=== PATIENT | male | born 1930 | race Caucasian/White ===

== ENCOUNTER 2016-09-30 16:55 | Inpatient (IN) | payer MEDICARE ==
[~2016-09-30] VITALS: Ht 182.9 cm; Wt 122.0 kg
[~2016-09-30 16:55] MED LIST: ACET325T9 PO; ASPI81TA2 PO; BISA10SU55 RC; CARB1TAB2 PO; GABA800T2 PO; GUAI-297 PO; HYDR-2666 PO; LEVE250T4 PO; LEVE500T6 PO; LEVO100T5 PO; MAG355OR11 PO; MAGN400O4 PO; METO25TA9 PO; PRAM0.255 PO; PRAM0.5T PO; SIMV20TA3 PO; TAMS0.4C97 PO; TRAM100T PO; TRAM50TA PO; TRAZ50TA15 PO
[2016-09-30] MEDS ORDERED: IV RINGERS,LACTATED 1000ML 1,000 ML IV SCH (17:28)
[2016-09-30] MEDS ORDERED: ONDANSETRON PF 4 MG/2 ML VIAL. IV ONE (17:30)
--- NOTE | 2016-09-30 17:34 | PHYS DOC ---
Past Medical History Past Medical History: A-Fib, GERD, Other Additional Past Medical Histor: Parkinson, bowel obstruction(12/2015) Past Surgical History: Other Additional Past Surgical Histo: bowel Alcohol Use: None Drug Use: None Adult General Chief Complaint Chief Complaint: NAUSEA/VOMITING/DIARRHA HPI HPI Patient is a 86 year old male who presents by EMS from [facility] with nausea, vomiting, abdominal pain and distention, and a couple of diarrheal stools, which started fairly suddenly about noon today. He is complaining of quite a bit of abdominal pain. No one else there is sick. He has not had fever or chills. He has had a bowel obstruction in the past he states. PCP Dr. Richard Watson Review of Systems Review of Systems Constitutional: Denies fever or chills [] Eyes: Denies change in visual acuity, redness, or eye pain [] HENT: Denies nasal congestion or sore throat [] Respiratory: Denies cough or shortness of breath [] Cardiovascular: Denies chest pain GI: As in history of present illness : Denies dysuria or hematuria [] Musculoskeletal: Denies back pain or joint pain [] Integument: Denies rash or skin lesions [] Neurologic: Denies headache, focal weakness or sensory changes [] Current Medications Current Medications Current Medications Medications (Trade) Dose Ordered Sig/Liam Start Time Stop Time Status Last Admin Dose Admin Fentanyl Citrate 50 mcg 50 mcg PRN Q15MIN PRN 09/30/16 17:30 10/01/16 17:29 09/30/16 19:35 50 MCG Lactated Ringer's (Iv Lactated Ringers) 1,000 ml @ 100 mls/hr Q10H 09/30/16 17:28 10/01/16 03:27 09/30/16 19:35 100 MLS/HR Ondansetron HCl (Zofran) 4 mg 1X ONCE 09/30/16 17:30 09/30/16 17:32 DC 09/30/16 17:44 4 MG Allergies Allergies Allergies Coded Allergies Type Severity Reaction Last Updated Verified No Known Medication Allergies Allergy Unknown 01/21/16 Yes Physical Exam Physical Exam Constitutional: Alert, mentating normally, appears uncomfortable, color good HENT: Normocephalic, atraumatic, bilateral external ears normal, nose normal. [] Eyes: conjunctiva normal, no discharge. [] Neck: Normal range of motion, no tenderness, supple, no stridor. [] Cardiovascular:Heart rate regular rhythm, no murmur [] Lungs & Thorax: Bilateral breath sounds clear to auscultation [] Abdomen: Significantly distended, increased tympany throughout, hyperactive bowel sounds, obstructive-sounding, tender to palpation throughout, nonlocalized , no rebound or guarding, no peritoneal findings Skin: Warm, dry, no erythema, no rash. [] Extremities: No tenderness, no cyanosis, no clubbing, ROM intact, trace pitting edema of both ankles Neurologic: Alert and oriented X 3, normal motor function, normal sensory function, no focal deficits noted. [] Current Patient Data Vital Signs Vital Signs Date Time Temp Pulse Resp B/P Pulse Ox O2 Delivery O2 Flow Rate FiO2 09/30/16 19:00 64 22 167/82 96 Room Air 09/30/16 17:45 3.0 09/30/16 17:00 98.4 98.4 Lab Values Laboratory Tests Test 09/30/16 17:25 White Blood Count 12.1x10^3/uL (4.0-11.0) H Red Blood Count 3.64x10^6/uL (4.30-5.70) L Hemoglobin 11.7g/dL (13.0-17.5) L Hematocrit 36.3% (39.0-53.0) L Mean Corpuscular Volume 100fL (79-100) Mean Corpuscular Hemoglobin 32pg (25-35) Mean Corpuscular Hemoglobin Concent 32g/dL (31-37) Red Cell Distribution Width 15.8% (11.5-14.5) H Platelet Count 251x10^3/uL (140-400) Neutrophils (%) (Auto) 86% (31-73) H Lymphocytes (%) (Auto) 7% (24-48) L Monocytes (%) (Auto) 5% (0-9) Eosinophils (%) (Auto) 1% (0-3) Basophils (%) (Auto) 0% (0-3) Neutrophils # (Auto) 10.4x10^3uL (1.8-7.7) H Lymphocytes # (Auto) 0.9x10^3/uL (1.0-4.8) L Monocytes # (Auto) 0.6x10^3/uL (0.0-1.1) Eosinophils # (Auto) 0.1x10^3/uL (0.0-0.7) Basophils # (Auto) 0.0x10^3/uL (0.0-0.2) Segmented Neutrophils % 69% (35-66) H Band Neutrophils % 13% (0-9) H Lymphocytes % 7% (24-48) L Atypical Lymphocytes % (Manual) 4% (0-0) H Monocytes % 5% (0-10) Eosinophils % 2% (0-5) Platelet Estimate Adequate (ADEQUATE) Anisocytosis Slight Ovalocytes Few Prothrombin Time 13.2SEC (11.7-14.0) Prothrombin Time INR 1.1 (0.8-1.1) PTT 31SEC (24-38) Sodium Level 142mmol/L (136-145) Potassium Level 3.8mmol/L (3.5-5.1) Chloride Level 104mmol/L (98-107) Carbon Dioxide Level 30mmol/L (21-32) Anion Gap 8 (6-14) Blood Urea Nitrogen 21mg/dL (8-26) Creatinine 1.8mg/dL (0.7-1.3) H Estimated GFR (Cockcroft-Gault) 36.0 BUN/Creatinine Ratio 12 (6-20) Glucose Level 147mg/dL (70-99) H Calcium Level 8.6mg/dL (8.5-10.1) Total Bilirubin 0.3mg/dL (0.2-1.0) Aspartate Amino Transferase (AST) 19U/L (15-37) Alanine Aminotransferase (ALT) 15U/L (16-63) L Alkaline Phosphatase 137U/L (46-116) H Total Protein 7.7g/dL (6.4-8.2) Albumin 3.4g/dL (3.4-5.0) Albumin/Globulin Ratio 0.8 (1.0-1.7) L Lipase 117U/L (73-393) Laboratory Tests 09/30/16 17:25 Laboratory Tests 09/30/16 17:25 EKG EKG [] Radiology/Procedures Radiology/Procedures CT scan of the abdomen and pelvis interpreted by the radiologist. Consistent with partial small bowel obstruction, no perforation or abscess identified. [] Course & Med Decision Making Course & Med Decision Making Pertinent Labs and Imaging studies reviewed. (See chart for details) 86-year-old male with fairly acute onset of nausea, vomiting, significant abdominal pain, distention, a couple of small loose stools. Clinically suspect small bowel obstruction. We will start some IV pain and nausea medicines and get a CT scan of his abdomen and pelvis. He is agreeable to that plan. CT scan does show a partial small bowel obstruction. The patient continued to have some vomiting in the ED despite IV antiemetics. I feel he might do better with NG tube placement, I discussed that with the patient and he is agreeable. I discussed the case with the patient's PCP, Dr. Watson, who will admit him. I wrote bridge orders. [] Dragon Disclaimer Dragon Disclaimer This electronic medical record was generated, in whole or in part, using a voice recognition dictation system. Departure Departure Impression: Primary Impression: SBO (small bowel obstruction) Disposition: 09 ADMITTED INPATIENT Admitting Physician: Richard Watson Condition: STABLE Referrals: RICHARD WATSON MD (PCP) JOSE ROMERO MD Sep 30, 2016 17:33
[2016-09-30 17:40] LABS: BASO % 0 % (0-3); EOS % 1 % (0-3); HEMATOCRIT 36.3 % (39.0-53.0); HEMOGLOBIN 11.7 g/dL (13.0-17.5); LYMPH # 0.9 x10^3/uL (1.0-4.8); LYMPH % 7 % (24-48); MEAN CORPUSCULAR HEMOGLOBIN 32 pg (25-35); MEAN CORPUSCULAR HGB CONC 32 g/dL (31-37); MEAN CORPUSCULAR VOLUME 100 fL (79-100); MONO % 5 % (0-9); NEUT % 86 % (31-73); PLATELET COUNT 251 x10^3/uL (140-400); RED BLOOD COUNT 3.64 x10^6/uL (4.30-5.70); RED CELL DISTRIBUTION WIDTH 15.8 % (11.5-14.5); WHITE BLOOD COUNT 12.1 x10^3/uL (4.0-11.0)
[2016-09-30] MEDS: FENTANYL PF 100 MCG/2 ML VIAL. IV PRN ×3 (17:45→22:08)
[2016-09-30 17:48] LABS: CALCIUM 8.6 mg/dL (8.5-10.1); CREATININE 1.8 mg/dL (0.7-1.3); INR 1.1 (0.8-1.1); POTASSIUM 3.8 mmol/L (3.5-5.1); PROTHROMBIN TIME PATIENT 13.2 SEC (11.7-14.0)
[2016-09-30 17:55] LABS: ALBUMIN 3.4 g/dL (3.4-5.0); ALBUMIN/GLOBULIN RATIO 0.8 (1.0-1.7); TOTAL BILIRUBIN 0.3 mg/dL (0.2-1.0); TOTAL PROTEIN 7.7 g/dL (6.4-8.2)
--- NOTE | 2016-09-30 18:29 | RAD ---
PROCEDURE CT abdomen and pelvis without intravenous contrast. HISTORY Nausea, vomiting, distention, pain. Suspect bowel obstruction. TECHNIQUE Helical CT of the abdomen and pelvis was performed without intravenous or oral contrast. Exposure: One or more of the following individualized dose reduction techniques were utilized for this examination: 1. Automated exposure control. 2. Adjustment of the mA and/or kV according to patient size. 3. Use of iterative reconstruction technique. COMPARISON CT abdomen pelvis December 02, 2015. FINDINGS Evaluation of solid organs is limited by lack of intravenous contrast. Evaluation of enteric structures may be limited by lack of oral contrast. Moderate hiatal hernia is seen. Liver, spleen, pancreas, and bilateral adrenal glands are unremarkable. Gallbladder is absent. Moderate right and moderate-severe left atrophy of the kidneys is similar to previous study. No obstruction is seen. Urinary bladder is unremarkable. Prostate is surgically absent. No free air or free fluid is identified. There are dilated small bowel loops measuring up to 4 centimeters in diameter. Gas is seen within the terminal ileum which contains gas and stool. There may be a relative transition point in the right lower quadrant involving the mid to distal ileum. Degenerative changes are present in spine. Penile prosthesis is seen. IMPRESSION 1. There is evidence of partial small bowel obstruction with dilated small bowel loops seen. There may be a relative transition point involving the mid to distal ileum. No perforation or abscess is identified at this time. Electronically signed by: Eliel Gutierrez MD (Sep 30, 2016 18:28:00)
[2016-09-30] MEDS ORDERED: ONDANSETRON PF 4 MG/2 ML VIAL. IV PRN (19:15)
[2016-09-30] MEDS ORDERED: FENTANYL PF 100 MCG/2 ML VIAL. IV ONE (19:15)
[2016-09-30] MEDS ORDERED: ACETAMINOPHEN 650 MG SUPP.RECT. PR PRN (19:30)
[2016-09-30] MEDS ORDERED: IV NORMAL SALINE 1000ML BAG 1,000 ML IV SCH (19:30)
[2016-09-30] MEDS ORDERED: BENZOCAINE ONE 20% MUCOSAL SPRAY. (19:51)
[2016-09-30 19:53] LABS: % EOS 2 % (0-5)
[2016-09-30 19:55] LABS: ANISOCYTOSIS SLIGHT; OVALOCYTES FEW; PLT ESTIMATE ADEQUATE (ADEQUATE)
[2016-09-30 21:10] VITALS: BP 179/92
--- NOTE | 2016-09-30 21:37 | RAD ---
PROCEDURE Abdomen radiograph. HISTORY NG tube placement. COMPARISON December 08, 2015. FINDINGS AP portable supine abdomen radiograph. Right-side of abdomen as well the pelvis has been excluded from the examination. Esophagogastric tube is present with tip projecting at the distal esophagus. Advancement is advised. IMPRESSION Esophagogastric tube tip projects at the distal esophagus. Advancement is advised. Electronically signed by: Eliel Gutierrez MD (Sep 30, 2016 21:36:11)
--- NOTE | 2016-09-30 21:55 | ACF ---
Admission Forms Criteria INTESTINAL OBSTRUCTION Clinical Indications for Admission to Inpatient Care (Place 'X' for any and all applicable criteria): Admission is indicated for ANY ONE of the following (1)(2)(3)(4)(5): [X ]I. Partial bowel obstruction [ ]II. Complete bowel obstruction Extended stay beyond goal length of stay may be needed for(1)(4)(12(: [ ]a) Identified etiology (eg, hernia, volvulus, cancer with obstruction) requiring intervention [ ]b) Gallstone ileus [ ]c) Surgical intervention [ ]d) Acute comorbid illness (eg, electrolyte imbalance, hypovolemia, renal failure) The original [employer] content created by [employer] has been revised. The portions of the content which have been revised are identified through the use of italic text or in bold, and [facility] [employer] has neither reviewed nor approved the modified material. All other unmodified content is copyright [employer]. Please see references footnoted in the original [employer] edition 2015 [employer]ISH [employer] Sep 30, 2016 21:55
[2016-09-30] MEDS: LEVETIRACETAM 500 MG in IV NORMAL SALINE 100ML 100 ML IV SCH (22:02)
[2016-09-30] MEDS: MORPHINE SULFATE 2 MG/ML DISP.SYRIN. IV PRN (23:18)
[2016-09-30 23:47] VITALS: BP 158/93
[2016-10-01] MEDS: FENTANYL PF 100 MCG/2 ML VIAL. IV PRN ×4 (00:20→16:54)
[2016-10-01] MEDS: POTASSIUM CL 20MEQ D5-0.45NACL 1,000 ML IV SCH ×4 (00:23→18:54)
[2016-10-01 03:00] VITALS: BP 131/69
[2016-10-01 04:42] LABS: BASO % 0 % (0-3); EOS % 0 % (0-3); HEMATOCRIT 34.1 % (39.0-53.0); HEMOGLOBIN 11.2 g/dL (13.0-17.5); LYMPH # 0.9 x10^3/uL (1.0-4.8); LYMPH % 13 % (24-48); MEAN CORPUSCULAR HEMOGLOBIN 32 pg (25-35); MEAN CORPUSCULAR HGB CONC 33 g/dL (31-37); MEAN CORPUSCULAR VOLUME 99 fL (79-100); MONO % 6 % (0-9); NEUT % 81 % (31-73); PLATELET COUNT 256 x10^3/uL (140-400); RED BLOOD COUNT 3.46 x10^6/uL (4.30-5.70); WHITE BLOOD COUNT 7.5 x10^3/uL (4.0-11.0)
[2016-10-01 04:59] LABS: CALCIUM 8.2 mg/dL (8.5-10.1); CREATININE 1.7 mg/dL (0.7-1.3); GFR 38.5
[2016-10-01] MEDS: MORPHINE SULFATE 2 MG/ML DISP.SYRIN. IV PRN ×4 (05:17→20:01)
[2016-10-01 07:00] VITALS: BP 157/88
--- NOTE | 2016-10-01 08:24 | RAD ---
Portable chest, 09/30/2016: History: Bowel obstruction Comparison is made to a study from 01/18/2016. Spinal stimulator leads extend into the lower thoracic spinal canal. An NG tube has been placed extending into the distal esophagus. The heart is enlarged. A hiatal hernia is present. There is calcific plaquing of aorta. The pulmonary vascularity is within normal limits. There are prominent epicardial fat pads, contributing to the density seen laterally in the left base. There are additional mild streaky basilar opacities compatible with atelectasis. The upper lung sim are clear. IMPRESSION: 1. The tip of the NG tube lies in the distal esophagus. 2. Cardiomegaly without vascular congestion. 3. Mild streaky bibasilar atelectasis
--- NOTE | 2016-10-01 08:33 | PDOC ---
Provider Note Provider Note history and physical dictated # [id number] RICHARD NJ MD Oct 01, 2016 08:33
[2016-10-01] MEDS: LEVETIRACETAM 500 MG in IV NORMAL SALINE 100ML 100 ML IV SCH ×2 (08:47→21:14)
[2016-10-01] MEDS: ENOXAPARIN 40 MG/0.4 ML DISP.SYRIN. SQ SCH (08:47)
--- NOTE | 2016-10-01 09:47 | HP ---
ADMIT DATE: 09/30/2016 HISTORY OF PRESENT ILLNESS: The patient is an 86-year-old white male who noted a one-day history of nausea, vomiting, abdominal pain, abdominal distention and sought help at the [facility] Emergency Room. CAT scan was compatible with a partial distal small-bowel obstruction. An NG tube was placed. He was started on IV fluids and IV analgesics and is n.p.o. and subsequently admitted to the hospital for further evaluation and treatment. He does have a history of a seizure disorder treated with Keppra, Parkinson disease, hypothyroidism, hypertension, chronic kidney disease and peripheral neuropathy. He has had bowel obstructions in the past and in fact in 1995 had a release of a small-bowel obstruction secondary to adhesions and also had a ventral abdominal hernia repair and release of small-bowel obstruction in 2008. He is therefore admitted for further evaluation of his partial small-bowel obstruction. He said he had two loose stools yesterday. ALLERGIES AND INTOLERANCES: CIPRO, NITROGLYCERIN AND PAXIL. MEDICATIONS: Include aspirin 81 mg every day, furosemide 20 mg every day, gabapentin 600 mg q.i.d., Keppra 250 mg b.i.d., levothyroxine 100 mcg every day, metoprolol succinate 25 mg every day, Mirapex 0.5 mg t.i.d., simvastatin 20 mg every day, Sinemet-CR 50/200 one tablet t.i.d., tamsulosin 0.4 mg everyday, tramadol 50 mg q.i.d. PAST MEDICAL HISTORY: Significant for hypertension, hypothyroidism, peripheral neuropathy, seizure disorder, Parkinson disease, depression, chronic kidney disease stage III, deep vein thrombosis in 2008, prostate cancer and pernicious anemia. He had a radical prostatectomy in 1993. 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 He had release of small-bowel obstruction secondary to adhesions in 1995 and a ventral abdominal hernia repair and release of small-bowel obstruction in 2008 and a bilateral orchiectomy in 2006, cardiac catheterization showing normal coronary arteries in 1997, an appendectomy in 1995, lumbar laminectomy in 2006. SOCIAL HISTORY: Lives in assisted living facility, uses a walker, does not drink alcohol nor does he smoke cigarettes. FAMILY HISTORY: Noncontributory. REVIEW OF SYSTEMS: GENERAL: There has been no fever, chills or sweats in the last 3 days. CARDIOVASCULAR: No chest pain. PULMONARY: No cough or shortness of breath. GASTROINTESTINAL: Nausea, vomiting, abdominal pain and abdominal distention. SKIN: No rashes. NEUROLOGIC: No focal weakness. He has Parkinson's disease. ENDOCRINE: No diabetes mellitus. Rest of systems reviewed is negative except as stated in history of present illness. PHYSICAL EXAMINATION: VITAL SIGNS: His temperature is 99 degrees, pulse is 98, respiratory rate 20, blood pressure 131/69, oxygen saturation 94% on 2 liters per nasal cannula. HEENT: Eyes: Gaze is conjugate. Extraocular muscles are intact. Mouth: Tongue is midline. NECK: There is no cervical lymphadenopathy or thyroid enlargement. HEART: Reveals an S1, S2. There is no S3 or murmur. LUNGS: Clear anteriorly. ABDOMEN: Distended, bowel sounds are minimal. His abdomen is tympanitic. It is nontender. He has got a couple of abdominal scars in the midline. EXTREMITIES: Lower extremities with trace edema. SKIN: No rashes. NEUROLOGIC: Revealed no focal weakness of the extremities. He has got a resting tremor in the upper extremities. LABORATORY DATA: Yesterday, his white count was 12.1, hemoglobin 11.7, platelet count 251,000, 69 polys and 13 bands. Today, his white count is 7.5, hemoglobin 11.2, platelet count 256,000, 81 polys and 13 lymphocytes. His sodium is 141, potassium 4.0, chloride 102, total CO2 was 33, BUN 22, creatinine 1.7, which is at baseline, blood sugar 154. Liver function tests were normal. Lipase was normal at 117. His INR was 1.1 with a PTT of 31. He had a KUB done today, which showed his NG tube is in the tip of the distal esophagus and needs to be advanced. He had a chest x-ray ordered and results are pending. CAT scan of the abdomen and pelvis done without contrast last night showed evidence of a partial small-bowel obstruction and distal small bowel loops were noted. No perforation or abscess was seen. I do not see his electrocardiogram report. IMPRESSION: 1. Small-bowel obstruction. 2. Seizure disorder. 3. Parkinson's disease. 4. Hypothyroidism. 5. Peripheral neuropathy. 6. Hypertension. 7. Chronic kidney disease stage III. 8. Leukocytosis, which is resolved. Apparently, he received a dose of IV . I do not see urinalysis. PLAN: At this time is to consult Dr. Killian for general surgery. We will continue his n.p.o. status, IV fluids, and also advance his nasogastric tube. Order an acute abdominal series for tomorrow. We will get an acute abdominal series today after nasogastric tube is advanced. We will also obtain urinalysis, urine culture. IV Keppra that he had received. So, we will hold off on any antibiotics since his white count is now normal. Obtain a urinalysis and urine culture. He has a low-grade fever of 99 degrees. He has not had any fever spikes. As mentioned, his white count is down today, so actually did not receive any antibiotics. RICHARD NJ MD DR: ANA/lexy JOB#: [id number] / [id number]
--- NOTE | 2016-10-01 11:03 | RAD ---
Portable abdomen, 10/01/2016, 8:36 AM: History: Bowel obstruction Comparison is made to yesterday evenings study. The tip of the NG tube again lies in the distal esophagus, unchanged. Spinal stimulator leads extend into the lower thoracic spinal canal. An inferior vena cava filter is in place at the L2-3 level. A surgical clamp is noted in the lower lumbar spine. Lower pelvic surgical clips are present. There is mild gaseous distention of the stomach. There is only mild gaseous distention of a couple small bowel loops in the left lower quadrant. A small amount of colonic gas is present. Scattered vascular calcifications are evident. IMPRESSION: 1. Mild persistent gaseous distention of several small bowel loops in the left lower quadrant. 2. Gaseous distention of the stomach. 3. Continued malposition of the NG tube with its tip lying in the distal esophagus. Note: The findings were called to the patient's nurse on the floor at 11:00 AM on 10/01/2016.
--- NOTE | 2016-10-01 11:15 | PDOC2 ---
CONSULT Date of Consult Date of Consult DATE: 10/01/16 TIME: 11:07 Reason for Consult Reason for Consult: small bowel obstruction Referring Physician Referring Physician: Dr Watson Identification/Chief Complaint Chief Complaint abdominal pain,distention, nausea, vomiting Source Source: Chart review, Patient History of Present Illness Reason for Visit: Mr Hayes is an 86 yo gentleman who lives in an assisted living facility with a hx of seizures and has had previous abdominal surgery. He was brought to the [facility] ED for abdominal pain, nausea, and vomiting. Evaluation suggests a distal partial SBO and we are asked to see him for same. He has had a previous similar episode some years back requiring surgery. Past Medical History Cardiovascular: HTN, Hyperlipidemia Pulmonary: No pertinent hx, Other CENTRAL NERVOUS SYSTEM: Periperal neuropathy, Seizure GI: Other Heme/Onc: No pertinent hx Hepatobiliary: No pertinent hx Psych: No pertinent hx Musculoskeletal: low back pain, Weakness Rheumatologic: No pertinent hx Infectious disease: No pertinent hx Renal/: No pertinent hx Endocrine: Diabetes Past Surgical History Past Surgical History: Appendectomy, Other (exploration for release SBO, hernia repair) Family History Family History: No Significant Social History No ALCOHOL: none Lives: Group Home Current Problem List Problem List Problems Medical Problems: (1) SBO (small bowel obstruction) Status: Acute Current Medications Current Medications Current Medications Fentanyl Citrate 50 mcg 50 mcg PRN Q15MIN PRN IV PAIN GREATER THAN 3/10 Last administered on 09/30/16at 19:35; Start 09/30/16 at 17:30; Stop 10/01/16 at 04 :24; Status DC Lactated Ringer's (Iv Lactated Ringers) 1,000 ml @ 100 mls/hr Q10H IV Last administered on 09/30/16at 19:35; Start 09/30/16 at 17:28; Stop 10/01/16 at 03 :27; Status DC Ondansetron HCl (Zofran) 4 mg 1X ONCE IV Last administered on 09/30/16at 17:44 ; Start 09/30/16 at 17:30; Stop 09/30/16 at 17:32; Status DC Fentanyl Citrate (Fentanyl 2ml Vial) 50 mcg 1X ONCE IV ; Start 09/30/16 at 19: 15; Stop 10/01/16 at 04:24; Status DC Ondansetron HCl (Zofran) 4 mg PRN Q8HRS PRN IV NAUSEA/VOMITING Last administered on 09/30/16at 22:07; Start 09/30/16 at 19:15; Stop 10/01/16 at 19 :14 Fentanyl Citrate 50 mcg 50 mcg PRN Q2HR PRN IV PAIN Last administered on at 08:44; Start 09/30/16 at 19:15; Stop 10/01/16 at 19:14 Sodium Chloride 1,000 ml @ 100 mls/hr Q10H IV ; Start 09/30/16 at 19:30; Stop 10/01/16 at 04:24; Status DC Potassium Chloride/Dextrose/ Sod Cl (KCl 20 Meq In D5W-1/2 NS) 1,000 ml @ 125 mls/hr Q8H IV Last administered on 10/01/16at 08:57; Start 09/30/16 at 20:00 Enoxaparin Sodium 40 mg 40 mg Q24H SQ Last administered on 10/01/16at 08:47; Start 10/01/16 at 09:00 Levetiracetam/ Sodium Chloride (Keppra/Iv Sodium Chloride 0.9% 100ml) 105 ml @ 400 mls/hr Q12HR IV Last administered on 10/01/16at 08:47; Start 09/30/16 at 21:00 Morphine Sulfate 2 mg PRN Q4HRS PRN IV SEVERE PAIN Last administered on at 10:45; Start 09/30/16 at 19:30 Acetaminophen (Tylenol) 650 mg PRN Q6HRS PRN [place] MILD PAIN / TEMP; Start at 19:30 Ondansetron HCl (Zofran) 4 mg PRN Q6HRS PRN IV NAUSEA/VOMITING; Start at 19:30 Benzocaine (Hurricaine One) 1 spray STK-MED ONCE .ROUTE ; Start 09/30/16 at 19: 51; Stop 09/30/16 at 19:52; Status DC Active Scripts Active Hydrocodone-Apap 5-325 (Hydrocodone Bit/Acetaminophen) 1 Each Tablet 1 Tab PO PRN Q6HRS PRN Metoprolol Succinate ( Xl ) (Metoprolol Succinate) 25 Mg Tab.er.24h 25 Mg PO DAILY Reported Flomax (Tamsulosin Hcl) 0.4 Mg Cap.er.24h 1 Cap PO QHS Tramadol Hcl 100 Mg Tab.er.24h 100 Mg PO QID Levetiracetam 250 Mg Tablet 250 Mg PO BID Dulcolax (Bisacodyl) 10 Mg Supp.rect 10 Mg RC PRN DAILY PRN Maalox Advanced Suspension (Mag Hydrox/Al Hydrox/Simeth) 770 Ml Oral.susp 30 Ml PO Q2HR PRN Milk Of Magnesia (Magnesium Hydroxide) 400 Mg/5 Ml Oral.susp 30 Ml PO DAILY PRN Robitussin Cough-Chest Dm Liq (Guaifenesin/Dextromethorphan) 118 Ml Liquid 10 Ml PO Q4HRS PRN Trazodone Hcl 50 Mg Tablet 1 Tab PO QHS Tylenol (Acetaminophen) 325 Mg Tablet 650 Mg PO Q6HRS PRN Pramipexole Dihydrochloride (Pramipexole Di-Hcl) 0.5 Mg Tablet 0.5 Mg PO TID Simvastatin 20 Mg Tablet 1 Tab PO QHS Levothyroxine Sodium 100 Mcg Tablet 1 Tab PO DAILY Gabapentin 800 Mg Tablet 800 Mg PO QID Sinemet 25-100 Mg Tablet (Carbidopa/Levodopa) 1 Each Tablet 2 Tab PO TID Aspirin 81 Mg Tab.chew 1 Tab PO DAILY Allergies Allergies: Coded Allergies: I S O L A T I O N *CONTACT* (Verified Allergy, Unknown, 10/01/16) mrsa No Known Medication Allergies (Verified Allergy, Unknown, 01/21/16) ROS Gastrointestinal: Yes Abdominal Pain, Yes Nausea, Yes Vomiting Physical Exam General: Alert, Cooperative, No acute distress HEENT: EOMI, Other (NG in place with bilio-heme return) Lungs: Clear to auscultation Heart: Regular rate Abdomen: Soft, Other (mildly distended, tympanitic, minimally TTP, well healed old surgical scars) Extremities: No tenderness/swelling Skin: No rashes Neuro: Normal speech Psych/Mental Status: Mental status NL Vitals VITALS Vital Signs Date Time Temp Pulse Resp B/P Pulse Ox O2 Delivery O2 Flow Rate FiO2 10/01/16 10:45 18 Nasal Cannula 2.0 10/01/16 07:00 98.0 100 157/88 94 98.0 Labs Labs Laboratory Tests Test 09/30/16 17:25 10/01/16 04:07 White Blood Count 12.1x10^3/uL (4.0-11.0) 7.5x10^3/uL (4.0-11.0) Red Blood Count 3.64x10^6/uL (4.30-5.70) 3.46x10^6/uL (4.30-5.70) Hemoglobin 11.7g/dL (13.0-17.5) 11.2g/dL (13.0-17.5) Hematocrit 36.3% (39.0-53.0) 34.1% (39.0-53.0) Mean Corpuscular Volume 100fL (79-100) 99fL (79-100) Mean Corpuscular Hemoglobin 32pg (25-35) 32pg (25-35) Mean Corpuscular Hemoglobin Concent 32g/dL (31-37) 33g/dL (31-37) Red Cell Distribution Width 15.8% (11.5-14.5) 16.0% (11.5-14.5) Platelet Count 251x10^3/uL (140-400) 256x10^3/uL (140-400) Neutrophils (%) (Auto) 86% (31-73) 81% (31-73) Lymphocytes (%) (Auto) 7% (24-48) 13% (24-48) Monocytes (%) (Auto) 5% (0-9) 6% (0-9) Eosinophils (%) (Auto) 1% (0-3) 0% (0-3) Basophils (%) (Auto) 0% (0-3) 0% (0-3) Neutrophils # (Auto) 10.4x10^3uL (1.8-7.7) 6.1x10^3uL (1.8-7.7) Lymphocytes # (Auto) 0.9x10^3/uL (1.0-4.8) 0.9x10^3/uL (1.0-4.8) Monocytes # (Auto) 0.6x10^3/uL (0.0-1.1) 0.5x10^3/uL (0.0-1.1) Eosinophils # (Auto) 0.1x10^3/uL (0.0-0.7) 0.0x10^3/uL (0.0-0.7) Basophils # (Auto) 0.0x10^3/uL (0.0-0.2) 0.0x10^3/uL (0.0-0.2) Segmented Neutrophils % 69% (35-66) Band Neutrophils % 13% (0-9) Lymphocytes % 7% (24-48) Atypical Lymphocytes % (Manual) 4% (0-0) Monocytes % 5% (0-10) Eosinophils % 2% (0-5) Platelet Estimate Adequate (ADEQUATE) Anisocytosis Slight Ovalocytes Few Prothrombin Time 13.2SEC (11.7-14.0) Prothromb Time International Ratio 1.1 (0.8-1.1) Activated Partial Thromboplast Time 31SEC (24-38) Sodium Level 142mmol/L (136-145) 141mmol/L (136-145) Potassium Level 3.8mmol/L (3.5-5.1) 4.0mmol/L (3.5-5.1) Chloride Level 104mmol/L (98-107) 102mmol/L (98-107) Carbon Dioxide Level 30mmol/L (21-32) 33mmol/L (21-32) Anion Gap 8 (6-14) 6 (6-14) Blood Urea Nitrogen 21mg/dL (8-26) 22mg/dL (8-26) Creatinine 1.8mg/dL (0.7-1.3) 1.7mg/dL (0.7-1.3) Estimated GFR (Cockcroft-Gault) 36.0 38.5 BUN/Creatinine Ratio 12 (6-20) Glucose Level 147mg/dL (70-99) 154mg/dL (70-99) Calcium Level 8.6mg/dL (8.5-10.1) 8.2mg/dL (8.5-10.1) Total Bilirubin 0.3mg/dL (0.2-1.0) Aspartate Amino Transf (AST/SGOT) 19U/L (15-37) Alanine Aminotransferase (ALT/SGPT) 15U/L (16-63) Alkaline Phosphatase 137U/L (46-116) Total Protein 7.7g/dL (6.4-8.2) Albumin 3.4g/dL (3.4-5.0) Albumin/Globulin Ratio 0.8 (1.0-1.7) Lipase 117U/L (73-393) Laboratory Tests Test 09/30/16 17:25 10/01/16 04:07 White Blood Count 12.1x10^3/uL (4.0-11.0) 7.5x10^3/uL (4.0-11.0) Red Blood Count 3.64x10^6/uL (4.30-5.70) 3.46x10^6/uL (4.30-5.70) Hemoglobin 11.7g/dL (13.0-17.5) 11.2g/dL (13.0-17.5) Hematocrit 36.3% (39.0-53.0) 34.1% (39.0-53.0) Mean Corpuscular Volume 100fL (79-100) 99fL (79-100) Mean Corpuscular Hemoglobin 32pg (25-35) 32pg (25-35) Mean Corpuscular Hemoglobin Concent 32g/dL (31-37) 33g/dL (31-37) Red Cell Distribution Width 15.8% (11.5-14.5) 16.0% (11.5-14.5) Platelet Count 251x10^3/uL (140-400) 256x10^3/uL (140-400) Neutrophils (%) (Auto) 86% (31-73) 81% (31-73) Lymphocytes (%) (Auto) 7% (24-48) 13% (24-48) Monocytes (%) (Auto) 5% (0-9) 6% (0-9) Eosinophils (%) (Auto) 1% (0-3) 0% (0-3) Basophils (%) (Auto) 0% (0-3) 0% (0-3) Neutrophils # (Auto) 10.4x10^3uL (1.8-7.7) 6.1x10^3uL (1.8-7.7) Lymphocytes # (Auto) 0.9x10^3/uL (1.0-4.8) 0.9x10^3/uL (1.0-4.8) Monocytes # (Auto) 0.6x10^3/uL (0.0-1.1) 0.5x10^3/uL (0.0-1.1) Eosinophils # (Auto) 0.1x10^3/uL (0.0-0.7) 0.0x10^3/uL (0.0-0.7) Basophils # (Auto) 0.0x10^3/uL (0.0-0.2) 0.0x10^3/uL (0.0-0.2) Segmented Neutrophils % 69% (35-66) Band Neutrophils % 13% (0-9) Lymphocytes % 7% (24-48) Atypical Lymphocytes % (Manual) 4% (0-0) Monocytes % 5% (0-10) Eosinophils % 2% (0-5) Platelet Estimate Adequate (ADEQUATE) Anisocytosis Slight Ovalocytes Few Prothrombin Time 13.2SEC (11.7-14.0) Prothromb Time International Ratio 1.1 (0.8-1.1) Activated Partial Thromboplast Time 31SEC (24-38) Sodium Level 142mmol/L (136-145) 141mmol/L (136-145) Potassium Level 3.8mmol/L (3.5-5.1) 4.0mmol/L (3.5-5.1) Chloride Level 104mmol/L (98-107) 102mmol/L (98-107) Carbon Dioxide Level 30mmol/L (21-32) 33mmol/L (21-32) Anion Gap 8 (6-14) 6 (6-14) Blood Urea Nitrogen 21mg/dL (8-26) 22mg/dL (8-26) Creatinine 1.8mg/dL (0.7-1.3) 1.7mg/dL (0.7-1.3) Estimated GFR (Cockcroft-Gault) 36.0 38.5 BUN/Creatinine Ratio 12 (6-20) Glucose Level 147mg/dL (70-99) 154mg/dL (70-99) Calcium Level 8.6mg/dL (8.5-10.1) 8.2mg/dL (8.5-10.1) Total Bilirubin 0.3mg/dL (0.2-1.0) Aspartate Amino Transf (AST/SGOT) 19U/L (15-37) Alanine Aminotransferase (ALT/SGPT) 15U/L (16-63) Alkaline Phosphatase 137U/L (46-116) Total Protein 7.7g/dL (6.4-8.2) Albumin 3.4g/dL (3.4-5.0) Albumin/Globulin Ratio 0.8 (1.0-1.7) Lipase 117U/L (73-393) Images Images CT scan of the abdomen/pelvis reviewed. Assessment/Plan Assessment/Plan small bowel obstruction seizure disorder HPT Continue NG serial exams, x-rays Hopefully he can resolve the process non operatively. Thank you for asking us to see this nice gentleman. Will follow him with you during his hospitalization FRAN GARCIA MD Oct 01, 2016 11:15
[2016-10-01 11:31] VITALS: BP 143/72
--- NOTE | 2016-10-01 15:09 | RAD ---
Portable acute abdomen series, 3 views, 10/01/2016: History: Check NG tube, bowel obstruction Comparison is made to a study from earlier the same day at 8:36 AM. The NG tube has been advanced and it now extends into the antrum of the stomach. The stomach has been decompressed. There is mild residual gaseous prominence of several small bowel loops in the upper pelvis. No free air seen in the abdomen. An inferior vena cava filter is in place. Spinal stimulator leads extend into the lower thoracic spinal canal. The heart size and pulmonary vascularity are normal. There is mild ongoing linear basilar atelectasis. The upper lung sim remain clear. No significant pleural fluid is evident. IMPRESSION: 1. The NG tube is now in satisfactory position. 2. Mild unchanged gaseous distention of small bowel loops in the upper pelvis. 3. Mild bibasilar atelectasis.
[2016-10-01 15:38] VITALS: BP 159/78
[2016-10-01 19:00] VITALS: BP 172/75
[2016-10-01] MEDS: ONDANSETRON PF 4 MG/2 ML VIAL. IV PRN (20:01)
[2016-10-01 23:09] VITALS: BP 164/75
[2016-10-02] MEDS: MORPHINE SULFATE 4 MG/ML DISP.SYRIN. IV PRN ×6 (00:10→21:00)
[2016-10-02 03:12] VITALS: BP 146/74
[2016-10-02] MEDS: POTASSIUM CL 20MEQ D5-0.45NACL 1,000 ML IV SCH ×3 (03:25→20:46)
[2016-10-02 04:39] LABS: BASO % 0 % (0-3); EOS % 1 % (0-3); HEMATOCRIT 32.9 % (39.0-53.0); HEMOGLOBIN 10.7 g/dL (13.0-17.5); LYMPH # 1.5 x10^3/uL (1.0-4.8); LYMPH % 21 % (24-48); MEAN CORPUSCULAR HEMOGLOBIN 33 pg (25-35); MEAN CORPUSCULAR HGB CONC 32 g/dL (31-37); MEAN CORPUSCULAR VOLUME 101 fL (79-100); MONO % 8 % (0-9); NEUT % 70 % (31-73); PLATELET COUNT 235 x10^3/uL (140-400); RED BLOOD COUNT 3.25 x10^6/uL (4.30-5.70); RED CELL DISTRIBUTION WIDTH 15.8 % (11.5-14.5); WHITE BLOOD COUNT 7.2 x10^3/uL (4.0-11.0)
[2016-10-02 04:49] LABS: CALCIUM 8.5 mg/dL (8.5-10.1); CREATININE 1.6 mg/dL (0.7-1.3); GFR 41.3; POTASSIUM 3.9 mmol/L (3.5-5.1)
[2016-10-02 07:00] VITALS: BP 144/85
[2016-10-02] MEDS: LEVETIRACETAM 500 MG in IV NORMAL SALINE 100ML 100 ML IV SCH ×2 (08:35→21:00)
[2016-10-02] MEDS: ENOXAPARIN 40 MG/0.4 ML DISP.SYRIN. SQ SCH (08:36)
--- NOTE | 2016-10-02 08:49 | RAD ---
Acute abdomen series, 3 views, 10/02/2016: History: Small bowel obstruction Comparison is made to yesterday's study. The NG tube extends into the distal aspect of the stomach. Gas is present in large and small bowel in a nonspecific pattern. There is no current radiographic evidence of significant bowel obstruction. No free air is seen in the abdomen. A spinal stimulator and an inferior vena cava filter are again noted. Postsurgical changes are again evident in the lower lumbar spine and lower pelvis. The heart size and pulmonary vascularity are within normal limits. There is minimal basilar atelectasis and/or scarring. No pleural fluid is evident. IMPRESSION: 1. The NG tube is in satisfactory position. 2. No acute abdominal abnormality is detected.
--- NOTE | 2016-10-02 09:09 | PDOC ---
PROGRESS NOTES Subjective Subjective some leg pain. denies abdominal pain. acute abdominal series now shows resolution of bowel obstruction. he has bowel sounds. denies BM or flatus. lab reviewed. Objective Objective Vital Signs Date Time Temp Pulse Resp B/P Pulse Ox O2 Delivery O2 Flow Rate FiO2 10/02/16 08:36 94 Nasal Cannula 2.0 10/02/16 07:00 97.5 139 12 144/85 97.5 Intake and Output 10/02/16 06:59 Intake Total 0 ml Output Total 1850 ml Balance -1850 ml Intake Oral 0 ml Output Gastric Drainage Total 1850 ml # Voids 5 Physical Exam Abdomen: Normal bowel sounds, Soft, No tenderness Heart: Regular rate, Normal S1, Normal S2 Extremities: No edema, Other (trace edema legs) General: Alert HEENT: Atraumatic Lungs: Clear to auscultation Neuro: Normal speech Psych/Mental Status: Mood NL Skin: No rashes Assessment Assessment Problems Medical Problems:1. Small-bowel obstruction resolved 2. Seizure disorder. 3. Parkinson's disease. 4. Hypothyroidism. 5. Peripheral neuropathy. 6. Hypertension. 7. Chronic kidney disease stage III. (1) SBO (small bowel obstruction) Status: Acute Plan Plan of Care clamp ng tube if okay with general surgery iv fluids npo for now. will defer diet per general surgery analgesics prn Comment Review of Relevant I have reviewed the following items [place] (where applicable) has been applied. Labs Laboratory Tests Test 09/30/16 17:25 10/01/16 02:30 10/01/16 04:07 10/02/16 04:08 White Blood Count 12.1x10^3/uL (4.0-11.0) 7.5x10^3/uL (4.0-11.0) 7.2x10^3/uL (4.0-11.0) Red Blood Count 3.64x10^6/uL (4.30-5.70) 3.46x10^6/uL (4.30-5.70) 3.25x10^6/uL (4.30-5.70) Hemoglobin 11.7g/dL (13.0-17.5) 11.2g/dL (13.0-17.5) 10.7g/dL (13.0-17.5) Hematocrit 36.3% (39.0-53.0) 34.1% (39.0-53.0) 32.9% (39.0-53.0) Mean Corpuscular Volume 100fL (79-100) 99fL (79-100) 101fL (79-100) Mean Corpuscular Hemoglobin 32pg (25-35) 32pg (25-35) 33pg (25-35) Mean Corpuscular Hemoglobin Concent 32g/dL (31-37) 33g/dL (31-37) 32g/dL (31-37) Red Cell Distribution Width 15.8% (11.5-14.5) 16.0% (11.5-14.5) 15.8% (11.5-14.5) Platelet Count 251x10^3/uL (140-400) 256x10^3/uL (140-400) 235x10^3/uL (140-400) Neutrophils (%) (Auto) 86% (31-73) 81% (31-73) 70% (31-73) Lymphocytes (%) (Auto) 7% (24-48) 13% (24-48) 21% (24-48) Monocytes (%) (Auto) 5% (0-9) 6% (0-9) 8% (0-9) Eosinophils (%) (Auto) 1% (0-3) 0% (0-3) 1% (0-3) Basophils (%) (Auto) 0% (0-3) 0% (0-3) 0% (0-3) Neutrophils # (Auto) 10.4x10^3uL (1.8-7.7) 6.1x10^3uL (1.8-7.7) 5.0x10^3uL (1.8-7.7) Lymphocytes # (Auto) 0.9x10^3/uL (1.0-4.8) 0.9x10^3/uL (1.0-4.8) 1.5x10^3/uL (1.0-4.8) Monocytes # (Auto) 0.6x10^3/uL (0.0-1.1) 0.5x10^3/uL (0.0-1.1) 0.6x10^3/uL (0.0-1.1) Eosinophils # (Auto) 0.1x10^3/uL (0.0-0.7) 0.0x10^3/uL (0.0-0.7) 0.1x10^3/uL (0.0-0.7) Basophils # (Auto) 0.0x10^3/uL (0.0-0.2) 0.0x10^3/uL (0.0-0.2) 0.0x10^3/uL (0.0-0.2) Segmented Neutrophils % 69% (35-66) Band Neutrophils % 13% (0-9) Lymphocytes % 7% (24-48) Atypical Lymphocytes % (Manual) 4% (0-0) Monocytes % 5% (0-10) Eosinophils % 2% (0-5) Platelet Estimate Adequate (ADEQUATE) Anisocytosis Slight Ovalocytes Few Prothrombin Time 13.2SEC (11.7-14.0) Prothromb Time International Ratio 1.1 (0.8-1.1) Activated Partial Thromboplast Time 31SEC (24-38) Sodium Level 142mmol/L (136-145) 141mmol/L (136-145) 141mmol/L (136-145) Potassium Level 3.8mmol/L (3.5-5.1) 4.0mmol/L (3.5-5.1) 3.9mmol/L (3.5-5.1) Chloride Level 104mmol/L (98-107) 102mmol/L (98-107) 105mmol/L (98-107) Carbon Dioxide Level 30mmol/L (21-32) 33mmol/L (21-32) 36mmol/L (21-32) Anion Gap 8 (6-14) 6 (6-14) 0 (6-14) Blood Urea Nitrogen 21mg/dL (8-26) 22mg/dL (8-26) 17mg/dL (8-26) Creatinine 1.8mg/dL (0.7-1.3) 1.7mg/dL (0.7-1.3) 1.6mg/dL (0.7-1.3) Estimated GFR (Cockcroft-Gault) 36.0 38.5 41.3 BUN/Creatinine Ratio 12 (6-20) Glucose Level 147mg/dL (70-99) 154mg/dL (70-99) 127mg/dL (70-99) Calcium Level 8.6mg/dL (8.5-10.1) 8.2mg/dL (8.5-10.1) 8.5mg/dL (8.5-10.1) Total Bilirubin 0.3mg/dL (0.2-1.0) Aspartate Amino Transf (AST/SGOT) 19U/L (15-37) Alanine Aminotransferase (ALT/SGPT) 15U/L (16-63) Alkaline Phosphatase 137U/L (46-116) Total Protein 7.7g/dL (6.4-8.2) Albumin 3.4g/dL (3.4-5.0) Albumin/Globulin Ratio 0.8 (1.0-1.7) Lipase 117U/L (73-393) Nasal Screen MRSA (PCR) Positive (Negative) Laboratory Tests Test 10/02/16 04:08 White Blood Count 7.2x10^3/uL (4.0-11.0) Red Blood Count 3.25x10^6/uL (4.30-5.70) Hemoglobin 10.7g/dL (13.0-17.5) Hematocrit 32.9% (39.0-53.0) Mean Corpuscular Volume 101fL (79-100) Mean Corpuscular Hemoglobin 33pg (25-35) Mean Corpuscular Hemoglobin Concent 32g/dL (31-37) Red Cell Distribution Width 15.8% (11.5-14.5) Platelet Count 235x10^3/uL (140-400) Neutrophils (%) (Auto) 70% (31-73) Lymphocytes (%) (Auto) 21% (24-48) Monocytes (%) (Auto) 8% (0-9) Eosinophils (%) (Auto) 1% (0-3) Basophils (%) (Auto) 0% (0-3) Neutrophils # (Auto) 5.0x10^3uL (1.8-7.7) Lymphocytes # (Auto) 1.5x10^3/uL (1.0-4.8) Monocytes # (Auto) 0.6x10^3/uL (0.0-1.1) Eosinophils # (Auto) 0.1x10^3/uL (0.0-0.7) Basophils # (Auto) 0.0x10^3/uL (0.0-0.2) Sodium Level 141mmol/L (136-145) Potassium Level 3.9mmol/L (3.5-5.1) Chloride Level 105mmol/L (98-107) Carbon Dioxide Level 36mmol/L (21-32) Anion Gap 0 (6-14) Blood Urea Nitrogen 17mg/dL (8-26) Creatinine 1.6mg/dL (0.7-1.3) Estimated GFR (Cockcroft-Gault) 41.3 Glucose Level 127mg/dL (70-99) Calcium Level 8.5mg/dL (8.5-10.1) Medications Current Medications Fentanyl Citrate 50 mcg 50 mcg PRN Q15MIN PRN IV PAIN GREATER THAN 3/10 Last administered on 09/30/16at 19:35; Start 09/30/16 at 17:30; Stop 10/01/16 at 04 :24; Status DC Lactated Ringer's (Iv Lactated Ringers) 1,000 ml @ 100 mls/hr Q10H IV Last administered on 09/30/16at 19:35; Start 09/30/16 at 17:28; Stop 10/01/16 at 03 :27; Status DC Ondansetron HCl (Zofran) 4 mg 1X ONCE IV Last administered on 09/30/16at 17:44 ; Start 09/30/16 at 17:30; Stop 09/30/16 at 17:32; Status DC Fentanyl Citrate (Fentanyl 2ml Vial) 50 mcg 1X ONCE IV ; Start 09/30/16 at 19: 15; Stop 10/01/16 at 04:24; Status DC Ondansetron HCl (Zofran) 4 mg PRN Q8HRS PRN IV NAUSEA/VOMITING Last administered on 09/30/16at 22:07; Start 09/30/16 at 19:15; Stop 10/01/16 at 19 :14; Status DC Fentanyl Citrate 50 mcg 50 mcg PRN Q2HR PRN IV PAIN Last administered on at 16:54; Start 09/30/16 at 19:15; Stop 10/01/16 at 19:14; Status DC Sodium Chloride 1,000 ml @ 100 mls/hr Q10H IV ; Start 09/30/16 at 19:30; Stop 10/01/16 at 04:24; Status DC Potassium Chloride/Dextrose/ Sod Cl (KCl 20 Meq In D5W-1/2 NS) 1,000 ml @ 125 mls/hr Q8H IV Last administered on 10/02/16at 03:25; Start 09/30/16 at 20:00 Enoxaparin Sodium 40 mg 40 mg Q24H SQ Last administered on 10/02/16at 08:36; Start 10/01/16 at 09:00 Levetiracetam/ Sodium Chloride (Keppra/Iv Sodium Chloride 0.9% 100ml) 105 ml @ 400 mls/hr Q12HR IV Last administered on 10/02/16at 08:35; Start 09/30/16 at 21:00 Morphine Sulfate 2 mg PRN Q4HRS PRN IV SEVERE PAIN Last administered on at 20:01; Start 09/30/16 at 19:30 Acetaminophen (Tylenol) 650 mg PRN Q6HRS PRN [place] MILD PAIN / TEMP; Start at 19:30 Ondansetron HCl (Zofran) 4 mg PRN Q6HRS PRN IV NAUSEA/VOMITING Last administered on 10/01/16at 20:01; Start 09/30/16 at 19:30 Benzocaine (Hurricaine One) 1 spray STK-MED ONCE .ROUTE ; Start 09/30/16 at 19: 51; Stop 09/30/16 at 19:52; Status DC Morphine Sulfate 4 mg PRN Q4HRS PRN IV PAIN Last administered on 10/02/16at 08: 36; Start 10/01/16 at 20:00 Active Scripts Active Hydrocodone-Apap 5-325 (Hydrocodone Bit/Acetaminophen) 1 Each Tablet 1 Tab PO PRN Q6HRS PRN Metoprolol Succinate ( Xl ) (Metoprolol Succinate) 25 Mg Tab.er.24h 25 Mg PO DAILY Reported Flomax (Tamsulosin Hcl) 0.4 Mg Cap.er.24h 1 Cap PO QHS Tramadol Hcl 100 Mg Tab.er.24h 100 Mg PO QID Levetiracetam 250 Mg Tablet 250 Mg PO BID Dulcolax (Bisacodyl) 10 Mg Supp.rect 10 Mg RC PRN DAILY PRN Maalox Advanced Suspension (Mag Hydrox/Al Hydrox/Simeth) 770 Ml Oral.susp 30 Ml PO Q2HR PRN Milk Of Magnesia (Magnesium Hydroxide) 400 Mg/5 Ml Oral.susp 30 Ml PO DAILY PRN Robitussin Cough-Chest Dm Liq (Guaifenesin/Dextromethorphan) 118 Ml Liquid 10 Ml PO Q4HRS PRN Trazodone Hcl 50 Mg Tablet 1 Tab PO QHS Tylenol (Acetaminophen) 325 Mg Tablet 650 Mg PO Q6HRS PRN Pramipexole Dihydrochloride (Pramipexole Di-Hcl) 0.5 Mg Tablet 0.5 Mg PO TID Simvastatin 20 Mg Tablet 1 Tab PO QHS Levothyroxine Sodium 100 Mcg Tablet 1 Tab PO DAILY Gabapentin 800 Mg Tablet 800 Mg PO QID Sinemet 25-100 Mg Tablet (Carbidopa/Levodopa) 1 Each Tablet 2 Tab PO TID Aspirin 81 Mg Tab.chew 1 Tab PO DAILY Vitals/I & O Vital Sign - Last 24 Hours 10/01/16 10/01/16 10/01/16 10/01/16 10:45 11:31 15:38 16:54 Temp 97.8 97.9 97.8 97.9 Pulse 101 97 Resp 18 20 20 16 B/P 143/72 159/78 Pulse Ox 100 94 O2 Delivery Nasal Cannula Nasal Cannula Nasal Cannula Nasal Cannula O2 Flow Rate 2.0 2.0 2.0 2.0 10/01/16 10/01/16 10/01/16 10/01/16 17:24 18:48 19:00 20:00 Temp 98.2 98.2 Pulse 100 Resp 16 18 16 B/P 172/75 Pulse Ox 92 O2 Delivery Nasal Cannula Nasal Cannula Nasal Cannula Nasal Cannula O2 Flow Rate 2.0 2.0 2.0 2.0 10/01/16 10/01/16 10/01/16 10/02/16 20:01 20:31 23:09 00:10 Temp 97.9 97.9 Pulse 103 Resp 20 20 18 20 B/P 164/75 Pulse Ox 92 92 94 94 O2 Delivery Nasal Cannula Nasal Cannula Nasal Cannula Nasal Cannula O2 Flow Rate 2.0 2.0 2.0 2.0 10/02/16 10/02/16 10/02/16 10/02/16 03:12 04:35 05:05 07:00 Temp 97.9 97.5 97.9 97.5 Pulse 90 139 Resp 16 20 20 12 B/P 146/74 144/85 Pulse Ox 94 94 94 92 O2 Delivery Nasal Cannula Nasal Cannula Nasal Cannula Nasal Cannula O2 Flow Rate 2.0 2.0 2.0 2.0 10/02/16 08:36 Pulse Ox 94 O2 Delivery Nasal Cannula O2 Flow Rate 2.0 Intake and Output 10/01/16 10/01/16 10/02/16 14:59 22:59 06:59 Intake Total 0 ml Output Total 1150 ml 700 ml Balance -1150 ml -700 ml RICHARD [place] MD Oct 02, 2016 09:09
[2016-10-02 11:00] VITALS: BP 154/71
--- NOTE | 2016-10-02 12:38 | PDOC ---
SURGICAL PROGRESS NOTE Subjective back pain and feet pain no abdominal pain no flatus or stool Vital Signs Vital Signs Date Time Temp Pulse Resp B/P Pulse Ox O2 Delivery O2 Flow Rate FiO2 10/02/16 12:14 94 Nasal Cannula 2.0 10/02/16 11:00 98.6 92 16 154/71 98.6 I&O Intake and Output 10/02/16 06:59 Intake Total 0 ml Output Total 1850 ml Balance -1850 ml Intake Oral 0 ml Output Gastric Drainage Total 1850 ml # Voids 5 General: Alert, Oriented X3, Cooperative, No acute distress HEENT: Other (ng brown drainage> 50cc ) Abdomen: Soft, Other (mild distention ) Labs Laboratory Tests Test 09/30/16 17:25 10/01/16 02:30 10/01/16 04:07 10/02/16 04:08 White Blood Count 12.1x10^3/uL (4.0-11.0) 7.5x10^3/uL (4.0-11.0) 7.2x10^3/uL (4.0-11.0) Red Blood Count 3.64x10^6/uL (4.30-5.70) 3.46x10^6/uL (4.30-5.70) 3.25x10^6/uL (4.30-5.70) Hemoglobin 11.7g/dL (13.0-17.5) 11.2g/dL (13.0-17.5) 10.7g/dL (13.0-17.5) Hematocrit 36.3% (39.0-53.0) 34.1% (39.0-53.0) 32.9% (39.0-53.0) Mean Corpuscular Volume 100fL (79-100) 99fL (79-100) 101fL (79-100) Mean Corpuscular Hemoglobin 32pg (25-35) 32pg (25-35) 33pg (25-35) Mean Corpuscular Hemoglobin Concent 32g/dL (31-37) 33g/dL (31-37) 32g/dL (31-37) Red Cell Distribution Width 15.8% (11.5-14.5) 16.0% (11.5-14.5) 15.8% (11.5-14.5) Platelet Count 251x10^3/uL (140-400) 256x10^3/uL (140-400) 235x10^3/uL (140-400) Neutrophils (%) (Auto) 86% (31-73) 81% (31-73) 70% (31-73) Lymphocytes (%) (Auto) 7% (24-48) 13% (24-48) 21% (24-48) Monocytes (%) (Auto) 5% (0-9) 6% (0-9) 8% (0-9) Eosinophils (%) (Auto) 1% (0-3) 0% (0-3) 1% (0-3) Basophils (%) (Auto) 0% (0-3) 0% (0-3) 0% (0-3) Neutrophils # (Auto) 10.4x10^3uL (1.8-7.7) 6.1x10^3uL (1.8-7.7) 5.0x10^3uL (1.8-7.7) Lymphocytes # (Auto) 0.9x10^3/uL (1.0-4.8) 0.9x10^3/uL (1.0-4.8) 1.5x10^3/uL (1.0-4.8) Monocytes # (Auto) 0.6x10^3/uL (0.0-1.1) 0.5x10^3/uL (0.0-1.1) 0.6x10^3/uL (0.0-1.1) Eosinophils # (Auto) 0.1x10^3/uL (0.0-0.7) 0.0x10^3/uL (0.0-0.7) 0.1x10^3/uL (0.0-0.7) Basophils # (Auto) 0.0x10^3/uL (0.0-0.2) 0.0x10^3/uL (0.0-0.2) 0.0x10^3/uL (0.0-0.2) Segmented Neutrophils % 69% (35-66) Band Neutrophils % 13% (0-9) Lymphocytes % 7% (24-48) Atypical Lymphocytes % (Manual) 4% (0-0) Monocytes % 5% (0-10) Eosinophils % 2% (0-5) Platelet Estimate Adequate (ADEQUATE) Anisocytosis Slight Ovalocytes Few Prothrombin Time 13.2SEC (11.7-14.0) Prothromb Time International Ratio 1.1 (0.8-1.1) Activated Partial Thromboplast Time 31SEC (24-38) Sodium Level 142mmol/L (136-145) 141mmol/L (136-145) 141mmol/L (136-145) Potassium Level 3.8mmol/L (3.5-5.1) 4.0mmol/L (3.5-5.1) 3.9mmol/L (3.5-5.1) Chloride Level 104mmol/L (98-107) 102mmol/L (98-107) 105mmol/L (98-107) Carbon Dioxide Level 30mmol/L (21-32) 33mmol/L (21-32) 36mmol/L (21-32) Anion Gap 8 (6-14) 6 (6-14) 0 (6-14) Blood Urea Nitrogen 21mg/dL (8-26) 22mg/dL (8-26) 17mg/dL (8-26) Creatinine 1.8mg/dL (0.7-1.3) 1.7mg/dL (0.7-1.3) 1.6mg/dL (0.7-1.3) Estimated GFR (Cockcroft-Gault) 36.0 38.5 41.3 BUN/Creatinine Ratio 12 (6-20) Glucose Level 147mg/dL (70-99) 154mg/dL (70-99) 127mg/dL (70-99) Calcium Level 8.6mg/dL (8.5-10.1) 8.2mg/dL (8.5-10.1) 8.5mg/dL (8.5-10.1) Total Bilirubin 0.3mg/dL (0.2-1.0) Aspartate Amino Transf (AST/SGOT) 19U/L (15-37) Alanine Aminotransferase (ALT/SGPT) 15U/L (16-63) Alkaline Phosphatase 137U/L (46-116) Total Protein 7.7g/dL (6.4-8.2) Albumin 3.4g/dL (3.4-5.0) Albumin/Globulin Ratio 0.8 (1.0-1.7) Lipase 117U/L (73-393) Nasal Screen MRSA (PCR) Positive (Negative) Laboratory Tests Test 10/02/16 04:08 White Blood Count 7.2x10^3/uL (4.0-11.0) Red Blood Count 3.25x10^6/uL (4.30-5.70) Hemoglobin 10.7g/dL (13.0-17.5) Hematocrit 32.9% (39.0-53.0) Mean Corpuscular Volume 101fL (79-100) Mean Corpuscular Hemoglobin 33pg (25-35) Mean Corpuscular Hemoglobin Concent 32g/dL (31-37) Red Cell Distribution Width 15.8% (11.5-14.5) Platelet Count 235x10^3/uL (140-400) Neutrophils (%) (Auto) 70% (31-73) Lymphocytes (%) (Auto) 21% (24-48) Monocytes (%) (Auto) 8% (0-9) Eosinophils (%) (Auto) 1% (0-3) Basophils (%) (Auto) 0% (0-3) Neutrophils # (Auto) 5.0x10^3uL (1.8-7.7) Lymphocytes # (Auto) 1.5x10^3/uL (1.0-4.8) Monocytes # (Auto) 0.6x10^3/uL (0.0-1.1) Eosinophils # (Auto) 0.1x10^3/uL (0.0-0.7) Basophils # (Auto) 0.0x10^3/uL (0.0-0.2) Sodium Level 141mmol/L (136-145) Potassium Level 3.9mmol/L (3.5-5.1) Chloride Level 105mmol/L (98-107) Carbon Dioxide Level 36mmol/L (21-32) Anion Gap 0 (6-14) Blood Urea Nitrogen 17mg/dL (8-26) Creatinine 1.6mg/dL (0.7-1.3) Estimated GFR (Cockcroft-Gault) 41.3 Glucose Level 127mg/dL (70-99) Calcium Level 8.5mg/dL (8.5-10.1) Problem List Problems Medical Problems: (1) SBO (small bowel obstruction) Status: Acute Assessment/Plan SBO plain films improved no bowel fx yet, will leave NG for now to LIS Problems: PAZ MONTEJO APRN Oct 02, 2016 12:38
[2016-10-02 15:00] VITALS: BP 154/78
[2016-10-02 19:00] VITALS: BP 150/63
[2016-10-02 23:04] VITALS: BP 176/85
[2016-10-03] VITALS (7 sets, daily range): BP systolic 153–186; BP diastolic 76–96
[2016-10-03] MEDS: MORPHINE SULFATE 4 MG/ML DISP.SYRIN. IV PRN ×4 (02:59→20:49)
[2016-10-03] MEDS: POTASSIUM CL 20MEQ D5-0.45NACL 1,000 ML IV SCH ×3 (05:34→22:50)
[2016-10-03 08:10] LABS: BASO % 0 % (0-3); EOS % 1 % (0-3); HEMATOCRIT 34.8 % (39.0-53.0); HEMOGLOBIN 11.2 g/dL (13.0-17.5); LYMPH # 1.2 x10^3/uL (1.0-4.8); LYMPH % 14 % (24-48); MEAN CORPUSCULAR HEMOGLOBIN 33 pg (25-35); MEAN CORPUSCULAR HGB CONC 32 g/dL (31-37); MEAN CORPUSCULAR VOLUME 101 fL (79-100); MONO % 8 % (0-9); NEUT % 77 % (31-73); PLATELET COUNT 231 x10^3/uL (140-400); RED BLOOD COUNT 3.46 x10^6/uL (4.30-5.70); RED CELL DISTRIBUTION WIDTH 15.8 % (11.5-14.5); WHITE BLOOD COUNT 8.6 x10^3/uL (4.0-11.0)
[2016-10-03 08:16] LABS: CALCIUM 8.7 mg/dL (8.5-10.1); CREATININE 1.3 mg/dL (0.7-1.3); GFR 52.5; POTASSIUM 4.1 mmol/L (3.5-5.1)
[2016-10-03] MEDS: LEVETIRACETAM 500 MG in IV NORMAL SALINE 100ML 100 ML IV SCH ×2 (09:02→20:51)
[2016-10-03] MEDS: ENOXAPARIN 40 MG/0.4 ML DISP.SYRIN. SQ SCH (09:02)
--- NOTE | 2016-10-03 09:21 | PDOC ---
PROGRESS NOTES Subjective Subjective denies BM or passing flatus. or abdominal pain, blood pressure high and will start catapress patch. Objective Objective Vital Signs Date Time Temp Pulse Resp B/P Pulse Ox O2 Delivery O2 Flow Rate FiO2 10/03/16 09:05 20 Nasal Cannula 2.0 10/03/16 07:00 98.1 82 153/76 97 98.1 Intake and Output 10/03/16 06:59 Intake Total 1700 ml Output Total 1200 ml Balance 500 ml Intake Oral 0 ml IV Total 1700 ml Output Gastric Drainage Total 1200 ml # Voids 2 Physical Exam Abdomen: Normal bowel sounds, Soft, No tenderness, Other (obese) Heart: Regular rate Extremities: No clubbing General: Alert HEENT: Atraumatic Lungs: Clear to auscultation Neuro: Normal speech Psych/Mental Status: Mood NL Skin: No rashes Assessment Assessment Problems Medical Problems:1. Small-bowel obstruction resolving 2. Seizure disorder. 3. Parkinson's disease. 4. Hypothyroidism. 5. Peripheral neuropathy. 6. Hypertension. 7. Chronic kidney disease stage III. (1) SBO (small bowel obstruction) Status: Acute Plan Plan of Care catapress patch NG suction iv fluids iv keppra Comment Review of Relevant I have reviewed the following items [place] (where applicable) has been applied. Labs Laboratory Tests Test 10/02/16 04:08 10/03/16 07:30 White Blood Count 7.2x10^3/uL (4.0-11.0) 8.6x10^3/uL (4.0-11.0) Red Blood Count 3.25x10^6/uL (4.30-5.70) 3.46x10^6/uL (4.30-5.70) Hemoglobin 10.7g/dL (13.0-17.5) 11.2g/dL (13.0-17.5) Hematocrit 32.9% (39.0-53.0) 34.8% (39.0-53.0) Mean Corpuscular Volume 101fL (79-100) 101fL (79-100) Mean Corpuscular Hemoglobin 33pg (25-35) 33pg (25-35) Mean Corpuscular Hemoglobin Concent 32g/dL (31-37) 32g/dL (31-37) Red Cell Distribution Width 15.8% (11.5-14.5) 15.8% (11.5-14.5) Platelet Count 235x10^3/uL (140-400) 231x10^3/uL (140-400) Neutrophils (%) (Auto) 70% (31-73) 77% (31-73) Lymphocytes (%) (Auto) 21% (24-48) 14% (24-48) Monocytes (%) (Auto) 8% (0-9) 8% (0-9) Eosinophils (%) (Auto) 1% (0-3) 1% (0-3) Basophils (%) (Auto) 0% (0-3) 0% (0-3) Neutrophils # (Auto) 5.0x10^3uL (1.8-7.7) 6.6x10^3uL (1.8-7.7) Lymphocytes # (Auto) 1.5x10^3/uL (1.0-4.8) 1.2x10^3/uL (1.0-4.8) Monocytes # (Auto) 0.6x10^3/uL (0.0-1.1) 0.7x10^3/uL (0.0-1.1) Eosinophils # (Auto) 0.1x10^3/uL (0.0-0.7) 0.1x10^3/uL (0.0-0.7) Basophils # (Auto) 0.0x10^3/uL (0.0-0.2) 0.0x10^3/uL (0.0-0.2) Sodium Level 141mmol/L (136-145) 144mmol/L (136-145) Potassium Level 3.9mmol/L (3.5-5.1) 4.1mmol/L (3.5-5.1) Chloride Level 105mmol/L (98-107) 105mmol/L (98-107) Carbon Dioxide Level 36mmol/L (21-32) 33mmol/L (21-32) Anion Gap 0 (6-14) 6 (6-14) Blood Urea Nitrogen 17mg/dL (8-26) 15mg/dL (8-26) Creatinine 1.6mg/dL (0.7-1.3) 1.3mg/dL (0.7-1.3) Estimated GFR (Cockcroft-Gault) 41.3 52.5 Glucose Level 127mg/dL (70-99) 139mg/dL (70-99) Calcium Level 8.5mg/dL (8.5-10.1) 8.7mg/dL (8.5-10.1) Laboratory Tests Test 10/03/16 07:30 White Blood Count 8.6x10^3/uL (4.0-11.0) Red Blood Count 3.46x10^6/uL (4.30-5.70) Hemoglobin 11.2g/dL (13.0-17.5) Hematocrit 34.8% (39.0-53.0) Mean Corpuscular Volume 101fL (79-100) Mean Corpuscular Hemoglobin 33pg (25-35) Mean Corpuscular Hemoglobin Concent 32g/dL (31-37) Red Cell Distribution Width 15.8% (11.5-14.5) Platelet Count 231x10^3/uL (140-400) Neutrophils (%) (Auto) 77% (31-73) Lymphocytes (%) (Auto) 14% (24-48) Monocytes (%) (Auto) 8% (0-9) Eosinophils (%) (Auto) 1% (0-3) Basophils (%) (Auto) 0% (0-3) Neutrophils # (Auto) 6.6x10^3uL (1.8-7.7) Lymphocytes # (Auto) 1.2x10^3/uL (1.0-4.8) Monocytes # (Auto) 0.7x10^3/uL (0.0-1.1) Eosinophils # (Auto) 0.1x10^3/uL (0.0-0.7) Basophils # (Auto) 0.0x10^3/uL (0.0-0.2) Sodium Level 144mmol/L (136-145) Potassium Level 4.1mmol/L (3.5-5.1) Chloride Level 105mmol/L (98-107) Carbon Dioxide Level 33mmol/L (21-32) Anion Gap 6 (6-14) Blood Urea Nitrogen 15mg/dL (8-26) Creatinine 1.3mg/dL (0.7-1.3) Estimated GFR (Cockcroft-Gault) 52.5 Glucose Level 139mg/dL (70-99) Calcium Level 8.7mg/dL (8.5-10.1) Medications Current Medications Fentanyl Citrate 50 mcg 50 mcg PRN Q15MIN PRN IV PAIN GREATER THAN 3/10 Last administered on 09/30/16at 19:35; Start 09/30/16 at 17:30; Stop 10/01/16 at 04 :24; Status DC Lactated Ringer's (Iv Lactated Ringers) 1,000 ml @ 100 mls/hr Q10H IV Last administered on 09/30/16at 19:35; Start 09/30/16 at 17:28; Stop 10/01/16 at 03 :27; Status DC Ondansetron HCl (Zofran) 4 mg 1X ONCE IV Last administered on 09/30/16at 17:44 ; Start 09/30/16 at 17:30; Stop 09/30/16 at 17:32; Status DC Fentanyl Citrate (Fentanyl 2ml Vial) 50 mcg 1X ONCE IV ; Start 09/30/16 at 19: 15; Stop 10/01/16 at 04:24; Status DC Ondansetron HCl (Zofran) 4 mg PRN Q8HRS PRN IV NAUSEA/VOMITING Last administered on 09/30/16at 22:07; Start 09/30/16 at 19:15; Stop 10/01/16 at 19 :14; Status DC Fentanyl Citrate 50 mcg 50 mcg PRN Q2HR PRN IV PAIN Last administered on at 16:54; Start 09/30/16 at 19:15; Stop 10/01/16 at 19:14; Status DC Sodium Chloride 1,000 ml @ 100 mls/hr Q10H IV ; Start 09/30/16 at 19:30; Stop 10/01/16 at 04:24; Status DC Potassium Chloride/Dextrose/ Sod Cl (KCl 20 Meq In D5W-1/2 NS) 1,000 ml @ 125 mls/hr Q8H IV Last administered on 10/03/16at 05:34; Start 09/30/16 at 20:00 Enoxaparin Sodium 40 mg 40 mg Q24H SQ Last administered on 10/03/16at 09:02; Start 10/01/16 at 09:00 Levetiracetam/ Sodium Chloride (Keppra/Iv Sodium Chloride 0.9% 100ml) 105 ml @ 400 mls/hr Q12HR IV Last administered on 10/03/16at 09:02; Start 09/30/16 at 21:00 Morphine Sulfate 2 mg PRN Q4HRS PRN IV SEVERE PAIN Last administered on at 20:01; Start 09/30/16 at 19:30 Acetaminophen (Tylenol) 650 mg PRN Q6HRS PRN FL MILD PAIN / TEMP; Start at 19:30 Ondansetron HCl (Zofran) 4 mg PRN Q6HRS PRN IV NAUSEA/VOMITING Last administered on 10/01/16at 20:01; Start 09/30/16 at 19:30 Benzocaine (Hurricaine One) 1 spray STK-MED ONCE .ROUTE ; Start 09/30/16 at 19: 51; Stop 09/30/16 at 19:52; Status DC Morphine Sulfate 4 mg PRN Q4HRS PRN IV PAIN Last administered on 10/03/16at 09: 05; Start 10/01/16 at 20:00 Active Scripts Active Hydrocodone-Apap 5-325 (Hydrocodone Bit/Acetaminophen) 1 Each Tablet 1 Tab PO PRN Q6HRS PRN Metoprolol Succinate ( Xl ) (Metoprolol Succinate) 25 Mg Tab.er.24h 25 Mg PO DAILY Reported Flomax (Tamsulosin Hcl) 0.4 Mg Cap.er.24h 1 Cap PO QHS Tramadol Hcl 100 Mg Tab.er.24h 100 Mg PO QID Levetiracetam 250 Mg Tablet 250 Mg PO BID Dulcolax (Bisacodyl) 10 Mg Supp.rect 10 Mg RC PRN DAILY PRN Maalox Advanced Suspension (Mag Hydrox/Al Hydrox/Simeth) 770 Ml Oral.susp 30 Ml PO Q2HR PRN Milk Of Magnesia (Magnesium Hydroxide) 400 Mg/5 Ml Oral.susp 30 Ml PO DAILY PRN Robitussin Cough-Chest Dm Liq (Guaifenesin/Dextromethorphan) 118 Ml Liquid 10 Ml PO Q4HRS PRN Trazodone Hcl 50 Mg Tablet 1 Tab PO QHS Tylenol (Acetaminophen) 325 Mg Tablet 650 Mg PO Q6HRS PRN Pramipexole Dihydrochloride (Pramipexole Di-Hcl) 0.5 Mg Tablet 0.5 Mg PO TID Simvastatin 20 Mg Tablet 1 Tab PO QHS Levothyroxine Sodium 100 Mcg Tablet 1 Tab PO DAILY Gabapentin 800 Mg Tablet 800 Mg PO QID Sinemet 25-100 Mg Tablet (Carbidopa/Levodopa) 1 Each Tablet 2 Tab PO TID Aspirin 81 Mg Tab.chew 1 Tab PO DAILY Vitals/I & O Vital Sign - Last 24 Hours 10/02/16 10/02/16 10/02/16 10/02/16 11:00 12:14 15:00 16:50 Temp 98.6 98.2 98.6 98.2 Pulse 92 93 Resp 16 16 B/P 154/71 154/78 Pulse Ox 95 94 96 96 O2 Delivery Nasal Cannula Nasal Cannula Nasal Cannula Nasal Cannula O2 Flow Rate 2.0 2.0 2.0 2.0 10/02/16 10/02/16 10/02/16 10/02/16 19:00 20:00 21:00 21:30 Temp 97.9 97.9 Pulse 87 Resp 16 20 B/P 150/63 Pulse Ox 97 96 96 O2 Delivery Nasal Cannula Nasal Cannula Nasal Cannula O2 Flow Rate 2.0 2.0 2.0 2.0 10/02/16 10/03/16 10/03/16 10/03/16 23:04 02:59 03:10 03:29 Temp 97.9 98.4 97.9 98.4 Pulse 91 92 Resp 18 20 16 18 B/P 176/85 160/76 Pulse Ox 93 98 96 O2 Delivery Nasal Cannula Nasal Cannula Nasal Cannula Room Air O2 Flow Rate 2.0 2.0 10/03/16 10/03/16 07:00 09:05 Temp 98.1 98.1 Pulse 82 Resp 18 20 B/P 153/76 Pulse Ox 97 O2 Delivery Nasal Cannula Nasal Cannula O2 Flow Rate 2.0 2.0 Intake and Output 10/02/16 10/02/16 10/03/16 14:59 22:59 06:59 Intake Total 1700 ml 0 ml Output Total 750 ml 450 ml Balance 950 ml -450 ml RICHARD [place] MD Oct 03, 2016 09:21
[2016-10-03] MEDS ORDERED: CLONIDINE TTS-2 PATCH TD SCH (10:00)
--- NOTE | 2016-10-03 10:05 | PDOC ---
PAZ MONTEJO CHARLENE 10/03/16 10:05am: SURGICAL PROGRESS NOTE Subjective feeling better today no abdominal pain still no flatus or stool Vital Signs Vital Signs Date Time Temp Pulse Resp B/P Pulse Ox O2 Delivery O2 Flow Rate FiO2 10/03/16 09:05 20 Nasal Cannula 2.0 10/03/16 07:00 98.1 82 153/76 97 98.1 I&O Intake and Output 10/03/16 06:59 Intake Total 1700 ml Output Total 1200 ml Balance 500 ml Intake Oral 0 ml IV Total 1700 ml Output Gastric Drainage Total 1200 ml # Voids 2 General: Alert, Oriented X3, Cooperative, No acute distress HEENT: Other (NG biliuos) Labs Laboratory Tests Test 10/02/16 04:08 10/03/16 07:30 White Blood Count 7.2x10^3/uL (4.0-11.0) 8.6x10^3/uL (4.0-11.0) Red Blood Count 3.25x10^6/uL (4.30-5.70) 3.46x10^6/uL (4.30-5.70) Hemoglobin 10.7g/dL (13.0-17.5) 11.2g/dL (13.0-17.5) Hematocrit 32.9% (39.0-53.0) 34.8% (39.0-53.0) Mean Corpuscular Volume 101fL (79-100) 101fL (79-100) Mean Corpuscular Hemoglobin 33pg (25-35) 33pg (25-35) Mean Corpuscular Hemoglobin Concent 32g/dL (31-37) 32g/dL (31-37) Red Cell Distribution Width 15.8% (11.5-14.5) 15.8% (11.5-14.5) Platelet Count 235x10^3/uL (140-400) 231x10^3/uL (140-400) Neutrophils (%) (Auto) 70% (31-73) 77% (31-73) Lymphocytes (%) (Auto) 21% (24-48) 14% (24-48) Monocytes (%) (Auto) 8% (0-9) 8% (0-9) Eosinophils (%) (Auto) 1% (0-3) 1% (0-3) Basophils (%) (Auto) 0% (0-3) 0% (0-3) Neutrophils # (Auto) 5.0x10^3uL (1.8-7.7) 6.6x10^3uL (1.8-7.7) Lymphocytes # (Auto) 1.5x10^3/uL (1.0-4.8) 1.2x10^3/uL (1.0-4.8) Monocytes # (Auto) 0.6x10^3/uL (0.0-1.1) 0.7x10^3/uL (0.0-1.1) Eosinophils # (Auto) 0.1x10^3/uL (0.0-0.7) 0.1x10^3/uL (0.0-0.7) Basophils # (Auto) 0.0x10^3/uL (0.0-0.2) 0.0x10^3/uL (0.0-0.2) Sodium Level 141mmol/L (136-145) 144mmol/L (136-145) Potassium Level 3.9mmol/L (3.5-5.1) 4.1mmol/L (3.5-5.1) Chloride Level 105mmol/L (98-107) 105mmol/L (98-107) Carbon Dioxide Level 36mmol/L (21-32) 33mmol/L (21-32) Anion Gap 0 (6-14) 6 (6-14) Blood Urea Nitrogen 17mg/dL (8-26) 15mg/dL (8-26) Creatinine 1.6mg/dL (0.7-1.3) 1.3mg/dL (0.7-1.3) Estimated GFR (Cockcroft-Gault) 41.3 52.5 Glucose Level 127mg/dL (70-99) 139mg/dL (70-99) Calcium Level 8.5mg/dL (8.5-10.1) 8.7mg/dL (8.5-10.1) Laboratory Tests Test 10/03/16 07:30 White Blood Count 8.6x10^3/uL (4.0-11.0) Red Blood Count 3.46x10^6/uL (4.30-5.70) Hemoglobin 11.2g/dL (13.0-17.5) Hematocrit 34.8% (39.0-53.0) Mean Corpuscular Volume 101fL (79-100) Mean Corpuscular Hemoglobin 33pg (25-35) Mean Corpuscular Hemoglobin Concent 32g/dL (31-37) Red Cell Distribution Width 15.8% (11.5-14.5) Platelet Count 231x10^3/uL (140-400) Neutrophils (%) (Auto) 77% (31-73) Lymphocytes (%) (Auto) 14% (24-48) Monocytes (%) (Auto) 8% (0-9) Eosinophils (%) (Auto) 1% (0-3) Basophils (%) (Auto) 0% (0-3) Neutrophils # (Auto) 6.6x10^3uL (1.8-7.7) Lymphocytes # (Auto) 1.2x10^3/uL (1.0-4.8) Monocytes # (Auto) 0.7x10^3/uL (0.0-1.1) Eosinophils # (Auto) 0.1x10^3/uL (0.0-0.7) Basophils # (Auto) 0.0x10^3/uL (0.0-0.2) Sodium Level 144mmol/L (136-145) Potassium Level 4.1mmol/L (3.5-5.1) Chloride Level 105mmol/L (98-107) Carbon Dioxide Level 33mmol/L (21-32) Anion Gap 6 (6-14) Blood Urea Nitrogen 15mg/dL (8-26) Creatinine 1.3mg/dL (0.7-1.3) Estimated GFR (Cockcroft-Gault) 52.5 Glucose Level 139mg/dL (70-99) Calcium Level 8.7mg/dL (8.5-10.1) Problem List Problems Medical Problems: (1) SBO (small bowel obstruction) Status: Acute Assessment/Plan sbo no flatus yet, xrays without obstruction, NG had 1200cc for 24 hrs continue to LIS will review with Dr Garcia Problems: FRAN GARCIA MD 10/03/16 5:09pm: SURGICAL PROGRESS NOTE Assessment/Plan pt seen and examined keep NG on suction tonoc, trial in AM Problems: PAZ MONTEJO APRN Oct 03, 2016 10:05 am FRAN GARCIA MD Oct 03, 2016 5:09 pm
[2016-10-04] MEDS: MORPHINE SULFATE 4 MG/ML DISP.SYRIN. IV PRN ×5 (02:49→23:44)
[2016-10-04 03:45] VITALS: BP 191/100
[2016-10-04 04:40] VITALS: BP 161/83
[2016-10-04 05:57] LABS: BASO % 0 % (0-3); EOS % 1 % (0-3); HEMATOCRIT 36.1 % (39.0-53.0); HEMOGLOBIN 11.8 g/dL (13.0-17.5); LYMPH # 1.5 x10^3/uL (1.0-4.8); LYMPH % 14 % (24-48); MEAN CORPUSCULAR HEMOGLOBIN 32 pg (25-35); MEAN CORPUSCULAR HGB CONC 33 g/dL (31-37); MEAN CORPUSCULAR VOLUME 99 fL (79-100); MONO % 9 % (0-9); NEUT % 77 % (31-73); PLATELET COUNT 251 x10^3/uL (140-400); RED BLOOD COUNT 3.66 x10^6/uL (4.30-5.70); RED CELL DISTRIBUTION WIDTH 15.2 % (11.5-14.5)
[2016-10-04 06:02] LABS: CALCIUM 8.6 mg/dL (8.5-10.1); CREATININE 1.3 mg/dL (0.7-1.3); GFR 52.5; MAGNESIUM 1.9 mg/dL (1.8-2.4); POTASSIUM 4.4 mmol/L (3.5-5.1)
[2016-10-04] MEDS: POTASSIUM CL 20MEQ D5-0.45NACL 1,000 ML IV SCH (06:02)
[2016-10-04 07:00] VITALS: BP 187/78
[2016-10-04] MEDS: ENOXAPARIN 40 MG/0.4 ML DISP.SYRIN. SQ SCH (08:38)
[2016-10-04] MEDS: LEVETIRACETAM 500 MG in IV NORMAL SALINE 100ML 100 ML IV SCH ×2 (10:07→20:44)
[2016-10-04] MEDS ORDERED: hydrALAZINE 20 MG/ML VIAL. IVP PRN (10:15)
[2016-10-04] MEDS ORDERED: VANCOMYCIN 1 GM in IV NORMAL SALINE 250ML 250 ML IV SCH (10:15)
[2016-10-04] MEDS ORDERED: LABETALOL 20 MG/4 ML DISP.SYRIN. IVP PRN (10:15)
--- NOTE | 2016-10-04 10:28 | PDOC ---
PROGRESS NOTES Subjective Subjective has some nausea per nurse. gastric output recorded not accurate and less than recorded . febrile and blood pressure is high. lab reviewed. will start iv vancomycin and zosyn and order blood and urine cultures and cxr and acute abdominal series. will start prn iv hydralazine and prn iv labetolol and continue catapress patch as he is npo . will start PPN Objective Objective Vital Signs Date Time Temp Pulse Resp B/P Pulse Ox O2 Delivery O2 Flow Rate FiO2 10/04/16 07:00 100.4 106 18 187/78 93 Room Air 100.4 10/04/16 04:40 2.0 Intake and Output 10/04/16 07:00 Intake Total 2986 ml Output Total 2450 ml Balance 536 ml Intake Oral 0 ml IV Total 2986 ml Output Gastric Drainage Total 2450 ml # Voids 5 Physical Exam Abdomen: Normal bowel sounds, Soft, No tenderness Heart: Regular rate, Normal S1, Normal S2 Extremities: Other (2 plus edema legs) General: Alert HEENT: Atraumatic Lungs: Other Neuro: Normal speech Psych/Mental Status: Mood NL Skin: No rashes Assessment Assessment Problems Medical Problems:1. Small-bowel obstruction resolving 2. Seizure disorder. 3. Parkinson's disease. 4. Hypothyroidism. 5. Peripheral neuropathy. 6. Hypertension. BP high 7. Chronic kidney disease stage III. fever (1) SBO (small bowel obstruction) Status: Acute Plan Plan of Care blood cultures times 2 urine culture cxr acute abdominal series consult ID start iv vancomycin and zosyn iv hydralazine prn and iv labetolol prn continue catapress patch start PPN Comment Review of Relevant I have reviewed the following items [place] (where applicable) has been applied. Labs Laboratory Tests Test 10/03/16 07:30 10/04/16 05:15 White Blood Count 8.6x10^3/uL (4.0-11.0) 11.0x10^3/uL (4.0-11.0) Red Blood Count 3.46x10^6/uL (4.30-5.70) 3.66x10^6/uL (4.30-5.70) Hemoglobin 11.2g/dL (13.0-17.5) 11.8g/dL (13.0-17.5) Hematocrit 34.8% (39.0-53.0) 36.1% (39.0-53.0) Mean Corpuscular Volume 101fL (79-100) 99fL (79-100) Mean Corpuscular Hemoglobin 33pg (25-35) 32pg (25-35) Mean Corpuscular Hemoglobin Concent 32g/dL (31-37) 33g/dL (31-37) Red Cell Distribution Width 15.8% (11.5-14.5) 15.2% (11.5-14.5) Platelet Count 231x10^3/uL (140-400) 251x10^3/uL (140-400) Neutrophils (%) (Auto) 77% (31-73) 77% (31-73) Lymphocytes (%) (Auto) 14% (24-48) 14% (24-48) Monocytes (%) (Auto) 8% (0-9) 9% (0-9) Eosinophils (%) (Auto) 1% (0-3) 1% (0-3) Basophils (%) (Auto) 0% (0-3) 0% (0-3) Neutrophils # (Auto) 6.6x10^3uL (1.8-7.7) 8.4x10^3uL (1.8-7.7) Lymphocytes # (Auto) 1.2x10^3/uL (1.0-4.8) 1.5x10^3/uL (1.0-4.8) Monocytes # (Auto) 0.7x10^3/uL (0.0-1.1) 1.0x10^3/uL (0.0-1.1) Eosinophils # (Auto) 0.1x10^3/uL (0.0-0.7) 0.1x10^3/uL (0.0-0.7) Basophils # (Auto) 0.0x10^3/uL (0.0-0.2) 0.0x10^3/uL (0.0-0.2) Sodium Level 144mmol/L (136-145) 142mmol/L (136-145) Potassium Level 4.1mmol/L (3.5-5.1) 4.4mmol/L (3.5-5.1) Chloride Level 105mmol/L (98-107) 104mmol/L (98-107) Carbon Dioxide Level 33mmol/L (21-32) 31mmol/L (21-32) Anion Gap 6 (6-14) 7 (6-14) Blood Urea Nitrogen 15mg/dL (8-26) 14mg/dL (8-26) Creatinine 1.3mg/dL (0.7-1.3) 1.3mg/dL (0.7-1.3) Estimated GFR (Cockcroft-Gault) 52.5 52.5 Glucose Level 139mg/dL (70-99) 140mg/dL (70-99) Calcium Level 8.7mg/dL (8.5-10.1) 8.6mg/dL (8.5-10.1) Magnesium Level 1.9mg/dL (1.8-2.4) Laboratory Tests Test 10/04/16 05:15 White Blood Count 11.0x10^3/uL (4.0-11.0) Red Blood Count 3.66x10^6/uL (4.30-5.70) Hemoglobin 11.8g/dL (13.0-17.5) Hematocrit 36.1% (39.0-53.0) Mean Corpuscular Volume 99fL (79-100) Mean Corpuscular Hemoglobin 32pg (25-35) Mean Corpuscular Hemoglobin Concent 33g/dL (31-37) Red Cell Distribution Width 15.2% (11.5-14.5) Platelet Count 251x10^3/uL (140-400) Neutrophils (%) (Auto) 77% (31-73) Lymphocytes (%) (Auto) 14% (24-48) Monocytes (%) (Auto) 9% (0-9) Eosinophils (%) (Auto) 1% (0-3) Basophils (%) (Auto) 0% (0-3) Neutrophils # (Auto) 8.4x10^3uL (1.8-7.7) Lymphocytes # (Auto) 1.5x10^3/uL (1.0-4.8) Monocytes # (Auto) 1.0x10^3/uL (0.0-1.1) Eosinophils # (Auto) 0.1x10^3/uL (0.0-0.7) Basophils # (Auto) 0.0x10^3/uL (0.0-0.2) Sodium Level 142mmol/L (136-145) Potassium Level 4.4mmol/L (3.5-5.1) Chloride Level 104mmol/L (98-107) Carbon Dioxide Level 31mmol/L (21-32) Anion Gap 7 (6-14) Blood Urea Nitrogen 14mg/dL (8-26) Creatinine 1.3mg/dL (0.7-1.3) Estimated GFR (Cockcroft-Gault) 52.5 Glucose Level 140mg/dL (70-99) Calcium Level 8.6mg/dL (8.5-10.1) Magnesium Level 1.9mg/dL (1.8-2.4) Medications Current Medications Fentanyl Citrate 50 mcg 50 mcg PRN Q15MIN PRN IV PAIN GREATER THAN 3/10 Last administered on 09/30/16at 19:35; Start 09/30/16 at 17:30; Stop 10/01/16 at 04 :24; Status DC Lactated Ringer's (Iv Lactated Ringers) 1,000 ml @ 100 mls/hr Q10H IV Last administered on 09/30/16at 19:35; Start 09/30/16 at 17:28; Stop 10/01/16 at 03 :27; Status DC Ondansetron HCl (Zofran) 4 mg 1X ONCE IV Last administered on 09/30/16at 17:44 ; Start 09/30/16 at 17:30; Stop 09/30/16 at 17:32; Status DC Fentanyl Citrate (Fentanyl 2ml Vial) 50 mcg 1X ONCE IV ; Start 09/30/16 at 19: 15; Stop 10/01/16 at 04:24; Status DC Ondansetron HCl (Zofran) 4 mg PRN Q8HRS PRN IV NAUSEA/VOMITING Last administered on 09/30/16at 22:07; Start 09/30/16 at 19:15; Stop 10/01/16 at 19 :14; Status DC Fentanyl Citrate 50 mcg 50 mcg PRN Q2HR PRN IV PAIN Last administered on at 16:54; Start 09/30/16 at 19:15; Stop 10/01/16 at 19:14; Status DC Sodium Chloride 1,000 ml @ 100 mls/hr Q10H IV ; Start 09/30/16 at 19:30; Stop 10/01/16 at 04:24; Status DC Potassium Chloride/Dextrose/ Sod Cl (KCl 20 Meq In D5W-1/2 NS) 1,000 ml @ 125 mls/hr Q8H IV Last administered on 10/04/16at 06:02; Start 09/30/16 at 20:00; Stop 10/04/16 at 10:21; Status DC Enoxaparin Sodium 40 mg 40 mg Q24H SQ Last administered on 10/04/16at 08:38; Start 10/01/16 at 09:00 Levetiracetam/ Sodium Chloride (Keppra/Iv Sodium Chloride 0.9% 100ml) 105 ml @ 400 mls/hr Q12HR IV Last administered on 10/04/16at 10:07; Start 09/30/16 at 21:00 Morphine Sulfate 2 mg PRN Q4HRS PRN IV SEVERE PAIN Last administered on at 20:01; Start 09/30/16 at 19:30 Acetaminophen (Tylenol) 650 mg PRN Q6HRS PRN NC MILD PAIN / TEMP; Start at 19:30 Ondansetron HCl (Zofran) 4 mg PRN Q6HRS PRN IV NAUSEA/VOMITING Last administered on 10/01/16at 20:01; Start 09/30/16 at 19:30 Benzocaine (Hurricaine One) 1 spray STK-MED ONCE .ROUTE ; Start 09/30/16 at 19: 51; Stop 09/30/16 at 19:52; Status DC Morphine Sulfate 4 mg PRN Q4HRS PRN IV PAIN Last administered on 10/04/16at 08: 38; Start 10/01/16 at 20:00 Clonidine HCl 1 patch 1 patch WEEKLY TD Last administered on 10/03/16at 12:30; Start 10/03/16 at 10:00 Piperacillin Sod/ Tazobactam Sod/ Sodium Chloride (Zosyn/Iv Sodium Chloride 0.9 % 50ml) 50 ml @ 100 mls/hr Q6HRS IV ; Start 10/04/16 at 12:00; Status UNV Vancomycin HCl 1 each 1 each PRN DAILY PRN MC SEE COMMENTS; Start 10/04/16 at 10:15; Status UNV Vancomycin HCl/ Sodium Chloride (Iv Sodium Chloride 0.9% 250ml) 250 ml @ 250 mls/hr Q24H IV ; Start 10/04/16 at 10:15; Status UNV Labetalol HCl (Normodyne) 20 mg Q6HRS PRN IVP HYPERTENSION, SEE COMMENTS; Start 10/04/16 at 10:15; Status UNV Hydralazine HCl 10 mg 10 mg Q6HRS PRN IVP ELEVATED BP, SEE COMMENTS; Start at 10:15; Status UNV Amino Acids/ Glycerin/ Electrolytes (Procalamine) 1,000 ml @ 80 mls/hr [id number] IV ; Start 10/04/16 at 10:15; Status UNV Active Scripts Active Hydrocodone-Apap 5-325 (Hydrocodone Bit/Acetaminophen) 1 Each Tablet 1 Tab PO PRN Q6HRS PRN Metoprolol Succinate ( Xl ) (Metoprolol Succinate) 25 Mg Tab.er.24h 25 Mg PO DAILY Reported Flomax (Tamsulosin Hcl) 0.4 Mg Cap.er.24h 1 Cap PO QHS Tramadol Hcl 100 Mg Tab.er.24h 100 Mg PO QID Levetiracetam 250 Mg Tablet 250 Mg PO BID Dulcolax (Bisacodyl) 10 Mg Supp.rect 10 Mg RC PRN DAILY PRN Maalox Advanced Suspension (Mag Hydrox/Al Hydrox/Simeth) 770 Ml Oral.susp 30 Ml PO Q2HR PRN Milk Of Magnesia (Magnesium Hydroxide) 400 Mg/5 Ml Oral.susp 30 Ml PO DAILY PRN Robitussin Cough-Chest Dm Liq (Guaifenesin/Dextromethorphan) 118 Ml Liquid 10 Ml PO Q4HRS PRN Trazodone Hcl 50 Mg Tablet 1 Tab PO QHS Tylenol (Acetaminophen) 325 Mg Tablet 650 Mg PO Q6HRS PRN Pramipexole Dihydrochloride (Pramipexole Di-Hcl) 0.5 Mg Tablet 0.5 Mg PO TID Simvastatin 20 Mg Tablet 1 Tab PO QHS Levothyroxine Sodium 100 Mcg Tablet 1 Tab PO DAILY Gabapentin 800 Mg Tablet 800 Mg PO QID Sinemet 25-100 Mg Tablet (Carbidopa/Levodopa) 1 Each Tablet 2 Tab PO TID Aspirin 81 Mg Tab.chew 1 Tab PO DAILY Vitals/I & O Vital Sign - Last 24 Hours 10/03/16 10/03/16 10/03/16 10/03/16 11:00 11:05 13:14 15:00 Temp 99.2 98.2 99.2 98.2 Pulse 91 90 Resp 18 20 18 B/P 182/96 172/87 173/79 Pulse Ox 98 96 O2 Delivery Nasal Cannula Nasal Cannula Room Air O2 Flow Rate 2.0 2.0 10/03/16 10/03/16 10/03/16 10/03/16 19:10 20:10 20:49 23:15 Temp 98.6 98.4 98.6 98.4 Pulse 194 93 Resp 24 20 22 B/P 172/91 186/81 Pulse Ox 92 96 92 O2 Delivery Room Air Nasal Cannula Nasal Cannula Nasal Cannula O2 Flow Rate 2.0 2.0 2.0 2.0 10/04/16 10/04/16 10/04/16 10/04/16 02:49 03:20 03:45 04:40 Temp 99.5 99.5 Pulse 208 107 Resp 18 17 28 B/P 191/100 161/83 Pulse Ox 92 95 96 O2 Delivery Nasal Cannula Nasal Cannula Nasal Cannula Nasal Cannula O2 Flow Rate 2.0 2.0 2.0 2.0 10/04/16 07:00 Temp 100.4 100.4 Pulse 106 Resp 18 B/P 187/78 Pulse Ox 93 O2 Delivery Room Air Intake and Output 10/03/16 10/03/16 10/04/16 15:00 23:00 07:00 Intake Total 105 ml 2881 ml Output Total 1250 ml 450 ml 750 ml Balance -1250 ml -345 ml 2131 ml RICHARD NJ MD Oct 04, 2016 10:28
[2016-10-04 10:41] VITALS: BP 154/93
[2016-10-04] MEDS ORDERED: VANCOMYCIN 2 GM in IV NORMAL SALINE 500ML BAG 500 ML IV ONE (10:45)
--- NOTE | 2016-10-04 11:24 | RAD ---
Indication: Small bowel obstruction. Technique: Abdominal series with PA chest radiograph contains 4 images. Comparison is from 2 days ago. Findings: There is basilar atelectasis. There is borderline cardiomegaly. There is no definite heart failure. Endogastric tube has been pulled back. Both the tip and sidehole are above the diaphragm, tube can be advanced at least 5 to 10 cm. There is no free air. There is mild gaseous distention of the stomach, small bowel and colon, no dilated bowel loop. There are no air-fluid levels. There is an IVC filter. There is a spine stimulator and interspinous spacer device. There are postsurgical changes in the pelvis. Impression: 1. Nasogastric tube has been pulled back, the tip and sidehole are above the diaphragm. This line can be repositioned. 2. No dilated bowel loop or transition in caliber to suggest obstruction.
[2016-10-04] MEDS: PIPERACILLIN/TAZOBACTAM 3.375 GM in IV NORMAL SALINE 50ML 50 ML IV SCH ×3 (11:26→23:44)
[2016-10-04] MEDS: MORPHINE SULFATE 2 MG/ML DISP.SYRIN. IV PRN ×3 (11:27→20:44)
[2016-10-04] MEDS: AA 3%/ELECTROLYTE-TPN SOLN/GLY 1,000 ML IV SCH (11:28)
[2016-10-04] MEDS: VANCOMYCIN PER PHARMACY MC PRN (12:48)
--- NOTE | 2016-10-04 14:00 | PDOC ---
SURGICAL PROGRESS NOTE Subjective some abdominal pain today Vital Signs Vital Signs Date Time Temp Pulse Resp B/P Pulse Ox O2 Delivery O2 Flow Rate FiO2 10/04/16 13:25 89 Nasal Cannula 2.0 10/04/16 10:41 100.0 104 19 154/93 100.0 I&O Intake and Output 10/04/16 07:00 Intake Total 2986 ml Output Total 2450 ml Balance 536 ml Intake Oral 0 ml IV Total 2986 ml Output Gastric Drainage Total 2450 ml # Voids 5 PATIENT HAS A MELVIN: Yes General: Alert Abdomen: Soft, Other (some diffuse TTP) Neuro: Other (tremor) Labs Laboratory Tests Test 10/03/16 07:30 10/04/16 05:15 White Blood Count 8.6x10^3/uL (4.0-11.0) 11.0x10^3/uL (4.0-11.0) Red Blood Count 3.46x10^6/uL (4.30-5.70) 3.66x10^6/uL (4.30-5.70) Hemoglobin 11.2g/dL (13.0-17.5) 11.8g/dL (13.0-17.5) Hematocrit 34.8% (39.0-53.0) 36.1% (39.0-53.0) Mean Corpuscular Volume 101fL (79-100) 99fL (79-100) Mean Corpuscular Hemoglobin 33pg (25-35) 32pg (25-35) Mean Corpuscular Hemoglobin Concent 32g/dL (31-37) 33g/dL (31-37) Red Cell Distribution Width 15.8% (11.5-14.5) 15.2% (11.5-14.5) Platelet Count 231x10^3/uL (140-400) 251x10^3/uL (140-400) Neutrophils (%) (Auto) 77% (31-73) 77% (31-73) Lymphocytes (%) (Auto) 14% (24-48) 14% (24-48) Monocytes (%) (Auto) 8% (0-9) 9% (0-9) Eosinophils (%) (Auto) 1% (0-3) 1% (0-3) Basophils (%) (Auto) 0% (0-3) 0% (0-3) Neutrophils # (Auto) 6.6x10^3uL (1.8-7.7) 8.4x10^3uL (1.8-7.7) Lymphocytes # (Auto) 1.2x10^3/uL (1.0-4.8) 1.5x10^3/uL (1.0-4.8) Monocytes # (Auto) 0.7x10^3/uL (0.0-1.1) 1.0x10^3/uL (0.0-1.1) Eosinophils # (Auto) 0.1x10^3/uL (0.0-0.7) 0.1x10^3/uL (0.0-0.7) Basophils # (Auto) 0.0x10^3/uL (0.0-0.2) 0.0x10^3/uL (0.0-0.2) Sodium Level 144mmol/L (136-145) 142mmol/L (136-145) Potassium Level 4.1mmol/L (3.5-5.1) 4.4mmol/L (3.5-5.1) Chloride Level 105mmol/L (98-107) 104mmol/L (98-107) Carbon Dioxide Level 33mmol/L (21-32) 31mmol/L (21-32) Anion Gap 6 (6-14) 7 (6-14) Blood Urea Nitrogen 15mg/dL (8-26) 14mg/dL (8-26) Creatinine 1.3mg/dL (0.7-1.3) 1.3mg/dL (0.7-1.3) Estimated GFR (Cockcroft-Gault) 52.5 52.5 Glucose Level 139mg/dL (70-99) 140mg/dL (70-99) Calcium Level 8.7mg/dL (8.5-10.1) 8.6mg/dL (8.5-10.1) Magnesium Level 1.9mg/dL (1.8-2.4) Laboratory Tests Test 10/04/16 05:15 White Blood Count 11.0x10^3/uL (4.0-11.0) Red Blood Count 3.66x10^6/uL (4.30-5.70) Hemoglobin 11.8g/dL (13.0-17.5) Hematocrit 36.1% (39.0-53.0) Mean Corpuscular Volume 99fL (79-100) Mean Corpuscular Hemoglobin 32pg (25-35) Mean Corpuscular Hemoglobin Concent 33g/dL (31-37) Red Cell Distribution Width 15.2% (11.5-14.5) Platelet Count 251x10^3/uL (140-400) Neutrophils (%) (Auto) 77% (31-73) Lymphocytes (%) (Auto) 14% (24-48) Monocytes (%) (Auto) 9% (0-9) Eosinophils (%) (Auto) 1% (0-3) Basophils (%) (Auto) 0% (0-3) Neutrophils # (Auto) 8.4x10^3uL (1.8-7.7) Lymphocytes # (Auto) 1.5x10^3/uL (1.0-4.8) Monocytes # (Auto) 1.0x10^3/uL (0.0-1.1) Eosinophils # (Auto) 0.1x10^3/uL (0.0-0.7) Basophils # (Auto) 0.0x10^3/uL (0.0-0.2) Sodium Level 142mmol/L (136-145) Potassium Level 4.4mmol/L (3.5-5.1) Chloride Level 104mmol/L (98-107) Carbon Dioxide Level 31mmol/L (21-32) Anion Gap 7 (6-14) Blood Urea Nitrogen 14mg/dL (8-26) Creatinine 1.3mg/dL (0.7-1.3) Estimated GFR (Cockcroft-Gault) 52.5 Glucose Level 140mg/dL (70-99) Calcium Level 8.6mg/dL (8.5-10.1) Magnesium Level 1.9mg/dL (1.8-2.4) I have reviewed the following plain films reviewed Problem List Problems Medical Problems: (1) SBO (small bowel obstruction) Status: Acute Assessment/Plan low grade fever SBO continue NG serial exams Problems: FRAN GARCIA MD Oct 04, 2016 14:00
--- NOTE | 2016-10-04 14:21 | RAD ---
Indication: Nasogastric tube repositioning. Technique: KUB is submitted for review. Comparison is from earlier today. There is also a CT from the that was reviewed. Findings: Nasogastric tube has been advanced or replaced. It now projects at the level of the diaphragm and based on the prior CT is probably within the hiatal hernia. Prior CT demonstrates a medium-sized hiatal hernia. Impression: Nasogastric tube projects within a hiatal hernia.
--- NOTE | 2016-10-04 14:47 | PDOC ---
Infectious Disease Note Vital Sign Vital Signs Vital Signs Date Time Temp Pulse Resp B/P Pulse Ox O2 Delivery O2 Flow Rate FiO2 10/04/16 13:55 89 Nasal Cannula 2.0 10/04/16 10:41 100.0 104 19 154/93 100.0 Labs Lab Laboratory Tests Test 10/04/16 05:15 White Blood Count 11.0x10^3/uL (4.0-11.0) Red Blood Count 3.66x10^6/uL (4.30-5.70) Hemoglobin 11.8g/dL (13.0-17.5) Hematocrit 36.1% (39.0-53.0) Mean Corpuscular Volume 99fL (79-100) Mean Corpuscular Hemoglobin 32pg (25-35) Mean Corpuscular Hemoglobin Concent 33g/dL (31-37) Red Cell Distribution Width 15.2% (11.5-14.5) Platelet Count 251x10^3/uL (140-400) Neutrophils (%) (Auto) 77% (31-73) Lymphocytes (%) (Auto) 14% (24-48) Monocytes (%) (Auto) 9% (0-9) Eosinophils (%) (Auto) 1% (0-3) Basophils (%) (Auto) 0% (0-3) Neutrophils # (Auto) 8.4x10^3uL (1.8-7.7) Lymphocytes # (Auto) 1.5x10^3/uL (1.0-4.8) Monocytes # (Auto) 1.0x10^3/uL (0.0-1.1) Eosinophils # (Auto) 0.1x10^3/uL (0.0-0.7) Basophils # (Auto) 0.0x10^3/uL (0.0-0.2) Sodium Level 142mmol/L (136-145) Potassium Level 4.4mmol/L (3.5-5.1) Chloride Level 104mmol/L (98-107) Carbon Dioxide Level 31mmol/L (21-32) Anion Gap 7 (6-14) Blood Urea Nitrogen 14mg/dL (8-26) Creatinine 1.3mg/dL (0.7-1.3) Estimated GFR (Cockcroft-Gault) 52.5 Glucose Level 140mg/dL (70-99) Calcium Level 8.6mg/dL (8.5-10.1) Magnesium Level 1.9mg/dL (1.8-2.4) Indication: Nasogastric tube repositioning. Technique: KUB is submitted for review. Comparison is from earlier today. There is also a CT from the that was reviewed. Findings: Nasogastric tube has been advanced or replaced. It now projects at the level of the diaphragm and based on the prior CT is probably within the hiatal hernia. Prior CT demonstrates a medium-sized hiatal hernia. Impression: Nasogastric tube projects within a hiatal hernia. Objective Assessment Fever Small bowel obstruction N/V Dislodgement of NGT Hiatal hernia + MRSA Cipro allergy. Seizure disorder Parkinson's disease h/o UTI: Citrobacter & Klebsiella h/o E. coli bacteremia Plan Plan of Care vanc and Zosyn UA and BC pending Difficulty advancing NGT, meeting resistance per RN. Call into Dr. Marroquin f/u am labs and cultures Thank you Attending Co-Sign Attending Co-Sign The patient was seen and interviewed as well as examined at the bedside. The chart was reviewed. The case was discussed. Agree with the plan of care. LATRICE OLSON APRN Oct 04, 2016 14:47 SAMI MARTINEZ MD Oct 04, 2016 14:49
[2016-10-04 18:26] LABS: BILIRUBIN,URINE NEGATIVE (NEG); GLUCOSE,URINE NEGATIVE (NEG); NITRITE,URINE NEGATIVE (NEG); UROBILINOGEN,URINE 0.2 mg/dL (0.2 mg/dL)
[2016-10-04 18:35] LABS: BACTERIA,URINE MOD /HPF (0-FEW); PROTEIN,URINE TRACE mg/dL (NEG-TRACE); RBC,URINE OCC /HPF (0-2); SQUAMOUS EPITHELIAL CELL,UR OCC /LPF; WBC,URINE >40 /HPF (0-4)
[2016-10-04 19:00] VITALS: BP 189/75
[2016-10-04 23:00] VITALS: BP 15/73
[2016-10-05] MEDS: MORPHINE SULFATE 2 MG/ML DISP.SYRIN. IV PRN ×3 (01:39→10:13)
[2016-10-05 03:00] VITALS: BP 189/86
[2016-10-05] MEDS: AA 3%/ELECTROLYTE-TPN SOLN/GLY 1,000 ML IV SCH ×2 (04:10→21:12)
[2016-10-05] MEDS: MORPHINE SULFATE 4 MG/ML DISP.SYRIN. IV PRN ×2 (04:11→08:08)
--- NOTE | 2016-10-05 04:41 | CONS ---
DATE OF CONSULTATION: 10/03/2016 REQUESTING PHYSICIAN: Eliel Watson MD REASON FOR CONSULTATION: Fever. HISTORY OF PRESENT ILLNESS: The patient is an 86-year-old male with a history of Parkinson's, chronic kidney disease, and seizure disorder, who was admitted from assisted living facility with abdominal pain, nausea, and vomiting. Workup revealed a partial small-bowel obstruction. He was evaluated by General Surgery and is currently being treated conservatively. The patient was doing fairly well until about this morning when he spiked a fever of 100.4 with nausea and vomiting. Today's abdominal series revealed that the nasogastric tube was pulled back, the tip and sidehole above the diaphragm. No dilated bowel loops or transitioning caliber to suggest obstruction. A followup KUB revealed that the NG tube projects within a hiatal hernia. According to the nurse, when replacing the NG tube, she met resistance, thus is currently out. The patient is not feeling well. He complains of mild abdominal pain. Urine and blood cultures have been ordered. He has been started on vancomycin and Zosyn. PAST MEDICAL HISTORY: MRSA screen positive; history of urinary tract infections with Citrobacter and Klebsiella; history of Escherichia coli bacteremia, previous small-bowel obstructions, status post lysis of adhesions and hernia repair; chronic kidney disease; seizure disorder; DVT; pulmonary emboli, status post IVC filter; hypothyroidism; hyperlipidemia; pernicious anemia; chronic pain due to spondylosis; idiopathic peripheral neuropathy; and depression. PAST SURGICAL HISTORY: Dorsal column stimulator placed for chronic pain, radical prostatectomy in 1993 for prostate cancer, bowel resection with ostomy and takedown, appendectomy, bilateral orchiectomy, lumbar laminectomy, and history of cancer of the rectum, status post excision. SOCIAL HISTORY: The patient is a . He lives in an assisted living facility. He is a nonsmoker. He is ambulatory with a walker. FAMILY HISTORY: Positive for myocardial infarction and cancer of the mouth. ALLERGIES: CIPRO, NITROGLYCERIN, and PAXIL. MEDICATIONS: Vancomycin and Zosyn, which were both started earlier today, and Keppra. Other medications are available and have been reviewed on the DEC. REVIEW OF SYSTEMS: Denies dysuria or difficulty voiding. Denies constipation or diarrhea. Denies muscle aches or rash. Denies headache. The patient denies shortness of air or chest discomfort. PHYSICAL EXAMINATION: GENERAL: A male, propped up in bed, tearing. VITAL SIGNS: Temperature is 100.0, T-max 100.4; blood pressure 154/93; heart rate 104; respiratory rate 19; pulse oximetry 89% on 2 L nasal cannula; and weight is 216 pounds. HEENT: Pupils are equally round and reactive. Normal conjunctivae. Oral mucosa is pink and moist. NECK: Supple. LUNGS: Diminished aeration in the bases, nonlabored. HEART: Normal S1 and S2. ABDOMEN: Distended. Bowel sounds are present, soft, mild diffuse tenderness. EXTREMITIES: Bilateral lower extremity trace edema. He has fine tremors. NEUROLOGIC: Alert and responds appropriately. SKIN: Without rash. Warm to touch. LABORATORY DATA: WBC is 11.0, hemoglobin 11.8, platelet count 251,000. Electrolytes are unremarkable. Creatinine is 1.3 from 1.8 on admission. Glucose is 140. On admission, lipase is 117, total bilirubin 0.3, AST 19, ALT 15, and albumin 3.4. MRSA screen is positive. Urinalysis and blood cultures are pending. IMAGING: Per HPI. IMPRESSION: 1. Fever. 2. Small-bowel obstruction. 3. Nausea and vomiting. 4. Dislodgment of nasogastric tube. 5. Positive methicillin-resistant Staphylococcus aureus. 6. CIPRO allergy, reaction unknown. 7. Seizure disorder. 8. Parkinson's disease. PLAN: Continue the vancomycin and Zosyn. Await Surgery followup. We will follow up on morning laboratory values and cultures. Supportive care. Thank you, Dr. Watson, for asking us to participate in this patient's care. Should you have further questions or concerns, please call. The patient was seen and examined and plan of care implemented by Dr. Sami Martinez. SAMI MARTINEZ MD DR: HOMER/lexy JOB#: [id number] / [id number]
[2016-10-05] MEDS: PIPERACILLIN/TAZOBACTAM 3.375 GM in IV NORMAL SALINE 50ML 50 ML IV SCH ×4 (05:43→23:58)
[2016-10-05 06:47] LABS: BASO % 0 % (0-3); EOS % 2 % (0-3); HEMATOCRIT 32.3 % (39.0-53.0); HEMOGLOBIN 10.8 g/dL (13.0-17.5); LYMPH # 1.8 x10^3/uL (1.0-4.8); LYMPH % 20 % (24-48); MEAN CORPUSCULAR HEMOGLOBIN 33 pg (25-35); MEAN CORPUSCULAR HGB CONC 34 g/dL (31-37); MEAN CORPUSCULAR VOLUME 99 fL (79-100); MONO % 8 % (0-9); NEUT % 70 % (31-73); PLATELET COUNT 235 x10^3/uL (140-400); RED BLOOD COUNT 3.28 x10^6/uL (4.30-5.70); RED CELL DISTRIBUTION WIDTH 15.2 % (11.5-14.5); WHITE BLOOD COUNT 9.3 x10^3/uL (4.0-11.0)
[2016-10-05 07:00] VITALS: BP 120/60
[2016-10-05 07:04] LABS: CALCIUM 8.6 mg/dL (8.5-10.1); CREATININE 1.4 mg/dL (0.7-1.3); GFR 48.2; POTASSIUM 4.4 mmol/L (3.5-5.1)
[2016-10-05] MEDS: ENOXAPARIN 40 MG/0.4 ML DISP.SYRIN. SQ SCH (08:09)
[2016-10-05] MEDS: LEVETIRACETAM 500 MG in IV NORMAL SALINE 100ML 100 ML IV SCH (09:30)
--- NOTE | 2016-10-05 10:17 | PDOC ---
SURGICAL PROGRESS NOTE Subjective no issues overnoc without NG Vital Signs Vital Signs Date Time Temp Pulse Resp B/P Pulse Ox O2 Delivery O2 Flow Rate FiO2 10/05/16 10:13 98 Nasal Cannula 2.0 10/05/16 07:00 98.0 90 16 120/60 98.0 I&O Intake and Output 10/05/16 07:00 Intake Total 1155 ml Output Total 0 ml Balance 1155 ml IV Total 1155 ml Output Urine Total 0 ml # Voids 3 PATIENT HAS A MELVIN: No General: Alert Abdomen: Soft Labs Laboratory Tests Test 10/04/16 05:15 10/04/16 18:15 10/05/16 05:00 White Blood Count 11.0x10^3/uL (4.0-11.0) 9.3x10^3/uL (4.0-11.0) Red Blood Count 3.66x10^6/uL (4.30-5.70) 3.28x10^6/uL (4.30-5.70) Hemoglobin 11.8g/dL (13.0-17.5) 10.8g/dL (13.0-17.5) Hematocrit 36.1% (39.0-53.0) 32.3% (39.0-53.0) Mean Corpuscular Volume 99fL (79-100) 99fL (79-100) Mean Corpuscular Hemoglobin 32pg (25-35) 33pg (25-35) Mean Corpuscular Hemoglobin Concent 33g/dL (31-37) 34g/dL (31-37) Red Cell Distribution Width 15.2% (11.5-14.5) 15.2% (11.5-14.5) Platelet Count 251x10^3/uL (140-400) 235x10^3/uL (140-400) Neutrophils (%) (Auto) 77% (31-73) 70% (31-73) Lymphocytes (%) (Auto) 14% (24-48) 20% (24-48) Monocytes (%) (Auto) 9% (0-9) 8% (0-9) Eosinophils (%) (Auto) 1% (0-3) 2% (0-3) Basophils (%) (Auto) 0% (0-3) 0% (0-3) Neutrophils # (Auto) 8.4x10^3uL (1.8-7.7) 6.5x10^3uL (1.8-7.7) Lymphocytes # (Auto) 1.5x10^3/uL (1.0-4.8) 1.8x10^3/uL (1.0-4.8) Monocytes # (Auto) 1.0x10^3/uL (0.0-1.1) 0.8x10^3/uL (0.0-1.1) Eosinophils # (Auto) 0.1x10^3/uL (0.0-0.7) 0.2x10^3/uL (0.0-0.7) Basophils # (Auto) 0.0x10^3/uL (0.0-0.2) 0.0x10^3/uL (0.0-0.2) Sodium Level 142mmol/L (136-145) 141mmol/L (136-145) Potassium Level 4.4mmol/L (3.5-5.1) 4.4mmol/L (3.5-5.1) Chloride Level 104mmol/L (98-107) 106mmol/L (98-107) Carbon Dioxide Level 31mmol/L (21-32) 27mmol/L (21-32) Anion Gap 7 (6-14) 8 (6-14) Blood Urea Nitrogen 14mg/dL (8-26) 23mg/dL (8-26) Creatinine 1.3mg/dL (0.7-1.3) 1.4mg/dL (0.7-1.3) Estimated GFR (Cockcroft-Gault) 52.5 48.2 Glucose Level 140mg/dL (70-99) 114mg/dL (70-99) Calcium Level 8.6mg/dL (8.5-10.1) 8.6mg/dL (8.5-10.1) Magnesium Level 1.9mg/dL (1.8-2.4) Urine Collection Type Unknown Urine Color Yellow Urine Clarity Cloudy Urine pH 8.0 Urine Specific [place] 1.010 Urine Protein Tracemg/dL (NEG-TRACE) Urine Glucose (UA) Negativemg/dL (NEG) Urine Ketones (Stick) Negativemg/dL (NEG) Urine Blood Trace (NEG) Urine Nitrite Negative (NEG) Urine Bilirubin Negative (NEG) Urine Urobilinogen Dipstick 0.2mg/dL (0.2 mg/dL) Urine Leukocyte Esterase Large (NEG) Urine RBC Occ/HPF (0-2) Urine WBC >40/HPF (0-4) Urine Squamous Epithelial Cells Occ/LPF Urine Bacteria Mod/HPF (0-FEW) Laboratory Tests Test 10/04/16 18:15 10/05/16 05:00 Urine Collection Type Unknown Urine Color Yellow Urine Clarity Cloudy Urine pH 8.0 Urine Specific [place] 1.010 Urine Protein Tracemg/dL (NEG-TRACE) Urine Glucose (UA) Negativemg/dL (NEG) Urine Ketones (Stick) Negativemg/dL (NEG) Urine Blood Trace (NEG) Urine Nitrite Negative (NEG) Urine Bilirubin Negative (NEG) Urine Urobilinogen Dipstick 0.2mg/dL (0.2 mg/dL) Urine Leukocyte Esterase Large (NEG) Urine RBC Occ/HPF (0-2) Urine WBC >40/HPF (0-4) Urine Squamous Epithelial Cells Occ/LPF Urine Bacteria Mod/HPF (0-FEW) White Blood Count 9.3x10^3/uL (4.0-11.0) Red Blood Count 3.28x10^6/uL (4.30-5.70) Hemoglobin 10.8g/dL (13.0-17.5) Hematocrit 32.3% (39.0-53.0) Mean Corpuscular Volume 99fL (79-100) Mean Corpuscular Hemoglobin 33pg (25-35) Mean Corpuscular Hemoglobin Concent 34g/dL (31-37) Red Cell Distribution Width 15.2% (11.5-14.5) Platelet Count 235x10^3/uL (140-400) Neutrophils (%) (Auto) 70% (31-73) Lymphocytes (%) (Auto) 20% (24-48) Monocytes (%) (Auto) 8% (0-9) Eosinophils (%) (Auto) 2% (0-3) Basophils (%) (Auto) 0% (0-3) Neutrophils # (Auto) 6.5x10^3uL (1.8-7.7) Lymphocytes # (Auto) 1.8x10^3/uL (1.0-4.8) Monocytes # (Auto) 0.8x10^3/uL (0.0-1.1) Eosinophils # (Auto) 0.2x10^3/uL (0.0-0.7) Basophils # (Auto) 0.0x10^3/uL (0.0-0.2) Sodium Level 141mmol/L (136-145) Potassium Level 4.4mmol/L (3.5-5.1) Chloride Level 106mmol/L (98-107) Carbon Dioxide Level 27mmol/L (21-32) Anion Gap 8 (6-14) Blood Urea Nitrogen 23mg/dL (8-26) Creatinine 1.4mg/dL (0.7-1.3) Estimated GFR (Cockcroft-Gault) 48.2 Glucose Level 114mg/dL (70-99) Calcium Level 8.6mg/dL (8.5-10.1) Problem List Problems Medical Problems: (1) SBO (small bowel obstruction) Status: Acute Assessment/Plan SBO, improved try clears Problems: FRAN GARCIA MD Oct 05, 2016 10:17
--- NOTE | 2016-10-05 10:28 | PDOC ---
PROGRESS NOTES Subjective Subjective feels better. denies nausea and vomiting or abdominal pain. denies BM or flatus. will start clear liquids. afebrile. discussed with dr. Schumacher . lab reviewed. acute abdominal series reviewed. . ng tube dislodged. Objective Objective Vital Signs Date Time Temp Pulse Resp B/P Pulse Ox O2 Delivery O2 Flow Rate FiO2 10/05/16 10:13 98 Nasal Cannula 2.0 10/05/16 07:00 98.0 90 16 120/60 98.0 Intake and Output 10/05/16 07:00 Intake Total 1155 ml Output Total 0 ml Balance 1155 ml IV Total 1155 ml Output Urine Total 0 ml # Voids 3 Physical Exam Abdomen: Normal bowel sounds, Soft, No tenderness Heart: Regular rate, Normal S1, Normal S2 Extremities: No edema General: Alert HEENT: Atraumatic Lungs: Clear to auscultation Neuro: Normal speech, Other (resting tremor hands) Psych/Mental Status: Mood NL Skin: No rashes Assessment Assessment Problems Medical Problems:1. Small-bowel obstruction resolved 2. Seizure disorder. 3. Parkinson's disease. 4. Hypothyroidism. 5. Peripheral neuropathy. 6. Hypertension. BP high 7. Chronic kidney disease stage III. fever resolved on antibiotics. (1) SBO (small bowel obstruction) Status: Acute Plan Plan of Care start clear liquids resume home medications continue iv vancomycin and zosyn blood and urine cultures pending Comment Review of Relevant I have reviewed the following items [place] (where applicable) has been applied. Labs Laboratory Tests Test 10/04/16 05:15 10/04/16 18:15 10/05/16 05:00 White Blood Count 11.0x10^3/uL (4.0-11.0) 9.3x10^3/uL (4.0-11.0) Red Blood Count 3.66x10^6/uL (4.30-5.70) 3.28x10^6/uL (4.30-5.70) Hemoglobin 11.8g/dL (13.0-17.5) 10.8g/dL (13.0-17.5) Hematocrit 36.1% (39.0-53.0) 32.3% (39.0-53.0) Mean Corpuscular Volume 99fL (79-100) 99fL (79-100) Mean Corpuscular Hemoglobin 32pg (25-35) 33pg (25-35) Mean Corpuscular Hemoglobin Concent 33g/dL (31-37) 34g/dL (31-37) Red Cell Distribution Width 15.2% (11.5-14.5) 15.2% (11.5-14.5) Platelet Count 251x10^3/uL (140-400) 235x10^3/uL (140-400) Neutrophils (%) (Auto) 77% (31-73) 70% (31-73) Lymphocytes (%) (Auto) 14% (24-48) 20% (24-48) Monocytes (%) (Auto) 9% (0-9) 8% (0-9) Eosinophils (%) (Auto) 1% (0-3) 2% (0-3) Basophils (%) (Auto) 0% (0-3) 0% (0-3) Neutrophils # (Auto) 8.4x10^3uL (1.8-7.7) 6.5x10^3uL (1.8-7.7) Lymphocytes # (Auto) 1.5x10^3/uL (1.0-4.8) 1.8x10^3/uL (1.0-4.8) Monocytes # (Auto) 1.0x10^3/uL (0.0-1.1) 0.8x10^3/uL (0.0-1.1) Eosinophils # (Auto) 0.1x10^3/uL (0.0-0.7) 0.2x10^3/uL (0.0-0.7) Basophils # (Auto) 0.0x10^3/uL (0.0-0.2) 0.0x10^3/uL (0.0-0.2) Sodium Level 142mmol/L (136-145) 141mmol/L (136-145) Potassium Level 4.4mmol/L (3.5-5.1) 4.4mmol/L (3.5-5.1) Chloride Level 104mmol/L (98-107) 106mmol/L (98-107) Carbon Dioxide Level 31mmol/L (21-32) 27mmol/L (21-32) Anion Gap 7 (6-14) 8 (6-14) Blood Urea Nitrogen 14mg/dL (8-26) 23mg/dL (8-26) Creatinine 1.3mg/dL (0.7-1.3) 1.4mg/dL (0.7-1.3) Estimated GFR (Cockcroft-Gault) 52.5 48.2 Glucose Level 140mg/dL (70-99) 114mg/dL (70-99) Calcium Level 8.6mg/dL (8.5-10.1) 8.6mg/dL (8.5-10.1) Magnesium Level 1.9mg/dL (1.8-2.4) Urine Collection Type Unknown Urine Color Yellow Urine Clarity Cloudy Urine pH 8.0 Urine Specific [place] 1.010 Urine Protein Tracemg/dL (NEG-TRACE) Urine Glucose (UA) Negativemg/dL (NEG) Urine Ketones (Stick) Negativemg/dL (NEG) Urine Blood Trace (NEG) Urine Nitrite Negative (NEG) Urine Bilirubin Negative (NEG) Urine Urobilinogen Dipstick 0.2mg/dL (0.2 mg/dL) Urine Leukocyte Esterase Large (NEG) Urine RBC Occ/HPF (0-2) Urine WBC >40/HPF (0-4) Urine Squamous Epithelial Cells Occ/LPF Urine Bacteria Mod/HPF (0-FEW) Laboratory Tests Test 10/04/16 18:15 10/05/16 05:00 Urine Collection Type Unknown Urine Color Yellow Urine Clarity Cloudy Urine pH 8.0 Urine Specific [place] 1.010 Urine Protein Tracemg/dL (NEG-TRACE) Urine Glucose (UA) Negativemg/dL (NEG) Urine Ketones (Stick) Negativemg/dL (NEG) Urine Blood Trace (NEG) Urine Nitrite Negative (NEG) Urine Bilirubin Negative (NEG) Urine Urobilinogen Dipstick 0.2mg/dL (0.2 mg/dL) Urine Leukocyte Esterase Large (NEG) Urine RBC Occ/HPF (0-2) Urine WBC >40/HPF (0-4) Urine Squamous Epithelial Cells Occ/LPF Urine Bacteria Mod/HPF (0-FEW) White Blood Count 9.3x10^3/uL (4.0-11.0) Red Blood Count 3.28x10^6/uL (4.30-5.70) Hemoglobin 10.8g/dL (13.0-17.5) Hematocrit 32.3% (39.0-53.0) Mean Corpuscular Volume 99fL (79-100) Mean Corpuscular Hemoglobin 33pg (25-35) Mean Corpuscular Hemoglobin Concent 34g/dL (31-37) Red Cell Distribution Width 15.2% (11.5-14.5) Platelet Count 235x10^3/uL (140-400) Neutrophils (%) (Auto) 70% (31-73) Lymphocytes (%) (Auto) 20% (24-48) Monocytes (%) (Auto) 8% (0-9) Eosinophils (%) (Auto) 2% (0-3) Basophils (%) (Auto) 0% (0-3) Neutrophils # (Auto) 6.5x10^3uL (1.8-7.7) Lymphocytes # (Auto) 1.8x10^3/uL (1.0-4.8) Monocytes # (Auto) 0.8x10^3/uL (0.0-1.1) Eosinophils # (Auto) 0.2x10^3/uL (0.0-0.7) Basophils # (Auto) 0.0x10^3/uL (0.0-0.2) Sodium Level 141mmol/L (136-145) Potassium Level 4.4mmol/L (3.5-5.1) Chloride Level 106mmol/L (98-107) Carbon Dioxide Level 27mmol/L (21-32) Anion Gap 8 (6-14) Blood Urea Nitrogen 23mg/dL (8-26) Creatinine 1.4mg/dL (0.7-1.3) Estimated GFR (Cockcroft-Gault) 48.2 Glucose Level 114mg/dL (70-99) Calcium Level 8.6mg/dL (8.5-10.1) Medications Current Medications Fentanyl Citrate 50 mcg 50 mcg PRN Q15MIN PRN IV PAIN GREATER THAN 3/10 Last administered on 09/30/16at 19:35; Start 09/30/16 at 17:30; Stop 10/01/16 at 04 :24; Status DC Lactated Ringer's (Iv Lactated Ringers) 1,000 ml @ 100 mls/hr Q10H IV Last administered on 09/30/16at 19:35; Start 09/30/16 at 17:28; Stop 10/01/16 at 03 :27; Status DC Ondansetron HCl (Zofran) 4 mg 1X ONCE IV Last administered on 09/30/16at 17:44 ; Start 09/30/16 at 17:30; Stop 09/30/16 at 17:32; Status DC Fentanyl Citrate (Fentanyl 2ml Vial) 50 mcg 1X ONCE IV ; Start 09/30/16 at 19: 15; Stop 10/01/16 at 04:24; Status DC Ondansetron HCl (Zofran) 4 mg PRN Q8HRS PRN IV NAUSEA/VOMITING Last administered on 09/30/16at 22:07; Start 09/30/16 at 19:15; Stop 10/01/16 at 19 :14; Status DC Fentanyl Citrate 50 mcg 50 mcg PRN Q2HR PRN IV PAIN Last administered on at 16:54; Start 09/30/16 at 19:15; Stop 10/01/16 at 19:14; Status DC Sodium Chloride 1,000 ml @ 100 mls/hr Q10H IV ; Start 09/30/16 at 19:30; Stop 10/01/16 at 04:24; Status DC Potassium Chloride/Dextrose/ Sod Cl (KCl 20 Meq In D5W-1/2 NS) 1,000 ml @ 125 mls/hr Q8H IV Last administered on 10/04/16at 06:02; Start 09/30/16 at 20:00; Stop 10/04/16 at 10:21; Status DC Enoxaparin Sodium 40 mg 40 mg Q24H SQ Last administered on 10/05/16 08:09; Start 10/01/16 at 09:00 Levetiracetam/ Sodium Chloride (Keppra/Iv Sodium Chloride 0.9% 100ml) 105 ml @ 400 mls/hr Q12HR IV Last administered on 10/05/16 09:30; Start 09/30/16 at 21: 00 Morphine Sulfate 2 mg PRN Q4HRS PRN IV SEVERE PAIN Last administered on 10:13; Start 09/30/16 at 19:30 Acetaminophen (Tylenol) 650 mg PRN Q6HRS PRN NC MILD PAIN / TEMP; Start at 19:30 Ondansetron HCl (Zofran) 4 mg PRN Q6HRS PRN IV NAUSEA/VOMITING Last administered on 10/01/16at 20:01; Start 09/30/16 at 19:30 Benzocaine (Hurricaine One) 1 spray STK-MED ONCE .ROUTE ; Start 09/30/16 at 19: 51; Stop 09/30/16 at 19:52; Status DC Morphine Sulfate 4 mg PRN Q4HRS PRN IV PAIN Last administered on 10/05/16 08:08 ; Start 10/01/16 at 20:00 Clonidine HCl 1 patch 1 patch WEEKLY TD Last administered on 10/03/16at 12:30; Start 10/03/16 at 10:00 Piperacillin Sod/ Tazobactam Sod/ Sodium Chloride (Zosyn/Iv Sodium Chloride 0.9 % 50ml) 50 ml @ 100 mls/hr Q6HRS IV Last administered on 10/05/16 05:43; Start 10/04/16 at 11:00 Vancomycin HCl 1 each 1 each PRN DAILY PRN MC SEE COMMENTS Last administered on 10/04/16at 12:48; Start 10/04/16 at 10:15 Vancomycin HCl/ Sodium Chloride (Iv Sodium Chloride 0.9% 250ml) 250 ml @ 250 mls/hr Q24H IV ; Start 10/04/16 at 10:15; Status UNV Labetalol HCl (Normodyne) 20 mg PRN Q6HRS PRN IVP HYPERTENSION, SEE COMMENTS; Start 10/04/16 at 10:15 Hydralazine HCl 10 mg 10 mg PRN Q6HRS PRN IVP ELEVATED BP, SEE COMMENTS; Start 10/04/16 at 10:15 Amino Acids/ Glycerin/ Electrolytes 1,000 ml @ 80 mls/hr [id number] IV Last administered on 10/05/16 04:10; Start 10/04/16 at 10:15 Vancomycin HCl 2 gm/Sodium Chloride 500 ml @ 250 mls/hr 1X ONCE IV Last administered on 10/04/16at 11:26; Start 10/04/16 at 10:45; Stop 10/04/16 at 12 :44; Status DC Vancomycin HCl/ Sodium Chloride (Iv Sodium Chloride 0.9% 500ml Bag) 500 ml @ 250 mls/hr Q24H IV ; Start 10/05/16 at 12:00 Vancomycin HCl 1 each 1X ONCE MC ; Start 10/06/16 at 11:30; Stop 10/06/16 at 11: 31 Active Scripts Active Hydrocodone-Apap 5-325 (Hydrocodone Bit/Acetaminophen) 1 Each Tablet 1 Tab PO PRN Q6HRS PRN Metoprolol Succinate ( Xl ) (Metoprolol Succinate) 25 Mg Tab.er.24h 25 Mg PO DAILY Reported Flomax (Tamsulosin Hcl) 0.4 Mg Cap.er.24h 1 Cap PO QHS Tramadol Hcl 100 Mg Tab.er.24h 100 Mg PO QID Levetiracetam 250 Mg Tablet 250 Mg PO BID Dulcolax (Bisacodyl) 10 Mg Supp.rect 10 Mg RC PRN DAILY PRN Maalox Advanced Suspension (Mag Hydrox/Al Hydrox/Simeth) 770 Ml Oral.susp 30 Ml PO Q2HR PRN Milk Of Magnesia (Magnesium Hydroxide) 400 Mg/5 Ml Oral.susp 30 Ml PO DAILY PRN Robitussin Cough-Chest Dm Liq (Guaifenesin/Dextromethorphan) 118 Ml Liquid 10 Ml PO Q4HRS PRN Trazodone Hcl 50 Mg Tablet 1 Tab PO QHS Tylenol (Acetaminophen) 325 Mg Tablet 650 Mg PO Q6HRS PRN Pramipexole Dihydrochloride (Pramipexole Di-Hcl) 0.5 Mg Tablet 0.5 Mg PO TID Simvastatin 20 Mg Tablet 1 Tab PO QHS Levothyroxine Sodium 100 Mcg Tablet 1 Tab PO DAILY Gabapentin 800 Mg Tablet 800 Mg PO QID Sinemet 25-100 Mg Tablet (Carbidopa/Levodopa) 1 Each Tablet 2 Tab PO TID Aspirin 81 Mg Tab.chew 1 Tab PO DAILY Vitals/I & O Vital Sign - Last 24 Hours 10/04/16 10/04/16 10/04/16 10/04/16 10:41 11:27 13:25 15:00 Temp 100.0 97.7 100.0 97.7 Pulse 104 104 Resp 19 20 B/P 154/93 Pulse Ox 89 89 89 96 O2 Delivery Nasal Cannula Nasal Cannula Nasal Cannula Room Air O2 Flow Rate 2.0 2.0 2.0 12/31/16 12/31/16 12/31/16 12/31/16 16:14 19:00 19:23 19:57 Temp 97.5 97.5 Pulse 100 Resp 20 B/P 189/75 Pulse Ox 96 98 96 O2 Delivery Nasal Cannula Nasal Cannula Nasal Cannula Nasal Cannula O2 Flow Rate 2.0 2.0 2.0 2.0 10/04/16 10/04/16 10/04/16 10/05/16 20:44 23:00 23:44 01:39 Temp 97.1 97.1 Pulse 98 Resp 20 B/P 15/73 Pulse Ox 96 98 98 98 O2 Delivery Nasal Cannula Nasal Cannula Nasal Cannula Nasal Cannula O2 Flow Rate 2.0 2.0 2.0 2.0 10/05/16 10/05/16 10/05/16 10/05/16 03:00 04:11 04:41 05:44 Temp 98.1 98.1 Pulse 98 Resp 20 B/P 189/86 Pulse Ox 98 98 98 98 O2 Delivery Nasal Cannula Nasal Cannula Nasal Cannula Nasal Cannula O2 Flow Rate 2.0 2.0 2.0 2.0 10/05/16 10/05/16 10/05/16 10/05/16 06:14 07:00 08:08 10:13 Temp 98.0 98.0 Pulse 90 Resp 16 B/P 120/60 Pulse Ox 98 94 98 98 O2 Delivery Nasal Cannula Nasal Cannula Nasal Cannula Nasal Cannula O2 Flow Rate 2.0 2.0 2.0 2.0 Intake and Output 10/04/16 10/04/16 10/05/16 15:00 23:00 07:00 Intake Total 1155 ml Output Total 0 ml Balance 1155 ml RICHARD [place] MD Oct 05, 2016 10:28
[2016-10-05] MEDS: LEVOTHYROXINE 100 MCG TABLET PO SCH (10:30)
[2016-10-05 11:00] VITALS: BP 141/70
[2016-10-05] MEDS: LEVETIRACETAM 250 MG TABLET. PO SCH ×2 (11:00→21:12)
[2016-10-05] MEDS: PRAMIPEXOLE 0.25 MG TABLET. PO SCH ×3 (11:00→21:11)
[2016-10-05] MEDS: ASPIRIN 81 MG TAB.CHEW PO SCH (11:00)
[2016-10-05] MEDS: CARBIDOPA/LEVODOPA CR 50/200MG TABLET.SA PO SCH ×3 (11:00→21:11)
--- NOTE | 2016-10-05 13:08 | PDOC ---
Infectious Disease Note Subjective Subjective Better. No cough or vomit. + Flatus ROS ROS GEN: Denies fevers, chills, sweats HEENT: Denies blurred vision, sore throat CV: Denies chest pain RESP: Denies shortness of air, cough GI: Denies n/v/d NEURO: Denies confusion, dizziness MSK: Denies weakness, joint pain/swelling Vital Sign Vital Signs Vital Signs Date Time Temp Pulse Resp B/P Pulse Ox O2 Delivery O2 Flow Rate FiO2 10/05/16 11:00 98.0 78 16 141/70 98 Nasal Cannula 2.0 98.0 Physical Exam PHYSICAL EXAM GENERAL: NAD, Alert HEENT: PERRL, OC/OP -dry NECK: Supple, no JVD, no LN LUNGS: Clear HEART: S1S2, no gallop, no murmur ABD: Soft, NT, no organomegaly, no rebound, obese EXT: 1 to 2 edema, no cyanosis 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, 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, no focal neurologic deficit SKIN: No rash IV: ok Labs Lab Laboratory Tests Test 10/04/16 18:15 10/05/16 05:00 Urine Collection Type Unknown Urine Color Yellow Urine Clarity Cloudy Urine pH 8.0 Urine Specific [place] 1.010 Urine Protein Tracemg/dL (NEG-TRACE) Urine Glucose (UA) Negativemg/dL (NEG) Urine Ketones (Stick) Negativemg/dL (NEG) Urine Blood Trace (NEG) Urine Nitrite Negative (NEG) Urine Bilirubin Negative (NEG) Urine Urobilinogen Dipstick 0.2mg/dL (0.2 mg/dL) Urine Leukocyte Esterase Large (NEG) Urine RBC Occ/HPF (0-2) Urine WBC >40/HPF (0-4) Urine Squamous Epithelial Cells Occ/LPF Urine Bacteria Mod/HPF (0-FEW) White Blood Count 9.3x10^3/uL (4.0-11.0) Red Blood Count 3.28x10^6/uL (4.30-5.70) Hemoglobin 10.8g/dL (13.0-17.5) Hematocrit 32.3% (39.0-53.0) Mean Corpuscular Volume 99fL (79-100) Mean Corpuscular Hemoglobin 33pg (25-35) Mean Corpuscular Hemoglobin Concent 34g/dL (31-37) Red Cell Distribution Width 15.2% (11.5-14.5) Platelet Count 235x10^3/uL (140-400) Neutrophils (%) (Auto) 70% (31-73) Lymphocytes (%) (Auto) 20% (24-48) Monocytes (%) (Auto) 8% (0-9) Eosinophils (%) (Auto) 2% (0-3) Basophils (%) (Auto) 0% (0-3) Neutrophils # (Auto) 6.5x10^3uL (1.8-7.7) Lymphocytes # (Auto) 1.8x10^3/uL (1.0-4.8) Monocytes # (Auto) 0.8x10^3/uL (0.0-1.1) Eosinophils # (Auto) 0.2x10^3/uL (0.0-0.7) Basophils # (Auto) 0.0x10^3/uL (0.0-0.2) Sodium Level 141mmol/L (136-145) Potassium Level 4.4mmol/L (3.5-5.1) Chloride Level 106mmol/L (98-107) Carbon Dioxide Level 27mmol/L (21-32) Anion Gap 8 (6-14) Blood Urea Nitrogen 23mg/dL (8-26) Creatinine 1.4mg/dL (0.7-1.3) Estimated GFR (Cockcroft-Gault) 48.2 Glucose Level 114mg/dL (70-99) Calcium Level 8.6mg/dL (8.5-10.1) Objective Assessment Fever - better Small bowel obstruction - seems improved and no NGT N/V - better Dislodgement of NGT - out Hiatal hernia + MRSA Cipro allergy. Seizure disorder Parkinson's disease h/o UTI: Citrobacter & Klebsiella h/o E. coli bacteremia Plan Plan of Care vanc and Zosyn F/u UC and BC f/u am labs and cultures SAMI MARTINEZ MD Oct 05, 2016 13:08
[2016-10-05] MEDS: VANCOMYCIN 1.5 GM in IV NORMAL SALINE 500ML BAG 500 ML IV SCH (13:12)
[2016-10-05] MEDS: TRAMADOL 50 MG TABLET. PO SCH ×3 (13:12→21:12)
[2016-10-05] MEDS: METOPROLOL SUCC 24HR ER 25 MG TAB.ER.24H. PO SCH (13:13)
[2016-10-05] MEDS: GABAPENTIN 300 MG CAPSULE. PO SCH ×3 (13:14→21:11)
[2016-10-05] MEDS: VANCOMYCIN PER PHARMACY MC PRN (13:52)
[2016-10-05 15:01] VITALS: BP 132/62
[2016-10-05 19:00] VITALS: BP 153/68
[2016-10-05] MEDS: TAMSULOSIN 0.4 MG CAP.ER.24H. PO SCH (21:12)
[2016-10-05] MEDS: SIMVASTATIN 20 MG TABLET PO SCH (21:12)
[2016-10-05 23:10] VITALS: BP 156/71
[2016-10-06] MEDS: ACETAMINOPHEN 325 MG TABLET. PO PRN ×4 (00:02→19:16)
[2016-10-06 03:34] VITALS: BP 135/59
[2016-10-06] MEDS: PIPERACILLIN/TAZOBACTAM 3.375 GM in IV NORMAL SALINE 50ML 50 ML IV SCH ×4 (06:08→23:58)
[2016-10-06] MEDS: LEVOTHYROXINE 100 MCG TABLET PO SCH (06:08)
[2016-10-06 07:00] VITALS: BP 143/49
[2016-10-06 07:11] LABS: BASO % 0 % (0-3); EOS % 4 % (0-3); HEMATOCRIT 30.6 % (39.0-53.0); HEMOGLOBIN 9.7 g/dL (13.0-17.5); LYMPH # 1.4 x10^3/uL (1.0-4.8); LYMPH % 17 % (24-48); MEAN CORPUSCULAR HEMOGLOBIN 32 pg (25-35); MEAN CORPUSCULAR HGB CONC 32 g/dL (31-37); MEAN CORPUSCULAR VOLUME 102 fL (79-100); MONO % 9 % (0-9); NEUT % 70 % (31-73); PLATELET COUNT 204 x10^3/uL (140-400); RED BLOOD COUNT 3.01 x10^6/uL (4.30-5.70); RED CELL DISTRIBUTION WIDTH 15.6 % (11.5-14.5); WHITE BLOOD COUNT 7.8 x10^3/uL (4.0-11.0)
[2016-10-06 07:18] LABS: CALCIUM 8.6 mg/dL (8.5-10.1); CREATININE 1.5 mg/dL (0.7-1.3); GFR 44.5; POTASSIUM 4.3 mmol/L (3.5-5.1)
[2016-10-06] MEDS: TRAMADOL 50 MG TABLET. PO SCH ×4 (08:40→20:42)
[2016-10-06] MEDS: ASPIRIN 81 MG TAB.CHEW PO SCH (08:40)
[2016-10-06] MEDS: METOPROLOL SUCC 24HR ER 25 MG TAB.ER.24H. PO SCH (08:41)
[2016-10-06] MEDS: LEVETIRACETAM 250 MG TABLET. PO SCH ×2 (08:41→20:41)
[2016-10-06] MEDS: GABAPENTIN 300 MG CAPSULE. PO SCH ×4 (08:41→20:42)
[2016-10-06] MEDS: CARBIDOPA/LEVODOPA CR 50/200MG TABLET.SA PO SCH ×3 (08:41→20:42)
[2016-10-06] MEDS: ENOXAPARIN 40 MG/0.4 ML DISP.SYRIN. SQ SCH (08:43)
--- NOTE | 2016-10-06 09:05 | PDOC ---
Infectious Disease Note Subjective Subjective Better. No cough or vomit. + Flatus but no BM Has pain in left hand ROS ROS GEN: Denies fevers, chills, sweats HEENT: Denies blurred vision, sore throat CV: Denies chest pain RESP: Denies shortness of air, cough GI: Denies n/v/d NEURO: Denies confusion, dizziness MSK: Denies weakness Vital Sign Vital Signs Vital Signs Date Time Temp Pulse Resp B/P Pulse Ox O2 Delivery O2 Flow Rate FiO2 10/06/16 08:41 78 143/49 10/06/16 08:40 Nasal Cannula 10/06/16 07:00 97.9 20 97 2.0 97.9 Physical Exam PHYSICAL EXAM GENERAL: NAD, Alert HEENT: PERRL, OC/OP -dry NECK: Supple, no JVD, no LN LUNGS: Clear HEART: S1S2, no gallop, no murmur ABD: Soft, NT, no organomegaly, no rebound, obese. + BS EXT: 1 to 2 edema, no cyanosis. Left hand with mild erythema and tender/warm. 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, no focal neurologic deficit SKIN: No rash IV: ok Labs Lab Laboratory Tests Test 10/06/16 06:30 White Blood Count 7.8x10^3/uL (4.0-11.0) Red Blood Count 3.01x10^6/uL (4.30-5.70) Hemoglobin 9.7g/dL (13.0-17.5) Hematocrit 30.6% (39.0-53.0) Mean Corpuscular Volume 102fL (79-100) Mean Corpuscular Hemoglobin 32pg (25-35) Mean Corpuscular Hemoglobin Concent 32g/dL (31-37) Red Cell Distribution Width 15.6% (11.5-14.5) Platelet Count 204x10^3/uL (140-400) Neutrophils (%) (Auto) 70% (31-73) Lymphocytes (%) (Auto) 17% (24-48) Monocytes (%) (Auto) 9% (0-9) Eosinophils (%) (Auto) 4% (0-3) Basophils (%) (Auto) 0% (0-3) Neutrophils # (Auto) 5.5x10^3uL (1.8-7.7) Lymphocytes # (Auto) 1.4x10^3/uL (1.0-4.8) Monocytes # (Auto) 0.7x10^3/uL (0.0-1.1) Eosinophils # (Auto) 0.3x10^3/uL (0.0-0.7) Basophils # (Auto) 0.0x10^3/uL (0.0-0.2) Sodium Level 137mmol/L (136-145) Potassium Level 4.3mmol/L (3.5-5.1) Chloride Level 103mmol/L (98-107) Carbon Dioxide Level 27mmol/L (21-32) Anion Gap 7 (6-14) Blood Urea Nitrogen 31mg/dL (8-26) Creatinine 1.5mg/dL (0.7-1.3) Estimated GFR (Cockcroft-Gault) 44.5 Glucose Level 108mg/dL (70-99) Calcium Level 8.6mg/dL (8.5-10.1) Objective Assessment Fever - better Small bowel obstruction - seems improved and no NGT Left hand pain and warmth N/V - better Dislodgement of NGT - out Hiatal hernia + MRSA Cipro allergy. Seizure disorder Parkinson's disease h/o UTI: Citrobacter & Klebsiella h/o E. coli bacteremia Plan Plan of Care vanc and Zosyn Add uric acid and monitor hand. d/w nursing. Elevation F/u UC and BC f/u am labs and cultures SAMI MARTINEZ MD Oct 06, 2016 09:05
[2016-10-06] MEDS: PRAMIPEXOLE 0.25 MG TABLET. PO SCH ×3 (09:58→20:42)
[2016-10-06] MEDS: AA 3%/ELECTROLYTE-TPN SOLN/GLY 1,000 ML IV SCH ×3 (09:59→11:32)
--- NOTE | 2016-10-06 10:20 | PDOC ---
PROGRESS NOTES Subjective Subjective has left hand and wrist swelling and pain and some redness dorsum left hand and tender to tough. denies trauma. uric acid level normal. passed flatus. tolerates clear liquids. afebrile. Objective Objective Vital Signs Date Time Temp Pulse Resp B/P Pulse Ox O2 Delivery O2 Flow Rate FiO2 10/06/16 10:00 Nasal Cannula 10/06/16 08:41 78 143/49 10/06/16 07:00 97.9 20 97 2.0 97.9 Intake and Output 10/06/16 07:00 Intake Total 1600 ml Balance 1600 ml Intake Oral 240 ml IV Total 960 ml Other 400 ml Physical Exam Abdomen: Normal bowel sounds, Soft, No tenderness Heart: Regular rate, Normal S1, Normal S2 Extremities: No edema General: Alert HEENT: Atraumatic Lungs: Clear to auscultation MUSCULOSKELETAL: Other (sweling and tenderness dorsum left hand and wrist with some erythema dorsum of hand and 2nd MCP joint) Neuro: Normal speech Psych/Mental Status: Mood NL Skin: No rashes Assessment Assessment Problems Medical Problems:. Small-bowel obstruction resolved 2. Seizure disorder. 3. Parkinson's disease. 4. Hypothyroidism. 5. Peripheral neuropathy. 6. Hypertension. BP high 7. Chronic kidney disease stage III. fever resolved on antibiotics. suspect gout left hand and wrist (1) SBO (small bowel obstruction) Status: Acute Plan Plan of Care prednisone advance to full liquids decrease PPN continue iv vancomycin and zosyn cultures pending Comment Review of Relevant I have reviewed the following items [place] (where applicable) has been applied. Labs Laboratory Tests Test 10/04/16 18:15 10/05/16 05:00 10/06/16 06:30 Urine Collection Type Unknown Urine Color Yellow Urine Clarity Cloudy Urine pH 8.0 Urine Specific Prentice 1.010 Urine Protein Tracemg/dL (NEG-TRACE) Urine Glucose (UA) Negativemg/dL (NEG) Urine Ketones (Stick) Negativemg/dL (NEG) Urine Blood Trace (NEG) Urine Nitrite Negative (NEG) Urine Bilirubin Negative (NEG) Urine Urobilinogen Dipstick 0.2mg/dL (0.2 mg/dL) Urine Leukocyte Esterase Large (NEG) Urine RBC Occ/HPF (0-2) Urine WBC >40/HPF (0-4) Urine Squamous Epithelial Cells Occ/LPF Urine Bacteria Mod/HPF (0-FEW) White Blood Count 9.3x10^3/uL (4.0-11.0) 7.8x10^3/uL (4.0-11.0) Red Blood Count 3.28x10^6/uL (4.30-5.70) 3.01x10^6/uL (4.30-5.70) Hemoglobin 10.8g/dL (13.0-17.5) 9.7g/dL (13.0-17.5) Hematocrit 32.3% (39.0-53.0) 30.6% (39.0-53.0) Mean Corpuscular Volume 99fL (79-100) 102fL (79-100) Mean Corpuscular Hemoglobin 33pg (25-35) 32pg (25-35) Mean Corpuscular Hemoglobin Concent 34g/dL (31-37) 32g/dL (31-37) Red Cell Distribution Width 15.2% (11.5-14.5) 15.6% (11.5-14.5) Platelet Count 235x10^3/uL (140-400) 204x10^3/uL (140-400) Neutrophils (%) (Auto) 70% (31-73) 70% (31-73) Lymphocytes (%) (Auto) 20% (24-48) 17% (24-48) Monocytes (%) (Auto) 8% (0-9) 9% (0-9) Eosinophils (%) (Auto) 2% (0-3) 4% (0-3) Basophils (%) (Auto) 0% (0-3) 0% (0-3) Neutrophils # (Auto) 6.5x10^3uL (1.8-7.7) 5.5x10^3uL (1.8-7.7) Lymphocytes # (Auto) 1.8x10^3/uL (1.0-4.8) 1.4x10^3/uL (1.0-4.8) Monocytes # (Auto) 0.8x10^3/uL (0.0-1.1) 0.7x10^3/uL (0.0-1.1) Eosinophils # (Auto) 0.2x10^3/uL (0.0-0.7) 0.3x10^3/uL (0.0-0.7) Basophils # (Auto) 0.0x10^3/uL (0.0-0.2) 0.0x10^3/uL (0.0-0.2) Sodium Level 141mmol/L (136-145) 137mmol/L (136-145) Potassium Level 4.4mmol/L (3.5-5.1) 4.3mmol/L (3.5-5.1) Chloride Level 106mmol/L (98-107) 103mmol/L (98-107) Carbon Dioxide Level 27mmol/L (21-32) 27mmol/L (21-32) Anion Gap 8 (6-14) 7 (6-14) Blood Urea Nitrogen 23mg/dL (8-26) 31mg/dL (8-26) Creatinine 1.4mg/dL (0.7-1.3) 1.5mg/dL (0.7-1.3) Estimated GFR (Cockcroft-Gault) 48.2 44.5 Glucose Level 114mg/dL (70-99) 108mg/dL (70-99) Calcium Level 8.6mg/dL (8.5-10.1) 8.6mg/dL (8.5-10.1) Uric Acid 3.4mg/dL (3.5-7.2) Laboratory Tests Test 10/06/16 06:30 White Blood Count 7.8x10^3/uL (4.0-11.0) Red Blood Count 3.01x10^6/uL (4.30-5.70) Hemoglobin 9.7g/dL (13.0-17.5) Hematocrit 30.6% (39.0-53.0) Mean Corpuscular Volume 102fL (79-100) Mean Corpuscular Hemoglobin 32pg (25-35) Mean Corpuscular Hemoglobin Concent 32g/dL (31-37) Red Cell Distribution Width 15.6% (11.5-14.5) Platelet Count 204x10^3/uL (140-400) Neutrophils (%) (Auto) 70% (31-73) Lymphocytes (%) (Auto) 17% (24-48) Monocytes (%) (Auto) 9% (0-9) Eosinophils (%) (Auto) 4% (0-3) Basophils (%) (Auto) 0% (0-3) Neutrophils # (Auto) 5.5x10^3uL (1.8-7.7) Lymphocytes # (Auto) 1.4x10^3/uL (1.0-4.8) Monocytes # (Auto) 0.7x10^3/uL (0.0-1.1) Eosinophils # (Auto) 0.3x10^3/uL (0.0-0.7) Basophils # (Auto) 0.0x10^3/uL (0.0-0.2) Sodium Level 137mmol/L (136-145) Potassium Level 4.3mmol/L (3.5-5.1) Chloride Level 103mmol/L (98-107) Carbon Dioxide Level 27mmol/L (21-32) Anion Gap 7 (6-14) Blood Urea Nitrogen 31mg/dL (8-26) Creatinine 1.5mg/dL (0.7-1.3) Estimated GFR (Cockcroft-Gault) 44.5 Glucose Level 108mg/dL (70-99) Uric Acid 3.4mg/dL (3.5-7.2) Calcium Level 8.6mg/dL (8.5-10.1) Microbiology 10/04/16 Blood Culture - Preliminary, Resulted NO GROWTH AFTER 1 DAY Medications Current Medications Fentanyl Citrate 50 mcg 50 mcg PRN Q15MIN PRN IV PAIN GREATER THAN 3/10 Last administered on 09/30/16at 19:35; Start 09/30/16 at 17:30; Stop 10/01/16 at 04 :24; Status DC Lactated Ringer's (Iv Lactated Ringers) 1,000 ml @ 100 mls/hr Q10H IV Last administered on 09/30/16at 19:35; Start 09/30/16 at 17:28; Stop 10/01/16 at 03 :27; Status DC Ondansetron HCl (Zofran) 4 mg 1X ONCE IV Last administered on 09/30/16at 17:44 ; Start 09/30/16 at 17:30; Stop 09/30/16 at 17:32; Status DC Fentanyl Citrate (Fentanyl 2ml Vial) 50 mcg 1X ONCE IV ; Start 09/30/16 at 19: 15; Stop 10/01/16 at 04:24; Status DC Ondansetron HCl (Zofran) 4 mg PRN Q8HRS PRN IV NAUSEA/VOMITING Last administered on 09/30/16at 22:07; Start 09/30/16 at 19:15; Stop 10/01/16 at 19 :14; Status DC Fentanyl Citrate 50 mcg 50 mcg PRN Q2HR PRN IV PAIN Last administered on at 16:54; Start 09/30/16 at 19:15; Stop 10/01/16 at 19:14; Status DC Sodium Chloride 1,000 ml @ 100 mls/hr Q10H IV ; Start 09/30/16 at 19:30; Stop 10/01/16 at 04:24; Status DC Potassium Chloride/Dextrose/ Sod Cl (KCl 20 Meq In D5W-1/2 NS) 1,000 ml @ 125 mls/hr Q8H IV Last administered on 10/04/16at 06:02; Start 09/30/16 at 20:00; Stop 10/04/16 at 10:21; Status DC Enoxaparin Sodium 40 mg 40 mg Q24H SQ Last administered on 10/06/16 08:43; Start 10/01/16 at 09:00 Levetiracetam/ Sodium Chloride (Keppra/Iv Sodium Chloride 0.9% 100ml) 105 ml @ 400 mls/hr Q12HR IV Last administered on 10/05/16 09:30; Start 09/30/16 at 21: 00; Stop 10/05/16 at 10:24; Status DC Morphine Sulfate 2 mg PRN Q4HRS PRN IV SEVERE PAIN Last administered on 10:13; Start 09/30/16 at 19:30; Stop 10/05/16 at 10:24; Status DC Acetaminophen (Tylenol) 650 mg PRN Q6HRS PRN [place] MILD PAIN / TEMP; Start at 19:30; Stop 10/05/16 at 10:24; Status DC Ondansetron HCl (Zofran) 4 mg PRN Q6HRS PRN IV NAUSEA/VOMITING Last administered on 10/01/16at 20:01; Start 09/30/16 at 19:30 Benzocaine (Hurricaine One) 1 spray STK-MED ONCE .ROUTE ; Start 09/30/16 at 19: 51; Stop 09/30/16 at 19:52; Status DC Morphine Sulfate 4 mg PRN Q4HRS PRN IV PAIN Last administered on 10/05/16 08:08 ; Start 10/01/16 at 20:00; Stop 10/05/16 at 10:24; Status DC Clonidine HCl 1 patch 1 patch WEEKLY TD Last administered on 10/03/16at 12:30; Start 10/03/16 at 10:00; Stop 10/05/16 at 10:24; Status DC Piperacillin Sod/ Tazobactam Sod/ Sodium Chloride (Zosyn/Iv Sodium Chloride 0.9 % 50ml) 50 ml @ 100 mls/hr Q6HRS IV Last administered on 10/06/16 06:08; Start 10/04/16 at 11:00 Vancomycin HCl 1 each 1 each PRN DAILY PRN MC SEE COMMENTS Last administered on 10/05/16 13:52; Start 10/04/16 at 10:15 Vancomycin HCl/ Sodium Chloride (Iv Sodium Chloride 0.9% 250ml) 250 ml @ 250 mls/hr Q24H IV ; Start 10/04/16 at 10:15; Status UNV Labetalol HCl (Normodyne) 20 mg PRN Q6HRS PRN IVP HYPERTENSION, SEE COMMENTS; Start 10/04/16 at 10:15; Stop 10/05/16 at 10:24; Status DC Hydralazine HCl 10 mg 10 mg PRN Q6HRS PRN IVP ELEVATED BP, SEE COMMENTS; Start 10/04/16 at 10:15 Amino Acids/ Glycerin/ Electrolytes 1,000 ml @ 60 mls/hr [id number] IV Last administered on 10/06/16 09:59; Start 10/04/16 at 10:15 Vancomycin HCl 2 gm/Sodium Chloride 500 ml @ 250 mls/hr 1X ONCE IV Last administered on 10/04/16at 11:26; Start 10/04/16 at 10:45; Stop 10/04/16 at 12 :44; Status DC Vancomycin HCl/ Sodium Chloride (Iv Sodium Chloride 0.9% 500ml Bag) 500 ml @ 250 mls/hr Q24H IV Last administered on 10/05/16 13:12; Start 10/05/16 at 12:00 Vancomycin HCl 1 each 1X ONCE MC ; Start 10/06/16 at 11:30; Stop 10/06/16 at 11: 31 Aspirin (Children'S Aspirin) 81 mg DAILYWBKFT PO Last administered on 10/06/16 08:40; Start 10/05/16 at 11:00 Gabapentin (Neurontin) 600 mg QID PO Last administered on 10/06/16 08:41; Start 10/05/16 at 13:00 Levetiracetam (Keppra) 250 mg BID PO Last administered on 10/06/16 08:41; Start 10/05/16 at 11:00 Levothyroxine Sodium (Synthroid) 100 mcg DAILY07 PO Last administered on 06:08; Start 10/05/16 at 10:30 Metoprolol Succinate (Toprol Xl) 25 mg DAILY PO Last administered on 10/06/16 08:41; Start 10/05/16 at 11:00 Pramipexole Dihydrochloride (miraPEX) 0.5 mg [id number] PO Last administered on 10/06 09:58; Start 10/05/16 at 11:00 Simvastatin (Zocor) 20 mg HS PO Last administered on 10/05/16 21:12; Start 10/05 at 21:00 Carbidopa/Levodopa (Sinemet Cr) 1 tab.sa TID PO Last administered on 10/06/16 08:41; Start 10/05/16 at 11:00 Tamsulosin HCl (Flomax) 0.4 mg QHS PO Last administered on 10/05/16 21:12; Start 10/05/16 at 21:00 Tramadol HCl (Ultram) 50 mg QID PO Last administered on 10/06/16 08:40; Start 10/05/16 at 13:00 Acetaminophen (Tylenol) 650 mg PRN Q4HRS PRN PO MILD PAIN / TEMP Last administered on 10/06/16 06:11; Start 10/05/16 at 10:15 Active Scripts Active Hydrocodone-Apap 5-325 (Hydrocodone Bit/Acetaminophen) 1 Each Tablet 1 Tab PO PRN Q6HRS PRN Metoprolol Succinate ( Xl ) (Metoprolol Succinate) 25 Mg Tab.er.24h 25 Mg PO DAILY Reported Flomax (Tamsulosin Hcl) 0.4 Mg Cap.er.24h 1 Cap PO QHS Tramadol Hcl 100 Mg Tab.er.24h 100 Mg PO QID Levetiracetam 250 Mg Tablet 250 Mg PO BID Dulcolax (Bisacodyl) 10 Mg Supp.rect 10 Mg RC PRN DAILY PRN Maalox Advanced Suspension (Mag Hydrox/Al Hydrox/Simeth) 770 Ml Oral.susp 30 Ml PO Q2HR PRN Milk Of Magnesia (Magnesium Hydroxide) 400 Mg/5 Ml Oral.susp 30 Ml PO DAILY PRN Robitussin Cough-Chest Dm Liq (Guaifenesin/Dextromethorphan) 118 Ml Liquid 10 Ml PO Q4HRS PRN Trazodone Hcl 50 Mg Tablet 1 Tab PO QHS Tylenol (Acetaminophen) 325 Mg Tablet 650 Mg PO Q6HRS PRN Pramipexole Dihydrochloride (Pramipexole Di-Hcl) 0.5 Mg Tablet 0.5 Mg PO TID Simvastatin 20 Mg Tablet 1 Tab PO QHS Levothyroxine Sodium 100 Mcg Tablet 1 Tab PO DAILY Gabapentin 800 Mg Tablet 800 Mg PO QID Sinemet 25-100 Mg Tablet (Carbidopa/Levodopa) 1 Each Tablet 2 Tab PO TID Aspirin 81 Mg Tab.chew 1 Tab PO DAILY Vitals/I & O Vital Sign - Last 24 Hours 10/05/16 10/05/16 10/05/16 10/05/16 11:00 13:12 13:13 15:01 Temp 98.0 98.4 98.0 98.4 Pulse 78 80 85 Resp 16 16 B/P 141/70 141/70 132/62 Pulse Ox 98 98 92 O2 Delivery Nasal Cannula Nasal Cannula Nasal Cannula O2 Flow Rate 2.0 2.0 2.0 10/05/16 10/05/16 10/05/16 10/05/16 17:28 18:28 19:00 20:00 Temp 97.9 97.9 Pulse 70 Resp 18 B/P 153/68 Pulse Ox 92 92 100 O2 Delivery Nasal Cannula Nasal Cannula Nasal Cannula O2 Flow Rate 2.0 2.0 2.0 1/1/10/05/16 10/05/16 10/06/16 21:12 22:12 23:10 03:34 Temp 97.7 97.8 97.7 97.8 Pulse 71 70 Resp 18 18 18 18 B/P 156/71 135/59 Pulse Ox 94 95 O2 Delivery Nasal Cannula Nasal Cannula Nasal Cannula O2 Flow Rate 2.0 2.0 2.0 2.0 10/06/16 10/06/16 10/06/16 10/06/16 07:00 08:40 08:41 10:00 Temp 97.9 97.9 Pulse 78 78 Resp 20 B/P 143/49 143/49 Pulse Ox 97 O2 Delivery Nasal Cannula Nasal Cannula Nasal Cannula O2 Flow Rate 2.0 Intake and Output 10/05/16 10/05/16 10/06/16 15:00 23:00 07:00 Intake Total 0 ml 1600 ml Balance 0 ml 1600 ml RICHARD [place] MD Oct 06, 2016 10:20
[2016-10-06] MEDS ORDERED: PREDNISONE 20 MG TABLET PO ONE (10:30)
[2016-10-06 11:25] VITALS: BP 141/52
[2016-10-06] MEDS: VANCOMYCIN 1.5 GM in IV NORMAL SALINE 500ML BAG 500 ML IV SCH (11:47)
[2016-10-06 14:39] VITALS: BP 138/51
[2016-10-06] MEDS: VANCOMYCIN PER PHARMACY MC PRN (14:39)
--- NOTE | 2016-10-06 14:40 | RAD ---
Two-view study of the left hand and two-view study of the left wrist Indications: Pain and swelling. No known injury. Left hand: No acute fracture or dislocation or osteolytic process is seen. 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 Calcification of the triangular fibrocartilage complex is seen. This may be secondary to metabolic calcium disease such as renal insufficiency or could be secondary to see calcium pyrophosphate deposition disease. No acute fracture or dislocation or osteolytic process is evident. IMPRESSION: No acute fracture.
[2016-10-06 19:00] VITALS: BP 191/83
[2016-10-06] MEDS: SIMVASTATIN 20 MG TABLET PO SCH (20:41)
[2016-10-06] MEDS: TAMSULOSIN 0.4 MG CAP.ER.24H. PO SCH (20:42)
--- NOTE | 2016-10-06 20:56 | PDOC ---
Provider Note Provider Note SURG pt seen earlier today agree with advancing diet no new surgical recs FRAN GARCIA MD Oct 06, 2016 20:56
[2016-10-06] MEDS: ONDANSETRON PF 4 MG/2 ML VIAL. IV PRN (22:50)
[2016-10-06 23:31] VITALS: BP 158/87
[2016-10-07 03:20] VITALS: BP 153/72
[2016-10-07] MEDS: PIPERACILLIN/TAZOBACTAM 3.375 GM in IV NORMAL SALINE 50ML 50 ML IV SCH ×4 (05:59→23:40)
[2016-10-07] MEDS: LEVOTHYROXINE 100 MCG TABLET PO SCH (06:28)
[2016-10-07 07:00] VITALS: BP 153/52
[2016-10-07] MEDS: PRAMIPEXOLE 0.25 MG TABLET. PO SCH ×3 (08:22→20:26)
[2016-10-07] MEDS: GABAPENTIN 300 MG CAPSULE. PO SCH ×4 (08:22→20:27)
[2016-10-07] MEDS: PREDNISONE 10 MG TABLET PO SCH (08:22)
[2016-10-07] MEDS: CARBIDOPA/LEVODOPA CR 50/200MG TABLET.SA PO SCH ×3 (08:23→20:27)
[2016-10-07] MEDS: ASPIRIN 81 MG TAB.CHEW PO SCH (08:23)
[2016-10-07] MEDS: ENOXAPARIN 40 MG/0.4 ML DISP.SYRIN. SQ SCH (08:23)
[2016-10-07] MEDS: METOPROLOL SUCC 24HR ER 25 MG TAB.ER.24H. PO SCH (08:23)
[2016-10-07] MEDS: LEVETIRACETAM 250 MG TABLET. PO SCH ×2 (08:23→20:27)
[2016-10-07] MEDS: TRAMADOL 50 MG TABLET. PO SCH ×4 (08:24→20:28)
[2016-10-07] MEDS: ONDANSETRON PF 4 MG/2 ML VIAL. IV PRN (08:28)
[2016-10-07] MEDS: AA 3%/ELECTROLYTE-TPN SOLN/GLY 1,000 ML IV SCH (08:28)
--- NOTE | 2016-10-07 09:10 | PDOC ---
PROGRESS NOTES Subjective Subjective complains of nausea and vomiting earlier and now heartburn,. x ray of wrist and hand negative for fracture. has edema legs and LUE. lab reviewed. Objective Objective Vital Signs Date Time Temp Pulse Resp B/P Pulse Ox O2 Delivery O2 Flow Rate FiO2 10/07/16 08:24 Room Air 10/07/16 08:23 73 153/52 10/07/16 07:00 97.9 16 96 2.0 97.9 Intake and Output 10/07/16 07:00 Intake Total 1590 ml Output Total 325 ml Balance 1265 ml Intake Oral 560 ml IV Total 480 ml Other 550 ml Output Urine Total 325 ml # Voids 3 Physical Exam Abdomen: Soft Heart: Normal S2 Extremities: Other (1 plus edema feet and 2 plus edema LUE) General: Alert HEENT: Atraumatic Lungs: Clear to auscultation, Other (decreased breath sounds) Neuro: Normal speech Psych/Mental Status: Mood NL Skin: No rashes Assessment Assessment Problems Medical Problems: Small-bowel obstruction resolved 2. Seizure disorder. 3. Parkinson's disease. 4. Hypothyroidism. 5. Peripheral neuropathy. 6. Hypertension. BP high 7. Chronic kidney disease stage III. fever resolved on antibiotics. suspect gout left hand and wrist nausea and vomiting and gerd edema LUE and bilateral LE (1) SBO (small bowel obstruction) Status: Acute Plan Plan of Care continue iv vancomycin and zosyn start oral lasix place IV in RUE venous doppler LUE acute abdominal series continue prednisone iv zofran prn d/c iv fluids continue full liquids protonix and prn antacids Comment Review of Relevant I have reviewed the following items [place] (where applicable) has been applied. Labs Laboratory Tests Test 10/06/16 06:30 10/06/16 11:30 White Blood Count 7.8x10^3/uL (4.0-11.0) Red Blood Count 3.01x10^6/uL (4.30-5.70) Hemoglobin 9.7g/dL (13.0-17.5) Hematocrit 30.6% (39.0-53.0) Mean Corpuscular Volume 102fL (79-100) Mean Corpuscular Hemoglobin 32pg (25-35) Mean Corpuscular Hemoglobin Concent 32g/dL (31-37) Red Cell Distribution Width 15.6% (11.5-14.5) Platelet Count 204x10^3/uL (140-400) Neutrophils (%) (Auto) 70% (31-73) Lymphocytes (%) (Auto) 17% (24-48) Monocytes (%) (Auto) 9% (0-9) Eosinophils (%) (Auto) 4% (0-3) Basophils (%) (Auto) 0% (0-3) Neutrophils # (Auto) 5.5x10^3uL (1.8-7.7) Lymphocytes # (Auto) 1.4x10^3/uL (1.0-4.8) Monocytes # (Auto) 0.7x10^3/uL (0.0-1.1) Eosinophils # (Auto) 0.3x10^3/uL (0.0-0.7) Basophils # (Auto) 0.0x10^3/uL (0.0-0.2) Sodium Level 137mmol/L (136-145) Potassium Level 4.3mmol/L (3.5-5.1) Chloride Level 103mmol/L (98-107) Carbon Dioxide Level 27mmol/L (21-32) Anion Gap 7 (6-14) Blood Urea Nitrogen 31mg/dL (8-26) Creatinine 1.5mg/dL (0.7-1.3) Estimated GFR (Cockcroft-Gault) 44.5 Glucose Level 108mg/dL (70-99) Uric Acid 3.4mg/dL (3.5-7.2) Calcium Level 8.6mg/dL (8.5-10.1) Vancomycin Level Trough 13.9mcg/mL (10.0-20.0) Vancomycin Last Dose Date 10/05/16 Vancomycin Last Dose Time 1200 Laboratory Tests Test 10/06/16 11:30 Vancomycin Level Trough 13.9mcg/mL (10.0-20.0) Vancomycin Last Dose Date 10/05/16 Vancomycin Last Dose Time 1200 Microbiology 10/04/16 Blood Culture - Preliminary, Resulted NO GROWTH AFTER 2 DAYS 10/04/16 Urine Culture - Preliminary, Resulted 10/04/16 Urine Culture Result 1 (MANDEEP) - Preliminary, Resulted Medications Current Medications Fentanyl Citrate 50 mcg 50 mcg PRN Q15MIN PRN IV PAIN GREATER THAN 3/10 Last administered on 09/30/16at 19:35; Start 09/30/16 at 17:30; Stop 10/01/16 at 04 :24; Status DC Lactated Ringer's (Iv Lactated Ringers) 1,000 ml @ 100 mls/hr Q10H IV Last administered on 09/30/16at 19:35; Start 09/30/16 at 17:28; Stop 10/01/16 at 03 :27; Status DC Ondansetron HCl (Zofran) 4 mg 1X ONCE IV Last administered on 09/30/16at 17:44 ; Start 09/30/16 at 17:30; Stop 09/30/16 at 17:32; Status DC Fentanyl Citrate (Fentanyl 2ml Vial) 50 mcg 1X ONCE IV ; Start 09/30/16 at 19: 15; Stop 10/01/16 at 04:24; Status DC Ondansetron HCl (Zofran) 4 mg PRN Q8HRS PRN IV NAUSEA/VOMITING Last administered on 09/30/16at 22:07; Start 09/30/16 at 19:15; Stop 10/01/16 at 19 :14; Status DC Fentanyl Citrate 50 mcg 50 mcg PRN Q2HR PRN IV PAIN Last administered on at 16:54; Start 09/30/16 at 19:15; Stop 10/01/16 at 19:14; Status DC Sodium Chloride 1,000 ml @ 100 mls/hr Q10H IV ; Start 09/30/16 at 19:30; Stop 10/01/16 at 04:24; Status DC Potassium Chloride/Dextrose/ Sod Cl (KCl 20 Meq In D5W-1/2 NS) 1,000 ml @ 125 mls/hr Q8H IV Last administered on 10/04/16at 06:02; Start 09/30/16 at 20:00; Stop 10/04/16 at 10:21; Status DC Enoxaparin Sodium 40 mg 40 mg Q24H SQ Last administered on 10/07/16 08:23; Start 10/01/16 at 09:00 Levetiracetam/ Sodium Chloride (Keppra/Iv Sodium Chloride 0.9% 100ml) 105 ml @ 400 mls/hr Q12HR IV Last administered on 10/05/16 09:30; Start 09/30/16 at 21: 00; Stop 10/05/16 at 10:24; Status DC Morphine Sulfate 2 mg PRN Q4HRS PRN IV SEVERE PAIN Last administered on 10:13; Start 09/30/16 at 19:30; Stop 10/05/16 at 10:24; Status DC Acetaminophen (Tylenol) 650 mg PRN Q6HRS PRN [place] MILD PAIN / TEMP; Start at 19:30; Stop 10/05/16 at 10:24; Status DC Ondansetron HCl (Zofran) 4 mg PRN Q6HRS PRN IV NAUSEA/VOMITING Last administered on 10/07/16 08:28; Start 09/30/16 at 19:30 Benzocaine (Hurricaine One) 1 spray STK-MED ONCE .ROUTE ; Start 09/30/16 at 19: 51; Stop 09/30/16 at 19:52; Status DC Morphine Sulfate 4 mg PRN Q4HRS PRN IV PAIN Last administered on 10/05/16 08:08 ; Start 10/01/16 at 20:00; Stop 10/05/16 at 10:24; Status DC Clonidine HCl 1 patch 1 patch WEEKLY TD Last administered on 10/03/16at 12:30; Start 10/03/16 at 10:00; Stop 10/05/16 at 10:24; Status DC Piperacillin Sod/ Tazobactam Sod/ Sodium Chloride (Zosyn/Iv Sodium Chloride 0.9 % 50ml) 50 ml @ 100 mls/hr Q6HRS IV Last administered on 10/07/16 05:59; Start 10/04/16 at 11:00 Vancomycin HCl 1 each 1 each PRN DAILY PRN MC SEE COMMENTS Last administered on 10/06/16 14:39; Start 10/04/16 at 10:15 Vancomycin HCl/ Sodium Chloride (Iv Sodium Chloride 0.9% 250ml) 250 ml @ 250 mls/hr Q24H IV ; Start 10/04/16 at 10:15; Status UNV Labetalol HCl (Normodyne) 20 mg PRN Q6HRS PRN IVP HYPERTENSION, SEE COMMENTS; Start 10/04/16 at 10:15; Stop 10/05/16 at 10:24; Status DC Hydralazine HCl 10 mg 10 mg PRN Q6HRS PRN IVP ELEVATED BP, SEE COMMENTS Last administered on 10/06/16 19:17; Start 10/04/16 at 10:15 Amino Acids/ Glycerin/ Electrolytes 1,000 ml @ 40 mls/hr Q24H IV Last administered on 10/06/16 09:59; Start 10/04/16 at 10:15 Vancomycin HCl 2 gm/Sodium Chloride 500 ml @ 250 mls/hr 1X ONCE IV Last administered on 10/04/16at 11:26; Start 10/04/16 at 10:45; Stop 10/04/16 at 12 :44; Status DC Vancomycin HCl/ Sodium Chloride (Iv Sodium Chloride 0.9% 500ml Bag) 500 ml @ 250 mls/hr Q24H IV Last administered on 10/06/16 11:47; Start 10/05/16 at 12:00 Vancomycin HCl 1 each 1X ONCE MC Last administered on 10/06/16 11:30; Start at 11:30; Stop 10/06/16 at 11:31; Status DC Aspirin (Children'S Aspirin) 81 mg DAILYWBKFT PO Last administered on 10/07/16 08:23; Start 10/05/16 at 11:00 Gabapentin (Neurontin) 600 mg QID PO Last administered on 10/07/16 08:22; Start 10/05/16 at 13:00 Levetiracetam (Keppra) 250 mg BID PO Last administered on 10/07/16 08:23; Start 10/05/16 at 11:00 Levothyroxine Sodium (Synthroid) 100 mcg DAILY07 PO Last administered on 06:28; Start 10/05/16 at 10:30 Metoprolol Succinate (Toprol Xl) 25 mg DAILY PO Last administered on 10/07/16 08:23; Start 10/05/16 at 11:00 Pramipexole Dihydrochloride (miraPEX) 0.5 mg [id number] PO Last administered on 10/07 08:22; Start 10/05/16 at 11:00 Simvastatin (Zocor) 20 mg HS PO Last administered on 10/06/16 20:41; Start 10/05 at 21:00 Carbidopa/Levodopa (Sinemet Cr) 1 tab.sa TID PO Last administered on 10/07/16 08:23; Start 10/05/16 at 11:00 Tamsulosin HCl (Flomax) 0.4 mg QHS PO Last administered on 10/06/16 20:42; Start 10/05/16 at 21:00 Tramadol HCl (Ultram) 50 mg QID PO Last administered on 10/07/16 08:24; Start 10/05/16 at 13:00 Acetaminophen (Tylenol) 650 mg PRN Q4HRS PRN PO MILD PAIN / TEMP Last administered on 10/06/16 19:16; Start 10/05/16 at 10:15 Prednisone (Prednisone) 20 mg 1X ONCE PO Last administered on 10/06/16 11:01; Start 10/06/16 at 10:30; Stop 10/06/16 at 10:31; Status DC Prednisone (Prednisone) 10 mg DAILY08 PO Last administered on 10/07/16 08:22; Start 10/07/16 at 08:00 Al Hydroxide/Mg Hydroxide (Mylanta Plus Xs) 30 ml PRN Q4HRS PRN PO HEARTBURN / GAS; Start 10/07/16 at 08:45 Active Scripts Active Hydrocodone-Apap 5-325 (Hydrocodone Bit/Acetaminophen) 1 Each Tablet 1 Tab PO PRN Q6HRS PRN Metoprolol Succinate ( Xl ) (Metoprolol Succinate) 25 Mg Tab.er.24h 25 Mg PO DAILY Reported Flomax (Tamsulosin Hcl) 0.4 Mg Cap.er.24h 1 Cap PO QHS Tramadol Hcl 100 Mg Tab.er.24h 100 Mg PO QID Levetiracetam 250 Mg Tablet 250 Mg PO BID Dulcolax (Bisacodyl) 10 Mg Supp.rect 10 Mg RC PRN DAILY PRN Maalox Advanced Suspension (Mag Hydrox/Al Hydrox/Simeth) 770 Ml Oral.susp 30 Ml PO Q2HR PRN Milk Of Magnesia (Magnesium Hydroxide) 400 Mg/5 Ml Oral.susp 30 Ml PO DAILY PRN Robitussin Cough-Chest Dm Liq (Guaifenesin/Dextromethorphan) 118 Ml Liquid 10 Ml PO Q4HRS PRN Trazodone Hcl 50 Mg Tablet 1 Tab PO QHS Tylenol (Acetaminophen) 325 Mg Tablet 650 Mg PO Q6HRS PRN Pramipexole Dihydrochloride (Pramipexole Di-Hcl) 0.5 Mg Tablet 0.5 Mg PO TID Simvastatin 20 Mg Tablet 1 Tab PO QHS Levothyroxine Sodium 100 Mcg Tablet 1 Tab PO DAILY Gabapentin 800 Mg Tablet 800 Mg PO QID Sinemet 25-100 Mg Tablet (Carbidopa/Levodopa) 1 Each Tablet 2 Tab PO TID Aspirin 81 Mg Tab.chew 1 Tab PO DAILY Vitals/I & O Vital Sign - Last 24 Hours 10/06/16 10/06/16 10/06/16 10/06/16 11:25 13:15 14:39 17:11 Temp 97.9 97.9 97.9 97.9 Pulse 68 73 Resp 20 20 B/P 141/52 138/51 Pulse Ox 99 96 O2 Delivery Nasal Cannula Nasal Cannula Nasal Cannula Room Air O2 Flow Rate 2.0 2.0 10/06/16 10/06/16 10/06/16 10/06/16 19:00 19:17 19:20 20:42 Temp 97.9 97.9 Pulse 74 97 Resp 20 18 B/P 191/83 191/83 Pulse Ox 97 O2 Delivery Nasal Cannula Nasal Cannula Nasal Cannula O2 Flow Rate 2.0 2.0 2.0 10/06/16 10/06/16 10/07/16 10/07/16 21:42 23:31 03:20 07:00 Temp 98.2 98.1 97.9 98.2 98.1 97.9 Pulse 92 78 73 Resp 18 20 20 16 B/P 158/87 153/72 153/52 Pulse Ox 93 95 96 O2 Delivery Nasal Cannula Nasal Cannula Nasal Cannula Nasal Cannula O2 Flow Rate 2.0 2.0 2.0 2.0 10/07/16 10/07/16 08:23 08:24 Pulse 73 B/P 153/52 O2 Delivery Room Air Intake and Output 10/06/16 10/06/16 10/07/16 15:00 23:00 07:00 Intake Total 1590 ml Output Total 325 ml Balance -325 ml 1590 ml RICHARD [place] MD Oct 07, 2016 09:10
[2016-10-07] MEDS: MAG HYDROX/AL HYDROX/SIMETH 30 ML ORAL.SUSP PO PRN ×2 (09:20→17:42)
[2016-10-07] MEDS: FUROSEMIDE 40 MG TABLET PO SCH (09:20)
[2016-10-07] MEDS: PANTOPRAZOLE 40 MG TABLET. PO SCH (09:20)
--- NOTE | 2016-10-07 10:35 | RAD ---
Left upper extremity venous ultrasound, 10/07/2016: History: Left arm swelling Duplex evaluation of the major veins in the left upper extremity was performed including grayscale, color-flow and spectral Doppler analysis. The left internal jugular, subclavian, axillary, brachial, cephalic and basilic veins are all patent. Patent radial and ulnar veins are evident in the left forearm. IMPRESSION: No sonographic evidence of deep vein thrombosis in the left upper extremity.
[2016-10-07 11:00] VITALS: BP 156/66
[2016-10-07] MEDS: VANCOMYCIN PER PHARMACY MC PRN (11:11)
--- NOTE | 2016-10-07 11:28 | PDOC ---
Infectious Disease Note Subjective Subjective Better. Some ? vomit. + Flatus but no BM Has improved pain in left hand ROS ROS GEN: Denies fevers, chills, sweats HEENT: Denies blurred vision, sore throat CV: Denies chest pain RESP: Denies shortness of air, cough GI: Denies n/v/d NEURO: Denies confusion, dizziness MSK: Denies weakness, joint pain/swelling Vital Sign Vital Signs Vital Signs Date Time Temp Pulse Resp B/P Pulse Ox O2 Delivery O2 Flow Rate FiO2 10/07/16 09:25 Nasal Cannula 10/07/16 08:23 73 153/52 10/07/16 08:00 2.0 10/07/16 07:00 97.9 16 96 97.9 Physical Exam PHYSICAL EXAM GENERAL: NAD, Alert, in chair HEENT: PERRL, OC/OP - clear NECK: Supple, no JVD, no LN LUNGS: Clear HEART: S1S2, no gallop, no murmur ABD: Soft, NT, no organomegaly, no rebound, Distended EXT: Gen 1 plus edema except LUE 2 plus, no cyanosis 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 Seizure disorder Parkinson's disease h/o UTI: Citrobacter & Klebsiella h/o E. coli bacteremia Plan Plan of Care D/c vanc Cont Zosyn Elevation F/u UC and BC f/u am labs and cultures SAMI MARTINEZ MD Oct 07, 2016 11:28
--- NOTE | 2016-10-07 13:24 | PDOC ---
SURGICAL PROGRESS NOTE Subjective back pain + flatus tolerating full liquids for lunch, denies n/v this afternoon--pcp note relates did have episode of n/v in AM Vital Signs Vital Signs Date Time Temp Pulse Resp B/P Pulse Ox O2 Delivery O2 Flow Rate FiO2 10/07/16 13:08 Room Air 10/07/16 11:00 97.7 70 18 156/66 98 2.0 97.7 I&O Intake and Output 10/07/16 07:00 Intake Total 1590 ml Output Total 325 ml Balance 1265 ml Intake Oral 560 ml IV Total 480 ml Other 550 ml Output Urine Total 325 ml # Voids 3 General: Alert, Oriented X3, Cooperative, No acute distress Abdomen: Soft, No tenderness Labs Laboratory Tests Test 10/06/16 06:30 10/06/16 11:30 White Blood Count 7.8x10^3/uL (4.0-11.0) Red Blood Count 3.01x10^6/uL (4.30-5.70) Hemoglobin 9.7g/dL (13.0-17.5) Hematocrit 30.6% (39.0-53.0) Mean Corpuscular Volume 102fL (79-100) Mean Corpuscular Hemoglobin 32pg (25-35) Mean Corpuscular Hemoglobin Concent 32g/dL (31-37) Red Cell Distribution Width 15.6% (11.5-14.5) Platelet Count 204x10^3/uL (140-400) Neutrophils (%) (Auto) 70% (31-73) Lymphocytes (%) (Auto) 17% (24-48) Monocytes (%) (Auto) 9% (0-9) Eosinophils (%) (Auto) 4% (0-3) Basophils (%) (Auto) 0% (0-3) Neutrophils # (Auto) 5.5x10^3uL (1.8-7.7) Lymphocytes # (Auto) 1.4x10^3/uL (1.0-4.8) Monocytes # (Auto) 0.7x10^3/uL (0.0-1.1) Eosinophils # (Auto) 0.3x10^3/uL (0.0-0.7) Basophils # (Auto) 0.0x10^3/uL (0.0-0.2) Sodium Level 137mmol/L (136-145) Potassium Level 4.3mmol/L (3.5-5.1) Chloride Level 103mmol/L (98-107) Carbon Dioxide Level 27mmol/L (21-32) Anion Gap 7 (6-14) Blood Urea Nitrogen 31mg/dL (8-26) Creatinine 1.5mg/dL (0.7-1.3) Estimated GFR (Cockcroft-Gault) 44.5 Glucose Level 108mg/dL (70-99) Uric Acid 3.4mg/dL (3.5-7.2) Calcium Level 8.6mg/dL (8.5-10.1) Vancomycin Level Trough 13.9mcg/mL (10.0-20.0) Vancomycin Last Dose Date 10/05/16 Vancomycin Last Dose Time 1200 Problem List Problems Medical Problems: (1) SBO (small bowel obstruction) Status: Acute Assessment/Plan sbo vs ileus tolerating lunch, no n/v this afternoon if continues to tolerate can advance Available as needed Problems: [employer] Oct 07, 2016 13:24
--- NOTE | 2016-10-07 17:06 | RAD ---
Indication abdominal pain vomiting. A single view of the chest was obtained as well as flat and upright films of the abdomen. Comparison is made to a similar series of films 3 days earlier. The heart size is unchanged. There is no gross congestive heart failure. There is increasing volume loss in the left lower lobe relative to the previous exam compatible with pleural fluid and atelectasis. Underlying pneumonia is not excluded. Nasogastric tube is no longer seen presumably has been removed. A neuro stimulating device is noted as well as an IVC filter. Postoperative changes in the lumbar spine are noted. Postoperative changes are noted in the pelvis as well as AP implant. The abdominal gas pattern has a nonobstructive appearance. There is no free air. No organomegaly or definite abnormal calculi are seen. IMPRESSION: No acute finding seen in the abdomen on plain films. Increasing volume loss at the left lung base may represent pleural fluid and atelectasis. Underlying pneumonia is not excluded
[2016-10-07 19:00] VITALS: BP 121/55
[2016-10-07] MEDS: TAMSULOSIN 0.4 MG CAP.ER.24H. PO SCH (20:27)
[2016-10-07] MEDS: SIMVASTATIN 20 MG TABLET PO SCH (20:27)
[2016-10-07 23:00] VITALS: BP 104/40
[2016-10-08 03:00] VITALS: BP 106/37
[2016-10-08] MEDS: PANTOPRAZOLE 40 MG TABLET. PO SCH (05:36)
[2016-10-08] MEDS: LEVOTHYROXINE 100 MCG TABLET PO SCH (05:36)
[2016-10-08] MEDS: PIPERACILLIN/TAZOBACTAM 3.375 GM in IV NORMAL SALINE 50ML 50 ML IV SCH ×4 (05:36→23:53)
[2016-10-08 06:34] LABS: BASO % 1 % (0-3); EOS % 1 % (0-3); HEMATOCRIT 27.1 % (39.0-53.0); HEMOGLOBIN 8.9 g/dL (13.0-17.5); LYMPH # 1.3 x10^3/uL (1.0-4.8); LYMPH % 23 % (24-48); MEAN CORPUSCULAR HEMOGLOBIN 33 pg (25-35); MEAN CORPUSCULAR HGB CONC 33 g/dL (31-37); MEAN CORPUSCULAR VOLUME 101 fL (79-100); MONO % 9 % (0-9); NEUT % 66 % (31-73); PLATELET COUNT 231 x10^3/uL (140-400); RED BLOOD COUNT 2.69 x10^6/uL (4.30-5.70); RED CELL DISTRIBUTION WIDTH 15.4 % (11.5-14.5); WHITE BLOOD COUNT 5.6 x10^3/uL (4.0-11.0)
[2016-10-08 06:58] LABS: CALCIUM 8.6 mg/dL (8.5-10.1); CREATININE 1.6 mg/dL (0.7-1.3); GFR 41.3; POTASSIUM 4.2 mmol/L (3.5-5.1)
[2016-10-08 07:00] VITALS: BP 120/55
[2016-10-08] MEDS: TRAMADOL 50 MG TABLET. PO SCH ×4 (08:41→22:21)
[2016-10-08] MEDS: CARBIDOPA/LEVODOPA CR 50/200MG TABLET.SA PO SCH ×3 (08:41→22:20)
[2016-10-08] MEDS: ASPIRIN 81 MG TAB.CHEW PO SCH (08:42)
[2016-10-08] MEDS: METOPROLOL SUCC 24HR ER 25 MG TAB.ER.24H. PO SCH (08:42)
[2016-10-08] MEDS: PREDNISONE 10 MG TABLET PO SCH (08:42)
[2016-10-08] MEDS: FUROSEMIDE 40 MG TABLET PO SCH (08:42)
[2016-10-08] MEDS: PRAMIPEXOLE 0.25 MG TABLET. PO SCH ×3 (08:42→22:55)
[2016-10-08] MEDS: LEVETIRACETAM 250 MG TABLET. PO SCH ×2 (08:42→22:20)
[2016-10-08] MEDS: ENOXAPARIN 40 MG/0.4 ML DISP.SYRIN. SQ SCH (08:43)
[2016-10-08] MEDS ORDERED: IV 1/2 NORMAL SALINE 1,000 ML IV PRN (09:00)
[2016-10-08] MEDS: GABAPENTIN 300 MG CAPSULE. PO SCH ×4 (09:00→22:20)
--- NOTE | 2016-10-08 09:00 | PDOC ---
PROGRESS NOTES Subjective Subjective feels well. denies BM or abdominal pain or vomiting. urine culture grew klebsiella. blood cultures neg so far. venous doppler LUE neg for dvt. lab reviewed. bun 46 and creatinine 1.6. will advance diet to soft solids and d/c oral lasix and order iv fluids. will order dulcolax suppository today. acute abdominal series negative. Objective Objective Vital Signs Date Time Temp Pulse Resp B/P Pulse Ox O2 Delivery O2 Flow Rate FiO2 10/08/16 08:42 71 120/55 10/08/16 08:41 Nasal Cannula 1.0 10/08/16 07:00 96.0 16 92 96.0 Intake and Output 10/08/16 07:00 Intake Total 555 ml Output Total 150 ml Balance 405 ml Intake Oral 555 ml Output Urine Total 150 ml # Voids 2 Physical Exam Abdomen: Normal bowel sounds, Soft, No tenderness Heart: Regular rate, Normal S1, Normal S2 Extremities: No edema General: Alert HEENT: Atraumatic Lungs: Clear to auscultation Neuro: Normal speech Psych/Mental Status: Mood NL Skin: No rashes Assessment Assessment Problems Medical Problems: Small-bowel obstruction resolved 2. Seizure disorder. 3. Parkinson's disease. 4. Hypothyroidism. 5. Peripheral neuropathy. 6. Hypertension. BP high 7. Chronic kidney disease stage III. fever resolved on antibiotics. suspect gout left hand and wrist peripheral edema resolved acute kidney injury (1) SBO (small bowel obstruction) Status: Acute Plan Plan of Care d/c lasix iv fluids advance to soft solids dulculax suppository today lab tomorrow Comment Review of Relevant I have reviewed the following items [place] (where applicable) has been applied. Labs Laboratory Tests Test 10/06/16 11:30 10/08/16 06:05 Vancomycin Level Trough 13.9mcg/mL (10.0-20.0) Vancomycin Last Dose Date 10/05/16 Vancomycin Last Dose Time 1200 White Blood Count 5.6x10^3/uL (4.0-11.0) Red Blood Count 2.69x10^6/uL (4.30-5.70) Hemoglobin 8.9g/dL (13.0-17.5) Hematocrit 27.1% (39.0-53.0) Mean Corpuscular Volume 101fL (79-100) Mean Corpuscular Hemoglobin 33pg (25-35) Mean Corpuscular Hemoglobin Concent 33g/dL (31-37) Red Cell Distribution Width 15.4% (11.5-14.5) Platelet Count 231x10^3/uL (140-400) Neutrophils (%) (Auto) 66% (31-73) Lymphocytes (%) (Auto) 23% (24-48) Monocytes (%) (Auto) 9% (0-9) Eosinophils (%) (Auto) 1% (0-3) Basophils (%) (Auto) 1% (0-3) Neutrophils # (Auto) 3.7x10^3uL (1.8-7.7) Lymphocytes # (Auto) 1.3x10^3/uL (1.0-4.8) Monocytes # (Auto) 0.5x10^3/uL (0.0-1.1) Eosinophils # (Auto) 0.1x10^3/uL (0.0-0.7) Basophils # (Auto) 0.0x10^3/uL (0.0-0.2) Sodium Level 142mmol/L (136-145) Potassium Level 4.2mmol/L (3.5-5.1) Chloride Level 107mmol/L (98-107) Carbon Dioxide Level 30mmol/L (21-32) Anion Gap 5 (6-14) Blood Urea Nitrogen 41mg/dL (8-26) Creatinine 1.6mg/dL (0.7-1.3) Estimated GFR (Cockcroft-Gault) 41.3 Glucose Level 123mg/dL (70-99) Calcium Level 8.6mg/dL (8.5-10.1) Laboratory Tests Test 10/08/16 06:05 White Blood Count 5.6x10^3/uL (4.0-11.0) Red Blood Count 2.69x10^6/uL (4.30-5.70) Hemoglobin 8.9g/dL (13.0-17.5) Hematocrit 27.1% (39.0-53.0) Mean Corpuscular Volume 101fL (79-100) Mean Corpuscular Hemoglobin 33pg (25-35) Mean Corpuscular Hemoglobin Concent 33g/dL (31-37) Red Cell Distribution Width 15.4% (11.5-14.5) Platelet Count 231x10^3/uL (140-400) Neutrophils (%) (Auto) 66% (31-73) Lymphocytes (%) (Auto) 23% (24-48) Monocytes (%) (Auto) 9% (0-9) Eosinophils (%) (Auto) 1% (0-3) Basophils (%) (Auto) 1% (0-3) Neutrophils # (Auto) 3.7x10^3uL (1.8-7.7) Lymphocytes # (Auto) 1.3x10^3/uL (1.0-4.8) Monocytes # (Auto) 0.5x10^3/uL (0.0-1.1) Eosinophils # (Auto) 0.1x10^3/uL (0.0-0.7) Basophils # (Auto) 0.0x10^3/uL (0.0-0.2) Sodium Level 142mmol/L (136-145) Potassium Level 4.2mmol/L (3.5-5.1) Chloride Level 107mmol/L (98-107) Carbon Dioxide Level 30mmol/L (21-32) Anion Gap 5 (6-14) Blood Urea Nitrogen 41mg/dL (8-26) Creatinine 1.6mg/dL (0.7-1.3) Estimated GFR (Cockcroft-Gault) 41.3 Glucose Level 123mg/dL (70-99) Calcium Level 8.6mg/dL (8.5-10.1) Microbiology 10/04/16 Blood Culture - Preliminary, Resulted NO GROWTH AFTER 3 DAYS 10/04/16 Urine Culture - Final, Complete 10/04/16 Urine Culture Result 1 (MANDEEP) - Final, Complete 10/04/16 Antimicrobic Susceptibility - Final, Complete Medications Current Medications Fentanyl Citrate 50 mcg 50 mcg PRN Q15MIN PRN IV PAIN GREATER THAN 3/10 Last administered on 09/30/16at 19:35; Start 09/30/16 at 17:30; Stop 10/01/16 at 04 :24; Status DC Lactated Ringer's (Iv Lactated Ringers) 1,000 ml @ 100 mls/hr Q10H IV Last administered on 09/30/16at 19:35; Start 09/30/16 at 17:28; Stop 10/01/16 at 03 :27; Status DC Ondansetron HCl (Zofran) 4 mg 1X ONCE IV Last administered on 09/30/16at 17:44 ; Start 09/30/16 at 17:30; Stop 09/30/16 at 17:32; Status DC Fentanyl Citrate (Fentanyl 2ml Vial) 50 mcg 1X ONCE IV ; Start 09/30/16 at 19: 15; Stop 10/01/16 at 04:24; Status DC Ondansetron HCl (Zofran) 4 mg PRN Q8HRS PRN IV NAUSEA/VOMITING Last administered on 09/30/16at 22:07; Start 09/30/16 at 19:15; Stop 10/01/16 at 19 :14; Status DC Fentanyl Citrate 50 mcg 50 mcg PRN Q2HR PRN IV PAIN Last administered on at 16:54; Start 09/30/16 at 19:15; Stop 10/01/16 at 19:14; Status DC Sodium Chloride 1,000 ml @ 100 mls/hr Q10H IV ; Start 09/30/16 at 19:30; Stop 10/01/16 at 04:24; Status DC Potassium Chloride/Dextrose/ Sod Cl (KCl 20 Meq In D5W-1/2 NS) 1,000 ml @ 125 mls/hr Q8H IV Last administered on 10/04/16at 06:02; Start 09/30/16 at 20:00; Stop 10/04/16 at 10:21; Status DC Enoxaparin Sodium 40 mg 40 mg Q24H SQ Last administered on 10/08/16 08:43; Start 10/01/16 at 09:00 Levetiracetam/ Sodium Chloride (Keppra/Iv Sodium Chloride 0.9% 100ml) 105 ml @ 400 mls/hr Q12HR IV Last administered on 10/05/16 09:30; Start 09/30/16 at 21: 00; Stop 10/05/16 at 10:24; Status DC Morphine Sulfate 2 mg PRN Q4HRS PRN IV SEVERE PAIN Last administered on 10:13; Start 09/30/16 at 19:30; Stop 10/05/16 at 10:24; Status DC Acetaminophen (Tylenol) 650 mg PRN Q6HRS PRN DE MILD PAIN / TEMP; Start at 19:30; Stop 10/05/16 at 10:24; Status DC Ondansetron HCl (Zofran) 4 mg PRN Q6HRS PRN IV NAUSEA/VOMITING Last administered on 10/07/16 08:28; Start 09/30/16 at 19:30 Benzocaine (Hurricaine One) 1 spray STK-MED ONCE .ROUTE ; Start 09/30/16 at 19: 51; Stop 09/30/16 at 19:52; Status DC Morphine Sulfate 4 mg PRN Q4HRS PRN IV PAIN Last administered on 10/05/16 08:08 ; Start 10/01/16 at 20:00; Stop 10/05/16 at 10:24; Status DC Clonidine HCl 1 patch 1 patch WEEKLY TD Last administered on 10/03/16at 12:30; Start 10/03/16 at 10:00; Stop 10/05/16 at 10:24; Status DC Piperacillin Sod/ Tazobactam Sod/ Sodium Chloride (Zosyn/Iv Sodium Chloride 0.9 % 50ml) 50 ml @ 100 mls/hr Q6HRS IV Last administered on 10/08/16 05:36; Start 10/04/16 at 11:00 Vancomycin HCl 1 each 1 each PRN DAILY PRN MC SEE COMMENTS Last administered on 10/07/16 11:11; Start 10/04/16 at 10:15; Stop 10/07/16 at 11:28; Status DC Vancomycin HCl/ Sodium Chloride (Iv Sodium Chloride 0.9% 250ml) 250 ml @ 250 mls/hr Q24H IV ; Start 10/04/16 at 10:15; Status UNV Labetalol HCl (Normodyne) 20 mg PRN Q6HRS PRN IVP HYPERTENSION, SEE COMMENTS; Start 10/04/16 at 10:15; Stop 10/05/16 at 10:24; Status DC Hydralazine HCl 10 mg 10 mg PRN Q6HRS PRN IVP ELEVATED BP, SEE COMMENTS Last administered on 10/06/16 19:17; Start 10/04/16 at 10:15 Amino Acids/ Glycerin/ Electrolytes 1,000 ml @ 40 mls/hr Q24H IV Last administered on 10/06/16 09:59; Start 10/04/16 at 10:15; Stop 10/07/16 at 09:06 ; Status DC Vancomycin HCl 2 gm/Sodium Chloride 500 ml @ 250 mls/hr 1X ONCE IV Last administered on 10/04/16at 11:26; Start 10/04/16 at 10:45; Stop 10/04/16 at 12 :44; Status DC Vancomycin HCl/ Sodium Chloride (Iv Sodium Chloride 0.9% 500ml Bag) 500 ml @ 250 mls/hr Q24H IV Last administered on 10/06/16 11:47; Start 10/05/16 at 12:00 ; Stop 10/07/16 at 11:28; Status DC Vancomycin HCl 1 each 1X ONCE MC Last administered on 10/06/16 11:30; Start at 11:30; Stop 10/06/16 at 11:31; Status DC Aspirin (Children'S Aspirin) 81 mg [id number] PO Last administered on 10/08/16 08:42; Start 10/05/16 at 11:00 Gabapentin (Neurontin) 600 mg QID PO Last administered on 10/07/16 20:27; Start 10/05/16 at 13:00 Levetiracetam (Keppra) 250 mg BID PO Last administered on 10/08/16 08:42; Start 10/05/16 at 11:00 Levothyroxine Sodium (Synthroid) 100 mcg DAILY07 PO Last administered on 05:36; Start 10/05/16 at 10:30 Metoprolol Succinate (Toprol Xl) 25 mg DAILY PO Last administered on 10/08/16 08:42; Start 10/05/16 at 11:00 Pramipexole Dihydrochloride (miraPEX) 0.5 mg [id number] PO Last administered on 10/08 08:42; Start 10/05/16 at 11:00 Simvastatin (Zocor) 20 mg HS PO Last administered on 10/07/16 20:27; Start 10/05 at 21:00 Carbidopa/Levodopa (Sinemet Cr) 1 tab.sa TID PO Last administered on 10/08/16 08:41; Start 10/05/16 at 11:00 Tamsulosin HCl (Flomax) 0.4 mg QHS PO Last administered on 10/07/16 20:27; Start 10/05/16 at 21:00 Tramadol HCl (Ultram) 50 mg QID PO Last administered on 10/08/16 08:41; Start 10/05/16 at 13:00 Acetaminophen (Tylenol) 650 mg PRN Q4HRS PRN PO MILD PAIN / TEMP Last administered on 10/06/16 19:16; Start 10/05/16 at 10:15 Prednisone (Prednisone) 20 mg 1X ONCE PO Last administered on 10/06/16 11:01; Start 10/06/16 at 10:30; Stop 10/06/16 at 10:31; Status DC Prednisone (Prednisone) 10 mg DAILY08 PO Last administered on 10/08/16 08:42; Start 10/07/16 at 08:00 Al Hydroxide/Mg Hydroxide (Mylanta Plus Xs) 30 ml PRN Q4HRS PRN PO HEARTBURN / GAS Last administered on 10/07/16 17:42; Start 10/07/16 at 08:45 Pantoprazole Sodium (Protonix) 40 mg DAILYAC PO Last administered on 10/08/16 05:36; Start 10/07/16 at 10:00 Furosemide (Lasix) 40 mg DAILY PO Last administered on 10/08/16 08:42; Start at 10:00 Active Scripts Active Hydrocodone-Apap 5-325 (Hydrocodone Bit/Acetaminophen) 1 Each Tablet 1 Tab PO PRN Q6HRS PRN Metoprolol Succinate ( Xl ) (Metoprolol Succinate) 25 Mg Tab.er.24h 25 Mg PO DAILY Reported Flomax (Tamsulosin Hcl) 0.4 Mg Cap.er.24h 1 Cap PO QHS Tramadol Hcl 100 Mg Tab.er.24h 100 Mg PO QID Levetiracetam 250 Mg Tablet 250 Mg PO BID Dulcolax (Bisacodyl) 10 Mg Supp.rect 10 Mg RC PRN DAILY PRN Maalox Advanced Suspension (Mag Hydrox/Al Hydrox/Simeth) 770 Ml Oral.susp 30 Ml PO Q2HR PRN Milk Of Magnesia (Magnesium Hydroxide) 400 Mg/5 Ml Oral.susp 30 Ml PO DAILY PRN Robitussin Cough-Chest Dm Liq (Guaifenesin/Dextromethorphan) 118 Ml Liquid 10 Ml PO Q4HRS PRN Trazodone Hcl 50 Mg Tablet 1 Tab PO QHS Tylenol (Acetaminophen) 325 Mg Tablet 650 Mg PO Q6HRS PRN Pramipexole Dihydrochloride (Pramipexole Di-Hcl) 0.5 Mg Tablet 0.5 Mg PO TID Simvastatin 20 Mg Tablet 1 Tab PO QHS Levothyroxine Sodium 100 Mcg Tablet 1 Tab PO DAILY Gabapentin 800 Mg Tablet 800 Mg PO QID Sinemet 25-100 Mg Tablet (Carbidopa/Levodopa) 1 Each Tablet 2 Tab PO TID Aspirin 81 Mg Tab.chew 1 Tab PO DAILY Vitals/I & O Vital Sign - Last 24 Hours 10/07/16 10/07/16 10/07/16 10/07/16 11:00 13:08 17:13 19:00 Temp 97.7 98.1 97.7 98.1 Pulse 70 68 Resp 18 18 B/P 156/66 121/55 Pulse Ox 98 98 96 O2 Delivery Nasal Cannula Room Air Nasal Cannula Nasal Cannula O2 Flow Rate 2.0 2.0 2.0 10/07/16 10/07/16 10/07/16 10/07/16 20:00 20:28 21:28 23:00 Temp 96.6 96.6 Pulse 82 Resp 20 20 18 B/P 104/40 Pulse Ox 96 96 96 O2 Delivery Nasal Cannula Nasal Cannula Nasal Cannula Nasal Cannula O2 Flow Rate 2.0 2.0 2.0 2.0 10/08/16 10/08/16 10/08/16 10/08/16 03:00 07:00 08:41 08:42 Temp 98.1 96.0 98.1 96.0 Pulse 84 71 71 Resp 18 16 B/P 106/37 120/55 120/55 Pulse Ox 90 92 O2 Delivery Nasal Cannula Room Air Nasal Cannula O2 Flow Rate 2.0 1.0 1.0 Intake and Output 10/07/16 10/07/16 10/08/16 15:00 23:00 07:00 Intake Total 118 ml 237 ml 200 ml Output Total 150 ml Balance 118 ml 87 ml 200 ml RICHARD [place] MD Oct 08, 2016 09:00
--- NOTE | 2016-10-08 09:26 | PDOC ---
Infectious Disease Note Subjective Subjective Better. no vomiting. + Flatus but no BM Has improved pain in left hand Wants a donut to sit on ROS ROS GEN: Denies fevers, chills, sweats HEENT: Denies blurred vision, sore throat CV: Denies chest pain RESP: Denies shortness of air, cough GI: Denies n/v/d NEURO: Denies confusion, dizziness MSK: Denies weakness, joint pain/swelling Vital Sign Vital Signs Vital Signs Date Time Temp Pulse Resp B/P Pulse Ox O2 Delivery O2 Flow Rate FiO2 10/08/16 08:42 71 120/55 10/08/16 08:41 Nasal Cannula 1.0 10/08/16 07:00 96.0 16 92 96.0 Physical Exam PHYSICAL EXAM GENERAL: NAD, Alert, in bed HEENT: PERRL, OC/OP - clear NECK: Supple, no JVD, no LN LUNGS: Clear HEART: S1S2, no gallop, no murmur ABD: Soft, NT, no organomegaly, no rebound, Distended EXT: Gen 1 plus edema, no cyanosis PROP 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, 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, no focal neurologic deficit SKIN: No rash IV: ok Labs Lab Laboratory Tests Test 10/08/16 06:05 White Blood Count 5.6x10^3/uL (4.0-11.0) Red Blood Count 2.69x10^6/uL (4.30-5.70) Hemoglobin 8.9g/dL (13.0-17.5) Hematocrit 27.1% (39.0-53.0) Mean Corpuscular Volume 101fL (79-100) Mean Corpuscular Hemoglobin 33pg (25-35) Mean Corpuscular Hemoglobin Concent 33g/dL (31-37) Red Cell Distribution Width 15.4% (11.5-14.5) Platelet Count 231x10^3/uL (140-400) Neutrophils (%) (Auto) 66% (31-73) Lymphocytes (%) (Auto) 23% (24-48) Monocytes (%) (Auto) 9% (0-9) Eosinophils (%) (Auto) 1% (0-3) Basophils (%) (Auto) 1% (0-3) Neutrophils # (Auto) 3.7x10^3uL (1.8-7.7) Lymphocytes # (Auto) 1.3x10^3/uL (1.0-4.8) Monocytes # (Auto) 0.5x10^3/uL (0.0-1.1) Eosinophils # (Auto) 0.1x10^3/uL (0.0-0.7) Basophils # (Auto) 0.0x10^3/uL (0.0-0.2) Sodium Level 142mmol/L (136-145) Potassium Level 4.2mmol/L (3.5-5.1) Chloride Level 107mmol/L (98-107) Carbon Dioxide Level 30mmol/L (21-32) Anion Gap 5 (6-14) Blood Urea Nitrogen 41mg/dL (8-26) Creatinine 1.6mg/dL (0.7-1.3) Estimated GFR (Cockcroft-Gault) 41.3 Glucose Level 123mg/dL (70-99) Calcium Level 8.6mg/dL (8.5-10.1) Micro Klebsiella pneumoniae 50,000-100,000 colony forming units per mL ANTIMICROBIAL SUSCEPTIBILITY Final Comment S = Susceptible; I = Intermediate; R = Resistant P = Positive; N = Negative MICS are expressed in micrograms per mL Antibiotic RSLT#1 RSLT#2 RSLT#3 RSLT#4 Amoxicillin/Clavulanic Acid S Ampicillin R Cefepime S Ceftriaxone S Cefuroxime S Cephalothin S Ciprofloxacin S Ertapenem S Gentamicin S Imipenem S Levofloxacin S Nitrofurantoin S Piperacillin S Tetracycline S Tobramycin S Trimethoprim/Sulfa S Objective Assessment Fever - better TAYLOR Klebsiella UTI 10/04 although a lot of squamous cells present on UA Small bowel obstruction - seems improved and no NGT Left hand pain and warmth - better with less edema N/V - better Dislodgement of NGT - out Hiatal hernia + MRSA Cipro allergy. Seizure disorder Parkinson's disease h/o UTI: Citrobacter & Klebsiella h/o E. coli bacteremia Plan Plan of Care Requested marii Eli for now given recent SBO and vomiting. monitor Cr Elevation f/u am labs and cultures D/w SAMI Edwards MD Oct 08, 2016 09:26
[2016-10-08] MEDS ORDERED: BISACODYL 10 MG SUPP.RECT PR ONE (09:30)
[2016-10-08] MEDS: IV 1/2 NORMAL SALINE 1,000 ML IV SCH (10:12)
[2016-10-08 11:00] VITALS: BP 148/69
[2016-10-08 15:00] VITALS: BP 195/108
[2016-10-08 19:00] VITALS: BP 156/71
[2016-10-08] MEDS: TAMSULOSIN 0.4 MG CAP.ER.24H. PO SCH (22:20)
[2016-10-08] MEDS: SIMVASTATIN 20 MG TABLET PO SCH (22:21)
[2016-10-08 23:00] VITALS: BP 140/61
[2016-10-09] MEDS: IV 1/2 NORMAL SALINE 1,000 ML IV SCH (02:52)
[2016-10-09 03:00] VITALS: BP 113/54
[2016-10-09 05:22] LABS: BASO % 1 % (0-3); EOS % 2 % (0-3); HEMATOCRIT 26.8 % (39.0-53.0); HEMOGLOBIN 8.7 g/dL (13.0-17.5); LYMPH # 1.6 x10^3/uL (1.0-4.8); LYMPH % 27 % (24-48); MEAN CORPUSCULAR HEMOGLOBIN 33 pg (25-35); MEAN CORPUSCULAR HGB CONC 33 g/dL (31-37); MEAN CORPUSCULAR VOLUME 100 fL (79-100); MONO % 9 % (0-9); NEUT % 61 % (31-73); PLATELET COUNT 243 x10^3/uL (140-400); RED BLOOD COUNT 2.67 x10^6/uL (4.30-5.70); RED CELL DISTRIBUTION WIDTH 15.1 % (11.5-14.5); WHITE BLOOD COUNT 5.9 x10^3/uL (4.0-11.0)
[2016-10-09 05:41] LABS: CALCIUM 8.5 mg/dL (8.5-10.1); CREATININE 1.7 mg/dL (0.7-1.3); GFR 38.5; POTASSIUM 4.1 mmol/L (3.5-5.1)
[2016-10-09] MEDS: PANTOPRAZOLE 40 MG TABLET. PO SCH (06:26)
[2016-10-09] MEDS: LEVOTHYROXINE 100 MCG TABLET PO SCH (06:26)
[2016-10-09] MEDS: PIPERACILLIN/TAZOBACTAM 3.375 GM in IV NORMAL SALINE 50ML 50 ML IV SCH (06:26)
[2016-10-09 07:00] VITALS: BP 114/68
[2016-10-09] MEDS: PRAMIPEXOLE 0.25 MG TABLET. PO SCH ×2 (08:28→13:35)
[2016-10-09] MEDS: GABAPENTIN 300 MG CAPSULE. PO SCH ×3 (08:28→17:15)
[2016-10-09] MEDS: TRAMADOL 50 MG TABLET. PO SCH ×3 (08:29→17:15)
[2016-10-09] MEDS: CARBIDOPA/LEVODOPA CR 50/200MG TABLET.SA PO SCH ×2 (08:29→13:35)
[2016-10-09] MEDS: METOPROLOL SUCC 24HR ER 25 MG TAB.ER.24H. PO SCH (08:29)
[2016-10-09] MEDS: PREDNISONE 10 MG TABLET PO SCH (08:29)
[2016-10-09] MEDS: ASPIRIN 81 MG TAB.CHEW PO SCH (08:29)
[2016-10-09] MEDS: LEVETIRACETAM 250 MG TABLET. PO SCH (08:29)
[2016-10-09] MEDS: ENOXAPARIN 40 MG/0.4 ML DISP.SYRIN. SQ SCH (08:30)
[2016-10-09 10:47] VITALS: BP 116/52
--- NOTE | 2016-10-09 10:54 | PDOC ---
Infectious Disease Note Subjective Subjective Better. no vomiting. + BM Wants a donut to sit on ROS ROS GEN: Denies fevers, chills, sweats HEENT: Denies blurred vision, sore throat CV: Denies chest pain RESP: Denies shortness of air, cough GI: Denies n/v/d NEURO: Denies confusion, dizziness MSK: Denies weakness, joint pain/swelling Vital Sign Vital Signs Vital Signs Date Time Temp Pulse Resp B/P Pulse Ox O2 Delivery O2 Flow Rate FiO2 10/09/16 08:29 Nasal Cannula 2.0 10/09/16 08:29 111 114/68 10/09/16 07:00 97.5 16 89 97.5 Physical Exam PHYSICAL EXAM GENERAL: NAD, Alert, in chair HEENT: PERRL, OC/OP - clear NECK: Supple, no JVD, no LN LUNGS: Clear HEART: S1S2, no gallop, no murmur ABD: Soft, NT, no organomegaly, no rebound, Distended EXT: Gen 1 plus edema, no cyanosis 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, 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, no focal neurologic deficit SKIN: No rash IV: ok Labs Lab Laboratory Tests Test 10/09/16 04:45 White Blood Count 5.9x10^3/uL (4.0-11.0) Red Blood Count 2.67x10^6/uL (4.30-5.70) Hemoglobin 8.7g/dL (13.0-17.5) Hematocrit 26.8% (39.0-53.0) Mean Corpuscular Volume 100fL (79-100) Mean Corpuscular Hemoglobin 33pg (25-35) Mean Corpuscular Hemoglobin Concent 33g/dL (31-37) Red Cell Distribution Width 15.1% (11.5-14.5) Platelet Count 243x10^3/uL (140-400) Neutrophils (%) (Auto) 61% (31-73) Lymphocytes (%) (Auto) 27% (24-48) Monocytes (%) (Auto) 9% (0-9) Eosinophils (%) (Auto) 2% (0-3) Basophils (%) (Auto) 1% (0-3) Neutrophils # (Auto) 3.7x10^3uL (1.8-7.7) Lymphocytes # (Auto) 1.6x10^3/uL (1.0-4.8) Monocytes # (Auto) 0.5x10^3/uL (0.0-1.1) Eosinophils # (Auto) 0.1x10^3/uL (0.0-0.7) Basophils # (Auto) 0.0x10^3/uL (0.0-0.2) Sodium Level 140mmol/L (136-145) Potassium Level 4.1mmol/L (3.5-5.1) Chloride Level 105mmol/L (98-107) Carbon Dioxide Level 31mmol/L (21-32) Anion Gap 4 (6-14) Blood Urea Nitrogen 42mg/dL (8-26) Creatinine 1.7mg/dL (0.7-1.3) Estimated GFR (Cockcroft-Gault) 38.5 Glucose Level 118mg/dL (70-99) Calcium Level 8.5mg/dL (8.5-10.1) Micro Klebsiella pneumoniae 50,000-100,000 colony forming units per mL ANTIMICROBIAL SUSCEPTIBILITY Final Comment S = Susceptible; I = Intermediate; R = Resistant P = Positive; N = Negative MICS are expressed in micrograms per mL Antibiotic RSLT#1 RSLT#2 RSLT#3 RSLT#4 Amoxicillin/Clavulanic Acid S Ampicillin R Cefepime S Ceftriaxone S Cefuroxime S Cephalothin S Ciprofloxacin S Ertapenem S Gentamicin S Imipenem S Levofloxacin S Nitrofurantoin S Piperacillin S Tetracycline S Tobramycin S Trimethoprim/Sulfa S Objective Assessment Fever - better TAYLOR Klebsiella UTI 10/04 although a lot of squamous cells present on UA Small bowel obstruction - seems improved and no NGT Left hand pain and warmth - better with less edema N/V - better Dislodgement of NGT - out Hiatal hernia + MRSA Cipro allergy. Seizure disorder Parkinson's disease h/o UTI: Citrobacter & Klebsiella h/o E. coli bacteremia Plan Plan of Care Requested donut now looking for device to inflate - d/w nursing Discont Zosyn begin Cefpodoxime thru 10/14 SAMI MARTINEZ MD Oct 09, 2016 10:54
[2016-10-09] MEDS ORDERED: CEFPODOXIME PROXETIL 200 MG TABLET PO SCH (11:00)
--- NOTE | 2016-10-09 11:56 | PDOC ---
PROGRESS NOTES Subjective Subjective eating solid food and had a BM. lab reviewed. has ckd stage 3. switched to [facility]. concurs with snf Objective Objective Vital Signs Date Time Temp Pulse Resp B/P Pulse Ox O2 Delivery O2 Flow Rate FiO2 10/09/16 10:47 97.5 81 16 116/52 90 Room Air 97.5 10/09/16 09:30 2.0 Intake and Output 10/09/16 07:00 Intake Total 1727 ml Balance 1727 ml Intake Oral 570 ml IV Total 1157 ml # Voids 5 # Bowel Movements 4 Physical Exam Abdomen: Soft Heart: Regular rate, Normal S1, Normal S2 Extremities: No edema General: Alert HEENT: Atraumatic Lungs: Clear to auscultation MUSCULOSKELETAL: Other (in redness or swelling in left hand or wrist) Neuro: Normal gait Psych/Mental Status: Mood NL Skin: No rashes Assessment Assessment Problems Medical Problems:Small-bowel obstruction resolved 2. Seizure disorder. 3. Parkinson's disease. 4. Hypothyroidism. 5. Peripheral neuropathy. 6. Hypertension. BP high 7. Chronic kidney disease stage III. klebsiella uti suspect gout left hand and wrist resolved peripheral edema resolved critical illness myopathy (1) SBO (small bowel obstruction) Status: Acute Plan Plan of Care [facility] screen and transfer today Comment Review of Relevant I have reviewed the following items [place] (where applicable) has been applied. Labs Laboratory Tests Test 10/08/16 06:05 10/09/16 04:45 White Blood Count 5.6x10^3/uL (4.0-11.0) 5.9x10^3/uL (4.0-11.0) Red Blood Count 2.69x10^6/uL (4.30-5.70) 2.67x10^6/uL (4.30-5.70) Hemoglobin 8.9g/dL (13.0-17.5) 8.7g/dL (13.0-17.5) Hematocrit 27.1% (39.0-53.0) 26.8% (39.0-53.0) Mean Corpuscular Volume 101fL (79-100) 100fL (79-100) Mean Corpuscular Hemoglobin 33pg (25-35) 33pg (25-35) Mean Corpuscular Hemoglobin Concent 33g/dL (31-37) 33g/dL (31-37) Red Cell Distribution Width 15.4% (11.5-14.5) 15.1% (11.5-14.5) Platelet Count 231x10^3/uL (140-400) 243x10^3/uL (140-400) Neutrophils (%) (Auto) 66% (31-73) 61% (31-73) Lymphocytes (%) (Auto) 23% (24-48) 27% (24-48) Monocytes (%) (Auto) 9% (0-9) 9% (0-9) Eosinophils (%) (Auto) 1% (0-3) 2% (0-3) Basophils (%) (Auto) 1% (0-3) 1% (0-3) Neutrophils # (Auto) 3.7x10^3uL (1.8-7.7) 3.7x10^3uL (1.8-7.7) Lymphocytes # (Auto) 1.3x10^3/uL (1.0-4.8) 1.6x10^3/uL (1.0-4.8) Monocytes # (Auto) 0.5x10^3/uL (0.0-1.1) 0.5x10^3/uL (0.0-1.1) Eosinophils # (Auto) 0.1x10^3/uL (0.0-0.7) 0.1x10^3/uL (0.0-0.7) Basophils # (Auto) 0.0x10^3/uL (0.0-0.2) 0.0x10^3/uL (0.0-0.2) Sodium Level 142mmol/L (136-145) 140mmol/L (136-145) Potassium Level 4.2mmol/L (3.5-5.1) 4.1mmol/L (3.5-5.1) Chloride Level 107mmol/L (98-107) 105mmol/L (98-107) Carbon Dioxide Level 30mmol/L (21-32) 31mmol/L (21-32) Anion Gap 5 (6-14) 4 (6-14) Blood Urea Nitrogen 41mg/dL (8-26) 42mg/dL (8-26) Creatinine 1.6mg/dL (0.7-1.3) 1.7mg/dL (0.7-1.3) Estimated GFR (Cockcroft-Gault) 41.3 38.5 Glucose Level 123mg/dL (70-99) 118mg/dL (70-99) Calcium Level 8.6mg/dL (8.5-10.1) 8.5mg/dL (8.5-10.1) Laboratory Tests Test 10/09/16 04:45 White Blood Count 5.9x10^3/uL (4.0-11.0) Red Blood Count 2.67x10^6/uL (4.30-5.70) Hemoglobin 8.7g/dL (13.0-17.5) Hematocrit 26.8% (39.0-53.0) Mean Corpuscular Volume 100fL (79-100) Mean Corpuscular Hemoglobin 33pg (25-35) Mean Corpuscular Hemoglobin Concent 33g/dL (31-37) Red Cell Distribution Width 15.1% (11.5-14.5) Platelet Count 243x10^3/uL (140-400) Neutrophils (%) (Auto) 61% (31-73) Lymphocytes (%) (Auto) 27% (24-48) Monocytes (%) (Auto) 9% (0-9) Eosinophils (%) (Auto) 2% (0-3) Basophils (%) (Auto) 1% (0-3) Neutrophils # (Auto) 3.7x10^3uL (1.8-7.7) Lymphocytes # (Auto) 1.6x10^3/uL (1.0-4.8) Monocytes # (Auto) 0.5x10^3/uL (0.0-1.1) Eosinophils # (Auto) 0.1x10^3/uL (0.0-0.7) Basophils # (Auto) 0.0x10^3/uL (0.0-0.2) Sodium Level 140mmol/L (136-145) Potassium Level 4.1mmol/L (3.5-5.1) Chloride Level 105mmol/L (98-107) Carbon Dioxide Level 31mmol/L (21-32) Anion Gap 4 (6-14) Blood Urea Nitrogen 42mg/dL (8-26) Creatinine 1.7mg/dL (0.7-1.3) Estimated GFR (Cockcroft-Gault) 38.5 Glucose Level 118mg/dL (70-99) Calcium Level 8.5mg/dL (8.5-10.1) Microbiology 10/04/16 Blood Culture - Preliminary, Resulted NO GROWTH AFTER 4 DAYS 10/04/16 Urine Culture - Final, Complete 10/04/16 Urine Culture Result 1 (MANDEEP) - Final, Complete 10/04/16 Antimicrobic Susceptibility - Final, Complete Medications Current Medications Fentanyl Citrate 50 mcg 50 mcg PRN Q15MIN PRN IV PAIN GREATER THAN 3/10 Last administered on 09/30/16at 19:35; Start 09/30/16 at 17:30; Stop 10/01/16 at 04 :24; Status DC Lactated Ringer's (Iv Lactated Ringers) 1,000 ml @ 100 mls/hr Q10H IV Last administered on 09/30/16at 19:35; Start 09/30/16 at 17:28; Stop 10/01/16 at 03 :27; Status DC Ondansetron HCl (Zofran) 4 mg 1X ONCE IV Last administered on 09/30/16at 17:44 ; Start 09/30/16 at 17:30; Stop 09/30/16 at 17:32; Status DC Fentanyl Citrate (Fentanyl 2ml Vial) 50 mcg 1X ONCE IV ; Start 09/30/16 at 19: 15; Stop 10/01/16 at 04:24; Status DC Ondansetron HCl (Zofran) 4 mg PRN Q8HRS PRN IV NAUSEA/VOMITING Last administered on 09/30/16at 22:07; Start 09/30/16 at 19:15; Stop 10/01/16 at 19 :14; Status DC Fentanyl Citrate 50 mcg 50 mcg PRN Q2HR PRN IV PAIN Last administered on at 16:54; Start 09/30/16 at 19:15; Stop 10/01/16 at 19:14; Status DC Sodium Chloride 1,000 ml @ 100 mls/hr Q10H IV ; Start 09/30/16 at 19:30; Stop 10/01/16 at 04:24; Status DC Potassium Chloride/Dextrose/ Sod Cl (KCl 20 Meq In D5W-1/2 NS) 1,000 ml @ 125 mls/hr Q8H IV Last administered on 10/04/16at 06:02; Start 09/30/16 at 20:00; Stop 10/04/16 at 10:21; Status DC Enoxaparin Sodium 40 mg 40 mg Q24H SQ Last administered on 10/09/16 08:30; Start 10/01/16 at 09:00 Levetiracetam/ Sodium Chloride (Keppra/Iv Sodium Chloride 0.9% 100ml) 105 ml @ 400 mls/hr Q12HR IV Last administered on 10/05/16 09:30; Start 09/30/16 at 21: 00; Stop 10/05/16 at 10:24; Status DC Morphine Sulfate 2 mg PRN Q4HRS PRN IV SEVERE PAIN Last administered on 10:13; Start 09/30/16 at 19:30; Stop 10/05/16 at 10:24; Status DC Acetaminophen (Tylenol) 650 mg PRN Q6HRS PRN ND MILD PAIN / TEMP; Start at 19:30; Stop 10/05/16 at 10:24; Status DC Ondansetron HCl (Zofran) 4 mg PRN Q6HRS PRN IV NAUSEA/VOMITING Last administered on 10/07/16 08:28; Start 09/30/16 at 19:30 Benzocaine (Hurricaine One) 1 spray STK-MED ONCE .ROUTE ; Start 09/30/16 at 19: 51; Stop 09/30/16 at 19:52; Status DC Morphine Sulfate 4 mg PRN Q4HRS PRN IV PAIN Last administered on 10/05/16 08:08 ; Start 10/01/16 at 20:00; Stop 10/05/16 at 10:24; Status DC Clonidine HCl 1 patch 1 patch WEEKLY TD Last administered on 10/03/16at 12:30; Start 10/03/16 at 10:00; Stop 10/05/16 at 10:24; Status DC Piperacillin Sod/ Tazobactam Sod/ Sodium Chloride (Zosyn/Iv Sodium Chloride 0.9 % 50ml) 50 ml @ 100 mls/hr Q6HRS IV Last administered on 10/09/16 06:26; Start 10/04/16 at 11:00; Stop 10/09/16 at 10:55; Status DC Vancomycin HCl 1 each 1 each PRN DAILY PRN MC SEE COMMENTS Last administered on 10/07/16 11:11; Start 10/04/16 at 10:15; Stop 10/07/16 at 11:28; Status DC Vancomycin HCl/ Sodium Chloride (Iv Sodium Chloride 0.9% 250ml) 250 ml @ 250 mls/hr Q24H IV ; Start 10/04/16 at 10:15; Status UNV Labetalol HCl (Normodyne) 20 mg PRN Q6HRS PRN IVP HYPERTENSION, SEE COMMENTS; Start 10/04/16 at 10:15; Stop 10/05/16 at 10:24; Status DC Hydralazine HCl 10 mg 10 mg PRN Q6HRS PRN IVP ELEVATED BP, SEE COMMENTS Last administered on 10/06/16 19:17; Start 10/04/16 at 10:15 Amino Acids/ Glycerin/ Electrolytes 1,000 ml @ 40 mls/hr Q24H IV Last administered on 10/06/16 09:59; Start 10/04/16 at 10:15; Stop 10/07/16 at 09:06 ; Status DC Vancomycin HCl 2 gm/Sodium Chloride 500 ml @ 250 mls/hr 1X ONCE IV Last administered on 10/04/16at 11:26; Start 10/04/16 at 10:45; Stop 10/04/16 at 12 :44; Status DC Vancomycin HCl/ Sodium Chloride (Iv Sodium Chloride 0.9% 500ml Bag) 500 ml @ 250 mls/hr Q24H IV Last administered on 10/06/16 11:47; Start 10/05/16 at 12:00 ; Stop 10/07/16 at 11:28; Status DC Vancomycin HCl 1 each 1X ONCE MC Last administered on 10/06/16 11:30; Start at 11:30; Stop 10/06/16 at 11:31; Status DC Aspirin (Children'S Aspirin) 81 mg [id number] PO Last administered on 10/09/16 08:29; Start 10/05/16 at 11:00 Gabapentin (Neurontin) 600 mg QID PO Last administered on 10/09/16 08:28; Start 10/05/16 at 13:00 Levetiracetam (Keppra) 250 mg BID PO Last administered on 10/09/16 08:29; Start 10/05/16 at 11:00 Levothyroxine Sodium (Synthroid) 100 mcg DAILY07 PO Last administered on 06:26; Start 10/05/16 at 10:30 Metoprolol Succinate (Toprol Xl) 25 mg DAILY PO Last administered on 10/09/16 08:29; Start 10/05/16 at 11:00 Pramipexole Dihydrochloride (miraPEX) 0.5 mg [id number] PO Last administered on 10/09 08:28; Start 10/05/16 at 11:00 Simvastatin (Zocor) 20 mg HS PO Last administered on 10/08/16 22:21; Start 10/05 at 21:00 Carbidopa/Levodopa (Sinemet Cr) 1 tab.sa TID PO Last administered on 10/09/16 08:29; Start 10/05/16 at 11:00 Tamsulosin HCl (Flomax) 0.4 mg QHS PO Last administered on 10/08/16 22:20; Start 10/05/16 at 21:00 Tramadol HCl (Ultram) 50 mg QID PO Last administered on 10/09/16 08:29; Start 10/05/16 at 13:00 Acetaminophen (Tylenol) 650 mg PRN Q4HRS PRN PO MILD PAIN / TEMP Last administered on 10/06/16 19:16; Start 10/05/16 at 10:15 Prednisone (Prednisone) 20 mg 1X ONCE PO Last administered on 10/06/16 11:01; Start 10/06/16 at 10:30; Stop 10/06/16 at 10:31; Status DC Prednisone (Prednisone) 10 mg DAILY08 PO Last administered on 10/09/16 08:29; Start 10/07/16 at 08:00 Al Hydroxide/Mg Hydroxide (Mylanta Plus Xs) 30 ml PRN Q4HRS PRN PO HEARTBURN / GAS Last administered on 10/07/16 17:42; Start 10/07/16 at 08:45 Pantoprazole Sodium (Protonix) 40 mg DAILYAC PO Last administered on 10/09/16 06:26; Start 10/07/16 at 10:00 Furosemide 40 mg 40 mg DAILY PO Last administered on 10/08/16 08:42; Start 10/07 at 10:00; Stop 10/08/16 at 08:56; Status DC Sodium Chloride (Iv Sodium Chloride 0.45%) 1,000 ml @ 60 mls/hr CONT PRN IV . ; Start 10/08/16 at 09:00; Stop 10/08/16 at 16:06; Status DC Bisacodyl 10 mg 10 mg 1X ONCE ND Last administered on 10/08/16 10:11; Start at 09:30; Stop 10/08/16 at 09:31; Status DC Sodium Chloride (Iv Sodium Chloride 0.45%) 1,000 ml @ 60 mls/hr [id number] IV Last administered on 10/09/16 02:52; Start 10/08/16 at 10:15 Cefpodoxime Proxetil (Vantin) 200 mg BID PO ; Start 10/09/16 at 11:00 Active Scripts Active Hydrocodone-Apap 5-325 (Hydrocodone Bit/Acetaminophen) 1 Each Tablet 1 Tab PO PRN Q6HRS PRN Metoprolol Succinate ( Xl ) (Metoprolol Succinate) 25 Mg Tab.er.24h 25 Mg PO DAILY Reported Flomax (Tamsulosin Hcl) 0.4 Mg Cap.er.24h 1 Cap PO QHS Tramadol Hcl 100 Mg Tab.er.24h 100 Mg PO QID Levetiracetam 250 Mg Tablet 250 Mg PO BID Dulcolax (Bisacodyl) 10 Mg Supp.rect 10 Mg RC PRN DAILY PRN Maalox Advanced Suspension (Mag Hydrox/Al Hydrox/Simeth) 770 Ml Oral.susp 30 Ml PO Q2HR PRN Milk Of Magnesia (Magnesium Hydroxide) 400 Mg/5 Ml Oral.susp 30 Ml PO DAILY PRN Robitussin Cough-Chest Dm Liq (Guaifenesin/Dextromethorphan) 118 Ml Liquid 10 Ml PO Q4HRS PRN Trazodone Hcl 50 Mg Tablet 1 Tab PO QHS Tylenol (Acetaminophen) 325 Mg Tablet 650 Mg PO Q6HRS PRN Pramipexole Dihydrochloride (Pramipexole Di-Hcl) 0.5 Mg Tablet 0.5 Mg PO TID Simvastatin 20 Mg Tablet 1 Tab PO QHS Levothyroxine Sodium 100 Mcg Tablet 1 Tab PO DAILY Gabapentin 800 Mg Tablet 800 Mg PO QID Sinemet 25-100 Mg Tablet (Carbidopa/Levodopa) 1 Each Tablet 2 Tab PO TID Aspirin 81 Mg Tab.chew 1 Tab PO DAILY Vitals/I & O Vital Sign - Last 24 Hours 10/08/16 10/08/16 10/08/16 10/08/16 13:21 15:00 17:36 19:00 Temp 98.8 97.1 98.8 97.1 Pulse 67 81 Resp 16 18 B/P 195/108 156/71 Pulse Ox 94 94 O2 Delivery Nasal Cannula Room Air Nasal Cannula Room Air O2 Flow Rate 2.0 2.0 10/08/16 10/08/16 10/08/16 10/08/16 20:15 22:21 23:00 23:21 Temp 97.9 97.9 Pulse 78 Resp 20 20 20 B/P 140/61 Pulse Ox 94 96 94 O2 Delivery Room Air Room Air Room Air 10/09/16 10/09/16 10/09/16 10/09/16 03:00 07:00 08:29 08:29 Temp 97.7 97.5 97.7 97.5 Pulse 65 111 111 Resp 18 16 B/P 113/54 114/68 114/68 Pulse Ox 96 89 O2 Delivery Room Air Room Air Nasal Cannula O2 Flow Rate 2.0 10/09/16 10/09/16 09:30 10:47 Temp 97.5 97.5 Pulse 81 Resp 16 B/P 116/52 Pulse Ox 90 O2 Delivery Nasal Cannula Room Air O2 Flow Rate 2.0 Intake and Output 10/08/16 10/08/16 10/09/16 15:00 23:00 07:00 Intake Total 300 ml 540 ml 887 ml Balance 300 ml 540 ml 887 ml RICHARD NJ MD Oct 09, 2016 11:56
--- NOTE | 2016-10-09 12:06 | PDOC ---
Provider Note Provider Note discharge summary dictated # [id number] RICHARD NJ MD Oct 09, 2016 12:06
--- NOTE | 2016-10-09 12:07 | DISCH ---
DISCHARGE INSTRUCTIONS Condition on Discharge Condition on Discharge: Stable Activity After Discharge Activity Instructions for Disc: Resume previous activity Other activity instructions: work on transfers with PT Diet after Discharge Diet after Discharge: Regular Contacting the DRJuana after DC Call your doctor for: If your condition worsens Follow-Up Follow up with: dr. nj at [facility] RICHARD NJ MD Oct 09, 2016 12:07
[2016-10-09 15:00] VITALS: BP 116/52
--- NOTE | 2016-10-09 16:15 | DS ---
DATE OF DISCHARGE: 10/09/2016 DATE OF ANTICIPATED DISMISSAL: 10/09/2016 CONSULTANTS: Include Dr. Schumacher, Dr. Brian, and Dr. Barak Ann. FINAL DIAGNOSES: 1. Small bowel obstruction, which resolved. 2. Seizure disorder. 3. Parkinson disease. 4. Hypothyroidism. 5. Peripheral neuropathy. 6. Hypertension. 7. Chronic kidney disease stage III. 8. Klebsiella urinary tract infection. 9. 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 10. Peripheral edema, which resolved. 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 HOSPITAL COURSE: The patient is an 86-year-old white male who noted to have a 1-day history of nausea, vomiting, abdominal pain with abdominal distention and went to the [facility] Emergency Room where CAT scan was consistent with a partial small bowel obstruction, treated with n.p.o., IV fluids, and nasogastric tube, seen in consultation by Dr. Schumacher for General Surgery. The patient also has a history of a seizure disorder treated with Keppra, Parkinson's disease, hypothyroidism, hypertension, chronic kidney disease stage III and peripheral neuropathy. The patient's bowel eventually improved and nasogastric tube was clamped and eventually discontinued, started on clear liquids to full liquids to soft solids, which he tolerated well and had a bowel movement yesterday. He did receive physical and occupational therapy as he had critical illness myopathy. He did have a fever, treated with IV antibiotics and blood cultures were negative and a urine culture grew Klebsiella and that was treated with IV Zosyn and switched to oral Vantin. He developed gout with acute synovitis involving the left wrist and hand. He was treated with prednisone with resolution of the inflammation. The patient does have chronic kidney disease stage III. He will be dismissed to a nursing home facility, hopefully later today on Tylenol 650 mg every 4 hours p.r.n., aspirin 81 mg every day, Sinemet-CR 550/200 mg one tablet t.i.d., Vantin 100 mg b.i.d. to be stopped on 10/15/2016, he has chronic kidney disease stage III. He also be dismissed on gabapentin 600 mg q.i.d., Keppra 250 mg b.i.d., levothyroxine 100 mcg every day, metoprolol succinate 25 mg every day, Protonix 40 mg every day, Mirapex 0.5 mg t.i.d., prednisone 10 mg everyday to be discontinued on 10/13/2016, simvastatin 20 mg at bedtime, tamsulosin 0.4 mg at bedtime, tramadol 50 mg q.i.d. We will discontinue his oxygen as his oxygen saturation is greater than 90%. He will be dismissed on a regular diet and dismissed to a nursing home facility later today. Again, we will discontinue the oxygen if the saturations are greater than 90% on room air. He will receive physical and occupational therapy. RICHARD NJ MD DR: ANA/lexy JOB#: [id number] / [id number]
[2016-10-09 19:00] VITALS: BP 142/59
[2016-10-09 23:00] VITALS: BP 155/60
[2016-10-10] MEDS: PRAMIPEXOLE 0.25 MG TABLET. PO SCH ×4 (00:07→21:13)
[2016-10-10] MEDS: GABAPENTIN 300 MG CAPSULE. PO SCH ×5 (00:07→21:13)
[2016-10-10] MEDS: LEVETIRACETAM 250 MG TABLET. PO SCH ×3 (00:08→21:14)
[2016-10-10] MEDS: CARBIDOPA/LEVODOPA CR 50/200MG TABLET.SA PO SCH ×4 (00:08→21:12)
[2016-10-10] MEDS: TAMSULOSIN 0.4 MG CAP.ER.24H. PO SCH ×2 (00:08→21:12)
[2016-10-10] MEDS: SIMVASTATIN 20 MG TABLET PO SCH ×2 (00:08→21:13)
[2016-10-10] MEDS: CEFPODOXIME PROXETIL 200 MG TABLET PO SCH ×3 (00:12→21:12)
[2016-10-10] MEDS: TRAMADOL 50 MG TABLET. PO SCH ×5 (00:13→21:14)
[2016-10-10 03:00] VITALS: BP 133/59
[2016-10-10 07:00] VITALS: BP 104/45
[2016-10-10] MEDS: PREDNISONE 10 MG TABLET PO SCH (08:41)
[2016-10-10] MEDS: ASPIRIN 81 MG TAB.CHEW PO SCH (08:41)
[2016-10-10] MEDS: PANTOPRAZOLE 40 MG TABLET. PO SCH (08:42)
[2016-10-10] MEDS: METOPROLOL SUCC 24HR ER 25 MG TAB.ER.24H. PO SCH (08:42)
[2016-10-10] MEDS: LEVOTHYROXINE 100 MCG TABLET PO SCH (08:42)
[2016-10-10] MEDS: ENOXAPARIN 40 MG/0.4 ML DISP.SYRIN. SQ SCH (08:45)
--- NOTE | 2016-10-10 09:09 | PDOC ---
PROGRESS NOTES Subjective Subjective feels well. eating well and had a BM. hopefully transfer to snf today Objective Objective Vital Signs Date Time Temp Pulse Resp B/P Pulse Ox O2 Delivery O2 Flow Rate FiO2 10/10/16 08:42 81 104/45 10/10/16 08:41 Nasal Cannula 2.0 10/10/16 07:00 96.0 20 95 96.0 Intake and Output 10/10/16 07:00 # Voids 3 # Bowel Movements 2 Physical Exam Abdomen: Normal bowel sounds, Soft, No tenderness Heart: Regular rate, Normal S1, Normal S2 Extremities: No edema General: Alert HEENT: Atraumatic Lungs: Clear to auscultation Neuro: Normal speech Psych/Mental Status: Mood NL Skin: No rashes Assessment Assessment Problems Medical Problems:Small-bowel obstruction resolved 2. Seizure disorder. 3. Parkinson's disease. 4. Hypothyroidism. 5. Peripheral neuropathy. 6. Hypertension. BP high 7. Chronic kidney disease stage III. klebsiella uti suspect gout left hand and wrist resolved peripheral edema resolved critical illness myopathy (1) SBO (small bowel obstruction) Status: Acute Plan Plan of Care dismiss today to [facility] Comment Review of Relevant I have reviewed the following items [place] (where applicable) has been applied. Labs Laboratory Tests Test 10/09/16 04:45 White Blood Count 5.9x10^3/uL (4.0-11.0) Red Blood Count 2.67x10^6/uL (4.30-5.70) Hemoglobin 8.7g/dL (13.0-17.5) Hematocrit 26.8% (39.0-53.0) Mean Corpuscular Volume 100fL (79-100) Mean Corpuscular Hemoglobin 33pg (25-35) Mean Corpuscular Hemoglobin Concent 33g/dL (31-37) Red Cell Distribution Width 15.1% (11.5-14.5) Platelet Count 243x10^3/uL (140-400) Neutrophils (%) (Auto) 61% (31-73) Lymphocytes (%) (Auto) 27% (24-48) Monocytes (%) (Auto) 9% (0-9) Eosinophils (%) (Auto) 2% (0-3) Basophils (%) (Auto) 1% (0-3) Neutrophils # (Auto) 3.7x10^3uL (1.8-7.7) Lymphocytes # (Auto) 1.6x10^3/uL (1.0-4.8) Monocytes # (Auto) 0.5x10^3/uL (0.0-1.1) Eosinophils # (Auto) 0.1x10^3/uL (0.0-0.7) Basophils # (Auto) 0.0x10^3/uL (0.0-0.2) Sodium Level 140mmol/L (136-145) Potassium Level 4.1mmol/L (3.5-5.1) Chloride Level 105mmol/L (98-107) Carbon Dioxide Level 31mmol/L (21-32) Anion Gap 4 (6-14) Blood Urea Nitrogen 42mg/dL (8-26) Creatinine 1.7mg/dL (0.7-1.3) Estimated GFR (Cockcroft-Gault) 38.5 Glucose Level 118mg/dL (70-99) Calcium Level 8.5mg/dL (8.5-10.1) Microbiology 10/04/16 Blood Culture - Final, Complete NO GROWTH AFTER 5 DAYS 10/04/16 Urine Culture - Final, Complete 10/04/16 Urine Culture Result 1 (MANDEEP) - Final, Complete 10/04/16 Antimicrobic Susceptibility - Final, Complete Medications Current Medications Fentanyl Citrate 50 mcg 50 mcg PRN Q15MIN PRN IV PAIN GREATER THAN 3/10 Last administered on 09/30/16at 19:35; Start 09/30/16 at 17:30; Stop 10/01/16 at 04 :24; Status DC Lactated Ringer's (Iv Lactated Ringers) 1,000 ml @ 100 mls/hr Q10H IV Last administered on 09/30/16at 19:35; Start 09/30/16 at 17:28; Stop 10/01/16 at 03 :27; Status DC Ondansetron HCl (Zofran) 4 mg 1X ONCE IV Last administered on 09/30/16at 17:44 ; Start 09/30/16 at 17:30; Stop 09/30/16 at 17:32; Status DC Fentanyl Citrate (Fentanyl 2ml Vial) 50 mcg 1X ONCE IV ; Start 09/30/16 at 19: 15; Stop 10/01/16 at 04:24; Status DC Ondansetron HCl (Zofran) 4 mg PRN Q8HRS PRN IV NAUSEA/VOMITING Last administered on 09/30/16at 22:07; Start 09/30/16 at 19:15; Stop 10/01/16 at 19 :14; Status DC Fentanyl Citrate 50 mcg 50 mcg PRN Q2HR PRN IV PAIN Last administered on at 16:54; Start 09/30/16 at 19:15; Stop 10/01/16 at 19:14; Status DC Sodium Chloride 1,000 ml @ 100 mls/hr Q10H IV ; Start 09/30/16 at 19:30; Stop 10/01/16 at 04:24; Status DC Potassium Chloride/Dextrose/ Sod Cl (KCl 20 Meq In D5W-1/2 NS) 1,000 ml @ 125 mls/hr Q8H IV Last administered on 10/04/16at 06:02; Start 09/30/16 at 20:00; Stop 10/04/16 at 10:21; Status DC Enoxaparin Sodium 40 mg 40 mg Q24H SQ Last administered on 10/10/16 08:45; Start 10/01/16 at 09:00 Levetiracetam/ Sodium Chloride (Keppra/Iv Sodium Chloride 0.9% 100ml) 105 ml @ 400 mls/hr Q12HR IV Last administered on 10/05/16 09:30; Start 09/30/16 at 21: 00; Stop 10/05/16 at 10:24; Status DC Morphine Sulfate 2 mg PRN Q4HRS PRN IV SEVERE PAIN Last administered on 10:13; Start 09/30/16 at 19:30; Stop 10/05/16 at 10:24; Status DC Acetaminophen (Tylenol) 650 mg PRN Q6HRS PRN LA MILD PAIN / TEMP; Start at 19:30; Stop 10/05/16 at 10:24; Status DC Ondansetron HCl (Zofran) 4 mg PRN Q6HRS PRN IV NAUSEA/VOMITING Last administered on 10/07/16 08:28; Start 09/30/16 at 19:30; Stop 10/09/16 at 12:08 ; Status DC Benzocaine (Hurricaine One) 1 spray STK-MED ONCE .ROUTE ; Start 09/30/16 at 19: 51; Stop 09/30/16 at 19:52; Status DC Morphine Sulfate 4 mg PRN Q4HRS PRN IV PAIN Last administered on 10/05/16 08:08 ; Start 10/01/16 at 20:00; Stop 10/05/16 at 10:24; Status DC Clonidine HCl 1 patch 1 patch WEEKLY TD Last administered on 10/03/16at 12:30; Start 10/03/16 at 10:00; Stop 10/05/16 at 10:24; Status DC Piperacillin Sod/ Tazobactam Sod/ Sodium Chloride (Zosyn/Iv Sodium Chloride 0.9 % 50ml) 50 ml @ 100 mls/hr Q6HRS IV Last administered on 10/09/16 06:26; Start 10/04/16 at 11:00; Stop 10/09/16 at 10:55; Status DC Vancomycin HCl 1 each 1 each PRN DAILY PRN MC SEE COMMENTS Last administered on 10/07/16 11:11; Start 10/04/16 at 10:15; Stop 10/07/16 at 11:28; Status DC Vancomycin HCl/ Sodium Chloride (Iv Sodium Chloride 0.9% 250ml) 250 ml @ 250 mls/hr Q24H IV ; Start 10/04/16 at 10:15; Status UNV Labetalol HCl (Normodyne) 20 mg PRN Q6HRS PRN IVP HYPERTENSION, SEE COMMENTS; Start 10/04/16 at 10:15; Stop 10/05/16 at 10:24; Status DC Hydralazine HCl 10 mg 10 mg PRN Q6HRS PRN IVP ELEVATED BP, SEE COMMENTS Last administered on 10/06/16 19:17; Start 10/04/16 at 10:15 Amino Acids/ Glycerin/ Electrolytes 1,000 ml @ 40 mls/hr Q24H IV Last administered on 10/06/16 09:59; Start 10/04/16 at 10:15; Stop 10/07/16 at 09:06 ; Status DC Vancomycin HCl 2 gm/Sodium Chloride 500 ml @ 250 mls/hr 1X ONCE IV Last administered on 10/04/16at 11:26; Start 10/04/16 at 10:45; Stop 10/04/16 at 12 :44; Status DC Vancomycin HCl/ Sodium Chloride (Iv Sodium Chloride 0.9% 500ml Bag) 500 ml @ 250 mls/hr Q24H IV Last administered on 10/06/16 11:47; Start 10/05/16 at 12:00 ; Stop 10/07/16 at 11:28; Status DC Vancomycin HCl 1 each 1X ONCE MC Last administered on 10/06/16 11:30; Start at 11:30; Stop 10/06/16 at 11:31; Status DC Aspirin (Children'S Aspirin) 81 mg [id number] PO Last administered on 10/10/16 08:41; Start 10/05/16 at 11:00 Gabapentin (Neurontin) 600 mg QID PO Last administered on 10/10/16 08:41; Start 10/05/16 at 13:00 Levetiracetam (Keppra) 250 mg BID PO Last administered on 10/10/16 08:40; Start 10/05/16 at 11:00 Levothyroxine Sodium (Synthroid) 100 mcg DAILY07 PO Last administered on 08:42; Start 10/05/16 at 10:30 Metoprolol Succinate (Toprol Xl) 25 mg DAILY PO Last administered on 10/10/16 08:42; Start 10/05/16 at 11:00 Pramipexole Dihydrochloride (miraPEX) 0.5 mg [id number] PO Last administered on 10/10 08:40; Start 10/05/16 at 11:00 Simvastatin (Zocor) 20 mg HS PO Last administered on 10/10/16 00:08; Start 10/05 at 21:00 Carbidopa/Levodopa (Sinemet Cr) 1 tab.sa TID PO Last administered on 10/10/16 08:42; Start 10/05/16 at 11:00 Tamsulosin HCl (Flomax) 0.4 mg QHS PO Last administered on 10/10/16 00:08; Start 10/05/16 at 21:00 Tramadol HCl (Ultram) 50 mg QID PO Last administered on 10/10/16 08:41; Start 10/05/16 at 13:00 Acetaminophen (Tylenol) 650 mg PRN Q4HRS PRN PO MILD PAIN / TEMP Last administered on 10/06/16 19:16; Start 10/05/16 at 10:15 Prednisone (Prednisone) 20 mg 1X ONCE PO Last administered on 10/06/16 11:01; Start 10/06/16 at 10:30; Stop 10/06/16 at 10:31; Status DC Prednisone (Prednisone) 10 mg DAILY08 PO Last administered on 10/10/16 08:41; Start 10/07/16 at 08:00 Al Hydroxide/Mg Hydroxide (Mylanta Plus Xs) 30 ml PRN Q4HRS PRN PO HEARTBURN / GAS Last administered on 10/07/16 17:42; Start 10/07/16 at 08:45 Pantoprazole Sodium (Protonix) 40 mg DAILYAC PO Last administered on 10/10/16 08:42; Start 10/07/16 at 10:00 Furosemide 40 mg 40 mg DAILY PO Last administered on 10/08/16 08:42; Start 10/07 at 10:00; Stop 10/08/16 at 08:56; Status DC Sodium Chloride (Iv Sodium Chloride 0.45%) 1,000 ml @ 60 mls/hr CONT PRN IV . ; Start 10/08/16 at 09:00; Stop 10/08/16 at 16:06; Status DC Bisacodyl 10 mg 10 mg 1X ONCE LA Last administered on 10/08/16 10:11; Start at 09:30; Stop 10/08/16 at 09:31; Status DC Sodium Chloride (Iv Sodium Chloride 0.45%) 1,000 ml @ 60 mls/hr [id number] IV Last administered on 10/09/16 02:52; Start 10/08/16 at 10:15; Stop 10/09/16 at 12: 00; Status DC Cefpodoxime Proxetil (Vantin) 200 mg BID PO ; Start 10/09/16 at 11:00; Stop at 12:08; Status DC Cefpodoxime Proxetil (Vantin) 100 mg BID PO Last administered on 10/10/16 08:41 ; Start 10/09/16 at 21:00 Active Scripts Active Hydrocodone-Apap 5-325 (Hydrocodone Bit/Acetaminophen) 1 Each Tablet 1 Tab PO PRN Q6HRS PRN Metoprolol Succinate ( Xl ) (Metoprolol Succinate) 25 Mg Tab.er.24h 25 Mg PO DAILY Reported Flomax (Tamsulosin Hcl) 0.4 Mg Cap.er.24h 1 Cap PO QHS Tramadol Hcl 100 Mg Tab.er.24h 100 Mg PO QID Levetiracetam 250 Mg Tablet 250 Mg PO BID Dulcolax (Bisacodyl) 10 Mg Supp.rect 10 Mg RC PRN DAILY PRN Maalox Advanced Suspension (Mag Hydrox/Al Hydrox/Simeth) 770 Ml Oral.susp 30 Ml PO Q2HR PRN Milk Of Magnesia (Magnesium Hydroxide) 400 Mg/5 Ml Oral.susp 30 Ml PO DAILY PRN Robitussin Cough-Chest Dm Liq (Guaifenesin/Dextromethorphan) 118 Ml Liquid 10 Ml PO Q4HRS PRN Trazodone Hcl 50 Mg Tablet 1 Tab PO QHS Tylenol (Acetaminophen) 325 Mg Tablet 650 Mg PO Q6HRS PRN Pramipexole Dihydrochloride (Pramipexole Di-Hcl) 0.5 Mg Tablet 0.5 Mg PO TID Simvastatin 20 Mg Tablet 1 Tab PO QHS Levothyroxine Sodium 100 Mcg Tablet 1 Tab PO DAILY Gabapentin 800 Mg Tablet 800 Mg PO QID Sinemet 25-100 Mg Tablet (Carbidopa/Levodopa) 1 Each Tablet 2 Tab PO TID Aspirin 81 Mg Tab.chew 1 Tab PO DAILY Vitals/I & O Vital Sign - Last 24 Hours 10/09/16 10/09/16 10/09/16 10/09/16 10:47 13:35 15:00 17:15 Temp 97.5 97.5 97.5 97.5 Pulse 81 81 Resp 16 12 B/P 116/52 116/52 Pulse Ox 90 90 O2 Delivery Room Air Nasal Cannula Room Air Nasal Cannula O2 Flow Rate 2.0 2.0 10/09/16 10/09/16 10/09/16 10/09/16 18:31 19:00 20:00 23:00 Temp 97.5 97.5 97.5 97.5 Pulse 84 82 Resp 20 20 B/P 142/59 155/60 Pulse Ox 96 90 O2 Delivery Nasal Cannula Room Air Nasal Cannula Room Air O2 Flow Rate 2.0 2.0 10/10/16 10/10/16 10/10/16 10/10/16 03:00 07:00 08:41 08:42 Temp 97.9 96.0 97.9 96.0 Pulse 79 81 81 Resp 18 20 B/P 133/59 104/45 104/45 Pulse Ox 93 95 O2 Delivery Room Air Nasal Cannula Nasal Cannula O2 Flow Rate 1.0 2.0 RICHARD [place] MD Oct 10, 2016 09:09
[2016-10-10 10:59] VITALS: BP 130/65
[2016-10-10 15:00] VITALS: BP 146/72
[2016-10-10 19:15] VITALS: BP 152/61
[2016-10-10 23:37] VITALS: BP 142/58
[2016-10-11 03:22] VITALS: BP 173/66
[2016-10-11] MEDS: LEVOTHYROXINE 100 MCG TABLET PO SCH (06:41)
[2016-10-11 07:00] VITALS: BP 135/53
[2016-10-11] MEDS: LEVETIRACETAM 250 MG TABLET. PO SCH ×2 (09:29→21:39)
[2016-10-11] MEDS: CEFPODOXIME PROXETIL 200 MG TABLET PO SCH ×2 (09:29→21:39)
[2016-10-11] MEDS: CARBIDOPA/LEVODOPA CR 50/200MG TABLET.SA PO SCH ×3 (09:30→21:40)
[2016-10-11] MEDS: ASPIRIN 81 MG TAB.CHEW PO SCH (09:30)
[2016-10-11] MEDS: PRAMIPEXOLE 0.25 MG TABLET. PO SCH ×3 (09:30→21:39)
[2016-10-11] MEDS: METOPROLOL SUCC 24HR ER 25 MG TAB.ER.24H. PO SCH (09:30)
[2016-10-11] MEDS: TRAMADOL 50 MG TABLET. PO SCH ×4 (09:31→21:40)
[2016-10-11] MEDS: PANTOPRAZOLE 40 MG TABLET. PO SCH (09:31)
[2016-10-11] MEDS: PREDNISONE 10 MG TABLET PO SCH (09:31)
[2016-10-11] MEDS: GABAPENTIN 300 MG CAPSULE. PO SCH ×4 (09:31→21:40)
[2016-10-11] MEDS: ENOXAPARIN 40 MG/0.4 ML DISP.SYRIN. SQ SCH (09:33)
--- NOTE | 2016-10-11 10:46 | PDOC ---
PROGRESS NOTES Subjective Subjective patient accepted at [facility] and still waiting for approval from [facility] insurance company. I have ordered welfare case worker to call the medical records auditor economics analyst at [facility] to have him dismissed to snf today. feels well and eating okay. denies vomiting or abdominal pain. had 2 BM. Objective Objective Vital Signs Date Time Temp Pulse Resp B/P Pulse Ox O2 Delivery O2 Flow Rate FiO2 10/11/16 10:32 Nasal Cannula 2.0 10/11/16 09:30 69 135/53 10/11/16 07:00 97.5 16 94 97.5 Intake and Output 10/11/16 07:00 Intake Total 1700 ml Balance 1700 ml Intake Oral 1700 ml # Voids 9 # Bowel Movements 1 Physical Exam Abdomen: Soft Heart: Regular rate, Normal S2 Extremities: Other (trace bipedal edema) General: Alert HEENT: Atraumatic Lungs: Clear to auscultation Neuro: Normal speech Psych/Mental Status: Mood NL Skin: No rashes Assessment Assessment Problems Medical Problems:Small-bowel obstruction resolved 2. Seizure disorder. 3. Parkinson's disease. 4. Hypothyroidism. 5. Peripheral neuropathy. 6. Hypertension. BP high 7. Chronic kidney disease stage III. klebsiella uti suspect gout. synovitis of left hand and wrist resolved peripheral edema improved critical illness myopathy (1) SBO (small bowel obstruction) Status: Acute Plan Plan of Care PT and OT await insurance approval to transfer to [facility] Comment Review of Relevant I have reviewed the following items [place] (where applicable) has been applied. Labs Microbiology 10/04/16 Blood Culture - Final, Complete NO GROWTH AFTER 5 DAYS 10/04/16 Urine Culture - Final, Complete 10/04/16 Urine Culture Result 1 (MANDEEP) - Final, Complete 10/04/16 Antimicrobic Susceptibility - Final, Complete Medications Current Medications Fentanyl Citrate 50 mcg 50 mcg PRN Q15MIN PRN IV PAIN GREATER THAN 3/10 Last administered on 09/30/16at 19:35; Start 09/30/16 at 17:30; Stop 10/01/16 at 04 :24; Status DC Lactated Ringer's (Iv Lactated Ringers) 1,000 ml @ 100 mls/hr Q10H IV Last administered on 09/30/16at 19:35; Start 09/30/16 at 17:28; Stop 10/01/16 at 03 :27; Status DC Ondansetron HCl (Zofran) 4 mg 1X ONCE IV Last administered on 09/30/16at 17:44 ; Start 09/30/16 at 17:30; Stop 09/30/16 at 17:32; Status DC Fentanyl Citrate (Fentanyl 2ml Vial) 50 mcg 1X ONCE IV ; Start 09/30/16 at 19: 15; Stop 10/01/16 at 04:24; Status DC Ondansetron HCl (Zofran) 4 mg PRN Q8HRS PRN IV NAUSEA/VOMITING Last administered on 09/30/16at 22:07; Start 09/30/16 at 19:15; Stop 10/01/16 at 19 :14; Status DC Fentanyl Citrate 50 mcg 50 mcg PRN Q2HR PRN IV PAIN Last administered on at 16:54; Start 09/30/16 at 19:15; Stop 10/01/16 at 19:14; Status DC Sodium Chloride 1,000 ml @ 100 mls/hr Q10H IV ; Start 09/30/16 at 19:30; Stop 10/01/16 at 04:24; Status DC Potassium Chloride/Dextrose/ Sod Cl (KCl 20 Meq In D5W-1/2 NS) 1,000 ml @ 125 mls/hr Q8H IV Last administered on 10/04/16at 06:02; Start 09/30/16 at 20:00; Stop 10/04/16 at 10:21; Status DC Enoxaparin Sodium 40 mg 40 mg Q24H SQ Last administered on 10/11/16 09:33; Start 10/01/16 at 09:00 Levetiracetam/ Sodium Chloride (Keppra/Iv Sodium Chloride 0.9% 100ml) 105 ml @ 400 mls/hr Q12HR IV Last administered on 10/05/16 09:30; Start 09/30/16 at 21: 00; Stop 10/05/16 at 10:24; Status DC Morphine Sulfate 2 mg PRN Q4HRS PRN IV SEVERE PAIN Last administered on 10:13; Start 09/30/16 at 19:30; Stop 10/05/16 at 10:24; Status DC Acetaminophen (Tylenol) 650 mg PRN Q6HRS PRN AL MILD PAIN / TEMP; Start at 19:30; Stop 10/05/16 at 10:24; Status DC Ondansetron HCl (Zofran) 4 mg PRN Q6HRS PRN IV NAUSEA/VOMITING Last administered on 10/07/16 08:28; Start 09/30/16 at 19:30; Stop 10/09/16 at 12:08 ; Status DC Benzocaine (Hurricaine One) 1 spray STK-MED ONCE .ROUTE ; Start 09/30/16 at 19: 51; Stop 09/30/16 at 19:52; Status DC Morphine Sulfate 4 mg PRN Q4HRS PRN IV PAIN Last administered on 10/05/16 08:08 ; Start 10/01/16 at 20:00; Stop 10/05/16 at 10:24; Status DC Clonidine HCl 1 patch 1 patch WEEKLY TD Last administered on 10/03/16at 12:30; Start 10/03/16 at 10:00; Stop 10/05/16 at 10:24; Status DC Piperacillin Sod/ Tazobactam Sod/ Sodium Chloride (Zosyn/Iv Sodium Chloride 0.9 % 50ml) 50 ml @ 100 mls/hr Q6HRS IV Last administered on 10/09/16 06:26; Start 10/04/16 at 11:00; Stop 10/09/16 at 10:55; Status DC Vancomycin HCl 1 each 1 each PRN DAILY PRN MC SEE COMMENTS Last administered on 10/07/16 11:11; Start 10/04/16 at 10:15; Stop 10/07/16 at 11:28; Status DC Vancomycin HCl/ Sodium Chloride (Iv Sodium Chloride 0.9% 250ml) 250 ml @ 250 mls/hr Q24H IV ; Start 10/04/16 at 10:15; Status UNV Labetalol HCl (Normodyne) 20 mg PRN Q6HRS PRN IVP HYPERTENSION, SEE COMMENTS; Start 10/04/16 at 10:15; Stop 10/05/16 at 10:24; Status DC Hydralazine HCl 10 mg 10 mg PRN Q6HRS PRN IVP ELEVATED BP, SEE COMMENTS Last administered on 10/06/16 19:17; Start 10/04/16 at 10:15 Amino Acids/ Glycerin/ Electrolytes 1,000 ml @ 40 mls/hr Q24H IV Last administered on 10/06/16 09:59; Start 10/04/16 at 10:15; Stop 10/07/16 at 09:06 ; Status DC Vancomycin HCl 2 gm/Sodium Chloride 500 ml @ 250 mls/hr 1X ONCE IV Last administered on 10/04/16at 11:26; Start 10/04/16 at 10:45; Stop 10/04/16 at 12 :44; Status DC Vancomycin HCl/ Sodium Chloride (Iv Sodium Chloride 0.9% 500ml Bag) 500 ml @ 250 mls/hr Q24H IV Last administered on 10/06/16 11:47; Start 10/05/16 at 12:00 ; Stop 10/07/16 at 11:28; Status DC Vancomycin HCl 1 each 1X ONCE MC Last administered on 10/06/16 11:30; Start at 11:30; Stop 10/06/16 at 11:31; Status DC Aspirin (Children'S Aspirin) 81 mg DAILYWBKFT PO Last administered on 10/11/16 09:30; Start 10/05/16 at 11:00 Gabapentin (Neurontin) 600 mg QID PO Last administered on 10/11/16 09:31; Start 10/05/16 at 13:00 Levetiracetam (Keppra) 250 mg BID PO Last administered on 10/11/16 09:29; Start 10/05/16 at 11:00 Levothyroxine Sodium (Synthroid) 100 mcg DAILY07 PO Last administered on 06:41; Start 10/05/16 at 10:30 Metoprolol Succinate (Toprol Xl) 25 mg DAILY PO Last administered on 10/11/16 09:30; Start 10/05/16 at 11:00 Pramipexole Dihydrochloride (miraPEX) 0.5 mg [id number] PO Last administered on 10/11 09:30; Start 10/05/16 at 11:00 Simvastatin (Zocor) 20 mg HS PO Last administered on 10/10/16 21:13; Start 10/05 at 21:00 Carbidopa/Levodopa (Sinemet Cr) 1 tab.sa TID PO Last administered on 10/11/16 09:30; Start 10/05/16 at 11:00 Tamsulosin HCl (Flomax) 0.4 mg QHS PO Last administered on 10/10/16 21:12; Start 10/05/16 at 21:00 Tramadol HCl (Ultram) 50 mg QID PO Last administered on 10/11/16 09:31; Start 10/05/16 at 13:00 Acetaminophen (Tylenol) 650 mg PRN Q4HRS PRN PO MILD PAIN / TEMP Last administered on 10/06/16 19:16; Start 10/05/16 at 10:15 Prednisone (Prednisone) 20 mg 1X ONCE PO Last administered on 10/06/16 11:01; Start 10/06/16 at 10:30; Stop 10/06/16 at 10:31; Status DC Prednisone (Prednisone) 10 mg DAILY08 PO Last administered on 10/11/16 09:31; Start 10/07/16 at 08:00 Al Hydroxide/Mg Hydroxide (Mylanta Plus Xs) 30 ml PRN Q4HRS PRN PO HEARTBURN / GAS Last administered on 10/07/16 17:42; Start 10/07/16 at 08:45 Pantoprazole Sodium (Protonix) 40 mg DAILYAC PO Last administered on 10/11/16 09:31; Start 10/07/16 at 10:00 Furosemide 40 mg 40 mg DAILY PO Last administered on 10/08/16 08:42; Start 10/07 at 10:00; Stop 10/08/16 at 08:56; Status DC Sodium Chloride (Iv Sodium Chloride 0.45%) 1,000 ml @ 60 mls/hr CONT PRN IV . ; Start 10/08/16 at 09:00; Stop 10/08/16 at 16:06; Status DC Bisacodyl 10 mg 10 mg 1X ONCE AL Last administered on 10/08/16 10:11; Start at 09:30; Stop 10/08/16 at 09:31; Status DC Sodium Chloride (Iv Sodium Chloride 0.45%) 1,000 ml @ 60 mls/hr [id number] IV Last administered on 10/09/16 02:52; Start 10/08/16 at 10:15; Stop 10/09/16 at 12: 00; Status DC Cefpodoxime Proxetil (Vantin) 200 mg BID PO ; Start 10/09/16 at 11:00; Stop at 12:08; Status DC Cefpodoxime Proxetil (Vantin) 100 mg BID PO Last administered on 10/11/16t 09:29 ; Start 10/09/16 at 21:00 Active Scripts Active Hydrocodone-Apap 5-325 (Hydrocodone Bit/Acetaminophen) 1 Each Tablet 1 Tab PO PRN Q6HRS PRN Metoprolol Succinate ( Xl ) (Metoprolol Succinate) 25 Mg Tab.er.24h 25 Mg PO DAILY Reported Flomax (Tamsulosin Hcl) 0.4 Mg Cap.er.24h 1 Cap PO QHS Tramadol Hcl 100 Mg Tab.er.24h 100 Mg PO QID Levetiracetam 250 Mg Tablet 250 Mg PO BID Dulcolax (Bisacodyl) 10 Mg Supp.rect 10 Mg RC PRN DAILY PRN Maalox Advanced Suspension (Mag Hydrox/Al Hydrox/Simeth) 770 Ml Oral.susp 30 Ml PO Q2HR PRN Milk Of Magnesia (Magnesium Hydroxide) 400 Mg/5 Ml Oral.susp 30 Ml PO DAILY PRN Robitussin Cough-Chest Dm Liq (Guaifenesin/Dextromethorphan) 118 Ml Liquid 10 Ml PO Q4HRS PRN Trazodone Hcl 50 Mg Tablet 1 Tab PO QHS Tylenol (Acetaminophen) 325 Mg Tablet 650 Mg PO Q6HRS PRN Pramipexole Dihydrochloride (Pramipexole Di-Hcl) 0.5 Mg Tablet 0.5 Mg PO TID Simvastatin 20 Mg Tablet 1 Tab PO QHS Levothyroxine Sodium 100 Mcg Tablet 1 Tab PO DAILY Gabapentin 800 Mg Tablet 800 Mg PO QID Sinemet 25-100 Mg Tablet (Carbidopa/Levodopa) 1 Each Tablet 2 Tab PO TID Aspirin 81 Mg Tab.chew 1 Tab PO DAILY Vitals/I & O Vital Sign - Last 24 Hours 10/10/16 10/10/16 10/10/16 10/10/16 10:59 13:08 15:00 17:29 Temp 97.7 97.7 97.7 97.7 Pulse 74 80 Resp 16 20 B/P 130/65 146/72 Pulse Ox 97 97 O2 Delivery Nasal Cannula Nasal Cannula Room Air Nasal Cannula O2 Flow Rate 1.0 2.0 2.0 10/10/16 10/10/16 10/10/16 10/11/16 19:15 20:20 23:37 03:22 Temp 98.0 98.1 97.9 98.0 98.1 97.9 Pulse 78 81 75 Resp 18 18 18 B/P 152/61 142/58 173/66 Pulse Ox 95 93 94 O2 Delivery Nasal Cannula Nasal Cannula Nasal Cannula Room Air O2 Flow Rate 1.0 2.0 1.0 1.0 10/11/16 10/11/16 10/11/16 10/11/16 07:00 09:30 09:31 10:32 Temp 97.5 97.5 Pulse 69 69 Resp 16 B/P 135/53 135/53 Pulse Ox 94 O2 Delivery Room Air Nasal Cannula Nasal Cannula O2 Flow Rate 1.0 2.0 2.0 Intake and Output 10/10/16 10/10/16 10/11/16 15:00 23:00 07:00 Intake Total 720 ml 480 ml 500 ml Balance 720 ml 480 ml 500 ml RICHARD NJ MD Oct 11, 2016 10:46
[2016-10-11 11:00] VITALS: BP 130/54
[2016-10-11 14:37] VITALS: BP 134/56
[2016-10-11 19:48] VITALS: BP 125/56
[2016-10-11] MEDS: SIMVASTATIN 20 MG TABLET PO SCH (21:00)
[2016-10-11] MEDS: TAMSULOSIN 0.4 MG CAP.ER.24H. PO SCH (21:40)
[2016-10-11 22:30] VITALS: BP 115/58
[2016-10-12 03:08] VITALS: BP 126/58
[2016-10-12] MEDS: LEVOTHYROXINE 100 MCG TABLET PO SCH (05:59)
[2016-10-12] MEDS: PANTOPRAZOLE 40 MG TABLET. PO SCH (05:59)
[2016-10-12 06:23] LABS: BASO % 0 % (0-3); EOS % 2 % (0-3); HEMATOCRIT 28.1 % (39.0-53.0); HEMOGLOBIN 9.3 g/dL (13.0-17.5); LYMPH # 2.1 x10^3/uL (1.0-4.8); LYMPH % 29 % (24-48); MEAN CORPUSCULAR HEMOGLOBIN 33 pg (25-35); MEAN CORPUSCULAR HGB CONC 33 g/dL (31-37); MEAN CORPUSCULAR VOLUME 99 fL (79-100); MONO % 5 % (0-9); NEUT % 64 % (31-73); PLATELET COUNT 306 x10^3/uL (140-400); RED BLOOD COUNT 2.82 x10^6/uL (4.30-5.70); RED CELL DISTRIBUTION WIDTH 15.3 % (11.5-14.5); WHITE BLOOD COUNT 7.2 x10^3/uL (4.0-11.0)
[2016-10-12 06:31] LABS: CALCIUM 8.6 mg/dL (8.5-10.1); CREATININE 1.4 mg/dL (0.7-1.3); GFR 48.2; POTASSIUM 4.7 mmol/L (3.5-5.1)
[2016-10-12 07:00] VITALS: BP 128/64
[2016-10-12] MEDS: LEVETIRACETAM 250 MG TABLET. PO SCH ×2 (08:02→21:07)
[2016-10-12] MEDS: CARBIDOPA/LEVODOPA CR 50/200MG TABLET.SA PO SCH ×3 (08:02→21:07)
[2016-10-12] MEDS: PREDNISONE 10 MG TABLET PO SCH (08:03)
[2016-10-12] MEDS: TRAMADOL 50 MG TABLET. PO SCH ×4 (08:03→21:07)
[2016-10-12] MEDS: CEFPODOXIME PROXETIL 200 MG TABLET PO SCH ×2 (08:04→21:06)
[2016-10-12] MEDS: ENOXAPARIN 40 MG/0.4 ML DISP.SYRIN. SQ SCH (08:04)
[2016-10-12] MEDS: ASPIRIN 81 MG TAB.CHEW PO SCH (08:04)
[2016-10-12] MEDS: PRAMIPEXOLE 0.25 MG TABLET. PO SCH ×3 (08:04→21:07)
[2016-10-12] MEDS: GABAPENTIN 300 MG CAPSULE. PO SCH ×4 (08:06→21:06)
[2016-10-12] MEDS: METOPROLOL SUCC 24HR ER 25 MG TAB.ER.24H. PO SCH (08:06)
--- NOTE | 2016-10-12 10:40 | PDOC ---
PROGRESS NOTES Subjective Subjective eating well and denies nausea and vomiting. had a BM. [facility] would not take patient yesterday because [facility] insurance would not approve transfer to snf without reviewing medical records. [facility] says that patient could go to SNF without prior approval but SNF would not accept patient without prior approval. Objective Objective Vital Signs Date Time Temp Pulse Resp B/P Pulse Ox O2 Delivery O2 Flow Rate FiO2 10/12/16 08:06 68 128/64 10/12/16 08:00 Nasal Cannula 2.0 10/12/16 07:00 97.9 20 94 97.9 Intake and Output 10/12/16 07:00 Intake Total 1790 ml Balance 1790 ml Intake Oral 1790 ml # Voids 6 # Bowel Movements 1 Physical Exam Abdomen: Soft, No tenderness Heart: Regular rate, Normal S1, Normal S2 Extremities: Other (trace bipedal edema) General: Alert HEENT: Atraumatic Lungs: Clear to auscultation Neuro: Normal speech Psych/Mental Status: Mental status NL Skin: No rashes Assessment Assessment Problems Medical Problems:Small-bowel obstruction resolved 2. Seizure disorder. 3. Parkinson's disease. 4. Hypothyroidism. 5. Peripheral neuropathy. 6. Hypertension. BP high 7. Chronic kidney disease stage III. klebsiella uti suspect gout. synovitis of left hand and wrist resolved peripheral edema improved critical illness myopathy (1) SBO (small bowel obstruction) Status: Acute Plan Plan of Care PT and OT transfer to SNF when [facility] approves transfer to SNF Comment Review of Relevant I have reviewed the following items [place] (where applicable) has been applied. Labs Laboratory Tests Test 10/12/16 06:10 White Blood Count 7.2x10^3/uL (4.0-11.0) Red Blood Count 2.82x10^6/uL (4.30-5.70) Hemoglobin 9.3g/dL (13.0-17.5) Hematocrit 28.1% (39.0-53.0) Mean Corpuscular Volume 99fL (79-100) Mean Corpuscular Hemoglobin 33pg (25-35) Mean Corpuscular Hemoglobin Concent 33g/dL (31-37) Red Cell Distribution Width 15.3% (11.5-14.5) Platelet Count 306x10^3/uL (140-400) Neutrophils (%) (Auto) 64% (31-73) Lymphocytes (%) (Auto) 29% (24-48) Monocytes (%) (Auto) 5% (0-9) Eosinophils (%) (Auto) 2% (0-3) Basophils (%) (Auto) 0% (0-3) Neutrophils # (Auto) 4.6x10^3uL (1.8-7.7) Lymphocytes # (Auto) 2.1x10^3/uL (1.0-4.8) Monocytes # (Auto) 0.4x10^3/uL (0.0-1.1) Eosinophils # (Auto) 0.1x10^3/uL (0.0-0.7) Basophils # (Auto) 0.0x10^3/uL (0.0-0.2) Sodium Level 139mmol/L (136-145) Potassium Level 4.7mmol/L (3.5-5.1) Chloride Level 103mmol/L (98-107) Carbon Dioxide Level 33mmol/L (21-32) Anion Gap 3 (6-14) Blood Urea Nitrogen 34mg/dL (8-26) Creatinine 1.4mg/dL (0.7-1.3) Estimated GFR (Cockcroft-Gault) 48.2 Glucose Level 133mg/dL (70-99) Calcium Level 8.6mg/dL (8.5-10.1) Laboratory Tests Test 10/12/16 06:10 White Blood Count 7.2x10^3/uL (4.0-11.0) Red Blood Count 2.82x10^6/uL (4.30-5.70) Hemoglobin 9.3g/dL (13.0-17.5) Hematocrit 28.1% (39.0-53.0) Mean Corpuscular Volume 99fL (79-100) Mean Corpuscular Hemoglobin 33pg (25-35) Mean Corpuscular Hemoglobin Concent 33g/dL (31-37) Red Cell Distribution Width 15.3% (11.5-14.5) Platelet Count 306x10^3/uL (140-400) Neutrophils (%) (Auto) 64% (31-73) Lymphocytes (%) (Auto) 29% (24-48) Monocytes (%) (Auto) 5% (0-9) Eosinophils (%) (Auto) 2% (0-3) Basophils (%) (Auto) 0% (0-3) Neutrophils # (Auto) 4.6x10^3uL (1.8-7.7) Lymphocytes # (Auto) 2.1x10^3/uL (1.0-4.8) Monocytes # (Auto) 0.4x10^3/uL (0.0-1.1) Eosinophils # (Auto) 0.1x10^3/uL (0.0-0.7) Basophils # (Auto) 0.0x10^3/uL (0.0-0.2) Sodium Level 139mmol/L (136-145) Potassium Level 4.7mmol/L (3.5-5.1) Chloride Level 103mmol/L (98-107) Carbon Dioxide Level 33mmol/L (21-32) Anion Gap 3 (6-14) Blood Urea Nitrogen 34mg/dL (8-26) Creatinine 1.4mg/dL (0.7-1.3) Estimated GFR (Cockcroft-Gault) 48.2 Glucose Level 133mg/dL (70-99) Calcium Level 8.6mg/dL (8.5-10.1) Microbiology 10/04/16 Blood Culture - Final, Complete NO GROWTH AFTER 5 DAYS 10/04/16 Urine Culture - Final, Complete 10/04/16 Urine Culture Result 1 (MANDEEP) - Final, Complete 10/04/16 Antimicrobic Susceptibility - Final, Complete Medications Current Medications Fentanyl Citrate 50 mcg 50 mcg PRN Q15MIN PRN IV PAIN GREATER THAN 3/10 Last administered on 09/30/16at 19:35; Start 09/30/16 at 17:30; Stop 10/01/16 at 04 :24; Status DC Lactated Ringer's (Iv Lactated Ringers) 1,000 ml @ 100 mls/hr Q10H IV Last administered on 09/30/16at 19:35; Start 09/30/16 at 17:28; Stop 10/01/16 at 03 :27; Status DC Ondansetron HCl (Zofran) 4 mg 1X ONCE IV Last administered on 09/30/16at 17:44 ; Start 09/30/16 at 17:30; Stop 09/30/16 at 17:32; Status DC Fentanyl Citrate (Fentanyl 2ml Vial) 50 mcg 1X ONCE IV ; Start 09/30/16 at 19: 15; Stop 10/01/16 at 04:24; Status DC Ondansetron HCl (Zofran) 4 mg PRN Q8HRS PRN IV NAUSEA/VOMITING Last administered on 09/30/16at 22:07; Start 09/30/16 at 19:15; Stop 10/01/16 at 19 :14; Status DC Fentanyl Citrate 50 mcg 50 mcg PRN Q2HR PRN IV PAIN Last administered on at 16:54; Start 09/30/16 at 19:15; Stop 10/01/16 at 19:14; Status DC Sodium Chloride 1,000 ml @ 100 mls/hr Q10H IV ; Start 09/30/16 at 19:30; Stop 10/01/16 at 04:24; Status DC Potassium Chloride/Dextrose/ Sod Cl (KCl 20 Meq In D5W-1/2 NS) 1,000 ml @ 125 mls/hr Q8H IV Last administered on 10/04/16at 06:02; Start 09/30/16 at 20:00; Stop 10/04/16 at 10:21; Status DC Enoxaparin Sodium 40 mg 40 mg Q24H SQ Last administered on 10/12/16 08:04; Start 10/01/16 at 09:00 Levetiracetam/ Sodium Chloride (Keppra/Iv Sodium Chloride 0.9% 100ml) 105 ml @ 400 mls/hr Q12HR IV Last administered on 10/05/16 09:30; Start 09/30/16 at 21: 00; Stop 10/05/16 at 10:24; Status DC Morphine Sulfate 2 mg PRN Q4HRS PRN IV SEVERE PAIN Last administered on 10:13; Start 09/30/16 at 19:30; Stop 10/05/16 at 10:24; Status DC Acetaminophen (Tylenol) 650 mg PRN Q6HRS PRN ID MILD PAIN / TEMP; Start at 19:30; Stop 10/05/16 at 10:24; Status DC Ondansetron HCl (Zofran) 4 mg PRN Q6HRS PRN IV NAUSEA/VOMITING Last administered on 10/07/16 08:28; Start 09/30/16 at 19:30; Stop 10/09/16 at 12:08 ; Status DC Benzocaine (Hurricaine One) 1 spray STK-MED ONCE .ROUTE ; Start 09/30/16 at 19: 51; Stop 09/30/16 at 19:52; Status DC Morphine Sulfate 4 mg PRN Q4HRS PRN IV PAIN Last administered on 10/05/16 08:08 ; Start 10/01/16 at 20:00; Stop 10/05/16 at 10:24; Status DC Clonidine HCl 1 patch 1 patch WEEKLY TD Last administered on 10/03/16at 12:30; Start 10/03/16 at 10:00; Stop 10/05/16 at 10:24; Status DC Piperacillin Sod/ Tazobactam Sod/ Sodium Chloride (Zosyn/Iv Sodium Chloride 0.9 % 50ml) 50 ml @ 100 mls/hr Q6HRS IV Last administered on 10/09/16 06:26; Start 10/04/16 at 11:00; Stop 10/09/16 at 10:55; Status DC Vancomycin HCl 1 each 1 each PRN DAILY PRN MC SEE COMMENTS Last administered on 10/07/16 11:11; Start 10/04/16 at 10:15; Stop 10/07/16 at 11:28; Status DC Vancomycin HCl/ Sodium Chloride (Iv Sodium Chloride 0.9% 250ml) 250 ml @ 250 mls/hr Q24H IV ; Start 10/04/16 at 10:15; Status UNV Labetalol HCl (Normodyne) 20 mg PRN Q6HRS PRN IVP HYPERTENSION, SEE COMMENTS; Start 10/04/16 at 10:15; Stop 10/05/16 at 10:24; Status DC Hydralazine HCl 10 mg 10 mg PRN Q6HRS PRN IVP ELEVATED BP, SEE COMMENTS Last administered on 10/06/16 19:17; Start 10/04/16 at 10:15 Amino Acids/ Glycerin/ Electrolytes 1,000 ml @ 40 mls/hr Q24H IV Last administered on 10/06/16 09:59; Start 10/04/16 at 10:15; Stop 10/07/16 at 09:06 ; Status DC Vancomycin HCl 2 gm/Sodium Chloride 500 ml @ 250 mls/hr 1X ONCE IV Last administered on 10/04/16at 11:26; Start 10/04/16 at 10:45; Stop 10/04/16 at 12 :44; Status DC Vancomycin HCl/ Sodium Chloride (Iv Sodium Chloride 0.9% 500ml Bag) 500 ml @ 250 mls/hr Q24H IV Last administered on 10/06/16 11:47; Start 10/05/16 at 12:00 ; Stop 10/07/16 at 11:28; Status DC Vancomycin HCl 1 each 1X ONCE MC Last administered on 10/06/16 11:30; Start at 11:30; Stop 10/06/16 at 11:31; Status DC Aspirin (Children'S Aspirin) 81 mg [id number] PO Last administered on 10/12/16 08:04; Start 10/05/16 at 11:00 Gabapentin (Neurontin) 600 mg QID PO Last administered on 10/12/16 08:06; Start 10/05/16 at 13:00 Levetiracetam (Keppra) 250 mg BID PO Last administered on 10/12/16 08:02; Start 10/05/16 at 11:00 Levothyroxine Sodium (Synthroid) 100 mcg DAILY07 PO Last administered on 05:59; Start 10/05/16 at 10:30 Metoprolol Succinate (Toprol Xl) 25 mg DAILY PO Last administered on 10/12/16 08:06; Start 10/05/16 at 11:00 Pramipexole Dihydrochloride (miraPEX) 0.5 mg HHE330 PO Last administered on 10/12 08:04; Start 10/05/16 at 11:00 Simvastatin (Zocor) 20 mg HS PO Last administered on 10/11/16 21:00; Start 10/05 at 21:00 Carbidopa/Levodopa (Sinemet Cr) 1 tab.sa TID PO Last administered on 10/12/16 08:02; Start 10/05/16 at 11:00 Tamsulosin HCl (Flomax) 0.4 mg QHS PO Last administered on 10/11/16 21:40; Start 10/05/16 at 21:00 Tramadol HCl (Ultram) 50 mg QID PO Last administered on 10/12/16 08:03; Start 10/05/16 at 13:00 Acetaminophen (Tylenol) 650 mg PRN Q4HRS PRN PO MILD PAIN / TEMP Last administered on 10/06/16 19:16; Start 10/05/16 at 10:15 Prednisone (Prednisone) 20 mg 1X ONCE PO Last administered on 10/06/16 11:01; Start 10/06/16 at 10:30; Stop 10/06/16 at 10:31; Status DC Prednisone (Prednisone) 10 mg DAILY08 PO Last administered on 10/12/16 08:03; Start 10/07/16 at 08:00 Al Hydroxide/Mg Hydroxide (Mylanta Plus Xs) 30 ml PRN Q4HRS PRN PO HEARTBURN / GAS Last administered on 10/07/16 17:42; Start 10/07/16 at 08:45 Pantoprazole Sodium (Protonix) 40 mg DAILYAC PO Last administered on 10/12/16 05:59; Start 10/07/16 at 10:00 Furosemide 40 mg 40 mg DAILY PO Last administered on 10/08/16 08:42; Start 10/07 at 10:00; Stop 10/08/16 at 08:56; Status DC Sodium Chloride (Iv Sodium Chloride 0.45%) 1,000 ml @ 60 mls/hr CONT PRN IV . ; Start 10/08/16 at 09:00; Stop 10/08/16 at 16:06; Status DC Bisacodyl 10 mg 10 mg 1X ONCE ID Last administered on 10/08/16 10:11; Start at 09:30; Stop 10/08/16 at 09:31; Status DC Sodium Chloride (Iv Sodium Chloride 0.45%) 1,000 ml @ 60 mls/hr [id number] IV Last administered on 10/09/16 02:52; Start 10/08/16 at 10:15; Stop 10/09/16 at 12: 00; Status DC Cefpodoxime Proxetil (Vantin) 200 mg BID PO ; Start 10/09/16 at 11:00; Stop at 12:08; Status DC Cefpodoxime Proxetil (Vantin) 100 mg BID PO Last administered on 10/12/16t 08:04 ; Start 10/09/16 at 21:00 Active Scripts Active Hydrocodone-Apap 5-325 (Hydrocodone Bit/Acetaminophen) 1 Each Tablet 1 Tab PO PRN Q6HRS PRN Metoprolol Succinate ( Xl ) (Metoprolol Succinate) 25 Mg Tab.er.24h 25 Mg PO DAILY Reported Flomax (Tamsulosin Hcl) 0.4 Mg Cap.er.24h 1 Cap PO QHS Tramadol Hcl 100 Mg Tab.er.24h 100 Mg PO QID Levetiracetam 250 Mg Tablet 250 Mg PO BID Dulcolax (Bisacodyl) 10 Mg Supp.rect 10 Mg RC PRN DAILY PRN Maalox Advanced Suspension (Mag Hydrox/Al Hydrox/Simeth) 770 Ml Oral.susp 30 Ml PO Q2HR PRN Milk Of Magnesia (Magnesium Hydroxide) 400 Mg/5 Ml Oral.susp 30 Ml PO DAILY PRN Robitussin Cough-Chest Dm Liq (Guaifenesin/Dextromethorphan) 118 Ml Liquid 10 Ml PO Q4HRS PRN Trazodone Hcl 50 Mg Tablet 1 Tab PO QHS Tylenol (Acetaminophen) 325 Mg Tablet 650 Mg PO Q6HRS PRN Pramipexole Dihydrochloride (Pramipexole Di-Hcl) 0.5 Mg Tablet 0.5 Mg PO TID Simvastatin 20 Mg Tablet 1 Tab PO QHS Levothyroxine Sodium 100 Mcg Tablet 1 Tab PO DAILY Gabapentin 800 Mg Tablet 800 Mg PO QID Sinemet 25-100 Mg Tablet (Carbidopa/Levodopa) 1 Each Tablet 2 Tab PO TID Aspirin 81 Mg Tab.chew 1 Tab PO DAILY Vitals/I & O Vital Sign - Last 24 Hours 10/11/16 10/11/16 10/11/16 10/11/16 11:00 14:37 17:50 18:51 Temp 97.8 97.9 97.8 97.9 Pulse 71 69 Resp 18 18 B/P 130/54 134/56 Pulse Ox 94 94 O2 Delivery Room Air Room Air Nasal Cannula Nasal Cannula O2 Flow Rate 1.0 1.0 2.0 2.0 10/11/16 10/11/16 10/11/16 10/12/16 19:48 20:00 22:30 03:08 Temp 98.3 97.9 97.7 98.3 97.9 97.7 Pulse 63 62 67 Resp 18 20 18 B/P 125/56 115/58 126/58 Pulse Ox 94 93 100 O2 Delivery Nasal Cannula Nasal Cannula Nasal Cannula Nasal Cannula O2 Flow Rate 1.0 2.0 2.0 1.0 10/12/16 10/12/16 10/12/16 07:00 08:00 08:06 Temp 97.9 97.9 Pulse 68 68 Resp 20 B/P 128/64 128/64 Pulse Ox 94 O2 Delivery Nasal Cannula Nasal Cannula O2 Flow Rate 1.0 2.0 Intake and Output 10/11/16 10/11/16 10/12/16 15:00 23:00 07:00 Intake Total 650 ml 640 ml 500 ml Balance 650 ml 640 ml 500 ml RICHARD [place] MD Oct 12, 2016 10:40
[2016-10-12 11:00] VITALS: BP 125/53
[2016-10-12 15:00] VITALS: BP 132/54
[2016-10-12 19:00] VITALS: BP 136/64
[2016-10-12] MEDS: SIMVASTATIN 20 MG TABLET PO SCH (21:07)
[2016-10-12] MEDS: MAG HYDROX/AL HYDROX/SIMETH 30 ML ORAL.SUSP PO PRN (21:07)
[2016-10-12] MEDS: TAMSULOSIN 0.4 MG CAP.ER.24H. PO SCH (21:07)
[2016-10-12 23:13] VITALS: BP 144/58
[2016-10-13] VITALS (11 sets, daily range): BP systolic 107–129; BP diastolic 53–77
[2016-10-13] MEDS: ACETAMINOPHEN 325 MG TABLET. PO PRN (00:17)
[2016-10-13] MEDS ORDERED: ONDANSETRON PF 4 MG/2 ML VIAL. ONE ×2 (01:19→14:25)
--- NOTE | 2016-10-13 02:46 | RAD ---
PROCEDURE Acute abdominal series HISTORY 86-year-old male with nausea and vomiting, left upper gastric pain. TECHNIQUE Frontal view of the chest and upright and supine frontal views of the abdomen are obtained. COMPARISON October 07, 2016. FINDINGS There is re- demonstration of bibasilar opacification, left greater than right, and blunting of the left costophrenic angle. No pneumothorax is seen. Cardiomediastinal silhouette appears stable in size. Visualized osseous structures and overlying soft tissues of the thorax demonstrate no acute interval change. No intra-abdominal free air or air-fluid levels are seen on the upright view. Gaseous distended small and large bowel loops are seen, with mild increased distention when compared to the previous exam. Some of the small bowel loops are dilated, without air-fluid levels seen on the upright view. Postsurgical changes re- demonstrated over the lower lumbar spine, pelvis and IVC filter placement. Electronic device overlies the left abdomen with leads overlying the thoracolumbar spine. IMPRESSION 1. Similar-appearing bibasilar opacities may represent infiltrate, with possible small left pleural effusion. 2. Slight increased gaseous distention of small and some large bowel loops, without air-fluid levels to suggest obstruction on the upright view. Findings may represent ileus. Electronically signed by: Rachel Hidalgo (Oct 13, 2016 02:45:37)
[2016-10-13] MEDS: LEVOTHYROXINE 100 MCG TABLET PO SCH (05:08)
[2016-10-13] MEDS: PANTOPRAZOLE 40 MG TABLET. PO SCH (05:08)
[2016-10-13 07:38] LABS: BASO % 0 % (0-3); EOS % 0 % (0-3); HEMATOCRIT 34.9 % (39.0-53.0); HEMOGLOBIN 11.1 g/dL (13.0-17.5); LYMPH # 0.8 x10^3/uL (1.0-4.8); LYMPH % 5 % (24-48); MEAN CORPUSCULAR HEMOGLOBIN 32 pg (25-35); MEAN CORPUSCULAR HGB CONC 32 g/dL (31-37); MEAN CORPUSCULAR VOLUME 101 fL (79-100); MONO % 3 % (0-9); NEUT % 92 % (31-73); PLATELET COUNT 338 x10^3/uL (140-400); RED BLOOD COUNT 3.45 x10^6/uL (4.30-5.70); RED CELL DISTRIBUTION WIDTH 15.2 % (11.5-14.5); WHITE BLOOD COUNT 17.5 x10^3/uL (4.0-11.0)
[2016-10-13 07:50] LABS: CALCIUM 8.9 mg/dL (8.5-10.1); CREATININE 1.6 mg/dL (0.7-1.3); GFR 41.3
[2016-10-13 07:53] LABS: AMYLASE 134 U/L (25-115)
[2016-10-13 07:58] LABS: ALBUMIN 2.8 g/dL (3.4-5.0); ALBUMIN/GLOBULIN RATIO 0.6 (1.0-1.7); TOTAL BILIRUBIN 0.3 mg/dL (0.2-1.0); TOTAL PROTEIN 7.3 g/dL (6.4-8.2)
[2016-10-13 07:59] LABS: POTASSIUM 5.4 mmol/L (3.5-5.1)
[2016-10-13] MEDS: ENOXAPARIN 40 MG/0.4 ML DISP.SYRIN. SQ SCH (08:14)
[2016-10-13] MEDS: GABAPENTIN 300 MG CAPSULE. PO SCH ×4 (08:14→20:23)
[2016-10-13] MEDS: PANTOPRAZOLE IV PUSH 40 MG VIAL. IVP SCH (08:15)
[2016-10-13] MEDS: ASPIRIN 81 MG TAB.CHEW PO SCH (08:15)
[2016-10-13] MEDS: PREDNISONE 10 MG TABLET PO SCH (08:15)
[2016-10-13] MEDS: PRAMIPEXOLE 0.25 MG TABLET. PO SCH ×3 (08:15→20:22)
[2016-10-13] MEDS: CEFPODOXIME PROXETIL 200 MG TABLET PO SCH (08:16)
[2016-10-13] MEDS: METOPROLOL SUCC 24HR ER 25 MG TAB.ER.24H. PO SCH (08:16)
[2016-10-13] MEDS: CARBIDOPA/LEVODOPA CR 50/200MG TABLET.SA PO SCH ×3 (08:16→20:23)
[2016-10-13] MEDS: TRAMADOL 50 MG TABLET. PO SCH ×4 (08:17→20:23)
[2016-10-13] MEDS: LEVETIRACETAM 250 MG TABLET. PO SCH ×2 (08:17→20:22)
[2016-10-13] MEDS ORDERED: SODIUM POLYSTYRENE SULFONATE 15 GM/60 ML ORAL.SUSP. PO ONE (08:30)
[2016-10-13] MEDS ORDERED: IV DEXTROSE 5% - 0.9 % NACL 1,000 ML IV SCH (08:30)
--- NOTE | 2016-10-13 08:34 | PDOC ---
PROGRESS NOTES Subjective Subjective complains of epigastric pain and had rust colored hematemesis. lab reviewed. wbc high 17.5 and hgb stable. potassium high 5.4. acugte abdominal series noted some gas distention of stomach and small bowel without air fluids levels. he has bowel sounds. discussed with dr. vik lees Objective Objective Vital Signs Date Time Temp Pulse Resp B/P Pulse Ox O2 Delivery O2 Flow Rate FiO2 10/13/16 08:16 69 124/54 10/13/16 03:00 98.1 20 93 Nasal Cannula 1.0 98.1 Intake and Output 10/13/16 07:00 # Voids 7 # Bowel Movements 7 Physical Exam Abdomen: Normal bowel sounds, Soft, Other (epigastric tenderness) Heart: Regular rate, Normal S1, Normal S2 Extremities: Other (1 plus edema feet) General: Alert HEENT: Atraumatic Lungs: Clear to auscultation Neuro: Normal speech Psych/Mental Status: Mood NL Skin: No rashes Assessment Assessment Problems Medical Problems:Small-bowel obstruction resolved 2. Seizure disorder. 3. Parkinson's disease. 4. Hypothyroidism. 5. Peripheral neuropathy. 6. Hypertension. BP high 7. Chronic kidney disease stage III. klebsiella uti treated suspect gout. synovitis of left hand and wrist resolved peripheral edema improved critical illness myopathy hematemesis epigastric abdominal pain leukocytosis hyperkalemia (1) SBO (small bowel obstruction) Status: Acute Plan Plan of Care d/c aspirin and prednisone consult dr. an. evaluate for egd iv protonix ct scan abdomen and pelvis without it contrast kayexelate times 1 iv fluids d/c vantin blood and urine cultures stool for c. diff toxin clear liquids Comment Review of Relevant I have reviewed the following items [place] (where applicable) has been applied. Labs Laboratory Tests Test 10/12/16 06:10 10/13/16 07:00 White Blood Count 7.2x10^3/uL (4.0-11.0) 17.5x10^3/uL (4.0-11.0) Red Blood Count 2.82x10^6/uL (4.30-5.70) 3.45x10^6/uL (4.30-5.70) Hemoglobin 9.3g/dL (13.0-17.5) 11.1g/dL (13.0-17.5) Hematocrit 28.1% (39.0-53.0) 34.9% (39.0-53.0) Mean Corpuscular Volume 99fL (79-100) 101fL (79-100) Mean Corpuscular Hemoglobin 33pg (25-35) 32pg (25-35) Mean Corpuscular Hemoglobin Concent 33g/dL (31-37) 32g/dL (31-37) Red Cell Distribution Width 15.3% (11.5-14.5) 15.2% (11.5-14.5) Platelet Count 306x10^3/uL (140-400) 338x10^3/uL (140-400) Neutrophils (%) (Auto) 64% (31-73) 92% (31-73) Lymphocytes (%) (Auto) 29% (24-48) 5% (24-48) Monocytes (%) (Auto) 5% (0-9) 3% (0-9) Eosinophils (%) (Auto) 2% (0-3) 0% (0-3) Basophils (%) (Auto) 0% (0-3) 0% (0-3) Neutrophils # (Auto) 4.6x10^3uL (1.8-7.7) 16.1x10^3uL (1.8-7.7) Lymphocytes # (Auto) 2.1x10^3/uL (1.0-4.8) 0.8x10^3/uL (1.0-4.8) Monocytes # (Auto) 0.4x10^3/uL (0.0-1.1) 0.6x10^3/uL (0.0-1.1) Eosinophils # (Auto) 0.1x10^3/uL (0.0-0.7) 0.0x10^3/uL (0.0-0.7) Basophils # (Auto) 0.0x10^3/uL (0.0-0.2) 0.0x10^3/uL (0.0-0.2) Sodium Level 139mmol/L (136-145) 137mmol/L (136-145) Potassium Level 4.7mmol/L (3.5-5.1) 5.4mmol/L (3.5-5.1) Chloride Level 103mmol/L (98-107) 101mmol/L (98-107) Carbon Dioxide Level 33mmol/L (21-32) 32mmol/L (21-32) Anion Gap 3 (6-14) 4 (6-14) Blood Urea Nitrogen 34mg/dL (8-26) 41mg/dL (8-26) Creatinine 1.4mg/dL (0.7-1.3) 1.6mg/dL (0.7-1.3) Estimated GFR (Cockcroft-Gault) 48.2 41.3 Glucose Level 133mg/dL (70-99) 156mg/dL (70-99) Calcium Level 8.6mg/dL (8.5-10.1) 8.9mg/dL (8.5-10.1) BUN/Creatinine Ratio 26 (6-20) Total Bilirubin 0.3mg/dL (0.2-1.0) Aspartate Amino Transf (AST/SGOT) 38U/L (15-37) Alanine Aminotransferase (ALT/SGPT) 17U/L (16-63) Alkaline Phosphatase 100U/L (46-116) Total Protein 7.3g/dL (6.4-8.2) Albumin 2.8g/dL (3.4-5.0) Albumin/Globulin Ratio 0.6 (1.0-1.7) Amylase Level 134U/L (25-115) Lipase 230U/L (73-393) Laboratory Tests Test 10/13/16 07:00 White Blood Count 17.5x10^3/uL (4.0-11.0) Red Blood Count 3.45x10^6/uL (4.30-5.70) Hemoglobin 11.1g/dL (13.0-17.5) Hematocrit 34.9% (39.0-53.0) Mean Corpuscular Volume 101fL (79-100) Mean Corpuscular Hemoglobin 32pg (25-35) Mean Corpuscular Hemoglobin Concent 32g/dL (31-37) Red Cell Distribution Width 15.2% (11.5-14.5) Platelet Count 338x10^3/uL (140-400) Neutrophils (%) (Auto) 92% (31-73) Lymphocytes (%) (Auto) 5% (24-48) Monocytes (%) (Auto) 3% (0-9) Eosinophils (%) (Auto) 0% (0-3) Basophils (%) (Auto) 0% (0-3) Neutrophils # (Auto) 16.1x10^3uL (1.8-7.7) Lymphocytes # (Auto) 0.8x10^3/uL (1.0-4.8) Monocytes # (Auto) 0.6x10^3/uL (0.0-1.1) Eosinophils # (Auto) 0.0x10^3/uL (0.0-0.7) Basophils # (Auto) 0.0x10^3/uL (0.0-0.2) Sodium Level 137mmol/L (136-145) Potassium Level 5.4mmol/L (3.5-5.1) Chloride Level 101mmol/L (98-107) Carbon Dioxide Level 32mmol/L (21-32) Anion Gap 4 (6-14) Blood Urea Nitrogen 41mg/dL (8-26) Creatinine 1.6mg/dL (0.7-1.3) Estimated GFR (Cockcroft-Gault) 41.3 BUN/Creatinine Ratio 26 (6-20) Glucose Level 156mg/dL (70-99) Calcium Level 8.9mg/dL (8.5-10.1) Total Bilirubin 0.3mg/dL (0.2-1.0) Aspartate Amino Transf (AST/SGOT) 38U/L (15-37) Alanine Aminotransferase (ALT/SGPT) 17U/L (16-63) Alkaline Phosphatase 100U/L (46-116) Total Protein 7.3g/dL (6.4-8.2) Albumin 2.8g/dL (3.4-5.0) Albumin/Globulin Ratio 0.6 (1.0-1.7) Amylase Level 134U/L (25-115) Lipase 230U/L (73-393) Microbiology 10/04/16 Blood Culture - Final, Complete NO GROWTH AFTER 5 DAYS 10/04/16 Urine Culture - Final, Complete 10/04/16 Urine Culture Result 1 (MANDEEP) - Final, Complete 10/04/16 Antimicrobic Susceptibility - Final, Complete Medications Current Medications Fentanyl Citrate 50 mcg 50 mcg PRN Q15MIN PRN IV PAIN GREATER THAN 3/10 Last administered on 09/30/16at 19:35; Start 09/30/16 at 17:30; Stop 10/01/16 at 04 :24; Status DC Lactated Ringer's (Iv Lactated Ringers) 1,000 ml @ 100 mls/hr Q10H IV Last administered on 09/30/16at 19:35; Start 09/30/16 at 17:28; Stop 10/01/16 at 03 :27; Status DC Ondansetron HCl (Zofran) 4 mg 1X ONCE IV Last administered on 09/30/16at 17:44 ; Start 09/30/16 at 17:30; Stop 09/30/16 at 17:32; Status DC Fentanyl Citrate (Fentanyl 2ml Vial) 50 mcg 1X ONCE IV ; Start 09/30/16 at 19: 15; Stop 10/01/16 at 04:24; Status DC Ondansetron HCl (Zofran) 4 mg PRN Q8HRS PRN IV NAUSEA/VOMITING Last administered on 09/30/16at 22:07; Start 09/30/16 at 19:15; Stop 10/01/16 at 19 :14; Status DC Fentanyl Citrate 50 mcg 50 mcg PRN Q2HR PRN IV PAIN Last administered on at 16:54; Start 09/30/16 at 19:15; Stop 10/01/16 at 19:14; Status DC Sodium Chloride 1,000 ml @ 100 mls/hr Q10H IV ; Start 09/30/16 at 19:30; Stop 10/01/16 at 04:24; Status DC Potassium Chloride/Dextrose/ Sod Cl (KCl 20 Meq In D5W-1/2 NS) 1,000 ml @ 125 mls/hr Q8H IV Last administered on 10/04/16at 06:02; Start 09/30/16 at 20:00; Stop 10/04/16 at 10:21; Status DC Enoxaparin Sodium 40 mg 40 mg Q24H SQ Last administered on 10/13/16t 08:14; Start 10/01/16 at 09:00 Levetiracetam/ Sodium Chloride (Keppra/Iv Sodium Chloride 0.9% 100ml) 105 ml @ 400 mls/hr Q12HR IV Last administered on 10/05/16 09:30; Start 09/30/16 at 21: 00; Stop 10/05/16 at 10:24; Status DC Morphine Sulfate 2 mg PRN Q4HRS PRN IV SEVERE PAIN Last administered on 10:13; Start 09/30/16 at 19:30; Stop 10/05/16 at 10:24; Status DC Acetaminophen (Tylenol) [address] Q[address]RS [address] MILD PAIN / TEMP; Start at 19:30; Stop 10/05/16 at 10:24; Status DC Ondansetron HCl (Zofran) 4 mg PRN Q6HRS PRN IV NAUSEA/VOMITING Last administered on 10/07/16 08:28; Start 09/30/16 at 19:30; Stop 10/09/16 at 12:08 ; Status DC Benzocaine (Hurricaine One) 1 spray STK-MED ONCE .ROUTE ; Start 09/30/16 at 19: 51; Stop 09/30/16 at 19:52; Status DC Morphine Sulfate 4 mg PRN Q4HRS PRN IV PAIN Last administered on 10/05/16 08:08 ; Start 10/01/16 at 20:00; Stop 10/05/16 at 10:24; Status DC Clonidine HCl 1 patch 1 patch WEEKLY TD Last administered on 10/03/16at 12:30; Start 10/03/16 at 10:00; Stop 10/05/16 at 10:24; Status DC Piperacillin Sod/ Tazobactam Sod/ Sodium Chloride (Zosyn/Iv Sodium Chloride 0.9 % 50ml) 50 ml @ 100 mls/hr Q6HRS IV Last administered on 10/09/16 06:26; Start 10/04/16 at 11:00; Stop 10/09/16 at 10:55; Status DC Vancomycin HCl 1 each 1 each PRN DAILY PRN MC SEE COMMENTS Last administered on 10/07/16 11:11; Start 10/04/16 at 10:15; Stop 10/07/16 at 11:28; Status DC Vancomycin HCl/ Sodium Chloride (Iv Sodium Chloride 0.9% 250ml) 250 ml @ 250 mls/hr Q24H IV ; Start 10/04/16 at 10:15; Status UNV Labetalol HCl (Normodyne) 20 mg PRN Q6HRS PRN IVP HYPERTENSION, SEE COMMENTS; Start 10/04/16 at 10:15; Stop 10/05/16 at 10:24; Status DC Hydralazine HCl 10 mg 10 mg PRN Q6HRS PRN IVP ELEVATED BP, SEE COMMENTS Last administered on 10/06/16 19:17; Start 10/04/16 at 10:15; Stop 10/12/16 at 10:40 ; Status DC Amino Acids/ Glycerin/ Electrolytes 1,000 ml @ 40 mls/hr Q24H IV Last administered on 10/06/16 09:59; Start 10/04/16 at 10:15; Stop 10/07/16 at 09:06 ; Status DC Vancomycin HCl 2 gm/Sodium Chloride 500 ml @ 250 mls/hr 1X ONCE IV Last administered on 10/04/16at 11:26; Start 10/04/16 at 10:45; Stop 10/04/16 at 12 :44; Status DC Vancomycin HCl/ Sodium Chloride (Iv Sodium Chloride 0.9% 500ml Bag) 500 ml @ 250 mls/hr Q24H IV Last administered on 10/06/16 11:47; Start 10/05/16 at 12:00 ; Stop 10/07/16 at 11:28; Status DC Vancomycin HCl 1 each 1X ONCE MC Last administered on 10/06/16 11:30; Start at 11:30; Stop 10/06/16 at 11:31; Status DC Aspirin (Children'S Aspirin) 81 mg [id number] PO Last administered on 10/13/16 08:15; Start 10/05/16 at 11:00 Gabapentin (Neurontin) 600 mg QID PO Last administered on 10/13/16 08:14; Start 10/05/16 at 13:00 Levetiracetam (Keppra) 250 mg BID PO Last administered on 10/13/16 08:17; Start 10/05/16 at 11:00 Levothyroxine Sodium (Synthroid) 100 mcg DAILY07 PO Last administered on 05:08; Start 10/05/16 at 10:30 Metoprolol Succinate (Toprol Xl) 25 mg DAILY PO Last administered on 10/13/16 08:16; Start 10/05/16 at 11:00 Pramipexole Dihydrochloride (miraPEX) 0.5 mg [id number] PO Last administered on 10/13 08:15; Start 10/05/16 at 11:00 Simvastatin (Zocor) 20 mg HS PO Last administered on 10/12/16 21:07; Start 10/05 at 21:00 Carbidopa/Levodopa (Sinemet Cr) 1 tab.sa TID PO Last administered on 10/13/16 08:16; Start 10/05/16 at 11:00 Tamsulosin HCl (Flomax) 0.4 mg QHS PO Last administered on 10/12/16 21:07; Start 10/05/16 at 21:00 Tramadol HCl (Ultram) 50 mg QID PO Last administered on 10/13/16 08:17; Start 10/05/16 at 13:00 Acetaminophen (Tylenol) 650 mg PRN Q4HRS PRN PO MILD PAIN / TEMP Last administered on 10/13/16 00:17; Start 10/05/16 at 10:15 Prednisone (Prednisone) 20 mg 1X ONCE PO Last administered on 10/06/16 11:01; Start 10/06/16 at 10:30; Stop 10/06/16 at 10:31; Status DC Prednisone (Prednisone) 10 mg DAILY08 PO Last administered on 10/13/16 08:15; Start 10/07/16 at 08:00 Al Hydroxide/Mg Hydroxide (Mylanta Plus Xs) 30 ml PRN Q4HRS PRN PO HEARTBURN / GAS Last administered on 10/12/16 21:07; Start 10/07/16 at 08:45 Pantoprazole Sodium (Protonix) 40 mg DAILYAC PO Last administered on 10/13/16 05:08; Start 10/07/16 at 10:00; Stop 10/13/16 at 06:45; Status DC Furosemide 40 mg 40 mg DAILY PO Last administered on 10/08/16 08:42; Start 10/07 at 10:00; Stop 10/08/16 at 08:56; Status DC Sodium Chloride (Iv Sodium Chloride 0.45%) 1,000 ml @ 60 mls/hr CONT PRN IV . ; Start 10/08/16 at 09:00; Stop 10/08/16 at 16:06; Status DC Bisacodyl 10 mg [address] Last administered on 10/08/16 10:11; Start at 09:30; Stop 10/08/16 at 09:31; Status DC Sodium Chloride (Iv Sodium Chloride 0.45%) 1,000 ml @ 60 mls/hr [id number] IV Last administered on 10/09/16 02:52; Start 10/08/16 at 10:15; Stop 10/09/16 at 12: 00; Status DC Cefpodoxime Proxetil (Vantin) 200 mg BID PO ; Start 10/09/16 at 11:00; Stop at 12:08; Status DC Cefpodoxime Proxetil (Vantin) 100 mg BID PO Last administered on 10/13/16 08:16 ; Start 10/09/16 at 21:00 Ondansetron HCl (Zofran) 4 mg STK-MED ONCE .ROUTE Last administered on 01:24; Start 10/13/16 at 01:19; Stop 10/13/16 at 01:20; Status DC Ondansetron HCl (Zofran) 4 mg PRN Q6HRS PRN IV NAUSEA/VOMITING; Start 10/13/16 at 02:00 Pantoprazole Sodium (Protonix Vial) 40 mg DAILYAC IVP Last administered on 08:15; Start 10/13/16 at 07:30 Active Scripts Active Hydrocodone-Apap 5-325 (Hydrocodone Bit/Acetaminophen) 1 Each Tablet 1 Tab PO PRN Q6HRS PRN Metoprolol Succinate ( Xl ) (Metoprolol Succinate) 25 Mg Tab.er.24h 25 Mg PO DAILY Reported Flomax (Tamsulosin Hcl) 0.4 Mg Cap.er.24h 1 Cap PO QHS Tramadol Hcl 100 Mg Tab.er.24h 100 Mg PO QID Levetiracetam 250 Mg Tablet 250 Mg PO BID Dulcolax (Bisacodyl) 10 Mg Supp.rect 10 Mg RC PRN DAILY PRN Maalox Advanced Suspension (Mag Hydrox/Al Hydrox/Simeth) 770 Ml Oral.susp 30 Ml PO Q2HR PRN Milk Of Magnesia (Magnesium Hydroxide) 400 Mg/5 Ml Oral.susp 30 Ml PO DAILY PRN Robitussin Cough-Chest Dm Liq (Guaifenesin/Dextromethorphan) 118 Ml Liquid 10 Ml PO Q4HRS PRN Trazodone Hcl 50 Mg Tablet 1 Tab PO QHS Tylenol (Acetaminophen) 325 Mg Tablet 650 Mg PO Q6HRS PRN Pramipexole Dihydrochloride (Pramipexole Di-Hcl) 0.5 Mg Tablet 0.5 Mg PO TID Simvastatin 20 Mg Tablet 1 Tab PO QHS Levothyroxine Sodium 100 Mcg Tablet 1 Tab PO DAILY Gabapentin 800 Mg Tablet 800 Mg PO QID Sinemet 25-100 Mg Tablet (Carbidopa/Levodopa) 1 Each Tablet 2 Tab PO TID Aspirin 81 Mg Tab.chew 1 Tab PO DAILY Vitals/I & O Vital Sign - Last 24 Hours 10/12/16 10/12/16 10/12/16 10/12/16 11:00 13:26 15:00 17:02 Temp 97.5 97.9 97.5 97.9 Pulse 65 79 Resp 20 20 B/P 125/53 132/54 Pulse Ox 92 91 O2 Delivery Nasal Cannula Nasal Cannula Nasal Cannula Nasal Cannula O2 Flow Rate 1.0 2.0 1.0 2.0 10/12/16 10/12/16 10/12/16 10/12/16 18:10 19:00 20:00 23:13 Temp 97.7 98.1 97.7 98.1 Pulse 70 75 Resp 20 20 B/P 136/64 144/58 Pulse Ox 94 93 O2 Delivery Nasal Cannula Nasal Cannula Nasal Cannula Nasal Cannula O2 Flow Rate 2.0 1.0 2.0 1.0 10/13/16 10/13/16 03:00 08:16 Temp 98.1 98.1 Pulse 69 69 Resp 20 B/P 124/54 124/54 Pulse Ox 93 O2 Delivery Nasal Cannula O2 Flow Rate 1.0 RICHARD [place] MD Oct 13, 2016 08:34
--- NOTE | 2016-10-13 08:44 | PDOC ---
Infectious Disease Note Subjective Subjective called to see, had vomited this am some lose stool, says not feeling well, abd pain and now elevated wbc ROS ROS GEN: Denies fevers, chills, sweats HEENT: Denies blurred vision, sore throat CV: Denies chest pain RESP: Denies shortness of air, cough NEURO: Denies confusion, dizziness MSK: Denies weakness, joint pain/swelling Vital Sign Vital Signs Vital Signs Date Time Temp Pulse Resp B/P Pulse Ox O2 Delivery O2 Flow Rate FiO2 10/13/16 08:16 69 124/54 10/13/16 03:00 98.1 20 93 Nasal Cannula 1.0 98.1 Physical Exam PHYSICAL EXAM GENERAL: NAD, Alert HEENT: PERRL, OC/OP NECK: Supple, no JVD, no LN LUNGS: Clear HEART: S1S2, no gallop, no murmur ABD: Soft, , no organomegaly, no rebound,, mild distention EXT: No edema, no cyanosis RN ONCOLOGY RESEARCH: Alert, 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, no focal neurologic deficit SKIN: No rash IV: ok Labs Lab Laboratory Tests Test 10/13/16 07:00 White Blood Count 17.5x10^3/uL (4.0-11.0) Red Blood Count 3.45x10^6/uL (4.30-5.70) Hemoglobin 11.1g/dL (13.0-17.5) Hematocrit 34.9% (39.0-53.0) Mean Corpuscular Volume 101fL (79-100) Mean Corpuscular Hemoglobin 32pg (25-35) Mean Corpuscular Hemoglobin Concent 32g/dL (31-37) Red Cell Distribution Width 15.2% (11.5-14.5) Platelet Count 338x10^3/uL (140-400) Neutrophils (%) (Auto) 92% (31-73) Lymphocytes (%) (Auto) 5% (24-48) Monocytes (%) (Auto) 3% (0-9) Eosinophils (%) (Auto) 0% (0-3) Basophils (%) (Auto) 0% (0-3) Neutrophils # (Auto) 16.1x10^3uL (1.8-7.7) Lymphocytes # (Auto) 0.8x10^3/uL (1.0-4.8) Monocytes # (Auto) 0.6x10^3/uL (0.0-1.1) Eosinophils # (Auto) 0.0x10^3/uL (0.0-0.7) Basophils # (Auto) 0.0x10^3/uL (0.0-0.2) Sodium Level 137mmol/L (136-145) Potassium Level 5.4mmol/L (3.5-5.1) Chloride Level 101mmol/L (98-107) Carbon Dioxide Level 32mmol/L (21-32) Anion Gap 4 (6-14) Blood Urea Nitrogen 41mg/dL (8-26) Creatinine 1.6mg/dL (0.7-1.3) Estimated GFR (Cockcroft-Gault) 41.3 BUN/Creatinine Ratio 26 (6-20) Glucose Level 156mg/dL (70-99) Calcium Level 8.9mg/dL (8.5-10.1) Total Bilirubin 0.3mg/dL (0.2-1.0) Aspartate Amino Transf (AST/SGOT) 38U/L (15-37) Alanine Aminotransferase (ALT/SGPT) 17U/L (16-63) Alkaline Phosphatase 100U/L (46-116) Total Protein 7.3g/dL (6.4-8.2) Albumin 2.8g/dL (3.4-5.0) Albumin/Globulin Ratio 0.6 (1.0-1.7) Amylase Level 134U/L (25-115) Lipase 230U/L (73-393) Objective Assessment Fever - better TAYOLR Klebsiella UTI 10/04 although a lot of squamous cells present on UA Small bowel obstruction - Hiatal hernia + MRSA Cipro allergy. Seizure disorder Parkinson's disease Plan Plan of Care check stool for c diff supportive care start jonathansyn d/w OMI Islas MD Oct 13, 2016 08:44
[2016-10-13] MEDS: PIPERACILLIN/TAZOBACTAM 3.375 GM in IV NORMAL SALINE 50ML 50 ML IV SCH ×3 (09:25→14:00)
[2016-10-13] MEDS: ONDANSETRON PF 4 MG/2 ML VIAL. IV PRN (09:26)
--- NOTE | 2016-10-13 10:17 | PDOC2 ---
GI CONSULT Reason For Consult: Bloody emesis HPI: HPI: 86 y/o male admitted 10/04/16 w/ SBO which has resolved. D/w RN - he has been on a GI soft diet. Per nursing documentation, he vomited "red liquid" this morning; increased abdominal distention was noted and he had a large liquid stool. His current RN reports he has been vomiting some rust-colored material and complaining of "all over pain" and gas. Patient confirms that after feeling better yesterday, he has been vomiting reddish material this morning and his abdomen now looks more distended. He has had some heartburn and mostly has pain in his feet. Colonoscopy in 2000 showed diverticulosis. There is some question re: h/o colon cancer in the . Per Dr. 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 He doesn't believe he's had previous EGD. Labs show Hgb 11.1 (on admission was around 11 w/ gradual drifting to 8s, yesterday was 9.3). BUN 41, Cr 1.6, WBC 17.5 (from 7.2). ID is following. He is on antibiotics and PPI. Acute abd series this morning showed slight increased gaseous distention of small and some large bowel loops (?ileus). CT A /P has been ordered. 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), HTN, HLD , hypothyroidism, peripheral neuropathy, seizure disorder, Parkinson disease, depression, CKD III, DVT, prostate cancer s/p prostatectomy, SBO, ventral hernia repair, bilateral orchiectomy, appendectomy, lumbar laminectomy, right inguinal hernia repair FH: Family History: No pertinent hx Social History: Smoke: No ALCOHOL: none Drugs: None ROS: GEN: Denies fevers, chills, sweats HEENT: Denies blurred vision, sore throat CV: Denies chest pain RESP: Denies shortness of air, cough GI: Per HPI : Denies hematuria, dysuria ENDO: Denies weight changes NEURO: Denies confusion, dizziness MSK: Denies weakness, joint pain/swelling SKIN: Denies jaundice, pruritus VItals: Vitals: Vital Signs Date Time Temp Pulse Resp B/P Pulse Ox O2 Delivery O2 Flow Rate FiO2 1/9/17 08:16 69 124/54 10/13/16 07:00 97.9 18 94 Nasal Cannula 1.0 97.9 Labs: Labs: Laboratory Tests Test 10/13/16 07:00 White Blood Count 17.5x10^3/uL (4.0-11.0) Red Blood Count 3.45x10^6/uL (4.30-5.70) Hemoglobin 11.1g/dL (13.0-17.5) Hematocrit 34.9% (39.0-53.0) Mean Corpuscular Volume 101fL (79-100) Mean Corpuscular Hemoglobin 32pg (25-35) Mean Corpuscular Hemoglobin Concent 32g/dL (31-37) Red Cell Distribution Width 15.2% (11.5-14.5) Platelet Count 338x10^3/uL (140-400) Neutrophils (%) (Auto) 92% (31-73) Lymphocytes (%) (Auto) 5% (24-48) Monocytes (%) (Auto) 3% (0-9) Eosinophils (%) (Auto) 0% (0-3) Basophils (%) (Auto) 0% (0-3) Neutrophils # (Auto) 16.1x10^3uL (1.8-7.7) Lymphocytes # (Auto) 0.8x10^3/uL (1.0-4.8) Monocytes # (Auto) 0.6x10^3/uL (0.0-1.1) Eosinophils # (Auto) 0.0x10^3/uL (0.0-0.7) Basophils # (Auto) 0.0x10^3/uL (0.0-0.2) Sodium Level 137mmol/L (136-145) Potassium Level 5.4mmol/L (3.5-5.1) Chloride Level 101mmol/L (98-107) Carbon Dioxide Level 32mmol/L (21-32) Anion Gap 4 (6-14) Blood Urea Nitrogen 41mg/dL (8-26) Creatinine 1.6mg/dL (0.7-1.3) Estimated GFR (Cockcroft-Gault) 41.3 BUN/Creatinine Ratio 26 (6-20) Glucose Level 156mg/dL (70-99) Calcium Level 8.9mg/dL (8.5-10.1) Total Bilirubin 0.3mg/dL (0.2-1.0) Aspartate Amino Transf (AST/SGOT) 38U/L (15-37) Alanine Aminotransferase (ALT/SGPT) 17U/L (16-63) Alkaline Phosphatase 100U/L (46-116) Total Protein 7.3g/dL (6.4-8.2) Albumin 2.8g/dL (3.4-5.0) Albumin/Globulin Ratio 0.6 (1.0-1.7) Amylase Level 134U/L (25-115) Lipase 230U/L (73-393) Allergies: Coded Allergies: I S O L A T I O N *CONTACT* (Verified Allergy, Unknown, 10/01/16) mrsa No Known Medication Allergies (Verified Allergy, Unknown, 01/21/16) Medications: Current Medications Medications (Trade) Dose Ordered Sig/Liam Route PRN Reason Start Time Stop Time Status Last Admin Dose Admin Ondansetron HCl (Zofran) 4 mg STK-MED ONCE .ROUTE 10/13/16 01:19 10/13/16 01:20 DC 10/13/16 01:24 Ondansetron HCl (Zofran) 4 mg PRN Q6HRS PRN IV NAUSEA/VOMITING 10/13/16 02:00 10/13/16 09:26 Pantoprazole Sodium 40 mg 40 mg DAILYAC IVP 10/13/16 07:30 10/13/16 08:15 Dextrose/Sodium Chloride (Iv D5% - NS) 1,000 ml @ 60 mls/hr [id number] IV 10/13/16 08:30 10/13/16 09:25 Sodium Polystyrene Sulfonate 15 gm 15 gm 1X ONCE PO 10/13/16 08:30 10/13/16 08:31 DC 10/13/16 09:26 Piperacillin Sod/ Tazobactam Sod/ Sodium Chloride (Zosyn/Iv Sodium Chloride 0.9% 50ml) 50 ml @ 100 mls/hr Q6HRS IV 10/13/16 09:00 10/13/16 09:25 Imaging: Imaging: Acute Abd Series 10/13/15 IMPRESSION 1. Similar-appearing bibasilar opacities may represent infiltrate, with possible small left pleural effusion. 2. Slight increased gaseous distention of small and some large bowel loops, without air-fluid levels to suggest obstruction on the upright view. Findings may represent ileus. 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 D/w RN, GI lab. Pt agreeable. Await CT results. GAYLA CLEMENTE Oct 13, 2016 10:16
--- NOTE | 2016-10-13 10:23 | RAD ---
EXAM: Abdomen and pelvis CT without intravenous contrast. HISTORY: Epigastric pain. TECHNIQUE: Computed tomographic images of the abdomen and pelvis were obtained without contrast. Multiplanar reformatting was performed. COMPARISON: 09/30/2016. FINDINGS: Evaluation of the lower thorax demonstrates trace pleural effusions with lingular and bilateral lower lobe atelectasis, infiltrate or pleural-parenchymal scarring. There is cardiomegaly. There is a moderate to large hiatal hernia. There are dorsal column stimulator leads terminate at the superior margin of the [id number]. There is left-sided portal venous gas. No focal hepatic lesion is seen. The gallbladder, pancreas, spleen and adrenal glands are unremarkable. There is bilateral renal atrophy. There is no obstructive uropathy. There is a distended stomach and there are distended air and fluid-filled loops of small bowel throughout the abdomen. There is mesenteric stranding surrounding a distended loop of small bowel within the left abdomen, new compared to the prior study. There is bowel anastomosis within the ventral mid abdomen. There is colonic diverticulosis without evidence of diverticulitis. The bladder is unremarkable. 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 There is an inferior vena cava filter in expected position. No pathologically enlarged lymph node is seen. There is gas within the ventral abdominal wall likely due to medication injection sites. There is ventral abdominal wall scarring. There are degenerative changes throughout the spine and bony pelvis. There is an interspinous decompression device at L3-L4. IMPRESSION: 1. Distended loops of small bowel throughout the abdomen with superimposed stranding surrounding a segment of small bowel within the left abdomen. Given evidence of portal venous gas, this is concerning for segmental bowel ischemia/infarction from partial obstruction or recently reduced obstruction. 2. Moderate to large hiatal hernia and distended stomach. 3. Findings consistent with partial bowel resection. 4. Bilateral lower lobe and lingular atelectasis, interstitial infiltrate or pleural-parenchymal scarring. 5. Renal atrophy. Findings were discussed with Indu, the nurse caring for the patient, at 1000 hours on 10/13/2016. PQRS Compliance Statement: One or more of the following individualized dose reduction techniques were utilized for this examination: 1. Automated exposure control 2. Adjustment of the mA and/or kV according to patient size 3. Use of iterative reconstruction technique
[2016-10-13 10:53] LABS: ANISOCYTOSIS SLIGHT; PLT ESTIMATE ADEQUATE (ADEQUATE)
[2016-10-13 11:09] LABS: BILIRUBIN,URINE NEGATIVE (NEG); GLUCOSE,URINE NEGATIVE (NEG); NITRITE,URINE NEGATIVE (NEG); PROTEIN,URINE NEGATIVE (NEG-TRACE); UROBILINOGEN,URINE 0.2 mg/dL (0.2 mg/dL)
[2016-10-13 11:28] LABS: BACTERIA,URINE 0 /HPF (0-FEW); RBC,URINE OCC /HPF (0-2); SQUAMOUS EPITHELIAL CELL,UR FEW /LPF; WBC,URINE OCC /HPF (0-4)
[2016-10-13] MEDS: IV DEXTROSE 5 %-0.45 % NACL 1,000 ML IV SCH ×2 (11:53→20:17)
--- NOTE | 2016-10-13 12:11 | PDOC ---
SURGICAL PROGRESS NOTE Subjective had been doing well, eating, having stools --last night developed more pain, today had blood in stool and hematemesis. more abdominal distention Vital Signs Vital Signs Date Time Temp Pulse Resp B/P Pulse Ox O2 Delivery O2 Flow Rate FiO2 10/13/16 11:00 97.7 74 16 113/53 93 Nasal Cannula 1.0 97.7 I&O Intake and Output 10/13/16 07:00 # Voids 7 # Bowel Movements 7 General: No acute distress, Other (no acute distress, appears ill) Abdomen: Soft, Other (distented, mild diffuse tenderness, no guarding or rebound) Labs Laboratory Tests Test 10/12/16 06:10 10/13/16 07:00 10/13/16 10:00 White Blood Count 7.2x10^3/uL (4.0-11.0) 17.5x10^3/uL (4.0-11.0) Red Blood Count 2.82x10^6/uL (4.30-5.70) 3.45x10^6/uL (4.30-5.70) Hemoglobin 9.3g/dL (13.0-17.5) 11.1g/dL (13.0-17.5) Hematocrit 28.1% (39.0-53.0) 34.9% (39.0-53.0) Mean Corpuscular Volume 99fL (79-100) 101fL (79-100) Mean Corpuscular Hemoglobin 33pg (25-35) 32pg (25-35) Mean Corpuscular Hemoglobin Concent 33g/dL (31-37) 32g/dL (31-37) Red Cell Distribution Width 15.3% (11.5-14.5) 15.2% (11.5-14.5) Platelet Count 306x10^3/uL (140-400) 338x10^3/uL (140-400) Neutrophils (%) (Auto) 64% (31-73) 92% (31-73) Lymphocytes (%) (Auto) 29% (24-48) 5% (24-48) Monocytes (%) (Auto) 5% (0-9) 3% (0-9) Eosinophils (%) (Auto) 2% (0-3) 0% (0-3) Basophils (%) (Auto) 0% (0-3) 0% (0-3) Neutrophils # (Auto) 4.6x10^3uL (1.8-7.7) 16.1x10^3uL (1.8-7.7) Lymphocytes # (Auto) 2.1x10^3/uL (1.0-4.8) 0.8x10^3/uL (1.0-4.8) Monocytes # (Auto) 0.4x10^3/uL (0.0-1.1) 0.6x10^3/uL (0.0-1.1) Eosinophils # (Auto) 0.1x10^3/uL (0.0-0.7) 0.0x10^3/uL (0.0-0.7) Basophils # (Auto) 0.0x10^3/uL (0.0-0.2) 0.0x10^3/uL (0.0-0.2) Sodium Level 139mmol/L (136-145) 137mmol/L (136-145) Potassium Level 4.7mmol/L (3.5-5.1) 5.4mmol/L (3.5-5.1) Chloride Level 103mmol/L (98-107) 101mmol/L (98-107) Carbon Dioxide Level 33mmol/L (21-32) 32mmol/L (21-32) Anion Gap 3 (6-14) 4 (6-14) Blood Urea Nitrogen 34mg/dL (8-26) 41mg/dL (8-26) Creatinine 1.4mg/dL (0.7-1.3) 1.6mg/dL (0.7-1.3) Estimated GFR (Cockcroft-Gault) 48.2 41.3 Glucose Level 133mg/dL (70-99) 156mg/dL (70-99) Calcium Level 8.6mg/dL (8.5-10.1) 8.9mg/dL (8.5-10.1) Segmented Neutrophils % 82% (35-66) Band Neutrophils % 12% (0-9) Lymphocytes % 2% (24-48) Monocytes % 4% (0-10) Platelet Estimate Adequate (ADEQUATE) Anisocytosis Slight BUN/Creatinine Ratio 26 (6-20) Total Bilirubin 0.3mg/dL (0.2-1.0) Aspartate Amino Transf (AST/SGOT) 38U/L (15-37) Alanine Aminotransferase (ALT/SGPT) 17U/L (16-63) Alkaline Phosphatase 100U/L (46-116) Total Protein 7.3g/dL (6.4-8.2) Albumin 2.8g/dL (3.4-5.0) Albumin/Globulin Ratio 0.6 (1.0-1.7) Amylase Level 134U/L (25-115) Lipase 230U/L (73-393) Urine Collection Type Unknown Urine Color Yellow Urine Clarity Clear Urine pH 6.0 Urine Specific [place] 1.025 Urine Protein Negativemg/dL (NEG-TRACE) Urine Glucose (UA) Negativemg/dL (NEG) Urine Ketones (Stick) Tracemg/dL (NEG) Urine Blood Negative (NEG) Urine Nitrite Negative (NEG) Urine Bilirubin Negative (NEG) Urine Urobilinogen Dipstick 0.2mg/dL (0.2 mg/dL) Urine Leukocyte Esterase Negative (NEG) Urine RBC Occ/HPF (0-2) Urine WBC Occ/HPF (0-4) Urine Squamous Epithelial Cells Few/LPF Urine Bacteria 0/HPF (0-FEW) Urine Mucus Slight/LPF Laboratory Tests Test 10/13/16 07:00 10/13/16 10:00 White Blood Count 17.5x10^3/uL (4.0-11.0) Red Blood Count 3.45x10^6/uL (4.30-5.70) Hemoglobin 11.1g/dL (13.0-17.5) Hematocrit 34.9% (39.0-53.0) Mean Corpuscular Volume 101fL (79-100) Mean Corpuscular Hemoglobin 32pg (25-35) Mean Corpuscular Hemoglobin Concent 32g/dL (31-37) Red Cell Distribution Width 15.2% (11.5-14.5) Platelet Count 338x10^3/uL (140-400) Neutrophils (%) (Auto) 92% (31-73) Lymphocytes (%) (Auto) 5% (24-48) Monocytes (%) (Auto) 3% (0-9) Eosinophils (%) (Auto) 0% (0-3) Basophils (%) (Auto) 0% (0-3) Neutrophils # (Auto) 16.1x10^3uL (1.8-7.7) Lymphocytes # (Auto) 0.8x10^3/uL (1.0-4.8) Monocytes # (Auto) 0.6x10^3/uL (0.0-1.1) Eosinophils # (Auto) 0.0x10^3/uL (0.0-0.7) Basophils # (Auto) 0.0x10^3/uL (0.0-0.2) Segmented Neutrophils % 82% (35-66) Band Neutrophils % 12% (0-9) Lymphocytes % 2% (24-48) Monocytes % 4% (0-10) Platelet Estimate Adequate (ADEQUATE) Anisocytosis Slight Sodium Level 137mmol/L (136-145) Potassium Level 5.4mmol/L (3.5-5.1) Chloride Level 101mmol/L (98-107) Carbon Dioxide Level 32mmol/L (21-32) Anion Gap 4 (6-14) Blood Urea Nitrogen 41mg/dL (8-26) Creatinine 1.6mg/dL (0.7-1.3) Estimated GFR (Cockcroft-Gault) 41.3 BUN/Creatinine Ratio 26 (6-20) Glucose Level 156mg/dL (70-99) Calcium Level 8.9mg/dL (8.5-10.1) Total Bilirubin 0.3mg/dL (0.2-1.0) Aspartate Amino Transf (AST/SGOT) 38U/L (15-37) Alanine Aminotransferase (ALT/SGPT) 17U/L (16-63) Alkaline Phosphatase 100U/L (46-116) Total Protein 7.3g/dL (6.4-8.2) Albumin 2.8g/dL (3.4-5.0) Albumin/Globulin Ratio 0.6 (1.0-1.7) Amylase Level 134U/L (25-115) Lipase 230U/L (73-393) Urine Collection Type Unknown Urine Color Yellow Urine Clarity Clear Urine pH 6.0 Urine Specific [place] 1.025 Urine Protein Negativemg/dL (NEG-TRACE) Urine Glucose (UA) Negativemg/dL (NEG) Urine Ketones (Stick) Tracemg/dL (NEG) Urine Blood Negative (NEG) Urine Nitrite Negative (NEG) Urine Bilirubin Negative (NEG) Urine Urobilinogen Dipstick 0.2mg/dL (0.2 mg/dL) Urine Leukocyte Esterase Negative (NEG) Urine RBC Occ/HPF (0-2) Urine WBC Occ/HPF (0-4) Urine Squamous Epithelial Cells Few/LPF Urine Bacteria 0/HPF (0-FEW) Urine Mucus Slight/LPF Problem List Problems Medical Problems: (1) SBO (small bowel obstruction) Status: Acute Assessment/Plan CT with portal venous gas and stranding to area of sb, wbc 17--concerning for ischemic bowel I d/w dr solitario plans for laparotomy today, NG, abx Problems: PAZ MONTEJO APRN Oct 13, 2016 12:11
[2016-10-13] MEDS ORDERED: IV RINGERS,LACTATED 1000ML 1,000 ML IV SCH (12:17)
[2016-10-13] MEDS ORDERED: HYDROMORPHONE 2 MG/ML VIAL. IV PRN ×2 (12:30→13:00)
[2016-10-13] MEDS ORDERED: ONDANSETRON PF 4 MG/2 ML VIAL. IV PRN (12:30)
[2016-10-13] MEDS ORDERED: PROCHLORPERAZINE 10 MG/2 ML VIAL. IV PRN ×2 (12:30→13:00)
[2016-10-13] MEDS ORDERED: LIDOCAINE 1% 1 ML SYRINGE. ID PRN ×2 (12:30→13:00)
[2016-10-13] MEDS ORDERED: FENTANYL PF 100 MCG/2 ML VIAL. IV PRN ×5 (12:30→20:30)
[2016-10-13] MEDS ORDERED: MORPHINE SULFATE 2 MG/ML DISP.SYRIN. IV PRN (12:30)
[2016-10-13] MEDS ORDERED: MORPHINE SULFATE 4 MG/ML DISP.SYRIN. IV PRN (13:00)
[2016-10-13] MEDS ORDERED: DIPHENHYDRAMINE 50 MG/ML VIAL IV PRN (13:00)
[2016-10-13] MEDS ORDERED: MEPERIDINE PF 25 MG/ML VIAL. IV PRN (13:00)
[2016-10-13] MEDS ORDERED: MIDAZOLAM HCL 2 MG/2 ML VIAL. IV PRN ×2 (13:00)
--- NOTE | 2016-10-13 13:24 | RAD ---
EXAM: Abdomen, single view. HISTORY: Nasogastric tube placement. COMPARISON: 10/13/2016 FINDINGS: Frontal views of the abdomen are obtained. No nasogastric tube is seen within the [id number]. There is a generator within the left buttock with leads extending cephalad to terminate at the mid thoracic vertebral levels. There is an IVC filter. There is an intraspinous decompression device at L3-L4. There are surgical clips within the pelvis. There are prominent air-filled loops of bowel throughout the abdomen. There is gaseous distention of the stomach. There is a moderate hiatal hernia. IMPRESSION: 1. No evidence of a nasogastric tube within the [id number]. This may be within the esophagus or airway proximal to the [id number]. Repeat examination following tube repositioning is recommended. 2. Distended air-filled loops of bowel throughout the abdomen and distended stomach. This is better characterized on the CT obtained earlier on the same date. No clear transition point is seen to suggest obstruction. 3. Hiatal hernia. 4. Note is made that portal venous gas demonstrated on the recent CT is not seen radiographically.
[2016-10-13] MEDS ORDERED: ROCURONIUM 50 MG/5 ML VIAL. ONE ×2 (13:27→16:19)
[2016-10-13] MEDS ORDERED: LIDOCAINE 2% 100 MG/5 ML DISP.SYRIN. ONE (13:27)
[2016-10-13] MEDS ORDERED: PROPOFOL 20 ML IV ONE (13:27)
[2016-10-13] MEDS ORDERED: FENTANYL PF 100 MCG/2 ML VIAL. ONE ×5 (13:27→19:17)
[2016-10-13] MEDS: FENTANYL PF 100 MCG/2 ML VIAL. IV PRN ×2 (13:29→20:51)
[2016-10-13] MEDS: IV RINGERS,LACTATED 1000ML 1,000 ML IV SCH ×2 (13:30→20:48)
[2016-10-13] MEDS ORDERED: EPHEDRINE SULFATE 50 MG/ML VIAL. ONE (14:00)
[2016-10-13] MEDS ORDERED: PHENYLEPHRINE in 0.9% NACL PF 1 MG/10 ML DISP.SYRIN. IV ONE ×2 (14:25→18:14)
[2016-10-13] MEDS ORDERED: DESFLURANE 61 TO 120 MINUTES IH ONE (14:25)
[2016-10-13] MEDS ORDERED: FAMOTIDINE 20 MG/2 ML VIAL ONE (14:25)
[2016-10-13] MEDS ORDERED: DEXAMETHASONE SOD PHOS 20 MG/5 ML VIAL. ONE (14:25)
[2016-10-13] MEDS ORDERED: DESFLURANE > 120 MINUTES IH ONE (16:53)
[2016-10-13] MEDS ORDERED: NEOSTIGMINE METHYLSULFATE 5 MG/5 ML SYRINGE. ONE (17:00)
[2016-10-13] MEDS ORDERED: GLYCOPYRROLATE 1 MG/5 ML VIAL. ONE (17:00)
[2016-10-13] MEDS: TAMSULOSIN 0.4 MG CAP.ER.24H. PO SCH (20:22)
[2016-10-13] MEDS: SIMVASTATIN 20 MG TABLET PO SCH (20:23)
[2016-10-14] VITALS (17 sets, daily range): BP systolic 87–144; BP diastolic 55–78
[2016-10-14] MEDS: FENTANYL PF 100 MCG/2 ML VIAL. IV PRN ×4 (00:49→12:02)
[2016-10-14] MEDS: PIPERACILLIN/TAZOBACTAM 3.375 GM in IV NORMAL SALINE 50ML 50 ML IV SCH ×4 (00:50→17:50)
[2016-10-14] MEDS: IV DEXTROSE 5 %-0.45 % NACL 1,000 ML IV SCH (05:54)
[2016-10-14 06:20] LABS: BASO # 0.1 x10^3/uL (0.0-0.2); BASO % 1 % (0-3); EOS % 0 % (0-3); HEMATOCRIT 30.8 % (39.0-53.0); HEMOGLOBIN 9.8 g/dL (13.0-17.5); LYMPH # 1.1 x10^3/uL (1.0-4.8); LYMPH % 10 % (24-48); MEAN CORPUSCULAR HEMOGLOBIN 32 pg (25-35); MEAN CORPUSCULAR HGB CONC 32 g/dL (31-37); MEAN CORPUSCULAR VOLUME 101 fL (79-100); MONO % 6 % (0-9); NEUT % 83 % (31-73); PLATELET COUNT 371 x10^3/uL (140-400); RED BLOOD COUNT 3.05 x10^6/uL (4.30-5.70); RED CELL DISTRIBUTION WIDTH 15.6 % (11.5-14.5); WHITE BLOOD COUNT 11.4 x10^3/uL (4.0-11.0)
[2016-10-14 06:45] LABS: CALCIUM 8.1 mg/dL (8.5-10.1); CREATININE 1.8 mg/dL (0.7-1.3); POTASSIUM 5.5 mmol/L (3.5-5.1)
[2016-10-14] MEDS: LEVOTHYROXINE 100 MCG TABLET PO SCH (07:00)
--- NOTE | 2016-10-14 08:19 | PDOC ---
Infectious Disease Note Subjective Subjective pt feeling better, had exp lap ROS ROS GEN: Denies fevers, chills, sweats HEENT: Denies blurred vision, sore throat CV: Denies chest pain RESP: Denies shortness of air, cough NEURO: Denies confusion, dizziness Vital Sign Vital Signs Vital Signs Date Time Temp Pulse Resp B/P Pulse Ox O2 Delivery O2 Flow Rate FiO2 10/14/16 05:59 101 21 131/60 99 10/14/16 04:41 Nasal Cannula 3.0 10/13/16 19:43 97.4 97.4 Physical Exam PHYSICAL EXAM GENERAL: NAD, Alert NG in place HEENT: PERRL, OC/OP NECK: Supple, no JVD, no LN LUNGS: Clear HEART: S1S2, no gallop, no murmur ABD: Soft, NT, no organomegaly, no rebound EXT: No edema, no cyanosis DESIGN LEAD: Alert, 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, no focal neurologic deficit SKIN: No rash IV: ok Labs Lab Laboratory Tests Test 10/13/16 10:00 10/14/16 06:05 Urine Collection Type Unknown Urine Color Yellow Urine Clarity Clear Urine pH 6.0 Urine Specific [place] 1.025 Urine Protein Negativemg/dL (NEG-TRACE) Urine Glucose (UA) Negativemg/dL (NEG) Urine Ketones (Stick) Tracemg/dL (NEG) Urine Blood Negative (NEG) Urine Nitrite Negative (NEG) Urine Bilirubin Negative (NEG) Urine Urobilinogen Dipstick 0.2mg/dL (0.2 mg/dL) Urine Leukocyte Esterase Negative (NEG) Urine RBC Occ/HPF (0-2) Urine WBC Occ/HPF (0-4) Urine Squamous Epithelial Cells Few/LPF Urine Bacteria 0/HPF (0-FEW) Urine Mucus Slight/LPF White Blood Count 11.4x10^3/uL (4.0-11.0) Red Blood Count 3.05x10^6/uL (4.30-5.70) Hemoglobin 9.8g/dL (13.0-17.5) Hematocrit 30.8% (39.0-53.0) Mean Corpuscular Volume 101fL (79-100) Mean Corpuscular Hemoglobin 32pg (25-35) Mean Corpuscular Hemoglobin Concent 32g/dL (31-37) Red Cell Distribution Width 15.6% (11.5-14.5) Platelet Count 371x10^3/uL (140-400) Neutrophils (%) (Auto) 83% (31-73) Lymphocytes (%) (Auto) 10% (24-48) Monocytes (%) (Auto) 6% (0-9) Eosinophils (%) (Auto) 0% (0-3) Basophils (%) (Auto) 1% (0-3) Neutrophils # (Auto) 9.5x10^3uL (1.8-7.7) Lymphocytes # (Auto) 1.1x10^3/uL (1.0-4.8) Monocytes # (Auto) 0.7x10^3/uL (0.0-1.1) Eosinophils # (Auto) 0.0x10^3/uL (0.0-0.7) Basophils # (Auto) 0.1x10^3/uL (0.0-0.2) Sodium Level 138mmol/L (136-145) Potassium Level 5.5mmol/L (3.5-5.1) Chloride Level 104mmol/L (98-107) Carbon Dioxide Level 27mmol/L (21-32) Anion Gap 7 (6-14) Blood Urea Nitrogen 46mg/dL (8-26) Creatinine 1.8mg/dL (0.7-1.3) Estimated GFR (Cockcroft-Gault) 36.0 Glucose Level 175mg/dL (70-99) Calcium Level 8.1mg/dL (8.5-10.1) Objective Assessment Fever - better TAYLOR Klebsiella UTI 10/04 although a lot of squamous cells present on UA Small bowel obstruction - Hiatal hernia + MRSA Cipro allergy. Seizure disorder Parkinson's disease Abdominal pain, s/p Exp lap Plan Plan of Care supportive care mark anthony d/w OMI VELASQUEZ MD Oct 14, 2016 08:19
--- NOTE | 2016-10-14 08:43 | PDOC ---
PROGRESS NOTES Subjective Subjective feels better. alert. had exploratory laparotomy yesterday and findings discussed with dr. [email or web address] reviewed. potassium 5.5 and bun and creatinine noted. Objective Objective Vital Signs Date Time Temp Pulse Resp B/P Pulse Ox O2 Delivery O2 Flow Rate FiO2 10/14/16 05:59 101 21 131/60 99 10/14/16 04:41 Nasal Cannula 3.0 10/13/16 19:43 97.4 97.4 Intake and Output 10/14/16 07:00 Intake Total 1056 ml Output Total 1835 ml Balance -779 ml IV Total 1056 ml Output Urine Total 685 ml Gastric Drainage Total 900 ml Emesis 100 ml Estimated Blood Loss 150 ml Physical Exam Abdomen: Other (dry dressing) Heart: Regular rate, Normal S1, Normal S2 Extremities: Other (trace edema ankles) General: Alert HEENT: Atraumatic Lungs: Other (clear anteriorly) Neuro: Normal speech Psych/Mental Status: Mood NL Skin: No rashes Assessment Assessment Problems Medical Problems:Small-bowel obstruction resolved exploratory laparotomy 10/13/16 2. Seizure disorder. 3. Parkinson's disease. 4. Hypothyroidism. 5. Peripheral neuropathy. 6. Hypertension. BP high 7. Chronic kidney disease stage III. klebsiella uti treated suspect gout. synovitis of left hand and wrist resolved peripheral edema improved critical illness myopathy hematemesis-ng aspirate brown leukocytosis better hyperkalemia (1) SBO (small bowel obstruction) Status: Acute Plan Plan of Care npo ng suction iv fluids without kcl consult nephrology iv keppra iv protonix Comment Review of Relevant I have reviewed the following items [place] (where applicable) has been applied. Labs Laboratory Tests Test 10/13/16 07:00 10/13/16 10:00 10/14/16 06:05 White Blood Count 17.5x10^3/uL (4.0-11.0) 11.4x10^3/uL (4.0-11.0) Red Blood Count 3.45x10^6/uL (4.30-5.70) 3.05x10^6/uL (4.30-5.70) Hemoglobin 11.1g/dL (13.0-17.5) 9.8g/dL (13.0-17.5) Hematocrit 34.9% (39.0-53.0) 30.8% (39.0-53.0) Mean Corpuscular Volume 101fL (79-100) 101fL (79-100) Mean Corpuscular Hemoglobin 32pg (25-35) 32pg (25-35) Mean Corpuscular Hemoglobin Concent 32g/dL (31-37) 32g/dL (31-37) Red Cell Distribution Width 15.2% (11.5-14.5) 15.6% (11.5-14.5) Platelet Count 338x10^3/uL (140-400) 371x10^3/uL (140-400) Neutrophils (%) (Auto) 92% (31-73) 83% (31-73) Lymphocytes (%) (Auto) 5% (24-48) 10% (24-48) Monocytes (%) (Auto) 3% (0-9) 6% (0-9) Eosinophils (%) (Auto) 0% (0-3) 0% (0-3) Basophils (%) (Auto) 0% (0-3) 1% (0-3) Neutrophils # (Auto) 16.1x10^3uL (1.8-7.7) 9.5x10^3uL (1.8-7.7) Lymphocytes # (Auto) 0.8x10^3/uL (1.0-4.8) 1.1x10^3/uL (1.0-4.8) Monocytes # (Auto) 0.6x10^3/uL (0.0-1.1) 0.7x10^3/uL (0.0-1.1) Eosinophils # (Auto) 0.0x10^3/uL (0.0-0.7) 0.0x10^3/uL (0.0-0.7) Basophils # (Auto) 0.0x10^3/uL (0.0-0.2) 0.1x10^3/uL (0.0-0.2) Segmented Neutrophils % 82% (35-66) Band Neutrophils % 12% (0-9) Lymphocytes % 2% (24-48) Monocytes % 4% (0-10) Platelet Estimate Adequate (ADEQUATE) Anisocytosis Slight Sodium Level 137mmol/L (136-145) 138mmol/L (136-145) Potassium Level 5.4mmol/L (3.5-5.1) 5.5mmol/L (3.5-5.1) Chloride Level 101mmol/L (98-107) 104mmol/L (98-107) Carbon Dioxide Level 32mmol/L (21-32) 27mmol/L (21-32) Anion Gap 4 (6-14) 7 (6-14) Blood Urea Nitrogen 41mg/dL (8-26) 46mg/dL (8-26) Creatinine 1.6mg/dL (0.7-1.3) 1.8mg/dL (0.7-1.3) Estimated GFR (Cockcroft-Gault) 41.3 36.0 BUN/Creatinine Ratio 26 (6-20) Glucose Level 156mg/dL (70-99) 175mg/dL (70-99) Calcium Level 8.9mg/dL (8.5-10.1) 8.1mg/dL (8.5-10.1) Total Bilirubin 0.3mg/dL (0.2-1.0) Aspartate Amino Transf (AST/SGOT) 38U/L (15-37) Alanine Aminotransferase (ALT/SGPT) 17U/L (16-63) Alkaline Phosphatase 100U/L (46-116) Total Protein 7.3g/dL (6.4-8.2) Albumin 2.8g/dL (3.4-5.0) Albumin/Globulin Ratio 0.6 (1.0-1.7) Amylase Level 134U/L (25-115) Lipase 230U/L (73-393) Urine Collection Type Unknown Urine Color Yellow Urine Clarity Clear Urine pH 6.0 Urine Specific [place] 1.025 Urine Protein Negativemg/dL (NEG-TRACE) Urine Glucose (UA) Negativemg/dL (NEG) Urine Ketones (Stick) Tracemg/dL (NEG) Urine Blood Negative (NEG) Urine Nitrite Negative (NEG) Urine Bilirubin Negative (NEG) Urine Urobilinogen Dipstick 0.2mg/dL (0.2 mg/dL) Urine Leukocyte Esterase Negative (NEG) Urine RBC Occ/HPF (0-2) Urine WBC Occ/HPF (0-4) Urine Squamous Epithelial Cells Few/LPF Urine Bacteria 0/HPF (0-FEW) Urine Mucus Slight/LPF Laboratory Tests Test 10/13/16 10:00 10/14/16 06:05 Urine Collection Type Unknown Urine Color Yellow Urine Clarity Clear Urine pH 6.0 Urine Specific [place] 1.025 Urine Protein Negativemg/dL (NEG-TRACE) Urine Glucose (UA) Negativemg/dL (NEG) Urine Ketones (Stick) Tracemg/dL (NEG) Urine Blood Negative (NEG) Urine Nitrite Negative (NEG) Urine Bilirubin Negative (NEG) Urine Urobilinogen Dipstick 0.2mg/dL (0.2 mg/dL) Urine Leukocyte Esterase Negative (NEG) Urine RBC Occ/HPF (0-2) Urine WBC Occ/HPF (0-4) Urine Squamous Epithelial Cells Few/LPF Urine Bacteria 0/HPF (0-FEW) Urine Mucus Slight/LPF White Blood Count 11.4x10^3/uL (4.0-11.0) Red Blood Count 3.05x10^6/uL (4.30-5.70) Hemoglobin 9.8g/dL (13.0-17.5) Hematocrit 30.8% (39.0-53.0) Mean Corpuscular Volume 101fL (79-100) Mean Corpuscular Hemoglobin 32pg (25-35) Mean Corpuscular Hemoglobin Concent 32g/dL (31-37) Red Cell Distribution Width 15.6% (11.5-14.5) Platelet Count 371x10^3/uL (140-400) Neutrophils (%) (Auto) 83% (31-73) Lymphocytes (%) (Auto) 10% (24-48) Monocytes (%) (Auto) 6% (0-9) Eosinophils (%) (Auto) 0% (0-3) Basophils (%) (Auto) 1% (0-3) Neutrophils # (Auto) 9.5x10^3uL (1.8-7.7) Lymphocytes # (Auto) 1.1x10^3/uL (1.0-4.8) Monocytes # (Auto) 0.7x10^3/uL (0.0-1.1) Eosinophils # (Auto) 0.0x10^3/uL (0.0-0.7) Basophils # (Auto) 0.1x10^3/uL (0.0-0.2) Sodium Level 138mmol/L (136-145) Potassium Level 5.5mmol/L (3.5-5.1) Chloride Level 104mmol/L (98-107) Carbon Dioxide Level 27mmol/L (21-32) Anion Gap 7 (6-14) Blood Urea Nitrogen 46mg/dL (8-26) Creatinine 1.8mg/dL (0.7-1.3) Estimated GFR (Cockcroft-Gault) 36.0 Glucose Level 175mg/dL (70-99) Calcium Level 8.1mg/dL (8.5-10.1) Microbiology 10/04/16 Blood Culture - Final, Complete NO GROWTH AFTER 5 DAYS 10/04/16 Urine Culture - Final, Complete 10/04/16 Urine Culture Result 1 (MANDEEP) - Final, Complete 10/04/16 Antimicrobic Susceptibility - Final, Complete Medications Current Medications Fentanyl Citrate 50 mcg 50 mcg PRN Q15MIN PRN IV PAIN GREATER THAN 3/10 Last administered on 09/30/16at 19:35; Start 09/30/16 at 17:30; Stop 10/01/16 at 04 :24; Status DC Lactated Ringer's (Iv Lactated Ringers) 1,000 ml @ 100 mls/hr Q10H IV Last administered on 09/30/16at 19:35; Start 09/30/16 at 17:28; Stop 10/01/16 at 03 :27; Status DC Ondansetron HCl (Zofran) 4 mg 1X ONCE IV Last administered on 09/30/16at 17:44 ; Start 09/30/16 at 17:30; Stop 09/30/16 at 17:32; Status DC Fentanyl Citrate (Fentanyl 2ml Vial) 50 mcg 1X ONCE IV ; Start 09/30/16 at 19: 15; Stop 10/01/16 at 04:24; Status DC Ondansetron HCl (Zofran) 4 mg PRN Q8HRS PRN IV NAUSEA/VOMITING Last administered on 09/30/16at 22:07; Start 09/30/16 at 19:15; Stop 10/01/16 at 19 :14; Status DC Fentanyl Citrate 50 mcg 50 mcg PRN Q2HR PRN IV PAIN Last administered on at 16:54; Start 09/30/16 at 19:15; Stop 10/01/16 at 19:14; Status DC Sodium Chloride 1,000 ml @ 100 mls/hr Q10H IV ; Start 09/30/16 at 19:30; Stop 10/01/16 at 04:24; Status DC Potassium Chloride/Dextrose/ Sod Cl (KCl 20 Meq In D5W-1/2 NS) 1,000 ml @ 125 mls/hr Q8H IV Last administered on 10/04/16at 06:02; Start 09/30/16 at 20:00; Stop 10/04/16 at 10:21; Status DC Enoxaparin Sodium 40 mg 40 mg Q24H SQ Last administered on 10/13/16 08:14; Start 10/01/16 at 09:00; Stop 10/13/16 at 08:36; Status DC Levetiracetam/ Sodium Chloride (Keppra/Iv Sodium Chloride 0.9% 100ml) 105 ml @ 400 mls/hr Q12HR IV Last administered on 10/05/16 09:30; Start 09/30/16 at 21: 00; Stop 10/05/16 at 10:24; Status DC Morphine Sulfate 2 mg PRN Q4HRS PRN IV SEVERE PAIN Last administered on 10:13; Start 09/30/16 at 19:30; Stop 10/05/16 at 10:24; Status DC Acetaminophen (Tylenol) 650 mg PRN Q6HRS PRN RI MILD PAIN / TEMP; Start at 19:30; Stop 10/05/16 at 10:24; Status DC Ondansetron HCl (Zofran) 4 mg PRN Q6HRS PRN IV NAUSEA/VOMITING Last administered on 10/07/16 08:28; Start 09/30/16 at 19:30; Stop 10/09/16 at 12:08 ; Status DC Benzocaine (Hurricaine One) 1 spray STK-MED ONCE .ROUTE ; Start 09/30/16 at 19: 51; Stop 09/30/16 at 19:52; Status DC Morphine Sulfate 4 mg PRN Q4HRS PRN IV PAIN Last administered on 10/05/16 08:08 ; Start 10/01/16 at 20:00; Stop 10/05/16 at 10:24; Status DC Clonidine HCl 1 patch 1 patch WEEKLY TD Last administered on 10/03/16at 12:30; Start 10/03/16 at 10:00; Stop 10/05/16 at 10:24; Status DC Piperacillin Sod/ Tazobactam Sod/ Sodium Chloride (Zosyn/Iv Sodium Chloride 0.9 % 50ml) 50 ml @ 100 mls/hr Q6HRS IV Last administered on 10/09/16 06:26; Start 10/04/16 at 11:00; Stop 10/09/16 at 10:55; Status DC Vancomycin HCl 1 each 1 each PRN DAILY PRN MC SEE COMMENTS Last administered on 10/07/16 11:11; Start 10/04/16 at 10:15; Stop 10/07/16 at 11:28; Status DC Vancomycin HCl/ Sodium Chloride (Iv Sodium Chloride 0.9% 250ml) 250 ml @ 250 mls/hr Q24H IV ; Start 10/04/16 at 10:15; Status UNV Labetalol HCl (Normodyne) 20 mg PRN Q6HRS PRN IVP HYPERTENSION, SEE COMMENTS; Start 10/04/16 at 10:15; Stop 10/05/16 at 10:24; Status DC Hydralazine HCl 10 mg 10 mg PRN Q6HRS PRN IVP ELEVATED BP, SEE COMMENTS Last administered on 10/06/16 19:17; Start 10/04/16 at 10:15; Stop 10/12/16 at 10:40 ; Status DC Amino Acids/ Glycerin/ Electrolytes 1,000 ml @ 40 mls/hr Q24H IV Last administered on 10/06/16 09:59; Start 10/04/16 at 10:15; Stop 10/07/16 at 09:06 ; Status DC Vancomycin HCl 2 gm/Sodium Chloride 500 ml @ 250 mls/hr 1X ONCE IV Last administered on 10/04/16at 11:26; Start 10/04/16 at 10:45; Stop 10/04/16 at 12 :44; Status DC Vancomycin HCl/ Sodium Chloride (Iv Sodium Chloride 0.9% 500ml Bag) 500 ml @ 250 mls/hr Q24H IV Last administered on 10/06/16 11:47; Start 10/05/16 at 12:00 ; Stop 10/07/16 at 11:28; Status DC Vancomycin HCl 1 each 1X ONCE MC Last administered on 10/06/16 11:30; Start at 11:30; Stop 10/06/16 at 11:31; Status DC Aspirin (Children'S Aspirin) 81 mg [id number] PO Last administered on 10/13/16 08:15; Start 10/05/16 at 11:00; Stop 10/13/16 at 08:29; Status DC Gabapentin (Neurontin) 600 mg QID PO Last administered on 10/13/16 08:14; Start 10/05/16 at 13:00 Levetiracetam (Keppra) 250 mg BID PO Last administered on 10/13/16 08:17; Start 10/05/16 at 11:00 Levothyroxine Sodium (Synthroid) 100 mcg [id number] PO Last administered on 05:08; Start 10/05/16 at 10:30 Metoprolol Succinate (Toprol Xl) 25 mg DAILY PO Last administered on 10/13/16 08:16; Start 10/05/16 at 11:00 Pramipexole Dihydrochloride (miraPEX) 0.5 mg [id number] PO Last administered on 10/13 08:15; Start 10/05/16 at 11:00 Simvastatin (Zocor) 20 mg HS PO Last administered on 10/12/16 21:07; Start 10/05 at 21:00 Carbidopa/Levodopa (Sinemet Cr) 1 tab.sa TID PO Last administered on 10/13/16 08:16; Start 10/05/16 at 11:00 Tamsulosin HCl (Flomax) 0.4 mg QHS PO Last administered on 10/12/16 21:07; Start 10/05/16 at 21:00 Tramadol HCl (Ultram) 50 mg QID PO Last administered on 10/13/16 08:17; Start 10/05/16 at 13:00 Acetaminophen (Tylenol) 650 mg PRN Q4HRS PRN PO MILD PAIN / TEMP Last administered on 10/13/16 00:17; Start 10/05/16 at 10:15 Prednisone (Prednisone) 20 mg 1X ONCE PO Last administered on 10/06/16 11:01; Start 10/06/16 at 10:30; Stop 10/06/16 at 10:31; Status DC Prednisone (Prednisone) 10 mg DAILY08 PO Last administered on 10/13/16 08:15; Start 10/07/16 at 08:00; Stop 10/13/16 at 08:29; Status DC Al Hydroxide/Mg Hydroxide (Mylanta Plus Xs) 30 ml PRN Q4HRS PRN PO HEARTBURN / GAS Last administered on 10/12/16 21:07; Start 10/07/16 at 08:45 Pantoprazole Sodium (Protonix) 40 mg DAILYAC PO Last administered on 10/13/16 05:08; Start 10/07/16 at 10:00; Stop 10/13/16 at 06:45; Status DC Furosemide 40 mg 40 mg DAILY PO Last administered on 10/08/16 08:42; Start 10/07 at 10:00; Stop 10/08/16 at 08:56; Status DC Sodium Chloride (Iv Sodium Chloride 0.45%) 1,000 ml @ 60 mls/hr CONT PRN IV . ; Start 10/08/16 at 09:00; Stop 10/08/16 at 16:06; Status DC Bisacodyl 10 mg 10 mg 1X ONCE RI Last administered on 10/08/16 10:11; Start at 09:30; Stop 10/08/16 at 09:31; Status DC Sodium Chloride (Iv Sodium Chloride 0.45%) 1,000 ml @ 60 mls/hr [id number] IV Last administered on 10/09/16 02:52; Start 10/08/16 at 10:15; Stop 10/09/16 at 12: 00; Status DC Cefpodoxime Proxetil (Vantin) 200 mg BID PO ; Start 10/09/16 at 11:00; Stop at 12:08; Status DC Cefpodoxime Proxetil (Vantin) 100 mg BID PO Last administered on 10/13/16 08:16 ; Start 10/09/16 at 21:00; Stop 10/13/16 at 08:29; Status DC Ondansetron HCl (Zofran) 4 mg STK-MED ONCE .ROUTE Last administered on 01:24; Start 10/13/16 at 01:19; Stop 10/13/16 at 01:20; Status DC Ondansetron HCl (Zofran) 4 mg PRN Q6HRS PRN IV NAUSEA/VOMITING Last administered on 10/13/16 09:26; Start 10/13/16 at 02:00 Pantoprazole Sodium 40 mg 40 mg DAILYAC IVP Last administered on 10/13/16 08:15 ; Start 10/13/16 at 07:30 Dextrose/Sodium Chloride (Iv D5% - NS) 1,000 ml @ 60 mls/hr [id number] IV Last administered on 10/13/16 09:25; Start 10/13/16 at 08:30; Stop 10/13/16 at 11:01; Status DC Sodium Polystyrene Sulfonate 15 gm 15 gm 1X ONCE PO Last administered on 09:26; Start 10/13/16 at 08:30; Stop 10/13/16 at 08:31; Status DC Piperacillin Sod/ Tazobactam Sod 3.375 gm/Sodium Chloride 50 ml @ 100 mls/hr Q6HRS IV Last administered on 10/14/16 05:52; Start 10/13/16 at 09:00 Dextrose/Sodium Chloride (Iv D5% - 1/2 NS) 1,000 ml @ 80 mls/hr [id number] IV Last administered on 10/14/16 05:54; Start 10/13/16 at 11:00 Ondansetron HCl (Zofran) 4 mg PRN Q6HRS PRN IV Nausea 1ST CHOICE; Start at 12:30; Stop 10/14/16 at 12:29 Fentanyl Citrate (Fentanyl 2ml Vial) 25 mcg PRN Q5MIN PRN IV MILD PAIN; Start 10/13/16 at 12:30; Stop 10/14/16 at 12:29 Fentanyl Citrate (Fentanyl 2ml Vial) 50 mcg PRN Q5MIN PRN IV MODERATE PAIN; Start 10/13/16 at 12:30; Stop 10/14/16 at 12:29 Morphine Sulfate 1 mg 1 mg PRN Q10MIN PRN IV SEVERE PAIN; Start 10/13/16 at 12: 30; Stop 10/14/16 at 12:29 Lactated Ringer's (Iv Lactated Ringers) 1,000 ml @ 0 mls/hr Q0M IV ; Start 10/13 at 12:17; Stop 10/14/16 at 00:16; Status DC Lidocaine HCl 2 ml 1X PRN PRN ID IV START; Start 10/13/16 at 12:30; Stop at 16:03; Status DC Hydromorphone HCl (Dilaudid) 0.5 mg PRN Q10MIN PRN IV SEV PAIN,Second choice; Start 10/13/16 at 12:30; Stop 10/14/16 at 12:29 Prochlorperazine Edisylate (Compazine) 5 mg PACU PRN PRN IV NAUSEA; Start at 12:30; Stop 10/14/16 at 12:29 Fentanyl Citrate (Fentanyl 2ml Vial) 50 mcg PRN Q5MIN PRN IV Acute Pain Last administered on 10/13/16t 13:29; Start 10/13/16 at 13:00; Stop 10/14/16 at 12:59 Morphine Sulfate 4 mg PRN Q10MIN PRN IV Moderate Pain; Start 10/13/16 at 13:00; Stop 10/14/16 at 12:59 Hydromorphone HCl (Dilaudid) 0.4 mg PRN Q10MIN PRN IV Moderate to severe pain; Start 10/13/16 at 13:00; Stop 10/14/16 at 12:59 Meperidine HCl (Demerol) 12.5 mg PRN Q5MIN PRN IV SHIVERING; Start 10/13/16 at 13:00; Stop 10/14/16 at 12:59 Prochlorperazine Edisylate (Compazine) 5 mg PRN Q6HRS PRN IV Nausea/Vomiting, 1st Choice; Start 10/13/16 at 13:00; Stop 10/14/16 at 12:59 Diphenhydramine HCl (Benadryl) 12.5 mg PRN Q2HR PRN IV ITCHING; Start 10/13/16 at 13:00; Stop 10/14/16 at 12:59 Midazolam HCl (Versed) 2 mg PRN 1X PRN IV PRIOR TO PROCEDURE; Start 10/13/16 at 13:00; Stop 10/14/16 at 12:59 Midazolam HCl (Versed) 1 mg PRN 1X PRN IV PRIOR TO PROCEDURE; Start 10/13/16 at 13:00; Stop 10/14/16 at 12:59 Fentanyl Citrate (Fentanyl 2ml Vial) 25 mcg PRN Q5MIN PRN IV X 2 DOSES FOR PAIN ; Start 10/13/16 at 13:00; Stop 10/14/16 at 12:59 Fentanyl Citrate 50 mcg 50 mcg PRN Q5MIN PRN IV X 2 DOSES FOR PAIN; Start at 13:00; Stop 10/14/16 at 12:59 Lactated Ringer's (Iv Lactated Ringers) 1,000 ml @ 125 mls/hr Q8H IV Last administered on 10/13/16t 13:30; Start 10/13/16 at 12:48; Stop 10/14/16 at 00:47; Status DC Lidocaine HCl 2 ml 1X PRN PRN ID IV START; Start 10/13/16 at 13:00; Stop at 16:03; Status DC Fentanyl Citrate (Fentanyl 2ml Vial) 25 mcg PRN Q2HR PRN IV PAIN MOD TO SEV; Start 10/13/16 at 20:30 Fentanyl Citrate (Fentanyl 2ml Vial) 50 mcg PRN Q2HR PRN IV PAIN MOD TO SEV Last administered on 10/14/16t 04:11; Start 10/13/16 at 20:30 Enoxaparin Sodium (Lovenox 40mg Syringe) 40 mg Q24H SQ ; Start 10/14/16 at 09:00 Fentanyl Citrate 100 mcg 100 mcg STK-MED ONCE .ROUTE ; Start 10/13/16 at 13:27; Stop 10/14/16 at 07:31; Status DC Propofol (Diprivan) 20 ml @ As Directed STK-MED ONCE IV ; Start 10/13/16 at 13:27 ; Stop 10/14/16 at 07:31; Status DC Rocuronium [place] (Zemuron) 50 mg STK-MED ONCE .ROUTE ; Start 10/13/16 at 13:27 ; Stop 10/14/16 at 07:31; Status DC Lidocaine HCl 100 mg STK-MED ONCE .ROUTE ; Start 10/13/16 at 13:27; Stop at 07:31; Status DC Fentanyl Citrate (Fentanyl 2ml Vial) 100 mcg STK-MED ONCE .ROUTE ; Start at 13:27; Stop 10/14/16 at 07:31; Status DC Ephedrine Sulfate (Akovaz) 50 mg STK-MED ONCE .ROUTE ; Start 10/13/16 at 14:00; Stop 10/14/16 at 07:31; Status DC Phenylephrine HCl 1 mg STK-MED ONCE IV ; Start 10/13/16 at 14:25; Stop 10/14/16 at 07:31; Status DC Desflurane (Suprane) 60 ml STK-MED ONCE IH ; Start 10/13/16 at 14:25; Stop at 07:31; Status DC Dexamethasone Sodium Phosphate (Decadron) 20 mg STK-MED ONCE .ROUTE ; Start 10/13 at 14:25; Stop 10/14/16 at 07:31; Status DC Ondansetron HCl (Zofran) 4 mg STK-MED ONCE .ROUTE ; Start 10/13/16 at 14:25; Stop 10/14/16 at 07:31; Status DC Famotidine (Pepcid) 20 mg STK-MED ONCE .ROUTE ; Start 10/13/16 at 14:25; Stop 07/21 at 07:31; Status DC Rocuronium [place] (Zemuron) 50 mg STK-MED ONCE .ROUTE ; Start 10/13/16 at 16:19 ; Stop 10/14/16 at 07:31; Status DC Fentanyl Citrate (Fentanyl 2ml Vial) 100 mcg STK-MED ONCE .ROUTE ; Start at 16:21; Stop 10/14/16 at 07:31; Status DC Desflurane (Suprane) 90 ml STK-MED ONCE IH ; Start 10/13/16 at 16:53; Stop at 07:31; Status DC Glycopyrrolate (Robinul) 1 mg STK-MED ONCE .ROUTE ; Start 10/13/16 at 17:00; Stop 10/14/16 at 07:31; Status DC Neostigmine Methylsulfate 5 mg STK-MED ONCE .ROUTE ; Start 10/13/16 at 17:00; Stop 10/14/16 at 07:31; Status DC Phenylephrine HCl 1 mg STK-MED ONCE IV ; Start 10/13/16 at 18:14; Stop 10/14/16 at 07:31; Status DC Fentanyl Citrate (Fentanyl 2ml Vial) 100 mcg STK-MED ONCE .ROUTE ; Start at 18:20; Stop 10/14/16 at 07:31; Status DC Fentanyl Citrate (Fentanyl 2ml Vial) 100 mcg STK-MED ONCE .ROUTE ; Start at 19:17; Stop 10/14/16 at 07:31; Status DC Active Scripts Active Hydrocodone-Apap 5-325 (Hydrocodone Bit/Acetaminophen) 1 Each Tablet 1 Tab PO PRN Q6HRS PRN Metoprolol Succinate ( Xl ) (Metoprolol Succinate) 25 Mg Tab.er.24h 25 Mg PO DAILY Reported Flomax (Tamsulosin Hcl) 0.4 Mg Cap.er.24h 1 Cap PO QHS Tramadol Hcl 100 Mg Tab.er.24h 100 Mg PO QID Levetiracetam 250 Mg Tablet 250 Mg PO BID Dulcolax (Bisacodyl) 10 Mg Supp.rect 10 Mg RC PRN DAILY PRN Maalox Advanced Suspension (Mag Hydrox/Al Hydrox/Simeth) 770 Ml Oral.susp 30 Ml PO Q2HR PRN Milk Of Magnesia (Magnesium Hydroxide) 400 Mg/5 Ml Oral.susp 30 Ml PO DAILY PRN Robitussin Cough-Chest Dm Liq (Guaifenesin/Dextromethorphan) 118 Ml Liquid 10 Ml PO Q4HRS PRN Trazodone Hcl 50 Mg Tablet 1 Tab PO QHS Tylenol (Acetaminophen) 325 Mg Tablet 650 Mg PO Q6HRS PRN Pramipexole Dihydrochloride (Pramipexole Di-Hcl) 0.5 Mg Tablet 0.5 Mg PO TID Simvastatin 20 Mg Tablet 1 Tab PO QHS Levothyroxine Sodium 100 Mcg Tablet 1 Tab PO DAILY Gabapentin 800 Mg Tablet 800 Mg PO QID Sinemet 25-100 Mg Tablet (Carbidopa/Levodopa) 1 Each Tablet 2 Tab PO TID Aspirin 81 Mg Tab.chew 1 Tab PO DAILY Vitals/I & O Vital Sign - Last 24 Hours 10/13/16 10/13/16 10/13/16 10/13/16 11:00 13:29 13:38 17:58 Temp 97.7 97.7 97.7 97.7 Pulse 74 80 Resp 16 15 15 B/P 113/53 126/65 Pulse Ox 93 96 92 O2 Delivery Nasal Cannula Nasal Cannula Nasal Cannula Nasal Cannula O2 Flow Rate 1.0 3.0 3.0 3.0 10/13/16 10/13/16 10/13/16 10/13/16 17:58 18:13 18:28 18:43 Temp 97.4 97.4 97.4 97.4 97.4 97.4 97.4 97.4 Pulse 87 95 94 95 Resp 20 19 18 15 B/P 126/65 122/64 120/61 122/64 Pulse Ox 96 94 94 95 O2 Delivery Nasal Cannula Simple Mask Simple Mask Simple Mask O2 Flow Rate 10 10 10 10 10/13/16 10/13/16 10/13/16 10/13/16 18:58 19:13 19:28 19:43 Temp 97.4 97.4 97.4 97.4 97.4 97.4 97.4 97.4 Pulse 96 96 95 92 Resp 15 15 15 15 B/P 134/66 136/65 127/66 122/69 Pulse Ox 95 96 93 95 O2 Delivery Simple Mask Simple Mask Simple Mask O2 Flow Rate 6 6 6 4 10/13/16 10/13/16 10/13/16 10/13/16 20:00 20:00 20:15 20:30 Pulse 98 98 96 Resp 16 16 16 B/P 116/66 129/69 120/65 Pulse Ox 96 96 98 O2 Delivery Nasal Cannula Nasal Cannula Nasal Cannula Nasal Cannula O2 Flow Rate 3.0 3.0 3.0 3.0 10/13/16 10/13/16 10/13/16 10/13/16 20:45 20:51 21:00 21:30 Pulse 98 96 96 Resp 16 16 15 16 B/P 127/77 117/59 115/62 Pulse Ox 98 98 100 96 O2 Delivery Nasal Cannula Nasal Cannula Nasal Cannula Nasal Cannula O2 Flow Rate 3.0 3.0 3.0 3.0 10/13/16 10/13/16 10/13/16 10/14/16 22:00 23:00 23:59 00:00 Pulse 122 96 80 Resp 17 26 20 B/P 116/62 107/67 102/60 Pulse Ox 98 97 98 O2 Delivery Nasal Cannula Nasal Cannula Nasal Cannula Nasal Cannula O2 Flow Rate 3.0 3.0 3.0 3.0 10/14/16 10/14/16 10/14/16 10/14/16 00:49 00:59 01:00 01:59 Pulse 98 96 99 Resp 20 B/P 117/68 117/68 122/69 Pulse Ox 99 99 98 98 O2 Delivery Nasal Cannula Nasal Cannula O2 Flow Rate 3.0 3.0 10/14/16 10/14/16 10/14/16 10/14/16 02:59 03:59 04:11 04:41 Pulse 103 41 Resp 19 20 B/P 125/66 87/55 Pulse Ox 99 92 100 99 O2 Delivery Nasal Cannula Nasal Cannula O2 Flow Rate 3.0 3.0 10/14/16 10/14/16 04:59 05:59 Pulse 98 101 Resp 20 21 B/P 128/64 131/60 Pulse Ox 98 99 Intake and Output 10/13/16 10/13/16 10/14/16 15:00 23:00 07:00 Intake Total 1056 ml Output Total 100 ml 1500 ml 235 ml Balance -100 ml -1500 ml 821 ml RICHARD [place] MD Oct 14, 2016 08:43
--- NOTE | 2016-10-14 09:00 | PDOC ---
Subjective: Subjective: Per pt - feels better today. Objective: Objective: D/w RN - had exp lap, no recurrent hematemesis. Vital Signs: Vital Signs Date Time Temp Pulse Resp B/P Pulse Ox O2 Delivery O2 Flow Rate FiO2 10/14/16 05:59 101 21 131/60 99 10/14/16 04:41 Nasal Cannula 3.0 10/13/16 19:43 97.4 97.4 Labs: Laboratory Tests Test 10/13/16 10:00 10/14/16 06:05 Urine Collection Type Unknown Urine Color Yellow Urine Clarity Clear Urine pH 6.0 Urine Specific [place] 1.025 Urine Protein Negativemg/dL Urine Glucose (UA) Negativemg/dL Urine Ketones (Stick) Tracemg/dL Urine Blood Negative Urine Nitrite Negative Urine Bilirubin Negative Urine Urobilinogen Dipstick 0.2mg/dL Urine Leukocyte Esterase Negative Urine RBC Occ/HPF Urine WBC Occ/HPF Urine Squamous Epithelial Cells Few/LPF Urine Bacteria 0/HPF Urine Mucus Slight/LPF White Blood Count 11.4x10^3/uL Red Blood Count 3.05x10^6/uL Hemoglobin 9.8g/dL Hematocrit 30.8% Mean Corpuscular Volume 101fL Mean Corpuscular Hemoglobin 32pg Mean Corpuscular Hemoglobin Concent 32g/dL Red Cell Distribution Width 15.6% Platelet Count 371x10^3/uL Neutrophils (%) (Auto) 83% Lymphocytes (%) (Auto) 10% Monocytes (%) (Auto) 6% Eosinophils (%) (Auto) 0% Basophils (%) (Auto) 1% Neutrophils # (Auto) 9.5x10^3uL Lymphocytes # (Auto) 1.1x10^3/uL Monocytes # (Auto) 0.7x10^3/uL Eosinophils # (Auto) 0.0x10^3/uL Basophils # (Auto) 0.1x10^3/uL Sodium Level 138mmol/L Potassium Level 5.5mmol/L Chloride Level 104mmol/L Carbon Dioxide Level 27mmol/L Anion Gap 7 Blood Urea Nitrogen 46mg/dL Creatinine 1.8mg/dL Estimated GFR (Cockcroft-Gault) 36.0 Glucose Level 175mg/dL Calcium Level 8.1mg/dL Imaging: KUB 10/13/16 IMPRESSION: 1. No evidence of a nasogastric tube within the [id number]. This may be within the esophagus or airway proximal to the [id number]. Repeat examination following tube repositioning is recommended. 2. Distended air-filled loops of bowel throughout the abdomen and distended stomach. This is better characterized on the CT obtained earlier on the same date. No clear transition point is seen to suggest obstruction. 3. Hiatal hernia. 4. Note is made that portal venous gas demonstrated on the recent CT is not seen radiographically. CT A/P 10/13/16 IMPRESSION: 1. Distended loops of small bowel throughout the abdomen with superimposed stranding surrounding a segment of small bowel within the left abdomen. Given evidence of portal venous gas, this is concerning for segmental bowel ischemia/ infarction from partial obstruction or recently reduced obstruction. 2. Moderate to large hiatal hernia and distended stomach. 3. Findings consistent with partial bowel resection. 4. Bilateral lower lobe and lingular atelectasis, interstitial infiltrate or pleural-parenchymal scarring. 5. Renal atrophy. 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 Continue PPI. GAYLA CLEMENTE Oct 14, 2016 09:00
[2016-10-14] MEDS: PANTOPRAZOLE IV PUSH 40 MG VIAL. IVP SCH (09:23)
[2016-10-14] MEDS: ENOXAPARIN 40 MG/0.4 ML DISP.SYRIN. SQ SCH (09:24)
[2016-10-14] MEDS: LEVETIRACETAM 500 MG in IV NORMAL SALINE 100ML 100 ML IV SCH ×2 (10:03→22:06)
--- NOTE | 2016-10-14 11:03 | PDOC2 ---
CONSULT Date of Consult Date of Consult DATE: 10/14/16 TIME: 10:58 Reason for Consult Reason for Consult: RENAL FAILURE Referring Physician Referring Physician: CLEM Identification/Chief Complaint Chief Complaint ABD PAIN Source Source: Chart review History of Present Illness Reason for Visit: THIS IS AN 86 YR OLD WITH ABD PAIN AND PROBABLE SBO. HE UNDERWENT AN EXP LAP YESTERDAY. HIS CR IS 1.8. HE HAS CKD WITH BASELINE CR OF 1.3-1.5. HIS K IS 5.5. HE HAS MILD LEUCOCYTOSIS AND MILD HYPERKALEMIA. GI AND SURGERY EVAL ARE ONGOING AT THIS TIME. HE IS CONFUSED Past Medical History Cardiovascular: HTN, Hyperlipidemia Pulmonary: No pertinent hx, Other CENTRAL NERVOUS SYSTEM: Periperal neuropathy, Seizure GI: Other Heme/Onc: No pertinent hx Hepatobiliary: No pertinent hx Psych: No pertinent hx Musculoskeletal: low back pain, Weakness Rheumatologic: No pertinent hx Infectious disease: No pertinent hx Renal/: Chronic renal insuff Endocrine: Diabetes Past Surgical History Past Surgical History: Appendectomy, Other (exploration for release SBO, hernia repair) Family History Family History: No Significant Social History No ALCOHOL: none Drugs: None Lives: Shelter Current Problem List Problem List Problems Medical Problems: (1) SBO (small bowel obstruction) Status: Acute Current Medications Current Medications Current Medications Fentanyl Citrate 50 mcg 50 mcg PRN Q15MIN PRN IV PAIN GREATER THAN 3/10 Last administered on 09/30/16at 19:35; Start 09/30/16 at 17:30; Stop 10/01/16 at 04 :24; Status DC Lactated Ringer's (Iv Lactated Ringers) 1,000 ml @ 100 mls/hr Q10H IV Last administered on 09/30/16at 19:35; Start 09/30/16 at 17:28; Stop 10/01/16 at 03 :27; Status DC Ondansetron HCl (Zofran) 4 mg 1X ONCE IV Last administered on 09/30/16at 17:44 ; Start 09/30/16 at 17:30; Stop 09/30/16 at 17:32; Status DC Fentanyl Citrate (Fentanyl 2ml Vial) 50 mcg 1X ONCE IV ; Start 09/30/16 at 19: 15; Stop 10/01/16 at 04:24; Status DC Ondansetron HCl (Zofran) 4 mg PRN Q8HRS PRN IV NAUSEA/VOMITING Last administered on 09/30/16at 22:07; Start 09/30/16 at 19:15; Stop 10/01/16 at 19 :14; Status DC Fentanyl Citrate 50 mcg 50 mcg PRN Q2HR PRN IV PAIN Last administered on at 16:54; Start 09/30/16 at 19:15; Stop 10/01/16 at 19:14; Status DC Sodium Chloride 1,000 ml @ 100 mls/hr Q10H IV ; Start 09/30/16 at 19:30; Stop 10/01/16 at 04:24; Status DC Potassium Chloride/Dextrose/ Sod Cl (KCl 20 Meq In D5W-1/2 NS) 1,000 ml @ 125 mls/hr Q8H IV Last administered on 10/04/16at 06:02; Start 09/30/16 at 20:00; Stop 10/04/16 at 10:21; Status DC Enoxaparin Sodium 40 mg 40 mg Q24H SQ Last administered on 10/13/16 08:14; Start 10/01/16 at 09:00; Stop 10/13/16 at 08:36; Status DC Levetiracetam/ Sodium Chloride (Keppra/Iv Sodium Chloride 0.9% 100ml) 105 ml @ 400 mls/hr Q12HR IV Last administered on 10/05/16 09:30; Start 09/30/16 at 21: 00; Stop 10/05/16 at 10:24; Status DC Morphine Sulfate 2 mg PRN Q4HRS PRN IV SEVERE PAIN Last administered on 10:13; Start 09/30/16 at 19:30; Stop 10/05/16 at 10:24; Status DC Acetaminophen (Tylenol) 650 mg PRN Q6HRS PRN HI MILD PAIN / TEMP; Start at 19:30; Stop 10/05/16 at 10:24; Status DC Ondansetron HCl (Zofran) 4 mg PRN Q6HRS PRN IV NAUSEA/VOMITING Last administered on 10/07/16 08:28; Start 09/30/16 at 19:30; Stop 10/09/16 at 12:08 ; Status DC Benzocaine (Hurricaine One) 1 spray STK-MED ONCE .ROUTE ; Start 09/30/16 at 19: 51; Stop 09/30/16 at 19:52; Status DC Morphine Sulfate 4 mg PRN Q4HRS PRN IV PAIN Last administered on 10/05/16 08:08 ; Start 10/01/16 at 20:00; Stop 10/05/16 at 10:24; Status DC Clonidine HCl 1 patch 1 patch WEEKLY TD Last administered on 10/03/16at 12:30; Start 10/03/16 at 10:00; Stop 10/05/16 at 10:24; Status DC Piperacillin Sod/ Tazobactam Sod/ Sodium Chloride (Zosyn/Iv Sodium Chloride 0.9 % 50ml) 50 ml @ 100 mls/hr Q6HRS IV Last administered on 10/09/16 06:26; Start 10/04/16 at 11:00; Stop 10/09/16 at 10:55; Status DC Vancomycin HCl 1 each 1 each PRN DAILY PRN MC SEE COMMENTS Last administered on 10/07/16 11:11; Start 10/04/16 at 10:15; Stop 10/07/16 at 11:28; Status DC Vancomycin HCl/ Sodium Chloride (Iv Sodium Chloride 0.9% 250ml) 250 ml @ 250 mls/hr Q24H IV ; Start 10/04/16 at 10:15; Status UNV Labetalol HCl (Normodyne) 20 mg PRN Q6HRS PRN IVP HYPERTENSION, SEE COMMENTS; Start 10/04/16 at 10:15; Stop 10/05/16 at 10:24; Status DC Hydralazine HCl 10 mg 10 mg PRN Q6HRS PRN IVP ELEVATED BP, SEE COMMENTS Last administered on 10/06/16 19:17; Start 10/04/16 at 10:15; Stop 10/12/16 at 10:40 ; Status DC Amino Acids/ Glycerin/ Electrolytes 1,000 ml @ 40 mls/hr Q24H IV Last administered on 10/06/16 09:59; Start 10/04/16 at 10:15; Stop 10/07/16 at 09:06 ; Status DC Vancomycin HCl 2 gm/Sodium Chloride 500 ml @ 250 mls/hr 1X ONCE IV Last administered on 10/04/16at 11:26; Start 10/04/16 at 10:45; Stop 10/04/16 at 12 :44; Status DC Vancomycin HCl/ Sodium Chloride (Iv Sodium Chloride 0.9% 500ml Bag) 500 ml @ 250 mls/hr Q24H IV Last administered on 10/06/16 11:47; Start 10/05/16 at 12:00 ; Stop 10/07/16 at 11:28; Status DC Vancomycin HCl 1 each 1X ONCE MC Last administered on 10/06/16 11:30; Start at 11:30; Stop 10/06/16 at 11:31; Status DC Aspirin (Children'S Aspirin) 81 mg [id number] PO Last administered on 10/13/16 08:15; Start 10/05/16 at 11:00; Stop 10/13/16 at 08:29; Status DC Gabapentin (Neurontin) 600 mg QID PO Last administered on 10/13/16 08:14; Start 10/05/16 at 13:00; Stop 10/14/16 at 08:47; Status DC Levetiracetam (Keppra) 250 mg BID PO Last administered on 10/13/16 08:17; Start 10/05/16 at 11:00; Stop 10/14/16 at 08:47; Status DC Levothyroxine Sodium (Synthroid) 100 mcg DAILY07 PO Last administered on 05:08; Start 10/05/16 at 10:30; Stop 10/14/16 at 08:48; Status DC Metoprolol Succinate (Toprol Xl) 25 mg DAILY PO Last administered on 10/13/16 08:16; Start 10/05/16 at 11:00; Stop 10/14/16 at 08:47; Status DC Pramipexole Dihydrochloride (miraPEX) 0.5 mg [id number] PO Last administered on 10/13 08:15; Start 10/05/16 at 11:00; Stop 10/14/16 at 08:48; Status DC Simvastatin (Zocor) 20 mg HS PO Last administered on 10/12/16 21:07; Start 10/05 at 21:00; Stop 10/14/16 at 08:48; Status DC Carbidopa/Levodopa (Sinemet Cr) 1 tab.sa TID PO Last administered on 10/13/16 08:16; Start 10/05/16 at 11:00; Stop 10/14/16 at 08:48; Status DC Tamsulosin HCl (Flomax) 0.4 mg QHS PO Last administered on 10/12/16 21:07; Start 10/05/16 at 21:00; Stop 10/14/16 at 08:48; Status DC Tramadol HCl (Ultram) 50 mg QID PO Last administered on 10/13/16 08:17; Start 10/05/16 at 13:00; Stop 10/14/16 at 08:48; Status DC Acetaminophen (Tylenol) 650 mg PRN Q4HRS PRN PO MILD PAIN / TEMP Last administered on 10/13/16 00:17; Start 10/05/16 at 10:15; Stop 10/14/16 at 08:48; Status DC Prednisone (Prednisone) 20 mg 1X ONCE PO Last administered on 10/06/16 11:01; Start 10/06/16 at 10:30; Stop 10/06/16 at 10:31; Status DC Prednisone (Prednisone) 10 mg DAILY08 PO Last administered on 10/13/16 08:15; Start 10/07/16 at 08:00; Stop 10/13/16 at 08:29; Status DC Al Hydroxide/Mg Hydroxide (Mylanta Plus Xs) 30 ml PRN Q4HRS PRN PO HEARTBURN / GAS Last administered on 10/12/16 21:07; Start 10/07/16 at 08:45; Stop 10/14/16 at 08:48; Status DC Pantoprazole Sodium (Protonix) 40 mg DAILYAC PO Last administered on 10/13/16 05:08; Start 10/07/16 at 10:00; Stop 10/13/16 at 06:45; Status DC Furosemide 40 mg 40 mg DAILY PO Last administered on 10/08/16 08:42; Start 10/07 at 10:00; Stop 10/08/16 at 08:56; Status DC Sodium Chloride (Iv Sodium Chloride 0.45%) 1,000 ml @ 60 mls/hr CONT PRN IV . ; Start 10/08/16 at 09:00; Stop 10/08/16 at 16:06; Status DC Bisacodyl 10 mg 10 mg 1X ONCE HI Last administered on 10/08/16 10:11; Start at 09:30; Stop 10/08/16 at 09:31; Status DC Sodium Chloride (Iv Sodium Chloride 0.45%) 1,000 ml @ 60 mls/hr [id number] IV Last administered on 10/09/16 02:52; Start 10/08/16 at 10:15; Stop 10/09/16 at 12: 00; Status DC Cefpodoxime Proxetil (Vantin) 200 mg BID PO ; Start 10/09/16 at 11:00; Stop at 12:08; Status DC Cefpodoxime Proxetil (Vantin) 100 mg BID PO Last administered on 10/13/16 08:16 ; Start 10/09/16 at 21:00; Stop 10/13/16 at 08:29; Status DC Ondansetron HCl (Zofran) 4 mg STK-MED ONCE .ROUTE Last administered on 01:24; Start 10/13/16 at 01:19; Stop 10/13/16 at 01:20; Status DC Ondansetron HCl (Zofran) 4 mg PRN Q6HRS PRN IV NAUSEA/VOMITING Last administered on 10/13/16 09:26; Start 10/13/16 at 02:00 Pantoprazole Sodium 40 mg 40 mg DAILYAC IVP Last administered on 10/14/16 09: 23; Start 10/13/16 at 07:30 Dextrose/Sodium Chloride (Iv D5% - NS) 1,000 ml @ 60 mls/hr [id number] IV Last administered on 10/13/16 09:25; Start 10/13/16 at 08:30; Stop 10/13/16 at 11:01; Status DC Sodium Polystyrene Sulfonate 15 gm 15 gm 1X ONCE PO Last administered on 09:26; Start 10/13/16 at 08:30; Stop 10/13/16 at 08:31; Status DC Piperacillin Sod/ Tazobactam Sod 3.375 gm/Sodium Chloride 50 ml @ 100 mls/hr Q6HRS IV Last administered on 10/14/16 05:52; Start 10/13/16 at 09:00 Dextrose/Sodium Chloride (Iv D5% - 1/2 NS) 1,000 ml @ 125 mls/hr Q8H IV Last administered on 10/14/16 05:54; Start 10/13/16 at 11:00 Ondansetron HCl (Zofran) 4 mg PRN Q6HRS PRN IV Nausea 1ST CHOICE; Start at 12:30; Stop 10/14/16 at 12:29 Fentanyl Citrate (Fentanyl 2ml Vial) 25 mcg PRN Q5MIN PRN IV MILD PAIN; Start 10/13/16 at 12:30; Stop 10/14/16 at 12:29 Fentanyl Citrate (Fentanyl 2ml Vial) 50 mcg PRN Q5MIN PRN IV MODERATE PAIN; Start 10/13/16 at 12:30; Stop 10/14/16 at 12:29 Morphine Sulfate 1 mg 1 mg PRN Q10MIN PRN IV SEVERE PAIN; Start 10/13/16 at 12: 30; Stop 10/14/16 at 12:29 Lactated Ringer's (Iv Lactated Ringers) 1,000 ml @ 0 mls/hr Q0M IV ; Start 10/13 at 12:17; Stop 10/14/16 at 00:16; Status DC Lidocaine HCl 2 ml 1X PRN PRN ID IV START; Start 10/13/16 at 12:30; Stop at 16:03; Status DC Hydromorphone HCl (Dilaudid) 0.5 mg PRN Q10MIN PRN IV SEV PAIN,Second choice; Start 10/13/16 at 12:30; Stop 10/14/16 at 12:29 Prochlorperazine Edisylate (Compazine) 5 mg PACU PRN PRN IV NAUSEA; Start at 12:30; Stop 10/14/16 at 12:29 Fentanyl Citrate (Fentanyl 2ml Vial) 50 mcg PRN Q5MIN PRN IV Acute Pain Last administered on 10/14/16 10:04; Start 10/13/16 at 13:00; Stop 10/14/16 at 12:59 Morphine Sulfate 4 mg PRN Q10MIN PRN IV Moderate Pain; Start 10/13/16 at 13:00; Stop 10/14/16 at 12:59 Hydromorphone HCl (Dilaudid) 0.4 mg PRN Q10MIN PRN IV Moderate to severe pain; Start 10/13/16 at 13:00; Stop 10/14/16 at 12:59 Meperidine HCl (Demerol) 12.5 mg PRN Q5MIN PRN IV SHIVERING; Start 10/13/16 at 13:00; Stop 10/14/16 at 12:59 Prochlorperazine Edisylate (Compazine) 5 mg PRN Q6HRS PRN IV Nausea/Vomiting, 1st Choice; Start 10/13/16 at 13:00; Stop 10/14/16 at 12:59 Diphenhydramine HCl (Benadryl) 12.5 mg PRN Q2HR PRN IV ITCHING; Start 10/13/16 at 13:00; Stop 10/14/16 at 12:59 Midazolam HCl (Versed) 2 mg PRN 1X PRN IV PRIOR TO PROCEDURE; Start 10/13/16 at 13:00; Stop 10/14/16 at 12:59 Midazolam HCl (Versed) 1 mg PRN 1X PRN IV PRIOR TO PROCEDURE; Start 10/13/16 at 13:00; Stop 10/14/16 at 12:59 Fentanyl Citrate (Fentanyl 2ml Vial) 25 mcg PRN Q5MIN PRN IV X 2 DOSES FOR PAIN ; Start 10/13/16 at 13:00; Stop 10/14/16 at 12:59 Fentanyl Citrate 50 mcg 50 mcg PRN Q5MIN PRN IV X 2 DOSES FOR PAIN; Start at 13:00; Stop 10/14/16 at 12:59 Lactated Ringer's (Iv Lactated Ringers) 1,000 ml @ 125 mls/hr Q8H IV Last administered on 10/13/16t 13:30; Start 10/13/16 at 12:48; Stop 10/14/16 at 00:47; Status DC Lidocaine HCl 2 ml 1X PRN PRN ID IV START; Start 10/13/16 at 13:00; Stop at 16:03; Status DC Fentanyl Citrate (Fentanyl 2ml Vial) 25 mcg PRN Q2HR PRN IV PAIN MOD TO SEV; Start 10/13/16 at 20:30 Fentanyl Citrate (Fentanyl 2ml Vial) 50 mcg PRN Q2HR PRN IV PAIN MOD TO SEV Last administered on 10/14/16t 04:11; Start 10/13/16 at 20:30 Enoxaparin Sodium (Lovenox 40mg Syringe) 40 mg Q24H SQ Last administered on t 09:24; Start 10/14/16 at 09:00 Fentanyl Citrate 100 mcg 100 mcg STK-MED ONCE .ROUTE ; Start 10/13/16 at 13:27; Stop 10/14/16 at 07:31; Status DC Propofol (Diprivan) 20 ml @ As Directed STK-MED ONCE IV ; Start 10/13/16 at 13:27 ; Stop 10/14/16 at 07:31; Status DC Rocuronium [place] (Zemuron) 50 mg STK-MED ONCE .ROUTE ; Start 10/13/16 at 13:27 ; Stop 10/14/16 at 07:31; Status DC Lidocaine HCl 100 mg STK-MED ONCE .ROUTE ; Start 10/13/16 at 13:27; Stop at 07:31; Status DC Fentanyl Citrate (Fentanyl 2ml Vial) 100 mcg STK-MED ONCE .ROUTE ; Start at 13:27; Stop 10/14/16 at 07:31; Status DC Ephedrine Sulfate (Akovaz) 50 mg STK-MED ONCE .ROUTE ; Start 10/13/16 at 14:00; Stop 10/14/16 at 07:31; Status DC Phenylephrine HCl 1 mg STK-MED ONCE IV ; Start 10/13/16 at 14:25; Stop 10/14/16 at 07:31; Status DC Desflurane (Suprane) 60 ml STK-MED ONCE IH ; Start 10/13/16 at 14:25; Stop at 07:31; Status DC Dexamethasone Sodium Phosphate (Decadron) 20 mg STK-MED ONCE .ROUTE ; Start 10/13 at 14:25; Stop 10/14/16 at 07:31; Status DC Ondansetron HCl (Zofran) 4 mg STK-MED ONCE .ROUTE ; Start 10/13/16 at 14:25; Stop 10/14/16 at 07:31; Status DC Famotidine (Pepcid) 20 mg STK-MED ONCE .ROUTE ; Start 10/13/16 at 14:25; Stop 07/21 at 07:31; Status DC Rocuronium [place] (Zemuron) 50 mg STK-MED ONCE .ROUTE ; Start 10/13/16 at 16:19 ; Stop 10/14/16 at 07:31; Status DC Fentanyl Citrate (Fentanyl 2ml Vial) 100 mcg STK-MED ONCE .ROUTE ; Start at 16:21; Stop 10/14/16 at 07:31; Status DC Desflurane (Suprane) 90 ml STK-MED ONCE IH ; Start 10/13/16 at 16:53; Stop at 07:31; Status DC Glycopyrrolate (Robinul) 1 mg STK-MED ONCE .ROUTE ; Start 10/13/16 at 17:00; Stop 10/14/16 at 07:31; Status DC Neostigmine Methylsulfate 5 mg STK-MED ONCE .ROUTE ; Start 10/13/16 at 17:00; Stop 10/14/16 at 07:31; Status DC Phenylephrine HCl 1 mg STK-MED ONCE IV ; Start 10/13/16 at 18:14; Stop 10/14/16 at 07:31; Status DC Fentanyl Citrate (Fentanyl 2ml Vial) 100 mcg STK-MED ONCE .ROUTE ; Start at 18:20; Stop 10/14/16 at 07:31; Status DC Fentanyl Citrate 100 mcg 100 mcg STK-MED ONCE .ROUTE ; Start 10/13/16 at 19:17; Stop 10/14/16 at 07:31; Status DC Levetiracetam/ Sodium Chloride (Keppra/Iv Sodium Chloride 0.9% 100ml) 105 ml @ 400 mls/hr Q12HR IV Last administered on 10/14/16t 10:03; Start 10/14/16 at 09: 00 Active Scripts Active Hydrocodone-Apap 5-325 (Hydrocodone Bit/Acetaminophen) 1 Each Tablet 1 Tab PO PRN Q6HRS PRN Metoprolol Succinate ( Xl ) (Metoprolol Succinate) 25 Mg Tab.er.24h 25 Mg PO DAILY Reported Flomax (Tamsulosin Hcl) 0.4 Mg Cap.er.24h 1 Cap PO QHS Tramadol Hcl 100 Mg Tab.er.24h 100 Mg PO QID Levetiracetam 250 Mg Tablet 250 Mg PO BID Dulcolax (Bisacodyl) 10 Mg Supp.rect 10 Mg RC PRN DAILY PRN Maalox Advanced Suspension (Mag Hydrox/Al Hydrox/Simeth) 770 Ml Oral.susp 30 Ml PO Q2HR PRN Milk Of Magnesia (Magnesium Hydroxide) 400 Mg/5 Ml Oral.susp 30 Ml PO DAILY PRN Robitussin Cough-Chest Dm Liq (Guaifenesin/Dextromethorphan) 118 Ml Liquid 10 Ml PO Q4HRS PRN Trazodone Hcl 50 Mg Tablet 1 Tab PO QHS Tylenol (Acetaminophen) 325 Mg Tablet 650 Mg PO Q6HRS PRN Pramipexole Dihydrochloride (Pramipexole Di-Hcl) 0.5 Mg Tablet 0.5 Mg PO TID Simvastatin 20 Mg Tablet 1 Tab PO QHS Levothyroxine Sodium 100 Mcg Tablet 1 Tab PO DAILY Gabapentin 800 Mg Tablet 800 Mg PO QID Sinemet 25-100 Mg Tablet (Carbidopa/Levodopa) 1 Each Tablet 2 Tab PO TID Aspirin 81 Mg Tab.chew 1 Tab PO DAILY Allergies Allergies: Coded Allergies: ciprofloxacin (Verified Allergy, Intermediate, 10/13/16) nitroglycerin (Verified Allergy, Intermediate, 10/13/16) paroxetine (Verified Allergy, Intermediate, 10/13/16) I S O L A T I O N *CONTACT* (Verified Allergy, Unknown, 10/13/16) mrsa ROS Review of System UNABLE TO OBTAIN Physical Exam General: Cooperative, No acute distress HEENT: PERRLA, Mucous membr. moist/pink Lungs: Clear to auscultation, Normal air movement Heart: Regular rate, Normal S1, Normal S2, No murmurs Abdomen: No masses, Other (SLIGHTLY DISTENDED) Extremities: No clubbing, No cyanosis, No edema, Normal pulses, No tenderness/ swelling Skin: No rashes, No breakdown Psych/Mental Status: Other (CONFUSED) Vitals VITALS Vital Signs Date Time Temp Pulse Resp B/P Pulse Ox O2 Delivery O2 Flow Rate FiO2 10/14/16 10:52 18 99 Nasal Cannula 3.0 10/14/16 09:00 100 127/58 10/14/16 08:00 100.2 100.2 Labs Labs Laboratory Tests Test 10/13/16 07:00 10/13/16 10:00 10/14/16 06:05 White Blood Count 17.5x10^3/uL (4.0-11.0) 11.4x10^3/uL (4.0-11.0) Red Blood Count 3.45x10^6/uL (4.30-5.70) 3.05x10^6/uL (4.30-5.70) Hemoglobin 11.1g/dL (13.0-17.5) 9.8g/dL (13.0-17.5) Hematocrit 34.9% (39.0-53.0) 30.8% (39.0-53.0) Mean Corpuscular Volume 101fL (79-100) 101fL (79-100) Mean Corpuscular Hemoglobin 32pg (25-35) 32pg (25-35) Mean Corpuscular Hemoglobin Concent 32g/dL (31-37) 32g/dL (31-37) Red Cell Distribution Width 15.2% (11.5-14.5) 15.6% (11.5-14.5) Platelet Count 338x10^3/uL (140-400) 371x10^3/uL (140-400) Neutrophils (%) (Auto) 92% (31-73) 83% (31-73) Lymphocytes (%) (Auto) 5% (24-48) 10% (24-48) Monocytes (%) (Auto) 3% (0-9) 6% (0-9) Eosinophils (%) (Auto) 0% (0-3) 0% (0-3) Basophils (%) (Auto) 0% (0-3) 1% (0-3) Neutrophils # (Auto) 16.1x10^3uL (1.8-7.7) 9.5x10^3uL (1.8-7.7) Lymphocytes # (Auto) 0.8x10^3/uL (1.0-4.8) 1.1x10^3/uL (1.0-4.8) Monocytes # (Auto) 0.6x10^3/uL (0.0-1.1) 0.7x10^3/uL (0.0-1.1) Eosinophils # (Auto) 0.0x10^3/uL (0.0-0.7) 0.0x10^3/uL (0.0-0.7) Basophils # (Auto) 0.0x10^3/uL (0.0-0.2) 0.1x10^3/uL (0.0-0.2) Segmented Neutrophils % 82% (35-66) Band Neutrophils % 12% (0-9) Lymphocytes % 2% (24-48) Monocytes % 4% (0-10) Platelet Estimate Adequate (ADEQUATE) Anisocytosis Slight Sodium Level 137mmol/L (136-145) 138mmol/L (136-145) Potassium Level 5.4mmol/L (3.5-5.1) 5.5mmol/L (3.5-5.1) Chloride Level 101mmol/L (98-107) 104mmol/L (98-107) Carbon Dioxide Level 32mmol/L (21-32) 27mmol/L (21-32) Anion Gap 4 (6-14) 7 (6-14) Blood Urea Nitrogen 41mg/dL (8-26) 46mg/dL (8-26) Creatinine 1.6mg/dL (0.7-1.3) 1.8mg/dL (0.7-1.3) Estimated GFR (Cockcroft-Gault) 41.3 36.0 BUN/Creatinine Ratio 26 (6-20) Glucose Level 156mg/dL (70-99) 175mg/dL (70-99) Calcium Level 8.9mg/dL (8.5-10.1) 8.1mg/dL (8.5-10.1) Total Bilirubin 0.3mg/dL (0.2-1.0) Aspartate Amino Transf (AST/SGOT) 38U/L (15-37) Alanine Aminotransferase (ALT/SGPT) 17U/L (16-63) Alkaline Phosphatase 100U/L (46-116) Total Protein 7.3g/dL (6.4-8.2) Albumin 2.8g/dL (3.4-5.0) Albumin/Globulin Ratio 0.6 (1.0-1.7) Amylase Level 134U/L (25-115) Lipase 230U/L (73-393) Urine Collection Type Unknown Urine Color Yellow Urine Clarity Clear Urine pH 6.0 Urine Specific [place] 1.025 Urine Protein Negativemg/dL (NEG-TRACE) Urine Glucose (UA) Negativemg/dL (NEG) Urine Ketones (Stick) Tracemg/dL (NEG) Urine Blood Negative (NEG) Urine Nitrite Negative (NEG) Urine Bilirubin Negative (NEG) Urine Urobilinogen Dipstick 0.2mg/dL (0.2 mg/dL) Urine Leukocyte Esterase Negative (NEG) Urine RBC Occ/HPF (0-2) Urine WBC Occ/HPF (0-4) Urine Squamous Epithelial Cells Few/LPF Urine Bacteria 0/HPF (0-FEW) Urine Mucus Slight/LPF Laboratory Tests Test 10/14/16 06:05 White Blood Count 11.4x10^3/uL (4.0-11.0) Red Blood Count 3.05x10^6/uL (4.30-5.70) Hemoglobin 9.8g/dL (13.0-17.5) Hematocrit 30.8% (39.0-53.0) Mean Corpuscular Volume 101fL (79-100) Mean Corpuscular Hemoglobin 32pg (25-35) Mean Corpuscular Hemoglobin Concent 32g/dL (31-37) Red Cell Distribution Width 15.6% (11.5-14.5) Platelet Count 371x10^3/uL (140-400) Neutrophils (%) (Auto) 83% (31-73) Lymphocytes (%) (Auto) 10% (24-48) Monocytes (%) (Auto) 6% (0-9) Eosinophils (%) (Auto) 0% (0-3) Basophils (%) (Auto) 1% (0-3) Neutrophils # (Auto) 9.5x10^3uL (1.8-7.7) Lymphocytes # (Auto) 1.1x10^3/uL (1.0-4.8) Monocytes # (Auto) 0.7x10^3/uL (0.0-1.1) Eosinophils # (Auto) 0.0x10^3/uL (0.0-0.7) Basophils # (Auto) 0.1x10^3/uL (0.0-0.2) Sodium Level 138mmol/L (136-145) Potassium Level 5.5mmol/L (3.5-5.1) Chloride Level 104mmol/L (98-107) Carbon Dioxide Level 27mmol/L (21-32) Anion Gap 7 (6-14) Blood Urea Nitrogen 46mg/dL (8-26) Creatinine 1.8mg/dL (0.7-1.3) Estimated GFR (Cockcroft-Gault) 36.0 Glucose Level 175mg/dL (70-99) Calcium Level 8.1mg/dL (8.5-10.1) Assessment/Plan Assessment/Plan IMP SBO CKD STAGE 3 WITH CR OF 1.5-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
[2016-10-14] MEDS: AA 3%/ELECTROLYTE-TPN SOLN/GLY 1,000 ML IV SCH ×2 (12:02→22:07)
--- NOTE | 2016-10-14 13:09 | PDOC ---
PAZ MONTEJO ENVIRONMENTAL COORDINATOR 10/14/16 1309: SURGICAL PROGRESS NOTE Subjective feeling better less pain no flatus Vital Signs Vital Signs Date Time Temp Pulse Resp B/P Pulse Ox O2 Delivery O2 Flow Rate FiO2 10/14/16 12:02 20 99 Nasal Cannula 3.0 10/14/16 12:00 100.0 100 110/56 100.0 I&O Intake and Output 10/14/16 07:00 Intake Total 1056 ml Output Total 1885 ml Balance -829 ml IV Total 1056 ml Output Urine Total 735 ml Gastric Drainage Total 900 ml Emesis 100 ml Estimated Blood Loss 150 ml PATIENT HAS A MELVIN: Yes (critical monitoring ) General: Alert, No acute distress Abdomen: Soft, Other (dressing dry, incisional pain) Labs Laboratory Tests Test 10/13/16 07:00 10/13/16 10:00 10/14/16 06:05 White Blood Count 17.5x10^3/uL (4.0-11.0) 11.4x10^3/uL (4.0-11.0) Red Blood Count 3.45x10^6/uL (4.30-5.70) 3.05x10^6/uL (4.30-5.70) Hemoglobin 11.1g/dL (13.0-17.5) 9.8g/dL (13.0-17.5) Hematocrit 34.9% (39.0-53.0) 30.8% (39.0-53.0) Mean Corpuscular Volume 101fL (79-100) 101fL (79-100) Mean Corpuscular Hemoglobin 32pg (25-35) 32pg (25-35) Mean Corpuscular Hemoglobin Concent 32g/dL (31-37) 32g/dL (31-37) Red Cell Distribution Width 15.2% (11.5-14.5) 15.6% (11.5-14.5) Platelet Count 338x10^3/uL (140-400) 371x10^3/uL (140-400) Neutrophils (%) (Auto) 92% (31-73) 83% (31-73) Lymphocytes (%) (Auto) 5% (24-48) 10% (24-48) Monocytes (%) (Auto) 3% (0-9) 6% (0-9) Eosinophils (%) (Auto) 0% (0-3) 0% (0-3) Basophils (%) (Auto) 0% (0-3) 1% (0-3) Neutrophils # (Auto) 16.1x10^3uL (1.8-7.7) 9.5x10^3uL (1.8-7.7) Lymphocytes # (Auto) 0.8x10^3/uL (1.0-4.8) 1.1x10^3/uL (1.0-4.8) Monocytes # (Auto) 0.6x10^3/uL (0.0-1.1) 0.7x10^3/uL (0.0-1.1) Eosinophils # (Auto) 0.0x10^3/uL (0.0-0.7) 0.0x10^3/uL (0.0-0.7) Basophils # (Auto) 0.0x10^3/uL (0.0-0.2) 0.1x10^3/uL (0.0-0.2) Segmented Neutrophils % 82% (35-66) Band Neutrophils % 12% (0-9) Lymphocytes % 2% (24-48) Monocytes % 4% (0-10) Platelet Estimate Adequate (ADEQUATE) Anisocytosis Slight Sodium Level 137mmol/L (136-145) 138mmol/L (136-145) Potassium Level 5.4mmol/L (3.5-5.1) 5.5mmol/L (3.5-5.1) Chloride Level 101mmol/L (98-107) 104mmol/L (98-107) Carbon Dioxide Level 32mmol/L (21-32) 27mmol/L (21-32) Anion Gap 4 (6-14) 7 (6-14) Blood Urea Nitrogen 41mg/dL (8-26) 46mg/dL (8-26) Creatinine 1.6mg/dL (0.7-1.3) 1.8mg/dL (0.7-1.3) Estimated GFR (Cockcroft-Gault) 41.3 36.0 BUN/Creatinine Ratio 26 (6-20) Glucose Level 156mg/dL (70-99) 175mg/dL (70-99) Calcium Level 8.9mg/dL (8.5-10.1) 8.1mg/dL (8.5-10.1) Total Bilirubin 0.3mg/dL (0.2-1.0) Aspartate Amino Transf (AST/SGOT) 38U/L (15-37) Alanine Aminotransferase (ALT/SGPT) 17U/L (16-63) Alkaline Phosphatase 100U/L (46-116) Total Protein 7.3g/dL (6.4-8.2) Albumin 2.8g/dL (3.4-5.0) Albumin/Globulin Ratio 0.6 (1.0-1.7) Amylase Level 134U/L (25-115) Lipase 230U/L (73-393) Urine Collection Type Unknown Urine Color Yellow Urine Clarity Clear Urine pH 6.0 Urine Specific [place] 1.025 Urine Protein Negativemg/dL (NEG-TRACE) Urine Glucose (UA) Negativemg/dL (NEG) Urine Ketones (Stick) Tracemg/dL (NEG) Urine Blood Negative (NEG) Urine Nitrite Negative (NEG) Urine Bilirubin Negative (NEG) Urine Urobilinogen Dipstick 0.2mg/dL (0.2 mg/dL) Urine Leukocyte Esterase Negative (NEG) Urine RBC Occ/HPF (0-2) Urine WBC Occ/HPF (0-4) Urine Squamous Epithelial Cells Few/LPF Urine Bacteria 0/HPF (0-FEW) Urine Mucus Slight/LPF Laboratory Tests Test 10/14/16 06:05 White Blood Count 11.4x10^3/uL (4.0-11.0) Red Blood Count 3.05x10^6/uL (4.30-5.70) Hemoglobin 9.8g/dL (13.0-17.5) Hematocrit 30.8% (39.0-53.0) Mean Corpuscular Volume 101fL (79-100) Mean Corpuscular Hemoglobin 32pg (25-35) Mean Corpuscular Hemoglobin Concent 32g/dL (31-37) Red Cell Distribution Width 15.6% (11.5-14.5) Platelet Count 371x10^3/uL (140-400) Neutrophils (%) (Auto) 83% (31-73) Lymphocytes (%) (Auto) 10% (24-48) Monocytes (%) (Auto) 6% (0-9) Eosinophils (%) (Auto) 0% (0-3) Basophils (%) (Auto) 1% (0-3) Neutrophils # (Auto) 9.5x10^3uL (1.8-7.7) Lymphocytes # (Auto) 1.1x10^3/uL (1.0-4.8) Monocytes # (Auto) 0.7x10^3/uL (0.0-1.1) Eosinophils # (Auto) 0.0x10^3/uL (0.0-0.7) Basophils # (Auto) 0.1x10^3/uL (0.0-0.2) Sodium Level 138mmol/L (136-145) Potassium Level 5.5mmol/L (3.5-5.1) Chloride Level 104mmol/L (98-107) Carbon Dioxide Level 27mmol/L (21-32) Anion Gap 7 (6-14) Blood Urea Nitrogen 46mg/dL (8-26) Creatinine 1.8mg/dL (0.7-1.3) Estimated GFR (Cockcroft-Gault) 36.0 Glucose Level 175mg/dL (70-99) Calcium Level 8.1mg/dL (8.5-10.1) Problem List Problems Medical Problems: (1) SBO (small bowel obstruction) Status: Acute Assessment/Plan POD# xlap, CONG bowel was viable in OR, significant adhesions continue NG, await bowel fx Problems: KENDRICK CULVER MD 10/14/16 1632: SURGICAL PROGRESS NOTE Assessment/Plan Reviewed, agree with above; difficult surgery with extensive adhesions; may have prolonged ileus Problems: PAZ MONTEJO APRN Oct 14, 2016 13:09 KENDRICK CULVER MD Oct 14, 2016 16:32
[2016-10-14] MEDS: MORPHINE SULFATE 4 MG/ML DISP.SYRIN. IV PRN ×3 (15:50→22:06)
--- NOTE | 2016-10-14 16:48 | PDOC4 ---
Operative Note Operative Note Date of surgery: 10/13/16 Operative Note: Preoperative Diagnosis: Partial small bowel obstruction, acute abdomen Postoperative Diagnosis: Partial small bowel obstruction Procedure: Exploratory laparotomy, extensive lysis of adhesions (requiring over 2-1/2 hours) Surgeon: Constantin Tapering Machine Operator: Chela Galindo Anesthesia: Gen. Estimated blood loss: 150 mL Specimen: None Drains: None Findings: Extensive intestinal adhesions throughout all of abdomen, edema involving small bowel in the left abdomen, no evidence of bowel ischemia Complications: None Indication: The patient is an 86-year-old male who was admitted with initial findings suggesting a partial small bowel obstruction. This was managed with conservative measures and he seemed to improve well. He had been tolerating a diet and having normal bowel function. However he appeared to develop acute worsening with increased abdominal pain and vomiting. On laboratory evaluation he had a significant increase in his WBC count. A CT scan of the abdomen showed a large amount of portal venous gas with inflammatory change of some small bowel in the left abdomen raising concern for bowel viability. Given all of these findings we believe exploration is prudent to evaluate and potentially treat a possible acute abdomen. The details of surgery are discussed with the patient including the risks. The risks are very significant given his age and multiple comorbidities. The risks include bleeding, infection, anastomotic leak , anesthetic risk, myocardial infarction, deep venous thrombosis, hernia formation, wound healing problems, mortality risk, potential need for additional surgery or procedure. He understands all of this and would like to proceed. Description: The patient was taken to the operating room and placed supine on the operating table. Gen. anesthesia was performed. The abdomen was prepped with ChloraPrep and draped in a standard surgical manner. An upper vertical midline incision was made with a scalpel. Cautery dissection was carried down to the fascia. The fascia and peritoneum were then divided and the abdominal cavity was entered. We were able to enter the peritoneal cavity however we immediately encountered numerous and extensive adhesions throughout the entire abdomen. This required a very extensive lysis of adhesions performed primarily with sharp dissection. This took over 2-1/2 hours to perform. Many of the adhesions were filmy however several of them were dense and difficult. One particular area of bowel showed very dense adhesions which seemed to involve a staple line likely from a prior bowel resection. After much of the bowel had been freed up from the abdominal wall the Omni retractor was then utilized to assist with exposure. We then continued with freeing up the adhesions of the small bowel loops themselves. There appeared to be 2 separate prior small bowel anastomosis. Some of the loops of small bowel showed mild chronic dilation likely due to the extensive adhesions. Several loops of small bowel in the left abdomen showed some mild surrounding edema. However all of the bowel was viable and we saw no signs of ischemia or perforation. There also did not appear to be any high-grade areas of obstruction. The adhesions were so severe however that a more chronic low-grade partial obstructive effect seemed likely. In the course of freeing up the intestine we did repair several small serosal disruptions using 3-0 Vicryl sutures. At no point was there any full-thickness enterotomy or contamination. We were able to identify the terminal ileum which entered the cecum. The colon and stomach were well visualized and appeared normal. The gallbladder was mildly distended but showed no signs of cholecystitis. We then ran the small bowel in its entirety. Close inspection again showed good viability with no signs of ischemia. The abdomen was irrigated with sterile saline. Hemostasis appeared good. The fascia was then reapproximated with a running 1 PDS suture. Subcutaneous tissue was closed with 3-0 Vicryl. The skin was closed with a 4-0 Monocryl suture. A sterile dressing was then applied. The patient tolerated the procedure in stable condition and was sent to the recovery room. At the end of the case all counts were correct. KENDRICK CULVER MD Oct 14, 2016 16:48
[2016-10-15] MEDS: MORPHINE SULFATE 4 MG/ML DISP.SYRIN. IV PRN ×6 (00:18→22:32)
[2016-10-15 03:04] VITALS: BP 119/57
[2016-10-15] MEDS: ONDANSETRON PF 4 MG/2 ML VIAL. IV PRN (04:42)
[2016-10-15] MEDS: PIPERACILLIN/TAZOBACTAM 3.375 GM in IV NORMAL SALINE 50ML 50 ML IV SCH ×5 (06:24→18:09)
[2016-10-15 06:43] LABS: BASO # 0.1 x10^3/uL (0.0-0.2); BASO % 1 % (0-3); EOS % 2 % (0-3); HEMOGLOBIN 7.9 g/dL (13.0-17.5); LYMPH # 1.4 x10^3/uL (1.0-4.8); LYMPH % 11 % (24-48); MEAN CORPUSCULAR HEMOGLOBIN 32 pg (25-35); MEAN CORPUSCULAR HGB CONC 32 g/dL (31-37); MEAN CORPUSCULAR VOLUME 101 fL (79-100); MONO % 5 % (0-9); NEUT % 82 % (31-73); PLATELET COUNT 245 x10^3/uL (140-400); RED BLOOD COUNT 2.49 x10^6/uL (4.30-5.70); RED CELL DISTRIBUTION WIDTH 15.5 % (11.5-14.5); WHITE BLOOD COUNT 12.9 x10^3/uL (4.0-11.0)
[2016-10-15 06:58] LABS: CALCIUM 8.2 mg/dL (8.5-10.1); CREATININE 1.5 mg/dL (0.7-1.3); GFR 44.5; POTASSIUM 4.7 mmol/L (3.5-5.1)
[2016-10-15 07:00] VITALS: BP 110/52
--- NOTE | 2016-10-15 08:15 | PDOC ---
PROGRESS NOTES Subjective Subjective fever last night and afebrile this morning. does not feel well but no specific complaint. pain controlled currently. lab reviewed. blood and urine cultures negative so far. Objective Objective Vital Signs Date Time Temp Pulse Resp B/P Pulse Ox O2 Delivery O2 Flow Rate FiO2 10/15/16 04:43 Nasal Cannula 10/15/16 03:04 97.9 95 18 119/57 90 3.0 97.9 Intake and Output 10/15/16 07:00 Intake Total 1715 ml Output Total 1950 ml Balance -235 ml Intake Oral 0 ml IV Total 1715 ml Output Urine Total 1910 ml Gastric Drainage Total 20 ml Drainage Total 20 ml Physical Exam Abdomen: Soft, Other (bowel sounds heard. dry dressing) Heart: Regular rate, Normal S1, Normal S2 Extremities: No edema General: Alert HEENT: Atraumatic Lungs: Clear to auscultation Neuro: Normal speech Psych/Mental Status: Mood NL Skin: No rashes Assessment Assessment Problems Medical Problems:Small-bowel obstruction resolved exploratory laparotomy 10/13/16. lysis of adhesions. bowel viable. 2. Seizure disorder. 3. Parkinson's disease. 4. Hypothyroidism. 5. Peripheral neuropathy. 6. Hypertension. 7. Chronic kidney disease stage III. klebsiella uti treated suspected gout synovitis resolved peripheral edema improved critical illness myopathy hematemesis resolved leukocytosis better fever last night (1) SBO (small bowel obstruction) Status: Acute Plan Plan of Care PPN and iv fluids ng suction analgesics prn iv zosyn Comment Review of Relevant I have reviewed the following items [place] (where applicable) has been applied. Labs Laboratory Tests Test 10/13/16 10:00 10/14/16 06:05 10/15/16 06:20 Urine Collection Type Unknown Urine Color Yellow Urine Clarity Clear Urine pH 6.0 Urine Specific [place] 1.025 Urine Protein Negativemg/dL (NEG-TRACE) Urine Glucose (UA) Negativemg/dL (NEG) Urine Ketones (Stick) Tracemg/dL (NEG) Urine Blood Negative (NEG) Urine Nitrite Negative (NEG) Urine Bilirubin Negative (NEG) Urine Urobilinogen Dipstick 0.2mg/dL (0.2 mg/dL) Urine Leukocyte Esterase Negative (NEG) Urine RBC Occ/HPF (0-2) Urine WBC Occ/HPF (0-4) Urine Squamous Epithelial Cells Few/LPF Urine Bacteria 0/HPF (0-FEW) Urine Mucus Slight/LPF White Blood Count 11.4x10^3/uL (4.0-11.0) 12.9x10^3/uL (4.0-11.0) Red Blood Count 3.05x10^6/uL (4.30-5.70) 2.49x10^6/uL (4.30-5.70) Hemoglobin 9.8g/dL (13.0-17.5) 7.9g/dL (13.0-17.5) Hematocrit 30.8% (39.0-53.0) 25.0% (39.0-53.0) Mean Corpuscular Volume 101fL (79-100) 101fL (79-100) Mean Corpuscular Hemoglobin 32pg (25-35) 32pg (25-35) Mean Corpuscular Hemoglobin Concent 32g/dL (31-37) 32g/dL (31-37) Red Cell Distribution Width 15.6% (11.5-14.5) 15.5% (11.5-14.5) Platelet Count 371x10^3/uL (140-400) 245x10^3/uL (140-400) Neutrophils (%) (Auto) 83% (31-73) 82% (31-73) Lymphocytes (%) (Auto) 10% (24-48) 11% (24-48) Monocytes (%) (Auto) 6% (0-9) 5% (0-9) Eosinophils (%) (Auto) 0% (0-3) 2% (0-3) Basophils (%) (Auto) 1% (0-3) 1% (0-3) Neutrophils # (Auto) 9.5x10^3uL (1.8-7.7) 10.6x10^3uL (1.8-7.7) Lymphocytes # (Auto) 1.1x10^3/uL (1.0-4.8) 1.4x10^3/uL (1.0-4.8) Monocytes # (Auto) 0.7x10^3/uL (0.0-1.1) 0.6x10^3/uL (0.0-1.1) Eosinophils # (Auto) 0.0x10^3/uL (0.0-0.7) 0.2x10^3/uL (0.0-0.7) Basophils # (Auto) 0.1x10^3/uL (0.0-0.2) 0.1x10^3/uL (0.0-0.2) Sodium Level 138mmol/L (136-145) 136mmol/L (136-145) Potassium Level 5.5mmol/L (3.5-5.1) 4.7mmol/L (3.5-5.1) Chloride Level 104mmol/L (98-107) 104mmol/L (98-107) Carbon Dioxide Level 27mmol/L (21-32) 29mmol/L (21-32) Anion Gap 7 (6-14) 3 (6-14) Blood Urea Nitrogen 46mg/dL (8-26) 36mg/dL (8-26) Creatinine 1.8mg/dL (0.7-1.3) 1.5mg/dL (0.7-1.3) Estimated GFR (Cockcroft-Gault) 36.0 44.5 Glucose Level 175mg/dL (70-99) 132mg/dL (70-99) Calcium Level 8.1mg/dL (8.5-10.1) 8.2mg/dL (8.5-10.1) Laboratory Tests Test 10/15/16 06:20 White Blood Count 12.9x10^3/uL (4.0-11.0) Red Blood Count 2.49x10^6/uL (4.30-5.70) Hemoglobin 7.9g/dL (13.0-17.5) Hematocrit 25.0% (39.0-53.0) Mean Corpuscular Volume 101fL (79-100) Mean Corpuscular Hemoglobin 32pg (25-35) Mean Corpuscular Hemoglobin Concent 32g/dL (31-37) Red Cell Distribution Width 15.5% (11.5-14.5) Platelet Count 245x10^3/uL (140-400) Neutrophils (%) (Auto) 82% (31-73) Lymphocytes (%) (Auto) 11% (24-48) Monocytes (%) (Auto) 5% (0-9) Eosinophils (%) (Auto) 2% (0-3) Basophils (%) (Auto) 1% (0-3) Neutrophils # (Auto) 10.6x10^3uL (1.8-7.7) Lymphocytes # (Auto) 1.4x10^3/uL (1.0-4.8) Monocytes # (Auto) 0.6x10^3/uL (0.0-1.1) Eosinophils # (Auto) 0.2x10^3/uL (0.0-0.7) Basophils # (Auto) 0.1x10^3/uL (0.0-0.2) Sodium Level 136mmol/L (136-145) Potassium Level 4.7mmol/L (3.5-5.1) Chloride Level 104mmol/L (98-107) Carbon Dioxide Level 29mmol/L (21-32) Anion Gap 3 (6-14) Blood Urea Nitrogen 36mg/dL (8-26) Creatinine 1.5mg/dL (0.7-1.3) Estimated GFR (Cockcroft-Gault) 44.5 Glucose Level 132mg/dL (70-99) Calcium Level 8.2mg/dL (8.5-10.1) Microbiology 10/13/16 Blood Culture - Preliminary, Resulted NO GROWTH AFTER 1 DAY 10/13/16 Urine Culture - Preliminary, Resulted 10/13/16 Urine Culture Result 1 (MANDEEP) - Preliminary, Resulted Medications Current Medications Fentanyl Citrate 50 mcg 50 mcg PRN Q15MIN PRN IV PAIN GREATER THAN 3/10 Last administered on 09/30/16at 19:35; Start 09/30/16 at 17:30; Stop 10/01/16 at 04 :24; Status DC Lactated Ringer's (Iv Lactated Ringers) 1,000 ml @ 100 mls/hr Q10H IV Last administered on 09/30/16at 19:35; Start 09/30/16 at 17:28; Stop 10/01/16 at 03 :27; Status DC Ondansetron HCl (Zofran) 4 mg 1X ONCE IV Last administered on 09/30/16at 17:44 ; Start 09/30/16 at 17:30; Stop 09/30/16 at 17:32; Status DC Fentanyl Citrate (Fentanyl 2ml Vial) 50 mcg 1X ONCE IV ; Start 09/30/16 at 19: 15; Stop 10/01/16 at 04:24; Status DC Ondansetron HCl (Zofran) 4 mg PRN Q8HRS PRN IV NAUSEA/VOMITING Last administered on 09/30/16at 22:07; Start 09/30/16 at 19:15; Stop 10/01/16 at 19 :14; Status DC Fentanyl Citrate 50 mcg 50 mcg PRN Q2HR PRN IV PAIN Last administered on at 16:54; Start 09/30/16 at 19:15; Stop 10/01/16 at 19:14; Status DC Sodium Chloride 1,000 ml @ 100 mls/hr Q10H IV ; Start 09/30/16 at 19:30; Stop 10/01/16 at 04:24; Status DC Potassium Chloride/Dextrose/ Sod Cl (KCl 20 Meq In D5W-1/2 NS) 1,000 ml @ 125 mls/hr Q8H IV Last administered on 10/04/16at 06:02; Start 09/30/16 at 20:00; Stop 10/04/16 at 10:21; Status DC Enoxaparin Sodium 40 mg 40 mg Q24H SQ Last administered on 10/13/16 08:14; Start 10/01/16 at 09:00; Stop 10/13/16 at 08:36; Status DC Levetiracetam/ Sodium Chloride (Keppra/Iv Sodium Chloride 0.9% 100ml) 105 ml @ 400 mls/hr Q12HR IV Last administered on 10/05/16 09:30; Start 09/30/16 at 21: 00; Stop 10/05/16 at 10:24; Status DC Morphine Sulfate 2 mg PRN Q4HRS PRN IV SEVERE PAIN Last administered on 10:13; Start 09/30/16 at 19:30; Stop 10/05/16 at 10:24; Status DC Acetaminophen (Tylenol) 650 mg PRN Q6HRS PRN [place] MILD PAIN / TEMP; Start at 19:30; Stop 10/05/16 at 10:24; Status DC Ondansetron HCl (Zofran) 4 mg PRN Q6HRS PRN IV NAUSEA/VOMITING Last administered on 10/07/16 08:28; Start 09/30/16 at 19:30; Stop 10/09/16 at 12:08 ; Status DC Benzocaine (Hurricaine One) 1 spray STK-MED ONCE .ROUTE ; Start 09/30/16 at 19: 51; Stop 09/30/16 at 19:52; Status DC Morphine Sulfate 4 mg PRN Q4HRS PRN IV PAIN Last administered on 10/05/16 08:08 ; Start 10/01/16 at 20:00; Stop 10/05/16 at 10:24; Status DC Clonidine HCl 1 patch 1 patch WEEKLY TD Last administered on 10/03/16at 12:30; Start 10/03/16 at 10:00; Stop 10/05/16 at 10:24; Status DC Piperacillin Sod/ Tazobactam Sod/ Sodium Chloride (Zosyn/Iv Sodium Chloride 0.9 % 50ml) 50 ml @ 100 mls/hr Q6HRS IV Last administered on 10/09/16 06:26; Start 10/04/16 at 11:00; Stop 10/09/16 at 10:55; Status DC Vancomycin HCl 1 each 1 each PRN DAILY PRN MC SEE COMMENTS Last administered on 10/07/16 11:11; Start 10/04/16 at 10:15; Stop 10/07/16 at 11:28; Status DC Vancomycin HCl/ Sodium Chloride (Iv Sodium Chloride 0.9% 250ml) 250 ml @ 250 mls/hr Q24H IV ; Start 10/04/16 at 10:15; Status UNV Labetalol HCl (Normodyne) 20 mg PRN Q6HRS PRN IVP HYPERTENSION, SEE COMMENTS; Start 10/04/16 at 10:15; Stop 10/05/16 at 10:24; Status DC Hydralazine HCl 10 mg 10 mg PRN Q6HRS PRN IVP ELEVATED BP, SEE COMMENTS Last administered on 10/06/16 19:17; Start 10/04/16 at 10:15; Stop 10/12/16 at 10:40 ; Status DC Amino Acids/ Glycerin/ Electrolytes 1,000 ml @ 40 mls/hr Q24H IV Last administered on 10/06/16 09:59; Start 10/04/16 at 10:15; Stop 10/07/16 at 09:06 ; Status DC Vancomycin HCl 2 gm/Sodium Chloride 500 ml @ 250 mls/hr 1X ONCE IV Last administered on 10/04/16at 11:26; Start 10/04/16 at 10:45; Stop 10/04/16 at 12 :44; Status DC Vancomycin HCl/ Sodium Chloride (Iv Sodium Chloride 0.9% 500ml Bag) 500 ml @ 250 mls/hr Q24H IV Last administered on 10/06/16 11:47; Start 10/05/16 at 12:00 ; Stop 10/07/16 at 11:28; Status DC Vancomycin HCl 1 each 1X ONCE MC Last administered on 10/06/16 11:30; Start at 11:30; Stop 10/06/16 at 11:31; Status DC Aspirin (Children'S Aspirin) 81 mg [id number] PO Last administered on 10/13/16 08:15; Start 10/05/16 at 11:00; Stop 10/13/16 at 08:29; Status DC Gabapentin (Neurontin) 600 mg QID PO Last administered on 10/13/16 08:14; Start 10/05/16 at 13:00; Stop 10/14/16 at 08:47; Status DC Levetiracetam (Keppra) 250 mg BID PO Last administered on 10/13/16 08:17; Start 10/05/16 at 11:00; Stop 10/14/16 at 08:47; Status DC Levothyroxine Sodium (Synthroid) 100 mcg DAILY07 PO Last administered on 05:08; Start 10/05/16 at 10:30; Stop 10/14/16 at 08:48; Status DC Metoprolol Succinate (Toprol Xl) 25 mg DAILY PO Last administered on 10/13/16 08:16; Start 10/05/16 at 11:00; Stop 10/14/16 at 08:47; Status DC Pramipexole Dihydrochloride (miraPEX) 0.5 mg [id number] PO Last administered on 10/13 08:15; Start 10/05/16 at 11:00; Stop 10/14/16 at 08:48; Status DC Simvastatin (Zocor) 20 mg HS PO Last administered on 10/12/16 21:07; Start 10/05 at 21:00; Stop 10/14/16 at 08:48; Status DC Carbidopa/Levodopa (Sinemet Cr) 1 tab.sa TID PO Last administered on 10/13/16 08:16; Start 10/05/16 at 11:00; Stop 10/14/16 at 08:48; Status DC Tamsulosin HCl (Flomax) 0.4 mg QHS PO Last administered on 10/12/16 21:07; Start 10/05/16 at 21:00; Stop 10/14/16 at 08:48; Status DC Tramadol HCl (Ultram) 50 mg QID PO Last administered on 10/13/16 08:17; Start 10/05/16 at 13:00; Stop 10/14/16 at 08:48; Status DC Acetaminophen (Tylenol) 650 mg PRN Q4HRS PRN PO MILD PAIN / TEMP Last administered on 10/13/16 00:17; Start 10/05/16 at 10:15; Stop 10/14/16 at 08:48; Status DC Prednisone (Prednisone) 20 mg 1X ONCE PO Last administered on 10/06/16 11:01; Start 10/06/16 at 10:30; Stop 10/06/16 at 10:31; Status DC Prednisone (Prednisone) 10 mg DAILY08 PO Last administered on 10/13/16 08:15; Start 10/07/16 at 08:00; Stop 10/13/16 at 08:29; Status DC Al Hydroxide/Mg Hydroxide (Mylanta Plus Xs) 30 ml PRN Q4HRS PRN PO HEARTBURN / GAS Last administered on 10/12/16 21:07; Start 10/07/16 at 08:45; Stop 10/14/16 at 08:48; Status DC Pantoprazole Sodium (Protonix) 40 mg DAILYAC PO Last administered on 10/13/16 05:08; Start 10/07/16 at 10:00; Stop 10/13/16 at 06:45; Status DC Furosemide 40 mg 40 mg DAILY PO Last administered on 10/08/16 08:42; Start 10/07 at 10:00; Stop 10/08/16 at 08:56; Status DC Sodium Chloride (Iv Sodium Chloride 0.45%) 1,000 ml @ 60 mls/hr CONT PRN IV . ; Start 10/08/16 at 09:00; Stop 10/08/16 at 16:06; Status DC Bisacodyl 10 mg 10 mg 1X ONCE [place] Last administered on 10/08/16 10:11; Start at 09:30; Stop 10/08/16 at 09:31; Status DC Sodium Chloride (Iv Sodium Chloride 0.45%) 1,000 ml @ 60 mls/hr [id number] IV Last administered on 10/09/16 02:52; Start 10/08/16 at 10:15; Stop 10/09/16 at 12: 00; Status DC Cefpodoxime Proxetil (Vantin) 200 mg BID PO ; Start 10/09/16 at 11:00; Stop at 12:08; Status DC Cefpodoxime Proxetil (Vantin) 100 mg BID PO Last administered on 10/13/16 08:16 ; Start 10/09/16 at 21:00; Stop 10/13/16 at 08:29; Status DC Ondansetron HCl (Zofran) 4 mg STK-MED ONCE .ROUTE Last administered on 01:24; Start 10/13/16 at 01:19; Stop 10/13/16 at 01:20; Status DC Ondansetron HCl (Zofran) 4 mg PRN Q6HRS PRN IV NAUSEA/VOMITING Last administered on 10/15/16 04:42; Start 10/13/16 at 02:00 Pantoprazole Sodium 40 mg 40 mg DAILYAC IVP Last administered on 10/14/16 09: 23; Start 10/13/16 at 07:30 Dextrose/Sodium Chloride (Iv D5% - NS) 1,000 ml @ 60 mls/hr [id number] IV Last administered on 10/13/16 09:25; Start 10/13/16 at 08:30; Stop 10/13/16 at 11:01; Status DC Sodium Polystyrene Sulfonate 15 gm 15 gm 1X ONCE PO Last administered on 09:26; Start 10/13/16 at 08:30; Stop 10/13/16 at 08:31; Status DC Piperacillin Sod/ Tazobactam Sod 3.375 gm/Sodium Chloride 50 ml @ 100 mls/hr Q6HRS IV Last administered on 10/15/16 06:24; Start 10/13/16 at 09:00 Dextrose/Sodium Chloride (Iv D5% - 1/2 NS) 1,000 ml @ 50 mls/hr Q20H IV Last administered on 10/14/16 05:54; Start 10/13/16 at 11:00 Ondansetron HCl (Zofran) 4 mg PRN Q6HRS PRN IV Nausea 1ST CHOICE; Start at 12:30; Stop 10/14/16 at 11:07; Status DC Fentanyl Citrate (Fentanyl 2ml Vial) 25 mcg PRN Q5MIN PRN IV MILD PAIN; Start 10/13/16 at 12:30; Stop 10/14/16 at 11:04; Status DC Fentanyl Citrate (Fentanyl 2ml Vial) 50 mcg PRN Q5MIN PRN IV MODERATE PAIN; Start 10/13/16 at 12:30; Stop 10/14/16 at 11:04; Status DC Morphine Sulfate 1 mg 1 mg PRN Q10MIN PRN IV SEVERE PAIN; Start 10/13/16 at 12: 30; Stop 10/14/16 at 11:00; Status DC Lactated Ringer's (Iv Lactated Ringers) 1,000 ml @ 0 mls/hr Q0M IV ; Start 10/13 at 12:17; Stop 10/14/16 at 00:16; Status DC Lidocaine HCl 2 ml 1X PRN PRN ID IV START; Start 10/13/16 at 12:30; Stop at 16:03; Status DC Hydromorphone HCl (Dilaudid) 0.5 mg PRN Q10MIN PRN IV SEV PAIN,Second choice; Start 10/13/16 at 12:30; Stop 10/14/16 at 11:04; Status DC Prochlorperazine Edisylate (Compazine) 5 mg PACU PRN PRN IV NAUSEA; Start at 12:30; Stop 10/14/16 at 11:00; Status DC Fentanyl Citrate (Fentanyl 2ml Vial) 50 mcg PRN Q5MIN PRN IV Acute Pain Last administered on 10/14/16t 10:04; Start 10/13/16 at 13:00; Stop 10/14/16 at 11:04 ; Status DC Morphine Sulfate 4 mg PRN Q10MIN PRN IV Moderate Pain; Start 10/13/16 at 13:00; Stop 10/14/16 at 11:00; Status DC Hydromorphone HCl (Dilaudid) 0.4 mg PRN Q10MIN PRN IV Moderate to severe pain; Start 10/13/16 at 13:00; Stop 10/14/16 at 11:04; Status DC Meperidine HCl (Demerol) 12.5 mg PRN Q5MIN PRN IV SHIVERING; Start 10/13/16 at 13:00; Stop 10/14/16 at 11:00; Status DC Prochlorperazine Edisylate (Compazine) 5 mg PRN Q6HRS PRN IV Nausea/Vomiting, 1st Choice; Start 10/13/16 at 13:00; Stop 10/14/16 at 11:00; Status DC Diphenhydramine HCl (Benadryl) 12.5 mg PRN Q2HR PRN IV ITCHING; Start 10/13/16 at 13:00; Stop 10/14/16 at 11:00; Status DC Midazolam HCl (Versed) 2 mg PRN 1X PRN IV PRIOR TO PROCEDURE; Start 10/13/16 at 13:00; Stop 10/14/16 at 11:07; Status DC Midazolam HCl (Versed) 1 mg PRN 1X PRN IV PRIOR TO PROCEDURE; Start 10/13/16 at 13:00; Stop 10/14/16 at 11:07; Status DC Fentanyl Citrate (Fentanyl 2ml Vial) 25 mcg PRN Q5MIN PRN IV X 2 DOSES FOR PAIN ; Start 10/13/16 at 13:00; Stop 10/14/16 at 11:04; Status DC Fentanyl Citrate 50 mcg 50 mcg PRN Q5MIN PRN IV X 2 DOSES FOR PAIN; Start at 13:00; Stop 10/14/16 at 11:04; Status DC Lactated Ringer's (Iv Lactated Ringers) 1,000 ml @ 125 mls/hr Q8H IV Last administered on 10/13/16t 13:30; Start 10/13/16 at 12:48; Stop 10/14/16 at 00:47; Status DC Lidocaine HCl 2 ml 1X PRN PRN ID IV START; Start 10/13/16 at 13:00; Stop at 16:03; Status DC Fentanyl Citrate (Fentanyl 2ml Vial) 25 mcg PRN Q2HR PRN IV PAIN MOD TO SEV; Start 10/13/16 at 20:30; Stop 10/14/16 at 14:15; Status DC Fentanyl Citrate (Fentanyl 2ml Vial) 50 mcg PRN Q2HR PRN IV PAIN MOD TO SEV Last administered on 10/14/16t 12:02; Start 10/13/16 at 20:30; Stop 10/14/16 at 14:15; Status DC Enoxaparin Sodium (Lovenox 40mg Syringe) 40 mg Q24H SQ Last administered on t 09:24; Start 10/14/16 at 09:00 Fentanyl Citrate 100 mcg 100 mcg STK-MED ONCE .ROUTE ; Start 10/13/16 at 13:27; Stop 10/14/16 at 07:31; Status DC Propofol (Diprivan) 20 ml @ As Directed STK-MED ONCE IV ; Start 10/13/16 at 13:27 ; Stop 10/14/16 at 07:31; Status DC Rocuronium [place] (Zemuron) 50 mg STK-MED ONCE .ROUTE ; Start 10/13/16 at 13:27 ; Stop 10/14/16 at 07:31; Status DC Lidocaine HCl 100 mg STK-MED ONCE .ROUTE ; Start 10/13/16 at 13:27; Stop at 07:31; Status DC Fentanyl Citrate (Fentanyl 2ml Vial) 100 mcg STK-MED ONCE .ROUTE ; Start at 13:27; Stop 10/14/16 at 07:31; Status DC Ephedrine Sulfate (Akovaz) 50 mg STK-MED ONCE .ROUTE ; Start 10/13/16 at 14:00; Stop 10/14/16 at 07:31; Status DC Phenylephrine HCl 1 mg STK-MED ONCE IV ; Start 10/13/16 at 14:25; Stop 10/14/16 at 07:31; Status DC Desflurane (Suprane) 60 ml STK-MED ONCE IH ; Start 10/13/16 at 14:25; Stop at 07:31; Status DC Dexamethasone Sodium Phosphate (Decadron) 20 mg STK-MED ONCE .ROUTE ; Start 10/13 at 14:25; Stop 10/14/16 at 07:31; Status DC Ondansetron HCl (Zofran) 4 mg STK-MED ONCE .ROUTE ; Start 10/13/16 at 14:25; Stop 10/14/16 at 07:31; Status DC Famotidine (Pepcid) 20 mg STK-MED ONCE .ROUTE ; Start 10/13/16 at 14:25; Stop 07/21 at 07:31; Status DC Rocuronium [place] (Zemuron) 50 mg STK-MED ONCE .ROUTE ; Start 10/13/16 at 16:19 ; Stop 10/14/16 at 07:31; Status DC Fentanyl Citrate (Fentanyl 2ml Vial) 100 mcg STK-MED ONCE .ROUTE ; Start at 16:21; Stop 10/14/16 at 07:31; Status DC Desflurane (Suprane) 90 ml STK-MED ONCE IH ; Start 10/13/16 at 16:53; Stop at 07:31; Status DC Glycopyrrolate (Robinul) 1 mg STK-MED ONCE .ROUTE ; Start 10/13/16 at 17:00; Stop 10/14/16 at 07:31; Status DC Neostigmine Methylsulfate 5 mg STK-MED ONCE .ROUTE ; Start 10/13/16 at 17:00; Stop 10/14/16 at 07:31; Status DC Phenylephrine HCl 1 mg STK-MED ONCE IV ; Start 10/13/16 at 18:14; Stop 10/14/16 at 07:31; Status DC Fentanyl Citrate (Fentanyl 2ml Vial) 100 mcg STK-MED ONCE .ROUTE ; Start at 18:20; Stop 10/14/16 at 07:31; Status DC Fentanyl Citrate 100 mcg 100 mcg STK-MED ONCE .ROUTE ; Start 10/13/16 at 19:17; Stop 10/14/16 at 07:31; Status DC Levetiracetam 500 mg/Sodium Chloride 105 ml @ 400 mls/hr Q12HR IV Last administered on 10/14/16 22:06; Start 10/14/16 at 09:00 Amino Acids/ Glycerin/ Electrolytes (Procalamine) 1,000 ml @ 80 mls/hr [id number] IV Last administered on 10/14/16 22:07; Start 10/14/16 at 11:15 Morphine Sulfate 2 mg PRN Q4HRS PRN IV MODERATE PAIN Last administered on 00:18; Start 10/14/16 at 14:15 Morphine Sulfate 4 mg PRN Q4HRS PRN IV SEVERE PAIN Last administered on 04:43; Start 10/14/16 at 14:30 Active Scripts Active Hydrocodone-Apap 5-325 (Hydrocodone Bit/Acetaminophen) 1 Each Tablet 1 Tab PO PRN Q6HRS PRN Metoprolol Succinate ( Xl ) (Metoprolol Succinate) 25 Mg Tab.er.24h 25 Mg PO DAILY Reported Flomax (Tamsulosin Hcl) 0.4 Mg Cap.er.24h 1 Cap PO QHS Tramadol Hcl 100 Mg Tab.er.24h 100 Mg PO QID Levetiracetam 250 Mg Tablet 250 Mg PO BID Dulcolax (Bisacodyl) 10 Mg Supp.rect 10 Mg RC PRN DAILY PRN Maalox Advanced Suspension (Mag Hydrox/Al Hydrox/Simeth) 770 Ml Oral.susp 30 Ml PO Q2HR PRN Milk Of Magnesia (Magnesium Hydroxide) 400 Mg/5 Ml Oral.susp 30 Ml PO DAILY PRN Robitussin Cough-Chest Dm Liq (Guaifenesin/Dextromethorphan) 118 Ml Liquid 10 Ml PO Q4HRS PRN Trazodone Hcl 50 Mg Tablet 1 Tab PO QHS Tylenol (Acetaminophen) 325 Mg Tablet 650 Mg PO Q6HRS PRN Pramipexole Dihydrochloride (Pramipexole Di-Hcl) 0.5 Mg Tablet 0.5 Mg PO TID Simvastatin 20 Mg Tablet 1 Tab PO QHS Levothyroxine Sodium 100 Mcg Tablet 1 Tab PO DAILY Gabapentin 800 Mg Tablet 800 Mg PO QID Sinemet 25-100 Mg Tablet (Carbidopa/Levodopa) 1 Each Tablet 2 Tab PO TID Aspirin 81 Mg Tab.chew 1 Tab PO DAILY Vitals/I & O Vital Sign - Last 24 Hours 10/14/16 10/14/16 10/14/16 10/14/16 09:00 10:04 10:52 11:00 Pulse 100 94 Resp 21 18 18 20 B/P 127/58 113/55 Pulse Ox 99 99 99 98 O2 Delivery Nasal Cannula Nasal Cannula Nasal Cannula Nasal Cannula O2 Flow Rate 3.0 3.0 3.0 3.0 10/14/16 10/14/16 10/14/16 10/14/16 12:00 12:00 12:02 13:32 Temp 100.0 100.0 Pulse 100 Resp 22 20 20 B/P 110/56 Pulse Ox 98 99 98 O2 Delivery Nasal Cannula Nasal Cannula Nasal Cannula Nasal Cannula O2 Flow Rate 3.0 3.0 3.0 3.0 10/14/16 10/14/16 10/14/16 10/14/16 15:50 16:00 16:30 16:43 Temp 100.2 98.2 100.2 98.2 Pulse 106 103 Resp 20 24 18 B/P 121/57 144/78 Pulse Ox 98 97 99 O2 Delivery Nasal Cannula Nasal Cannula Nasal Cannula Nasal Cannula O2 Flow Rate 3.0 3.0 3.0 3.0 10/14/16 10/14/16 10/14/16 10/14/16 17:54 18:38 19:29 20:00 Temp 101.3 101.3 Pulse 92 Resp 16 B/P 134/71 Pulse Ox 95 O2 Delivery Nasal Cannula Nasal Cannula Nasal Cannula Nasal Cannula O2 Flow Rate 3.0 3.0 3.0 3.0 10/14/16 10/15/16 10/15/16 23:04 03:04 04:43 Temp 98.1 97.9 98.1 97.9 Pulse 99 95 Resp 16 18 B/P 139/66 119/57 Pulse Ox 92 90 O2 Delivery Nasal Cannula Nasal Cannula Nasal Cannula O2 Flow Rate 3.0 3.0 Intake and Output 10/14/16 10/14/16 10/15/16 15:00 23:00 07:00 Intake Total 0 ml 1715 ml Output Total 610 ml 20 ml 1320 ml Balance -610 ml -20 ml 395 ml RICHARD [place] MD Oct 15, 2016 08:15
[2016-10-15] MEDS: ENOXAPARIN 40 MG/0.4 ML DISP.SYRIN. SQ SCH (08:49)
[2016-10-15] MEDS: LEVETIRACETAM 500 MG in IV NORMAL SALINE 100ML 100 ML IV SCH ×2 (08:50→22:17)
[2016-10-15] MEDS: PANTOPRAZOLE IV PUSH 40 MG VIAL. IVP SCH (08:50)
[2016-10-15] MEDS: IV DEXTROSE 5 %-0.45 % NACL 1,000 ML IV SCH ×2 (08:50→22:19)
[2016-10-15] MEDS: AA 3%/ELECTROLYTE-TPN SOLN/GLY 1,000 ML IV SCH (09:00)
--- NOTE | 2016-10-15 09:59 | PDOC ---
Infectious Disease Note Subjective Subjective pt feeling better, ROS ROS no n/v/d/ NG still in place Vital Sign Vital Signs Vital Signs Date Time Temp Pulse Resp B/P Pulse Ox O2 Delivery O2 Flow Rate FiO2 10/15/16 08:49 20 Nasal Cannula 2.0 10/15/16 07:00 98.2 68 110/52 96 98.2 Physical Exam PHYSICAL EXAM GENERAL: NAD, Alert HEENT: PERRL, OC/OP NECK: Supple, no JVD, no LN LUNGS: Clear HEART: S1S2, no gallop, no murmur ABD: Soft, NT, no organomegaly, no rebound EXT: No edema, no cyanosis DOOR TO DOOR SELLING AGENT: Alert, 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, no focal neurologic deficit SKIN: No rash IV: ok Labs Lab Laboratory Tests Test 10/15/16 06:20 White Blood Count 12.9x10^3/uL (4.0-11.0) Red Blood Count 2.49x10^6/uL (4.30-5.70) Hemoglobin 7.9g/dL (13.0-17.5) Hematocrit 25.0% (39.0-53.0) Mean Corpuscular Volume 101fL (79-100) Mean Corpuscular Hemoglobin 32pg (25-35) Mean Corpuscular Hemoglobin Concent 32g/dL (31-37) Red Cell Distribution Width 15.5% (11.5-14.5) Platelet Count 245x10^3/uL (140-400) Neutrophils (%) (Auto) 82% (31-73) Lymphocytes (%) (Auto) 11% (24-48) Monocytes (%) (Auto) 5% (0-9) Eosinophils (%) (Auto) 2% (0-3) Basophils (%) (Auto) 1% (0-3) Neutrophils # (Auto) 10.6x10^3uL (1.8-7.7) Lymphocytes # (Auto) 1.4x10^3/uL (1.0-4.8) Monocytes # (Auto) 0.6x10^3/uL (0.0-1.1) Eosinophils # (Auto) 0.2x10^3/uL (0.0-0.7) Basophils # (Auto) 0.1x10^3/uL (0.0-0.2) Sodium Level 136mmol/L (136-145) Potassium Level 4.7mmol/L (3.5-5.1) Chloride Level 104mmol/L (98-107) Carbon Dioxide Level 29mmol/L (21-32) Anion Gap 3 (6-14) Blood Urea Nitrogen 36mg/dL (8-26) Creatinine 1.5mg/dL (0.7-1.3) Estimated GFR (Cockcroft-Gault) 44.5 Glucose Level 132mg/dL (70-99) Calcium Level 8.2mg/dL (8.5-10.1) Objective Assessment Fever - better TAYLOR Klebsiella UTI 10/04 although a lot of squamous cells present on UA Small bowel obstruction - Hiatal hernia + MRSA Cipro allergy. Seizure disorder Parkinson's disease Abdominal pain, s/p Exp lap Plan Plan of Care supportive care mrak anthony d/w OMI VELASQUEZ MD Oct 15, 2016 09:59
--- NOTE | 2016-10-15 10:13 | PDOC ---
Renal-Progress Notes Subjective Notes Notes NONE History of Present Illness Hx of present illness STABLE Vitals Vitals Vital Signs Date Time Temp Pulse Resp B/P Pulse Ox O2 Delivery O2 Flow Rate FiO2 10/15/16 08:49 20 Nasal Cannula 2.0 10/15/16 07:00 98.2 68 110/52 96 98.2 Weight Weight [ ] I.O. Intake and Output Intake and Output 10/15/16 07:00 Intake Total 1715 ml Output Total 1950 ml Balance -235 ml Intake Oral 0 ml IV Total 1715 ml Output Urine Total 1910 ml Gastric Drainage Total 20 ml Drainage Total 20 ml Labs Labs Laboratory Tests Test 10/15/16 06:20 White Blood Count 12.9x10^3/uL (4.0-11.0) Red Blood Count 2.49x10^6/uL (4.30-5.70) Hemoglobin 7.9g/dL (13.0-17.5) Hematocrit 25.0% (39.0-53.0) Mean Corpuscular Volume 101fL (79-100) Mean Corpuscular Hemoglobin 32pg (25-35) Mean Corpuscular Hemoglobin Concent 32g/dL (31-37) Red Cell Distribution Width 15.5% (11.5-14.5) Platelet Count 245x10^3/uL (140-400) Neutrophils (%) (Auto) 82% (31-73) Lymphocytes (%) (Auto) 11% (24-48) Monocytes (%) (Auto) 5% (0-9) Eosinophils (%) (Auto) 2% (0-3) Basophils (%) (Auto) 1% (0-3) Neutrophils # (Auto) 10.6x10^3uL (1.8-7.7) Lymphocytes # (Auto) 1.4x10^3/uL (1.0-4.8) Monocytes # (Auto) 0.6x10^3/uL (0.0-1.1) Eosinophils # (Auto) 0.2x10^3/uL (0.0-0.7) Basophils # (Auto) 0.1x10^3/uL (0.0-0.2) Sodium Level 136mmol/L (136-145) Potassium Level 4.7mmol/L (3.5-5.1) Chloride Level 104mmol/L (98-107) Carbon Dioxide Level 29mmol/L (21-32) Anion Gap 3 (6-14) Blood Urea Nitrogen 36mg/dL (8-26) Creatinine 1.5mg/dL (0.7-1.3) Estimated GFR (Cockcroft-Gault) 44.5 Glucose Level 132mg/dL (70-99) Calcium Level 8.2mg/dL (8.5-10.1) Micro Micro Microbiology 10/13/16 Blood Culture - Preliminary, Resulted NO GROWTH AFTER 2 DAYS 10/13/16 Urine Culture - Preliminary, Resulted 10/13/16 Urine Culture Result 1 (MANDEEP) - Preliminary, Resulted Review of Systems Constitutional: yes: no symptom reported Physical Exam General Appearance: no apparent distress Skin: warm Respiratory: bilateral CTA Heart: S1S2, RRR Abdomen: soft, bowel sounds present Extremities: pulses present Neurology: alert Assessment Assessment IMP TAYLOR-IMPROVED CKD STAGE 3 DEHYDRATION-BETTER HYPERKALEMIA - RESOLVED SBO PLAN CONT PPN TILL PO INTAKE RESUMES TPN IF PROLONGED ILEUS WILL FOLLOW CONI GLYNN MD Oct 15, 2016 10:13
--- NOTE | 2016-10-15 10:34 | PDOC ---
Subjective: Subjective: Per pt - abd pain, no n/v, no flatus. Objective: Objective: NG out. 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 GAYLA CLEMENTE Oct 15, 2016 10:34
[2016-10-15 11:00] VITALS: BP 113/50
[2016-10-15 15:00] VITALS: BP 115/64
[2016-10-15 19:00] VITALS: BP 146/66
[2016-10-15 23:00] VITALS: BP 138/65
[2016-10-16] MEDS: PIPERACILLIN/TAZOBACTAM 3.375 GM in IV NORMAL SALINE 50ML 50 ML IV SCH ×4 (00:39→19:46)
[2016-10-16] MEDS: AA 3%/ELECTROLYTE-TPN SOLN/GLY 1,000 ML IV SCH ×2 (00:40→09:16)
[2016-10-16 03:00] VITALS: BP 129/74
[2016-10-16] MEDS: MORPHINE SULFATE 4 MG/ML DISP.SYRIN. IV PRN ×5 (03:46→23:01)
[2016-10-16 07:00] VITALS: BP 157/56
[2016-10-16 07:53] LABS: BASO % 0 % (0-3); EOS % 3 % (0-3); HEMATOCRIT 25.5 % (39.0-53.0); HEMOGLOBIN 8.3 g/dL (13.0-17.5); LYMPH # 1.2 x10^3/uL (1.0-4.8); LYMPH % 12 % (24-48); MEAN CORPUSCULAR HEMOGLOBIN 32 pg (25-35); MEAN CORPUSCULAR HGB CONC 33 g/dL (31-37); MEAN CORPUSCULAR VOLUME 100 fL (79-100); MONO % 5 % (0-9); NEUT % 80 % (31-73); PLATELET COUNT 255 x10^3/uL (140-400); RED BLOOD COUNT 2.56 x10^6/uL (4.30-5.70); RED CELL DISTRIBUTION WIDTH 15.6 % (11.5-14.5)
[2016-10-16 08:04] LABS: CALCIUM 8.3 mg/dL (8.5-10.1); CREATININE 1.4 mg/dL (0.7-1.3); GFR 48.2; MAGNESIUM 2.3 mg/dL (1.8-2.4); POTASSIUM 4.4 mmol/L (3.5-5.1)
[2016-10-16] MEDS: ENOXAPARIN 40 MG/0.4 ML DISP.SYRIN. SQ SCH (09:06)
[2016-10-16] MEDS: PANTOPRAZOLE IV PUSH 40 MG VIAL. IVP SCH (09:09)
--- NOTE | 2016-10-16 09:14 | PDOC ---
PAZ MONTEJO [facility] 10/16/16 0914: SURGICAL PROGRESS NOTE Subjective up in chair no flatus abdominal pain managed NG fell out, no nausea Vital Signs Vital Signs Date Time Temp Pulse Resp B/P Pulse Ox O2 Delivery O2 Flow Rate FiO2 10/16/16 07:00 98.8 91 20 157/56 92 Nasal Cannula 3.0 98.8 I&O Intake and Output 10/16/16 07:00 Output Total 5850 ml Balance -5850 ml Output Urine Total 5850 ml PATIENT HAS A MELVIN: Yes General: Alert, Oriented X3, Cooperative, No acute distress Abdomen: Soft, Other (ND, incision c/d/i, no erythema ) Labs Laboratory Tests Test 10/15/16 06:20 10/16/16 07:35 White Blood Count 12.9x10^3/uL (4.0-11.0) 10.0x10^3/uL (4.0-11.0) Red Blood Count 2.49x10^6/uL (4.30-5.70) 2.56x10^6/uL (4.30-5.70) Hemoglobin 7.9g/dL (13.0-17.5) 8.3g/dL (13.0-17.5) Hematocrit 25.0% (39.0-53.0) 25.5% (39.0-53.0) Mean Corpuscular Volume 101fL (79-100) 100fL (79-100) Mean Corpuscular Hemoglobin 32pg (25-35) 32pg (25-35) Mean Corpuscular Hemoglobin Concent 32g/dL (31-37) 33g/dL (31-37) Red Cell Distribution Width 15.5% (11.5-14.5) 15.6% (11.5-14.5) Platelet Count 245x10^3/uL (140-400) 255x10^3/uL (140-400) Neutrophils (%) (Auto) 82% (31-73) 80% (31-73) Lymphocytes (%) (Auto) 11% (24-48) 12% (24-48) Monocytes (%) (Auto) 5% (0-9) 5% (0-9) Eosinophils (%) (Auto) 2% (0-3) 3% (0-3) Basophils (%) (Auto) 1% (0-3) 0% (0-3) Neutrophils # (Auto) 10.6x10^3uL (1.8-7.7) 8.0x10^3uL (1.8-7.7) Lymphocytes # (Auto) 1.4x10^3/uL (1.0-4.8) 1.2x10^3/uL (1.0-4.8) Monocytes # (Auto) 0.6x10^3/uL (0.0-1.1) 0.5x10^3/uL (0.0-1.1) Eosinophils # (Auto) 0.2x10^3/uL (0.0-0.7) 0.3x10^3/uL (0.0-0.7) Basophils # (Auto) 0.1x10^3/uL (0.0-0.2) 0.0x10^3/uL (0.0-0.2) Sodium Level 136mmol/L (136-145) 139mmol/L (136-145) Potassium Level 4.7mmol/L (3.5-5.1) 4.4mmol/L (3.5-5.1) Chloride Level 104mmol/L (98-107) 105mmol/L (98-107) Carbon Dioxide Level 29mmol/L (21-32) 28mmol/L (21-32) Anion Gap 3 (6-14) 6 (6-14) Blood Urea Nitrogen 36mg/dL (8-26) 28mg/dL (8-26) Creatinine 1.5mg/dL (0.7-1.3) 1.4mg/dL (0.7-1.3) Estimated GFR (Cockcroft-Gault) 44.5 48.2 Glucose Level 132mg/dL (70-99) 128mg/dL (70-99) Calcium Level 8.2mg/dL (8.5-10.1) 8.3mg/dL (8.5-10.1) Magnesium Level 2.3mg/dL (1.8-2.4) Laboratory Tests Test 10/16/16 07:35 White Blood Count 10.0x10^3/uL (4.0-11.0) Red Blood Count 2.56x10^6/uL (4.30-5.70) Hemoglobin 8.3g/dL (13.0-17.5) Hematocrit 25.5% (39.0-53.0) Mean Corpuscular Volume 100fL (79-100) Mean Corpuscular Hemoglobin 32pg (25-35) Mean Corpuscular Hemoglobin Concent 33g/dL (31-37) Red Cell Distribution Width 15.6% (11.5-14.5) Platelet Count 255x10^3/uL (140-400) Neutrophils (%) (Auto) 80% (31-73) Lymphocytes (%) (Auto) 12% (24-48) Monocytes (%) (Auto) 5% (0-9) Eosinophils (%) (Auto) 3% (0-3) Basophils (%) (Auto) 0% (0-3) Neutrophils # (Auto) 8.0x10^3uL (1.8-7.7) Lymphocytes # (Auto) 1.2x10^3/uL (1.0-4.8) Monocytes # (Auto) 0.5x10^3/uL (0.0-1.1) Eosinophils # (Auto) 0.3x10^3/uL (0.0-0.7) Basophils # (Auto) 0.0x10^3/uL (0.0-0.2) Sodium Level 139mmol/L (136-145) Potassium Level 4.4mmol/L (3.5-5.1) Chloride Level 105mmol/L (98-107) Carbon Dioxide Level 28mmol/L (21-32) Anion Gap 6 (6-14) Blood Urea Nitrogen 28mg/dL (8-26) Creatinine 1.4mg/dL (0.7-1.3) Estimated GFR (Cockcroft-Gault) 48.2 Glucose Level 128mg/dL (70-99) Calcium Level 8.3mg/dL (8.5-10.1) Magnesium Level 2.3mg/dL (1.8-2.4) Problem List Problems Medical Problems: (1) SBO (small bowel obstruction) Status: Acute Assessment/Plan s/p xlap, CONG await bowel function, keep NPO Problems: KENDRICK CULVER MD 10/16/16 0915: SURGICAL PROGRESS NOTE Assessment/Plan Reviewed, agree with above Problems: PAZ MONTEJO APRN Oct 16, 2016 09:14 KENDRICK CULVER MD Oct 16, 2016 09:15
--- NOTE | 2016-10-16 09:15 | PDOC ---
Infectious Disease Note Subjective Subjective pt feeling better, NG out ROS ROS GEN: Denies fevers, chills, sweats HEENT: Denies blurred vision, sore throat CV: Denies chest pain RESP: Denies shortness of air, cough GI: Denies n/v/d NEURO: Denies confusion, dizziness MSK: Denies weakness, joint pain/swelling Vital Sign Vital Signs Vital Signs Date Time Temp Pulse Resp B/P Pulse Ox O2 Delivery O2 Flow Rate FiO2 10/16/16 07:00 98.8 91 20 157/56 92 Nasal Cannula 3.0 98.8 Physical Exam PHYSICAL EXAM GENERAL: NAD, Alert HEENT: PERRL, OC/OP NECK: Supple, no JVD, no LN LUNGS: Clear HEART: S1S2, no gallop, no murmur ABD: Soft, NT, no organomegaly, no rebound EXT: No edema, no cyanosis LEAD APPLICATION ARCHITECT: Alert, 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, no focal neurologic deficit SKIN: No rash IV: ok Labs Lab Laboratory Tests Test 10/16/16 07:35 White Blood Count 10.0x10^3/uL (4.0-11.0) Red Blood Count 2.56x10^6/uL (4.30-5.70) Hemoglobin 8.3g/dL (13.0-17.5) Hematocrit 25.5% (39.0-53.0) Mean Corpuscular Volume 100fL (79-100) Mean Corpuscular Hemoglobin 32pg (25-35) Mean Corpuscular Hemoglobin Concent 33g/dL (31-37) Red Cell Distribution Width 15.6% (11.5-14.5) Platelet Count 255x10^3/uL (140-400) Neutrophils (%) (Auto) 80% (31-73) Lymphocytes (%) (Auto) 12% (24-48) Monocytes (%) (Auto) 5% (0-9) Eosinophils (%) (Auto) 3% (0-3) Basophils (%) (Auto) 0% (0-3) Neutrophils # (Auto) 8.0x10^3uL (1.8-7.7) Lymphocytes # (Auto) 1.2x10^3/uL (1.0-4.8) Monocytes # (Auto) 0.5x10^3/uL (0.0-1.1) Eosinophils # (Auto) 0.3x10^3/uL (0.0-0.7) Basophils # (Auto) 0.0x10^3/uL (0.0-0.2) Sodium Level 139mmol/L (136-145) Potassium Level 4.4mmol/L (3.5-5.1) Chloride Level 105mmol/L (98-107) Carbon Dioxide Level 28mmol/L (21-32) Anion Gap 6 (6-14) Blood Urea Nitrogen 28mg/dL (8-26) Creatinine 1.4mg/dL (0.7-1.3) Estimated GFR (Cockcroft-Gault) 48.2 Glucose Level 128mg/dL (70-99) Calcium Level 8.3mg/dL (8.5-10.1) Magnesium Level 2.3mg/dL (1.8-2.4) Objective Assessment Fever - better TAYLOR Klebsiella UTI 10/04 although a lot of squamous cells present on UA Small bowel obstruction - Hiatal hernia + MRSA Cipro allergy. Seizure disorder Parkinson's disease Abdominal pain, s/p Exp lap Plan Plan of Care supportive care mark anthony d/w Surgery OMI COBURN MD Oct 16, 2016 09:15
[2016-10-16] MEDS: LEVETIRACETAM 500 MG in IV NORMAL SALINE 100ML 100 ML IV SCH ×2 (09:18→21:32)
--- NOTE | 2016-10-16 10:50 | PDOC ---
PROGRESS NOTES Subjective Subjective has some low back pain. abdominal wound is clean and dry. denies BM or flatus. left arm swollen. Objective Objective Vital Signs Date Time Temp Pulse Resp B/P Pulse Ox O2 Delivery O2 Flow Rate FiO2 10/16/16 09:10 20 Nasal Cannula 2.0 10/16/16 07:00 98.8 91 157/56 92 98.8 Intake and Output 10/16/16 07:00 Output Total 5850 ml Balance -5850 ml Output Urine Total 5850 ml Physical Exam Abdomen: Soft, Other (decreased bowel wounds ) Heart: Regular rate, Normal S1, Normal S2 Extremities: Other (2 plus edema LUE) General: Alert HEENT: Atraumatic Lungs: Clear to auscultation Neuro: Normal speech Psych/Mental Status: Mood NL Skin: No rashes Assessment Assessment Problems Medical Problems::Small-bowel obstruction resolved exploratory laparotomy 10/13/16. lysis of adhesions. bowel viable. 2. Seizure disorder. 3. Parkinson's disease. 4. Hypothyroidism. 5. Peripheral neuropathy. 6. Hypertension. 7. Chronic kidney disease stage III. klebsiella uti treated suspected gout synovitis resolved peripheral edema improved critical illness myopathy hematemesis resolved LUE edematous (1) SBO (small bowel obstruction) Status: Acute Plan Plan of Care PPN and iv fluids resume PT and OT npo venous doppler LUE iv zosyn Comment Review of Relevant I have reviewed the following items [place] (where applicable) has been applied. Labs Laboratory Tests Test 10/15/16 06:20 10/16/16 07:35 White Blood Count 12.9x10^3/uL (4.0-11.0) 10.0x10^3/uL (4.0-11.0) Red Blood Count 2.49x10^6/uL (4.30-5.70) 2.56x10^6/uL (4.30-5.70) Hemoglobin 7.9g/dL (13.0-17.5) 8.3g/dL (13.0-17.5) Hematocrit 25.0% (39.0-53.0) 25.5% (39.0-53.0) Mean Corpuscular Volume 101fL (79-100) 100fL (79-100) Mean Corpuscular Hemoglobin 32pg (25-35) 32pg (25-35) Mean Corpuscular Hemoglobin Concent 32g/dL (31-37) 33g/dL (31-37) Red Cell Distribution Width 15.5% (11.5-14.5) 15.6% (11.5-14.5) Platelet Count 245x10^3/uL (140-400) 255x10^3/uL (140-400) Neutrophils (%) (Auto) 82% (31-73) 80% (31-73) Lymphocytes (%) (Auto) 11% (24-48) 12% (24-48) Monocytes (%) (Auto) 5% (0-9) 5% (0-9) Eosinophils (%) (Auto) 2% (0-3) 3% (0-3) Basophils (%) (Auto) 1% (0-3) 0% (0-3) Neutrophils # (Auto) 10.6x10^3uL (1.8-7.7) 8.0x10^3uL (1.8-7.7) Lymphocytes # (Auto) 1.4x10^3/uL (1.0-4.8) 1.2x10^3/uL (1.0-4.8) Monocytes # (Auto) 0.6x10^3/uL (0.0-1.1) 0.5x10^3/uL (0.0-1.1) Eosinophils # (Auto) 0.2x10^3/uL (0.0-0.7) 0.3x10^3/uL (0.0-0.7) Basophils # (Auto) 0.1x10^3/uL (0.0-0.2) 0.0x10^3/uL (0.0-0.2) Sodium Level 136mmol/L (136-145) 139mmol/L (136-145) Potassium Level 4.7mmol/L (3.5-5.1) 4.4mmol/L (3.5-5.1) Chloride Level 104mmol/L (98-107) 105mmol/L (98-107) Carbon Dioxide Level 29mmol/L (21-32) 28mmol/L (21-32) Anion Gap 3 (6-14) 6 (6-14) Blood Urea Nitrogen 36mg/dL (8-26) 28mg/dL (8-26) Creatinine 1.5mg/dL (0.7-1.3) 1.4mg/dL (0.7-1.3) Estimated GFR (Cockcroft-Gault) 44.5 48.2 Glucose Level 132mg/dL (70-99) 128mg/dL (70-99) Calcium Level 8.2mg/dL (8.5-10.1) 8.3mg/dL (8.5-10.1) Magnesium Level 2.3mg/dL (1.8-2.4) Laboratory Tests Test 10/16/16 07:35 White Blood Count 10.0x10^3/uL (4.0-11.0) Red Blood Count 2.56x10^6/uL (4.30-5.70) Hemoglobin 8.3g/dL (13.0-17.5) Hematocrit 25.5% (39.0-53.0) Mean Corpuscular Volume 100fL (79-100) Mean Corpuscular Hemoglobin 32pg (25-35) Mean Corpuscular Hemoglobin Concent 33g/dL (31-37) Red Cell Distribution Width 15.6% (11.5-14.5) Platelet Count 255x10^3/uL (140-400) Neutrophils (%) (Auto) 80% (31-73) Lymphocytes (%) (Auto) 12% (24-48) Monocytes (%) (Auto) 5% (0-9) Eosinophils (%) (Auto) 3% (0-3) Basophils (%) (Auto) 0% (0-3) Neutrophils # (Auto) 8.0x10^3uL (1.8-7.7) Lymphocytes # (Auto) 1.2x10^3/uL (1.0-4.8) Monocytes # (Auto) 0.5x10^3/uL (0.0-1.1) Eosinophils # (Auto) 0.3x10^3/uL (0.0-0.7) Basophils # (Auto) 0.0x10^3/uL (0.0-0.2) Sodium Level 139mmol/L (136-145) Potassium Level 4.4mmol/L (3.5-5.1) Chloride Level 105mmol/L (98-107) Carbon Dioxide Level 28mmol/L (21-32) Anion Gap 6 (6-14) Blood Urea Nitrogen 28mg/dL (8-26) Creatinine 1.4mg/dL (0.7-1.3) Estimated GFR (Cockcroft-Gault) 48.2 Glucose Level 128mg/dL (70-99) Calcium Level 8.3mg/dL (8.5-10.1) Magnesium Level 2.3mg/dL (1.8-2.4) Microbiology 10/13/16 Blood Culture - Preliminary, Resulted NO GROWTH AFTER 3 DAYS 10/13/16 Urine Culture - Final, Complete 10/13/16 Urine Culture Result 1 (MANDEEP) - Final, Complete Medications Current Medications Fentanyl Citrate 50 mcg 50 mcg PRN Q15MIN PRN IV PAIN GREATER THAN 3/10 Last administered on 09/30/16at 19:35; Start 09/30/16 at 17:30; Stop 10/01/16 at 04 :24; Status DC Lactated Ringer's (Iv Lactated Ringers) 1,000 ml @ 100 mls/hr Q10H IV Last administered on 09/30/16at 19:35; Start 09/30/16 at 17:28; Stop 10/01/16 at 03 :27; Status DC Ondansetron HCl (Zofran) 4 mg 1X ONCE IV Last administered on 09/30/16at 17:44 ; Start 09/30/16 at 17:30; Stop 09/30/16 at 17:32; Status DC Fentanyl Citrate (Fentanyl 2ml Vial) 50 mcg 1X ONCE IV ; Start 09/30/16 at 19: 15; Stop 10/01/16 at 04:24; Status DC Ondansetron HCl (Zofran) 4 mg PRN Q8HRS PRN IV NAUSEA/VOMITING Last administered on 09/30/16at 22:07; Start 09/30/16 at 19:15; Stop 10/01/16 at 19 :14; Status DC Fentanyl Citrate 50 mcg 50 mcg PRN Q2HR PRN IV PAIN Last administered on at 16:54; Start 09/30/16 at 19:15; Stop 10/01/16 at 19:14; Status DC Sodium Chloride 1,000 ml @ 100 mls/hr Q10H IV ; Start 09/30/16 at 19:30; Stop 10/01/16 at 04:24; Status DC Potassium Chloride/Dextrose/ Sod Cl (KCl 20 Meq In D5W-1/2 NS) 1,000 ml @ 125 mls/hr Q8H IV Last administered on 10/04/16at 06:02; Start 09/30/16 at 20:00; Stop 10/04/16 at 10:21; Status DC Enoxaparin Sodium 40 mg 40 mg Q24H SQ Last administered on 10/13/16 08:14; Start 10/01/16 at 09:00; Stop 10/13/16 at 08:36; Status DC Levetiracetam/ Sodium Chloride (Keppra/Iv Sodium Chloride 0.9% 100ml) 105 ml @ 400 mls/hr Q12HR IV Last administered on 10/05/16 09:30; Start 09/30/16 at 21: 00; Stop 10/05/16 at 10:24; Status DC Morphine Sulfate 2 mg PRN Q4HRS PRN IV SEVERE PAIN Last administered on 10:13; Start 09/30/16 at 19:30; Stop 10/05/16 at 10:24; Status DC Acetaminophen (Tylenol) 650 mg PRN Q6HRS PRN DC MILD PAIN / TEMP; Start at 19:30; Stop 10/05/16 at 10:24; Status DC Ondansetron HCl (Zofran) 4 mg PRN Q6HRS PRN IV NAUSEA/VOMITING Last administered on 10/07/16 08:28; Start 09/30/16 at 19:30; Stop 10/09/16 at 12:08 ; Status DC Benzocaine (Hurricaine One) 1 spray STK-MED ONCE .ROUTE ; Start 09/30/16 at 19: 51; Stop 09/30/16 at 19:52; Status DC Morphine Sulfate 4 mg PRN Q4HRS PRN IV PAIN Last administered on 10/05/16 08:08 ; Start 10/01/16 at 20:00; Stop 10/05/16 at 10:24; Status DC Clonidine HCl 1 patch 1 patch WEEKLY TD Last administered on 10/03/16at 12:30; Start 10/03/16 at 10:00; Stop 10/05/16 at 10:24; Status DC Piperacillin Sod/ Tazobactam Sod/ Sodium Chloride (Zosyn/Iv Sodium Chloride 0.9 % 50ml) 50 ml @ 100 mls/hr Q6HRS IV Last administered on 10/09/16 06:26; Start 10/04/16 at 11:00; Stop 10/09/16 at 10:55; Status DC Vancomycin HCl 1 each 1 each PRN DAILY PRN MC SEE COMMENTS Last administered on 10/07/16 11:11; Start 10/04/16 at 10:15; Stop 10/07/16 at 11:28; Status DC Vancomycin HCl/ Sodium Chloride (Iv Sodium Chloride 0.9% 250ml) 250 ml @ 250 mls/hr Q24H IV ; Start 10/04/16 at 10:15; Status UNV Labetalol HCl (Normodyne) 20 mg PRN Q6HRS PRN IVP HYPERTENSION, SEE COMMENTS; Start 10/04/16 at 10:15; Stop 10/05/16 at 10:24; Status DC Hydralazine HCl 10 mg 10 mg PRN Q6HRS PRN IVP ELEVATED BP, SEE COMMENTS Last administered on 10/06/16 19:17; Start 10/04/16 at 10:15; Stop 10/12/16 at 10:40 ; Status DC Amino Acids/ Glycerin/ Electrolytes 1,000 ml @ 40 mls/hr Q24H IV Last administered on 10/06/16 09:59; Start 10/04/16 at 10:15; Stop 10/07/16 at 09:06 ; Status DC Vancomycin HCl 2 gm/Sodium Chloride 500 ml @ 250 mls/hr 1X ONCE IV Last administered on 10/04/16at 11:26; Start 10/04/16 at 10:45; Stop 10/04/16 at 12 :44; Status DC Vancomycin HCl/ Sodium Chloride (Iv Sodium Chloride 0.9% 500ml Bag) 500 ml @ 250 mls/hr Q24H IV Last administered on 10/06/16 11:47; Start 10/05/16 at 12:00 ; Stop 10/07/16 at 11:28; Status DC Vancomycin HCl 1 each 1X ONCE MC Last administered on 10/06/16 11:30; Start at 11:30; Stop 10/06/16 at 11:31; Status DC Aspirin (Children'S Aspirin) 81 mg [id number] PO Last administered on 10/13/16 08:15; Start 10/05/16 at 11:00; Stop 10/13/16 at 08:29; Status DC Gabapentin (Neurontin) 600 mg QID PO Last administered on 10/13/16 08:14; Start 10/05/16 at 13:00; Stop 10/14/16 at 08:47; Status DC Levetiracetam (Keppra) 250 mg BID PO Last administered on 10/13/16 08:17; Start 10/05/16 at 11:00; Stop 10/14/16 at 08:47; Status DC Levothyroxine Sodium (Synthroid) 100 mcg DAILY07 PO Last administered on 05:08; Start 10/05/16 at 10:30; Stop 10/14/16 at 08:48; Status DC Metoprolol Succinate (Toprol Xl) 25 mg DAILY PO Last administered on 10/13/16 08:16; Start 10/05/16 at 11:00; Stop 10/14/16 at 08:47; Status DC Pramipexole Dihydrochloride (miraPEX) 0.5 mg [id number] PO Last administered on 10/13 08:15; Start 10/05/16 at 11:00; Stop 10/14/16 at 08:48; Status DC Simvastatin (Zocor) 20 mg HS PO Last administered on 10/12/16 21:07; Start 10/05 at 21:00; Stop 10/14/16 at 08:48; Status DC Carbidopa/Levodopa (Sinemet Cr) 1 tab.sa TID PO Last administered on 10/13/16 08:16; Start 10/05/16 at 11:00; Stop 10/14/16 at 08:48; Status DC Tamsulosin HCl (Flomax) 0.4 mg QHS PO Last administered on 10/12/16 21:07; Start 10/05/16 at 21:00; Stop 10/14/16 at 08:48; Status DC Tramadol HCl (Ultram) 50 mg QID PO Last administered on 10/13/16 08:17; Start 10/05/16 at 13:00; Stop 10/14/16 at 08:48; Status DC Acetaminophen (Tylenol) 650 mg PRN Q4HRS PRN PO MILD PAIN / TEMP Last administered on 10/13/16 00:17; Start 10/05/16 at 10:15; Stop 10/14/16 at 08:48; Status DC Prednisone (Prednisone) 20 mg 1X ONCE PO Last administered on 10/06/16 11:01; Start 10/06/16 at 10:30; Stop 10/06/16 at 10:31; Status DC Prednisone (Prednisone) 10 mg DAILY08 PO Last administered on 10/13/16 08:15; Start 10/07/16 at 08:00; Stop 10/13/16 at 08:29; Status DC Al Hydroxide/Mg Hydroxide (Mylanta Plus Xs) 30 ml PRN Q4HRS PRN PO HEARTBURN / GAS Last administered on 10/12/16 21:07; Start 10/07/16 at 08:45; Stop 10/14/16 at 08:48; Status DC Pantoprazole Sodium (Protonix) 40 mg DAILYAC PO Last administered on 10/13/16 05:08; Start 10/07/16 at 10:00; Stop 10/13/16 at 06:45; Status DC Furosemide 40 mg 40 mg DAILY PO Last administered on 10/08/16 08:42; Start 10/07 at 10:00; Stop 10/08/16 at 08:56; Status DC Sodium Chloride (Iv Sodium Chloride 0.45%) 1,000 ml @ 60 mls/hr CONT PRN IV . ; Start 10/08/16 at 09:00; Stop 10/08/16 at 16:06; Status DC Bisacodyl 10 mg 10 mg 1X ONCE DC Last administered on 10/08/16 10:11; Start at 09:30; Stop 10/08/16 at 09:31; Status DC Sodium Chloride (Iv Sodium Chloride 0.45%) 1,000 ml @ 60 mls/hr [id number] IV Last administered on 10/09/16 02:52; Start 10/08/16 at 10:15; Stop 10/09/16 at 12: 00; Status DC Cefpodoxime Proxetil (Vantin) 200 mg BID PO ; Start 10/09/16 at 11:00; Stop at 12:08; Status DC Cefpodoxime Proxetil (Vantin) 100 mg BID PO Last administered on 10/13/16 08:16 ; Start 10/09/16 at 21:00; Stop 10/13/16 at 08:29; Status DC Ondansetron HCl (Zofran) 4 mg STK-MED ONCE .ROUTE Last administered on 01:24; Start 10/13/16 at 01:19; Stop 10/13/16 at 01:20; Status DC Ondansetron HCl (Zofran) 4 mg PRN Q6HRS PRN IV NAUSEA/VOMITING Last administered on 10/15/16 04:42; Start 10/13/16 at 02:00 Pantoprazole Sodium 40 mg 40 mg DAILYAC IVP Last administered on 10/16/16 09: 09; Start 10/13/16 at 07:30 Dextrose/Sodium Chloride (Iv D5% - NS) 1,000 ml @ 60 mls/hr [id number] IV Last administered on 10/13/16 09:25; Start 10/13/16 at 08:30; Stop 10/13/16 at 11:01; Status DC Sodium Polystyrene Sulfonate 15 gm 15 gm 1X ONCE PO Last administered on 09:26; Start 10/13/16 at 08:30; Stop 10/13/16 at 08:31; Status DC Piperacillin Sod/ Tazobactam Sod 3.375 gm/Sodium Chloride 50 ml @ 100 mls/hr Q6HRS IV Last administered on 10/16/16 05:49; Start 10/13/16 at 09:00 Dextrose/Sodium Chloride (Iv D5% - 1/2 NS) 1,000 ml @ 50 mls/hr Q20H IV Last administered on 10/15/16 22:19; Start 10/13/16 at 11:00 Ondansetron HCl (Zofran) 4 mg PRN Q6HRS PRN IV Nausea 1ST CHOICE; Start at 12:30; Stop 10/14/16 at 11:07; Status DC Fentanyl Citrate (Fentanyl 2ml Vial) 25 mcg PRN Q5MIN PRN IV MILD PAIN; Start 10/13/16 at 12:30; Stop 10/14/16 at 11:04; Status DC Fentanyl Citrate (Fentanyl 2ml Vial) 50 mcg PRN Q5MIN PRN IV MODERATE PAIN; Start 10/13/16 at 12:30; Stop 10/14/16 at 11:04; Status DC Morphine Sulfate 1 mg 1 mg PRN Q10MIN PRN IV SEVERE PAIN; Start 10/13/16 at 12: 30; Stop 10/14/16 at 11:00; Status DC Lactated Ringer's (Iv Lactated Ringers) 1,000 ml @ 0 mls/hr Q0M IV ; Start 10/13 at 12:17; Stop 10/14/16 at 00:16; Status DC Lidocaine HCl 2 ml 1X PRN PRN ID IV START; Start 10/13/16 at 12:30; Stop at 16:03; Status DC Hydromorphone HCl (Dilaudid) 0.5 mg PRN Q10MIN PRN IV SEV PAIN,Second choice; Start 10/13/16 at 12:30; Stop 10/14/16 at 11:04; Status DC Prochlorperazine Edisylate (Compazine) 5 mg PACU PRN PRN IV NAUSEA; Start at 12:30; Stop 10/14/16 at 11:00; Status DC Fentanyl Citrate (Fentanyl 2ml Vial) 50 mcg PRN Q5MIN PRN IV Acute Pain Last administered on 10/14/16t 10:04; Start 10/13/16 at 13:00; Stop 10/14/16 at 11:04 ; Status DC Morphine Sulfate 4 mg PRN Q10MIN PRN IV Moderate Pain; Start 10/13/16 at 13:00; Stop 10/14/16 at 11:00; Status DC Hydromorphone HCl (Dilaudid) 0.4 mg PRN Q10MIN PRN IV Moderate to severe pain; Start 10/13/16 at 13:00; Stop 10/14/16 at 11:04; Status DC Meperidine HCl (Demerol) 12.5 mg PRN Q5MIN PRN IV SHIVERING; Start 10/13/16 at 13:00; Stop 10/14/16 at 11:00; Status DC Prochlorperazine Edisylate (Compazine) 5 mg PRN Q6HRS PRN IV Nausea/Vomiting, 1st Choice; Start 10/13/16 at 13:00; Stop 10/14/16 at 11:00; Status DC Diphenhydramine HCl (Benadryl) 12.5 mg PRN Q2HR PRN IV ITCHING; Start 10/13/16 at 13:00; Stop 10/14/16 at 11:00; Status DC Midazolam HCl (Versed) 2 mg PRN 1X PRN IV PRIOR TO PROCEDURE; Start 10/13/16 at 13:00; Stop 10/14/16 at 11:07; Status DC Midazolam HCl (Versed) 1 mg PRN 1X PRN IV PRIOR TO PROCEDURE; Start 10/13/16 at 13:00; Stop 10/14/16 at 11:07; Status DC Fentanyl Citrate (Fentanyl 2ml Vial) 25 mcg PRN Q5MIN PRN IV X 2 DOSES FOR PAIN ; Start 10/13/16 at 13:00; Stop 10/14/16 at 11:04; Status DC Fentanyl Citrate 50 mcg 50 mcg PRN Q5MIN PRN IV X 2 DOSES FOR PAIN; Start at 13:00; Stop 10/14/16 at 11:04; Status DC Lactated Ringer's (Iv Lactated Ringers) 1,000 ml @ 125 mls/hr Q8H IV Last administered on 10/13/16 13:30; Start 10/13/16 at 12:48; Stop 10/14/16 at 00:47; Status DC Lidocaine HCl 2 ml 1X PRN PRN ID IV START; Start 10/13/16 at 13:00; Stop at 16:03; Status DC Fentanyl Citrate (Fentanyl 2ml Vial) 25 mcg PRN Q2HR PRN IV PAIN MOD TO SEV; Start 10/13/16 at 20:30; Stop 10/14/16 at 14:15; Status DC Fentanyl Citrate (Fentanyl 2ml Vial) 50 mcg PRN Q2HR PRN IV PAIN MOD TO SEV Last administered on 10/14/16 12:02; Start 10/13/16 at 20:30; Stop 10/14/16 at 14:15; Status DC Enoxaparin Sodium (Lovenox 40mg Syringe) 40 mg Q24H SQ Last administered on t 09:06; Start 10/14/16 at 09:00 Fentanyl Citrate 100 mcg 100 mcg STK-MED ONCE .ROUTE ; Start 10/13/16 at 13:27; Stop 10/14/16 at 07:31; Status DC Propofol (Diprivan) 20 ml @ As Directed STK-MED ONCE IV ; Start 10/13/16 at 13:27 ; Stop 10/14/16 at 07:31; Status DC Rocuronium Rifle (Zemuron) 50 mg STK-MED ONCE .ROUTE ; Start 10/13/16 at 13:27 ; Stop 10/14/16 at 07:31; Status DC Lidocaine HCl 100 mg STK-MED ONCE .ROUTE ; Start 10/13/16 at 13:27; Stop at 07:31; Status DC Fentanyl Citrate (Fentanyl 2ml Vial) 100 mcg STK-MED ONCE .ROUTE ; Start at 13:27; Stop 10/14/16 at 07:31; Status DC Ephedrine Sulfate (Akovaz) 50 mg STK-MED ONCE .ROUTE ; Start 10/13/16 at 14:00; Stop 10/14/16 at 07:31; Status DC Phenylephrine HCl 1 mg STK-MED ONCE IV ; Start 10/13/16 at 14:25; Stop 10/14/16 at 07:31; Status DC Desflurane (Suprane) 60 ml STK-MED ONCE IH ; Start 10/13/16 at 14:25; Stop at 07:31; Status DC Dexamethasone Sodium Phosphate (Decadron) 20 mg STK-MED ONCE .ROUTE ; Start 10/13 at 14:25; Stop 10/14/16 at 07:31; Status DC Ondansetron HCl (Zofran) 4 mg STK-MED ONCE .ROUTE ; Start 10/13/16 at 14:25; Stop 10/14/16 at 07:31; Status DC Famotidine (Pepcid) 20 mg STK-MED ONCE .ROUTE ; Start 10/13/16 at 14:25; Stop 07/21 at 07:31; Status DC Rocuronium Rifle (Zemuron) 50 mg STK-MED ONCE .ROUTE ; Start 10/13/16 at 16:19 ; Stop 10/14/16 at 07:31; Status DC Fentanyl Citrate (Fentanyl 2ml Vial) 100 mcg STK-MED ONCE .ROUTE ; Start at 16:21; Stop 10/14/16 at 07:31; Status DC Desflurane (Suprane) 90 ml STK-MED ONCE IH ; Start 10/13/16 at 16:53; Stop at 07:31; Status DC Glycopyrrolate (Robinul) 1 mg STK-MED ONCE .ROUTE ; Start 10/13/16 at 17:00; Stop 10/14/16 at 07:31; Status DC Neostigmine Methylsulfate 5 mg STK-MED ONCE .ROUTE ; Start 10/13/16 at 17:00; Stop 10/14/16 at 07:31; Status DC Phenylephrine HCl 1 mg STK-MED ONCE IV ; Start 10/13/16 at 18:14; Stop 10/14/16 at 07:31; Status DC Fentanyl Citrate (Fentanyl 2ml Vial) 100 mcg STK-MED ONCE .ROUTE ; Start at 18:20; Stop 10/14/16 at 07:31; Status DC Fentanyl Citrate 100 mcg 100 mcg STK-MED ONCE .ROUTE ; Start 10/13/16 at 19:17; Stop 10/14/16 at 07:31; Status DC Levetiracetam 500 mg/Sodium Chloride 105 ml @ 400 mls/hr Q12HR IV Last administered on 10/16/16 09:18; Start 10/14/16 at 09:00 Amino Acids/ Glycerin/ Electrolytes (Procalamine) 1,000 ml @ 80 mls/hr [id number] IV Last administered on 10/16/16 09:16; Start 10/14/16 at 11:15 Morphine Sulfate 2 mg PRN Q4HRS PRN IV MODERATE PAIN Last administered on 22:32; Start 10/14/16 at 14:15 Morphine Sulfate 4 mg PRN Q4HRS PRN IV SEVERE PAIN Last administered on 09:10; Start 10/14/16 at 14:30 Active Scripts Active Hydrocodone-Apap 5-325 (Hydrocodone Bit/Acetaminophen) 1 Each Tablet 1 Tab PO PRN Q6HRS PRN Metoprolol Succinate ( Xl ) (Metoprolol Succinate) 25 Mg Tab.er.24h 25 Mg PO DAILY Reported Flomax (Tamsulosin Hcl) 0.4 Mg Cap.er.24h 1 Cap PO QHS Tramadol Hcl 100 Mg Tab.er.24h 100 Mg PO QID Levetiracetam 250 Mg Tablet 250 Mg PO BID Dulcolax (Bisacodyl) 10 Mg Supp.rect 10 Mg RC PRN DAILY PRN Maalox Advanced Suspension (Mag Hydrox/Al Hydrox/Simeth) 770 Ml Oral.susp 30 Ml PO Q2HR PRN Milk Of Magnesia (Magnesium Hydroxide) 400 Mg/5 Ml Oral.susp 30 Ml PO DAILY PRN Robitussin Cough-Chest Dm Liq (Guaifenesin/Dextromethorphan) 118 Ml Liquid 10 Ml PO Q4HRS PRN Trazodone Hcl 50 Mg Tablet 1 Tab PO QHS Tylenol (Acetaminophen) 325 Mg Tablet 650 Mg PO Q6HRS PRN Pramipexole Dihydrochloride (Pramipexole Di-Hcl) 0.5 Mg Tablet 0.5 Mg PO TID Simvastatin 20 Mg Tablet 1 Tab PO QHS Levothyroxine Sodium 100 Mcg Tablet 1 Tab PO DAILY Gabapentin 800 Mg Tablet 800 Mg PO QID Sinemet 25-100 Mg Tablet (Carbidopa/Levodopa) 1 Each Tablet 2 Tab PO TID Aspirin 81 Mg Tab.chew 1 Tab PO DAILY Vitals/I & O Vital Sign - Last 24 Hours 10/15/16 10/15/16 10/15/16 10/15/16 11:00 13:10 15:00 18:10 Temp 98.1 98.6 98.1 98.6 Pulse 97 64 Resp 20 20 20 20 B/P 113/50 115/64 Pulse Ox 91 98 O2 Delivery Nasal Cannula Nasal Cannula Nasal Cannula Nasal Cannula O2 Flow Rate 3.0 2.0 3.0 2.0 10/15/16 10/15/16 10/15/16 10/15/16 19:00 20:00 22:32 23:00 Temp 98.2 98.3 98.2 98.3 Pulse 90 95 Resp 20 20 20 B/P 146/66 138/65 Pulse Ox 93 93 97 O2 Delivery Nasal Cannula Nasal Cannula Nasal Cannula Nasal Cannula O2 Flow Rate 3.0 2.0 2.0 3.0 10/15/16 10/16/16 10/16/16 10/16/16 23:02 03:00 03:46 04:16 Temp 98.1 98.1 Pulse 107 Resp 18 20 20 18 B/P 129/74 Pulse Ox 97 97 97 97 O2 Delivery Nasal Cannula Nasal Cannula Nasal Cannula Nasal Cannula O2 Flow Rate 3.0 3.0 3.0 3.0 10/16/16 10/16/16 07:00 09:10 Temp 98.8 98.8 Pulse 91 Resp 20 20 B/P 157/56 Pulse Ox 92 O2 Delivery Nasal Cannula Nasal Cannula O2 Flow Rate 3.0 2.0 Intake and Output 10/15/16 10/15/16 10/16/16 15:00 23:00 07:00 Output Total 2200 ml 3650 ml Balance -2200 ml -3650 ml RICHARD [place] MD Oct 16, 2016 10:50
[2016-10-16 11:00] VITALS: BP 139/61
--- NOTE | 2016-10-16 11:30 | PDOC ---
Renal-Progress Notes Subjective Notes Notes NONE History of Present Illness Hx of present illness STABLE BUT STILL HAS ILEUS Vitals Vitals Vital Signs Date Time Temp Pulse Resp B/P Pulse Ox O2 Delivery O2 Flow Rate FiO2 10/16/16 11:00 97.4 94 20 139/61 94 Nasal Cannula 3.0 97.4 Weight Weight [ ] I.O. Intake and Output Intake and Output 10/16/16 07:00 Output Total 5850 ml Balance -5850 ml Output Urine Total 5850 ml Labs Labs Laboratory Tests Test 10/16/16 07:35 White Blood Count 10.0x10^3/uL (4.0-11.0) Red Blood Count 2.56x10^6/uL (4.30-5.70) Hemoglobin 8.3g/dL (13.0-17.5) Hematocrit 25.5% (39.0-53.0) Mean Corpuscular Volume 100fL (79-100) Mean Corpuscular Hemoglobin 32pg (25-35) Mean Corpuscular Hemoglobin Concent 33g/dL (31-37) Red Cell Distribution Width 15.6% (11.5-14.5) Platelet Count 255x10^3/uL (140-400) Neutrophils (%) (Auto) 80% (31-73) Lymphocytes (%) (Auto) 12% (24-48) Monocytes (%) (Auto) 5% (0-9) Eosinophils (%) (Auto) 3% (0-3) Basophils (%) (Auto) 0% (0-3) Neutrophils # (Auto) 8.0x10^3uL (1.8-7.7) Lymphocytes # (Auto) 1.2x10^3/uL (1.0-4.8) Monocytes # (Auto) 0.5x10^3/uL (0.0-1.1) Eosinophils # (Auto) 0.3x10^3/uL (0.0-0.7) Basophils # (Auto) 0.0x10^3/uL (0.0-0.2) Sodium Level 139mmol/L (136-145) Potassium Level 4.4mmol/L (3.5-5.1) Chloride Level 105mmol/L (98-107) Carbon Dioxide Level 28mmol/L (21-32) Anion Gap 6 (6-14) Blood Urea Nitrogen 28mg/dL (8-26) Creatinine 1.4mg/dL (0.7-1.3) Estimated GFR (Cockcroft-Gault) 48.2 Glucose Level 128mg/dL (70-99) Calcium Level 8.3mg/dL (8.5-10.1) Magnesium Level 2.3mg/dL (1.8-2.4) Micro Micro Microbiology 10/13/16 Blood Culture - Preliminary, Resulted NO GROWTH AFTER 3 DAYS 10/13/16 Urine Culture - Final, Complete 10/13/16 Urine Culture Result 1 (MANDEEP) - Final, Complete Review of Systems Constitutional: yes: no symptom reported Physical Exam General Appearance: no apparent distress Skin: warm Respiratory: bilateral CTA Heart: S1S2, RRR Abdomen: soft, bowel sounds present Extremities: pulses present Neurology: alert Assessment Assessment IMP TAYLOR-IMPROVED CR AT BASELINE OF 1.4 CKD STAGE 3 DEHYDRATION-BETTER HYPERKALEMIA - RESOLVED SBO PLAN CHANGE PPN TO TPN WILL FOLLOW CONI GLYNN MD Oct 16, 2016 11:30
--- NOTE | 2016-10-16 12:39 | PDOC ---
Subjective: Subjective: Abd pain (improved w/ meds), no nausea, no flatus. Objective: Vital Signs: Vital Signs Date Time Temp Pulse Resp B/P Pulse Ox O2 Delivery O2 Flow Rate FiO2 10/16/16 11:00 97.4 94 20 139/61 94 Nasal Cannula 3.0 97.4 Labs: Laboratory Tests Test 10/16/16 07:35 White Blood Count 10.0x10^3/uL Red Blood Count 2.56x10^6/uL Hemoglobin 8.3g/dL Hematocrit 25.5% Mean Corpuscular Volume 100fL Mean Corpuscular Hemoglobin 32pg Mean Corpuscular Hemoglobin Concent 33g/dL Red Cell Distribution Width 15.6% Platelet Count 255x10^3/uL Neutrophils (%) (Auto) 80% Lymphocytes (%) (Auto) 12% Monocytes (%) (Auto) 5% Eosinophils (%) (Auto) 3% Basophils (%) (Auto) 0% Neutrophils # (Auto) 8.0x10^3uL Lymphocytes # (Auto) 1.2x10^3/uL Monocytes # (Auto) 0.5x10^3/uL Eosinophils # (Auto) 0.3x10^3/uL Basophils # (Auto) 0.0x10^3/uL Sodium Level 139mmol/L Potassium Level 4.4mmol/L Chloride Level 105mmol/L Carbon Dioxide Level 28mmol/L Anion Gap 6 Blood Urea Nitrogen 28mg/dL Creatinine 1.4mg/dL Estimated GFR (Cockcroft-Gault) 48.2 Glucose Level 128mg/dL Calcium Level 8.3mg/dL Magnesium Level 2.3mg/dL PE: GEN: NAD, tremulous LUNGS: nasal cannula HEART: RRR ABD: BS+ (more active) NEURO/PSYCH: A & O 3 A/P: S/p exp lap 10/13/15 w/ CONG, h/o SBOs -NPO, on PPN -on IV PPI -- Continue same. GAYLA CLEMENTE Oct 16, 2016 12:39
[2016-10-16 15:00] VITALS: BP 170/87
[2016-10-16] MEDS: TPN PER PHARMACY MC PRN ×2 (16:07→16:09)
[2016-10-16 19:20] VITALS: BP 187/86
[2016-10-16] MEDS ORDERED: TOTAL PARENTERAL NUTRITION 1,424.9987 ML, AMINO ACIDS 10 % 60 GM, DEXTROSE 70 % IN WATE... IV SCH ×10 (22:00)
[2016-10-16 23:48] VITALS: BP 156/72
[2016-10-17] MEDS: PIPERACILLIN/TAZOBACTAM 3.375 GM in IV NORMAL SALINE 50ML 50 ML IV SCH ×5 (00:16→23:28)
[2016-10-17] MEDS: IV DEXTROSE 5 %-0.45 % NACL 1,000 ML IV SCH (00:16)
[2016-10-17] MEDS: ONDANSETRON PF 4 MG/2 ML VIAL. IV PRN (00:20)
[2016-10-17] MEDS: MORPHINE SULFATE 4 MG/ML DISP.SYRIN. IV PRN ×4 (01:45→15:57)
[2016-10-17 03:00] VITALS: BP 134/74
[2016-10-17 07:00] VITALS: BP 165/75
[2016-10-17] MEDS ORDERED: LIDOCAINE 1% / SOD BICARB 8.4% 20 ML VIAL. IJ ONE ×2 (08:20→08:30)
[2016-10-17 08:43] LABS: BASO % 0 % (0-3); EOS % 2 % (0-3); HEMATOCRIT 25.5 % (39.0-53.0); HEMOGLOBIN 8.3 g/dL (13.0-17.5); LYMPH # 1.3 x10^3/uL (1.0-4.8); LYMPH % 12 % (24-48); MEAN CORPUSCULAR HEMOGLOBIN 32 pg (25-35); MEAN CORPUSCULAR HGB CONC 32 g/dL (31-37); MEAN CORPUSCULAR VOLUME 99 fL (79-100); MONO % 8 % (0-9); NEUT % 77 % (31-73); PLATELET COUNT 269 x10^3/uL (140-400); RED BLOOD COUNT 2.57 x10^6/uL (4.30-5.70); RED CELL DISTRIBUTION WIDTH 15.7 % (11.5-14.5); WHITE BLOOD COUNT 10.4 x10^3/uL (4.0-11.0)
[2016-10-17 08:44] LABS: CALCIUM 8.2 mg/dL (8.5-10.1); CREATININE 1.4 mg/dL (0.7-1.3); GFR 48.2; MAGNESIUM 2.2 mg/dL (1.8-2.4); POTASSIUM 4.3 mmol/L (3.5-5.1)
[2016-10-17] MEDS ORDERED: IOHEXOL 300 MG/ML 50 ML VIAL. ONE (09:02)
[2016-10-17] MEDS ORDERED: IOHEXOL 300 MG/ML 50 ML VIAL. IART ONE (09:30)
--- NOTE | 2016-10-17 09:39 | PDOC ---
Exam Scrap Collector Scrap Collector Petra Lockstitch Collar Setter Lockstitch Collar Setter F Ndumbu Pre-Procedure Diagnosis Pre-Procedure Diagnosis S/P exploratory lap--awaiting return of bowel function--centrally positioned Picc needed for TPN---indwelling midline Picc not satisfactory for TPN. Post-Procedure Diagnosis Post-Procedure Diagnosis Same Procedure Performed Procedure Performed Fluoro guided Picc replacement, requiring right upper extremity venogram with MINER ASSISTANT right basilic vein Type of Anesthesia Type of Anesthesia Local Estimated Blood Loss EBL: Minimal Specimens Specimans 4F 1L 18cm right basilic vein midline Picc removed and discarded Drain/Tubes Drains/Tubes 5F 2L 43cm rt basilic vein Power Picc with tip in satisfactory central position. Condition of Patient Condition of Patient No change. No apparent complciation. Disposition Disposition From IR return to [facility]. OK to use Power Picc for blood draws and infusions, including TPN. Full report to follow. EVIE COLEMAN MD Oct 17, 2016 09:39
[2016-10-17] MEDS ORDERED: CONTRAST GIVEN MC PRN (09:45)
--- NOTE | 2016-10-17 10:21 | PDOC ---
PROGRESS NOTES Subjective Subjective vomited small amount of green bile times 1. denies flatus or BM. lab reviewed. PICC just placed. blood pressure has been high. Objective Objective Vital Signs Date Time Temp Pulse Resp B/P Pulse Ox O2 Delivery O2 Flow Rate FiO2 10/17/16 07:30 Nasal Cannula 3.0 10/17/16 07:00 110 16 165/75 95 10/17/16 03:00 98.7 98.7 Intake and Output 10/17/16 07:00 Intake Total 505 ml Output Total 1100 ml Balance -595 ml Intake Oral 0 ml IV Total 505 ml Output Urine Total 1100 ml # Voids 4 Physical Exam Abdomen: Soft, Other (wound okay. bowel sounds heard) Heart: Regular rate, Normal S1, Normal S2 Extremities: Other (edema LUE) General: Alert HEENT: Atraumatic Lungs: Clear to auscultation Neuro: Normal speech Psych/Mental Status: Mood NL Skin: No rashes Assessment Assessment Problems Medical Problems::Small-bowel obstruction resolved exploratory laparotomy 10/13/16. lysis of adhesions. bowel viable. 2. Seizure disorder. 3. Parkinson's disease. 4. Hypothyroidism. 5. Peripheral neuropathy. 6. Hypertension. bp high 7. Chronic kidney disease stage III. klebsiella uti treated suspected gout synovitis resolved peripheral edema improved critical illness myopathy hematemesis resolved LUE edematous. venous doppler LUE negative (1) SBO (small bowel obstruction) Status: Acute Plan Plan of Care start catapress patch prn iv labetolol TPN and iv fluids npo analgesics PT and OT Comment Review of Relevant I have reviewed the following items [place] (where applicable) has been applied. Labs Laboratory Tests Test 10/16/16 07:35 10/17/16 08:20 White Blood Count 10.0x10^3/uL (4.0-11.0) 10.4x10^3/uL (4.0-11.0) Red Blood Count 2.56x10^6/uL (4.30-5.70) 2.57x10^6/uL (4.30-5.70) Hemoglobin 8.3g/dL (13.0-17.5) 8.3g/dL (13.0-17.5) Hematocrit 25.5% (39.0-53.0) 25.5% (39.0-53.0) Mean Corpuscular Volume 100fL (79-100) 99fL (79-100) Mean Corpuscular Hemoglobin 32pg (25-35) 32pg (25-35) Mean Corpuscular Hemoglobin Concent 33g/dL (31-37) 32g/dL (31-37) Red Cell Distribution Width 15.6% (11.5-14.5) 15.7% (11.5-14.5) Platelet Count 255x10^3/uL (140-400) 269x10^3/uL (140-400) Neutrophils (%) (Auto) 80% (31-73) 77% (31-73) Lymphocytes (%) (Auto) 12% (24-48) 12% (24-48) Monocytes (%) (Auto) 5% (0-9) 8% (0-9) Eosinophils (%) (Auto) 3% (0-3) 2% (0-3) Basophils (%) (Auto) 0% (0-3) 0% (0-3) Neutrophils # (Auto) 8.0x10^3uL (1.8-7.7) 8.0x10^3uL (1.8-7.7) Lymphocytes # (Auto) 1.2x10^3/uL (1.0-4.8) 1.3x10^3/uL (1.0-4.8) Monocytes # (Auto) 0.5x10^3/uL (0.0-1.1) 0.9x10^3/uL (0.0-1.1) Eosinophils # (Auto) 0.3x10^3/uL (0.0-0.7) 0.2x10^3/uL (0.0-0.7) Basophils # (Auto) 0.0x10^3/uL (0.0-0.2) 0.0x10^3/uL (0.0-0.2) Sodium Level 139mmol/L (136-145) 138mmol/L (136-145) Potassium Level 4.4mmol/L (3.5-5.1) 4.3mmol/L (3.5-5.1) Chloride Level 105mmol/L (98-107) 105mmol/L (98-107) Carbon Dioxide Level 28mmol/L (21-32) 27mmol/L (21-32) Anion Gap 6 (6-14) 6 (6-14) Blood Urea Nitrogen 28mg/dL (8-26) 26mg/dL (8-26) Creatinine 1.4mg/dL (0.7-1.3) 1.4mg/dL (0.7-1.3) Estimated GFR (Cockcroft-Gault) 48.2 48.2 Glucose Level 128mg/dL (70-99) 133mg/dL (70-99) Calcium Level 8.3mg/dL (8.5-10.1) 8.2mg/dL (8.5-10.1) Magnesium Level 2.3mg/dL (1.8-2.4) 2.2mg/dL (1.8-2.4) Phosphorus Level 2.8mg/dL (2.6-4.7) Triglycerides Level 122mg/dL (0-150) Laboratory Tests Test 10/17/16 08:20 White Blood Count 10.4x10^3/uL (4.0-11.0) Red Blood Count 2.57x10^6/uL (4.30-5.70) Hemoglobin 8.3g/dL (13.0-17.5) Hematocrit 25.5% (39.0-53.0) Mean Corpuscular Volume 99fL (79-100) Mean Corpuscular Hemoglobin 32pg (25-35) Mean Corpuscular Hemoglobin Concent 32g/dL (31-37) Red Cell Distribution Width 15.7% (11.5-14.5) Platelet Count 269x10^3/uL (140-400) Neutrophils (%) (Auto) 77% (31-73) Lymphocytes (%) (Auto) 12% (24-48) Monocytes (%) (Auto) 8% (0-9) Eosinophils (%) (Auto) 2% (0-3) Basophils (%) (Auto) 0% (0-3) Neutrophils # (Auto) 8.0x10^3uL (1.8-7.7) Lymphocytes # (Auto) 1.3x10^3/uL (1.0-4.8) Monocytes # (Auto) 0.9x10^3/uL (0.0-1.1) Eosinophils # (Auto) 0.2x10^3/uL (0.0-0.7) Basophils # (Auto) 0.0x10^3/uL (0.0-0.2) Sodium Level 138mmol/L (136-145) Potassium Level 4.3mmol/L (3.5-5.1) Chloride Level 105mmol/L (98-107) Carbon Dioxide Level 27mmol/L (21-32) Anion Gap 6 (6-14) Blood Urea Nitrogen 26mg/dL (8-26) Creatinine 1.4mg/dL (0.7-1.3) Estimated GFR (Cockcroft-Gault) 48.2 Glucose Level 133mg/dL (70-99) Calcium Level 8.2mg/dL (8.5-10.1) Phosphorus Level 2.8mg/dL (2.6-4.7) Magnesium Level 2.2mg/dL (1.8-2.4) Triglycerides Level 122mg/dL (0-150) Microbiology 10/13/16 Blood Culture - Preliminary, Resulted NO GROWTH AFTER 4 DAYS 10/13/16 Urine Culture - Final, Complete 10/13/16 Urine Culture Result 1 (MANDEEP) - Final, Complete Medications Current Medications Fentanyl Citrate 50 mcg 50 mcg PRN Q15MIN PRN IV PAIN GREATER THAN 3/10 Last administered on 09/30/16at 19:35; Start 09/30/16 at 17:30; Stop 10/01/16 at 04 :24; Status DC Lactated Ringer's (Iv Lactated Ringers) 1,000 ml @ 100 mls/hr Q10H IV Last administered on 09/30/16at 19:35; Start 09/30/16 at 17:28; Stop 10/01/16 at 03 :27; Status DC Ondansetron HCl (Zofran) 4 mg 1X ONCE IV Last administered on 09/30/16at 17:44 ; Start 09/30/16 at 17:30; Stop 09/30/16 at 17:32; Status DC Fentanyl Citrate (Fentanyl 2ml Vial) 50 mcg 1X ONCE IV ; Start 09/30/16 at 19: 15; Stop 10/01/16 at 04:24; Status DC Ondansetron HCl (Zofran) 4 mg PRN Q8HRS PRN IV NAUSEA/VOMITING Last administered on 09/30/16at 22:07; Start 09/30/16 at 19:15; Stop 10/01/16 at 19 :14; Status DC Fentanyl Citrate 50 mcg 50 mcg PRN Q2HR PRN IV PAIN Last administered on at 16:54; Start 09/30/16 at 19:15; Stop 10/01/16 at 19:14; Status DC Sodium Chloride 1,000 ml @ 100 mls/hr Q10H IV ; Start 09/30/16 at 19:30; Stop 10/01/16 at 04:24; Status DC Potassium Chloride/Dextrose/ Sod Cl (KCl 20 Meq In D5W-1/2 NS) 1,000 ml @ 125 mls/hr Q8H IV Last administered on 10/04/16at 06:02; Start 09/30/16 at 20:00; Stop 10/04/16 at 10:21; Status DC Enoxaparin Sodium 40 mg 40 mg Q24H SQ Last administered on 10/13/16 08:14; Start 10/01/16 at 09:00; Stop 10/13/16 at 08:36; Status DC Levetiracetam/ Sodium Chloride (Keppra/Iv Sodium Chloride 0.9% 100ml) 105 ml @ 400 mls/hr Q12HR IV Last administered on 10/05/16 09:30; Start 09/30/16 at 21: 00; Stop 10/05/16 at 10:24; Status DC Morphine Sulfate 2 mg PRN Q4HRS PRN IV SEVERE PAIN Last administered on 10:13; Start 09/30/16 at 19:30; Stop 10/05/16 at 10:24; Status DC Acetaminophen (Tylenol) 650 mg PRN Q6HRS PRN VA MILD PAIN / TEMP; Start at 19:30; Stop 10/05/16 at 10:24; Status DC Ondansetron HCl (Zofran) 4 mg PRN Q6HRS PRN IV NAUSEA/VOMITING Last administered on 10/07/16 08:28; Start 09/30/16 at 19:30; Stop 1/5/17 at 12:08 ; Status DC Benzocaine (Hurricaine One) 1 spray STK-MED ONCE .ROUTE ; Start 09/30/16 at 19: 51; Stop 09/30/16 at 19:52; Status DC Morphine Sulfate 4 mg PRN Q4HRS PRN IV PAIN Last administered on 10/05/16 08:08 ; Start 10/01/16 at 20:00; Stop 10/05/16 at 10:24; Status DC Clonidine HCl 1 patch 1 patch WEEKLY TD Last administered on 10/03/16at 12:30; Start 10/03/16 at 10:00; Stop 10/05/16 at 10:24; Status DC Piperacillin Sod/ Tazobactam Sod/ Sodium Chloride (Zosyn/Iv Sodium Chloride 0.9 % 50ml) 50 ml @ 100 mls/hr Q6HRS IV Last administered on 10/09/16 06:26; Start 10/04/16 at 11:00; Stop 10/09/16 at 10:55; Status DC Vancomycin HCl 1 each 1 each PRN DAILY PRN MC SEE COMMENTS Last administered on 10/07/16 11:11; Start 10/04/16 at 10:15; Stop 10/07/16 at 11:28; Status DC Vancomycin HCl/ Sodium Chloride (Iv Sodium Chloride 0.9% 250ml) 250 ml @ 250 mls/hr Q24H IV ; Start 10/04/16 at 10:15; Status UNV Labetalol HCl (Normodyne) 20 mg PRN Q6HRS PRN IVP HYPERTENSION, SEE COMMENTS; Start 10/04/16 at 10:15; Stop 10/05/16 at 10:24; Status DC Hydralazine HCl 10 mg 10 mg PRN Q6HRS PRN IVP ELEVATED BP, SEE COMMENTS Last administered on 10/06/16 19:17; Start 10/04/16 at 10:15; Stop 10/12/16 at 10:40 ; Status DC Amino Acids/ Glycerin/ Electrolytes 1,000 ml @ 40 mls/hr Q24H IV Last administered on 10/06/16 09:59; Start 10/04/16 at 10:15; Stop 10/07/16 at 09:06 ; Status DC Vancomycin HCl 2 gm/Sodium Chloride 500 ml @ 250 mls/hr 1X ONCE IV Last administered on 10/04/16at 11:26; Start 10/04/16 at 10:45; Stop 10/04/16 at 12 :44; Status DC Vancomycin HCl/ Sodium Chloride (Iv Sodium Chloride 0.9% 500ml Bag) 500 ml @ 250 mls/hr Q24H IV Last administered on 10/06/16 11:47; Start 10/05/16 at 12:00 ; Stop 10/07/16 at 11:28; Status DC Vancomycin HCl 1 each 1X ONCE MC Last administered on 10/06/16 11:30; Start at 11:30; Stop 10/06/16 at 11:31; Status DC Aspirin (Children'S Aspirin) 81 mg [id number] PO Last administered on 10/13/16 08:15; Start 10/05/16 at 11:00; Stop 10/13/16 at 08:29; Status DC Gabapentin (Neurontin) 600 mg QID PO Last administered on 10/13/16 08:14; Start 10/05/16 at 13:00; Stop 10/14/16 at 08:47; Status DC Levetiracetam (Keppra) 250 mg BID PO Last administered on 10/13/16 08:17; Start 10/05/16 at 11:00; Stop 10/14/16 at 08:47; Status DC Levothyroxine Sodium (Synthroid) 100 mcg DAILY07 PO Last administered on 05:08; Start 10/05/16 at 10:30; Stop 10/14/16 at 08:48; Status DC Metoprolol Succinate (Toprol Xl) 25 mg DAILY PO Last administered on 10/13/16 08:16; Start 10/05/16 at 11:00; Stop 10/14/16 at 08:47; Status DC Pramipexole Dihydrochloride (miraPEX) 0.5 mg [id number] PO Last administered on 10/13 08:15; Start 10/05/16 at 11:00; Stop 10/14/16 at 08:48; Status DC Simvastatin (Zocor) 20 mg HS PO Last administered on 10/12/16 21:07; Start 10/05 at 21:00; Stop 10/14/16 at 08:48; Status DC Carbidopa/Levodopa (Sinemet Cr) 1 tab.sa TID PO Last administered on 10/13/16 08:16; Start 10/05/16 at 11:00; Stop 10/14/16 at 08:48; Status DC Tamsulosin HCl (Flomax) 0.4 mg QHS PO Last administered on 10/12/16 21:07; Start 10/05/16 at 21:00; Stop 10/14/16 at 08:48; Status DC Tramadol HCl (Ultram) 50 mg QID PO Last administered on 10/13/16 08:17; Start 10/05/16 at 13:00; Stop 10/14/16 at 08:48; Status DC Acetaminophen (Tylenol) 650 mg PRN Q4HRS PRN PO MILD PAIN / TEMP Last administered on 10/13/16 00:17; Start 10/05/16 at 10:15; Stop 10/14/16 at 08:48; Status DC Prednisone (Prednisone) 20 mg 1X ONCE PO Last administered on 10/06/16 11:01; Start 10/06/16 at 10:30; Stop 10/06/16 at 10:31; Status DC Prednisone (Prednisone) 10 mg DAILY08 PO Last administered on 10/13/16 08:15; Start 10/07/16 at 08:00; Stop 10/13/16 at 08:29; Status DC Al Hydroxide/Mg Hydroxide (Mylanta Plus Xs) 30 ml PRN Q4HRS PRN PO HEARTBURN / GAS Last administered on 10/12/16 21:07; Start 10/07/16 at 08:45; Stop 10/14/16 at 08:48; Status DC Pantoprazole Sodium (Protonix) 40 mg DAILYAC PO Last administered on 10/13/16 05:08; Start 10/07/16 at 10:00; Stop 10/13/16 at 06:45; Status DC Furosemide 40 mg 40 mg DAILY PO Last administered on 10/08/16 08:42; Start 10/07 at 10:00; Stop 10/08/16 at 08:56; Status DC Sodium Chloride (Iv Sodium Chloride 0.45%) 1,000 ml @ 60 mls/hr CONT PRN IV . ; Start 10/08/16 at 09:00; Stop 10/08/16 at 16:06; Status DC Bisacodyl 10 mg 10 mg 1X ONCE VA Last administered on 10/08/16 10:11; Start at 09:30; Stop 10/08/16 at 09:31; Status DC Sodium Chloride (Iv Sodium Chloride 0.45%) 1,000 ml @ 60 mls/hr [id number] IV Last administered on 10/09/16 02:52; Start 10/08/16 at 10:15; Stop 10/09/16 at 12: 00; Status DC Cefpodoxime Proxetil (Vantin) 200 mg BID PO ; Start 10/09/16 at 11:00; Stop at 12:08; Status DC Cefpodoxime Proxetil (Vantin) 100 mg BID PO Last administered on 10/13/16 08:16 ; Start 10/09/16 at 21:00; Stop 10/13/16 at 08:29; Status DC Ondansetron HCl (Zofran) 4 mg STK-MED ONCE .ROUTE Last administered on 01:24; Start 10/13/16 at 01:19; Stop 10/13/16 at 01:20; Status DC Ondansetron HCl (Zofran) 4 mg PRN Q6HRS PRN IV NAUSEA/VOMITING Last administered on 10/17/16 00:20; Start 10/13/16 at 02:00 Pantoprazole Sodium 40 mg 40 mg DAILYAC IVP Last administered on 10/16/16 09: 09; Start 10/13/16 at 07:30 Dextrose/Sodium Chloride (Iv D5% - NS) 1,000 ml @ 60 mls/hr [id number] IV Last administered on 10/13/16 09:25; Start 10/13/16 at 08:30; Stop 10/13/16 at 11:01; Status DC Sodium Polystyrene Sulfonate 15 gm 15 gm 1X ONCE PO Last administered on 09:26; Start 10/13/16 at 08:30; Stop 10/13/16 at 08:31; Status DC Piperacillin Sod/ Tazobactam Sod 3.375 gm/Sodium Chloride 50 ml @ 100 mls/hr Q6HRS IV Last administered on 10/17/16 05:08; Start 10/13/16 at 09:00 Dextrose/Sodium Chloride (Iv D5% - 1/2 NS) 1,000 ml @ 50 mls/hr Q20H IV Last administered on 10/17/16 00:16; Start 10/13/16 at 11:00 Ondansetron HCl (Zofran) 4 mg PRN Q6HRS PRN IV Nausea 1ST CHOICE; Start at 12:30; Stop 10/14/16 at 11:07; Status DC Fentanyl Citrate (Fentanyl 2ml Vial) 25 mcg PRN Q5MIN PRN IV MILD PAIN; Start 10/13/16 at 12:30; Stop 10/14/16 at 11:04; Status DC Fentanyl Citrate (Fentanyl 2ml Vial) 50 mcg PRN Q5MIN PRN IV MODERATE PAIN; Start 10/13/16 at 12:30; Stop 10/14/16 at 11:04; Status DC Morphine Sulfate 1 mg 1 mg PRN Q10MIN PRN IV SEVERE PAIN; Start 10/13/16 at 12: 30; Stop 10/14/16 at 11:00; Status DC Lactated Ringer's (Iv Lactated Ringers) 1,000 ml @ 0 mls/hr Q0M IV ; Start 10/13 at 12:17; Stop 10/14/16 at 00:16; Status DC Lidocaine HCl 2 ml 1X PRN PRN ID IV START; Start 10/13/16 at 12:30; Stop at 16:03; Status DC Hydromorphone HCl (Dilaudid) 0.5 mg PRN Q10MIN PRN IV SEV PAIN,Second choice; Start 10/13/16 at 12:30; Stop 10/14/16 at 11:04; Status DC Prochlorperazine Edisylate (Compazine) 5 mg PACU PRN PRN IV NAUSEA; Start at 12:30; Stop 10/14/16 at 11:00; Status DC Fentanyl Citrate (Fentanyl 2ml Vial) 50 mcg PRN Q5MIN PRN IV Acute Pain Last administered on 10/14/16 10:04; Start 10/13/16 at 13:00; Stop 10/14/16 at 11:04 ; Status DC Morphine Sulfate 4 mg PRN Q10MIN PRN IV Moderate Pain; Start 10/13/16 at 13:00; Stop 10/14/16 at 11:00; Status DC Hydromorphone HCl (Dilaudid) 0.4 mg PRN Q10MIN PRN IV Moderate to severe pain; Start 10/13/16 at 13:00; Stop 10/14/16 at 11:04; Status DC Meperidine HCl (Demerol) 12.5 mg PRN Q5MIN PRN IV SHIVERING; Start 10/13/16 at 13:00; Stop 10/14/16 at 11:00; Status DC Prochlorperazine Edisylate (Compazine) 5 mg PRN Q6HRS PRN IV Nausea/Vomiting, 1st Choice; Start 10/13/16 at 13:00; Stop 10/14/16 at 11:00; Status DC Diphenhydramine HCl (Benadryl) 12.5 mg PRN Q2HR PRN IV ITCHING; Start 10/13/16 at 13:00; Stop 10/14/16 at 11:00; Status DC Midazolam HCl (Versed) 2 mg PRN 1X PRN IV PRIOR TO PROCEDURE; Start 10/13/16 at 13:00; Stop 10/14/16 at 11:07; Status DC Midazolam HCl (Versed) 1 mg PRN 1X PRN IV PRIOR TO PROCEDURE; Start 10/13/16 at 13:00; Stop 10/14/16 at 11:07; Status DC Fentanyl Citrate (Fentanyl 2ml Vial) 25 mcg PRN Q5MIN PRN IV X 2 DOSES FOR PAIN ; Start 10/13/16 at 13:00; Stop 10/14/16 at 11:04; Status DC Fentanyl Citrate 50 mcg 50 mcg PRN Q5MIN PRN IV X 2 DOSES FOR PAIN; Start at 13:00; Stop 10/14/16 at 11:04; Status DC Lactated Ringer's (Iv Lactated Ringers) 1,000 ml @ 125 mls/hr Q8H IV Last administered on 10/13/16t 13:30; Start 10/13/16 at 12:48; Stop 10/14/16 at 00:47; Status DC Lidocaine HCl 2 ml 1X PRN PRN ID IV START; Start 10/13/16 at 13:00; Stop at 16:03; Status DC Fentanyl Citrate (Fentanyl 2ml Vial) 25 mcg PRN Q2HR PRN IV PAIN MOD TO SEV; Start 10/13/16 at 20:30; Stop 10/14/16 at 14:15; Status DC Fentanyl Citrate (Fentanyl 2ml Vial) 50 mcg PRN Q2HR PRN IV PAIN MOD TO SEV Last administered on 10/14/16 12:02; Start 10/13/16 at 20:30; Stop 10/14/16 at 14:15; Status DC Enoxaparin Sodium (Lovenox 40mg Syringe) 40 mg Q24H SQ Last administered on 09:06; Start 10/14/16 at 09:00 Fentanyl Citrate 100 mcg 100 mcg STK-MED ONCE .ROUTE ; Start 10/13/16 at 13:27; Stop 10/14/16 at 07:31; Status DC Propofol (Diprivan) 20 ml @ As Directed STK-MED ONCE IV ; Start 10/13/16 at 13:27 ; Stop 10/14/16 at 07:31; Status DC Rocuronium [place] (Zemuron) 50 mg STK-MED ONCE .ROUTE ; Start 10/13/16 at 13:27 ; Stop 10/14/16 at 07:31; Status DC Lidocaine HCl 100 mg STK-MED ONCE .ROUTE ; Start 10/13/16 at 13:27; Stop at 07:31; Status DC Fentanyl Citrate (Fentanyl 2ml Vial) 100 mcg STK-MED ONCE .ROUTE ; Start at 13:27; Stop 10/14/16 at 07:31; Status DC Ephedrine Sulfate (Akovaz) 50 mg STK-MED ONCE .ROUTE ; Start 10/13/16 at 14:00; Stop 10/14/16 at 07:31; Status DC Phenylephrine HCl 1 mg STK-MED ONCE IV ; Start 10/13/16 at 14:25; Stop 10/14/16 at 07:31; Status DC Desflurane (Suprane) 60 ml STK-MED ONCE IH ; Start 10/13/16 at 14:25; Stop at 07:31; Status DC Dexamethasone Sodium Phosphate (Decadron) 20 mg STK-MED ONCE .ROUTE ; Start 10/13 at 14:25; Stop 10/14/16 at 07:31; Status DC Ondansetron HCl (Zofran) 4 mg STK-MED ONCE .ROUTE ; Start 10/13/16 at 14:25; Stop 10/14/16 at 07:31; Status DC Famotidine (Pepcid) 20 mg STK-MED ONCE .ROUTE ; Start 10/13/16 at 14:25; Stop 07/21 at 07:31; Status DC Rocuronium [place] (Zemuron) 50 mg STK-MED ONCE .ROUTE ; Start 10/13/16 at 16:19 ; Stop 10/14/16 at 07:31; Status DC Fentanyl Citrate (Fentanyl 2ml Vial) 100 mcg STK-MED ONCE .ROUTE ; Start at 16:21; Stop 10/14/16 at 07:31; Status DC Desflurane (Suprane) 90 ml STK-MED ONCE IH ; Start 10/13/16 at 16:53; Stop at 07:31; Status DC Glycopyrrolate (Robinul) 1 mg STK-MED ONCE .ROUTE ; Start 10/13/16 at 17:00; Stop 10/14/16 at 07:31; Status DC Neostigmine Methylsulfate 5 mg STK-MED ONCE .ROUTE ; Start 10/13/16 at 17:00; Stop 10/14/16 at 07:31; Status DC Phenylephrine HCl 1 mg STK-MED ONCE IV ; Start 10/13/16 at 18:14; Stop 10/14/16 at 07:31; Status DC Fentanyl Citrate (Fentanyl 2ml Vial) 100 mcg STK-MED ONCE .ROUTE ; Start at 18:20; Stop 10/14/16 at 07:31; Status DC Fentanyl Citrate 100 mcg 100 mcg STK-MED ONCE .ROUTE ; Start 10/13/16 at 19:17; Stop 10/14/16 at 07:31; Status DC Levetiracetam 500 mg/Sodium Chloride 105 ml @ 400 mls/hr Q12HR IV Last administered on 10/16/16t 21:32; Start 10/14/16 at 09:00 Amino Acids/ Glycerin/ Electrolytes (Procalamine) 1,000 ml @ 80 mls/hr [id number] IV Last administered on 10/16/16 09:16; Start 10/14/16 at 11:15; Stop at 21:59; Status DC Morphine Sulfate 2 mg PRN Q4HRS PRN IV MODERATE PAIN Last administered on 22:32; Start 10/14/16 at 14:15 Morphine Sulfate 4 mg PRN Q4HRS PRN IV SEVERE PAIN Last administered on 05:17; Start 10/14/16 at 14:30 Info 1 each 1 each PRN DAILY PRN MC SEE COMMENTS Last administered on 16:09; Start 10/16/16 at 11:30 Sodium Chloride/ Potassium Chloride/ Potassium Phosphate/ Magnesium Sulfate/ Calcium Gluconate/ Multivitamins/ Minerals/Chromium/ Copper/Manganese/ Seleni/Zn /Total Parenteral Nutrition/Amino Acids/Dextrose/ Fat Emulsion Intravenous ( Sodium Chloride/ Potassium Phospha... 1,512 ml @ 63 mls/hr TPN CONT IV ; Start 10/16/16 at 22:00; Stop 10/17/16 at 21:59 Lidocaine/Sodium Bicarbonate 20 ml 20 ml STK-MED ONCE IJ ; Start 10/17/16 at 08: 20; Stop 10/17/16 at 08:21; Status DC Heparin Sodium/ Sodium Chloride 500 ml @ As Directed STK-MED ONCE .ROUTE ; Start 10/17/16 at 08:20; Stop 10/17/16 at 08:21; Status DC Lidocaine/Sodium Bicarbonate (Buffered Lidocaine 1%) 3 ml 1X ONCE IJ Last administered on 10/17/16 08:30; Start 10/17/16 at 08:30; Stop 10/17/16 at 08:31 ; Status DC Heparin Sodium/ Sodium Chloride 60 unit 1X ONCE IV Last administered on 08:30; Start 10/17/16 at 08:30; Stop 10/17/16 at 08:31; Status DC Iohexol (Omnipaque 300 Mg/ml) 50 ml STK-MED ONCE .ROUTE ; Start 10/17/16 at 09: 02; Stop 10/17/16 at 09:03; Status DC Iohexol (Omnipaque 300 Mg/ml) 43 ml 1X ONCE IART Last administered on t 08:45; Start 10/17/16 at 09:30; Stop 10/17/16 at 09:33; Status DC Info (Do NOT chart on this entry -- for MONITORING) 1 each PRN DAILY PRN MC SEE COMMENTS; Start 10/17/16 at 09:45; Stop 10/19/16 at 09:44 Active Scripts Active Hydrocodone-Apap 5-325 (Hydrocodone Bit/Acetaminophen) 1 Each Tablet 1 Tab PO PRN Q6HRS PRN Metoprolol Succinate ( Xl ) (Metoprolol Succinate) 25 Mg Tab.er.24h 25 Mg PO DAILY Reported Flomax (Tamsulosin Hcl) 0.4 Mg Cap.er.24h 1 Cap PO QHS Tramadol Hcl 100 Mg Tab.er.24h 100 Mg PO QID Levetiracetam 250 Mg Tablet 250 Mg PO BID Dulcolax (Bisacodyl) 10 Mg Supp.rect 10 Mg RC PRN DAILY PRN Maalox Advanced Suspension (Mag Hydrox/Al Hydrox/Simeth) 770 Ml Oral.susp 30 Ml PO Q2HR PRN Milk Of Magnesia (Magnesium Hydroxide) 400 Mg/5 Ml Oral.susp 30 Ml PO DAILY PRN Robitussin Cough-Chest Dm Liq (Guaifenesin/Dextromethorphan) 118 Ml Liquid 10 Ml PO Q4HRS PRN Trazodone Hcl 50 Mg Tablet 1 Tab PO QHS Tylenol (Acetaminophen) 325 Mg Tablet 650 Mg PO Q6HRS PRN Pramipexole Dihydrochloride (Pramipexole Di-Hcl) 0.5 Mg Tablet 0.5 Mg PO TID Simvastatin 20 Mg Tablet 1 Tab PO QHS Levothyroxine Sodium 100 Mcg Tablet 1 Tab PO DAILY Gabapentin 800 Mg Tablet 800 Mg PO QID Sinemet 25-100 Mg Tablet (Carbidopa/Levodopa) 1 Each Tablet 2 Tab PO TID Aspirin 81 Mg Tab.chew 1 Tab PO DAILY Vitals/I & O Vital Sign - Last 24 Hours 10/16/16 10/16/16 10/16/16 10/16/16 11:00 13:36 15:00 19:20 Temp 97.4 97.9 97.9 97.4 97.9 97.9 Pulse 94 67 108 Resp 20 20 20 22 B/P 139/61 170/87 187/86 Pulse Ox 94 97 98 O2 Delivery Nasal Cannula Nasal Cannula Nasal Cannula Nasal Cannula O2 Flow Rate 3.0 2.0 3.0 2.0 10/16/16 10/16/16 10/16/16 10/16/16 19:42 20:00 23:01 23:48 Temp 98.8 98.8 Pulse 111 Resp 22 B/P 156/72 Pulse Ox 97 97 98 O2 Delivery Nasal Cannula Nasal Cannula Nasal Cannula Nasal Cannula O2 Flow Rate 2.5 2.5 2.5 2.0 10/17/16 10/17/16 10/17/16 10/17/16 01:45 03:00 05:17 07:00 Temp 98.7 98.7 Pulse 108 110 Resp 20 16 B/P 134/74 165/75 Pulse Ox 98 98 98 95 O2 Delivery Nasal Cannula Nasal Cannula Nasal Cannula Nasal Cannula O2 Flow Rate 2.0 2.0 2.0 3.0 10/17/16 07:30 O2 Delivery Nasal Cannula O2 Flow Rate 3.0 Intake and Output 10/16/16 10/16/16 10/17/16 15:00 23:00 07:00 Intake Total 505 ml Output Total 1100 ml Balance -1100 ml 505 ml RICHARD [place] MD Oct 17, 2016 10:20
[2016-10-17] MEDS ORDERED: LABETALOL 20 MG/4 ML DISP.SYRIN. IVP PRN (10:30)
[2016-10-17] MEDS: PANTOPRAZOLE IV PUSH 40 MG VIAL. IVP SCH (10:31)
[2016-10-17] MEDS: ENOXAPARIN 40 MG/0.4 ML DISP.SYRIN. SQ SCH (10:32)
[2016-10-17] MEDS: LEVETIRACETAM 500 MG in IV NORMAL SALINE 100ML 100 ML IV SCH ×2 (10:32→21:08)
--- NOTE | 2016-10-17 10:49 | RAD ---
Abdomen radiograph History: NG tube placement. Comparison: 10/13/2016. Findings: AP view of the abdomen. Lower abdomen and pelvis has been excluded from examination. Esophagogastric tube is seen with tip projecting at the body of a gaseously distended stomach. Dilated gas-filled small bowel loops are seen. IVC filter is present. Spinal process fusion clip is seen involving the lower lumbar spine. Impression: Esophagogastric tube tip projects at the body of the stomach.
--- NOTE | 2016-10-17 10:49 | PDOC ---
PAZ MONTEJO [employer]PER[employer] 10/17/16 1049: SURGICAL PROGRESS NOTE Subjective nausea, small amount of emesis some distention no flatus Vital Signs Vital Signs Date Time Temp Pulse Resp B/P Pulse Ox O2 Delivery O2 Flow Rate FiO2 10/17/16 10:42 Nasal Cannula 2.0 10/17/16 07:00 110 16 165/75 95 10/17/16 03:00 98.7 98.7 I&O Intake and Output 10/17/16 07:00 Intake Total 505 ml Output Total 1100 ml Balance -595 ml Intake Oral 0 ml IV Total 505 ml Output Urine Total 1100 ml # Voids 4 General: Cooperative, No acute distress Abdomen: Soft, Other (moderate abdominal distention, nontender) Labs Laboratory Tests Test 10/16/16 07:35 10/17/16 08:20 White Blood Count 10.0x10^3/uL (4.0-11.0) 10.4x10^3/uL (4.0-11.0) Red Blood Count 2.56x10^6/uL (4.30-5.70) 2.57x10^6/uL (4.30-5.70) Hemoglobin 8.3g/dL (13.0-17.5) 8.3g/dL (13.0-17.5) Hematocrit 25.5% (39.0-53.0) 25.5% (39.0-53.0) Mean Corpuscular Volume 100fL (79-100) 99fL (79-100) Mean Corpuscular Hemoglobin 32pg (25-35) 32pg (25-35) Mean Corpuscular Hemoglobin Concent 33g/dL (31-37) 32g/dL (31-37) Red Cell Distribution Width 15.6% (11.5-14.5) 15.7% (11.5-14.5) Platelet Count 255x10^3/uL (140-400) 269x10^3/uL (140-400) Neutrophils (%) (Auto) 80% (31-73) 77% (31-73) Lymphocytes (%) (Auto) 12% (24-48) 12% (24-48) Monocytes (%) (Auto) 5% (0-9) 8% (0-9) Eosinophils (%) (Auto) 3% (0-3) 2% (0-3) Basophils (%) (Auto) 0% (0-3) 0% (0-3) Neutrophils # (Auto) 8.0x10^3uL (1.8-7.7) 8.0x10^3uL (1.8-7.7) Lymphocytes # (Auto) 1.2x10^3/uL (1.0-4.8) 1.3x10^3/uL (1.0-4.8) Monocytes # (Auto) 0.5x10^3/uL (0.0-1.1) 0.9x10^3/uL (0.0-1.1) Eosinophils # (Auto) 0.3x10^3/uL (0.0-0.7) 0.2x10^3/uL (0.0-0.7) Basophils # (Auto) 0.0x10^3/uL (0.0-0.2) 0.0x10^3/uL (0.0-0.2) Sodium Level 139mmol/L (136-145) 138mmol/L (136-145) Potassium Level 4.4mmol/L (3.5-5.1) 4.3mmol/L (3.5-5.1) Chloride Level 105mmol/L (98-107) 105mmol/L (98-107) Carbon Dioxide Level 28mmol/L (21-32) 27mmol/L (21-32) Anion Gap 6 (6-14) 6 (6-14) Blood Urea Nitrogen 28mg/dL (8-26) 26mg/dL (8-26) Creatinine 1.4mg/dL (0.7-1.3) 1.4mg/dL (0.7-1.3) Estimated GFR (Cockcroft-Gault) 48.2 48.2 Glucose Level 128mg/dL (70-99) 133mg/dL (70-99) Calcium Level 8.3mg/dL (8.5-10.1) 8.2mg/dL (8.5-10.1) Magnesium Level 2.3mg/dL (1.8-2.4) 2.2mg/dL (1.8-2.4) Phosphorus Level 2.8mg/dL (2.6-4.7) Triglycerides Level 122mg/dL (0-150) Laboratory Tests Test 10/17/16 08:20 White Blood Count 10.4x10^3/uL (4.0-11.0) Red Blood Count 2.57x10^6/uL (4.30-5.70) Hemoglobin 8.3g/dL (13.0-17.5) Hematocrit 25.5% (39.0-53.0) Mean Corpuscular Volume 99fL (79-100) Mean Corpuscular Hemoglobin 32pg (25-35) Mean Corpuscular Hemoglobin Concent 32g/dL (31-37) Red Cell Distribution Width 15.7% (11.5-14.5) Platelet Count 269x10^3/uL (140-400) Neutrophils (%) (Auto) 77% (31-73) Lymphocytes (%) (Auto) 12% (24-48) Monocytes (%) (Auto) 8% (0-9) Eosinophils (%) (Auto) 2% (0-3) Basophils (%) (Auto) 0% (0-3) Neutrophils # (Auto) 8.0x10^3uL (1.8-7.7) Lymphocytes # (Auto) 1.3x10^3/uL (1.0-4.8) Monocytes # (Auto) 0.9x10^3/uL (0.0-1.1) Eosinophils # (Auto) 0.2x10^3/uL (0.0-0.7) Basophils # (Auto) 0.0x10^3/uL (0.0-0.2) Sodium Level 138mmol/L (136-145) Potassium Level 4.3mmol/L (3.5-5.1) Chloride Level 105mmol/L (98-107) Carbon Dioxide Level 27mmol/L (21-32) Anion Gap 6 (6-14) Blood Urea Nitrogen 26mg/dL (8-26) Creatinine 1.4mg/dL (0.7-1.3) Estimated GFR (Cockcroft-Gault) 48.2 Glucose Level 133mg/dL (70-99) Calcium Level 8.2mg/dL (8.5-10.1) Phosphorus Level 2.8mg/dL (2.6-4.7) Magnesium Level 2.2mg/dL (1.8-2.4) Triglycerides Level 122mg/dL (0-150) Problem List Problems Medical Problems: (1) SBO (small bowel obstruction) Status: Acute Assessment/Plan s/p xlap distention, nausea, emesis--will place NG PICC/TPN Problems: KENDRICK CULVER MD 10/17/16 1446: SURGICAL PROGRESS NOTE Assessment/Plan Reviewed, agree with above; return of bowel function may be prolonged Problems: PAZ MONTEJO APRN Oct 17, 2016 10:49 KENDRICK CULVER MD Oct 17, 2016 14:46
--- NOTE | 2016-10-17 10:49 | PDOC ---
Subjective: Subjective: Per pt - abd pain, feet pain, back pain, vomiting. Objective: Objective: Per RN - to replace NG. Vital Signs: Vital Signs Date Time Temp Pulse Resp B/P Pulse Ox O2 Delivery O2 Flow Rate FiO2 10/17/16 10:42 Nasal Cannula 2.0 10/17/16 07:00 110 16 165/75 95 10/17/16 03:00 98.7 98.7 Labs: Laboratory Tests Test 10/17/16 08:20 White Blood Count 10.4x10^3/uL Red Blood Count 2.57x10^6/uL Hemoglobin 8.3g/dL Hematocrit 25.5% Mean Corpuscular Volume 99fL Mean Corpuscular Hemoglobin 32pg Mean Corpuscular Hemoglobin Concent 32g/dL Red Cell Distribution Width 15.7% Platelet Count 269x10^3/uL Neutrophils (%) (Auto) 77% Lymphocytes (%) (Auto) 12% Monocytes (%) (Auto) 8% Eosinophils (%) (Auto) 2% Basophils (%) (Auto) 0% Neutrophils # (Auto) 8.0x10^3uL Lymphocytes # (Auto) 1.3x10^3/uL Monocytes # (Auto) 0.9x10^3/uL Eosinophils # (Auto) 0.2x10^3/uL Basophils # (Auto) 0.0x10^3/uL Sodium Level 138mmol/L Potassium Level 4.3mmol/L Chloride Level 105mmol/L Carbon Dioxide Level 27mmol/L Anion Gap 6 Blood Urea Nitrogen 26mg/dL Creatinine 1.4mg/dL Estimated GFR (Cockcroft-Gault) 48.2 Glucose Level 133mg/dL Calcium Level 8.2mg/dL Phosphorus Level 2.8mg/dL Magnesium Level 2.2mg/dL Triglycerides Level 122mg/dL Imaging: [facility] 10/17/16 PENDING PE: GEN: NAD LUNGS: CTAB HEART: RRR ABD: tender NEURO/PSYCH: A & O 3 A/P: S/p exp lap 10/13/15 w/ CONG, h/o SBOs -NPO, had PICC placed for TPN, NG to be replaced -on IV PPI -- Will follow. GAYLA CLEMENTE Oct 17, 2016 10:49
[2016-10-17 11:00] VITALS: BP 141/76
--- NOTE | 2016-10-17 11:01 | PDOC ---
Renal-Progress Notes Subjective Notes Notes NOTHING NEW History of Present Illness Hx of present illness STABLE Vitals Vitals Vital Signs Date Time Temp Pulse Resp B/P Pulse Ox O2 Delivery O2 Flow Rate FiO2 10/17/16 10:42 Nasal Cannula 2.0 10/17/16 07:00 110 16 165/75 95 10/17/16 03:00 98.7 98.7 Weight Weight [ ] I.O. Intake and Output Intake and Output 10/17/16 07:00 Intake Total 505 ml Output Total 1100 ml Balance -595 ml Intake Oral 0 ml IV Total 505 ml Output Urine Total 1100 ml # Voids 4 Labs Labs Laboratory Tests Test 10/17/16 08:20 White Blood Count 10.4x10^3/uL (4.0-11.0) Red Blood Count 2.57x10^6/uL (4.30-5.70) Hemoglobin 8.3g/dL (13.0-17.5) Hematocrit 25.5% (39.0-53.0) Mean Corpuscular Volume 99fL (79-100) Mean Corpuscular Hemoglobin 32pg (25-35) Mean Corpuscular Hemoglobin Concent 32g/dL (31-37) Red Cell Distribution Width 15.7% (11.5-14.5) Platelet Count 269x10^3/uL (140-400) Neutrophils (%) (Auto) 77% (31-73) Lymphocytes (%) (Auto) 12% (24-48) Monocytes (%) (Auto) 8% (0-9) Eosinophils (%) (Auto) 2% (0-3) Basophils (%) (Auto) 0% (0-3) Neutrophils # (Auto) 8.0x10^3uL (1.8-7.7) Lymphocytes # (Auto) 1.3x10^3/uL (1.0-4.8) Monocytes # (Auto) 0.9x10^3/uL (0.0-1.1) Eosinophils # (Auto) 0.2x10^3/uL (0.0-0.7) Basophils # (Auto) 0.0x10^3/uL (0.0-0.2) Sodium Level 138mmol/L (136-145) Potassium Level 4.3mmol/L (3.5-5.1) Chloride Level 105mmol/L (98-107) Carbon Dioxide Level 27mmol/L (21-32) Anion Gap 6 (6-14) Blood Urea Nitrogen 26mg/dL (8-26) Creatinine 1.4mg/dL (0.7-1.3) Estimated GFR (Cockcroft-Gault) 48.2 Glucose Level 133mg/dL (70-99) Calcium Level 8.2mg/dL (8.5-10.1) Phosphorus Level 2.8mg/dL (2.6-4.7) Magnesium Level 2.2mg/dL (1.8-2.4) Triglycerides Level 122mg/dL (0-150) Micro Micro Microbiology 10/13/16 Blood Culture - Preliminary, Resulted NO GROWTH AFTER 4 DAYS 10/13/16 Urine Culture - Final, Complete 10/13/16 Urine Culture Result 1 (MANDEEP) - Final, Complete Review of Systems Constitutional: yes: no symptom reported Physical Exam General Appearance: no apparent distress Skin: warm Respiratory: bilateral CTA Heart: S1S2, RRR Abdomen: soft, bowel sounds present Extremities: pulses present Neurology: alert Assessment Assessment IMP TAYLOR-IMPROVED CR AT BASELINE OF 1.4 CKD STAGE 3 DEHYDRATION-BETTER HYPERKALEMIA - RESOLVED SBO PLAN CONT TPN WILL FOLLOW CONI GLYNN MD Oct 17, 2016 11:01
--- NOTE | 2016-10-17 11:05 | PDOC ---
Infectious Disease Note Subjective Subjective going backwards again, obstruction , vomiting and NG in place ROS ROS no pain, sob, diarrhea Vital Sign Vital Signs Vital Signs Date Time Temp Pulse Resp B/P Pulse Ox O2 Delivery O2 Flow Rate FiO2 10/17/16 10:42 Nasal Cannula 2.0 10/17/16 07:00 110 16 165/75 95 10/17/16 03:00 98.7 98.7 Physical Exam PHYSICAL EXAM GENERAL: NAD, Alert NG in place HEENT: PERRL, OC/OP NECK: Supple, no JVD, no LN LUNGS: Clear HEART: S1S2, no gallop, no murmur ABD: distended, no organomegaly, no rebound EXT: No edema, no cyanosis [employer]ER: Alert, 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, no focal neurologic deficit SKIN: No rash IV: ok Labs Lab Laboratory Tests Test 10/17/16 08:20 White Blood Count 10.4x10^3/uL (4.0-11.0) Red Blood Count 2.57x10^6/uL (4.30-5.70) Hemoglobin 8.3g/dL (13.0-17.5) Hematocrit 25.5% (39.0-53.0) Mean Corpuscular Volume 99fL (79-100) Mean Corpuscular Hemoglobin 32pg (25-35) Mean Corpuscular Hemoglobin Concent 32g/dL (31-37) Red Cell Distribution Width 15.7% (11.5-14.5) Platelet Count 269x10^3/uL (140-400) Neutrophils (%) (Auto) 77% (31-73) Lymphocytes (%) (Auto) 12% (24-48) Monocytes (%) (Auto) 8% (0-9) Eosinophils (%) (Auto) 2% (0-3) Basophils (%) (Auto) 0% (0-3) Neutrophils # (Auto) 8.0x10^3uL (1.8-7.7) Lymphocytes # (Auto) 1.3x10^3/uL (1.0-4.8) Monocytes # (Auto) 0.9x10^3/uL (0.0-1.1) Eosinophils # (Auto) 0.2x10^3/uL (0.0-0.7) Basophils # (Auto) 0.0x10^3/uL (0.0-0.2) Sodium Level 138mmol/L (136-145) Potassium Level 4.3mmol/L (3.5-5.1) Chloride Level 105mmol/L (98-107) Carbon Dioxide Level 27mmol/L (21-32) Anion Gap 6 (6-14) Blood Urea Nitrogen 26mg/dL (8-26) Creatinine 1.4mg/dL (0.7-1.3) Estimated GFR (Cockcroft-Gault) 48.2 Glucose Level 133mg/dL (70-99) Calcium Level 8.2mg/dL (8.5-10.1) Phosphorus Level 2.8mg/dL (2.6-4.7) Magnesium Level 2.2mg/dL (1.8-2.4) Triglycerides Level 122mg/dL (0-150) Objective Assessment Fever - better Small bowel obstruction Seizure disorder Parkinson's disease Abdominal pain, s/p Exp lap Plan Plan of Care supportive care OMI Meyer MD Oct 17, 2016 11:05
[2016-10-17] MEDS: CLONIDINE TTS-2 PATCH TD SCH (11:58)
[2016-10-17] MEDS: TPN PER PHARMACY MC PRN (12:49)
[2016-10-17] MEDS: IV 1/2 NORMAL SALINE 1,000 ML IV SCH (12:51)
--- NOTE | 2016-10-17 14:36 | RAD ---
Fluoroscopy guided PICC replacement through same venous access Right upper extremity venogram with right basilic vein TOWEL HEMMER Indication: 86-year-old male status post exploratory laparotomy. He is awaiting return of bowel function. Placement of a centrally positioned PICC has been requested for TPN. He has an indwelling right basilic vein "midline" PICC, which is and satisfactory for hypertonic solutions such as TPN. Fluoro time: 10.1 minutes Kerma-Area Product: 53 Gycm2 Anesthesia: Local only Contrast material: 17 cc Omnipaque 300 Sterility: All elements of maximal sterile barrier technique were utilized, including cap, mask, sterile gown, sterile gloves, large sterile sheet, appropriate hand hygiene, and 2% chlorhexidine for cutaneous antisepsis Procedure: Informed consent was obtained from the patient. He was placed supine on the angiography table. Right upper arm was prepped and draped in the usual sterile fashion, utilizing all elements of maximal sterile barrier technique, as described above. No moderate sedation was utilized. No prophylactic antibiotic was given. Preliminary fluoroscopic evaluation of right upper arm revealed the presence of a small caliber right basilic vein "midline" PICC, extending to the level of upper humerus. Since this PICC could not be advanced centrally, right upper extremity venography was considered indicated. Using aseptic technique, a small amount of Omnipaque 300 was injected through the indwelling "midline" PICC, and right upper extremity venogram DSA images were obtained from mid humerus through superior vena cava. Those images revealed patency of right upper extremity veins from upper basilic vein through superior vena cava, without definite, localized, obstructing stricture. Therefore, the indwelling 4 [place] single-lumen 18 cm long midline PICC was removed over 0.018 Terumo advantage microguidewire, which was advanced centrally to the level of upper right atrium under fluoroscopic guidance. A 5 [place] peel-away right basilic vein sheath was then advanced over the advantage guidewire. A 5 [place] dual-lumen power PICC was trimmed to 43 cm in length and was introduced through the peel-away sheath over the advantage wire. Unfortunately, this PICC could not be advanced centrally beyond upper right basilic vein level. Therefore, basilic vein TOWEL HEMMER was considered indicated. The power PICC and peel-away sheath were removed over the advantage microguidewire. A 4 mm x 100 mm Cordis savvy TOWEL HEMMER balloon was then advanced bareback over the microguidewire and was utilized to perform balloon dilatation of upper right basilic vein to a peak pressure of 10 rosetta. This resulted in successful dilatation of a focal, occult basilic vein stenosis not well seen on the previous venogram. The TOWEL HEMMER balloon was then deflated and was re-exchanged over the microguidewire for the 5 [place] peel-away sheath. The 5 [place] dual-lumen 43 cm long power PICC was then readvanced through the peel-away sheath over the advantage microguidewire and was easily directed centrally to the level of cavoatrial junction utilizing fluoroscopic guidance. Omnipaque 300 was injected through the PICC and central DSA images were obtained, confirming satisfactory PICC position. The power PICC was then documented to flush and aspirate normally and was secured at the skin exit site utilizing suture and sterile dressing. Patient tolerated the procedure well without apparent complication. Impression: Successful, uneventful fluoroscopy guided PICC replacement through same basilic vein access, requiring right upper extremity venogram followed by basilic vein TOWEL HEMMER, as described. The new 5 [place] dual-lumen 43 cm long power PICC extends to a level near cavoatrial junction. This centrally positioned power PICC is satisfactory for blood draws and infusions, including TPN.
[2016-10-17 15:00] VITALS: BP 152/64
[2016-10-17 19:15] VITALS: BP 101/62
[2016-10-17] MEDS ORDERED: TOTAL PARENTERAL NUTRITION 1,424.9987 ML, AMINO ACIDS 10 % 60 GM, DEXTROSE 70 % IN WATE... IV SCH ×10 (22:00)
[2016-10-17 23:15] VITALS: BP 129/56
[2016-10-18 03:16] VITALS: BP 142/53
[2016-10-18] MEDS: PIPERACILLIN/TAZOBACTAM 3.375 GM in IV NORMAL SALINE 50ML 50 ML IV SCH ×4 (05:30→23:53)
[2016-10-18 07:00] VITALS: BP 141/58
[2016-10-18] MEDS: IV 1/2 NORMAL SALINE 1,000 ML IV SCH (09:32)
[2016-10-18] MEDS: LEVETIRACETAM 500 MG in IV NORMAL SALINE 100ML 100 ML IV SCH ×2 (09:33→21:24)
[2016-10-18] MEDS: PANTOPRAZOLE IV PUSH 40 MG VIAL. IVP SCH (09:34)
[2016-10-18] MEDS: ENOXAPARIN 40 MG/0.4 ML DISP.SYRIN. SQ SCH (09:34)
[2016-10-18] MEDS: ONDANSETRON PF 4 MG/2 ML VIAL. IV PRN ×2 (09:45→20:22)
[2016-10-18] MEDS: MORPHINE SULFATE 4 MG/ML DISP.SYRIN. IV PRN ×3 (09:46→23:53)
[2016-10-18 11:00] VITALS: BP 170/84
--- NOTE | 2016-10-18 11:07 | PDOC ---
PROGRESS NOTES Subjective Subjective ng tube placed. note 700cc in drain. feels he same. says he had flatus but no BM. Objective Objective Vital Signs Date Time Temp Pulse Resp B/P Pulse Ox O2 Delivery O2 Flow Rate FiO2 10/18/16 09:46 18 Nasal Cannula 2.5 10/18/16 07:00 98.1 81 141/58 93 98.1 Intake and Output 10/18/16 07:00 Intake Total 145 ml Output Total 400 ml Balance -255 ml Intake Oral 0 ml IV Total 145 ml Drainage Total 400 ml # Voids 4 Physical Exam Abdomen: Soft, Other (few bowel sounds) Heart: Regular rate, Normal S1, Normal S2 Extremities: Other (edemal LUE and trace edema feet) General: Oriented X3 HEENT: Atraumatic Lungs: Clear to auscultation Neuro: Normal speech Psych/Mental Status: Mood NL Skin: No rashes Assessment Assessment Problems Medical Problems:Small-bowel obstruction resolved exploratory laparotomy 10/13/16. lysis of adhesions. bowel viable. post op ileus 2. Seizure disorder. 3. Parkinson's disease. 4. Hypothyroidism. 5. Peripheral neuropathy. 6. Hypertension. bp high 7. Chronic kidney disease stage III. klebsiella uti treated suspected gout synovitis resolved peripheral edema improved critical illness myopathy hematemesis resolved LUE edematous. venous doppler LUE negative (1) SBO (small bowel obstruction) Status: Acute Plan Plan of Care npo ng suctioin TPN and iv fluids analgesics prn iv keppra iv protonix iv zosyn continue lovenox PT and OT Comment Review of Relevant I have reviewed the following items [place] (where applicable) has been applied. Labs Laboratory Tests Test 10/17/16 08:20 White Blood Count 10.4x10^3/uL (4.0-11.0) Red Blood Count 2.57x10^6/uL (4.30-5.70) Hemoglobin 8.3g/dL (13.0-17.5) Hematocrit 25.5% (39.0-53.0) Mean Corpuscular Volume 99fL (79-100) Mean Corpuscular Hemoglobin 32pg (25-35) Mean Corpuscular Hemoglobin Concent 32g/dL (31-37) Red Cell Distribution Width 15.7% (11.5-14.5) Platelet Count 269x10^3/uL (140-400) Neutrophils (%) (Auto) 77% (31-73) Lymphocytes (%) (Auto) 12% (24-48) Monocytes (%) (Auto) 8% (0-9) Eosinophils (%) (Auto) 2% (0-3) Basophils (%) (Auto) 0% (0-3) Neutrophils # (Auto) 8.0x10^3uL (1.8-7.7) Lymphocytes # (Auto) 1.3x10^3/uL (1.0-4.8) Monocytes # (Auto) 0.9x10^3/uL (0.0-1.1) Eosinophils # (Auto) 0.2x10^3/uL (0.0-0.7) Basophils # (Auto) 0.0x10^3/uL (0.0-0.2) Sodium Level 138mmol/L (136-145) Potassium Level 4.3mmol/L (3.5-5.1) Chloride Level 105mmol/L (98-107) Carbon Dioxide Level 27mmol/L (21-32) Anion Gap 6 (6-14) Blood Urea Nitrogen 26mg/dL (8-26) Creatinine 1.4mg/dL (0.7-1.3) Estimated GFR (Cockcroft-Gault) 48.2 Glucose Level 133mg/dL (70-99) Calcium Level 8.2mg/dL (8.5-10.1) Phosphorus Level 2.8mg/dL (2.6-4.7) Magnesium Level 2.2mg/dL (1.8-2.4) Triglycerides Level 122mg/dL (0-150) Microbiology 10/13/16 Blood Culture - Final, Complete NO GROWTH AFTER 5 DAYS 10/13/16 Urine Culture - Final, Complete 10/13/16 Urine Culture Result 1 (MANDEEP) - Final, Complete Medications Current Medications Fentanyl Citrate 50 mcg 50 mcg PRN Q15MIN PRN IV PAIN GREATER THAN 3/10 Last administered on 09/30/16at 19:35; Start 09/30/16 at 17:30; Stop 10/01/16 at 04 :24; Status DC Lactated Ringer's (Iv Lactated Ringers) 1,000 ml @ 100 mls/hr Q10H IV Last administered on 09/30/16at 19:35; Start 09/30/16 at 17:28; Stop 10/01/16 at 03 :27; Status DC Ondansetron HCl (Zofran) 4 mg 1X ONCE IV Last administered on 09/30/16at 17:44 ; Start 09/30/16 at 17:30; Stop 09/30/16 at 17:32; Status DC Fentanyl Citrate (Fentanyl 2ml Vial) 50 mcg 1X ONCE IV ; Start 09/30/16 at 19: 15; Stop 10/01/16 at 04:24; Status DC Ondansetron HCl (Zofran) 4 mg PRN Q8HRS PRN IV NAUSEA/VOMITING Last administered on 09/30/16at 22:07; Start 09/30/16 at 19:15; Stop 10/01/16 at 19 :14; Status DC Fentanyl Citrate 50 mcg 50 mcg PRN Q2HR PRN IV PAIN Last administered on at 16:54; Start 09/30/16 at 19:15; Stop 10/01/16 at 19:14; Status DC Sodium Chloride 1,000 ml @ 100 mls/hr Q10H IV ; Start 09/30/16 at 19:30; Stop 10/01/16 at 04:24; Status DC Potassium Chloride/Dextrose/ Sod Cl (KCl 20 Meq In D5W-1/2 NS) 1,000 ml @ 125 mls/hr Q8H IV Last administered on 10/04/16at 06:02; Start 09/30/16 at 20:00; Stop 10/04/16 at 10:21; Status DC Enoxaparin Sodium 40 mg 40 mg Q24H SQ Last administered on 10/13/16 08:14; Start 10/01/16 at 09:00; Stop 10/13/16 at 08:36; Status DC Levetiracetam/ Sodium Chloride (Keppra/Iv Sodium Chloride 0.9% 100ml) 105 ml @ 400 mls/hr Q12HR IV Last administered on 10/05/16 09:30; Start 09/30/16 at 21: 00; Stop 10/05/16 at 10:24; Status DC Morphine Sulfate 2 mg PRN Q4HRS PRN IV SEVERE PAIN Last administered on 10:13; Start 09/30/16 at 19:30; Stop 10/05/16 at 10:24; Status DC Acetaminophen (Tylenol) 650 mg PRN Q6HRS PRN CO MILD PAIN / TEMP; Start at 19:30; Stop 10/05/16 at 10:24; Status DC Ondansetron HCl (Zofran) 4 mg PRN Q6HRS PRN IV NAUSEA/VOMITING Last administered on 10/07/16 08:28; Start 09/30/16 at 19:30; Stop 10/09/16 at 12:08 ; Status DC Benzocaine (Hurricaine One) 1 spray STK-MED ONCE .ROUTE ; Start 09/30/16 at 19: 51; Stop 09/30/16 at 19:52; Status DC Morphine Sulfate 4 mg PRN Q4HRS PRN IV PAIN Last administered on 10/05/16 08:08 ; Start 10/01/16 at 20:00; Stop 10/05/16 at 10:24; Status DC Clonidine HCl 1 patch 1 patch WEEKLY TD Last administered on 10/03/16at 12:30; Start 10/03/16 at 10:00; Stop 10/05/16 at 10:24; Status DC Piperacillin Sod/ Tazobactam Sod/ Sodium Chloride (Zosyn/Iv Sodium Chloride 0.9 % 50ml) 50 ml @ 100 mls/hr Q6HRS IV Last administered on 10/09/16 06:26; Start 10/04/16 at 11:00; Stop 10/09/16 at 10:55; Status DC Vancomycin HCl 1 each 1 each PRN DAILY PRN MC SEE COMMENTS Last administered on 10/07/16 11:11; Start 10/04/16 at 10:15; Stop 10/07/16 at 11:28; Status DC Vancomycin HCl/ Sodium Chloride (Iv Sodium Chloride 0.9% 250ml) 250 ml @ 250 mls/hr Q24H IV ; Start 10/04/16 at 10:15; Status UNV Labetalol HCl (Normodyne) 20 mg PRN Q6HRS PRN IVP HYPERTENSION, SEE COMMENTS; Start 10/04/16 at 10:15; Stop 10/05/16 at 10:24; Status DC Hydralazine HCl 10 mg 10 mg PRN Q6HRS PRN IVP ELEVATED BP, SEE COMMENTS Last administered on 10/06/16 19:17; Start 10/04/16 at 10:15; Stop 10/12/16 at 10:40 ; Status DC Amino Acids/ Glycerin/ Electrolytes 1,000 ml @ 40 mls/hr Q24H IV Last administered on 10/06/16 09:59; Start 10/04/16 at 10:15; Stop 10/07/16 at 09:06 ; Status DC Vancomycin HCl 2 gm/Sodium Chloride 500 ml @ 250 mls/hr 1X ONCE IV Last administered on 10/04/16at 11:26; Start 10/04/16 at 10:45; Stop 10/04/16 at 12 :44; Status DC Vancomycin HCl/ Sodium Chloride (Iv Sodium Chloride 0.9% 500ml Bag) 500 ml @ 250 mls/hr Q24H IV Last administered on 10/06/16 11:47; Start 10/05/16 at 12:00 ; Stop 10/07/16 at 11:28; Status DC Vancomycin HCl 1 each 1X ONCE MC Last administered on 10/06/16 11:30; Start at 11:30; Stop 10/06/16 at 11:31; Status DC Aspirin (Children'S Aspirin) 81 mg [id number] PO Last administered on 10/13/16 08:15; Start 10/05/16 at 11:00; Stop 10/13/16 at 08:29; Status DC Gabapentin (Neurontin) 600 mg QID PO Last administered on 10/13/16 08:14; Start 10/05/16 at 13:00; Stop 10/14/16 at 08:47; Status DC Levetiracetam (Keppra) 250 mg BID PO Last administered on 10/13/16 08:17; Start 10/05/16 at 11:00; Stop 10/14/16 at 08:47; Status DC Levothyroxine Sodium (Synthroid) 100 mcg DAILY07 PO Last administered on 05:08; Start 10/05/16 at 10:30; Stop 10/14/16 at 08:48; Status DC Metoprolol Succinate (Toprol Xl) 25 mg DAILY PO Last administered on 10/13/16 08:16; Start 10/05/16 at 11:00; Stop 10/14/16 at 08:47; Status DC Pramipexole Dihydrochloride (miraPEX) 0.5 mg [id number] PO Last administered on 10/13 08:15; Start 10/05/16 at 11:00; Stop 10/14/16 at 08:48; Status DC Simvastatin (Zocor) 20 mg HS PO Last administered on 10/12/16 21:07; Start 10/05 at 21:00; Stop 10/14/16 at 08:48; Status DC Carbidopa/Levodopa (Sinemet Cr) 1 tab.sa TID PO Last administered on 10/13/16 08:16; Start 10/05/16 at 11:00; Stop 10/14/16 at 08:48; Status DC Tamsulosin HCl (Flomax) 0.4 mg QHS PO Last administered on 10/12/16 21:07; Start 10/05/16 at 21:00; Stop 10/14/16 at 08:48; Status DC Tramadol HCl (Ultram) 50 mg QID PO Last administered on 10/13/16 08:17; Start 10/05/16 at 13:00; Stop 10/14/16 at 08:48; Status DC Acetaminophen (Tylenol) 650 mg PRN Q4HRS PRN PO MILD PAIN / TEMP Last administered on 10/13/16 00:17; Start 10/05/16 at 10:15; Stop 10/14/16 at 08:48; Status DC Prednisone (Prednisone) 20 mg 1X ONCE PO Last administered on 10/06/16 11:01; Start 10/06/16 at 10:30; Stop 10/06/16 at 10:31; Status DC Prednisone (Prednisone) 10 mg DAILY08 PO Last administered on 10/13/16 08:15; Start 10/07/16 at 08:00; Stop 10/13/16 at 08:29; Status DC Al Hydroxide/Mg Hydroxide (Mylanta Plus Xs) 30 ml PRN Q4HRS PRN PO HEARTBURN / GAS Last administered on 10/12/16 21:07; Start 10/07/16 at 08:45; Stop 10/14/16 at 08:48; Status DC Pantoprazole Sodium (Protonix) 40 mg DAILYAC PO Last administered on 10/13/16 05:08; Start 10/07/16 at 10:00; Stop 10/13/16 at 06:45; Status DC Furosemide 40 mg 40 mg DAILY PO Last administered on 10/08/16 08:42; Start 10/07 at 10:00; Stop 10/08/16 at 08:56; Status DC Sodium Chloride (Iv Sodium Chloride 0.45%) 1,000 ml @ 60 mls/hr CONT PRN IV . ; Start 10/08/16 at 09:00; Stop 10/08/16 at 16:06; Status DC Bisacodyl 10 mg 10 mg 1X ONCE CO Last administered on 10/08/16 10:11; Start at 09:30; Stop 10/08/16 at 09:31; Status DC Sodium Chloride (Iv Sodium Chloride 0.45%) 1,000 ml @ 60 mls/hr [id number] IV Last administered on 10/09/16 02:52; Start 10/08/16 at 10:15; Stop 10/09/16 at 12: 00; Status DC Cefpodoxime Proxetil (Vantin) 200 mg BID PO ; Start 10/09/16 at 11:00; Stop at 12:08; Status DC Cefpodoxime Proxetil (Vantin) 100 mg BID PO Last administered on 10/13/16 08:16 ; Start 10/09/16 at 21:00; Stop 10/13/16 at 08:29; Status DC Ondansetron HCl (Zofran) 4 mg STK-MED ONCE .ROUTE Last administered on 01:24; Start 10/13/16 at 01:19; Stop 10/13/16 at 01:20; Status DC Ondansetron HCl (Zofran) 4 mg PRN Q6HRS PRN IV NAUSEA/VOMITING Last administered on 10/18/16 09:45; Start 10/13/16 at 02:00 Pantoprazole Sodium 40 mg 40 mg DAILYAC IVP Last administered on 10/18/16 09: 34; Start 10/13/16 at 07:30 Dextrose/Sodium Chloride (Iv D5% - NS) 1,000 ml @ 60 mls/hr [id number] IV Last administered on 10/13/16 09:25; Start 10/13/16 at 08:30; Stop 10/13/16 at 11:01; Status DC Sodium Polystyrene Sulfonate 15 gm 15 gm 1X ONCE PO Last administered on 09:26; Start 10/13/16 at 08:30; Stop 10/13/16 at 08:31; Status DC Piperacillin Sod/ Tazobactam Sod 3.375 gm/Sodium Chloride 50 ml @ 100 mls/hr Q6HRS IV Last administered on 10/18/16 05:30; Start 10/13/16 at 09:00 Dextrose/Sodium Chloride (Iv D5% - 1/2 NS) 1,000 ml @ 50 mls/hr Q20H IV Last administered on 10/17/16 00:16; Start 10/13/16 at 11:00; Stop 10/17/16 at 12:23 ; Status DC Ondansetron HCl (Zofran) 4 mg PRN Q6HRS PRN IV Nausea 1ST CHOICE; Start at 12:30; Stop 10/14/16 at 11:07; Status DC Fentanyl Citrate (Fentanyl 2ml Vial) 25 mcg PRN Q5MIN PRN IV MILD PAIN; Start 10/13/16 at 12:30; Stop 10/14/16 at 11:04; Status DC Fentanyl Citrate (Fentanyl 2ml Vial) 50 mcg PRN Q5MIN PRN IV MODERATE PAIN; Start 10/13/16 at 12:30; Stop 10/14/16 at 11:04; Status DC Morphine Sulfate 1 mg 1 mg PRN Q10MIN PRN IV SEVERE PAIN; Start 10/13/16 at 12: 30; Stop 10/14/16 at 11:00; Status DC Lactated Ringer's (Iv Lactated Ringers) 1,000 ml @ 0 mls/hr Q0M IV ; Start 10/13 at 12:17; Stop 10/14/16 at 00:16; Status DC Lidocaine HCl 2 ml 1X PRN PRN ID IV START; Start 10/13/16 at 12:30; Stop at 16:03; Status DC Hydromorphone HCl (Dilaudid) 0.5 mg PRN Q10MIN PRN IV SEV PAIN,Second choice; Start 10/13/16 at 12:30; Stop 10/14/16 at 11:04; Status DC Prochlorperazine Edisylate (Compazine) 5 mg PACU PRN PRN IV NAUSEA; Start at 12:30; Stop 10/14/16 at 11:00; Status DC Fentanyl Citrate (Fentanyl 2ml Vial) 50 mcg PRN Q5MIN PRN IV Acute Pain Last administered on 10/14/16t 10:04; Start 10/13/16 at 13:00; Stop 10/14/16 at 11:04 ; Status DC Morphine Sulfate 4 mg PRN Q10MIN PRN IV Moderate Pain; Start 10/13/16 at 13:00; Stop 10/14/16 at 11:00; Status DC Hydromorphone HCl (Dilaudid) 0.4 mg PRN Q10MIN PRN IV Moderate to severe pain; Start 10/13/16 at 13:00; Stop 10/14/16 at 11:04; Status DC Meperidine HCl (Demerol) 12.5 mg PRN Q5MIN PRN IV SHIVERING; Start 10/13/16 at 13:00; Stop 10/14/16 at 11:00; Status DC Prochlorperazine Edisylate (Compazine) 5 mg PRN Q6HRS PRN IV Nausea/Vomiting, 1st Choice; Start 10/13/16 at 13:00; Stop 10/14/16 at 11:00; Status DC Diphenhydramine HCl (Benadryl) 12.5 mg PRN Q2HR PRN IV ITCHING; Start 10/13/16 at 13:00; Stop 10/14/16 at 11:00; Status DC Midazolam HCl (Versed) 2 mg PRN 1X PRN IV PRIOR TO PROCEDURE; Start 10/13/16 at 13:00; Stop 10/14/16 at 11:07; Status DC Midazolam HCl (Versed) 1 mg PRN 1X PRN IV PRIOR TO PROCEDURE; Start 10/13/16 at 13:00; Stop 10/14/16 at 11:07; Status DC Fentanyl Citrate (Fentanyl 2ml Vial) 25 mcg PRN Q5MIN PRN IV X 2 DOSES FOR PAIN ; Start 10/13/16 at 13:00; Stop 10/14/16 at 11:04; Status DC Fentanyl Citrate 50 mcg 50 mcg PRN Q5MIN PRN IV X 2 DOSES FOR PAIN; Start at 13:00; Stop 10/14/16 at 11:04; Status DC Lactated Ringer's (Iv Lactated Ringers) 1,000 ml @ 125 mls/hr Q8H IV Last administered on 10/13/16 13:30; Start 10/13/16 at 12:48; Stop 10/14/16 at 00:47; Status DC Lidocaine HCl 2 ml 1X PRN PRN ID IV START; Start 10/13/16 at 13:00; Stop at 16:03; Status DC Fentanyl Citrate (Fentanyl 2ml Vial) 25 mcg PRN Q2HR PRN IV PAIN MOD TO SEV; Start 10/13/16 at 20:30; Stop 10/14/16 at 14:15; Status DC Fentanyl Citrate (Fentanyl 2ml Vial) 50 mcg PRN Q2HR PRN IV PAIN MOD TO SEV Last administered on 10/14/16 12:02; Start 10/13/16 at 20:30; Stop 10/14/16 at 14:15; Status DC Enoxaparin Sodium (Lovenox 40mg Syringe) 40 mg Q24H SQ Last administered on 09:34; Start 10/14/16 at 09:00 Fentanyl Citrate 100 mcg 100 mcg STK-MED ONCE .ROUTE ; Start 10/13/16 at 13:27; Stop 10/14/16 at 07:31; Status DC Propofol (Diprivan) 20 ml @ As Directed STK-MED ONCE IV ; Start 10/13/16 at 13:27 ; Stop 10/14/16 at 07:31; Status DC Rocuronium [place] (Zemuron) 50 mg STK-MED ONCE .ROUTE ; Start 10/13/16 at 13:27 ; Stop 10/14/16 at 07:31; Status DC Lidocaine HCl 100 mg STK-MED ONCE .ROUTE ; Start 10/13/16 at 13:27; Stop at 07:31; Status DC Fentanyl Citrate (Fentanyl 2ml Vial) 100 mcg STK-MED ONCE .ROUTE ; Start at 13:27; Stop 10/14/16 at 07:31; Status DC Ephedrine Sulfate (Akovaz) 50 mg STK-MED ONCE .ROUTE ; Start 10/13/16 at 14:00; Stop 10/14/16 at 07:31; Status DC Phenylephrine HCl 1 mg STK-MED ONCE IV ; Start 10/13/16 at 14:25; Stop 10/14/16 at 07:31; Status DC Desflurane (Suprane) 60 ml STK-MED ONCE IH ; Start 10/13/16 at 14:25; Stop at 07:31; Status DC Dexamethasone Sodium Phosphate (Decadron) 20 mg STK-MED ONCE .ROUTE ; Start 10/13 at 14:25; Stop 10/14/16 at 07:31; Status DC Ondansetron HCl (Zofran) 4 mg STK-MED ONCE .ROUTE ; Start 10/13/16 at 14:25; Stop 10/14/16 at 07:31; Status DC Famotidine (Pepcid) 20 mg STK-MED ONCE .ROUTE ; Start 10/13/16 at 14:25; Stop 07/21 at 07:31; Status DC Rocuronium [place] (Zemuron) 50 mg STK-MED ONCE .ROUTE ; Start 10/13/16 at 16:19 ; Stop 10/14/16 at 07:31; Status DC Fentanyl Citrate (Fentanyl 2ml Vial) 100 mcg STK-MED ONCE .ROUTE ; Start at 16:21; Stop 10/14/16 at 07:31; Status DC Desflurane (Suprane) 90 ml STK-MED ONCE IH ; Start 10/13/16 at 16:53; Stop at 07:31; Status DC Glycopyrrolate (Robinul) 1 mg STK-MED ONCE .ROUTE ; Start 10/13/16 at 17:00; Stop 10/14/16 at 07:31; Status DC Neostigmine Methylsulfate 5 mg STK-MED ONCE .ROUTE ; Start 10/13/16 at 17:00; Stop 10/14/16 at 07:31; Status DC Phenylephrine HCl 1 mg STK-MED ONCE IV ; Start 10/13/16 at 18:14; Stop 10/14/16 at 07:31; Status DC Fentanyl Citrate (Fentanyl 2ml Vial) 100 mcg STK-MED ONCE .ROUTE ; Start at 18:20; Stop 10/14/16 at 07:31; Status DC Fentanyl Citrate 100 mcg 100 mcg STK-MED ONCE .ROUTE ; Start 10/13/16 at 19:17; Stop 10/14/16 at 07:31; Status DC Levetiracetam 500 mg/Sodium Chloride 105 ml @ 400 mls/hr Q12HR IV Last administered on 10/18/16 09:33; Start 10/14/16 at 09:00 Amino Acids/ Glycerin/ Electrolytes (Procalamine) 1,000 ml @ 80 mls/hr [id number] IV Last administered on 10/16/16 09:16; Start 10/14/16 at 11:15; Stop at 21:59; Status DC Morphine Sulfate 2 mg PRN Q4HRS PRN IV MODERATE PAIN Last administered on 22:32; Start 10/14/16 at 14:15 Morphine Sulfate 4 mg PRN Q4HRS PRN IV SEVERE PAIN Last administered on 09:46; Start 10/14/16 at 14:30 Info 1 each 1 each PRN DAILY PRN MC SEE COMMENTS Last administered on 12:49; Start 10/16/16 at 11:30 Sodium Chloride/ Potassium Chloride/ Potassium Phosphate/ Magnesium Sulfate/ Calcium Gluconate/ Multivitamins/ Minerals/Chromium/ Copper/Manganese/ Seleni/Zn /Total Parenteral Nutrition/Amino Acids/Dextrose/ Fat Emulsion Intravenous ( Sodium Chloride/ Potassium Phospha... 1,512 ml @ 63 mls/hr TPN CONT IV ; Start 10/16/16 at 22:00; Stop 10/17/16 at 12:50; Status DC Lidocaine/Sodium Bicarbonate 20 ml 20 ml STK-MED ONCE IJ ; Start 10/17/16 at 08: 20; Stop 10/17/16 at 08:21; Status DC Heparin Sodium/ Sodium Chloride 500 ml @ As Directed STK-MED ONCE .ROUTE ; Start 10/17/16 at 08:20; Stop 10/17/16 at 08:21; Status DC Lidocaine/Sodium Bicarbonate (Buffered Lidocaine 1%) 3 ml 1X ONCE IJ Last administered on 10/17/16 08:30; Start 10/17/16 at 08:30; Stop 10/17/16 at 08:31 ; Status DC Heparin Sodium/ Sodium Chloride 60 unit 1X ONCE IV Last administered on 08:30; Start 10/17/16 at 08:30; Stop 10/17/16 at 08:31; Status DC Iohexol (Omnipaque 300 Mg/ml) 50 ml STK-MED ONCE .ROUTE ; Start 10/17/16 at 09: 02; Stop 10/17/16 at 09:03; Status DC Iohexol (Omnipaque 300 Mg/ml) 43 ml 1X ONCE IART Last administered on 08:45; Start 10/17/16 at 09:30; Stop 10/17/16 at 09:33; Status DC Info (Do NOT chart on this entry -- for MONITORING) 1 each PRN DAILY PRN MC SEE COMMENTS; Start 10/17/16 at 09:45; Stop 10/19/16 at 09:44 Clonidine HCl (Catapres Tts-2) 1 patch WEEKLY TD Last administered on 11:58; Start 10/17/16 at 11:00 Labetalol HCl 20 mg 20 mg PRN Q6HRS PRN IVP HYPERTENSION, SEE COMMENTS; Start 10/17/16 at 10:30 Sodium Chloride 1,000 ml @ 45 mls/hr [id number] IV Last administered on 09:32; Start 10/17/16 at 12:30 Sodium Chloride/ Potassium Chloride/ Potassium Phosphate/ Magnesium Sulfate/ Calcium Gluconate/ Multivitamins/ Minerals/Chromium/ Copper/Manganese/ Seleni/Zn /Total Parenteral Nutrition/Amino Acids/Dextrose/ Fat Emulsion Intravenous ( Sodium Chloride/ Potassium Phospha... 1,512 ml @ 63 mls/hr TPN CONT IV Last administered on 10/17/16 21:09; Start 10/17/16 at 22:00; Stop 10/18/16 at 21:59 Active Scripts Active Hydrocodone-Apap 5-325 (Hydrocodone Bit/Acetaminophen) 1 Each Tablet 1 Tab PO PRN Q6HRS PRN Metoprolol Succinate ( Xl ) (Metoprolol Succinate) 25 Mg Tab.er.24h 25 Mg PO DAILY Reported Flomax (Tamsulosin Hcl) 0.4 Mg Cap.er.24h 1 Cap PO QHS Tramadol Hcl 100 Mg Tab.er.24h 100 Mg PO QID Levetiracetam 250 Mg Tablet 250 Mg PO BID Dulcolax (Bisacodyl) 10 Mg Supp.rect 10 Mg RC PRN DAILY PRN Maalox Advanced Suspension (Mag Hydrox/Al Hydrox/Simeth) 770 Ml Oral.susp 30 Ml PO Q2HR PRN Milk Of Magnesia (Magnesium Hydroxide) 400 Mg/5 Ml Oral.susp 30 Ml PO DAILY PRN Robitussin Cough-Chest Dm Liq (Guaifenesin/Dextromethorphan) 118 Ml Liquid 10 Ml PO Q4HRS PRN Trazodone Hcl 50 Mg Tablet 1 Tab PO QHS Tylenol (Acetaminophen) 325 Mg Tablet 650 Mg PO Q6HRS PRN Pramipexole Dihydrochloride (Pramipexole Di-Hcl) 0.5 Mg Tablet 0.5 Mg PO TID Simvastatin 20 Mg Tablet 1 Tab PO QHS Levothyroxine Sodium 100 Mcg Tablet 1 Tab PO DAILY Gabapentin 800 Mg Tablet 800 Mg PO QID Sinemet 25-100 Mg Tablet (Carbidopa/Levodopa) 1 Each Tablet 2 Tab PO TID Aspirin 81 Mg Tab.chew 1 Tab PO DAILY Vitals/I & O Vital Sign - Last 24 Hours 10/17/16 10/17/16 10/17/16 10/17/16 11:20 15:00 15:57 19:15 Temp 97.5 97.7 97.5 97.7 Pulse 86 43 Resp 16 18 B/P 152/64 101/62 Pulse Ox 80 95 O2 Delivery Nasal Cannula Nasal Cannula Nasal Cannula Nasal Cannula O2 Flow Rate 2.0 3.0 2.0 3.0 10/17/16 10/17/16 10/18/16 10/18/16 20:00 23:15 03:16 07:00 Temp 98.1 98.8 98.1 98.1 98.8 98.1 Pulse 97 86 81 Resp 18 18 20 B/P 129/56 142/53 141/58 Pulse Ox 92 92 93 O2 Delivery Nasal Cannula Nasal Cannula Nasal Cannula Nasal Cannula O2 Flow Rate 3.0 3.0 4.0 4.0 10/18/16 10/18/16 07:40 09:46 Resp 18 O2 Delivery Nasal Cannula Nasal Cannula O2 Flow Rate 2.5 2.5 Intake and Output 10/17/16 10/17/16 10/18/16 15:00 23:00 07:00 Intake Total 145 ml 0 ml Output Total 400 ml Balance -255 ml 0 ml RICHARD [place] MD Oct 18, 2016 11:07
--- NOTE | 2016-10-18 12:48 | PDOC ---
SURGICAL PROGRESS NOTE Subjective Pt reports doing better, passing flatus Vital Signs Vital Signs Date Time Temp Pulse Resp B/P Pulse Ox O2 Delivery O2 Flow Rate FiO2 10/18/16 11:00 98.2 92 18 170/84 95 Nasal Cannula 3.0 98.2 I&O Intake and Output 10/18/16 07:00 Intake Total 145 ml Output Total 400 ml Balance -255 ml Intake Oral 0 ml IV Total 145 ml Drainage Total 400 ml # Voids 4 General: Alert, Cooperative, No acute distress Abdomen: Soft, No tenderness Labs Laboratory Tests Test 10/17/16 08:20 White Blood Count 10.4x10^3/uL (4.0-11.0) Red Blood Count 2.57x10^6/uL (4.30-5.70) Hemoglobin 8.3g/dL (13.0-17.5) Hematocrit 25.5% (39.0-53.0) Mean Corpuscular Volume 99fL (79-100) Mean Corpuscular Hemoglobin 32pg (25-35) Mean Corpuscular Hemoglobin Concent 32g/dL (31-37) Red Cell Distribution Width 15.7% (11.5-14.5) Platelet Count 269x10^3/uL (140-400) Neutrophils (%) (Auto) 77% (31-73) Lymphocytes (%) (Auto) 12% (24-48) Monocytes (%) (Auto) 8% (0-9) Eosinophils (%) (Auto) 2% (0-3) Basophils (%) (Auto) 0% (0-3) Neutrophils # (Auto) 8.0x10^3uL (1.8-7.7) Lymphocytes # (Auto) 1.3x10^3/uL (1.0-4.8) Monocytes # (Auto) 0.9x10^3/uL (0.0-1.1) Eosinophils # (Auto) 0.2x10^3/uL (0.0-0.7) Basophils # (Auto) 0.0x10^3/uL (0.0-0.2) Sodium Level 138mmol/L (136-145) Potassium Level 4.3mmol/L (3.5-5.1) Chloride Level 105mmol/L (98-107) Carbon Dioxide Level 27mmol/L (21-32) Anion Gap 6 (6-14) Blood Urea Nitrogen 26mg/dL (8-26) Creatinine 1.4mg/dL (0.7-1.3) Estimated GFR (Cockcroft-Gault) 48.2 Glucose Level 133mg/dL (70-99) Calcium Level 8.2mg/dL (8.5-10.1) Phosphorus Level 2.8mg/dL (2.6-4.7) Magnesium Level 2.2mg/dL (1.8-2.4) Triglycerides Level 122mg/dL (0-150) Problem List Problems Medical Problems: (1) SBO (small bowel obstruction) Status: Acute Assessment/Plan s/p xlap NGT out after visit, OK to leave out and keep NPO await improved bowel fxn Problems: LINA HARP MD Oct 18, 2016 12:48
--- NOTE | 2016-10-18 13:45 | PDOC ---
Infectious Disease Note Subjective Subjective NGT came out. Denies N/V. + flatus, no BM c/o some mild pain, abdomen, back and legs Remains NPO TPN ROS ROS GEN: Denies fevers, chills, sweats CV: Denies chest pain RESP: Denies shortness of air, cough Vital Sign Vital Signs Vital Signs Date Time Temp Pulse Resp B/P Pulse Ox O2 Delivery O2 Flow Rate FiO2 10/18/16 11:00 98.2 92 18 170/84 95 Nasal Cannula 3.0 98.2 Physical Exam PHYSICAL EXAM Up in the chair, smiling, joking NAD HEENT: OC/OP edentulous. pink and dry NECK: Supple, no JVD, no LN LUNGS: Clear HEART: S1S2, no gallop, no murmur ABD: Obese, hypoactive BS, NT light palpation. Incision well-approx. No redness or drainage. EXT: BLE trace edema. No cyanosis INTAKE ASSESSOR: Alert, 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. + tremor SKIN: No rash RUE-PICC. clean Objective Assessment Fever. Resolved Leucocytosis. Resolved Partial small bowel obstruction. s/p exp lap w/ CONG 10/13 N/V. better Dislodgement of NGT Hiatal hernia + MRSA Cipro allergy. Seizure disorder Parkinson's disease h/o UTI: Citrobacter & Klebsiella h/o E. coli bacteremia Plan Plan of Care Zosyn. Wean soon f/u am labs supportive care Attending Co-Sign Attending Co-Sign The patient was seen and interviewed as well as examined at the bedside. The chart was reviewed. The case was discussed. Agree with the plan of care. LATRICE OLSON APRN Oct 18, 2016 13:45 SAMI MARTINEZ MD Oct 18, 2016 15:32
[2016-10-18 13:51] LABS: CREATININE 1.3 mg/dL (0.7-1.3); GFR 52.5; MAGNESIUM 2.2 mg/dL (1.8-2.4); PHOSPHORUS 2.8 mg/dL (2.6-4.7); POTASSIUM 4.2 mmol/L (3.5-5.1)
[2016-10-18] MEDS: TPN PER PHARMACY MC PRN (13:58)
[2016-10-18 15:00] VITALS: BP 152/65
[2016-10-18 19:00] VITALS: BP 195/82
[2016-10-18] MEDS ORDERED: TOTAL PARENTERAL NUTRITION 1,424.9987 ML, AMINO ACIDS 10 % 60 GM, DEXTROSE 70 % IN WATE... IV SCH ×10 (22:00)
[2016-10-18 23:00] VITALS: BP 135/62
[2016-10-19 03:00] VITALS: BP 150/73
[2016-10-19] MEDS: PIPERACILLIN/TAZOBACTAM 3.375 GM in IV NORMAL SALINE 50ML 50 ML IV SCH ×2 (06:18→12:42)
[2016-10-19] MEDS: PANTOPRAZOLE IV PUSH 40 MG VIAL. IVP SCH ×2 (06:18→08:30)
[2016-10-19] MEDS: MORPHINE SULFATE 4 MG/ML DISP.SYRIN. IV PRN ×4 (06:18→17:49)
[2016-10-19] MEDS: IV 1/2 NORMAL SALINE 1,000 ML IV SCH (06:32)
[2016-10-19 06:40] LABS: HEMATOCRIT 24.1 % (39.0-53.0); HEMOGLOBIN 7.8 g/dL (13.0-17.5)
[2016-10-19 06:41] LABS: BASO # 0.1 x10^3/uL (0.0-0.2); BASO % 1 % (0-3); EOS % 3 % (0-3); LYMPH # 1.7 x10^3/uL (1.0-4.8); LYMPH % 19 % (24-48); MEAN CORPUSCULAR HEMOGLOBIN 32 pg (25-35); MEAN CORPUSCULAR HGB CONC 32 g/dL (31-37); MEAN CORPUSCULAR VOLUME 101 fL (79-100); MONO % 9 % (0-9); NEUT % 68 % (31-73); PLATELET COUNT 241 x10^3/uL (140-400); RED CELL DISTRIBUTION WIDTH 15.8 % (11.5-14.5)
[2016-10-19 06:55] LABS: CALCIUM 8.3 mg/dL (8.5-10.1); CREATININE 1.5 mg/dL (0.7-1.3); GFR 44.5; MAGNESIUM 2.3 mg/dL (1.8-2.4); POTASSIUM 4.3 mmol/L (3.5-5.1)
[2016-10-19 07:00] VITALS: BP 145/62
[2016-10-19] MEDS: ENOXAPARIN 40 MG/0.4 ML DISP.SYRIN. SQ SCH (08:29)
[2016-10-19] MEDS: ONDANSETRON PF 4 MG/2 ML VIAL. IV PRN (08:29)
[2016-10-19] MEDS: LEVETIRACETAM 500 MG in IV NORMAL SALINE 100ML 100 ML IV SCH ×2 (08:30→22:29)
--- NOTE | 2016-10-19 10:09 | PDOC ---
PROGRESS NOTES Subjective Subjective ng tube dislodged yesterday and was not displaced and denies vomiting. says he passed flatus but no BM. denies abdominal pain. blood pressure is okay. lab reviewed. Objective Objective Vital Signs Date Time Temp Pulse Resp B/P Pulse Ox O2 Delivery O2 Flow Rate FiO2 10/19/16 10:00 95 Nasal Cannula 3.0 10/19/16 07:00 97.9 72 20 145/62 97.9 Intake and Output 10/19/16 07:00 Intake Total 100 ml Output Total 300 ml Balance -200 ml Intake Oral 100 ml Gastric Drainage Total 300 ml # Voids 4 Physical Exam Abdomen: Normal bowel sounds, Soft, Other (wound clean and dry) Heart: Regular rate, Normal S1, Normal S2 Extremities: Other (1 plus edema both legs and left arm) General: Alert HEENT: Atraumatic Lungs: Clear to auscultation Neuro: Normal speech Psych/Mental Status: Mood NL Skin: No rashes Assessment Assessment Problems Medical Problems:Small-bowel obstruction resolved exploratory laparotomy 10/13/16. lysis of adhesions. bowel viable. post op ileus 2. Seizure disorder. 3. Parkinson's disease. 4. Hypothyroidism. 5. Peripheral neuropathy. 6. Hypertension. bp high 7. Chronic kidney disease stage III. klebsiella uti treated suspected gout synovitis resolved peripheral edema critical illness myopathy hematemesis resolved LUE edematous. venous doppler LUE negative (1) SBO (small bowel obstruction) Status: Acute Plan Plan of Care continue TPN d/c peripheral iv fluids iv lasix times 1 continue iv zosyn PT and OT Comment Review of Relevant I have reviewed the following items [place] (where applicable) has been applied. Labs Laboratory Tests Test 10/18/16 13:15 10/19/16 06:30 10/19/16 06:45 Sodium Level 142mmol/L (136-145) 139mmol/L (136-145) Potassium Level 4.2mmol/L (3.5-5.1) 4.3mmol/L (3.5-5.1) Chloride Level 108mmol/L (98-107) 108mmol/L (98-107) Carbon Dioxide Level 26mmol/L (21-32) 24mmol/L (21-32) Anion Gap 8 (6-14) 7 (6-14) Blood Urea Nitrogen 21mg/dL (8-26) 20mg/dL (8-26) Creatinine 1.3mg/dL (0.7-1.3) 1.5mg/dL (0.7-1.3) Estimated GFR (Cockcroft-Gault) 52.5 44.5 Glucose Level 131mg/dL (70-99) 126mg/dL (70-99) Calcium Level 8.0mg/dL (8.5-10.1) 8.3mg/dL (8.5-10.1) Phosphorus Level 2.8mg/dL (2.6-4.7) Magnesium Level 2.2mg/dL (1.8-2.4) 2.3mg/dL (1.8-2.4) White Blood Count 9.0x10^3/uL (4.0-11.0) Red Blood Count 2.40x10^6/uL (4.30-5.70) Hemoglobin 7.8g/dL (13.0-17.5) Hematocrit 24.1% (39.0-53.0) Mean Corpuscular Volume 101fL (79-100) Mean Corpuscular Hemoglobin 32pg (25-35) Mean Corpuscular Hemoglobin Concent 32g/dL (31-37) Red Cell Distribution Width 15.8% (11.5-14.5) Platelet Count 241x10^3/uL (140-400) Neutrophils (%) (Auto) 68% (31-73) Lymphocytes (%) (Auto) 19% (24-48) Monocytes (%) (Auto) 9% (0-9) Eosinophils (%) (Auto) 3% (0-3) Basophils (%) (Auto) 1% (0-3) Neutrophils # (Auto) 6.2x10^3uL (1.8-7.7) Lymphocytes # (Auto) 1.7x10^3/uL (1.0-4.8) Monocytes # (Auto) 0.8x10^3/uL (0.0-1.1) Eosinophils # (Auto) 0.3x10^3/uL (0.0-0.7) Basophils # (Auto) 0.1x10^3/uL (0.0-0.2) Laboratory Tests Test 10/18/16 13:15 1/15/17 06:30 10/19/16 06:45 Sodium Level 142mmol/L (136-145) 139mmol/L (136-145) Potassium Level 4.2mmol/L (3.5-5.1) 4.3mmol/L (3.5-5.1) Chloride Level 108mmol/L (98-107) 108mmol/L (98-107) Carbon Dioxide Level 26mmol/L (21-32) 24mmol/L (21-32) Anion Gap 8 (6-14) 7 (6-14) Blood Urea Nitrogen 21mg/dL (8-26) 20mg/dL (8-26) Creatinine 1.3mg/dL (0.7-1.3) 1.5mg/dL (0.7-1.3) Estimated GFR (Cockcroft-Gault) 52.5 44.5 Glucose Level 131mg/dL (70-99) 126mg/dL (70-99) Calcium Level 8.0mg/dL (8.5-10.1) 8.3mg/dL (8.5-10.1) Phosphorus Level 2.8mg/dL (2.6-4.7) Magnesium Level 2.2mg/dL (1.8-2.4) 2.3mg/dL (1.8-2.4) White Blood Count 9.0x10^3/uL (4.0-11.0) Red Blood Count 2.40x10^6/uL (4.30-5.70) Hemoglobin 7.8g/dL (13.0-17.5) Hematocrit 24.1% (39.0-53.0) Mean Corpuscular Volume 101fL (79-100) Mean Corpuscular Hemoglobin 32pg (25-35) Mean Corpuscular Hemoglobin Concent 32g/dL (31-37) Red Cell Distribution Width 15.8% (11.5-14.5) Platelet Count 241x10^3/uL (140-400) Neutrophils (%) (Auto) 68% (31-73) Lymphocytes (%) (Auto) 19% (24-48) Monocytes (%) (Auto) 9% (0-9) Eosinophils (%) (Auto) 3% (0-3) Basophils (%) (Auto) 1% (0-3) Neutrophils # (Auto) 6.2x10^3uL (1.8-7.7) Lymphocytes # (Auto) 1.7x10^3/uL (1.0-4.8) Monocytes # (Auto) 0.8x10^3/uL (0.0-1.1) Eosinophils # (Auto) 0.3x10^3/uL (0.0-0.7) Basophils # (Auto) 0.1x10^3/uL (0.0-0.2) Microbiology 10/13/16 Blood Culture - Final, Complete NO GROWTH AFTER 5 DAYS 10/13/16 Urine Culture - Final, Complete 10/13/16 Urine Culture Result 1 (MANDEEP) - Final, Complete Medications Current Medications Fentanyl Citrate 50 mcg 50 mcg PRN Q15MIN PRN IV PAIN GREATER THAN 3/10 Last administered on 09/30/16at 19:35; Start 09/30/16 at 17:30; Stop 10/01/16 at 04 :24; Status DC Lactated Ringer's (Iv Lactated Ringers) 1,000 ml @ 100 mls/hr Q10H IV Last administered on 09/30/16at 19:35; Start 09/30/16 at 17:28; Stop 10/01/16 at 03 :27; Status DC Ondansetron HCl (Zofran) 4 mg 1X ONCE IV Last administered on 09/30/16at 17:44 ; Start 09/30/16 at 17:30; Stop 09/30/16 at 17:32; Status DC Fentanyl Citrate (Fentanyl 2ml Vial) 50 mcg 1X ONCE IV ; Start 09/30/16 at 19: 15; Stop 10/01/16 at 04:24; Status DC Ondansetron HCl (Zofran) 4 mg PRN Q8HRS PRN IV NAUSEA/VOMITING Last administered on 09/30/16at 22:07; Start 09/30/16 at 19:15; Stop 10/01/16 at 19 :14; Status DC Fentanyl Citrate 50 mcg 50 mcg PRN Q2HR PRN IV PAIN Last administered on at 16:54; Start 09/30/16 at 19:15; Stop 10/01/16 at 19:14; Status DC Sodium Chloride 1,000 ml @ 100 mls/hr Q10H IV ; Start 09/30/16 at 19:30; Stop 10/01/16 at 04:24; Status DC Potassium Chloride/Dextrose/ Sod Cl (KCl 20 Meq In D5W-1/2 NS) 1,000 ml @ 125 mls/hr Q8H IV Last administered on 10/04/16at 06:02; Start 09/30/16 at 20:00; Stop 10/04/16 at 10:21; Status DC Enoxaparin Sodium 40 mg 40 mg Q24H SQ Last administered on 10/13/16 08:14; Start 10/01/16 at 09:00; Stop 10/13/16 at 08:36; Status DC Levetiracetam/ Sodium Chloride (Keppra/Iv Sodium Chloride 0.9% 100ml) 105 ml @ 400 mls/hr Q12HR IV Last administered on 10/05/16 09:30; Start 09/30/16 at 21: 00; Stop 10/05/16 at 10:24; Status DC Morphine Sulfate 2 mg PRN Q4HRS PRN IV SEVERE PAIN Last administered on 10:13; Start 09/30/16 at 19:30; Stop 10/05/16 at 10:24; Status DC Acetaminophen (Tylenol) 650 mg PRN Q6HRS PRN NC MILD PAIN / TEMP; Start at 19:30; Stop 10/05/16 at 10:24; Status DC Ondansetron HCl (Zofran) 4 mg PRN Q6HRS PRN IV NAUSEA/VOMITING Last administered on 10/07/16 08:28; Start 09/30/16 at 19:30; Stop 10/09/16 at 12:08 ; Status DC Benzocaine (Hurricaine One) 1 spray STK-MED ONCE .ROUTE ; Start 09/30/16 at 19: 51; Stop 09/30/16 at 19:52; Status DC Morphine Sulfate 4 mg PRN Q4HRS PRN IV PAIN Last administered on 10/05/16 08:08 ; Start 10/01/16 at 20:00; Stop 10/05/16 at 10:24; Status DC Clonidine HCl 1 patch 1 patch WEEKLY TD Last administered on 10/03/16at 12:30; Start 10/03/16 at 10:00; Stop 10/05/16 at 10:24; Status DC Piperacillin Sod/ Tazobactam Sod/ Sodium Chloride (Zosyn/Iv Sodium Chloride 0.9 % 50ml) 50 ml @ 100 mls/hr Q6HRS IV Last administered on 10/09/16 06:26; Start 10/04/16 at 11:00; Stop 10/09/16 at 10:55; Status DC Vancomycin HCl 1 each 1 each PRN DAILY PRN MC SEE COMMENTS Last administered on 10/07/16 11:11; Start 10/04/16 at 10:15; Stop 10/07/16 at 11:28; Status DC Vancomycin HCl/ Sodium Chloride (Iv Sodium Chloride 0.9% 250ml) 250 ml @ 250 mls/hr Q24H IV ; Start 10/04/16 at 10:15; Status UNV Labetalol HCl (Normodyne) 20 mg PRN Q6HRS PRN IVP HYPERTENSION, SEE COMMENTS; Start 10/04/16 at 10:15; Stop 10/05/16 at 10:24; Status DC Hydralazine HCl 10 mg 10 mg PRN Q6HRS PRN IVP ELEVATED BP, SEE COMMENTS Last administered on 10/06/16 19:17; Start 10/04/16 at 10:15; Stop 10/12/16 at 10:40 ; Status DC Amino Acids/ Glycerin/ Electrolytes 1,000 ml @ 40 mls/hr Q24H IV Last administered on 10/06/16 09:59; Start 10/04/16 at 10:15; Stop 10/07/16 at 09:06 ; Status DC Vancomycin HCl 2 gm/Sodium Chloride 500 ml @ 250 mls/hr 1X ONCE IV Last administered on 10/04/16at 11:26; Start 10/04/16 at 10:45; Stop 10/04/16 at 12 :44; Status DC Vancomycin HCl/ Sodium Chloride (Iv Sodium Chloride 0.9% 500ml Bag) 500 ml @ 250 mls/hr Q24H IV Last administered on 10/06/16 11:47; Start 10/05/16 at 12:00 ; Stop 10/07/16 at 11:28; Status DC Vancomycin HCl 1 each 1X ONCE MC Last administered on 10/06/16 11:30; Start at 11:30; Stop 10/06/16 at 11:31; Status DC Aspirin (Children'S Aspirin) 81 mg [id number] PO Last administered on 10/13/16 08:15; Start 10/05/16 at 11:00; Stop 10/13/16 at 08:29; Status DC Gabapentin (Neurontin) 600 mg QID PO Last administered on 10/13/16 08:14; Start 10/05/16 at 13:00; Stop 10/14/16 at 08:47; Status DC Levetiracetam (Keppra) 250 mg BID PO Last administered on 10/13/16 08:17; Start 10/05/16 at 11:00; Stop 10/14/16 at 08:47; Status DC Levothyroxine Sodium (Synthroid) 100 mcg DAILY07 PO Last administered on 05:08; Start 10/05/16 at 10:30; Stop 10/14/16 at 08:48; Status DC Metoprolol Succinate (Toprol Xl) 25 mg DAILY PO Last administered on 10/13/16 08:16; Start 10/05/16 at 11:00; Stop 10/14/16 at 08:47; Status DC Pramipexole Dihydrochloride (miraPEX) 0.5 mg [id number] PO Last administered on 10/13 08:15; Start 10/05/16 at 11:00; Stop 10/14/16 at 08:48; Status DC Simvastatin (Zocor) 20 mg HS PO Last administered on 10/12/16 21:07; Start 10/05 at 21:00; Stop 10/14/16 at 08:48; Status DC Carbidopa/Levodopa (Sinemet Cr) 1 tab.sa TID PO Last administered on 10/13/16 08:16; Start 10/05/16 at 11:00; Stop 10/14/16 at 08:48; Status DC Tamsulosin HCl (Flomax) 0.4 mg QHS PO Last administered on 10/12/16 21:07; Start 10/05/16 at 21:00; Stop 10/14/16 at 08:48; Status DC Tramadol HCl (Ultram) 50 mg QID PO Last administered on 10/13/16 08:17; Start 10/05/16 at 13:00; Stop 10/14/16 at 08:48; Status DC Acetaminophen (Tylenol) 650 mg PRN Q4HRS PRN PO MILD PAIN / TEMP Last administered on 10/13/16 00:17; Start 10/05/16 at 10:15; Stop 10/14/16 at 08:48; Status DC Prednisone (Prednisone) 20 mg 1X ONCE PO Last administered on 10/06/16 11:01; Start 10/06/16 at 10:30; Stop 10/06/16 at 10:31; Status DC Prednisone (Prednisone) 10 mg DAILY08 PO Last administered on 10/13/16 08:15; Start 10/07/16 at 08:00; Stop 10/13/16 at 08:29; Status DC Al Hydroxide/Mg Hydroxide (Mylanta Plus Xs) 30 ml PRN Q4HRS PRN PO HEARTBURN / GAS Last administered on 10/12/16 21:07; Start 10/07/16 at 08:45; Stop 10/14/16 at 08:48; Status DC Pantoprazole Sodium (Protonix) 40 mg DAILYAC PO Last administered on 10/13/16 05:08; Start 10/07/16 at 10:00; Stop 10/13/16 at 06:45; Status DC Furosemide 40 mg 40 mg DAILY PO Last administered on 10/08/16 08:42; Start 10/07 at 10:00; Stop 10/08/16 at 08:56; Status DC Sodium Chloride (Iv Sodium Chloride 0.45%) 1,000 ml @ 60 mls/hr CONT PRN IV . ; Start 10/08/16 at 09:00; Stop 10/08/16 at 16:06; Status DC Bisacodyl 10 mg 10 mg 1X ONCE NC Last administered on 10/08/16 10:11; Start at 09:30; Stop 10/08/16 at 09:31; Status DC Sodium Chloride (Iv Sodium Chloride 0.45%) 1,000 ml @ 60 mls/hr [id number] IV Last administered on 10/09/16 02:52; Start 10/08/16 at 10:15; Stop 10/09/16 at 12: 00; Status DC Cefpodoxime Proxetil (Vantin) 200 mg BID PO ; Start 10/09/16 at 11:00; Stop at 12:08; Status DC Cefpodoxime Proxetil (Vantin) 100 mg BID PO Last administered on 10/13/16 08:16 ; Start 10/09/16 at 21:00; Stop 10/13/16 at 08:29; Status DC Ondansetron HCl (Zofran) 4 mg STK-MED ONCE .ROUTE Last administered on 01:24; Start 10/13/16 at 01:19; Stop 10/13/16 at 01:20; Status DC Ondansetron HCl (Zofran) 4 mg PRN Q6HRS PRN IV NAUSEA/VOMITING Last administered on 10/19/16 08:29; Start 10/13/16 at 02:00 Pantoprazole Sodium 40 mg 40 mg DAILYAC IVP Last administered on 10/19/16 08: 30; Start 10/13/16 at 07:30 Dextrose/Sodium Chloride (Iv D5% - NS) 1,000 ml @ 60 mls/hr [id number] IV Last administered on 10/13/16 09:25; Start 10/13/16 at 08:30; Stop 10/13/16 at 11:01; Status DC Sodium Polystyrene Sulfonate 15 gm 15 gm 1X ONCE PO Last administered on 09:26; Start 10/13/16 at 08:30; Stop 10/13/16 at 08:31; Status DC Piperacillin Sod/ Tazobactam Sod 3.375 gm/Sodium Chloride 50 ml @ 100 mls/hr Q6HRS IV Last administered on 10/19/16 06:18; Start 10/13/16 at 09:00 Dextrose/Sodium Chloride (Iv D5% - 1/2 NS) 1,000 ml @ 50 mls/hr Q20H IV Last administered on 10/17/16 00:16; Start 10/13/16 at 11:00; Stop 10/17/16 at 12:23 ; Status DC Ondansetron HCl (Zofran) 4 mg PRN Q6HRS PRN IV Nausea 1ST CHOICE; Start at 12:30; Stop 10/14/16 at 11:07; Status DC Fentanyl Citrate (Fentanyl 2ml Vial) 25 mcg PRN Q5MIN PRN IV MILD PAIN; Start 10/13/16 at 12:30; Stop 10/14/16 at 11:04; Status DC Fentanyl Citrate (Fentanyl 2ml Vial) 50 mcg PRN Q5MIN PRN IV MODERATE PAIN; Start 10/13/16 at 12:30; Stop 10/14/16 at 11:04; Status DC Morphine Sulfate 1 mg 1 mg PRN Q10MIN PRN IV SEVERE PAIN; Start 10/13/16 at 12: 30; Stop 10/14/16 at 11:00; Status DC Lactated Ringer's (Iv Lactated Ringers) 1,000 ml @ 0 mls/hr Q0M IV ; Start 10/13 at 12:17; Stop 10/14/16 at 00:16; Status DC Lidocaine HCl 2 ml 1X PRN PRN ID IV START; Start 10/13/16 at 12:30; Stop at 16:03; Status DC Hydromorphone HCl (Dilaudid) 0.5 mg PRN Q10MIN PRN IV SEV PAIN,Second choice; Start 10/13/16 at 12:30; Stop 10/14/16 at 11:04; Status DC Prochlorperazine Edisylate (Compazine) 5 mg PACU PRN PRN IV NAUSEA; Start at 12:30; Stop 10/14/16 at 11:00; Status DC Fentanyl Citrate (Fentanyl 2ml Vial) 50 mcg PRN Q5MIN PRN IV Acute Pain Last administered on 10/14/16t 10:04; Start 10/13/16 at 13:00; Stop 10/14/16 at 11:04 ; Status DC Morphine Sulfate 4 mg PRN Q10MIN PRN IV Moderate Pain; Start 10/13/16 at 13:00; Stop 10/14/16 at 11:00; Status DC Hydromorphone HCl (Dilaudid) 0.4 mg PRN Q10MIN PRN IV Moderate to severe pain; Start 10/13/16 at 13:00; Stop 10/14/16 at 11:04; Status DC Meperidine HCl (Demerol) 12.5 mg PRN Q5MIN PRN IV SHIVERING; Start 10/13/16 at 13:00; Stop 10/14/16 at 11:00; Status DC Prochlorperazine Edisylate (Compazine) 5 mg PRN Q6HRS PRN IV Nausea/Vomiting, 1st Choice; Start 10/13/16 at 13:00; Stop 10/14/16 at 11:00; Status DC Diphenhydramine HCl (Benadryl) 12.5 mg PRN Q2HR PRN IV ITCHING; Start 10/13/16 at 13:00; Stop 10/14/16 at 11:00; Status DC Midazolam HCl (Versed) 2 mg PRN 1X PRN IV PRIOR TO PROCEDURE; Start 10/13/16 at 13:00; Stop 10/14/16 at 11:07; Status DC Midazolam HCl (Versed) 1 mg PRN 1X PRN IV PRIOR TO PROCEDURE; Start 10/13/16 at 13:00; Stop 10/14/16 at 11:07; Status DC Fentanyl Citrate (Fentanyl 2ml Vial) 25 mcg PRN Q5MIN PRN IV X 2 DOSES FOR PAIN ; Start 10/13/16 at 13:00; Stop 10/14/16 at 11:04; Status DC Fentanyl Citrate 50 mcg 50 mcg PRN Q5MIN PRN IV X 2 DOSES FOR PAIN; Start at 13:00; Stop 10/14/16 at 11:04; Status DC Lactated Ringer's (Iv Lactated Ringers) 1,000 ml @ 125 mls/hr Q8H IV Last administered on 10/13/16t 13:30; Start 10/13/16 at 12:48; Stop 10/14/16 at 00:47; Status DC Lidocaine HCl 2 ml 1X PRN PRN ID IV START; Start 10/13/16 at 13:00; Stop at 16:03; Status DC Fentanyl Citrate (Fentanyl 2ml Vial) 25 mcg PRN Q2HR PRN IV PAIN MOD TO SEV; Start 10/13/16 at 20:30; Stop 10/14/16 at 14:15; Status DC Fentanyl Citrate (Fentanyl 2ml Vial) 50 mcg PRN Q2HR PRN IV PAIN MOD TO SEV Last administered on 10/14/16t 12:02; Start 10/13/16 at 20:30; Stop 10/14/16 at 14:15; Status DC Enoxaparin Sodium (Lovenox 40mg Syringe) 40 mg Q24H SQ Last administered on t 08:29; Start 10/14/16 at 09:00 Fentanyl Citrate 100 mcg 100 mcg STK-MED ONCE .ROUTE ; Start 10/13/16 at 13:27; Stop 10/14/16 at 07:31; Status DC Propofol (Diprivan) 20 ml @ As Directed STK-MED ONCE IV ; Start 10/13/16 at 13:27 ; Stop 10/14/16 at 07:31; Status DC Rocuronium Ravenel (Zemuron) 50 mg STK-MED ONCE .ROUTE ; Start 10/13/16 at 13:27 ; Stop 10/14/16 at 07:31; Status DC Lidocaine HCl 100 mg STK-MED ONCE .ROUTE ; Start 10/13/16 at 13:27; Stop at 07:31; Status DC Fentanyl Citrate (Fentanyl 2ml Vial) 100 mcg STK-MED ONCE .ROUTE ; Start at 13:27; Stop 10/14/16 at 07:31; Status DC Ephedrine Sulfate (Akovaz) 50 mg STK-MED ONCE .ROUTE ; Start 10/13/16 at 14:00; Stop 10/14/16 at 07:31; Status DC Phenylephrine HCl 1 mg STK-MED ONCE IV ; Start 10/13/16 at 14:25; Stop 10/14/16 at 07:31; Status DC Desflurane (Suprane) 60 ml STK-MED ONCE IH ; Start 10/13/16 at 14:25; Stop at 07:31; Status DC Dexamethasone Sodium Phosphate (Decadron) 20 mg STK-MED ONCE .ROUTE ; Start 10/13 at 14:25; Stop 10/14/16 at 07:31; Status DC Ondansetron HCl (Zofran) 4 mg STK-MED ONCE .ROUTE ; Start 10/13/16 at 14:25; Stop 10/14/16 at 07:31; Status DC Famotidine (Pepcid) 20 mg STK-MED ONCE .ROUTE ; Start 10/13/16 at 14:25; Stop 07/21 at 07:31; Status DC Rocuronium Ravenel (Zemuron) 50 mg STK-MED ONCE .ROUTE ; Start 10/13/16 at 16:19 ; Stop 10/14/16 at 07:31; Status DC Fentanyl Citrate (Fentanyl 2ml Vial) 100 mcg STK-MED ONCE .ROUTE ; Start at 16:21; Stop 10/14/16 at 07:31; Status DC Desflurane (Suprane) 90 ml STK-MED ONCE IH ; Start 10/13/16 at 16:53; Stop at 07:31; Status DC Glycopyrrolate (Robinul) 1 mg STK-MED ONCE .ROUTE ; Start 10/13/16 at 17:00; Stop 10/14/16 at 07:31; Status DC Neostigmine Methylsulfate 5 mg STK-MED ONCE .ROUTE ; Start 10/13/16 at 17:00; Stop 10/14/16 at 07:31; Status DC Phenylephrine HCl 1 mg STK-MED ONCE IV ; Start 10/13/16 at 18:14; Stop 10/14/16 at 07:31; Status DC Fentanyl Citrate (Fentanyl 2ml Vial) 100 mcg STK-MED ONCE .ROUTE ; Start at 18:20; Stop 10/14/16 at 07:31; Status DC Fentanyl Citrate 100 mcg 100 mcg STK-MED ONCE .ROUTE ; Start 10/13/16 at 19:17; Stop 10/14/16 at 07:31; Status DC Levetiracetam 500 mg/Sodium Chloride 105 ml @ 400 mls/hr Q12HR IV Last administered on 10/19/16 08:30; Start 10/14/16 at 09:00 Amino Acids/ Glycerin/ Electrolytes (Procalamine) 1,000 ml @ 80 mls/hr [id number] IV Last administered on 10/16/16 09:16; Start 10/14/16 at 11:15; Stop at 21:59; Status DC Morphine Sulfate 2 mg PRN Q4HRS PRN IV MODERATE PAIN Last administered on 20:22; Start 10/14/16 at 14:15 Morphine Sulfate 4 mg PRN Q4HRS PRN IV SEVERE PAIN Last administered on 10:00; Start 10/14/16 at 14:30 Info 1 each 1 each PRN DAILY PRN MC SEE COMMENTS Last administered on 13:58; Start 10/16/16 at 11:30 Sodium Chloride/ Potassium Chloride/ Potassium Phosphate/ Magnesium Sulfate/ Calcium Gluconate/ Multivitamins/ Minerals/Chromium/ Copper/Manganese/ Seleni/Zn /Total Parenteral Nutrition/Amino Acids/Dextrose/ Fat Emulsion Intravenous ( Sodium Chloride/ Potassium Phospha... 1,512 ml @ 63 mls/hr TPN CONT IV ; Start 10/16/16 at 22:00; Stop 10/17/16 at 12:50; Status DC Lidocaine/Sodium Bicarbonate 20 ml 20 ml STK-MED ONCE IJ ; Start 10/17/16 at 08: 20; Stop 10/17/16 at 08:21; Status DC Heparin Sodium/ Sodium Chloride 500 ml @ As Directed STK-MED ONCE .ROUTE ; Start 10/17/16 at 08:20; Stop 10/17/16 at 08:21; Status DC Lidocaine/Sodium Bicarbonate (Buffered Lidocaine 1%) 3 ml 1X ONCE IJ Last administered on 10/17/16 08:30; Start 10/17/16 at 08:30; Stop 10/17/16 at 08:31 ; Status DC Heparin Sodium/ Sodium Chloride 60 unit 1X ONCE IV Last administered on 08:30; Start 10/17/16 at 08:30; Stop 10/17/16 at 08:31; Status DC Iohexol (Omnipaque 300 Mg/ml) 50 ml STK-MED ONCE .ROUTE ; Start 10/17/16 at 09: 02; Stop 10/17/16 at 09:03; Status DC Iohexol (Omnipaque 300 Mg/ml) 43 ml 1X ONCE IART Last administered on 08:45; Start 10/17/16 at 09:30; Stop 10/17/16 at 09:33; Status DC Info (Do NOT chart on this entry -- for MONITORING) 1 each PRN DAILY PRN MC SEE COMMENTS; Start 10/17/16 at 09:45; Stop 10/19/16 at 09:44; Status DC Clonidine HCl (Catapres Tts-2) 1 patch WEEKLY TD Last administered on 11:58; Start 10/17/16 at 11:00 Labetalol HCl 20 mg 20 mg PRN Q6HRS PRN IVP HYPERTENSION, SEE COMMENTS; Start 10/17/16 at 10:30 Sodium Chloride 1,000 ml @ 60 mls/hr [id number] IV Last administered on 06:32; Start 10/17/16 at 12:30 Sodium Chloride 90 meq/Potassium Chloride 50 meq/ Potassium Phosphate 13.6 mmol/ Magnesium Sulfate 10 meq/ Calcium Gluconate 10 meq/ Multivitamins/ Minerals 10 ml/ Chromium/Copper/ Manganese/Seleni/ Zn 1 ml/Total Parenteral Nutrition/Amino Acids/Dextrose/ Fat Emulsion Intravenous 1,512 ml @ 63 mls/hr TPN CONT IV Last administered on 10/17/16 21:09; Start 10/17/16 at 22:00; Stop 10/18/16 at 21:59; Status DC Sodium Chloride/ Potassium Chloride/ Potassium Phosphate/ Magnesium Sulfate/ Calcium Gluconate/ Multivitamins/ Minerals/Chromium/ Copper/Manganese/ Seleni/Zn /Total Parenteral Nutrition/Amino Acids/Dextrose/ Fat Emulsion Intravenous ( Sodium Chloride/ Potassium Phospha... 1,512 ml @ 63 mls/hr TPN CONT IV Last administered on 10/18/16 21:24; Start 10/18/16 at 22:00; Stop 10/19/16 at 21:59 Active Scripts Active Hydrocodone-Apap 5-325 (Hydrocodone Bit/Acetaminophen) 1 Each Tablet 1 Tab PO PRN Q6HRS PRN Metoprolol Succinate ( Xl ) (Metoprolol Succinate) 25 Mg Tab.er.24h 25 Mg PO DAILY Reported Flomax (Tamsulosin Hcl) 0.4 Mg Cap.er.24h 1 Cap PO QHS Tramadol Hcl 100 Mg Tab.er.24h 100 Mg PO QID Levetiracetam 250 Mg Tablet 250 Mg PO BID Dulcolax (Bisacodyl) 10 Mg Supp.rect 10 Mg RC PRN DAILY PRN Maalox Advanced Suspension (Mag Hydrox/Al Hydrox/Simeth) 770 Ml Oral.susp 30 Ml PO Q2HR PRN Milk Of Magnesia (Magnesium Hydroxide) 400 Mg/5 Ml Oral.susp 30 Ml PO DAILY PRN Robitussin Cough-Chest Dm Liq (Guaifenesin/Dextromethorphan) 118 Ml Liquid 10 Ml PO Q4HRS PRN Trazodone Hcl 50 Mg Tablet 1 Tab PO QHS Tylenol (Acetaminophen) 325 Mg Tablet 650 Mg PO Q6HRS PRN Pramipexole Dihydrochloride (Pramipexole Di-Hcl) 0.5 Mg Tablet 0.5 Mg PO TID Simvastatin 20 Mg Tablet 1 Tab PO QHS Levothyroxine Sodium 100 Mcg Tablet 1 Tab PO DAILY Gabapentin 800 Mg Tablet 800 Mg PO QID Sinemet 25-100 Mg Tablet (Carbidopa/Levodopa) 1 Each Tablet 2 Tab PO TID Aspirin 81 Mg Tab.chew 1 Tab PO DAILY Vitals/I & O Vital Sign - Last 24 Hours 10/18/16 10/18/16 10/18/16 10/18/16 10:15 11:00 15:00 19:00 Temp 98.2 97.9 98.1 98.2 97.9 98.1 Pulse 92 87 97 Resp 20 18 18 24 B/P 170/84 152/65 195/82 Pulse Ox 95 94 97 O2 Delivery Nasal Cannula Nasal Cannula Nasal Cannula Nasal Cannula O2 Flow Rate 2.5 3.0 3.0 3.0 10/18/16 10/18/16 10/18/16 10/19/16 20:00 20:22 23:00 03:00 Temp 99.1 98.6 99.1 98.6 Pulse 74 98 Resp 20 16 B/P 135/62 150/73 Pulse Ox 94 97 98 O2 Delivery Nasal Cannula Nasal Cannula Nasal Cannula Nasal Cannula O2 Flow Rate 2.5 2.0 3.0 3.0 10/19/16 10/19/16 07:00 10:00 Temp 97.9 97.9 Pulse 72 Resp 20 B/P 145/62 Pulse Ox 95 95 O2 Delivery Nasal Cannula Nasal Cannula O2 Flow Rate 3.0 3.0 Intake and Output 10/18/16 10/18/16 10/19/16 15:00 23:00 07:00 Intake Total 0 ml 100 ml Output Total 300 ml Balance -300 ml 0 ml 100 ml RICHARD [place] MD Oct 19, 2016 10:09
[2016-10-19] MEDS ORDERED: FUROSEMIDE 20 MG/2 ML VIAL IVP ONE (10:30)
[2016-10-19 11:00] VITALS: BP 162/67
--- NOTE | 2016-10-19 11:38 | PDOC ---
Infectious Disease Note Subjective Subjective NGT remains came out. He is holding a basin just in case he vomits, though not feeling nauseous at the moment. + flatus, no BM. Mild cramps Remains NPO. TPN ROS ROS GEN: Denies fevers, chills, sweats CV: Denies chest pain RESP: Denies shortness of air, cough GI: Denies n/v/d Vital Sign Vital Signs Vital Signs Date Time Temp Pulse Resp B/P Pulse Ox O2 Delivery O2 Flow Rate FiO2 10/19/16 11:00 97.6 86 18 162/67 94 Nasal Cannula 3.0 97.6 Physical Exam PHYSICAL EXAM GENERAL: Up in the chair, smiling, NAD HEENT: OC/OP edentulous. pink and dry NECK: Supple, no JVD, no LN LUNGS: Clear HEART: S1S2, no gallop, no murmur ABD: Obese, hypoactive BS, NT light palpation. Incision well-approx. No redness or drainage. EXT: BLE trace edema. No cyanosis KILN BURNER: Alert, 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. + tremor SKIN: No rash LUE-PICC. clean Labs Lab Laboratory Tests Test 10/18/16 13:15 10/19/16 06:30 10/19/16 06:45 Sodium Level 142mmol/L (136-145) 139mmol/L (136-145) Potassium Level 4.2mmol/L (3.5-5.1) 4.3mmol/L (3.5-5.1) Chloride Level 108mmol/L (98-107) 108mmol/L (98-107) Carbon Dioxide Level 26mmol/L (21-32) 24mmol/L (21-32) Anion Gap 8 (6-14) 7 (6-14) Blood Urea Nitrogen 21mg/dL (8-26) 20mg/dL (8-26) Creatinine 1.3mg/dL (0.7-1.3) 1.5mg/dL (0.7-1.3) Estimated GFR (Cockcroft-Gault) 52.5 44.5 Glucose Level 131mg/dL (70-99) 126mg/dL (70-99) Calcium Level 8.0mg/dL (8.5-10.1) 8.3mg/dL (8.5-10.1) Phosphorus Level 2.8mg/dL (2.6-4.7) Magnesium Level 2.2mg/dL (1.8-2.4) 2.3mg/dL (1.8-2.4) White Blood Count 9.0x10^3/uL (4.0-11.0) Red Blood Count 2.40x10^6/uL (4.30-5.70) Hemoglobin 7.8g/dL (13.0-17.5) Hematocrit 24.1% (39.0-53.0) Mean Corpuscular Volume 101fL (79-100) Mean Corpuscular Hemoglobin 32pg (25-35) Mean Corpuscular Hemoglobin Concent 32g/dL (31-37) Red Cell Distribution Width 15.8% (11.5-14.5) Platelet Count 241x10^3/uL (140-400) Neutrophils (%) (Auto) 68% (31-73) Lymphocytes (%) (Auto) 19% (24-48) Monocytes (%) (Auto) 9% (0-9) Eosinophils (%) (Auto) 3% (0-3) Basophils (%) (Auto) 1% (0-3) Neutrophils # (Auto) 6.2x10^3uL (1.8-7.7) Lymphocytes # (Auto) 1.7x10^3/uL (1.0-4.8) Monocytes # (Auto) 0.8x10^3/uL (0.0-1.1) Eosinophils # (Auto) 0.3x10^3/uL (0.0-0.7) Basophils # (Auto) 0.1x10^3/uL (0.0-0.2) Objective Assessment Fever. Resolved Leucocytosis. Resolved Partial small bowel obstruction. s/p exp lap w/ CONG 10/13 N/V. better Dislodgement of NGT Hiatal hernia + MRSA Cipro allergy. Seizure disorder Parkinson's disease h/o UTI: Citrobacter & Klebsiella h/o E. coli bacteremia Plan Plan of Care D/c Zosyn. F/u response supportive care Attending Co-Sign Attending Co-Sign The patient was seen and interviewed as well as examined at the bedside. The chart was reviewed. The case was discussed. Agree with the plan of care. SUBLETTE,LATRICE C SHANK SKINNER Oct 19, 2016 11:38 SAMI MARTINEZ MD Oct 19, 2016 15:05
[2016-10-19] MEDS: TPN PER PHARMACY MC PRN (11:43)
--- NOTE | 2016-10-19 13:08 | PDOC ---
SURGICAL PROGRESS NOTE Subjective Pt reports flatus and denies N/V, but holding emesis basin with small amount of bilious fluid Vital Signs Vital Signs Date Time Temp Pulse Resp B/P Pulse Ox O2 Delivery O2 Flow Rate FiO2 10/19/16 11:00 97.6 86 18 162/67 94 Nasal Cannula 3.0 97.6 I&O Intake and Output 10/19/16 07:00 Intake Total 100 ml Output Total 300 ml Balance -200 ml Intake Oral 100 ml Gastric Drainage Total 300 ml # Voids 4 General: Cooperative, No acute distress Abdomen: Soft, No tenderness Labs Laboratory Tests Test 10/18/16 13:15 10/19/16 06:30 10/19/16 06:45 Sodium Level 142mmol/L (136-145) 139mmol/L (136-145) Potassium Level 4.2mmol/L (3.5-5.1) 4.3mmol/L (3.5-5.1) Chloride Level 108mmol/L (98-107) 108mmol/L (98-107) Carbon Dioxide Level 26mmol/L (21-32) 24mmol/L (21-32) Anion Gap 8 (6-14) 7 (6-14) Blood Urea Nitrogen 21mg/dL (8-26) 20mg/dL (8-26) Creatinine 1.3mg/dL (0.7-1.3) 1.5mg/dL (0.7-1.3) Estimated GFR (Cockcroft-Gault) 52.5 44.5 Glucose Level 131mg/dL (70-99) 126mg/dL (70-99) Calcium Level 8.0mg/dL (8.5-10.1) 8.3mg/dL (8.5-10.1) Phosphorus Level 2.8mg/dL (2.6-4.7) Magnesium Level 2.2mg/dL (1.8-2.4) 2.3mg/dL (1.8-2.4) White Blood Count 9.0x10^3/uL (4.0-11.0) Red Blood Count 2.40x10^6/uL (4.30-5.70) Hemoglobin 7.8g/dL (13.0-17.5) Hematocrit 24.1% (39.0-53.0) Mean Corpuscular Volume 101fL (79-100) Mean Corpuscular Hemoglobin 32pg (25-35) Mean Corpuscular Hemoglobin Concent 32g/dL (31-37) Red Cell Distribution Width 15.8% (11.5-14.5) Platelet Count 241x10^3/uL (140-400) Neutrophils (%) (Auto) 68% (31-73) Lymphocytes (%) (Auto) 19% (24-48) Monocytes (%) (Auto) 9% (0-9) Eosinophils (%) (Auto) 3% (0-3) Basophils (%) (Auto) 1% (0-3) Neutrophils # (Auto) 6.2x10^3uL (1.8-7.7) Lymphocytes # (Auto) 1.7x10^3/uL (1.0-4.8) Monocytes # (Auto) 0.8x10^3/uL (0.0-1.1) Eosinophils # (Auto) 0.3x10^3/uL (0.0-0.7) Basophils # (Auto) 0.1x10^3/uL (0.0-0.2) Laboratory Tests Test 10/18/16 13:15 10/19/16 06:30 10/19/16 06:45 Sodium Level 142mmol/L (136-145) 139mmol/L (136-145) Potassium Level 4.2mmol/L (3.5-5.1) 4.3mmol/L (3.5-5.1) Chloride Level 108mmol/L (98-107) 108mmol/L (98-107) Carbon Dioxide Level 26mmol/L (21-32) 24mmol/L (21-32) Anion Gap 8 (6-14) 7 (6-14) Blood Urea Nitrogen 21mg/dL (8-26) 20mg/dL (8-26) Creatinine 1.3mg/dL (0.7-1.3) 1.5mg/dL (0.7-1.3) Estimated GFR (Cockcroft-Gault) 52.5 44.5 Glucose Level 131mg/dL (70-99) 126mg/dL (70-99) Calcium Level 8.0mg/dL (8.5-10.1) 8.3mg/dL (8.5-10.1) Phosphorus Level 2.8mg/dL (2.6-4.7) Magnesium Level 2.2mg/dL (1.8-2.4) 2.3mg/dL (1.8-2.4) White Blood Count 9.0x10^3/uL (4.0-11.0) Red Blood Count 2.40x10^6/uL (4.30-5.70) Hemoglobin 7.8g/dL (13.0-17.5) Hematocrit 24.1% (39.0-53.0) Mean Corpuscular Volume 101fL (79-100) Mean Corpuscular Hemoglobin 32pg (25-35) Mean Corpuscular Hemoglobin Concent 32g/dL (31-37) Red Cell Distribution Width 15.8% (11.5-14.5) Platelet Count 241x10^3/uL (140-400) Neutrophils (%) (Auto) 68% (31-73) Lymphocytes (%) (Auto) 19% (24-48) Monocytes (%) (Auto) 9% (0-9) Eosinophils (%) (Auto) 3% (0-3) Basophils (%) (Auto) 1% (0-3) Neutrophils # (Auto) 6.2x10^3uL (1.8-7.7) Lymphocytes # (Auto) 1.7x10^3/uL (1.0-4.8) Monocytes # (Auto) 0.8x10^3/uL (0.0-1.1) Eosinophils # (Auto) 0.3x10^3/uL (0.0-0.7) Basophils # (Auto) 0.1x10^3/uL (0.0-0.2) Problem List Problems Medical Problems: (1) SBO (small bowel obstruction) Status: Acute Assessment/Plan s/p xlap slow progress await bowel improvement Problems: LINA HARP MD Oct 19, 2016 13:07
[2016-10-19 15:00] VITALS: BP 149/72
[2016-10-19 19:00] VITALS: BP 153/88
[2016-10-19] MEDS ORDERED: DEXTROSE 70% IV SCH ×11 (22:00)
[2016-10-19] MEDS ORDERED: AMINO ACIDS IV SCH ×11 (22:00)
[2016-10-19] MEDS ORDERED: [UNRECOGNIZED DRUG - OTHER] IV SCH ×11 (22:00)
[2016-10-19] MEDS ORDERED: TOTAL PARENTERAL NUTRITION IV SCH ×11 (22:00)
[2016-10-19 23:17] VITALS: BP 141/66
[2016-10-20 03:37] VITALS: BP 152/64
[2016-10-20] MEDS: MORPHINE SULFATE 4 MG/ML DISP.SYRIN. IV PRN ×5 (03:51→22:05)
[2016-10-20 06:47] LABS: BASO # 0.1 x10^3/uL (0.0-0.2); BASO % 1 % (0-3); EOS % 3 % (0-3); HEMATOCRIT 24.8 % (39.0-53.0); HEMOGLOBIN 7.9 g/dL (13.0-17.5); LYMPH # 1.6 x10^3/uL (1.0-4.8); LYMPH % 20 % (24-48); MEAN CORPUSCULAR HEMOGLOBIN 32 pg (25-35); MEAN CORPUSCULAR HGB CONC 32 g/dL (31-37); MEAN CORPUSCULAR VOLUME 100 fL (79-100); MONO % 9 % (0-9); NEUT % 68 % (31-73); PLATELET COUNT 250 x10^3/uL (140-400); RED BLOOD COUNT 2.47 x10^6/uL (4.30-5.70); RED CELL DISTRIBUTION WIDTH 15.5 % (11.5-14.5); WHITE BLOOD COUNT 8.1 x10^3/uL (4.0-11.0)
[2016-10-20 07:00] VITALS: BP 157/67
[2016-10-20 07:07] LABS: ALBUMIN 1.9 g/dL (3.4-5.0); ALBUMIN/GLOBULIN RATIO 0.4 (1.0-1.7); CALCIUM 8.6 mg/dL (8.5-10.1); CREATININE 1.7 mg/dL (0.7-1.3); GFR 38.5; MAGNESIUM 2.2 mg/dL (1.8-2.4); PHOSPHORUS 3.2 mg/dL (2.6-4.7); POTASSIUM 4.3 mmol/L (3.5-5.1); TOTAL BILIRUBIN 0.5 mg/dL (0.2-1.0); TOTAL PROTEIN 6.4 g/dL (6.4-8.2)
[2016-10-20] MEDS: LEVETIRACETAM 500 MG in IV NORMAL SALINE 100ML 100 ML IV SCH ×2 (08:46→22:24)
[2016-10-20] MEDS: ENOXAPARIN 40 MG/0.4 ML DISP.SYRIN. SQ SCH (08:46)
--- NOTE | 2016-10-20 08:59 | PDOC ---
PROGRESS NOTES Subjective Subjective says he vomited earlier. denies BM but admits to flatus. lab reviewed. Objective Objective Vital Signs Date Time Temp Pulse Resp B/P Pulse Ox O2 Delivery O2 Flow Rate FiO2 10/20/16 08:47 93 Nasal Cannula 2.0 10/20/16 03:37 97.5 91 16 152/64 97.5 Intake and Output 10/20/16 07:00 Intake Total 481 ml Balance 481 ml Intake Oral 0 ml IV Total 481 ml # Voids 3 Physical Exam Abdomen: Soft, Other (distended and obese. decreased bowel sounds) Heart: Regular rate, Normal S1, Normal S2 Extremities: Other (1 plus edema in legs) General: Alert Lungs: Clear to auscultation Neuro: Normal speech Psych/Mental Status: Mood NL Skin: No rashes Assessment Assessment Problems Medical Problems:Small-bowel obstruction resolved exploratory laparotomy 10/13/16. lysis of adhesions. bowel viable. post op ileus 2. Seizure disorder. 3. Parkinson's disease. 4. Hypothyroidism. 5. Peripheral neuropathy. 6. Hypertension. bp high 7. Chronic kidney disease stage III. klebsiella uti treated suspected gout synovitis resolved peripheral edema critical illness myopathy hematemesis resolved LUE edematous. venous doppler LUE negative (1) SBO (small bowel obstruction) Status: Acute Plan Plan of Care acute abdominal series TPN start iv fluids iv zofran prn iv protonix iv zosyn iv keppra PT and OT Comment Review of Relevant I have reviewed the following items [place] (where applicable) has been applied. Labs Laboratory Tests Test 10/18/16 13:15 10/19/16 06:30 10/19/16 06:45 10/20/16 06:35 Sodium Level 142mmol/L (136-145) 139mmol/L (136-145) 141mmol/L (136-145) Potassium Level 4.2mmol/L (3.5-5.1) 4.3mmol/L (3.5-5.1) 4.3mmol/L (3.5-5.1) Chloride Level 108mmol/L (98-107) 108mmol/L (98-107) 109mmol/L (98-107) Carbon Dioxide Level 26mmol/L (21-32) 24mmol/L (21-32) 25mmol/L (21-32) Anion Gap 8 (6-14) 7 (6-14) 7 (6-14) Blood Urea Nitrogen 21mg/dL (8-26) 20mg/dL (8-26) 21mg/dL (8-26) Creatinine 1.3mg/dL (0.7-1.3) 1.5mg/dL (0.7-1.3) 1.7mg/dL (0.7-1.3) Estimated GFR (Cockcroft-Gault) 52.5 44.5 38.5 Glucose Level 131mg/dL (70-99) 126mg/dL (70-99) 128mg/dL (70-99) Calcium Level 8.0mg/dL (8.5-10.1) 8.3mg/dL (8.5-10.1) 8.6mg/dL (8.5-10.1) Phosphorus Level 2.8mg/dL (2.6-4.7) 3.2mg/dL (2.6-4.7) Magnesium Level 2.2mg/dL (1.8-2.4) 2.3mg/dL (1.8-2.4) 2.2mg/dL (1.8-2.4) White Blood Count 9.0x10^3/uL (4.0-11.0) 8.1x10^3/uL (4.0-11.0) Red Blood Count 2.40x10^6/uL (4.30-5.70) 2.47x10^6/uL (4.30-5.70) Hemoglobin 7.8g/dL (13.0-17.5) 7.9g/dL (13.0-17.5) Hematocrit 24.1% (39.0-53.0) 24.8% (39.0-53.0) Mean Corpuscular Volume 101fL (79-100) 100fL (79-100) Mean Corpuscular Hemoglobin 32pg (25-35) 32pg (25-35) Mean Corpuscular Hemoglobin Concent 32g/dL (31-37) 32g/dL (31-37) Red Cell Distribution Width 15.8% (11.5-14.5) 15.5% (11.5-14.5) Platelet Count 241x10^3/uL (140-400) 250x10^3/uL (140-400) Neutrophils (%) (Auto) 68% (31-73) 68% (31-73) Lymphocytes (%) (Auto) 19% (24-48) 20% (24-48) Monocytes (%) (Auto) 9% (0-9) 9% (0-9) Eosinophils (%) (Auto) 3% (0-3) 3% (0-3) Basophils (%) (Auto) 1% (0-3) 1% (0-3) Neutrophils # (Auto) 6.2x10^3uL (1.8-7.7) 5.4x10^3uL (1.8-7.7) Lymphocytes # (Auto) 1.7x10^3/uL (1.0-4.8) 1.6x10^3/uL (1.0-4.8) Monocytes # (Auto) 0.8x10^3/uL (0.0-1.1) 0.7x10^3/uL (0.0-1.1) Eosinophils # (Auto) 0.3x10^3/uL (0.0-0.7) 0.2x10^3/uL (0.0-0.7) Basophils # (Auto) 0.1x10^3/uL (0.0-0.2) 0.1x10^3/uL (0.0-0.2) BUN/Creatinine Ratio 12 (6-20) Total Bilirubin 0.5mg/dL (0.2-1.0) Aspartate Amino Transf (AST/SGOT) 59U/L (15-37) Alanine Aminotransferase (ALT/SGPT) 53U/L (16-63) Alkaline Phosphatase 88U/L (46-116) Total Protein 6.4g/dL (6.4-8.2) Albumin 1.9g/dL (3.4-5.0) Albumin/Globulin Ratio 0.4 (1.0-1.7) Laboratory Tests Test 10/20/16 06:35 White Blood Count 8.1x10^3/uL (4.0-11.0) Red Blood Count 2.47x10^6/uL (4.30-5.70) Hemoglobin 7.9g/dL (13.0-17.5) Hematocrit 24.8% (39.0-53.0) Mean Corpuscular Volume 100fL (79-100) Mean Corpuscular Hemoglobin 32pg (25-35) Mean Corpuscular Hemoglobin Concent 32g/dL (31-37) Red Cell Distribution Width 15.5% (11.5-14.5) Platelet Count 250x10^3/uL (140-400) Neutrophils (%) (Auto) 68% (31-73) Lymphocytes (%) (Auto) 20% (24-48) Monocytes (%) (Auto) 9% (0-9) Eosinophils (%) (Auto) 3% (0-3) Basophils (%) (Auto) 1% (0-3) Neutrophils # (Auto) 5.4x10^3uL (1.8-7.7) Lymphocytes # (Auto) 1.6x10^3/uL (1.0-4.8) Monocytes # (Auto) 0.7x10^3/uL (0.0-1.1) Eosinophils # (Auto) 0.2x10^3/uL (0.0-0.7) Basophils # (Auto) 0.1x10^3/uL (0.0-0.2) Sodium Level 141mmol/L (136-145) Potassium Level 4.3mmol/L (3.5-5.1) Chloride Level 109mmol/L (98-107) Carbon Dioxide Level 25mmol/L (21-32) Anion Gap 7 (6-14) Blood Urea Nitrogen 21mg/dL (8-26) Creatinine 1.7mg/dL (0.7-1.3) Estimated GFR (Cockcroft-Gault) 38.5 BUN/Creatinine Ratio 12 (6-20) Glucose Level 128mg/dL (70-99) Calcium Level 8.6mg/dL (8.5-10.1) Phosphorus Level 3.2mg/dL (2.6-4.7) Magnesium Level 2.2mg/dL (1.8-2.4) Total Bilirubin 0.5mg/dL (0.2-1.0) Aspartate Amino Transf (AST/SGOT) 59U/L (15-37) Alanine Aminotransferase (ALT/SGPT) 53U/L (16-63) Alkaline Phosphatase 88U/L (46-116) Total Protein 6.4g/dL (6.4-8.2) Albumin 1.9g/dL (3.4-5.0) Albumin/Globulin Ratio 0.4 (1.0-1.7) Microbiology 10/13/16 Blood Culture - Final, Complete NO GROWTH AFTER 5 DAYS 10/13/16 Urine Culture - Final, Complete 10/13/16 Urine Culture Result 1 (MANDEEP) - Final, Complete Medications Current Medications Fentanyl Citrate 50 mcg 50 mcg PRN Q15MIN PRN IV PAIN GREATER THAN 3/10 Last administered on 09/30/16at 19:35; Start 09/30/16 at 17:30; Stop 10/01/16 at 04 :24; Status DC Lactated Ringer's (Iv Lactated Ringers) 1,000 ml @ 100 mls/hr Q10H IV Last administered on 09/30/16at 19:35; Start 09/30/16 at 17:28; Stop 10/01/16 at 03 :27; Status DC Ondansetron HCl (Zofran) 4 mg 1X ONCE IV Last administered on 09/30/16at 17:44 ; Start 09/30/16 at 17:30; Stop 09/30/16 at 17:32; Status DC Fentanyl Citrate (Fentanyl 2ml Vial) 50 mcg 1X ONCE IV ; Start 09/30/16 at 19: 15; Stop 10/01/16 at 04:24; Status DC Ondansetron HCl (Zofran) 4 mg PRN Q8HRS PRN IV NAUSEA/VOMITING Last administered on 09/30/16at 22:07; Start 09/30/16 at 19:15; Stop 10/01/16 at 19 :14; Status DC Fentanyl Citrate 50 mcg 50 mcg PRN Q2HR PRN IV PAIN Last administered on at 16:54; Start 09/30/16 at 19:15; Stop 10/01/16 at 19:14; Status DC Sodium Chloride 1,000 ml @ 100 mls/hr Q10H IV ; Start 09/30/16 at 19:30; Stop 10/01/16 at 04:24; Status DC Potassium Chloride/Dextrose/ Sod Cl (KCl 20 Meq In D5W-1/2 NS) 1,000 ml @ 125 mls/hr Q8H IV Last administered on 10/04/16at 06:02; Start 09/30/16 at 20:00; Stop 10/04/16 at 10:21; Status DC Enoxaparin Sodium 40 mg 40 mg Q24H SQ Last administered on 10/13/16 08:14; Start 10/01/16 at 09:00; Stop 10/13/16 at 08:36; Status DC Levetiracetam/ Sodium Chloride (Keppra/Iv Sodium Chloride 0.9% 100ml) 105 ml @ 400 mls/hr Q12HR IV Last administered on 10/05/16 09:30; Start 09/30/16 at 21: 00; Stop 10/05/16 at 10:24; Status DC Morphine Sulfate 2 mg PRN Q4HRS PRN IV SEVERE PAIN Last administered on 10:13; Start 09/30/16 at 19:30; Stop 10/05/16 at 10:24; Status DC Acetaminophen (Tylenol) 650 mg PRN Q6HRS PRN NM MILD PAIN / TEMP; Start at 19:30; Stop 10/05/16 at 10:24; Status DC Ondansetron HCl (Zofran) 4 mg PRN Q6HRS PRN IV NAUSEA/VOMITING Last administered on 10/07/16 08:28; Start 09/30/16 at 19:30; Stop 10/09/16 at 12:08 ; Status DC Benzocaine (Hurricaine One) 1 spray STK-MED ONCE .ROUTE ; Start 09/30/16 at 19: 51; Stop 09/30/16 at 19:52; Status DC Morphine Sulfate 4 mg PRN Q4HRS PRN IV PAIN Last administered on 10/05/16 08:08 ; Start 10/01/16 at 20:00; Stop 10/05/16 at 10:24; Status DC Clonidine HCl 1 patch 1 patch WEEKLY TD Last administered on 10/03/16at 12:30; Start 10/03/16 at 10:00; Stop 10/05/16 at 10:24; Status DC Piperacillin Sod/ Tazobactam Sod/ Sodium Chloride (Zosyn/Iv Sodium Chloride 0.9 % 50ml) 50 ml @ 100 mls/hr Q6HRS IV Last administered on 10/09/16 06:26; Start 10/04/16 at 11:00; Stop 10/09/16 at 10:55; Status DC Vancomycin HCl 1 each 1 each PRN DAILY PRN MC SEE COMMENTS Last administered on 10/07/16 11:11; Start 10/04/16 at 10:15; Stop 10/07/16 at 11:28; Status DC Vancomycin HCl/ Sodium Chloride (Iv Sodium Chloride 0.9% 250ml) 250 ml @ 250 mls/hr Q24H IV ; Start 10/04/16 at 10:15; Status UNV Labetalol HCl (Normodyne) 20 mg PRN Q6HRS PRN IVP HYPERTENSION, SEE COMMENTS; Start 10/04/16 at 10:15; Stop 10/05/16 at 10:24; Status DC Hydralazine HCl 10 mg 10 mg PRN Q6HRS PRN IVP ELEVATED BP, SEE COMMENTS Last administered on 10/06/16 19:17; Start 10/04/16 at 10:15; Stop 10/12/16 at 10:40 ; Status DC Amino Acids/ Glycerin/ Electrolytes 1,000 ml @ 40 mls/hr Q24H IV Last administered on 10/06/16 09:59; Start 10/04/16 at 10:15; Stop 10/07/16 at 09:06 ; Status DC Vancomycin HCl 2 gm/Sodium Chloride 500 ml @ 250 mls/hr 1X ONCE IV Last administered on 10/04/16at 11:26; Start 10/04/16 at 10:45; Stop 10/04/16 at 12 :44; Status DC Vancomycin HCl/ Sodium Chloride (Iv Sodium Chloride 0.9% 500ml Bag) 500 ml @ 250 mls/hr Q24H IV Last administered on 10/06/16 11:47; Start 10/05/16 at 12:00 ; Stop 10/07/16 at 11:28; Status DC Vancomycin HCl 1 each 1X ONCE MC Last administered on 10/06/16 11:30; Start at 11:30; Stop 10/06/16 at 11:31; Status DC Aspirin (Children'S Aspirin) 81 mg [id number] PO Last administered on 10/13/16 08:15; Start 10/05/16 at 11:00; Stop 10/13/16 at 08:29; Status DC Gabapentin (Neurontin) 600 mg QID PO Last administered on 10/13/16 08:14; Start 10/05/16 at 13:00; Stop 10/14/16 at 08:47; Status DC Levetiracetam (Keppra) 250 mg BID PO Last administered on 10/13/16 08:17; Start 10/05/16 at 11:00; Stop 10/14/16 at 08:47; Status DC Levothyroxine Sodium (Synthroid) 100 mcg [id number] PO Last administered on 05:08; Start 10/05/16 at 10:30; Stop 10/14/16 at 08:48; Status DC Metoprolol Succinate (Toprol Xl) 25 mg DAILY PO Last administered on 10/13/16 08:16; Start 10/05/16 at 11:00; Stop 10/14/16 at 08:47; Status DC Pramipexole Dihydrochloride (miraPEX) 0.5 mg [id number] PO Last administered on 10/13 08:15; Start 10/05/16 at 11:00; Stop 10/14/16 at 08:48; Status DC Simvastatin (Zocor) 20 mg HS PO Last administered on 10/12/16 21:07; Start 10/05 at 21:00; Stop 10/14/16 at 08:48; Status DC Carbidopa/Levodopa (Sinemet Cr) 1 tab.sa TID PO Last administered on 10/13/16 08:16; Start 10/05/16 at 11:00; Stop 10/14/16 at 08:48; Status DC Tamsulosin HCl (Flomax) 0.4 mg QHS PO Last administered on 10/12/16 21:07; Start 10/05/16 at 21:00; Stop 10/14/16 at 08:48; Status DC Tramadol HCl (Ultram) 50 mg QID PO Last administered on 10/13/16 08:17; Start 10/05/16 at 13:00; Stop 10/14/16 at 08:48; Status DC Acetaminophen (Tylenol) 650 mg PRN Q4HRS PRN PO MILD PAIN / TEMP Last administered on 10/13/16 00:17; Start 10/05/16 at 10:15; Stop 10/14/16 at 08:48; Status DC Prednisone (Prednisone) 20 mg 1X ONCE PO Last administered on 10/06/16 11:01; Start 10/06/16 at 10:30; Stop 10/06/16 at 10:31; Status DC Prednisone (Prednisone) 10 mg [id number] PO Last administered on 10/13/16 08:15; Start 10/07/16 at 08:00; Stop 10/13/16 at 08:29; Status DC Al Hydroxide/Mg Hydroxide (Mylanta Plus Xs) 30 ml PRN Q4HRS PRN PO HEARTBURN / GAS Last administered on 10/12/16 21:07; Start 10/07/16 at 08:45; Stop 10/14/16 at 08:48; Status DC Pantoprazole Sodium (Protonix) 40 mg DAILYAC PO Last administered on 10/13/16 05:08; Start 10/07/16 at 10:00; Stop 10/13/16 at 06:45; Status DC Furosemide 40 mg 40 mg DAILY PO Last administered on 10/08/16 08:42; Start 10/07 at 10:00; Stop 10/08/16 at 08:56; Status DC Sodium Chloride (Iv Sodium Chloride 0.45%) 1,000 ml @ 60 mls/hr CONT PRN IV . ; Start 10/08/16 at 09:00; Stop 10/08/16 at 16:06; Status DC Bisacodyl 10 mg 10 mg 1X ONCE NM Last administered on 10/08/16 10:11; Start at 09:30; Stop 10/08/16 at 09:31; Status DC Sodium Chloride (Iv Sodium Chloride 0.45%) 1,000 ml @ 60 mls/hr [id number] IV Last administered on 10/09/16 02:52; Start 10/08/16 at 10:15; Stop 10/09/16 at 12: 00; Status DC Cefpodoxime Proxetil (Vantin) 200 mg BID PO ; Start 10/09/16 at 11:00; Stop at 12:08; Status DC Cefpodoxime Proxetil (Vantin) 100 mg BID PO Last administered on 10/13/16 08:16 ; Start 10/09/16 at 21:00; Stop 10/13/16 at 08:29; Status DC Ondansetron HCl (Zofran) 4 mg STK-MED ONCE .ROUTE Last administered on 01:24; Start 10/13/16 at 01:19; Stop 10/13/16 at 01:20; Status DC Ondansetron HCl (Zofran) 4 mg PRN Q6HRS PRN IV NAUSEA/VOMITING Last administered on 10/19/16 08:29; Start 10/13/16 at 02:00 Pantoprazole Sodium 40 mg 40 mg DAILYAC IVP Last administered on 10/19/16 08: 30; Start 10/13/16 at 07:30 Dextrose/Sodium Chloride (Iv D5% - NS) 1,000 ml @ 60 mls/hr [id number] IV Last administered on 10/13/16 09:25; Start 10/13/16 at 08:30; Stop 10/13/16 at 11:01; Status DC Sodium Polystyrene Sulfonate 15 gm 15 gm 1X ONCE PO Last administered on 09:26; Start 10/13/16 at 08:30; Stop 10/13/16 at 08:31; Status DC Piperacillin Sod/ Tazobactam Sod 3.375 gm/Sodium Chloride 50 ml @ 100 mls/hr Q6HRS IV Last administered on 10/19/16 12:42; Start 10/13/16 at 09:00; Stop at 15:06; Status DC Dextrose/Sodium Chloride (Iv D5% - 1/2 NS) 1,000 ml @ 50 mls/hr Q20H IV Last administered on 10/17/16 00:16; Start 10/13/16 at 11:00; Stop 10/17/16 at 12:23 ; Status DC Ondansetron HCl (Zofran) 4 mg PRN Q6HRS PRN IV Nausea 1ST CHOICE; Start at 12:30; Stop 10/14/16 at 11:07; Status DC Fentanyl Citrate (Fentanyl 2ml Vial) 25 mcg PRN Q5MIN PRN IV MILD PAIN; Start 10/13/16 at 12:30; Stop 10/14/16 at 11:04; Status DC Fentanyl Citrate (Fentanyl 2ml Vial) 50 mcg PRN Q5MIN PRN IV MODERATE PAIN; Start 10/13/16 at 12:30; Stop 10/14/16 at 11:04; Status DC Morphine Sulfate 1 mg 1 mg PRN Q10MIN PRN IV SEVERE PAIN; Start 10/13/16 at 12: 30; Stop 10/14/16 at 11:00; Status DC Lactated Ringer's (Iv Lactated Ringers) 1,000 ml @ 0 mls/hr Q0M IV ; Start 10/13 at 12:17; Stop 10/14/16 at 00:16; Status DC Lidocaine HCl 2 ml 1X PRN PRN ID IV START; Start 10/13/16 at 12:30; Stop at 16:03; Status DC Hydromorphone HCl (Dilaudid) 0.5 mg PRN Q10MIN PRN IV SEV PAIN,Second choice; Start 10/13/16 at 12:30; Stop 10/14/16 at 11:04; Status DC Prochlorperazine Edisylate (Compazine) 5 mg PACU PRN PRN IV NAUSEA; Start at 12:30; Stop 10/14/16 at 11:00; Status DC Fentanyl Citrate (Fentanyl 2ml Vial) 50 mcg PRN Q5MIN PRN IV Acute Pain Last administered on 10/14/16t 10:04; Start 10/13/16 at 13:00; Stop 10/14/16 at 11:04 ; Status DC Morphine Sulfate 4 mg PRN Q10MIN PRN IV Moderate Pain; Start 10/13/16 at 13:00; Stop 10/14/16 at 11:00; Status DC Hydromorphone HCl (Dilaudid) 0.4 mg PRN Q10MIN PRN IV Moderate to severe pain; Start 10/13/16 at 13:00; Stop 10/14/16 at 11:04; Status DC Meperidine HCl (Demerol) 12.5 mg PRN Q5MIN PRN IV SHIVERING; Start 10/13/16 at 13:00; Stop 10/14/16 at 11:00; Status DC Prochlorperazine Edisylate (Compazine) 5 mg PRN Q6HRS PRN IV Nausea/Vomiting, 1st Choice; Start 10/13/16 at 13:00; Stop 10/14/16 at 11:00; Status DC Diphenhydramine HCl (Benadryl) 12.5 mg PRN Q2HR PRN IV ITCHING; Start 10/13/16 at 13:00; Stop 10/14/16 at 11:00; Status DC Midazolam HCl (Versed) 2 mg PRN 1X PRN IV PRIOR TO PROCEDURE; Start 10/13/16 at 13:00; Stop 10/14/16 at 11:07; Status DC Midazolam HCl (Versed) 1 mg PRN 1X PRN IV PRIOR TO PROCEDURE; Start 10/13/16 at 13:00; Stop 10/14/16 at 11:07; Status DC Fentanyl Citrate (Fentanyl 2ml Vial) 25 mcg PRN Q5MIN PRN IV X 2 DOSES FOR PAIN ; Start 10/13/16 at 13:00; Stop 10/14/16 at 11:04; Status DC Fentanyl Citrate 50 mcg 50 mcg PRN Q5MIN PRN IV X 2 DOSES FOR PAIN; Start at 13:00; Stop 10/14/16 at 11:04; Status DC Lactated Ringer's (Iv Lactated Ringers) 1,000 ml @ 125 mls/hr Q8H IV Last administered on 10/13/16t 13:30; Start 10/13/16 at 12:48; Stop 10/14/16 at 00:47; Status DC Lidocaine HCl 2 ml 1X PRN PRN ID IV START; Start 10/13/16 at 13:00; Stop at 16:03; Status DC Fentanyl Citrate (Fentanyl 2ml Vial) 25 mcg PRN Q2HR PRN IV PAIN MOD TO SEV; Start 10/13/16 at 20:30; Stop 10/14/16 at 14:15; Status DC Fentanyl Citrate (Fentanyl 2ml Vial) 50 mcg PRN Q2HR PRN IV PAIN MOD TO SEV Last administered on 10/14/16t 12:02; Start 10/13/16 at 20:30; Stop 10/14/16 at 14:15; Status DC Enoxaparin Sodium (Lovenox 40mg Syringe) 40 mg Q24H SQ Last administered on t 08:46; Start 10/14/16 at 09:00 Fentanyl Citrate 100 mcg 100 mcg STK-MED ONCE .ROUTE ; Start 10/13/16 at 13:27; Stop 10/14/16 at 07:31; Status DC Propofol (Diprivan) 20 ml @ As Directed STK-MED ONCE IV ; Start 10/13/16 at 13:27 ; Stop 10/14/16 at 07:31; Status DC Rocuronium [place] (Zemuron) 50 mg STK-MED ONCE .ROUTE ; Start 10/13/16 at 13:27 ; Stop 10/14/16 at 07:31; Status DC Lidocaine HCl 100 mg STK-MED ONCE .ROUTE ; Start 10/13/16 at 13:27; Stop at 07:31; Status DC Fentanyl Citrate (Fentanyl 2ml Vial) 100 mcg STK-MED ONCE .ROUTE ; Start at 13:27; Stop 10/14/16 at 07:31; Status DC Ephedrine Sulfate (Akovaz) 50 mg STK-MED ONCE .ROUTE ; Start 10/13/16 at 14:00; Stop 10/14/16 at 07:31; Status DC Phenylephrine HCl 1 mg STK-MED ONCE IV ; Start 10/13/16 at 14:25; Stop 10/14/16 at 07:31; Status DC Desflurane (Suprane) 60 ml STK-MED ONCE IH ; Start 10/13/16 at 14:25; Stop at 07:31; Status DC Dexamethasone Sodium Phosphate (Decadron) 20 mg STK-MED ONCE .ROUTE ; Start 10/13 at 14:25; Stop 10/14/16 at 07:31; Status DC Ondansetron HCl (Zofran) 4 mg STK-MED ONCE .ROUTE ; Start 10/13/16 at 14:25; Stop 10/14/16 at 07:31; Status DC Famotidine (Pepcid) 20 mg STK-MED ONCE .ROUTE ; Start 10/13/16 at 14:25; Stop 07/21 at 07:31; Status DC Rocuronium [place] (Zemuron) 50 mg STK-MED ONCE .ROUTE ; Start 10/13/16 at 16:19 ; Stop 10/14/16 at 07:31; Status DC Fentanyl Citrate (Fentanyl 2ml Vial) 100 mcg STK-MED ONCE .ROUTE ; Start at 16:21; Stop 10/14/16 at 07:31; Status DC Desflurane (Suprane) 90 ml STK-MED ONCE IH ; Start 10/13/16 at 16:53; Stop at 07:31; Status DC Glycopyrrolate (Robinul) 1 mg STK-MED ONCE .ROUTE ; Start 10/13/16 at 17:00; Stop 10/14/16 at 07:31; Status DC Neostigmine Methylsulfate 5 mg STK-MED ONCE .ROUTE ; Start 10/13/16 at 17:00; Stop 10/14/16 at 07:31; Status DC Phenylephrine HCl 1 mg STK-MED ONCE IV ; Start 10/13/16 at 18:14; Stop 10/14/16 at 07:31; Status DC Fentanyl Citrate (Fentanyl 2ml Vial) 100 mcg STK-MED ONCE .ROUTE ; Start at 18:20; Stop 10/14/16 at 07:31; Status DC Fentanyl Citrate 100 mcg 100 mcg STK-MED ONCE .ROUTE ; Start 10/13/16 at 19:17; Stop 10/14/16 at 07:31; Status DC Levetiracetam 500 mg/Sodium Chloride 105 ml @ 400 mls/hr Q12HR IV Last administered on 10/20/16 08:46; Start 10/14/16 at 09:00 Amino Acids/ Glycerin/ Electrolytes (Procalamine) 1,000 ml @ 80 mls/hr [id number] IV Last administered on 10/16/16 09:16; Start 10/14/16 at 11:15; Stop at 21:59; Status DC Morphine Sulfate 2 mg PRN Q4HRS PRN IV MODERATE PAIN Last administered on 20:22; Start 10/14/16 at 14:15 Morphine Sulfate 4 mg PRN Q4HRS PRN IV SEVERE PAIN Last administered on 08:47; Start 10/14/16 at 14:30 Info 1 each 1 each PRN DAILY PRN MC SEE COMMENTS Last administered on 11:43; Start 10/16/16 at 11:30 Sodium Chloride/ Potassium Chloride/ Potassium Phosphate/ Magnesium Sulfate/ Calcium Gluconate/ Multivitamins/ Minerals/Chromium/ Copper/Manganese/ Seleni/Zn /Total Parenteral Nutrition/Amino Acids/Dextrose/ Fat Emulsion Intravenous ( Sodium Chloride/ Potassium Phospha... 1,512 ml @ 63 mls/hr TPN CONT IV ; Start 10/16/16 at 22:00; Stop 10/17/16 at 12:50; Status DC Lidocaine/Sodium Bicarbonate 20 ml 20 ml STK-MED ONCE IJ ; Start 10/17/16 at 08: 20; Stop 10/17/16 at 08:21; Status DC Heparin Sodium/ Sodium Chloride 500 ml @ As Directed STK-MED ONCE .ROUTE ; Start 10/17/16 at 08:20; Stop 10/17/16 at 08:21; Status DC Lidocaine/Sodium Bicarbonate (Buffered Lidocaine 1%) 3 ml 1X ONCE IJ Last administered on 10/17/16 08:30; Start 10/17/16 at 08:30; Stop 10/17/16 at 08:31 ; Status DC Heparin Sodium/ Sodium Chloride 60 unit 1X ONCE IV Last administered on 08:30; Start 10/17/16 at 08:30; Stop 10/17/16 at 08:31; Status DC Iohexol (Omnipaque 300 Mg/ml) 50 ml STK-MED ONCE .ROUTE ; Start 10/17/16 at 09: 02; Stop 10/17/16 at 09:03; Status DC Iohexol (Omnipaque 300 Mg/ml) 43 ml 1X ONCE IART Last administered on 08:45; Start 10/17/16 at 09:30; Stop 10/17/16 at 09:33; Status DC Info (Do NOT chart on this entry -- for MONITORING) 1 each PRN DAILY PRN MC SEE COMMENTS; Start 10/17/16 at 09:45; Stop 10/19/16 at 09:44; Status DC Clonidine HCl (Catapres Tts-2) 1 patch WEEKLY TD Last administered on 11:58; Start 10/17/16 at 11:00 Labetalol HCl 20 mg 20 mg PRN Q6HRS PRN IVP HYPERTENSION, SEE COMMENTS; Start 10/17/16 at 10:30 Sodium Chloride 1,000 ml @ 60 mls/hr [id number] IV Last administered on 06:32; Start 10/17/16 at 12:30; Stop 10/19/16 at 10:06; Status DC Sodium Chloride 90 meq/Potassium Chloride 50 meq/ Potassium Phosphate 13.6 mmol/ Magnesium Sulfate 10 meq/ Calcium Gluconate 10 meq/ Multivitamins/ Minerals 10 ml/ Chromium/Copper/ Manganese/Seleni/ Zn 1 ml/Total Parenteral Nutrition/Amino Acids/Dextrose/ Fat Emulsion Intravenous 1,512 ml @ 63 mls/hr TPN CONT IV Last administered on 10/17/16 21:09; Start 10/17/16 at 22:00; Stop 10/18/16 at 21:59; Status DC Sodium Chloride/ Potassium Chloride/ Potassium Phosphate/ Magnesium Sulfate/ Calcium Gluconate/ Multivitamins/ Minerals/Chromium/ Copper/Manganese/ Seleni/Zn /Total Parenteral Nutrition/Amino Acids/Dextrose/ Fat Emulsion Intravenous ( Sodium Chloride/ Potassium Phospha... 1,512 ml @ 63 mls/hr TPN CONT IV Last administered on 10/18/16 21:24; Start 10/18/16 at 22:00; Stop 10/19/16 at 21:59 ; Status DC Furosemide 20 mg 20 mg 1X ONCE IVP Last administered on 10/19/16 11:01; Start 10/19/16 at 10:30; Stop 10/19/16 at 10:31; Status DC Sodium Chloride/ Sodium Acetate/ Potassium Chloride/ Potassium Phosphate/ Magnesium Sulfate/ Calcium Gluconate/ Multivitamins/ Minerals/Chromium/ Copper/ Manganese/ Seleni/Zn/Total Parenteral Nutrition/Amino Acids/Dextrose/ Fat Emulsion Intravenous (Sodium Chloride/ Potass... 1,920 ml @ 80 mls/hr TPN CONT IV Last administered on 10/19/16 22:29; Start 10/19/16 at 22:00; Stop at 21:59 Active Scripts Active Hydrocodone-Apap 5-325 (Hydrocodone Bit/Acetaminophen) 1 Each Tablet 1 Tab PO PRN Q6HRS PRN Metoprolol Succinate ( Xl ) (Metoprolol Succinate) 25 Mg Tab.er.24h 25 Mg PO DAILY Reported Flomax (Tamsulosin Hcl) 0.4 Mg Cap.er.24h 1 Cap PO QHS Tramadol Hcl 100 Mg Tab.er.24h 100 Mg PO QID Levetiracetam 250 Mg Tablet 250 Mg PO BID Dulcolax (Bisacodyl) 10 Mg Supp.rect 10 Mg RC PRN DAILY PRN Maalox Advanced Suspension (Mag Hydrox/Al Hydrox/Simeth) 770 Ml Oral.susp 30 Ml PO Q2HR PRN Milk Of Magnesia (Magnesium Hydroxide) 400 Mg/5 Ml Oral.susp 30 Ml PO DAILY PRN Robitussin Cough-Chest Dm Liq (Guaifenesin/Dextromethorphan) 118 Ml Liquid 10 Ml PO Q4HRS PRN Trazodone Hcl 50 Mg Tablet 1 Tab PO QHS Tylenol (Acetaminophen) 325 Mg Tablet 650 Mg PO Q6HRS PRN Pramipexole Dihydrochloride (Pramipexole Di-Hcl) 0.5 Mg Tablet 0.5 Mg PO TID Simvastatin 20 Mg Tablet 1 Tab PO QHS Levothyroxine Sodium 100 Mcg Tablet 1 Tab PO DAILY Gabapentin 800 Mg Tablet 800 Mg PO QID Sinemet 25-100 Mg Tablet (Carbidopa/Levodopa) 1 Each Tablet 2 Tab PO TID Aspirin 81 Mg Tab.chew 1 Tab PO DAILY Vitals/I & O Vital Sign - Last 24 Hours 10/19/16 10/19/16 10/19/16 10/19/16 10:00 11:00 13:52 15:00 Temp 97.6 98.4 97.6 98.4 Pulse 86 77 Resp 18 20 B/P 162/67 149/72 Pulse Ox 95 94 94 96 O2 Delivery Nasal Cannula Nasal Cannula Nasal Cannula Nasal Cannula O2 Flow Rate 3.0 3.0 2.0 3.0 10/19/16 10/19/16 10/19/16 10/19/16 17:49 18:15 19:00 20:00 Temp 97.9 97.9 Pulse 87 Resp 16 B/P 153/88 Pulse Ox 96 96 98 O2 Delivery Nasal Cannula Nasal Cannula Nasal Cannula Nasal Cannula O2 Flow Rate 2.0 2.0 3.0 3.0 10/19/16 10/20/16 10/20/16 23:17 03:37 08:47 Temp 98.8 97.5 98.8 97.5 Pulse 86 91 Resp 16 16 B/P 141/66 152/64 Pulse Ox 95 93 93 O2 Delivery Nasal Cannula Nasal Cannula Nasal Cannula O2 Flow Rate 3.0 3.0 2.0 Intake and Output 10/19/16 10/19/16 10/20/16 15:00 23:00 07:00 Intake Total 481 ml 0 ml 0 ml Balance 481 ml 0 ml 0 ml RICHARD [place] MD Oct 20, 2016 08:59
--- NOTE | 2016-10-20 09:02 | PDOC ---
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 10/20/16 0901: SURGICAL PROGRESS NOTE Subjective some flatus, denies nausea no stool yet still bloated Vital Signs Vital Signs Date Time Temp Pulse Resp B/P Pulse Ox O2 Delivery O2 Flow Rate FiO2 10/20/16 08:47 93 Nasal Cannula 2.0 10/20/16 03:37 97.5 91 16 152/64 97.5 I&O Intake and Output 10/20/16 07:00 Intake Total 481 ml Balance 481 ml Intake Oral 0 ml IV Total 481 ml # Voids 3 General: Alert, Oriented X3, Cooperative, No acute distress Abdomen: Soft, Other (distended, incision c/d/i, no erythema) Labs Laboratory Tests Test 10/18/16 13:15 10/19/16 06:30 10/19/16 06:45 10/20/16 06:35 Sodium Level 142mmol/L (136-145) 139mmol/L (136-145) 141mmol/L (136-145) Potassium Level 4.2mmol/L (3.5-5.1) 4.3mmol/L (3.5-5.1) 4.3mmol/L (3.5-5.1) Chloride Level 108mmol/L (98-107) 108mmol/L (98-107) 109mmol/L (98-107) Carbon Dioxide Level 26mmol/L (21-32) 24mmol/L (21-32) 25mmol/L (21-32) Anion Gap 8 (6-14) 7 (6-14) 7 (6-14) Blood Urea Nitrogen 21mg/dL (8-26) 20mg/dL (8-26) 21mg/dL (8-26) Creatinine 1.3mg/dL (0.7-1.3) 1.5mg/dL (0.7-1.3) 1.7mg/dL (0.7-1.3) Estimated GFR (Cockcroft-Gault) 52.5 44.5 38.5 Glucose Level 131mg/dL (70-99) 126mg/dL (70-99) 128mg/dL (70-99) Calcium Level 8.0mg/dL (8.5-10.1) 8.3mg/dL (8.5-10.1) 8.6mg/dL (8.5-10.1) Phosphorus Level 2.8mg/dL (2.6-4.7) 3.2mg/dL (2.6-4.7) Magnesium Level 2.2mg/dL (1.8-2.4) 2.3mg/dL (1.8-2.4) 2.2mg/dL (1.8-2.4) White Blood Count 9.0x10^3/uL (4.0-11.0) 8.1x10^3/uL (4.0-11.0) Red Blood Count 2.40x10^6/uL (4.30-5.70) 2.47x10^6/uL (4.30-5.70) Hemoglobin 7.8g/dL (13.0-17.5) 7.9g/dL (13.0-17.5) Hematocrit 24.1% (39.0-53.0) 24.8% (39.0-53.0) Mean Corpuscular Volume 101fL (79-100) 100fL (79-100) Mean Corpuscular Hemoglobin 32pg (25-35) 32pg (25-35) Mean Corpuscular Hemoglobin Concent 32g/dL (31-37) 32g/dL (31-37) Red Cell Distribution Width 15.8% (11.5-14.5) 15.5% (11.5-14.5) Platelet Count 241x10^3/uL (140-400) 250x10^3/uL (140-400) Neutrophils (%) (Auto) 68% (31-73) 68% (31-73) Lymphocytes (%) (Auto) 19% (24-48) 20% (24-48) Monocytes (%) (Auto) 9% (0-9) 9% (0-9) Eosinophils (%) (Auto) 3% (0-3) 3% (0-3) Basophils (%) (Auto) 1% (0-3) 1% (0-3) Neutrophils # (Auto) 6.2x10^3uL (1.8-7.7) 5.4x10^3uL (1.8-7.7) Lymphocytes # (Auto) 1.7x10^3/uL (1.0-4.8) 1.6x10^3/uL (1.0-4.8) Monocytes # (Auto) 0.8x10^3/uL (0.0-1.1) 0.7x10^3/uL (0.0-1.1) Eosinophils # (Auto) 0.3x10^3/uL (0.0-0.7) 0.2x10^3/uL (0.0-0.7) Basophils # (Auto) 0.1x10^3/uL (0.0-0.2) 0.1x10^3/uL (0.0-0.2) BUN/Creatinine Ratio 12 (6-20) Total Bilirubin 0.5mg/dL (0.2-1.0) Aspartate Amino Transf (AST/SGOT) 59U/L (15-37) Alanine Aminotransferase (ALT/SGPT) 53U/L (16-63) Alkaline Phosphatase 88U/L (46-116) Total Protein 6.4g/dL (6.4-8.2) Albumin 1.9g/dL (3.4-5.0) Albumin/Globulin Ratio 0.4 (1.0-1.7) Laboratory Tests Test 10/20/16 06:35 White Blood Count 8.1x10^3/uL (4.0-11.0) Red Blood Count 2.47x10^6/uL (4.30-5.70) Hemoglobin 7.9g/dL (13.0-17.5) Hematocrit 24.8% (39.0-53.0) Mean Corpuscular Volume 100fL (79-100) Mean Corpuscular Hemoglobin 32pg (25-35) Mean Corpuscular Hemoglobin Concent 32g/dL (31-37) Red Cell Distribution Width 15.5% (11.5-14.5) Platelet Count 250x10^3/uL (140-400) Neutrophils (%) (Auto) 68% (31-73) Lymphocytes (%) (Auto) 20% (24-48) Monocytes (%) (Auto) 9% (0-9) Eosinophils (%) (Auto) 3% (0-3) Basophils (%) (Auto) 1% (0-3) Neutrophils # (Auto) 5.4x10^3uL (1.8-7.7) Lymphocytes # (Auto) 1.6x10^3/uL (1.0-4.8) Monocytes # (Auto) 0.7x10^3/uL (0.0-1.1) Eosinophils # (Auto) 0.2x10^3/uL (0.0-0.7) Basophils # (Auto) 0.1x10^3/uL (0.0-0.2) Sodium Level 141mmol/L (136-145) Potassium Level 4.3mmol/L (3.5-5.1) Chloride Level 109mmol/L (98-107) Carbon Dioxide Level 25mmol/L (21-32) Anion Gap 7 (6-14) Blood Urea Nitrogen 21mg/dL (8-26) Creatinine 1.7mg/dL (0.7-1.3) Estimated GFR (Cockcroft-Gault) 38.5 BUN/Creatinine Ratio 12 (6-20) Glucose Level 128mg/dL (70-99) Calcium Level 8.6mg/dL (8.5-10.1) Phosphorus Level 3.2mg/dL (2.6-4.7) Magnesium Level 2.2mg/dL (1.8-2.4) Total Bilirubin 0.5mg/dL (0.2-1.0) Aspartate Amino Transf (AST/SGOT) 59U/L (15-37) Alanine Aminotransferase (ALT/SGPT) 53U/L (16-63) Alkaline Phosphatase 88U/L (46-116) Total Protein 6.4g/dL (6.4-8.2) Albumin 1.9g/dL (3.4-5.0) Albumin/Globulin Ratio 0.4 (1.0-1.7) Problem List Problems Medical Problems: (1) SBO (small bowel obstruction) Status: Acute Assessment/Plan s/p xlap some slow return of bowel fx, still distended, few ice chips and sips, however wait for better bowel function Problems: KENDRICK CULVER MD 10/20/16 1310: SURGICAL PROGRESS NOTE Assessment/Plan Reviewed, agree with above Problems: 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 Oct 20, 2016 09:01 KENDRICK CULVER MD Oct 20, 2016 13:10
--- NOTE | 2016-10-20 09:26 | PDOC ---
Subjective: Subjective: Feeling better. Passing gas, no stool. Bloated but less abd pain. Objective: Objective: Reviewed notes. Vital Signs: Vital Signs Date Time Temp Pulse Resp B/P Pulse Ox O2 Delivery O2 Flow Rate FiO2 10/20/16 08:47 93 Nasal Cannula 2.0 10/20/16 07:00 97.9 82 18 157/67 97.9 Labs: Laboratory Tests Test 10/20/16 06:35 White Blood Count 8.1x10^3/uL Red Blood Count 2.47x10^6/uL Hemoglobin 7.9g/dL Hematocrit 24.8% Mean Corpuscular Volume 100fL Mean Corpuscular Hemoglobin 32pg Mean Corpuscular Hemoglobin Concent 32g/dL Red Cell Distribution Width 15.5% Platelet Count 250x10^3/uL Neutrophils (%) (Auto) 68% Lymphocytes (%) (Auto) 20% Monocytes (%) (Auto) 9% Eosinophils (%) (Auto) 3% Basophils (%) (Auto) 1% Neutrophils # (Auto) 5.4x10^3uL Lymphocytes # (Auto) 1.6x10^3/uL Monocytes # (Auto) 0.7x10^3/uL Eosinophils # (Auto) 0.2x10^3/uL Basophils # (Auto) 0.1x10^3/uL Sodium Level 141mmol/L Potassium Level 4.3mmol/L Chloride Level 109mmol/L Carbon Dioxide Level 25mmol/L Anion Gap 7 Blood Urea Nitrogen 21mg/dL Creatinine 1.7mg/dL Estimated GFR (Cockcroft-Gault) 38.5 BUN/Creatinine Ratio 12 Glucose Level 128mg/dL Calcium Level 8.6mg/dL Phosphorus Level 3.2mg/dL Magnesium Level 2.2mg/dL Total Bilirubin 0.5mg/dL Aspartate Amino Transf (AST/SGOT) 59U/L Alanine Aminotransferase (ALT/SGPT) 53U/L Alkaline Phosphatase 88U/L Total Protein 6.4g/dL Albumin 1.9g/dL Albumin/Globulin Ratio 0.4 PE: GEN: NAD, up to chair, cooperative LUNGS: CTAB anteriorly, nasal cannula HEART: RRR ABD: BS+, some distension EXTREMITY: BLE trace edema NEURO/PSYCH: A & O 3 A/P: S/p exp lap 1/9/16 w/ CONG, h/o SBOs -on TPN, now passing gas -- Note plans to try sips & chips and for acute abd series. GAYLA CLEMENTE Oct 20, 2016 09:26
--- NOTE | 2016-10-20 09:57 | PDOC ---
Infectious Disease Note Subjective Subjective No nausea. Better. Still not eating ROS ROS GEN: Denies fevers, chills, sweats HEENT: Denies blurred vision, sore throat CV: Denies chest pain RESP: Denies shortness of air, cough GI: Denies n/v/d NEURO: Denies confusion, dizziness MSK: Denies weakness, joint pain/swelling Vital Sign Vital Signs Vital Signs Date Time Temp Pulse Resp B/P Pulse Ox O2 Delivery O2 Flow Rate FiO2 10/20/16 08:47 93 Nasal Cannula 2.0 10/20/16 07:00 97.9 82 18 157/67 97.9 Physical Exam PHYSICAL EXAM GENERAL: Up in the chair, smiling, NAD HEENT: OC/OP edentulous. pink and dry NECK: Supple, no JVD, no LN LUNGS: Clear HEART: S1S2, no gallop, no murmur ABD: Obese, hypoactive BS, NT light palpation. Incision well-approx. No redness or drainage. EXT: BLE trace edema. No cyanosis METAL AND PLASTIC HEATER: Alert, 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. + tremor SKIN: No rash LUE-PICC. clean Labs Lab Laboratory Tests Test 10/20/16 06:35 White Blood Count 8.1x10^3/uL (4.0-11.0) Red Blood Count 2.47x10^6/uL (4.30-5.70) Hemoglobin 7.9g/dL (13.0-17.5) Hematocrit 24.8% (39.0-53.0) Mean Corpuscular Volume 100fL (79-100) Mean Corpuscular Hemoglobin 32pg (25-35) Mean Corpuscular Hemoglobin Concent 32g/dL (31-37) Red Cell Distribution Width 15.5% (11.5-14.5) Platelet Count 250x10^3/uL (140-400) Neutrophils (%) (Auto) 68% (31-73) Lymphocytes (%) (Auto) 20% (24-48) Monocytes (%) (Auto) 9% (0-9) Eosinophils (%) (Auto) 3% (0-3) Basophils (%) (Auto) 1% (0-3) Neutrophils # (Auto) 5.4x10^3uL (1.8-7.7) Lymphocytes # (Auto) 1.6x10^3/uL (1.0-4.8) Monocytes # (Auto) 0.7x10^3/uL (0.0-1.1) Eosinophils # (Auto) 0.2x10^3/uL (0.0-0.7) Basophils # (Auto) 0.1x10^3/uL (0.0-0.2) Sodium Level 141mmol/L (136-145) Potassium Level 4.3mmol/L (3.5-5.1) Chloride Level 109mmol/L (98-107) Carbon Dioxide Level 25mmol/L (21-32) Anion Gap 7 (6-14) Blood Urea Nitrogen 21mg/dL (8-26) Creatinine 1.7mg/dL (0.7-1.3) Estimated GFR (Cockcroft-Gault) 38.5 BUN/Creatinine Ratio 12 (6-20) Glucose Level 128mg/dL (70-99) Calcium Level 8.6mg/dL (8.5-10.1) Phosphorus Level 3.2mg/dL (2.6-4.7) Magnesium Level 2.2mg/dL (1.8-2.4) Total Bilirubin 0.5mg/dL (0.2-1.0) Aspartate Amino Transf (AST/SGOT) 59U/L (15-37) Alanine Aminotransferase (ALT/SGPT) 53U/L (16-63) Alkaline Phosphatase 88U/L (46-116) Total Protein 6.4g/dL (6.4-8.2) Albumin 1.9g/dL (3.4-5.0) Albumin/Globulin Ratio 0.4 (1.0-1.7) Micro Klebsiella pneumoniae 50,000-100,000 colony forming units per mL ANTIMICROBIAL SUSCEPTIBILITY Final Comment S = Susceptible; I = Intermediate; R = Resistant P = Positive; N = Negative MICS are expressed in micrograms per mL Antibiotic RSLT#1 RSLT#2 RSLT#3 RSLT#4 Amoxicillin/Clavulanic Acid S Ampicillin R Cefepime S Ceftriaxone S Cefuroxime S Cephalothin S Ciprofloxacin S Ertapenem S Gentamicin S Imipenem S Levofloxacin S Nitrofurantoin S Piperacillin S Tetracycline S Tobramycin S Trimethoprim/Sulfa S Objective Assessment Fever - better TAYLOR Klebsiella UTI 10/04 although a lot of squamous cells present on UA Small bowel obstruction - seems improved and no NGT Left hand pain and warmth - better with less edema N/V - better Dislodgement of NGT - out Hiatal hernia + MRSA Cipro allergy. Seizure disorder Parkinson's disease h/o UTI: Citrobacter & Klebsiella h/o E. coli bacteremia Plan Plan of Care ID to sign off SAMI MARTINEZ MD Oct 20, 2016 09:57
[2016-10-20] MEDS: IV 1/2 NORMAL SALINE 1,000 ML IV SCH ×2 (10:05→22:24)
[2016-10-20 11:00] VITALS: BP 164/68
--- NOTE | 2016-10-20 13:11 | PDOC ---
SUBJECTIVE ROS TAYLOR/ CKD III/ TPN Doign same overall, talking on the phone CVS: no Orthopnea, no CP RESP: no SOB, no LOVELACE GI: no Nausea, no Vomiting : no Dysuria, no Urgency OBJECTIVE Vital Signs Vital Signs Date Time Temp Pulse Resp B/P Pulse Ox O2 Delivery O2 Flow Rate FiO2 10/20/16 11:00 98.1 70 16 164/68 93 Nasal Cannula 3.0 98.1 I & 0 Intake and Output 10/20/16 07:00 Intake Total 481 ml Balance 481 ml Intake Oral 0 ml IV Total 481 ml # Voids 3 Holbrook was removed few days ago so I/Os are not accurate PHYSICAL EXAM Physical Exam GEN: Awake, Oriented x 1, In no distress EYES: Vision Unchanged, Conjunctiva Normal EN: No EN Drainage, Mucous Membranes moist NECK: no JVD, no JVP, Supple, no Thyromegaly CVS: S1S2, no Murmur, No Gallop, No Rub,tr ankle Edema RESP: no Rales, no Rhonchi,no Acc. Muscle Use GI: BS + ve, NO Bruit, Min Tender, Non Distended : no CVA tenderness, no Suprapubic Tenderness Tremors + DIAGNOSIS/ASSESSMENT Assessment & Plan TAYLOR - ? Due to lasix - now back on IVF: Current fluid and E-lyte status does not necessitate emergent need for dialysis. CKD III baseline Creat is about 1.4 Sev HypoAlbuminemeia - TPN for now - pending GS Clearance for PO intake Oliguria - replace holbrook for accurate I/os Problems: COMMENT/RELEVANT DATA Meds Current Medications Medications (Trade) Dose Ordered Sig/Liam Start Time Stop Time Status Last Admin Dose Admin Acetaminophen (Tylenol) 650 mg PRN Q4HRS PRN 10/05/16 10:15 10/14/16 08:48 DC 10/13/16 00:17 650 MG Al Hydroxide/Mg Hydroxide (Mylanta Plus Xs) 30 ml PRN Q4HRS PRN 10/07/16 08:45 10/14/16 08:48 DC 10/12/16 21:07 30 ML Amino Acids/ Glycerin/ Electrolytes (Procalamine) 1,000 ml @ 80 mls/hr [id number] 10/14/16 11:15 10/16/16 21:59 DC 10/16/16 09:16 80 MLS/HR Aspirin (Children'S Aspirin) 81 mg [id number] 10/05/16 11:00 10/13/16 08:29 DC 10/13/16 08:15 81 MG Benzocaine (Hurricaine One) 1 spray STK-MED ONCE 09/30/16 19:51 09/30/16 19:52 DC Bisacodyl (Dulcolax Supp) 10 mg 1X ONCE 10/08/16 09:30 10/08/16 09:31 DC 10/08/16 10:11 10 MG Carbidopa/Levodopa (Sinemet Cr) 1 tab.sa TID 10/05/16 11:00 10/14/16 08:48 DC 10/13/16 08:16 1 TAB.SA Cefpodoxime Proxetil (Vantin) 100 mg BID 10/09/16 21:00 10/13/16 08:29 DC 10/13/16 08:16 100 MG Clonidine HCl (Catapres Tts-2) 1 patch WEEKLY 10/17/16 11:00 10/17/16 11:58 1 PATCH Clonidine HCl 1 patch 1 patch WEEKLY 10/03/16 10:00 10/05/16 10:24 DC 10/03/16 12:30 1 PATCH Desflurane (Suprane) 90 ml STK-MED ONCE 10/13/16 16:53 10/14/16 07:31 DC Dexamethasone Sodium Phosphate (Decadron) 20 mg STK-MED ONCE 10/13/16 14:25 10/14/16 07:31 DC Dextrose/Sodium Chloride (Iv D5% - 1/2 NS) 1,000 ml @ 50 mls/hr Q20H 10/13/16 11:00 10/17/16 12:23 DC 10/17/16 00:16 50 MLS/HR Dextrose/Sodium Chloride (Iv D5% - NS) 1,000 ml @ 60 mls/hr [id number] 10/13/16 08:30 10/13/16 11:01 DC 10/13/16 09:25 60 MLS/HR Diphenhydramine HCl (Benadryl) 12.5 mg PRN Q2HR PRN 10/13/16 13:00 10/14/16 11:00 DC Enoxaparin Sodium 40 mg 40 mg Q24H 10/14/16 09:00 10/20/16 08:46 40 MG Ephedrine Sulfate (Akovaz) 50 mg STK-MED ONCE 10/13/16 14:00 10/14/16 07:31 DC Famotidine (Pepcid) 20 mg STK-MED ONCE 10/13/16 14:25 10/14/16 07:31 DC Fentanyl Citrate (Fentanyl 2ml Vial) 100 mcg STK-MED ONCE 10/13/16 18:20 10/14/16 07:31 DC Fentanyl Citrate 50 mcg 50 mcg PRN Q5MIN PRN 10/13/16 13:00 10/14/16 11:04 DC Fentanyl Citrate 100 mcg 100 mcg STK-MED ONCE 10/13/16 19:17 10/14/16 07:31 DC Furosemide (Lasix) 40 mg DAILY 10/07/16 10:00 10/08/16 08:56 DC 10/08/16 08:42 40 MG Furosemide 20 mg 20 mg 1X ONCE 10/19/16 10:30 10/19/16 10:31 DC 10/19/16 11:01 20 MG Gabapentin (Neurontin) 600 mg QID 10/05/16 13:00 10/14/16 08:47 DC 10/13/16 08:14 600 MG Glycopyrrolate (Robinul) 1 mg STK-MED ONCE 10/13/16 17:00 10/14/16 07:31 DC Heparin Sodium/ Sodium Chloride 60 unit 1X ONCE 10/17/16 08:30 10/17/16 08:31 DC 10/17/16 08:30 60 UNIT Hydralazine HCl 10 mg 10 mg PRN Q6HRS PRN 10/04/16 10:15 10/12/16 10:40 DC 10/06/16 19:17 10 MG Hydromorphone HCl (Dilaudid) 0.4 mg PRN Q10MIN PRN 10/13/16 13:00 10/14/16 11:04 DC Info (Do NOT chart on this entry -- for MONITORING) 1 each PRN DAILY PRN 10/17/16 09:45 10/19/16 09:44 DC Iohexol (Omnipaque 300 Mg/ml) 43 ml 1X ONCE 10/17/16 09:30 10/17/16 09:33 DC 10/17/16 08:45 17 ML Labetalol HCl (Normodyne) 20 mg PRN Q6HRS PRN 10/04/16 10:15 10/05/16 10:24 DC Labetalol HCl 20 mg 20 mg PRN Q6HRS PRN 10/17/16 10:30 Lactated Ringer's (Iv Lactated Ringers) 1,000 ml @ 125 mls/hr Q8H 10/13/16 12:48 10/14/16 00:47 DC 10/13/16 13:30 125 MLS/HR Levetiracetam (Keppra) 250 mg BID 10/05/16 11:00 10/14/16 08:47 DC 10/13/16 08:17 250 MG Levetiracetam 500 mg/Sodium Chloride 105 ml @ 400 mls/hr Q12HR 10/14/16 09:00 10/20/16 08:46 400 MLS/HR Levetiracetam/ Sodium Chloride (Keppra/Iv Sodium Chloride 0.9% 100ml) 105 ml @ 400 mls/hr Q12HR 09/30/16 21:00 10/05/16 10:24 DC 10/05/16 09:30 400 MLS/HR Levothyroxine Sodium (Synthroid) 100 mcg DAILY07 10/05/16 10:30 10/14/16 08:48 DC 10/13/16 05:08 100 MCG Lidocaine HCl 100 mg STK-MED ONCE 10/13/16 13:27 10/14/16 07:31 DC Lidocaine/Sodium Bicarbonate (Buffered Lidocaine 1%) 3 ml 1X ONCE 10/17/16 08:30 10/17/16 08:31 DC 10/17/16 08:30 3 ML Meperidine HCl (Demerol) 12.5 mg PRN Q5MIN PRN 10/13/16 13:00 10/14/16 11:00 DC Metoprolol Succinate (Toprol Xl) 25 mg DAILY 10/05/16 11:00 10/14/16 08:47 DC 10/13/16 08:16 25 MG Midazolam HCl (Versed) 1 mg PRN 1X PRN 10/13/16 13:00 10/14/16 11:07 DC Morphine Sulfate 4 mg PRN Q4HRS PRN 10/14/16 14:30 10/20/16 08:47 4 MG Neostigmine Methylsulfate 5 mg STK-MED ONCE 10/13/16 17:00 10/14/16 07:31 DC Ondansetron HCl (Zofran) 4 mg STK-MED ONCE 10/13/16 14:25 10/14/16 07:31 DC Ondansetron HCl 4 mg 4 mg PRN Q8HRS PRN 09/30/16 19:15 10/01/16 19:14 DC 09/30/16 22:07 4 MG Pantoprazole Sodium (Protonix) 40 mg DAILYAC 10/07/16 10:00 10/13/16 06:45 DC 10/13/16 05:08 40 MG Pantoprazole Sodium 40 mg 40 mg DAILYAC 10/13/16 07:30 10/19/16 08:30 40 MG Phenylephrine HCl 1 mg STK-MED ONCE 10/13/16 18:14 10/14/16 07:31 DC Piperacillin Sod/ Tazobactam Sod 3.375 gm/Sodium Chloride 50 ml @ 100 mls/hr Q6HRS 10/13/16 09:00 10/19/16 15:06 DC 10/19/16 12:42 100 MLS/HR Piperacillin Sod/ Tazobactam Sod/ Sodium Chloride (Zosyn/Iv Sodium Chloride 0.9% 50ml) 50 ml @ 100 mls/hr Q6HRS 10/04/16 11:00 10/09/16 10:55 DC 10/09/16 06:26 100 MLS/HR Potassium Chloride/Dextrose/ Sod Cl 1,000 ml @ 125 mls/hr Q8H 09/30/16 20:00 10/04/16 10:21 DC 10/04/16 06:02 125 MLS/HR Pramipexole Dihydrochloride (miraPEX) 0.5 mg [id number] 10/05/16 11:00 10/14/16 08:48 DC 10/13/16 08:15 0.5 MG Prednisone (Prednisone) 10 mg DAILY08 10/07/16 08:00 10/13/16 08:29 DC 10/13/16 08:15 10 MG Prochlorperazine Edisylate (Compazine) 5 mg PRN Q6HRS PRN 10/13/16 13:00 10/14/16 11:00 DC Propofol (Diprivan) 20 ml @ As Directed STK-MED ONCE 10/13/16 13:27 10/14/16 07:31 DC Rocuronium Metter (Zemuron) 50 mg STK-MED ONCE 10/13/16 16:19 10/14/16 07:31 DC Simvastatin (Zocor) 20 mg HS 10/05/16 21:00 10/14/16 08:48 DC 10/12/16 21:07 20 MG Sodium Polystyrene Sulfonate 15 gm 15 gm 1X ONCE 10/13/16 08:30 10/13/16 08:31 DC 10/13/16 09:26 15 GM Sodium Chloride (Iv Sodium Chloride 0.45%) 1,000 ml @ 45 mls/hr [id number] 10/20/16 09:00 10/20/16 10:05 45 MLS/HR Sodium Chloride 90 meq/Potassium Chloride 50 meq/ Potassium Phosphate 13.6 mmol/Magnesium Sulfate 10 meq/ Calcium Gluconate 10 meq/ Multivitamins/ Minerals 10 ml/ Chromium/Copper/ Manganese/Seleni/ Zn 1 ml/Total Parenteral Nutrition/Amino Acids/Dextrose/ Fat Emulsion Intravenous 1,512 ml @ 63 mls/hr TPN CONT 10/17/16 22:00 10/18/16 21:59 DC 10/17/16 21:09 63 MLS/HR Sodium Chloride 90 meq/Sodium Acetate 40 meq/ Potassium Chloride 50 meq/ Potassium Phosphate 13.6 mmol/Magnesium Sulfate 10 meq/ Calcium Gluconate 10 meq/ Multivitamins/ Minerals 10 ml/ Chromium/Copper/ Manganese/Seleni/ Zn 1 ml/Total Parenteral Nutrition/Amino Acids/Dextro... 1,920 ml @ 80 mls/hr TPN CONT 10/19/16 22:00 10/20/16 21:59 10/19/16 22:29 80 MLS/HR Sodium Chloride/ Potassium Chloride/ Potassium Phosphate/ Magnesium Sulfate/ Calcium Gluconate/ Multivitamins/ Minerals/Chromium/ Copper/Manganese/ Seleni/Zn/Total Parenteral Nutrition/Amino Acids/Dextrose/ Fat Emulsion Intravenous (Sodium Chloride/ Potassium Phospha... 1,512 ml @ 63 mls/hr TPN CONT 10/18/16 22:00 10/19/16 21:59 DC 10/18/16 21:24 63 MLS/HR Tamsulosin HCl (Flomax) 0.4 mg QHS 10/05/16 21:00 10/14/16 08:48 DC 10/12/16 21:07 0.4 MG Tramadol HCl (Ultram) 50 mg QID 10/05/16 13:00 10/14/16 08:48 DC 10/13/16 08:17 50 MG Vancomycin HCl 1 each 1X ONCE 10/06/16 11:30 10/06/16 11:31 DC 10/06/16 11:30 1 EACH Vancomycin HCl 1 each 1 each PRN DAILY PRN 10/04/16 10:15 10/07/16 11:28 DC 10/07/16 11:11 1 EACH Vancomycin HCl 2 gm/Sodium Chloride 500 ml @ 250 mls/hr 1X ONCE 10/04/16 10:45 10/04/16 12:44 DC 10/04/16 11:26 250 MLS/HR Vancomycin HCl/ Sodium Chloride (Iv Sodium Chloride 0.9% 250ml) 250 ml @ 250 mls/hr Q24H 10/04/16 10:15 UNV Vancomycin HCl/ Sodium Chloride (Iv Sodium Chloride 0.9% 500ml Bag) 500 ml @ 250 mls/hr Q24H 10/05/16 12:00 10/07/16 11:28 DC 10/06/16 11:47 250 MLS/HR Lab Laboratory Tests Test 10/20/16 06:35 White Blood Count 8.1x10^3/uL (4.0-11.0) Red Blood Count 2.47x10^6/uL (4.30-5.70) Hemoglobin 7.9g/dL (13.0-17.5) Hematocrit 24.8% (39.0-53.0) Mean Corpuscular Volume 100fL (79-100) Mean Corpuscular Hemoglobin 32pg (25-35) Mean Corpuscular Hemoglobin Concent 32g/dL (31-37) Red Cell Distribution Width 15.5% (11.5-14.5) Platelet Count 250x10^3/uL (140-400) Neutrophils (%) (Auto) 68% (31-73) Lymphocytes (%) (Auto) 20% (24-48) Monocytes (%) (Auto) 9% (0-9) Eosinophils (%) (Auto) 3% (0-3) Basophils (%) (Auto) 1% (0-3) Neutrophils # (Auto) 5.4x10^3uL (1.8-7.7) Lymphocytes # (Auto) 1.6x10^3/uL (1.0-4.8) Monocytes # (Auto) 0.7x10^3/uL (0.0-1.1) Eosinophils # (Auto) 0.2x10^3/uL (0.0-0.7) Basophils # (Auto) 0.1x10^3/uL (0.0-0.2) Sodium Level 141mmol/L (136-145) Potassium Level 4.3mmol/L (3.5-5.1) Chloride Level 109mmol/L (98-107) Carbon Dioxide Level 25mmol/L (21-32) Anion Gap 7 (6-14) Blood Urea Nitrogen 21mg/dL (8-26) Creatinine 1.7mg/dL (0.7-1.3) Estimated GFR (Cockcroft-Gault) 38.5 BUN/Creatinine Ratio 12 (6-20) Glucose Level 128mg/dL (70-99) Calcium Level 8.6mg/dL (8.5-10.1) Phosphorus Level 3.2mg/dL (2.6-4.7) Magnesium Level 2.2mg/dL (1.8-2.4) Total Bilirubin 0.5mg/dL (0.2-1.0) Aspartate Amino Transf (AST/SGOT) 59U/L (15-37) Alanine Aminotransferase (ALT/SGPT) 53U/L (16-63) Alkaline Phosphatase 88U/L (46-116) Total Protein 6.4g/dL (6.4-8.2) Albumin 1.9g/dL (3.4-5.0) Albumin/Globulin Ratio 0.4 (1.0-1.7) JAYA COBURN MD Oct 20, 2016 13:11
[2016-10-20] MEDS ORDERED: MAGNESIUM SULFATE 2GM 50 ML IV PRN (13:15)
[2016-10-20] MEDS: TPN PER PHARMACY MC PRN (13:27)
[2016-10-20 15:00] VITALS: BP 151/70
--- NOTE | 2016-10-20 15:18 | RAD ---
Indication vomiting. Postop ileus. Abdominal discomfort. A single view of the chest was obtained. Flat and upright films of the abdomen were also obtained. The examination is compared to a similar series of films one week earlier. Heart size is unchanged. There is volume loss at the left lung base likely reflecting pleural fluid and atelectasis similar to slightly worse than on the previous exam. There is no gross congestive heart failure. Neuro stimulating device and right PICC line are noted. There is no free air. There is mild distention of the large bowel and small bowel loops in the left abdomen similar to slightly improved. These findings would be compatible with mild ileus. Postoperative changes are noted in the lumbar spine. A definite new finding is not seen in the abdomen on plain films. Postoperative changes in the pelvis are noted. IMPRESSION: Volume loss at the left lung base compatible with pleural fluid and atelectasis similar to slightly worse than on the study one week earlier. Mild dilatation of large and small bowel loops, slightly improved relative to the previous exam, suggesting mild ileus
[2016-10-20 19:55] VITALS: BP 149/66
[2016-10-20] MEDS ORDERED: AMINO ACIDS IV SCH ×11 (22:00)
[2016-10-20] MEDS ORDERED: DEXTROSE 70% IV SCH ×11 (22:00)
[2016-10-20] MEDS ORDERED: [UNRECOGNIZED DRUG - OTHER] IV SCH ×11 (22:00)
[2016-10-20] MEDS ORDERED: TOTAL PARENTERAL NUTRITION IV SCH ×11 (22:00)
[2016-10-20] MEDS: ONDANSETRON PF 4 MG/2 ML VIAL. IV PRN (22:05)
[2016-10-20 23:47] VITALS: BP 156/75
[2016-10-21] MEDS: MORPHINE SULFATE 4 MG/ML DISP.SYRIN. IV PRN ×4 (02:48→22:26)
[2016-10-21 03:53] VITALS: BP 145/66
[2016-10-21 07:00] VITALS: BP 150/62
[2016-10-21 07:02] LABS: ALBUMIN 1.8 g/dL (3.4-5.0); CALCIUM 8.2 mg/dL (8.5-10.1); CREATININE 1.3 mg/dL (0.7-1.3); GFR 52.5; POTASSIUM 4.3 mmol/L (3.5-5.1)
[2016-10-21 07:05] LABS: BASO % 0 % (0-3); EOS % 4 % (0-3); HEMATOCRIT 22.5 % (39.0-53.0); HEMOGLOBIN 7.3 g/dL (13.0-17.5); LYMPH # 1.3 x10^3/uL (1.0-4.8); LYMPH % 21 % (24-48); MEAN CORPUSCULAR HEMOGLOBIN 32 pg (25-35); MEAN CORPUSCULAR HGB CONC 32 g/dL (31-37); MEAN CORPUSCULAR VOLUME 99 fL (79-100); MONO % 10 % (0-9); NEUT % 65 % (31-73); PLATELET COUNT 226 x10^3/uL (140-400); RED BLOOD COUNT 2.27 x10^6/uL (4.30-5.70); RED CELL DISTRIBUTION WIDTH 15.2 % (11.5-14.5); WHITE BLOOD COUNT 6.3 x10^3/uL (4.0-11.0)
--- NOTE | 2016-10-21 09:24 | PDOC ---
PROGRESS NOTES Subjective Subjective says he had a BM yesterday . denies nausea or vomiting of abdominal pain. lab reviewed. acute abdominal series shows mild ileus. will start clear liquids Objective Objective Vital Signs Date Time Temp Pulse Resp B/P Pulse Ox O2 Delivery O2 Flow Rate FiO2 10/21/16 07:20 Nasal Cannula 3.0 10/21/16 07:00 97.7 80 18 150/62 95 97.7 Intake and Output 10/21/16 07:00 Intake Total 1630 ml Output Total 2203 ml Balance -573 ml Intake Oral 0 ml IV Total 1630 ml Output Urine Total 2203 ml Physical Exam Abdomen: Soft, No tenderness, Other (has bowel sounds) Heart: Regular rate, Normal S1, Normal S2 Extremities: No edema General: Alert HEENT: Atraumatic Lungs: Clear to auscultation Neuro: Normal speech Psych/Mental Status: Mood NL Skin: No rashes Assessment Assessment Problems Medical Problems::Small-bowel obstruction resolved exploratory laparotomy 10/13/16. lysis of adhesions. bowel viable. post op ileus better 2. Seizure disorder. 3. Parkinson's disease. 4. Hypothyroidism. 5. Peripheral neuropathy. 6. Hypertension. bp high 7. Chronic kidney disease stage III. klebsiella uti treated suspected gout synovitis resolved peripheral edema critical illness myopathy hematemesis resolved (1) SBO (small bowel obstruction) Status: Acute Plan Plan of Care start clear liquds continue TPN decrease iv fluids PT and OT Comment Review of Relevant I have reviewed the following items [place] (where applicable) has been applied. Labs Laboratory Tests Test 10/20/16 06:35 10/21/16 05:00 White Blood Count 8.1x10^3/uL (4.0-11.0) 6.3x10^3/uL (4.0-11.0) Red Blood Count 2.47x10^6/uL (4.30-5.70) 2.27x10^6/uL (4.30-5.70) Hemoglobin 7.9g/dL (13.0-17.5) 7.3g/dL (13.0-17.5) Hematocrit 24.8% (39.0-53.0) 22.5% (39.0-53.0) Mean Corpuscular Volume 100fL (79-100) 99fL (79-100) Mean Corpuscular Hemoglobin 32pg (25-35) 32pg (25-35) Mean Corpuscular Hemoglobin Concent 32g/dL (31-37) 32g/dL (31-37) Red Cell Distribution Width 15.5% (11.5-14.5) 15.2% (11.5-14.5) Platelet Count 250x10^3/uL (140-400) 226x10^3/uL (140-400) Neutrophils (%) (Auto) 68% (31-73) 65% (31-73) Lymphocytes (%) (Auto) 20% (24-48) 21% (24-48) Monocytes (%) (Auto) 9% (0-9) 10% (0-9) Eosinophils (%) (Auto) 3% (0-3) 4% (0-3) Basophils (%) (Auto) 1% (0-3) 0% (0-3) Neutrophils # (Auto) 5.4x10^3uL (1.8-7.7) 4.1x10^3uL (1.8-7.7) Lymphocytes # (Auto) 1.6x10^3/uL (1.0-4.8) 1.3x10^3/uL (1.0-4.8) Monocytes # (Auto) 0.7x10^3/uL (0.0-1.1) 0.6x10^3/uL (0.0-1.1) Eosinophils # (Auto) 0.2x10^3/uL (0.0-0.7) 0.2x10^3/uL (0.0-0.7) Basophils # (Auto) 0.1x10^3/uL (0.0-0.2) 0.0x10^3/uL (0.0-0.2) Sodium Level 141mmol/L (136-145) 138mmol/L (136-145) Potassium Level 4.3mmol/L (3.5-5.1) 4.3mmol/L (3.5-5.1) Chloride Level 109mmol/L (98-107) 106mmol/L (98-107) Carbon Dioxide Level 25mmol/L (21-32) 24mmol/L (21-32) Anion Gap 7 (6-14) 8 (6-14) Blood Urea Nitrogen 21mg/dL (8-26) 17mg/dL (8-26) Creatinine 1.7mg/dL (0.7-1.3) 1.3mg/dL (0.7-1.3) Estimated GFR (Cockcroft-Gault) 38.5 52.5 BUN/Creatinine Ratio 12 (6-20) Glucose Level 128mg/dL (70-99) 119mg/dL (70-99) Calcium Level 8.6mg/dL (8.5-10.1) 8.2mg/dL (8.5-10.1) Phosphorus Level 3.2mg/dL (2.6-4.7) 3.0mg/dL (2.6-4.7) Magnesium Level 2.2mg/dL (1.8-2.4) Total Bilirubin 0.5mg/dL (0.2-1.0) Aspartate Amino Transf (AST/SGOT) 59U/L (15-37) Alanine Aminotransferase (ALT/SGPT) 53U/L (16-63) Alkaline Phosphatase 88U/L (46-116) Total Protein 6.4g/dL (6.4-8.2) Albumin 1.9g/dL (3.4-5.0) 1.8g/dL (3.4-5.0) Albumin/Globulin Ratio 0.4 (1.0-1.7) Laboratory Tests Test 10/21/16 05:00 White Blood Count 6.3x10^3/uL (4.0-11.0) Red Blood Count 2.27x10^6/uL (4.30-5.70) Hemoglobin 7.3g/dL (13.0-17.5) Hematocrit 22.5% (39.0-53.0) Mean Corpuscular Volume 99fL (79-100) Mean Corpuscular Hemoglobin 32pg (25-35) Mean Corpuscular Hemoglobin Concent 32g/dL (31-37) Red Cell Distribution Width 15.2% (11.5-14.5) Platelet Count 226x10^3/uL (140-400) Neutrophils (%) (Auto) 65% (31-73) Lymphocytes (%) (Auto) 21% (24-48) Monocytes (%) (Auto) 10% (0-9) Eosinophils (%) (Auto) 4% (0-3) Basophils (%) (Auto) 0% (0-3) Neutrophils # (Auto) 4.1x10^3uL (1.8-7.7) Lymphocytes # (Auto) 1.3x10^3/uL (1.0-4.8) Monocytes # (Auto) 0.6x10^3/uL (0.0-1.1) Eosinophils # (Auto) 0.2x10^3/uL (0.0-0.7) Basophils # (Auto) 0.0x10^3/uL (0.0-0.2) Sodium Level 138mmol/L (136-145) Potassium Level 4.3mmol/L (3.5-5.1) Chloride Level 106mmol/L (98-107) Carbon Dioxide Level 24mmol/L (21-32) Anion Gap 8 (6-14) Blood Urea Nitrogen 17mg/dL (8-26) Creatinine 1.3mg/dL (0.7-1.3) Estimated GFR (Cockcroft-Gault) 52.5 Glucose Level 119mg/dL (70-99) Calcium Level 8.2mg/dL (8.5-10.1) Phosphorus Level 3.0mg/dL (2.6-4.7) Albumin 1.8g/dL (3.4-5.0) Microbiology 10/13/16 Blood Culture - Final, Complete NO GROWTH AFTER 5 DAYS 10/13/16 Urine Culture - Final, Complete 10/13/16 Urine Culture Result 1 (MANDEEP) - Final, Complete Medications Current Medications Fentanyl Citrate 50 mcg 50 mcg PRN Q15MIN PRN IV PAIN GREATER THAN 3/10 Last administered on 09/30/16at 19:35; Start 09/30/16 at 17:30; Stop 10/01/16 at 04 :24; Status DC Lactated Ringer's (Iv Lactated Ringers) 1,000 ml @ 100 mls/hr Q10H IV Last administered on 09/30/16at 19:35; Start 09/30/16 at 17:28; Stop 10/01/16 at 03 :27; Status DC Ondansetron HCl (Zofran) 4 mg 1X ONCE IV Last administered on 09/30/16at 17:44 ; Start 09/30/16 at 17:30; Stop 09/30/16 at 17:32; Status DC Fentanyl Citrate (Fentanyl 2ml Vial) 50 mcg 1X ONCE IV ; Start 09/30/16 at 19: 15; Stop 10/01/16 at 04:24; Status DC Ondansetron HCl (Zofran) 4 mg PRN Q8HRS PRN IV NAUSEA/VOMITING Last administered on 09/30/16at 22:07; Start 09/30/16 at 19:15; Stop 10/01/16 at 19 :14; Status DC Fentanyl Citrate 50 mcg 50 mcg PRN Q2HR PRN IV PAIN Last administered on at 16:54; Start 09/30/16 at 19:15; Stop 10/01/16 at 19:14; Status DC Sodium Chloride 1,000 ml @ 100 mls/hr Q10H IV ; Start 09/30/16 at 19:30; Stop 10/01/16 at 04:24; Status DC Potassium Chloride/Dextrose/ Sod Cl (KCl 20 Meq In D5W-1/2 NS) 1,000 ml @ 125 mls/hr Q8H IV Last administered on 10/04/16at 06:02; Start 09/30/16 at 20:00; Stop 10/04/16 at 10:21; Status DC Enoxaparin Sodium 40 mg 40 mg Q24H SQ Last administered on 10/13/16 08:14; Start 10/01/16 at 09:00; Stop 10/13/16 at 08:36; Status DC Levetiracetam/ Sodium Chloride (Keppra/Iv Sodium Chloride 0.9% 100ml) 105 ml @ 400 mls/hr Q12HR IV Last administered on 10/05/16 09:30; Start 09/30/16 at 21: 00; Stop 10/05/16 at 10:24; Status DC Morphine Sulfate 2 mg PRN Q4HRS PRN IV SEVERE PAIN Last administered on 10:13; Start 09/30/16 at 19:30; Stop 10/05/16 at 10:24; Status DC Acetaminophen (Tylenol) 650 mg PRN Q6HRS PRN [place] MILD PAIN / TEMP; Start at 19:30; Stop 10/05/16 at 10:24; Status DC Ondansetron HCl (Zofran) 4 mg PRN Q6HRS PRN IV NAUSEA/VOMITING Last administered on 10/07/16 08:28; Start 09/30/16 at 19:30; Stop 10/09/16 at 12:08 ; Status DC Benzocaine (Hurricaine One) 1 spray STK-MED ONCE .ROUTE ; Start 09/30/16 at 19: 51; Stop 09/30/16 at 19:52; Status DC Morphine Sulfate 4 mg PRN Q4HRS PRN IV PAIN Last administered on 10/05/16 08:08 ; Start 10/01/16 at 20:00; Stop 10/05/16 at 10:24; Status DC Clonidine HCl 1 patch 1 patch WEEKLY TD Last administered on 10/03/16at 12:30; Start 10/03/16 at 10:00; Stop 10/05/16 at 10:24; Status DC Piperacillin Sod/ Tazobactam Sod/ Sodium Chloride (Zosyn/Iv Sodium Chloride 0.9 % 50ml) 50 ml @ 100 mls/hr Q6HRS IV Last administered on 10/09/16 06:26; Start 10/04/16 at 11:00; Stop 10/09/16 at 10:55; Status DC Vancomycin HCl 1 each 1 each PRN DAILY PRN MC SEE COMMENTS Last administered on 10/07/16 11:11; Start 10/04/16 at 10:15; Stop 10/07/16 at 11:28; Status DC Vancomycin HCl/ Sodium Chloride (Iv Sodium Chloride 0.9% 250ml) 250 ml @ 250 mls/hr Q24H IV ; Start 10/04/16 at 10:15; Status UNV Labetalol HCl (Normodyne) 20 mg PRN Q6HRS PRN IVP HYPERTENSION, SEE COMMENTS; Start 10/04/16 at 10:15; Stop 10/05/16 at 10:24; Status DC Hydralazine HCl 10 mg 10 mg PRN Q6HRS PRN IVP ELEVATED BP, SEE COMMENTS Last administered on 10/06/16 19:17; Start 10/04/16 at 10:15; Stop 10/12/16 at 10:40 ; Status DC Amino Acids/ Glycerin/ Electrolytes 1,000 ml @ 40 mls/hr Q24H IV Last administered on 10/06/16 09:59; Start 10/04/16 at 10:15; Stop 10/07/16 at 09:06 ; Status DC Vancomycin HCl 2 gm/Sodium Chloride 500 ml @ 250 mls/hr 1X ONCE IV Last administered on 10/04/16at 11:26; Start 10/04/16 at 10:45; Stop 10/04/16 at 12 :44; Status DC Vancomycin HCl/ Sodium Chloride (Iv Sodium Chloride 0.9% 500ml Bag) 500 ml @ 250 mls/hr Q24H IV Last administered on 10/06/16 11:47; Start 10/05/16 at 12:00 ; Stop 10/07/16 at 11:28; Status DC Vancomycin HCl 1 each 1X ONCE MC Last administered on 10/06/16 11:30; Start at 11:30; Stop 10/06/16 at 11:31; Status DC Aspirin (Children'S Aspirin) 81 mg [id number] PO Last administered on 10/13/16 08:15; Start 10/05/16 at 11:00; Stop 10/13/16 at 08:29; Status DC Gabapentin (Neurontin) 600 mg QID PO Last administered on 10/13/16 08:14; Start 10/05/16 at 13:00; Stop 10/14/16 at 08:47; Status DC Levetiracetam (Keppra) 250 mg BID PO Last administered on 10/13/16 08:17; Start 10/05/16 at 11:00; Stop 10/14/16 at 08:47; Status DC Levothyroxine Sodium (Synthroid) 100 mcg DAILY07 PO Last administered on 05:08; Start 10/05/16 at 10:30; Stop 10/14/16 at 08:48; Status DC Metoprolol Succinate (Toprol Xl) 25 mg DAILY PO Last administered on 10/13/16 08:16; Start 10/05/16 at 11:00; Stop 10/14/16 at 08:47; Status DC Pramipexole Dihydrochloride (miraPEX) 0.5 mg [id number] PO Last administered on 10/13 08:15; Start 10/05/16 at 11:00; Stop 10/14/16 at 08:48; Status DC Simvastatin (Zocor) 20 mg HS PO Last administered on 10/12/16 21:07; Start 10/05 at 21:00; Stop 10/14/16 at 08:48; Status DC Carbidopa/Levodopa (Sinemet Cr) 1 tab.sa TID PO Last administered on 10/13/16 08:16; Start 10/05/16 at 11:00; Stop 10/14/16 at 08:48; Status DC Tamsulosin HCl (Flomax) 0.4 mg QHS PO Last administered on 10/12/16 21:07; Start 10/05/16 at 21:00; Stop 10/14/16 at 08:48; Status DC Tramadol HCl (Ultram) 50 mg QID PO Last administered on 10/13/16 08:17; Start 10/05/16 at 13:00; Stop 10/14/16 at 08:48; Status DC Acetaminophen (Tylenol) 650 mg PRN Q4HRS PRN PO MILD PAIN / TEMP Last administered on 10/13/16 00:17; Start 10/05/16 at 10:15; Stop 10/14/16 at 08:48; Status DC Prednisone (Prednisone) 20 mg 1X ONCE PO Last administered on 10/06/16 11:01; Start 10/06/16 at 10:30; Stop 10/06/16 at 10:31; Status DC Prednisone (Prednisone) 10 mg DAILY08 PO Last administered on 10/13/16 08:15; Start 10/07/16 at 08:00; Stop 10/13/16 at 08:29; Status DC Al Hydroxide/Mg Hydroxide (Mylanta Plus Xs) 30 ml PRN Q4HRS PRN PO HEARTBURN / GAS Last administered on 10/12/16 21:07; Start 10/07/16 at 08:45; Stop 10/14/16 at 08:48; Status DC Pantoprazole Sodium (Protonix) 40 mg DAILYAC PO Last administered on 10/13/16 05:08; Start 10/07/16 at 10:00; Stop 10/13/16 at 06:45; Status DC Furosemide 40 mg 40 mg DAILY PO Last administered on 10/08/16 08:42; Start 10/07 at 10:00; Stop 10/08/16 at 08:56; Status DC Sodium Chloride (Iv Sodium Chloride 0.45%) 1,000 ml @ 60 mls/hr CONT PRN IV . ; Start 10/08/16 at 09:00; Stop 10/08/16 at 16:06; Status DC Bisacodyl 10 mg 10 mg 1X ONCE [place] Last administered on 10/08/16 10:11; Start at 09:30; Stop 10/08/16 at 09:31; Status DC Sodium Chloride (Iv Sodium Chloride 0.45%) 1,000 ml @ 60 mls/hr [id number] IV Last administered on 10/09/16 02:52; Start 10/08/16 at 10:15; Stop 10/09/16 at 12: 00; Status DC Cefpodoxime Proxetil (Vantin) 200 mg BID PO ; Start 10/09/16 at 11:00; Stop at 12:08; Status DC Cefpodoxime Proxetil (Vantin) 100 mg BID PO Last administered on 10/13/16 08:16 ; Start 10/09/16 at 21:00; Stop 10/13/16 at 08:29; Status DC Ondansetron HCl (Zofran) 4 mg STK-MED ONCE .ROUTE Last administered on 01:24; Start 10/13/16 at 01:19; Stop 10/13/16 at 01:20; Status DC Ondansetron HCl (Zofran) 4 mg PRN Q6HRS PRN IV NAUSEA/VOMITING Last administered on 10/20/16 22:05; Start 10/13/16 at 02:00 Pantoprazole Sodium 40 mg 40 mg DAILYAC IVP Last administered on 10/19/16 08: 30; Start 10/13/16 at 07:30 Dextrose/Sodium Chloride (Iv D5% - NS) 1,000 ml @ 60 mls/hr [id number] IV Last administered on 10/13/16 09:25; Start 10/13/16 at 08:30; Stop 10/13/16 at 11:01; Status DC Sodium Polystyrene Sulfonate 15 gm 15 gm 1X ONCE PO Last administered on 09:26; Start 10/13/16 at 08:30; Stop 10/13/16 at 08:31; Status DC Piperacillin Sod/ Tazobactam Sod 3.375 gm/Sodium Chloride 50 ml @ 100 mls/hr Q6HRS IV Last administered on 10/19/16 12:42; Start 10/13/16 at 09:00; Stop at 15:06; Status DC Dextrose/Sodium Chloride (Iv D5% - 1/2 NS) 1,000 ml @ 50 mls/hr Q20H IV Last administered on 10/17/16 00:16; Start 10/13/16 at 11:00; Stop 10/17/16 at 12:23 ; Status DC Ondansetron HCl (Zofran) 4 mg PRN Q6HRS PRN IV Nausea 1ST CHOICE; Start at 12:30; Stop 10/14/16 at 11:07; Status DC Fentanyl Citrate (Fentanyl 2ml Vial) 25 mcg PRN Q5MIN PRN IV MILD PAIN; Start 10/13/16 at 12:30; Stop 10/14/16 at 11:04; Status DC Fentanyl Citrate (Fentanyl 2ml Vial) 50 mcg PRN Q5MIN PRN IV MODERATE PAIN; Start 10/13/16 at 12:30; Stop 10/14/16 at 11:04; Status DC Morphine Sulfate 1 mg 1 mg PRN Q10MIN PRN IV SEVERE PAIN; Start 10/13/16 at 12: 30; Stop 10/14/16 at 11:00; Status DC Lactated Ringer's (Iv Lactated Ringers) 1,000 ml @ 0 mls/hr Q0M IV ; Start 10/13 at 12:17; Stop 10/14/16 at 00:16; Status DC Lidocaine HCl 2 ml 1X PRN PRN ID IV START; Start 10/13/16 at 12:30; Stop at 16:03; Status DC Hydromorphone HCl (Dilaudid) 0.5 mg PRN Q10MIN PRN IV SEV PAIN,Second choice; Start 10/13/16 at 12:30; Stop 10/14/16 at 11:04; Status DC Prochlorperazine Edisylate (Compazine) 5 mg PACU PRN PRN IV NAUSEA; Start at 12:30; Stop 10/14/16 at 11:00; Status DC Fentanyl Citrate (Fentanyl 2ml Vial) 50 mcg PRN Q5MIN PRN IV Acute Pain Last administered on 10/14/16t 10:04; Start 10/13/16 at 13:00; Stop 10/14/16 at 11:04 ; Status DC Morphine Sulfate 4 mg PRN Q10MIN PRN IV Moderate Pain; Start 10/13/16 at 13:00; Stop 10/14/16 at 11:00; Status DC Hydromorphone HCl (Dilaudid) 0.4 mg PRN Q10MIN PRN IV Moderate to severe pain; Start 10/13/16 at 13:00; Stop 10/14/16 at 11:04; Status DC Meperidine HCl (Demerol) 12.5 mg PRN Q5MIN PRN IV SHIVERING; Start 10/13/16 at 13:00; Stop 10/14/16 at 11:00; Status DC Prochlorperazine Edisylate (Compazine) 5 mg PRN Q6HRS PRN IV Nausea/Vomiting, 1st Choice; Start 10/13/16 at 13:00; Stop 10/14/16 at 11:00; Status DC Diphenhydramine HCl (Benadryl) 12.5 mg PRN Q2HR PRN IV ITCHING; Start 10/13/16 at 13:00; Stop 10/14/16 at 11:00; Status DC Midazolam HCl (Versed) 2 mg PRN 1X PRN IV PRIOR TO PROCEDURE; Start 10/13/16 at 13:00; Stop 10/14/16 at 11:07; Status DC Midazolam HCl (Versed) 1 mg PRN 1X PRN IV PRIOR TO PROCEDURE; Start 10/13/16 at 13:00; Stop 10/14/16 at 11:07; Status DC Fentanyl Citrate (Fentanyl 2ml Vial) 25 mcg PRN Q5MIN PRN IV X 2 DOSES FOR PAIN ; Start 10/13/16 at 13:00; Stop 10/14/16 at 11:04; Status DC Fentanyl Citrate 50 mcg 50 mcg PRN Q5MIN PRN IV X 2 DOSES FOR PAIN; Start at 13:00; Stop 10/14/16 at 11:04; Status DC Lactated Ringer's (Iv Lactated Ringers) 1,000 ml @ 125 mls/hr Q8H IV Last administered on 10/13/16 13:30; Start 10/13/16 at 12:48; Stop 10/14/16 at 00:47; Status DC Lidocaine HCl 2 ml 1X PRN PRN ID IV START; Start 10/13/16 at 13:00; Stop at 16:03; Status DC Fentanyl Citrate (Fentanyl 2ml Vial) 25 mcg PRN Q2HR PRN IV PAIN MOD TO SEV; Start 10/13/16 at 20:30; Stop 10/14/16 at 14:15; Status DC Fentanyl Citrate (Fentanyl 2ml Vial) 50 mcg PRN Q2HR PRN IV PAIN MOD TO SEV Last administered on 10/14/16 12:02; Start 10/13/16 at 20:30; Stop 10/14/16 at 14:15; Status DC Enoxaparin Sodium (Lovenox 40mg Syringe) 40 mg Q24H SQ Last administered on 08:46; Start 10/14/16 at 09:00 Fentanyl Citrate 100 mcg 100 mcg STK-MED ONCE .ROUTE ; Start 10/13/16 at 13:27; Stop 10/14/16 at 07:31; Status DC Propofol (Diprivan) 20 ml @ As Directed STK-MED ONCE IV ; Start 10/13/16 at 13:27 ; Stop 10/14/16 at 07:31; Status DC Rocuronium Quentin (Zemuron) 50 mg STK-MED ONCE .ROUTE ; Start 10/13/16 at 13:27 ; Stop 10/14/16 at 07:31; Status DC Lidocaine HCl 100 mg STK-MED ONCE .ROUTE ; Start 10/13/16 at 13:27; Stop at 07:31; Status DC Fentanyl Citrate (Fentanyl 2ml Vial) 100 mcg STK-MED ONCE .ROUTE ; Start at 13:27; Stop 10/14/16 at 07:31; Status DC Ephedrine Sulfate (Akovaz) 50 mg STK-MED ONCE .ROUTE ; Start 10/13/16 at 14:00; Stop 10/14/16 at 07:31; Status DC Phenylephrine HCl 1 mg STK-MED ONCE IV ; Start 10/13/16 at 14:25; Stop 10/14/16 at 07:31; Status DC Desflurane (Suprane) 60 ml STK-MED ONCE IH ; Start 10/13/16 at 14:25; Stop at 07:31; Status DC Dexamethasone Sodium Phosphate (Decadron) 20 mg STK-MED ONCE .ROUTE ; Start 10/13 at 14:25; Stop 10/14/16 at 07:31; Status DC Ondansetron HCl (Zofran) 4 mg STK-MED ONCE .ROUTE ; Start 10/13/16 at 14:25; Stop 10/14/16 at 07:31; Status DC Famotidine (Pepcid) 20 mg STK-MED ONCE .ROUTE ; Start 10/13/16 at 14:25; Stop 07/21 at 07:31; Status DC Rocuronium Quentin (Zemuron) 50 mg STK-MED ONCE .ROUTE ; Start 10/13/16 at 16:19 ; Stop 10/14/16 at 07:31; Status DC Fentanyl Citrate (Fentanyl 2ml Vial) 100 mcg STK-MED ONCE .ROUTE ; Start at 16:21; Stop 10/14/16 at 07:31; Status DC Desflurane (Suprane) 90 ml STK-MED ONCE IH ; Start 10/13/16 at 16:53; Stop at 07:31; Status DC Glycopyrrolate (Robinul) 1 mg STK-MED ONCE .ROUTE ; Start 10/13/16 at 17:00; Stop 10/14/16 at 07:31; Status DC Neostigmine Methylsulfate 5 mg STK-MED ONCE .ROUTE ; Start 10/13/16 at 17:00; Stop 10/14/16 at 07:31; Status DC Phenylephrine HCl 1 mg STK-MED ONCE IV ; Start 10/13/16 at 18:14; Stop 10/14/16 at 07:31; Status DC Fentanyl Citrate (Fentanyl 2ml Vial) 100 mcg STK-MED ONCE .ROUTE ; Start at 18:20; Stop 10/14/16 at 07:31; Status DC Fentanyl Citrate 100 mcg 100 mcg STK-MED ONCE .ROUTE ; Start 10/13/16 at 19:17; Stop 10/14/16 at 07:31; Status DC Levetiracetam 500 mg/Sodium Chloride 105 ml @ 400 mls/hr Q12HR IV Last administered on 10/20/16 22:24; Start 10/14/16 at 09:00 Amino Acids/ Glycerin/ Electrolytes (Procalamine) 1,000 ml @ 80 mls/hr [id number] IV Last administered on 10/16/16 09:16; Start 10/14/16 at 11:15; Stop at 21:59; Status DC Morphine Sulfate 2 mg PRN Q4HRS PRN IV MODERATE PAIN Last administered on 06:05; Start 10/14/16 at 14:15 Morphine Sulfate 4 mg PRN Q4HRS PRN IV SEVERE PAIN Last administered on 02:48; Start 10/14/16 at 14:30 Info 1 each 1 each PRN DAILY PRN MC SEE COMMENTS Last administered on 13:27; Start 10/16/16 at 11:30 Sodium Chloride/ Potassium Chloride/ Potassium Phosphate/ Magnesium Sulfate/ Calcium Gluconate/ Multivitamins/ Minerals/Chromium/ Copper/Manganese/ Seleni/Zn /Total Parenteral Nutrition/Amino Acids/Dextrose/ Fat Emulsion Intravenous ( Sodium Chloride/ Potassium Phospha... 1,512 ml @ 63 mls/hr TPN CONT IV ; Start 10/16/16 at 22:00; Stop 10/17/16 at 12:50; Status DC Lidocaine/Sodium Bicarbonate 20 ml 20 ml STK-MED ONCE IJ ; Start 10/17/16 at 08: 20; Stop 10/17/16 at 08:21; Status DC Heparin Sodium/ Sodium Chloride 500 ml @ As Directed STK-MED ONCE .ROUTE ; Start 10/17/16 at 08:20; Stop 10/17/16 at 08:21; Status DC Lidocaine/Sodium Bicarbonate (Buffered Lidocaine 1%) 3 ml 1X ONCE IJ Last administered on 10/17/16 08:30; Start 10/17/16 at 08:30; Stop 10/17/16 at 08:31 ; Status DC Heparin Sodium/ Sodium Chloride 60 unit 1X ONCE IV Last administered on 08:30; Start 10/17/16 at 08:30; Stop 10/17/16 at 08:31; Status DC Iohexol (Omnipaque 300 Mg/ml) 50 ml STK-MED ONCE .ROUTE ; Start 10/17/16 at 09: 02; Stop 10/17/16 at 09:03; Status DC Iohexol (Omnipaque 300 Mg/ml) 43 ml 1X ONCE IART Last administered on 08:45; Start 10/17/16 at 09:30; Stop 10/17/16 at 09:33; Status DC Info (Do NOT chart on this entry -- for MONITORING) 1 each PRN DAILY PRN MC SEE COMMENTS; Start 10/17/16 at 09:45; Stop 10/19/16 at 09:44; Status DC Clonidine HCl (Catapres Tts-2) 1 patch WEEKLY TD Last administered on 11:58; Start 10/17/16 at 11:00 Labetalol HCl 20 mg 20 mg PRN Q6HRS PRN IVP HYPERTENSION, SEE COMMENTS; Start 10/17/16 at 10:30 Sodium Chloride 1,000 ml @ 60 mls/hr [id number] IV Last administered on 06:32; Start 10/17/16 at 12:30; Stop 10/19/16 at 10:06; Status DC Sodium Chloride 90 meq/Potassium Chloride 50 meq/ Potassium Phosphate 13.6 mmol/ Magnesium Sulfate 10 meq/ Calcium Gluconate 10 meq/ Multivitamins/ Minerals 10 ml/ Chromium/Copper/ Manganese/Seleni/ Zn 1 ml/Total Parenteral Nutrition/Amino Acids/Dextrose/ Fat Emulsion Intravenous 1,512 ml @ 63 mls/hr TPN CONT IV Last administered on 10/17/16 21:09; Start 10/17/16 at 22:00; Stop 10/18/16 at 21:59; Status DC Sodium Chloride/ Potassium Chloride/ Potassium Phosphate/ Magnesium Sulfate/ Calcium Gluconate/ Multivitamins/ Minerals/Chromium/ Copper/Manganese/ Seleni/Zn /Total Parenteral Nutrition/Amino Acids/Dextrose/ Fat Emulsion Intravenous ( Sodium Chloride/ Potassium Phospha... 1,512 ml @ 63 mls/hr TPN CONT IV Last administered on 10/18/16 21:24; Start 10/18/16 at 22:00; Stop 10/19/16 at 21:59 ; Status DC Furosemide 20 mg 20 mg 1X ONCE IVP Last administered on 10/19/16 11:01; Start 10/19/16 at 10:30; Stop 10/19/16 at 10:31; Status DC Sodium Chloride 90 meq/Sodium Acetate 40 meq/ Potassium Chloride 50 meq/ Potassium Phosphate 13.6 mmol/Magnesium Sulfate 10 meq/ Calcium Gluconate 10 meq / Multivitamins/ Minerals 10 ml/ Chromium/Copper/ Manganese/Seleni/ Zn 1 ml/ Total Parenteral Nutrition/Amino Acids/Dextro... 1,920 ml @ 80 mls/hr TPN CONT IV Last administered on 10/19/16 22:29; Start 10/19/16 at 22:00; Stop at 21:59; Status DC Sodium Chloride 1,000 ml @ 45 mls/hr [id number] IV Last administered on 22:24; Start 10/20/16 at 09:00 Magnesium Sulfate/ Dextrose 50 ml @ 25 mls/hr PRN DAILY PRN IV for Mag < 1.7 on am labs; Start 10/20/16 at 13:15 Sodium Chloride/ Sodium Acetate/ Potassium Chloride/ Potassium Phosphate/ Magnesium Sulfate/ Calcium Gluconate/ Multivitamins/ Minerals/Chromium/ Copper/ Manganese/ Seleni/Zn/Total Parenteral Nutrition/Amino Acids/Dextrose/ Fat Emulsion Intravenous (Sodium Chloride/ Potass... 1,920 ml @ 80 mls/hr TPN CONT IV Last administered on 10/20/16 22:23; Start 10/20/16 at 22:00; Stop at 21:59 Active Scripts Active Hydrocodone-Apap 5-325 (Hydrocodone Bit/Acetaminophen) 1 Each Tablet 1 Tab PO PRN Q6HRS PRN Metoprolol Succinate ( Xl ) (Metoprolol Succinate) 25 Mg Tab.er.24h 25 Mg PO DAILY Reported Flomax (Tamsulosin Hcl) 0.4 Mg Cap.er.24h 1 Cap PO QHS Tramadol Hcl 100 Mg Tab.er.24h 100 Mg PO QID Levetiracetam 250 Mg Tablet 250 Mg PO BID Dulcolax (Bisacodyl) 10 Mg Supp.rect 10 Mg RC PRN DAILY PRN Maalox Advanced Suspension (Mag Hydrox/Al Hydrox/Simeth) 770 Ml Oral.susp 30 Ml PO Q2HR PRN Milk Of Magnesia (Magnesium Hydroxide) 400 Mg/5 Ml Oral.susp 30 Ml PO DAILY PRN Robitussin Cough-Chest Dm Liq (Guaifenesin/Dextromethorphan) 118 Ml Liquid 10 Ml PO Q4HRS PRN Trazodone Hcl 50 Mg Tablet 1 Tab PO QHS Tylenol (Acetaminophen) 325 Mg Tablet 650 Mg PO Q6HRS PRN Pramipexole Dihydrochloride (Pramipexole Di-Hcl) 0.5 Mg Tablet 0.5 Mg PO TID Simvastatin 20 Mg Tablet 1 Tab PO QHS Levothyroxine Sodium 100 Mcg Tablet 1 Tab PO DAILY Gabapentin 800 Mg Tablet 800 Mg PO QID Sinemet 25-100 Mg Tablet (Carbidopa/Levodopa) 1 Each Tablet 2 Tab PO TID Aspirin 81 Mg Tab.chew 1 Tab PO DAILY Vitals/I & O Vital Sign - Last 24 Hours 10/20/16 10/20/16 10/20/16 10/20/16 11:00 14:03 14:40 15:00 Temp 98.1 98.4 98.1 98.4 Pulse 70 76 Resp 16 18 B/P 164/68 151/70 Pulse Ox 93 93 94 94 O2 Delivery Nasal Cannula Nasal Cannula Nasal Cannula Nasal Cannula O2 Flow Rate 3.0 3.0 3.0 3.0 10/20/16 10/20/16 10/20/16 10/20/16 17:37 19:50 19:55 23:47 Temp 97.9 100.0 97.9 100.0 Pulse 82 94 Resp 16 16 B/P 149/66 156/75 Pulse Ox 94 92 93 O2 Delivery Nasal Cannula Nasal Cannula Nasal Cannula Nasal Cannula O2 Flow Rate 3.0 3.0 3.0 3.0 10/21/16 10/21/16 10/21/16 03:53 07:00 07:20 Temp 97.7 97.7 97.7 97.7 Pulse 83 80 Resp 16 18 B/P 145/66 150/62 Pulse Ox 95 95 O2 Delivery Nasal Cannula Nasal Cannula Nasal Cannula O2 Flow Rate 3.0 3.0 3.0 Intake and Output 10/20/16 10/20/16 10/21/16 15:00 23:00 07:00 Intake Total 1630 ml 0 ml Output Total 400 ml 3 ml 1800 ml Balance -400 ml 1627 ml -1800 ml RICHARD [place] MD Oct 21, 2016 09:24
[2016-10-21] MEDS: LEVETIRACETAM 500 MG in IV NORMAL SALINE 100ML 100 ML IV SCH ×2 (10:25→22:27)
[2016-10-21] MEDS: PANTOPRAZOLE IV PUSH 40 MG VIAL. IVP SCH (10:25)
[2016-10-21] MEDS: ENOXAPARIN 40 MG/0.4 ML DISP.SYRIN. SQ SCH (10:26)
--- NOTE | 2016-10-21 10:35 | PDOC ---
PAZ MONTEJO CNA 10/21/16 1035: SURGICAL PROGRESS NOTE Subjective + bm yesterday no nausea or emesis Vital Signs Vital Signs Date Time Temp Pulse Resp B/P Pulse Ox O2 Delivery O2 Flow Rate FiO2 10/21/16 10:27 95 Nasal Cannula 3.0 10/21/16 07:00 97.7 80 18 150/62 97.7 I&O Intake and Output 10/21/16 07:00 Intake Total 1630 ml Output Total 2203 ml Balance -573 ml Intake Oral 0 ml IV Total 1630 ml Output Urine Total 2203 ml General: Alert, Oriented X3, Cooperative, No acute distress Abdomen: Soft, Other (ND, NTTP) Labs Laboratory Tests Test 10/20/16 06:35 10/21/16 05:00 White Blood Count 8.1x10^3/uL (4.0-11.0) 6.3x10^3/uL (4.0-11.0) Red Blood Count 2.47x10^6/uL (4.30-5.70) 2.27x10^6/uL (4.30-5.70) Hemoglobin 7.9g/dL (13.0-17.5) 7.3g/dL (13.0-17.5) Hematocrit 24.8% (39.0-53.0) 22.5% (39.0-53.0) Mean Corpuscular Volume 100fL (79-100) 99fL (79-100) Mean Corpuscular Hemoglobin 32pg (25-35) 32pg (25-35) Mean Corpuscular Hemoglobin Concent 32g/dL (31-37) 32g/dL (31-37) Red Cell Distribution Width 15.5% (11.5-14.5) 15.2% (11.5-14.5) Platelet Count 250x10^3/uL (140-400) 226x10^3/uL (140-400) Neutrophils (%) (Auto) 68% (31-73) 65% (31-73) Lymphocytes (%) (Auto) 20% (24-48) 21% (24-48) Monocytes (%) (Auto) 9% (0-9) 10% (0-9) Eosinophils (%) (Auto) 3% (0-3) 4% (0-3) Basophils (%) (Auto) 1% (0-3) 0% (0-3) Neutrophils # (Auto) 5.4x10^3uL (1.8-7.7) 4.1x10^3uL (1.8-7.7) Lymphocytes # (Auto) 1.6x10^3/uL (1.0-4.8) 1.3x10^3/uL (1.0-4.8) Monocytes # (Auto) 0.7x10^3/uL (0.0-1.1) 0.6x10^3/uL (0.0-1.1) Eosinophils # (Auto) 0.2x10^3/uL (0.0-0.7) 0.2x10^3/uL (0.0-0.7) Basophils # (Auto) 0.1x10^3/uL (0.0-0.2) 0.0x10^3/uL (0.0-0.2) Sodium Level 141mmol/L (136-145) 138mmol/L (136-145) Potassium Level 4.3mmol/L (3.5-5.1) 4.3mmol/L (3.5-5.1) Chloride Level 109mmol/L (98-107) 106mmol/L (98-107) Carbon Dioxide Level 25mmol/L (21-32) 24mmol/L (21-32) Anion Gap 7 (6-14) 8 (6-14) Blood Urea Nitrogen 21mg/dL (8-26) 17mg/dL (8-26) Creatinine 1.7mg/dL (0.7-1.3) 1.3mg/dL (0.7-1.3) Estimated GFR (Cockcroft-Gault) 38.5 52.5 BUN/Creatinine Ratio 12 (6-20) Glucose Level 128mg/dL (70-99) 119mg/dL (70-99) Calcium Level 8.6mg/dL (8.5-10.1) 8.2mg/dL (8.5-10.1) Phosphorus Level 3.2mg/dL (2.6-4.7) 3.0mg/dL (2.6-4.7) Magnesium Level 2.2mg/dL (1.8-2.4) Total Bilirubin 0.5mg/dL (0.2-1.0) Aspartate Amino Transf (AST/SGOT) 59U/L (15-37) Alanine Aminotransferase (ALT/SGPT) 53U/L (16-63) Alkaline Phosphatase 88U/L (46-116) Total Protein 6.4g/dL (6.4-8.2) Albumin 1.9g/dL (3.4-5.0) 1.8g/dL (3.4-5.0) Albumin/Globulin Ratio 0.4 (1.0-1.7) Laboratory Tests Test 10/21/16 05:00 White Blood Count 6.3x10^3/uL (4.0-11.0) Red Blood Count 2.27x10^6/uL (4.30-5.70) Hemoglobin 7.3g/dL (13.0-17.5) Hematocrit 22.5% (39.0-53.0) Mean Corpuscular Volume 99fL (79-100) Mean Corpuscular Hemoglobin 32pg (25-35) Mean Corpuscular Hemoglobin Concent 32g/dL (31-37) Red Cell Distribution Width 15.2% (11.5-14.5) Platelet Count 226x10^3/uL (140-400) Neutrophils (%) (Auto) 65% (31-73) Lymphocytes (%) (Auto) 21% (24-48) Monocytes (%) (Auto) 10% (0-9) Eosinophils (%) (Auto) 4% (0-3) Basophils (%) (Auto) 0% (0-3) Neutrophils # (Auto) 4.1x10^3uL (1.8-7.7) Lymphocytes # (Auto) 1.3x10^3/uL (1.0-4.8) Monocytes # (Auto) 0.6x10^3/uL (0.0-1.1) Eosinophils # (Auto) 0.2x10^3/uL (0.0-0.7) Basophils # (Auto) 0.0x10^3/uL (0.0-0.2) Sodium Level 138mmol/L (136-145) Potassium Level 4.3mmol/L (3.5-5.1) Chloride Level 106mmol/L (98-107) Carbon Dioxide Level 24mmol/L (21-32) Anion Gap 8 (6-14) Blood Urea Nitrogen 17mg/dL (8-26) Creatinine 1.3mg/dL (0.7-1.3) Estimated GFR (Cockcroft-Gault) 52.5 Glucose Level 119mg/dL (70-99) Calcium Level 8.2mg/dL (8.5-10.1) Phosphorus Level 3.0mg/dL (2.6-4.7) Albumin 1.8g/dL (3.4-5.0) Problem List Problems Medical Problems: (1) SBO (small bowel obstruction) Status: Acute Assessment/Plan s/p xlap advance diet as tolerated Problems: KENDRICK CULVER MD 10/21/16 1406: SURGICAL PROGRESS NOTE Assessment/Plan Reviewed, agree with above Problems: PAZ MONTEJO APRN Oct 21, 2016 10:35 KENDRICK CULVER MD Oct 21, 2016 14:06
[2016-10-21 11:00] VITALS: BP 177/83
[2016-10-21] MEDS: TPN PER PHARMACY MC PRN (11:09)
--- NOTE | 2016-10-21 11:53 | PDOC ---
Subjective: Subjective: BM yesterday, no n/v, abd feels better. Objective: Vital Signs: Vital Signs Date Time Temp Pulse Resp B/P Pulse Ox O2 Delivery O2 Flow Rate FiO2 10/21/16 10:27 95 Nasal Cannula 3.0 10/21/16 07:00 97.7 80 18 150/62 97.7 Labs: Laboratory Tests Test 10/21/16 05:00 White Blood Count 6.3x10^3/uL Red Blood Count 2.27x10^6/uL Hemoglobin 7.3g/dL Hematocrit 22.5% Mean Corpuscular Volume 99fL Mean Corpuscular Hemoglobin 32pg Mean Corpuscular Hemoglobin Concent 32g/dL Red Cell Distribution Width 15.2% Platelet Count 226x10^3/uL Neutrophils (%) (Auto) 65% Lymphocytes (%) (Auto) 21% Monocytes (%) (Auto) 10% Eosinophils (%) (Auto) 4% Basophils (%) (Auto) 0% Neutrophils # (Auto) 4.1x10^3uL Lymphocytes # (Auto) 1.3x10^3/uL Monocytes # (Auto) 0.6x10^3/uL Eosinophils # (Auto) 0.2x10^3/uL Basophils # (Auto) 0.0x10^3/uL Sodium Level 138mmol/L Potassium Level 4.3mmol/L Chloride Level 106mmol/L Carbon Dioxide Level 24mmol/L Anion Gap 8 Blood Urea Nitrogen 17mg/dL Creatinine 1.3mg/dL Estimated GFR (Cockcroft-Gault) 52.5 Glucose Level 119mg/dL Calcium Level 8.2mg/dL Phosphorus Level 3.0mg/dL Albumin 1.8g/dL Imaging: Acute Abd Series 10/20/16 IMPRESSION: Volume loss at the left lung base compatible with pleural fluid and atelectasis similar to slightly worse than on the study one week earlier. Mild dilatation of large and small bowel loops, slightly improved relative to the previous exam, suggesting mild ileus. PE: GEN: NAD, up to chair LUNGS: CTAB anteriorly, nasal cannula HEART: RRR ABD: BS+, NT NEURO/PSYCH: A & O 3 A/P: S/p exp lap 10/13/15 w/ CONG, post-op ileus and recent SBO -on TPN, had BM yesterday, to try clears Anemia -drifting Hgb, on IV PPI -- Note plans to try clears. Continue PPI. GAYLA CLEMENTE Oct 21, 2016 11:53
[2016-10-21] MEDS: HYDROCODONE/APAP 5/325MG TABLET. PO PRN ×3 (14:34→23:51)
[2016-10-21 15:00] VITALS: BP 155/77
[2016-10-21 19:00] VITALS: BP 156/69
[2016-10-21] MEDS ORDERED: TOTAL PARENTERAL NUTRITION IV SCH ×11 (22:00)
[2016-10-21] MEDS ORDERED: DEXTROSE 70% IV SCH ×11 (22:00)
[2016-10-21] MEDS ORDERED: AMINO ACIDS IV SCH ×11 (22:00)
[2016-10-21] MEDS ORDERED: [UNRECOGNIZED DRUG - OTHER] IV SCH ×11 (22:00)
[2016-10-21 23:41] VITALS: BP 154/59
[2016-10-21] MEDS: ONDANSETRON PF 4 MG/2 ML VIAL. IV PRN (23:50)
[2016-10-22] VITALS (15 sets, daily range): BP systolic 133–200; BP diastolic 44–87
--- NOTE | 2016-10-22 00:54 | EKG ---
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
[2016-10-22] MEDS: MORPHINE SULFATE 4 MG/ML DISP.SYRIN. IV PRN ×4 (00:57→21:56)
[2016-10-22 01:20] LABS: BASO # 0.1 x10^3/uL (0.0-0.2); BASO % 1 % (0-3); EOS % 3 % (0-3); HEMATOCRIT 25.5 % (39.0-53.0); HEMOGLOBIN 8.2 g/dL (13.0-17.5); LYMPH # 1.4 x10^3/uL (1.0-4.8); LYMPH % 20 % (24-48); MEAN CORPUSCULAR HEMOGLOBIN 32 pg (25-35); MEAN CORPUSCULAR HGB CONC 32 g/dL (31-37); MEAN CORPUSCULAR VOLUME 98 fL (79-100); MONO % 6 % (0-9); NEUT % 70 % (31-73); PLATELET COUNT 259 x10^3/uL (140-400); RED CELL DISTRIBUTION WIDTH 15.2 % (11.5-14.5); WHITE BLOOD COUNT 6.9 x10^3/uL (4.0-11.0)
[2016-10-22 01:44] LABS: CALCIUM 8.5 mg/dL (8.5-10.1); CREATININE 1.3 mg/dL (0.7-1.3); GFR 52.5; PHOSPHORUS 2.9 mg/dL (2.6-4.7); POTASSIUM 4.6 mmol/L (3.5-5.1)
[2016-10-22] MEDS ORDERED: METOCLOPRAMIDE HCL 10 MG/2 ML VIAL. IV ONE (02:00)
[2016-10-22] MEDS ORDERED: FAMOTIDINE 20 MG/2 ML VIAL IVP ONE (02:30)
[2016-10-22] MEDS ORDERED: LORAZEPAM 2 MG/ML VIAL IV ONE (02:30)
[2016-10-22] MEDS: MORPHINE SULFATE 2 MG/ML DISP.SYRIN. IV PRN ×2 (02:35→05:33)
[2016-10-22] MEDS: ONDANSETRON PF 4 MG/2 ML VIAL. IV PRN ×2 (05:32→22:01)
[2016-10-22] MEDS: PANTOPRAZOLE IV PUSH 40 MG VIAL. IVP SCH (08:16)
[2016-10-22] MEDS: ENOXAPARIN 40 MG/0.4 ML DISP.SYRIN. SQ SCH (08:18)
[2016-10-22] MEDS: LEVETIRACETAM 500 MG in IV NORMAL SALINE 100ML 100 ML IV SCH ×2 (08:18→21:03)
--- NOTE | 2016-10-22 10:44 | PDOC ---
PROGRESS NOTES Subjective Subjective he had a rapid response with chest pain last night. nurse notes ekg showed no acute change but I cant download it now. troponin neg times 1 pain free now,. will order troponin now and consult dr. mercer. will order CT chest angiogram to rule out PE and aortic dissection if okay with fabrication inspector. blood pressure is high and will continue catapress patch and order prn iv hydralazine and has prn iv labetolol ordered already. he is npo. nurse notes no BM but he tells me he had one. he is passing flatus. he is npo. Objective Objective Vital Signs Date Time Temp Pulse Resp B/P Pulse Ox O2 Delivery O2 Flow Rate FiO2 10/22/16 09:00 20 Nasal Cannula 4.0 10/22/16 07:00 98.1 100 195/76 96 98.1 Intake and Output 10/22/16 07:00 Intake Total 3831 ml Output Total 900 ml Balance 2931 ml Intake Oral 300 ml IV Total 3531 ml Output Urine Total 900 ml Physical Exam Abdomen: Soft, Other (bowel sounds heard . obese) Heart: Regular rate, Normal S1, Normal S2 Extremities: No edema General: Alert HEENT: Atraumatic Lungs: Other (clear anteriorly) Neuro: Normal speech Psych/Mental Status: Mood NL Skin: No rashes Assessment Assessment Problems Medical Problems:Small-bowel obstruction resolved exploratory laparotomy 10/13/16. lysis of adhesions. bowel viable. post op ileus 2. Seizure disorder. 3. Parkinson's disease. 4. Hypothyroidism. 5. Peripheral neuropathy. 6. Hypertension. bp high 7. Chronic kidney disease stage III. klebsiella uti treated suspected gout synovitis resolved peripheral edema critical illness myopathy hematemesis once resolved chest pain (1) SBO (small bowel obstruction) Status: Acute Plan Plan of Care consult dr. mercer echocardiogram prn iv labetolol and start prn iv hydralazine continue catapress patch TPN troponin level npo ct chest angiogram if okay with fabrication inspector Comment Review of Relevant I have reviewed the following items [place] (where applicable) has been applied. Labs Laboratory Tests Test 10/21/16 05:00 10/22/16 01:12 White Blood Count 6.3x10^3/uL (4.0-11.0) 6.9x10^3/uL (4.0-11.0) Red Blood Count 2.27x10^6/uL (4.30-5.70) 2.60x10^6/uL (4.30-5.70) Hemoglobin 7.3g/dL (13.0-17.5) 8.2g/dL (13.0-17.5) Hematocrit 22.5% (39.0-53.0) 25.5% (39.0-53.0) Mean Corpuscular Volume 99fL (79-100) 98fL (79-100) Mean Corpuscular Hemoglobin 32pg (25-35) 32pg (25-35) Mean Corpuscular Hemoglobin Concent 32g/dL (31-37) 32g/dL (31-37) Red Cell Distribution Width 15.2% (11.5-14.5) 15.2% (11.5-14.5) Platelet Count 226x10^3/uL (140-400) 259x10^3/uL (140-400) Neutrophils (%) (Auto) 65% (31-73) 70% (31-73) Lymphocytes (%) (Auto) 21% (24-48) 20% (24-48) Monocytes (%) (Auto) 10% (0-9) 6% (0-9) Eosinophils (%) (Auto) 4% (0-3) 3% (0-3) Basophils (%) (Auto) 0% (0-3) 1% (0-3) Neutrophils # (Auto) 4.1x10^3uL (1.8-7.7) 4.9x10^3uL (1.8-7.7) Lymphocytes # (Auto) 1.3x10^3/uL (1.0-4.8) 1.4x10^3/uL (1.0-4.8) Monocytes # (Auto) 0.6x10^3/uL (0.0-1.1) 0.4x10^3/uL (0.0-1.1) Eosinophils # (Auto) 0.2x10^3/uL (0.0-0.7) 0.2x10^3/uL (0.0-0.7) Basophils # (Auto) 0.0x10^3/uL (0.0-0.2) 0.1x10^3/uL (0.0-0.2) Sodium Level 138mmol/L (136-145) 141mmol/L (136-145) Potassium Level 4.3mmol/L (3.5-5.1) 4.6mmol/L (3.5-5.1) Chloride Level 106mmol/L (98-107) 107mmol/L (98-107) Carbon Dioxide Level 24mmol/L (21-32) 26mmol/L (21-32) Anion Gap 8 (6-14) 8 (6-14) Blood Urea Nitrogen 17mg/dL (8-26) 15mg/dL (8-26) Creatinine 1.3mg/dL (0.7-1.3) 1.3mg/dL (0.7-1.3) Estimated GFR (Cockcroft-Gault) 52.5 52.5 Glucose Level 119mg/dL (70-99) 125mg/dL (70-99) Calcium Level 8.2mg/dL (8.5-10.1) 8.5mg/dL (8.5-10.1) Phosphorus Level 3.0mg/dL (2.6-4.7) 2.9mg/dL (2.6-4.7) Albumin 1.8g/dL (3.4-5.0) 2.0g/dL (3.4-5.0) Troponin I Quantitative 0.023ng/mL (0.000-0.055) Laboratory Tests Test 10/22/16 01:12 White Blood Count 6.9x10^3/uL (4.0-11.0) Red Blood Count 2.60x10^6/uL (4.30-5.70) Hemoglobin 8.2g/dL (13.0-17.5) Hematocrit 25.5% (39.0-53.0) Mean Corpuscular Volume 98fL (79-100) Mean Corpuscular Hemoglobin 32pg (25-35) Mean Corpuscular Hemoglobin Concent 32g/dL (31-37) Red Cell Distribution Width 15.2% (11.5-14.5) Platelet Count 259x10^3/uL (140-400) Neutrophils (%) (Auto) 70% (31-73) Lymphocytes (%) (Auto) 20% (24-48) Monocytes (%) (Auto) 6% (0-9) Eosinophils (%) (Auto) 3% (0-3) Basophils (%) (Auto) 1% (0-3) Neutrophils # (Auto) 4.9x10^3uL (1.8-7.7) Lymphocytes # (Auto) 1.4x10^3/uL (1.0-4.8) Monocytes # (Auto) 0.4x10^3/uL (0.0-1.1) Eosinophils # (Auto) 0.2x10^3/uL (0.0-0.7) Basophils # (Auto) 0.1x10^3/uL (0.0-0.2) Sodium Level 141mmol/L (136-145) Potassium Level 4.6mmol/L (3.5-5.1) Chloride Level 107mmol/L (98-107) Carbon Dioxide Level 26mmol/L (21-32) Anion Gap 8 (6-14) Blood Urea Nitrogen 15mg/dL (8-26) Creatinine 1.3mg/dL (0.7-1.3) Estimated GFR (Cockcroft-Gault) 52.5 Glucose Level 125mg/dL (70-99) Calcium Level 8.5mg/dL (8.5-10.1) Phosphorus Level 2.9mg/dL (2.6-4.7) Troponin I Quantitative 0.023ng/mL (0.000-0.055) Albumin 2.0g/dL (3.4-5.0) Microbiology 10/13/16 Blood Culture - Final, Complete NO GROWTH AFTER 5 DAYS 10/13/16 Urine Culture - Final, Complete 10/13/16 Urine Culture Result 1 (MANDEEP) - Final, Complete Medications Current Medications Fentanyl Citrate 50 mcg 50 mcg PRN Q15MIN PRN IV PAIN GREATER THAN 3/10 Last administered on 09/30/16at 19:35; Start 09/30/16 at 17:30; Stop 10/01/16 at 04 :24; Status DC Lactated Ringer's (Iv Lactated Ringers) 1,000 ml @ 100 mls/hr Q10H IV Last administered on 09/30/16at 19:35; Start 09/30/16 at 17:28; Stop 10/01/16 at 03 :27; Status DC Ondansetron HCl (Zofran) 4 mg 1X ONCE IV Last administered on 09/30/16at 17:44 ; Start 09/30/16 at 17:30; Stop 09/30/16 at 17:32; Status DC Fentanyl Citrate (Fentanyl 2ml Vial) 50 mcg 1X ONCE IV ; Start 09/30/16 at 19: 15; Stop 10/01/16 at 04:24; Status DC Ondansetron HCl (Zofran) 4 mg PRN Q8HRS PRN IV NAUSEA/VOMITING Last administered on 09/30/16at 22:07; Start 09/30/16 at 19:15; Stop 10/01/16 at 19 :14; Status DC Fentanyl Citrate 50 mcg 50 mcg PRN Q2HR PRN IV PAIN Last administered on at 16:54; Start 09/30/16 at 19:15; Stop 10/01/16 at 19:14; Status DC Sodium Chloride 1,000 ml @ 100 mls/hr Q10H IV ; Start 09/30/16 at 19:30; Stop 10/01/16 at 04:24; Status DC Potassium Chloride/Dextrose/ Sod Cl (KCl 20 Meq In D5W-1/2 NS) 1,000 ml @ 125 mls/hr Q8H IV Last administered on 10/04/16at 06:02; Start 09/30/16 at 20:00; Stop 10/04/16 at 10:21; Status DC Enoxaparin Sodium 40 mg 40 mg Q24H SQ Last administered on 10/13/16 08:14; Start 10/01/16 at 09:00; Stop 10/13/16 at 08:36; Status DC Levetiracetam/ Sodium Chloride (Keppra/Iv Sodium Chloride 0.9% 100ml) 105 ml @ 400 mls/hr Q12HR IV Last administered on 10/05/16 09:30; Start 09/30/16 at 21: 00; Stop 10/05/16 at 10:24; Status DC Morphine Sulfate 2 mg PRN Q4HRS PRN IV SEVERE PAIN Last administered on 10:13; Start 09/30/16 at 19:30; Stop 10/05/16 at 10:24; Status DC Acetaminophen (Tylenol) 650 mg PRN Q6HRS PRN CA MILD PAIN / TEMP; Start at 19:30; Stop 10/05/16 at 10:24; Status DC Ondansetron HCl (Zofran) 4 mg PRN Q6HRS PRN IV NAUSEA/VOMITING Last administered on 10/07/16 08:28; Start 09/30/16 at 19:30; Stop 10/09/16 at 12:08 ; Status DC Benzocaine (Hurricaine One) 1 spray STK-MED ONCE .ROUTE ; Start 09/30/16 at 19: 51; Stop 09/30/16 at 19:52; Status DC Morphine Sulfate 4 mg PRN Q4HRS PRN IV PAIN Last administered on 10/05/16 08:08 ; Start 10/01/16 at 20:00; Stop 10/05/16 at 10:24; Status DC Clonidine HCl 1 patch 1 patch WEEKLY TD Last administered on 10/03/16at 12:30; Start 10/03/16 at 10:00; Stop 10/05/16 at 10:24; Status DC Piperacillin Sod/ Tazobactam Sod/ Sodium Chloride (Zosyn/Iv Sodium Chloride 0.9 % 50ml) 50 ml @ 100 mls/hr Q6HRS IV Last administered on 10/09/16 06:26; Start 10/04/16 at 11:00; Stop 10/09/16 at 10:55; Status DC Vancomycin HCl 1 each 1 each PRN DAILY PRN MC SEE COMMENTS Last administered on 10/07/16 11:11; Start 10/04/16 at 10:15; Stop 10/07/16 at 11:28; Status DC Vancomycin HCl/ Sodium Chloride (Iv Sodium Chloride 0.9% 250ml) 250 ml @ 250 mls/hr Q24H IV ; Start 10/04/16 at 10:15; Status UNV Labetalol HCl (Normodyne) 20 mg PRN Q6HRS PRN IVP HYPERTENSION, SEE COMMENTS; Start 10/04/16 at 10:15; Stop 10/05/16 at 10:24; Status DC Hydralazine HCl 10 mg 10 mg PRN Q6HRS PRN IVP ELEVATED BP, SEE COMMENTS Last administered on 10/06/16 19:17; Start 10/04/16 at 10:15; Stop 10/12/16 at 10:40 ; Status DC Amino Acids/ Glycerin/ Electrolytes 1,000 ml @ 40 mls/hr Q24H IV Last administered on 10/06/16 09:59; Start 10/04/16 at 10:15; Stop 10/07/16 at 09:06 ; Status DC Vancomycin HCl 2 gm/Sodium Chloride 500 ml @ 250 mls/hr 1X ONCE IV Last administered on 10/04/16at 11:26; Start 10/04/16 at 10:45; Stop 10/04/16 at 12 :44; Status DC Vancomycin HCl/ Sodium Chloride (Iv Sodium Chloride 0.9% 500ml Bag) 500 ml @ 250 mls/hr Q24H IV Last administered on 10/06/16 11:47; Start 10/05/16 at 12:00 ; Stop 10/07/16 at 11:28; Status DC Vancomycin HCl 1 each 1X ONCE MC Last administered on 10/06/16 11:30; Start at 11:30; Stop 10/06/16 at 11:31; Status DC Aspirin (Children'S Aspirin) 81 mg [id number] PO Last administered on 10/13/16 08:15; Start 10/05/16 at 11:00; Stop 10/13/16 at 08:29; Status DC Gabapentin (Neurontin) 600 mg QID PO Last administered on 10/13/16 08:14; Start 10/05/16 at 13:00; Stop 10/14/16 at 08:47; Status DC Levetiracetam (Keppra) 250 mg BID PO Last administered on 10/13/16 08:17; Start 10/05/16 at 11:00; Stop 10/14/16 at 08:47; Status DC Levothyroxine Sodium (Synthroid) 100 mcg [id number] PO Last administered on 05:08; Start 10/05/16 at 10:30; Stop 10/14/16 at 08:48; Status DC Metoprolol Succinate (Toprol Xl) 25 mg DAILY PO Last administered on 10/13/16 08:16; Start 10/05/16 at 11:00; Stop 10/14/16 at 08:47; Status DC Pramipexole Dihydrochloride (miraPEX) 0.5 mg [id number] PO Last administered on 10/13 08:15; Start 10/05/16 at 11:00; Stop 10/14/16 at 08:48; Status DC Simvastatin (Zocor) 20 mg HS PO Last administered on 10/12/16 21:07; Start 10/05 at 21:00; Stop 10/14/16 at 08:48; Status DC Carbidopa/Levodopa (Sinemet Cr) 1 tab.sa TID PO Last administered on 10/13/16 08:16; Start 10/05/16 at 11:00; Stop 10/14/16 at 08:48; Status DC Tamsulosin HCl (Flomax) 0.4 mg QHS PO Last administered on 10/12/16 21:07; Start 10/05/16 at 21:00; Stop 10/14/16 at 08:48; Status DC Tramadol HCl (Ultram) 50 mg QID PO Last administered on 10/13/16 08:17; Start 10/05/16 at 13:00; Stop 10/14/16 at 08:48; Status DC Acetaminophen (Tylenol) 650 mg PRN Q4HRS PRN PO MILD PAIN / TEMP Last administered on 10/13/16 00:17; Start 10/05/16 at 10:15; Stop 10/14/16 at 08:48; Status DC Prednisone (Prednisone) 20 mg 1X ONCE PO Last administered on 10/06/16 11:01; Start 10/06/16 at 10:30; Stop 10/06/16 at 10:31; Status DC Prednisone (Prednisone) 10 mg [id number] PO Last administered on 10/13/16 08:15; Start 10/07/16 at 08:00; Stop 10/13/16 at 08:29; Status DC Al Hydroxide/Mg Hydroxide (Mylanta Plus Xs) 30 ml PRN Q4HRS PRN PO HEARTBURN / GAS Last administered on 10/12/16 21:07; Start 10/07/16 at 08:45; Stop 10/14/16 at 08:48; Status DC Pantoprazole Sodium (Protonix) 40 mg DAILYAC PO Last administered on 10/13/16 05:08; Start 10/07/16 at 10:00; Stop 10/13/16 at 06:45; Status DC Furosemide 40 mg 40 mg DAILY PO Last administered on 10/08/16 08:42; Start 10/07 at 10:00; Stop 10/08/16 at 08:56; Status DC Sodium Chloride (Iv Sodium Chloride 0.45%) 1,000 ml @ 60 mls/hr CONT PRN IV . ; Start 10/08/16 at 09:00; Stop 10/08/16 at 16:06; Status DC Bisacodyl 10 mg 10 mg 1X ONCE CA Last administered on 10/08/16 10:11; Start at 09:30; Stop 10/08/16 at 09:31; Status DC Sodium Chloride (Iv Sodium Chloride 0.45%) 1,000 ml @ 60 mls/hr [id number] IV Last administered on 10/09/16 02:52; Start 10/08/16 at 10:15; Stop 10/09/16 at 12: 00; Status DC Cefpodoxime Proxetil (Vantin) 200 mg BID PO ; Start 10/09/16 at 11:00; Stop at 12:08; Status DC Cefpodoxime Proxetil (Vantin) 100 mg BID PO Last administered on 10/13/16 08:16 ; Start 10/09/16 at 21:00; Stop 10/13/16 at 08:29; Status DC Ondansetron HCl (Zofran) 4 mg STK-MED ONCE .ROUTE Last administered on 01:24; Start 10/13/16 at 01:19; Stop 10/13/16 at 01:20; Status DC Ondansetron HCl (Zofran) 4 mg PRN Q6HRS PRN IV NAUSEA/VOMITING Last administered on 10/22/16 05:32; Start 10/13/16 at 02:00 Pantoprazole Sodium 40 mg 40 mg DAILYAC IVP Last administered on 10/22/16 08: 16; Start 10/13/16 at 07:30 Dextrose/Sodium Chloride (Iv D5% - NS) 1,000 ml @ 60 mls/hr [id number] IV Last administered on 10/13/16 09:25; Start 10/13/16 at 08:30; Stop 10/13/16 at 11:01; Status DC Sodium Polystyrene Sulfonate 15 gm 15 gm 1X ONCE PO Last administered on 09:26; Start 10/13/16 at 08:30; Stop 10/13/16 at 08:31; Status DC Piperacillin Sod/ Tazobactam Sod 3.375 gm/Sodium Chloride 50 ml @ 100 mls/hr Q6HRS IV Last administered on 10/19/16 12:42; Start 10/13/16 at 09:00; Stop at 15:06; Status DC Dextrose/Sodium Chloride (Iv D5% - 1/2 NS) 1,000 ml @ 50 mls/hr Q20H IV Last administered on 10/17/16 00:16; Start 10/13/16 at 11:00; Stop 10/17/16 at 12:23 ; Status DC Ondansetron HCl (Zofran) 4 mg PRN Q6HRS PRN IV Nausea 1ST CHOICE; Start at 12:30; Stop 10/14/16 at 11:07; Status DC Fentanyl Citrate (Fentanyl 2ml Vial) 25 mcg PRN Q5MIN PRN IV MILD PAIN; Start 10/13/16 at 12:30; Stop 10/14/16 at 11:04; Status DC Fentanyl Citrate (Fentanyl 2ml Vial) 50 mcg PRN Q5MIN PRN IV MODERATE PAIN; Start 10/13/16 at 12:30; Stop 10/14/16 at 11:04; Status DC Morphine Sulfate 1 mg 1 mg PRN Q10MIN PRN IV SEVERE PAIN; Start 10/13/16 at 12: 30; Stop 10/14/16 at 11:00; Status DC Lactated Ringer's (Iv Lactated Ringers) 1,000 ml @ 0 mls/hr Q0M IV ; Start 10/13 at 12:17; Stop 10/14/16 at 00:16; Status DC Lidocaine HCl 2 ml 1X PRN PRN ID IV START; Start 10/13/16 at 12:30; Stop at 16:03; Status DC Hydromorphone HCl (Dilaudid) 0.5 mg PRN Q10MIN PRN IV SEV PAIN,Second choice; Start 10/13/16 at 12:30; Stop 10/14/16 at 11:04; Status DC Prochlorperazine Edisylate (Compazine) 5 mg PACU PRN PRN IV NAUSEA; Start at 12:30; Stop 10/14/16 at 11:00; Status DC Fentanyl Citrate (Fentanyl 2ml Vial) 50 mcg PRN Q5MIN PRN IV Acute Pain Last administered on 10/14/16t 10:04; Start 10/13/16 at 13:00; Stop 10/14/16 at 11:04 ; Status DC Morphine Sulfate 4 mg PRN Q10MIN PRN IV Moderate Pain; Start 10/13/16 at 13:00; Stop 10/14/16 at 11:00; Status DC Hydromorphone HCl (Dilaudid) 0.4 mg PRN Q10MIN PRN IV Moderate to severe pain; Start 10/13/16 at 13:00; Stop 10/14/16 at 11:04; Status DC Meperidine HCl (Demerol) 12.5 mg PRN Q5MIN PRN IV SHIVERING; Start 10/13/16 at 13:00; Stop 10/14/16 at 11:00; Status DC Prochlorperazine Edisylate (Compazine) 5 mg PRN Q6HRS PRN IV Nausea/Vomiting, 1st Choice; Start 10/13/16 at 13:00; Stop 10/14/16 at 11:00; Status DC Diphenhydramine HCl (Benadryl) 12.5 mg PRN Q2HR PRN IV ITCHING; Start 10/13/16 at 13:00; Stop 10/14/16 at 11:00; Status DC Midazolam HCl (Versed) 2 mg PRN 1X PRN IV PRIOR TO PROCEDURE; Start 10/13/16 at 13:00; Stop 10/14/16 at 11:07; Status DC Midazolam HCl (Versed) 1 mg PRN 1X PRN IV PRIOR TO PROCEDURE; Start 10/13/16 at 13:00; Stop 10/14/16 at 11:07; Status DC Fentanyl Citrate (Fentanyl 2ml Vial) 25 mcg PRN Q5MIN PRN IV X 2 DOSES FOR PAIN ; Start 10/13/16 at 13:00; Stop 10/14/16 at 11:04; Status DC Fentanyl Citrate 50 mcg 50 mcg PRN Q5MIN PRN IV X 2 DOSES FOR PAIN; Start at 13:00; Stop 10/14/16 at 11:04; Status DC Lactated Ringer's (Iv Lactated Ringers) 1,000 ml @ 125 mls/hr Q8H IV Last administered on 10/13/16 13:30; Start 10/13/16 at 12:48; Stop 10/14/16 at 00:47; Status DC Lidocaine HCl 2 ml 1X PRN PRN ID IV START; Start 10/13/16 at 13:00; Stop at 16:03; Status DC Fentanyl Citrate (Fentanyl 2ml Vial) 25 mcg PRN Q2HR PRN IV PAIN MOD TO SEV; Start 10/13/16 at 20:30; Stop 10/14/16 at 14:15; Status DC Fentanyl Citrate (Fentanyl 2ml Vial) 50 mcg PRN Q2HR PRN IV PAIN MOD TO SEV Last administered on 10/14/16 12:02; Start 10/13/16 at 20:30; Stop 10/14/16 at 14:15; Status DC Enoxaparin Sodium (Lovenox 40mg Syringe) 40 mg Q24H SQ Last administered on 08:18; Start 10/14/16 at 09:00 Fentanyl Citrate 100 mcg 100 mcg STK-MED ONCE .ROUTE ; Start 10/13/16 at 13:27; Stop 10/14/16 at 07:31; Status DC Propofol (Diprivan) 20 ml @ As Directed STK-MED ONCE IV ; Start 10/13/16 at 13:27 ; Stop 10/14/16 at 07:31; Status DC Rocuronium [place] (Zemuron) 50 mg STK-MED ONCE .ROUTE ; Start 10/13/16 at 13:27 ; Stop 10/14/16 at 07:31; Status DC Lidocaine HCl 100 mg STK-MED ONCE .ROUTE ; Start 10/13/16 at 13:27; Stop at 07:31; Status DC Fentanyl Citrate (Fentanyl 2ml Vial) 100 mcg STK-MED ONCE .ROUTE ; Start at 13:27; Stop 10/14/16 at 07:31; Status DC Ephedrine Sulfate (Akovaz) 50 mg STK-MED ONCE .ROUTE ; Start 10/13/16 at 14:00; Stop 10/14/16 at 07:31; Status DC Phenylephrine HCl 1 mg STK-MED ONCE IV ; Start 10/13/16 at 14:25; Stop 10/14/16 at 07:31; Status DC Desflurane (Suprane) 60 ml STK-MED ONCE IH ; Start 10/13/16 at 14:25; Stop at 07:31; Status DC Dexamethasone Sodium Phosphate (Decadron) 20 mg STK-MED ONCE .ROUTE ; Start 10/13 at 14:25; Stop 10/14/16 at 07:31; Status DC Ondansetron HCl (Zofran) 4 mg STK-MED ONCE .ROUTE ; Start 10/13/16 at 14:25; Stop 10/14/16 at 07:31; Status DC Famotidine (Pepcid) 20 mg STK-MED ONCE .ROUTE ; Start 10/13/16 at 14:25; Stop 07/21 at 07:31; Status DC Rocuronium [place] (Zemuron) 50 mg STK-MED ONCE .ROUTE ; Start 10/13/16 at 16:19 ; Stop 10/14/16 at 07:31; Status DC Fentanyl Citrate (Fentanyl 2ml Vial) 100 mcg STK-MED ONCE .ROUTE ; Start at 16:21; Stop 10/14/16 at 07:31; Status DC Desflurane (Suprane) 90 ml STK-MED ONCE IH ; Start 10/13/16 at 16:53; Stop at 07:31; Status DC Glycopyrrolate (Robinul) 1 mg STK-MED ONCE .ROUTE ; Start 10/13/16 at 17:00; Stop 10/14/16 at 07:31; Status DC Neostigmine Methylsulfate 5 mg STK-MED ONCE .ROUTE ; Start 10/13/16 at 17:00; Stop 10/14/16 at 07:31; Status DC Phenylephrine HCl 1 mg STK-MED ONCE IV ; Start 10/13/16 at 18:14; Stop 10/14/16 at 07:31; Status DC Fentanyl Citrate (Fentanyl 2ml Vial) 100 mcg STK-MED ONCE .ROUTE ; Start at 18:20; Stop 10/14/16 at 07:31; Status DC Fentanyl Citrate 100 mcg 100 mcg STK-MED ONCE .ROUTE ; Start 10/13/16 at 19:17; Stop 10/14/16 at 07:31; Status DC Levetiracetam 500 mg/Sodium Chloride 105 ml @ 400 mls/hr Q12HR IV Last administered on 10/22/16 08:18; Start 10/14/16 at 09:00 Amino Acids/ Glycerin/ Electrolytes (Procalamine) 1,000 ml @ 80 mls/hr [id number] IV Last administered on 10/16/16 09:16; Start 10/14/16 at 11:15; Stop at 21:59; Status DC Morphine Sulfate 2 mg PRN Q4HRS PRN IV MODERATE PAIN Last administered on 00:57; Start 10/14/16 at 14:15 Morphine Sulfate 4 mg PRN Q4HRS PRN IV SEVERE PAIN Last administered on 08:17; Start 10/14/16 at 14:30 Info 1 each 1 each PRN DAILY PRN MC SEE COMMENTS Last administered on 11:09; Start 10/16/16 at 11:30 Sodium Chloride/ Potassium Chloride/ Potassium Phosphate/ Magnesium Sulfate/ Calcium Gluconate/ Multivitamins/ Minerals/Chromium/ Copper/Manganese/ Seleni/Zn /Total Parenteral Nutrition/Amino Acids/Dextrose/ Fat Emulsion Intravenous ( Sodium Chloride/ Potassium Phospha... 1,512 ml @ 63 mls/hr TPN CONT IV ; Start 10/16/16 at 22:00; Stop 10/17/16 at 12:50; Status DC Lidocaine/Sodium Bicarbonate 20 ml 20 ml STK-MED ONCE IJ ; Start 10/17/16 at 08: 20; Stop 10/17/16 at 08:21; Status DC Heparin Sodium/ Sodium Chloride 500 ml @ As Directed STK-MED ONCE .ROUTE ; Start 10/17/16 at 08:20; Stop 10/17/16 at 08:21; Status DC Lidocaine/Sodium Bicarbonate (Buffered Lidocaine 1%) 3 ml 1X ONCE IJ Last administered on 10/17/16 08:30; Start 10/17/16 at 08:30; Stop 10/17/16 at 08:31 ; Status DC Heparin Sodium/ Sodium Chloride 60 unit 1X ONCE IV Last administered on 08:30; Start 10/17/16 at 08:30; Stop 10/17/16 at 08:31; Status DC Iohexol (Omnipaque 300 Mg/ml) 50 ml STK-MED ONCE .ROUTE ; Start 10/17/16 at 09: 02; Stop 10/17/16 at 09:03; Status DC Iohexol (Omnipaque 300 Mg/ml) 43 ml 1X ONCE IART Last administered on 08:45; Start 10/17/16 at 09:30; Stop 10/17/16 at 09:33; Status DC Info (Do NOT chart on this entry -- for MONITORING) 1 each PRN DAILY PRN MC SEE COMMENTS; Start 10/17/16 at 09:45; Stop 10/19/16 at 09:44; Status DC Clonidine HCl (Catapres Tts-2) 1 patch WEEKLY TD Last administered on 11:58; Start 10/17/16 at 11:00 Labetalol HCl 20 mg 20 mg PRN Q6HRS PRN IVP HYPERTENSION, SEE COMMENTS; Start 10/17/16 at 10:30 Sodium Chloride 1,000 ml @ 60 mls/hr [id number] IV Last administered on 06:32; Start 10/17/16 at 12:30; Stop 10/19/16 at 10:06; Status DC Sodium Chloride 90 meq/Potassium Chloride 50 meq/ Potassium Phosphate 13.6 mmol/ Magnesium Sulfate 10 meq/ Calcium Gluconate 10 meq/ Multivitamins/ Minerals 10 ml/ Chromium/Copper/ Manganese/Seleni/ Zn 1 ml/Total Parenteral Nutrition/Amino Acids/Dextrose/ Fat Emulsion Intravenous 1,512 ml @ 63 mls/hr TPN CONT IV Last administered on 10/17/16 21:09; Start 10/17/16 at 22:00; Stop 10/18/16 at 21:59; Status DC Sodium Chloride/ Potassium Chloride/ Potassium Phosphate/ Magnesium Sulfate/ Calcium Gluconate/ Multivitamins/ Minerals/Chromium/ Copper/Manganese/ Seleni/Zn /Total Parenteral Nutrition/Amino Acids/Dextrose/ Fat Emulsion Intravenous ( Sodium Chloride/ Potassium Phospha... 1,512 ml @ 63 mls/hr TPN CONT IV Last administered on 10/18/16 21:24; Start 10/18/16 at 22:00; Stop 10/19/16 at 21:59 ; Status DC Furosemide 20 mg 20 mg 1X ONCE IVP Last administered on 10/19/16 11:01; Start 10/19/16 at 10:30; Stop 10/19/16 at 10:31; Status DC Sodium Chloride 90 meq/Sodium Acetate 40 meq/ Potassium Chloride 50 meq/ Potassium Phosphate 13.6 mmol/Magnesium Sulfate 10 meq/ Calcium Gluconate 10 meq / Multivitamins/ Minerals 10 ml/ Chromium/Copper/ Manganese/Seleni/ Zn 1 ml/ Total Parenteral Nutrition/Amino Acids/Dextro... 1,920 ml @ 80 mls/hr TPN CONT IV Last administered on 10/19/16 22:29; Start 10/19/16 at 22:00; Stop at 21:59; Status DC Sodium Chloride 1,000 ml @ 45 mls/hr [id number] IV Last administered on 22:24; Start 10/20/16 at 09:00; Stop 10/21/16 at 09:26; Status DC Magnesium Sulfate/ Dextrose 50 ml @ 25 mls/hr PRN DAILY PRN IV for Mag < 1.7 on am labs; Start 10/20/16 at 13:15 Sodium Chloride/ Sodium Acetate/ Potassium Chloride/ Potassium Phosphate/ Magnesium Sulfate/ Calcium Gluconate/ Multivitamins/ Minerals/Chromium/ Copper/ Manganese/ Seleni/Zn/Total Parenteral Nutrition/Amino Acids/Dextrose/ Fat Emulsion Intravenous (Sodium Chloride/ Potass... 1,920 ml @ 80 mls/hr TPN CONT IV Last administered on 10/20/16 22:23; Start 10/20/16 at 22:00; Stop at 21:59; Status DC Acetaminophen/ Hydrocodone Bitart 1 tab 1 tab PRN Q4HRS PRN PO PAIN Last administered on 10/21/16 23:51; Start 10/21/16 at 09:30 Sodium Chloride/ Sodium Acetate/ Potassium Chloride/ Potassium Phosphate/ Magnesium Sulfate/ Calcium Gluconate/ Multivitamins/ Minerals/Chromium/ Copper/ Manganese/ Seleni/Zn/Total Parenteral Nutrition/Amino Acids/Dextrose/ Fat Emulsion Intravenous (Sodium Chloride/ Potass... 1,920 ml @ 80 mls/hr TPN CONT IV Last administered on 10/21/16 22:22; Start 10/21/16 at 22:00; Stop at 21:59 Metoclopramide HCl (Reglan) 10 mg 1X ONCE IV Last administered on 10/22/16 01 :56; Start 10/22/16 at 02:00; Stop 10/22/16 at 02:01; Status DC Lorazepam (Ativan) 1 mg 1X ONCE IV Last administered on 10/22/16 02:35; Start 10/22/16 at 02:30; Stop 10/22/16 at 02:31; Status DC Morphine Sulfate 2 mg PRN Q1HR PRN IV PAIN Last administered on 10/22/16 05:33 ; Start 10/22/16 at 02:30 Famotidine (Pepcid) 20 mg 1X ONCE IVP Last administered on 10/22/16 02:35; Start 10/22/16 at 02:30; Stop 10/22/16 at 02:31; Status DC Active Scripts Active Hydrocodone-Apap 5-325 (Hydrocodone Bit/Acetaminophen) 1 Each Tablet 1 Tab PO PRN Q6HRS PRN Metoprolol Succinate ( Xl ) (Metoprolol Succinate) 25 Mg Tab.er.24h 25 Mg PO DAILY Reported Flomax (Tamsulosin Hcl) 0.4 Mg Cap.er.24h 1 Cap PO QHS Tramadol Hcl 100 Mg Tab.er.24h 100 Mg PO QID Levetiracetam 250 Mg Tablet 250 Mg PO BID Dulcolax (Bisacodyl) 10 Mg Supp.rect 10 Mg RC PRN DAILY PRN Maalox Advanced Suspension (Mag Hydrox/Al Hydrox/Simeth) 770 Ml Oral.susp 30 Ml PO Q2HR PRN Milk Of Magnesia (Magnesium Hydroxide) 400 Mg/5 Ml Oral.susp 30 Ml PO DAILY PRN Robitussin Cough-Chest Dm Liq (Guaifenesin/Dextromethorphan) 118 Ml Liquid 10 Ml PO Q4HRS PRN Trazodone Hcl 50 Mg Tablet 1 Tab PO QHS Tylenol (Acetaminophen) 325 Mg Tablet 650 Mg PO Q6HRS PRN Pramipexole Dihydrochloride (Pramipexole Di-Hcl) 0.5 Mg Tablet 0.5 Mg PO TID Simvastatin 20 Mg Tablet 1 Tab PO QHS Levothyroxine Sodium 100 Mcg Tablet 1 Tab PO DAILY Gabapentin 800 Mg Tablet 800 Mg PO QID Sinemet 25-100 Mg Tablet (Carbidopa/Levodopa) 1 Each Tablet 2 Tab PO TID Aspirin 81 Mg Tab.chew 1 Tab PO DAILY Vitals/I & O Vital Sign - Last 24 Hours 10/21/16 10/21/16 10/21/16 10/21/16 11:00 14:34 15:00 19:00 Temp 98.1 98.1 97.7 98.1 98.1 97.7 Pulse 83 78 81 Resp 18 18 B/P 177/83 155/77 156/69 Pulse Ox 94 94 96 97 O2 Delivery Nasal Cannula Nasal Cannula Nasal Cannula Nasal Cannula O2 Flow Rate 3.0 3.0 3.0 3.0 10/21/16 10/21/16 10/21/16 10/21/16 19:27 20:55 22:26 23:41 Temp 98.1 98.1 Pulse 83 Resp 18 B/P 154/59 Pulse Ox 96 96 94 O2 Delivery Nasal Cannula Nasal Cannula Nasal Cannula Nasal Cannula O2 Flow Rate 3.0 4.0 3.0 3.0 10/21/16 10/22/16 10/22/16 10/22/16 23:51 00:51 00:57 01:00 Pulse 96 Resp 20 24 B/P 200/83 Pulse Ox 94 93 94 O2 Delivery Nasal Cannula Nasal Cannula Nasal Cannula Nasal Cannula O2 Flow Rate 3.0 4.0 4.0 4.0 10/22/16 10/22/16 10/22/16 10/22/16 01:08 01:10 01:18 01:25 Pulse 94 87 85 Resp 24 24 24 24 B/P 180/76 177/80 169/80 Pulse Ox 98 O2 Delivery Nasal Cannula Nasal Cannula Nasal Cannula Nasal Cannula O2 Flow Rate 4.0 4.0 4.0 4.0 10/22/16 10/22/16 10/22/16 10/22/16 01:30 01:35 01:35 01:38 Pulse 95 92 Resp 24 B/P 173/69 168/75 Pulse Ox 93 93 O2 Delivery Nasal Cannula Nasal Cannula Nasal Cannula O2 Flow Rate 4.0 4.0 4.0 10/22/16 10/22/16 10/22/16 10/22/16 01:45 02:00 02:30 02:35 Temp 98.4 98.4 Pulse 92 96 97 Resp 22 B/P 169/80 177/87 183/73 Pulse Ox 94 93 O2 Delivery Nasal Cannula Nasal Cannula Nasal Cannula Nasal Cannula O2 Flow Rate 4.0 4.0 4.0 4.0 10/22/16 10/22/16 10/22/16 10/22/16 03:19 05:33 06:28 07:00 Temp 98.4 98.1 98.4 98.1 Pulse 91 100 Resp 22 20 20 20 B/P 180/57 195/76 Pulse Ox 93 93 96 O2 Delivery Nasal Cannula Nasal Cannula Nasal Cannula Nasal Cannula O2 Flow Rate 4.0 4.0 4.0 4.0 10/22/16 10/22/16 10/22/16 07:30 08:17 09:00 Resp 20 20 O2 Delivery Nasal Cannula Nasal Cannula Nasal Cannula O2 Flow Rate 4.0 4.0 4.0 Intake and Output 10/21/16 10/21/16 10/22/16 15:00 23:00 07:00 Intake Total 1360 ml 2471 ml Output Total 900 ml Balance 1360 ml 1571 ml RICHARD [place] MD Oct 22, 2016 10:44
--- NOTE | 2016-10-22 10:58 | PDOC ---
Subjective: Subjective: No epigastric pain now, just back from x-ray w/ a little bilious emesis in basin. Objective: Objective: Events overnight reviewed - Dr. Amin was called. Service Spr[employer] consult pending. Vital Signs: Vital Signs Date Time Temp Pulse Resp B/P Pulse Ox O2 Delivery O2 Flow Rate FiO2 10/22/16 09:00 20 Nasal Cannula 4.0 10/22/16 07:00 98.1 100 195/76 96 98.1 Labs: Laboratory Tests Test 10/22/16 01:12 White Blood Count 6.9x10^3/uL Red Blood Count 2.60x10^6/uL Hemoglobin 8.2g/dL Hematocrit 25.5% Mean Corpuscular Volume 98fL Mean Corpuscular Hemoglobin 32pg Mean Corpuscular Hemoglobin Concent 32g/dL Red Cell Distribution Width 15.2% Platelet Count 259x10^3/uL Neutrophils (%) (Auto) 70% Lymphocytes (%) (Auto) 20% Monocytes (%) (Auto) 6% Eosinophils (%) (Auto) 3% Basophils (%) (Auto) 1% Neutrophils # (Auto) 4.9x10^3uL Lymphocytes # (Auto) 1.4x10^3/uL Monocytes # (Auto) 0.4x10^3/uL Eosinophils # (Auto) 0.2x10^3/uL Basophils # (Auto) 0.1x10^3/uL Sodium Level 141mmol/L Potassium Level 4.6mmol/L Chloride Level 107mmol/L Carbon Dioxide Level 26mmol/L Anion Gap 8 Blood Urea Nitrogen 15mg/dL Creatinine 1.3mg/dL Estimated GFR (Cockcroft-Gault) 52.5 Glucose Level 125mg/dL Calcium Level 8.5mg/dL Phosphorus Level 2.9mg/dL Troponin I Quantitative 0.023ng/mL Albumin 2.0g/dL Imaging: Acute Abd Series 10/22/16 PENDING PE: GEN: NAD LUNGS: CTAB HEART: RRR ABD: increased distention, BS? NEURO/PSYCH: A & O 3 A/P: S/p exp lap 10/13/15 w/ CONG, post-op ileus and recent SBO -on TPN, was advanced to clears yesterday - now NPO w/ more abd distention, pain overnight, n/v -- Clinically worse today. Await x-rays. ?needs NG again GAYLA CLEMENTE Oct 22, 2016 10:58
[2016-10-22] MEDS ORDERED: IOHEXOL 300 MG/ML 75 ML VIAL IV ONE (11:00)
[2016-10-22] MEDS ORDERED: CONTRAST GIVEN MC PRN (11:00)
[2016-10-22] MEDS ORDERED: IOHEXOL 300 MG/ML 75 ML VIAL PO ONE (11:00)
--- NOTE | 2016-10-22 11:05 | RAD ---
Indication nausea abdominal pain. A single view of the chest was obtained as well as flat and upright films of the abdomen. Comparison is made to a similar series of films 2 days previously. Heart size is unchanged. Aeration of the lungs has improved slightly. Some volume loss, likely reflecting pleural fluid and atelectasis at the left lung base persists. A new finding in the chest is not seen. Right PICC line and neuro stimulating device are noted. There is no free air. The degree of dilatation of bowel loops has improved somewhat relative to the previous exam. Mild distention of the stomach is noted. A high-grade mechanical obstruction is not seen. Postoperative changes in the lumbar spine pelvis and IVC filter noted. IMPRESSION: Slightly improved aeration of the lungs. Mildly improved abdominal gas pattern relative to the previous study
--- NOTE | 2016-10-22 12:10 | PDOC ---
SUBJECTIVE ROS CKD III doing same OBJECTIVE Vital Signs Vital Signs Date Time Temp Pulse Resp B/P Pulse Ox O2 Delivery O2 Flow Rate FiO2 10/22/16 11:00 98.6 95 20 145/72 95 Nasal Cannula 4.0 98.6 I & 0 Intake and Output 10/22/16 07:00 Intake Total 3831 ml Output Total 900 ml Balance 2931 ml Intake Oral 300 ml IV Total 3531 ml Output Urine Total 900 ml PHYSICAL EXAM Physical Exam General Appearance: Awake: Alert Oriented x 1-2 Neck: No JVD or JVP Chest: CTA [place] Heart: S1 S2 Abdomen - Soft NTND Extremities - No Edema DIAGNOSIS/ASSESSMENT Assessment & Plan CKD III - Creat is back to baseline Pl call with Qs Problems: COMMENT/RELEVANT DATA Meds Current Medications Medications (Trade) Dose Ordered Sig/Liam Start Time Stop Time Status Last Admin Dose Admin Acetaminophen (Tylenol) 650 mg PRN Q4HRS PRN 10/05/16 10:15 10/14/16 08:48 DC 10/13/16 00:17 650 MG Acetaminophen/ Hydrocodone Bitart 1 tab 1 tab PRN Q4HRS PRN 10/21/16 09:30 10/22/16 10:39 DC 10/21/16 23:51 1 TAB Al Hydroxide/Mg Hydroxide (Mylanta Plus Xs) 30 ml PRN Q4HRS PRN 10/07/16 08:45 10/14/16 08:48 DC 10/12/16 21:07 30 ML Amino Acids/ Glycerin/ Electrolytes (Procalamine) 1,000 ml @ 80 mls/hr [id number] 10/14/16 11:15 10/16/16 21:59 DC 10/16/16 09:16 80 MLS/HR Aspirin (Children'S Aspirin) 81 mg [id number] 10/05/16 11:00 10/13/16 08:29 DC 10/13/16 08:15 81 MG Benzocaine (Hurricaine One) 1 spray STK-MED ONCE 09/30/16 19:51 09/30/16 19:52 DC Bisacodyl 10 mg 10 mg 1X ONCE 10/08/16 09:30 10/08/16 09:31 DC 10/08/16 10:11 10 MG Carbidopa/Levodopa (Sinemet Cr) 1 tab.sa TID 10/05/16 11:00 1/10/17 08:48 DC 10/13/16 08:16 1 TAB.SA Cefpodoxime Proxetil (Vantin) 100 mg BID 10/09/16 21:00 10/13/16 08:29 DC 10/13/16 08:16 100 MG Clonidine HCl (Catapres Tts-2) 1 patch WEEKLY 10/17/16 11:00 10/17/16 11:58 1 PATCH Clonidine HCl 1 patch 1 patch WEEKLY 10/03/16 10:00 10/05/16 10:24 DC 10/03/16 12:30 1 PATCH Desflurane (Suprane) 90 ml STK-MED ONCE 10/13/16 16:53 10/14/16 07:31 DC Dexamethasone Sodium Phosphate (Decadron) 20 mg STK-MED ONCE 10/13/16 14:25 10/14/16 07:31 DC Dextrose/Sodium Chloride (Iv D5% - 1/2 NS) 1,000 ml @ 50 mls/hr Q20H 10/13/16 11:00 10/17/16 12:23 DC 10/17/16 00:16 50 MLS/HR Dextrose/Sodium Chloride (Iv D5% - NS) 1,000 ml @ 60 mls/hr [id number] 10/13/16 08:30 10/13/16 11:01 DC 10/13/16 09:25 60 MLS/HR Diphenhydramine HCl (Benadryl) 12.5 mg PRN Q2HR PRN 10/13/16 13:00 10/14/16 11:00 DC Enoxaparin Sodium 40 mg 40 mg Q24H 10/14/16 09:00 10/22/16 08:18 40 MG Ephedrine Sulfate (Akovaz) 50 mg STK-MED ONCE 10/13/16 14:00 10/14/16 07:31 DC Famotidine (Pepcid) 20 mg 1X ONCE 10/22/16 02:30 10/22/16 02:31 DC 10/22/16 02:35 20 MG Fentanyl Citrate (Fentanyl 2ml Vial) 100 mcg STK-MED ONCE 10/13/16 18:20 10/14/16 07:31 DC Fentanyl Citrate 50 mcg 50 mcg PRN Q5MIN PRN 10/13/16 13:00 10/14/16 11:04 DC Fentanyl Citrate 100 mcg 100 mcg STK-MED ONCE 10/13/16 19:17 10/14/16 07:31 DC Furosemide (Lasix) 40 mg DAILY 10/07/16 10:00 10/08/16 08:56 DC 10/08/16 08:42 40 MG Furosemide 20 mg 20 mg 1X ONCE 10/19/16 10:30 10/19/16 10:31 DC 10/19/16 11:01 20 MG Gabapentin (Neurontin) 600 mg QID 10/05/16 13:00 10/14/16 08:47 DC 10/13/16 08:14 600 MG Glycopyrrolate (Robinul) 1 mg STK-MED ONCE 10/13/16 17:00 10/14/16 07:31 DC Heparin Sodium/ Sodium Chloride 60 unit 1X ONCE 10/17/16 08:30 10/17/16 08:31 DC 10/17/16 08:30 60 UNIT Hydralazine HCl (Apresoline) 10 mg PRN Q6HRS PRN 10/22/16 10:45 Hydralazine HCl 10 mg 10 mg PRN Q6HRS PRN 10/04/16 10:15 10/12/16 10:40 DC 10/06/16 19:17 10 MG Hydromorphone HCl (Dilaudid) 0.4 mg PRN Q10MIN PRN 10/13/16 13:00 10/14/16 11:04 DC Info (Do NOT chart on this entry -- for MONITORING) 1 each PRN DAILY PRN 10/22/16 11:00 10/24/16 10:59 Iohexol (Omnipaque 300 Mg/ml) 60 ml 1X ONCE 10/22/16 11:00 10/22/16 11:01 DC 10/22/16 11:19 60 ML Labetalol HCl (Normodyne) 20 mg PRN Q6HRS PRN 10/04/16 10:15 10/05/16 10:24 DC Labetalol HCl 20 mg 20 mg PRN Q6HRS PRN 10/17/16 10:30 Lactated Ringer's (Iv Lactated Ringers) 1,000 ml @ 125 mls/hr Q8H 10/13/16 12:48 10/14/16 00:47 DC 10/13/16 13:30 125 MLS/HR Levetiracetam (Keppra) 250 mg BID 10/05/16 11:00 10/14/16 08:47 DC 10/13/16 08:17 250 MG Levetiracetam 500 mg/Sodium Chloride 105 ml @ 400 mls/hr Q12HR 10/14/16 09:00 10/22/16 08:18 400 MLS/HR Levetiracetam/ Sodium Chloride (Keppra/Iv Sodium Chloride 0.9% 100ml) 105 ml @ 400 mls/hr Q12HR 09/30/16 21:00 10/05/16 10:24 DC 10/05/16 09:30 400 MLS/HR Levothyroxine Sodium (Synthroid) 100 mcg DAILY07 10/05/16 10:30 10/14/16 08:48 DC 10/13/16 05:08 100 MCG Lidocaine HCl 100 mg STK-MED ONCE 10/13/16 13:27 10/14/16 07:31 DC Lidocaine/Sodium Bicarbonate (Buffered Lidocaine 1%) 3 ml 1X ONCE 10/17/16 08:30 10/17/16 08:31 DC 10/17/16 08:30 3 ML Lorazepam (Ativan) 1 mg 1X ONCE 10/22/16 02:30 10/22/16 02:31 DC 10/22/16 02:35 1 MG Magnesium Sulfate/ Dextrose (Magnesium Sulfate PREMIX 2GM) 50 ml @ 25 mls/hr PRN DAILY PRN 10/20/16 13:15 Meperidine HCl (Demerol) 12.5 mg PRN Q5MIN PRN 10/13/16 13:00 10/14/16 11:00 DC Metoclopramide HCl (Reglan) 10 mg 1X ONCE 10/22/16 02:00 10/22/16 02:01 DC 10/22/16 01:56 10 MG Metoprolol Succinate (Toprol Xl) 25 mg DAILY 10/05/16 11:00 10/14/16 08:47 DC 10/13/16 08:16 25 MG Midazolam HCl (Versed) 1 mg PRN 1X PRN 10/13/16 13:00 10/14/16 11:07 DC Morphine Sulfate 2 mg PRN Q1HR PRN 10/22/16 02:30 10/22/16 05:33 2 MG Neostigmine Methylsulfate 5 mg STK-MED ONCE 10/13/16 17:00 10/14/16 07:31 DC Ondansetron HCl (Zofran) 4 mg STK-MED ONCE 10/13/16 14:25 10/14/16 07:31 DC Ondansetron HCl 4 mg 4 mg PRN Q8HRS PRN 09/30/16 19:15 10/01/16 19:14 DC 09/30/16 22:07 4 MG Pantoprazole Sodium (Protonix) 40 mg DAILYAC 10/07/16 10:00 10/13/16 06:45 DC 10/13/16 05:08 40 MG Pantoprazole Sodium 40 mg 40 mg DAILYAC 10/13/16 07:30 10/22/16 08:16 40 MG Phenylephrine HCl 1 mg STK-MED ONCE 10/13/16 18:14 10/14/16 07:31 DC Piperacillin Sod/ Tazobactam Sod 3.375 gm/Sodium Chloride 50 ml @ 100 mls/hr Q6HRS 10/13/16 09:00 10/19/16 15:06 DC 10/19/16 12:42 100 MLS/HR Piperacillin Sod/ Tazobactam Sod/ Sodium Chloride (Zosyn/Iv Sodium Chloride 0.9% 50ml) 50 ml @ 100 mls/hr Q6HRS 10/04/16 11:00 10/09/16 10:55 DC 10/09/16 06:26 100 MLS/HR Potassium Chloride/Dextrose/ Sod Cl 1,000 ml @ 125 mls/hr Q8H 09/30/16 20:00 10/04/16 10:21 DC 10/04/16 06:02 125 MLS/HR Pramipexole Dihydrochloride (miraPEX) 0.5 mg [id number] 10/05/16 11:00 10/14/16 08:48 DC 10/13/16 08:15 0.5 MG Prednisone (Prednisone) 10 mg DAILY08 10/07/16 08:00 10/13/16 08:29 DC 10/13/16 08:15 10 MG Prochlorperazine Edisylate (Compazine) 5 mg PRN Q6HRS PRN 10/13/16 13:00 10/14/16 11:00 DC Propofol (Diprivan) 20 ml @ As Directed STK-MED ONCE 10/13/16 13:27 10/14/16 07:31 DC Rocuronium [place] (Zemuron) 50 mg STK-MED ONCE 10/13/16 16:19 10/14/16 07:31 DC Simvastatin (Zocor) 20 mg HS 10/05/16 21:00 10/14/16 08:48 DC 10/12/16 21:07 20 MG Sodium Polystyrene Sulfonate 15 gm 15 gm 1X ONCE 10/13/16 08:30 10/13/16 08:31 DC 10/13/16 09:26 15 GM Sodium Chloride 1,000 ml @ 45 mls/hr [id number] 10/20/16 09:00 10/21/16 09:26 DC 10/20/16 22:24 45 MLS/HR Sodium Chloride (Iv Sodium Chloride 0.45%) 1,000 ml @ 60 mls/hr [id number] 10/08/16 10:15 10/09/16 12:00 DC 10/09/16 02:52 60 MLS/HR Sodium Chloride 90 meq/Potassium Chloride 50 meq/ Potassium Phosphate 13.6 mmol/Magnesium Sulfate 10 meq/ Calcium Gluconate 10 meq/ Multivitamins/ Minerals 10 ml/ Chromium/Copper/ Manganese/Seleni/ Zn 1 ml/Total Parenteral Nutrition/Amino Acids/Dextrose/ Fat Emulsion Intravenous 1,512 ml @ 63 mls/hr TPN CONT 10/17/16 22:00 10/18/16 21:59 DC 10/17/16 21:09 63 MLS/HR Sodium Chloride 90 meq/Sodium Acetate 40 meq/ Potassium Chloride 50 meq/ Potassium Phosphate 13.6 mmol/Magnesium Sulfate 10 meq/ Calcium Gluconate 10 meq/ Multivitamins/ Minerals 10 ml/ Chromium/Copper/ Manganese/Seleni/ Zn 1 ml/Total Parenteral Nutrition/Amino Acids/Dextro... 1,920 ml @ 80 mls/hr TPN CONT 10/19/16 22:00 10/20/16 21:59 DC 10/19/16 22:29 80 MLS/HR Sodium Chloride/ Potassium Chloride/ Potassium Phosphate/ Magnesium Sulfate/ Calcium Gluconate/ Multivitamins/ Minerals/Chromium/ Copper/Manganese/ Seleni/Zn/Total Parenteral Nutrition/Amino Acids/Dextrose/ Fat Emulsion Intravenous (Sodium Chloride/ Potassium Phospha... 1,512 ml @ 63 mls/hr TPN CONT 10/18/16 22:00 10/19/16 21:59 DC 10/18/16 21:24 63 MLS/HR Sodium Chloride/ Sodium Acetate/ Potassium Chloride/ Potassium Phosphate/ Magnesium Sulfate/ Calcium Gluconate/ Multivitamins/ Minerals/Chromium/ Copper/Manganese/ Seleni/Zn/Total Parenteral Nutrition/Amino Acids/Dextrose/ Fat Emulsion Intravenous (Sodium Chloride/ Potass... 1,920 ml @ 80 mls/hr TPN CONT 10/21/16 22:00 10/22/16 21:59 10/21/16 22:22 80 MLS/HR Tamsulosin HCl (Flomax) 0.4 mg QHS 10/05/16 21:00 10/14/16 08:48 DC 10/12/16 21:07 0.4 MG Tramadol HCl (Ultram) 50 mg QID 10/05/16 13:00 10/14/16 08:48 DC 10/13/16 08:17 50 MG Vancomycin HCl 1 each 1X ONCE 10/06/16 11:30 10/06/16 11:31 DC 10/06/16 11:30 1 EACH Vancomycin HCl 1 each 1 each PRN DAILY PRN 10/04/16 10:15 10/07/16 11:28 DC 10/07/16 11:11 1 EACH Vancomycin HCl 2 gm/Sodium Chloride 500 ml @ 250 mls/hr 1X ONCE 10/04/16 10:45 10/04/16 12:44 DC 10/04/16 11:26 250 MLS/HR Vancomycin HCl/ Sodium Chloride (Iv Sodium Chloride 0.9% 250ml) 250 ml @ 250 mls/hr Q24H 10/04/16 10:15 UNV Vancomycin HCl/ Sodium Chloride (Iv Sodium Chloride 0.9% 500ml Bag) 500 ml @ 250 mls/hr Q24H 10/05/16 12:00 10/07/16 11:28 DC 10/06/16 11:47 250 MLS/HR Lab Laboratory Tests Test 10/22/16 01:12 White Blood Count 6.9x10^3/uL (4.0-11.0) Red Blood Count 2.60x10^6/uL (4.30-5.70) Hemoglobin 8.2g/dL (13.0-17.5) Hematocrit 25.5% (39.0-53.0) Mean Corpuscular Volume 98fL (79-100) Mean Corpuscular Hemoglobin 32pg (25-35) Mean Corpuscular Hemoglobin Concent 32g/dL (31-37) Red Cell Distribution Width 15.2% (11.5-14.5) Platelet Count 259x10^3/uL (140-400) Neutrophils (%) (Auto) 70% (31-73) Lymphocytes (%) (Auto) 20% (24-48) Monocytes (%) (Auto) 6% (0-9) Eosinophils (%) (Auto) 3% (0-3) Basophils (%) (Auto) 1% (0-3) Neutrophils # (Auto) 4.9x10^3uL (1.8-7.7) Lymphocytes # (Auto) 1.4x10^3/uL (1.0-4.8) Monocytes # (Auto) 0.4x10^3/uL (0.0-1.1) Eosinophils # (Auto) 0.2x10^3/uL (0.0-0.7) Basophils # (Auto) 0.1x10^3/uL (0.0-0.2) Sodium Level 141mmol/L (136-145) Potassium Level 4.6mmol/L (3.5-5.1) Chloride Level 107mmol/L (98-107) Carbon Dioxide Level 26mmol/L (21-32) Anion Gap 8 (6-14) Blood Urea Nitrogen 15mg/dL (8-26) Creatinine 1.3mg/dL (0.7-1.3) Estimated GFR (Cockcroft-Gault) 52.5 Glucose Level 125mg/dL (70-99) Calcium Level 8.5mg/dL (8.5-10.1) Phosphorus Level 2.9mg/dL (2.6-4.7) Troponin I Quantitative 0.023ng/mL (0.000-0.055) Albumin 2.0g/dL (3.4-5.0) JAYA COBURN MD Oct 22, 2016 12:10
--- NOTE | 2016-10-22 12:23 | PDOC ---
PROGRESS NOTES Subjective Subjective Pt not in room, getting CT, Dr Soares note seen Objective Objective Vital Signs Date Time Temp Pulse Resp B/P Pulse Ox O2 Delivery O2 Flow Rate FiO2 10/22/16 11:00 98.6 95 20 145/72 95 Nasal Cannula 4.0 98.6 Intake and Output 10/22/16 07:00 Intake Total 3831 ml Output Total 900 ml Balance 2931 ml Intake Oral 300 ml IV Total 3531 ml Output Urine Total 900 ml Assessment Assessment Problems Medical Problems: (1) SBO (small bowel obstruction) Status: Acute Plan Plan of Care No new surgical recs, KUB today not suggestive of mechanical obstruction Comment Review of Relevant I have reviewed the following items [place] (where applicable) has been applied. Labs Laboratory Tests Test 10/21/16 05:00 10/22/16 01:12 White Blood Count 6.3x10^3/uL (4.0-11.0) 6.9x10^3/uL (4.0-11.0) Red Blood Count 2.27x10^6/uL (4.30-5.70) 2.60x10^6/uL (4.30-5.70) Hemoglobin 7.3g/dL (13.0-17.5) 8.2g/dL (13.0-17.5) Hematocrit 22.5% (39.0-53.0) 25.5% (39.0-53.0) Mean Corpuscular Volume 99fL (79-100) 98fL (79-100) Mean Corpuscular Hemoglobin 32pg (25-35) 32pg (25-35) Mean Corpuscular Hemoglobin Concent 32g/dL (31-37) 32g/dL (31-37) Red Cell Distribution Width 15.2% (11.5-14.5) 15.2% (11.5-14.5) Platelet Count 226x10^3/uL (140-400) 259x10^3/uL (140-400) Neutrophils (%) (Auto) 65% (31-73) 70% (31-73) Lymphocytes (%) (Auto) 21% (24-48) 20% (24-48) Monocytes (%) (Auto) 10% (0-9) 6% (0-9) Eosinophils (%) (Auto) 4% (0-3) 3% (0-3) Basophils (%) (Auto) 0% (0-3) 1% (0-3) Neutrophils # (Auto) 4.1x10^3uL (1.8-7.7) 4.9x10^3uL (1.8-7.7) Lymphocytes # (Auto) 1.3x10^3/uL (1.0-4.8) 1.4x10^3/uL (1.0-4.8) Monocytes # (Auto) 0.6x10^3/uL (0.0-1.1) 0.4x10^3/uL (0.0-1.1) Eosinophils # (Auto) 0.2x10^3/uL (0.0-0.7) 0.2x10^3/uL (0.0-0.7) Basophils # (Auto) 0.0x10^3/uL (0.0-0.2) 0.1x10^3/uL (0.0-0.2) Sodium Level 138mmol/L (136-145) 141mmol/L (136-145) Potassium Level 4.3mmol/L (3.5-5.1) 4.6mmol/L (3.5-5.1) Chloride Level 106mmol/L (98-107) 107mmol/L (98-107) Carbon Dioxide Level 24mmol/L (21-32) 26mmol/L (21-32) Anion Gap 8 (6-14) 8 (6-14) Blood Urea Nitrogen 17mg/dL (8-26) 15mg/dL (8-26) Creatinine 1.3mg/dL (0.7-1.3) 1.3mg/dL (0.7-1.3) Estimated GFR (Cockcroft-Gault) 52.5 52.5 Glucose Level 119mg/dL (70-99) 125mg/dL (70-99) Calcium Level 8.2mg/dL (8.5-10.1) 8.5mg/dL (8.5-10.1) Phosphorus Level 3.0mg/dL (2.6-4.7) 2.9mg/dL (2.6-4.7) Albumin 1.8g/dL (3.4-5.0) 2.0g/dL (3.4-5.0) Troponin I Quantitative 0.023ng/mL (0.000-0.055) Laboratory Tests Test 10/22/16 01:12 White Blood Count 6.9x10^3/uL (4.0-11.0) Red Blood Count 2.60x10^6/uL (4.30-5.70) Hemoglobin 8.2g/dL (13.0-17.5) Hematocrit 25.5% (39.0-53.0) Mean Corpuscular Volume 98fL (79-100) Mean Corpuscular Hemoglobin 32pg (25-35) Mean Corpuscular Hemoglobin Concent 32g/dL (31-37) Red Cell Distribution Width 15.2% (11.5-14.5) Platelet Count 259x10^3/uL (140-400) Neutrophils (%) (Auto) 70% (31-73) Lymphocytes (%) (Auto) 20% (24-48) Monocytes (%) (Auto) 6% (0-9) Eosinophils (%) (Auto) 3% (0-3) Basophils (%) (Auto) 1% (0-3) Neutrophils # (Auto) 4.9x10^3uL (1.8-7.7) Lymphocytes # (Auto) 1.4x10^3/uL (1.0-4.8) Monocytes # (Auto) 0.4x10^3/uL (0.0-1.1) Eosinophils # (Auto) 0.2x10^3/uL (0.0-0.7) Basophils # (Auto) 0.1x10^3/uL (0.0-0.2) Sodium Level 141mmol/L (136-145) Potassium Level 4.6mmol/L (3.5-5.1) Chloride Level 107mmol/L (98-107) Carbon Dioxide Level 26mmol/L (21-32) Anion Gap 8 (6-14) Blood Urea Nitrogen 15mg/dL (8-26) Creatinine 1.3mg/dL (0.7-1.3) Estimated GFR (Cockcroft-Gault) 52.5 Glucose Level 125mg/dL (70-99) Calcium Level 8.5mg/dL (8.5-10.1) Phosphorus Level 2.9mg/dL (2.6-4.7) Troponin I Quantitative 0.023ng/mL (0.000-0.055) Albumin 2.0g/dL (3.4-5.0) Microbiology 10/13/16 Blood Culture - Final, Complete NO GROWTH AFTER 5 DAYS 10/13/16 Urine Culture - Final, Complete 10/13/16 Urine Culture Result 1 (MANDEEP) - Final, Complete Medications Current Medications Fentanyl Citrate 50 mcg 50 mcg PRN Q15MIN PRN IV PAIN GREATER THAN 3/10 Last administered on 09/30/16at 19:35; Start 09/30/16 at 17:30; Stop 10/01/16 at 04 :24; Status DC Lactated Ringer's (Iv Lactated Ringers) 1,000 ml @ 100 mls/hr Q10H IV Last administered on 09/30/16at 19:35; Start 09/30/16 at 17:28; Stop 10/01/16 at 03 :27; Status DC Ondansetron HCl (Zofran) 4 mg 1X ONCE IV Last administered on 09/30/16at 17:44 ; Start 09/30/16 at 17:30; Stop 09/30/16 at 17:32; Status DC Fentanyl Citrate (Fentanyl 2ml Vial) 50 mcg 1X ONCE IV ; Start 09/30/16 at 19: 15; Stop 10/01/16 at 04:24; Status DC Ondansetron HCl (Zofran) 4 mg PRN Q8HRS PRN IV NAUSEA/VOMITING Last administered on 09/30/16at 22:07; Start 09/30/16 at 19:15; Stop 10/01/16 at 19 :14; Status DC Fentanyl Citrate 50 mcg 50 mcg PRN Q2HR PRN IV PAIN Last administered on at 16:54; Start 09/30/16 at 19:15; Stop 10/01/16 at 19:14; Status DC Sodium Chloride 1,000 ml @ 100 mls/hr Q10H IV ; Start 09/30/16 at 19:30; Stop 10/01/16 at 04:24; Status DC Potassium Chloride/Dextrose/ Sod Cl (KCl 20 Meq In D5W-1/2 NS) 1,000 ml @ 125 mls/hr Q8H IV Last administered on 10/04/16at 06:02; Start 09/30/16 at 20:00; Stop 10/04/16 at 10:21; Status DC Enoxaparin Sodium 40 mg 40 mg Q24H SQ Last administered on 10/13/16 08:14; Start 10/01/16 at 09:00; Stop 10/13/16 at 08:36; Status DC Levetiracetam/ Sodium Chloride (Keppra/Iv Sodium Chloride 0.9% 100ml) 105 ml @ 400 mls/hr Q12HR IV Last administered on 10/05/16 09:30; Start 09/30/16 at 21: 00; Stop 10/05/16 at 10:24; Status DC Morphine Sulfate 2 mg PRN Q4HRS PRN IV SEVERE PAIN Last administered on 10:13; Start 09/30/16 at 19:30; Stop 10/05/16 at 10:24; Status DC Acetaminophen (Tylenol) 650 mg PRN Q6HRS PRN [place] MILD PAIN / TEMP; Start at 19:30; Stop 10/05/16 at 10:24; Status DC Ondansetron HCl (Zofran) 4 mg PRN Q6HRS PRN IV NAUSEA/VOMITING Last administered on 10/07/16 08:28; Start 09/30/16 at 19:30; Stop 10/09/16 at 12:08 ; Status DC Benzocaine (Hurricaine One) 1 spray STK-MED ONCE .ROUTE ; Start 09/30/16 at 19: 51; Stop 09/30/16 at 19:52; Status DC Morphine Sulfate 4 mg PRN Q4HRS PRN IV PAIN Last administered on 10/05/16 08:08 ; Start 10/01/16 at 20:00; Stop 10/05/16 at 10:24; Status DC Clonidine HCl 1 patch 1 patch WEEKLY TD Last administered on 10/03/16at 12:30; Start 10/03/16 at 10:00; Stop 10/05/16 at 10:24; Status DC Piperacillin Sod/ Tazobactam Sod/ Sodium Chloride (Zosyn/Iv Sodium Chloride 0.9 % 50ml) 50 ml @ 100 mls/hr Q6HRS IV Last administered on 10/09/16 06:26; Start 10/04/16 at 11:00; Stop 10/09/16 at 10:55; Status DC Vancomycin HCl 1 each 1 each PRN DAILY PRN MC SEE COMMENTS Last administered on 10/07/16 11:11; Start 10/04/16 at 10:15; Stop 10/07/16 at 11:28; Status DC Vancomycin HCl/ Sodium Chloride (Iv Sodium Chloride 0.9% 250ml) 250 ml @ 250 mls/hr Q24H IV ; Start 10/04/16 at 10:15; Status UNV Labetalol HCl (Normodyne) 20 mg PRN Q6HRS PRN IVP HYPERTENSION, SEE COMMENTS; Start 10/04/16 at 10:15; Stop 10/05/16 at 10:24; Status DC Hydralazine HCl 10 mg 10 mg PRN Q6HRS PRN IVP ELEVATED BP, SEE COMMENTS Last administered on 10/06/16 19:17; Start 10/04/16 at 10:15; Stop 10/12/16 at 10:40 ; Status DC Amino Acids/ Glycerin/ Electrolytes 1,000 ml @ 40 mls/hr Q24H IV Last administered on 10/06/16 09:59; Start 10/04/16 at 10:15; Stop 10/07/16 at 09:06 ; Status DC Vancomycin HCl 2 gm/Sodium Chloride 500 ml @ 250 mls/hr 1X ONCE IV Last administered on 10/04/16at 11:26; Start 10/04/16 at 10:45; Stop 10/04/16 at 12 :44; Status DC Vancomycin HCl/ Sodium Chloride (Iv Sodium Chloride 0.9% 500ml Bag) 500 ml @ 250 mls/hr Q24H IV Last administered on 10/06/16 11:47; Start 10/05/16 at 12:00 ; Stop 10/07/16 at 11:28; Status DC Vancomycin HCl 1 each 1X ONCE MC Last administered on 10/06/16 11:30; Start at 11:30; Stop 10/06/16 at 11:31; Status DC Aspirin (Children'S Aspirin) 81 mg [id number] PO Last administered on 10/13/16 08:15; Start 10/05/16 at 11:00; Stop 10/13/16 at 08:29; Status DC Gabapentin (Neurontin) 600 mg QID PO Last administered on 10/13/16 08:14; Start 10/05/16 at 13:00; Stop 10/14/16 at 08:47; Status DC Levetiracetam (Keppra) 250 mg BID PO Last administered on 10/13/16 08:17; Start 10/05/16 at 11:00; Stop 10/14/16 at 08:47; Status DC Levothyroxine Sodium (Synthroid) 100 mcg DAILY07 PO Last administered on 05:08; Start 10/05/16 at 10:30; Stop 10/14/16 at 08:48; Status DC Metoprolol Succinate (Toprol Xl) 25 mg DAILY PO Last administered on 10/13/16 08:16; Start 10/05/16 at 11:00; Stop 10/14/16 at 08:47; Status DC Pramipexole Dihydrochloride (miraPEX) 0.5 mg [id number] PO Last administered on 10/13 08:15; Start 10/05/16 at 11:00; Stop 10/14/16 at 08:48; Status DC Simvastatin (Zocor) 20 mg HS PO Last administered on 10/12/16 21:07; Start 10/05 at 21:00; Stop 10/14/16 at 08:48; Status DC Carbidopa/Levodopa (Sinemet Cr) 1 tab.sa TID PO Last administered on 10/13/16 08:16; Start 10/05/16 at 11:00; Stop 10/14/16 at 08:48; Status DC Tamsulosin HCl (Flomax) 0.4 mg QHS PO Last administered on 10/12/16 21:07; Start 10/05/16 at 21:00; Stop 10/14/16 at 08:48; Status DC Tramadol HCl (Ultram) 50 mg QID PO Last administered on 10/13/16 08:17; Start 10/05/16 at 13:00; Stop 10/14/16 at 08:48; Status DC Acetaminophen (Tylenol) 650 mg PRN Q4HRS PRN PO MILD PAIN / TEMP Last administered on 10/13/16 00:17; Start 10/05/16 at 10:15; Stop 10/14/16 at 08:48; Status DC Prednisone (Prednisone) 20 mg 1X ONCE PO Last administered on 10/06/16 11:01; Start 10/06/16 at 10:30; Stop 10/06/16 at 10:31; Status DC Prednisone (Prednisone) 10 mg DAILY08 PO Last administered on 10/13/16 08:15; Start 10/07/16 at 08:00; Stop 10/13/16 at 08:29; Status DC Al Hydroxide/Mg Hydroxide (Mylanta Plus Xs) 30 ml PRN Q4HRS PRN PO HEARTBURN / GAS Last administered on 10/12/16 21:07; Start 10/07/16 at 08:45; Stop 10/14/16 at 08:48; Status DC Pantoprazole Sodium (Protonix) 40 mg DAILYAC PO Last administered on 10/13/16 05:08; Start 10/07/16 at 10:00; Stop 10/13/16 at 06:45; Status DC Furosemide 40 mg 40 mg DAILY PO Last administered on 10/08/16 08:42; Start 10/07 at 10:00; Stop 10/08/16 at 08:56; Status DC Sodium Chloride (Iv Sodium Chloride 0.45%) 1,000 ml @ 60 mls/hr CONT PRN IV . ; Start 10/08/16 at 09:00; Stop 10/08/16 at 16:06; Status DC Bisacodyl 10 mg 10 mg 1X ONCE MN Last administered on 10/08/16 10:11; Start at 09:30; Stop 10/08/16 at 09:31; Status DC Sodium Chloride (Iv Sodium Chloride 0.45%) 1,000 ml @ 60 mls/hr [id number] IV Last administered on 10/09/16 02:52; Start 10/08/16 at 10:15; Stop 10/09/16 at 12: 00; Status DC Cefpodoxime Proxetil (Vantin) 200 mg BID PO ; Start 10/09/16 at 11:00; Stop at 12:08; Status DC Cefpodoxime Proxetil (Vantin) 100 mg BID PO Last administered on 10/13/16 08:16 ; Start 10/09/16 at 21:00; Stop 10/13/16 at 08:29; Status DC Ondansetron HCl (Zofran) 4 mg STK-MED ONCE .ROUTE Last administered on 01:24; Start 10/13/16 at 01:19; Stop 10/13/16 at 01:20; Status DC Ondansetron HCl (Zofran) 4 mg PRN Q6HRS PRN IV NAUSEA/VOMITING Last administered on 10/22/16 05:32; Start 10/13/16 at 02:00 Pantoprazole Sodium 40 mg 40 mg DAILYAC IVP Last administered on 10/22/16 08: 16; Start 10/13/16 at 07:30 Dextrose/Sodium Chloride (Iv D5% - NS) 1,000 ml @ 60 mls/hr [id number] IV Last administered on 10/13/16 09:25; Start 10/13/16 at 08:30; Stop 10/13/16 at 11:01; Status DC Sodium Polystyrene Sulfonate 15 gm 15 gm 1X ONCE PO Last administered on 09:26; Start 10/13/16 at 08:30; Stop 10/13/16 at 08:31; Status DC Piperacillin Sod/ Tazobactam Sod 3.375 gm/Sodium Chloride 50 ml @ 100 mls/hr Q6HRS IV Last administered on 10/19/16 12:42; Start 10/13/16 at 09:00; Stop at 15:06; Status DC Dextrose/Sodium Chloride (Iv D5% - 1/2 NS) 1,000 ml @ 50 mls/hr Q20H IV Last administered on 10/17/16 00:16; Start 10/13/16 at 11:00; Stop 10/17/16 at 12:23 ; Status DC Ondansetron HCl (Zofran) 4 mg PRN Q6HRS PRN IV Nausea 1ST CHOICE; Start at 12:30; Stop 10/14/16 at 11:07; Status DC Fentanyl Citrate (Fentanyl 2ml Vial) 25 mcg PRN Q5MIN PRN IV MILD PAIN; Start 10/13/16 at 12:30; Stop 10/14/16 at 11:04; Status DC Fentanyl Citrate (Fentanyl 2ml Vial) 50 mcg PRN Q5MIN PRN IV MODERATE PAIN; Start 10/13/16 at 12:30; Stop 10/14/16 at 11:04; Status DC Morphine Sulfate 1 mg 1 mg PRN Q10MIN PRN IV SEVERE PAIN; Start 10/13/16 at 12: 30; Stop 10/14/16 at 11:00; Status DC Lactated Ringer's (Iv Lactated Ringers) 1,000 ml @ 0 mls/hr Q0M IV ; Start 10/13 at 12:17; Stop 10/14/16 at 00:16; Status DC Lidocaine HCl 2 ml 1X PRN PRN ID IV START; Start 10/13/16 at 12:30; Stop at 16:03; Status DC Hydromorphone HCl (Dilaudid) 0.5 mg PRN Q10MIN PRN IV SEV PAIN,Second choice; Start 10/13/16 at 12:30; Stop 10/14/16 at 11:04; Status DC Prochlorperazine Edisylate (Compazine) 5 mg PACU PRN PRN IV NAUSEA; Start at 12:30; Stop 10/14/16 at 11:00; Status DC Fentanyl Citrate (Fentanyl 2ml Vial) 50 mcg PRN Q5MIN PRN IV Acute Pain Last administered on 10/14/16t 10:04; Start 10/13/16 at 13:00; Stop 10/14/16 at 11:04 ; Status DC Morphine Sulfate 4 mg PRN Q10MIN PRN IV Moderate Pain; Start 10/13/16 at 13:00; Stop 10/14/16 at 11:00; Status DC Hydromorphone HCl (Dilaudid) 0.4 mg PRN Q10MIN PRN IV Moderate to severe pain; Start 10/13/16 at 13:00; Stop 10/14/16 at 11:04; Status DC Meperidine HCl (Demerol) 12.5 mg PRN Q5MIN PRN IV SHIVERING; Start 10/13/16 at 13:00; Stop 10/14/16 at 11:00; Status DC Prochlorperazine Edisylate (Compazine) 5 mg PRN Q6HRS PRN IV Nausea/Vomiting, 1st Choice; Start 10/13/16 at 13:00; Stop 10/14/16 at 11:00; Status DC Diphenhydramine HCl (Benadryl) 12.5 mg PRN Q2HR PRN IV ITCHING; Start 10/13/16 at 13:00; Stop 10/14/16 at 11:00; Status DC Midazolam HCl (Versed) 2 mg PRN 1X PRN IV PRIOR TO PROCEDURE; Start 10/13/16 at 13:00; Stop 10/14/16 at 11:07; Status DC Midazolam HCl (Versed) 1 mg PRN 1X PRN IV PRIOR TO PROCEDURE; Start 10/13/16 at 13:00; Stop 10/14/16 at 11:07; Status DC Fentanyl Citrate (Fentanyl 2ml Vial) 25 mcg PRN Q5MIN PRN IV X 2 DOSES FOR PAIN ; Start 10/13/16 at 13:00; Stop 10/14/16 at 11:04; Status DC Fentanyl Citrate 50 mcg 50 mcg PRN Q5MIN PRN IV X 2 DOSES FOR PAIN; Start at 13:00; Stop 10/14/16 at 11:04; Status DC Lactated Ringer's (Iv Lactated Ringers) 1,000 ml @ 125 mls/hr Q8H IV Last administered on 10/13/16t 13:30; Start 10/13/16 at 12:48; Stop 10/14/16 at 00:47; Status DC Lidocaine HCl 2 ml 1X PRN PRN ID IV START; Start 10/13/16 at 13:00; Stop at 16:03; Status DC Fentanyl Citrate (Fentanyl 2ml Vial) 25 mcg PRN Q2HR PRN IV PAIN MOD TO SEV; Start 10/13/16 at 20:30; Stop 10/14/16 at 14:15; Status DC Fentanyl Citrate (Fentanyl 2ml Vial) 50 mcg PRN Q2HR PRN IV PAIN MOD TO SEV Last administered on 10/14/16t 12:02; Start 10/13/16 at 20:30; Stop 10/14/16 at 14:15; Status DC Enoxaparin Sodium (Lovenox 40mg Syringe) 40 mg Q24H SQ Last administered on t 08:18; Start 10/14/16 at 09:00 Fentanyl Citrate 100 mcg 100 mcg STK-MED ONCE .ROUTE ; Start 10/13/16 at 13:27; Stop 10/14/16 at 07:31; Status DC Propofol (Diprivan) 20 ml @ As Directed STK-MED ONCE IV ; Start 10/13/16 at 13:27 ; Stop 10/14/16 at 07:31; Status DC Rocuronium [place] (Zemuron) 50 mg STK-MED ONCE .ROUTE ; Start 10/13/16 at 13:27 ; Stop 10/14/16 at 07:31; Status DC Lidocaine HCl 100 mg STK-MED ONCE .ROUTE ; Start 10/13/16 at 13:27; Stop at 07:31; Status DC Fentanyl Citrate (Fentanyl 2ml Vial) 100 mcg STK-MED ONCE .ROUTE ; Start at 13:27; Stop 10/14/16 at 07:31; Status DC Ephedrine Sulfate (Akovaz) 50 mg STK-MED ONCE .ROUTE ; Start 10/13/16 at 14:00; Stop 10/14/16 at 07:31; Status DC Phenylephrine HCl 1 mg STK-MED ONCE IV ; Start 10/13/16 at 14:25; Stop 10/14/16 at 07:31; Status DC Desflurane (Suprane) 60 ml STK-MED ONCE IH ; Start 10/13/16 at 14:25; Stop at 07:31; Status DC Dexamethasone Sodium Phosphate (Decadron) 20 mg STK-MED ONCE .ROUTE ; Start 10/13 at 14:25; Stop 10/14/16 at 07:31; Status DC Ondansetron HCl (Zofran) 4 mg STK-MED ONCE .ROUTE ; Start 10/13/16 at 14:25; Stop 10/14/16 at 07:31; Status DC Famotidine (Pepcid) 20 mg STK-MED ONCE .ROUTE ; Start 10/13/16 at 14:25; Stop 07/21 at 07:31; Status DC Rocuronium [place] (Zemuron) 50 mg STK-MED ONCE .ROUTE ; Start 10/13/16 at 16:19 ; Stop 10/14/16 at 07:31; Status DC Fentanyl Citrate (Fentanyl 2ml Vial) 100 mcg STK-MED ONCE .ROUTE ; Start at 16:21; Stop 10/14/16 at 07:31; Status DC Desflurane (Suprane) 90 ml STK-MED ONCE IH ; Start 10/13/16 at 16:53; Stop at 07:31; Status DC Glycopyrrolate (Robinul) 1 mg STK-MED ONCE .ROUTE ; Start 10/13/16 at 17:00; Stop 10/14/16 at 07:31; Status DC Neostigmine Methylsulfate 5 mg STK-MED ONCE .ROUTE ; Start 10/13/16 at 17:00; Stop 10/14/16 at 07:31; Status DC Phenylephrine HCl 1 mg STK-MED ONCE IV ; Start 10/13/16 at 18:14; Stop 10/14/16 at 07:31; Status DC Fentanyl Citrate (Fentanyl 2ml Vial) 100 mcg STK-MED ONCE .ROUTE ; Start at 18:20; Stop 10/14/16 at 07:31; Status DC Fentanyl Citrate 100 mcg 100 mcg STK-MED ONCE .ROUTE ; Start 10/13/16 at 19:17; Stop 10/14/16 at 07:31; Status DC Levetiracetam 500 mg/Sodium Chloride 105 ml @ 400 mls/hr Q12HR IV Last administered on 10/22/16 08:18; Start 10/14/16 at 09:00 Amino Acids/ Glycerin/ Electrolytes (Procalamine) 1,000 ml @ 80 mls/hr [id number] IV Last administered on 10/16/16 09:16; Start 10/14/16 at 11:15; Stop at 21:59; Status DC Morphine Sulfate 2 mg PRN Q4HRS PRN IV MODERATE PAIN Last administered on 00:57; Start 10/14/16 at 14:15 Morphine Sulfate 4 mg PRN Q4HRS PRN IV SEVERE PAIN Last administered on 08:17; Start 10/14/16 at 14:30 Info 1 each 1 each PRN DAILY PRN MC SEE COMMENTS Last administered on 11:09; Start 10/16/16 at 11:30 Sodium Chloride/ Potassium Chloride/ Potassium Phosphate/ Magnesium Sulfate/ Calcium Gluconate/ Multivitamins/ Minerals/Chromium/ Copper/Manganese/ Seleni/Zn /Total Parenteral Nutrition/Amino Acids/Dextrose/ Fat Emulsion Intravenous ( Sodium Chloride/ Potassium Phospha... 1,512 ml @ 63 mls/hr TPN CONT IV ; Start 10/16/16 at 22:00; Stop 10/17/16 at 12:50; Status DC Lidocaine/Sodium Bicarbonate 20 ml 20 ml STK-MED ONCE IJ ; Start 10/17/16 at 08: 20; Stop 10/17/16 at 08:21; Status DC Heparin Sodium/ Sodium Chloride 500 ml @ As Directed STK-MED ONCE .ROUTE ; Start 10/17/16 at 08:20; Stop 10/17/16 at 08:21; Status DC Lidocaine/Sodium Bicarbonate (Buffered Lidocaine 1%) 3 ml 1X ONCE IJ Last administered on 10/17/16 08:30; Start 10/17/16 at 08:30; Stop 10/17/16 at 08:31 ; Status DC Heparin Sodium/ Sodium Chloride 60 unit 1X ONCE IV Last administered on 08:30; Start 10/17/16 at 08:30; Stop 10/17/16 at 08:31; Status DC Iohexol (Omnipaque 300 Mg/ml) 50 ml STK-MED ONCE .ROUTE ; Start 10/17/16 at 09: 02; Stop 10/17/16 at 09:03; Status DC Iohexol (Omnipaque 300 Mg/ml) 43 ml 1X ONCE IART Last administered on 08:45; Start 10/17/16 at 09:30; Stop 10/17/16 at 09:33; Status DC Info (Do NOT chart on this entry -- for MONITORING) 1 each PRN DAILY PRN MC SEE COMMENTS; Start 10/17/16 at 09:45; Stop 10/19/16 at 09:44; Status DC Clonidine HCl (Catapres Tts-2) 1 patch WEEKLY TD Last administered on 11:58; Start 10/17/16 at 11:00 Labetalol HCl 20 mg 20 mg PRN Q6HRS PRN IVP HYPERTENSION, SEE COMMENTS; Start 10/17/16 at 10:30 Sodium Chloride 1,000 ml @ 60 mls/hr [id number] IV Last administered on 06:32; Start 10/17/16 at 12:30; Stop 10/19/16 at 10:06; Status DC Sodium Chloride 90 meq/Potassium Chloride 50 meq/ Potassium Phosphate 13.6 mmol/ Magnesium Sulfate 10 meq/ Calcium Gluconate 10 meq/ Multivitamins/ Minerals 10 ml/ Chromium/Copper/ Manganese/Seleni/ Zn 1 ml/Total Parenteral Nutrition/Amino Acids/Dextrose/ Fat Emulsion Intravenous 1,512 ml @ 63 mls/hr TPN CONT IV Last administered on 10/17/16 21:09; Start 10/17/16 at 22:00; Stop 10/18/16 at 21:59; Status DC Sodium Chloride/ Potassium Chloride/ Potassium Phosphate/ Magnesium Sulfate/ Calcium Gluconate/ Multivitamins/ Minerals/Chromium/ Copper/Manganese/ Seleni/Zn /Total Parenteral Nutrition/Amino Acids/Dextrose/ Fat Emulsion Intravenous ( Sodium Chloride/ Potassium Phospha... 1,512 ml @ 63 mls/hr TPN CONT IV Last administered on 10/18/16 21:24; Start 10/18/16 at 22:00; Stop 10/19/16 at 21:59 ; Status DC Furosemide 20 mg 20 mg 1X ONCE IVP Last administered on 10/19/16 11:01; Start 10/19/16 at 10:30; Stop 10/19/16 at 10:31; Status DC Sodium Chloride 90 meq/Sodium Acetate 40 meq/ Potassium Chloride 50 meq/ Potassium Phosphate 13.6 mmol/Magnesium Sulfate 10 meq/ Calcium Gluconate 10 meq / Multivitamins/ Minerals 10 ml/ Chromium/Copper/ Manganese/Seleni/ Zn 1 ml/ Total Parenteral Nutrition/Amino Acids/Dextro... 1,920 ml @ 80 mls/hr TPN CONT IV Last administered on 10/19/16 22:29; Start 10/19/16 at 22:00; Stop at 21:59; Status DC Sodium Chloride 1,000 ml @ 45 mls/hr [id number] IV Last administered on 22:24; Start 10/20/16 at 09:00; Stop 10/21/16 at 09:26; Status DC Magnesium Sulfate/ Dextrose 50 ml @ 25 mls/hr PRN DAILY PRN IV for Mag < 1.7 on am labs; Start 10/20/16 at 13:15 Sodium Chloride/ Sodium Acetate/ Potassium Chloride/ Potassium Phosphate/ Magnesium Sulfate/ Calcium Gluconate/ Multivitamins/ Minerals/Chromium/ Copper/ Manganese/ Seleni/Zn/Total Parenteral Nutrition/Amino Acids/Dextrose/ Fat Emulsion Intravenous (Sodium Chloride/ Potass... 1,920 ml @ 80 mls/hr TPN CONT IV Last administered on 10/20/16 22:23; Start 10/20/16 at 22:00; Stop at 21:59; Status DC Acetaminophen/ Hydrocodone Bitart 1 tab 1 tab PRN Q4HRS PRN PO PAIN Last administered on 10/21/16 23:51; Start 10/21/16 at 09:30; Stop 10/22/16 at 10:39 ; Status DC Sodium Chloride/ Sodium Acetate/ Potassium Chloride/ Potassium Phosphate/ Magnesium Sulfate/ Calcium Gluconate/ Multivitamins/ Minerals/Chromium/ Copper/ Manganese/ Seleni/Zn/Total Parenteral Nutrition/Amino Acids/Dextrose/ Fat Emulsion Intravenous (Sodium Chloride/ Potass... 1,920 ml @ 80 mls/hr TPN CONT IV Last administered on 10/21/16 22:22; Start 10/21/16 at 22:00; Stop at 21:59 Metoclopramide HCl (Reglan) 10 mg 1X ONCE IV Last administered on 10/22/16 01 :56; Start 10/22/16 at 02:00; Stop 10/22/16 at 02:01; Status DC Lorazepam (Ativan) 1 mg 1X ONCE IV Last administered on 10/22/16 02:35; Start 10/22/16 at 02:30; Stop 10/22/16 at 02:31; Status DC Morphine Sulfate 2 mg PRN Q1HR PRN IV PAIN Last administered on 10/22/16 05:33 ; Start 10/22/16 at 02:30 Famotidine (Pepcid) 20 mg 1X ONCE IVP Last administered on 10/22/16 02:35; Start 10/22/16 at 02:30; Stop 10/22/16 at 02:31; Status DC Hydralazine HCl (Apresoline) 10 mg PRN Q6HRS PRN IVP ELEVATED BP, SEE COMMENTS ; Start 10/22/16 at 10:45 Iohexol (Omnipaque 300 Mg/ml) 60 ml 1X ONCE PO Last administered on 10/22/16t 11:43; Start 10/22/16 at 11:00; Stop 10/22/16 at 11:01; Status DC Iohexol (Omnipaque 300 Mg/ml) 60 ml 1X ONCE IV Last administered on 10/22/16t 11:19; Start 10/22/16 at 11:00; Stop 10/22/16 at 11:01; Status DC Info (Do NOT chart on this entry -- for MONITORING) 1 each PRN DAILY PRN MC SEE COMMENTS; Start 10/22/16 at 11:00; Stop 10/24/16 at 10:59 Active Scripts Active Hydrocodone-Apap 5-325 (Hydrocodone Bit/Acetaminophen) 1 Each Tablet 1 Tab PO PRN Q6HRS PRN Metoprolol Succinate ( Xl ) (Metoprolol Succinate) 25 Mg Tab.er.24h 25 Mg PO DAILY Reported Flomax (Tamsulosin Hcl) 0.4 Mg Cap.er.24h 1 Cap PO QHS Tramadol Hcl 100 Mg Tab.er.24h 100 Mg PO QID Levetiracetam 250 Mg Tablet 250 Mg PO BID Dulcolax (Bisacodyl) 10 Mg Supp.rect 10 Mg RC PRN DAILY PRN Maalox Advanced Suspension (Mag Hydrox/Al Hydrox/Simeth) 770 Ml Oral.susp 30 Ml PO Q2HR PRN Milk Of Magnesia (Magnesium Hydroxide) 400 Mg/5 Ml Oral.susp 30 Ml PO DAILY PRN Robitussin Cough-Chest Dm Liq (Guaifenesin/Dextromethorphan) 118 Ml Liquid 10 Ml PO Q4HRS PRN Trazodone Hcl 50 Mg Tablet 1 Tab PO QHS Tylenol (Acetaminophen) 325 Mg Tablet 650 Mg PO Q6HRS PRN Pramipexole Dihydrochloride (Pramipexole Di-Hcl) 0.5 Mg Tablet 0.5 Mg PO TID Simvastatin 20 Mg Tablet 1 Tab PO QHS Levothyroxine Sodium 100 Mcg Tablet 1 Tab PO DAILY Gabapentin 800 Mg Tablet 800 Mg PO QID Sinemet 25-100 Mg Tablet (Carbidopa/Levodopa) 1 Each Tablet 2 Tab PO TID Aspirin 81 Mg Tab.chew 1 Tab PO DAILY Vitals/I & O Vital Sign - Last 24 Hours 10/21/16 10/21/16 10/21/16 10/21/16 14:34 15:00 19:00 19:27 Temp 98.1 97.7 98.1 97.7 Pulse 78 81 Resp 18 18 B/P 155/77 156/69 Pulse Ox 94 96 97 96 O2 Delivery Nasal Cannula Nasal Cannula Nasal Cannula Nasal Cannula O2 Flow Rate 3.0 3.0 3.0 3.0 10/21/16 10/21/16 10/21/16 10/21/16 20:55 22:26 23:41 23:51 Temp 98.1 98.1 Pulse 83 Resp 20 18 20 B/P 154/59 Pulse Ox 96 94 94 O2 Delivery Nasal Cannula Nasal Cannula Nasal Cannula Nasal Cannula O2 Flow Rate 4.0 3.0 3.0 3.0 10/22/16 10/22/16 10/22/16 10/22/16 00:51 00:57 01:00 01:08 Pulse 96 Resp 24 B/P 200/83 Pulse Ox 93 94 98 O2 Delivery Nasal Cannula Nasal Cannula Nasal Cannula Nasal Cannula O2 Flow Rate 4.0 4.0 4.0 4.0 10/22/16 10/22/16 10/22/16 10/22/16 01:10 01:18 01:25 01:30 Pulse 94 87 85 95 Resp 24 B/P 180/76 177/80 169/80 173/69 O2 Delivery Nasal Cannula Nasal Cannula Nasal Cannula Nasal Cannula O2 Flow Rate 4.0 4.0 4.0 4.0 10/22/16 10/22/16 10/22/16 10/22/16 01:35 01:35 01:38 01:45 Pulse 92 92 Resp 24 B/P 168/75 169/80 Pulse Ox 93 93 O2 Delivery Nasal Cannula Nasal Cannula Nasal Cannula O2 Flow Rate 4.0 4.0 4.0 10/22/16 10/22/16 10/22/16 10/22/16 02:00 02:30 02:35 03:19 Temp 98.4 98.4 98.4 98.4 Pulse 96 97 91 Resp 24 24 22 22 B/P 177/87 183/73 180/57 Pulse Ox 94 93 O2 Delivery Nasal Cannula Nasal Cannula Nasal Cannula Nasal Cannula O2 Flow Rate 4.0 4.0 4.0 4.0 10/22/16 10/22/16 10/22/16 10/22/16 05:33 06:28 07:00 07:30 Temp 98.1 98.1 Pulse 100 Resp 20 20 20 B/P 195/76 Pulse Ox 93 93 96 O2 Delivery Nasal Cannula Nasal Cannula Nasal Cannula Nasal Cannula O2 Flow Rate 4.0 4.0 4.0 4.0 10/22/16 10/22/16 10/22/16 08:17 09:00 11:00 Temp 98.6 98.6 Pulse 95 Resp 20 20 20 B/P 145/72 Pulse Ox 95 O2 Delivery Nasal Cannula Nasal Cannula Nasal Cannula O2 Flow Rate 4.0 4.0 4.0 Intake and Output 10/21/16 10/21/16 10/22/16 15:00 23:00 07:00 Intake Total 1360 ml 2471 ml Output Total 900 ml Balance 1360 ml 1571 ml KENDRICK CULVER MD Oct 22, 2016 12:23
--- NOTE | 2016-10-22 12:49 | RAD ---
Indication chest pain. Contrast imaging through the chest was performed. 60 cc of Omnipaque 300 was administered. MIP images were generated and reviewed. Note is made of a previous examination 01/19/2016. The pulmonary arteries are not optimally opacified to assess for pulmonary emboli. No large central pulmonary emboli are seen but no determination can be made with regards to lobar, segmental or subsegmental branches. The aorta is adequately opacified and appears unremarkable. No aneurysm or dissection is seen. There is a trace amount of pleural fluid bilaterally. There is some volume loss at the lung bases left greater than right likely reflecting atelectasis or scar. A dominant soft tissue mass in either lung is not seen. Significant hilar or mediastinal adenopathy is not seen. There is a moderate-sized hiatus hernia. The esophagus is dilated and partially fluid-filled throughout its course (particularly at below the level of the [place]) the stomach is distended with fluid and gas. An acute finding in the upper abdomen is not seen. Neuro stimulating device is noted. IMPRESSION: Significantly compromised study evaluating for potential pulmonary emboli. No definite large central pulmonary emboli are seen. Normal thoracic aorta. Dilated and fluid-filled esophagus. Moderate hiatus hernia. Distended stomach with fluid and gas. An acute finding in the chest is not seen PQRS Compliance Statement: One or more of the following individualized dose reduction techniques were utilized for this examination: 1. Automated exposure control 2. Adjustment of the mA and/or kV according to patient size 3. Use of iterative reconstruction technique
[2016-10-22] MEDS: TPN PER PHARMACY MC PRN (13:03)
--- NOTE | 2016-10-22 14:26 | PDOC ---
Provider Note Provider Note Patient seen ans consult dictated TANISHA BERNSTEIN MD Oct 22, 2016 14:26
[2016-10-22] MEDS ORDERED: AMINO ACIDS IV SCH ×11 (22:00)
[2016-10-22] MEDS ORDERED: TOTAL PARENTERAL NUTRITION IV SCH ×11 (22:00)
[2016-10-22] MEDS ORDERED: DEXTROSE 70% IV SCH ×11 (22:00)
[2016-10-22] MEDS ORDERED: [UNRECOGNIZED DRUG - OTHER] IV SCH ×11 (22:00)
[2016-10-23] MEDS: MORPHINE SULFATE 4 MG/ML DISP.SYRIN. IV PRN ×2 (02:26→09:20)
[2016-10-23 03:37] VITALS: BP 146/65
[2016-10-23 07:00] VITALS: BP 152/69
[2016-10-23 07:05] LABS: ALBUMIN 1.7 g/dL (3.4-5.0); CALCIUM 8.3 mg/dL (8.5-10.1); CREATININE 1.2 mg/dL (0.7-1.3); GFR 57.5; MAGNESIUM 1.8 mg/dL (1.8-2.4); PHOSPHORUS 2.8 mg/dL (2.6-4.7); POTASSIUM 4.6 mmol/L (3.5-5.1)
--- NOTE | 2016-10-23 08:24 | EKG ---
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
[2016-10-23] MEDS: LEVETIRACETAM 500 MG in IV NORMAL SALINE 100ML 100 ML IV SCH ×2 (09:18→21:36)
[2016-10-23] MEDS: PANTOPRAZOLE IV PUSH 40 MG VIAL. IVP SCH (09:29)
[2016-10-23] MEDS: ENOXAPARIN 40 MG/0.4 ML DISP.SYRIN. SQ SCH (09:30)
--- NOTE | 2016-10-23 10:13 | PDOC ---
Subjective: Subjective: Small amounts of vomiting, "spitting up." Didn't have NG replaced. No abd pain. Passing gas. Objective: Vital Signs: Vital Signs Date Time Temp Pulse Resp B/P Pulse Ox O2 Delivery O2 Flow Rate FiO2 10/23/16 09:20 Nasal Cannula 4.0 10/23/16 07:00 98.8 86 18 152/69 93 98.8 Labs: Laboratory Tests Test 10/22/16 12:25 10/23/16 05:50 Troponin I Quantitative < 0.017ng/mL Sodium Level 136mmol/L Potassium Level 4.6mmol/L Chloride Level 103mmol/L Carbon Dioxide Level 26mmol/L Anion Gap 7 Blood Urea Nitrogen 16mg/dL Creatinine 1.2mg/dL Estimated GFR (Cockcroft-Gault) 57.5 Glucose Level 125mg/dL Calcium Level 8.3mg/dL Phosphorus Level 2.8mg/dL Magnesium Level 1.8mg/dL Albumin 1.7g/dL Thyroid Stimulating Hormone (TSH) 12.563uIU/mL Imaging: Acute Abd Series 10/22/16 IMPRESSION: Slightly improved aeration of the lungs. Mildly improved abdominal gas pattern relative to the previous study. Chest CTA 10/22/16 IMPRESSION: Significantly compromised study evaluating for potential pulmonary emboli. No definite large central pulmonary emboli are seen. Normal thoracic aorta. Dilated and fluid-filled esophagus. Moderate hiatus hernia. Distended stomach with fluid and gas. An acute finding in the chest is not seen. PE: GEN: NAD, in chair LUNGS: nasal cannula HEART: RRR ABD: BS+, distended NEURO/PSYCH: A & O 3 OTHER: small amounts of green liquid (mostly dried) in emesis basin A/P: SBO s/p exp lap 10/13/15 w/ CONG, post-op ileus -on TPN, NPO -imaging from yesterday as above; dilated/fluid-filled esophagus and hiatal hernia on CT -- Will review w/ Dr. Amin. GAYLA CLEMENTE Oct 23, 2016 10:13
--- NOTE | 2016-10-23 10:57 | CONS ---
DATE OF CONSULTATION: HISTORY OF PRESENT ILLNESS: This is an 86-year-old white male who has been hospitalized since 09/30/2016 for small-bowel obstruction that subsequently needed surgery. He now has gastroparesis. Last night, he complained of severe pain in the left lower chest and left upper part of the abdomen. He said it was very severe. It was associated with nausea and vomiting. An EKG was done, which was not very helpful because he has parkinsonism and there was lot of artifact. He, I believe, was in atrial fibrillation at the time. The rhythm is definitely irregular. The rate is about 100 per minute. There were no ST or T-wave changes of significance. He says he had the pain for about 2 hours. The cardiac enzymes this morning despite the prolonged pain was 0.023 and this afternoon was 0.017. This patient also has other medical problems of: 1. Seizure disorder. 2. History of DVT with inferior vena cava filter. 3. Chronic kidney disease. 4. Lumbosacral stenosis with stimulator. 5. Peripheral neuropathy. 6. Hypothyroidism with the previous TSH being mildly elevated to 5. He is on thyroid supplements at a dosage of 100 mcg a day. He has not been receiving the Synthroid since his hospitalization. It is thus very unlikely that he has hyperthyroidism secondary to the thyroid supplements. 7. Dyslipidemia. 8. 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 He had had coronary arteriograms in 1997, which showed normal coronaries. He, however, believes he has had an episode of myocardial infarction in the past. MEDICATIONS: In the hospital were reviewed. At home, he was taking aspirin, carbidopa/levodopa, gabapentin, Keppra, Synthroid, magnesium, Toprol-XL, Mirapex, simvastatin, tamsulosin and tramadol. PHYSICAL EXAMINATION: GENERAL: He was alert. He remembered having the pain last night. He pointed to where he had the pain. He has no pain at the present time. He has also said that he was nauseated and had vomited once last night at around the time of the pain. VITAL SIGNS: The heart rate was 100 per minute and regular. The blood pressure was 156/90. He is now in sinus rhythm. LUNGS: Clear. HEART: The heart sounds are normal with no murmur or gallop. ABDOMEN: Soft. An EKG as stated before shows irregular rhythm with no P waves, probably in atrial fibrillation. The rate is about 100 beats per minute. There was significant artifact because of his parkinsonism. The cardiac enzymes are not significantly elevated. IMPRESSION AND PLAN: 1. Chest pain, probably not cardiac in etiology. 2. Paroxysmal atrial fibrillation, probably asymptomatic and has been recurrent. We will obtain an echocardiogram to re-evaluate his left ventricular systolic and diastolic function. We will continue to observe him for the atrial fibrillation. He is not a candidate for chronic anticoagulation. I do not think that further evaluation for the chest pain is necessary at this time. Thank you for asking me to see him. TANISHA BERNSTEIN MD DR: JIMBO/lexy JOB#: [id number] / [id number]
[2016-10-23 11:00] VITALS: BP 165/80
[2016-10-23] MEDS: MORPHINE SULFATE 2 MG/ML DISP.SYRIN. IV PRN ×6 (11:28→21:38)
--- NOTE | 2016-10-23 11:50 | PDOC ---
PROGRESS NOTES Subjective Subjective feels better. has not had a BM. CTA chest neg for PE or aortic dissection. has dilated esophagus and stomach. acute abdominal series showed less bowel dilatation and no evidence of obstruction. has mildly dilated stomach. discussed with dr. mercer. has paroxysmal a fib but no t a good candidate for anticoagulation. lab reviewed/ Objective Objective Vital Signs Date Time Temp Pulse Resp B/P Pulse Ox O2 Delivery O2 Flow Rate FiO2 10/23/16 11:28 Nasal Cannula 4.0 10/23/16 11:00 98.1 82 18 165/80 97 98.1 Intake and Output 10/23/16 07:00 Intake Total 105 ml Output Total 1625 ml Balance -1520 ml Intake Oral 0 ml IV Total 105 ml Output Urine Total 1625 ml Physical Exam Abdomen: Soft, Other (bowel sounds heard. wound okay. not tender. obese) Heart: Regular rate, Normal S1, Normal S2 Extremities: Other (1 plus edema of upper and lower extremities) General: Alert HEENT: Atraumatic Lungs: Clear to auscultation Neuro: Normal speech Psych/Mental Status: Mood NL Skin: No rashes Assessment Assessment Problems Medical Problems:Small-bowel obstruction resolved exploratory laparotomy 10/13/16. lysis of adhesions. bowel viable. post op ileus 2. Seizure disorder. 3. Parkinson's disease. 4. Hypothyroidism. 5. Peripheral neuropathy. 6. Hypertension. 7. Chronic kidney disease stage III. klebsiella uti treated suspected gout synovitis resolved peripheral edema critical illness myopathy hematemesis once resolved paroxysmal atrial fibrillation. not a good candidate for anticoagulants (1) SBO (small bowel obstruction) Status: Acute Plan Plan of Care iv lasix times 1 npo TPN PT and OT iv synthroid and keppra and protonix labetolol and hyralazine iv prn and catapress patch Comment Review of Relevant I have reviewed the following items [place] (where applicable) has been applied. Labs Laboratory Tests Test 10/22/16 01:12 10/22/16 12:25 10/23/16 05:50 White Blood Count 6.9x10^3/uL (4.0-11.0) Red Blood Count 2.60x10^6/uL (4.30-5.70) Hemoglobin 8.2g/dL (13.0-17.5) Hematocrit 25.5% (39.0-53.0) Mean Corpuscular Volume 98fL (79-100) Mean Corpuscular Hemoglobin 32pg (25-35) Mean Corpuscular Hemoglobin Concent 32g/dL (31-37) Red Cell Distribution Width 15.2% (11.5-14.5) Platelet Count 259x10^3/uL (140-400) Neutrophils (%) (Auto) 70% (31-73) Lymphocytes (%) (Auto) 20% (24-48) Monocytes (%) (Auto) 6% (0-9) Eosinophils (%) (Auto) 3% (0-3) Basophils (%) (Auto) 1% (0-3) Neutrophils # (Auto) 4.9x10^3uL (1.8-7.7) Lymphocytes # (Auto) 1.4x10^3/uL (1.0-4.8) Monocytes # (Auto) 0.4x10^3/uL (0.0-1.1) Eosinophils # (Auto) 0.2x10^3/uL (0.0-0.7) Basophils # (Auto) 0.1x10^3/uL (0.0-0.2) Sodium Level 141mmol/L (136-145) 136mmol/L (136-145) Potassium Level 4.6mmol/L (3.5-5.1) 4.6mmol/L (3.5-5.1) Chloride Level 107mmol/L (98-107) 103mmol/L (98-107) Carbon Dioxide Level 26mmol/L (21-32) 26mmol/L (21-32) Anion Gap 8 (6-14) 7 (6-14) Blood Urea Nitrogen 15mg/dL (8-26) 16mg/dL (8-26) Creatinine 1.3mg/dL (0.7-1.3) 1.2mg/dL (0.7-1.3) Estimated GFR (Cockcroft-Gault) 52.5 57.5 Glucose Level 125mg/dL (70-99) 125mg/dL (70-99) Calcium Level 8.5mg/dL (8.5-10.1) 8.3mg/dL (8.5-10.1) Phosphorus Level 2.9mg/dL (2.6-4.7) 2.8mg/dL (2.6-4.7) Troponin I Quantitative 0.023ng/mL (0.000-0.055) < 0.017ng/mL (0.000-0.055) Albumin 2.0g/dL (3.4-5.0) 1.7g/dL (3.4-5.0) Magnesium Level 1.8mg/dL (1.8-2.4) Thyroid Stimulating Hormone (TSH) 12.563uIU/mL (0.358-3.74) Laboratory Tests Test 10/22/16 12:25 10/23/16 05:50 Troponin I Quantitative < 0.017ng/mL (0.000-0.055) Sodium Level 136mmol/L (136-145) Potassium Level 4.6mmol/L (3.5-5.1) Chloride Level 103mmol/L (98-107) Carbon Dioxide Level 26mmol/L (21-32) Anion Gap 7 (6-14) Blood Urea Nitrogen 16mg/dL (8-26) Creatinine 1.2mg/dL (0.7-1.3) Estimated GFR (Cockcroft-Gault) 57.5 Glucose Level 125mg/dL (70-99) Calcium Level 8.3mg/dL (8.5-10.1) Phosphorus Level 2.8mg/dL (2.6-4.7) Magnesium Level 1.8mg/dL (1.8-2.4) Albumin 1.7g/dL (3.4-5.0) Thyroid Stimulating Hormone (TSH) 12.563uIU/mL (0.358-3.74) Microbiology 10/13/16 Blood Culture - Final, Complete NO GROWTH AFTER 5 DAYS 10/13/16 Urine Culture - Final, Complete 10/13/16 Urine Culture Result 1 (MANDEEP) - Final, Complete Medications Current Medications Fentanyl Citrate 50 mcg 50 mcg PRN Q15MIN PRN IV PAIN GREATER THAN 3/10 Last administered on 09/30/16at 19:35; Start 09/30/16 at 17:30; Stop 10/01/16 at 04 :24; Status DC Lactated Ringer's (Iv Lactated Ringers) 1,000 ml @ 100 mls/hr Q10H IV Last administered on 09/30/16at 19:35; Start 09/30/16 at 17:28; Stop 10/01/16 at 03 :27; Status DC Ondansetron HCl (Zofran) 4 mg 1X ONCE IV Last administered on 09/30/16at 17:44 ; Start 09/30/16 at 17:30; Stop 09/30/16 at 17:32; Status DC Fentanyl Citrate (Fentanyl 2ml Vial) 50 mcg 1X ONCE IV ; Start 09/30/16 at 19: 15; Stop 10/01/16 at 04:24; Status DC Ondansetron HCl (Zofran) 4 mg PRN Q8HRS PRN IV NAUSEA/VOMITING Last administered on 09/30/16at 22:07; Start 09/30/16 at 19:15; Stop 10/01/16 at 19 :14; Status DC Fentanyl Citrate 50 mcg 50 mcg PRN Q2HR PRN IV PAIN Last administered on at 16:54; Start 09/30/16 at 19:15; Stop 10/01/16 at 19:14; Status DC Sodium Chloride 1,000 ml @ 100 mls/hr Q10H IV ; Start 09/30/16 at 19:30; Stop 10/01/16 at 04:24; Status DC Potassium Chloride/Dextrose/ Sod Cl (KCl 20 Meq In D5W-1/2 NS) 1,000 ml @ 125 mls/hr Q8H IV Last administered on 10/04/16at 06:02; Start 09/30/16 at 20:00; Stop 10/04/16 at 10:21; Status DC Enoxaparin Sodium 40 mg 40 mg Q24H SQ Last administered on 10/13/16 08:14; Start 10/01/16 at 09:00; Stop 10/13/16 at 08:36; Status DC Levetiracetam/ Sodium Chloride (Keppra/Iv Sodium Chloride 0.9% 100ml) 105 ml @ 400 mls/hr Q12HR IV Last administered on 10/05/16 09:30; Start 09/30/16 at 21: 00; Stop 10/05/16 at 10:24; Status DC Morphine Sulfate 2 mg PRN Q4HRS PRN IV SEVERE PAIN Last administered on 10:13; Start 09/30/16 at 19:30; Stop 10/05/16 at 10:24; Status DC Acetaminophen (Tylenol) 650 mg PRN Q6HRS PRN NM MILD PAIN / TEMP; Start at 19:30; Stop 10/05/16 at 10:24; Status DC Ondansetron HCl (Zofran) 4 mg PRN Q6HRS PRN IV NAUSEA/VOMITING Last administered on 10/07/16 08:28; Start 09/30/16 at 19:30; Stop 10/09/16 at 12:08 ; Status DC Benzocaine (Hurricaine One) 1 spray STK-MED ONCE .ROUTE ; Start 09/30/16 at 19: 51; Stop 09/30/16 at 19:52; Status DC Morphine Sulfate 4 mg PRN Q4HRS PRN IV PAIN Last administered on 10/05/16 08:08 ; Start 10/01/16 at 20:00; Stop 10/05/16 at 10:24; Status DC Clonidine HCl 1 patch 1 patch WEEKLY TD Last administered on 10/03/16at 12:30; Start 10/03/16 at 10:00; Stop 10/05/16 at 10:24; Status DC Piperacillin Sod/ Tazobactam Sod/ Sodium Chloride (Zosyn/Iv Sodium Chloride 0.9 % 50ml) 50 ml @ 100 mls/hr Q6HRS IV Last administered on 10/09/16 06:26; Start 10/04/16 at 11:00; Stop 10/09/16 at 10:55; Status DC Vancomycin HCl 1 each 1 each PRN DAILY PRN MC SEE COMMENTS Last administered on 10/07/16 11:11; Start 10/04/16 at 10:15; Stop 10/07/16 at 11:28; Status DC Vancomycin HCl/ Sodium Chloride (Iv Sodium Chloride 0.9% 250ml) 250 ml @ 250 mls/hr Q24H IV ; Start 10/04/16 at 10:15; Status UNV Labetalol HCl (Normodyne) 20 mg PRN Q6HRS PRN IVP HYPERTENSION, SEE COMMENTS; Start 10/04/16 at 10:15; Stop 10/05/16 at 10:24; Status DC Hydralazine HCl 10 mg 10 mg PRN Q6HRS PRN IVP ELEVATED BP, SEE COMMENTS Last administered on 10/06/16 19:17; Start 10/04/16 at 10:15; Stop 10/12/16 at 10:40 ; Status DC Amino Acids/ Glycerin/ Electrolytes 1,000 ml @ 40 mls/hr Q24H IV Last administered on 10/06/16 09:59; Start 10/04/16 at 10:15; Stop 10/07/16 at 09:06 ; Status DC Vancomycin HCl 2 gm/Sodium Chloride 500 ml @ 250 mls/hr 1X ONCE IV Last administered on 10/04/16at 11:26; Start 10/04/16 at 10:45; Stop 10/04/16 at 12 :44; Status DC Vancomycin HCl/ Sodium Chloride (Iv Sodium Chloride 0.9% 500ml Bag) 500 ml @ 250 mls/hr Q24H IV Last administered on 10/06/16 11:47; Start 10/05/16 at 12:00 ; Stop 10/07/16 at 11:28; Status DC Vancomycin HCl 1 each 1X ONCE MC Last administered on 10/06/16 11:30; Start at 11:30; Stop 10/06/16 at 11:31; Status DC Aspirin (Children'S Aspirin) 81 mg [id number] PO Last administered on 10/13/16 08:15; Start 10/05/16 at 11:00; Stop 10/13/16 at 08:29; Status DC Gabapentin (Neurontin) 600 mg QID PO Last administered on 10/13/16 08:14; Start 10/05/16 at 13:00; Stop 10/14/16 at 08:47; Status DC Levetiracetam (Keppra) 250 mg BID PO Last administered on 10/13/16 08:17; Start 10/05/16 at 11:00; Stop 10/14/16 at 08:47; Status DC Levothyroxine Sodium (Synthroid) 100 mcg DAILY07 PO Last administered on 05:08; Start 10/05/16 at 10:30; Stop 10/14/16 at 08:48; Status DC Metoprolol Succinate (Toprol Xl) 25 mg DAILY PO Last administered on 10/13/16 08:16; Start 10/05/16 at 11:00; Stop 10/14/16 at 08:47; Status DC Pramipexole Dihydrochloride (miraPEX) 0.5 mg [id number] PO Last administered on 10/13 08:15; Start 10/05/16 at 11:00; Stop 10/14/16 at 08:48; Status DC Simvastatin (Zocor) 20 mg HS PO Last administered on 10/12/16 21:07; Start 10/05 at 21:00; Stop 10/14/16 at 08:48; Status DC Carbidopa/Levodopa (Sinemet Cr) 1 tab.sa TID PO Last administered on 10/13/16 08:16; Start 10/05/16 at 11:00; Stop 10/14/16 at 08:48; Status DC Tamsulosin HCl (Flomax) 0.4 mg QHS PO Last administered on 10/12/16 21:07; Start 10/05/16 at 21:00; Stop 10/14/16 at 08:48; Status DC Tramadol HCl (Ultram) 50 mg QID PO Last administered on 10/13/16 08:17; Start 10/05/16 at 13:00; Stop 10/14/16 at 08:48; Status DC Acetaminophen (Tylenol) 650 mg PRN Q4HRS PRN PO MILD PAIN / TEMP Last administered on 10/13/16 00:17; Start 10/05/16 at 10:15; Stop 10/14/16 at 08:48; Status DC Prednisone (Prednisone) 20 mg 1X ONCE PO Last administered on 10/06/16 11:01; Start 10/06/16 at 10:30; Stop 10/06/16 at 10:31; Status DC Prednisone (Prednisone) 10 mg DAILY08 PO Last administered on 10/13/16 08:15; Start 10/07/16 at 08:00; Stop 10/13/16 at 08:29; Status DC Al Hydroxide/Mg Hydroxide (Mylanta Plus Xs) 30 ml PRN Q4HRS PRN PO HEARTBURN / GAS Last administered on 10/12/16 21:07; Start 10/07/16 at 08:45; Stop 10/14/16 at 08:48; Status DC Pantoprazole Sodium (Protonix) 40 mg DAILYAC PO Last administered on 10/13/16 05:08; Start 10/07/16 at 10:00; Stop 10/13/16 at 06:45; Status DC Furosemide 40 mg 40 mg DAILY PO Last administered on 10/08/16 08:42; Start 10/07 at 10:00; Stop 10/08/16 at 08:56; Status DC Sodium Chloride (Iv Sodium Chloride 0.45%) 1,000 ml @ 60 mls/hr CONT PRN IV . ; Start 10/08/16 at 09:00; Stop 10/08/16 at 16:06; Status DC Bisacodyl 10 mg 10 mg 1X ONCE NM Last administered on 10/08/16 10:11; Start at 09:30; Stop 10/08/16 at 09:31; Status DC Sodium Chloride (Iv Sodium Chloride 0.45%) 1,000 ml @ 60 mls/hr [id number] IV Last administered on 10/09/16 02:52; Start 10/08/16 at 10:15; Stop 10/09/16 at 12: 00; Status DC Cefpodoxime Proxetil (Vantin) 200 mg BID PO ; Start 10/09/16 at 11:00; Stop at 12:08; Status DC Cefpodoxime Proxetil (Vantin) 100 mg BID PO Last administered on 10/13/16 08:16 ; Start 10/09/16 at 21:00; Stop 10/13/16 at 08:29; Status DC Ondansetron HCl (Zofran) 4 mg STK-MED ONCE .ROUTE Last administered on 01:24; Start 10/13/16 at 01:19; Stop 10/13/16 at 01:20; Status DC Ondansetron HCl (Zofran) 4 mg PRN Q6HRS PRN IV NAUSEA/VOMITING Last administered on 10/22/16 22:01; Start 10/13/16 at 02:00 Pantoprazole Sodium 40 mg 40 mg DAILYAC IVP Last administered on 10/23/16 09: 29; Start 10/13/16 at 07:30 Dextrose/Sodium Chloride (Iv D5% - NS) 1,000 ml @ 60 mls/hr [id number] IV Last administered on 10/13/16 09:25; Start 10/13/16 at 08:30; Stop 10/13/16 at 11:01; Status DC Sodium Polystyrene Sulfonate 15 gm 15 gm 1X ONCE PO Last administered on 09:26; Start 10/13/16 at 08:30; Stop 10/13/16 at 08:31; Status DC Piperacillin Sod/ Tazobactam Sod 3.375 gm/Sodium Chloride 50 ml @ 100 mls/hr Q6HRS IV Last administered on 10/19/16 12:42; Start 10/13/16 at 09:00; Stop at 15:06; Status DC Dextrose/Sodium Chloride (Iv D5% - 1/2 NS) 1,000 ml @ 50 mls/hr Q20H IV Last administered on 10/17/16 00:16; Start 10/13/16 at 11:00; Stop 10/17/16 at 12:23 ; Status DC Ondansetron HCl (Zofran) 4 mg PRN Q6HRS PRN IV Nausea 1ST CHOICE; Start at 12:30; Stop 10/14/16 at 11:07; Status DC Fentanyl Citrate (Fentanyl 2ml Vial) 25 mcg PRN Q5MIN PRN IV MILD PAIN; Start 10/13/16 at 12:30; Stop 10/14/16 at 11:04; Status DC Fentanyl Citrate (Fentanyl 2ml Vial) 50 mcg PRN Q5MIN PRN IV MODERATE PAIN; Start 10/13/16 at 12:30; Stop 10/14/16 at 11:04; Status DC Morphine Sulfate 1 mg 1 mg PRN Q10MIN PRN IV SEVERE PAIN; Start 10/13/16 at 12: 30; Stop 10/14/16 at 11:00; Status DC Lactated Ringer's (Iv Lactated Ringers) 1,000 ml @ 0 mls/hr Q0M IV ; Start 10/13 at 12:17; Stop 10/14/16 at 00:16; Status DC Lidocaine HCl 2 ml 1X PRN PRN ID IV START; Start 10/13/16 at 12:30; Stop at 16:03; Status DC Hydromorphone HCl (Dilaudid) 0.5 mg PRN Q10MIN PRN IV SEV PAIN,Second choice; Start 10/13/16 at 12:30; Stop 10/14/16 at 11:04; Status DC Prochlorperazine Edisylate (Compazine) 5 mg PACU PRN PRN IV NAUSEA; Start at 12:30; Stop 10/14/16 at 11:00; Status DC Fentanyl Citrate (Fentanyl 2ml Vial) 50 mcg PRN Q5MIN PRN IV Acute Pain Last administered on 10/14/16t 10:04; Start 10/13/16 at 13:00; Stop 10/14/16 at 11:04 ; Status DC Morphine Sulfate 4 mg PRN Q10MIN PRN IV Moderate Pain; Start 10/13/16 at 13:00; Stop 10/14/16 at 11:00; Status DC Hydromorphone HCl (Dilaudid) 0.4 mg PRN Q10MIN PRN IV Moderate to severe pain; Start 10/13/16 at 13:00; Stop 10/14/16 at 11:04; Status DC Meperidine HCl (Demerol) 12.5 mg PRN Q5MIN PRN IV SHIVERING; Start 10/13/16 at 13:00; Stop 10/14/16 at 11:00; Status DC Prochlorperazine Edisylate (Compazine) 5 mg PRN Q6HRS PRN IV Nausea/Vomiting, 1st Choice; Start 10/13/16 at 13:00; Stop 10/14/16 at 11:00; Status DC Diphenhydramine HCl (Benadryl) 12.5 mg PRN Q2HR PRN IV ITCHING; Start 10/13/16 at 13:00; Stop 10/14/16 at 11:00; Status DC Midazolam HCl (Versed) 2 mg PRN 1X PRN IV PRIOR TO PROCEDURE; Start 10/13/16 at 13:00; Stop 10/14/16 at 11:07; Status DC Midazolam HCl (Versed) 1 mg PRN 1X PRN IV PRIOR TO PROCEDURE; Start 10/13/16 at 13:00; Stop 10/14/16 at 11:07; Status DC Fentanyl Citrate (Fentanyl 2ml Vial) 25 mcg PRN Q5MIN PRN IV X 2 DOSES FOR PAIN ; Start 10/13/16 at 13:00; Stop 10/14/16 at 11:04; Status DC Fentanyl Citrate 50 mcg 50 mcg PRN Q5MIN PRN IV X 2 DOSES FOR PAIN; Start at 13:00; Stop 10/14/16 at 11:04; Status DC Lactated Ringer's (Iv Lactated Ringers) 1,000 ml @ 125 mls/hr Q8H IV Last administered on 10/13/16 13:30; Start 10/13/16 at 12:48; Stop 10/14/16 at 00:47; Status DC Lidocaine HCl 2 ml 1X PRN PRN ID IV START; Start 10/13/16 at 13:00; Stop at 16:03; Status DC Fentanyl Citrate (Fentanyl 2ml Vial) 25 mcg PRN Q2HR PRN IV PAIN MOD TO SEV; Start 10/13/16 at 20:30; Stop 10/14/16 at 14:15; Status DC Fentanyl Citrate (Fentanyl 2ml Vial) 50 mcg PRN Q2HR PRN IV PAIN MOD TO SEV Last administered on 10/14/16 12:02; Start 10/13/16 at 20:30; Stop 10/14/16 at 14:15; Status DC Enoxaparin Sodium (Lovenox 40mg Syringe) 40 mg Q24H SQ Last administered on 09:30; Start 10/14/16 at 09:00 Fentanyl Citrate 100 mcg 100 mcg STK-MED ONCE .ROUTE ; Start 10/13/16 at 13:27; Stop 10/14/16 at 07:31; Status DC Propofol (Diprivan) 20 ml @ As Directed STK-MED ONCE IV ; Start 10/13/16 at 13:27 ; Stop 10/14/16 at 07:31; Status DC Rocuronium [place] (Zemuron) 50 mg STK-MED ONCE .ROUTE ; Start 10/13/16 at 13:27 ; Stop 10/14/16 at 07:31; Status DC Lidocaine HCl 100 mg STK-MED ONCE .ROUTE ; Start 10/13/16 at 13:27; Stop at 07:31; Status DC Fentanyl Citrate (Fentanyl 2ml Vial) 100 mcg STK-MED ONCE .ROUTE ; Start at 13:27; Stop 10/14/16 at 07:31; Status DC Ephedrine Sulfate (Akovaz) 50 mg STK-MED ONCE .ROUTE ; Start 10/13/16 at 14:00; Stop 10/14/16 at 07:31; Status DC Phenylephrine HCl 1 mg STK-MED ONCE IV ; Start 10/13/16 at 14:25; Stop 10/14/16 at 07:31; Status DC Desflurane (Suprane) 60 ml STK-MED ONCE IH ; Start 10/13/16 at 14:25; Stop at 07:31; Status DC Dexamethasone Sodium Phosphate (Decadron) 20 mg STK-MED ONCE .ROUTE ; Start 10/13 at 14:25; Stop 10/14/16 at 07:31; Status DC Ondansetron HCl (Zofran) 4 mg STK-MED ONCE .ROUTE ; Start 10/13/16 at 14:25; Stop 10/14/16 at 07:31; Status DC Famotidine (Pepcid) 20 mg STK-MED ONCE .ROUTE ; Start 10/13/16 at 14:25; Stop 07/21 at 07:31; Status DC Rocuronium [place] (Zemuron) 50 mg STK-MED ONCE .ROUTE ; Start 10/13/16 at 16:19 ; Stop 10/14/16 at 07:31; Status DC Fentanyl Citrate (Fentanyl 2ml Vial) 100 mcg STK-MED ONCE .ROUTE ; Start at 16:21; Stop 10/14/16 at 07:31; Status DC Desflurane (Suprane) 90 ml STK-MED ONCE IH ; Start 10/13/16 at 16:53; Stop at 07:31; Status DC Glycopyrrolate (Robinul) 1 mg STK-MED ONCE .ROUTE ; Start 10/13/16 at 17:00; Stop 10/14/16 at 07:31; Status DC Neostigmine Methylsulfate 5 mg STK-MED ONCE .ROUTE ; Start 10/13/16 at 17:00; Stop 10/14/16 at 07:31; Status DC Phenylephrine HCl 1 mg STK-MED ONCE IV ; Start 10/13/16 at 18:14; Stop 10/14/16 at 07:31; Status DC Fentanyl Citrate (Fentanyl 2ml Vial) 100 mcg STK-MED ONCE .ROUTE ; Start at 18:20; Stop 10/14/16 at 07:31; Status DC Fentanyl Citrate 100 mcg 100 mcg STK-MED ONCE .ROUTE ; Start 10/13/16 at 19:17; Stop 10/14/16 at 07:31; Status DC Levetiracetam 500 mg/Sodium Chloride 105 ml @ 400 mls/hr Q12HR IV Last administered on 10/23/16 09:18; Start 10/14/16 at 09:00 Amino Acids/ Glycerin/ Electrolytes (Procalamine) 1,000 ml @ 80 mls/hr [id number] IV Last administered on 10/16/16 09:16; Start 10/14/16 at 11:15; Stop at 21:59; Status DC Morphine Sulfate 2 mg PRN Q4HRS PRN IV MODERATE PAIN Last administered on 00:57; Start 10/14/16 at 14:15 Morphine Sulfate 4 mg PRN Q4HRS PRN IV SEVERE PAIN Last administered on 09:20; Start 10/14/16 at 14:30 Info 1 each 1 each PRN DAILY PRN MC SEE COMMENTS Last administered on 13:03; Start 10/16/16 at 11:30 Sodium Chloride/ Potassium Chloride/ Potassium Phosphate/ Magnesium Sulfate/ Calcium Gluconate/ Multivitamins/ Minerals/Chromium/ Copper/Manganese/ Seleni/Zn /Total Parenteral Nutrition/Amino Acids/Dextrose/ Fat Emulsion Intravenous ( Sodium Chloride/ Potassium Phospha... 1,512 ml @ 63 mls/hr TPN CONT IV ; Start 10/16/16 at 22:00; Stop 10/17/16 at 12:50; Status DC Lidocaine/Sodium Bicarbonate 20 ml 20 ml STK-MED ONCE IJ ; Start 10/17/16 at 08: 20; Stop 10/17/16 at 08:21; Status DC Heparin Sodium/ Sodium Chloride 500 ml @ As Directed STK-MED ONCE .ROUTE ; Start 10/17/16 at 08:20; Stop 10/17/16 at 08:21; Status DC Lidocaine/Sodium Bicarbonate (Buffered Lidocaine 1%) 3 ml 1X ONCE IJ Last administered on 10/17/16 08:30; Start 10/17/16 at 08:30; Stop 10/17/16 at 08:31 ; Status DC Heparin Sodium/ Sodium Chloride 60 unit 1X ONCE IV Last administered on 08:30; Start 10/17/16 at 08:30; Stop 10/17/16 at 08:31; Status DC Iohexol (Omnipaque 300 Mg/ml) 50 ml STK-MED ONCE .ROUTE ; Start 10/17/16 at 09: 02; Stop 10/17/16 at 09:03; Status DC Iohexol (Omnipaque 300 Mg/ml) 43 ml 1X ONCE IART Last administered on 08:45; Start 10/17/16 at 09:30; Stop 10/17/16 at 09:33; Status DC Info (Do NOT chart on this entry -- for MONITORING) 1 each PRN DAILY PRN MC SEE COMMENTS; Start 10/17/16 at 09:45; Stop 10/19/16 at 09:44; Status DC Clonidine HCl (Catapres Tts-2) 1 patch WEEKLY TD Last administered on 11:58; Start 10/17/16 at 11:00 Labetalol HCl 20 mg 20 mg PRN Q6HRS PRN IVP HYPERTENSION, SEE COMMENTS; Start 10/17/16 at 10:30 Sodium Chloride 1,000 ml @ 60 mls/hr [id number] IV Last administered on 06:32; Start 10/17/16 at 12:30; Stop 10/19/16 at 10:06; Status DC Sodium Chloride 90 meq/Potassium Chloride 50 meq/ Potassium Phosphate 13.6 mmol/ Magnesium Sulfate 10 meq/ Calcium Gluconate 10 meq/ Multivitamins/ Minerals 10 ml/ Chromium/Copper/ Manganese/Seleni/ Zn 1 ml/Total Parenteral Nutrition/Amino Acids/Dextrose/ Fat Emulsion Intravenous 1,512 ml @ 63 mls/hr TPN CONT IV Last administered on 10/17/16 21:09; Start 10/17/16 at 22:00; Stop 10/18/16 at 21:59; Status DC Sodium Chloride/ Potassium Chloride/ Potassium Phosphate/ Magnesium Sulfate/ Calcium Gluconate/ Multivitamins/ Minerals/Chromium/ Copper/Manganese/ Seleni/Zn /Total Parenteral Nutrition/Amino Acids/Dextrose/ Fat Emulsion Intravenous ( Sodium Chloride/ Potassium Phospha... 1,512 ml @ 63 mls/hr TPN CONT IV Last administered on 10/18/16 21:24; Start 10/18/16 at 22:00; Stop 10/19/16 at 21:59 ; Status DC Furosemide 20 mg 20 mg 1X ONCE IVP Last administered on 10/19/16 11:01; Start 10/19/16 at 10:30; Stop 10/19/16 at 10:31; Status DC Sodium Chloride 90 meq/Sodium Acetate 40 meq/ Potassium Chloride 50 meq/ Potassium Phosphate 13.6 mmol/Magnesium Sulfate 10 meq/ Calcium Gluconate 10 meq / Multivitamins/ Minerals 10 ml/ Chromium/Copper/ Manganese/Seleni/ Zn 1 ml/ Total Parenteral Nutrition/Amino Acids/Dextro... 1,920 ml @ 80 mls/hr TPN CONT IV Last administered on 10/19/16 22:29; Start 10/19/16 at 22:00; Stop at 21:59; Status DC Sodium Chloride 1,000 ml @ 45 mls/hr [id number] IV Last administered on 22:24; Start 10/20/16 at 09:00; Stop 10/21/16 at 09:26; Status DC Magnesium Sulfate/ Dextrose 50 ml @ 25 mls/hr PRN DAILY PRN IV for Mag < 1.7 on am labs; Start 10/20/16 at 13:15 Sodium Chloride/ Sodium Acetate/ Potassium Chloride/ Potassium Phosphate/ Magnesium Sulfate/ Calcium Gluconate/ Multivitamins/ Minerals/Chromium/ Copper/ Manganese/ Seleni/Zn/Total Parenteral Nutrition/Amino Acids/Dextrose/ Fat Emulsion Intravenous (Sodium Chloride/ Potass... 1,920 ml @ 80 mls/hr TPN CONT IV Last administered on 10/20/16 22:23; Start 10/20/16 at 22:00; Stop at 21:59; Status DC Acetaminophen/ Hydrocodone Bitart 1 tab 1 tab PRN Q4HRS PRN PO PAIN Last administered on 10/21/16 23:51; Start 10/21/16 at 09:30; Stop 10/22/16 at 10:39 ; Status DC Sodium Chloride/ Sodium Acetate/ Potassium Chloride/ Potassium Phosphate/ Magnesium Sulfate/ Calcium Gluconate/ Multivitamins/ Minerals/Chromium/ Copper/ Manganese/ Seleni/Zn/Total Parenteral Nutrition/Amino Acids/Dextrose/ Fat Emulsion Intravenous (Sodium Chloride/ Potass... 1,920 ml @ 80 mls/hr TPN CONT IV Last administered on 10/21/16 22:22; Start 10/21/16 at 22:00; Stop at 21:59; Status DC Metoclopramide HCl (Reglan) 10 mg 1X ONCE IV Last administered on 10/22/16 01 :56; Start 10/22/16 at 02:00; Stop 10/22/16 at 02:01; Status DC Lorazepam (Ativan) 1 mg 1X ONCE IV Last administered on 10/22/16 02:35; Start 10/22/16 at 02:30; Stop 10/22/16 at 02:31; Status DC Morphine Sulfate 2 mg PRN Q1HR PRN IV PAIN Last administered on 10/23/16 11:28 ; Start 10/22/16 at 02:30 Famotidine (Pepcid) 20 mg 1X ONCE IVP Last administered on 10/22/16 02:35; Start 10/22/16 at 02:30; Stop 10/22/16 at 02:31; Status DC Hydralazine HCl (Apresoline) 10 mg PRN Q6HRS PRN IVP ELEVATED BP, SEE COMMENTS ; Start 10/22/16 at 10:45 Iohexol (Omnipaque 300 Mg/ml) 60 ml 1X ONCE PO Last administered on 10/22/16 11:43; Start 10/22/16 at 11:00; Stop 10/22/16 at 11:01; Status DC Iohexol (Omnipaque 300 Mg/ml) 60 ml 1X ONCE IV Last administered on 10/22/16 11:19; Start 10/22/16 at 11:00; Stop 10/22/16 at 11:01; Status DC Info 1 each 1 each PRN DAILY PRN MC SEE COMMENTS; Start 10/22/16 at 11:00; Stop 10/24/16 at 10:59 Sodium Chloride/ Sodium Acetate/ Potassium Chloride/ Potassium Phosphate/ Magnesium Sulfate/ Calcium Gluconate/ Multivitamins/ Minerals/Chromium/ Copper/ Manganese/ Seleni/Zn/Total Parenteral Nutrition/Amino Acids/Dextrose/ Fat Emulsion Intravenous (Sodium Chloride/ Potass... 1,920 ml @ 80 mls/hr TPN CONT IV Last administered on 10/22/16t 21:46; Start 10/22/16 at 22:00; Stop at 21:59 Active Scripts Active Hydrocodone-Apap 5-325 (Hydrocodone Bit/Acetaminophen) 1 Each Tablet 1 Tab PO PRN Q6HRS PRN Metoprolol Succinate ( Xl ) (Metoprolol Succinate) 25 Mg Tab.er.24h 25 Mg PO DAILY Reported Flomax (Tamsulosin Hcl) 0.4 Mg Cap.er.24h 1 Cap PO QHS Tramadol Hcl 100 Mg Tab.er.24h 100 Mg PO QID Levetiracetam 250 Mg Tablet 250 Mg PO BID Dulcolax (Bisacodyl) 10 Mg Supp.rect 10 Mg RC PRN DAILY PRN Maalox Advanced Suspension (Mag Hydrox/Al Hydrox/Simeth) 770 Ml Oral.susp 30 Ml PO Q2HR PRN Milk Of Magnesia (Magnesium Hydroxide) 400 Mg/5 Ml Oral.susp 30 Ml PO DAILY PRN Robitussin Cough-Chest Dm Liq (Guaifenesin/Dextromethorphan) 118 Ml Liquid 10 Ml PO Q4HRS PRN Trazodone Hcl 50 Mg Tablet 1 Tab PO QHS Tylenol (Acetaminophen) 325 Mg Tablet 650 Mg PO Q6HRS PRN Pramipexole Dihydrochloride (Pramipexole Di-Hcl) 0.5 Mg Tablet 0.5 Mg PO TID Simvastatin 20 Mg Tablet 1 Tab PO QHS Levothyroxine Sodium 100 Mcg Tablet 1 Tab PO DAILY Gabapentin 800 Mg Tablet 800 Mg PO QID Sinemet 25-100 Mg Tablet (Carbidopa/Levodopa) 1 Each Tablet 2 Tab PO TID Aspirin 81 Mg Tab.chew 1 Tab PO DAILY Vitals/I & O Vital Sign - Last 24 Hours 10/22/16 10/22/16 10/22/16 10/22/16 15:00 19:10 19:30 21:56 Temp 98.2 99.5 98.2 99.5 Pulse 78 92 Resp 18 20 20 B/P 156/74 156/69 Pulse Ox 96 93 93 O2 Delivery Nasal Cannula Nasal Cannula Nasal Cannula Nasal Cannula O2 Flow Rate 4.0 4.0 4.0 4.0 10/22/16 10/23/16 10/23/16 10/23/16 23:38 02:26 02:55 03:37 Temp 99.8 98.8 99.8 98.8 Pulse 105 101 Resp 22 20 18 24 B/P 133/44 146/65 Pulse Ox 94 94 94 91 O2 Delivery Nasal Cannula Nasal Cannula Nasal Cannula O2 Flow Rate 4.0 4.0 4.0 10/23/16 10/23/16 10/23/16 10/23/16 07:00 07:35 09:20 09:55 Temp 98.8 98.8 Pulse 86 Resp 18 B/P 152/69 Pulse Ox 93 O2 Delivery Nasal Cannula Nasal Cannula Nasal Cannula Nasal Cannula O2 Flow Rate 4.0 4.0 4.0 4.0 10/23/16 10/23/16 11:00 11:28 Temp 98.1 98.1 Pulse 82 Resp 18 B/P 165/80 Pulse Ox 97 O2 Delivery Nasal Cannula Nasal Cannula O2 Flow Rate 4.0 4.0 Intake and Output 10/22/16 10/22/16 10/23/16 15:00 23:00 07:00 Intake Total 105 ml 0 ml Output Total 1125 ml 500 ml Balance -1020 ml -500 ml RICHARD [place] MD Oct 23, 2016 11:50
[2016-10-23] MEDS ORDERED: FUROSEMIDE 20 MG/2 ML VIAL IVP ONE (12:30)
[2016-10-23] MEDS ORDERED: ALTEPLASE 2 MG VIAL INT CAT ONE (12:30)
[2016-10-23] MEDS: TPN PER PHARMACY MC PRN (13:47)
--- NOTE | 2016-10-23 13:54 | PDOC ---
PAZ MONTEJO TELEPATHIST 10/23/16 1354: SURGICAL PROGRESS NOTE Subjective spitting up some bilious material reports flatus does have some abdominal pain Vital Signs Vital Signs Date Time Temp Pulse Resp B/P Pulse Ox O2 Delivery O2 Flow Rate FiO2 10/23/16 12:00 Nasal Cannula 4.0 10/23/16 11:00 98.1 82 18 165/80 97 98.1 I&O Intake and Output 10/23/16 07:00 Intake Total 105 ml Output Total 1625 ml Balance -1520 ml Intake Oral 0 ml IV Total 105 ml Output Urine Total 1625 ml General: Alert, Cooperative, No acute distress Abdomen: Soft, Other (mildly distented, NTTP on exam) Labs Laboratory Tests Test 10/22/16 01:12 10/22/16 12:25 10/23/16 05:50 White Blood Count 6.9x10^3/uL (4.0-11.0) Red Blood Count 2.60x10^6/uL (4.30-5.70) Hemoglobin 8.2g/dL (13.0-17.5) Hematocrit 25.5% (39.0-53.0) Mean Corpuscular Volume 98fL (79-100) Mean Corpuscular Hemoglobin 32pg (25-35) Mean Corpuscular Hemoglobin Concent 32g/dL (31-37) Red Cell Distribution Width 15.2% (11.5-14.5) Platelet Count 259x10^3/uL (140-400) Neutrophils (%) (Auto) 70% (31-73) Lymphocytes (%) (Auto) 20% (24-48) Monocytes (%) (Auto) 6% (0-9) Eosinophils (%) (Auto) 3% (0-3) Basophils (%) (Auto) 1% (0-3) Neutrophils # (Auto) 4.9x10^3uL (1.8-7.7) Lymphocytes # (Auto) 1.4x10^3/uL (1.0-4.8) Monocytes # (Auto) 0.4x10^3/uL (0.0-1.1) Eosinophils # (Auto) 0.2x10^3/uL (0.0-0.7) Basophils # (Auto) 0.1x10^3/uL (0.0-0.2) Sodium Level 141mmol/L (136-145) 136mmol/L (136-145) Potassium Level 4.6mmol/L (3.5-5.1) 4.6mmol/L (3.5-5.1) Chloride Level 107mmol/L (98-107) 103mmol/L (98-107) Carbon Dioxide Level 26mmol/L (21-32) 26mmol/L (21-32) Anion Gap 8 (6-14) 7 (6-14) Blood Urea Nitrogen 15mg/dL (8-26) 16mg/dL (8-26) Creatinine 1.3mg/dL (0.7-1.3) 1.2mg/dL (0.7-1.3) Estimated GFR (Cockcroft-Gault) 52.5 57.5 Glucose Level 125mg/dL (70-99) 125mg/dL (70-99) Calcium Level 8.5mg/dL (8.5-10.1) 8.3mg/dL (8.5-10.1) Phosphorus Level 2.9mg/dL (2.6-4.7) 2.8mg/dL (2.6-4.7) Troponin I Quantitative 0.023ng/mL (0.000-0.055) < 0.017ng/mL (0.000-0.055) Albumin 2.0g/dL (3.4-5.0) 1.7g/dL (3.4-5.0) Magnesium Level 1.8mg/dL (1.8-2.4) Thyroid Stimulating Hormone (TSH) 12.563uIU/mL (0.358-3.74) Laboratory Tests Test 10/23/16 05:50 Sodium Level 136mmol/L (136-145) Potassium Level 4.6mmol/L (3.5-5.1) Chloride Level 103mmol/L (98-107) Carbon Dioxide Level 26mmol/L (21-32) Anion Gap 7 (6-14) Blood Urea Nitrogen 16mg/dL (8-26) Creatinine 1.2mg/dL (0.7-1.3) Estimated GFR (Cockcroft-Gault) 57.5 Glucose Level 125mg/dL (70-99) Calcium Level 8.3mg/dL (8.5-10.1) Phosphorus Level 2.8mg/dL (2.6-4.7) Magnesium Level 1.8mg/dL (1.8-2.4) Albumin 1.7g/dL (3.4-5.0) Thyroid Stimulating Hormone (TSH) 12.563uIU/mL (0.358-3.74) Problem List Problems Medical Problems: (1) SBO (small bowel obstruction) Status: Acute Assessment/Plan s/p xlap xrays showed distended stomach consider NG replacement Problems: KENDRICK CULVER MD 10/23/16 1402: SURGICAL PROGRESS NOTE Assessment/Plan Reviewed, agree with above, xrays seem to show some improvement, but prolonged ileus would not be unexpected Problems: PAZ MONTEJO APRN Oct 23, 2016 13:54 KENDRICK CULVER MD Oct 23, 2016 14:02
[2016-10-23] MEDS: LEVOTHYROXINE SODIUM 50 MCG in IV NORMAL SALINE 50ML 5 ML IVP SCH (14:04)
[2016-10-23 15:00] VITALS: BP 149/61
[2016-10-23 19:00] VITALS: BP 141/54
--- NOTE | 2016-10-23 20:29 | CARD ---
APPROVED REPORT EXAM: Two-dimensional and M-mode echocardiogram with Doppler and color Doppler. Other Information Quality : Technically Limited Technically limited study due to body habitus. poor parasternal images INDICATION Chest Pain 2D DIMENSIONS RVDd4.1 (2.9-3.5cm)Left Atrium(2D)3.6 (1.6-4.0cm) IVSd1.1 (0.7-1.1cm)Aortic Root(2D)3.7 (2.0-3.7cm) LVDd4.9 (3.9-5.9cm)LVOT Diameter2.1 (1.8-2.4cm) PWd1.0 (0.7-1.1cm)LVDs3.4 (2.5-4.0cm) FS (%) 30.9 %SV64.8 ml LVEF(%)58.4 (>50%) Aortic Valve AoV Peak Deon.164.8cm/sAoV VTI26.6cm AO Peak GR.10.9mmHgLVOT VTI 19.92cm AO Mean GR.6mmHgAVA (VTI)2.53cm2 Mitral Valve MV E Vfxcljlo44.0cm/sMV E Peak Gr.2mmHg MV DECEL [id number] A Bxhxjbra93.2cm/s MV E Mean Gr.1mmHgMV [id number] E/A Ratio0.9MV A [id number] MVA (PHT)5.00cm2 TDI Lateral E' P. V8.88cm/sMedial E' P. V6.51cm/s E/Lateral E'6.8E/Medial E'9.2 Tricuspid Valve TR P. [id number]/sRAP [id number] TR Peak Gr.[id number] LEFT VENTRICLE The left ventricle is normal size. There is borderline concentric left ventricular hypertrophy. The l eft ventricular systolic function is normal and the ejection fraction is within normal range. The Eje ction Fraction is 55-60%. Transmitral Doppler flow pattern is Grade I-abnormal relaxation pattern. RIGHT VENTRICLE The right ventricle is normal size. The right ventricular systolic function is normal. ATRIA The left atrium size is normal. The right atrium size is normal. The interatrial septum is intact wit h no evidence for an atrial septal defect or patent foramen ovale as noted on 2-D or Doppler imaging. AORTIC VALVE The aortic valve is mildly sclerotic. The aortic valve is tri-cuspid. Doppler and Color Flow revealed no significant aortic regurgitation. There is no significant aortic valvular stenosis. MITRAL VALVE The mitral valve is mildly thickened but opens well. There is no evidence of mitral valve prolapse. T here is no mitral valve stenosis. Doppler and Color Flow revealed trace mitral regurgitation. TRICUSPID VALVE The tricuspid valve is normal in structure and function. Doppler and Color Flow revealed moderate tri cuspid regurgitation. There is moderate pulmonary hypertension. The PA pressure was estimated at 45 m mHg. There is no tricuspid valve stenosis. PULMONIC VALVE The pulmonic valve is not well visualized. GREAT VESSELS The aortic root is normal in size. Due to poor image quality, the IVC could not be assessed. PERICARDIAL EFFUSION There is no evidence of significant pericardial effusion. Critical Notification Critical Value: No <Conclusion> Thiswas a technically very difficult echocardiogram to recordbut the following comments can be made The left ventricle is normal size. The ejection fraction is 55-69% There is a Grade I distolic dysfunction There is no pericardial effusion There is no mitral stenosis or regurgitation The left atrium is of a normal size There is no aortic stenosis or regurgitation The right ventricle is of a normal siZe. Doppler and Color Flow revealed moderate tricuspid regurgitation. There is moderate pulmonary hypertension. The PA pressure was estimated at 45 mmHg. There is thus moderate pulmonary hypertension The pulmonic valve is normal
--- NOTE | 2016-10-23 21:34 | PDOC ---
Provider Note Provider Note No further episodes of chest pain Chest pain probably due toa GI etiology ECHO; Normal systolic function Grade I distolic dysfuntion Pulmonary hypertension. Please see Consult dictated TANISHA BERNSTEIN MD Oct 23, 2016 21:34
[2016-10-23] MEDS ORDERED: AMINO ACIDS IV SCH ×11 (22:00)
[2016-10-23] MEDS ORDERED: [UNRECOGNIZED DRUG - OTHER] IV SCH ×11 (22:00)
[2016-10-23] MEDS ORDERED: TOTAL PARENTERAL NUTRITION IV SCH ×11 (22:00)
[2016-10-23] MEDS ORDERED: DEXTROSE 70% IV SCH ×11 (22:00)
[2016-10-23 23:00] VITALS: BP 112/52
[2016-10-23] MEDS ORDERED: ACETAMINOPHEN 650 MG SUPP.RECT. PR PRN (23:00)
[2016-10-24] MEDS: MORPHINE SULFATE 2 MG/ML DISP.SYRIN. IV PRN ×7 (01:30→22:09)
[2016-10-24 03:00] VITALS: BP 130/62
[2016-10-24] MEDS: MORPHINE SULFATE 4 MG/ML DISP.SYRIN. IV PRN (04:58)
[2016-10-24] MEDS: PANTOPRAZOLE IV PUSH 40 MG VIAL. IVP SCH (06:33)
[2016-10-24 07:00] VITALS: BP 109/64
[2016-10-24] MEDS: ONDANSETRON PF 4 MG/2 ML VIAL. IV PRN (07:48)
[2016-10-24 08:47] LABS: ALBUMIN 1.8 g/dL (3.4-5.0); CALCIUM 8.2 mg/dL (8.5-10.1); CREATININE 1.3 mg/dL (0.7-1.3); GFR 52.5; PHOSPHORUS 3.2 mg/dL (2.6-4.7); POTASSIUM 4.7 mmol/L (3.5-5.1)
[2016-10-24] MEDS: LEVOTHYROXINE SODIUM 50 MCG in IV NORMAL SALINE 50ML 5 ML IVP SCH (09:00)
[2016-10-24] MEDS: LEVETIRACETAM 500 MG in IV NORMAL SALINE 100ML 100 ML IV SCH ×2 (09:04→22:09)
[2016-10-24] MEDS: ENOXAPARIN 40 MG/0.4 ML DISP.SYRIN. SQ SCH (09:04)
[2016-10-24] MEDS: CLONIDINE TTS-2 PATCH TD SCH (09:12)
--- NOTE | 2016-10-24 09:26 | PDOC ---
PROGRESS NOTES Subjective Subjective recurrent vomiting of small amount of bile and he concurs with NG tube. picc line inadvertantly removed and will need to be replaced for TPN. lab reviewed. Objective Objective Vital Signs Date Time Temp Pulse Resp B/P Pulse Ox O2 Delivery O2 Flow Rate FiO2 10/24/16 09:15 Nasal Cannula 10/24/16 08:57 3.5 10/24/16 07:04 20 94 10/24/16 07:00 98.6 103 109/64 98.6 Intake and Output 10/24/16 07:00 Intake Total 1160 ml Output Total 1200 ml Balance -40 ml Intake Oral 0 ml IV Total 1160 ml Output Urine Total 1200 ml Physical Exam Abdomen: Soft, Other (bowel sounds. wound care. [place]) Heart: Regular rate, Normal S1, Normal S2 Extremities: Other (1 plus edema) General: Alert HEENT: Atraumatic Lungs: Clear to auscultation Neuro: Normal speech Psych/Mental Status: Mood NL Skin: No rashes Assessment Assessment Problems Medical Problems::Small-bowel obstruction resolved exploratory laparotomy 10/13/16. lysis of adhesions. bowel viable. post op ileus. prolonged 2. Seizure disorder. 3. Parkinson's disease. 4. Hypothyroidism. 5. Peripheral neuropathy. 6. Hypertension. 7. Chronic kidney disease stage III. klebsiella uti treated suspected gout synovitis resolved peripheral edema critical illness myopathy hematemesis once resolved paroxysmal atrial fibrillation. not a good candidate for anticoagulants (1) SBO (small bowel obstruction) Status: Acute Plan Plan of Care place NG tube picc today resume TPN iv fluids Comment Review of Relevant I have reviewed the following items [place] (where applicable) has been applied. Labs Laboratory Tests Test 10/22/16 12:25 10/23/16 05:50 10/24/16 07:35 Troponin I Quantitative < 0.017ng/mL (0.000-0.055) Sodium Level 136mmol/L (136-145) 140mmol/L (136-145) Potassium Level 4.6mmol/L (3.5-5.1) 4.7mmol/L (3.5-5.1) Chloride Level 103mmol/L (98-107) 105mmol/L (98-107) Carbon Dioxide Level 26mmol/L (21-32) 27mmol/L (21-32) Anion Gap 7 (6-14) 8 (6-14) Blood Urea Nitrogen 16mg/dL (8-26) 22mg/dL (8-26) Creatinine 1.2mg/dL (0.7-1.3) 1.3mg/dL (0.7-1.3) Estimated GFR (Cockcroft-Gault) 57.5 52.5 Glucose Level 125mg/dL (70-99) 114mg/dL (70-99) Calcium Level 8.3mg/dL (8.5-10.1) 8.2mg/dL (8.5-10.1) Phosphorus Level 2.8mg/dL (2.6-4.7) 3.2mg/dL (2.6-4.7) Magnesium Level 1.8mg/dL (1.8-2.4) Albumin 1.7g/dL (3.4-5.0) 1.8g/dL (3.4-5.0) Thyroid Stimulating Hormone (TSH) 12.563uIU/mL (0.358-3.74) Laboratory Tests Test 10/24/16 07:35 Sodium Level 140mmol/L (136-145) Potassium Level 4.7mmol/L (3.5-5.1) Chloride Level 105mmol/L (98-107) Carbon Dioxide Level 27mmol/L (21-32) Anion Gap 8 (6-14) Blood Urea Nitrogen 22mg/dL (8-26) Creatinine 1.3mg/dL (0.7-1.3) Estimated GFR (Cockcroft-Gault) 52.5 Glucose Level 114mg/dL (70-99) Calcium Level 8.2mg/dL (8.5-10.1) Phosphorus Level 3.2mg/dL (2.6-4.7) Albumin 1.8g/dL (3.4-5.0) Microbiology 10/13/16 Blood Culture - Final, Complete NO GROWTH AFTER 5 DAYS 10/13/16 Urine Culture - Final, Complete 10/13/16 Urine Culture Result 1 (MANDEEP) - Final, Complete Medications Current Medications Fentanyl Citrate 50 mcg 50 mcg PRN Q15MIN PRN IV PAIN GREATER THAN 3/10 Last administered on 09/30/16at 19:35; Start 09/30/16 at 17:30; Stop 10/01/16 at 04 :24; Status DC Lactated Ringer's (Iv Lactated Ringers) 1,000 ml @ 100 mls/hr Q10H IV Last administered on 09/30/16at 19:35; Start 09/30/16 at 17:28; Stop 10/01/16 at 03 :27; Status DC Ondansetron HCl (Zofran) 4 mg 1X ONCE IV Last administered on 09/30/16at 17:44 ; Start 09/30/16 at 17:30; Stop 09/30/16 at 17:32; Status DC Fentanyl Citrate (Fentanyl 2ml Vial) 50 mcg 1X ONCE IV ; Start 09/30/16 at 19: 15; Stop 10/01/16 at 04:24; Status DC Ondansetron HCl (Zofran) 4 mg PRN Q8HRS PRN IV NAUSEA/VOMITING Last administered on 09/30/16at 22:07; Start 09/30/16 at 19:15; Stop 10/01/16 at 19 :14; Status DC Fentanyl Citrate 50 mcg 50 mcg PRN Q2HR PRN IV PAIN Last administered on at 16:54; Start 09/30/16 at 19:15; Stop 10/01/16 at 19:14; Status DC Sodium Chloride 1,000 ml @ 100 mls/hr Q10H IV ; Start 09/30/16 at 19:30; Stop 10/01/16 at 04:24; Status DC Potassium Chloride/Dextrose/ Sod Cl (KCl 20 Meq In D5W-1/2 NS) 1,000 ml @ 125 mls/hr Q8H IV Last administered on 10/04/16at 06:02; Start 09/30/16 at 20:00; Stop 10/04/16 at 10:21; Status DC Enoxaparin Sodium 40 mg 40 mg Q24H SQ Last administered on 10/13/16 08:14; Start 10/01/16 at 09:00; Stop 10/13/16 at 08:36; Status DC Levetiracetam/ Sodium Chloride (Keppra/Iv Sodium Chloride 0.9% 100ml) 105 ml @ 400 mls/hr Q12HR IV Last administered on 10/05/16 09:30; Start 09/30/16 at 21: 00; Stop 10/05/16 at 10:24; Status DC Morphine Sulfate 2 mg PRN Q4HRS PRN IV SEVERE PAIN Last administered on 10:13; Start 09/30/16 at 19:30; Stop 10/05/16 at 10:24; Status DC Acetaminophen (Tylenol) 650 mg PRN Q6HRS PRN [place] MILD PAIN / TEMP; Start at 19:30; Stop 10/05/16 at 10:24; Status DC Ondansetron HCl (Zofran) 4 mg PRN Q6HRS PRN IV NAUSEA/VOMITING Last administered on 10/07/16 08:28; Start 09/30/16 at 19:30; Stop 10/09/16 at 12:08 ; Status DC Benzocaine (Hurricaine One) 1 spray STK-MED ONCE .ROUTE ; Start 09/30/16 at 19: 51; Stop 09/30/16 at 19:52; Status DC Morphine Sulfate 4 mg PRN Q4HRS PRN IV PAIN Last administered on 10/05/16 08:08 ; Start 10/01/16 at 20:00; Stop 10/05/16 at 10:24; Status DC Clonidine HCl 1 patch 1 patch WEEKLY TD Last administered on 10/03/16at 12:30; Start 10/03/16 at 10:00; Stop 10/05/16 at 10:24; Status DC Piperacillin Sod/ Tazobactam Sod/ Sodium Chloride (Zosyn/Iv Sodium Chloride 0.9 % 50ml) 50 ml @ 100 mls/hr Q6HRS IV Last administered on 10/09/16 06:26; Start 10/04/16 at 11:00; Stop 10/09/16 at 10:55; Status DC Vancomycin HCl 1 each 1 each PRN DAILY PRN MC SEE COMMENTS Last administered on 10/07/16 11:11; Start 10/04/16 at 10:15; Stop 10/07/16 at 11:28; Status DC Vancomycin HCl/ Sodium Chloride (Iv Sodium Chloride 0.9% 250ml) 250 ml @ 250 mls/hr Q24H IV ; Start 10/04/16 at 10:15; Status UNV Labetalol HCl (Normodyne) 20 mg PRN Q6HRS PRN IVP HYPERTENSION, SEE COMMENTS; Start 10/04/16 at 10:15; Stop 10/05/16 at 10:24; Status DC Hydralazine HCl 10 mg 10 mg PRN Q6HRS PRN IVP ELEVATED BP, SEE COMMENTS Last administered on 10/06/16 19:17; Start 10/04/16 at 10:15; Stop 10/12/16 at 10:40 ; Status DC Amino Acids/ Glycerin/ Electrolytes 1,000 ml @ 40 mls/hr Q24H IV Last administered on 10/06/16 09:59; Start 10/04/16 at 10:15; Stop 10/07/16 at 09:06 ; Status DC Vancomycin HCl 2 gm/Sodium Chloride 500 ml @ 250 mls/hr 1X ONCE IV Last administered on 10/04/16at 11:26; Start 10/04/16 at 10:45; Stop 10/04/16 at 12 :44; Status DC Vancomycin HCl/ Sodium Chloride (Iv Sodium Chloride 0.9% 500ml Bag) 500 ml @ 250 mls/hr Q24H IV Last administered on 10/06/16 11:47; Start 10/05/16 at 12:00 ; Stop 10/07/16 at 11:28; Status DC Vancomycin HCl 1 each 1X ONCE MC Last administered on 10/06/16 11:30; Start at 11:30; Stop 10/06/16 at 11:31; Status DC Aspirin (Children'S Aspirin) 81 mg [id number] PO Last administered on 10/13/16 08:15; Start 10/05/16 at 11:00; Stop 10/13/16 at 08:29; Status DC Gabapentin (Neurontin) 600 mg QID PO Last administered on 10/13/16 08:14; Start 10/05/16 at 13:00; Stop 10/14/16 at 08:47; Status DC Levetiracetam (Keppra) 250 mg BID PO Last administered on 10/13/16 08:17; Start 10/05/16 at 11:00; Stop 10/14/16 at 08:47; Status DC Levothyroxine Sodium (Synthroid) 100 mcg [id number] PO Last administered on 05:08; Start 10/05/16 at 10:30; Stop 10/14/16 at 08:48; Status DC Metoprolol Succinate (Toprol Xl) 25 mg DAILY PO Last administered on 10/13/16 08:16; Start 10/05/16 at 11:00; Stop 10/14/16 at 08:47; Status DC Pramipexole Dihydrochloride (miraPEX) 0.5 mg [id number] PO Last administered on 10/13 08:15; Start 10/05/16 at 11:00; Stop 10/14/16 at 08:48; Status DC Simvastatin (Zocor) 20 mg HS PO Last administered on 10/12/16 21:07; Start 10/05 at 21:00; Stop 10/14/16 at 08:48; Status DC Carbidopa/Levodopa (Sinemet Cr) 1 tab.sa TID PO Last administered on 10/13/16 08:16; Start 10/05/16 at 11:00; Stop 10/14/16 at 08:48; Status DC Tamsulosin HCl (Flomax) 0.4 mg QHS PO Last administered on 10/12/16 21:07; Start 10/05/16 at 21:00; Stop 10/14/16 at 08:48; Status DC Tramadol HCl (Ultram) 50 mg QID PO Last administered on 10/13/16 08:17; Start 10/05/16 at 13:00; Stop 10/14/16 at 08:48; Status DC Acetaminophen (Tylenol) 650 mg PRN Q4HRS PRN PO MILD PAIN / TEMP Last administered on 10/13/16 00:17; Start 10/05/16 at 10:15; Stop 10/14/16 at 08:48; Status DC Prednisone (Prednisone) 20 mg 1X ONCE PO Last administered on 10/06/16 11:01; Start 10/06/16 at 10:30; Stop 10/06/16 at 10:31; Status DC Prednisone (Prednisone) 10 mg DAILY08 PO Last administered on 10/13/16 08:15; Start 10/07/16 at 08:00; Stop 10/13/16 at 08:29; Status DC Al Hydroxide/Mg Hydroxide (Mylanta Plus Xs) 30 ml PRN Q4HRS PRN PO HEARTBURN / GAS Last administered on 10/12/16 21:07; Start 10/07/16 at 08:45; Stop 10/14/16 at 08:48; Status DC Pantoprazole Sodium (Protonix) 40 mg DAILYAC PO Last administered on 10/13/16 05:08; Start 10/07/16 at 10:00; Stop 10/13/16 at 06:45; Status DC Furosemide 40 mg 40 mg DAILY PO Last administered on 10/08/16 08:42; Start 10/07 at 10:00; Stop 10/08/16 at 08:56; Status DC Sodium Chloride (Iv Sodium Chloride 0.45%) 1,000 ml @ 60 mls/hr CONT PRN IV . ; Start 10/08/16 at 09:00; Stop 10/08/16 at 16:06; Status DC Bisacodyl 10 mg 10 mg 1X ONCE [place] Last administered on 10/08/16 10:11; Start at 09:30; Stop 10/08/16 at 09:31; Status DC Sodium Chloride (Iv Sodium Chloride 0.45%) 1,000 ml @ 60 mls/hr [id number] IV Last administered on 10/09/16 02:52; Start 10/08/16 at 10:15; Stop 10/09/16 at 12: 00; Status DC Cefpodoxime Proxetil (Vantin) 200 mg BID PO ; Start 10/09/16 at 11:00; Stop at 12:08; Status DC Cefpodoxime Proxetil (Vantin) 100 mg BID PO Last administered on 10/13/16 08:16 ; Start 10/09/16 at 21:00; Stop 10/13/16 at 08:29; Status DC Ondansetron HCl (Zofran) 4 mg STK-MED ONCE .ROUTE Last administered on 01:24; Start 10/13/16 at 01:19; Stop 10/13/16 at 01:20; Status DC Ondansetron HCl (Zofran) 4 mg PRN Q6HRS PRN IV NAUSEA/VOMITING Last administered on 10/24/16 07:48; Start 10/13/16 at 02:00 Pantoprazole Sodium 40 mg 40 mg DAILYAC IVP Last administered on 10/24/16 06: 33; Start 10/13/16 at 07:30 Dextrose/Sodium Chloride (Iv D5% - NS) 1,000 ml @ 60 mls/hr [id number] IV Last administered on 10/13/16 09:25; Start 10/13/16 at 08:30; Stop 10/13/16 at 11:01; Status DC Sodium Polystyrene Sulfonate 15 gm 15 gm 1X ONCE PO Last administered on 09:26; Start 10/13/16 at 08:30; Stop 10/13/16 at 08:31; Status DC Piperacillin Sod/ Tazobactam Sod 3.375 gm/Sodium Chloride 50 ml @ 100 mls/hr Q6HRS IV Last administered on 10/19/16 12:42; Start 10/13/16 at 09:00; Stop at 15:06; Status DC Dextrose/Sodium Chloride (Iv D5% - 1/2 NS) 1,000 ml @ 50 mls/hr Q20H IV Last administered on 10/17/16 00:16; Start 10/13/16 at 11:00; Stop 10/17/16 at 12:23 ; Status DC Ondansetron HCl (Zofran) 4 mg PRN Q6HRS PRN IV Nausea 1ST CHOICE; Start at 12:30; Stop 10/14/16 at 11:07; Status DC Fentanyl Citrate (Fentanyl 2ml Vial) 25 mcg PRN Q5MIN PRN IV MILD PAIN; Start 10/13/16 at 12:30; Stop 10/14/16 at 11:04; Status DC Fentanyl Citrate (Fentanyl 2ml Vial) 50 mcg PRN Q5MIN PRN IV MODERATE PAIN; Start 10/13/16 at 12:30; Stop 10/14/16 at 11:04; Status DC Morphine Sulfate 1 mg 1 mg PRN Q10MIN PRN IV SEVERE PAIN; Start 10/13/16 at 12: 30; Stop 10/14/16 at 11:00; Status DC Lactated Ringer's (Iv Lactated Ringers) 1,000 ml @ 0 mls/hr Q0M IV ; Start 10/13 at 12:17; Stop 10/14/16 at 00:16; Status DC Lidocaine HCl 2 ml 1X PRN PRN ID IV START; Start 10/13/16 at 12:30; Stop at 16:03; Status DC Hydromorphone HCl (Dilaudid) 0.5 mg PRN Q10MIN PRN IV SEV PAIN,Second choice; Start 10/13/16 at 12:30; Stop 10/14/16 at 11:04; Status DC Prochlorperazine Edisylate (Compazine) 5 mg PACU PRN PRN IV NAUSEA; Start at 12:30; Stop 10/14/16 at 11:00; Status DC Fentanyl Citrate (Fentanyl 2ml Vial) 50 mcg PRN Q5MIN PRN IV Acute Pain Last administered on 10/14/16t 10:04; Start 10/13/16 at 13:00; Stop 10/14/16 at 11:04 ; Status DC Morphine Sulfate 4 mg PRN Q10MIN PRN IV Moderate Pain; Start 10/13/16 at 13:00; Stop 10/14/16 at 11:00; Status DC Hydromorphone HCl (Dilaudid) 0.4 mg PRN Q10MIN PRN IV Moderate to severe pain; Start 10/13/16 at 13:00; Stop 10/14/16 at 11:04; Status DC Meperidine HCl (Demerol) 12.5 mg PRN Q5MIN PRN IV SHIVERING; Start 10/13/16 at 13:00; Stop 10/14/16 at 11:00; Status DC Prochlorperazine Edisylate (Compazine) 5 mg PRN Q6HRS PRN IV Nausea/Vomiting, 1st Choice; Start 10/13/16 at 13:00; Stop 10/14/16 at 11:00; Status DC Diphenhydramine HCl (Benadryl) 12.5 mg PRN Q2HR PRN IV ITCHING; Start 10/13/16 at 13:00; Stop 10/14/16 at 11:00; Status DC Midazolam HCl (Versed) 2 mg PRN 1X PRN IV PRIOR TO PROCEDURE; Start 10/13/16 at 13:00; Stop 10/14/16 at 11:07; Status DC Midazolam HCl (Versed) 1 mg PRN 1X PRN IV PRIOR TO PROCEDURE; Start 10/13/16 at 13:00; Stop 10/14/16 at 11:07; Status DC Fentanyl Citrate (Fentanyl 2ml Vial) 25 mcg PRN Q5MIN PRN IV X 2 DOSES FOR PAIN ; Start 10/13/16 at 13:00; Stop 10/14/16 at 11:04; Status DC Fentanyl Citrate 50 mcg 50 mcg PRN Q5MIN PRN IV X 2 DOSES FOR PAIN; Start at 13:00; Stop 10/14/16 at 11:04; Status DC Lactated Ringer's (Iv Lactated Ringers) 1,000 ml @ 125 mls/hr Q8H IV Last administered on 10/13/16 13:30; Start 10/13/16 at 12:48; Stop 10/14/16 at 00:47; Status DC Lidocaine HCl 2 ml 1X PRN PRN ID IV START; Start 10/13/16 at 13:00; Stop at 16:03; Status DC Fentanyl Citrate (Fentanyl 2ml Vial) 25 mcg PRN Q2HR PRN IV PAIN MOD TO SEV; Start 10/13/16 at 20:30; Stop 10/14/16 at 14:15; Status DC Fentanyl Citrate (Fentanyl 2ml Vial) 50 mcg PRN Q2HR PRN IV PAIN MOD TO SEV Last administered on 10/14/16 12:02; Start 10/13/16 at 20:30; Stop 10/14/16 at 14:15; Status DC Enoxaparin Sodium (Lovenox 40mg Syringe) 40 mg Q24H SQ Last administered on 09:04; Start 10/14/16 at 09:00 Fentanyl Citrate 100 mcg 100 mcg STK-MED ONCE .ROUTE ; Start 10/13/16 at 13:27; Stop 10/14/16 at 07:31; Status DC Propofol (Diprivan) 20 ml @ As Directed STK-MED ONCE IV ; Start 10/13/16 at 13:27 ; Stop 10/14/16 at 07:31; Status DC Rocuronium [place] (Zemuron) 50 mg STK-MED ONCE .ROUTE ; Start 10/13/16 at 13:27 ; Stop 10/14/16 at 07:31; Status DC Lidocaine HCl 100 mg STK-MED ONCE .ROUTE ; Start 10/13/16 at 13:27; Stop at 07:31; Status DC Fentanyl Citrate (Fentanyl 2ml Vial) 100 mcg STK-MED ONCE .ROUTE ; Start at 13:27; Stop 10/14/16 at 07:31; Status DC Ephedrine Sulfate (Akovaz) 50 mg STK-MED ONCE .ROUTE ; Start 10/13/16 at 14:00; Stop 10/14/16 at 07:31; Status DC Phenylephrine HCl 1 mg STK-MED ONCE IV ; Start 10/13/16 at 14:25; Stop 10/14/16 at 07:31; Status DC Desflurane (Suprane) 60 ml STK-MED ONCE IH ; Start 10/13/16 at 14:25; Stop at 07:31; Status DC Dexamethasone Sodium Phosphate (Decadron) 20 mg STK-MED ONCE .ROUTE ; Start 10/13 at 14:25; Stop 10/14/16 at 07:31; Status DC Ondansetron HCl (Zofran) 4 mg STK-MED ONCE .ROUTE ; Start 10/13/16 at 14:25; Stop 10/14/16 at 07:31; Status DC Famotidine (Pepcid) 20 mg STK-MED ONCE .ROUTE ; Start 10/13/16 at 14:25; Stop 07/21 at 07:31; Status DC Rocuronium [place] (Zemuron) 50 mg STK-MED ONCE .ROUTE ; Start 10/13/16 at 16:19 ; Stop 10/14/16 at 07:31; Status DC Fentanyl Citrate (Fentanyl 2ml Vial) 100 mcg STK-MED ONCE .ROUTE ; Start at 16:21; Stop 10/14/16 at 07:31; Status DC Desflurane (Suprane) 90 ml STK-MED ONCE IH ; Start 10/13/16 at 16:53; Stop at 07:31; Status DC Glycopyrrolate (Robinul) 1 mg STK-MED ONCE .ROUTE ; Start 10/13/16 at 17:00; Stop 10/14/16 at 07:31; Status DC Neostigmine Methylsulfate 5 mg STK-MED ONCE .ROUTE ; Start 10/13/16 at 17:00; Stop 10/14/16 at 07:31; Status DC Phenylephrine HCl 1 mg STK-MED ONCE IV ; Start 10/13/16 at 18:14; Stop 10/14/16 at 07:31; Status DC Fentanyl Citrate (Fentanyl 2ml Vial) 100 mcg STK-MED ONCE .ROUTE ; Start at 18:20; Stop 10/14/16 at 07:31; Status DC Fentanyl Citrate 100 mcg 100 mcg STK-MED ONCE .ROUTE ; Start 10/13/16 at 19:17; Stop 10/14/16 at 07:31; Status DC Levetiracetam 500 mg/Sodium Chloride 105 ml @ 400 mls/hr Q12HR IV Last administered on 10/24/16 09:04; Start 10/14/16 at 09:00 Amino Acids/ Glycerin/ Electrolytes (Procalamine) 1,000 ml @ 80 mls/hr [id number] IV Last administered on 10/16/16 09:16; Start 10/14/16 at 11:15; Stop at 21:59; Status DC Morphine Sulfate 2 mg PRN Q4HRS PRN IV MODERATE PAIN Last administered on 00:57; Start 10/14/16 at 14:15 Morphine Sulfate 4 mg PRN Q4HRS PRN IV SEVERE PAIN Last administered on 04:58; Start 10/14/16 at 14:30 Info 1 each 1 each PRN DAILY PRN MC SEE COMMENTS Last administered on 13:47; Start 10/16/16 at 11:30 Sodium Chloride/ Potassium Chloride/ Potassium Phosphate/ Magnesium Sulfate/ Calcium Gluconate/ Multivitamins/ Minerals/Chromium/ Copper/Manganese/ Seleni/Zn /Total Parenteral Nutrition/Amino Acids/Dextrose/ Fat Emulsion Intravenous ( Sodium Chloride/ Potassium Phospha... 1,512 ml @ 63 mls/hr TPN CONT IV ; Start 10/16/16 at 22:00; Stop 10/17/16 at 12:50; Status DC Lidocaine/Sodium Bicarbonate 20 ml 20 ml STK-MED ONCE IJ ; Start 10/17/16 at 08: 20; Stop 10/17/16 at 08:21; Status DC Heparin Sodium/ Sodium Chloride 500 ml @ As Directed STK-MED ONCE .ROUTE ; Start 10/17/16 at 08:20; Stop 10/17/16 at 08:21; Status DC Lidocaine/Sodium Bicarbonate (Buffered Lidocaine 1%) 3 ml 1X ONCE IJ Last administered on 10/17/16 08:30; Start 10/17/16 at 08:30; Stop 10/17/16 at 08:31 ; Status DC Heparin Sodium/ Sodium Chloride 60 unit 1X ONCE IV Last administered on 08:30; Start 10/17/16 at 08:30; Stop 10/17/16 at 08:31; Status DC Iohexol (Omnipaque 300 Mg/ml) 50 ml STK-MED ONCE .ROUTE ; Start 10/17/16 at 09: 02; Stop 10/17/16 at 09:03; Status DC Iohexol (Omnipaque 300 Mg/ml) 43 ml 1X ONCE IART Last administered on 08:45; Start 10/17/16 at 09:30; Stop 10/17/16 at 09:33; Status DC Info (Do NOT chart on this entry -- for MONITORING) 1 each PRN DAILY PRN MC SEE COMMENTS; Start 10/17/16 at 09:45; Stop 10/19/16 at 09:44; Status DC Clonidine HCl (Catapres Tts-2) 1 patch WEEKLY TD Last administered on 09:12; Start 10/17/16 at 11:00 Labetalol HCl 20 mg 20 mg PRN Q6HRS PRN IVP HYPERTENSION, SEE COMMENTS; Start 10/17/16 at 10:30 Sodium Chloride 1,000 ml @ 60 mls/hr [id number] IV Last administered on 06:32; Start 10/17/16 at 12:30; Stop 10/19/16 at 10:06; Status DC Sodium Chloride 90 meq/Potassium Chloride 50 meq/ Potassium Phosphate 13.6 mmol/ Magnesium Sulfate 10 meq/ Calcium Gluconate 10 meq/ Multivitamins/ Minerals 10 ml/ Chromium/Copper/ Manganese/Seleni/ Zn 1 ml/Total Parenteral Nutrition/Amino Acids/Dextrose/ Fat Emulsion Intravenous 1,512 ml @ 63 mls/hr TPN CONT IV Last administered on 10/17/16 21:09; Start 10/17/16 at 22:00; Stop 10/18/16 at 21:59; Status DC Sodium Chloride/ Potassium Chloride/ Potassium Phosphate/ Magnesium Sulfate/ Calcium Gluconate/ Multivitamins/ Minerals/Chromium/ Copper/Manganese/ Seleni/Zn /Total Parenteral Nutrition/Amino Acids/Dextrose/ Fat Emulsion Intravenous ( Sodium Chloride/ Potassium Phospha... 1,512 ml @ 63 mls/hr TPN CONT IV Last administered on 10/18/16 21:24; Start 10/18/16 at 22:00; Stop 10/19/16 at 21:59 ; Status DC Furosemide 20 mg 20 mg 1X ONCE IVP Last administered on 10/19/16 11:01; Start 10/19/16 at 10:30; Stop 10/19/16 at 10:31; Status DC Sodium Chloride 90 meq/Sodium Acetate 40 meq/ Potassium Chloride 50 meq/ Potassium Phosphate 13.6 mmol/Magnesium Sulfate 10 meq/ Calcium Gluconate 10 meq / Multivitamins/ Minerals 10 ml/ Chromium/Copper/ Manganese/Seleni/ Zn 1 ml/ Total Parenteral Nutrition/Amino Acids/Dextro... 1,920 ml @ 80 mls/hr TPN CONT IV Last administered on 10/19/16 22:29; Start 10/19/16 at 22:00; Stop at 21:59; Status DC Sodium Chloride 1,000 ml @ 45 mls/hr [id number] IV Last administered on 22:24; Start 10/20/16 at 09:00; Stop 10/21/16 at 09:26; Status DC Magnesium Sulfate/ Dextrose 50 ml @ 25 mls/hr PRN DAILY PRN IV for Mag < 1.7 on am labs; Start 10/20/16 at 13:15 Sodium Chloride/ Sodium Acetate/ Potassium Chloride/ Potassium Phosphate/ Magnesium Sulfate/ Calcium Gluconate/ Multivitamins/ Minerals/Chromium/ Copper/ Manganese/ Seleni/Zn/Total Parenteral Nutrition/Amino Acids/Dextrose/ Fat Emulsion Intravenous (Sodium Chloride/ Potass... 1,920 ml @ 80 mls/hr TPN CONT IV Last administered on 10/20/16 22:23; Start 10/20/16 at 22:00; Stop at 21:59; Status DC Acetaminophen/ Hydrocodone Bitart 1 tab 1 tab PRN Q4HRS PRN PO PAIN Last administered on 10/21/16 23:51; Start 10/21/16 at 09:30; Stop 10/22/16 at 10:39 ; Status DC Sodium Chloride/ Sodium Acetate/ Potassium Chloride/ Potassium Phosphate/ Magnesium Sulfate/ Calcium Gluconate/ Multivitamins/ Minerals/Chromium/ Copper/ Manganese/ Seleni/Zn/Total Parenteral Nutrition/Amino Acids/Dextrose/ Fat Emulsion Intravenous (Sodium Chloride/ Potass... 1,920 ml @ 80 mls/hr TPN CONT IV Last administered on 10/21/16 22:22; Start 10/21/16 at 22:00; Stop at 21:59; Status DC Metoclopramide HCl (Reglan) 10 mg 1X ONCE IV Last administered on 10/22/16 01 :56; Start 10/22/16 at 02:00; Stop 10/22/16 at 02:01; Status DC Lorazepam (Ativan) 1 mg 1X ONCE IV Last administered on 10/22/16 02:35; Start 10/22/16 at 02:30; Stop 10/22/16 at 02:31; Status DC Morphine Sulfate 2 mg PRN Q1HR PRN IV PAIN Last administered on 10/24/16 08:57 ; Start 10/22/16 at 02:30 Famotidine (Pepcid) 20 mg 1X ONCE IVP Last administered on 10/22/16 02:35; Start 10/22/16 at 02:30; Stop 10/22/16 at 02:31; Status DC Hydralazine HCl (Apresoline) 10 mg PRN Q6HRS PRN IVP ELEVATED BP, SEE COMMENTS ; Start 10/22/16 at 10:45 Iohexol (Omnipaque 300 Mg/ml) 60 ml 1X ONCE PO Last administered on 10/22/16 11:43; Start 10/22/16 at 11:00; Stop 10/22/16 at 11:01; Status DC Iohexol (Omnipaque 300 Mg/ml) 60 ml 1X ONCE IV Last administered on 10/22/16 11:19; Start 10/22/16 at 11:00; Stop 10/22/16 at 11:01; Status DC Info 1 each 1 each PRN DAILY PRN MC SEE COMMENTS; Start 10/22/16 at 11:00; Stop 10/24/16 at 10:59 Sodium Chloride 50 meq/Sodium Acetate 80 meq/ Potassium Chloride 50 meq/ Potassium Phosphate 18 mmol/ Magnesium Sulfate 10 meq/Calcium Gluconate 10 meq/ Multivitamins/ Minerals 10 ml/ Chromium/Copper/ Manganese/Seleni/ Zn 1 ml/Total Parenteral Nutrition/Amino Acids/Dextrose/ Fat Emuls... 1,920 ml @ 80 mls/hr TPN CONT IV Last administered on 10/22/16 21:46; Start 10/22/16 at 22:00; Stop 10/23/16 at 21:59; Status DC Levothyroxine Sodium/Sodium Chloride (Synthroid/Iv Sodium Chloride 0.9% 50ml) 5 ml @ 100 mls/hr DAILY IVP Last administered on 10/24/16 09:00; Start 10/23/16 at 14:00 Furosemide (Lasix) 20 mg 1X ONCE IVP Last administered on 10/23/16 12:45; Start 10/23/16 at 12:30; Stop 10/23/16 at 12:31; Status DC Alteplase, Recombinant 2 mg 2 mg 1X ONCE INT CAT Last administered on 12:45; Start 10/23/16 at 12:30; Stop 10/23/16 at 12:31; Status DC Sodium Chloride/ Sodium Acetate/ Potassium Chloride/ Potassium Phosphate/ Magnesium Sulfate/ Calcium Gluconate/ Multivitamins/ Minerals/Chromium/ Copper/ Manganese/ Seleni/Zn/Total Parenteral Nutrition/Amino Acids/Dextrose/ Fat Emulsion Intravenous (Sodium Chloride/ Potass... 1,920 ml @ 80 mls/hr TPN CONT IV Last administered on 10/23/16 21:37; Start 10/23/16 at 22:00; Stop at 21:59 Acetaminophen (Tylenol) 650 mg PRN Q6HRS PRN [place] MILD PAIN / TEMP Last administered on 10/23/16 23:09; Start 10/23/16 at 23:00 Active Scripts Active Hydrocodone-Apap 5-325 (Hydrocodone Bit/Acetaminophen) 1 Each Tablet 1 Tab PO PRN Q6HRS PRN Metoprolol Succinate ( Xl ) (Metoprolol Succinate) 25 Mg Tab.er.24h 25 Mg PO DAILY Reported Flomax (Tamsulosin Hcl) 0.4 Mg Cap.er.24h 1 Cap PO QHS Tramadol Hcl 100 Mg Tab.er.24h 100 Mg PO QID Levetiracetam 250 Mg Tablet 250 Mg PO BID Dulcolax (Bisacodyl) 10 Mg Supp.rect 10 Mg RC PRN DAILY PRN Maalox Advanced Suspension (Mag Hydrox/Al Hydrox/Simeth) 770 Ml Oral.susp 30 Ml PO Q2HR PRN Milk Of Magnesia (Magnesium Hydroxide) 400 Mg/5 Ml Oral.susp 30 Ml PO DAILY PRN Robitussin Cough-Chest Dm Liq (Guaifenesin/Dextromethorphan) 118 Ml Liquid 10 Ml PO Q4HRS PRN Trazodone Hcl 50 Mg Tablet 1 Tab PO QHS Tylenol (Acetaminophen) 325 Mg Tablet 650 Mg PO Q6HRS PRN Pramipexole Dihydrochloride (Pramipexole Di-Hcl) 0.5 Mg Tablet 0.5 Mg PO TID Simvastatin 20 Mg Tablet 1 Tab PO QHS Levothyroxine Sodium 100 Mcg Tablet 1 Tab PO DAILY Gabapentin 800 Mg Tablet 800 Mg PO QID Sinemet 25-100 Mg Tablet (Carbidopa/Levodopa) 1 Each Tablet 2 Tab PO TID Aspirin 81 Mg Tab.chew 1 Tab PO DAILY Vitals/I & O Vital Sign - Last 24 Hours 10/23/16 10/23/16 10/23/16 10/23/16 11:00 11:28 14:04 15:00 Temp 98.1 98.2 98.1 98.2 Pulse 82 95 Resp 18 18 B/P 165/80 149/61 Pulse Ox 97 96 O2 Delivery Nasal Cannula Nasal Cannula Nasal Cannula Nasal Cannula O2 Flow Rate 4.0 4.0 4.0 4.0 10/23/16 10/23/16 10/23/16 10/23/16 16:23 18:17 19:00 20:13 Temp 100.9 100.9 Pulse 86 Resp 18 20 B/P 141/54 Pulse Ox 96 96 O2 Delivery Nasal Cannula Nasal Cannula Nasal Cannula Nasal Cannula O2 Flow Rate 4.0 4.0 3.5 4.0 10/23/16 10/23/16 10/23/16 10/24/16 20:15 21:38 23:00 00:12 Temp 101.1 99.9 101.1 99.9 Pulse 105 Resp 20 B/P 112/52 Pulse Ox 96 90 O2 Delivery Nasal Cannula Nasal Cannula Nasal Cannula O2 Flow Rate 4.0 4.0 3.5 10/24/16 10/24/16 10/24/16 10/24/16 01:30 03:00 03:01 04:58 Temp 101.1 101.1 Pulse 101 Resp 20 B/P 130/62 Pulse Ox 90 96 90 94 O2 Delivery Nasal Cannula Nasal Cannula Nasal Cannula Nasal Cannula O2 Flow Rate 3.5 3.5 3.5 3.5 10/24/16 10/24/16 10/24/16 10/24/16 05:30 06:34 07:00 07:04 Temp 98.6 98.6 Pulse 103 Resp B/P 109/64 Pulse Ox 94 94 91 94 O2 Delivery Nasal Cannula Nasal Cannula Nasal Cannula O2 Flow Rate 3.5 3.5 3.5 3.5 10/24/16 10/24/16 10/24/16 07:48 08:57 09:15 O2 Delivery Nasal Cannula Nasal Cannula Nasal Cannula O2 Flow Rate 3.5 3.5 Intake and Output 10/23/16 10/23/16 10/24/16 15:00 23:00 07:00 Intake Total 1160 ml Output Total 1000 ml 200 ml Balance -1000 ml 960 ml RICHARD [place] MD Oct 24, 2016 09:26
[2016-10-24] MEDS ORDERED: POTASSIUM CL 20MEQ D5-0.45NACL 1,000 ML IV SCH (09:30)
--- NOTE | 2016-10-24 09:59 | RAD ---
Indication assess nasogastric tube placement. A single view targeted to the lower chest and upper abdomen was obtained. There is a coiled nasogastric tube. Coiling in the esophagus, as opposed to the trachea, is felt more likely although the sachin is not well identified on the single film. Volume loss in the left lower lobe is noted similar to the examination 2 days previously. Neuro stimulating device is noted. IMPRESSION: Coiled NG tube. See above discussion
[2016-10-24 10:48] VITALS: BP 156/68
--- NOTE | 2016-10-24 11:05 | RAD ---
Indication assess nasogastric tube placement. A single view targeted to the chest and upper abdomen was obtained at 10:15. A nasogastric tube is coiled in the esophagus. IMPRESSION: Coiled nasogastric tube in the esophagus
[2016-10-24] MEDS: TPN PER PHARMACY MC PRN (12:31)
--- NOTE | 2016-10-24 12:53 | PDOC ---
PAZ MONTEJO [employer] 10/24/16 1253: SURGICAL PROGRESS NOTE Subjective denies abdominal pain d/w nursing still spitting up bilious material no stool since 10/19 Vital Signs Vital Signs Date Time Temp Pulse Resp B/P Pulse Ox O2 Delivery O2 Flow Rate FiO2 10/24/16 10:48 98.1 109 20 156/68 93 Nasal Cannula 3.5 98.1 I&O Intake and Output 10/24/16 07:00 Intake Total 1160 ml Output Total 1200 ml Balance -40 ml Intake Oral 0 ml IV Total 1160 ml Output Urine Total 1200 ml General: Cooperative, Other (chronic ill appearing ) Abdomen: Soft, Other (distended) Labs Laboratory Tests Test 10/23/16 05:50 10/24/16 07:35 Sodium Level 136mmol/L (136-145) 140mmol/L (136-145) Potassium Level 4.6mmol/L (3.5-5.1) 4.7mmol/L (3.5-5.1) Chloride Level 103mmol/L (98-107) 105mmol/L (98-107) Carbon Dioxide Level 26mmol/L (21-32) 27mmol/L (21-32) Anion Gap 7 (6-14) 8 (6-14) Blood Urea Nitrogen 16mg/dL (8-26) 22mg/dL (8-26) Creatinine 1.2mg/dL (0.7-1.3) 1.3mg/dL (0.7-1.3) Estimated GFR (Cockcroft-Gault) 57.5 52.5 Glucose Level 125mg/dL (70-99) 114mg/dL (70-99) Calcium Level 8.3mg/dL (8.5-10.1) 8.2mg/dL (8.5-10.1) Phosphorus Level 2.8mg/dL (2.6-4.7) 3.2mg/dL (2.6-4.7) Magnesium Level 1.8mg/dL (1.8-2.4) Albumin 1.7g/dL (3.4-5.0) 1.8g/dL (3.4-5.0) Thyroid Stimulating Hormone (TSH) 12.563uIU/mL (0.358-3.74) Laboratory Tests Test 10/24/16 07:35 Sodium Level 140mmol/L (136-145) Potassium Level 4.7mmol/L (3.5-5.1) Chloride Level 105mmol/L (98-107) Carbon Dioxide Level 27mmol/L (21-32) Anion Gap 8 (6-14) Blood Urea Nitrogen 22mg/dL (8-26) Creatinine 1.3mg/dL (0.7-1.3) Estimated GFR (Cockcroft-Gault) 52.5 Glucose Level 114mg/dL (70-99) Calcium Level 8.2mg/dL (8.5-10.1) Phosphorus Level 3.2mg/dL (2.6-4.7) Albumin 1.8g/dL (3.4-5.0) Problem List Problems Medical Problems: (1) SBO (small bowel obstruction) Status: Acute Assessment/Plan trouble with NG placement, will ask radiology to place prolonged ileus fevers, WBC normal supportive care Problems: KENDRICK CULVER MD 10/28/16 1222: SURGICAL PROGRESS NOTE Assessment/Plan Agree with above Problems: PAZ MONTEJO APRN Oct 24, 2016 12:53 KENDRICK CULVER MD Oct 28, 2016 12:22
--- NOTE | 2016-10-24 13:29 | PDOC ---
Objective: Objective: D/w RN - PICC placement in process. Bilious emesis. Difficulty w/ NG placement. Reviewed other notes - radiology to place NG. Vital Signs: Vital Signs Date Time Temp Pulse Resp B/P Pulse Ox O2 Delivery O2 Flow Rate FiO2 10/24/16 10:48 98.1 109 20 156/68 93 Nasal Cannula 3.5 98.1 Labs: Laboratory Tests Test 10/24/16 07:35 Sodium Level 140mmol/L Potassium Level 4.7mmol/L Chloride Level 105mmol/L Carbon Dioxide Level 27mmol/L Anion Gap 8 Blood Urea Nitrogen 22mg/dL Creatinine 1.3mg/dL Estimated GFR (Cockcroft-Gault) 52.5 Glucose Level 114mg/dL Calcium Level 8.2mg/dL Phosphorus Level 3.2mg/dL Albumin 1.8g/dL Imaging: KUB 10/24/16 IMPRESSION: Coiled nasogastric tube in the esophagus. PE: no exam A/P: SBO s/p exp lap 10/13/15 w/ CONG, post-op ileus -on TPN, NPO N/v Fever -- Having PICC placed when I stopped by. Will follow. GAYLA CLEMENTE Oct 24, 2016 13:29
--- NOTE | 2016-10-24 13:53 | RAD ---
Indication assess PICC line placement. A single view of the chest was obtained and is compared to an examination 2 days earlier. Heart and pulmonary vessels are similar. Some volume loss at the left lung base is seen and appears similar. A right PICC line is noted. Positioning of the tip is not certain the PICC line appears to extend at least to the area of the SVC right atrial junction. Neuro stimulating device is additionally noted. IMPRESSION: No significant change in the appearance of the chest. Some volume loss at the left lung base persists. Right PICC line. Positioning of the tip is not certain but the line appears to extend at least to the SVC right atrial junction
[2016-10-24] MEDS ORDERED: IV 1/2 NORMAL SALINE 1,000 ML IV SCH (14:00)
[2016-10-24 15:00] VITALS: BP 139/74
[2016-10-24 19:15] VITALS: BP 106/44
[2016-10-24] MEDS ORDERED: DEXTROSE 70% IV SCH ×11 (22:00)
[2016-10-24] MEDS ORDERED: AMINO ACIDS IV SCH ×11 (22:00)
[2016-10-24] MEDS ORDERED: [UNRECOGNIZED DRUG - OTHER] IV SCH ×11 (22:00)
[2016-10-24] MEDS ORDERED: TOTAL PARENTERAL NUTRITION IV SCH ×11 (22:00)
[2016-10-24 23:35] VITALS: BP 126/54
[2016-10-25] MEDS: ONDANSETRON PF 4 MG/2 ML VIAL. IV PRN (00:38)
[2016-10-25] MEDS: MORPHINE SULFATE 2 MG/ML DISP.SYRIN. IV PRN ×5 (01:20→15:58)
[2016-10-25 03:05] VITALS: BP 104/49
[2016-10-25 06:16] LABS: ALBUMIN 1.6 g/dL (3.4-5.0); CALCIUM 7.9 mg/dL (8.5-10.1); CREATININE 1.5 mg/dL (0.7-1.3); GFR 44.5; PHOSPHORUS 3.2 mg/dL (2.6-4.7); POTASSIUM 4.6 mmol/L (3.5-5.1)
[2016-10-25 07:00] VITALS: BP 151/67
--- NOTE | 2016-10-25 07:40 | RAD ---
Portable chest, 10/25/2016: History: Check PICC placement Comparison is made yesterday study. The patient is rotated to the left. The right PICC extends into the inferior aspect of the superior vena cava. There is a tube overlying the medial aspect of left upper arm which may represent an additional venous catheter. Clinical correlation is suggested. Spinal stimulator leads are projected over the lower thoracic spinal canal. The heart is at the upper limits of normal in size. The pulmonary vascularity is normal. There is a moderate-sized hiatal hernia. There is mild linear atelectasis in the right base. There is moderate atelectasis/infiltrate in the left base. IMPRESSION: 1. The right PICC is in satisfactory position. 2. Moderate left basilar atelectasis/infiltrate.
[2016-10-25] MEDS: PANTOPRAZOLE IV PUSH 40 MG VIAL. IVP SCH (09:21)
[2016-10-25] MEDS: ENOXAPARIN 40 MG/0.4 ML DISP.SYRIN. SQ SCH (09:21)
[2016-10-25] MEDS: LEVOTHYROXINE SODIUM 50 MCG in IV NORMAL SALINE 50ML 5 ML IVP SCH (09:22)
[2016-10-25] MEDS: LEVETIRACETAM 500 MG in IV NORMAL SALINE 100ML 100 ML IV SCH ×2 (09:23→21:00)
[2016-10-25] MEDS: MORPHINE SULFATE 4 MG/ML DISP.SYRIN. IV PRN ×2 (09:43→13:49)
--- NOTE | 2016-10-25 10:50 | PDOC ---
PAZ MONTEJO [employer] 10/25/16 1050: SURGICAL PROGRESS NOTE Subjective unable to have NG placed last documented stool 10/19 coughing up phlegm back and leg pain denies abdominal pain Vital Signs Vital Signs Date Time Temp Pulse Resp B/P Pulse Ox O2 Delivery O2 Flow Rate FiO2 10/25/16 09:43 22 Nasal Cannula 2.0 10/25/16 07:00 98.6 90 151/67 89 98.6 I&O Intake and Output 10/25/16 07:00 Intake Total 1669 ml Output Total 925 ml Balance 744 ml Intake Oral 0 ml IV Total 1669 ml Output Urine Total 925 ml General: Cooperative, No acute distress Abdomen: Soft, Other (NTTP) Labs Laboratory Tests Test 10/24/16 07:35 10/25/16 05:50 Sodium Level 140mmol/L (136-145) 135mmol/L (136-145) Potassium Level 4.7mmol/L (3.5-5.1) 4.6mmol/L (3.5-5.1) Chloride Level 105mmol/L (98-107) 103mmol/L (98-107) Carbon Dioxide Level 27mmol/L (21-32) 26mmol/L (21-32) Anion Gap 8 (6-14) 6 (6-14) Blood Urea Nitrogen 22mg/dL (8-26) 30mg/dL (8-26) Creatinine 1.3mg/dL (0.7-1.3) 1.5mg/dL (0.7-1.3) Estimated GFR (Cockcroft-Gault) 52.5 44.5 Glucose Level 114mg/dL (70-99) 152mg/dL (70-99) Calcium Level 8.2mg/dL (8.5-10.1) 7.9mg/dL (8.5-10.1) Phosphorus Level 3.2mg/dL (2.6-4.7) 3.2mg/dL (2.6-4.7) Albumin 1.8g/dL (3.4-5.0) 1.6g/dL (3.4-5.0) Magnesium Level 2.1mg/dL (1.8-2.4) Laboratory Tests Test 10/25/16 05:50 Sodium Level 135mmol/L (136-145) Potassium Level 4.6mmol/L (3.5-5.1) Chloride Level 103mmol/L (98-107) Carbon Dioxide Level 26mmol/L (21-32) Anion Gap 6 (6-14) Blood Urea Nitrogen 30mg/dL (8-26) Creatinine 1.5mg/dL (0.7-1.3) Estimated GFR (Cockcroft-Gault) 44.5 Glucose Level 152mg/dL (70-99) Calcium Level 7.9mg/dL (8.5-10.1) Phosphorus Level 3.2mg/dL (2.6-4.7) Magnesium Level 2.1mg/dL (1.8-2.4) Albumin 1.6g/dL (3.4-5.0) Problem List Problems Medical Problems: (1) SBO (small bowel obstruction) Status: Acute Assessment/Plan ileus, will check abdominal films Problems: KENDRICK CULVER MD 10/26/16 1046: SURGICAL PROGRESS NOTE Assessment/Plan Agree with above Problems: PAZ MONTEJO APRN Oct 25, 2016 10:50 KENDRICK CULVER MD Oct 26, 2016 10:46
[2016-10-25 11:00] VITALS: BP 128/65
[2016-10-25] MEDS ORDERED: FUROSEMIDE 40 MG/4 ML VIAL IVP ONE (11:45)
--- NOTE | 2016-10-25 11:53 | PDOC ---
PROGRESS NOTES Subjective Subjective does not feel better. no BM since 10/19. denies vomiting. expectorating villegas colored sputum. afebrile. no leukocytosis. cxr shows LLL atelactasis vs infiltrate. will order nebulizer rx and consult dr. villalobos. has peripheral edema in LUE and legs Objective Objective Vital Signs Date Time Temp Pulse Resp B/P Pulse Ox O2 Delivery O2 Flow Rate FiO2 10/25/16 11:32 22 2.0 10/25/16 09:43 Nasal Cannula 10/25/16 07:00 98.6 90 151/67 89 98.6 Intake and Output 10/25/16 07:00 Intake Total 1669 ml Output Total 925 ml Balance 744 ml Intake Oral 0 ml IV Total 1669 ml Output Urine Total 925 ml Physical Exam Abdomen: Soft, Other (decreased bowel sounds) Heart: Regular rate, Normal S1, Normal S2 Extremities: Other (1 to 2 plus edema legs and LUE) General: Alert HEENT: Atraumatic Lungs: Other (upper airway rhonchi in throat . lungs clear posteriorly) Neuro: Normal speech Psych/Mental Status: Mood NL Skin: No rashes Assessment Assessment Problems Medical Problems::Small-bowel obstruction resolved exploratory laparotomy 10/13/16. lysis of adhesions. bowel viable. post op ileus. prolonged 2. Seizure disorder. 3. Parkinson's disease. 4. Hypothyroidism. 5. Peripheral neuropathy. 6. Hypertension. 7. Chronic kidney disease stage III. klebsiella uti treated suspected gout synovitis resolved peripheral edema critical illness myopathy hematemesis once resolved paroxysmal atrial fibrillation. not a good candidate for anticoagulants (1) SBO (small bowel obstruction) Status: Acute Plan Plan of Care continue TPN d/c peripheral iv fluids iv lasix times 1 dose duoneb nebulizer rx consult dr. Villalobos sputum culture KUB hold off on antibiotics for now as he is afebrile and WBC normal and not toxic Comment Review of Relevant I have reviewed the following items [place] (where applicable) has been applied. Labs Laboratory Tests Test 10/24/16 07:35 10/25/16 05:50 Sodium Level 140mmol/L (136-145) 135mmol/L (136-145) Potassium Level 4.7mmol/L (3.5-5.1) 4.6mmol/L (3.5-5.1) Chloride Level 105mmol/L (98-107) 103mmol/L (98-107) Carbon Dioxide Level 27mmol/L (21-32) 26mmol/L (21-32) Anion Gap 8 (6-14) 6 (6-14) Blood Urea Nitrogen 22mg/dL (8-26) 30mg/dL (8-26) Creatinine 1.3mg/dL (0.7-1.3) 1.5mg/dL (0.7-1.3) Estimated GFR (Cockcroft-Gault) 52.5 44.5 Glucose Level 114mg/dL (70-99) 152mg/dL (70-99) Calcium Level 8.2mg/dL (8.5-10.1) 7.9mg/dL (8.5-10.1) Phosphorus Level 3.2mg/dL (2.6-4.7) 3.2mg/dL (2.6-4.7) Albumin 1.8g/dL (3.4-5.0) 1.6g/dL (3.4-5.0) Magnesium Level 2.1mg/dL (1.8-2.4) Laboratory Tests Test 10/25/16 05:50 Sodium Level 135mmol/L (136-145) Potassium Level 4.6mmol/L (3.5-5.1) Chloride Level 103mmol/L (98-107) Carbon Dioxide Level 26mmol/L (21-32) Anion Gap 6 (6-14) Blood Urea Nitrogen 30mg/dL (8-26) Creatinine 1.5mg/dL (0.7-1.3) Estimated GFR (Cockcroft-Gault) 44.5 Glucose Level 152mg/dL (70-99) Calcium Level 7.9mg/dL (8.5-10.1) Phosphorus Level 3.2mg/dL (2.6-4.7) Magnesium Level 2.1mg/dL (1.8-2.4) Albumin 1.6g/dL (3.4-5.0) Microbiology 10/13/16 Blood Culture - Final, Complete NO GROWTH AFTER 5 DAYS 10/13/16 Urine Culture - Final, Complete 10/13/16 Urine Culture Result 1 (MANDEEP) - Final, Complete Medications Current Medications Fentanyl Citrate 50 mcg 50 mcg PRN Q15MIN PRN IV PAIN GREATER THAN 3/10 Last administered on 09/30/16at 19:35; Start 09/30/16 at 17:30; Stop 10/01/16 at 04 :24; Status DC Lactated Ringer's (Iv Lactated Ringers) 1,000 ml @ 100 mls/hr Q10H IV Last administered on 09/30/16at 19:35; Start 09/30/16 at 17:28; Stop 10/01/16 at 03 :27; Status DC Ondansetron HCl (Zofran) 4 mg 1X ONCE IV Last administered on 09/30/16at 17:44 ; Start 09/30/16 at 17:30; Stop 09/30/16 at 17:32; Status DC Fentanyl Citrate (Fentanyl 2ml Vial) 50 mcg 1X ONCE IV ; Start 09/30/16 at 19: 15; Stop 10/01/16 at 04:24; Status DC Ondansetron HCl (Zofran) 4 mg PRN Q8HRS PRN IV NAUSEA/VOMITING Last administered on 09/30/16at 22:07; Start 09/30/16 at 19:15; Stop 10/01/16 at 19 :14; Status DC Fentanyl Citrate 50 mcg 50 mcg PRN Q2HR PRN IV PAIN Last administered on at 16:54; Start 09/30/16 at 19:15; Stop 10/01/16 at 19:14; Status DC Sodium Chloride 1,000 ml @ 100 mls/hr Q10H IV ; Start 09/30/16 at 19:30; Stop 10/01/16 at 04:24; Status DC Potassium Chloride/Dextrose/ Sod Cl (KCl 20 Meq In D5W-1/2 NS) 1,000 ml @ 125 mls/hr Q8H IV Last administered on 10/04/16at 06:02; Start 09/30/16 at 20:00; Stop 10/04/16 at 10:21; Status DC Enoxaparin Sodium 40 mg 40 mg Q24H SQ Last administered on 10/13/16t 08:14; Start 10/01/16 at 09:00; Stop 10/13/16 at 08:36; Status DC Levetiracetam/ Sodium Chloride (Keppra/Iv Sodium Chloride 0.9% 100ml) 105 ml @ 400 mls/hr Q12HR IV Last administered on 10/05/16 09:30; Start 09/30/16 at 21: 00; Stop 10/05/16 at 10:24; Status DC Morphine Sulfate 2 mg PRN Q4HRS PRN IV SEVERE PAIN Last administered on 10:13; Start 09/30/16 at 19:30; Stop 10/05/16 at 10:24; Status DC Acetaminophen (Tylenol) 650 mg PRN Q6HRS PRN [place] MILD PAIN / TEMP; Start at 19:30; Stop 10/05/16 at 10:24; Status DC Ondansetron HCl (Zofran) 4 mg PRN Q6HRS PRN IV NAUSEA/VOMITING Last administered on 10/07/16 08:28; Start 09/30/16 at 19:30; Stop 10/09/16 at 12:08 ; Status DC Benzocaine (Hurricaine One) 1 spray STK-MED ONCE .ROUTE ; Start 09/30/16 at 19: 51; Stop 09/30/16 at 19:52; Status DC Morphine Sulfate 4 mg PRN Q4HRS PRN IV PAIN Last administered on 10/05/16 08:08 ; Start 10/01/16 at 20:00; Stop 10/05/16 at 10:24; Status DC Clonidine HCl 1 patch 1 patch WEEKLY TD Last administered on 10/03/16at 12:30; Start 10/03/16 at 10:00; Stop 10/05/16 at 10:24; Status DC Piperacillin Sod/ Tazobactam Sod/ Sodium Chloride (Zosyn/Iv Sodium Chloride 0.9 % 50ml) 50 ml @ 100 mls/hr Q6HRS IV Last administered on 10/09/16 06:26; Start 10/04/16 at 11:00; Stop 10/09/16 at 10:55; Status DC Vancomycin HCl 1 each 1 each PRN DAILY PRN MC SEE COMMENTS Last administered on 10/07/16 11:11; Start 10/04/16 at 10:15; Stop 10/07/16 at 11:28; Status DC Vancomycin HCl/ Sodium Chloride (Iv Sodium Chloride 0.9% 250ml) 250 ml @ 250 mls/hr Q24H IV ; Start 10/04/16 at 10:15; Status UNV Labetalol HCl (Normodyne) 20 mg PRN Q6HRS PRN IVP HYPERTENSION, SEE COMMENTS; Start 10/04/16 at 10:15; Stop 10/05/16 at 10:24; Status DC Hydralazine HCl 10 mg 10 mg PRN Q6HRS PRN IVP ELEVATED BP, SEE COMMENTS Last administered on 10/06/16 19:17; Start 10/04/16 at 10:15; Stop 10/12/16 at 10:40 ; Status DC Amino Acids/ Glycerin/ Electrolytes 1,000 ml @ 40 mls/hr Q24H IV Last administered on 10/06/16 09:59; Start 10/04/16 at 10:15; Stop 10/07/16 at 09:06 ; Status DC Vancomycin HCl 2 gm/Sodium Chloride 500 ml @ 250 mls/hr 1X ONCE IV Last administered on 10/04/16at 11:26; Start 10/04/16 at 10:45; Stop 10/04/16 at 12 :44; Status DC Vancomycin HCl/ Sodium Chloride (Iv Sodium Chloride 0.9% 500ml Bag) 500 ml @ 250 mls/hr Q24H IV Last administered on 10/06/16 11:47; Start 10/05/16 at 12:00 ; Stop 10/07/16 at 11:28; Status DC Vancomycin HCl 1 each 1X ONCE MC Last administered on 10/06/16 11:30; Start at 11:30; Stop 10/06/16 at 11:31; Status DC Aspirin (Children'S Aspirin) 81 mg [id number] PO Last administered on 10/13/16 08:15; Start 10/05/16 at 11:00; Stop 10/13/16 at 08:29; Status DC Gabapentin (Neurontin) 600 mg QID PO Last administered on 10/13/16 08:14; Start 10/05/16 at 13:00; Stop 10/14/16 at 08:47; Status DC Levetiracetam (Keppra) 250 mg BID PO Last administered on 10/13/16 08:17; Start 10/05/16 at 11:00; Stop 10/14/16 at 08:47; Status DC Levothyroxine Sodium (Synthroid) 100 mcg [id number] PO Last administered on 05:08; Start 10/05/16 at 10:30; Stop 10/14/16 at 08:48; Status DC Metoprolol Succinate (Toprol Xl) 25 mg DAILY PO Last administered on 10/13/16 08:16; Start 10/05/16 at 11:00; Stop 10/14/16 at 08:47; Status DC Pramipexole Dihydrochloride (miraPEX) 0.5 mg [id number] PO Last administered on 10/13 08:15; Start 10/05/16 at 11:00; Stop 10/14/16 at 08:48; Status DC Simvastatin (Zocor) 20 mg HS PO Last administered on 10/12/16 21:07; Start 10/05 at 21:00; Stop 10/14/16 at 08:48; Status DC Carbidopa/Levodopa (Sinemet Cr) 1 tab.sa TID PO Last administered on 10/13/16 08:16; Start 10/05/16 at 11:00; Stop 10/14/16 at 08:48; Status DC Tamsulosin HCl (Flomax) 0.4 mg QHS PO Last administered on 10/12/16 21:07; Start 10/05/16 at 21:00; Stop 10/14/16 at 08:48; Status DC Tramadol HCl (Ultram) 50 mg QID PO Last administered on 10/13/16 08:17; Start 10/05/16 at 13:00; Stop 10/14/16 at 08:48; Status DC Acetaminophen (Tylenol) 650 mg PRN Q4HRS PRN PO MILD PAIN / TEMP Last administered on 10/13/16 00:17; Start 10/05/16 at 10:15; Stop 10/14/16 at 08:48; Status DC Prednisone (Prednisone) 20 mg 1X ONCE PO Last administered on 10/06/16 11:01; Start 10/06/16 at 10:30; Stop 10/06/16 at 10:31; Status DC Prednisone (Prednisone) 10 mg DAILY08 PO Last administered on 10/13/16 08:15; Start 10/07/16 at 08:00; Stop 10/13/16 at 08:29; Status DC Al Hydroxide/Mg Hydroxide (Mylanta Plus Xs) 30 ml PRN Q4HRS PRN PO HEARTBURN / GAS Last administered on 10/12/16 21:07; Start 10/07/16 at 08:45; Stop 10/14/16 at 08:48; Status DC Pantoprazole Sodium (Protonix) 40 mg DAILYAC PO Last administered on 10/13/16 05:08; Start 10/07/16 at 10:00; Stop 10/13/16 at 06:45; Status DC Furosemide 40 mg 40 mg DAILY PO Last administered on 10/08/16 08:42; Start 10/07 at 10:00; Stop 10/08/16 at 08:56; Status DC Sodium Chloride (Iv Sodium Chloride 0.45%) 1,000 ml @ 60 mls/hr CONT PRN IV . ; Start 10/08/16 at 09:00; Stop 10/08/16 at 16:06; Status DC Bisacodyl 10 mg 10 mg 1X ONCE [place] Last administered on 10/08/16 10:11; Start at 09:30; Stop 10/08/16 at 09:31; Status DC Sodium Chloride (Iv Sodium Chloride 0.45%) 1,000 ml @ 60 mls/hr [id number] IV Last administered on 10/09/16 02:52; Start 10/08/16 at 10:15; Stop 10/09/16 at 12: 00; Status DC Cefpodoxime Proxetil (Vantin) 200 mg BID PO ; Start 10/09/16 at 11:00; Stop at 12:08; Status DC Cefpodoxime Proxetil (Vantin) 100 mg BID PO Last administered on 10/13/16 08:16 ; Start 10/09/16 at 21:00; Stop 10/13/16 at 08:29; Status DC Ondansetron HCl (Zofran) 4 mg STK-MED ONCE .ROUTE Last administered on 01:24; Start 10/13/16 at 01:19; Stop 10/13/16 at 01:20; Status DC Ondansetron HCl (Zofran) 4 mg PRN Q6HRS PRN IV NAUSEA/VOMITING Last administered on 10/25/16 00:38; Start 10/13/16 at 02:00 Pantoprazole Sodium 40 mg 40 mg DAILYAC IVP Last administered on 10/25/16 09: 21; Start 10/13/16 at 07:30 Dextrose/Sodium Chloride (Iv D5% - NS) 1,000 ml @ 60 mls/hr [id number] IV Last administered on 10/13/16 09:25; Start 10/13/16 at 08:30; Stop 10/13/16 at 11:01; Status DC Sodium Polystyrene Sulfonate 15 gm 15 gm 1X ONCE PO Last administered on 09:26; Start 10/13/16 at 08:30; Stop 10/13/16 at 08:31; Status DC Piperacillin Sod/ Tazobactam Sod 3.375 gm/Sodium Chloride 50 ml @ 100 mls/hr Q6HRS IV Last administered on 10/19/16 12:42; Start 10/13/16 at 09:00; Stop at 15:06; Status DC Dextrose/Sodium Chloride (Iv D5% - 1/2 NS) 1,000 ml @ 50 mls/hr Q20H IV Last administered on 10/17/16 00:16; Start 10/13/16 at 11:00; Stop 10/17/16 at 12:23 ; Status DC Ondansetron HCl (Zofran) 4 mg PRN Q6HRS PRN IV Nausea 1ST CHOICE; Start at 12:30; Stop 10/14/16 at 11:07; Status DC Fentanyl Citrate (Fentanyl 2ml Vial) 25 mcg PRN Q5MIN PRN IV MILD PAIN; Start 10/13/16 at 12:30; Stop 10/14/16 at 11:04; Status DC Fentanyl Citrate (Fentanyl 2ml Vial) 50 mcg PRN Q5MIN PRN IV MODERATE PAIN; Start 10/13/16 at 12:30; Stop 10/14/16 at 11:04; Status DC Morphine Sulfate 1 mg 1 mg PRN Q10MIN PRN IV SEVERE PAIN; Start 10/13/16 at 12: 30; Stop 10/14/16 at 11:00; Status DC Lactated Ringer's (Iv Lactated Ringers) 1,000 ml @ 0 mls/hr Q0M IV ; Start 10/13 at 12:17; Stop 10/14/16 at 00:16; Status DC Lidocaine HCl 2 ml 1X PRN PRN ID IV START; Start 10/13/16 at 12:30; Stop at 16:03; Status DC Hydromorphone HCl (Dilaudid) 0.5 mg PRN Q10MIN PRN IV SEV PAIN,Second choice; Start 10/13/16 at 12:30; Stop 10/14/16 at 11:04; Status DC Prochlorperazine Edisylate (Compazine) 5 mg PACU PRN PRN IV NAUSEA; Start at 12:30; Stop 10/14/16 at 11:00; Status DC Fentanyl Citrate (Fentanyl 2ml Vial) 50 mcg PRN Q5MIN PRN IV Acute Pain Last administered on 10/14/16t 10:04; Start 10/13/16 at 13:00; Stop 10/14/16 at 11:04 ; Status DC Morphine Sulfate 4 mg PRN Q10MIN PRN IV Moderate Pain; Start 10/13/16 at 13:00; Stop 10/14/16 at 11:00; Status DC Hydromorphone HCl (Dilaudid) 0.4 mg PRN Q10MIN PRN IV Moderate to severe pain; Start 10/13/16 at 13:00; Stop 10/14/16 at 11:04; Status DC Meperidine HCl (Demerol) 12.5 mg PRN Q5MIN PRN IV SHIVERING; Start 10/13/16 at 13:00; Stop 10/14/16 at 11:00; Status DC Prochlorperazine Edisylate (Compazine) 5 mg PRN Q6HRS PRN IV Nausea/Vomiting, 1st Choice; Start 10/13/16 at 13:00; Stop 10/14/16 at 11:00; Status DC Diphenhydramine HCl (Benadryl) 12.5 mg PRN Q2HR PRN IV ITCHING; Start 10/13/16 at 13:00; Stop 10/14/16 at 11:00; Status DC Midazolam HCl (Versed) 2 mg PRN 1X PRN IV PRIOR TO PROCEDURE; Start 10/13/16 at 13:00; Stop 10/14/16 at 11:07; Status DC Midazolam HCl (Versed) 1 mg PRN 1X PRN IV PRIOR TO PROCEDURE; Start 10/13/16 at 13:00; Stop 10/14/16 at 11:07; Status DC Fentanyl Citrate (Fentanyl 2ml Vial) 25 mcg PRN Q5MIN PRN IV X 2 DOSES FOR PAIN ; Start 10/13/16 at 13:00; Stop 10/14/16 at 11:04; Status DC Fentanyl Citrate 50 mcg 50 mcg PRN Q5MIN PRN IV X 2 DOSES FOR PAIN; Start at 13:00; Stop 10/14/16 at 11:04; Status DC Lactated Ringer's (Iv Lactated Ringers) 1,000 ml @ 125 mls/hr Q8H IV Last administered on 10/13/16 13:30; Start 10/13/16 at 12:48; Stop 10/14/16 at 00:47; Status DC Lidocaine HCl 2 ml 1X PRN PRN ID IV START; Start 10/13/16 at 13:00; Stop at 16:03; Status DC Fentanyl Citrate (Fentanyl 2ml Vial) 25 mcg PRN Q2HR PRN IV PAIN MOD TO SEV; Start 10/13/16 at 20:30; Stop 10/14/16 at 14:15; Status DC Fentanyl Citrate (Fentanyl 2ml Vial) 50 mcg PRN Q2HR PRN IV PAIN MOD TO SEV Last administered on 10/14/16 12:02; Start 10/13/16 at 20:30; Stop 10/14/16 at 14:15; Status DC Enoxaparin Sodium (Lovenox 40mg Syringe) 40 mg Q24H SQ Last administered on 09:21; Start 10/14/16 at 09:00 Fentanyl Citrate 100 mcg 100 mcg STK-MED ONCE .ROUTE ; Start 10/13/16 at 13:27; Stop 10/14/16 at 07:31; Status DC Propofol (Diprivan) 20 ml @ As Directed STK-MED ONCE IV ; Start 10/13/16 at 13:27 ; Stop 10/14/16 at 07:31; Status DC Rocuronium Gold Bar (Zemuron) 50 mg STK-MED ONCE .ROUTE ; Start 10/13/16 at 13:27 ; Stop 10/14/16 at 07:31; Status DC Lidocaine HCl 100 mg STK-MED ONCE .ROUTE ; Start 10/13/16 at 13:27; Stop at 07:31; Status DC Fentanyl Citrate (Fentanyl 2ml Vial) 100 mcg STK-MED ONCE .ROUTE ; Start at 13:27; Stop 10/14/16 at 07:31; Status DC Ephedrine Sulfate (Akovaz) 50 mg STK-MED ONCE .ROUTE ; Start 10/13/16 at 14:00; Stop 10/14/16 at 07:31; Status DC Phenylephrine HCl 1 mg STK-MED ONCE IV ; Start 10/13/16 at 14:25; Stop 10/14/16 at 07:31; Status DC Desflurane (Suprane) 60 ml STK-MED ONCE IH ; Start 10/13/16 at 14:25; Stop at 07:31; Status DC Dexamethasone Sodium Phosphate (Decadron) 20 mg STK-MED ONCE .ROUTE ; Start 10/13 at 14:25; Stop 10/14/16 at 07:31; Status DC Ondansetron HCl (Zofran) 4 mg STK-MED ONCE .ROUTE ; Start 10/13/16 at 14:25; Stop 10/14/16 at 07:31; Status DC Famotidine (Pepcid) 20 mg STK-MED ONCE .ROUTE ; Start 10/13/16 at 14:25; Stop 07/21 at 07:31; Status DC Rocuronium Gold Bar (Zemuron) 50 mg STK-MED ONCE .ROUTE ; Start 10/13/16 at 16:19 ; Stop 10/14/16 at 07:31; Status DC Fentanyl Citrate (Fentanyl 2ml Vial) 100 mcg STK-MED ONCE .ROUTE ; Start at 16:21; Stop 10/14/16 at 07:31; Status DC Desflurane (Suprane) 90 ml STK-MED ONCE IH ; Start 10/13/16 at 16:53; Stop at 07:31; Status DC Glycopyrrolate (Robinul) 1 mg STK-MED ONCE .ROUTE ; Start 10/13/16 at 17:00; Stop 10/14/16 at 07:31; Status DC Neostigmine Methylsulfate 5 mg STK-MED ONCE .ROUTE ; Start 10/13/16 at 17:00; Stop 10/14/16 at 07:31; Status DC Phenylephrine HCl 1 mg STK-MED ONCE IV ; Start 10/13/16 at 18:14; Stop 10/14/16 at 07:31; Status DC Fentanyl Citrate (Fentanyl 2ml Vial) 100 mcg STK-MED ONCE .ROUTE ; Start at 18:20; Stop 10/14/16 at 07:31; Status DC Fentanyl Citrate 100 mcg 100 mcg STK-MED ONCE .ROUTE ; Start 10/13/16 at 19:17; Stop 10/14/16 at 07:31; Status DC Levetiracetam 500 mg/Sodium Chloride 105 ml @ 400 mls/hr Q12HR IV Last administered on 10/25/16 09:23; Start 10/14/16 at 09:00 Amino Acids/ Glycerin/ Electrolytes (Procalamine) 1,000 ml @ 80 mls/hr [id number] IV Last administered on 10/16/16 09:16; Start 10/14/16 at 11:15; Stop at 21:59; Status DC Morphine Sulfate 2 mg PRN Q4HRS PRN IV MODERATE PAIN Last administered on 00:57; Start 10/14/16 at 14:15 Morphine Sulfate 4 mg PRN Q4HRS PRN IV SEVERE PAIN Last administered on 09:43; Start 10/14/16 at 14:30 Info 1 each 1 each PRN DAILY PRN MC SEE COMMENTS Last administered on 12:31; Start 10/16/16 at 11:30 Sodium Chloride/ Potassium Chloride/ Potassium Phosphate/ Magnesium Sulfate/ Calcium Gluconate/ Multivitamins/ Minerals/Chromium/ Copper/Manganese/ Seleni/Zn /Total Parenteral Nutrition/Amino Acids/Dextrose/ Fat Emulsion Intravenous ( Sodium Chloride/ Potassium Phospha... 1,512 ml @ 63 mls/hr TPN CONT IV ; Start 10/16/16 at 22:00; Stop 10/17/16 at 12:50; Status DC Lidocaine/Sodium Bicarbonate 20 ml 20 ml STK-MED ONCE IJ ; Start 10/17/16 at 08: 20; Stop 10/17/16 at 08:21; Status DC Heparin Sodium/ Sodium Chloride 500 ml @ As Directed STK-MED ONCE .ROUTE ; Start 10/17/16 at 08:20; Stop 10/17/16 at 08:21; Status DC Lidocaine/Sodium Bicarbonate (Buffered Lidocaine 1%) 3 ml 1X ONCE IJ Last administered on 10/17/16 08:30; Start 10/17/16 at 08:30; Stop 10/17/16 at 08:31 ; Status DC Heparin Sodium/ Sodium Chloride 60 unit 1X ONCE IV Last administered on 08:30; Start 10/17/16 at 08:30; Stop 10/17/16 at 08:31; Status DC Iohexol (Omnipaque 300 Mg/ml) 50 ml STK-MED ONCE .ROUTE ; Start 10/17/16 at 09: 02; Stop 10/17/16 at 09:03; Status DC Iohexol (Omnipaque 300 Mg/ml) 43 ml 1X ONCE IART Last administered on 08:45; Start 10/17/16 at 09:30; Stop 10/17/16 at 09:33; Status DC Info (Do NOT chart on this entry -- for MONITORING) 1 each PRN DAILY PRN MC SEE COMMENTS; Start 10/17/16 at 09:45; Stop 10/19/16 at 09:44; Status DC Clonidine HCl (Catapres Tts-2) 1 patch WEEKLY TD Last administered on 09:12; Start 10/17/16 at 11:00 Labetalol HCl 20 mg 20 mg PRN Q6HRS PRN IVP HYPERTENSION, SEE COMMENTS; Start 10/17/16 at 10:30 Sodium Chloride 1,000 ml @ 60 mls/hr [id number] IV Last administered on 06:32; Start 10/17/16 at 12:30; Stop 10/19/16 at 10:06; Status DC Sodium Chloride 90 meq/Potassium Chloride 50 meq/ Potassium Phosphate 13.6 mmol/ Magnesium Sulfate 10 meq/ Calcium Gluconate 10 meq/ Multivitamins/ Minerals 10 ml/ Chromium/Copper/ Manganese/Seleni/ Zn 1 ml/Total Parenteral Nutrition/Amino Acids/Dextrose/ Fat Emulsion Intravenous 1,512 ml @ 63 mls/hr TPN CONT IV Last administered on 10/17/16 21:09; Start 10/17/16 at 22:00; Stop 10/18/16 at 21:59; Status DC Sodium Chloride/ Potassium Chloride/ Potassium Phosphate/ Magnesium Sulfate/ Calcium Gluconate/ Multivitamins/ Minerals/Chromium/ Copper/Manganese/ Seleni/Zn /Total Parenteral Nutrition/Amino Acids/Dextrose/ Fat Emulsion Intravenous ( Sodium Chloride/ Potassium Phospha... 1,512 ml @ 63 mls/hr TPN CONT IV Last administered on 10/18/16 21:24; Start 10/18/16 at 22:00; Stop 10/19/16 at 21:59 ; Status DC Furosemide 20 mg 20 mg 1X ONCE IVP Last administered on 10/19/16 11:01; Start 10/19/16 at 10:30; Stop 10/19/16 at 10:31; Status DC Sodium Chloride 90 meq/Sodium Acetate 40 meq/ Potassium Chloride 50 meq/ Potassium Phosphate 13.6 mmol/Magnesium Sulfate 10 meq/ Calcium Gluconate 10 meq / Multivitamins/ Minerals 10 ml/ Chromium/Copper/ Manganese/Seleni/ Zn 1 ml/ Total Parenteral Nutrition/Amino Acids/Dextro... 1,920 ml @ 80 mls/hr TPN CONT IV Last administered on 10/19/16 22:29; Start 10/19/16 at 22:00; Stop at 21:59; Status DC Sodium Chloride 1,000 ml @ 45 mls/hr [id number] IV Last administered on 22:24; Start 10/20/16 at 09:00; Stop 10/21/16 at 09:26; Status DC Magnesium Sulfate/ Dextrose 50 ml @ 25 mls/hr PRN DAILY PRN IV for Mag < 1.7 on am labs; Start 10/20/16 at 13:15 Sodium Chloride/ Sodium Acetate/ Potassium Chloride/ Potassium Phosphate/ Magnesium Sulfate/ Calcium Gluconate/ Multivitamins/ Minerals/Chromium/ Copper/ Manganese/ Seleni/Zn/Total Parenteral Nutrition/Amino Acids/Dextrose/ Fat Emulsion Intravenous (Sodium Chloride/ Potass... 1,920 ml @ 80 mls/hr TPN CONT IV Last administered on 10/20/16 22:23; Start 10/20/16 at 22:00; Stop at 21:59; Status DC Acetaminophen/ Hydrocodone Bitart 1 tab 1 tab PRN Q4HRS PRN PO PAIN Last administered on 10/21/16 23:51; Start 10/21/16 at 09:30; Stop 10/22/16 at 10:39 ; Status DC Sodium Chloride/ Sodium Acetate/ Potassium Chloride/ Potassium Phosphate/ Magnesium Sulfate/ Calcium Gluconate/ Multivitamins/ Minerals/Chromium/ Copper/ Manganese/ Seleni/Zn/Total Parenteral Nutrition/Amino Acids/Dextrose/ Fat Emulsion Intravenous (Sodium Chloride/ Potass... 1,920 ml @ 80 mls/hr TPN CONT IV Last administered on 10/21/16 22:22; Start 10/21/16 at 22:00; Stop at 21:59; Status DC Metoclopramide HCl (Reglan) 10 mg 1X ONCE IV Last administered on 10/22/16 01 :56; Start 10/22/16 at 02:00; Stop 10/22/16 at 02:01; Status DC Lorazepam (Ativan) 1 mg 1X ONCE IV Last administered on 10/22/16 02:35; Start 10/22/16 at 02:30; Stop 10/22/16 at 02:31; Status DC Morphine Sulfate 2 mg PRN Q1HR PRN IV PAIN Last administered on 10/25/16 11:32 ; Start 10/22/16 at 02:30 Famotidine (Pepcid) 20 mg 1X ONCE IVP Last administered on 10/22/16 02:35; Start 10/22/16 at 02:30; Stop 10/22/16 at 02:31; Status DC Hydralazine HCl (Apresoline) 10 mg PRN Q6HRS PRN IVP ELEVATED BP, SEE COMMENTS ; Start 10/22/16 at 10:45 Iohexol (Omnipaque 300 Mg/ml) 60 ml 1X ONCE PO Last administered on 10/22/16 11:43; Start 10/22/16 at 11:00; Stop 10/22/16 at 11:01; Status DC Iohexol (Omnipaque 300 Mg/ml) 60 ml 1X ONCE IV Last administered on 10/22/16 11:19; Start 10/22/16 at 11:00; Stop 10/22/16 at 11:01; Status DC Info 1 each 1 each PRN DAILY PRN MC SEE COMMENTS; Start 10/22/16 at 11:00; Stop 10/24/16 at 10:59; Status DC Sodium Chloride 50 meq/Sodium Acetate 80 meq/ Potassium Chloride 50 meq/ Potassium Phosphate 18 mmol/ Magnesium Sulfate 10 meq/Calcium Gluconate 10 meq/ Multivitamins/ Minerals 10 ml/ Chromium/Copper/ Manganese/Seleni/ Zn 1 ml/Total Parenteral Nutrition/Amino Acids/Dextrose/ Fat Emuls... 1,920 ml @ 80 mls/hr TPN CONT IV Last administered on 10/22/16 21:46; Start 10/22/16 at 22:00; Stop 10/23/16 at 21:59; Status DC Levothyroxine Sodium/Sodium Chloride (Synthroid/Iv Sodium Chloride 0.9% 50ml) 5 ml @ 100 mls/hr DAILY IVP Last administered on 10/25/16 09:22; Start 10/23/16 at 14:00 Furosemide (Lasix) 20 mg 1X ONCE IVP Last administered on 10/23/16 12:45; Start 10/23/16 at 12:30; Stop 10/23/16 at 12:31; Status DC Alteplase, Recombinant 2 mg 2 mg 1X ONCE INT CAT Last administered on 12:45; Start 10/23/16 at 12:30; Stop 10/23/16 at 12:31; Status DC Sodium Chloride/ Sodium Acetate/ Potassium Chloride/ Potassium Phosphate/ Magnesium Sulfate/ Calcium Gluconate/ Multivitamins/ Minerals/Chromium/ Copper/ Manganese/ Seleni/Zn/Total Parenteral Nutrition/Amino Acids/Dextrose/ Fat Emulsion Intravenous (Sodium Chloride/ Potass... 1,920 ml @ 80 mls/hr TPN CONT IV Last administered on 10/23/16 21:37; Start 10/23/16 at 22:00; Stop at 21:59; Status DC Acetaminophen 650 mg 650 mg PRN Q6HRS PRN [place] MILD PAIN / TEMP Last administered on 10/23/16 23:09; Start 10/23/16 at 23:00 Potassium Chloride/Dextrose/ Sod Cl 1,000 ml @ 80 mls/hr [id number] IV Last administered on 10/24/16 10:08; Start 10/24/16 at 09:30; Stop 10/24/16 at 13:58 ; Status DC Sodium Chloride 50 meq/Sodium Acetate 80 meq/ Potassium Chloride 50 meq/ Potassium Phosphate 18 mmol/ Magnesium Sulfate 10 meq/Calcium Gluconate 10 meq/ Multivitamins/ Minerals 10 ml/ Chromium/Copper/ Manganese/Seleni/ Zn 1 ml/Total Parenteral Nutrition/Amino Acids/Dextrose/ Fat Emuls... 1,920 ml @ 80 mls/hr TPN CONT IV Last administered on 10/24/16 22:10; Start 10/24/16 at 22:00; Stop 10/25/16 at 21:59 Sodium Chloride (Iv Sodium Chloride 0.45%) 1,000 ml @ 45 mls/hr [id number] IV Last administered on 10/24/16 14:00; Start 10/24/16 at 14:00 Active Scripts Active Hydrocodone-Apap 5-325 (Hydrocodone Bit/Acetaminophen) 1 Each Tablet 1 Tab PO PRN Q6HRS PRN Metoprolol Succinate ( Xl ) (Metoprolol Succinate) 25 Mg Tab.er.24h 25 Mg PO DAILY Reported Flomax (Tamsulosin Hcl) 0.4 Mg Cap.er.24h 1 Cap PO QHS Tramadol Hcl 100 Mg Tab.er.24h 100 Mg PO QID Levetiracetam 250 Mg Tablet 250 Mg PO BID Dulcolax (Bisacodyl) 10 Mg Supp.rect 10 Mg RC PRN DAILY PRN Maalox Advanced Suspension (Mag Hydrox/Al Hydrox/Simeth) 770 Ml Oral.susp 30 Ml PO Q2HR PRN Milk Of Magnesia (Magnesium Hydroxide) 400 Mg/5 Ml Oral.susp 30 Ml PO DAILY PRN Robitussin Cough-Chest Dm Liq (Guaifenesin/Dextromethorphan) 118 Ml Liquid 10 Ml PO Q4HRS PRN Trazodone Hcl 50 Mg Tablet 1 Tab PO QHS Tylenol (Acetaminophen) 325 Mg Tablet 650 Mg PO Q6HRS PRN Pramipexole Dihydrochloride (Pramipexole Di-Hcl) 0.5 Mg Tablet 0.5 Mg PO TID Simvastatin 20 Mg Tablet 1 Tab PO QHS Levothyroxine Sodium 100 Mcg Tablet 1 Tab PO DAILY Gabapentin 800 Mg Tablet 800 Mg PO QID Sinemet 25-100 Mg Tablet (Carbidopa/Levodopa) 1 Each Tablet 2 Tab PO TID Aspirin 81 Mg Tab.chew 1 Tab PO DAILY Vitals/I & O Vital Sign - Last 24 Hours 10/24/16 10/24/16 10/24/16 10/24/16 13:50 15:00 19:15 21:45 Temp 98.0 97.9 98.0 97.9 Pulse 121 110 Resp B/P 139/74 106/44 Pulse Ox 92 88 O2 Delivery Nasal Cannula Nasal Cannula Nasal Cannula Nasal Cannula O2 Flow Rate 3.5 3.5 3.5 3.5 10/24/16 10/24/16 10/24/16 10/25/16 22:09 22:40 23:35 01:20 Temp 98.2 98.2 Pulse 105 Resp B/P 126/54 Pulse Ox 90 90 90 90 O2 Delivery Nasal Cannula Nasal Cannula Nasal Cannula O2 Flow Rate 3.5 3.5 3.5 10/25/16 10/25/16 10/25/16 10/25/16 02:42 03:05 04:58 05:27 Temp 98.0 98.0 Pulse 89 Resp B/P 104/49 Pulse Ox 90 90 O2 Delivery Nasal Cannula Nasal Cannula Nasal Cannula Nasal Cannula O2 Flow Rate 3.5 3.5 3.5 3.5 10/25/16 10/25/16 10/25/16 10/25/16 07:00 08:00 09:43 11:32 Temp 98.6 98.6 Pulse 90 Resp B/P 151/67 Pulse Ox 89 O2 Delivery Nasal Cannula Nasal Cannula Nasal Cannula O2 Flow Rate 3.5 2.0 2.0 2.0 Intake and Output 10/24/16 10/24/16 10/25/16 15:00 23:00 07:00 Intake Total 200 ml 1469 ml Output Total 300 ml 625 ml Balance -300 ml 200 ml 844 ml RICHARD [place] MD Oct 25, 2016 11:53
[2016-10-25] MEDS ORDERED: ALBUTEROL SULFATE 2.5 MG/3 ML NEBU. NEB PRN (12:00)
[2016-10-25] MEDS: TPN PER PHARMACY MC PRN (13:03)
[2016-10-25 15:00] VITALS: BP 133/57
--- NOTE | 2016-10-25 16:02 | PDOC2 ---
Pulmonary Consultation RE: hypoxemia HPI: Mr Hayes is an 86 yo male who was admitted to [facility] with abd pain secondary to SBO, and underwent exp lap 10/13, with adhesiolysis. His post operative course has been complicated by a prolonged ileus. He has had a slow increase in his O2 requirement, and noted to have course BS. Imaging studies revealed an increase infiltrate in the LL, and pulm was consulted to assist with his Dyspnea. he is seen this evening tachypneic, with noted coarse BS. He is afebrile, and has a normal wbc. he notes + dysphagia and choking on fluids. + persistent tremors secondary to his parkinsons. 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 Ventral abdominal hernia repair and release of small-bowel obstruction in 2008 appendectomy in 1995, lumbar laminectomy in 2006. orchiectomy in 2006 Medications Current Medications Fentanyl Citrate 50 mcg 50 mcg PRN Q15MIN PRN IV PAIN GREATER THAN 3/10 Last administered on 09/30/16at 19:35; Start 09/30/16 at 17:30; Stop 10/01/16 at 04 :24; Status DC Lactated Ringer's (Iv Lactated Ringers) 1,000 ml @ 100 mls/hr Q10H IV Last administered on 09/30/16at 19:35; Start 09/30/16 at 17:28; Stop 10/01/16 at 03 :27; Status DC Ondansetron HCl (Zofran) 4 mg 1X ONCE IV Last administered on 09/30/16at 17:44 ; Start 09/30/16 at 17:30; Stop 09/30/16 at 17:32; Status DC Fentanyl Citrate (Fentanyl 2ml Vial) 50 mcg 1X ONCE IV ; Start 09/30/16 at 19: 15; Stop 10/01/16 at 04:24; Status DC Ondansetron HCl (Zofran) 4 mg PRN Q8HRS PRN IV NAUSEA/VOMITING Last administered on 09/30/16at 22:07; Start 09/30/16 at 19:15; Stop 10/01/16 at 19 :14; Status DC Fentanyl Citrate 50 mcg 50 mcg PRN Q2HR PRN IV PAIN Last administered on at 16:54; Start 09/30/16 at 19:15; Stop 10/01/16 at 19:14; Status DC Sodium Chloride 1,000 ml @ 100 mls/hr Q10H IV ; Start 09/30/16 at 19:30; Stop 10/01/16 at 04:24; Status DC Potassium Chloride/Dextrose/ Sod Cl (KCl 20 Meq In D5W-1/2 NS) 1,000 ml @ 125 mls/hr Q8H IV Last administered on 10/04/16at 06:02; Start 09/30/16 at 20:00; Stop 10/04/16 at 10:21; Status DC Enoxaparin Sodium 40 mg 40 mg Q24H SQ Last administered on 10/13/16 08:14; Start 10/01/16 at 09:00; Stop 10/13/16 at 08:36; Status DC Levetiracetam/ Sodium Chloride (Keppra/Iv Sodium Chloride 0.9% 100ml) 105 ml @ 400 mls/hr Q12HR IV Last administered on 10/05/16 09:30; Start 09/30/16 at 21: 00; Stop 10/05/16 at 10:24; Status DC Morphine Sulfate 2 mg PRN Q4HRS PRN IV SEVERE PAIN Last administered on 10:13; Start 09/30/16 at 19:30; Stop 10/05/16 at 10:24; Status DC Acetaminophen (Tylenol) 650 mg PRN Q6HRS PRN CO MILD PAIN / TEMP; Start at 19:30; Stop 10/05/16 at 10:24; Status DC Ondansetron HCl (Zofran) 4 mg PRN Q6HRS PRN IV NAUSEA/VOMITING Last administered on 10/07/16 08:28; Start 09/30/16 at 19:30; Stop 10/09/16 at 12:08 ; Status DC Benzocaine (Hurricaine One) 1 spray STK-MED ONCE .ROUTE ; Start 09/30/16 at 19: 51; Stop 09/30/16 at 19:52; Status DC Morphine Sulfate 4 mg PRN Q4HRS PRN IV PAIN Last administered on 10/05/16 08:08 ; Start 10/01/16 at 20:00; Stop 10/05/16 at 10:24; Status DC Clonidine HCl 1 patch 1 patch WEEKLY TD Last administered on 10/03/16at 12:30; Start 10/03/16 at 10:00; Stop 10/05/16 at 10:24; Status DC Piperacillin Sod/ Tazobactam Sod/ Sodium Chloride (Zosyn/Iv Sodium Chloride 0.9 % 50ml) 50 ml @ 100 mls/hr Q6HRS IV Last administered on 10/09/16 06:26; Start 10/04/16 at 11:00; Stop 10/09/16 at 10:55; Status DC Vancomycin HCl 1 each 1 each PRN DAILY PRN MC SEE COMMENTS Last administered on 10/07/16 11:11; Start 10/04/16 at 10:15; Stop 10/07/16 at 11:28; Status DC Vancomycin HCl/ Sodium Chloride (Iv Sodium Chloride 0.9% 250ml) 250 ml @ 250 mls/hr Q24H IV ; Start 10/04/16 at 10:15; Status UNV Labetalol HCl (Normodyne) 20 mg PRN Q6HRS PRN IVP HYPERTENSION, SEE COMMENTS; Start 10/04/16 at 10:15; Stop 10/05/16 at 10:24; Status DC Hydralazine HCl 10 mg 10 mg PRN Q6HRS PRN IVP ELEVATED BP, SEE COMMENTS Last administered on 10/06/16 19:17; Start 10/04/16 at 10:15; Stop 10/12/16 at 10:40 ; Status DC Amino Acids/ Glycerin/ Electrolytes 1,000 ml @ 40 mls/hr Q24H IV Last administered on 10/06/16 09:59; Start 10/04/16 at 10:15; Stop 10/07/16 at 09:06 ; Status DC Vancomycin HCl 2 gm/Sodium Chloride 500 ml @ 250 mls/hr 1X ONCE IV Last administered on 10/04/16at 11:26; Start 10/04/16 at 10:45; Stop 10/04/16 at 12 :44; Status DC Vancomycin HCl/ Sodium Chloride (Iv Sodium Chloride 0.9% 500ml Bag) 500 ml @ 250 mls/hr Q24H IV Last administered on 10/06/16 11:47; Start 10/05/16 at 12:00 ; Stop 10/07/16 at 11:28; Status DC Vancomycin HCl 1 each 1X ONCE MC Last administered on 10/06/16 11:30; Start at 11:30; Stop 10/06/16 at 11:31; Status DC Aspirin (Children'S Aspirin) 81 mg [id number] PO Last administered on 10/13/16 08:15; Start 10/05/16 at 11:00; Stop 10/13/16 at 08:29; Status DC Gabapentin (Neurontin) 600 mg QID PO Last administered on 10/13/16 08:14; Start 10/05/16 at 13:00; Stop 10/14/16 at 08:47; Status DC Levetiracetam (Keppra) 250 mg BID PO Last administered on 10/13/16 08:17; Start 10/05/16 at 11:00; Stop 10/14/16 at 08:47; Status DC Levothyroxine Sodium (Synthroid) 100 mcg [id number] PO Last administered on 05:08; Start 10/05/16 at 10:30; Stop 10/14/16 at 08:48; Status DC Metoprolol Succinate (Toprol Xl) 25 mg DAILY PO Last administered on 10/13/16 08:16; Start 10/05/16 at 11:00; Stop 10/14/16 at 08:47; Status DC Pramipexole Dihydrochloride (miraPEX) 0.5 mg [id number] PO Last administered on 10/13 08:15; Start 10/05/16 at 11:00; Stop 10/14/16 at 08:48; Status DC Simvastatin (Zocor) 20 mg HS PO Last administered on 10/12/16 21:07; Start 10/05 at 21:00; Stop 10/14/16 at 08:48; Status DC Carbidopa/Levodopa (Sinemet Cr) 1 tab.sa TID PO Last administered on 10/13/16 08:16; Start 10/05/16 at 11:00; Stop 10/14/16 at 08:48; Status DC Tamsulosin HCl (Flomax) 0.4 mg QHS PO Last administered on 10/12/16 21:07; Start 10/05/16 at 21:00; Stop 10/14/16 at 08:48; Status DC Tramadol HCl (Ultram) 50 mg QID PO Last administered on 10/13/16 08:17; Start 10/05/16 at 13:00; Stop 10/14/16 at 08:48; Status DC Acetaminophen (Tylenol) 650 mg PRN Q4HRS PRN PO MILD PAIN / TEMP Last administered on 10/13/16 00:17; Start 10/05/16 at 10:15; Stop 10/14/16 at 08:48; Status DC Prednisone (Prednisone) 20 mg 1X ONCE PO Last administered on 10/06/16 11:01; Start 10/06/16 at 10:30; Stop 10/06/16 at 10:31; Status DC Prednisone (Prednisone) 10 mg DAILY08 PO Last administered on 10/13/16 08:15; Start 10/07/16 at 08:00; Stop 10/13/16 at 08:29; Status DC Al Hydroxide/Mg Hydroxide (Mylanta Plus Xs) 30 ml PRN Q4HRS PRN PO HEARTBURN / GAS Last administered on 10/12/16 21:07; Start 10/07/16 at 08:45; Stop 10/14/16 at 08:48; Status DC Pantoprazole Sodium (Protonix) 40 mg DAILYAC PO Last administered on 10/13/16 05:08; Start 10/07/16 at 10:00; Stop 10/13/16 at 06:45; Status DC Furosemide 40 mg 40 mg DAILY PO Last administered on 10/08/16 08:42; Start 10/07 at 10:00; Stop 10/08/16 at 08:56; Status DC Sodium Chloride (Iv Sodium Chloride 0.45%) 1,000 ml @ 60 mls/hr CONT PRN IV . ; Start 10/08/16 at 09:00; Stop 10/08/16 at 16:06; Status DC Bisacodyl 10 mg 10 mg 1X ONCE CO Last administered on 10/08/16 10:11; Start at 09:30; Stop 10/08/16 at 09:31; Status DC Sodium Chloride (Iv Sodium Chloride 0.45%) 1,000 ml @ 60 mls/hr [id number] IV Last administered on 10/09/16 02:52; Start 10/08/16 at 10:15; Stop 10/09/16 at 12: 00; Status DC Cefpodoxime Proxetil (Vantin) 200 mg BID PO ; Start 10/09/16 at 11:00; Stop at 12:08; Status DC Cefpodoxime Proxetil (Vantin) 100 mg BID PO Last administered on 10/13/16 08:16 ; Start 10/09/16 at 21:00; Stop 10/13/16 at 08:29; Status DC Ondansetron HCl (Zofran) 4 mg STK-MED ONCE .ROUTE Last administered on 01:24; Start 10/13/16 at 01:19; Stop 10/13/16 at 01:20; Status DC Ondansetron HCl (Zofran) 4 mg PRN Q6HRS PRN IV NAUSEA/VOMITING Last administered on 10/25/16 00:38; Start 10/13/16 at 02:00 Pantoprazole Sodium 40 mg 40 mg DAILYAC IVP Last administered on 10/25/16 09: 21; Start 10/13/16 at 07:30 Dextrose/Sodium Chloride (Iv D5% - NS) 1,000 ml @ 60 mls/hr [id number] IV Last administered on 10/13/16 09:25; Start 10/13/16 at 08:30; Stop 10/13/16 at 11:01; Status DC Sodium Polystyrene Sulfonate 15 gm 15 gm 1X ONCE PO Last administered on 09:26; Start 10/13/16 at 08:30; Stop 10/13/16 at 08:31; Status DC Piperacillin Sod/ Tazobactam Sod 3.375 gm/Sodium Chloride 50 ml @ 100 mls/hr Q6HRS IV Last administered on 10/19/16 12:42; Start 10/13/16 at 09:00; Stop at 15:06; Status DC Dextrose/Sodium Chloride (Iv D5% - 1/2 NS) 1,000 ml @ 50 mls/hr Q20H IV Last administered on 10/17/16 00:16; Start 10/13/16 at 11:00; Stop 10/17/16 at 12:23 ; Status DC Ondansetron HCl (Zofran) 4 mg PRN Q6HRS PRN IV Nausea 1ST CHOICE; Start at 12:30; Stop 10/14/16 at 11:07; Status DC Fentanyl Citrate (Fentanyl 2ml Vial) 25 mcg PRN Q5MIN PRN IV MILD PAIN; Start 10/13/16 at 12:30; Stop 10/14/16 at 11:04; Status DC Fentanyl Citrate (Fentanyl 2ml Vial) 50 mcg PRN Q5MIN PRN IV MODERATE PAIN; Start 10/13/16 at 12:30; Stop 10/14/16 at 11:04; Status DC Morphine Sulfate 1 mg 1 mg PRN Q10MIN PRN IV SEVERE PAIN; Start 10/13/16 at 12: 30; Stop 10/14/16 at 11:00; Status DC Lactated Ringer's (Iv Lactated Ringers) 1,000 ml @ 0 mls/hr Q0M IV ; Start 10/13 at 12:17; Stop 10/14/16 at 00:16; Status DC Lidocaine HCl 2 ml 1X PRN PRN ID IV START; Start 10/13/16 at 12:30; Stop at 16:03; Status DC Hydromorphone HCl (Dilaudid) 0.5 mg PRN Q10MIN PRN IV SEV PAIN,Second choice; Start 10/13/16 at 12:30; Stop 10/14/16 at 11:04; Status DC Prochlorperazine Edisylate (Compazine) 5 mg PACU PRN PRN IV NAUSEA; Start at 12:30; Stop 10/14/16 at 11:00; Status DC Fentanyl Citrate (Fentanyl 2ml Vial) 50 mcg PRN Q5MIN PRN IV Acute Pain Last administered on 10/14/16t 10:04; Start 10/13/16 at 13:00; Stop 10/14/16 at 11:04 ; Status DC Morphine Sulfate 4 mg PRN Q10MIN PRN IV Moderate Pain; Start 10/13/16 at 13:00; Stop 10/14/16 at 11:00; Status DC Hydromorphone HCl (Dilaudid) 0.4 mg PRN Q10MIN PRN IV Moderate to severe pain; Start 10/13/16 at 13:00; Stop 10/14/16 at 11:04; Status DC Meperidine HCl (Demerol) 12.5 mg PRN Q5MIN PRN IV SHIVERING; Start 10/13/16 at 13:00; Stop 10/14/16 at 11:00; Status DC Prochlorperazine Edisylate (Compazine) 5 mg PRN Q6HRS PRN IV Nausea/Vomiting, 1st Choice; Start 10/13/16 at 13:00; Stop 10/14/16 at 11:00; Status DC Diphenhydramine HCl (Benadryl) 12.5 mg PRN Q2HR PRN IV ITCHING; Start 10/13/16 at 13:00; Stop 10/14/16 at 11:00; Status DC Midazolam HCl (Versed) 2 mg PRN 1X PRN IV PRIOR TO PROCEDURE; Start 10/13/16 at 13:00; Stop 10/14/16 at 11:07; Status DC Midazolam HCl (Versed) 1 mg PRN 1X PRN IV PRIOR TO PROCEDURE; Start 10/13/16 at 13:00; Stop 10/14/16 at 11:07; Status DC Fentanyl Citrate (Fentanyl 2ml Vial) 25 mcg PRN Q5MIN PRN IV X 2 DOSES FOR PAIN ; Start 10/13/16 at 13:00; Stop 10/14/16 at 11:04; Status DC Fentanyl Citrate 50 mcg 50 mcg PRN Q5MIN PRN IV X 2 DOSES FOR PAIN; Start at 13:00; Stop 10/14/16 at 11:04; Status DC Lactated Ringer's (Iv Lactated Ringers) 1,000 ml @ 125 mls/hr Q8H IV Last administered on 10/13/16t 13:30; Start 10/13/16 at 12:48; Stop 10/14/16 at 00:47; Status DC Lidocaine HCl 2 ml 1X PRN PRN ID IV START; Start 10/13/16 at 13:00; Stop at 16:03; Status DC Fentanyl Citrate (Fentanyl 2ml Vial) 25 mcg PRN Q2HR PRN IV PAIN MOD TO SEV; Start 10/13/16 at 20:30; Stop 10/14/16 at 14:15; Status DC Fentanyl Citrate (Fentanyl 2ml Vial) 50 mcg PRN Q2HR PRN IV PAIN MOD TO SEV Last administered on 10/14/16t 12:02; Start 10/13/16 at 20:30; Stop 10/14/16 at 14:15; Status DC Enoxaparin Sodium (Lovenox 40mg Syringe) 40 mg Q24H SQ Last administered on 09:21; Start 10/14/16 at 09:00 Fentanyl Citrate 100 mcg 100 mcg STK-MED ONCE .ROUTE ; Start 10/13/16 at 13:27; Stop 10/14/16 at 07:31; Status DC Propofol (Diprivan) 20 ml @ As Directed STK-MED ONCE IV ; Start 10/13/16 at 13:27 ; Stop 10/14/16 at 07:31; Status DC Rocuronium Hamilton (Zemuron) 50 mg STK-MED ONCE .ROUTE ; Start 10/13/16 at 13:27 ; Stop 10/14/16 at 07:31; Status DC Lidocaine HCl 100 mg STK-MED ONCE .ROUTE ; Start 10/13/16 at 13:27; Stop at 07:31; Status DC Fentanyl Citrate (Fentanyl 2ml Vial) 100 mcg STK-MED ONCE .ROUTE ; Start at 13:27; Stop 10/14/16 at 07:31; Status DC Ephedrine Sulfate (Akovaz) 50 mg STK-MED ONCE .ROUTE ; Start 10/13/16 at 14:00; Stop 10/14/16 at 07:31; Status DC Phenylephrine HCl 1 mg STK-MED ONCE IV ; Start 10/13/16 at 14:25; Stop 10/14/16 at 07:31; Status DC Desflurane (Suprane) 60 ml STK-MED ONCE IH ; Start 10/13/16 at 14:25; Stop at 07:31; Status DC Dexamethasone Sodium Phosphate (Decadron) 20 mg STK-MED ONCE .ROUTE ; Start 10/13 at 14:25; Stop 10/14/16 at 07:31; Status DC Ondansetron HCl (Zofran) 4 mg STK-MED ONCE .ROUTE ; Start 10/13/16 at 14:25; Stop 10/14/16 at 07:31; Status DC Famotidine (Pepcid) 20 mg STK-MED ONCE .ROUTE ; Start 10/13/16 at 14:25; Stop 07/21 at 07:31; Status DC Rocuronium Hamilton (Zemuron) 50 mg STK-MED ONCE .ROUTE ; Start 10/13/16 at 16:19 ; Stop 10/14/16 at 07:31; Status DC Fentanyl Citrate (Fentanyl 2ml Vial) 100 mcg STK-MED ONCE .ROUTE ; Start at 16:21; Stop 10/14/16 at 07:31; Status DC Desflurane (Suprane) 90 ml STK-MED ONCE IH ; Start 10/13/16 at 16:53; Stop at 07:31; Status DC Glycopyrrolate (Robinul) 1 mg STK-MED ONCE .ROUTE ; Start 10/13/16 at 17:00; Stop 10/14/16 at 07:31; Status DC Neostigmine Methylsulfate 5 mg STK-MED ONCE .ROUTE ; Start 10/13/16 at 17:00; Stop 10/14/16 at 07:31; Status DC Phenylephrine HCl 1 mg STK-MED ONCE IV ; Start 10/13/16 at 18:14; Stop 10/14/16 at 07:31; Status DC Fentanyl Citrate (Fentanyl 2ml Vial) 100 mcg STK-MED ONCE .ROUTE ; Start at 18:20; Stop 10/14/16 at 07:31; Status DC Fentanyl Citrate 100 mcg 100 mcg STK-MED ONCE .ROUTE ; Start 10/13/16 at 19:17; Stop 10/14/16 at 07:31; Status DC Levetiracetam 500 mg/Sodium Chloride 105 ml @ 400 mls/hr Q12HR IV Last administered on 10/25/16t 09:23; Start 10/14/16 at 09:00 Amino Acids/ Glycerin/ Electrolytes (Procalamine) 1,000 ml @ 80 mls/hr [id number] IV Last administered on 10/16/16 09:16; Start 10/14/16 at 11:15; Stop at 21:59; Status DC Morphine Sulfate 2 mg PRN Q4HRS PRN IV MODERATE PAIN Last administered on 00:57; Start 10/14/16 at 14:15 Morphine Sulfate 4 mg PRN Q4HRS PRN IV SEVERE PAIN Last administered on 13:49; Start 10/14/16 at 14:30 Info 1 each 1 each PRN DAILY PRN MC SEE COMMENTS Last administered on 13:03; Start 10/16/16 at 11:30 Sodium Chloride/ Potassium Chloride/ Potassium Phosphate/ Magnesium Sulfate/ Calcium Gluconate/ Multivitamins/ Minerals/Chromium/ Copper/Manganese/ Seleni/Zn /Total Parenteral Nutrition/Amino Acids/Dextrose/ Fat Emulsion Intravenous ( Sodium Chloride/ Potassium Phospha... 1,512 ml @ 63 mls/hr TPN CONT IV ; Start 10/16/16 at 22:00; Stop 10/17/16 at 12:50; Status DC Lidocaine/Sodium Bicarbonate 20 ml 20 ml STK-MED ONCE IJ ; Start 10/17/16 at 08: 20; Stop 10/17/16 at 08:21; Status DC Heparin Sodium/ Sodium Chloride 500 ml @ As Directed STK-MED ONCE .ROUTE ; Start 10/17/16 at 08:20; Stop 10/17/16 at 08:21; Status DC Lidocaine/Sodium Bicarbonate (Buffered Lidocaine 1%) 3 ml 1X ONCE IJ Last administered on 10/17/16 08:30; Start 10/17/16 at 08:30; Stop 10/17/16 at 08:31 ; Status DC Heparin Sodium/ Sodium Chloride 60 unit 1X ONCE IV Last administered on 08:30; Start 10/17/16 at 08:30; Stop 10/17/16 at 08:31; Status DC Iohexol (Omnipaque 300 Mg/ml) 50 ml STK-MED ONCE .ROUTE ; Start 10/17/16 at 09: 02; Stop 10/17/16 at 09:03; Status DC Iohexol (Omnipaque 300 Mg/ml) 43 ml 1X ONCE IART Last administered on 08:45; Start 10/17/16 at 09:30; Stop 10/17/16 at 09:33; Status DC Info (Do NOT chart on this entry -- for MONITORING) 1 each PRN DAILY PRN MC SEE COMMENTS; Start 10/17/16 at 09:45; Stop 10/19/16 at 09:44; Status DC Clonidine HCl (Catapres Tts-2) 1 patch WEEKLY TD Last administered on 09:12; Start 10/17/16 at 11:00 Labetalol HCl 20 mg 20 mg PRN Q6HRS PRN IVP HYPERTENSION, SEE COMMENTS; Start 10/17/16 at 10:30 Sodium Chloride 1,000 ml @ 60 mls/hr [id number] IV Last administered on 06:32; Start 10/17/16 at 12:30; Stop 10/19/16 at 10:06; Status DC Sodium Chloride 90 meq/Potassium Chloride 50 meq/ Potassium Phosphate 13.6 mmol/ Magnesium Sulfate 10 meq/ Calcium Gluconate 10 meq/ Multivitamins/ Minerals 10 ml/ Chromium/Copper/ Manganese/Seleni/ Zn 1 ml/Total Parenteral Nutrition/Amino Acids/Dextrose/ Fat Emulsion Intravenous 1,512 ml @ 63 mls/hr TPN CONT IV Last administered on 10/17/16 21:09; Start 10/17/16 at 22:00; Stop 10/18/16 at 21:59; Status DC Sodium Chloride/ Potassium Chloride/ Potassium Phosphate/ Magnesium Sulfate/ Calcium Gluconate/ Multivitamins/ Minerals/Chromium/ Copper/Manganese/ Seleni/Zn /Total Parenteral Nutrition/Amino Acids/Dextrose/ Fat Emulsion Intravenous ( Sodium Chloride/ Potassium Phospha... 1,512 ml @ 63 mls/hr TPN CONT IV Last administered on 10/18/16 21:24; Start 10/18/16 at 22:00; Stop 10/19/16 at 21:59 ; Status DC Furosemide 20 mg 20 mg 1X ONCE IVP Last administered on 10/19/16 11:01; Start 10/19/16 at 10:30; Stop 10/19/16 at 10:31; Status DC Sodium Chloride 90 meq/Sodium Acetate 40 meq/ Potassium Chloride 50 meq/ Potassium Phosphate 13.6 mmol/Magnesium Sulfate 10 meq/ Calcium Gluconate 10 meq / Multivitamins/ Minerals 10 ml/ Chromium/Copper/ Manganese/Seleni/ Zn 1 ml/ Total Parenteral Nutrition/Amino Acids/Dextro... 1,920 ml @ 80 mls/hr TPN CONT IV Last administered on 10/19/16 22:29; Start 10/19/16 at 22:00; Stop at 21:59; Status DC Sodium Chloride 1,000 ml @ 45 mls/hr [id number] IV Last administered on 22:24; Start 10/20/16 at 09:00; Stop 10/21/16 at 09:26; Status DC Magnesium Sulfate/ Dextrose 50 ml @ 25 mls/hr PRN DAILY PRN IV for Mag < 1.7 on am labs; Start 10/20/16 at 13:15 Sodium Chloride/ Sodium Acetate/ Potassium Chloride/ Potassium Phosphate/ Magnesium Sulfate/ Calcium Gluconate/ Multivitamins/ Minerals/Chromium/ Copper/ Manganese/ Seleni/Zn/Total Parenteral Nutrition/Amino Acids/Dextrose/ Fat Emulsion Intravenous (Sodium Chloride/ Potass... 1,920 ml @ 80 mls/hr TPN CONT IV Last administered on 10/20/16 22:23; Start 10/20/16 at 22:00; Stop at 21:59; Status DC Acetaminophen/ Hydrocodone Bitart 1 tab 1 tab PRN Q4HRS PRN PO PAIN Last administered on 10/21/16 23:51; Start 10/21/16 at 09:30; Stop 10/22/16 at 10:39 ; Status DC Sodium Chloride/ Sodium Acetate/ Potassium Chloride/ Potassium Phosphate/ Magnesium Sulfate/ Calcium Gluconate/ Multivitamins/ Minerals/Chromium/ Copper/ Manganese/ Seleni/Zn/Total Parenteral Nutrition/Amino Acids/Dextrose/ Fat Emulsion Intravenous (Sodium Chloride/ Potass... 1,920 ml @ 80 mls/hr TPN CONT IV Last administered on 10/21/16 22:22; Start 10/21/16 at 22:00; Stop at 21:59; Status DC Metoclopramide HCl (Reglan) 10 mg 1X ONCE IV Last administered on 10/22/16 01 :56; Start 10/22/16 at 02:00; Stop 10/22/16 at 02:01; Status DC Lorazepam (Ativan) 1 mg 1X ONCE IV Last administered on 10/22/16 02:35; Start 10/22/16 at 02:30; Stop 10/22/16 at 02:31; Status DC Morphine Sulfate 2 mg PRN Q1HR PRN IV PAIN Last administered on 10/25/16 15:58 ; Start 10/22/16 at 02:30 Famotidine (Pepcid) 20 mg 1X ONCE IVP Last administered on 10/22/16 02:35; Start 10/22/16 at 02:30; Stop 10/22/16 at 02:31; Status DC Hydralazine HCl (Apresoline) 10 mg PRN Q6HRS PRN IVP ELEVATED BP, SEE COMMENTS ; Start 10/22/16 at 10:45 Iohexol (Omnipaque 300 Mg/ml) 60 ml 1X ONCE PO Last administered on 10/22/16 11:43; Start 10/22/16 at 11:00; Stop 10/22/16 at 11:01; Status DC Iohexol (Omnipaque 300 Mg/ml) 60 ml 1X ONCE IV Last administered on 10/22/16 11:19; Start 10/22/16 at 11:00; Stop 10/22/16 at 11:01; Status DC Info 1 each 1 each PRN DAILY PRN MC SEE COMMENTS; Start 10/22/16 at 11:00; Stop 10/24/16 at 10:59; Status DC Sodium Chloride 50 meq/Sodium Acetate 80 meq/ Potassium Chloride 50 meq/ Potassium Phosphate 18 mmol/ Magnesium Sulfate 10 meq/Calcium Gluconate 10 meq/ Multivitamins/ Minerals 10 ml/ Chromium/Copper/ Manganese/Seleni/ Zn 1 ml/Total Parenteral Nutrition/Amino Acids/Dextrose/ Fat Emuls... 1,920 ml @ 80 mls/hr TPN CONT IV Last administered on 10/22/16 21:46; Start 10/22/16 at 22:00; Stop 10/23/16 at 21:59; Status DC Levothyroxine Sodium/Sodium Chloride (Synthroid/Iv Sodium Chloride 0.9% 50ml) 5 ml @ 100 mls/hr DAILY IVP Last administered on 10/25/16 09:22; Start 10/23/16 at 14:00 Furosemide (Lasix) 20 mg 1X ONCE IVP Last administered on 10/23/16 12:45; Start 10/23/16 at 12:30; Stop 10/23/16 at 12:31; Status DC Alteplase, Recombinant 2 mg 2 mg 1X ONCE INT CAT Last administered on 12:45; Start 10/23/16 at 12:30; Stop 10/23/16 at 12:31; Status DC Sodium Chloride/ Sodium Acetate/ Potassium Chloride/ Potassium Phosphate/ Magnesium Sulfate/ Calcium Gluconate/ Multivitamins/ Minerals/Chromium/ Copper/ Manganese/ Seleni/Zn/Total Parenteral Nutrition/Amino Acids/Dextrose/ Fat Emulsion Intravenous (Sodium Chloride/ Potass... 1,920 ml @ 80 mls/hr TPN CONT IV Last administered on 10/23/16 21:37; Start 10/23/16 at 22:00; Stop at 21:59; Status DC Acetaminophen 650 mg 650 mg PRN Q6HRS PRN CO MILD PAIN / TEMP Last administered on 10/23/16 23:09; Start 10/23/16 at 23:00 Potassium Chloride/Dextrose/ Sod Cl 1,000 ml @ 80 mls/hr [id number] IV Last administered on 10/24/16 10:08; Start 10/24/16 at 09:30; Stop 10/24/16 at 13:58 ; Status DC Sodium Chloride 50 meq/Sodium Acetate 80 meq/ Potassium Chloride 50 meq/ Potassium Phosphate 18 mmol/ Magnesium Sulfate 10 meq/Calcium Gluconate 10 meq/ Multivitamins/ Minerals 10 ml/ Chromium/Copper/ Manganese/Seleni/ Zn 1 ml/Total Parenteral Nutrition/Amino Acids/Dextrose/ Fat Emuls... 1,920 ml @ 80 mls/hr TPN CONT IV Last administered on 10/24/16 22:10; Start 10/24/16 at 22:00; Stop 10/25/16 at 21:59 Sodium Chloride (Iv Sodium Chloride 0.45%) 1,000 ml @ 45 mls/hr [id number] IV Last administered on 10/24/16 14:00; Start 10/24/16 at 14:00; Stop 10/25/16 at 11:47; Status DC Albuterol/ Ipratropium (Duoneb) 3 ml RTQID NEB ; Start 10/25/16 at 12:00 Albuterol Sulfate (Ventolin Neb Soln) 2.5 mg PRN Q4HRS PRN NEB SOA; Start 10/25 at 12:00 Furosemide 40 mg 40 mg 1X ONCE IVP Last administered on 10/25/16t 13:49; Start 10/25/16 at 11:45; Stop 10/25/16 at 11:53; Status DC Sodium Chloride/ Sodium Acetate/ Potassium Chloride/ Potassium Phosphate/ Magnesium Sulfate/ Calcium Gluconate/ Multivitamins/ Minerals/Chromium/ Copper/ Manganese/ Seleni/Zn/Total Parenteral Nutrition/Amino Acids/Dextrose/ Fat Emulsion Intravenous (Sodium Chloride/ Potass... 1,920 ml @ 80 mls/hr TPN CONT IV ; Start 10/25/16 at 22:00; Stop 10/26/16 at 21:59 Active Scripts Active Hydrocodone-Apap 5-325 (Hydrocodone Bit/Acetaminophen) 1 Each Tablet 1 Tab PO PRN Q6HRS PRN Metoprolol Succinate ( Xl ) (Metoprolol Succinate) 25 Mg Tab.er.24h 25 Mg PO DAILY Reported Flomax (Tamsulosin Hcl) 0.4 Mg Cap.er.24h 1 Cap PO QHS Tramadol Hcl 100 Mg Tab.er.24h 100 Mg PO QID Levetiracetam 250 Mg Tablet 250 Mg PO BID Dulcolax (Bisacodyl) 10 Mg Supp.rect 10 Mg RC PRN DAILY PRN Maalox Advanced Suspension (Mag Hydrox/Al Hydrox/Simeth) 770 Ml Oral.susp 30 Ml PO Q2HR PRN Milk Of Magnesia (Magnesium Hydroxide) 400 Mg/5 Ml Oral.susp 30 Ml PO DAILY PRN Robitussin Cough-Chest Dm Liq (Guaifenesin/Dextromethorphan) 118 Ml Liquid 10 Ml PO Q4HRS PRN Trazodone Hcl 50 Mg Tablet 1 Tab PO QHS Tylenol (Acetaminophen) 325 Mg Tablet 650 Mg PO Q6HRS PRN Pramipexole Dihydrochloride (Pramipexole Di-Hcl) 0.5 Mg Tablet 0.5 Mg PO TID Simvastatin 20 Mg Tablet 1 Tab PO QHS Levothyroxine Sodium 100 Mcg Tablet 1 Tab PO DAILY Gabapentin 800 Mg Tablet 800 Mg PO QID Sinemet 25-100 Mg Tablet (Carbidopa/Levodopa) 1 Each Tablet 2 Tab PO TID Aspirin 81 Mg Tab.chew 1 Tab PO DAILY Allergies Allergies Coded Allergies Type Severity Reaction Last Updated Verified ciprofloxacin Allergy Intermediate 10/13/16 Yes nitroglycerin Allergy Intermediate 10/13/16 Yes paroxetine Allergy Intermediate 10/13/16 Yes I S O L A T I O N *CONTACT* Allergy Unknown 10/13/16 Yes Social History SOCIAL HISTORY: Lives in assisted living facility, uses a walker, does not drink alcohol nor does he smoke cigarettes. Family History FAMILY HISTORY: Noncontributory. System Review Constitutional: Denies fever or chills. Eyes: Denies redness, irritation, erythema, drainage, or eye pain. HEENT: Denies nasal congestion or sore throat. Respiratory: + cough, shortness of breath, + difficulty breathing. Cardiovascular: Denies edema, or color change with feeding. GI: + abdominal pain, + flatulence, No vomiting, bloody stools, diarrhea Musculoskeletal: Denies back pain or joint pain. Integument: Denies rash or skin lesions. Neurologic: Denies neurologic changes. Vital Signs Vital Signs Date Time Temp Pulse Resp B/P Pulse Ox O2 Delivery O2 Flow Rate FiO2 10/25/16 15:58 22 Nasal Cannula 2.0 10/25/16 13:49 89 10/25/16 07:00 98.6 90 151/67 98.6 Last Labs Laboratory Tests Test 10/25/16 05:50 Sodium Level 135mmol/L (136-145) Potassium Level 4.6mmol/L (3.5-5.1) Chloride Level 103mmol/L (98-107) Carbon Dioxide Level 26mmol/L (21-32) Anion Gap 6 (6-14) Blood Urea Nitrogen 30mg/dL (8-26) Creatinine 1.5mg/dL (0.7-1.3) Estimated GFR (Cockcroft-Gault) 44.5 Glucose Level 152mg/dL (70-99) Calcium Level 7.9mg/dL (8.5-10.1) Phosphorus Level 3.2mg/dL (2.6-4.7) Magnesium Level 2.1mg/dL (1.8-2.4) Albumin 1.6g/dL (3.4-5.0) Exam Comments Constitutional: Well developed, well nourished, mild distress HENT: Normocephalic, atraumatic, bilateral external ears normal Eyes: PERRLA, EOMI, conjunctiva normal, no discharge. Neck: Normal range of motion, no tenderness, supple, no stridor. Cardiovascular:Heart rate regular rhythm, no murmur Lungs & Thorax: + coarse BS BL, + accessory muscle use Abdomen: Bowel sounds normal, soft, no tenderness, no masses, no pulsatile masses. Skin: Warm, dry, no erythema, no rash. Extremities: No tenderness, no cyanosis, no clubbing, ROM intact, + edema. Neurologic: Alert and oriented X 3, normal motor function, normal sensory function, no focal deficits noted. Psychologic: Affect normal, judgement normal, mood normal. Other Imaging 10/25/16 CXR: Comparison is made yesterday study. The patient is rotated to the left. The right PICC extends into the inferior aspect of the superior vena cava. There is a tube overlying the medial aspect of left upper arm which may represent an additional venous catheter. Clinical correlation is suggested. Spinal stimulator leads are projected over the lower thoracic spinal canal. The heart is at the upper limits of normal in size. The pulmonary vascularity is normal. There is a moderate-sized hiatal hernia. There is mild linear atelectasis in the right base. There is moderate atelectasis/infiltrate in the left base. IMPRESSION: 1. The right PICC is in satisfactory position. 2. Moderate left basilar atelectasis/infiltrate. Assessment - Acute Hypoxemic Respiratory Failure - LLL lung infiltrate - Small-bowel obstruction s/p exploratory laparotomy 10/13/16. - post op ileus - critical illness myopathy - Chronic kidney disease stage III - Seizure disorder. - Parkinson's disease. - Hypothyroidism. - Peripheral neuropathy. - Hypertension. - paroxysmal atrial fibrillation Plan Plan of Care - Afebrile, with no WBC - Encourage IS; Pulmonary clearance; may need EzPAP - suspect CXR is atelectatic changes. - NTS prn if needed - May need BIPAP, and monitor closely - Lasix tonight - Monitor I/Os: and would continue gentle diuresis - If Febrile, or WBC increases would start Abx therapy; Check Procalcitonin - continue TPN - Passing flatulence and continue to facilitate BM's - GI ppx - dvt ppx ROSEANN PETERSON MD Oct 25, 2016 16:02
[2016-10-25] MEDS: IPRATRPIUM/ALBUTEROL 0.5/2.5MG 3 ML NEBU. NEB SCH ×2 (16:30→19:49)
[2016-10-25] MEDS ORDERED: FUROSEMIDE 20 MG/2 ML VIAL IVP ONE (16:45)
[2016-10-25] MEDS ORDERED: ALBUMIN HUMAN 25% 100 ML IV ONE (16:45)
[2016-10-25 19:05] VITALS: BP 108/52
[2016-10-25] MEDS ORDERED: AMINO ACIDS IV SCH ×11 (22:00)
[2016-10-25] MEDS ORDERED: DEXTROSE 70% IV SCH ×11 (22:00)
[2016-10-25] MEDS ORDERED: [UNRECOGNIZED DRUG - OTHER] IV SCH ×11 (22:00)
[2016-10-25] MEDS ORDERED: TOTAL PARENTERAL NUTRITION IV SCH ×11 (22:00)
[2016-10-25 23:14] VITALS: BP 91/44
[2016-10-26] MEDS: MORPHINE SULFATE 2 MG/ML DISP.SYRIN. IV PRN (02:09)
[2016-10-26 03:05] VITALS: BP 99/47
[2016-10-26 06:37] LABS: ALBUMIN 1.8 g/dL (3.4-5.0); CALCIUM 7.6 mg/dL (8.5-10.1); CREATININE 1.6 mg/dL (0.7-1.3); GFR 41.3; PHOSPHORUS 3.7 mg/dL (2.6-4.7); POTASSIUM 4.5 mmol/L (3.5-5.1)
[2016-10-26 07:00] VITALS: BP 105/46
[2016-10-26] MEDS: IPRATRPIUM/ALBUTEROL 0.5/2.5MG 3 ML NEBU. NEB SCH ×4 (07:04→20:03)
--- NOTE | 2016-10-26 07:40 | RAD ---
Abdomen, 2 views, 10/25/2016: History: Follow-up bowel distention Comparison is made to a study from 10/24/2016. An NG tube is not visible. A stimulator device remains in place with leads extending in the lower thoracic spinal canal. An inferior vena cava filter is in place. The lower pelvis was not completely included on the current exam. Gas is present in large and small bowel in a nonspecific pattern. No free air seen in the abdomen. There is ongoing atelectasis/infiltrate in the left base as noted on the current chest radiograph. IMPRESSION: No acute abdominal abnormality is detected.
[2016-10-26] MEDS: PANTOPRAZOLE IV PUSH 40 MG VIAL. IVP SCH (09:16)
[2016-10-26] MEDS: MORPHINE SULFATE 4 MG/ML DISP.SYRIN. IV PRN ×3 (09:18→17:54)
[2016-10-26] MEDS: ENOXAPARIN 40 MG/0.4 ML DISP.SYRIN. SQ SCH (09:18)
[2016-10-26] MEDS: LEVOTHYROXINE SODIUM 50 MCG in IV NORMAL SALINE 50ML 5 ML IVP SCH (09:19)
[2016-10-26] MEDS: LEVETIRACETAM 500 MG in IV NORMAL SALINE 100ML 100 ML IV SCH ×2 (09:19→22:02)
[2016-10-26] MEDS: BISACODYL 10 MG SUPP.RECT PR ONE (10:00)
--- NOTE | 2016-10-26 10:00 | PDOC ---
PROGRESS NOTES Subjective Subjective cough with yellow sputum and now has a fever. has gurgling in throat due to difficulty clearing secretions in throat. will obtain blood and urine culture and sputum cultures and chest x ray and consult dr. vik lees and start iv zyvox and zosyn. has not hada BM and KUB negative will order a dulcolax suppository. blood pressure is low and will start iv fluids and d/c and remove catapress patch. Objective Objective Vital Signs Date Time Temp Pulse Resp B/P Pulse Ox O2 Delivery O2 Flow Rate FiO2 10/26/16 09:18 Nasal Cannula 5.0 10/26/16 07:05 91 10/26/16 07:00 100.4 109 20 105/46 100.4 Intake and Output 10/26/16 07:00 Intake Total 1070 ml Output Total 1300 ml Balance -230 ml IV Total 1070 ml Output Urine Total 1300 ml Assessment Assessment Problems Medical Problems:Small-bowel obstruction resolved exploratory laparotomy 10/13/16. lysis of adhesions. bowel viable. post op ileus. prolonged 2. Seizure disorder. 3. Parkinson's disease. 4. Hypothyroidism. 5. Peripheral neuropathy. 6. Hypertension. bp low 7. Chronic kidney disease stage III. klebsiella uti treated suspected gout synovitis resolved peripheral edema critical illness myopathy hematemesis once resolved paroxysmal atrial fibrillation. not a good candidate for anticoagulants fever LLL lung infiltrate hypotensioni (1) SBO (small bowel obstruction) Status: Acute Plan Plan of Care blood and urine and sputum cultures cxr start iv zyvox and zosyn consult dr. vik lees iv fluids continue TPN d/c catapress patch dulcolax suppository today continue iv protonix and iv keprra and iv levothyroxine lovenox for dvt prophlaxis Comment Review of Relevant I have reviewed the following items [place] (where applicable) has been applied. Labs Laboratory Tests Test 10/25/16 05:50 10/26/16 06:00 Sodium Level 135mmol/L (136-145) 141mmol/L (136-145) Potassium Level 4.6mmol/L (3.5-5.1) 4.5mmol/L (3.5-5.1) Chloride Level 103mmol/L (98-107) 105mmol/L (98-107) Carbon Dioxide Level 26mmol/L (21-32) 28mmol/L (21-32) Anion Gap 6 (6-14) 8 (6-14) Blood Urea Nitrogen 30mg/dL (8-26) 37mg/dL (8-26) Creatinine 1.5mg/dL (0.7-1.3) 1.6mg/dL (0.7-1.3) Estimated GFR (Cockcroft-Gault) 44.5 41.3 Glucose Level 152mg/dL (70-99) 123mg/dL (70-99) Calcium Level 7.9mg/dL (8.5-10.1) 7.6mg/dL (8.5-10.1) Phosphorus Level 3.2mg/dL (2.6-4.7) 3.7mg/dL (2.6-4.7) Magnesium Level 2.1mg/dL (1.8-2.4) Albumin 1.6g/dL (3.4-5.0) 1.8g/dL (3.4-5.0) Laboratory Tests Test 10/26/16 06:00 Sodium Level 141mmol/L (136-145) Potassium Level 4.5mmol/L (3.5-5.1) Chloride Level 105mmol/L (98-107) Carbon Dioxide Level 28mmol/L (21-32) Anion Gap 8 (6-14) Blood Urea Nitrogen 37mg/dL (8-26) Creatinine 1.6mg/dL (0.7-1.3) Estimated GFR (Cockcroft-Gault) 41.3 Glucose Level 123mg/dL (70-99) Calcium Level 7.6mg/dL (8.5-10.1) Phosphorus Level 3.7mg/dL (2.6-4.7) Albumin 1.8g/dL (3.4-5.0) Microbiology 10/13/16 Blood Culture - Final, Complete NO GROWTH AFTER 5 DAYS 10/13/16 Urine Culture - Final, Complete 10/13/16 Urine Culture Result 1 (MANDEEP) - Final, Complete Medications Current Medications Fentanyl Citrate 50 mcg 50 mcg PRN Q15MIN PRN IV PAIN GREATER THAN 3/10 Last administered on 09/30/16at 19:35; Start 09/30/16 at 17:30; Stop 10/01/16 at 04 :24; Status DC Lactated Ringer's (Iv Lactated Ringers) 1,000 ml @ 100 mls/hr Q10H IV Last administered on 09/30/16at 19:35; Start 09/30/16 at 17:28; Stop 10/01/16 at 03 :27; Status DC Ondansetron HCl (Zofran) 4 mg 1X ONCE IV Last administered on 09/30/16at 17:44 ; Start 09/30/16 at 17:30; Stop 09/30/16 at 17:32; Status DC Fentanyl Citrate (Fentanyl 2ml Vial) 50 mcg 1X ONCE IV ; Start 09/30/16 at 19: 15; Stop 10/01/16 at 04:24; Status DC Ondansetron HCl (Zofran) 4 mg PRN Q8HRS PRN IV NAUSEA/VOMITING Last administered on 09/30/16at 22:07; Start 09/30/16 at 19:15; Stop 10/01/16 at 19 :14; Status DC Fentanyl Citrate 50 mcg 50 mcg PRN Q2HR PRN IV PAIN Last administered on at 16:54; Start 09/30/16 at 19:15; Stop 10/01/16 at 19:14; Status DC Sodium Chloride 1,000 ml @ 100 mls/hr Q10H IV ; Start 09/30/16 at 19:30; Stop 10/01/16 at 04:24; Status DC Potassium Chloride/Dextrose/ Sod Cl (KCl 20 Meq In D5W-1/2 NS) 1,000 ml @ 125 mls/hr Q8H IV Last administered on 10/04/16at 06:02; Start 09/30/16 at 20:00; Stop 10/04/16 at 10:21; Status DC Enoxaparin Sodium 40 mg 40 mg Q24H SQ Last administered on 10/13/16 08:14; Start 10/01/16 at 09:00; Stop 10/13/16 at 08:36; Status DC Levetiracetam/ Sodium Chloride (Keppra/Iv Sodium Chloride 0.9% 100ml) 105 ml @ 400 mls/hr Q12HR IV Last administered on 10/05/16 09:30; Start 09/30/16 at 21: 00; Stop 10/05/16 at 10:24; Status DC Morphine Sulfate 2 mg PRN Q4HRS PRN IV SEVERE PAIN Last administered on 10:13; Start 09/30/16 at 19:30; Stop 10/05/16 at 10:24; Status DC Acetaminophen (Tylenol) 650 mg PRN Q6HRS PRN [place] MILD PAIN / TEMP; Start at 19:30; Stop 10/05/16 at 10:24; Status DC Ondansetron HCl (Zofran) 4 mg PRN Q6HRS PRN IV NAUSEA/VOMITING Last administered on 10/07/16 08:28; Start 09/30/16 at 19:30; Stop 10/09/16 at 12:08 ; Status DC Benzocaine (Hurricaine One) 1 spray STK-MED ONCE .ROUTE ; Start 09/30/16 at 19: 51; Stop 09/30/16 at 19:52; Status DC Morphine Sulfate 4 mg PRN Q4HRS PRN IV PAIN Last administered on 10/05/16 08:08 ; Start 10/01/16 at 20:00; Stop 10/05/16 at 10:24; Status DC Clonidine HCl 1 patch 1 patch WEEKLY TD Last administered on 10/03/16at 12:30; Start 10/03/16 at 10:00; Stop 10/05/16 at 10:24; Status DC Piperacillin Sod/ Tazobactam Sod/ Sodium Chloride (Zosyn/Iv Sodium Chloride 0.9 % 50ml) 50 ml @ 100 mls/hr Q6HRS IV Last administered on 10/09/16 06:26; Start 10/04/16 at 11:00; Stop 10/09/16 at 10:55; Status DC Vancomycin HCl 1 each 1 each PRN DAILY PRN MC SEE COMMENTS Last administered on 10/07/16 11:11; Start 10/04/16 at 10:15; Stop 10/07/16 at 11:28; Status DC Vancomycin HCl/ Sodium Chloride (Iv Sodium Chloride 0.9% 250ml) 250 ml @ 250 mls/hr Q24H IV ; Start 10/04/16 at 10:15; Status UNV Labetalol HCl (Normodyne) 20 mg PRN Q6HRS PRN IVP HYPERTENSION, SEE COMMENTS; Start 10/04/16 at 10:15; Stop 10/05/16 at 10:24; Status DC Hydralazine HCl 10 mg 10 mg PRN Q6HRS PRN IVP ELEVATED BP, SEE COMMENTS Last administered on 10/06/16 19:17; Start 10/04/16 at 10:15; Stop 10/12/16 at 10:40 ; Status DC Amino Acids/ Glycerin/ Electrolytes 1,000 ml @ 40 mls/hr Q24H IV Last administered on 10/06/16 09:59; Start 10/04/16 at 10:15; Stop 10/07/16 at 09:06 ; Status DC Vancomycin HCl 2 gm/Sodium Chloride 500 ml @ 250 mls/hr 1X ONCE IV Last administered on 10/04/16at 11:26; Start 10/04/16 at 10:45; Stop 10/04/16 at 12 :44; Status DC Vancomycin HCl/ Sodium Chloride (Iv Sodium Chloride 0.9% 500ml Bag) 500 ml @ 250 mls/hr Q24H IV Last administered on 10/06/16 11:47; Start 10/05/16 at 12:00 ; Stop 10/07/16 at 11:28; Status DC Vancomycin HCl 1 each 1X ONCE MC Last administered on 10/06/16 11:30; Start at 11:30; Stop 10/06/16 at 11:31; Status DC Aspirin (Children'S Aspirin) 81 mg [id number] PO Last administered on 10/13/16 08:15; Start 10/05/16 at 11:00; Stop 10/13/16 at 08:29; Status DC Gabapentin (Neurontin) 600 mg QID PO Last administered on 10/13/16 08:14; Start 10/05/16 at 13:00; Stop 10/14/16 at 08:47; Status DC Levetiracetam (Keppra) 250 mg BID PO Last administered on 10/13/16 08:17; Start 10/05/16 at 11:00; Stop 10/14/16 at 08:47; Status DC Levothyroxine Sodium (Synthroid) 100 mcg DAILY07 PO Last administered on 05:08; Start 10/05/16 at 10:30; Stop 10/14/16 at 08:48; Status DC Metoprolol Succinate (Toprol Xl) 25 mg DAILY PO Last administered on 10/13/16 08:16; Start 10/05/16 at 11:00; Stop 10/14/16 at 08:47; Status DC Pramipexole Dihydrochloride (miraPEX) 0.5 mg [id number] PO Last administered on 10/13 08:15; Start 10/05/16 at 11:00; Stop 10/14/16 at 08:48; Status DC Simvastatin (Zocor) 20 mg HS PO Last administered on 10/12/16 21:07; Start 10/05 at 21:00; Stop 10/14/16 at 08:48; Status DC Carbidopa/Levodopa (Sinemet Cr) 1 tab.sa TID PO Last administered on 10/13/16 08:16; Start 10/05/16 at 11:00; Stop 10/14/16 at 08:48; Status DC Tamsulosin HCl (Flomax) 0.4 mg QHS PO Last administered on 10/12/16 21:07; Start 10/05/16 at 21:00; Stop 10/14/16 at 08:48; Status DC Tramadol HCl (Ultram) 50 mg QID PO Last administered on 10/13/16 08:17; Start 10/05/16 at 13:00; Stop 10/14/16 at 08:48; Status DC Acetaminophen (Tylenol) 650 mg PRN Q4HRS PRN PO MILD PAIN / TEMP Last administered on 10/13/16 00:17; Start 10/05/16 at 10:15; Stop 10/14/16 at 08:48; Status DC Prednisone (Prednisone) 20 mg 1X ONCE PO Last administered on 10/06/16 11:01; Start 10/06/16 at 10:30; Stop 10/06/16 at 10:31; Status DC Prednisone (Prednisone) 10 mg DAILY08 PO Last administered on 10/13/16 08:15; Start 10/07/16 at 08:00; Stop 10/13/16 at 08:29; Status DC Al Hydroxide/Mg Hydroxide (Mylanta Plus Xs) 30 ml PRN Q4HRS PRN PO HEARTBURN / GAS Last administered on 10/12/16 21:07; Start 10/07/16 at 08:45; Stop 10/14/16 at 08:48; Status DC Pantoprazole Sodium (Protonix) 40 mg DAILYAC PO Last administered on 10/13/16 05:08; Start 10/07/16 at 10:00; Stop 10/13/16 at 06:45; Status DC Furosemide 40 mg 40 mg DAILY PO Last administered on 10/08/16 08:42; Start 10/07 at 10:00; Stop 10/08/16 at 08:56; Status DC Sodium Chloride (Iv Sodium Chloride 0.45%) 1,000 ml @ 60 mls/hr CONT PRN IV . ; Start 10/08/16 at 09:00; Stop 10/08/16 at 16:06; Status DC Bisacodyl 10 mg 10 mg 1X ONCE [place] Last administered on 10/08/16 10:11; Start at 09:30; Stop 10/08/16 at 09:31; Status DC Sodium Chloride (Iv Sodium Chloride 0.45%) 1,000 ml @ 60 mls/hr [id number] IV Last administered on 10/09/16 02:52; Start 10/08/16 at 10:15; Stop 10/09/16 at 12: 00; Status DC Cefpodoxime Proxetil (Vantin) 200 mg BID PO ; Start 10/09/16 at 11:00; Stop at 12:08; Status DC Cefpodoxime Proxetil (Vantin) 100 mg BID PO Last administered on 10/13/16 08:16 ; Start 10/09/16 at 21:00; Stop 10/13/16 at 08:29; Status DC Ondansetron HCl (Zofran) 4 mg STK-MED ONCE .ROUTE Last administered on 01:24; Start 10/13/16 at 01:19; Stop 10/13/16 at 01:20; Status DC Ondansetron HCl (Zofran) 4 mg PRN Q6HRS PRN IV NAUSEA/VOMITING Last administered on 10/25/16 00:38; Start 10/13/16 at 02:00 Pantoprazole Sodium 40 mg 40 mg DAILYAC IVP Last administered on 10/26/16 09: 16; Start 10/13/16 at 07:30 Dextrose/Sodium Chloride (Iv D5% - NS) 1,000 ml @ 60 mls/hr [id number] IV Last administered on 10/13/16 09:25; Start 10/13/16 at 08:30; Stop 10/13/16 at 11:01; Status DC Sodium Polystyrene Sulfonate 15 gm 15 gm 1X ONCE PO Last administered on 09:26; Start 10/13/16 at 08:30; Stop 10/13/16 at 08:31; Status DC Piperacillin Sod/ Tazobactam Sod 3.375 gm/Sodium Chloride 50 ml @ 100 mls/hr Q6HRS IV Last administered on 10/19/16 12:42; Start 10/13/16 at 09:00; Stop at 15:06; Status DC Dextrose/Sodium Chloride (Iv D5% - 1/2 NS) 1,000 ml @ 50 mls/hr Q20H IV Last administered on 10/17/16 00:16; Start 10/13/16 at 11:00; Stop 10/17/16 at 12:23 ; Status DC Ondansetron HCl (Zofran) 4 mg PRN Q6HRS PRN IV Nausea 1ST CHOICE; Start at 12:30; Stop 10/14/16 at 11:07; Status DC Fentanyl Citrate (Fentanyl 2ml Vial) 25 mcg PRN Q5MIN PRN IV MILD PAIN; Start 10/13/16 at 12:30; Stop 10/14/16 at 11:04; Status DC Fentanyl Citrate (Fentanyl 2ml Vial) 50 mcg PRN Q5MIN PRN IV MODERATE PAIN; Start 10/13/16 at 12:30; Stop 10/14/16 at 11:04; Status DC Morphine Sulfate 1 mg 1 mg PRN Q10MIN PRN IV SEVERE PAIN; Start 10/13/16 at 12: 30; Stop 10/14/16 at 11:00; Status DC Lactated Ringer's (Iv Lactated Ringers) 1,000 ml @ 0 mls/hr Q0M IV ; Start 10/13 at 12:17; Stop 10/14/16 at 00:16; Status DC Lidocaine HCl 2 ml 1X PRN PRN ID IV START; Start 10/13/16 at 12:30; Stop at 16:03; Status DC Hydromorphone HCl (Dilaudid) 0.5 mg PRN Q10MIN PRN IV SEV PAIN,Second choice; Start 10/13/16 at 12:30; Stop 10/14/16 at 11:04; Status DC Prochlorperazine Edisylate (Compazine) 5 mg PACU PRN PRN IV NAUSEA; Start at 12:30; Stop 10/14/16 at 11:00; Status DC Fentanyl Citrate (Fentanyl 2ml Vial) 50 mcg PRN Q5MIN PRN IV Acute Pain Last administered on 10/14/16t 10:04; Start 10/13/16 at 13:00; Stop 10/14/16 at 11:04 ; Status DC Morphine Sulfate 4 mg PRN Q10MIN PRN IV Moderate Pain; Start 10/13/16 at 13:00; Stop 10/14/16 at 11:00; Status DC Hydromorphone HCl (Dilaudid) 0.4 mg PRN Q10MIN PRN IV Moderate to severe pain; Start 10/13/16 at 13:00; Stop 10/14/16 at 11:04; Status DC Meperidine HCl (Demerol) 12.5 mg PRN Q5MIN PRN IV SHIVERING; Start 10/13/16 at 13:00; Stop 10/14/16 at 11:00; Status DC Prochlorperazine Edisylate (Compazine) 5 mg PRN Q6HRS PRN IV Nausea/Vomiting, 1st Choice; Start 10/13/16 at 13:00; Stop 10/14/16 at 11:00; Status DC Diphenhydramine HCl (Benadryl) 12.5 mg PRN Q2HR PRN IV ITCHING; Start 10/13/16 at 13:00; Stop 10/14/16 at 11:00; Status DC Midazolam HCl (Versed) 2 mg PRN 1X PRN IV PRIOR TO PROCEDURE; Start 10/13/16 at 13:00; Stop 10/14/16 at 11:07; Status DC Midazolam HCl (Versed) 1 mg PRN 1X PRN IV PRIOR TO PROCEDURE; Start 10/13/16 at 13:00; Stop 10/14/16 at 11:07; Status DC Fentanyl Citrate (Fentanyl 2ml Vial) 25 mcg PRN Q5MIN PRN IV X 2 DOSES FOR PAIN ; Start 10/13/16 at 13:00; Stop 10/14/16 at 11:04; Status DC Fentanyl Citrate 50 mcg 50 mcg PRN Q5MIN PRN IV X 2 DOSES FOR PAIN; Start at 13:00; Stop 10/14/16 at 11:04; Status DC Lactated Ringer's (Iv Lactated Ringers) 1,000 ml @ 125 mls/hr Q8H IV Last administered on 10/13/16 13:30; Start 10/13/16 at 12:48; Stop 10/14/16 at 00:47; Status DC Lidocaine HCl 2 ml 1X PRN PRN ID IV START; Start 10/13/16 at 13:00; Stop at 16:03; Status DC Fentanyl Citrate (Fentanyl 2ml Vial) 25 mcg PRN Q2HR PRN IV PAIN MOD TO SEV; Start 10/13/16 at 20:30; Stop 10/14/16 at 14:15; Status DC Fentanyl Citrate (Fentanyl 2ml Vial) 50 mcg PRN Q2HR PRN IV PAIN MOD TO SEV Last administered on 10/14/16 12:02; Start 10/13/16 at 20:30; Stop 10/14/16 at 14:15; Status DC Enoxaparin Sodium (Lovenox 40mg Syringe) 40 mg Q24H SQ Last administered on 09:18; Start 10/14/16 at 09:00 Fentanyl Citrate 100 mcg 100 mcg STK-MED ONCE .ROUTE ; Start 10/13/16 at 13:27; Stop 10/14/16 at 07:31; Status DC Propofol (Diprivan) 20 ml @ As Directed STK-MED ONCE IV ; Start 10/13/16 at 13:27 ; Stop 10/14/16 at 07:31; Status DC Rocuronium [place] (Zemuron) 50 mg STK-MED ONCE .ROUTE ; Start 10/13/16 at 13:27 ; Stop 10/14/16 at 07:31; Status DC Lidocaine HCl 100 mg STK-MED ONCE .ROUTE ; Start 10/13/16 at 13:27; Stop at 07:31; Status DC Fentanyl Citrate (Fentanyl 2ml Vial) 100 mcg STK-MED ONCE .ROUTE ; Start at 13:27; Stop 10/14/16 at 07:31; Status DC Ephedrine Sulfate (Akovaz) 50 mg STK-MED ONCE .ROUTE ; Start 10/13/16 at 14:00; Stop 10/14/16 at 07:31; Status DC Phenylephrine HCl 1 mg STK-MED ONCE IV ; Start 10/13/16 at 14:25; Stop 10/14/16 at 07:31; Status DC Desflurane (Suprane) 60 ml STK-MED ONCE IH ; Start 10/13/16 at 14:25; Stop at 07:31; Status DC Dexamethasone Sodium Phosphate (Decadron) 20 mg STK-MED ONCE .ROUTE ; Start 10/13 at 14:25; Stop 10/14/16 at 07:31; Status DC Ondansetron HCl (Zofran) 4 mg STK-MED ONCE .ROUTE ; Start 10/13/16 at 14:25; Stop 10/14/16 at 07:31; Status DC Famotidine (Pepcid) 20 mg STK-MED ONCE .ROUTE ; Start 10/13/16 at 14:25; Stop 07/21 at 07:31; Status DC Rocuronium [place] (Zemuron) 50 mg STK-MED ONCE .ROUTE ; Start 10/13/16 at 16:19 ; Stop 10/14/16 at 07:31; Status DC Fentanyl Citrate (Fentanyl 2ml Vial) 100 mcg STK-MED ONCE .ROUTE ; Start at 16:21; Stop 10/14/16 at 07:31; Status DC Desflurane (Suprane) 90 ml STK-MED ONCE IH ; Start 10/13/16 at 16:53; Stop at 07:31; Status DC Glycopyrrolate (Robinul) 1 mg STK-MED ONCE .ROUTE ; Start 10/13/16 at 17:00; Stop 10/14/16 at 07:31; Status DC Neostigmine Methylsulfate 5 mg STK-MED ONCE .ROUTE ; Start 10/13/16 at 17:00; Stop 10/14/16 at 07:31; Status DC Phenylephrine HCl 1 mg STK-MED ONCE IV ; Start 10/13/16 at 18:14; Stop 10/14/16 at 07:31; Status DC Fentanyl Citrate (Fentanyl 2ml Vial) 100 mcg STK-MED ONCE .ROUTE ; Start at 18:20; Stop 10/14/16 at 07:31; Status DC Fentanyl Citrate 100 mcg 100 mcg STK-MED ONCE .ROUTE ; Start 10/13/16 at 19:17; Stop 10/14/16 at 07:31; Status DC Levetiracetam 500 mg/Sodium Chloride 105 ml @ 400 mls/hr Q12HR IV Last administered on 10/26/16 09:19; Start 10/14/16 at 09:00 Amino Acids/ Glycerin/ Electrolytes (Procalamine) 1,000 ml @ 80 mls/hr [id number] IV Last administered on 10/16/16 09:16; Start 10/14/16 at 11:15; Stop at 21:59; Status DC Morphine Sulfate 2 mg PRN Q4HRS PRN IV MODERATE PAIN Last administered on 00:57; Start 10/14/16 at 14:15 Morphine Sulfate 4 mg PRN Q4HRS PRN IV SEVERE PAIN Last administered on 09:18; Start 10/14/16 at 14:30 Info 1 each 1 each PRN DAILY PRN MC SEE COMMENTS Last administered on 13:03; Start 10/16/16 at 11:30 Sodium Chloride/ Potassium Chloride/ Potassium Phosphate/ Magnesium Sulfate/ Calcium Gluconate/ Multivitamins/ Minerals/Chromium/ Copper/Manganese/ Seleni/Zn /Total Parenteral Nutrition/Amino Acids/Dextrose/ Fat Emulsion Intravenous ( Sodium Chloride/ Potassium Phospha... 1,512 ml @ 63 mls/hr TPN CONT IV ; Start 10/16/16 at 22:00; Stop 10/17/16 at 12:50; Status DC Lidocaine/Sodium Bicarbonate 20 ml 20 ml STK-MED ONCE IJ ; Start 10/17/16 at 08: 20; Stop 10/17/16 at 08:21; Status DC Heparin Sodium/ Sodium Chloride 500 ml @ As Directed STK-MED ONCE .ROUTE ; Start 10/17/16 at 08:20; Stop 10/17/16 at 08:21; Status DC Lidocaine/Sodium Bicarbonate (Buffered Lidocaine 1%) 3 ml 1X ONCE IJ Last administered on 10/17/16 08:30; Start 10/17/16 at 08:30; Stop 10/17/16 at 08:31 ; Status DC Heparin Sodium/ Sodium Chloride 60 unit 1X ONCE IV Last administered on 08:30; Start 10/17/16 at 08:30; Stop 10/17/16 at 08:31; Status DC Iohexol (Omnipaque 300 Mg/ml) 50 ml STK-MED ONCE .ROUTE ; Start 10/17/16 at 09: 02; Stop 10/17/16 at 09:03; Status DC Iohexol (Omnipaque 300 Mg/ml) 43 ml 1X ONCE IART Last administered on 08:45; Start 10/17/16 at 09:30; Stop 10/17/16 at 09:33; Status DC Info (Do NOT chart on this entry -- for MONITORING) 1 each PRN DAILY PRN MC SEE COMMENTS; Start 10/17/16 at 09:45; Stop 10/19/16 at 09:44; Status DC Clonidine HCl (Catapres Tts-2) 1 patch WEEKLY TD Last administered on 09:12; Start 10/17/16 at 11:00 Labetalol HCl 20 mg 20 mg PRN Q6HRS PRN IVP HYPERTENSION, SEE COMMENTS; Start 10/17/16 at 10:30 Sodium Chloride 1,000 ml @ 60 mls/hr [id number] IV Last administered on 06:32; Start 10/17/16 at 12:30; Stop 10/19/16 at 10:06; Status DC Sodium Chloride 90 meq/Potassium Chloride 50 meq/ Potassium Phosphate 13.6 mmol/ Magnesium Sulfate 10 meq/ Calcium Gluconate 10 meq/ Multivitamins/ Minerals 10 ml/ Chromium/Copper/ Manganese/Seleni/ Zn 1 ml/Total Parenteral Nutrition/Amino Acids/Dextrose/ Fat Emulsion Intravenous 1,512 ml @ 63 mls/hr TPN CONT IV Last administered on 10/17/16 21:09; Start 10/17/16 at 22:00; Stop 10/18/16 at 21:59; Status DC Sodium Chloride/ Potassium Chloride/ Potassium Phosphate/ Magnesium Sulfate/ Calcium Gluconate/ Multivitamins/ Minerals/Chromium/ Copper/Manganese/ Seleni/Zn /Total Parenteral Nutrition/Amino Acids/Dextrose/ Fat Emulsion Intravenous ( Sodium Chloride/ Potassium Phospha... 1,512 ml @ 63 mls/hr TPN CONT IV Last administered on 10/18/16 21:24; Start 10/18/16 at 22:00; Stop 10/19/16 at 21:59 ; Status DC Furosemide 20 mg 20 mg 1X ONCE IVP Last administered on 10/19/16 11:01; Start 10/19/16 at 10:30; Stop 10/19/16 at 10:31; Status DC Sodium Chloride 90 meq/Sodium Acetate 40 meq/ Potassium Chloride 50 meq/ Potassium Phosphate 13.6 mmol/Magnesium Sulfate 10 meq/ Calcium Gluconate 10 meq / Multivitamins/ Minerals 10 ml/ Chromium/Copper/ Manganese/Seleni/ Zn 1 ml/ Total Parenteral Nutrition/Amino Acids/Dextro... 1,920 ml @ 80 mls/hr TPN CONT IV Last administered on 10/19/16 22:29; Start 10/19/16 at 22:00; Stop at 21:59; Status DC Sodium Chloride 1,000 ml @ 45 mls/hr [id number] IV Last administered on 22:24; Start 10/20/16 at 09:00; Stop 10/21/16 at 09:26; Status DC Magnesium Sulfate/ Dextrose 50 ml @ 25 mls/hr PRN DAILY PRN IV for Mag < 1.7 on am labs; Start 10/20/16 at 13:15 Sodium Chloride/ Sodium Acetate/ Potassium Chloride/ Potassium Phosphate/ Magnesium Sulfate/ Calcium Gluconate/ Multivitamins/ Minerals/Chromium/ Copper/ Manganese/ Seleni/Zn/Total Parenteral Nutrition/Amino Acids/Dextrose/ Fat Emulsion Intravenous (Sodium Chloride/ Potass... 1,920 ml @ 80 mls/hr TPN CONT IV Last administered on 10/20/16 22:23; Start 10/20/16 at 22:00; Stop at 21:59; Status DC Acetaminophen/ Hydrocodone Bitart 1 tab 1 tab PRN Q4HRS PRN PO PAIN Last administered on 10/21/16 23:51; Start 10/21/16 at 09:30; Stop 10/22/16 at 10:39 ; Status DC Sodium Chloride/ Sodium Acetate/ Potassium Chloride/ Potassium Phosphate/ Magnesium Sulfate/ Calcium Gluconate/ Multivitamins/ Minerals/Chromium/ Copper/ Manganese/ Seleni/Zn/Total Parenteral Nutrition/Amino Acids/Dextrose/ Fat Emulsion Intravenous (Sodium Chloride/ Potass... 1,920 ml @ 80 mls/hr TPN CONT IV Last administered on 10/21/16 22:22; Start 10/21/16 at 22:00; Stop at 21:59; Status DC Metoclopramide HCl (Reglan) 10 mg 1X ONCE IV Last administered on 10/22/16 01 :56; Start 10/22/16 at 02:00; Stop 10/22/16 at 02:01; Status DC Lorazepam (Ativan) 1 mg 1X ONCE IV Last administered on 10/22/16 02:35; Start 10/22/16 at 02:30; Stop 10/22/16 at 02:31; Status DC Morphine Sulfate 2 mg PRN Q1HR PRN IV PAIN Last administered on 10/26/16 02:09 ; Start 10/22/16 at 02:30 Famotidine (Pepcid) 20 mg 1X ONCE IVP Last administered on 10/22/16 02:35; Start 10/22/16 at 02:30; Stop 10/22/16 at 02:31; Status DC Hydralazine HCl (Apresoline) 10 mg PRN Q6HRS PRN IVP ELEVATED BP, SEE COMMENTS ; Start 10/22/16 at 10:45 Iohexol (Omnipaque 300 Mg/ml) 60 ml 1X ONCE PO Last administered on 10/22/16 11:43; Start 10/22/16 at 11:00; Stop 10/22/16 at 11:01; Status DC Iohexol (Omnipaque 300 Mg/ml) 60 ml 1X ONCE IV Last administered on 10/22/16 11:19; Start 10/22/16 at 11:00; Stop 10/22/16 at 11:01; Status DC Info 1 each 1 each PRN DAILY PRN MC SEE COMMENTS; Start 10/22/16 at 11:00; Stop 10/24/16 at 10:59; Status DC Sodium Chloride 50 meq/Sodium Acetate 80 meq/ Potassium Chloride 50 meq/ Potassium Phosphate 18 mmol/ Magnesium Sulfate 10 meq/Calcium Gluconate 10 meq/ Multivitamins/ Minerals 10 ml/ Chromium/Copper/ Manganese/Seleni/ Zn 1 ml/Total Parenteral Nutrition/Amino Acids/Dextrose/ Fat Emuls... 1,920 ml @ 80 mls/hr TPN CONT IV Last administered on 10/22/16 21:46; Start 10/22/16 at 22:00; Stop 10/23/16 at 21:59; Status DC Levothyroxine Sodium/Sodium Chloride (Synthroid/Iv Sodium Chloride 0.9% 50ml) 5 ml @ 100 mls/hr DAILY IVP Last administered on 10/26/16 09:19; Start 10/23/16 at 14:00 Furosemide (Lasix) 20 mg 1X ONCE IVP Last administered on 10/23/16 12:45; Start 10/23/16 at 12:30; Stop 10/23/16 at 12:31; Status DC Alteplase, Recombinant 2 mg 2 mg 1X ONCE INT CAT Last administered on 12:45; Start 10/23/16 at 12:30; Stop 10/23/16 at 12:31; Status DC Sodium Chloride/ Sodium Acetate/ Potassium Chloride/ Potassium Phosphate/ Magnesium Sulfate/ Calcium Gluconate/ Multivitamins/ Minerals/Chromium/ Copper/ Manganese/ Seleni/Zn/Total Parenteral Nutrition/Amino Acids/Dextrose/ Fat Emulsion Intravenous (Sodium Chloride/ Potass... 1,920 ml @ 80 mls/hr TPN CONT IV Last administered on 10/23/16 21:37; Start 10/23/16 at 22:00; Stop at 21:59; Status DC Acetaminophen 650 mg 650 mg PRN Q6HRS PRN [place] MILD PAIN / TEMP Last administered on 10/23/16 23:09; Start 10/23/16 at 23:00 Potassium Chloride/Dextrose/ Sod Cl 1,000 ml @ 80 mls/hr [id number] IV Last administered on 10/24/16 10:08; Start 10/24/16 at 09:30; Stop 10/24/16 at 13:58 ; Status DC Sodium Chloride 50 meq/Sodium Acetate 80 meq/ Potassium Chloride 50 meq/ Potassium Phosphate 18 mmol/ Magnesium Sulfate 10 meq/Calcium Gluconate 10 meq/ Multivitamins/ Minerals 10 ml/ Chromium/Copper/ Manganese/Seleni/ Zn 1 ml/Total Parenteral Nutrition/Amino Acids/Dextrose/ Fat Emuls... 1,920 ml @ 80 mls/hr TPN CONT IV Last administered on 10/24/16 22:10; Start 10/24/16 at 22:00; Stop 10/25/16 at 21:59; Status DC Sodium Chloride (Iv Sodium Chloride 0.45%) 1,000 ml @ 45 mls/hr [id number] IV Last administered on 10/24/16 14:00; Start 10/24/16 at 14:00; Stop 10/25/16 at 11:47; Status DC Albuterol/ Ipratropium (Duoneb) 3 ml RTQID NEB Last administered on 10/26/16 07:04; Start 10/25/16 at 12:00 Albuterol Sulfate (Ventolin Neb Soln) 2.5 mg PRN Q4HRS PRN NEB SOA; Start 10/25 at 12:00 Furosemide 40 mg 40 mg 1X ONCE IVP Last administered on 10/25/16 13:49; Start 10/25/16 at 11:45; Stop 10/25/16 at 11:53; Status DC Sodium Chloride 50 meq/Sodium Acetate 80 meq/ Potassium Chloride 50 meq/ Potassium Phosphate 18 mmol/ Magnesium Sulfate 10 meq/Calcium Gluconate 10 meq/ Multivitamins/ Minerals 10 ml/ Chromium/Copper/ Manganese/Seleni/ Zn 1 ml/Total Parenteral Nutrition/Amino Acids/Dextrose/ Fat Emuls... 1,920 ml @ 80 mls/hr TPN CONT IV Last administered on 10/25/16 21:06; Start 10/25/16 at 22:00; Stop 10/26/16 at 21:59 Albumin Human (Albuminar) 100 ml @ 100 mls/hr 1X ONCE IV Last administered on 10/25/16 18:19; Start 10/25/16 at 16:45; Stop 10/25/16 at 17:44; Status DC Furosemide (Lasix) 40 mg 1X ONCE IVP Last administered on 10/25/16t 18:24; Start 10/25/16 at 16:45; Stop 10/25/16 at 16:46; Status DC Active Scripts Active Hydrocodone-Apap 5-325 (Hydrocodone Bit/Acetaminophen) 1 Each Tablet 1 Tab PO PRN Q6HRS PRN Metoprolol Succinate ( Xl ) (Metoprolol Succinate) 25 Mg Tab.er.24h 25 Mg PO DAILY Reported Flomax (Tamsulosin Hcl) 0.4 Mg Cap.er.24h 1 Cap PO QHS Tramadol Hcl 100 Mg Tab.er.24h 100 Mg PO QID Levetiracetam 250 Mg Tablet 250 Mg PO BID Dulcolax (Bisacodyl) 10 Mg Supp.rect 10 Mg RC PRN DAILY PRN Maalox Advanced Suspension (Mag Hydrox/Al Hydrox/Simeth) 770 Ml Oral.susp 30 Ml PO Q2HR PRN Milk Of Magnesia (Magnesium Hydroxide) 400 Mg/5 Ml Oral.susp 30 Ml PO DAILY PRN Robitussin Cough-Chest Dm Liq (Guaifenesin/Dextromethorphan) 118 Ml Liquid 10 Ml PO Q4HRS PRN Trazodone Hcl 50 Mg Tablet 1 Tab PO QHS Tylenol (Acetaminophen) 325 Mg Tablet 650 Mg PO Q6HRS PRN Pramipexole Dihydrochloride (Pramipexole Di-Hcl) 0.5 Mg Tablet 0.5 Mg PO TID Simvastatin 20 Mg Tablet 1 Tab PO QHS Levothyroxine Sodium 100 Mcg Tablet 1 Tab PO DAILY Gabapentin 800 Mg Tablet 800 Mg PO QID Sinemet 25-100 Mg Tablet (Carbidopa/Levodopa) 1 Each Tablet 2 Tab PO TID Aspirin 81 Mg Tab.chew 1 Tab PO DAILY Vitals/I & O Vital Sign - Last 24 Hours 10/25/16 10/25/16 10/25/16 10/25/16 10:13 11:00 11:32 13:49 Temp 97.9 97.9 Pulse 88 Resp 22 18 22 22 B/P 128/65 Pulse Ox 89 88 89 O2 Delivery Nasal Cannula Nasal Cannula Nasal Cannula O2 Flow Rate 2.0 3.5 2.0 2.0 10/25/16 10/25/16 10/25/16 10/25/16 15:00 15:58 16:28 16:35 Temp 98.1 98.1 Pulse 91 Resp B/P 133/57 Pulse Ox 93 94 94 O2 Delivery Nasal Cannula Nasal Cannula Nasal Cannula Nasal Cannula O2 Flow Rate 3.5 2.0 3.0 3.0 10/25/16 10/25/16 10/25/16 10/25/16 19:05 19:53 20:30 23:14 Temp 98.8 98.4 98.8 98.4 Pulse 107 102 Resp B/P 108/52 91/44 Pulse Ox 94 95 92 O2 Delivery Nasal Cannula Nasal Cannula Nasal Cannula Nasal Cannula O2 Flow Rate 3.5 5.0 2.0 3.5 10/26/16 10/26/16 10/26/16 10/26/16 03:05 07:00 07:05 09:18 Temp 98.6 100.4 98.6 100.4 Pulse 103 109 Resp B/P 99/47 105/46 Pulse Ox 92 93 91 O2 Delivery Nasal Cannula Nasal Cannula Nasal Cannula Nasal Cannula O2 Flow Rate 3.5 5.0 5.0 5.0 Intake and Output 10/25/16 10/25/16 10/26/16 15:00 23:00 07:00 Intake Total 110 ml 960 ml Output Total 900 ml 400 ml Balance -790 ml 560 ml RICHARD [place] MD Oct 26, 2016 10:00
[2016-10-26] MEDS: TPN PER PHARMACY MC PRN (10:52)
[2016-10-26 11:00] VITALS: BP 112/45
--- NOTE | 2016-10-26 11:16 | RAD ---
Portable chest, 10/26/2016: History: Cough, fever, shortness of breath Comparison is made yesterday study. The right PICC now extends deep into the right atrium. The heart is enlarged. The pulmonary vascularity is within normal limits. The left base has partially cleared with better definition of the hemidiaphragm. There is mild discoid atelectasis in the right base. The upper lung sim are clear. IMPRESSION: 1. The right PICC now extends into the right atrium. 2. Cardiomegaly without vascular congestion. 3. Improving mild left basilar atelectasis/infiltrate. 4. Mild right basilar atelectasis.
[2016-10-26] MEDS: PIPERACILLIN/TAZOBACTAM 3.375 GM in IV NORMAL SALINE 50ML 50 ML IV SCH ×3 (12:25→22:03)
--- NOTE | 2016-10-26 13:19 | PDOC ---
PROGRESS NOTES Subjective Subjective pt denies abdominal pain, thinks he is passing gas Objective Objective Vital Signs Date Time Temp Pulse Resp B/P Pulse Ox O2 Delivery O2 Flow Rate FiO2 10/26/16 11:00 98.6 101 20 112/45 Nasal Cannula 5.0 98.6 10/26/16 09:48 91 Intake and Output 10/26/16 07:00 Intake Total 1070 ml Output Total 1300 ml Balance -230 ml IV Total 1070 ml Output Urine Total 1300 ml Physical Exam Physical Exam abdomen soft, nontender, incision ok Assessment Assessment Problems Medical Problems: (1) SBO (small bowel obstruction) Status: Acute KUB yesterday Abdomen, 2 views, 10/25/2016: History: Follow-up bowel distention Comparison is made to a study from 10/24/2016. An NG tube is not visible. A stimulator device remains in place with leads extending in the lower thoracic spinal canal. An inferior vena cava filter is in place. The lower pelvis was not completely included on the current exam. Gas is present in large and small bowel in a nonspecific pattern. No free air seen in the abdomen. There is ongoing atelectasis/infiltrate in the left base as noted on the current chest radiograph. IMPRESSION: No acute abdominal abnormality is detected. Plan Plan of Care S/P X lap, lysis of adhesions, postop emesis, ?etiology, recent KUB unremarkable; no new surgical recs Comment Review of Relevant I have reviewed the following items [place] (where applicable) has been applied. Labs Laboratory Tests Test 10/25/16 05:50 10/26/16 06:00 Sodium Level 135mmol/L (136-145) 141mmol/L (136-145) Potassium Level 4.6mmol/L (3.5-5.1) 4.5mmol/L (3.5-5.1) Chloride Level 103mmol/L (98-107) 105mmol/L (98-107) Carbon Dioxide Level 26mmol/L (21-32) 28mmol/L (21-32) Anion Gap 6 (6-14) 8 (6-14) Blood Urea Nitrogen 30mg/dL (8-26) 37mg/dL (8-26) Creatinine 1.5mg/dL (0.7-1.3) 1.6mg/dL (0.7-1.3) Estimated GFR (Cockcroft-Gault) 44.5 41.3 Glucose Level 152mg/dL (70-99) 123mg/dL (70-99) Calcium Level 7.9mg/dL (8.5-10.1) 7.6mg/dL (8.5-10.1) Phosphorus Level 3.2mg/dL (2.6-4.7) 3.7mg/dL (2.6-4.7) Magnesium Level 2.1mg/dL (1.8-2.4) Albumin 1.6g/dL (3.4-5.0) 1.8g/dL (3.4-5.0) Laboratory Tests Test 10/26/16 06:00 Sodium Level 141mmol/L (136-145) Potassium Level 4.5mmol/L (3.5-5.1) Chloride Level 105mmol/L (98-107) Carbon Dioxide Level 28mmol/L (21-32) Anion Gap 8 (6-14) Blood Urea Nitrogen 37mg/dL (8-26) Creatinine 1.6mg/dL (0.7-1.3) Estimated GFR (Cockcroft-Gault) 41.3 Glucose Level 123mg/dL (70-99) Calcium Level 7.6mg/dL (8.5-10.1) Phosphorus Level 3.7mg/dL (2.6-4.7) Albumin 1.8g/dL (3.4-5.0) Microbiology 10/13/16 Blood Culture - Final, Complete NO GROWTH AFTER 5 DAYS 10/25/16 Gram Stain - Final, Complete 10/13/16 Urine Culture - Final, Complete 10/13/16 Urine Culture Result 1 (MANDEEP) - Final, Complete Medications Current Medications Fentanyl Citrate 50 mcg 50 mcg PRN Q15MIN PRN IV PAIN GREATER THAN 3/10 Last administered on 09/30/16at 19:35; Start 09/30/16 at 17:30; Stop 10/01/16 at 04 :24; Status DC Lactated Ringer's (Iv Lactated Ringers) 1,000 ml @ 100 mls/hr Q10H IV Last administered on 09/30/16at 19:35; Start 09/30/16 at 17:28; Stop 10/01/16 at 03 :27; Status DC Ondansetron HCl (Zofran) 4 mg 1X ONCE IV Last administered on 09/30/16at 17:44 ; Start 09/30/16 at 17:30; Stop 09/30/16 at 17:32; Status DC Fentanyl Citrate (Fentanyl 2ml Vial) 50 mcg 1X ONCE IV ; Start 09/30/16 at 19: 15; Stop 10/01/16 at 04:24; Status DC Ondansetron HCl (Zofran) 4 mg PRN Q8HRS PRN IV NAUSEA/VOMITING Last administered on 09/30/16at 22:07; Start 09/30/16 at 19:15; Stop 10/01/16 at 19 :14; Status DC Fentanyl Citrate 50 mcg 50 mcg PRN Q2HR PRN IV PAIN Last administered on at 16:54; Start 09/30/16 at 19:15; Stop 10/01/16 at 19:14; Status DC Sodium Chloride 1,000 ml @ 100 mls/hr Q10H IV ; Start 09/30/16 at 19:30; Stop 10/01/16 at 04:24; Status DC Potassium Chloride/Dextrose/ Sod Cl (KCl 20 Meq In D5W-1/2 NS) 1,000 ml @ 125 mls/hr Q8H IV Last administered on 10/04/16at 06:02; Start 09/30/16 at 20:00; Stop 10/04/16 at 10:21; Status DC Enoxaparin Sodium 40 mg 40 mg Q24H SQ Last administered on 10/13/16 08:14; Start 10/01/16 at 09:00; Stop 10/13/16 at 08:36; Status DC Levetiracetam/ Sodium Chloride (Keppra/Iv Sodium Chloride 0.9% 100ml) 105 ml @ 400 mls/hr Q12HR IV Last administered on 10/05/16 09:30; Start 09/30/16 at 21: 00; Stop 10/05/16 at 10:24; Status DC Morphine Sulfate 2 mg PRN Q4HRS PRN IV SEVERE PAIN Last administered on 10:13; Start 09/30/16 at 19:30; Stop 10/05/16 at 10:24; Status DC Acetaminophen (Tylenol) 650 mg PRN Q6HRS PRN DC MILD PAIN / TEMP; Start at 19:30; Stop 10/05/16 at 10:24; Status DC Ondansetron HCl (Zofran) 4 mg PRN Q6HRS PRN IV NAUSEA/VOMITING Last administered on 10/07/16 08:28; Start 09/30/16 at 19:30; Stop 10/09/16 at 12:08 ; Status DC Benzocaine (Hurricaine One) 1 spray STK-MED ONCE .ROUTE ; Start 09/30/16 at 19: 51; Stop 09/30/16 at 19:52; Status DC Morphine Sulfate 4 mg PRN Q4HRS PRN IV PAIN Last administered on 10/05/16 08:08 ; Start 10/01/16 at 20:00; Stop 10/05/16 at 10:24; Status DC Clonidine HCl 1 patch 1 patch WEEKLY TD Last administered on 10/03/16at 12:30; Start 10/03/16 at 10:00; Stop 10/05/16 at 10:24; Status DC Piperacillin Sod/ Tazobactam Sod/ Sodium Chloride (Zosyn/Iv Sodium Chloride 0.9 % 50ml) 50 ml @ 100 mls/hr Q6HRS IV Last administered on 10/09/16 06:26; Start 10/04/16 at 11:00; Stop 10/09/16 at 10:55; Status DC Vancomycin HCl 1 each 1 each PRN DAILY PRN MC SEE COMMENTS Last administered on 10/07/16 11:11; Start 10/04/16 at 10:15; Stop 10/07/16 at 11:28; Status DC Vancomycin HCl/ Sodium Chloride (Iv Sodium Chloride 0.9% 250ml) 250 ml @ 250 mls/hr Q24H IV ; Start 10/04/16 at 10:15; Status UNV Labetalol HCl (Normodyne) 20 mg PRN Q6HRS PRN IVP HYPERTENSION, SEE COMMENTS; Start 10/04/16 at 10:15; Stop 10/05/16 at 10:24; Status DC Hydralazine HCl 10 mg 10 mg PRN Q6HRS PRN IVP ELEVATED BP, SEE COMMENTS Last administered on 10/06/16 19:17; Start 10/04/16 at 10:15; Stop 10/12/16 at 10:40 ; Status DC Amino Acids/ Glycerin/ Electrolytes 1,000 ml @ 40 mls/hr Q24H IV Last administered on 10/06/16 09:59; Start 10/04/16 at 10:15; Stop 10/07/16 at 09:06 ; Status DC Vancomycin HCl 2 gm/Sodium Chloride 500 ml @ 250 mls/hr 1X ONCE IV Last administered on 10/04/16at 11:26; Start 10/04/16 at 10:45; Stop 10/04/16 at 12 :44; Status DC Vancomycin HCl/ Sodium Chloride (Iv Sodium Chloride 0.9% 500ml Bag) 500 ml @ 250 mls/hr Q24H IV Last administered on 10/06/16 11:47; Start 10/05/16 at 12:00 ; Stop 10/07/16 at 11:28; Status DC Vancomycin HCl 1 each 1X ONCE MC Last administered on 10/06/16 11:30; Start at 11:30; Stop 10/06/16 at 11:31; Status DC Aspirin (Children'S Aspirin) 81 mg [id number] PO Last administered on 10/13/16 08:15; Start 10/05/16 at 11:00; Stop 10/13/16 at 08:29; Status DC Gabapentin (Neurontin) 600 mg QID PO Last administered on 10/13/16 08:14; Start 10/05/16 at 13:00; Stop 10/14/16 at 08:47; Status DC Levetiracetam (Keppra) 250 mg BID PO Last administered on 10/13/16 08:17; Start 10/05/16 at 11:00; Stop 10/14/16 at 08:47; Status DC Levothyroxine Sodium (Synthroid) 100 mcg DAILY07 PO Last administered on 05:08; Start 10/05/16 at 10:30; Stop 10/14/16 at 08:48; Status DC Metoprolol Succinate (Toprol Xl) 25 mg DAILY PO Last administered on 10/13/16 08:16; Start 10/05/16 at 11:00; Stop 10/14/16 at 08:47; Status DC Pramipexole Dihydrochloride (miraPEX) 0.5 mg [id number] PO Last administered on 10/13 08:15; Start 10/05/16 at 11:00; Stop 10/14/16 at 08:48; Status DC Simvastatin (Zocor) 20 mg HS PO Last administered on 10/12/16 21:07; Start 10/05 at 21:00; Stop 10/14/16 at 08:48; Status DC Carbidopa/Levodopa (Sinemet Cr) 1 tab.sa TID PO Last administered on 10/13/16 08:16; Start 10/05/16 at 11:00; Stop 10/14/16 at 08:48; Status DC Tamsulosin HCl (Flomax) 0.4 mg QHS PO Last administered on 10/12/16 21:07; Start 10/05/16 at 21:00; Stop 10/14/16 at 08:48; Status DC Tramadol HCl (Ultram) 50 mg QID PO Last administered on 10/13/16 08:17; Start 10/05/16 at 13:00; Stop 10/14/16 at 08:48; Status DC Acetaminophen (Tylenol) 650 mg PRN Q4HRS PRN PO MILD PAIN / TEMP Last administered on 10/13/16 00:17; Start 10/05/16 at 10:15; Stop 10/14/16 at 08:48; Status DC Prednisone (Prednisone) 20 mg 1X ONCE PO Last administered on 10/06/16 11:01; Start 10/06/16 at 10:30; Stop 10/06/16 at 10:31; Status DC Prednisone (Prednisone) 10 mg DAILY08 PO Last administered on 10/13/16 08:15; Start 10/07/16 at 08:00; Stop 10/13/16 at 08:29; Status DC Al Hydroxide/Mg Hydroxide (Mylanta Plus Xs) 30 ml PRN Q4HRS PRN PO HEARTBURN / GAS Last administered on 10/12/16 21:07; Start 10/07/16 at 08:45; Stop 10/14/16 at 08:48; Status DC Pantoprazole Sodium (Protonix) 40 mg DAILYAC PO Last administered on 10/13/16 05:08; Start 10/07/16 at 10:00; Stop 10/13/16 at 06:45; Status DC Furosemide 40 mg 40 mg DAILY PO Last administered on 10/08/16 08:42; Start 10/07 at 10:00; Stop 10/08/16 at 08:56; Status DC Sodium Chloride (Iv Sodium Chloride 0.45%) 1,000 ml @ 60 mls/hr CONT PRN IV . ; Start 10/08/16 at 09:00; Stop 10/08/16 at 16:06; Status DC Bisacodyl 10 mg 10 mg 1X ONCE DC Last administered on 10/08/16 10:11; Start at 09:30; Stop 10/08/16 at 09:31; Status DC Sodium Chloride (Iv Sodium Chloride 0.45%) 1,000 ml @ 60 mls/hr [id number] IV Last administered on 10/09/16 02:52; Start 10/08/16 at 10:15; Stop 10/09/16 at 12: 00; Status DC Cefpodoxime Proxetil (Vantin) 200 mg BID PO ; Start 10/09/16 at 11:00; Stop at 12:08; Status DC Cefpodoxime Proxetil (Vantin) 100 mg BID PO Last administered on 10/13/16 08:16 ; Start 10/09/16 at 21:00; Stop 10/13/16 at 08:29; Status DC Ondansetron HCl (Zofran) 4 mg STK-MED ONCE .ROUTE Last administered on 01:24; Start 10/13/16 at 01:19; Stop 10/13/16 at 01:20; Status DC Ondansetron HCl (Zofran) 4 mg PRN Q6HRS PRN IV NAUSEA/VOMITING Last administered on 10/25/16 00:38; Start 10/13/16 at 02:00 Pantoprazole Sodium 40 mg 40 mg DAILYAC IVP Last administered on 10/26/16 09: 16; Start 10/13/16 at 07:30 Dextrose/Sodium Chloride (Iv D5% - NS) 1,000 ml @ 60 mls/hr [id number] IV Last administered on 10/13/16 09:25; Start 10/13/16 at 08:30; Stop 10/13/16 at 11:01; Status DC Sodium Polystyrene Sulfonate 15 gm 15 gm 1X ONCE PO Last administered on 09:26; Start 10/13/16 at 08:30; Stop 10/13/16 at 08:31; Status DC Piperacillin Sod/ Tazobactam Sod 3.375 gm/Sodium Chloride 50 ml @ 100 mls/hr Q6HRS IV Last administered on 10/19/16 12:42; Start 10/13/16 at 09:00; Stop at 15:06; Status DC Dextrose/Sodium Chloride (Iv D5% - 1/2 NS) 1,000 ml @ 50 mls/hr Q20H IV Last administered on 10/17/16 00:16; Start 10/13/16 at 11:00; Stop 10/17/16 at 12:23 ; Status DC Ondansetron HCl (Zofran) 4 mg PRN Q6HRS PRN IV Nausea 1ST CHOICE; Start at 12:30; Stop 10/14/16 at 11:07; Status DC Fentanyl Citrate (Fentanyl 2ml Vial) 25 mcg PRN Q5MIN PRN IV MILD PAIN; Start 10/13/16 at 12:30; Stop 10/14/16 at 11:04; Status DC Fentanyl Citrate (Fentanyl 2ml Vial) 50 mcg PRN Q5MIN PRN IV MODERATE PAIN; Start 10/13/16 at 12:30; Stop 10/14/16 at 11:04; Status DC Morphine Sulfate 1 mg 1 mg PRN Q10MIN PRN IV SEVERE PAIN; Start 10/13/16 at 12: 30; Stop 10/14/16 at 11:00; Status DC Lactated Ringer's (Iv Lactated Ringers) 1,000 ml @ 0 mls/hr Q0M IV ; Start 10/13 at 12:17; Stop 10/14/16 at 00:16; Status DC Lidocaine HCl 2 ml 1X PRN PRN ID IV START; Start 10/13/16 at 12:30; Stop at 16:03; Status DC Hydromorphone HCl (Dilaudid) 0.5 mg PRN Q10MIN PRN IV SEV PAIN,Second choice; Start 10/13/16 at 12:30; Stop 10/14/16 at 11:04; Status DC Prochlorperazine Edisylate (Compazine) 5 mg PACU PRN PRN IV NAUSEA; Start at 12:30; Stop 10/14/16 at 11:00; Status DC Fentanyl Citrate (Fentanyl 2ml Vial) 50 mcg PRN Q5MIN PRN IV Acute Pain Last administered on 10/14/16t 10:04; Start 10/13/16 at 13:00; Stop 10/14/16 at 11:04 ; Status DC Morphine Sulfate 4 mg PRN Q10MIN PRN IV Moderate Pain; Start 10/13/16 at 13:00; Stop 10/14/16 at 11:00; Status DC Hydromorphone HCl (Dilaudid) 0.4 mg PRN Q10MIN PRN IV Moderate to severe pain; Start 10/13/16 at 13:00; Stop 10/14/16 at 11:04; Status DC Meperidine HCl (Demerol) 12.5 mg PRN Q5MIN PRN IV SHIVERING; Start 10/13/16 at 13:00; Stop 10/14/16 at 11:00; Status DC Prochlorperazine Edisylate (Compazine) 5 mg PRN Q6HRS PRN IV Nausea/Vomiting, 1st Choice; Start 10/13/16 at 13:00; Stop 10/14/16 at 11:00; Status DC Diphenhydramine HCl (Benadryl) 12.5 mg PRN Q2HR PRN IV ITCHING; Start 10/13/16 at 13:00; Stop 10/14/16 at 11:00; Status DC Midazolam HCl (Versed) 2 mg PRN 1X PRN IV PRIOR TO PROCEDURE; Start 10/13/16 at 13:00; Stop 10/14/16 at 11:07; Status DC Midazolam HCl (Versed) 1 mg PRN 1X PRN IV PRIOR TO PROCEDURE; Start 10/13/16 at 13:00; Stop 10/14/16 at 11:07; Status DC Fentanyl Citrate (Fentanyl 2ml Vial) 25 mcg PRN Q5MIN PRN IV X 2 DOSES FOR PAIN ; Start 10/13/16 at 13:00; Stop 10/14/16 at 11:04; Status DC Fentanyl Citrate 50 mcg 50 mcg PRN Q5MIN PRN IV X 2 DOSES FOR PAIN; Start at 13:00; Stop 10/14/16 at 11:04; Status DC Lactated Ringer's (Iv Lactated Ringers) 1,000 ml @ 125 mls/hr Q8H IV Last administered on 10/13/16 13:30; Start 10/13/16 at 12:48; Stop 10/14/16 at 00:47; Status DC Lidocaine HCl 2 ml 1X PRN PRN ID IV START; Start 10/13/16 at 13:00; Stop at 16:03; Status DC Fentanyl Citrate (Fentanyl 2ml Vial) 25 mcg PRN Q2HR PRN IV PAIN MOD TO SEV; Start 10/13/16 at 20:30; Stop 10/14/16 at 14:15; Status DC Fentanyl Citrate (Fentanyl 2ml Vial) 50 mcg PRN Q2HR PRN IV PAIN MOD TO SEV Last administered on 10/14/16 12:02; Start 10/13/16 at 20:30; Stop 10/14/16 at 14:15; Status DC Enoxaparin Sodium (Lovenox 40mg Syringe) 40 mg Q24H SQ Last administered on 09:18; Start 10/14/16 at 09:00 Fentanyl Citrate 100 mcg 100 mcg STK-MED ONCE .ROUTE ; Start 10/13/16 at 13:27; Stop 10/14/16 at 07:31; Status DC Propofol (Diprivan) 20 ml @ As Directed STK-MED ONCE IV ; Start 10/13/16 at 13:27 ; Stop 10/14/16 at 07:31; Status DC Rocuronium [place]born (Zemuron) 50 mg STK-MED ONCE .ROUTE ; Start 10/13/16 at 13:27 ; Stop 10/14/16 at 07:31; Status DC Lidocaine HCl 100 mg STK-MED ONCE .ROUTE ; Start 10/13/16 at 13:27; Stop at 07:31; Status DC Fentanyl Citrate (Fentanyl 2ml Vial) 100 mcg STK-MED ONCE .ROUTE ; Start at 13:27; Stop 10/14/16 at 07:31; Status DC Ephedrine Sulfate (Akovaz) 50 mg STK-MED ONCE .ROUTE ; Start 10/13/16 at 14:00; Stop 10/14/16 at 07:31; Status DC Phenylephrine HCl 1 mg STK-MED ONCE IV ; Start 10/13/16 at 14:25; Stop 10/14/16 at 07:31; Status DC Desflurane (Suprane) 60 ml STK-MED ONCE IH ; Start 10/13/16 at 14:25; Stop at 07:31; Status DC Dexamethasone Sodium Phosphate (Decadron) 20 mg STK-MED ONCE .ROUTE ; Start 10/13 at 14:25; Stop 10/14/16 at 07:31; Status DC Ondansetron HCl (Zofran) 4 mg STK-MED ONCE .ROUTE ; Start 10/13/16 at 14:25; Stop 10/14/16 at 07:31; Status DC Famotidine (Pepcid) 20 mg STK-MED ONCE .ROUTE ; Start 10/13/16 at 14:25; Stop 07/21 at 07:31; Status DC Rocuronium [place]born (Zemuron) 50 mg STK-MED ONCE .ROUTE ; Start 10/13/16 at 16:19 ; Stop 10/14/16 at 07:31; Status DC Fentanyl Citrate (Fentanyl 2ml Vial) 100 mcg STK-MED ONCE .ROUTE ; Start at 16:21; Stop 10/14/16 at 07:31; Status DC Desflurane (Suprane) 90 ml STK-MED ONCE IH ; Start 10/13/16 at 16:53; Stop at 07:31; Status DC Glycopyrrolate (Robinul) 1 mg STK-MED ONCE .ROUTE ; Start 10/13/16 at 17:00; Stop 10/14/16 at 07:31; Status DC Neostigmine Methylsulfate 5 mg STK-MED ONCE .ROUTE ; Start 10/13/16 at 17:00; Stop 10/14/16 at 07:31; Status DC Phenylephrine HCl 1 mg STK-MED ONCE IV ; Start 10/13/16 at 18:14; Stop 10/14/16 at 07:31; Status DC Fentanyl Citrate (Fentanyl 2ml Vial) 100 mcg STK-MED ONCE .ROUTE ; Start at 18:20; Stop 10/14/16 at 07:31; Status DC Fentanyl Citrate 100 mcg 100 mcg STK-MED ONCE .ROUTE ; Start 10/13/16 at 19:17; Stop 10/14/16 at 07:31; Status DC Levetiracetam 500 mg/Sodium Chloride 105 ml @ 400 mls/hr Q12HR IV Last administered on 10/26/16 09:19; Start 10/14/16 at 09:00 Amino Acids/ Glycerin/ Electrolytes (Procalamine) 1,000 ml @ 80 mls/hr [id number] IV Last administered on 10/16/16 09:16; Start 10/14/16 at 11:15; Stop at 21:59; Status DC Morphine Sulfate 2 mg PRN Q4HRS PRN IV MODERATE PAIN Last administered on 00:57; Start 10/14/16 at 14:15 Morphine Sulfate 4 mg PRN Q4HRS PRN IV SEVERE PAIN Last administered on 09:18; Start 10/14/16 at 14:30 Info 1 each 1 each PRN DAILY PRN MC SEE COMMENTS Last administered on 10:52; Start 10/16/16 at 11:30 Sodium Chloride/ Potassium Chloride/ Potassium Phosphate/ Magnesium Sulfate/ Calcium Gluconate/ Multivitamins/ Minerals/Chromium/ Copper/Manganese/ Seleni/Zn /Total Parenteral Nutrition/Amino Acids/Dextrose/ Fat Emulsion Intravenous ( Sodium Chloride/ Potassium Phospha... 1,512 ml @ 63 mls/hr TPN CONT IV ; Start 10/16/16 at 22:00; Stop 10/17/16 at 12:50; Status DC Lidocaine/Sodium Bicarbonate 20 ml 20 ml STK-MED ONCE IJ ; Start 10/17/16 at 08: 20; Stop 10/17/16 at 08:21; Status DC Heparin Sodium/ Sodium Chloride 500 ml @ As Directed STK-MED ONCE .ROUTE ; Start 10/17/16 at 08:20; Stop 10/17/16 at 08:21; Status DC Lidocaine/Sodium Bicarbonate (Buffered Lidocaine 1%) 3 ml 1X ONCE IJ Last administered on 10/17/16 08:30; Start 10/17/16 at 08:30; Stop 10/17/16 at 08:31 ; Status DC Heparin Sodium/ Sodium Chloride 60 unit 1X ONCE IV Last administered on 08:30; Start 10/17/16 at 08:30; Stop 10/17/16 at 08:31; Status DC Iohexol (Omnipaque 300 Mg/ml) 50 ml STK-MED ONCE .ROUTE ; Start 10/17/16 at 09: 02; Stop 10/17/16 at 09:03; Status DC Iohexol (Omnipaque 300 Mg/ml) 43 ml 1X ONCE IART Last administered on 08:45; Start 10/17/16 at 09:30; Stop 10/17/16 at 09:33; Status DC Info (Do NOT chart on this entry -- for MONITORING) 1 each PRN DAILY PRN MC SEE COMMENTS; Start 10/17/16 at 09:45; Stop 10/19/16 at 09:44; Status DC Clonidine HCl (Catapres Tts-2) 1 patch WEEKLY TD Last administered on 09:12; Start 10/17/16 at 11:00; Stop 10/26/16 at 09:54; Status DC Labetalol HCl 20 mg 20 mg PRN Q6HRS PRN IVP HYPERTENSION, SEE COMMENTS; Start 10/17/16 at 10:30 Sodium Chloride 1,000 ml @ 60 mls/hr [id number] IV Last administered on 06:32; Start 10/17/16 at 12:30; Stop 10/19/16 at 10:06; Status DC Sodium Chloride 90 meq/Potassium Chloride 50 meq/ Potassium Phosphate 13.6 mmol/ Magnesium Sulfate 10 meq/ Calcium Gluconate 10 meq/ Multivitamins/ Minerals 10 ml/ Chromium/Copper/ Manganese/Seleni/ Zn 1 ml/Total Parenteral Nutrition/Amino Acids/Dextrose/ Fat Emulsion Intravenous 1,512 ml @ 63 mls/hr TPN CONT IV Last administered on 10/17/16 21:09; Start 10/17/16 at 22:00; Stop 10/18/16 at 21:59; Status DC Sodium Chloride/ Potassium Chloride/ Potassium Phosphate/ Magnesium Sulfate/ Calcium Gluconate/ Multivitamins/ Minerals/Chromium/ Copper/Manganese/ Seleni/Zn /Total Parenteral Nutrition/Amino Acids/Dextrose/ Fat Emulsion Intravenous ( Sodium Chloride/ Potassium Phospha... 1,512 ml @ 63 mls/hr TPN CONT IV Last administered on 10/18/16 21:24; Start 10/18/16 at 22:00; Stop 10/19/16 at 21:59 ; Status DC Furosemide 20 mg 20 mg 1X ONCE IVP Last administered on 10/19/16 11:01; Start 10/19/16 at 10:30; Stop 10/19/16 at 10:31; Status DC Sodium Chloride 90 meq/Sodium Acetate 40 meq/ Potassium Chloride 50 meq/ Potassium Phosphate 13.6 mmol/Magnesium Sulfate 10 meq/ Calcium Gluconate 10 meq / Multivitamins/ Minerals 10 ml/ Chromium/Copper/ Manganese/Seleni/ Zn 1 ml/ Total Parenteral Nutrition/Amino Acids/Dextro... 1,920 ml @ 80 mls/hr TPN CONT IV Last administered on 10/19/16 22:29; Start 10/19/16 at 22:00; Stop at 21:59; Status DC Sodium Chloride 1,000 ml @ 45 mls/hr [id number] IV Last administered on 22:24; Start 10/20/16 at 09:00; Stop 10/21/16 at 09:26; Status DC Magnesium Sulfate/ Dextrose 50 ml @ 25 mls/hr PRN DAILY PRN IV for Mag < 1.7 on am labs; Start 10/20/16 at 13:15 Sodium Chloride/ Sodium Acetate/ Potassium Chloride/ Potassium Phosphate/ Magnesium Sulfate/ Calcium Gluconate/ Multivitamins/ Minerals/Chromium/ Copper/ Manganese/ Seleni/Zn/Total Parenteral Nutrition/Amino Acids/Dextrose/ Fat Emulsion Intravenous (Sodium Chloride/ Potass... 1,920 ml @ 80 mls/hr TPN CONT IV Last administered on 10/20/16 22:23; Start 10/20/16 at 22:00; Stop at 21:59; Status DC Acetaminophen/ Hydrocodone Bitart 1 tab 1 tab PRN Q4HRS PRN PO PAIN Last administered on 10/21/16 23:51; Start 10/21/16 at 09:30; Stop 10/22/16 at 10:39 ; Status DC Sodium Chloride/ Sodium Acetate/ Potassium Chloride/ Potassium Phosphate/ Magnesium Sulfate/ Calcium Gluconate/ Multivitamins/ Minerals/Chromium/ Copper/ Manganese/ Seleni/Zn/Total Parenteral Nutrition/Amino Acids/Dextrose/ Fat Emulsion Intravenous (Sodium Chloride/ Potass... 1,920 ml @ 80 mls/hr TPN CONT IV Last administered on 10/21/16 22:22; Start 10/21/16 at 22:00; Stop at 21:59; Status DC Metoclopramide HCl (Reglan) 10 mg 1X ONCE IV Last administered on 10/22/16 01 :56; Start 10/22/16 at 02:00; Stop 10/22/16 at 02:01; Status DC Lorazepam (Ativan) 1 mg 1X ONCE IV Last administered on 10/22/16 02:35; Start 10/22/16 at 02:30; Stop 10/22/16 at 02:31; Status DC Morphine Sulfate 2 mg PRN Q1HR PRN IV PAIN Last administered on 10/26/16 02:09 ; Start 10/22/16 at 02:30 Famotidine (Pepcid) 20 mg 1X ONCE IVP Last administered on 10/22/16 02:35; Start 10/22/16 at 02:30; Stop 10/22/16 at 02:31; Status DC Hydralazine HCl (Apresoline) 10 mg PRN Q6HRS PRN IVP ELEVATED BP, SEE COMMENTS ; Start 10/22/16 at 10:45 Iohexol (Omnipaque 300 Mg/ml) 60 ml 1X ONCE PO Last administered on 10/22/16 11:43; Start 10/22/16 at 11:00; Stop 10/22/16 at 11:01; Status DC Iohexol (Omnipaque 300 Mg/ml) 60 ml 1X ONCE IV Last administered on 10/22/16 11:19; Start 10/22/16 at 11:00; Stop 10/22/16 at 11:01; Status DC Info 1 each 1 each PRN DAILY PRN MC SEE COMMENTS; Start 10/22/16 at 11:00; Stop 10/24/16 at 10:59; Status DC Sodium Chloride 50 meq/Sodium Acetate 80 meq/ Potassium Chloride 50 meq/ Potassium Phosphate 18 mmol/ Magnesium Sulfate 10 meq/Calcium Gluconate 10 meq/ Multivitamins/ Minerals 10 ml/ Chromium/Copper/ Manganese/Seleni/ Zn 1 ml/Total Parenteral Nutrition/Amino Acids/Dextrose/ Fat Emuls... 1,920 ml @ 80 mls/hr TPN CONT IV Last administered on 10/22/16 21:46; Start 10/22/16 at 22:00; Stop 10/23/16 at 21:59; Status DC Levothyroxine Sodium/Sodium Chloride (Synthroid/Iv Sodium Chloride 0.9% 50ml) 5 ml @ 100 mls/hr DAILY IVP Last administered on 10/26/16 09:19; Start 10/23/16 at 14:00 Furosemide (Lasix) 20 mg 1X ONCE IVP Last administered on 10/23/16 12:45; Start 10/23/16 at 12:30; Stop 10/23/16 at 12:31; Status DC Alteplase, Recombinant 2 mg 2 mg 1X ONCE INT CAT Last administered on 12:45; Start 10/23/16 at 12:30; Stop 10/23/16 at 12:31; Status DC Sodium Chloride/ Sodium Acetate/ Potassium Chloride/ Potassium Phosphate/ Magnesium Sulfate/ Calcium Gluconate/ Multivitamins/ Minerals/Chromium/ Copper/ Manganese/ Seleni/Zn/Total Parenteral Nutrition/Amino Acids/Dextrose/ Fat Emulsion Intravenous (Sodium Chloride/ Potass... 1,920 ml @ 80 mls/hr TPN CONT IV Last administered on 10/23/16 21:37; Start 10/23/16 at 22:00; Stop at 21:59; Status DC Acetaminophen 650 mg 650 mg PRN Q6HRS PRN DC MILD PAIN / TEMP Last administered on 10/23/16 23:09; Start 10/23/16 at 23:00; Stop 10/26/16 at 10:04 ; Status DC Potassium Chloride/Dextrose/ Sod Cl 1,000 ml @ 80 mls/hr [id number] IV Last administered on 10/24/16 10:08; Start 10/24/16 at 09:30; Stop 10/24/16 at 13:58 ; Status DC Sodium Chloride 50 meq/Sodium Acetate 80 meq/ Potassium Chloride 50 meq/ Potassium Phosphate 18 mmol/ Magnesium Sulfate 10 meq/Calcium Gluconate 10 meq/ Multivitamins/ Minerals 10 ml/ Chromium/Copper/ Manganese/Seleni/ Zn 1 ml/Total Parenteral Nutrition/Amino Acids/Dextrose/ Fat Emuls... 1,920 ml @ 80 mls/hr TPN CONT IV Last administered on 10/24/16 22:10; Start 10/24/16 at 22:00; Stop 10/25/16 at 21:59; Status DC Sodium Chloride (Iv Sodium Chloride 0.45%) 1,000 ml @ 45 mls/hr [id number] IV Last administered on 10/24/16 14:00; Start 10/24/16 at 14:00; Stop 10/25/16 at 11:47; Status DC Albuterol/ Ipratropium (Duoneb) 3 ml RTQID NEB Last administered on 10/26/16 10:52; Start 10/25/16 at 12:00 Albuterol Sulfate (Ventolin Neb Soln) 2.5 mg PRN Q4HRS PRN NEB SOA; Start 10/25 at 12:00 Furosemide 40 mg 40 mg 1X ONCE IVP Last administered on 10/25/16 13:49; Start 10/25/16 at 11:45; Stop 10/25/16 at 11:53; Status DC Sodium Chloride 50 meq/Sodium Acetate 80 meq/ Potassium Chloride 50 meq/ Potassium Phosphate 18 mmol/ Magnesium Sulfate 10 meq/Calcium Gluconate 10 meq/ Multivitamins/ Minerals 10 ml/ Chromium/Copper/ Manganese/Seleni/ Zn 1 ml/Total Parenteral Nutrition/Amino Acids/Dextrose/ Fat Emuls... 1,920 ml @ 80 mls/hr TPN CONT IV Last administered on 10/25/16 21:06; Start 10/25/16 at 22:00; Stop 10/26/16 at 21:59 Albumin Human (Albuminar) 100 ml @ 100 mls/hr 1X ONCE IV Last administered on 10/25/16 18:19; Start 10/25/16 at 16:45; Stop 10/25/16 at 17:44; Status DC Furosemide 40 mg 40 mg 1X ONCE IVP Last administered on 10/25/16 18:24; Start 10/25/16 at 16:45; Stop 10/25/16 at 16:46; Status DC Piperacillin Sod/ Tazobactam Sod 3.375 gm/Sodium Chloride 50 ml @ 100 mls/hr Q8HRS IV Last administered on 10/26/16t 12:25; Start 10/26/16 at 10:00 Linezolid (Zyvox Premix) 300 ml @ 300 mls/hr Q12HR IV Last administered on t 12:23; Start 10/26/16 at 10:00 Bisacodyl 10 mg 10 mg 1X ONCE DC ; Start 10/26/16 at 10:00; Stop 10/26/16 at 10 :02; Status DC Sodium Chloride (Iv Sodium Chloride 0.45%) 1,000 ml @ 45 mls/hr [id number] IV ; Start 10/26/16 at 10:00 Acetaminophen 650 mg 650 mg PRN Q6HRS PRN DC MILD PAIN / TEMP; Start 10/26/16 at 10:00 Sodium Chloride/ Sodium Acetate/ Potassium Chloride/ Potassium Phosphate/ Magnesium Sulfate/ Calcium Gluconate/ Multivitamins/ Minerals/Chromium/ Copper/ Manganese/ Seleni/Zn/Total Parenteral Nutrition/Amino Acids/Dextrose/ Fat Emulsion Intravenous (Sodium Chloride/ Potass... 1,920 ml @ 80 mls/hr TPN CONT IV ; Start 10/26/16 at 22:00; Stop 10/27/16 at 21:59 Active Scripts Active Hydrocodone-Apap 5-325 (Hydrocodone Bit/Acetaminophen) 1 Each Tablet 1 Tab PO PRN Q6HRS PRN Metoprolol Succinate ( Xl ) (Metoprolol Succinate) 25 Mg Tab.er.24h 25 Mg PO DAILY Reported Flomax (Tamsulosin Hcl) 0.4 Mg Cap.er.24h 1 Cap PO QHS Tramadol Hcl 100 Mg Tab.er.24h 100 Mg PO QID Levetiracetam 250 Mg Tablet 250 Mg PO BID Dulcolax (Bisacodyl) 10 Mg Supp.rect 10 Mg RC PRN DAILY PRN Maalox Advanced Suspension (Mag Hydrox/Al Hydrox/Simeth) 770 Ml Oral.susp 30 Ml PO Q2HR PRN Milk Of Magnesia (Magnesium Hydroxide) 400 Mg/5 Ml Oral.susp 30 Ml PO DAILY PRN Robitussin Cough-Chest Dm Liq (Guaifenesin/Dextromethorphan) 118 Ml Liquid 10 Ml PO Q4HRS PRN Trazodone Hcl 50 Mg Tablet 1 Tab PO QHS Tylenol (Acetaminophen) 325 Mg Tablet 650 Mg PO Q6HRS PRN Pramipexole Dihydrochloride (Pramipexole Di-Hcl) 0.5 Mg Tablet 0.5 Mg PO TID Simvastatin 20 Mg Tablet 1 Tab PO QHS Levothyroxine Sodium 100 Mcg Tablet 1 Tab PO DAILY Gabapentin 800 Mg Tablet 800 Mg PO QID Sinemet 25-100 Mg Tablet (Carbidopa/Levodopa) 1 Each Tablet 2 Tab PO TID Aspirin 81 Mg Tab.chew 1 Tab PO DAILY Vitals/I & O Vital Sign - Last 24 Hours 10/25/16 10/25/16 10/25/16 10/25/16 13:49 15:00 15:58 16:28 Temp 98.1 98.1 Pulse 91 Resp B/P 133/57 Pulse Ox 89 93 94 O2 Delivery Nasal Cannula Nasal Cannula Nasal Cannula Nasal Cannula O2 Flow Rate 2.0 3.5 2.0 3.0 10/25/16 10/25/16 10/25/16 10/25/16 16:35 19:05 19:53 20:30 Temp 98.8 98.8 Pulse 107 Resp 20 B/P 108/52 Pulse Ox 94 94 95 O2 Delivery Nasal Cannula Nasal Cannula Nasal Cannula Nasal Cannula O2 Flow Rate 3.0 3.5 5.0 2.0 10/25/16 10/26/16 10/26/16 10/26/16 23:14 03:05 07:00 07:05 Temp 98.4 98.6 100.4 98.4 98.6 100.4 Pulse 102 103 109 Resp B/P 91/44 99/47 105/46 Pulse Ox 92 92 93 91 O2 Delivery Nasal Cannula Nasal Cannula Nasal Cannula Nasal Cannula O2 Flow Rate 3.5 3.5 5.0 5.0 10/26/16 10/26/16 10/26/16 10/26/16 09:18 09:48 10:53 11:00 Temp 98.6 98.6 Pulse 101 Resp 20 B/P 112/45 Pulse Ox 91 O2 Delivery Nasal Cannula Nasal Cannula Nasal Cannula Nasal Cannula O2 Flow Rate 5.0 5.0 5.0 5.0 Intake and Output 10/25/16 10/25/16 10/26/16 15:00 23:00 07:00 Intake Total 110 ml 960 ml Output Total 900 ml 400 ml Balance -790 ml 560 ml KENDRICK CULVER MD Oct 26, 2016 13:19
[2016-10-26] MEDS: IV 1/2 NORMAL SALINE 1,000 ML IV SCH (13:26)
--- NOTE | 2016-10-26 14:17 | PDOC ---
PULMONARY PROGRESS NOTES Subjective Feeling better today. Febrile overnight. Continues to ahve difficulty breathing. + cough, difficulty with expectoration. Vitals Vital Signs Date Time Temp Pulse Resp B/P Pulse Ox O2 Delivery O2 Flow Rate FiO2 10/26/16 13:27 Nasal Cannula 5.0 10/26/16 11:00 98.6 101 20 112/45 98.6 10/26/16 09:48 91 ROS: No Chest Pain General: Alert, Oriented X4, Mild Distress Lungs: Crackles, Other (rhonchi BL) Cardiovascular: S1, S2 Abdomen: Soft Neuro Exam: Alert, Oriented Extremities: Other (2+ edema BL ) Skin: Warm, Dry Labs Laboratory Tests Test 10/25/16 05:50 10/26/16 06:00 Sodium Level 135mmol/L (136-145) 141mmol/L (136-145) Potassium Level 4.6mmol/L (3.5-5.1) 4.5mmol/L (3.5-5.1) Chloride Level 103mmol/L (98-107) 105mmol/L (98-107) Carbon Dioxide Level 26mmol/L (21-32) 28mmol/L (21-32) Anion Gap 6 (6-14) 8 (6-14) Blood Urea Nitrogen 30mg/dL (8-26) 37mg/dL (8-26) Creatinine 1.5mg/dL (0.7-1.3) 1.6mg/dL (0.7-1.3) Estimated GFR (Cockcroft-Gault) 44.5 41.3 Glucose Level 152mg/dL (70-99) 123mg/dL (70-99) Calcium Level 7.9mg/dL (8.5-10.1) 7.6mg/dL (8.5-10.1) Phosphorus Level 3.2mg/dL (2.6-4.7) 3.7mg/dL (2.6-4.7) Magnesium Level 2.1mg/dL (1.8-2.4) Albumin 1.6g/dL (3.4-5.0) 1.8g/dL (3.4-5.0) Laboratory Tests Test 10/26/16 06:00 Sodium Level 141mmol/L (136-145) Potassium Level 4.5mmol/L (3.5-5.1) Chloride Level 105mmol/L (98-107) Carbon Dioxide Level 28mmol/L (21-32) Anion Gap 8 (6-14) Blood Urea Nitrogen 37mg/dL (8-26) Creatinine 1.6mg/dL (0.7-1.3) Estimated GFR (Cockcroft-Gault) 41.3 Glucose Level 123mg/dL (70-99) Calcium Level 7.6mg/dL (8.5-10.1) Phosphorus Level 3.7mg/dL (2.6-4.7) Albumin 1.8g/dL (3.4-5.0) Medications Active Scripts Medications Dose Route/Sig Days Date Category Hydrocodone-Apap 5-325 (Hydrocodone Bit/Acetaminophen) 1 Each Tablet 1 Tab PO PRN Q6HRS PRN 08/28/16 Rx Flomax (Tamsulosin Hcl) 0.4 Mg Cap.er.24h 1 Cap PO QHS 01/01/16 Reported Tramadol Hcl 100 Mg Tab.er.24h 100 Mg PO QID 01/01/16 Reported Levetiracetam 250 Mg Tablet 250 Mg PO BID 01/01/16 Reported Dulcolax (Bisacodyl) 10 Mg Supp.rect 10 Mg RC PRN DAILY PRN 12/21/15 Reported Maalox Advanced Suspension (Mag Hydrox/Al Hydrox/Simeth) 770 Ml Oral.susp 30 Ml PO Q2HR PRN 12/21/15 Reported Milk Of Magnesia (Magnesium Hydroxide) 400 Mg/5 Ml Oral.susp 30 Ml PO DAILY PRN 12/21/15 Reported Robitussin Cough-Chest Dm Liq (Guaifenesin/Dextromethorphan) 118 Ml Liquid 10 Ml PO Q4HRS PRN 12/21/15 Reported Trazodone Hcl 50 Mg Tablet 1 Tab PO QHS 12/21/15 Reported Tylenol (Acetaminophen) 325 Mg Tablet 650 Mg PO Q6HRS PRN 12/21/15 Reported Pramipexole Dihydrochloride (Pramipexole Di-Hcl) 0.5 Mg Tablet 0.5 Mg PO TID 12/08/15 Reported Metoprolol Succinate ( Xl ) (Metoprolol Succinate) 25 Mg Tab.er.24h 25 Mg PO DAILY 12/06/15 Rx Simvastatin 20 Mg Tablet 1 Tab PO QHS 12/02/15 Reported Levothyroxine Sodium 100 Mcg Tablet 1 Tab PO DAILY 12/02/15 Reported Gabapentin 800 Mg Tablet 800 Mg PO QID 12/02/15 Reported Sinemet 25-100 Mg Tablet (Carbidopa/Levodopa) 1 Each Tablet 2 Tab PO TID 12/02/15 Reported Aspirin 81 Mg Tab.chew 1 Tab PO DAILY 12/02/15 Reported Comments 10/26/16 - CXR History: Cough, fever, shortness of breath Comparison is made yesterday study. The right PICC now extends deep into the right atrium. The heart is enlarged. The pulmonary vascularity is within normal limits. The left base has partially cleared with better definition of the hemidiaphragm. There is mild discoid atelectasis in the right base. The upper lung sim are clear. IMPRESSION: 1. The right PICC now extends into the right atrium. 2. Cardiomegaly without vascular congestion. 3. Improving mild left basilar atelectasis/infiltrate. 4. Mild right basilar atelectasis. Impression . - Acute Hypoxemic Respiratory Failure - LLL lung infiltrate - Small-bowel obstruction s/p exploratory laparotomy 10/13/16. - post op ileus - critical illness myopathy - Chronic kidney disease stage III - Seizure disorder. - Parkinson's disease. - Hypothyroidism. - Peripheral neuropathy. - Hypertension. - paroxysmal atrial fibrillation Plan . Plan of Care - Follow cultures - Encourage IS; Pulmonary clearance; may need EzPAP - suspect CXR is atelectatic changes. - NTS prn if needed - May need BIPAP, and monitor closely - Monitor I/Os: and would continue gentle diuresis - Abx started this AM. Currently on zyvox and zosyn - Abx per iD - continue TPN - Passing flatulence and continue to facilitate BM's - GI ppx - dvt ppx ROSEANN PETERSON MD Oct 26, 2016 14:17
[2016-10-26 15:00] VITALS: BP 174/73
[2016-10-26 19:00] VITALS: BP 106/40
[2016-10-26] MEDS: MICAFUNGIN 100 MG in IV DEXTROSE 5% 100 ML IV SCH (21:55)
[2016-10-26] MEDS ORDERED: [UNRECOGNIZED DRUG - OTHER] IV SCH ×11 (22:00)
[2016-10-26] MEDS ORDERED: TOTAL PARENTERAL NUTRITION IV SCH ×11 (22:00)
[2016-10-26] MEDS ORDERED: DEXTROSE 70% IV SCH ×11 (22:00)
[2016-10-26] MEDS ORDERED: AMINO ACIDS IV SCH ×11 (22:00)
[2016-10-26] MEDS: ACETAMINOPHEN 650 MG SUPP.RECT. PR PRN (23:04)
[2016-10-26 23:43] VITALS: BP 103/40
[2016-10-27] VITALS (15 sets, daily range): BP systolic 98–130; BP diastolic 37–59
[2016-10-27] MEDS: MORPHINE SULFATE 2 MG/ML DISP.SYRIN. IV PRN ×4 (00:34→20:32)
[2016-10-27] MEDS: ONDANSETRON PF 4 MG/2 ML VIAL. IV PRN (00:39)
[2016-10-27 04:32] LABS: BASO % 1 % (0-3); EOS % 1 % (0-3); LYMPH # 0.6 x10^3/uL (1.0-4.8); LYMPH % 14 % (24-48); MEAN CORPUSCULAR HEMOGLOBIN 32 pg (25-35); MEAN CORPUSCULAR HGB CONC 33 g/dL (31-37); MEAN CORPUSCULAR VOLUME 97 fL (79-100); MONO % 10 % (0-9); NEUT % 75 % (31-73); PLATELET COUNT 241 x10^3/uL (140-400); RED BLOOD COUNT 1.93 x10^6/uL (4.30-5.70); RED CELL DISTRIBUTION WIDTH 15.7 % (11.5-14.5); WHITE BLOOD COUNT 4.5 x10^3/uL (4.0-11.0)
[2016-10-27 04:40] LABS: ALBUMIN 1.5 g/dL (3.4-5.0); ALBUMIN/GLOBULIN RATIO 0.4 (1.0-1.7); CALCIUM 7.4 mg/dL (8.5-10.1); CREATININE 1.8 mg/dL (0.7-1.3); POTASSIUM 4.6 mmol/L (3.5-5.1); TOTAL BILIRUBIN 0.3 mg/dL (0.2-1.0); TOTAL PROTEIN 5.4 g/dL (6.4-8.2)
[2016-10-27 05:11] LABS: HEMOGLOBIN 6.1 g/dL (13.0-17.5)
[2016-10-27 05:12] LABS: HEMATOCRIT 18.7 % (39.0-53.0)
[2016-10-27] MEDS: PIPERACILLIN/TAZOBACTAM 3.375 GM in IV NORMAL SALINE 50ML 50 ML IV SCH ×3 (05:29→22:51)
[2016-10-27] MEDS: IPRATRPIUM/ALBUTEROL 0.5/2.5MG 3 ML NEBU. NEB SCH ×4 (07:32→20:07)
[2016-10-27] MEDS: PANTOPRAZOLE IV PUSH 40 MG VIAL. IVP SCH (09:08)
[2016-10-27] MEDS: LEVOTHYROXINE SODIUM 50 MCG in IV NORMAL SALINE 50ML 5 ML IVP SCH (09:09)
[2016-10-27] MEDS: LEVETIRACETAM 500 MG in IV NORMAL SALINE 100ML 100 ML IV SCH ×2 (09:10→20:25)
[2016-10-27] MEDS: IV 1/2 NORMAL SALINE 1,000 ML IV SCH (09:11)
[2016-10-27] MEDS: BISACODYL 10 MG SUPP.RECT PR ONE (09:11)
[2016-10-27] MEDS: MORPHINE SULFATE 4 MG/ML DISP.SYRIN. IV PRN ×4 (09:12→22:59)
--- NOTE | 2016-10-27 09:29 | PDOC ---
Infectious Disease Note Subjective Subjective Vomited over the weekend. Has a cough. Currently feeling some better ROS ROS GEN: Denies fevers, chills, sweats HEENT: Denies blurred vision, sore throat CV: Denies chest pain RESP: Denies shortness of air. + sputum production GI: Denies n/v/d NEURO: Denies confusion, dizziness MSK: Denies weakness, joint pain/swelling Vital Sign Vital Signs Vital Signs Date Time Temp Pulse Resp B/P Pulse Ox O2 Delivery O2 Flow Rate FiO2 10/27/16 09:12 96 Nasal Cannula 3.0 10/27/16 07:00 98.2 89 16 98/40 98.2 Physical Exam PHYSICAL EXAM GENERAL: In bed, NAD, coop HEENT: OC/OP edentulous. pink and dry NECK: Supple, no JVD, no LN LUNGS: Coarse on right HEART: S1S2, no gallop, no murmur ABD: Obese, hypoactive BS, NT light palpation. Incision well-approx. No redness or drainage. EXT: BLE trace edema. 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 SKIN: No rash Labs Lab Laboratory Tests Test 10/27/16 04:00 White Blood Count 4.5x10^3/uL (4.0-11.0) Red Blood Count 1.93x10^6/uL (4.30-5.70) Hemoglobin 6.1g/dL (13.0-17.5) Hematocrit 18.7% (39.0-53.0) Mean Corpuscular Volume 97fL (79-100) Mean Corpuscular Hemoglobin 32pg (25-35) Mean Corpuscular Hemoglobin Concent 33g/dL (31-37) Red Cell Distribution Width 15.7% (11.5-14.5) Platelet Count 241x10^3/uL (140-400) Neutrophils (%) (Auto) 75% (31-73) Lymphocytes (%) (Auto) 14% (24-48) Monocytes (%) (Auto) 10% (0-9) Eosinophils (%) (Auto) 1% (0-3) Basophils (%) (Auto) 1% (0-3) Neutrophils # (Auto) 3.3x10^3uL (1.8-7.7) Lymphocytes # (Auto) 0.6x10^3/uL (1.0-4.8) Monocytes # (Auto) 0.4x10^3/uL (0.0-1.1) Eosinophils # (Auto) 0.0x10^3/uL (0.0-0.7) Basophils # (Auto) 0.0x10^3/uL (0.0-0.2) Sodium Level 139mmol/L (136-145) Potassium Level 4.6mmol/L (3.5-5.1) Chloride Level 103mmol/L (98-107) Carbon Dioxide Level 29mmol/L (21-32) Anion Gap 7 (6-14) Blood Urea Nitrogen 38mg/dL (8-26) Creatinine 1.8mg/dL (0.7-1.3) Estimated GFR (Cockcroft-Gault) 36.0 BUN/Creatinine Ratio 21 (6-20) Glucose Level 129mg/dL (70-99) Calcium Level 7.4mg/dL (8.5-10.1) Phosphorus Level 3.5mg/dL (2.6-4.7) Total Bilirubin 0.3mg/dL (0.2-1.0) Aspartate Amino Transf (AST/SGOT) 60U/L (15-37) Alanine Aminotransferase (ALT/SGPT) 63U/L (16-63) Alkaline Phosphatase 91U/L (46-116) Total Protein 5.4g/dL (6.4-8.2) Albumin 1.5g/dL (3.4-5.0) Albumin/Globulin Ratio 0.4 (1.0-1.7) Micro Klebsiella pneumoniae 50,000-100,000 colony forming units per mL ANTIMICROBIAL SUSCEPTIBILITY Final Comment S = Susceptible; I = Intermediate; R = Resistant P = Positive; N = Negative MICS are expressed in micrograms per mL Antibiotic RSLT#1 RSLT#2 RSLT#3 RSLT#4 Amoxicillin/Clavulanic Acid S Ampicillin R Cefepime S Ceftriaxone S Cefuroxime S Cephalothin S Ciprofloxacin S Ertapenem S Gentamicin S Imipenem S Levofloxacin S Nitrofurantoin S Piperacillin S Tetracycline S Tobramycin S Trimethoprim/Sulfa S Objective Assessment Fever Acute anemia Coarse right breath sounds ? aspiration. ? LLL infiltrate TAYLOR Klebsiella UTI 10/04 although a lot of squamous cells present on UA Small bowel obstruction - seems improved and no NGT Left hand pain and warmth - better with less edema N/V - better Dislodgement of NGT - out Hiatal hernia + MRSA Cipro allergy. Seizure disorder Parkinson's disease h/o UTI: Citrobacter & Klebsiella h/o E. coli bacteremia Plan Plan of Care Cont Zyvox/Zosyn/Micafungin F/u labs and cults PRBCs today SAMI MARTINEZ MD Oct 27, 2016 09:29
--- NOTE | 2016-10-27 10:30 | PDOC ---
PROGRESS NOTES Subjective Subjective feels better. spiked a fever 102 .2 last night and pancultured and iv micafungin added to zyvox adn xoysn. hgb 6.1. joni give 2 units prbc now. no active bleeding seen. stopped lovenox and switched to scd . just received dulcolax suppository. afebrile now Objective Objective Vital Signs Date Time Temp Pulse Resp B/P Pulse Ox O2 Delivery O2 Flow Rate FiO2 10/27/16 09:12 96 Nasal Cannula 3.0 10/27/16 07:00 98.2 89 16 98/40 98.2 Intake and Output 10/27/16 07:00 Intake Total 2215 ml Output Total 1725 ml Balance 490 ml Intake Oral 0 ml IV Total 2215 ml Output Urine Total 1725 ml Physical Exam Abdomen: Soft Heart: Regular rate, Normal S1, Normal S2 Extremities: No edema General: Alert HEENT: Atraumatic Lungs: Other (decreased breath sounds) Neuro: Normal speech Psych/Mental Status: Mood NL Skin: No rashes Assessment Assessment Problems Medical Problems:Small-bowel obstruction resolved exploratory laparotomy 10/13/16. lysis of adhesions. bowel viable. post op ileus. prolonged 2. Seizure disorder. 3. Parkinson's disease. 4. Hypothyroidism. 5. Peripheral neuropathy. 6. Hypertension. bp low 7. Chronic kidney disease stage III. klebsiella uti treated suspected gout synovitis resolved peripheral edema critical illness myopathy hematemesis once resolved paroxysmal atrial fibrillation. not a good candidate for anticoagulants fever LLL lung infiltrate anemia (1) SBO (small bowel obstruction) Status: Acute Plan Plan of Care continue iv zyvox and zosyn and micafungin await blood and urine cultures transfuse prbc today Comment Review of Relevant I have reviewed the following items [place] (where applicable) has been applied. Labs Laboratory Tests Test 10/26/16 06:00 10/27/16 04:00 Sodium Level 141mmol/L (136-145) 139mmol/L (136-145) Potassium Level 4.5mmol/L (3.5-5.1) 4.6mmol/L (3.5-5.1) Chloride Level 105mmol/L (98-107) 103mmol/L (98-107) Carbon Dioxide Level 28mmol/L (21-32) 29mmol/L (21-32) Anion Gap 8 (6-14) 7 (6-14) Blood Urea Nitrogen 37mg/dL (8-26) 38mg/dL (8-26) Creatinine 1.6mg/dL (0.7-1.3) 1.8mg/dL (0.7-1.3) Estimated GFR (Cockcroft-Gault) 41.3 36.0 Glucose Level 123mg/dL (70-99) 129mg/dL (70-99) Calcium Level 7.6mg/dL (8.5-10.1) 7.4mg/dL (8.5-10.1) Phosphorus Level 3.7mg/dL (2.6-4.7) 3.5mg/dL (2.6-4.7) Albumin 1.8g/dL (3.4-5.0) 1.5g/dL (3.4-5.0) White Blood Count 4.5x10^3/uL (4.0-11.0) Red Blood Count 1.93x10^6/uL (4.30-5.70) Hemoglobin 6.1g/dL (13.0-17.5) Hematocrit 18.7% (39.0-53.0) Mean Corpuscular Volume 97fL (79-100) Mean Corpuscular Hemoglobin 32pg (25-35) Mean Corpuscular Hemoglobin Concent 33g/dL (31-37) Red Cell Distribution Width 15.7% (11.5-14.5) Platelet Count 241x10^3/uL (140-400) Neutrophils (%) (Auto) 75% (31-73) Lymphocytes (%) (Auto) 14% (24-48) Monocytes (%) (Auto) 10% (0-9) Eosinophils (%) (Auto) 1% (0-3) Basophils (%) (Auto) 1% (0-3) Neutrophils # (Auto) 3.3x10^3uL (1.8-7.7) Lymphocytes # (Auto) 0.6x10^3/uL (1.0-4.8) Monocytes # (Auto) 0.4x10^3/uL (0.0-1.1) Eosinophils # (Auto) 0.0x10^3/uL (0.0-0.7) Basophils # (Auto) 0.0x10^3/uL (0.0-0.2) BUN/Creatinine Ratio 21 (6-20) Total Bilirubin 0.3mg/dL (0.2-1.0) Aspartate Amino Transf (AST/SGOT) 60U/L (15-37) Alanine Aminotransferase (ALT/SGPT) 63U/L (16-63) Alkaline Phosphatase 91U/L (46-116) Total Protein 5.4g/dL (6.4-8.2) Albumin/Globulin Ratio 0.4 (1.0-1.7) Laboratory Tests Test 10/27/16 04:00 White Blood Count 4.5x10^3/uL (4.0-11.0) Red Blood Count 1.93x10^6/uL (4.30-5.70) Hemoglobin 6.1g/dL (13.0-17.5) Hematocrit 18.7% (39.0-53.0) Mean Corpuscular Volume 97fL (79-100) Mean Corpuscular Hemoglobin 32pg (25-35) Mean Corpuscular Hemoglobin Concent 33g/dL (31-37) Red Cell Distribution Width 15.7% (11.5-14.5) Platelet Count 241x10^3/uL (140-400) Neutrophils (%) (Auto) 75% (31-73) Lymphocytes (%) (Auto) 14% (24-48) Monocytes (%) (Auto) 10% (0-9) Eosinophils (%) (Auto) 1% (0-3) Basophils (%) (Auto) 1% (0-3) Neutrophils # (Auto) 3.3x10^3uL (1.8-7.7) Lymphocytes # (Auto) 0.6x10^3/uL (1.0-4.8) Monocytes # (Auto) 0.4x10^3/uL (0.0-1.1) Eosinophils # (Auto) 0.0x10^3/uL (0.0-0.7) Basophils # (Auto) 0.0x10^3/uL (0.0-0.2) Sodium Level 139mmol/L (136-145) Potassium Level 4.6mmol/L (3.5-5.1) Chloride Level 103mmol/L (98-107) Carbon Dioxide Level 29mmol/L (21-32) Anion Gap 7 (6-14) Blood Urea Nitrogen 38mg/dL (8-26) Creatinine 1.8mg/dL (0.7-1.3) Estimated GFR (Cockcroft-Gault) 36.0 BUN/Creatinine Ratio 21 (6-20) Glucose Level 129mg/dL (70-99) Calcium Level 7.4mg/dL (8.5-10.1) Phosphorus Level 3.5mg/dL (2.6-4.7) Total Bilirubin 0.3mg/dL (0.2-1.0) Aspartate Amino Transf (AST/SGOT) 60U/L (15-37) Alanine Aminotransferase (ALT/SGPT) 63U/L (16-63) Alkaline Phosphatase 91U/L (46-116) Total Protein 5.4g/dL (6.4-8.2) Albumin 1.5g/dL (3.4-5.0) Albumin/Globulin Ratio 0.4 (1.0-1.7) Microbiology 10/13/16 Blood Culture - Final, Complete NO GROWTH AFTER 5 DAYS 10/26/16 Gram Stain - Final, Complete 10/13/16 Urine Culture - Final, Complete 10/13/16 Urine Culture Result 1 (MANDEEP) - Final, Complete Medications Current Medications Fentanyl Citrate 50 mcg 50 mcg PRN Q15MIN PRN IV PAIN GREATER THAN 3/10 Last administered on 09/30/16at 19:35; Start 09/30/16 at 17:30; Stop 10/01/16 at 04 :24; Status DC Lactated Ringer's (Iv Lactated Ringers) 1,000 ml @ 100 mls/hr Q10H IV Last administered on 09/30/16at 19:35; Start 09/30/16 at 17:28; Stop 10/01/16 at 03 :27; Status DC Ondansetron HCl (Zofran) 4 mg 1X ONCE IV Last administered on 09/30/16at 17:44 ; Start 09/30/16 at 17:30; Stop 09/30/16 at 17:32; Status DC Fentanyl Citrate (Fentanyl 2ml Vial) 50 mcg 1X ONCE IV ; Start 09/30/16 at 19: 15; Stop 10/01/16 at 04:24; Status DC Ondansetron HCl (Zofran) 4 mg PRN Q8HRS PRN IV NAUSEA/VOMITING Last administered on 09/30/16at 22:07; Start 09/30/16 at 19:15; Stop 10/01/16 at 19 :14; Status DC Fentanyl Citrate 50 mcg 50 mcg PRN Q2HR PRN IV PAIN Last administered on at 16:54; Start 09/30/16 at 19:15; Stop 10/01/16 at 19:14; Status DC Sodium Chloride 1,000 ml @ 100 mls/hr Q10H IV ; Start 09/30/16 at 19:30; Stop 10/01/16 at 04:24; Status DC Potassium Chloride/Dextrose/ Sod Cl (KCl 20 Meq In D5W-1/2 NS) 1,000 ml @ 125 mls/hr Q8H IV Last administered on 10/04/16at 06:02; Start 09/30/16 at 20:00; Stop 10/04/16 at 10:21; Status DC Enoxaparin Sodium 40 mg 40 mg Q24H SQ Last administered on 10/13/16 08:14; Start 10/01/16 at 09:00; Stop 10/13/16 at 08:36; Status DC Levetiracetam/ Sodium Chloride (Keppra/Iv Sodium Chloride 0.9% 100ml) 105 ml @ 400 mls/hr Q12HR IV Last administered on 10/05/16 09:30; Start 09/30/16 at 21: 00; Stop 10/05/16 at 10:24; Status DC Morphine Sulfate 2 mg PRN Q4HRS PRN IV SEVERE PAIN Last administered on 10:13; Start 09/30/16 at 19:30; Stop 10/05/16 at 10:24; Status DC Acetaminophen (Tylenol) 650 mg PRN Q6HRS PRN ME MILD PAIN / TEMP; Start at 19:30; Stop 10/05/16 at 10:24; Status DC Ondansetron HCl (Zofran) 4 mg PRN Q6HRS PRN IV NAUSEA/VOMITING Last administered on 10/07/16 08:28; Start 09/30/16 at 19:30; Stop 10/09/16 at 12:08 ; Status DC Benzocaine (Hurricaine One) 1 spray STK-MED ONCE .ROUTE ; Start 09/30/16 at 19: 51; Stop 09/30/16 at 19:52; Status DC Morphine Sulfate 4 mg PRN Q4HRS PRN IV PAIN Last administered on 10/05/16 08:08 ; Start 10/01/16 at 20:00; Stop 10/05/16 at 10:24; Status DC Clonidine HCl 1 patch 1 patch WEEKLY TD Last administered on 10/03/16at 12:30; Start 10/03/16 at 10:00; Stop 10/05/16 at 10:24; Status DC Piperacillin Sod/ Tazobactam Sod/ Sodium Chloride (Zosyn/Iv Sodium Chloride 0.9 % 50ml) 50 ml @ 100 mls/hr Q6HRS IV Last administered on 10/09/16 06:26; Start 10/04/16 at 11:00; Stop 10/09/16 at 10:55; Status DC Vancomycin HCl 1 each 1 each PRN DAILY PRN MC SEE COMMENTS Last administered on 10/07/16 11:11; Start 10/04/16 at 10:15; Stop 10/07/16 at 11:28; Status DC Vancomycin HCl/ Sodium Chloride (Iv Sodium Chloride 0.9% 250ml) 250 ml @ 250 mls/hr Q24H IV ; Start 10/04/16 at 10:15; Status UNV Labetalol HCl (Normodyne) 20 mg PRN Q6HRS PRN IVP HYPERTENSION, SEE COMMENTS; Start 10/04/16 at 10:15; Stop 10/05/16 at 10:24; Status DC Hydralazine HCl 10 mg 10 mg PRN Q6HRS PRN IVP ELEVATED BP, SEE COMMENTS Last administered on 10/06/16 19:17; Start 10/04/16 at 10:15; Stop 10/12/16 at 10:40 ; Status DC Amino Acids/ Glycerin/ Electrolytes 1,000 ml @ 40 mls/hr Q24H IV Last administered on 10/06/16 09:59; Start 10/04/16 at 10:15; Stop 10/07/16 at 09:06 ; Status DC Vancomycin HCl 2 gm/Sodium Chloride 500 ml @ 250 mls/hr 1X ONCE IV Last administered on 10/04/16at 11:26; Start 10/04/16 at 10:45; Stop 10/04/16 at 12 :44; Status DC Vancomycin HCl/ Sodium Chloride (Iv Sodium Chloride 0.9% 500ml Bag) 500 ml @ 250 mls/hr Q24H IV Last administered on 10/06/16 11:47; Start 10/05/16 at 12:00 ; Stop 10/07/16 at 11:28; Status DC Vancomycin HCl 1 each 1X ONCE MC Last administered on 10/06/16 11:30; Start at 11:30; Stop 10/06/16 at 11:31; Status DC Aspirin (Children'S Aspirin) 81 mg [id number] PO Last administered on 10/13/16 08:15; Start 10/05/16 at 11:00; Stop 10/13/16 at 08:29; Status DC Gabapentin (Neurontin) 600 mg QID PO Last administered on 10/13/16 08:14; Start 10/05/16 at 13:00; Stop 10/14/16 at 08:47; Status DC Levetiracetam (Keppra) 250 mg BID PO Last administered on 10/13/16 08:17; Start 10/05/16 at 11:00; Stop 10/14/16 at 08:47; Status DC Levothyroxine Sodium (Synthroid) 100 mcg [id number] PO Last administered on 05:08; Start 10/05/16 at 10:30; Stop 10/14/16 at 08:48; Status DC Metoprolol Succinate (Toprol Xl) 25 mg DAILY PO Last administered on 10/13/16 08:16; Start 10/05/16 at 11:00; Stop 10/14/16 at 08:47; Status DC Pramipexole Dihydrochloride (miraPEX) 0.5 mg [id number] PO Last administered on 10/13 08:15; Start 10/05/16 at 11:00; Stop 10/14/16 at 08:48; Status DC Simvastatin (Zocor) 20 mg HS PO Last administered on 10/12/16 21:07; Start 10/05 at 21:00; Stop 10/14/16 at 08:48; Status DC Carbidopa/Levodopa (Sinemet Cr) 1 tab.sa TID PO Last administered on 10/13/16 08:16; Start 10/05/16 at 11:00; Stop 10/14/16 at 08:48; Status DC Tamsulosin HCl (Flomax) 0.4 mg QHS PO Last administered on 10/12/16 21:07; Start 10/05/16 at 21:00; Stop 10/14/16 at 08:48; Status DC Tramadol HCl (Ultram) 50 mg QID PO Last administered on 10/13/16 08:17; Start 10/05/16 at 13:00; Stop 10/14/16 at 08:48; Status DC Acetaminophen (Tylenol) 650 mg PRN Q4HRS PRN PO MILD PAIN / TEMP Last administered on 10/13/16 00:17; Start 10/05/16 at 10:15; Stop 10/14/16 at 08:48; Status DC Prednisone (Prednisone) 20 mg 1X ONCE PO Last administered on 10/06/16 11:01; Start 10/06/16 at 10:30; Stop 10/06/16 at 10:31; Status DC Prednisone (Prednisone) 10 mg DAILY08 PO Last administered on 10/13/16 08:15; Start 10/07/16 at 08:00; Stop 10/13/16 at 08:29; Status DC Al Hydroxide/Mg Hydroxide (Mylanta Plus Xs) 30 ml PRN Q4HRS PRN PO HEARTBURN / GAS Last administered on 10/12/16 21:07; Start 10/07/16 at 08:45; Stop 10/14/16 at 08:48; Status DC Pantoprazole Sodium (Protonix) 40 mg DAILYAC PO Last administered on 10/13/16 05:08; Start 10/07/16 at 10:00; Stop 10/13/16 at 06:45; Status DC Furosemide 40 mg 40 mg DAILY PO Last administered on 10/08/16 08:42; Start 10/07 at 10:00; Stop 10/08/16 at 08:56; Status DC Sodium Chloride (Iv Sodium Chloride 0.45%) 1,000 ml @ 60 mls/hr CONT PRN IV . ; Start 10/08/16 at 09:00; Stop 10/08/16 at 16:06; Status DC Bisacodyl 10 mg 10 mg 1X ONCE ME Last administered on 10/08/16 10:11; Start at 09:30; Stop 10/08/16 at 09:31; Status DC Sodium Chloride (Iv Sodium Chloride 0.45%) 1,000 ml @ 60 mls/hr [id number] IV Last administered on 10/09/16 02:52; Start 10/08/16 at 10:15; Stop 10/09/16 at 12: 00; Status DC Cefpodoxime Proxetil (Vantin) 200 mg BID PO ; Start 10/09/16 at 11:00; Stop at 12:08; Status DC Cefpodoxime Proxetil (Vantin) 100 mg BID PO Last administered on 10/13/16 08:16 ; Start 10/09/16 at 21:00; Stop 10/13/16 at 08:29; Status DC Ondansetron HCl (Zofran) 4 mg STK-MED ONCE .ROUTE Last administered on 01:24; Start 10/13/16 at 01:19; Stop 10/13/16 at 01:20; Status DC Ondansetron HCl (Zofran) 4 mg PRN Q6HRS PRN IV NAUSEA/VOMITING Last administered on 10/27/16 00:39; Start 10/13/16 at 02:00 Pantoprazole Sodium 40 mg 40 mg DAILYAC IVP Last administered on 10/27/16 09: 08; Start 10/13/16 at 07:30 Dextrose/Sodium Chloride (Iv D5% - NS) 1,000 ml @ 60 mls/hr [id number] IV Last administered on 10/13/16 09:25; Start 10/13/16 at 08:30; Stop 10/13/16 at 11:01; Status DC Sodium Polystyrene Sulfonate 15 gm 15 gm 1X ONCE PO Last administered on 09:26; Start 10/13/16 at 08:30; Stop 10/13/16 at 08:31; Status DC Piperacillin Sod/ Tazobactam Sod 3.375 gm/Sodium Chloride 50 ml @ 100 mls/hr Q6HRS IV Last administered on 10/19/16t 12:42; Start 10/13/16 at 09:00; Stop at 15:06; Status DC Dextrose/Sodium Chloride (Iv D5% - 1/2 NS) 1,000 ml @ 50 mls/hr Q20H IV Last administered on 10/17/16t 00:16; Start 10/13/16 at 11:00; Stop 10/17/16 at 12:23 ; Status DC Ondansetron HCl (Zofran) 4 mg PRN Q6HRS PRN IV Nausea 1ST CHOICE; Start at 12:30; Stop 10/14/16 at 11:07; Status DC Fentanyl Citrate (Fentanyl 2ml Vial) 25 mcg PRN Q5MIN PRN IV MILD PAIN; Start 10/13/16 at 12:30; Stop 10/14/16 at 11:04; Status DC Fentanyl Citrate (Fentanyl 2ml Vial) 50 mcg PRN Q5MIN PRN IV MODERATE PAIN; Start 10/13/16 at 12:30; Stop 10/14/16 at 11:04; Status DC Morphine Sulfate 1 mg 1 mg PRN Q10MIN PRN IV SEVERE PAIN; Start 10/13/16 at 12: 30; Stop 10/14/16 at 11:00; Status DC Lactated Ringer's (Iv Lactated Ringers) 1,000 ml @ 0 mls/hr Q0M IV ; Start 10/13 at 12:17; Stop 10/14/16 at 00:16; Status DC Lidocaine HCl 2 ml 1X PRN PRN ID IV START; Start 10/13/16 at 12:30; Stop at 16:03; Status DC Hydromorphone HCl (Dilaudid) 0.5 mg PRN Q10MIN PRN IV SEV PAIN,Second choice; Start 10/13/16 at 12:30; Stop 10/14/16 at 11:04; Status DC Prochlorperazine Edisylate (Compazine) 5 mg PACU PRN PRN IV NAUSEA; Start at 12:30; Stop 10/14/16 at 11:00; Status DC Fentanyl Citrate (Fentanyl 2ml Vial) 50 mcg PRN Q5MIN PRN IV Acute Pain Last administered on 10/14/16t 10:04; Start 10/13/16 at 13:00; Stop 10/14/16 at 11:04 ; Status DC Morphine Sulfate 4 mg PRN Q10MIN PRN IV Moderate Pain; Start 10/13/16 at 13:00; Stop 10/14/16 at 11:00; Status DC Hydromorphone HCl (Dilaudid) 0.4 mg PRN Q10MIN PRN IV Moderate to severe pain; Start 10/13/16 at 13:00; Stop 10/14/16 at 11:04; Status DC Meperidine HCl (Demerol) 12.5 mg PRN Q5MIN PRN IV SHIVERING; Start 10/13/16 at 13:00; Stop 10/14/16 at 11:00; Status DC Prochlorperazine Edisylate (Compazine) 5 mg PRN Q6HRS PRN IV Nausea/Vomiting, 1st Choice; Start 10/13/16 at 13:00; Stop 10/14/16 at 11:00; Status DC Diphenhydramine HCl (Benadryl) 12.5 mg PRN Q2HR PRN IV ITCHING; Start 10/13/16 at 13:00; Stop 10/14/16 at 11:00; Status DC Midazolam HCl (Versed) 2 mg PRN 1X PRN IV PRIOR TO PROCEDURE; Start 10/13/16 at 13:00; Stop 10/14/16 at 11:07; Status DC Midazolam HCl (Versed) 1 mg PRN 1X PRN IV PRIOR TO PROCEDURE; Start 10/13/16 at 13:00; Stop 10/14/16 at 11:07; Status DC Fentanyl Citrate (Fentanyl 2ml Vial) 25 mcg PRN Q5MIN PRN IV X 2 DOSES FOR PAIN ; Start 10/13/16 at 13:00; Stop 10/14/16 at 11:04; Status DC Fentanyl Citrate 50 mcg 50 mcg PRN Q5MIN PRN IV X 2 DOSES FOR PAIN; Start at 13:00; Stop 10/14/16 at 11:04; Status DC Lactated Ringer's (Iv Lactated Ringers) 1,000 ml @ 125 mls/hr Q8H IV Last administered on 10/13/16t 13:30; Start 10/13/16 at 12:48; Stop 10/14/16 at 00:47; Status DC Lidocaine HCl 2 ml 1X PRN PRN ID IV START; Start 10/13/16 at 13:00; Stop at 16:03; Status DC Fentanyl Citrate (Fentanyl 2ml Vial) 25 mcg PRN Q2HR PRN IV PAIN MOD TO SEV; Start 10/13/16 at 20:30; Stop 10/14/16 at 14:15; Status DC Fentanyl Citrate (Fentanyl 2ml Vial) 50 mcg PRN Q2HR PRN IV PAIN MOD TO SEV Last administered on 10/14/16 12:02; Start 10/13/16 at 20:30; Stop 10/14/16 at 14:15; Status DC Enoxaparin Sodium (Lovenox 40mg Syringe) 40 mg Q24H SQ Last administered on 09:18; Start 10/14/16 at 09:00; Stop 10/27/16 at 06:34; Status DC Fentanyl Citrate 100 mcg 100 mcg STK-MED ONCE .ROUTE ; Start 10/13/16 at 13:27; Stop 10/14/16 at 07:31; Status DC Propofol (Diprivan) 20 ml @ As Directed STK-MED ONCE IV ; Start 10/13/16 at 13:27 ; Stop 10/14/16 at 07:31; Status DC Rocuronium [place] (Zemuron) 50 mg STK-MED ONCE .ROUTE ; Start 10/13/16 at 13:27 ; Stop 10/14/16 at 07:31; Status DC Lidocaine HCl 100 mg STK-MED ONCE .ROUTE ; Start 10/13/16 at 13:27; Stop at 07:31; Status DC Fentanyl Citrate (Fentanyl 2ml Vial) 100 mcg STK-MED ONCE .ROUTE ; Start at 13:27; Stop 10/14/16 at 07:31; Status DC Ephedrine Sulfate (Akovaz) 50 mg STK-MED ONCE .ROUTE ; Start 10/13/16 at 14:00; Stop 10/14/16 at 07:31; Status DC Phenylephrine HCl 1 mg STK-MED ONCE IV ; Start 10/13/16 at 14:25; Stop 10/14/16 at 07:31; Status DC Desflurane (Suprane) 60 ml STK-MED ONCE IH ; Start 10/13/16 at 14:25; Stop at 07:31; Status DC Dexamethasone Sodium Phosphate (Decadron) 20 mg STK-MED ONCE .ROUTE ; Start 10/13 at 14:25; Stop 10/14/16 at 07:31; Status DC Ondansetron HCl (Zofran) 4 mg STK-MED ONCE .ROUTE ; Start 10/13/16 at 14:25; Stop 10/14/16 at 07:31; Status DC Famotidine (Pepcid) 20 mg STK-MED ONCE .ROUTE ; Start 10/13/16 at 14:25; Stop 07/21 at 07:31; Status DC Rocuronium [place] (Zemuron) 50 mg STK-MED ONCE .ROUTE ; Start 10/13/16 at 16:19 ; Stop 10/14/16 at 07:31; Status DC Fentanyl Citrate (Fentanyl 2ml Vial) 100 mcg STK-MED ONCE .ROUTE ; Start at 16:21; Stop 10/14/16 at 07:31; Status DC Desflurane (Suprane) 90 ml STK-MED ONCE IH ; Start 10/13/16 at 16:53; Stop at 07:31; Status DC Glycopyrrolate (Robinul) 1 mg STK-MED ONCE .ROUTE ; Start 10/13/16 at 17:00; Stop 10/14/16 at 07:31; Status DC Neostigmine Methylsulfate 5 mg STK-MED ONCE .ROUTE ; Start 10/13/16 at 17:00; Stop 10/14/16 at 07:31; Status DC Phenylephrine HCl 1 mg STK-MED ONCE IV ; Start 10/13/16 at 18:14; Stop 10/14/16 at 07:31; Status DC Fentanyl Citrate (Fentanyl 2ml Vial) 100 mcg STK-MED ONCE .ROUTE ; Start at 18:20; Stop 10/14/16 at 07:31; Status DC Fentanyl Citrate 100 mcg 100 mcg STK-MED ONCE .ROUTE ; Start 10/13/16 at 19:17; Stop 10/14/16 at 07:31; Status DC Levetiracetam 500 mg/Sodium Chloride 105 ml @ 400 mls/hr Q12HR IV Last administered on 10/27/16 09:10; Start 10/14/16 at 09:00 Amino Acids/ Glycerin/ Electrolytes (Procalamine) 1,000 ml @ 80 mls/hr [id number] IV Last administered on 10/16/16 09:16; Start 10/14/16 at 11:15; Stop at 21:59; Status DC Morphine Sulfate 2 mg PRN Q4HRS PRN IV MODERATE PAIN Last administered on 00:57; Start 10/14/16 at 14:15 Morphine Sulfate 4 mg PRN Q4HRS PRN IV SEVERE PAIN Last administered on 09:12; Start 10/14/16 at 14:30 Info 1 each 1 each PRN DAILY PRN MC SEE COMMENTS Last administered on 10:52; Start 10/16/16 at 11:30 Sodium Chloride/ Potassium Chloride/ Potassium Phosphate/ Magnesium Sulfate/ Calcium Gluconate/ Multivitamins/ Minerals/Chromium/ Copper/Manganese/ Seleni/Zn /Total Parenteral Nutrition/Amino Acids/Dextrose/ Fat Emulsion Intravenous ( Sodium Chloride/ Potassium Phospha... 1,512 ml @ 63 mls/hr TPN CONT IV ; Start 10/16/16 at 22:00; Stop 10/17/16 at 12:50; Status DC Lidocaine/Sodium Bicarbonate 20 ml 20 ml STK-MED ONCE IJ ; Start 10/17/16 at 08: 20; Stop 10/17/16 at 08:21; Status DC Heparin Sodium/ Sodium Chloride 500 ml @ As Directed STK-MED ONCE .ROUTE ; Start 10/17/16 at 08:20; Stop 10/17/16 at 08:21; Status DC Lidocaine/Sodium Bicarbonate (Buffered Lidocaine 1%) 3 ml 1X ONCE IJ Last administered on 10/17/16 08:30; Start 10/17/16 at 08:30; Stop 10/17/16 at 08:31 ; Status DC Heparin Sodium/ Sodium Chloride 60 unit 1X ONCE IV Last administered on 08:30; Start 10/17/16 at 08:30; Stop 10/17/16 at 08:31; Status DC Iohexol (Omnipaque 300 Mg/ml) 50 ml STK-MED ONCE .ROUTE ; Start 10/17/16 at 09: 02; Stop 10/17/16 at 09:03; Status DC Iohexol (Omnipaque 300 Mg/ml) 43 ml 1X ONCE IART Last administered on 08:45; Start 10/17/16 at 09:30; Stop 10/17/16 at 09:33; Status DC Info (Do NOT chart on this entry -- for MONITORING) 1 each PRN DAILY PRN MC SEE COMMENTS; Start 10/17/16 at 09:45; Stop 10/19/16 at 09:44; Status DC Clonidine HCl (Catapres Tts-2) 1 patch WEEKLY TD Last administered on 09:12; Start 10/17/16 at 11:00; Stop 10/26/16 at 09:54; Status DC Labetalol HCl 20 mg 20 mg PRN Q6HRS PRN IVP HYPERTENSION, SEE COMMENTS Last administered on 10/26/16 17:55; Start 10/17/16 at 10:30 Sodium Chloride 1,000 ml @ 60 mls/hr [id number] IV Last administered on 06:32; Start 10/17/16 at 12:30; Stop 10/19/16 at 10:06; Status DC Sodium Chloride 90 meq/Potassium Chloride 50 meq/ Potassium Phosphate 13.6 mmol/ Magnesium Sulfate 10 meq/ Calcium Gluconate 10 meq/ Multivitamins/ Minerals 10 ml/ Chromium/Copper/ Manganese/Seleni/ Zn 1 ml/Total Parenteral Nutrition/Amino Acids/Dextrose/ Fat Emulsion Intravenous 1,512 ml @ 63 mls/hr TPN CONT IV Last administered on 10/17/16 21:09; Start 10/17/16 at 22:00; Stop 10/18/16 at 21:59; Status DC Sodium Chloride/ Potassium Chloride/ Potassium Phosphate/ Magnesium Sulfate/ Calcium Gluconate/ Multivitamins/ Minerals/Chromium/ Copper/Manganese/ Seleni/Zn /Total Parenteral Nutrition/Amino Acids/Dextrose/ Fat Emulsion Intravenous ( Sodium Chloride/ Potassium Phospha... 1,512 ml @ 63 mls/hr TPN CONT IV Last administered on 10/18/16 21:24; Start 10/18/16 at 22:00; Stop 10/19/16 at 21:59 ; Status DC Furosemide 20 mg 20 mg 1X ONCE IVP Last administered on 10/19/16 11:01; Start 10/19/16 at 10:30; Stop 10/19/16 at 10:31; Status DC Sodium Chloride 90 meq/Sodium Acetate 40 meq/ Potassium Chloride 50 meq/ Potassium Phosphate 13.6 mmol/Magnesium Sulfate 10 meq/ Calcium Gluconate 10 meq / Multivitamins/ Minerals 10 ml/ Chromium/Copper/ Manganese/Seleni/ Zn 1 ml/ Total Parenteral Nutrition/Amino Acids/Dextro... 1,920 ml @ 80 mls/hr TPN CONT IV Last administered on 10/19/16 22:29; Start 10/19/16 at 22:00; Stop at 21:59; Status DC Sodium Chloride 1,000 ml @ 45 mls/hr [id number] IV Last administered on 22:24; Start 10/20/16 at 09:00; Stop 10/21/16 at 09:26; Status DC Magnesium Sulfate/ Dextrose 50 ml @ 25 mls/hr PRN DAILY PRN IV for Mag < 1.7 on am labs; Start 10/20/16 at 13:15 Sodium Chloride/ Sodium Acetate/ Potassium Chloride/ Potassium Phosphate/ Magnesium Sulfate/ Calcium Gluconate/ Multivitamins/ Minerals/Chromium/ Copper/ Manganese/ Seleni/Zn/Total Parenteral Nutrition/Amino Acids/Dextrose/ Fat Emulsion Intravenous (Sodium Chloride/ Potass... 1,920 ml @ 80 mls/hr TPN CONT IV Last administered on 10/20/16 22:23; Start 10/20/16 at 22:00; Stop at 21:59; Status DC Acetaminophen/ Hydrocodone Bitart 1 tab 1 tab PRN Q4HRS PRN PO PAIN Last administered on 10/21/16 23:51; Start 10/21/16 at 09:30; Stop 10/22/16 at 10:39 ; Status DC Sodium Chloride/ Sodium Acetate/ Potassium Chloride/ Potassium Phosphate/ Magnesium Sulfate/ Calcium Gluconate/ Multivitamins/ Minerals/Chromium/ Copper/ Manganese/ Seleni/Zn/Total Parenteral Nutrition/Amino Acids/Dextrose/ Fat Emulsion Intravenous (Sodium Chloride/ Potass... 1,920 ml @ 80 mls/hr TPN CONT IV Last administered on 10/21/16 22:22; Start 10/21/16 at 22:00; Stop at 21:59; Status DC Metoclopramide HCl (Reglan) 10 mg 1X ONCE IV Last administered on 10/22/16 01 :56; Start 10/22/16 at 02:00; Stop 10/22/16 at 02:01; Status DC Lorazepam (Ativan) 1 mg 1X ONCE IV Last administered on 10/22/16 02:35; Start 10/22/16 at 02:30; Stop 10/22/16 at 02:31; Status DC Morphine Sulfate 2 mg PRN Q1HR PRN IV PAIN Last administered on 10/27/16 05:25 ; Start 10/22/16 at 02:30 Famotidine (Pepcid) 20 mg 1X ONCE IVP Last administered on 10/22/16 02:35; Start 10/22/16 at 02:30; Stop 10/22/16 at 02:31; Status DC Hydralazine HCl (Apresoline) 10 mg PRN Q6HRS PRN IVP ELEVATED BP, SEE COMMENTS ; Start 10/22/16 at 10:45 Iohexol (Omnipaque 300 Mg/ml) 60 ml 1X ONCE PO Last administered on 10/22/16 11:43; Start 10/22/16 at 11:00; Stop 10/22/16 at 11:01; Status DC Iohexol (Omnipaque 300 Mg/ml) 60 ml 1X ONCE IV Last administered on 10/22/16 11:19; Start 10/22/16 at 11:00; Stop 10/22/16 at 11:01; Status DC Info 1 each 1 each PRN DAILY PRN MC SEE COMMENTS; Start 10/22/16 at 11:00; Stop 10/24/16 at 10:59; Status DC Sodium Chloride 50 meq/Sodium Acetate 80 meq/ Potassium Chloride 50 meq/ Potassium Phosphate 18 mmol/ Magnesium Sulfate 10 meq/Calcium Gluconate 10 meq/ Multivitamins/ Minerals 10 ml/ Chromium/Copper/ Manganese/Seleni/ Zn 1 ml/Total Parenteral Nutrition/Amino Acids/Dextrose/ Fat Emuls... 1,920 ml @ 80 mls/hr TPN CONT IV Last administered on 10/22/16 21:46; Start 10/22/16 at 22:00; Stop 10/23/16 at 21:59; Status DC Levothyroxine Sodium/Sodium Chloride (Synthroid/Iv Sodium Chloride 0.9% 50ml) 5 ml @ 100 mls/hr DAILY IVP Last administered on 10/27/16 09:09; Start 10/23/16 at 14:00 Furosemide (Lasix) 20 mg 1X ONCE IVP Last administered on 10/23/16 12:45; Start 10/23/16 at 12:30; Stop 10/23/16 at 12:31; Status DC Alteplase, Recombinant 2 mg 2 mg 1X ONCE INT CAT Last administered on 12:45; Start 10/23/16 at 12:30; Stop 10/23/16 at 12:31; Status DC Sodium Chloride/ Sodium Acetate/ Potassium Chloride/ Potassium Phosphate/ Magnesium Sulfate/ Calcium Gluconate/ Multivitamins/ Minerals/Chromium/ Copper/ Manganese/ Seleni/Zn/Total Parenteral Nutrition/Amino Acids/Dextrose/ Fat Emulsion Intravenous (Sodium Chloride/ Potass... 1,920 ml @ 80 mls/hr TPN CONT IV Last administered on 10/23/16 21:37; Start 10/23/16 at 22:00; Stop at 21:59; Status DC Acetaminophen 650 mg 650 mg PRN Q6HRS PRN ME MILD PAIN / TEMP Last administered on 10/23/16 23:09; Start 10/23/16 at 23:00; Stop 10/26/16 at 10:04 ; Status DC Potassium Chloride/Dextrose/ Sod Cl 1,000 ml @ 80 mls/hr [id number] IV Last administered on 10/24/16 10:08; Start 10/24/16 at 09:30; Stop 10/24/16 at 13:58 ; Status DC Sodium Chloride 50 meq/Sodium Acetate 80 meq/ Potassium Chloride 50 meq/ Potassium Phosphate 18 mmol/ Magnesium Sulfate 10 meq/Calcium Gluconate 10 meq/ Multivitamins/ Minerals 10 ml/ Chromium/Copper/ Manganese/Seleni/ Zn 1 ml/Total Parenteral Nutrition/Amino Acids/Dextrose/ Fat Emuls... 1,920 ml @ 80 mls/hr TPN CONT IV Last administered on 10/24/16 22:10; Start 10/24/16 at 22:00; Stop 10/25/16 at 21:59; Status DC Sodium Chloride (Iv Sodium Chloride 0.45%) 1,000 ml @ 45 mls/hr [id number] IV Last administered on 10/24/16 14:00; Start 10/24/16 at 14:00; Stop 10/25/16 at 11:47; Status DC Albuterol/ Ipratropium (Duoneb) 3 ml RTQID NEB Last administered on 10/27/16 07:32; Start 10/25/16 at 12:00 Albuterol Sulfate (Ventolin Neb Soln) 2.5 mg PRN Q4HRS PRN NEB SOA; Start 10/25 at 12:00 Furosemide 40 mg 40 mg 1X ONCE IVP Last administered on 10/25/16 13:49; Start 10/25/16 at 11:45; Stop 10/25/16 at 11:53; Status DC Sodium Chloride 50 meq/Sodium Acetate 80 meq/ Potassium Chloride 50 meq/ Potassium Phosphate 18 mmol/ Magnesium Sulfate 10 meq/Calcium Gluconate 10 meq/ Multivitamins/ Minerals 10 ml/ Chromium/Copper/ Manganese/Seleni/ Zn 1 ml/Total Parenteral Nutrition/Amino Acids/Dextrose/ Fat Emuls... 1,920 ml @ 80 mls/hr TPN CONT IV Last administered on 10/25/16 21:06; Start 10/25/16 at 22:00; Stop 10/26/16 at 21:59; Status DC Albumin Human (Albuminar) 100 ml @ 100 mls/hr 1X ONCE IV Last administered on 10/25/16 18:19; Start 10/25/16 at 16:45; Stop 10/25/16 at 17:44; Status DC Furosemide 40 mg 40 mg 1X ONCE IVP Last administered on 10/25/16 18:24; Start 10/25/16 at 16:45; Stop 10/25/16 at 16:46; Status DC Piperacillin Sod/ Tazobactam Sod 3.375 gm/Sodium Chloride 50 ml @ 100 mls/hr Q8HRS IV Last administered on 10/27/16 05:29; Start 10/26/16 at 10:00 Linezolid (Zyvox Premix) 300 ml @ 300 mls/hr Q12HR IV Last administered on 09:12; Start 10/26/16 at 10:00 Bisacodyl 10 mg 10 mg 1X ONCE ME Last administered on 10/27/16 09:11; Start 10/26/16 at 10:00; Stop 10/26/16 at 10:02; Status DC Sodium Chloride (Iv Sodium Chloride 0.45%) 1,000 ml @ 45 mls/hr [id number] IV Last administered on 10/27/16 09:11; Start 10/26/16 at 10:00 Acetaminophen 650 mg 650 mg PRN Q6HRS PRN ME MILD PAIN / TEMP Last administered on 10/26/16 23:04; Start 10/26/16 at 10:00 Sodium Chloride 50 meq/Sodium Acetate 80 meq/ Potassium Chloride 50 meq/ Potassium Phosphate 18 mmol/ Magnesium Sulfate 10 meq/Calcium Gluconate 10 meq/ Multivitamins/ Minerals 10 ml/ Chromium/Copper/ Manganese/Seleni/ Zn 1 ml/Total Parenteral Nutrition/Amino Acids/Dextrose/ Fat Emuls... 1,920 ml @ 80 mls/hr TPN CONT IV Last administered on 10/26/16 22:02; Start 10/26/16 at 22:00; Stop 10/27/16 at 21:59 Micafungin Sodium/ Dextrose (Mycamine) 100 ml @ 100 mls/hr Q24H IV Last administered on 10/26/16 21:55; Start 10/26/16 at 21:00 Active Scripts Active Hydrocodone-Apap 5-325 (Hydrocodone Bit/Acetaminophen) 1 Each Tablet 1 Tab PO PRN Q6HRS PRN Metoprolol Succinate ( Xl ) (Metoprolol Succinate) 25 Mg Tab.er.24h 25 Mg PO DAILY Reported Flomax (Tamsulosin Hcl) 0.4 Mg Cap.er.24h 1 Cap PO QHS Tramadol Hcl 100 Mg Tab.er.24h 100 Mg PO QID Levetiracetam 250 Mg Tablet 250 Mg PO BID Dulcolax (Bisacodyl) 10 Mg Supp.rect 10 Mg RC PRN DAILY PRN Maalox Advanced Suspension (Mag Hydrox/Al Hydrox/Simeth) 770 Ml Oral.susp 30 Ml PO Q2HR PRN Milk Of Magnesia (Magnesium Hydroxide) 400 Mg/5 Ml Oral.susp 30 Ml PO DAILY PRN Robitussin Cough-Chest Dm Liq (Guaifenesin/Dextromethorphan) 118 Ml Liquid 10 Ml PO Q4HRS PRN Trazodone Hcl 50 Mg Tablet 1 Tab PO QHS Tylenol (Acetaminophen) 325 Mg Tablet 650 Mg PO Q6HRS PRN Pramipexole Dihydrochloride (Pramipexole Di-Hcl) 0.5 Mg Tablet 0.5 Mg PO TID Simvastatin 20 Mg Tablet 1 Tab PO QHS Levothyroxine Sodium 100 Mcg Tablet 1 Tab PO DAILY Gabapentin 800 Mg Tablet 800 Mg PO QID Sinemet 25-100 Mg Tablet (Carbidopa/Levodopa) 1 Each Tablet 2 Tab PO TID Aspirin 81 Mg Tab.chew 1 Tab PO DAILY Vitals/I & O Vital Sign - Last 24 Hours 10/26/16 10/26/16 10/26/16 10/26/16 10:53 11:00 13:27 14:57 Temp 98.6 98.6 Pulse 101 Resp 20 B/P 112/45 O2 Delivery Nasal Cannula Nasal Cannula Nasal Cannula Nasal Cannula O2 Flow Rate 5.0 5.0 5.0 5.0 10/26/16 10/26/16 10/26/16 10/26/16 15:00 17:54 17:55 18:25 Temp 99.8 99.8 Pulse 116 116 Resp 24 B/P 174/73 174/73 Pulse Ox 94 94 94 O2 Delivery Nasal Cannula Nasal Cannula Nasal Cannula O2 Flow Rate 5.0 5.0 5.0 10/26/16 10/26/16 10/26/16 10/26/16 19:00 20:08 20:20 23:43 Temp 102.4 102.2 102.4 102.2 Pulse 68 103 Resp 16 16 B/P 106/40 103/40 Pulse Ox 91 91 93 O2 Delivery Nasal Cannula Nasal Cannula Nasal Cannula Nasal Cannula O2 Flow Rate 5.0 5.0 3.0 5.0 10/27/16 10/27/16 10/27/16 10/27/16 02:57 07:00 07:34 09:12 Temp 100.8 98.2 100.8 98.2 Pulse 90 89 Resp 18 16 B/P 98/39 98/40 Pulse Ox 97 94 96 96 O2 Delivery Nasal Cannula Nasal Cannula Nasal Cannula Nasal Cannula O2 Flow Rate 5.0 5.0 3.0 3.0 Intake and Output 10/26/16 10/26/16 10/27/16 15:00 23:00 07:00 Intake Total 255 ml 1960 ml Output Total 1250 ml 475 ml Balance -995 ml 1485 ml RICHARD [place] MD Oct 27, 2016 10:30
--- NOTE | 2016-10-27 11:16 | PDOC ---
Renal-Progress Notes Subjective Notes Notes NONE History of Present Illness Hx of present illness STABLE Vitals Vitals Vital Signs Date Time Temp Pulse Resp B/P Pulse Ox O2 Delivery O2 Flow Rate FiO2 10/27/16 09:45 96 Nasal Cannula 3.0 10/27/16 07:00 98.2 89 16 98/40 98.2 Weight Weight [ ] I.O. Intake and Output Intake and Output 10/27/16 07:00 Intake Total 2215 ml Output Total 1725 ml Balance 490 ml Intake Oral 0 ml IV Total 2215 ml Output Urine Total 1725 ml Labs Labs Laboratory Tests Test 10/27/16 04:00 White Blood Count 4.5x10^3/uL (4.0-11.0) Red Blood Count 1.93x10^6/uL (4.30-5.70) Hemoglobin 6.1g/dL (13.0-17.5) Hematocrit 18.7% (39.0-53.0) Mean Corpuscular Volume 97fL (79-100) Mean Corpuscular Hemoglobin 32pg (25-35) Mean Corpuscular Hemoglobin Concent 33g/dL (31-37) Red Cell Distribution Width 15.7% (11.5-14.5) Platelet Count 241x10^3/uL (140-400) Neutrophils (%) (Auto) 75% (31-73) Lymphocytes (%) (Auto) 14% (24-48) Monocytes (%) (Auto) 10% (0-9) Eosinophils (%) (Auto) 1% (0-3) Basophils (%) (Auto) 1% (0-3) Neutrophils # (Auto) 3.3x10^3uL (1.8-7.7) Lymphocytes # (Auto) 0.6x10^3/uL (1.0-4.8) Monocytes # (Auto) 0.4x10^3/uL (0.0-1.1) Eosinophils # (Auto) 0.0x10^3/uL (0.0-0.7) Basophils # (Auto) 0.0x10^3/uL (0.0-0.2) Sodium Level 139mmol/L (136-145) Potassium Level 4.6mmol/L (3.5-5.1) Chloride Level 103mmol/L (98-107) Carbon Dioxide Level 29mmol/L (21-32) Anion Gap 7 (6-14) Blood Urea Nitrogen 38mg/dL (8-26) Creatinine 1.8mg/dL (0.7-1.3) Estimated GFR (Cockcroft-Gault) 36.0 BUN/Creatinine Ratio 21 (6-20) Glucose Level 129mg/dL (70-99) Calcium Level 7.4mg/dL (8.5-10.1) Phosphorus Level 3.5mg/dL (2.6-4.7) Total Bilirubin 0.3mg/dL (0.2-1.0) Aspartate Amino Transf (AST/SGOT) 60U/L (15-37) Alanine Aminotransferase (ALT/SGPT) 63U/L (16-63) Alkaline Phosphatase 91U/L (46-116) Total Protein 5.4g/dL (6.4-8.2) Albumin 1.5g/dL (3.4-5.0) Albumin/Globulin Ratio 0.4 (1.0-1.7) Micro Micro Microbiology 10/26/16 Blood Culture - Preliminary, Resulted NO GROWTH AFTER 1 DAY 10/26/16 Gram Stain - Final, Complete 10/13/16 Urine Culture - Final, Complete 10/13/16 Urine Culture Result 1 (MANDEEP) - Final, Complete Review of Systems Constitutional: yes: no symptom reported Physical Exam General Appearance: no apparent distress Skin: warm Respiratory: bilateral CTA Heart: S1S2, RRR Abdomen: soft, bowel sounds present Extremities: pulses present Neurology: alert Assessment Assessment IMP TAYLOR-IMPROVED WITH CR OF 1.8 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
--- NOTE | 2016-10-27 11:51 | PDOC ---
PAZ MONTEJO FRONT OFFICE DIRECTOR 10/27/16 1151: SURGICAL PROGRESS NOTE Subjective fevers 102 hgb drop, to receive blood denies pain, + flatus per his report, forgetful however Vital Signs Vital Signs Date Time Temp Pulse Resp B/P Pulse Ox O2 Delivery O2 Flow Rate FiO2 10/27/16 11:28 Nasal Cannula 3.0 10/27/16 11:00 97.9 89 16 100/37 90 97.9 I&O Intake and Output 10/27/16 07:00 Intake Total 2215 ml Output Total 1725 ml Balance 490 ml Intake Oral 0 ml IV Total 2215 ml Output Urine Total 1725 ml General: Cooperative, No acute distress Abdomen: Soft, No tenderness Labs Laboratory Tests Test 10/26/16 06:00 10/27/16 04:00 Sodium Level 141mmol/L (136-145) 139mmol/L (136-145) Potassium Level 4.5mmol/L (3.5-5.1) 4.6mmol/L (3.5-5.1) Chloride Level 105mmol/L (98-107) 103mmol/L (98-107) Carbon Dioxide Level 28mmol/L (21-32) 29mmol/L (21-32) Anion Gap 8 (6-14) 7 (6-14) Blood Urea Nitrogen 37mg/dL (8-26) 38mg/dL (8-26) Creatinine 1.6mg/dL (0.7-1.3) 1.8mg/dL (0.7-1.3) Estimated GFR (Cockcroft-Gault) 41.3 36.0 Glucose Level 123mg/dL (70-99) 129mg/dL (70-99) Calcium Level 7.6mg/dL (8.5-10.1) 7.4mg/dL (8.5-10.1) Phosphorus Level 3.7mg/dL (2.6-4.7) 3.5mg/dL (2.6-4.7) Albumin 1.8g/dL (3.4-5.0) 1.5g/dL (3.4-5.0) White Blood Count 4.5x10^3/uL (4.0-11.0) Red Blood Count 1.93x10^6/uL (4.30-5.70) Hemoglobin 6.1g/dL (13.0-17.5) Hematocrit 18.7% (39.0-53.0) Mean Corpuscular Volume 97fL (79-100) Mean Corpuscular Hemoglobin 32pg (25-35) Mean Corpuscular Hemoglobin Concent 33g/dL (31-37) Red Cell Distribution Width 15.7% (11.5-14.5) Platelet Count 241x10^3/uL (140-400) Neutrophils (%) (Auto) 75% (31-73) Lymphocytes (%) (Auto) 14% (24-48) Monocytes (%) (Auto) 10% (0-9) Eosinophils (%) (Auto) 1% (0-3) Basophils (%) (Auto) 1% (0-3) Neutrophils # (Auto) 3.3x10^3uL (1.8-7.7) Lymphocytes # (Auto) 0.6x10^3/uL (1.0-4.8) Monocytes # (Auto) 0.4x10^3/uL (0.0-1.1) Eosinophils # (Auto) 0.0x10^3/uL (0.0-0.7) Basophils # (Auto) 0.0x10^3/uL (0.0-0.2) BUN/Creatinine Ratio 21 (6-20) Total Bilirubin 0.3mg/dL (0.2-1.0) Aspartate Amino Transf (AST/SGOT) 60U/L (15-37) Alanine Aminotransferase (ALT/SGPT) 63U/L (16-63) Alkaline Phosphatase 91U/L (46-116) Total Protein 5.4g/dL (6.4-8.2) Albumin/Globulin Ratio 0.4 (1.0-1.7) Laboratory Tests Test 10/27/16 04:00 White Blood Count 4.5x10^3/uL (4.0-11.0) Red Blood Count 1.93x10^6/uL (4.30-5.70) Hemoglobin 6.1g/dL (13.0-17.5) Hematocrit 18.7% (39.0-53.0) Mean Corpuscular Volume 97fL (79-100) Mean Corpuscular Hemoglobin 32pg (25-35) Mean Corpuscular Hemoglobin Concent 33g/dL (31-37) Red Cell Distribution Width 15.7% (11.5-14.5) Platelet Count 241x10^3/uL (140-400) Neutrophils (%) (Auto) 75% (31-73) Lymphocytes (%) (Auto) 14% (24-48) Monocytes (%) (Auto) 10% (0-9) Eosinophils (%) (Auto) 1% (0-3) Basophils (%) (Auto) 1% (0-3) Neutrophils # (Auto) 3.3x10^3uL (1.8-7.7) Lymphocytes # (Auto) 0.6x10^3/uL (1.0-4.8) Monocytes # (Auto) 0.4x10^3/uL (0.0-1.1) Eosinophils # (Auto) 0.0x10^3/uL (0.0-0.7) Basophils # (Auto) 0.0x10^3/uL (0.0-0.2) Sodium Level 139mmol/L (136-145) Potassium Level 4.6mmol/L (3.5-5.1) Chloride Level 103mmol/L (98-107) Carbon Dioxide Level 29mmol/L (21-32) Anion Gap 7 (6-14) Blood Urea Nitrogen 38mg/dL (8-26) Creatinine 1.8mg/dL (0.7-1.3) Estimated GFR (Cockcroft-Gault) 36.0 BUN/Creatinine Ratio 21 (6-20) Glucose Level 129mg/dL (70-99) Calcium Level 7.4mg/dL (8.5-10.1) Phosphorus Level 3.5mg/dL (2.6-4.7) Total Bilirubin 0.3mg/dL (0.2-1.0) Aspartate Amino Transf (AST/SGOT) 60U/L (15-37) Alanine Aminotransferase (ALT/SGPT) 63U/L (16-63) Alkaline Phosphatase 91U/L (46-116) Total Protein 5.4g/dL (6.4-8.2) Albumin 1.5g/dL (3.4-5.0) Albumin/Globulin Ratio 0.4 (1.0-1.7) Problem List Problems Medical Problems: (1) SBO (small bowel obstruction) Status: Acute Assessment/Plan supportive care Problems: KENDRICK CULVER MD 10/28/16 1220: SURGICAL PROGRESS NOTE Assessment/Plan Agree with above Problems: PAZ MONTEJO APRN Oct 27, 2016 11:51 KENDRICK CULVER MD Oct 28, 2016 12:20
[2016-10-27] MEDS: TPN PER PHARMACY MC PRN (12:56)
--- NOTE | 2016-10-27 14:15 | PDOC ---
G I PROGRESS NOTE Subjective "Maybe a little better". Objective No reports of major vomiting, though basin nearby. Physical Exam Lungs clear. RRR Abdomen soft, not particularly tender. Occasional bowel sound heard. Review of Relevant I have reviewed the following items [place] (where applicable) has been applied. Labs Laboratory Tests Test 10/26/16 06:00 10/27/16 04:00 Sodium Level 141mmol/L (136-145) 139mmol/L (136-145) Potassium Level 4.5mmol/L (3.5-5.1) 4.6mmol/L (3.5-5.1) Chloride Level 105mmol/L (98-107) 103mmol/L (98-107) Carbon Dioxide Level 28mmol/L (21-32) 29mmol/L (21-32) Anion Gap 8 (6-14) 7 (6-14) Blood Urea Nitrogen 37mg/dL (8-26) 38mg/dL (8-26) Creatinine 1.6mg/dL (0.7-1.3) 1.8mg/dL (0.7-1.3) Estimated GFR (Cockcroft-Gault) 41.3 36.0 Glucose Level 123mg/dL (70-99) 129mg/dL (70-99) Calcium Level 7.6mg/dL (8.5-10.1) 7.4mg/dL (8.5-10.1) Phosphorus Level 3.7mg/dL (2.6-4.7) 3.5mg/dL (2.6-4.7) Albumin 1.8g/dL (3.4-5.0) 1.5g/dL (3.4-5.0) White Blood Count 4.5x10^3/uL (4.0-11.0) Red Blood Count 1.93x10^6/uL (4.30-5.70) Hemoglobin 6.1g/dL (13.0-17.5) Hematocrit 18.7% (39.0-53.0) Mean Corpuscular Volume 97fL (79-100) Mean Corpuscular Hemoglobin 32pg (25-35) Mean Corpuscular Hemoglobin Concent 33g/dL (31-37) Red Cell Distribution Width 15.7% (11.5-14.5) Platelet Count 241x10^3/uL (140-400) Neutrophils (%) (Auto) 75% (31-73) Lymphocytes (%) (Auto) 14% (24-48) Monocytes (%) (Auto) 10% (0-9) Eosinophils (%) (Auto) 1% (0-3) Basophils (%) (Auto) 1% (0-3) Neutrophils # (Auto) 3.3x10^3uL (1.8-7.7) Lymphocytes # (Auto) 0.6x10^3/uL (1.0-4.8) Monocytes # (Auto) 0.4x10^3/uL (0.0-1.1) Eosinophils # (Auto) 0.0x10^3/uL (0.0-0.7) Basophils # (Auto) 0.0x10^3/uL (0.0-0.2) BUN/Creatinine Ratio 21 (6-20) Total Bilirubin 0.3mg/dL (0.2-1.0) Aspartate Amino Transf (AST/SGOT) 60U/L (15-37) Alanine Aminotransferase (ALT/SGPT) 63U/L (16-63) Alkaline Phosphatase 91U/L (46-116) Total Protein 5.4g/dL (6.4-8.2) Albumin/Globulin Ratio 0.4 (1.0-1.7) Laboratory Tests Test 10/27/16 04:00 White Blood Count 4.5x10^3/uL (4.0-11.0) Red Blood Count 1.93x10^6/uL (4.30-5.70) Hemoglobin 6.1g/dL (13.0-17.5) Hematocrit 18.7% (39.0-53.0) Mean Corpuscular Volume 97fL (79-100) Mean Corpuscular Hemoglobin 32pg (25-35) Mean Corpuscular Hemoglobin Concent 33g/dL (31-37) Red Cell Distribution Width 15.7% (11.5-14.5) Platelet Count 241x10^3/uL (140-400) Neutrophils (%) (Auto) 75% (31-73) Lymphocytes (%) (Auto) 14% (24-48) Monocytes (%) (Auto) 10% (0-9) Eosinophils (%) (Auto) 1% (0-3) Basophils (%) (Auto) 1% (0-3) Neutrophils # (Auto) 3.3x10^3uL (1.8-7.7) Lymphocytes # (Auto) 0.6x10^3/uL (1.0-4.8) Monocytes # (Auto) 0.4x10^3/uL (0.0-1.1) Eosinophils # (Auto) 0.0x10^3/uL (0.0-0.7) Basophils # (Auto) 0.0x10^3/uL (0.0-0.2) Sodium Level 139mmol/L (136-145) Potassium Level 4.6mmol/L (3.5-5.1) Chloride Level 103mmol/L (98-107) Carbon Dioxide Level 29mmol/L (21-32) Anion Gap 7 (6-14) Blood Urea Nitrogen 38mg/dL (8-26) Creatinine 1.8mg/dL (0.7-1.3) Estimated GFR (Cockcroft-Gault) 36.0 BUN/Creatinine Ratio 21 (6-20) Glucose Level 129mg/dL (70-99) Calcium Level 7.4mg/dL (8.5-10.1) Phosphorus Level 3.5mg/dL (2.6-4.7) Total Bilirubin 0.3mg/dL (0.2-1.0) Aspartate Amino Transf (AST/SGOT) 60U/L (15-37) Alanine Aminotransferase (ALT/SGPT) 63U/L (16-63) Alkaline Phosphatase 91U/L (46-116) Total Protein 5.4g/dL (6.4-8.2) Albumin 1.5g/dL (3.4-5.0) Albumin/Globulin Ratio 0.4 (1.0-1.7) Microbiology 10/26/16 Blood Culture - Preliminary, Resulted NO GROWTH AFTER 1 DAY 10/26/16 Gram Stain - Final, Complete 10/13/16 Urine Culture - Final, Complete 10/13/16 Urine Culture Result 1 (MANDEEP) - Final, Complete Medications Current Medications Fentanyl Citrate 50 mcg 50 mcg PRN Q15MIN PRN IV PAIN GREATER THAN 3/10 Last administered on 09/30/16at 19:35; Start 12/27/16 at 17:30; Stop 10/01/16 at 04 :24; Status DC Lactated Ringer's (Iv Lactated Ringers) 1,000 ml @ 100 mls/hr Q10H IV Last administered on 09/30/16at 19:35; Start 09/30/16 at 17:28; Stop 10/01/16 at 03 :27; Status DC Ondansetron HCl (Zofran) 4 mg 1X ONCE IV Last administered on 09/30/16at 17:44 ; Start 09/30/16 at 17:30; Stop 09/30/16 at 17:32; Status DC Fentanyl Citrate (Fentanyl 2ml Vial) 50 mcg 1X ONCE IV ; Start 09/30/16 at 19: 15; Stop 10/01/16 at 04:24; Status DC Ondansetron HCl (Zofran) 4 mg PRN Q8HRS PRN IV NAUSEA/VOMITING Last administered on 09/30/16at 22:07; Start 09/30/16 at 19:15; Stop 10/01/16 at 19 :14; Status DC Fentanyl Citrate 50 mcg 50 mcg PRN Q2HR PRN IV PAIN Last administered on at 16:54; Start 09/30/16 at 19:15; Stop 10/01/16 at 19:14; Status DC Sodium Chloride 1,000 ml @ 100 mls/hr Q10H IV ; Start 09/30/16 at 19:30; Stop 10/01/16 at 04:24; Status DC Potassium Chloride/Dextrose/ Sod Cl (KCl 20 Meq In D5W-1/2 NS) 1,000 ml @ 125 mls/hr Q8H IV Last administered on 10/04/16at 06:02; Start 09/30/16 at 20:00; Stop 10/04/16 at 10:21; Status DC Enoxaparin Sodium 40 mg 40 mg Q24H SQ Last administered on 10/13/16 08:14; Start 10/01/16 at 09:00; Stop 10/13/16 at 08:36; Status DC Levetiracetam/ Sodium Chloride (Keppra/Iv Sodium Chloride 0.9% 100ml) 105 ml @ 400 mls/hr Q12HR IV Last administered on 10/05/16 09:30; Start 09/30/16 at 21: 00; Stop 10/05/16 at 10:24; Status DC Morphine Sulfate 2 mg PRN Q4HRS PRN IV SEVERE PAIN Last administered on 10:13; Start 09/30/16 at 19:30; Stop 10/05/16 at 10:24; Status DC Acetaminophen (Tylenol) 650 mg PRN Q6HRS PRN OK MILD PAIN / TEMP; Start at 19:30; Stop 10/05/16 at 10:24; Status DC Ondansetron HCl (Zofran) 4 mg PRN Q6HRS PRN IV NAUSEA/VOMITING Last administered on 10/07/16 08:28; Start 09/30/16 at 19:30; Stop 10/09/16 at 12:08 ; Status DC Benzocaine (Hurricaine One) 1 spray STK-MED ONCE .ROUTE ; Start 09/30/16 at 19: 51; Stop 09/30/16 at 19:52; Status DC Morphine Sulfate 4 mg PRN Q4HRS PRN IV PAIN Last administered on 10/05/16 08:08 ; Start 10/01/16 at 20:00; Stop 10/05/16 at 10:24; Status DC Clonidine HCl 1 patch 1 patch WEEKLY TD Last administered on 10/03/16at 12:30; Start 10/03/16 at 10:00; Stop 10/05/16 at 10:24; Status DC Piperacillin Sod/ Tazobactam Sod/ Sodium Chloride (Zosyn/Iv Sodium Chloride 0.9 % 50ml) 50 ml @ 100 mls/hr Q6HRS IV Last administered on 10/09/16 06:26; Start 10/04/16 at 11:00; Stop 10/09/16 at 10:55; Status DC Vancomycin HCl 1 each 1 each PRN DAILY PRN MC SEE COMMENTS Last administered on 10/07/16 11:11; Start 10/04/16 at 10:15; Stop 10/07/16 at 11:28; Status DC Vancomycin HCl/ Sodium Chloride (Iv Sodium Chloride 0.9% 250ml) 250 ml @ 250 mls/hr Q24H IV ; Start 10/04/16 at 10:15; Status UNV Labetalol HCl (Normodyne) 20 mg PRN Q6HRS PRN IVP HYPERTENSION, SEE COMMENTS; Start 10/04/16 at 10:15; Stop 10/05/16 at 10:24; Status DC Hydralazine HCl 10 mg 10 mg PRN Q6HRS PRN IVP ELEVATED BP, SEE COMMENTS Last administered on 10/06/16 19:17; Start 10/04/16 at 10:15; Stop 10/12/16 at 10:40 ; Status DC Amino Acids/ Glycerin/ Electrolytes 1,000 ml @ 40 mls/hr Q24H IV Last administered on 10/06/16 09:59; Start 10/04/16 at 10:15; Stop 10/07/16 at 09:06 ; Status DC Vancomycin HCl 2 gm/Sodium Chloride 500 ml @ 250 mls/hr 1X ONCE IV Last administered on 10/04/16at 11:26; Start 10/04/16 at 10:45; Stop 10/04/16 at 12 :44; Status DC Vancomycin HCl/ Sodium Chloride (Iv Sodium Chloride 0.9% 500ml Bag) 500 ml @ 250 mls/hr Q24H IV Last administered on 10/06/16 11:47; Start 10/05/16 at 12:00 ; Stop 10/07/16 at 11:28; Status DC Vancomycin HCl 1 each 1X ONCE MC Last administered on 10/06/16 11:30; Start at 11:30; Stop 10/06/16 at 11:31; Status DC Aspirin (Children'S Aspirin) 81 mg [id number] PO Last administered on 10/13/16 08:15; Start 10/05/16 at 11:00; Stop 10/13/16 at 08:29; Status DC Gabapentin (Neurontin) 600 mg QID PO Last administered on 10/13/16 08:14; Start 10/05/16 at 13:00; Stop 10/14/16 at 08:47; Status DC Levetiracetam (Keppra) 250 mg BID PO Last administered on 10/13/16 08:17; Start 10/05/16 at 11:00; Stop 10/14/16 at 08:47; Status DC Levothyroxine Sodium (Synthroid) 100 mcg DAILY07 PO Last administered on 05:08; Start 10/05/16 at 10:30; Stop 10/14/16 at 08:48; Status DC Metoprolol Succinate (Toprol Xl) 25 mg DAILY PO Last administered on 10/13/16 08:16; Start 10/05/16 at 11:00; Stop 10/14/16 at 08:47; Status DC Pramipexole Dihydrochloride (miraPEX) 0.5 mg [id number] PO Last administered on 10/13 08:15; Start 10/05/16 at 11:00; Stop 10/14/16 at 08:48; Status DC Simvastatin (Zocor) 20 mg HS PO Last administered on 10/12/16 21:07; Start 10/05 at 21:00; Stop 10/14/16 at 08:48; Status DC Carbidopa/Levodopa (Sinemet Cr) 1 tab.sa TID PO Last administered on 10/13/16 08:16; Start 10/05/16 at 11:00; Stop 10/14/16 at 08:48; Status DC Tamsulosin HCl (Flomax) 0.4 mg QHS PO Last administered on 10/12/16 21:07; Start 10/05/16 at 21:00; Stop 10/14/16 at 08:48; Status DC Tramadol HCl (Ultram) 50 mg QID PO Last administered on 10/13/16 08:17; Start 10/05/16 at 13:00; Stop 10/14/16 at 08:48; Status DC Acetaminophen (Tylenol) 650 mg PRN Q4HRS PRN PO MILD PAIN / TEMP Last administered on 10/13/16 00:17; Start 10/05/16 at 10:15; Stop 10/14/16 at 08:48; Status DC Prednisone (Prednisone) 20 mg 1X ONCE PO Last administered on 10/06/16 11:01; Start 10/06/16 at 10:30; Stop 10/06/16 at 10:31; Status DC Prednisone (Prednisone) 10 mg DAILY08 PO Last administered on 10/13/16 08:15; Start 10/07/16 at 08:00; Stop 10/13/16 at 08:29; Status DC Al Hydroxide/Mg Hydroxide (Mylanta Plus Xs) 30 ml PRN Q4HRS PRN PO HEARTBURN / GAS Last administered on 10/12/16 21:07; Start 10/07/16 at 08:45; Stop 10/14/16 at 08:48; Status DC Pantoprazole Sodium (Protonix) 40 mg DAILYAC PO Last administered on 10/13/16 05:08; Start 10/07/16 at 10:00; Stop 10/13/16 at 06:45; Status DC Furosemide 40 mg 40 mg DAILY PO Last administered on 10/08/16 08:42; Start 10/07 at 10:00; Stop 10/08/16 at 08:56; Status DC Sodium Chloride (Iv Sodium Chloride 0.45%) 1,000 ml @ 60 mls/hr CONT PRN IV . ; Start 10/08/16 at 09:00; Stop 10/08/16 at 16:06; Status DC Bisacodyl 10 mg 10 mg 1X ONCE OK Last administered on 10/08/16 10:11; Start at 09:30; Stop 10/08/16 at 09:31; Status DC Sodium Chloride (Iv Sodium Chloride 0.45%) 1,000 ml @ 60 mls/hr [id number] IV Last administered on 10/09/16 02:52; Start 10/08/16 at 10:15; Stop 10/09/16 at 12: 00; Status DC Cefpodoxime Proxetil (Vantin) 200 mg BID PO ; Start 10/09/16 at 11:00; Stop at 12:08; Status DC Cefpodoxime Proxetil (Vantin) 100 mg BID PO Last administered on 10/13/16 08:16 ; Start 10/09/16 at 21:00; Stop 10/13/16 at 08:29; Status DC Ondansetron HCl (Zofran) 4 mg STK-MED ONCE .ROUTE Last administered on 01:24; Start 10/13/16 at 01:19; Stop 10/13/16 at 01:20; Status DC Ondansetron HCl (Zofran) 4 mg PRN Q6HRS PRN IV NAUSEA/VOMITING Last administered on 10/27/16 00:39; Start 10/13/16 at 02:00 Pantoprazole Sodium 40 mg 40 mg DAILYAC IVP Last administered on 10/27/16 09: 08; Start 10/13/16 at 07:30 Dextrose/Sodium Chloride (Iv D5% - NS) 1,000 ml @ 60 mls/hr [id number] IV Last administered on 10/13/16 09:25; Start 10/13/16 at 08:30; Stop 10/13/16 at 11:01; Status DC Sodium Polystyrene Sulfonate 15 gm 15 gm 1X ONCE PO Last administered on 09:26; Start 10/13/16 at 08:30; Stop 10/13/16 at 08:31; Status DC Piperacillin Sod/ Tazobactam Sod 3.375 gm/Sodium Chloride 50 ml @ 100 mls/hr Q6HRS IV Last administered on 10/19/16 12:42; Start 10/13/16 at 09:00; Stop at 15:06; Status DC Dextrose/Sodium Chloride (Iv D5% - 1/2 NS) 1,000 ml @ 50 mls/hr Q20H IV Last administered on 10/17/16 00:16; Start 10/13/16 at 11:00; Stop 10/17/16 at 12:23 ; Status DC Ondansetron HCl (Zofran) 4 mg PRN Q6HRS PRN IV Nausea 1ST CHOICE; Start at 12:30; Stop 10/14/16 at 11:07; Status DC Fentanyl Citrate (Fentanyl 2ml Vial) 25 mcg PRN Q5MIN PRN IV MILD PAIN; Start 10/13/16 at 12:30; Stop 10/14/16 at 11:04; Status DC Fentanyl Citrate (Fentanyl 2ml Vial) 50 mcg PRN Q5MIN PRN IV MODERATE PAIN; Start 10/13/16 at 12:30; Stop 10/14/16 at 11:04; Status DC Morphine Sulfate 1 mg 1 mg PRN Q10MIN PRN IV SEVERE PAIN; Start 10/13/16 at 12: 30; Stop 10/14/16 at 11:00; Status DC Lactated Ringer's (Iv Lactated Ringers) 1,000 ml @ 0 mls/hr Q0M IV ; Start 10/13 at 12:17; Stop 10/14/16 at 00:16; Status DC Lidocaine HCl 2 ml 1X PRN PRN ID IV START; Start 10/13/16 at 12:30; Stop at 16:03; Status DC Hydromorphone HCl (Dilaudid) 0.5 mg PRN Q10MIN PRN IV SEV PAIN,Second choice; Start 10/13/16 at 12:30; Stop 10/14/16 at 11:04; Status DC Prochlorperazine Edisylate (Compazine) 5 mg PACU PRN PRN IV NAUSEA; Start at 12:30; Stop 10/14/16 at 11:00; Status DC Fentanyl Citrate (Fentanyl 2ml Vial) 50 mcg PRN Q5MIN PRN IV Acute Pain Last administered on 10/14/16t 10:04; Start 10/13/16 at 13:00; Stop 10/14/16 at 11:04 ; Status DC Morphine Sulfate 4 mg PRN Q10MIN PRN IV Moderate Pain; Start 10/13/16 at 13:00; Stop 10/14/16 at 11:00; Status DC Hydromorphone HCl (Dilaudid) 0.4 mg PRN Q10MIN PRN IV Moderate to severe pain; Start 10/13/16 at 13:00; Stop 10/14/16 at 11:04; Status DC Meperidine HCl (Demerol) 12.5 mg PRN Q5MIN PRN IV SHIVERING; Start 10/13/16 at 13:00; Stop 10/14/16 at 11:00; Status DC Prochlorperazine Edisylate (Compazine) 5 mg PRN Q6HRS PRN IV Nausea/Vomiting, 1st Choice; Start 10/13/16 at 13:00; Stop 10/14/16 at 11:00; Status DC Diphenhydramine HCl (Benadryl) 12.5 mg PRN Q2HR PRN IV ITCHING; Start 10/13/16 at 13:00; Stop 10/14/16 at 11:00; Status DC Midazolam HCl (Versed) 2 mg PRN 1X PRN IV PRIOR TO PROCEDURE; Start 10/13/16 at 13:00; Stop 10/14/16 at 11:07; Status DC Midazolam HCl (Versed) 1 mg PRN 1X PRN IV PRIOR TO PROCEDURE; Start 10/13/16 at 13:00; Stop 10/14/16 at 11:07; Status DC Fentanyl Citrate (Fentanyl 2ml Vial) 25 mcg PRN Q5MIN PRN IV X 2 DOSES FOR PAIN ; Start 10/13/16 at 13:00; Stop 10/14/16 at 11:04; Status DC Fentanyl Citrate 50 mcg 50 mcg PRN Q5MIN PRN IV X 2 DOSES FOR PAIN; Start at 13:00; Stop 10/14/16 at 11:04; Status DC Lactated Ringer's (Iv Lactated Ringers) 1,000 ml @ 125 mls/hr Q8H IV Last administered on 10/13/16 13:30; Start 10/13/16 at 12:48; Stop 10/14/16 at 00:47; Status DC Lidocaine HCl 2 ml 1X PRN PRN ID IV START; Start 10/13/16 at 13:00; Stop at 16:03; Status DC Fentanyl Citrate (Fentanyl 2ml Vial) 25 mcg PRN Q2HR PRN IV PAIN MOD TO SEV; Start 10/13/16 at 20:30; Stop 10/14/16 at 14:15; Status DC Fentanyl Citrate (Fentanyl 2ml Vial) 50 mcg PRN Q2HR PRN IV PAIN MOD TO SEV Last administered on 10/14/16 12:02; Start 10/13/16 at 20:30; Stop 10/14/16 at 14:15; Status DC Enoxaparin Sodium (Lovenox 40mg Syringe) 40 mg Q24H SQ Last administered on 09:18; Start 10/14/16 at 09:00; Stop 10/27/16 at 06:34; Status DC Fentanyl Citrate 100 mcg 100 mcg STK-MED ONCE .ROUTE ; Start 10/13/16 at 13:27; Stop 10/14/16 at 07:31; Status DC Propofol (Diprivan) 20 ml @ As Directed STK-MED ONCE IV ; Start 10/13/16 at 13:27 ; Stop 10/14/16 at 07:31; Status DC Rocuronium [place] (Zemuron) 50 mg STK-MED ONCE .ROUTE ; Start 10/13/16 at 13:27 ; Stop 10/14/16 at 07:31; Status DC Lidocaine HCl 100 mg STK-MED ONCE .ROUTE ; Start 10/13/16 at 13:27; Stop at 07:31; Status DC Fentanyl Citrate (Fentanyl 2ml Vial) 100 mcg STK-MED ONCE .ROUTE ; Start at 13:27; Stop 10/14/16 at 07:31; Status DC Ephedrine Sulfate (Akovaz) 50 mg STK-MED ONCE .ROUTE ; Start 10/13/16 at 14:00; Stop 10/14/16 at 07:31; Status DC Phenylephrine HCl 1 mg STK-MED ONCE IV ; Start 10/13/16 at 14:25; Stop 10/14/16 at 07:31; Status DC Desflurane (Suprane) 60 ml STK-MED ONCE IH ; Start 10/13/16 at 14:25; Stop at 07:31; Status DC Dexamethasone Sodium Phosphate (Decadron) 20 mg STK-MED ONCE .ROUTE ; Start 10/13 at 14:25; Stop 10/14/16 at 07:31; Status DC Ondansetron HCl (Zofran) 4 mg STK-MED ONCE .ROUTE ; Start 10/13/16 at 14:25; Stop 10/14/16 at 07:31; Status DC Famotidine (Pepcid) 20 mg STK-MED ONCE .ROUTE ; Start 10/13/16 at 14:25; Stop 07/21 at 07:31; Status DC Rocuronium [place] (Zemuron) 50 mg STK-MED ONCE .ROUTE ; Start 10/13/16 at 16:19 ; Stop 10/14/16 at 07:31; Status DC Fentanyl Citrate (Fentanyl 2ml Vial) 100 mcg STK-MED ONCE .ROUTE ; Start at 16:21; Stop 10/14/16 at 07:31; Status DC Desflurane (Suprane) 90 ml STK-MED ONCE IH ; Start 10/13/16 at 16:53; Stop at 07:31; Status DC Glycopyrrolate (Robinul) 1 mg STK-MED ONCE .ROUTE ; Start 10/13/16 at 17:00; Stop 10/14/16 at 07:31; Status DC Neostigmine Methylsulfate 5 mg STK-MED ONCE .ROUTE ; Start 10/13/16 at 17:00; Stop 10/14/16 at 07:31; Status DC Phenylephrine HCl 1 mg STK-MED ONCE IV ; Start 10/13/16 at 18:14; Stop 10/14/16 at 07:31; Status DC Fentanyl Citrate (Fentanyl 2ml Vial) 100 mcg STK-MED ONCE .ROUTE ; Start at 18:20; Stop 10/14/16 at 07:31; Status DC Fentanyl Citrate 100 mcg 100 mcg STK-MED ONCE .ROUTE ; Start 10/13/16 at 19:17; Stop 10/14/16 at 07:31; Status DC Levetiracetam 500 mg/Sodium Chloride 105 ml @ 400 mls/hr Q12HR IV Last administered on 10/27/16 09:10; Start 10/14/16 at 09:00 Amino Acids/ Glycerin/ Electrolytes (Procalamine) 1,000 ml @ 80 mls/hr [id number] IV Last administered on 10/16/16 09:16; Start 10/14/16 at 11:15; Stop at 21:59; Status DC Morphine Sulfate 2 mg PRN Q4HRS PRN IV MODERATE PAIN Last administered on 00:57; Start 10/14/16 at 14:15; Stop 10/27/16 at 12:52; Status DC Morphine Sulfate 4 mg PRN Q4HRS PRN IV SEVERE PAIN Last administered on 13:34; Start 10/14/16 at 14:30 Info 1 each 1 each PRN DAILY PRN MC SEE COMMENTS Last administered on 12:56; Start 10/16/16 at 11:30 Sodium Chloride/ Potassium Chloride/ Potassium Phosphate/ Magnesium Sulfate/ Calcium Gluconate/ Multivitamins/ Minerals/Chromium/ Copper/Manganese/ Seleni/Zn /Total Parenteral Nutrition/Amino Acids/Dextrose/ Fat Emulsion Intravenous ( Sodium Chloride/ Potassium Phospha... 1,512 ml @ 63 mls/hr TPN CONT IV ; Start 10/16/16 at 22:00; Stop 10/17/16 at 12:50; Status DC Lidocaine/Sodium Bicarbonate 20 ml 20 ml STK-MED ONCE IJ ; Start 10/17/16 at 08: 20; Stop 10/17/16 at 08:21; Status DC Heparin Sodium/ Sodium Chloride 500 ml @ As Directed STK-MED ONCE .ROUTE ; Start 10/17/16 at 08:20; Stop 10/17/16 at 08:21; Status DC Lidocaine/Sodium Bicarbonate (Buffered Lidocaine 1%) 3 ml 1X ONCE IJ Last administered on 10/17/16 08:30; Start 10/17/16 at 08:30; Stop 10/17/16 at 08:31 ; Status DC Heparin Sodium/ Sodium Chloride 60 unit 1X ONCE IV Last administered on 08:30; Start 10/17/16 at 08:30; Stop 10/17/16 at 08:31; Status DC Iohexol (Omnipaque 300 Mg/ml) 50 ml STK-MED ONCE .ROUTE ; Start 10/17/16 at 09: 02; Stop 10/17/16 at 09:03; Status DC Iohexol (Omnipaque 300 Mg/ml) 43 ml 1X ONCE IART Last administered on 08:45; Start 10/17/16 at 09:30; Stop 10/17/16 at 09:33; Status DC Info (Do NOT chart on this entry -- for MONITORING) 1 each PRN DAILY PRN MC SEE COMMENTS; Start 10/17/16 at 09:45; Stop 10/19/16 at 09:44; Status DC Clonidine HCl (Catapres Tts-2) 1 patch WEEKLY TD Last administered on 09:12; Start 10/17/16 at 11:00; Stop 10/26/16 at 09:54; Status DC Labetalol HCl 20 mg 20 mg PRN Q6HRS PRN IVP HYPERTENSION, SEE COMMENTS Last administered on 10/26/16 17:55; Start 10/17/16 at 10:30 Sodium Chloride 1,000 ml @ 60 mls/hr [id number] IV Last administered on 06:32; Start 10/17/16 at 12:30; Stop 10/19/16 at 10:06; Status DC Sodium Chloride 90 meq/Potassium Chloride 50 meq/ Potassium Phosphate 13.6 mmol/ Magnesium Sulfate 10 meq/ Calcium Gluconate 10 meq/ Multivitamins/ Minerals 10 ml/ Chromium/Copper/ Manganese/Seleni/ Zn 1 ml/Total Parenteral Nutrition/Amino Acids/Dextrose/ Fat Emulsion Intravenous 1,512 ml @ 63 mls/hr TPN CONT IV Last administered on 10/17/16 21:09; Start 10/17/16 at 22:00; Stop 10/18/16 at 21:59; Status DC Sodium Chloride/ Potassium Chloride/ Potassium Phosphate/ Magnesium Sulfate/ Calcium Gluconate/ Multivitamins/ Minerals/Chromium/ Copper/Manganese/ Seleni/Zn /Total Parenteral Nutrition/Amino Acids/Dextrose/ Fat Emulsion Intravenous ( Sodium Chloride/ Potassium Phospha... 1,512 ml @ 63 mls/hr TPN CONT IV Last administered on 10/18/16 21:24; Start 10/18/16 at 22:00; Stop 10/19/16 at 21:59 ; Status DC Furosemide 20 mg 20 mg 1X ONCE IVP Last administered on 10/19/16 11:01; Start 10/19/16 at 10:30; Stop 10/19/16 at 10:31; Status DC Sodium Chloride 90 meq/Sodium Acetate 40 meq/ Potassium Chloride 50 meq/ Potassium Phosphate 13.6 mmol/Magnesium Sulfate 10 meq/ Calcium Gluconate 10 meq / Multivitamins/ Minerals 10 ml/ Chromium/Copper/ Manganese/Seleni/ Zn 1 ml/ Total Parenteral Nutrition/Amino Acids/Dextro... 1,920 ml @ 80 mls/hr TPN CONT IV Last administered on 10/19/16 22:29; Start 10/19/16 at 22:00; Stop at 21:59; Status DC Sodium Chloride 1,000 ml @ 45 mls/hr [id number] IV Last administered on 22:24; Start 10/20/16 at 09:00; Stop 10/21/16 at 09:26; Status DC Magnesium Sulfate/ Dextrose 50 ml @ 25 mls/hr PRN DAILY PRN IV for Mag < 1.7 on am labs; Start 10/20/16 at 13:15 Sodium Chloride/ Sodium Acetate/ Potassium Chloride/ Potassium Phosphate/ Magnesium Sulfate/ Calcium Gluconate/ Multivitamins/ Minerals/Chromium/ Copper/ Manganese/ Seleni/Zn/Total Parenteral Nutrition/Amino Acids/Dextrose/ Fat Emulsion Intravenous (Sodium Chloride/ Potass... 1,920 ml @ 80 mls/hr TPN CONT IV Last administered on 10/20/16 22:23; Start 10/20/16 at 22:00; Stop at 21:59; Status DC Acetaminophen/ Hydrocodone Bitart 1 tab 1 tab PRN Q4HRS PRN PO PAIN Last administered on 10/21/16 23:51; Start 10/21/16 at 09:30; Stop 10/22/16 at 10:39 ; Status DC Sodium Chloride/ Sodium Acetate/ Potassium Chloride/ Potassium Phosphate/ Magnesium Sulfate/ Calcium Gluconate/ Multivitamins/ Minerals/Chromium/ Copper/ Manganese/ Seleni/Zn/Total Parenteral Nutrition/Amino Acids/Dextrose/ Fat Emulsion Intravenous (Sodium Chloride/ Potass... 1,920 ml @ 80 mls/hr TPN CONT IV Last administered on 10/21/16 22:22; Start 10/21/16 at 22:00; Stop at 21:59; Status DC Metoclopramide HCl (Reglan) 10 mg 1X ONCE IV Last administered on 10/22/16 01 :56; Start 10/22/16 at 02:00; Stop 10/22/16 at 02:01; Status DC Lorazepam (Ativan) 1 mg 1X ONCE IV Last administered on 10/22/16 02:35; Start 10/22/16 at 02:30; Stop 10/22/16 at 02:31; Status DC Morphine Sulfate 2 mg PRN Q1HR PRN IV CHEST PAIN Last administered on 05:25; Start 10/22/16 at 02:30 Famotidine (Pepcid) 20 mg 1X ONCE IVP Last administered on 10/22/16 02:35; Start 10/22/16 at 02:30; Stop 10/22/16 at 02:31; Status DC Hydralazine HCl (Apresoline) 10 mg PRN Q6HRS PRN IVP ELEVATED BP, SEE COMMENTS ; Start 10/22/16 at 10:45 Iohexol (Omnipaque 300 Mg/ml) 60 ml 1X ONCE PO Last administered on 10/22/16 11:43; Start 10/22/16 at 11:00; Stop 10/22/16 at 11:01; Status DC Iohexol (Omnipaque 300 Mg/ml) 60 ml 1X ONCE IV Last administered on 10/22/16 11:19; Start 10/22/16 at 11:00; Stop 10/22/16 at 11:01; Status DC Info 1 each 1 each PRN DAILY PRN MC SEE COMMENTS; Start 10/22/16 at 11:00; Stop 10/24/16 at 10:59; Status DC Sodium Chloride 50 meq/Sodium Acetate 80 meq/ Potassium Chloride 50 meq/ Potassium Phosphate 18 mmol/ Magnesium Sulfate 10 meq/Calcium Gluconate 10 meq/ Multivitamins/ Minerals 10 ml/ Chromium/Copper/ Manganese/Seleni/ Zn 1 ml/Total Parenteral Nutrition/Amino Acids/Dextrose/ Fat Emuls... 1,920 ml @ 80 mls/hr TPN CONT IV Last administered on 10/22/16 21:46; Start 10/22/16 at 22:00; Stop 10/23/16 at 21:59; Status DC Levothyroxine Sodium/Sodium Chloride (Synthroid/Iv Sodium Chloride 0.9% 50ml) 5 ml @ 100 mls/hr DAILY IVP Last administered on 10/27/16 09:09; Start 10/23/16 at 14:00 Furosemide (Lasix) 20 mg 1X ONCE IVP Last administered on 10/23/16 12:45; Start 10/23/16 at 12:30; Stop 10/23/16 at 12:31; Status DC Alteplase, Recombinant 2 mg 2 mg 1X ONCE INT CAT Last administered on 12:45; Start 10/23/16 at 12:30; Stop 10/23/16 at 12:31; Status DC Sodium Chloride/ Sodium Acetate/ Potassium Chloride/ Potassium Phosphate/ Magnesium Sulfate/ Calcium Gluconate/ Multivitamins/ Minerals/Chromium/ Copper/ Manganese/ Seleni/Zn/Total Parenteral Nutrition/Amino Acids/Dextrose/ Fat Emulsion Intravenous (Sodium Chloride/ Potass... 1,920 ml @ 80 mls/hr TPN CONT IV Last administered on 10/23/16 21:37; Start 10/23/16 at 22:00; Stop at 21:59; Status DC Acetaminophen 650 mg 650 mg PRN Q6HRS PRN OK MILD PAIN / TEMP Last administered on 10/23/16 23:09; Start 10/23/16 at 23:00; Stop 10/26/16 at 10:04 ; Status DC Potassium Chloride/Dextrose/ Sod Cl 1,000 ml @ 80 mls/hr [id number] IV Last administered on 10/24/16 10:08; Start 10/24/16 at 09:30; Stop 10/24/16 at 13:58 ; Status DC Sodium Chloride 50 meq/Sodium Acetate 80 meq/ Potassium Chloride 50 meq/ Potassium Phosphate 18 mmol/ Magnesium Sulfate 10 meq/Calcium Gluconate 10 meq/ Multivitamins/ Minerals 10 ml/ Chromium/Copper/ Manganese/Seleni/ Zn 1 ml/Total Parenteral Nutrition/Amino Acids/Dextrose/ Fat Emuls... 1,920 ml @ 80 mls/hr TPN CONT IV Last administered on 10/24/16 22:10; Start 10/24/16 at 22:00; Stop 10/25/16 at 21:59; Status DC Sodium Chloride (Iv Sodium Chloride 0.45%) 1,000 ml @ 45 mls/hr [id number] IV Last administered on 10/24/16 14:00; Start 10/24/16 at 14:00; Stop 10/25/16 at 11:47; Status DC Albuterol/ Ipratropium (Duoneb) 3 ml RTQID NEB Last administered on 10/27/16 11:27; Start 10/25/16 at 12:00 Albuterol Sulfate (Ventolin Neb Soln) 2.5 mg PRN Q4HRS PRN NEB SOA; Start 10/25 at 12:00 Furosemide 40 mg 40 mg 1X ONCE IVP Last administered on 10/25/16 13:49; Start 10/25/16 at 11:45; Stop 10/25/16 at 11:53; Status DC Sodium Chloride 50 meq/Sodium Acetate 80 meq/ Potassium Chloride 50 meq/ Potassium Phosphate 18 mmol/ Magnesium Sulfate 10 meq/Calcium Gluconate 10 meq/ Multivitamins/ Minerals 10 ml/ Chromium/Copper/ Manganese/Seleni/ Zn 1 ml/Total Parenteral Nutrition/Amino Acids/Dextrose/ Fat Emuls... 1,920 ml @ 80 mls/hr TPN CONT IV Last administered on 10/25/16 21:06; Start 10/25/16 at 22:00; Stop 10/26/16 at 21:59; Status DC Albumin Human (Albuminar) 100 ml @ 100 mls/hr 1X ONCE IV Last administered on 10/25/16 18:19; Start 10/25/16 at 16:45; Stop 10/25/16 at 17:44; Status DC Furosemide 40 mg 40 mg 1X ONCE IVP Last administered on 10/25/16 18:24; Start 10/25/16 at 16:45; Stop 10/25/16 at 16:46; Status DC Piperacillin Sod/ Tazobactam Sod 3.375 gm/Sodium Chloride 50 ml @ 100 mls/hr Q8HRS IV Last administered on 10/27/16 05:29; Start 10/26/16 at 10:00 Linezolid (Zyvox Premix) 300 ml @ 300 mls/hr Q12HR IV Last administered on 09:12; Start 10/26/16 at 10:00 Bisacodyl 10 mg 10 mg 1X ONCE OK Last administered on 10/27/16 09:11; Start 10/26/16 at 10:00; Stop 10/26/16 at 10:02; Status DC Sodium Chloride (Iv Sodium Chloride 0.45%) 1,000 ml @ 45 mls/hr [id number] IV Last administered on 10/27/16 09:11; Start 10/26/16 at 10:00 Acetaminophen 650 mg 650 mg PRN Q6HRS PRN OK MILD PAIN / TEMP Last administered on 10/26/16 23:04; Start 10/26/16 at 10:00 Sodium Chloride 50 meq/Sodium Acetate 80 meq/ Potassium Chloride 50 meq/ Potassium Phosphate 18 mmol/ Magnesium Sulfate 10 meq/Calcium Gluconate 10 meq/ Multivitamins/ Minerals 10 ml/ Chromium/Copper/ Manganese/Seleni/ Zn 1 ml/Total Parenteral Nutrition/Amino Acids/Dextrose/ Fat Emuls... 1,920 ml @ 80 mls/hr TPN CONT IV Last administered on 10/26/16 22:02; Start 10/26/16 at 22:00; Stop 10/27/16 at 21:59 Micafungin Sodium/ Dextrose (Mycamine) 100 ml @ 100 mls/hr Q24H IV Last administered on 10/26/16 21:55; Start 10/26/16 at 21:00 Morphine Sulfate 2 mg 2 mg PRN Q4HRS PRN IV MODERATE PAIN; Start 10/27/16 at 13 :00 Sodium Chloride/ Sodium Acetate/ Potassium Chloride/ Potassium Phosphate/ Magnesium Sulfate/ Calcium Gluconate/ Multivitamins/ Minerals/Chromium/ Copper/ Manganese/ Seleni/Zn/Total Parenteral Nutrition/Amino Acids/Dextrose/ Fat Emulsion Intravenous (Sodium Chloride/ Potass... 1,920 ml @ 80 mls/hr TPN CONT IV ; Start 10/27/16 at 22:00; Stop 10/28/16 at 21:59 Diphenhydramine HCl (Benadryl) 25 mg 1X ONCE IM Last administered on 14:08; Start 10/27/16 at 14:30; Stop 10/27/16 at 14:31 Active Scripts Active Hydrocodone-Apap 5-325 (Hydrocodone Bit/Acetaminophen) 1 Each Tablet 1 Tab PO PRN Q6HRS PRN Metoprolol Succinate ( Xl ) (Metoprolol Succinate) 25 Mg Tab.er.24h 25 Mg PO DAILY Reported Flomax (Tamsulosin Hcl) 0.4 Mg Cap.er.24h 1 Cap PO QHS Tramadol Hcl 100 Mg Tab.er.24h 100 Mg PO QID Levetiracetam 250 Mg Tablet 250 Mg PO BID Dulcolax (Bisacodyl) 10 Mg Supp.rect 10 Mg RC PRN DAILY PRN Maalox Advanced Suspension (Mag Hydrox/Al Hydrox/Simeth) 770 Ml Oral.susp 30 Ml PO Q2HR PRN Milk Of Magnesia (Magnesium Hydroxide) 400 Mg/5 Ml Oral.susp 30 Ml PO DAILY PRN Robitussin Cough-Chest Dm Liq (Guaifenesin/Dextromethorphan) 118 Ml Liquid 10 Ml PO Q4HRS PRN Trazodone Hcl 50 Mg Tablet 1 Tab PO QHS Tylenol (Acetaminophen) 325 Mg Tablet 650 Mg PO Q6HRS PRN Pramipexole Dihydrochloride (Pramipexole Di-Hcl) 0.5 Mg Tablet 0.5 Mg PO TID Simvastatin 20 Mg Tablet 1 Tab PO QHS Levothyroxine Sodium 100 Mcg Tablet 1 Tab PO DAILY Gabapentin 800 Mg Tablet 800 Mg PO QID Sinemet 25-100 Mg Tablet (Carbidopa/Levodopa) 1 Each Tablet 2 Tab PO TID Aspirin 81 Mg Tab.chew 1 Tab PO DAILY Vitals/I & O Vital Sign - Last 24 Hours 10/26/16 10/26/16 10/26/16 10/26/16 14:57 15:00 17:54 17:55 Temp 99.8 99.8 Pulse 116 116 Resp 24 B/P 174/73 174/73 Pulse Ox 94 94 O2 Delivery Nasal Cannula Nasal Cannula Nasal Cannula O2 Flow Rate 5.0 5.0 5.0 10/26/16 10/26/16 10/26/16 10/26/16 19:00 20:08 20:20 23:43 Temp 102.4 102.2 102.4 102.2 Pulse 68 103 Resp 16 16 B/P 106/40 103/40 Pulse Ox 91 91 93 O2 Delivery Nasal Cannula Nasal Cannula Nasal Cannula Nasal Cannula O2 Flow Rate 5.0 5.0 3.0 5.0 10/27/16 10/27/16 10/27/16 10/27/16 02:57 07:00 07:34 09:12 Temp 100.8 98.2 100.8 98.2 Pulse 90 89 Resp 18 16 B/P 98/39 98/40 Pulse Ox 97 94 96 96 O2 Delivery Nasal Cannula Nasal Cannula Nasal Cannula Nasal Cannula O2 Flow Rate 5.0 5.0 3.0 3.0 10/27/16 10/27/16 10/27/16 10/27/16 09:45 11:00 11:28 12:25 Temp 97.9 99.2 97.9 99.2 Pulse 89 86 Resp 16 20 B/P 100/37 121/45 Pulse Ox 96 90 O2 Delivery Nasal Cannula Nasal Cannula Nasal Cannula O2 Flow Rate 3.0 5.0 3.0 10/27/16 10/27/16 10/27/16 12:41 13:32 13:34 Temp 99.5 98.9 99.5 98.9 Pulse 86 98 Resp 20 20 B/P 114/52 116/44 Pulse Ox 90 O2 Delivery Nasal Cannula O2 Flow Rate 3.0 Intake and Output 10/26/16 10/26/16 10/27/16 15:00 23:00 07:00 Intake Total 255 ml 1960 ml Output Total 1250 ml 475 ml Balance -995 ml 1485 ml Problem List Problems Medical Problems: (1) SBO (small bowel obstruction) Status: Acute Assessment Ileus persists, though some bowel sounds. Better? Anemia, getting transfused. Multifactorial. Plan of Care: Continue current Tx, Mgmt RICHARD GUILLORY MD Oct 27, 2016 14:15
--- NOTE | 2016-10-27 14:23 | PDOC ---
PULMONARY PROGRESS NOTES Subjective Feeling better today. Febrile overnight. + cough, difficulty with expectoration. Vitals Vital Signs Date Time Temp Pulse Resp B/P Pulse Ox O2 Delivery O2 Flow Rate FiO2 10/27/16 13:34 90 Nasal Cannula 3.0 10/27/16 13:32 98.9 98 20 116/44 98.9 ROS: No Chest Pain General: Alert, Oriented X4, Mild Distress Lungs: Other (rhonchi BL) Cardiovascular: S1, S2 Abdomen: Soft Neuro Exam: Alert, Oriented Extremities: Other (2+ edema BL ) Skin: Warm, Dry Labs Laboratory Tests Test 10/26/16 06:00 10/27/16 04:00 Sodium Level 141mmol/L (136-145) 139mmol/L (136-145) Potassium Level 4.5mmol/L (3.5-5.1) 4.6mmol/L (3.5-5.1) Chloride Level 105mmol/L (98-107) 103mmol/L (98-107) Carbon Dioxide Level 28mmol/L (21-32) 29mmol/L (21-32) Anion Gap 8 (6-14) 7 (6-14) Blood Urea Nitrogen 37mg/dL (8-26) 38mg/dL (8-26) Creatinine 1.6mg/dL (0.7-1.3) 1.8mg/dL (0.7-1.3) Estimated GFR (Cockcroft-Gault) 41.3 36.0 Glucose Level 123mg/dL (70-99) 129mg/dL (70-99) Calcium Level 7.6mg/dL (8.5-10.1) 7.4mg/dL (8.5-10.1) Phosphorus Level 3.7mg/dL (2.6-4.7) 3.5mg/dL (2.6-4.7) Albumin 1.8g/dL (3.4-5.0) 1.5g/dL (3.4-5.0) White Blood Count 4.5x10^3/uL (4.0-11.0) Red Blood Count 1.93x10^6/uL (4.30-5.70) Hemoglobin 6.1g/dL (13.0-17.5) Hematocrit 18.7% (39.0-53.0) Mean Corpuscular Volume 97fL (79-100) Mean Corpuscular Hemoglobin 32pg (25-35) Mean Corpuscular Hemoglobin Concent 33g/dL (31-37) Red Cell Distribution Width 15.7% (11.5-14.5) Platelet Count 241x10^3/uL (140-400) Neutrophils (%) (Auto) 75% (31-73) Lymphocytes (%) (Auto) 14% (24-48) Monocytes (%) (Auto) 10% (0-9) Eosinophils (%) (Auto) 1% (0-3) Basophils (%) (Auto) 1% (0-3) Neutrophils # (Auto) 3.3x10^3uL (1.8-7.7) Lymphocytes # (Auto) 0.6x10^3/uL (1.0-4.8) Monocytes # (Auto) 0.4x10^3/uL (0.0-1.1) Eosinophils # (Auto) 0.0x10^3/uL (0.0-0.7) Basophils # (Auto) 0.0x10^3/uL (0.0-0.2) BUN/Creatinine Ratio 21 (6-20) Total Bilirubin 0.3mg/dL (0.2-1.0) Aspartate Amino Transf (AST/SGOT) 60U/L (15-37) Alanine Aminotransferase (ALT/SGPT) 63U/L (16-63) Alkaline Phosphatase 91U/L (46-116) Total Protein 5.4g/dL (6.4-8.2) Albumin/Globulin Ratio 0.4 (1.0-1.7) Laboratory Tests Test 10/27/16 04:00 White Blood Count 4.5x10^3/uL (4.0-11.0) Red Blood Count 1.93x10^6/uL (4.30-5.70) Hemoglobin 6.1g/dL (13.0-17.5) Hematocrit 18.7% (39.0-53.0) Mean Corpuscular Volume 97fL (79-100) Mean Corpuscular Hemoglobin 32pg (25-35) Mean Corpuscular Hemoglobin Concent 33g/dL (31-37) Red Cell Distribution Width 15.7% (11.5-14.5) Platelet Count 241x10^3/uL (140-400) Neutrophils (%) (Auto) 75% (31-73) Lymphocytes (%) (Auto) 14% (24-48) Monocytes (%) (Auto) 10% (0-9) Eosinophils (%) (Auto) 1% (0-3) Basophils (%) (Auto) 1% (0-3) Neutrophils # (Auto) 3.3x10^3uL (1.8-7.7) Lymphocytes # (Auto) 0.6x10^3/uL (1.0-4.8) Monocytes # (Auto) 0.4x10^3/uL (0.0-1.1) Eosinophils # (Auto) 0.0x10^3/uL (0.0-0.7) Basophils # (Auto) 0.0x10^3/uL (0.0-0.2) Sodium Level 139mmol/L (136-145) Potassium Level 4.6mmol/L (3.5-5.1) Chloride Level 103mmol/L (98-107) Carbon Dioxide Level 29mmol/L (21-32) Anion Gap 7 (6-14) Blood Urea Nitrogen 38mg/dL (8-26) Creatinine 1.8mg/dL (0.7-1.3) Estimated GFR (Cockcroft-Gault) 36.0 BUN/Creatinine Ratio 21 (6-20) Glucose Level 129mg/dL (70-99) Calcium Level 7.4mg/dL (8.5-10.1) Phosphorus Level 3.5mg/dL (2.6-4.7) Total Bilirubin 0.3mg/dL (0.2-1.0) Aspartate Amino Transf (AST/SGOT) 60U/L (15-37) Alanine Aminotransferase (ALT/SGPT) 63U/L (16-63) Alkaline Phosphatase 91U/L (46-116) Total Protein 5.4g/dL (6.4-8.2) Albumin 1.5g/dL (3.4-5.0) Albumin/Globulin Ratio 0.4 (1.0-1.7) Medications Active Scripts Medications Dose Route/Sig Days Date Category Hydrocodone-Apap 5-325 (Hydrocodone Bit/Acetaminophen) 1 Each Tablet 1 Tab PO PRN Q6HRS PRN 08/28/16 Rx Flomax (Tamsulosin Hcl) 0.4 Mg Cap.er.24h 1 Cap PO QHS 01/01/16 Reported Tramadol Hcl 100 Mg Tab.er.24h 100 Mg PO QID 01/01/16 Reported Levetiracetam 250 Mg Tablet 250 Mg PO BID 01/01/16 Reported Dulcolax (Bisacodyl) 10 Mg Supp.rect 10 Mg RC PRN DAILY PRN 12/21/15 Reported Maalox Advanced Suspension (Mag Hydrox/Al Hydrox/Simeth) 770 Ml Oral.susp 30 Ml PO Q2HR PRN 12/21/15 Reported Milk Of Magnesia (Magnesium Hydroxide) 400 Mg/5 Ml Oral.susp 30 Ml PO DAILY PRN 12/21/15 Reported Robitussin Cough-Chest Dm Liq (Guaifenesin/Dextromethorphan) 118 Ml Liquid 10 Ml PO Q4HRS PRN 12/21/15 Reported Trazodone Hcl 50 Mg Tablet 1 Tab PO QHS 12/21/15 Reported Tylenol (Acetaminophen) 325 Mg Tablet 650 Mg PO Q6HRS PRN 12/21/15 Reported Pramipexole Dihydrochloride (Pramipexole Di-Hcl) 0.5 Mg Tablet 0.5 Mg PO TID 12/08/15 Reported Metoprolol Succinate ( Xl ) (Metoprolol Succinate) 25 Mg Tab.er.24h 25 Mg PO DAILY 12/06/15 Rx Simvastatin 20 Mg Tablet 1 Tab PO QHS 12/02/15 Reported Levothyroxine Sodium 100 Mcg Tablet 1 Tab PO DAILY 12/02/15 Reported Gabapentin 800 Mg Tablet 800 Mg PO QID 12/02/15 Reported Sinemet 25-100 Mg Tablet (Carbidopa/Levodopa) 1 Each Tablet 2 Tab PO TID 12/02/15 Reported Aspirin 81 Mg Tab.chew 1 Tab PO DAILY 12/02/15 Reported Comments 10/26/16 - CXR History: Cough, fever, shortness of breath Comparison is made yesterday study. The right PICC now extends deep into the right atrium. The heart is enlarged. The pulmonary vascularity is within normal limits. The left base has partially cleared with better definition of the hemidiaphragm. There is mild discoid atelectasis in the right base. The upper lung sim are clear. IMPRESSION: 1. The right PICC now extends into the right atrium. 2. Cardiomegaly without vascular congestion. 3. Improving mild left basilar atelectasis/infiltrate. 4. Mild right basilar atelectasis. Impression . - Acute Hypoxemic Respiratory Failure - LLL lung infiltrate - Small-bowel obstruction s/p exploratory laparotomy 10/13/16. - post op ileus - critical illness myopathy - Chronic kidney disease stage III - Seizure disorder. - Parkinson's disease. - Hypothyroidism. - Peripheral neuropathy. - Hypertension. - paroxysmal atrial fibrillation Plan . - Follow cultures, CXR improving - Encourage IS; Pulmonary clearance; may need EzPAP - suspect CXR is atelectatic changes. - NTS prn if needed - May need BIPAP, and monitor closely - Monitor I/Os: and would continue gentle diuresis - Abx started this AM. Currently on zyvox and zosyn - Abx per iD - continue TPN - Passing flatulence and continue to facilitate BM's - GI ppx - dvt ppx ROXIE RINALDI MD Oct 27, 2016 14:23
[2016-10-27] MEDS ORDERED: DIPHENHYDRAMINE 50 MG/ML VIAL IM ONE (14:30)
[2016-10-27] MEDS: MICAFUNGIN 100 MG in IV DEXTROSE 5% 100 ML IV SCH (20:25)
[2016-10-27] MEDS ORDERED: AMINO ACIDS IV SCH ×11 (22:00)
[2016-10-27] MEDS ORDERED: TOTAL PARENTERAL NUTRITION IV SCH ×11 (22:00)
[2016-10-27] MEDS ORDERED: DEXTROSE 70% IV SCH ×11 (22:00)
[2016-10-27] MEDS ORDERED: [UNRECOGNIZED DRUG - OTHER] IV SCH ×11 (22:00)
[2016-10-28] VITALS (16 sets, daily range): BP systolic 109–155; BP diastolic 57–77
[2016-10-28] MEDS: MORPHINE SULFATE 2 MG/ML DISP.SYRIN. IV PRN ×3 (01:36→20:01)
[2016-10-28] MEDS: PIPERACILLIN/TAZOBACTAM 3.375 GM in IV NORMAL SALINE 50ML 50 ML IV SCH ×3 (05:46→22:54)
[2016-10-28] MEDS: MORPHINE SULFATE 4 MG/ML DISP.SYRIN. IV PRN ×4 (05:52→16:54)
[2016-10-28] MEDS: IV 1/2 NORMAL SALINE 1,000 ML IV SCH (05:53)
[2016-10-28] MEDS: PANTOPRAZOLE IV PUSH 40 MG VIAL. IVP SCH (05:56)
[2016-10-28] MEDS: IPRATRPIUM/ALBUTEROL 0.5/2.5MG 3 ML NEBU. NEB SCH ×4 (07:03→19:35)
[2016-10-28 07:30] LABS: HCO3 ABG 27 mmol/L (21-28); PCO2 ABG 49 mmHg (35-46); PH ABG 7.36 (7.35-7.45); SAT O2 ABG 82 % (92-99)
[2016-10-28 07:45] LABS: FIO2 ABG 50%; PO2 ABG 50 mmHg (65-108)
--- NOTE | 2016-10-28 07:57 | PDOC ---
Infectious Disease Note Subjective Subjective SOA and has some back and abd pain No N/V ROS ROS GEN: Denies fevers, chills, sweats HEENT: Denies blurred vision, sore throat CV: Denies chest pain GI: Denies n/v/d NEURO: Denies confusion, dizziness MSK: Denies weakness, joint pain/swelling Vital Sign Vital Signs Vital Signs Date Time Temp Pulse Resp B/P Pulse Ox O2 Delivery O2 Flow Rate FiO2 10/28/16 07:03 83 Nasal Cannula 6.0 10/28/16 06:22 16 10/28/16 03:00 98.3 98 126/62 98.3 Physical Exam PHYSICAL EXAM GENERAL: In bed, NAD, coop on facemask HEENT: OC/OP edentulous. pink and dry NECK: Supple, no JVD, no LN LUNGS: Still coarse on right HEART: S1S2, no gallop, no murmur ABD: Obese, hypoactive BS, NT light palpation. No guard/No rebound. Incision well-approx. No redness or drainage. EXT: BLE trace edema. No cyanosis MOBILE THERAPIST: Alert, 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. + tremor SKIN: No rash Labs Lab Laboratory Tests Test 10/28/16 07:26 O2 Saturation 82% (92-99) Arterial Blood pH 7.36 (7.35-7.45) Arterial Blood pCO2 at Patient Temp 49mmHg (35-46) Arterial Blood pO2 at Patient Temp 50mmHg (65-108) Arterial Blood HCO3 27mmol/L (21-28) Arterial Blood Base Excess 1mmol/L (-3-3) FiO2 50% Micro Klebsiella pneumoniae 50,000-100,000 colony forming units per mL ANTIMICROBIAL SUSCEPTIBILITY Final Comment S = Susceptible; I = Intermediate; R = Resistant P = Positive; N = Negative MICS are expressed in micrograms per mL Antibiotic RSLT#1 RSLT#2 RSLT#3 RSLT#4 Amoxicillin/Clavulanic Acid S Ampicillin R Cefepime S Ceftriaxone S Cefuroxime S Cephalothin S Ciprofloxacin S Ertapenem S Gentamicin S Imipenem S Levofloxacin S Nitrofurantoin S Piperacillin S Tetracycline S Tobramycin S Trimethoprim/Sulfa S Objective Assessment Acute resp failure now on facemask. May need lasix having received PRBCs, ? aspiration. ? LLL infiltrate Fever - ? Infection vs. PRBCs Acute anemia s/p PRBCs Staph aureus sputum 10/26 Coarse right breath sounds TAYLOR Klebsiella UTI 10/04 although a lot of squamous cells present on UA Small bowel obstruction - seems improved and no NGT Left hand pain and warmth - better with less edema N/V - better Dislodgement of NGT - out Hiatal hernia + MRSA Cipro allergy. Seizure disorder Parkinson's disease h/o UTI: Citrobacter & Klebsiella h/o E. coli bacteremia Plan Plan of Care To be moved to ICU Cont Zyvox/Zosyn/Micafungin CXR ordered F/u labs ordered for this am and are pending. Added Lactic F/u cults May need CT abd/pel if hgb remains low Critically ill SAMI MARTINEZ MD Oct 28, 2016 07:57
[2016-10-28] MEDS ORDERED: FUROSEMIDE 20 MG/2 ML VIAL IVP ONE (08:00)
[2016-10-28 08:18] LABS: BASO # 0.1 x10^3/uL (0.0-0.2); BASO % 1 % (0-3); EOS % 4 % (0-3); HEMATOCRIT 28.2 % (39.0-53.0); HEMOGLOBIN 9.3 g/dL (13.0-17.5); LYMPH # 1.4 x10^3/uL (1.0-4.8); LYMPH % 18 % (24-48); MEAN CORPUSCULAR HEMOGLOBIN 31 pg (25-35); MEAN CORPUSCULAR HGB CONC 33 g/dL (31-37); MEAN CORPUSCULAR VOLUME 94 fL (79-100); MONO % 10 % (0-9); NEUT % 67 % (31-73); PLATELET COUNT 254 x10^3/uL (140-400); RED BLOOD COUNT 3.01 x10^6/uL (4.30-5.70); RED CELL DISTRIBUTION WIDTH 17.5 % (11.5-14.5); WHITE BLOOD COUNT 7.6 x10^3/uL (4.0-11.0)
[2016-10-28 08:31] LABS: CREATININE 1.5 mg/dL (0.7-1.3); GFR 44.5; POTASSIUM 5.9 mmol/L (3.5-5.1)
--- NOTE | 2016-10-28 08:43 | RAD ---
Indication: Hypoxia. Time of exam 0823 hours. Comparison is made with prior chest from 10/26/2016. Right upper extremity PICC line is in similar position with tip overlying the right atrium. Worsening atelectasis the left lung is noted. There appears to be left upper lobe collapse. There is also significant atelectasis and consolidation in the left base. Minimal discoid atelectasis in the right lung base is noted. There is no pneumothorax. Impression: Worsening atelectasis involving the left lung, as described when compared with exam 2 days earlier.
[2016-10-28] MEDS: LEVETIRACETAM 500 MG in IV NORMAL SALINE 100ML 100 ML IV SCH ×2 (09:42→20:01)
[2016-10-28] MEDS: LEVOTHYROXINE SODIUM 50 MCG in IV NORMAL SALINE 50ML 5 ML IVP SCH (09:42)
[2016-10-28] MEDS ORDERED: FUROSEMIDE 40 MG/4 ML VIAL IVP ONE ×2 (10:00→11:00)
--- NOTE | 2016-10-28 10:08 | PDOC ---
Renal-Progress Notes Subjective Notes Notes SOME SOB History of Present Illness Hx of present illness STABLE Vitals Vitals Vital Signs Date Time Temp Pulse Resp B/P Pulse Ox O2 Delivery O2 Flow Rate FiO2 10/28/16 09:42 23 96 BiPAP/CPAP 10/28/16 07:03 6.0 10/28/16 07:00 100.6 102 129/57 100.6 Weight Weight [ ] I.O. Intake and Output Intake and Output 10/28/16 07:00 Intake Total 3562 ml Balance 3562 ml Blood Product 780 ml Blood Product IV Normal Saline Flush 770 ml Other 2012 ml Labs Labs Laboratory Tests Test 10/28/16 07:26 10/28/16 08:00 O2 Saturation 82% (92-99) Arterial Blood pH 7.36 (7.35-7.45) Arterial Blood pCO2 at Patient Temp 49mmHg (35-46) Arterial Blood pO2 at Patient Temp 50mmHg (65-108) Arterial Blood HCO3 27mmol/L (21-28) Arterial Blood Base Excess 1mmol/L (-3-3) FiO2 50% White Blood Count 7.6x10^3/uL (4.0-11.0) Red Blood Count 3.01x10^6/uL (4.30-5.70) Hemoglobin 9.3g/dL (13.0-17.5) Hematocrit 28.2% (39.0-53.0) Mean Corpuscular Volume 94fL (79-100) Mean Corpuscular Hemoglobin 31pg (25-35) Mean Corpuscular Hemoglobin Concent 33g/dL (31-37) Red Cell Distribution Width 17.5% (11.5-14.5) Platelet Count 254x10^3/uL (140-400) Neutrophils (%) (Auto) 67% (31-73) Lymphocytes (%) (Auto) 18% (24-48) Monocytes (%) (Auto) 10% (0-9) Eosinophils (%) (Auto) 4% (0-3) Basophils (%) (Auto) 1% (0-3) Neutrophils # (Auto) 5.1x10^3uL (1.8-7.7) Lymphocytes # (Auto) 1.4x10^3/uL (1.0-4.8) Monocytes # (Auto) 0.8x10^3/uL (0.0-1.1) Eosinophils # (Auto) 0.3x10^3/uL (0.0-0.7) Basophils # (Auto) 0.1x10^3/uL (0.0-0.2) Sodium Level 139mmol/L (136-145) Potassium Level 5.9mmol/L (3.5-5.1) Chloride Level 104mmol/L (98-107) Carbon Dioxide Level 27mmol/L (21-32) Anion Gap 8 (6-14) Blood Urea Nitrogen 28mg/dL (8-26) Creatinine 1.5mg/dL (0.7-1.3) Estimated GFR (Cockcroft-Gault) 44.5 Glucose Level 128mg/dL (70-99) Lactic Acid Level 1.0mmol/L (0.4-2.0) Calcium Level 8.0mg/dL (8.5-10.1) Troponin I Quantitative 0.047ng/mL (0.000-0.055) Micro Micro Microbiology 10/26/16 Blood Culture - Preliminary, Resulted NO GROWTH AFTER 1 DAY 10/26/16 Gram Stain - Final, Complete 10/13/16 Urine Culture - Final, Complete 10/13/16 Urine Culture Result 1 (MANDEEP) - Final, Complete Review of Systems Constitutional: yes: no symptom reported Physical Exam General Appearance: no apparent distress Skin: warm Respiratory: bilateral CTA Heart: S1S2, RRR Abdomen: soft, bowel sounds present Extremities: pulses present Neurology: alert Assessment Assessment IMP RESP FAILURE-HYPERVOLEMIA TAYLOR-IMPROVED WITH CR OF 1.5 CKD STAGE 3 WITH CR OF 1.4-1.6 DEHYDRATION-BETTER HYPERKALEMIA SBO PLAN HOLD TPN DUE TO HIGH K AND RESUME ONCE TPN CHANGES MADE STOP IVF'S IV LASIX WILL FOLLOW CONI GLYNN MD Oct 28, 2016 10:08
--- NOTE | 2016-10-28 10:24 | EKG ---
[facility] [address] [place] [address] Test Date: 2016-10-28 Test Time: 07:45:23 Pat Name: AIDEN TEJEDA Department: Room: 107 1 Gender: M Missionary Coordinator: YESSICA : [id number] Requested By: RICHARD [place] Order Number: [id number] Reading MD: Griffin Knox Measurements Intervals [place] Rate: 111 P: HI: QRS: -42 QRSD: 128 T: 31 QT: 338 QTc: 463 Interpretive Statements SUSPECT SINUS RHYTHM, BASELINE ARTIFACT CANNOT RULE OUT UNDERLYING AFIB. Electronically Signed On 10-28-2016 14:07:20 JOURNEYMAN GLAZIER by Griffin Knox
[2016-10-28] MEDS: TPN PER PHARMACY MC PRN (10:32)
--- NOTE | 2016-10-28 10:33 | PDOC ---
PULMONARY PROGRESS NOTES Subjective rapid response called due to severe hypoxia transfer to ICU ,on 100%FIO2/BIPAP Large left mucous plug Vitals Vital Signs Date Time Temp Pulse Resp B/P Pulse Ox O2 Delivery O2 Flow Rate FiO2 10/28/16 09:42 23 96 BiPAP/CPAP 10/28/16 07:03 6.0 10/28/16 07:00 100.6 102 129/57 100.6 General: Mild Distress Lungs: Other (decrease bs L) Cardiovascular: S1, S2 Abdomen: Soft Neuro Exam: Alert, Oriented Extremities: Other (2+ edema BL ) Skin: Warm, Dry Labs Laboratory Tests Test 10/27/16 04:00 10/28/16 07:26 10/28/16 08:00 White Blood Count 4.5x10^3/uL (4.0-11.0) 7.6x10^3/uL (4.0-11.0) Red Blood Count 1.93x10^6/uL (4.30-5.70) 3.01x10^6/uL (4.30-5.70) Hemoglobin 6.1g/dL (13.0-17.5) 9.3g/dL (13.0-17.5) Hematocrit 18.7% (39.0-53.0) 28.2% (39.0-53.0) Mean Corpuscular Volume 97fL (79-100) 94fL (79-100) Mean Corpuscular Hemoglobin 32pg (25-35) 31pg (25-35) Mean Corpuscular Hemoglobin Concent 33g/dL (31-37) 33g/dL (31-37) Red Cell Distribution Width 15.7% (11.5-14.5) 17.5% (11.5-14.5) Platelet Count 241x10^3/uL (140-400) 254x10^3/uL (140-400) Neutrophils (%) (Auto) 75% (31-73) 67% (31-73) Lymphocytes (%) (Auto) 14% (24-48) 18% (24-48) Monocytes (%) (Auto) 10% (0-9) 10% (0-9) Eosinophils (%) (Auto) 1% (0-3) 4% (0-3) Basophils (%) (Auto) 1% (0-3) 1% (0-3) Neutrophils # (Auto) 3.3x10^3uL (1.8-7.7) 5.1x10^3uL (1.8-7.7) Lymphocytes # (Auto) 0.6x10^3/uL (1.0-4.8) 1.4x10^3/uL (1.0-4.8) Monocytes # (Auto) 0.4x10^3/uL (0.0-1.1) 0.8x10^3/uL (0.0-1.1) Eosinophils # (Auto) 0.0x10^3/uL (0.0-0.7) 0.3x10^3/uL (0.0-0.7) Basophils # (Auto) 0.0x10^3/uL (0.0-0.2) 0.1x10^3/uL (0.0-0.2) Sodium Level 139mmol/L (136-145) 139mmol/L (136-145) Potassium Level 4.6mmol/L (3.5-5.1) 5.9mmol/L (3.5-5.1) Chloride Level 103mmol/L (98-107) 104mmol/L (98-107) Carbon Dioxide Level 29mmol/L (21-32) 27mmol/L (21-32) Anion Gap 7 (6-14) 8 (6-14) Blood Urea Nitrogen 38mg/dL (8-26) 28mg/dL (8-26) Creatinine 1.8mg/dL (0.7-1.3) 1.5mg/dL (0.7-1.3) Estimated GFR (Cockcroft-Gault) 36.0 44.5 BUN/Creatinine Ratio 21 (6-20) Glucose Level 129mg/dL (70-99) 128mg/dL (70-99) Calcium Level 7.4mg/dL (8.5-10.1) 8.0mg/dL (8.5-10.1) Phosphorus Level 3.5mg/dL (2.6-4.7) Total Bilirubin 0.3mg/dL (0.2-1.0) Aspartate Amino Transf (AST/SGOT) 60U/L (15-37) Alanine Aminotransferase (ALT/SGPT) 63U/L (16-63) Alkaline Phosphatase 91U/L (46-116) Total Protein 5.4g/dL (6.4-8.2) Albumin 1.5g/dL (3.4-5.0) Albumin/Globulin Ratio 0.4 (1.0-1.7) O2 Saturation 82% (92-99) Arterial Blood pH 7.36 (7.35-7.45) Arterial Blood pCO2 at Patient Temp 49mmHg (35-46) Arterial Blood pO2 at Patient Temp 50mmHg (65-108) Arterial Blood HCO3 27mmol/L (21-28) Arterial Blood Base Excess 1mmol/L (-3-3) FiO2 50% Lactic Acid Level 1.0mmol/L (0.4-2.0) Troponin I Quantitative 0.047ng/mL (0.000-0.055) Laboratory Tests Test 10/28/16 07:26 10/28/16 08:00 O2 Saturation 82% (92-99) Arterial Blood pH 7.36 (7.35-7.45) Arterial Blood pCO2 at Patient Temp 49mmHg (35-46) Arterial Blood pO2 at Patient Temp 50mmHg (65-108) Arterial Blood HCO3 27mmol/L (21-28) Arterial Blood Base Excess 1mmol/L (-3-3) FiO2 50% White Blood Count 7.6x10^3/uL (4.0-11.0) Red Blood Count 3.01x10^6/uL (4.30-5.70) Hemoglobin 9.3g/dL (13.0-17.5) Hematocrit 28.2% (39.0-53.0) Mean Corpuscular Volume 94fL (79-100) Mean Corpuscular Hemoglobin 31pg (25-35) Mean Corpuscular Hemoglobin Concent 33g/dL (31-37) Red Cell Distribution Width 17.5% (11.5-14.5) Platelet Count 254x10^3/uL (140-400) Neutrophils (%) (Auto) 67% (31-73) Lymphocytes (%) (Auto) 18% (24-48) Monocytes (%) (Auto) 10% (0-9) Eosinophils (%) (Auto) 4% (0-3) Basophils (%) (Auto) 1% (0-3) Neutrophils # (Auto) 5.1x10^3uL (1.8-7.7) Lymphocytes # (Auto) 1.4x10^3/uL (1.0-4.8) Monocytes # (Auto) 0.8x10^3/uL (0.0-1.1) Eosinophils # (Auto) 0.3x10^3/uL (0.0-0.7) Basophils # (Auto) 0.1x10^3/uL (0.0-0.2) Sodium Level 139mmol/L (136-145) Potassium Level 5.9mmol/L (3.5-5.1) Chloride Level 104mmol/L (98-107) Carbon Dioxide Level 27mmol/L (21-32) Anion Gap 8 (6-14) Blood Urea Nitrogen 28mg/dL (8-26) Creatinine 1.5mg/dL (0.7-1.3) Estimated GFR (Cockcroft-Gault) 44.5 Glucose Level 128mg/dL (70-99) Lactic Acid Level 1.0mmol/L (0.4-2.0) Calcium Level 8.0mg/dL (8.5-10.1) Troponin I Quantitative 0.047ng/mL (0.000-0.055) Medications Active Scripts Medications Dose Route/Sig Days Date Category Hydrocodone-Apap 5-325 (Hydrocodone Bit/Acetaminophen) 1 Each Tablet 1 Tab PO PRN Q6HRS PRN 08/28/16 Rx Flomax (Tamsulosin Hcl) 0.4 Mg Cap.er.24h 1 Cap PO QHS 01/01/16 Reported Tramadol Hcl 100 Mg Tab.er.24h 100 Mg PO QID 01/01/16 Reported Levetiracetam 250 Mg Tablet 250 Mg PO BID 01/01/16 Reported Dulcolax (Bisacodyl) 10 Mg Supp.rect 10 Mg RC PRN DAILY PRN 12/21/15 Reported Maalox Advanced Suspension (Mag Hydrox/Al Hydrox/Simeth) 770 Ml Oral.susp 30 Ml PO Q2HR PRN 12/21/15 Reported Milk Of Magnesia (Magnesium Hydroxide) 400 Mg/5 Ml Oral.susp 30 Ml PO DAILY PRN 12/21/15 Reported Robitussin Cough-Chest Dm Liq (Guaifenesin/Dextromethorphan) 118 Ml Liquid 10 Ml PO Q4HRS PRN 12/21/15 Reported Trazodone Hcl 50 Mg Tablet 1 Tab PO QHS 12/21/15 Reported Tylenol (Acetaminophen) 325 Mg Tablet 650 Mg PO Q6HRS PRN 12/21/15 Reported Pramipexole Dihydrochloride (Pramipexole Di-Hcl) 0.5 Mg Tablet 0.5 Mg PO TID 12/08/15 Reported Metoprolol Succinate ( Xl ) (Metoprolol Succinate) 25 Mg Tab.er.24h 25 Mg PO DAILY 12/06/15 Rx Simvastatin 20 Mg Tablet 1 Tab PO QHS 12/02/15 Reported Levothyroxine Sodium 100 Mcg Tablet 1 Tab PO DAILY 12/02/15 Reported Gabapentin 800 Mg Tablet 800 Mg PO QID 12/02/15 Reported Sinemet 25-100 Mg Tablet (Carbidopa/Levodopa) 1 Each Tablet 2 Tab PO TID 12/02/15 Reported Aspirin 81 Mg Tab.chew 1 Tab PO DAILY 12/02/15 Reported Comments CXR 10/28 LARGE LEFT MUCOUS PLUG Impression . - Acute Hypoxemic Respiratory Failure ,worse this am due to large mucous plug left lung - Small-bowel obstruction s/p exploratory laparotomy 10/13/16. - post op ileus - critical illness myopathy - Chronic kidney disease stage III - Seizure disorder. - Parkinson's disease. - Hypothyroidism. - Peripheral neuropathy. - Hypertension. - paroxysmal atrial fibrillation Plan . - d/w patient the option of therapeutic Bronch.He will need intubation for this. He absolutely refuses it even intubation could be short term. He wants to . RN/Dr Watson witnessed his wish. wants DNR/DNI. d/w daughter.she will talk to him and let me know if he changes his mind. - NTS prn if needed - May need BIPAP, and monitor closely - Monitor I/Os: and would continue gentle diuresis - Abx started this AM. Currently on zyvox and zosyn - Abx per iD cct 40 min ROXIE RINALDI MD Oct 28, 2016 10:33
--- NOTE | 2016-10-28 10:57 | PDOC ---
PROGRESS NOTES Subjective Subjective transferred to icu via rapid response for hypoxia and placed on bipap. cxr shows collapse of left upper lung and worsening atelactasis LLL. seen with dr. Arnett and patients nurse. patient declined bronchoscopy to suction out mucus plug via intubation and told that he would without this procedure and he still declined and voiced his wish to . told him that the intubation was expected to be temporary and would expect to be extubated soon . he was made a DNR per his wishes. will consult palliative care and nurse to notify his daughter. Ananya.jalyn high 5.9 and will order iv lasix and d/c TPN and order iv fluids without kcl. Objective Objective Vital Signs Date Time Temp Pulse Resp B/P Pulse Ox O2 Delivery O2 Flow Rate FiO2 10/28/16 10:00 101 24 141/66 83 BiPAP/CPAP 10/28/16 07:03 6.0 10/28/16 07:00 100.6 100.6 Intake and Output 10/28/16 07:00 Intake Total 3562 ml Balance 3562 ml Blood Product 780 ml Blood Product IV Normal Saline Flush 770 ml Other 2012 ml Physical Exam Abdomen: Soft Heart: Regular rate, Normal S1, Normal S2 Extremities: Other (1 plus edema feetg) General: Alert HEENT: Atraumatic Lungs: Other (decreased breath sounds) Neuro: Normal speech Psych/Mental Status: Mood NL Skin: No rashes Assessment Assessment Problems Medical Problems:Small-bowel obstruction resolved exploratory laparotomy 10/13/16. lysis of adhesions. bowel viable. post op ileus. prolonged 2. Seizure disorder. 3. Parkinson's disease. 4. Hypothyroidism. 5. Peripheral neuropathy. 6. Hypertension. 7. Chronic kidney disease stage III. klebsiella uti treated suspected gout synovitis resolved peripheral edema critical illness myopathy hematemesis once resolved paroxysmal atrial fibrillation. not a good candidate for anticoagulants LLL lung infiltrate anemia suspected mucus plug with JENNY lung collapse and LLL atelactasis with resulting hypoxia hyperkalemia (1) SBO (small bowel obstruction) Status: Acute Plan Plan of Care continue bipap DNR consult palliative care d/c TPN iv fluids iv lasix times patient declined bronchoscopy via intubation prognosis poor without bronchoscopy to clear mucus plug Comment Review of Relevant I have reviewed the following items [place] (where applicable) has been applied. Labs Laboratory Tests Test 10/27/16 04:00 10/28/16 07:26 10/28/16 08:00 White Blood Count 4.5x10^3/uL (4.0-11.0) 7.6x10^3/uL (4.0-11.0) Red Blood Count 1.93x10^6/uL (4.30-5.70) 3.01x10^6/uL (4.30-5.70) Hemoglobin 6.1g/dL (13.0-17.5) 9.3g/dL (13.0-17.5) Hematocrit 18.7% (39.0-53.0) 28.2% (39.0-53.0) Mean Corpuscular Volume 97fL (79-100) 94fL (79-100) Mean Corpuscular Hemoglobin 32pg (25-35) 31pg (25-35) Mean Corpuscular Hemoglobin Concent 33g/dL (31-37) 33g/dL (31-37) Red Cell Distribution Width 15.7% (11.5-14.5) 17.5% (11.5-14.5) Platelet Count 241x10^3/uL (140-400) 254x10^3/uL (140-400) Neutrophils (%) (Auto) 75% (31-73) 67% (31-73) Lymphocytes (%) (Auto) 14% (24-48) 18% (24-48) Monocytes (%) (Auto) 10% (0-9) 10% (0-9) Eosinophils (%) (Auto) 1% (0-3) 4% (0-3) Basophils (%) (Auto) 1% (0-3) 1% (0-3) Neutrophils # (Auto) 3.3x10^3uL (1.8-7.7) 5.1x10^3uL (1.8-7.7) Lymphocytes # (Auto) 0.6x10^3/uL (1.0-4.8) 1.4x10^3/uL (1.0-4.8) Monocytes # (Auto) 0.4x10^3/uL (0.0-1.1) 0.8x10^3/uL (0.0-1.1) Eosinophils # (Auto) 0.0x10^3/uL (0.0-0.7) 0.3x10^3/uL (0.0-0.7) Basophils # (Auto) 0.0x10^3/uL (0.0-0.2) 0.1x10^3/uL (0.0-0.2) Sodium Level 139mmol/L (136-145) 139mmol/L (136-145) Potassium Level 4.6mmol/L (3.5-5.1) 5.9mmol/L (3.5-5.1) Chloride Level 103mmol/L (98-107) 104mmol/L (98-107) Carbon Dioxide Level 29mmol/L (21-32) 27mmol/L (21-32) Anion Gap 7 (6-14) 8 (6-14) Blood Urea Nitrogen 38mg/dL (8-26) 28mg/dL (8-26) Creatinine 1.8mg/dL (0.7-1.3) 1.5mg/dL (0.7-1.3) Estimated GFR (Cockcroft-Gault) 36.0 44.5 BUN/Creatinine Ratio 21 (6-20) Glucose Level 129mg/dL (70-99) 128mg/dL (70-99) Calcium Level 7.4mg/dL (8.5-10.1) 8.0mg/dL (8.5-10.1) Phosphorus Level 3.5mg/dL (2.6-4.7) Total Bilirubin 0.3mg/dL (0.2-1.0) Aspartate Amino Transf (AST/SGOT) 60U/L (15-37) Alanine Aminotransferase (ALT/SGPT) 63U/L (16-63) Alkaline Phosphatase 91U/L (46-116) Total Protein 5.4g/dL (6.4-8.2) Albumin 1.5g/dL (3.4-5.0) Albumin/Globulin Ratio 0.4 (1.0-1.7) O2 Saturation 82% (92-99) Arterial Blood pH 7.36 (7.35-7.45) Arterial Blood pCO2 at Patient Temp 49mmHg (35-46) Arterial Blood pO2 at Patient Temp 50mmHg (65-108) Arterial Blood HCO3 27mmol/L (21-28) Arterial Blood Base Excess 1mmol/L (-3-3) FiO2 50% Lactic Acid Level 1.0mmol/L (0.4-2.0) Troponin I Quantitative 0.047ng/mL (0.000-0.055) Laboratory Tests Test 10/28/16 07:26 10/28/16 08:00 O2 Saturation 82% (92-99) Arterial Blood pH 7.36 (7.35-7.45) Arterial Blood pCO2 at Patient Temp 49mmHg (35-46) Arterial Blood pO2 at Patient Temp 50mmHg (65-108) Arterial Blood HCO3 27mmol/L (21-28) Arterial Blood Base Excess 1mmol/L (-3-3) FiO2 50% White Blood Count 7.6x10^3/uL (4.0-11.0) Red Blood Count 3.01x10^6/uL (4.30-5.70) Hemoglobin 9.3g/dL (13.0-17.5) Hematocrit 28.2% (39.0-53.0) Mean Corpuscular Volume 94fL (79-100) Mean Corpuscular Hemoglobin 31pg (25-35) Mean Corpuscular Hemoglobin Concent 33g/dL (31-37) Red Cell Distribution Width 17.5% (11.5-14.5) Platelet Count 254x10^3/uL (140-400) Neutrophils (%) (Auto) 67% (31-73) Lymphocytes (%) (Auto) 18% (24-48) Monocytes (%) (Auto) 10% (0-9) Eosinophils (%) (Auto) 4% (0-3) Basophils (%) (Auto) 1% (0-3) Neutrophils # (Auto) 5.1x10^3uL (1.8-7.7) Lymphocytes # (Auto) 1.4x10^3/uL (1.0-4.8) Monocytes # (Auto) 0.8x10^3/uL (0.0-1.1) Eosinophils # (Auto) 0.3x10^3/uL (0.0-0.7) Basophils # (Auto) 0.1x10^3/uL (0.0-0.2) Sodium Level 139mmol/L (136-145) Potassium Level 5.9mmol/L (3.5-5.1) Chloride Level 104mmol/L (98-107) Carbon Dioxide Level 27mmol/L (21-32) Anion Gap 8 (6-14) Blood Urea Nitrogen 28mg/dL (8-26) Creatinine 1.5mg/dL (0.7-1.3) Estimated GFR (Cockcroft-Gault) 44.5 Glucose Level 128mg/dL (70-99) Lactic Acid Level 1.0mmol/L (0.4-2.0) Calcium Level 8.0mg/dL (8.5-10.1) Troponin I Quantitative 0.047ng/mL (0.000-0.055) Microbiology 10/26/16 Blood Culture - Preliminary, Resulted NO GROWTH AFTER 1 DAY 10/26/16 Gram Stain - Final, Complete 10/13/16 Urine Culture - Final, Complete 10/13/16 Urine Culture Result 1 (MANDEEP) - Final, Complete Medications Current Medications Fentanyl Citrate 50 mcg 50 mcg PRN Q15MIN PRN IV PAIN GREATER THAN 3/10 Last administered on 09/30/16at 19:35; Start 09/30/16 at 17:30; Stop 10/01/16 at 04 :24; Status DC Lactated Ringer's (Iv Lactated Ringers) 1,000 ml @ 100 mls/hr Q10H IV Last administered on 09/30/16at 19:35; Start 09/30/16 at 17:28; Stop 10/01/16 at 03 :27; Status DC Ondansetron HCl (Zofran) 4 mg 1X ONCE IV Last administered on 09/30/16at 17:44 ; Start 09/30/16 at 17:30; Stop 09/30/16 at 17:32; Status DC Fentanyl Citrate (Fentanyl 2ml Vial) 50 mcg 1X ONCE IV ; Start 09/30/16 at 19: 15; Stop 10/01/16 at 04:24; Status DC Ondansetron HCl (Zofran) 4 mg PRN Q8HRS PRN IV NAUSEA/VOMITING Last administered on 09/30/16at 22:07; Start 09/30/16 at 19:15; Stop 10/01/16 at 19 :14; Status DC Fentanyl Citrate 50 mcg 50 mcg PRN Q2HR PRN IV PAIN Last administered on at 16:54; Start 09/30/16 at 19:15; Stop 10/01/16 at 19:14; Status DC Sodium Chloride 1,000 ml @ 100 mls/hr Q10H IV ; Start 09/30/16 at 19:30; Stop 10/01/16 at 04:24; Status DC Potassium Chloride/Dextrose/ Sod Cl (KCl 20 Meq In D5W-1/2 NS) 1,000 ml @ 125 mls/hr Q8H IV Last administered on 10/04/16at 06:02; Start 09/30/16 at 20:00; Stop 10/04/16 at 10:21; Status DC Enoxaparin Sodium 40 mg 40 mg Q24H SQ Last administered on 10/13/16 08:14; Start 10/01/16 at 09:00; Stop 10/13/16 at 08:36; Status DC Levetiracetam/ Sodium Chloride (Keppra/Iv Sodium Chloride 0.9% 100ml) 105 ml @ 400 mls/hr Q12HR IV Last administered on 10/05/16 09:30; Start 09/30/16 at 21: 00; Stop 10/05/16 at 10:24; Status DC Morphine Sulfate 2 mg PRN Q4HRS PRN IV SEVERE PAIN Last administered on 10:13; Start 09/30/16 at 19:30; Stop 10/05/16 at 10:24; Status DC Acetaminophen (Tylenol) 650 mg PRN Q6HRS PRN CA MILD PAIN / TEMP; Start at 19:30; Stop 10/05/16 at 10:24; Status DC Ondansetron HCl (Zofran) 4 mg PRN Q6HRS PRN IV NAUSEA/VOMITING Last administered on 10/07/16 08:28; Start 09/30/16 at 19:30; Stop 10/09/16 at 12:08 ; Status DC Benzocaine (Hurricaine One) 1 spray STK-MED ONCE .ROUTE ; Start 09/30/16 at 19: 51; Stop 09/30/16 at 19:52; Status DC Morphine Sulfate 4 mg PRN Q4HRS PRN IV PAIN Last administered on 10/05/16 08:08 ; Start 10/01/16 at 20:00; Stop 10/05/16 at 10:24; Status DC Clonidine HCl 1 patch 1 patch WEEKLY TD Last administered on 10/03/16at 12:30; Start 10/03/16 at 10:00; Stop 10/05/16 at 10:24; Status DC Piperacillin Sod/ Tazobactam Sod/ Sodium Chloride (Zosyn/Iv Sodium Chloride 0.9 % 50ml) 50 ml @ 100 mls/hr Q6HRS IV Last administered on 10/09/16 06:26; Start 10/04/16 at 11:00; Stop 10/09/16 at 10:55; Status DC Vancomycin HCl 1 each 1 each PRN DAILY PRN MC SEE COMMENTS Last administered on 10/07/16 11:11; Start 10/04/16 at 10:15; Stop 10/07/16 at 11:28; Status DC Vancomycin HCl/ Sodium Chloride (Iv Sodium Chloride 0.9% 250ml) 250 ml @ 250 mls/hr Q24H IV ; Start 10/04/16 at 10:15; Status UNV Labetalol HCl (Normodyne) 20 mg PRN Q6HRS PRN IVP HYPERTENSION, SEE COMMENTS; Start 10/04/16 at 10:15; Stop 10/05/16 at 10:24; Status DC Hydralazine HCl 10 mg 10 mg PRN Q6HRS PRN IVP ELEVATED BP, SEE COMMENTS Last administered on 10/06/16 19:17; Start 10/04/16 at 10:15; Stop 10/12/16 at 10:40 ; Status DC Amino Acids/ Glycerin/ Electrolytes 1,000 ml @ 40 mls/hr Q24H IV Last administered on 10/06/16 09:59; Start 10/04/16 at 10:15; Stop 10/07/16 at 09:06 ; Status DC Vancomycin HCl 2 gm/Sodium Chloride 500 ml @ 250 mls/hr 1X ONCE IV Last administered on 10/04/16at 11:26; Start 10/04/16 at 10:45; Stop 10/04/16 at 12 :44; Status DC Vancomycin HCl/ Sodium Chloride (Iv Sodium Chloride 0.9% 500ml Bag) 500 ml @ 250 mls/hr Q24H IV Last administered on 10/06/16 11:47; Start 10/05/16 at 12:00 ; Stop 10/07/16 at 11:28; Status DC Vancomycin HCl 1 each 1X ONCE MC Last administered on 10/06/16 11:30; Start at 11:30; Stop 10/06/16 at 11:31; Status DC Aspirin (Children'S Aspirin) 81 mg [id number] PO Last administered on 10/13/16 08:15; Start 10/05/16 at 11:00; Stop 10/13/16 at 08:29; Status DC Gabapentin (Neurontin) 600 mg QID PO Last administered on 10/13/16 08:14; Start 10/05/16 at 13:00; Stop 10/14/16 at 08:47; Status DC Levetiracetam (Keppra) 250 mg BID PO Last administered on 10/13/16 08:17; Start 10/05/16 at 11:00; Stop 10/14/16 at 08:47; Status DC Levothyroxine Sodium (Synthroid) 100 mcg [id number] PO Last administered on 05:08; Start 10/05/16 at 10:30; Stop 10/14/16 at 08:48; Status DC Metoprolol Succinate (Toprol Xl) 25 mg DAILY PO Last administered on 10/13/16 08:16; Start 10/05/16 at 11:00; Stop 10/14/16 at 08:47; Status DC Pramipexole Dihydrochloride (miraPEX) 0.5 mg [id number] PO Last administered on 10/13 08:15; Start 10/05/16 at 11:00; Stop 10/14/16 at 08:48; Status DC Simvastatin (Zocor) 20 mg HS PO Last administered on 10/12/16 21:07; Start 10/05 at 21:00; Stop 10/14/16 at 08:48; Status DC Carbidopa/Levodopa (Sinemet Cr) 1 tab.sa TID PO Last administered on 10/13/16 08:16; Start 10/05/16 at 11:00; Stop 10/14/16 at 08:48; Status DC Tamsulosin HCl (Flomax) 0.4 mg QHS PO Last administered on 10/12/16 21:07; Start 10/05/16 at 21:00; Stop 10/14/16 at 08:48; Status DC Tramadol HCl (Ultram) 50 mg QID PO Last administered on 10/13/16 08:17; Start 10/05/16 at 13:00; Stop 10/14/16 at 08:48; Status DC Acetaminophen (Tylenol) 650 mg PRN Q4HRS PRN PO MILD PAIN / TEMP Last administered on 10/13/16 00:17; Start 10/05/16 at 10:15; Stop 10/14/16 at 08:48; Status DC Prednisone (Prednisone) 20 mg 1X ONCE PO Last administered on 10/06/16 11:01; Start 10/06/16 at 10:30; Stop 10/06/16 at 10:31; Status DC Prednisone (Prednisone) 10 mg [id number] PO Last administered on 10/13/16 08:15; Start 10/07/16 at 08:00; Stop 10/13/16 at 08:29; Status DC Al Hydroxide/Mg Hydroxide (Mylanta Plus Xs) 30 ml PRN Q4HRS PRN PO HEARTBURN / GAS Last administered on 10/12/16 21:07; Start 10/07/16 at 08:45; Stop 10/14/16 at 08:48; Status DC Pantoprazole Sodium (Protonix) 40 mg DAILYAC PO Last administered on 10/13/16 05:08; Start 10/07/16 at 10:00; Stop 10/13/16 at 06:45; Status DC Furosemide 40 mg 40 mg DAILY PO Last administered on 10/08/16 08:42; Start 10/07 at 10:00; Stop 10/08/16 at 08:56; Status DC Sodium Chloride (Iv Sodium Chloride 0.45%) 1,000 ml @ 60 mls/hr CONT PRN IV . ; Start 10/08/16 at 09:00; Stop 10/08/16 at 16:06; Status DC Bisacodyl 10 mg 10 mg 1X ONCE CA Last administered on 10/08/16 10:11; Start at 09:30; Stop 10/08/16 at 09:31; Status DC Sodium Chloride (Iv Sodium Chloride 0.45%) 1,000 ml @ 60 mls/hr [id number] IV Last administered on 10/09/16 02:52; Start 10/08/16 at 10:15; Stop 10/09/16 at 12: 00; Status DC Cefpodoxime Proxetil (Vantin) 200 mg BID PO ; Start 10/09/16 at 11:00; Stop at 12:08; Status DC Cefpodoxime Proxetil (Vantin) 100 mg BID PO Last administered on 10/13/16 08:16 ; Start 10/09/16 at 21:00; Stop 10/13/16 at 08:29; Status DC Ondansetron HCl (Zofran) 4 mg STK-MED ONCE .ROUTE Last administered on 01:24; Start 10/13/16 at 01:19; Stop 10/13/16 at 01:20; Status DC Ondansetron HCl (Zofran) 4 mg PRN Q6HRS PRN IV NAUSEA/VOMITING Last administered on 10/27/16 00:39; Start 10/13/16 at 02:00 Pantoprazole Sodium 40 mg 40 mg DAILYAC IVP Last administered on 10/28/16 05: 56; Start 10/13/16 at 07:30 Dextrose/Sodium Chloride (Iv D5% - NS) 1,000 ml @ 60 mls/hr [id number] IV Last administered on 10/13/16 09:25; Start 10/13/16 at 08:30; Stop 10/13/16 at 11:01; Status DC Sodium Polystyrene Sulfonate 15 gm 15 gm 1X ONCE PO Last administered on 09:26; Start 10/13/16 at 08:30; Stop 10/13/16 at 08:31; Status DC Piperacillin Sod/ Tazobactam Sod 3.375 gm/Sodium Chloride 50 ml @ 100 mls/hr Q6HRS IV Last administered on 10/19/16 12:42; Start 10/13/16 at 09:00; Stop at 15:06; Status DC Dextrose/Sodium Chloride (Iv D5% - 1/2 NS) 1,000 ml @ 50 mls/hr Q20H IV Last administered on 10/17/16t 00:16; Start 10/13/16 at 11:00; Stop 10/17/16 at 12:23 ; Status DC Ondansetron HCl (Zofran) 4 mg PRN Q6HRS PRN IV Nausea 1ST CHOICE; Start at 12:30; Stop 10/14/16 at 11:07; Status DC Fentanyl Citrate (Fentanyl 2ml Vial) 25 mcg PRN Q5MIN PRN IV MILD PAIN; Start 10/13/16 at 12:30; Stop 10/14/16 at 11:04; Status DC Fentanyl Citrate (Fentanyl 2ml Vial) 50 mcg PRN Q5MIN PRN IV MODERATE PAIN; Start 10/13/16 at 12:30; Stop 10/14/16 at 11:04; Status DC Morphine Sulfate 1 mg 1 mg PRN Q10MIN PRN IV SEVERE PAIN; Start 10/13/16 at 12: 30; Stop 10/14/16 at 11:00; Status DC Lactated Ringer's (Iv Lactated Ringers) 1,000 ml @ 0 mls/hr Q0M IV ; Start 10/13 at 12:17; Stop 10/14/16 at 00:16; Status DC Lidocaine HCl 2 ml 1X PRN PRN ID IV START; Start 10/13/16 at 12:30; Stop at 16:03; Status DC Hydromorphone HCl (Dilaudid) 0.5 mg PRN Q10MIN PRN IV SEV PAIN,Second choice; Start 10/13/16 at 12:30; Stop 10/14/16 at 11:04; Status DC Prochlorperazine Edisylate (Compazine) 5 mg PACU PRN PRN IV NAUSEA; Start at 12:30; Stop 10/14/16 at 11:00; Status DC Fentanyl Citrate (Fentanyl 2ml Vial) 50 mcg PRN Q5MIN PRN IV Acute Pain Last administered on 10/14/16t 10:04; Start 10/13/16 at 13:00; Stop 10/14/16 at 11:04 ; Status DC Morphine Sulfate 4 mg PRN Q10MIN PRN IV Moderate Pain; Start 10/13/16 at 13:00; Stop 10/14/16 at 11:00; Status DC Hydromorphone HCl (Dilaudid) 0.4 mg PRN Q10MIN PRN IV Moderate to severe pain; Start 10/13/16 at 13:00; Stop 10/14/16 at 11:04; Status DC Meperidine HCl (Demerol) 12.5 mg PRN Q5MIN PRN IV SHIVERING; Start 10/13/16 at 13:00; Stop 10/14/16 at 11:00; Status DC Prochlorperazine Edisylate (Compazine) 5 mg PRN Q6HRS PRN IV Nausea/Vomiting, 1st Choice; Start 10/13/16 at 13:00; Stop 10/14/16 at 11:00; Status DC Diphenhydramine HCl (Benadryl) 12.5 mg PRN Q2HR PRN IV ITCHING; Start 10/13/16 at 13:00; Stop 10/14/16 at 11:00; Status DC Midazolam HCl (Versed) 2 mg PRN 1X PRN IV PRIOR TO PROCEDURE; Start 10/13/16 at 13:00; Stop 10/14/16 at 11:07; Status DC Midazolam HCl (Versed) 1 mg PRN 1X PRN IV PRIOR TO PROCEDURE; Start 10/13/16 at 13:00; Stop 10/14/16 at 11:07; Status DC Fentanyl Citrate (Fentanyl 2ml Vial) 25 mcg PRN Q5MIN PRN IV X 2 DOSES FOR PAIN ; Start 10/13/16 at 13:00; Stop 10/14/16 at 11:04; Status DC Fentanyl Citrate 50 mcg 50 mcg PRN Q5MIN PRN IV X 2 DOSES FOR PAIN; Start at 13:00; Stop 10/14/16 at 11:04; Status DC Lactated Ringer's (Iv Lactated Ringers) 1,000 ml @ 125 mls/hr Q8H IV Last administered on 10/13/16t 13:30; Start 10/13/16 at 12:48; Stop 10/14/16 at 00:47; Status DC Lidocaine HCl 2 ml 1X PRN PRN ID IV START; Start 10/13/16 at 13:00; Stop at 16:03; Status DC Fentanyl Citrate (Fentanyl 2ml Vial) 25 mcg PRN Q2HR PRN IV PAIN MOD TO SEV; Start 10/13/16 at 20:30; Stop 10/14/16 at 14:15; Status DC Fentanyl Citrate (Fentanyl 2ml Vial) 50 mcg PRN Q2HR PRN IV PAIN MOD TO SEV Last administered on 10/14/16t 12:02; Start 10/13/16 at 20:30; Stop 10/14/16 at 14:15; Status DC Enoxaparin Sodium (Lovenox 40mg Syringe) 40 mg Q24H SQ Last administered on 09:18; Start 10/14/16 at 09:00; Stop 10/27/16 at 06:34; Status DC Fentanyl Citrate 100 mcg 100 mcg STK-MED ONCE .ROUTE ; Start 10/13/16 at 13:27; Stop 10/14/16 at 07:31; Status DC Propofol (Diprivan) 20 ml @ As Directed STK-MED ONCE IV ; Start 10/13/16 at 13:27 ; Stop 10/14/16 at 07:31; Status DC Rocuronium [place] (Zemuron) 50 mg STK-MED ONCE .ROUTE ; Start 10/13/16 at 13:27 ; Stop 10/14/16 at 07:31; Status DC Lidocaine HCl 100 mg STK-MED ONCE .ROUTE ; Start 10/13/16 at 13:27; Stop at 07:31; Status DC Fentanyl Citrate (Fentanyl 2ml Vial) 100 mcg STK-MED ONCE .ROUTE ; Start at 13:27; Stop 10/14/16 at 07:31; Status DC Ephedrine Sulfate (Akovaz) 50 mg STK-MED ONCE .ROUTE ; Start 10/13/16 at 14:00; Stop 10/14/16 at 07:31; Status DC Phenylephrine HCl 1 mg STK-MED ONCE IV ; Start 10/13/16 at 14:25; Stop 10/14/16 at 07:31; Status DC Desflurane (Suprane) 60 ml STK-MED ONCE IH ; Start 10/13/16 at 14:25; Stop at 07:31; Status DC Dexamethasone Sodium Phosphate (Decadron) 20 mg STK-MED ONCE .ROUTE ; Start 10/13 at 14:25; Stop 10/14/16 at 07:31; Status DC Ondansetron HCl (Zofran) 4 mg STK-MED ONCE .ROUTE ; Start 10/13/16 at 14:25; Stop 10/14/16 at 07:31; Status DC Famotidine (Pepcid) 20 mg STK-MED ONCE .ROUTE ; Start 10/13/16 at 14:25; Stop 07/21 at 07:31; Status DC Rocuronium [place] (Zemuron) 50 mg STK-MED ONCE .ROUTE ; Start 10/13/16 at 16:19 ; Stop 10/14/16 at 07:31; Status DC Fentanyl Citrate (Fentanyl 2ml Vial) 100 mcg STK-MED ONCE .ROUTE ; Start at 16:21; Stop 10/14/16 at 07:31; Status DC Desflurane (Suprane) 90 ml STK-MED ONCE IH ; Start 10/13/16 at 16:53; Stop at 07:31; Status DC Glycopyrrolate (Robinul) 1 mg STK-MED ONCE .ROUTE ; Start 10/13/16 at 17:00; Stop 10/14/16 at 07:31; Status DC Neostigmine Methylsulfate 5 mg STK-MED ONCE .ROUTE ; Start 10/13/16 at 17:00; Stop 10/14/16 at 07:31; Status DC Phenylephrine HCl 1 mg STK-MED ONCE IV ; Start 10/13/16 at 18:14; Stop 10/14/16 at 07:31; Status DC Fentanyl Citrate (Fentanyl 2ml Vial) 100 mcg STK-MED ONCE .ROUTE ; Start at 18:20; Stop 10/14/16 at 07:31; Status DC Fentanyl Citrate 100 mcg 100 mcg STK-MED ONCE .ROUTE ; Start 10/13/16 at 19:17; Stop 10/14/16 at 07:31; Status DC Levetiracetam 500 mg/Sodium Chloride 105 ml @ 400 mls/hr Q12HR IV Last administered on 10/28/16t 09:42; Start 10/14/16 at 09:00 Amino Acids/ Glycerin/ Electrolytes (Procalamine) 1,000 ml @ 80 mls/hr [id number] IV Last administered on 10/16/16 09:16; Start 10/14/16 at 11:15; Stop at 21:59; Status DC Morphine Sulfate 2 mg PRN Q4HRS PRN IV MODERATE PAIN Last administered on 00:57; Start 10/14/16 at 14:15; Stop 10/27/16 at 12:52; Status DC Morphine Sulfate 4 mg PRN Q4HRS PRN IV SEVERE PAIN Last administered on 08:57; Start 10/14/16 at 14:30 Info 1 each 1 each PRN DAILY PRN MC SEE COMMENTS Last administered on 10:32; Start 10/16/16 at 11:30 Sodium Chloride/ Potassium Chloride/ Potassium Phosphate/ Magnesium Sulfate/ Calcium Gluconate/ Multivitamins/ Minerals/Chromium/ Copper/Manganese/ Seleni/Zn /Total Parenteral Nutrition/Amino Acids/Dextrose/ Fat Emulsion Intravenous ( Sodium Chloride/ Potassium Phospha... 1,512 ml @ 63 mls/hr TPN CONT IV ; Start 10/16/16 at 22:00; Stop 10/17/16 at 12:50; Status DC Lidocaine/Sodium Bicarbonate 20 ml 20 ml STK-MED ONCE IJ ; Start 10/17/16 at 08: 20; Stop 10/17/16 at 08:21; Status DC Heparin Sodium/ Sodium Chloride 500 ml @ As Directed STK-MED ONCE .ROUTE ; Start 10/17/16 at 08:20; Stop 10/17/16 at 08:21; Status DC Lidocaine/Sodium Bicarbonate (Buffered Lidocaine 1%) 3 ml 1X ONCE IJ Last administered on 10/17/16 08:30; Start 10/17/16 at 08:30; Stop 10/17/16 at 08:31 ; Status DC Heparin Sodium/ Sodium Chloride 60 unit 1X ONCE IV Last administered on 08:30; Start 10/17/16 at 08:30; Stop 10/17/16 at 08:31; Status DC Iohexol (Omnipaque 300 Mg/ml) 50 ml STK-MED ONCE .ROUTE ; Start 10/17/16 at 09: 02; Stop 10/17/16 at 09:03; Status DC Iohexol (Omnipaque 300 Mg/ml) 43 ml 1X ONCE IART Last administered on 08:45; Start 10/17/16 at 09:30; Stop 10/17/16 at 09:33; Status DC Info (Do NOT chart on this entry -- for MONITORING) 1 each PRN DAILY PRN MC SEE COMMENTS; Start 10/17/16 at 09:45; Stop 10/19/16 at 09:44; Status DC Clonidine HCl (Catapres Tts-2) 1 patch WEEKLY TD Last administered on 09:12; Start 10/17/16 at 11:00; Stop 10/26/16 at 09:54; Status DC Labetalol HCl 20 mg 20 mg PRN Q6HRS PRN IVP HYPERTENSION, SEE COMMENTS Last administered on 10/26/16 17:55; Start 10/17/16 at 10:30 Sodium Chloride 1,000 ml @ 60 mls/hr [id number] IV Last administered on 06:32; Start 10/17/16 at 12:30; Stop 10/19/16 at 10:06; Status DC Sodium Chloride 90 meq/Potassium Chloride 50 meq/ Potassium Phosphate 13.6 mmol/ Magnesium Sulfate 10 meq/ Calcium Gluconate 10 meq/ Multivitamins/ Minerals 10 ml/ Chromium/Copper/ Manganese/Seleni/ Zn 1 ml/Total Parenteral Nutrition/Amino Acids/Dextrose/ Fat Emulsion Intravenous 1,512 ml @ 63 mls/hr TPN CONT IV Last administered on 10/17/16 21:09; Start 10/17/16 at 22:00; Stop 10/18/16 at 21:59; Status DC Sodium Chloride/ Potassium Chloride/ Potassium Phosphate/ Magnesium Sulfate/ Calcium Gluconate/ Multivitamins/ Minerals/Chromium/ Copper/Manganese/ Seleni/Zn /Total Parenteral Nutrition/Amino Acids/Dextrose/ Fat Emulsion Intravenous ( Sodium Chloride/ Potassium Phospha... 1,512 ml @ 63 mls/hr TPN CONT IV Last administered on 10/18/16 21:24; Start 10/18/16 at 22:00; Stop 10/19/16 at 21:59 ; Status DC Furosemide 20 mg 20 mg 1X ONCE IVP Last administered on 10/19/16 11:01; Start 10/19/16 at 10:30; Stop 10/19/16 at 10:31; Status DC Sodium Chloride 90 meq/Sodium Acetate 40 meq/ Potassium Chloride 50 meq/ Potassium Phosphate 13.6 mmol/Magnesium Sulfate 10 meq/ Calcium Gluconate 10 meq / Multivitamins/ Minerals 10 ml/ Chromium/Copper/ Manganese/Seleni/ Zn 1 ml/ Total Parenteral Nutrition/Amino Acids/Dextro... 1,920 ml @ 80 mls/hr TPN CONT IV Last administered on 10/19/16 22:29; Start 10/19/16 at 22:00; Stop at 21:59; Status DC Sodium Chloride 1,000 ml @ 45 mls/hr [id number] IV Last administered on 22:24; Start 10/20/16 at 09:00; Stop 10/21/16 at 09:26; Status DC Magnesium Sulfate/ Dextrose 50 ml @ 25 mls/hr PRN DAILY PRN IV for Mag < 1.7 on am labs; Start 10/20/16 at 13:15 Sodium Chloride/ Sodium Acetate/ Potassium Chloride/ Potassium Phosphate/ Magnesium Sulfate/ Calcium Gluconate/ Multivitamins/ Minerals/Chromium/ Copper/ Manganese/ Seleni/Zn/Total Parenteral Nutrition/Amino Acids/Dextrose/ Fat Emulsion Intravenous (Sodium Chloride/ Potass... 1,920 ml @ 80 mls/hr TPN CONT IV Last administered on 10/20/16 22:23; Start 10/20/16 at 22:00; Stop at 21:59; Status DC Acetaminophen/ Hydrocodone Bitart 1 tab 1 tab PRN Q4HRS PRN PO PAIN Last administered on 10/21/16 23:51; Start 10/21/16 at 09:30; Stop 10/22/16 at 10:39 ; Status DC Sodium Chloride/ Sodium Acetate/ Potassium Chloride/ Potassium Phosphate/ Magnesium Sulfate/ Calcium Gluconate/ Multivitamins/ Minerals/Chromium/ Copper/ Manganese/ Seleni/Zn/Total Parenteral Nutrition/Amino Acids/Dextrose/ Fat Emulsion Intravenous (Sodium Chloride/ Potass... 1,920 ml @ 80 mls/hr TPN CONT IV Last administered on 10/21/16 22:22; Start 10/21/16 at 22:00; Stop at 21:59; Status DC Metoclopramide HCl (Reglan) 10 mg 1X ONCE IV Last administered on 10/22/16 01 :56; Start 10/22/16 at 02:00; Stop 10/22/16 at 02:01; Status DC Lorazepam (Ativan) 1 mg 1X ONCE IV Last administered on 10/22/16 02:35; Start 10/22/16 at 02:30; Stop 10/22/16 at 02:31; Status DC Morphine Sulfate 2 mg PRN Q1HR PRN IV CHEST PAIN Last administered on 05:25; Start 10/22/16 at 02:30 Famotidine (Pepcid) 20 mg 1X ONCE IVP Last administered on 10/22/16 02:35; Start 10/22/16 at 02:30; Stop 10/22/16 at 02:31; Status DC Hydralazine HCl (Apresoline) 10 mg PRN Q6HRS PRN IVP ELEVATED BP, SEE COMMENTS ; Start 10/22/16 at 10:45 Iohexol (Omnipaque 300 Mg/ml) 60 ml 1X ONCE PO Last administered on 10/22/16 11:43; Start 10/22/16 at 11:00; Stop 10/22/16 at 11:01; Status DC Iohexol (Omnipaque 300 Mg/ml) 60 ml 1X ONCE IV Last administered on 10/22/16 11:19; Start 10/22/16 at 11:00; Stop 10/22/16 at 11:01; Status DC Info 1 each 1 each PRN DAILY PRN MC SEE COMMENTS; Start 10/22/16 at 11:00; Stop 10/24/16 at 10:59; Status DC Sodium Chloride 50 meq/Sodium Acetate 80 meq/ Potassium Chloride 50 meq/ Potassium Phosphate 18 mmol/ Magnesium Sulfate 10 meq/Calcium Gluconate 10 meq/ Multivitamins/ Minerals 10 ml/ Chromium/Copper/ Manganese/Seleni/ Zn 1 ml/Total Parenteral Nutrition/Amino Acids/Dextrose/ Fat Emuls... 1,920 ml @ 80 mls/hr TPN CONT IV Last administered on 10/22/16 21:46; Start 10/22/16 at 22:00; Stop 10/23/16 at 21:59; Status DC Levothyroxine Sodium/Sodium Chloride (Synthroid/Iv Sodium Chloride 0.9% 50ml) 5 ml @ 100 mls/hr DAILY IVP Last administered on 10/28/16 09:42; Start 10/23/16 at 14:00 Furosemide (Lasix) 20 mg 1X ONCE IVP Last administered on 10/23/16 12:45; Start 10/23/16 at 12:30; Stop 10/23/16 at 12:31; Status DC Alteplase, Recombinant 2 mg 2 mg 1X ONCE INT CAT Last administered on 12:45; Start 10/23/16 at 12:30; Stop 10/23/16 at 12:31; Status DC Sodium Chloride/ Sodium Acetate/ Potassium Chloride/ Potassium Phosphate/ Magnesium Sulfate/ Calcium Gluconate/ Multivitamins/ Minerals/Chromium/ Copper/ Manganese/ Seleni/Zn/Total Parenteral Nutrition/Amino Acids/Dextrose/ Fat Emulsion Intravenous (Sodium Chloride/ Potass... 1,920 ml @ 80 mls/hr TPN CONT IV Last administered on 10/23/16 21:37; Start 10/23/16 at 22:00; Stop at 21:59; Status DC Acetaminophen 650 mg 650 mg PRN Q6HRS PRN CA MILD PAIN / TEMP Last administered on 10/23/16 23:09; Start 10/23/16 at 23:00; Stop 10/26/16 at 10:04 ; Status DC Potassium Chloride/Dextrose/ Sod Cl 1,000 ml @ 80 mls/hr [id number] IV Last administered on 10/24/16 10:08; Start 10/24/16 at 09:30; Stop 10/24/16 at 13:58 ; Status DC Sodium Chloride 50 meq/Sodium Acetate 80 meq/ Potassium Chloride 50 meq/ Potassium Phosphate 18 mmol/ Magnesium Sulfate 10 meq/Calcium Gluconate 10 meq/ Multivitamins/ Minerals 10 ml/ Chromium/Copper/ Manganese/Seleni/ Zn 1 ml/Total Parenteral Nutrition/Amino Acids/Dextrose/ Fat Emuls... 1,920 ml @ 80 mls/hr TPN CONT IV Last administered on 10/24/16 22:10; Start 10/24/16 at 22:00; Stop 10/25/16 at 21:59; Status DC Sodium Chloride (Iv Sodium Chloride 0.45%) 1,000 ml @ 45 mls/hr [id number] IV Last administered on 10/24/16 14:00; Start 10/24/16 at 14:00; Stop 10/25/16 at 11:47; Status DC Albuterol/ Ipratropium (Duoneb) 3 ml RTQID NEB Last administered on 10/28/16 07:03; Start 10/25/16 at 12:00 Albuterol Sulfate (Ventolin Neb Soln) 2.5 mg PRN Q4HRS PRN NEB SOA; Start 10/25 at 12:00 Furosemide 40 mg 40 mg 1X ONCE IVP Last administered on 10/25/16 13:49; Start 10/25/16 at 11:45; Stop 10/25/16 at 11:53; Status DC Sodium Chloride 50 meq/Sodium Acetate 80 meq/ Potassium Chloride 50 meq/ Potassium Phosphate 18 mmol/ Magnesium Sulfate 10 meq/Calcium Gluconate 10 meq/ Multivitamins/ Minerals 10 ml/ Chromium/Copper/ Manganese/Seleni/ Zn 1 ml/Total Parenteral Nutrition/Amino Acids/Dextrose/ Fat Emuls... 1,920 ml @ 80 mls/hr TPN CONT IV Last administered on 10/25/16 21:06; Start 10/25/16 at 22:00; Stop 10/26/16 at 21:59; Status DC Albumin Human (Albuminar) 100 ml @ 100 mls/hr 1X ONCE IV Last administered on 10/25/16 18:19; Start 10/25/16 at 16:45; Stop 10/25/16 at 17:44; Status DC Furosemide 40 mg 40 mg 1X ONCE IVP Last administered on 10/25/16 18:24; Start 10/25/16 at 16:45; Stop 10/25/16 at 16:46; Status DC Piperacillin Sod/ Tazobactam Sod 3.375 gm/Sodium Chloride 50 ml @ 100 mls/hr Q8HRS IV Last administered on 10/28/16 05:46; Start 10/26/16 at 10:00 Linezolid (Zyvox Premix) 300 ml @ 300 mls/hr Q12HR IV Last administered on 09:42; Start 10/26/16 at 10:00 Bisacodyl 10 mg 10 mg 1X ONCE CA Last administered on 10/27/16 09:11; Start 10/26/16 at 10:00; Stop 10/26/16 at 10:02; Status DC Sodium Chloride (Iv Sodium Chloride 0.45%) 1,000 ml @ 45 mls/hr [id number] IV Last administered on 10/27/16 09:11; Start 10/26/16 at 10:00; Stop 10/28/16 at 10:07; Status DC Acetaminophen 650 mg 650 mg PRN Q6HRS PRN CA MILD PAIN / TEMP Last administered on 10/26/16 23:04; Start 10/26/16 at 10:00 Sodium Chloride 50 meq/Sodium Acetate 80 meq/ Potassium Chloride 50 meq/ Potassium Phosphate 18 mmol/ Magnesium Sulfate 10 meq/Calcium Gluconate 10 meq/ Multivitamins/ Minerals 10 ml/ Chromium/Copper/ Manganese/Seleni/ Zn 1 ml/Total Parenteral Nutrition/Amino Acids/Dextrose/ Fat Emuls... 1,920 ml @ 80 mls/hr TPN CONT IV Last administered on 10/26/16 22:02; Start 10/26/16 at 22:00; Stop 10/27/16 at 21:59; Status DC Micafungin Sodium/ Dextrose (Mycamine) 100 ml @ 100 mls/hr Q24H IV Last administered on 10/27/16 20:25; Start 10/26/16 at 21:00 Morphine Sulfate 2 mg 2 mg PRN Q4HRS PRN IV MODERATE PAIN Last administered on 10/28/16 01:36; Start 10/27/16 at 13:00 Sodium Chloride/ Sodium Acetate/ Potassium Chloride/ Potassium Phosphate/ Magnesium Sulfate/ Calcium Gluconate/ Multivitamins/ Minerals/Chromium/ Copper/ Manganese/ Seleni/Zn/Total Parenteral Nutrition/Amino Acids/Dextrose/ Fat Emulsion Intravenous (Sodium Chloride/ Potass... 1,920 ml @ 80 mls/hr TPN CONT IV Last administered on 10/27/16 22:51; Start 10/27/16 at 22:00; Stop at 21:59 Diphenhydramine HCl (Benadryl) 25 mg 1X ONCE IM Last administered on 14:08; Start 10/27/16 at 14:30; Stop 10/27/16 at 14:31; Status DC Furosemide (Lasix) 20 mg 1X ONCE IVP Last administered on 10/28/16t 08:15; Start 10/28/16 at 08:00; Stop 10/28/16 at 08:01; Status DC Furosemide 40 mg 40 mg 1X ONCE IVP ; Start 10/28/16 at 10:00; Stop 10/28/16 at 10:01; Status DC Sodium Chloride/ Sodium Acetate/ Sodium Phosphate/ Magnesium Sulfate/ Calcium Gluconate/ Multivitamins/ Minerals/Chromium/ Copper/Manganese/ Seleni/Zn/Total Parenteral Nutrition/Amino Acids/Dextrose/ Fat Emulsion Intravenous (Sodium Chloride/ Infuvite Adult/ Multitrace-5 Conc/ Tpn - Tpn Fluid/ Dextr... 1,080 ml @ 45 mls/hr TPN CONT IV ; Start 10/28/16 at 22:00; Stop 10/29/16 at 21:59 Active Scripts Active Hydrocodone-Apap 5-325 (Hydrocodone Bit/Acetaminophen) 1 Each Tablet 1 Tab PO PRN Q6HRS PRN Metoprolol Succinate ( Xl ) (Metoprolol Succinate) 25 Mg Tab.er.24h 25 Mg PO DAILY Reported Flomax (Tamsulosin Hcl) 0.4 Mg Cap.er.24h 1 Cap PO QHS Tramadol Hcl 100 Mg Tab.er.24h 100 Mg PO QID Levetiracetam 250 Mg Tablet 250 Mg PO BID Dulcolax (Bisacodyl) 10 Mg Supp.rect 10 Mg RC PRN DAILY PRN Maalox Advanced Suspension (Mag Hydrox/Al Hydrox/Simeth) 770 Ml Oral.susp 30 Ml PO Q2HR PRN Milk Of Magnesia (Magnesium Hydroxide) 400 Mg/5 Ml Oral.susp 30 Ml PO DAILY PRN Robitussin Cough-Chest Dm Liq (Guaifenesin/Dextromethorphan) 118 Ml Liquid 10 Ml PO Q4HRS PRN Trazodone Hcl 50 Mg Tablet 1 Tab PO QHS Tylenol (Acetaminophen) 325 Mg Tablet 650 Mg PO Q6HRS PRN Pramipexole Dihydrochloride (Pramipexole Di-Hcl) 0.5 Mg Tablet 0.5 Mg PO TID Simvastatin 20 Mg Tablet 1 Tab PO QHS Levothyroxine Sodium 100 Mcg Tablet 1 Tab PO DAILY Gabapentin 800 Mg Tablet 800 Mg PO QID Sinemet 25-100 Mg Tablet (Carbidopa/Levodopa) 1 Each Tablet 2 Tab PO TID Aspirin 81 Mg Tab.chew 1 Tab PO DAILY Vitals/I & O Vital Sign - Last 24 Hours 10/27/16 10/27/16 10/27/16 10/27/16 11:00 11:28 12:25 12:41 Temp 97.9 99.2 99.5 97.9 99.2 99.5 Pulse 89 86 86 Resp 16 20 20 B/P 100/37 121/45 114/52 Pulse Ox 90 O2 Delivery Nasal Cannula Nasal Cannula O2 Flow Rate 5.0 3.0 10/27/16 10/27/16 10/27/16 10/27/16 13:32 13:34 15:00 15:14 Temp 98.9 98.9 98.8 98.9 98.9 98.8 Pulse 98 98 80 Resp 20 18 B/P 116/44 116/44 109/40 Pulse Ox 90 90 O2 Delivery Nasal Cannula Nasal Cannula O2 Flow Rate 3.0 3.0 10/27/16 10/27/16 10/27/16 10/27/16 16:13 16:49 17:02 17:06 Temp 99.6 99.6 99.2 99.6 99.6 99.2 Pulse 91 91 91 Resp 18 16 B/P 119/52 119/52 120/45 Pulse Ox 90 O2 Delivery Nasal Cannula Nasal Cannula O2 Flow Rate 3.0 3.0 10/27/16 10/27/16 10/27/16 10/27/16 17:45 17:45 19:00 19:25 Temp 99.2 99.3 98.8 99.2 99.3 98.8 Pulse 96 88 96 Resp 16 16 B/P 117/55 122/48 130/59 Pulse Ox 90 99 O2 Delivery Nasal Cannula Nasal Cannula O2 Flow Rate 3.0 3.0 10/27/16 10/27/16 10/27/16 10/27/16 20:00 20:08 20:32 22:59 Resp 16 16 O2 Delivery Nasal Cannula Nasal Cannula Nasal Cannula Nasal Cannula O2 Flow Rate 4.0 3.0 4.0 4.0 10/27/16 10/28/16 10/28/16 10/28/16 23:00 01:36 02:06 03:00 Temp 97.6 98.3 97.6 98.3 Pulse 96 98 Resp 16 18 B/P 102/47 126/62 Pulse Ox 98 98 O2 Delivery Nasal Cannula Nasal Cannula Nasal Cannula Nasal Cannula O2 Flow Rate 3.0 4.0 4.0 3.0 10/28/16 10/28/16 10/28/16 10/28/16 03:05 05:52 06:22 07:00 Temp 100.6 100.6 Pulse 102 Resp 18 12 B/P 129/57 Pulse Ox 93 76 O2 Delivery Nasal Cannula Nasal Cannula Nasal Cannula O2 Flow Rate 5.0 4.0 4.0 5.0 10/28/16 10/28/16 10/28/16 10/28/16 07:03 08:30 08:57 09:42 Resp 20 23 Pulse Ox 83 95 96 O2 Delivery Nasal Cannula Bi-pap BiPAP/CPAP BiPAP/CPAP O2 Flow Rate 6.0 10/28/16 10:00 Pulse 101 Resp 24 B/P 141/66 Pulse Ox 83 O2 Delivery BiPAP/CPAP Intake and Output 10/27/16 10/27/16 10/28/16 15:00 23:00 07:00 Intake Total 330 ml 2092 ml 1140 ml Balance 330 ml 2092 ml 1140 ml RICHARD [place] MD Oct 28, 2016 10:57
[2016-10-28] MEDS ORDERED: IV DEXTROSE 5 %-0.45 % NACL 1,000 ML IV SCH (11:00)
--- NOTE | 2016-10-28 11:00 | PDOC ---
G I PROGRESS NOTE Subjective Says he's passing flatus. Denies much abdominal pain, nausea or vomiting. Objective Events of last evening noted. Physical Exam Lungs: coarse expiratory noises. RRR Abdomen soft, not tender. Rare if any bowel sounds. Review of Relevant I have reviewed the following items [place] (where applicable) has been applied. Labs Laboratory Tests Test 10/27/16 04:00 10/28/16 07:26 10/28/16 08:00 White Blood Count 4.5x10^3/uL (4.0-11.0) 7.6x10^3/uL (4.0-11.0) Red Blood Count 1.93x10^6/uL (4.30-5.70) 3.01x10^6/uL (4.30-5.70) Hemoglobin 6.1g/dL (13.0-17.5) 9.3g/dL (13.0-17.5) Hematocrit 18.7% (39.0-53.0) 28.2% (39.0-53.0) Mean Corpuscular Volume 97fL (79-100) 94fL (79-100) Mean Corpuscular Hemoglobin 32pg (25-35) 31pg (25-35) Mean Corpuscular Hemoglobin Concent 33g/dL (31-37) 33g/dL (31-37) Red Cell Distribution Width 15.7% (11.5-14.5) 17.5% (11.5-14.5) Platelet Count 241x10^3/uL (140-400) 254x10^3/uL (140-400) Neutrophils (%) (Auto) 75% (31-73) 67% (31-73) Lymphocytes (%) (Auto) 14% (24-48) 18% (24-48) Monocytes (%) (Auto) 10% (0-9) 10% (0-9) Eosinophils (%) (Auto) 1% (0-3) 4% (0-3) Basophils (%) (Auto) 1% (0-3) 1% (0-3) Neutrophils # (Auto) 3.3x10^3uL (1.8-7.7) 5.1x10^3uL (1.8-7.7) Lymphocytes # (Auto) 0.6x10^3/uL (1.0-4.8) 1.4x10^3/uL (1.0-4.8) Monocytes # (Auto) 0.4x10^3/uL (0.0-1.1) 0.8x10^3/uL (0.0-1.1) Eosinophils # (Auto) 0.0x10^3/uL (0.0-0.7) 0.3x10^3/uL (0.0-0.7) Basophils # (Auto) 0.0x10^3/uL (0.0-0.2) 0.1x10^3/uL (0.0-0.2) Sodium Level 139mmol/L (136-145) 139mmol/L (136-145) Potassium Level 4.6mmol/L (3.5-5.1) 5.9mmol/L (3.5-5.1) Chloride Level 103mmol/L (98-107) 104mmol/L (98-107) Carbon Dioxide Level 29mmol/L (21-32) 27mmol/L (21-32) Anion Gap 7 (6-14) 8 (6-14) Blood Urea Nitrogen 38mg/dL (8-26) 28mg/dL (8-26) Creatinine 1.8mg/dL (0.7-1.3) 1.5mg/dL (0.7-1.3) Estimated GFR (Cockcroft-Gault) 36.0 44.5 BUN/Creatinine Ratio 21 (6-20) Glucose Level 129mg/dL (70-99) 128mg/dL (70-99) Calcium Level 7.4mg/dL (8.5-10.1) 8.0mg/dL (8.5-10.1) Phosphorus Level 3.5mg/dL (2.6-4.7) Total Bilirubin 0.3mg/dL (0.2-1.0) Aspartate Amino Transf (AST/SGOT) 60U/L (15-37) Alanine Aminotransferase (ALT/SGPT) 63U/L (16-63) Alkaline Phosphatase 91U/L (46-116) Total Protein 5.4g/dL (6.4-8.2) Albumin 1.5g/dL (3.4-5.0) Albumin/Globulin Ratio 0.4 (1.0-1.7) O2 Saturation 82% (92-99) Arterial Blood pH 7.36 (7.35-7.45) Arterial Blood pCO2 at Patient Temp 49mmHg (35-46) Arterial Blood pO2 at Patient Temp 50mmHg (65-108) Arterial Blood HCO3 27mmol/L (21-28) Arterial Blood Base Excess 1mmol/L (-3-3) FiO2 50% Lactic Acid Level 1.0mmol/L (0.4-2.0) Troponin I Quantitative 0.047ng/mL (0.000-0.055) Laboratory Tests Test 10/28/16 07:26 10/28/16 08:00 O2 Saturation 82% (92-99) Arterial Blood pH 7.36 (7.35-7.45) Arterial Blood pCO2 at Patient Temp 49mmHg (35-46) Arterial Blood pO2 at Patient Temp 50mmHg (65-108) Arterial Blood HCO3 27mmol/L (21-28) Arterial Blood Base Excess 1mmol/L (-3-3) FiO2 50% White Blood Count 7.6x10^3/uL (4.0-11.0) Red Blood Count 3.01x10^6/uL (4.30-5.70) Hemoglobin 9.3g/dL (13.0-17.5) Hematocrit 28.2% (39.0-53.0) Mean Corpuscular Volume 94fL (79-100) Mean Corpuscular Hemoglobin 31pg (25-35) Mean Corpuscular Hemoglobin Concent 33g/dL (31-37) Red Cell Distribution Width 17.5% (11.5-14.5) Platelet Count 254x10^3/uL (140-400) Neutrophils (%) (Auto) 67% (31-73) Lymphocytes (%) (Auto) 18% (24-48) Monocytes (%) (Auto) 10% (0-9) Eosinophils (%) (Auto) 4% (0-3) Basophils (%) (Auto) 1% (0-3) Neutrophils # (Auto) 5.1x10^3uL (1.8-7.7) Lymphocytes # (Auto) 1.4x10^3/uL (1.0-4.8) Monocytes # (Auto) 0.8x10^3/uL (0.0-1.1) Eosinophils # (Auto) 0.3x10^3/uL (0.0-0.7) Basophils # (Auto) 0.1x10^3/uL (0.0-0.2) Sodium Level 139mmol/L (136-145) Potassium Level 5.9mmol/L (3.5-5.1) Chloride Level 104mmol/L (98-107) Carbon Dioxide Level 27mmol/L (21-32) Anion Gap 8 (6-14) Blood Urea Nitrogen 28mg/dL (8-26) Creatinine 1.5mg/dL (0.7-1.3) Estimated GFR (Cockcroft-Gault) 44.5 Glucose Level 128mg/dL (70-99) Lactic Acid Level 1.0mmol/L (0.4-2.0) Calcium Level 8.0mg/dL (8.5-10.1) Troponin I Quantitative 0.047ng/mL (0.000-0.055) Microbiology 10/26/16 Blood Culture - Preliminary, Resulted NO GROWTH AFTER 1 DAY 10/26/16 Gram Stain - Final, Complete 10/13/16 Urine Culture - Final, Complete 10/13/16 Urine Culture Result 1 (MANDEEP) - Final, Complete Medications Current Medications Fentanyl Citrate 50 mcg 50 mcg PRN Q15MIN PRN IV PAIN GREATER THAN 3/10 Last administered on 09/30/16at 19:35; Start 09/30/16 at 17:30; Stop 10/01/16 at 04 :24; Status DC Lactated Ringer's (Iv Lactated Ringers) 1,000 ml @ 100 mls/hr Q10H IV Last administered on 09/30/16at 19:35; Start 09/30/16 at 17:28; Stop 10/01/16 at 03 :27; Status DC Ondansetron HCl (Zofran) 4 mg 1X ONCE IV Last administered on 09/30/16at 17:44 ; Start 09/30/16 at 17:30; Stop 09/30/16 at 17:32; Status DC Fentanyl Citrate (Fentanyl 2ml Vial) 50 mcg 1X ONCE IV ; Start 09/30/16 at 19: 15; Stop 10/01/16 at 04:24; Status DC Ondansetron HCl (Zofran) 4 mg PRN Q8HRS PRN IV NAUSEA/VOMITING Last administered on 09/30/16at 22:07; Start 09/30/16 at 19:15; Stop 10/01/16 at 19 :14; Status DC Fentanyl Citrate 50 mcg 50 mcg PRN Q2HR PRN IV PAIN Last administered on at 16:54; Start 09/30/16 at 19:15; Stop 10/01/16 at 19:14; Status DC Sodium Chloride 1,000 ml @ 100 mls/hr Q10H IV ; Start 09/30/16 at 19:30; Stop 10/01/16 at 04:24; Status DC Potassium Chloride/Dextrose/ Sod Cl (KCl 20 Meq In D5W-1/2 NS) 1,000 ml @ 125 mls/hr Q8H IV Last administered on 10/04/16at 06:02; Start 09/30/16 at 20:00; Stop 10/04/16 at 10:21; Status DC Enoxaparin Sodium 40 mg 40 mg Q24H SQ Last administered on 10/13/16 08:14; Start 10/01/16 at 09:00; Stop 10/13/16 at 08:36; Status DC Levetiracetam/ Sodium Chloride (Keppra/Iv Sodium Chloride 0.9% 100ml) 105 ml @ 400 mls/hr Q12HR IV Last administered on 10/05/16 09:30; Start 09/30/16 at 21: 00; Stop 10/05/16 at 10:24; Status DC Morphine Sulfate 2 mg PRN Q4HRS PRN IV SEVERE PAIN Last administered on 10:13; Start 09/30/16 at 19:30; Stop 10/05/16 at 10:24; Status DC Acetaminophen (Tylenol) 650 mg PRN Q6HRS PRN [place] MILD PAIN / TEMP; Start at 19:30; Stop 10/05/16 at 10:24; Status DC Ondansetron HCl (Zofran) 4 mg PRN Q6HRS PRN IV NAUSEA/VOMITING Last administered on 10/07/16 08:28; Start 09/30/16 at 19:30; Stop 10/09/16 at 12:08 ; Status DC Benzocaine (Hurricaine One) 1 spray STK-MED ONCE .ROUTE ; Start 09/30/16 at 19: 51; Stop 09/30/16 at 19:52; Status DC Morphine Sulfate 4 mg PRN Q4HRS PRN IV PAIN Last administered on 10/05/16 08:08 ; Start 10/01/16 at 20:00; Stop 10/05/16 at 10:24; Status DC Clonidine HCl 1 patch 1 patch WEEKLY TD Last administered on 10/03/16at 12:30; Start 10/03/16 at 10:00; Stop 10/05/16 at 10:24; Status DC Piperacillin Sod/ Tazobactam Sod/ Sodium Chloride (Zosyn/Iv Sodium Chloride 0.9 % 50ml) 50 ml @ 100 mls/hr Q6HRS IV Last administered on 10/09/16 06:26; Start 10/04/16 at 11:00; Stop 10/09/16 at 10:55; Status DC Vancomycin HCl 1 each 1 each PRN DAILY PRN MC SEE COMMENTS Last administered on 10/07/16 11:11; Start 10/04/16 at 10:15; Stop 10/07/16 at 11:28; Status DC Vancomycin HCl/ Sodium Chloride (Iv Sodium Chloride 0.9% 250ml) 250 ml @ 250 mls/hr Q24H IV ; Start 10/04/16 at 10:15; Status UNV Labetalol HCl (Normodyne) 20 mg PRN Q6HRS PRN IVP HYPERTENSION, SEE COMMENTS; Start 10/04/16 at 10:15; Stop 10/05/16 at 10:24; Status DC Hydralazine HCl 10 mg 10 mg PRN Q6HRS PRN IVP ELEVATED BP, SEE COMMENTS Last administered on 10/06/16 19:17; Start 10/04/16 at 10:15; Stop 10/12/16 at 10:40 ; Status DC Amino Acids/ Glycerin/ Electrolytes 1,000 ml @ 40 mls/hr Q24H IV Last administered on 10/06/16 09:59; Start 10/04/16 at 10:15; Stop 10/07/16 at 09:06 ; Status DC Vancomycin HCl 2 gm/Sodium Chloride 500 ml @ 250 mls/hr 1X ONCE IV Last administered on 10/04/16at 11:26; Start 10/04/16 at 10:45; Stop 10/04/16 at 12 :44; Status DC Vancomycin HCl/ Sodium Chloride (Iv Sodium Chloride 0.9% 500ml Bag) 500 ml @ 250 mls/hr Q24H IV Last administered on 10/06/16 11:47; Start 10/05/16 at 12:00 ; Stop 10/07/16 at 11:28; Status DC Vancomycin HCl 1 each 1X ONCE MC Last administered on 10/06/16 11:30; Start at 11:30; Stop 10/06/16 at 11:31; Status DC Aspirin (Children'S Aspirin) 81 mg [id number] PO Last administered on 10/13/16 08:15; Start 10/05/16 at 11:00; Stop 10/13/16 at 08:29; Status DC Gabapentin (Neurontin) 600 mg QID PO Last administered on 10/13/16 08:14; Start 10/05/16 at 13:00; Stop 10/14/16 at 08:47; Status DC Levetiracetam (Keppra) 250 mg BID PO Last administered on 10/13/16 08:17; Start 10/05/16 at 11:00; Stop 10/14/16 at 08:47; Status DC Levothyroxine Sodium (Synthroid) 100 mcg DAILY07 PO Last administered on 05:08; Start 10/05/16 at 10:30; Stop 10/14/16 at 08:48; Status DC Metoprolol Succinate (Toprol Xl) 25 mg DAILY PO Last administered on 10/13/16 08:16; Start 10/05/16 at 11:00; Stop 10/14/16 at 08:47; Status DC Pramipexole Dihydrochloride (miraPEX) 0.5 mg [id number] PO Last administered on 10/13 08:15; Start 10/05/16 at 11:00; Stop 10/14/16 at 08:48; Status DC Simvastatin (Zocor) 20 mg HS PO Last administered on 10/12/16 21:07; Start 10/05 at 21:00; Stop 10/14/16 at 08:48; Status DC Carbidopa/Levodopa (Sinemet Cr) 1 tab.sa TID PO Last administered on 10/13/16 08:16; Start 10/05/16 at 11:00; Stop 10/14/16 at 08:48; Status DC Tamsulosin HCl (Flomax) 0.4 mg QHS PO Last administered on 10/12/16 21:07; Start 10/05/16 at 21:00; Stop 10/14/16 at 08:48; Status DC Tramadol HCl (Ultram) 50 mg QID PO Last administered on 10/13/16 08:17; Start 10/05/16 at 13:00; Stop 10/14/16 at 08:48; Status DC Acetaminophen (Tylenol) 650 mg PRN Q4HRS PRN PO MILD PAIN / TEMP Last administered on 10/13/16 00:17; Start 10/05/16 at 10:15; Stop 10/14/16 at 08:48; Status DC Prednisone (Prednisone) 20 mg 1X ONCE PO Last administered on 10/06/16 11:01; Start 10/06/16 at 10:30; Stop 10/06/16 at 10:31; Status DC Prednisone (Prednisone) 10 mg DAILY08 PO Last administered on 10/13/16 08:15; Start 10/07/16 at 08:00; Stop 10/13/16 at 08:29; Status DC Al Hydroxide/Mg Hydroxide (Mylanta Plus Xs) 30 ml PRN Q4HRS PRN PO HEARTBURN / GAS Last administered on 10/12/16 21:07; Start 10/07/16 at 08:45; Stop 10/14/16 at 08:48; Status DC Pantoprazole Sodium (Protonix) 40 mg DAILYAC PO Last administered on 10/13/16 05:08; Start 10/07/16 at 10:00; Stop 10/13/16 at 06:45; Status DC Furosemide 40 mg 40 mg DAILY PO Last administered on 10/08/16 08:42; Start 10/07 at 10:00; Stop 10/08/16 at 08:56; Status DC Sodium Chloride (Iv Sodium Chloride 0.45%) 1,000 ml @ 60 mls/hr CONT PRN IV . ; Start 10/08/16 at 09:00; Stop 10/08/16 at 16:06; Status DC Bisacodyl 10 mg 10 mg 1X ONCE [place] Last administered on 10/08/16 10:11; Start at 09:30; Stop 10/08/16 at 09:31; Status DC Sodium Chloride (Iv Sodium Chloride 0.45%) 1,000 ml @ 60 mls/hr [id number] IV Last administered on 10/09/16 02:52; Start 10/08/16 at 10:15; Stop 10/09/16 at 12: 00; Status DC Cefpodoxime Proxetil (Vantin) 200 mg BID PO ; Start 10/09/16 at 11:00; Stop at 12:08; Status DC Cefpodoxime Proxetil (Vantin) 100 mg BID PO Last administered on 10/13/16 08:16 ; Start 10/09/16 at 21:00; Stop 10/13/16 at 08:29; Status DC Ondansetron HCl (Zofran) 4 mg STK-MED ONCE .ROUTE Last administered on 01:24; Start 10/13/16 at 01:19; Stop 10/13/16 at 01:20; Status DC Ondansetron HCl (Zofran) 4 mg PRN Q6HRS PRN IV NAUSEA/VOMITING Last administered on 10/27/16 00:39; Start 10/13/16 at 02:00 Pantoprazole Sodium 40 mg 40 mg DAILYAC IVP Last administered on 10/28/16 05: 56; Start 10/13/16 at 07:30 Dextrose/Sodium Chloride (Iv D5% - NS) 1,000 ml @ 60 mls/hr [id number] IV Last administered on 10/13/16 09:25; Start 10/13/16 at 08:30; Stop 10/13/16 at 11:01; Status DC Sodium Polystyrene Sulfonate 15 gm 15 gm 1X ONCE PO Last administered on 09:26; Start 10/13/16 at 08:30; Stop 10/13/16 at 08:31; Status DC Piperacillin Sod/ Tazobactam Sod 3.375 gm/Sodium Chloride 50 ml @ 100 mls/hr Q6HRS IV Last administered on 10/19/16t 12:42; Start 10/13/16 at 09:00; Stop at 15:06; Status DC Dextrose/Sodium Chloride (Iv D5% - 1/2 NS) 1,000 ml @ 50 mls/hr Q20H IV Last administered on 10/17/16t 00:16; Start 10/13/16 at 11:00; Stop 10/17/16 at 12:23 ; Status DC Ondansetron HCl (Zofran) 4 mg PRN Q6HRS PRN IV Nausea 1ST CHOICE; Start at 12:30; Stop 10/14/16 at 11:07; Status DC Fentanyl Citrate (Fentanyl 2ml Vial) 25 mcg PRN Q5MIN PRN IV MILD PAIN; Start 10/13/16 at 12:30; Stop 10/14/16 at 11:04; Status DC Fentanyl Citrate (Fentanyl 2ml Vial) 50 mcg PRN Q5MIN PRN IV MODERATE PAIN; Start 10/13/16 at 12:30; Stop 10/14/16 at 11:04; Status DC Morphine Sulfate 1 mg 1 mg PRN Q10MIN PRN IV SEVERE PAIN; Start 10/13/16 at 12: 30; Stop 10/14/16 at 11:00; Status DC Lactated Ringer's (Iv Lactated Ringers) 1,000 ml @ 0 mls/hr Q0M IV ; Start 10/13 at 12:17; Stop 10/14/16 at 00:16; Status DC Lidocaine HCl 2 ml 1X PRN PRN ID IV START; Start 10/13/16 at 12:30; Stop at 16:03; Status DC Hydromorphone HCl (Dilaudid) 0.5 mg PRN Q10MIN PRN IV SEV PAIN,Second choice; Start 10/13/16 at 12:30; Stop 10/14/16 at 11:04; Status DC Prochlorperazine Edisylate (Compazine) 5 mg PACU PRN PRN IV NAUSEA; Start at 12:30; Stop 10/14/16 at 11:00; Status DC Fentanyl Citrate (Fentanyl 2ml Vial) 50 mcg PRN Q5MIN PRN IV Acute Pain Last administered on 10/14/16t 10:04; Start 10/13/16 at 13:00; Stop 10/14/16 at 11:04 ; Status DC Morphine Sulfate 4 mg PRN Q10MIN PRN IV Moderate Pain; Start 10/13/16 at 13:00; Stop 10/14/16 at 11:00; Status DC Hydromorphone HCl (Dilaudid) 0.4 mg PRN Q10MIN PRN IV Moderate to severe pain; Start 10/13/16 at 13:00; Stop 10/14/16 at 11:04; Status DC Meperidine HCl (Demerol) 12.5 mg PRN Q5MIN PRN IV SHIVERING; Start 10/13/16 at 13:00; Stop 10/14/16 at 11:00; Status DC Prochlorperazine Edisylate (Compazine) 5 mg PRN Q6HRS PRN IV Nausea/Vomiting, 1st Choice; Start 10/13/16 at 13:00; Stop 10/14/16 at 11:00; Status DC Diphenhydramine HCl (Benadryl) 12.5 mg PRN Q2HR PRN IV ITCHING; Start 10/13/16 at 13:00; Stop 10/14/16 at 11:00; Status DC Midazolam HCl (Versed) 2 mg PRN 1X PRN IV PRIOR TO PROCEDURE; Start 10/13/16 at 13:00; Stop 10/14/16 at 11:07; Status DC Midazolam HCl (Versed) 1 mg PRN 1X PRN IV PRIOR TO PROCEDURE; Start 10/13/16 at 13:00; Stop 10/14/16 at 11:07; Status DC Fentanyl Citrate (Fentanyl 2ml Vial) 25 mcg PRN Q5MIN PRN IV X 2 DOSES FOR PAIN ; Start 10/13/16 at 13:00; Stop 10/14/16 at 11:04; Status DC Fentanyl Citrate 50 mcg 50 mcg PRN Q5MIN PRN IV X 2 DOSES FOR PAIN; Start at 13:00; Stop 10/14/16 at 11:04; Status DC Lactated Ringer's (Iv Lactated Ringers) 1,000 ml @ 125 mls/hr Q8H IV Last administered on 10/13/16 13:30; Start 10/13/16 at 12:48; Stop 10/14/16 at 00:47; Status DC Lidocaine HCl 2 ml 1X PRN PRN ID IV START; Start 10/13/16 at 13:00; Stop at 16:03; Status DC Fentanyl Citrate (Fentanyl 2ml Vial) 25 mcg PRN Q2HR PRN IV PAIN MOD TO SEV; Start 10/13/16 at 20:30; Stop 10/14/16 at 14:15; Status DC Fentanyl Citrate (Fentanyl 2ml Vial) 50 mcg PRN Q2HR PRN IV PAIN MOD TO SEV Last administered on 10/14/16 12:02; Start 10/13/16 at 20:30; Stop 10/14/16 at 14:15; Status DC Enoxaparin Sodium (Lovenox 40mg Syringe) 40 mg Q24H SQ Last administered on 09:18; Start 10/14/16 at 09:00; Stop 10/27/16 at 06:34; Status DC Fentanyl Citrate 100 mcg 100 mcg STK-MED ONCE .ROUTE ; Start 10/13/16 at 13:27; Stop 10/14/16 at 07:31; Status DC Propofol (Diprivan) 20 ml @ As Directed STK-MED ONCE IV ; Start 10/13/16 at 13:27 ; Stop 10/14/16 at 07:31; Status DC Rocuronium Hitterdal (Zemuron) 50 mg STK-MED ONCE .ROUTE ; Start 10/13/16 at 13:27 ; Stop 10/14/16 at 07:31; Status DC Lidocaine HCl 100 mg STK-MED ONCE .ROUTE ; Start 10/13/16 at 13:27; Stop at 07:31; Status DC Fentanyl Citrate (Fentanyl 2ml Vial) 100 mcg STK-MED ONCE .ROUTE ; Start at 13:27; Stop 10/14/16 at 07:31; Status DC Ephedrine Sulfate (Akovaz) 50 mg STK-MED ONCE .ROUTE ; Start 10/13/16 at 14:00; Stop 10/14/16 at 07:31; Status DC Phenylephrine HCl 1 mg STK-MED ONCE IV ; Start 10/13/16 at 14:25; Stop 10/14/16 at 07:31; Status DC Desflurane (Suprane) 60 ml STK-MED ONCE IH ; Start 10/13/16 at 14:25; Stop at 07:31; Status DC Dexamethasone Sodium Phosphate (Decadron) 20 mg STK-MED ONCE .ROUTE ; Start 10/13 at 14:25; Stop 10/14/16 at 07:31; Status DC Ondansetron HCl (Zofran) 4 mg STK-MED ONCE .ROUTE ; Start 10/13/16 at 14:25; Stop 10/14/16 at 07:31; Status DC Famotidine (Pepcid) 20 mg STK-MED ONCE .ROUTE ; Start 10/13/16 at 14:25; Stop 07/21 at 07:31; Status DC Rocuronium Hitterdal (Zemuron) 50 mg STK-MED ONCE .ROUTE ; Start 10/13/16 at 16:19 ; Stop 10/14/16 at 07:31; Status DC Fentanyl Citrate (Fentanyl 2ml Vial) 100 mcg STK-MED ONCE .ROUTE ; Start at 16:21; Stop 10/14/16 at 07:31; Status DC Desflurane (Suprane) 90 ml STK-MED ONCE IH ; Start 10/13/16 at 16:53; Stop at 07:31; Status DC Glycopyrrolate (Robinul) 1 mg STK-MED ONCE .ROUTE ; Start 10/13/16 at 17:00; Stop 10/14/16 at 07:31; Status DC Neostigmine Methylsulfate 5 mg STK-MED ONCE .ROUTE ; Start 10/13/16 at 17:00; Stop 10/14/16 at 07:31; Status DC Phenylephrine HCl 1 mg STK-MED ONCE IV ; Start 10/13/16 at 18:14; Stop 10/14/16 at 07:31; Status DC Fentanyl Citrate (Fentanyl 2ml Vial) 100 mcg STK-MED ONCE .ROUTE ; Start at 18:20; Stop 10/14/16 at 07:31; Status DC Fentanyl Citrate 100 mcg 100 mcg STK-MED ONCE .ROUTE ; Start 10/13/16 at 19:17; Stop 10/14/16 at 07:31; Status DC Levetiracetam 500 mg/Sodium Chloride 105 ml @ 400 mls/hr Q12HR IV Last administered on 10/28/16 09:42; Start 10/14/16 at 09:00 Amino Acids/ Glycerin/ Electrolytes (Procalamine) 1,000 ml @ 80 mls/hr [id number] IV Last administered on 10/16/16 09:16; Start 10/14/16 at 11:15; Stop at 21:59; Status DC Morphine Sulfate 2 mg PRN Q4HRS PRN IV MODERATE PAIN Last administered on 00:57; Start 10/14/16 at 14:15; Stop 10/27/16 at 12:52; Status DC Morphine Sulfate 4 mg PRN Q4HRS PRN IV SEVERE PAIN Last administered on 08:57; Start 10/14/16 at 14:30 Info 1 each 1 each PRN DAILY PRN MC SEE COMMENTS Last administered on 10:32; Start 10/16/16 at 11:30; Stop 10/28/16 at 10:48; Status DC Sodium Chloride/ Potassium Chloride/ Potassium Phosphate/ Magnesium Sulfate/ Calcium Gluconate/ Multivitamins/ Minerals/Chromium/ Copper/Manganese/ Seleni/Zn /Total Parenteral Nutrition/Amino Acids/Dextrose/ Fat Emulsion Intravenous ( Sodium Chloride/ Potassium Phospha... 1,512 ml @ 63 mls/hr TPN CONT IV ; Start 10/16/16 at 22:00; Stop 10/17/16 at 12:50; Status DC Lidocaine/Sodium Bicarbonate 20 ml 20 ml STK-MED ONCE IJ ; Start 10/17/16 at 08: 20; Stop 10/17/16 at 08:21; Status DC Heparin Sodium/ Sodium Chloride 500 ml @ As Directed STK-MED ONCE .ROUTE ; Start 10/17/16 at 08:20; Stop 10/17/16 at 08:21; Status DC Lidocaine/Sodium Bicarbonate (Buffered Lidocaine 1%) 3 ml 1X ONCE IJ Last administered on 10/17/16 08:30; Start 10/17/16 at 08:30; Stop 10/17/16 at 08:31 ; Status DC Heparin Sodium/ Sodium Chloride 60 unit 1X ONCE IV Last administered on 08:30; Start 10/17/16 at 08:30; Stop 10/17/16 at 08:31; Status DC Iohexol (Omnipaque 300 Mg/ml) 50 ml STK-MED ONCE .ROUTE ; Start 10/17/16 at 09: 02; Stop 10/17/16 at 09:03; Status DC Iohexol (Omnipaque 300 Mg/ml) 43 ml 1X ONCE IART Last administered on 08:45; Start 10/17/16 at 09:30; Stop 10/17/16 at 09:33; Status DC Info (Do NOT chart on this entry -- for MONITORING) 1 each PRN DAILY PRN MC SEE COMMENTS; Start 10/17/16 at 09:45; Stop 10/19/16 at 09:44; Status DC Clonidine HCl (Catapres Tts-2) 1 patch WEEKLY TD Last administered on 09:12; Start 10/17/16 at 11:00; Stop 10/26/16 at 09:54; Status DC Labetalol HCl 20 mg 20 mg PRN Q6HRS PRN IVP HYPERTENSION, SEE COMMENTS Last administered on 10/26/16 17:55; Start 10/17/16 at 10:30 Sodium Chloride 1,000 ml @ 60 mls/hr [id number] IV Last administered on 06:32; Start 10/17/16 at 12:30; Stop 10/19/16 at 10:06; Status DC Sodium Chloride 90 meq/Potassium Chloride 50 meq/ Potassium Phosphate 13.6 mmol/ Magnesium Sulfate 10 meq/ Calcium Gluconate 10 meq/ Multivitamins/ Minerals 10 ml/ Chromium/Copper/ Manganese/Seleni/ Zn 1 ml/Total Parenteral Nutrition/Amino Acids/Dextrose/ Fat Emulsion Intravenous 1,512 ml @ 63 mls/hr TPN CONT IV Last administered on 10/17/16 21:09; Start 10/17/16 at 22:00; Stop 10/18/16 at 21:59; Status DC Sodium Chloride/ Potassium Chloride/ Potassium Phosphate/ Magnesium Sulfate/ Calcium Gluconate/ Multivitamins/ Minerals/Chromium/ Copper/Manganese/ Seleni/Zn /Total Parenteral Nutrition/Amino Acids/Dextrose/ Fat Emulsion Intravenous ( Sodium Chloride/ Potassium Phospha... 1,512 ml @ 63 mls/hr TPN CONT IV Last administered on 10/18/16 21:24; Start 10/18/16 at 22:00; Stop 10/19/16 at 21:59 ; Status DC Furosemide 20 mg 20 mg 1X ONCE IVP Last administered on 10/19/16 11:01; Start 10/19/16 at 10:30; Stop 10/19/16 at 10:31; Status DC Sodium Chloride 90 meq/Sodium Acetate 40 meq/ Potassium Chloride 50 meq/ Potassium Phosphate 13.6 mmol/Magnesium Sulfate 10 meq/ Calcium Gluconate 10 meq / Multivitamins/ Minerals 10 ml/ Chromium/Copper/ Manganese/Seleni/ Zn 1 ml/ Total Parenteral Nutrition/Amino Acids/Dextro... 1,920 ml @ 80 mls/hr TPN CONT IV Last administered on 10/19/16 22:29; Start 10/19/16 at 22:00; Stop at 21:59; Status DC Sodium Chloride 1,000 ml @ 45 mls/hr [id number] IV Last administered on 22:24; Start 10/20/16 at 09:00; Stop 10/21/16 at 09:26; Status DC Magnesium Sulfate/ Dextrose 50 ml @ 25 mls/hr PRN DAILY PRN IV for Mag < 1.7 on am labs; Start 10/20/16 at 13:15 Sodium Chloride/ Sodium Acetate/ Potassium Chloride/ Potassium Phosphate/ Magnesium Sulfate/ Calcium Gluconate/ Multivitamins/ Minerals/Chromium/ Copper/ Manganese/ Seleni/Zn/Total Parenteral Nutrition/Amino Acids/Dextrose/ Fat Emulsion Intravenous (Sodium Chloride/ Potass... 1,920 ml @ 80 mls/hr TPN CONT IV Last administered on 10/20/16 22:23; Start 10/20/16 at 22:00; Stop at 21:59; Status DC Acetaminophen/ Hydrocodone Bitart 1 tab 1 tab PRN Q4HRS PRN PO PAIN Last administered on 10/21/16 23:51; Start 10/21/16 at 09:30; Stop 10/22/16 at 10:39 ; Status DC Sodium Chloride/ Sodium Acetate/ Potassium Chloride/ Potassium Phosphate/ Magnesium Sulfate/ Calcium Gluconate/ Multivitamins/ Minerals/Chromium/ Copper/ Manganese/ Seleni/Zn/Total Parenteral Nutrition/Amino Acids/Dextrose/ Fat Emulsion Intravenous (Sodium Chloride/ Potass... 1,920 ml @ 80 mls/hr TPN CONT IV Last administered on 10/21/16 22:22; Start 10/21/16 at 22:00; Stop at 21:59; Status DC Metoclopramide HCl (Reglan) 10 mg 1X ONCE IV Last administered on 10/22/16 01 :56; Start 10/22/16 at 02:00; Stop 10/22/16 at 02:01; Status DC Lorazepam (Ativan) 1 mg 1X ONCE IV Last administered on 10/22/16 02:35; Start 10/22/16 at 02:30; Stop 10/22/16 at 02:31; Status DC Morphine Sulfate 2 mg PRN Q1HR PRN IV CHEST PAIN Last administered on 05:25; Start 10/22/16 at 02:30 Famotidine (Pepcid) 20 mg 1X ONCE IVP Last administered on 10/22/16 02:35; Start 10/22/16 at 02:30; Stop 10/22/16 at 02:31; Status DC Hydralazine HCl (Apresoline) 10 mg PRN Q6HRS PRN IVP ELEVATED BP, SEE COMMENTS ; Start 10/22/16 at 10:45 Iohexol (Omnipaque 300 Mg/ml) 60 ml 1X ONCE PO Last administered on 10/22/16 11:43; Start 10/22/16 at 11:00; Stop 10/22/16 at 11:01; Status DC Iohexol (Omnipaque 300 Mg/ml) 60 ml 1X ONCE IV Last administered on 10/22/16 11:19; Start 10/22/16 at 11:00; Stop 10/22/16 at 11:01; Status DC Info 1 each 1 each PRN DAILY PRN MC SEE COMMENTS; Start 10/22/16 at 11:00; Stop 10/24/16 at 10:59; Status DC Sodium Chloride 50 meq/Sodium Acetate 80 meq/ Potassium Chloride 50 meq/ Potassium Phosphate 18 mmol/ Magnesium Sulfate 10 meq/Calcium Gluconate 10 meq/ Multivitamins/ Minerals 10 ml/ Chromium/Copper/ Manganese/Seleni/ Zn 1 ml/Total Parenteral Nutrition/Amino Acids/Dextrose/ Fat Emuls... 1,920 ml @ 80 mls/hr TPN CONT IV Last administered on 10/22/16 21:46; Start 10/22/16 at 22:00; Stop 10/23/16 at 21:59; Status DC Levothyroxine Sodium/Sodium Chloride (Synthroid/Iv Sodium Chloride 0.9% 50ml) 5 ml @ 100 mls/hr DAILY IVP Last administered on 10/28/16 09:42; Start 10/23/16 at 14:00 Furosemide (Lasix) 20 mg 1X ONCE IVP Last administered on 10/23/16 12:45; Start 10/23/16 at 12:30; Stop 10/23/16 at 12:31; Status DC Alteplase, Recombinant 2 mg 2 mg 1X ONCE INT CAT Last administered on 12:45; Start 10/23/16 at 12:30; Stop 10/23/16 at 12:31; Status DC Sodium Chloride/ Sodium Acetate/ Potassium Chloride/ Potassium Phosphate/ Magnesium Sulfate/ Calcium Gluconate/ Multivitamins/ Minerals/Chromium/ Copper/ Manganese/ Seleni/Zn/Total Parenteral Nutrition/Amino Acids/Dextrose/ Fat Emulsion Intravenous (Sodium Chloride/ Potass... 1,920 ml @ 80 mls/hr TPN CONT IV Last administered on 10/23/16 21:37; Start 10/23/16 at 22:00; Stop at 21:59; Status DC Acetaminophen 650 mg 650 mg PRN Q6HRS PRN [place] MILD PAIN / TEMP Last administered on 10/23/16 23:09; Start 10/23/16 at 23:00; Stop 10/26/16 at 10:04 ; Status DC Potassium Chloride/Dextrose/ Sod Cl 1,000 ml @ 80 mls/hr [id number] IV Last administered on 10/24/16 10:08; Start 10/24/16 at 09:30; Stop 10/24/16 at 13:58 ; Status DC Sodium Chloride 50 meq/Sodium Acetate 80 meq/ Potassium Chloride 50 meq/ Potassium Phosphate 18 mmol/ Magnesium Sulfate 10 meq/Calcium Gluconate 10 meq/ Multivitamins/ Minerals 10 ml/ Chromium/Copper/ Manganese/Seleni/ Zn 1 ml/Total Parenteral Nutrition/Amino Acids/Dextrose/ Fat Emuls... 1,920 ml @ 80 mls/hr TPN CONT IV Last administered on 10/24/16 22:10; Start 10/24/16 at 22:00; Stop 10/25/16 at 21:59; Status DC Sodium Chloride (Iv Sodium Chloride 0.45%) 1,000 ml @ 45 mls/hr [id number] IV Last administered on 10/24/16 14:00; Start 10/24/16 at 14:00; Stop 10/25/16 at 11:47; Status DC Albuterol/ Ipratropium (Duoneb) 3 ml RTQID NEB Last administered on 10/28/16 07:03; Start 10/25/16 at 12:00 Albuterol Sulfate (Ventolin Neb Soln) 2.5 mg PRN Q4HRS PRN NEB SOA; Start 10/25 at 12:00 Furosemide 40 mg 40 mg 1X ONCE IVP Last administered on 10/25/16 13:49; Start 10/25/16 at 11:45; Stop 10/25/16 at 11:53; Status DC Sodium Chloride 50 meq/Sodium Acetate 80 meq/ Potassium Chloride 50 meq/ Potassium Phosphate 18 mmol/ Magnesium Sulfate 10 meq/Calcium Gluconate 10 meq/ Multivitamins/ Minerals 10 ml/ Chromium/Copper/ Manganese/Seleni/ Zn 1 ml/Total Parenteral Nutrition/Amino Acids/Dextrose/ Fat Emuls... 1,920 ml @ 80 mls/hr TPN CONT IV Last administered on 10/25/16 21:06; Start 10/25/16 at 22:00; Stop 10/26/16 at 21:59; Status DC Albumin Human (Albuminar) 100 ml @ 100 mls/hr 1X ONCE IV Last administered on 10/25/16 18:19; Start 10/25/16 at 16:45; Stop 10/25/16 at 17:44; Status DC Furosemide 40 mg 40 mg 1X ONCE IVP Last administered on 10/25/16 18:24; Start 10/25/16 at 16:45; Stop 10/25/16 at 16:46; Status DC Piperacillin Sod/ Tazobactam Sod 3.375 gm/Sodium Chloride 50 ml @ 100 mls/hr Q8HRS IV Last administered on 10/28/16 05:46; Start 10/26/16 at 10:00 Linezolid (Zyvox Premix) 300 ml @ 300 mls/hr Q12HR IV Last administered on 09:42; Start 10/26/16 at 10:00 Bisacodyl 10 mg 10 mg 1X ONCE [place] Last administered on 10/27/16 09:11; Start 10/26/16 at 10:00; Stop 10/26/16 at 10:02; Status DC Sodium Chloride (Iv Sodium Chloride 0.45%) 1,000 ml @ 45 mls/hr [id number] IV Last administered on 10/27/16 09:11; Start 10/26/16 at 10:00; Stop 10/28/16 at 10:07; Status DC Acetaminophen 650 mg 650 mg PRN Q6HRS PRN [place] MILD PAIN / TEMP Last administered on 10/26/16 23:04; Start 10/26/16 at 10:00 Sodium Chloride 50 meq/Sodium Acetate 80 meq/ Potassium Chloride 50 meq/ Potassium Phosphate 18 mmol/ Magnesium Sulfate 10 meq/Calcium Gluconate 10 meq/ Multivitamins/ Minerals 10 ml/ Chromium/Copper/ Manganese/Seleni/ Zn 1 ml/Total Parenteral Nutrition/Amino Acids/Dextrose/ Fat Emuls... 1,920 ml @ 80 mls/hr TPN CONT IV Last administered on 10/26/16 22:02; Start 10/26/16 at 22:00; Stop 10/27/16 at 21:59; Status DC Micafungin Sodium/ Dextrose (Mycamine) 100 ml @ 100 mls/hr Q24H IV Last administered on 10/27/16 20:25; Start 10/26/16 at 21:00 Morphine Sulfate 2 mg 2 mg PRN Q4HRS PRN IV MODERATE PAIN Last administered on 10/28/16 01:36; Start 10/27/16 at 13:00 Sodium Chloride/ Sodium Acetate/ Potassium Chloride/ Potassium Phosphate/ Magnesium Sulfate/ Calcium Gluconate/ Multivitamins/ Minerals/Chromium/ Copper/ Manganese/ Seleni/Zn/Total Parenteral Nutrition/Amino Acids/Dextrose/ Fat Emulsion Intravenous (Sodium Chloride/ Potass... 1,920 ml @ 80 mls/hr TPN CONT IV Last administered on 10/27/16 22:51; Start 10/27/16 at 22:00; Stop at 21:59 Diphenhydramine HCl (Benadryl) 25 mg 1X ONCE IM Last administered on 14:08; Start 10/27/16 at 14:30; Stop 10/27/16 at 14:31; Status DC Furosemide (Lasix) 20 mg 1X ONCE IVP Last administered on 10/28/16 08:15; Start 10/28/16 at 08:00; Stop 10/28/16 at 08:01; Status DC Furosemide 40 mg 40 mg 1X ONCE IVP ; Start 10/28/16 at 10:00; Stop 10/28/16 at 10:01; Status DC Sodium Chloride 50 meq/Sodium Acetate 60 meq/ Sodium Phosphate 18 mmol/ Magnesium Sulfate 10 meq/ Calcium Gluconate 6 meq/ Multivitamins/ Minerals 10 ml / Chromium/Copper/ Manganese/Seleni/ Zn 1 ml/Total Parenteral Nutrition/Amino Acids/Dextrose/ Fat Emulsion Intravenous 1,080 ml @ 45 mls/hr TPN CONT IV ; Start 10/28/16 at 22:00; Stop 10/29/16 at 21:59 Dextrose/Sodium Chloride (Iv D5% - 1/2 NS) 1,000 ml @ 75 mls/hr [id number] IV ; Start 10/28/16 at 11:00 Furosemide (Lasix) 40 mg 1X ONCE IVP ; Start 10/28/16 at 11:00; Stop 10/28/16 at 11:01 Active Scripts Active Hydrocodone-Apap 5-325 (Hydrocodone Bit/Acetaminophen) 1 Each Tablet 1 Tab PO PRN Q6HRS PRN Metoprolol Succinate ( Xl ) (Metoprolol Succinate) 25 Mg Tab.er.24h 25 Mg PO DAILY Reported Flomax (Tamsulosin Hcl) 0.4 Mg Cap.er.24h 1 Cap PO QHS Tramadol Hcl 100 Mg Tab.er.24h 100 Mg PO QID Levetiracetam 250 Mg Tablet 250 Mg PO BID Dulcolax (Bisacodyl) 10 Mg Supp.rect 10 Mg RC PRN DAILY PRN Maalox Advanced Suspension (Mag Hydrox/Al Hydrox/Simeth) 770 Ml Oral.susp 30 Ml PO Q2HR PRN Milk Of Magnesia (Magnesium Hydroxide) 400 Mg/5 Ml Oral.susp 30 Ml PO DAILY PRN Robitussin Cough-Chest Dm Liq (Guaifenesin/Dextromethorphan) 118 Ml Liquid 10 Ml PO Q4HRS PRN Trazodone Hcl 50 Mg Tablet 1 Tab PO QHS Tylenol (Acetaminophen) 325 Mg Tablet 650 Mg PO Q6HRS PRN Pramipexole Dihydrochloride (Pramipexole Di-Hcl) 0.5 Mg Tablet 0.5 Mg PO TID Simvastatin 20 Mg Tablet 1 Tab PO QHS Levothyroxine Sodium 100 Mcg Tablet 1 Tab PO DAILY Gabapentin 800 Mg Tablet 800 Mg PO QID Sinemet 25-100 Mg Tablet (Carbidopa/Levodopa) 1 Each Tablet 2 Tab PO TID Aspirin 81 Mg Tab.chew 1 Tab PO DAILY Vitals/I & O Vital Sign - Last 24 Hours 10/27/16 10/27/16 10/27/16 10/27/16 11:00 11:28 12:25 12:41 Temp 97.9 99.2 99.5 97.9 99.2 99.5 Pulse 89 86 86 Resp 16 20 20 B/P 100/37 121/45 114/52 Pulse Ox 90 O2 Delivery Nasal Cannula Nasal Cannula O2 Flow Rate 5.0 3.0 10/27/16 10/27/16 10/27/16 10/27/16 13:32 13:34 15:00 15:14 Temp 98.9 98.9 98.8 98.9 98.9 98.8 Pulse 98 98 80 Resp 18 B/P 116/44 116/44 109/40 Pulse Ox 90 90 O2 Delivery Nasal Cannula Nasal Cannula O2 Flow Rate 3.0 3.0 10/27/16 10/27/16 10/27/16 10/27/16 16:13 16:49 17:02 17:06 Temp 99.6 99.6 99.2 99.6 99.6 99.2 Pulse 91 91 91 Resp 18 16 B/P 119/52 119/52 120/45 Pulse Ox 90 O2 Delivery Nasal Cannula Nasal Cannula O2 Flow Rate 3.0 3.0 10/27/16 10/27/16 10/27/16 10/27/16 17:45 17:45 19:00 19:25 Temp 99.2 99.3 98.8 99.2 99.3 98.8 Pulse 96 88 96 Resp 16 16 B/P 117/55 122/48 130/59 Pulse Ox 90 99 O2 Delivery Nasal Cannula Nasal Cannula O2 Flow Rate 3.0 3.0 10/27/16 10/27/16 10/27/16 10/27/16 20:00 20:08 20:32 22:59 Resp 16 16 O2 Delivery Nasal Cannula Nasal Cannula Nasal Cannula Nasal Cannula O2 Flow Rate 4.0 3.0 4.0 4.0 10/27/16 10/28/16 10/28/16 10/28/16 23:00 01:36 02:06 03:00 Temp 97.6 98.3 97.6 98.3 Pulse 96 98 Resp 16 18 B/P 102/47 126/62 Pulse Ox 98 98 O2 Delivery Nasal Cannula Nasal Cannula Nasal Cannula Nasal Cannula O2 Flow Rate 3.0 4.0 4.0 3.0 10/28/16 10/28/16 10/28/16 10/28/16 03:05 05:52 06:22 07:00 Temp 100.6 100.6 Pulse 102 Resp 18 12 B/P 129/57 Pulse Ox 93 76 O2 Delivery Nasal Cannula Nasal Cannula Nasal Cannula O2 Flow Rate 5.0 4.0 4.0 5.0 10/28/16 10/28/16 10/28/16 10/28/16 07:03 08:30 08:57 09:42 Resp 20 23 Pulse Ox 83 95 96 O2 Delivery Nasal Cannula Bi-pap BiPAP/CPAP BiPAP/CPAP O2 Flow Rate 6.0 10/28/16 10:00 Pulse 101 Resp 24 B/P 141/66 Pulse Ox 83 O2 Delivery BiPAP/CPAP Intake and Output 10/27/16 10/27/16 10/28/16 15:00 23:00 07:00 Intake Total 330 ml 2092 ml 1140 ml Balance 330 ml 2092 ml 1140 ml Problem List Problems Medical Problems: (1) SBO (small bowel obstruction) Status: Acute Assessment Ileus likely persists to some degree. Now with respiratory failure. Plan of Care: Continue current Tx, Mgmt Plan of Care Note Will stand by. RICHARD GUILLORY MD Oct 28, 2016 11:00
[2016-10-28 11:21] LABS: HCO3 ABG 27 mmol/L (21-28); PCO2 ABG 51 mmHg (35-46); PH ABG 7.35 (7.35-7.45); PO2 ABG 135 mmHg (65-108); SAT O2 ABG 98 % (92-99)
[2016-10-28 11:23] LABS: FIO2 ABG 100
--- NOTE | 2016-10-28 11:30 | RAD ---
Indication: Reposition PICC line. Time of exam 11:17 AM Correlation is made with prior study earlier the same day. The PICC line has been pulled back. The tip is now located at the SVC right atrial junction. Bibasilar infiltrates or atelectasis are noted. This shows significant improvement in aeration to the left lung since earlier today with only mild atelectasis seen in the base currently. There is no pneumothorax. Impression: 1. Satisfactory repositioning of right upper extremity PICC line. 2. Significant improved aeration to the left lung since prior exam earlier today. PQRS Compliance Statement: One or more of the following individualized dose reduction techniques were utilized for this examination: 1. Automated exposure control 2. Adjustment of the mA and/or kV according to patient size 3. Use of iterative reconstruction technique
--- NOTE | 2016-10-28 12:00 | PDOC2 ---
PALLIATIVE CARE Palliative Care Note Palliative Care Consult requested by Dr Watson to address goals of care---bronchoscopy to remove mucous plug with short term intubation for procedure. Patient is alert and oriented. Understands his medical condition and choices for care. He is consistent in that he does not want to be intubated. Does not want resuscitation. Daughter Gricel at bedside. States her Dad has wanted DNR/DNI back in January and "I talked him into full code." Patient is able to clearly tell his daughter he does not want to be intubated for bronchoscopy and wants to be DNR. Daughter requested to speak to Cleaner Assistant. Message for associate drafter to visit patient. After review of CXR Dr. Arnett spoke with patient and daughter. Improvement on CXR. Does not need bronchoscopy at this time. Patient remain on BiPap. ROXIE SANTIAGO Oct 28, 2016 12:00
--- NOTE | 2016-10-28 12:22 | PDOC ---
PROGRESS NOTES Subjective Subjective pt developed mucus plugging, hypoxia Objective Objective Vital Signs Date Time Temp Pulse Resp B/P Pulse Ox O2 Delivery O2 Flow Rate FiO2 10/28/16 12:00 6.0 10/28/16 11:56 25 100 BiPAP/CPAP 10/28/16 11:00 95 155/75 10/28/16 07:00 100.6 100.6 Intake and Output 10/28/16 07:00 Intake Total 3562 ml Balance 3562 ml Blood Product 780 ml Blood Product IV Normal Saline Flush 770 ml Other 2012 ml Physical Exam Abdomen: Soft (mod distended) Assessment Assessment Problems Medical Problems: (1) SBO (small bowel obstruction) Status: Acute Plan Plan of Care S/P X lap, no further surgical recs, supportive measures Comment Review of Relevant I have reviewed the following items [place] (where applicable) has been applied. Labs Laboratory Tests Test 10/27/16 04:00 10/28/16 07:26 10/28/16 08:00 10/28/16 11:00 White Blood Count 4.5x10^3/uL (4.0-11.0) 7.6x10^3/uL (4.0-11.0) Red Blood Count 1.93x10^6/uL (4.30-5.70) 3.01x10^6/uL (4.30-5.70) Hemoglobin 6.1g/dL (13.0-17.5) 9.3g/dL (13.0-17.5) Hematocrit 18.7% (39.0-53.0) 28.2% (39.0-53.0) Mean Corpuscular Volume 97fL (79-100) 94fL (79-100) Mean Corpuscular Hemoglobin 32pg (25-35) 31pg (25-35) Mean Corpuscular Hemoglobin Concent 33g/dL (31-37) 33g/dL (31-37) Red Cell Distribution Width 15.7% (11.5-14.5) 17.5% (11.5-14.5) Platelet Count 241x10^3/uL (140-400) 254x10^3/uL (140-400) Neutrophils (%) (Auto) 75% (31-73) 67% (31-73) Lymphocytes (%) (Auto) 14% (24-48) 18% (24-48) Monocytes (%) (Auto) 10% (0-9) 10% (0-9) Eosinophils (%) (Auto) 1% (0-3) 4% (0-3) Basophils (%) (Auto) 1% (0-3) 1% (0-3) Neutrophils # (Auto) 3.3x10^3uL (1.8-7.7) 5.1x10^3uL (1.8-7.7) Lymphocytes # (Auto) 0.6x10^3/uL (1.0-4.8) 1.4x10^3/uL (1.0-4.8) Monocytes # (Auto) 0.4x10^3/uL (0.0-1.1) 0.8x10^3/uL (0.0-1.1) Eosinophils # (Auto) 0.0x10^3/uL (0.0-0.7) 0.3x10^3/uL (0.0-0.7) Basophils # (Auto) 0.0x10^3/uL (0.0-0.2) 0.1x10^3/uL (0.0-0.2) Sodium Level 139mmol/L (136-145) 139mmol/L (136-145) Potassium Level 4.6mmol/L (3.5-5.1) 5.9mmol/L (3.5-5.1) Chloride Level 103mmol/L (98-107) 104mmol/L (98-107) Carbon Dioxide Level 29mmol/L (21-32) 27mmol/L (21-32) Anion Gap 7 (6-14) 8 (6-14) Blood Urea Nitrogen 38mg/dL (8-26) 28mg/dL (8-26) Creatinine 1.8mg/dL (0.7-1.3) 1.5mg/dL (0.7-1.3) Estimated GFR (Cockcroft-Gault) 36.0 44.5 BUN/Creatinine Ratio 21 (6-20) Glucose Level 129mg/dL (70-99) 128mg/dL (70-99) Calcium Level 7.4mg/dL (8.5-10.1) 8.0mg/dL (8.5-10.1) Phosphorus Level 3.5mg/dL (2.6-4.7) 3.8mg/dL (2.6-4.7) Total Bilirubin 0.3mg/dL (0.2-1.0) Aspartate Amino Transf (AST/SGOT) 60U/L (15-37) Alanine Aminotransferase (ALT/SGPT) 63U/L (16-63) Alkaline Phosphatase 91U/L (46-116) Total Protein 5.4g/dL (6.4-8.2) Albumin 1.5g/dL (3.4-5.0) Albumin/Globulin Ratio 0.4 (1.0-1.7) O2 Saturation 82% (92-99) 98% (92-99) Arterial Blood pH 7.36 (7.35-7.45) 7.35 (7.35-7.45) Arterial Blood pCO2 at Patient Temp 49mmHg (35-46) 51mmHg (35-46) Arterial Blood pO2 at Patient Temp 50mmHg (65-108) 135mmHg (65-108) Arterial Blood HCO3 27mmol/L (21-28) 27mmol/L (21-28) Arterial Blood Base Excess 1mmol/L (-3-3) 1mmol/L (-3-3) FiO2 50% 100 Lactic Acid Level 1.0mmol/L (0.4-2.0) Troponin I Quantitative 0.047ng/mL (0.000-0.055) Laboratory Tests Test 10/28/16 07:26 10/28/16 08:00 10/28/16 11:00 O2 Saturation 82% (92-99) 98% (92-99) Arterial Blood pH 7.36 (7.35-7.45) 7.35 (7.35-7.45) Arterial Blood pCO2 at Patient Temp 49mmHg (35-46) 51mmHg (35-46) Arterial Blood pO2 at Patient Temp 50mmHg (65-108) 135mmHg (65-108) Arterial Blood HCO3 27mmol/L (21-28) 27mmol/L (21-28) Arterial Blood Base Excess 1mmol/L (-3-3) 1mmol/L (-3-3) FiO2 50% 100 White Blood Count 7.6x10^3/uL (4.0-11.0) Red Blood Count 3.01x10^6/uL (4.30-5.70) Hemoglobin 9.3g/dL (13.0-17.5) Hematocrit 28.2% (39.0-53.0) Mean Corpuscular Volume 94fL (79-100) Mean Corpuscular Hemoglobin 31pg (25-35) Mean Corpuscular Hemoglobin Concent 33g/dL (31-37) Red Cell Distribution Width 17.5% (11.5-14.5) Platelet Count 254x10^3/uL (140-400) Neutrophils (%) (Auto) 67% (31-73) Lymphocytes (%) (Auto) 18% (24-48) Monocytes (%) (Auto) 10% (0-9) Eosinophils (%) (Auto) 4% (0-3) Basophils (%) (Auto) 1% (0-3) Neutrophils # (Auto) 5.1x10^3uL (1.8-7.7) Lymphocytes # (Auto) 1.4x10^3/uL (1.0-4.8) Monocytes # (Auto) 0.8x10^3/uL (0.0-1.1) Eosinophils # (Auto) 0.3x10^3/uL (0.0-0.7) Basophils # (Auto) 0.1x10^3/uL (0.0-0.2) Sodium Level 139mmol/L (136-145) Potassium Level 5.9mmol/L (3.5-5.1) Chloride Level 104mmol/L (98-107) Carbon Dioxide Level 27mmol/L (21-32) Anion Gap 8 (6-14) Blood Urea Nitrogen 28mg/dL (8-26) Creatinine 1.5mg/dL (0.7-1.3) Estimated GFR (Cockcroft-Gault) 44.5 Glucose Level 128mg/dL (70-99) Lactic Acid Level 1.0mmol/L (0.4-2.0) Calcium Level 8.0mg/dL (8.5-10.1) Phosphorus Level 3.8mg/dL (2.6-4.7) Troponin I Quantitative 0.047ng/mL (0.000-0.055) Microbiology 10/26/16 Blood Culture - Preliminary, Resulted NO GROWTH AFTER 2 DAYS 10/26/16 Gram Stain - Final, Complete 10/13/16 Urine Culture - Final, Complete 10/13/16 Urine Culture Result 1 (MANDEEP) - Final, Complete Medications Current Medications Fentanyl Citrate 50 mcg 50 mcg PRN Q15MIN PRN IV PAIN GREATER THAN 3/10 Last administered on 09/30/16at 19:35; Start 09/30/16 at 17:30; Stop 10/01/16 at 04 :24; Status DC Lactated Ringer's (Iv Lactated Ringers) 1,000 ml @ 100 mls/hr Q10H IV Last administered on 09/30/16at 19:35; Start 09/30/16 at 17:28; Stop 10/01/16 at 03 :27; Status DC Ondansetron HCl (Zofran) 4 mg 1X ONCE IV Last administered on 09/30/16at 17:44 ; Start 09/30/16 at 17:30; Stop 09/30/16 at 17:32; Status DC Fentanyl Citrate (Fentanyl 2ml Vial) 50 mcg 1X ONCE IV ; Start 09/30/16 at 19: 15; Stop 10/01/16 at 04:24; Status DC Ondansetron HCl (Zofran) 4 mg PRN Q8HRS PRN IV NAUSEA/VOMITING Last administered on 09/30/16at 22:07; Start 09/30/16 at 19:15; Stop 10/01/16 at 19 :14; Status DC Fentanyl Citrate 50 mcg 50 mcg PRN Q2HR PRN IV PAIN Last administered on at 16:54; Start 09/30/16 at 19:15; Stop 10/01/16 at 19:14; Status DC Sodium Chloride 1,000 ml @ 100 mls/hr Q10H IV ; Start 09/30/16 at 19:30; Stop 10/01/16 at 04:24; Status DC Potassium Chloride/Dextrose/ Sod Cl (KCl 20 Meq In D5W-1/2 NS) 1,000 ml @ 125 mls/hr Q8H IV Last administered on 10/04/16at 06:02; Start 12/27/16 at 20:00; Stop 10/04/16 at 10:21; Status DC Enoxaparin Sodium 40 mg 40 mg Q24H SQ Last administered on 10/13/16 08:14; Start 10/01/16 at 09:00; Stop 10/13/16 at 08:36; Status DC Levetiracetam/ Sodium Chloride (Keppra/Iv Sodium Chloride 0.9% 100ml) 105 ml @ 400 mls/hr Q12HR IV Last administered on 10/05/16 09:30; Start 09/30/16 at 21: 00; Stop 10/05/16 at 10:24; Status DC Morphine Sulfate 2 mg PRN Q4HRS PRN IV SEVERE PAIN Last administered on 10:13; Start 09/30/16 at 19:30; Stop 10/05/16 at 10:24; Status DC Acetaminophen (Tylenol) 650 mg PRN Q6HRS PRN VT MILD PAIN / TEMP; Start at 19:30; Stop 10/05/16 at 10:24; Status DC Ondansetron HCl (Zofran) 4 mg PRN Q6HRS PRN IV NAUSEA/VOMITING Last administered on 10/07/16 08:28; Start 09/30/16 at 19:30; Stop 10/09/16 at 12:08 ; Status DC Benzocaine (Hurricaine One) 1 spray STK-MED ONCE .ROUTE ; Start 09/30/16 at 19: 51; Stop 09/30/16 at 19:52; Status DC Morphine Sulfate 4 mg PRN Q4HRS PRN IV PAIN Last administered on 10/05/16 08:08 ; Start 10/01/16 at 20:00; Stop 10/05/16 at 10:24; Status DC Clonidine HCl 1 patch 1 patch WEEKLY TD Last administered on 10/03/16at 12:30; Start 10/03/16 at 10:00; Stop 10/05/16 at 10:24; Status DC Piperacillin Sod/ Tazobactam Sod/ Sodium Chloride (Zosyn/Iv Sodium Chloride 0.9 % 50ml) 50 ml @ 100 mls/hr Q6HRS IV Last administered on 10/09/16 06:26; Start 10/04/16 at 11:00; Stop 10/09/16 at 10:55; Status DC Vancomycin HCl 1 each 1 each PRN DAILY PRN MC SEE COMMENTS Last administered on 10/07/16 11:11; Start 10/04/16 at 10:15; Stop 10/07/16 at 11:28; Status DC Vancomycin HCl/ Sodium Chloride (Iv Sodium Chloride 0.9% 250ml) 250 ml @ 250 mls/hr Q24H IV ; Start 10/04/16 at 10:15; Status UNV Labetalol HCl (Normodyne) 20 mg PRN Q6HRS PRN IVP HYPERTENSION, SEE COMMENTS; Start 10/04/16 at 10:15; Stop 10/05/16 at 10:24; Status DC Hydralazine HCl 10 mg 10 mg PRN Q6HRS PRN IVP ELEVATED BP, SEE COMMENTS Last administered on 10/06/16 19:17; Start 10/04/16 at 10:15; Stop 10/12/16 at 10:40 ; Status DC Amino Acids/ Glycerin/ Electrolytes 1,000 ml @ 40 mls/hr Q24H IV Last administered on 10/06/16 09:59; Start 10/04/16 at 10:15; Stop 10/07/16 at 09:06 ; Status DC Vancomycin HCl 2 gm/Sodium Chloride 500 ml @ 250 mls/hr 1X ONCE IV Last administered on 10/04/16at 11:26; Start 10/04/16 at 10:45; Stop 10/04/16 at 12 :44; Status DC Vancomycin HCl/ Sodium Chloride (Iv Sodium Chloride 0.9% 500ml Bag) 500 ml @ 250 mls/hr Q24H IV Last administered on 10/06/16 11:47; Start 10/05/16 at 12:00 ; Stop 10/07/16 at 11:28; Status DC Vancomycin HCl 1 each 1X ONCE MC Last administered on 10/06/16 11:30; Start at 11:30; Stop 10/06/16 at 11:31; Status DC Aspirin (Children'S Aspirin) 81 mg [id number] PO Last administered on 10/13/16 08:15; Start 10/05/16 at 11:00; Stop 10/13/16 at 08:29; Status DC Gabapentin (Neurontin) 600 mg QID PO Last administered on 10/13/16 08:14; Start 10/05/16 at 13:00; Stop 10/14/16 at 08:47; Status DC Levetiracetam (Keppra) 250 mg BID PO Last administered on 10/13/16 08:17; Start 10/05/16 at 11:00; Stop 10/14/16 at 08:47; Status DC Levothyroxine Sodium (Synthroid) 100 mcg [id number] PO Last administered on 05:08; Start 10/05/16 at 10:30; Stop 10/14/16 at 08:48; Status DC Metoprolol Succinate (Toprol Xl) 25 mg DAILY PO Last administered on 10/13/16 08:16; Start 10/05/16 at 11:00; Stop 10/14/16 at 08:47; Status DC Pramipexole Dihydrochloride (miraPEX) 0.5 mg [id number] PO Last administered on 10/13 08:15; Start 10/05/16 at 11:00; Stop 10/14/16 at 08:48; Status DC Simvastatin (Zocor) 20 mg HS PO Last administered on 10/12/16 21:07; Start 10/05 at 21:00; Stop 10/14/16 at 08:48; Status DC Carbidopa/Levodopa (Sinemet Cr) 1 tab.sa TID PO Last administered on 10/13/16 08:16; Start 10/05/16 at 11:00; Stop 10/14/16 at 08:48; Status DC Tamsulosin HCl (Flomax) 0.4 mg QHS PO Last administered on 10/12/16 21:07; Start 10/05/16 at 21:00; Stop 10/14/16 at 08:48; Status DC Tramadol HCl (Ultram) 50 mg QID PO Last administered on 10/13/16 08:17; Start 10/05/16 at 13:00; Stop 10/14/16 at 08:48; Status DC Acetaminophen (Tylenol) 650 mg PRN Q4HRS PRN PO MILD PAIN / TEMP Last administered on 10/13/16 00:17; Start 10/05/16 at 10:15; Stop 10/14/16 at 08:48; Status DC Prednisone (Prednisone) 20 mg 1X ONCE PO Last administered on 10/06/16 11:01; Start 10/06/16 at 10:30; Stop 10/06/16 at 10:31; Status DC Prednisone (Prednisone) 10 mg [id number] PO Last administered on 10/13/16 08:15; Start 10/07/16 at 08:00; Stop 10/13/16 at 08:29; Status DC Al Hydroxide/Mg Hydroxide (Mylanta Plus Xs) 30 ml PRN Q4HRS PRN PO HEARTBURN / GAS Last administered on 10/12/16 21:07; Start 10/07/16 at 08:45; Stop 10/14/16 at 08:48; Status DC Pantoprazole Sodium (Protonix) 40 mg DAILYAC PO Last administered on 10/13/16 05:08; Start 10/07/16 at 10:00; Stop 10/13/16 at 06:45; Status DC Furosemide 40 mg 40 mg DAILY PO Last administered on 10/08/16 08:42; Start 10/07 at 10:00; Stop 10/08/16 at 08:56; Status DC Sodium Chloride (Iv Sodium Chloride 0.45%) 1,000 ml @ 60 mls/hr CONT PRN IV . ; Start 10/08/16 at 09:00; Stop 10/08/16 at 16:06; Status DC Bisacodyl 10 mg 10 mg 1X ONCE VT Last administered on 10/08/16 10:11; Start at 09:30; Stop 10/08/16 at 09:31; Status DC Sodium Chloride (Iv Sodium Chloride 0.45%) 1,000 ml @ 60 mls/hr [id number] IV Last administered on 10/09/16 02:52; Start 10/08/16 at 10:15; Stop 10/09/16 at 12: 00; Status DC Cefpodoxime Proxetil (Vantin) 200 mg BID PO ; Start 10/09/16 at 11:00; Stop at 12:08; Status DC Cefpodoxime Proxetil (Vantin) 100 mg BID PO Last administered on 10/13/16 08:16 ; Start 10/09/16 at 21:00; Stop 10/13/16 at 08:29; Status DC Ondansetron HCl (Zofran) 4 mg STK-MED ONCE .ROUTE Last administered on 01:24; Start 10/13/16 at 01:19; Stop 10/13/16 at 01:20; Status DC Ondansetron HCl (Zofran) 4 mg PRN Q6HRS PRN IV NAUSEA/VOMITING Last administered on 10/27/16 00:39; Start 10/13/16 at 02:00 Pantoprazole Sodium 40 mg 40 mg DAILYAC IVP Last administered on 10/28/16 05: 56; Start 10/13/16 at 07:30 Dextrose/Sodium Chloride (Iv D5% - NS) 1,000 ml @ 60 mls/hr [id number] IV Last administered on 10/13/16 09:25; Start 10/13/16 at 08:30; Stop 10/13/16 at 11:01; Status DC Sodium Polystyrene Sulfonate 15 gm 15 gm 1X ONCE PO Last administered on 09:26; Start 10/13/16 at 08:30; Stop 10/13/16 at 08:31; Status DC Piperacillin Sod/ Tazobactam Sod 3.375 gm/Sodium Chloride 50 ml @ 100 mls/hr Q6HRS IV Last administered on 10/19/16 12:42; Start 10/13/16 at 09:00; Stop at 15:06; Status DC Dextrose/Sodium Chloride (Iv D5% - 1/2 NS) 1,000 ml @ 50 mls/hr Q20H IV Last administered on 10/17/16 00:16; Start 10/13/16 at 11:00; Stop 10/17/16 at 12:23 ; Status DC Ondansetron HCl (Zofran) 4 mg PRN Q6HRS PRN IV Nausea 1ST CHOICE; Start at 12:30; Stop 10/14/16 at 11:07; Status DC Fentanyl Citrate (Fentanyl 2ml Vial) 25 mcg PRN Q5MIN PRN IV MILD PAIN; Start 10/13/16 at 12:30; Stop 10/14/16 at 11:04; Status DC Fentanyl Citrate (Fentanyl 2ml Vial) 50 mcg PRN Q5MIN PRN IV MODERATE PAIN; Start 10/13/16 at 12:30; Stop 10/14/16 at 11:04; Status DC Morphine Sulfate 1 mg 1 mg PRN Q10MIN PRN IV SEVERE PAIN; Start 10/13/16 at 12: 30; Stop 10/14/16 at 11:00; Status DC Lactated Ringer's (Iv Lactated Ringers) 1,000 ml @ 0 mls/hr Q0M IV ; Start 10/13 at 12:17; Stop 10/14/16 at 00:16; Status DC Lidocaine HCl 2 ml 1X PRN PRN ID IV START; Start 10/13/16 at 12:30; Stop at 16:03; Status DC Hydromorphone HCl (Dilaudid) 0.5 mg PRN Q10MIN PRN IV SEV PAIN,Second choice; Start 10/13/16 at 12:30; Stop 10/14/16 at 11:04; Status DC Prochlorperazine Edisylate (Compazine) 5 mg PACU PRN PRN IV NAUSEA; Start at 12:30; Stop 10/14/16 at 11:00; Status DC Fentanyl Citrate (Fentanyl 2ml Vial) 50 mcg PRN Q5MIN PRN IV Acute Pain Last administered on 10/14/16t 10:04; Start 10/13/16 at 13:00; Stop 10/14/16 at 11:04 ; Status DC Morphine Sulfate 4 mg PRN Q10MIN PRN IV Moderate Pain; Start 10/13/16 at 13:00; Stop 10/14/16 at 11:00; Status DC Hydromorphone HCl (Dilaudid) 0.4 mg PRN Q10MIN PRN IV Moderate to severe pain; Start 10/13/16 at 13:00; Stop 10/14/16 at 11:04; Status DC Meperidine HCl (Demerol) 12.5 mg PRN Q5MIN PRN IV SHIVERING; Start 10/13/16 at 13:00; Stop 10/14/16 at 11:00; Status DC Prochlorperazine Edisylate (Compazine) 5 mg PRN Q6HRS PRN IV Nausea/Vomiting, 1st Choice; Start 10/13/16 at 13:00; Stop 10/14/16 at 11:00; Status DC Diphenhydramine HCl (Benadryl) 12.5 mg PRN Q2HR PRN IV ITCHING; Start 10/13/16 at 13:00; Stop 10/14/16 at 11:00; Status DC Midazolam HCl (Versed) 2 mg PRN 1X PRN IV PRIOR TO PROCEDURE; Start 10/13/16 at 13:00; Stop 10/14/16 at 11:07; Status DC Midazolam HCl (Versed) 1 mg PRN 1X PRN IV PRIOR TO PROCEDURE; Start 10/13/16 at 13:00; Stop 10/14/16 at 11:07; Status DC Fentanyl Citrate (Fentanyl 2ml Vial) 25 mcg PRN Q5MIN PRN IV X 2 DOSES FOR PAIN ; Start 10/13/16 at 13:00; Stop 10/14/16 at 11:04; Status DC Fentanyl Citrate 50 mcg 50 mcg PRN Q5MIN PRN IV X 2 DOSES FOR PAIN; Start at 13:00; Stop 10/14/16 at 11:04; Status DC Lactated Ringer's (Iv Lactated Ringers) 1,000 ml @ 125 mls/hr Q8H IV Last administered on 10/13/16 13:30; Start 10/13/16 at 12:48; Stop 10/14/16 at 00:47; Status DC Lidocaine HCl 2 ml 1X PRN PRN ID IV START; Start 10/13/16 at 13:00; Stop at 16:03; Status DC Fentanyl Citrate (Fentanyl 2ml Vial) 25 mcg PRN Q2HR PRN IV PAIN MOD TO SEV; Start 10/13/16 at 20:30; Stop 10/14/16 at 14:15; Status DC Fentanyl Citrate (Fentanyl 2ml Vial) 50 mcg PRN Q2HR PRN IV PAIN MOD TO SEV Last administered on 10/14/16 12:02; Start 10/13/16 at 20:30; Stop 10/14/16 at 14:15; Status DC Enoxaparin Sodium (Lovenox 40mg Syringe) 40 mg Q24H SQ Last administered on 09:18; Start 10/14/16 at 09:00; Stop 10/27/16 at 06:34; Status DC Fentanyl Citrate 100 mcg 100 mcg STK-MED ONCE .ROUTE ; Start 10/13/16 at 13:27; Stop 10/14/16 at 07:31; Status DC Propofol (Diprivan) 20 ml @ As Directed STK-MED ONCE IV ; Start 10/13/16 at 13:27 ; Stop 10/14/16 at 07:31; Status DC Rocuronium Toney (Zemuron) 50 mg STK-MED ONCE .ROUTE ; Start 10/13/16 at 13:27 ; Stop 10/14/16 at 07:31; Status DC Lidocaine HCl 100 mg STK-MED ONCE .ROUTE ; Start 10/13/16 at 13:27; Stop at 07:31; Status DC Fentanyl Citrate (Fentanyl 2ml Vial) 100 mcg STK-MED ONCE .ROUTE ; Start at 13:27; Stop 10/14/16 at 07:31; Status DC Ephedrine Sulfate (Akovaz) 50 mg STK-MED ONCE .ROUTE ; Start 10/13/16 at 14:00; Stop 10/14/16 at 07:31; Status DC Phenylephrine HCl 1 mg STK-MED ONCE IV ; Start 10/13/16 at 14:25; Stop 10/14/16 at 07:31; Status DC Desflurane (Suprane) 60 ml STK-MED ONCE IH ; Start 10/13/16 at 14:25; Stop at 07:31; Status DC Dexamethasone Sodium Phosphate (Decadron) 20 mg STK-MED ONCE .ROUTE ; Start 10/13 at 14:25; Stop 10/14/16 at 07:31; Status DC Ondansetron HCl (Zofran) 4 mg STK-MED ONCE .ROUTE ; Start 10/13/16 at 14:25; Stop 10/14/16 at 07:31; Status DC Famotidine (Pepcid) 20 mg STK-MED ONCE .ROUTE ; Start 10/13/16 at 14:25; Stop 07/21 at 07:31; Status DC Rocuronium Toney (Zemuron) 50 mg STK-MED ONCE .ROUTE ; Start 10/13/16 at 16:19 ; Stop 10/14/16 at 07:31; Status DC Fentanyl Citrate (Fentanyl 2ml Vial) 100 mcg STK-MED ONCE .ROUTE ; Start at 16:21; Stop 10/14/16 at 07:31; Status DC Desflurane (Suprane) 90 ml STK-MED ONCE IH ; Start 10/13/16 at 16:53; Stop at 07:31; Status DC Glycopyrrolate (Robinul) 1 mg STK-MED ONCE .ROUTE ; Start 10/13/16 at 17:00; Stop 10/14/16 at 07:31; Status DC Neostigmine Methylsulfate 5 mg STK-MED ONCE .ROUTE ; Start 10/13/16 at 17:00; Stop 10/14/16 at 07:31; Status DC Phenylephrine HCl 1 mg STK-MED ONCE IV ; Start 10/13/16 at 18:14; Stop 10/14/16 at 07:31; Status DC Fentanyl Citrate (Fentanyl 2ml Vial) 100 mcg STK-MED ONCE .ROUTE ; Start at 18:20; Stop 10/14/16 at 07:31; Status DC Fentanyl Citrate 100 mcg 100 mcg STK-MED ONCE .ROUTE ; Start 10/13/16 at 19:17; Stop 10/14/16 at 07:31; Status DC Levetiracetam 500 mg/Sodium Chloride 105 ml @ 400 mls/hr Q12HR IV Last administered on 10/28/16 09:42; Start 10/14/16 at 09:00 Amino Acids/ Glycerin/ Electrolytes (Procalamine) 1,000 ml @ 80 mls/hr [id number] IV Last administered on 10/16/16 09:16; Start 10/14/16 at 11:15; Stop at 21:59; Status DC Morphine Sulfate 2 mg PRN Q4HRS PRN IV MODERATE PAIN Last administered on 00:57; Start 10/14/16 at 14:15; Stop 10/27/16 at 12:52; Status DC Morphine Sulfate 4 mg PRN Q4HRS PRN IV SEVERE PAIN Last administered on 11:21; Start 10/14/16 at 14:30 Info 1 each 1 each PRN DAILY PRN MC SEE COMMENTS Last administered on 10:32; Start 10/16/16 at 11:30; Stop 10/28/16 at 10:48; Status DC Sodium Chloride/ Potassium Chloride/ Potassium Phosphate/ Magnesium Sulfate/ Calcium Gluconate/ Multivitamins/ Minerals/Chromium/ Copper/Manganese/ Seleni/Zn /Total Parenteral Nutrition/Amino Acids/Dextrose/ Fat Emulsion Intravenous ( Sodium Chloride/ Potassium Phospha... 1,512 ml @ 63 mls/hr TPN CONT IV ; Start 10/16/16 at 22:00; Stop 10/17/16 at 12:50; Status DC Lidocaine/Sodium Bicarbonate 20 ml 20 ml STK-MED ONCE IJ ; Start 10/17/16 at 08: 20; Stop 10/17/16 at 08:21; Status DC Heparin Sodium/ Sodium Chloride 500 ml @ As Directed STK-MED ONCE .ROUTE ; Start 10/17/16 at 08:20; Stop 10/17/16 at 08:21; Status DC Lidocaine/Sodium Bicarbonate (Buffered Lidocaine 1%) 3 ml 1X ONCE IJ Last administered on 10/17/16 08:30; Start 10/17/16 at 08:30; Stop 10/17/16 at 08:31 ; Status DC Heparin Sodium/ Sodium Chloride 60 unit 1X ONCE IV Last administered on 08:30; Start 10/17/16 at 08:30; Stop 10/17/16 at 08:31; Status DC Iohexol (Omnipaque 300 Mg/ml) 50 ml STK-MED ONCE .ROUTE ; Start 10/17/16 at 09: 02; Stop 10/17/16 at 09:03; Status DC Iohexol (Omnipaque 300 Mg/ml) 43 ml 1X ONCE IART Last administered on 08:45; Start 10/17/16 at 09:30; Stop 10/17/16 at 09:33; Status DC Info (Do NOT chart on this entry -- for MONITORING) 1 each PRN DAILY PRN MC SEE COMMENTS; Start 10/17/16 at 09:45; Stop 10/19/16 at 09:44; Status DC Clonidine HCl (Catapres Tts-2) 1 patch WEEKLY TD Last administered on 09:12; Start 10/17/16 at 11:00; Stop 10/26/16 at 09:54; Status DC Labetalol HCl 20 mg 20 mg PRN Q6HRS PRN IVP HYPERTENSION, SEE COMMENTS Last administered on 10/26/16 17:55; Start 10/17/16 at 10:30 Sodium Chloride 1,000 ml @ 60 mls/hr [id number] IV Last administered on 06:32; Start 10/17/16 at 12:30; Stop 10/19/16 at 10:06; Status DC Sodium Chloride 90 meq/Potassium Chloride 50 meq/ Potassium Phosphate 13.6 mmol/ Magnesium Sulfate 10 meq/ Calcium Gluconate 10 meq/ Multivitamins/ Minerals 10 ml/ Chromium/Copper/ Manganese/Seleni/ Zn 1 ml/Total Parenteral Nutrition/Amino Acids/Dextrose/ Fat Emulsion Intravenous 1,512 ml @ 63 mls/hr TPN CONT IV Last administered on 10/17/16 21:09; Start 10/17/16 at 22:00; Stop 10/18/16 at 21:59; Status DC Sodium Chloride/ Potassium Chloride/ Potassium Phosphate/ Magnesium Sulfate/ Calcium Gluconate/ Multivitamins/ Minerals/Chromium/ Copper/Manganese/ Seleni/Zn /Total Parenteral Nutrition/Amino Acids/Dextrose/ Fat Emulsion Intravenous ( Sodium Chloride/ Potassium Phospha... 1,512 ml @ 63 mls/hr TPN CONT IV Last administered on 10/18/16 21:24; Start 10/18/16 at 22:00; Stop 10/19/16 at 21:59 ; Status DC Furosemide 20 mg 20 mg 1X ONCE IVP Last administered on 10/19/16 11:01; Start 10/19/16 at 10:30; Stop 10/19/16 at 10:31; Status DC Sodium Chloride 90 meq/Sodium Acetate 40 meq/ Potassium Chloride 50 meq/ Potassium Phosphate 13.6 mmol/Magnesium Sulfate 10 meq/ Calcium Gluconate 10 meq / Multivitamins/ Minerals 10 ml/ Chromium/Copper/ Manganese/Seleni/ Zn 1 ml/ Total Parenteral Nutrition/Amino Acids/Dextro... 1,920 ml @ 80 mls/hr TPN CONT IV Last administered on 10/19/16 22:29; Start 10/19/16 at 22:00; Stop at 21:59; Status DC Sodium Chloride 1,000 ml @ 45 mls/hr [id number] IV Last administered on 22:24; Start 10/20/16 at 09:00; Stop 10/21/16 at 09:26; Status DC Magnesium Sulfate/ Dextrose 50 ml @ 25 mls/hr PRN DAILY PRN IV for Mag < 1.7 on am labs; Start 10/20/16 at 13:15 Sodium Chloride/ Sodium Acetate/ Potassium Chloride/ Potassium Phosphate/ Magnesium Sulfate/ Calcium Gluconate/ Multivitamins/ Minerals/Chromium/ Copper/ Manganese/ Seleni/Zn/Total Parenteral Nutrition/Amino Acids/Dextrose/ Fat Emulsion Intravenous (Sodium Chloride/ Potass... 1,920 ml @ 80 mls/hr TPN CONT IV Last administered on 10/20/16 22:23; Start 10/20/16 at 22:00; Stop at 21:59; Status DC Acetaminophen/ Hydrocodone Bitart 1 tab 1 tab PRN Q4HRS PRN PO PAIN Last administered on 10/21/16 23:51; Start 10/21/16 at 09:30; Stop 10/22/16 at 10:39 ; Status DC Sodium Chloride/ Sodium Acetate/ Potassium Chloride/ Potassium Phosphate/ Magnesium Sulfate/ Calcium Gluconate/ Multivitamins/ Minerals/Chromium/ Copper/ Manganese/ Seleni/Zn/Total Parenteral Nutrition/Amino Acids/Dextrose/ Fat Emulsion Intravenous (Sodium Chloride/ Potass... 1,920 ml @ 80 mls/hr TPN CONT IV Last administered on 10/21/16 22:22; Start 10/21/16 at 22:00; Stop at 21:59; Status DC Metoclopramide HCl (Reglan) 10 mg 1X ONCE IV Last administered on 10/22/16 01 :56; Start 10/22/16 at 02:00; Stop 10/22/16 at 02:01; Status DC Lorazepam (Ativan) 1 mg 1X ONCE IV Last administered on 10/22/16 02:35; Start 10/22/16 at 02:30; Stop 10/22/16 at 02:31; Status DC Morphine Sulfate 2 mg PRN Q1HR PRN IV CHEST PAIN Last administered on 05:25; Start 10/22/16 at 02:30 Famotidine (Pepcid) 20 mg 1X ONCE IVP Last administered on 10/22/16 02:35; Start 10/22/16 at 02:30; Stop 10/22/16 at 02:31; Status DC Hydralazine HCl (Apresoline) 10 mg PRN Q6HRS PRN IVP ELEVATED BP, SEE COMMENTS ; Start 10/22/16 at 10:45 Iohexol (Omnipaque 300 Mg/ml) 60 ml 1X ONCE PO Last administered on 10/22/16 11:43; Start 10/22/16 at 11:00; Stop 10/22/16 at 11:01; Status DC Iohexol (Omnipaque 300 Mg/ml) 60 ml 1X ONCE IV Last administered on 10/22/16 11:19; Start 10/22/16 at 11:00; Stop 10/22/16 at 11:01; Status DC Info 1 each 1 each PRN DAILY PRN MC SEE COMMENTS; Start 10/22/16 at 11:00; Stop 10/24/16 at 10:59; Status DC Sodium Chloride 50 meq/Sodium Acetate 80 meq/ Potassium Chloride 50 meq/ Potassium Phosphate 18 mmol/ Magnesium Sulfate 10 meq/Calcium Gluconate 10 meq/ Multivitamins/ Minerals 10 ml/ Chromium/Copper/ Manganese/Seleni/ Zn 1 ml/Total Parenteral Nutrition/Amino Acids/Dextrose/ Fat Emuls... 1,920 ml @ 80 mls/hr TPN CONT IV Last administered on 10/22/16 21:46; Start 10/22/16 at 22:00; Stop 10/23/16 at 21:59; Status DC Levothyroxine Sodium/Sodium Chloride (Synthroid/Iv Sodium Chloride 0.9% 50ml) 5 ml @ 100 mls/hr DAILY IVP Last administered on 10/28/16 09:42; Start 10/23/16 at 14:00 Furosemide (Lasix) 20 mg 1X ONCE IVP Last administered on 10/23/16 12:45; Start 10/23/16 at 12:30; Stop 10/23/16 at 12:31; Status DC Alteplase, Recombinant 2 mg 2 mg 1X ONCE INT CAT Last administered on 12:45; Start 10/23/16 at 12:30; Stop 10/23/16 at 12:31; Status DC Sodium Chloride/ Sodium Acetate/ Potassium Chloride/ Potassium Phosphate/ Magnesium Sulfate/ Calcium Gluconate/ Multivitamins/ Minerals/Chromium/ Copper/ Manganese/ Seleni/Zn/Total Parenteral Nutrition/Amino Acids/Dextrose/ Fat Emulsion Intravenous (Sodium Chloride/ Potass... 1,920 ml @ 80 mls/hr TPN CONT IV Last administered on 10/23/16 21:37; Start 10/23/16 at 22:00; Stop at 21:59; Status DC Acetaminophen 650 mg 650 mg PRN Q6HRS PRN VT MILD PAIN / TEMP Last administered on 10/23/16 23:09; Start 10/23/16 at 23:00; Stop 10/26/16 at 10:04 ; Status DC Potassium Chloride/Dextrose/ Sod Cl 1,000 ml @ 80 mls/hr [id number] IV Last administered on 10/24/16 10:08; Start 10/24/16 at 09:30; Stop 10/24/16 at 13:58 ; Status DC Sodium Chloride 50 meq/Sodium Acetate 80 meq/ Potassium Chloride 50 meq/ Potassium Phosphate 18 mmol/ Magnesium Sulfate 10 meq/Calcium Gluconate 10 meq/ Multivitamins/ Minerals 10 ml/ Chromium/Copper/ Manganese/Seleni/ Zn 1 ml/Total Parenteral Nutrition/Amino Acids/Dextrose/ Fat Emuls... 1,920 ml @ 80 mls/hr TPN CONT IV Last administered on 10/24/16 22:10; Start 10/24/16 at 22:00; Stop 10/25/16 at 21:59; Status DC Sodium Chloride (Iv Sodium Chloride 0.45%) 1,000 ml @ 45 mls/hr [id number] IV Last administered on 10/24/16 14:00; Start 10/24/16 at 14:00; Stop 10/25/16 at 11:47; Status DC Albuterol/ Ipratropium (Duoneb) 3 ml RTQID NEB Last administered on 10/28/16 10:58; Start 10/25/16 at 12:00 Albuterol Sulfate (Ventolin Neb Soln) 2.5 mg PRN Q4HRS PRN NEB SOA; Start 10/25 at 12:00 Furosemide 40 mg 40 mg 1X ONCE IVP Last administered on 10/25/16 13:49; Start 10/25/16 at 11:45; Stop 10/25/16 at 11:53; Status DC Sodium Chloride 50 meq/Sodium Acetate 80 meq/ Potassium Chloride 50 meq/ Potassium Phosphate 18 mmol/ Magnesium Sulfate 10 meq/Calcium Gluconate 10 meq/ Multivitamins/ Minerals 10 ml/ Chromium/Copper/ Manganese/Seleni/ Zn 1 ml/Total Parenteral Nutrition/Amino Acids/Dextrose/ Fat Emuls... 1,920 ml @ 80 mls/hr TPN CONT IV Last administered on 10/25/16 21:06; Start 10/25/16 at 22:00; Stop 10/26/16 at 21:59; Status DC Albumin Human (Albuminar) 100 ml @ 100 mls/hr 1X ONCE IV Last administered on 10/25/16 18:19; Start 10/25/16 at 16:45; Stop 10/25/16 at 17:44; Status DC Furosemide 40 mg 40 mg 1X ONCE IVP Last administered on 10/25/16 18:24; Start 10/25/16 at 16:45; Stop 10/25/16 at 16:46; Status DC Piperacillin Sod/ Tazobactam Sod 3.375 gm/Sodium Chloride 50 ml @ 100 mls/hr Q8HRS IV Last administered on 10/28/16 05:46; Start 10/26/16 at 10:00 Linezolid (Zyvox Premix) 300 ml @ 300 mls/hr Q12HR IV Last administered on 09:42; Start 10/26/16 at 10:00 Bisacodyl 10 mg 10 mg 1X ONCE VT Last administered on 10/27/16 09:11; Start 10/26/16 at 10:00; Stop 10/26/16 at 10:02; Status DC Sodium Chloride (Iv Sodium Chloride 0.45%) 1,000 ml @ 45 mls/hr [id number] IV Last administered on 10/27/16 09:11; Start 10/26/16 at 10:00; Stop 10/28/16 at 10:07; Status DC Acetaminophen 650 mg 650 mg PRN Q6HRS PRN VT MILD PAIN / TEMP Last administered on 10/26/16 23:04; Start 10/26/16 at 10:00 Sodium Chloride 50 meq/Sodium Acetate 80 meq/ Potassium Chloride 50 meq/ Potassium Phosphate 18 mmol/ Magnesium Sulfate 10 meq/Calcium Gluconate 10 meq/ Multivitamins/ Minerals 10 ml/ Chromium/Copper/ Manganese/Seleni/ Zn 1 ml/Total Parenteral Nutrition/Amino Acids/Dextrose/ Fat Emuls... 1,920 ml @ 80 mls/hr TPN CONT IV Last administered on 10/26/16 22:02; Start 10/26/16 at 22:00; Stop 10/27/16 at 21:59; Status DC Micafungin Sodium/ Dextrose (Mycamine) 100 ml @ 100 mls/hr Q24H IV Last administered on 10/27/16 20:25; Start 10/26/16 at 21:00 Morphine Sulfate 2 mg 2 mg PRN Q4HRS PRN IV MODERATE PAIN Last administered on 10/28/16 01:36; Start 10/27/16 at 13:00 Sodium Chloride/ Sodium Acetate/ Potassium Chloride/ Potassium Phosphate/ Magnesium Sulfate/ Calcium Gluconate/ Multivitamins/ Minerals/Chromium/ Copper/ Manganese/ Seleni/Zn/Total Parenteral Nutrition/Amino Acids/Dextrose/ Fat Emulsion Intravenous (Sodium Chloride/ Potass... 1,920 ml @ 80 mls/hr TPN CONT IV Last administered on 10/27/16 22:51; Start 10/27/16 at 22:00; Stop at 21:59 Diphenhydramine HCl (Benadryl) 25 mg 1X ONCE IM Last administered on 14:08; Start 10/27/16 at 14:30; Stop 10/27/16 at 14:31; Status DC Furosemide (Lasix) 20 mg 1X ONCE IVP Last administered on 10/28/16 08:15; Start 10/28/16 at 08:00; Stop 10/28/16 at 08:01; Status DC Furosemide 40 mg 40 mg 1X ONCE IVP ; Start 10/28/16 at 10:00; Stop 10/28/16 at 10:01; Status DC Sodium Chloride 50 meq/Sodium Acetate 60 meq/ Sodium Phosphate 18 mmol/ Magnesium Sulfate 10 meq/ Calcium Gluconate 6 meq/ Multivitamins/ Minerals 10 ml / Chromium/Copper/ Manganese/Seleni/ Zn 1 ml/Total Parenteral Nutrition/Amino Acids/Dextrose/ Fat Emulsion Intravenous 1,080 ml @ 45 mls/hr TPN CONT IV ; Start 10/28/16 at 22:00; Stop 10/29/16 at 21:59 Dextrose/Sodium Chloride (Iv D5% - 1/2 NS) 1,000 ml @ 75 mls/hr [id number] IV ; Start 10/28/16 at 11:00; Stop 10/28/16 at 11:12; Status DC Furosemide (Lasix) 40 mg 1X ONCE IVP ; Start 10/28/16 at 11:00; Stop 10/28/16 at 11:01; Status DC Info 1 each PRN DAILY PRN MC SEE COMMENTS; Start 10/28/16 at 11:15 Active Scripts Active Hydrocodone-Apap 5-325 (Hydrocodone Bit/Acetaminophen) 1 Each Tablet 1 Tab PO PRN Q6HRS PRN Metoprolol Succinate ( Xl ) (Metoprolol Succinate) 25 Mg Tab.er.24h 25 Mg PO DAILY Reported Flomax (Tamsulosin Hcl) 0.4 Mg Cap.er.24h 1 Cap PO QHS Tramadol Hcl 100 Mg Tab.er.24h 100 Mg PO QID Levetiracetam 250 Mg Tablet 250 Mg PO BID Dulcolax (Bisacodyl) 10 Mg Supp.rect 10 Mg RC PRN DAILY PRN Maalox Advanced Suspension (Mag Hydrox/Al Hydrox/Simeth) 770 Ml Oral.susp 30 Ml PO Q2HR PRN Milk Of Magnesia (Magnesium Hydroxide) 400 Mg/5 Ml Oral.susp 30 Ml PO DAILY PRN Robitussin Cough-Chest Dm Liq (Guaifenesin/Dextromethorphan) 118 Ml Liquid 10 Ml PO Q4HRS PRN Trazodone Hcl 50 Mg Tablet 1 Tab PO QHS Tylenol (Acetaminophen) 325 Mg Tablet 650 Mg PO Q6HRS PRN Pramipexole Dihydrochloride (Pramipexole Di-Hcl) 0.5 Mg Tablet 0.5 Mg PO TID Simvastatin 20 Mg Tablet 1 Tab PO QHS Levothyroxine Sodium 100 Mcg Tablet 1 Tab PO DAILY Gabapentin 800 Mg Tablet 800 Mg PO QID Sinemet 25-100 Mg Tablet (Carbidopa/Levodopa) 1 Each Tablet 2 Tab PO TID Aspirin 81 Mg Tab.chew 1 Tab PO DAILY Vitals/I & O Vital Sign - Last 24 Hours 10/27/16 10/27/16 10/27/16 10/27/16 12:25 12:41 13:32 13:34 Temp 99.2 99.5 98.9 99.2 99.5 98.9 Pulse 86 86 98 Resp 20 20 20 B/P 121/45 114/52 116/44 Pulse Ox 90 O2 Delivery Nasal Cannula O2 Flow Rate 3.0 10/27/16 10/27/16 10/27/16 10/27/16 15:00 15:14 16:13 16:49 Temp 98.9 98.8 99.6 98.9 98.8 99.6 Pulse 98 80 91 Resp 18 18 B/P 116/44 109/40 119/52 Pulse Ox 90 O2 Delivery Nasal Cannula Nasal Cannula O2 Flow Rate 3.0 3.0 10/27/16 10/27/16 10/27/16 10/27/16 17:02 17:06 17:45 17:45 Temp 99.6 99.2 99.2 99.6 99.2 99.2 Pulse 91 91 96 Resp 16 16 B/P 119/52 120/45 117/55 Pulse Ox 90 90 O2 Delivery Nasal Cannula Nasal Cannula O2 Flow Rate 3.0 3.0 10/27/16 10/27/16 10/27/16 10/27/16 19:00 19:25 20:00 20:08 Temp 99.3 98.8 99.3 98.8 Pulse 88 96 Resp 16 B/P 122/48 130/59 Pulse Ox 99 O2 Delivery Nasal Cannula Nasal Cannula Nasal Cannula O2 Flow Rate 3.0 4.0 3.0 10/27/16 10/27/16 10/27/16 10/28/16 20:32 22:59 23:00 01:36 Temp 97.6 97.6 Pulse 96 Resp 16 16 16 B/P 102/47 Pulse Ox 98 O2 Delivery Nasal Cannula Nasal Cannula Nasal Cannula Nasal Cannula O2 Flow Rate 4.0 4.0 3.0 4.0 10/28/16 10/28/16 10/28/16 10/28/16 02:06 03:00 03:05 05:52 Temp 98.3 98.3 Pulse 98 Resp 18 18 B/P 126/62 Pulse Ox 98 93 O2 Delivery Nasal Cannula Nasal Cannula Nasal Cannula Nasal Cannula O2 Flow Rate 4.0 3.0 5.0 4.0 1/24/17 1/24/17 1/24/17 1/24/17 06:22 07:00 07:03 08:30 Temp 100.6 100.6 Pulse 102 Resp 12 B/P 129/57 Pulse Ox 76 83 92 O2 Delivery Nasal Cannula Nasal Cannula BiPAP/CPAP O2 Flow Rate 4.0 5.0 6.0 10/28/16 10/28/16 10/28/16 10/28/16 08:30 08:57 10:00 10:59 Pulse 101 Resp 20 24 B/P 141/66 Pulse Ox 95 83 100 O2 Delivery Bi-pap BiPAP/CPAP BiPAP/CPAP BiPAP/CPAP 10/28/16 10/28/16 10/28/16 10/28/16 11:00 11:21 11:56 12:00 Pulse 95 Resp 21 23 25 B/P 155/75 Pulse Ox 100 100 100 O2 Delivery BiPAP/CPAP BiPAP/CPAP BiPAP/CPAP O2 Flow Rate 6.0 Intake and Output 10/27/16 10/27/16 10/28/16 15:00 23:00 07:00 Intake Total 330 ml 2092 ml 1140 ml Balance 330 ml 2092 ml 1140 ml KENDRICK CULVER MD Oct 28, 2016 12:21
[2016-10-28] MEDS: ACETAMINOPHEN 650 MG SUPP.RECT. PR PRN (20:02)
[2016-10-28] MEDS: MICAFUNGIN 100 MG in IV DEXTROSE 5% 100 ML IV SCH (20:38)
[2016-10-28] MEDS ORDERED: AMINO ACID IV SCH ×10 (22:00)
[2016-10-28] MEDS ORDERED: [UNRECOGNIZED DRUG - OTHER] IV SCH ×10 (22:00)
[2016-10-28] MEDS ORDERED: TOTAL PARENTERAL NUTRITION IV SCH ×10 (22:00)
[2016-10-28] MEDS ORDERED: DEXTROSE 70% IV SCH ×10 (22:00)
[2016-10-29] VITALS (24 sets, daily range): BP systolic 108–186; BP diastolic 57–80
[2016-10-29] MEDS: MORPHINE SULFATE 2 MG/ML DISP.SYRIN. IV PRN ×6 (04:02→22:47)
[2016-10-29 05:38] LABS: BASO % 0 % (0-3); EOS % 3 % (0-3); HEMOGLOBIN 8.1 g/dL (13.0-17.5); LYMPH % 15 % (24-48); MEAN CORPUSCULAR HEMOGLOBIN 31 pg (25-35); MEAN CORPUSCULAR HGB CONC 33 g/dL (31-37); MEAN CORPUSCULAR VOLUME 95 fL (79-100); MONO % 11 % (0-9); NEUT % 71 % (31-73); PLATELET COUNT 230 x10^3/uL (140-400); RED BLOOD COUNT 2.65 x10^6/uL (4.30-5.70); RED CELL DISTRIBUTION WIDTH 17.1 % (11.5-14.5); WHITE BLOOD COUNT 6.7 x10^3/uL (4.0-11.0)
[2016-10-29] MEDS: PIPERACILLIN/TAZOBACTAM 3.375 GM in IV NORMAL SALINE 50ML 50 ML IV SCH ×3 (05:38→22:13)
[2016-10-29 05:58] LABS: ALBUMIN 1.4 g/dL (3.4-5.0); ALBUMIN/GLOBULIN RATIO 0.3 (1.0-1.7); CREATININE 1.5 mg/dL (0.7-1.3); GFR 44.5; TOTAL BILIRUBIN 0.3 mg/dL (0.2-1.0); TOTAL PROTEIN 5.9 g/dL (6.4-8.2)
[2016-10-29 05:59] LABS: MAGNESIUM 2.1 mg/dL (1.8-2.4); PHOSPHORUS 3.3 mg/dL (2.6-4.7)
[2016-10-29] MEDS: MORPHINE SULFATE 4 MG/ML DISP.SYRIN. IV PRN ×2 (08:01→17:33)
[2016-10-29] MEDS: PANTOPRAZOLE IV PUSH 40 MG VIAL. IVP SCH (08:01)
--- NOTE | 2016-10-29 08:01 | RAD ---
Portable chest, 10/29/2016: History: Mucous plug Comparison is made to yesterday's study at 11:17 AM. A right PICC extends into the inferior aspect of the superior vena cava. The heart is enlarged. The pulmonary vascularity is within normal limits. There are bibasilar opacities compatible with infiltrate and atelectasis, with slight interval worsening on the right. There may be pleural fluid contributing to these opacities. IMPRESSION: Moderate bibasilar atelectasis/infiltrate with slight interval worsening on the right.
[2016-10-29] MEDS: LEVETIRACETAM 500 MG in IV NORMAL SALINE 100ML 100 ML IV SCH ×2 (08:09→20:28)
--- NOTE | 2016-10-29 08:10 | PDOC ---
Infectious Disease Note Subjective Subjective On Bipap - ok ROS ROS Difficult to obtain Vital Sign Vital Signs Vital Signs Date Time Temp Pulse Resp B/P Pulse Ox O2 Delivery O2 Flow Rate FiO2 10/29/16 06:00 78 22 110/64 99 BiPAP/CPAP 10/29/16 04:02 6.0 10/29/16 04:00 99.7 99.7 Physical Exam PHYSICAL EXAM GENERAL: In bed, NAD, coop on Bipap HEENT: nonicteric NECK: Supple, no JVD, no LN LUNGS: CTA HEART: S1S2, no gallop, no murmur ABD: Obese, hypoactive BS, NT light palpation. No guard/No rebound. Incision well-approx. No redness or drainage. EXT: BLE trace edema. No cyanosis SPECIAL EDUCATION ASSISTANT: Alert, 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. + tremor SKIN: No rash PICC RUE - clean Labs Lab Laboratory Tests Test 10/28/16 11:00 10/29/16 05:15 O2 Saturation 98% (92-99) Arterial Blood pH 7.35 (7.35-7.45) Arterial Blood pCO2 at Patient Temp 51mmHg (35-46) Arterial Blood pO2 at Patient Temp 135mmHg (65-108) Arterial Blood HCO3 27mmol/L (21-28) Arterial Blood Base Excess 1mmol/L (-3-3) FiO2 100 White Blood Count 6.7x10^3/uL (4.0-11.0) Red Blood Count 2.65x10^6/uL (4.30-5.70) Hemoglobin 8.1g/dL (13.0-17.5) Hematocrit 25.0% (39.0-53.0) Mean Corpuscular Volume 95fL (79-100) Mean Corpuscular Hemoglobin 31pg (25-35) Mean Corpuscular Hemoglobin Concent 33g/dL (31-37) Red Cell Distribution Width 17.1% (11.5-14.5) Platelet Count 230x10^3/uL (140-400) Neutrophils (%) (Auto) 71% (31-73) Lymphocytes (%) (Auto) 15% (24-48) Monocytes (%) (Auto) 11% (0-9) Eosinophils (%) (Auto) 3% (0-3) Basophils (%) (Auto) 0% (0-3) Neutrophils # (Auto) 4.8x10^3uL (1.8-7.7) Lymphocytes # (Auto) 1.0x10^3/uL (1.0-4.8) Monocytes # (Auto) 0.8x10^3/uL (0.0-1.1) Eosinophils # (Auto) 0.2x10^3/uL (0.0-0.7) Basophils # (Auto) 0.0x10^3/uL (0.0-0.2) Sodium Level 138mmol/L (136-145) Potassium Level 4.0mmol/L (3.5-5.1) Chloride Level 104mmol/L (98-107) Carbon Dioxide Level 28mmol/L (21-32) Anion Gap 6 (6-14) Blood Urea Nitrogen 25mg/dL (8-26) Creatinine 1.5mg/dL (0.7-1.3) Estimated GFR (Cockcroft-Gault) 44.5 BUN/Creatinine Ratio 17 (6-20) Glucose Level 157mg/dL (70-99) Calcium Level 8.0mg/dL (8.5-10.1) Phosphorus Level 3.3mg/dL (2.6-4.7) Magnesium Level 2.1mg/dL (1.8-2.4) Total Bilirubin 0.3mg/dL (0.2-1.0) Aspartate Amino Transf (AST/SGOT) 32U/L (15-37) Alanine Aminotransferase (ALT/SGPT) 37U/L (16-63) Alkaline Phosphatase 80U/L (46-116) Total Protein 5.9g/dL (6.4-8.2) Albumin 1.4g/dL (3.4-5.0) Albumin/Globulin Ratio 0.3 (1.0-1.7) Micro Klebsiella pneumoniae 50,000-100,000 colony forming units per mL ANTIMICROBIAL SUSCEPTIBILITY Final Comment S = Susceptible; I = Intermediate; R = Resistant P = Positive; N = Negative MICS are expressed in micrograms per mL Antibiotic RSLT#1 RSLT#2 RSLT#3 RSLT#4 Amoxicillin/Clavulanic Acid S Ampicillin R Cefepime S Ceftriaxone S Cefuroxime S Cephalothin S Ciprofloxacin S Ertapenem S Gentamicin S Imipenem S Levofloxacin S Nitrofurantoin S Piperacillin S Tetracycline S Tobramycin S Trimethoprim/Sulfa S Objective Assessment Acute resp failure now on Bipap. Mucus plugg Fever - ? Infection vs. PRBCs Acute anemia s/p PRBCs MRSA sputum 10/26. GNR 10/25 Coarse right breath sounds - better TAYLOR Klebsiella UTI 10/04 although a lot of squamous cells present on UA Small bowel obstruction - seems improved and no NGT Left hand pain and warmth - better with less edema N/V - better Dislodgement of NGT - out Hiatal hernia + MRSA Cipro allergy. Seizure disorder Parkinson's disease h/o UTI: Citrobacter & Klebsiella h/o E. coli bacteremia Plan Plan of Care Cont Zyvox/Zosyn/Micafungin F/u cults/labs DNR Critically ill SAMI MARTINEZ MD Oct 29, 2016 08:10
[2016-10-29] MEDS: LEVOTHYROXINE SODIUM 50 MCG in IV NORMAL SALINE 50ML 5 ML IVP SCH (09:04)
[2016-10-29] MEDS: IPRATRPIUM/ALBUTEROL 0.5/2.5MG 3 ML NEBU. NEB SCH ×4 (09:10→19:26)
--- NOTE | 2016-10-29 09:27 | PDOC ---
G I PROGRESS NOTE Subjective Sleeping. Did not awaken. On BIPAP. Objective Others' notes reviewed. Physical Exam No PE. Review of Relevant I have reviewed the following items [place] (where applicable) has been applied. Labs Laboratory Tests Test 10/28/16 07:26 10/28/16 08:00 10/28/16 11:00 10/29/16 05:15 O2 Saturation 82% (92-99) 98% (92-99) Arterial Blood pH 7.36 (7.35-7.45) 7.35 (7.35-7.45) Arterial Blood pCO2 at Patient Temp 49mmHg (35-46) 51mmHg (35-46) Arterial Blood pO2 at Patient Temp 50mmHg (65-108) 135mmHg (65-108) Arterial Blood HCO3 27mmol/L (21-28) 27mmol/L (21-28) Arterial Blood Base Excess 1mmol/L (-3-3) 1mmol/L (-3-3) FiO2 50% 100 White Blood Count 7.6x10^3/uL (4.0-11.0) 6.7x10^3/uL (4.0-11.0) Red Blood Count 3.01x10^6/uL (4.30-5.70) 2.65x10^6/uL (4.30-5.70) Hemoglobin 9.3g/dL (13.0-17.5) 8.1g/dL (13.0-17.5) Hematocrit 28.2% (39.0-53.0) 25.0% (39.0-53.0) Mean Corpuscular Volume 94fL (79-100) 95fL (79-100) Mean Corpuscular Hemoglobin 31pg (25-35) 31pg (25-35) Mean Corpuscular Hemoglobin Concent 33g/dL (31-37) 33g/dL (31-37) Red Cell Distribution Width 17.5% (11.5-14.5) 17.1% (11.5-14.5) Platelet Count 254x10^3/uL (140-400) 230x10^3/uL (140-400) Neutrophils (%) (Auto) 67% (31-73) 71% (31-73) Lymphocytes (%) (Auto) 18% (24-48) 15% (24-48) Monocytes (%) (Auto) 10% (0-9) 11% (0-9) Eosinophils (%) (Auto) 4% (0-3) 3% (0-3) Basophils (%) (Auto) 1% (0-3) 0% (0-3) Neutrophils # (Auto) 5.1x10^3uL (1.8-7.7) 4.8x10^3uL (1.8-7.7) Lymphocytes # (Auto) 1.4x10^3/uL (1.0-4.8) 1.0x10^3/uL (1.0-4.8) Monocytes # (Auto) 0.8x10^3/uL (0.0-1.1) 0.8x10^3/uL (0.0-1.1) Eosinophils # (Auto) 0.3x10^3/uL (0.0-0.7) 0.2x10^3/uL (0.0-0.7) Basophils # (Auto) 0.1x10^3/uL (0.0-0.2) 0.0x10^3/uL (0.0-0.2) Sodium Level 139mmol/L (136-145) 138mmol/L (136-145) Potassium Level 5.9mmol/L (3.5-5.1) 4.0mmol/L (3.5-5.1) Chloride Level 104mmol/L (98-107) 104mmol/L (98-107) Carbon Dioxide Level 27mmol/L (21-32) 28mmol/L (21-32) Anion Gap 8 (6-14) 6 (6-14) Blood Urea Nitrogen 28mg/dL (8-26) 25mg/dL (8-26) Creatinine 1.5mg/dL (0.7-1.3) 1.5mg/dL (0.7-1.3) Estimated GFR (Cockcroft-Gault) 44.5 44.5 Glucose Level 128mg/dL (70-99) 157mg/dL (70-99) Lactic Acid Level 1.0mmol/L (0.4-2.0) Calcium Level 8.0mg/dL (8.5-10.1) 8.0mg/dL (8.5-10.1) Phosphorus Level 3.8mg/dL (2.6-4.7) 3.3mg/dL (2.6-4.7) Troponin I Quantitative 0.047ng/mL (0.000-0.055) BUN/Creatinine Ratio 17 (6-20) Magnesium Level 2.1mg/dL (1.8-2.4) Total Bilirubin 0.3mg/dL (0.2-1.0) Aspartate Amino Transf (AST/SGOT) 32U/L (15-37) Alanine Aminotransferase (ALT/SGPT) 37U/L (16-63) Alkaline Phosphatase 80U/L (46-116) Total Protein 5.9g/dL (6.4-8.2) Albumin 1.4g/dL (3.4-5.0) Albumin/Globulin Ratio 0.3 (1.0-1.7) Laboratory Tests Test 10/28/16 11:00 10/29/16 05:15 O2 Saturation 98% (92-99) Arterial Blood pH 7.35 (7.35-7.45) Arterial Blood pCO2 at Patient Temp 51mmHg (35-46) Arterial Blood pO2 at Patient Temp 135mmHg (65-108) Arterial Blood HCO3 27mmol/L (21-28) Arterial Blood Base Excess 1mmol/L (-3-3) FiO2 100 White Blood Count 6.7x10^3/uL (4.0-11.0) Red Blood Count 2.65x10^6/uL (4.30-5.70) Hemoglobin 8.1g/dL (13.0-17.5) Hematocrit 25.0% (39.0-53.0) Mean Corpuscular Volume 95fL (79-100) Mean Corpuscular Hemoglobin 31pg (25-35) Mean Corpuscular Hemoglobin Concent 33g/dL (31-37) Red Cell Distribution Width 17.1% (11.5-14.5) Platelet Count 230x10^3/uL (140-400) Neutrophils (%) (Auto) 71% (31-73) Lymphocytes (%) (Auto) 15% (24-48) Monocytes (%) (Auto) 11% (0-9) Eosinophils (%) (Auto) 3% (0-3) Basophils (%) (Auto) 0% (0-3) Neutrophils # (Auto) 4.8x10^3uL (1.8-7.7) Lymphocytes # (Auto) 1.0x10^3/uL (1.0-4.8) Monocytes # (Auto) 0.8x10^3/uL (0.0-1.1) Eosinophils # (Auto) 0.2x10^3/uL (0.0-0.7) Basophils # (Auto) 0.0x10^3/uL (0.0-0.2) Sodium Level 138mmol/L (136-145) Potassium Level 4.0mmol/L (3.5-5.1) Chloride Level 104mmol/L (98-107) Carbon Dioxide Level 28mmol/L (21-32) Anion Gap 6 (6-14) Blood Urea Nitrogen 25mg/dL (8-26) Creatinine 1.5mg/dL (0.7-1.3) Estimated GFR (Cockcroft-Gault) 44.5 BUN/Creatinine Ratio 17 (6-20) Glucose Level 157mg/dL (70-99) Calcium Level 8.0mg/dL (8.5-10.1) Phosphorus Level 3.3mg/dL (2.6-4.7) Magnesium Level 2.1mg/dL (1.8-2.4) Total Bilirubin 0.3mg/dL (0.2-1.0) Aspartate Amino Transf (AST/SGOT) 32U/L (15-37) Alanine Aminotransferase (ALT/SGPT) 37U/L (16-63) Alkaline Phosphatase 80U/L (46-116) Total Protein 5.9g/dL (6.4-8.2) Albumin 1.4g/dL (3.4-5.0) Albumin/Globulin Ratio 0.3 (1.0-1.7) Microbiology 10/26/16 Blood Culture - Preliminary, Resulted NO GROWTH AFTER 2 DAYS 10/26/16 Gram Stain - Final, Complete 10/13/16 Urine Culture - Final, Complete 10/13/16 Urine Culture Result 1 (MANDEEP) - Final, Complete Medications Current Medications Fentanyl Citrate 50 mcg 50 mcg PRN Q15MIN PRN IV PAIN GREATER THAN 3/10 Last administered on 09/30/16at 19:35; Start 09/30/16 at 17:30; Stop 10/01/16 at 04 :24; Status DC Lactated Ringer's (Iv Lactated Ringers) 1,000 ml @ 100 mls/hr Q10H IV Last administered on 09/30/16at 19:35; Start 09/30/16 at 17:28; Stop 10/01/16 at 03 :27; Status DC Ondansetron HCl (Zofran) 4 mg 1X ONCE IV Last administered on 09/30/16at 17:44 ; Start 09/30/16 at 17:30; Stop 09/30/16 at 17:32; Status DC Fentanyl Citrate (Fentanyl 2ml Vial) 50 mcg 1X ONCE IV ; Start 09/30/16 at 19: 15; Stop 10/01/16 at 04:24; Status DC Ondansetron HCl (Zofran) 4 mg PRN Q8HRS PRN IV NAUSEA/VOMITING Last administered on 09/30/16at 22:07; Start 09/30/16 at 19:15; Stop 10/01/16 at 19 :14; Status DC Fentanyl Citrate 50 mcg 50 mcg PRN Q2HR PRN IV PAIN Last administered on at 16:54; Start 09/30/16 at 19:15; Stop 10/01/16 at 19:14; Status DC Sodium Chloride 1,000 ml @ 100 mls/hr Q10H IV ; Start 09/30/16 at 19:30; Stop 10/01/16 at 04:24; Status DC Potassium Chloride/Dextrose/ Sod Cl (KCl 20 Meq In D5W-1/2 NS) 1,000 ml @ 125 mls/hr Q8H IV Last administered on 10/04/16at 06:02; Start 09/30/16 at 20:00; Stop 10/04/16 at 10:21; Status DC Enoxaparin Sodium 40 mg 40 mg Q24H SQ Last administered on 10/13/16t 08:14; Start 10/01/16 at 09:00; Stop 10/13/16 at 08:36; Status DC Levetiracetam/ Sodium Chloride (Keppra/Iv Sodium Chloride 0.9% 100ml) 105 ml @ 400 mls/hr Q12HR IV Last administered on 10/05/16 09:30; Start 09/30/16 at 21: 00; Stop 10/05/16 at 10:24; Status DC Morphine Sulfate 2 mg PRN Q4HRS PRN IV SEVERE PAIN Last administered on 10:13; Start 09/30/16 at 19:30; Stop 10/05/16 at 10:24; Status DC Acetaminophen (Tylenol) 650 mg PRN Q6HRS PRN GA MILD PAIN / TEMP; Start at 19:30; Stop 10/05/16 at 10:24; Status DC Ondansetron HCl (Zofran) 4 mg PRN Q6HRS PRN IV NAUSEA/VOMITING Last administered on 10/07/16 08:28; Start 09/30/16 at 19:30; Stop 10/09/16 at 12:08 ; Status DC Benzocaine (Hurricaine One) 1 spray STK-MED ONCE .ROUTE ; Start 09/30/16 at 19: 51; Stop 09/30/16 at 19:52; Status DC Morphine Sulfate 4 mg PRN Q4HRS PRN IV PAIN Last administered on 10/05/16 08:08 ; Start 10/01/16 at 20:00; Stop 10/05/16 at 10:24; Status DC Clonidine HCl 1 patch 1 patch WEEKLY TD Last administered on 10/03/16at 12:30; Start 10/03/16 at 10:00; Stop 10/05/16 at 10:24; Status DC Piperacillin Sod/ Tazobactam Sod/ Sodium Chloride (Zosyn/Iv Sodium Chloride 0.9 % 50ml) 50 ml @ 100 mls/hr Q6HRS IV Last administered on 10/09/16 06:26; Start 10/04/16 at 11:00; Stop 10/09/16 at 10:55; Status DC Vancomycin HCl 1 each 1 each PRN DAILY PRN MC SEE COMMENTS Last administered on 10/07/16 11:11; Start 10/04/16 at 10:15; Stop 10/07/16 at 11:28; Status DC Vancomycin HCl/ Sodium Chloride (Iv Sodium Chloride 0.9% 250ml) 250 ml @ 250 mls/hr Q24H IV ; Start 10/04/16 at 10:15; Status UNV Labetalol HCl (Normodyne) 20 mg PRN Q6HRS PRN IVP HYPERTENSION, SEE COMMENTS; Start 10/04/16 at 10:15; Stop 10/05/16 at 10:24; Status DC Hydralazine HCl 10 mg 10 mg PRN Q6HRS PRN IVP ELEVATED BP, SEE COMMENTS Last administered on 10/06/16 19:17; Start 10/04/16 at 10:15; Stop 10/12/16 at 10:40 ; Status DC Amino Acids/ Glycerin/ Electrolytes 1,000 ml @ 40 mls/hr Q24H IV Last administered on 10/06/16 09:59; Start 10/04/16 at 10:15; Stop 10/07/16 at 09:06 ; Status DC Vancomycin HCl 2 gm/Sodium Chloride 500 ml @ 250 mls/hr 1X ONCE IV Last administered on 10/04/16at 11:26; Start 10/04/16 at 10:45; Stop 10/04/16 at 12 :44; Status DC Vancomycin HCl/ Sodium Chloride (Iv Sodium Chloride 0.9% 500ml Bag) 500 ml @ 250 mls/hr Q24H IV Last administered on 10/06/16 11:47; Start 10/05/16 at 12:00 ; Stop 10/07/16 at 11:28; Status DC Vancomycin HCl 1 each 1X ONCE MC Last administered on 10/06/16 11:30; Start at 11:30; Stop 10/06/16 at 11:31; Status DC Aspirin (Children'S Aspirin) 81 mg [id number] PO Last administered on 10/13/16 08:15; Start 10/05/16 at 11:00; Stop 10/13/16 at 08:29; Status DC Gabapentin (Neurontin) 600 mg QID PO Last administered on 10/13/16 08:14; Start 10/05/16 at 13:00; Stop 10/14/16 at 08:47; Status DC Levetiracetam (Keppra) 250 mg BID PO Last administered on 10/13/16 08:17; Start 10/05/16 at 11:00; Stop 10/14/16 at 08:47; Status DC Levothyroxine Sodium (Synthroid) 100 mcg [id number] PO Last administered on 05:08; Start 10/05/16 at 10:30; Stop 10/14/16 at 08:48; Status DC Metoprolol Succinate (Toprol Xl) 25 mg DAILY PO Last administered on 10/13/16 08:16; Start 10/05/16 at 11:00; Stop 10/14/16 at 08:47; Status DC Pramipexole Dihydrochloride (miraPEX) 0.5 mg [id number] PO Last administered on 10/13 08:15; Start 10/05/16 at 11:00; Stop 10/14/16 at 08:48; Status DC Simvastatin (Zocor) 20 mg HS PO Last administered on 10/12/16 21:07; Start 10/05 at 21:00; Stop 10/14/16 at 08:48; Status DC Carbidopa/Levodopa (Sinemet Cr) 1 tab.sa TID PO Last administered on 10/13/16 08:16; Start 10/05/16 at 11:00; Stop 10/14/16 at 08:48; Status DC Tamsulosin HCl (Flomax) 0.4 mg QHS PO Last administered on 10/12/16 21:07; Start 10/05/16 at 21:00; Stop 10/14/16 at 08:48; Status DC Tramadol HCl (Ultram) 50 mg QID PO Last administered on 10/13/16 08:17; Start 10/05/16 at 13:00; Stop 10/14/16 at 08:48; Status DC Acetaminophen (Tylenol) 650 mg PRN Q4HRS PRN PO MILD PAIN / TEMP Last administered on 10/13/16 00:17; Start 10/05/16 at 10:15; Stop 10/14/16 at 08:48; Status DC Prednisone (Prednisone) 20 mg 1X ONCE PO Last administered on 10/06/16 11:01; Start 10/06/16 at 10:30; Stop 10/06/16 at 10:31; Status DC Prednisone (Prednisone) 10 mg DAILY08 PO Last administered on 10/13/16 08:15; Start 10/07/16 at 08:00; Stop 10/13/16 at 08:29; Status DC Al Hydroxide/Mg Hydroxide (Mylanta Plus Xs) 30 ml PRN Q4HRS PRN PO HEARTBURN / GAS Last administered on 10/12/16 21:07; Start 10/07/16 at 08:45; Stop 10/14/16 at 08:48; Status DC Pantoprazole Sodium (Protonix) 40 mg DAILYAC PO Last administered on 10/13/16 05:08; Start 10/07/16 at 10:00; Stop 10/13/16 at 06:45; Status DC Furosemide 40 mg 40 mg DAILY PO Last administered on 10/08/16 08:42; Start 10/07 at 10:00; Stop 10/08/16 at 08:56; Status DC Sodium Chloride (Iv Sodium Chloride 0.45%) 1,000 ml @ 60 mls/hr CONT PRN IV . ; Start 10/08/16 at 09:00; Stop 10/08/16 at 16:06; Status DC Bisacodyl 10 mg 10 mg 1X ONCE GA Last administered on 10/08/16 10:11; Start at 09:30; Stop 10/08/16 at 09:31; Status DC Sodium Chloride (Iv Sodium Chloride 0.45%) 1,000 ml @ 60 mls/hr [id number] IV Last administered on 10/09/16 02:52; Start 10/08/16 at 10:15; Stop 10/09/16 at 12: 00; Status DC Cefpodoxime Proxetil (Vantin) 200 mg BID PO ; Start 10/09/16 at 11:00; Stop at 12:08; Status DC Cefpodoxime Proxetil (Vantin) 100 mg BID PO Last administered on 10/13/16 08:16 ; Start 10/09/16 at 21:00; Stop 10/13/16 at 08:29; Status DC Ondansetron HCl (Zofran) 4 mg STK-MED ONCE .ROUTE Last administered on 01:24; Start 10/13/16 at 01:19; Stop 10/13/16 at 01:20; Status DC Ondansetron HCl (Zofran) 4 mg PRN Q6HRS PRN IV NAUSEA/VOMITING Last administered on 10/27/16 00:39; Start 10/13/16 at 02:00 Pantoprazole Sodium 40 mg 40 mg DAILYAC IVP Last administered on 10/29/16 08: 01; Start 10/13/16 at 07:30 Dextrose/Sodium Chloride (Iv D5% - NS) 1,000 ml @ 60 mls/hr [id number] IV Last administered on 10/13/16 09:25; Start 10/13/16 at 08:30; Stop 10/13/16 at 11:01; Status DC Sodium Polystyrene Sulfonate 15 gm 15 gm 1X ONCE PO Last administered on 09:26; Start 10/13/16 at 08:30; Stop 10/13/16 at 08:31; Status DC Piperacillin Sod/ Tazobactam Sod 3.375 gm/Sodium Chloride 50 ml @ 100 mls/hr Q6HRS IV Last administered on 10/19/16 12:42; Start 10/13/16 at 09:00; Stop at 15:06; Status DC Dextrose/Sodium Chloride (Iv D5% - 1/2 NS) 1,000 ml @ 50 mls/hr Q20H IV Last administered on 10/17/16 00:16; Start 10/13/16 at 11:00; Stop 10/17/16 at 12:23 ; Status DC Ondansetron HCl (Zofran) 4 mg PRN Q6HRS PRN IV Nausea 1ST CHOICE; Start at 12:30; Stop 10/14/16 at 11:07; Status DC Fentanyl Citrate (Fentanyl 2ml Vial) 25 mcg PRN Q5MIN PRN IV MILD PAIN; Start 10/13/16 at 12:30; Stop 10/14/16 at 11:04; Status DC Fentanyl Citrate (Fentanyl 2ml Vial) 50 mcg PRN Q5MIN PRN IV MODERATE PAIN; Start 10/13/16 at 12:30; Stop 10/14/16 at 11:04; Status DC Morphine Sulfate 1 mg 1 mg PRN Q10MIN PRN IV SEVERE PAIN; Start 10/13/16 at 12: 30; Stop 10/14/16 at 11:00; Status DC Lactated Ringer's (Iv Lactated Ringers) 1,000 ml @ 0 mls/hr Q0M IV ; Start 10/13 at 12:17; Stop 10/14/16 at 00:16; Status DC Lidocaine HCl 2 ml 1X PRN PRN ID IV START; Start 10/13/16 at 12:30; Stop at 16:03; Status DC Hydromorphone HCl (Dilaudid) 0.5 mg PRN Q10MIN PRN IV SEV PAIN,Second choice; Start 10/13/16 at 12:30; Stop 10/14/16 at 11:04; Status DC Prochlorperazine Edisylate (Compazine) 5 mg PACU PRN PRN IV NAUSEA; Start at 12:30; Stop 10/14/16 at 11:00; Status DC Fentanyl Citrate (Fentanyl 2ml Vial) 50 mcg PRN Q5MIN PRN IV Acute Pain Last administered on 10/14/16t 10:04; Start 10/13/16 at 13:00; Stop 10/14/16 at 11:04 ; Status DC Morphine Sulfate 4 mg PRN Q10MIN PRN IV Moderate Pain; Start 10/13/16 at 13:00; Stop 10/14/16 at 11:00; Status DC Hydromorphone HCl (Dilaudid) 0.4 mg PRN Q10MIN PRN IV Moderate to severe pain; Start 10/13/16 at 13:00; Stop 10/14/16 at 11:04; Status DC Meperidine HCl (Demerol) 12.5 mg PRN Q5MIN PRN IV SHIVERING; Start 10/13/16 at 13:00; Stop 10/14/16 at 11:00; Status DC Prochlorperazine Edisylate (Compazine) 5 mg PRN Q6HRS PRN IV Nausea/Vomiting, 1st Choice; Start 10/13/16 at 13:00; Stop 10/14/16 at 11:00; Status DC Diphenhydramine HCl (Benadryl) 12.5 mg PRN Q2HR PRN IV ITCHING; Start 10/13/16 at 13:00; Stop 10/14/16 at 11:00; Status DC Midazolam HCl (Versed) 2 mg PRN 1X PRN IV PRIOR TO PROCEDURE; Start 10/13/16 at 13:00; Stop 10/14/16 at 11:07; Status DC Midazolam HCl (Versed) 1 mg PRN 1X PRN IV PRIOR TO PROCEDURE; Start 10/13/16 at 13:00; Stop 10/14/16 at 11:07; Status DC Fentanyl Citrate (Fentanyl 2ml Vial) 25 mcg PRN Q5MIN PRN IV X 2 DOSES FOR PAIN ; Start 10/13/16 at 13:00; Stop 10/14/16 at 11:04; Status DC Fentanyl Citrate 50 mcg 50 mcg PRN Q5MIN PRN IV X 2 DOSES FOR PAIN; Start at 13:00; Stop 10/14/16 at 11:04; Status DC Lactated Ringer's (Iv Lactated Ringers) 1,000 ml @ 125 mls/hr Q8H IV Last administered on 10/13/16 13:30; Start 10/13/16 at 12:48; Stop 10/14/16 at 00:47; Status DC Lidocaine HCl 2 ml 1X PRN PRN ID IV START; Start 10/13/16 at 13:00; Stop at 16:03; Status DC Fentanyl Citrate (Fentanyl 2ml Vial) 25 mcg PRN Q2HR PRN IV PAIN MOD TO SEV; Start 10/13/16 at 20:30; Stop 10/14/16 at 14:15; Status DC Fentanyl Citrate (Fentanyl 2ml Vial) 50 mcg PRN Q2HR PRN IV PAIN MOD TO SEV Last administered on 10/14/16 12:02; Start 10/13/16 at 20:30; Stop 10/14/16 at 14:15; Status DC Enoxaparin Sodium (Lovenox 40mg Syringe) 40 mg Q24H SQ Last administered on 09:18; Start 10/14/16 at 09:00; Stop 10/27/16 at 06:34; Status DC Fentanyl Citrate 100 mcg 100 mcg STK-MED ONCE .ROUTE ; Start 10/13/16 at 13:27; Stop 10/14/16 at 07:31; Status DC Propofol (Diprivan) 20 ml @ As Directed STK-MED ONCE IV ; Start 10/13/16 at 13:27 ; Stop 10/14/16 at 07:31; Status DC Rocuronium Prospect (Zemuron) 50 mg STK-MED ONCE .ROUTE ; Start 10/13/16 at 13:27 ; Stop 10/14/16 at 07:31; Status DC Lidocaine HCl 100 mg STK-MED ONCE .ROUTE ; Start 10/13/16 at 13:27; Stop at 07:31; Status DC Fentanyl Citrate (Fentanyl 2ml Vial) 100 mcg STK-MED ONCE .ROUTE ; Start at 13:27; Stop 10/14/16 at 07:31; Status DC Ephedrine Sulfate (Akovaz) 50 mg STK-MED ONCE .ROUTE ; Start 10/13/16 at 14:00; Stop 10/14/16 at 07:31; Status DC Phenylephrine HCl 1 mg STK-MED ONCE IV ; Start 10/13/16 at 14:25; Stop 10/14/16 at 07:31; Status DC Desflurane (Suprane) 60 ml STK-MED ONCE IH ; Start 10/13/16 at 14:25; Stop at 07:31; Status DC Dexamethasone Sodium Phosphate (Decadron) 20 mg STK-MED ONCE .ROUTE ; Start 10/13 at 14:25; Stop 10/14/16 at 07:31; Status DC Ondansetron HCl (Zofran) 4 mg STK-MED ONCE .ROUTE ; Start 10/13/16 at 14:25; Stop 10/14/16 at 07:31; Status DC Famotidine (Pepcid) 20 mg STK-MED ONCE .ROUTE ; Start 10/13/16 at 14:25; Stop 07/21 at 07:31; Status DC Rocuronium Prospect (Zemuron) 50 mg STK-MED ONCE .ROUTE ; Start 10/13/16 at 16:19 ; Stop 10/14/16 at 07:31; Status DC Fentanyl Citrate (Fentanyl 2ml Vial) 100 mcg STK-MED ONCE .ROUTE ; Start at 16:21; Stop 10/14/16 at 07:31; Status DC Desflurane (Suprane) 90 ml STK-MED ONCE IH ; Start 10/13/16 at 16:53; Stop at 07:31; Status DC Glycopyrrolate (Robinul) 1 mg STK-MED ONCE .ROUTE ; Start 10/13/16 at 17:00; Stop 10/14/16 at 07:31; Status DC Neostigmine Methylsulfate 5 mg STK-MED ONCE .ROUTE ; Start 10/13/16 at 17:00; Stop 10/14/16 at 07:31; Status DC Phenylephrine HCl 1 mg STK-MED ONCE IV ; Start 10/13/16 at 18:14; Stop 10/14/16 at 07:31; Status DC Fentanyl Citrate (Fentanyl 2ml Vial) 100 mcg STK-MED ONCE .ROUTE ; Start at 18:20; Stop 10/14/16 at 07:31; Status DC Fentanyl Citrate 100 mcg 100 mcg STK-MED ONCE .ROUTE ; Start 10/13/16 at 19:17; Stop 10/14/16 at 07:31; Status DC Levetiracetam 500 mg/Sodium Chloride 105 ml @ 400 mls/hr Q12HR IV Last administered on 10/29/16 08:09; Start 10/14/16 at 09:00 Amino Acids/ Glycerin/ Electrolytes (Procalamine) 1,000 ml @ 80 mls/hr [id number] IV Last administered on 10/16/16 09:16; Start 10/14/16 at 11:15; Stop at 21:59; Status DC Morphine Sulfate 2 mg PRN Q4HRS PRN IV MODERATE PAIN Last administered on 00:57; Start 10/14/16 at 14:15; Stop 10/27/16 at 12:52; Status DC Morphine Sulfate 4 mg PRN Q4HRS PRN IV SEVERE PAIN Last administered on 08:01; Start 10/14/16 at 14:30 Info 1 each 1 each PRN DAILY PRN MC SEE COMMENTS Last administered on 10:32; Start 10/16/16 at 11:30; Stop 10/28/16 at 10:48; Status DC Sodium Chloride/ Potassium Chloride/ Potassium Phosphate/ Magnesium Sulfate/ Calcium Gluconate/ Multivitamins/ Minerals/Chromium/ Copper/Manganese/ Seleni/Zn /Total Parenteral Nutrition/Amino Acids/Dextrose/ Fat Emulsion Intravenous ( Sodium Chloride/ Potassium Phospha... 1,512 ml @ 63 mls/hr TPN CONT IV ; Start 10/16/16 at 22:00; Stop 10/17/16 at 12:50; Status DC Lidocaine/Sodium Bicarbonate 20 ml 20 ml STK-MED ONCE IJ ; Start 10/17/16 at 08: 20; Stop 10/17/16 at 08:21; Status DC Heparin Sodium/ Sodium Chloride 500 ml @ As Directed STK-MED ONCE .ROUTE ; Start 10/17/16 at 08:20; Stop 10/17/16 at 08:21; Status DC Lidocaine/Sodium Bicarbonate (Buffered Lidocaine 1%) 3 ml 1X ONCE IJ Last administered on 10/17/16 08:30; Start 10/17/16 at 08:30; Stop 10/17/16 at 08:31 ; Status DC Heparin Sodium/ Sodium Chloride 60 unit 1X ONCE IV Last administered on 08:30; Start 10/17/16 at 08:30; Stop 10/17/16 at 08:31; Status DC Iohexol (Omnipaque 300 Mg/ml) 50 ml STK-MED ONCE .ROUTE ; Start 10/17/16 at 09: 02; Stop 10/17/16 at 09:03; Status DC Iohexol (Omnipaque 300 Mg/ml) 43 ml 1X ONCE IART Last administered on 08:45; Start 10/17/16 at 09:30; Stop 10/17/16 at 09:33; Status DC Info (Do NOT chart on this entry -- for MONITORING) 1 each PRN DAILY PRN MC SEE COMMENTS; Start 10/17/16 at 09:45; Stop 10/19/16 at 09:44; Status DC Clonidine HCl (Catapres Tts-2) 1 patch WEEKLY TD Last administered on 09:12; Start 10/17/16 at 11:00; Stop 10/26/16 at 09:54; Status DC Labetalol HCl 20 mg 20 mg PRN Q6HRS PRN IVP HYPERTENSION, SEE COMMENTS Last administered on 10/26/16 17:55; Start 10/17/16 at 10:30 Sodium Chloride 1,000 ml @ 60 mls/hr [id number] IV Last administered on 06:32; Start 10/17/16 at 12:30; Stop 10/19/16 at 10:06; Status DC Sodium Chloride 90 meq/Potassium Chloride 50 meq/ Potassium Phosphate 13.6 mmol/ Magnesium Sulfate 10 meq/ Calcium Gluconate 10 meq/ Multivitamins/ Minerals 10 ml/ Chromium/Copper/ Manganese/Seleni/ Zn 1 ml/Total Parenteral Nutrition/Amino Acids/Dextrose/ Fat Emulsion Intravenous 1,512 ml @ 63 mls/hr TPN CONT IV Last administered on 10/17/16 21:09; Start 10/17/16 at 22:00; Stop 10/18/16 at 21:59; Status DC Sodium Chloride/ Potassium Chloride/ Potassium Phosphate/ Magnesium Sulfate/ Calcium Gluconate/ Multivitamins/ Minerals/Chromium/ Copper/Manganese/ Seleni/Zn /Total Parenteral Nutrition/Amino Acids/Dextrose/ Fat Emulsion Intravenous ( Sodium Chloride/ Potassium Phospha... 1,512 ml @ 63 mls/hr TPN CONT IV Last administered on 10/18/16 21:24; Start 10/18/16 at 22:00; Stop 10/19/16 at 21:59 ; Status DC Furosemide 20 mg 20 mg 1X ONCE IVP Last administered on 10/19/16 11:01; Start 10/19/16 at 10:30; Stop 10/19/16 at 10:31; Status DC Sodium Chloride 90 meq/Sodium Acetate 40 meq/ Potassium Chloride 50 meq/ Potassium Phosphate 13.6 mmol/Magnesium Sulfate 10 meq/ Calcium Gluconate 10 meq / Multivitamins/ Minerals 10 ml/ Chromium/Copper/ Manganese/Seleni/ Zn 1 ml/ Total Parenteral Nutrition/Amino Acids/Dextro... 1,920 ml @ 80 mls/hr TPN CONT IV Last administered on 10/19/16 22:29; Start 10/19/16 at 22:00; Stop at 21:59; Status DC Sodium Chloride 1,000 ml @ 45 mls/hr [id number] IV Last administered on 22:24; Start 10/20/16 at 09:00; Stop 10/21/16 at 09:26; Status DC Magnesium Sulfate/ Dextrose 50 ml @ 25 mls/hr PRN DAILY PRN IV for Mag < 1.7 on am labs; Start 10/20/16 at 13:15 Sodium Chloride/ Sodium Acetate/ Potassium Chloride/ Potassium Phosphate/ Magnesium Sulfate/ Calcium Gluconate/ Multivitamins/ Minerals/Chromium/ Copper/ Manganese/ Seleni/Zn/Total Parenteral Nutrition/Amino Acids/Dextrose/ Fat Emulsion Intravenous (Sodium Chloride/ Potass... 1,920 ml @ 80 mls/hr TPN CONT IV Last administered on 10/20/16 22:23; Start 10/20/16 at 22:00; Stop at 21:59; Status DC Acetaminophen/ Hydrocodone Bitart 1 tab 1 tab PRN Q4HRS PRN PO PAIN Last administered on 10/21/16 23:51; Start 10/21/16 at 09:30; Stop 10/22/16 at 10:39 ; Status DC Sodium Chloride/ Sodium Acetate/ Potassium Chloride/ Potassium Phosphate/ Magnesium Sulfate/ Calcium Gluconate/ Multivitamins/ Minerals/Chromium/ Copper/ Manganese/ Seleni/Zn/Total Parenteral Nutrition/Amino Acids/Dextrose/ Fat Emulsion Intravenous (Sodium Chloride/ Potass... 1,920 ml @ 80 mls/hr TPN CONT IV Last administered on 10/21/16 22:22; Start 10/21/16 at 22:00; Stop at 21:59; Status DC Metoclopramide HCl (Reglan) 10 mg 1X ONCE IV Last administered on 10/22/16 01 :56; Start 10/22/16 at 02:00; Stop 10/22/16 at 02:01; Status DC Lorazepam (Ativan) 1 mg 1X ONCE IV Last administered on 10/22/16 02:35; Start 10/22/16 at 02:30; Stop 10/22/16 at 02:31; Status DC Morphine Sulfate 2 mg PRN Q1HR PRN IV CHEST PAIN Last administered on 04:02; Start 10/22/16 at 02:30 Famotidine (Pepcid) 20 mg 1X ONCE IVP Last administered on 10/22/16 02:35; Start 10/22/16 at 02:30; Stop 10/22/16 at 02:31; Status DC Hydralazine HCl (Apresoline) 10 mg PRN Q6HRS PRN IVP ELEVATED BP, SEE COMMENTS ; Start 10/22/16 at 10:45 Iohexol (Omnipaque 300 Mg/ml) 60 ml 1X ONCE PO Last administered on 10/22/16 11:43; Start 10/22/16 at 11:00; Stop 10/22/16 at 11:01; Status DC Iohexol (Omnipaque 300 Mg/ml) 60 ml 1X ONCE IV Last administered on 10/22/16 11:19; Start 10/22/16 at 11:00; Stop 10/22/16 at 11:01; Status DC Info 1 each 1 each PRN DAILY PRN MC SEE COMMENTS; Start 10/22/16 at 11:00; Stop 10/24/16 at 10:59; Status DC Sodium Chloride 50 meq/Sodium Acetate 80 meq/ Potassium Chloride 50 meq/ Potassium Phosphate 18 mmol/ Magnesium Sulfate 10 meq/Calcium Gluconate 10 meq/ Multivitamins/ Minerals 10 ml/ Chromium/Copper/ Manganese/Seleni/ Zn 1 ml/Total Parenteral Nutrition/Amino Acids/Dextrose/ Fat Emuls... 1,920 ml @ 80 mls/hr TPN CONT IV Last administered on 10/22/16 21:46; Start 10/22/16 at 22:00; Stop 10/23/16 at 21:59; Status DC Levothyroxine Sodium/Sodium Chloride (Synthroid/Iv Sodium Chloride 0.9% 50ml) 5 ml @ 100 mls/hr DAILY IVP Last administered on 10/29/16 09:04; Start 10/23/16 at 14:00 Furosemide (Lasix) 20 mg 1X ONCE IVP Last administered on 10/23/16 12:45; Start 10/23/16 at 12:30; Stop 10/23/16 at 12:31; Status DC Alteplase, Recombinant 2 mg 2 mg 1X ONCE INT CAT Last administered on 12:45; Start 10/23/16 at 12:30; Stop 10/23/16 at 12:31; Status DC Sodium Chloride/ Sodium Acetate/ Potassium Chloride/ Potassium Phosphate/ Magnesium Sulfate/ Calcium Gluconate/ Multivitamins/ Minerals/Chromium/ Copper/ Manganese/ Seleni/Zn/Total Parenteral Nutrition/Amino Acids/Dextrose/ Fat Emulsion Intravenous (Sodium Chloride/ Potass... 1,920 ml @ 80 mls/hr TPN CONT IV Last administered on 10/23/16 21:37; Start 10/23/16 at 22:00; Stop at 21:59; Status DC Acetaminophen 650 mg 650 mg PRN Q6HRS PRN GA MILD PAIN / TEMP Last administered on 10/23/16 23:09; Start 10/23/16 at 23:00; Stop 10/26/16 at 10:04 ; Status DC Potassium Chloride/Dextrose/ Sod Cl 1,000 ml @ 80 mls/hr [id number] IV Last administered on 10/24/16 10:08; Start 10/24/16 at 09:30; Stop 10/24/16 at 13:58 ; Status DC Sodium Chloride 50 meq/Sodium Acetate 80 meq/ Potassium Chloride 50 meq/ Potassium Phosphate 18 mmol/ Magnesium Sulfate 10 meq/Calcium Gluconate 10 meq/ Multivitamins/ Minerals 10 ml/ Chromium/Copper/ Manganese/Seleni/ Zn 1 ml/Total Parenteral Nutrition/Amino Acids/Dextrose/ Fat Emuls... 1,920 ml @ 80 mls/hr TPN CONT IV Last administered on 10/24/16 22:10; Start 10/24/16 at 22:00; Stop 10/25/16 at 21:59; Status DC Sodium Chloride (Iv Sodium Chloride 0.45%) 1,000 ml @ 45 mls/hr [id number] IV Last administered on 10/24/16 14:00; Start 10/24/16 at 14:00; Stop 10/25/16 at 11:47; Status DC Albuterol/ Ipratropium (Duoneb) 3 ml RTQID NEB Last administered on 10/29/16 09:10; Start 10/25/16 at 12:00 Albuterol Sulfate (Ventolin Neb Soln) 2.5 mg PRN Q4HRS PRN NEB SOA; Start 10/25 at 12:00 Furosemide 40 mg 40 mg 1X ONCE IVP Last administered on 10/25/16 13:49; Start 10/25/16 at 11:45; Stop 10/25/16 at 11:53; Status DC Sodium Chloride 50 meq/Sodium Acetate 80 meq/ Potassium Chloride 50 meq/ Potassium Phosphate 18 mmol/ Magnesium Sulfate 10 meq/Calcium Gluconate 10 meq/ Multivitamins/ Minerals 10 ml/ Chromium/Copper/ Manganese/Seleni/ Zn 1 ml/Total Parenteral Nutrition/Amino Acids/Dextrose/ Fat Emuls... 1,920 ml @ 80 mls/hr TPN CONT IV Last administered on 10/25/16 21:06; Start 10/25/16 at 22:00; Stop 10/26/16 at 21:59; Status DC Albumin Human (Albuminar) 100 ml @ 100 mls/hr 1X ONCE IV Last administered on 10/25/16 18:19; Start 10/25/16 at 16:45; Stop 10/25/16 at 17:44; Status DC Furosemide 40 mg 40 mg 1X ONCE IVP Last administered on 10/25/16 18:24; Start 10/25/16 at 16:45; Stop 10/25/16 at 16:46; Status DC Piperacillin Sod/ Tazobactam Sod 3.375 gm/Sodium Chloride 50 ml @ 100 mls/hr Q8HRS IV Last administered on 10/29/16 05:38; Start 10/26/16 at 10:00 Linezolid (Zyvox Premix) 300 ml @ 300 mls/hr Q12HR IV Last administered on 09:04; Start 10/26/16 at 10:00 Bisacodyl 10 mg 10 mg 1X ONCE GA Last administered on 10/27/16 09:11; Start 10/26/16 at 10:00; Stop 10/26/16 at 10:02; Status DC Sodium Chloride (Iv Sodium Chloride 0.45%) 1,000 ml @ 45 mls/hr [id number] IV Last administered on 10/27/16 09:11; Start 10/26/16 at 10:00; Stop 10/28/16 at 10:07; Status DC Acetaminophen 650 mg 650 mg PRN Q6HRS PRN GA MILD PAIN / TEMP Last administered on 10/28/16 20:02; Start 10/26/16 at 10:00 Sodium Chloride 50 meq/Sodium Acetate 80 meq/ Potassium Chloride 50 meq/ Potassium Phosphate 18 mmol/ Magnesium Sulfate 10 meq/Calcium Gluconate 10 meq/ Multivitamins/ Minerals 10 ml/ Chromium/Copper/ Manganese/Seleni/ Zn 1 ml/Total Parenteral Nutrition/Amino Acids/Dextrose/ Fat Emuls... 1,920 ml @ 80 mls/hr TPN CONT IV Last administered on 10/26/16 22:02; Start 10/26/16 at 22:00; Stop 10/27/16 at 21:59; Status DC Micafungin Sodium/ Dextrose (Mycamine) 100 ml @ 100 mls/hr Q24H IV Last administered on 10/28/16 20:38; Start 10/26/16 at 21:00 Morphine Sulfate 2 mg 2 mg PRN Q4HRS PRN IV MODERATE PAIN Last administered on 10/28/16 01:36; Start 10/27/16 at 13:00 Sodium Chloride/ Sodium Acetate/ Potassium Chloride/ Potassium Phosphate/ Magnesium Sulfate/ Calcium Gluconate/ Multivitamins/ Minerals/Chromium/ Copper/ Manganese/ Seleni/Zn/Total Parenteral Nutrition/Amino Acids/Dextrose/ Fat Emulsion Intravenous (Sodium Chloride/ Potass... 1,920 ml @ 80 mls/hr TPN CONT IV Last administered on 10/27/16 22:51; Start 10/27/16 at 22:00; Stop at 21:59; Status DC Diphenhydramine HCl (Benadryl) 25 mg 1X ONCE IM Last administered on 14:08; Start 10/27/16 at 14:30; Stop 10/27/16 at 14:31; Status DC Furosemide (Lasix) 20 mg 1X ONCE IVP Last administered on 10/28/16 08:15; Start 10/28/16 at 08:00; Stop 10/28/16 at 08:01; Status DC Furosemide 40 mg 40 mg 1X ONCE IVP ; Start 10/28/16 at 10:00; Stop 10/28/16 at 10:01; Status DC Sodium Chloride 50 meq/Sodium Acetate 60 meq/ Sodium Phosphate 18 mmol/ Magnesium Sulfate 10 meq/ Calcium Gluconate 6 meq/ Multivitamins/ Minerals 10 ml / Chromium/Copper/ Manganese/Seleni/ Zn 1 ml/Total Parenteral Nutrition/Amino Acids/Dextrose/ Fat Emulsion Intravenous 1,080 ml @ 45 mls/hr TPN CONT IV Last administered on 10/28/16 22:54; Start 10/28/16 at 22:00; Stop 10/29/16 at 21:59 Dextrose/Sodium Chloride (Iv D5% - 1/2 NS) 1,000 ml @ 75 mls/hr [id number] IV ; Start 10/28/16 at 11:00; Stop 10/28/16 at 11:12; Status DC Furosemide (Lasix) 40 mg 1X ONCE IVP ; Start 10/28/16 at 11:00; Stop 10/28/16 at 11:01; Status DC Info 1 each PRN DAILY PRN MC SEE COMMENTS; Start 10/28/16 at 11:15 Active Scripts Active Hydrocodone-Apap 5-325 (Hydrocodone Bit/Acetaminophen) 1 Each Tablet 1 Tab PO PRN Q6HRS PRN Metoprolol Succinate ( Xl ) (Metoprolol Succinate) 25 Mg Tab.er.24h 25 Mg PO DAILY Reported Flomax (Tamsulosin Hcl) 0.4 Mg Cap.er.24h 1 Cap PO QHS Tramadol Hcl 100 Mg Tab.er.24h 100 Mg PO QID Levetiracetam 250 Mg Tablet 250 Mg PO BID Dulcolax (Bisacodyl) 10 Mg Supp.rect 10 Mg RC PRN DAILY PRN Maalox Advanced Suspension (Mag Hydrox/Al Hydrox/Simeth) 770 Ml Oral.susp 30 Ml PO Q2HR PRN Milk Of Magnesia (Magnesium Hydroxide) 400 Mg/5 Ml Oral.susp 30 Ml PO DAILY PRN Robitussin Cough-Chest Dm Liq (Guaifenesin/Dextromethorphan) 118 Ml Liquid 10 Ml PO Q4HRS PRN Trazodone Hcl 50 Mg Tablet 1 Tab PO QHS Tylenol (Acetaminophen) 325 Mg Tablet 650 Mg PO Q6HRS PRN Pramipexole Dihydrochloride (Pramipexole Di-Hcl) 0.5 Mg Tablet 0.5 Mg PO TID Simvastatin 20 Mg Tablet 1 Tab PO QHS Levothyroxine Sodium 100 Mcg Tablet 1 Tab PO DAILY Gabapentin 800 Mg Tablet 800 Mg PO QID Sinemet 25-100 Mg Tablet (Carbidopa/Levodopa) 1 Each Tablet 2 Tab PO TID Aspirin 81 Mg Tab.chew 1 Tab PO DAILY Vitals/I & O Vital Sign - Last 24 Hours 10/28/16 10/28/16 10/28/16 10/28/16 10:00 10:59 11:00 11:21 Pulse 101 95 Resp 24 21 23 B/P 141/66 155/75 Pulse Ox 83 100 100 100 O2 Delivery BiPAP/CPAP BiPAP/CPAP BiPAP/CPAP BiPAP/CPAP 10/28/16 10/28/16 10/28/16 10/28/16 12:00 12:00 12:00 13:00 Temp 101.2 101.2 Pulse 99 92 Resp 16 20 B/P 133/67 150/77 Pulse Ox 99 100 O2 Delivery BiPAP/CPAP Bi-pap BiPAP/CPAP O2 Flow Rate 6.0 10/28/16 10/28/16 10/28/16 10/28/16 14:00 14:00 15:00 16:00 Temp 101.9 101.9 Pulse 89 88 88 Resp 21 22 21 B/P 119/63 118/62 109/61 Pulse Ox 94 100 100 93 O2 Delivery BiPAP/CPAP BiPAP/CPAP BiPAP/CPAP BiPAP/CPAP 10/28/16 10/28/16 10/28/16 10/28/16 16:00 16:00 16:29 16:54 Resp 24 Pulse Ox 94 94 O2 Delivery Bi-pap BiPAP/CPAP BiPAP/CPAP O2 Flow Rate 6.0 10/28/16 10/28/16 10/28/16 10/28/16 17:00 17:48 18:00 18:23 Pulse 96 103 Resp 34 20 23 27 B/P 112/66 113/63 Pulse Ox 100 100 100 100 O2 Delivery BiPAP/CPAP BiPAP/CPAP BiPAP/CPAP BiPAP/CPAP 10/28/16 10/28/16 10/28/16 10/28/16 19:00 19:35 20:00 20:00 Pulse 96 Resp 22 B/P 131/66 Pulse Ox 100 94 O2 Delivery BiPAP/CPAP BiPAP/CPAP Bi-pap O2 Flow Rate 6.0 6.0 10/28/16 10/28/16 10/28/16 10/28/16 20:00 20:01 21:00 22:00 Temp 101.2 101.2 Pulse 91 90 80 Resp 22 23 22 B/P 129/63 134/65 113/66 Pulse Ox 100 100 100 100 O2 Delivery BiPAP/CPAP BiPAP/CPAP BiPAP/CPAP BiPAP/CPAP 10/28/16 10/28/16 10/29/16 10/29/16 23:00 23:20 00:00 00:00 Temp 100.3 100.3 Pulse 82 81 Resp 22 22 B/P 119/74 124/68 Pulse Ox 100 100 100 O2 Delivery BiPAP/CPAP BiPAP/CPAP BiPAP/CPAP O2 Flow Rate 6.0 10/29/16 10/29/16 10/29/16 10/29/16 00:00 01:00 01:30 02:00 Pulse 82 96 Resp 22 22 B/P 121/57 109/62 Pulse Ox 100 99 97 O2 Delivery Bi-pap BiPAP/CPAP BiPAP/CPAP BiPAP/CPAP O2 Flow Rate 6.0 10/29/16 10/29/16 10/29/16 10/29/16 03:00 04:00 04:00 04:00 Temp 99.7 99.7 Pulse 90 90 Resp 18 22 B/P 111/61 111/65 Pulse Ox 98 100 O2 Delivery Nasal Cannula BiPAP/CPAP Bi-pap O2 Flow Rate 6.0 6.0 6.0 10/29/16 10/29/16 10/29/16 10/29/16 04:02 05:00 05:39 06:00 Pulse 80 78 Resp 35 24 22 22 B/P 111/58 110/64 Pulse Ox 100 100 99 O2 Delivery Nasal Cannula BiPAP/CPAP BiPAP/CPAP BiPAP/CPAP O2 Flow Rate 6.0 10/29/16 08:30 Pulse Ox 100 O2 Delivery BiPAP/CPAP Intake and Output 10/28/16 10/28/16 10/29/16 15:00 23:00 07:00 Intake Total 905 ml 50 ml 1182 ml Output Total 1300 ml 600 ml 555 ml Balance -395 ml -550 ml 627 ml Problem List Problems Medical Problems: (1) SBO (small bowel obstruction) Status: Acute Assessment Respiratory failure. SBO, post-lap/adhesiolysis with prolonged ileus. Plan of Care: Continue current Tx, Mgmt Plan of Care Note Will stand by. RICHARD GUILLORY MD Oct 29, 2016 09:27
[2016-10-29] MEDS ORDERED: FUROSEMIDE 40 MG/4 ML VIAL IVP ONE (10:00)
--- NOTE | 2016-10-29 10:23 | PDOC ---
Renal-Progress Notes Subjective Notes Notes NONE History of Present Illness Hx of present illness NO CHANGE Vitals Vitals Vital Signs Date Time Temp Pulse Resp B/P Pulse Ox O2 Delivery O2 Flow Rate FiO2 10/29/16 08:30 100 BiPAP/CPAP 10/29/16 08:00 6.0 10/29/16 06:00 78 22 110/64 10/29/16 04:00 99.7 99.7 Weight Weight [ ] I.O. Intake and Output Intake and Output 10/29/16 07:00 Intake Total 2137 ml Output Total 2455 ml Balance -318 ml IV Total 2137 ml Output Urine Total 2455 ml Labs Labs Laboratory Tests Test 10/28/16 11:00 10/29/16 05:15 O2 Saturation 98% (92-99) Arterial Blood pH 7.35 (7.35-7.45) Arterial Blood pCO2 at Patient Temp 51mmHg (35-46) Arterial Blood pO2 at Patient Temp 135mmHg (65-108) Arterial Blood HCO3 27mmol/L (21-28) Arterial Blood Base Excess 1mmol/L (-3-3) FiO2 100 White Blood Count 6.7x10^3/uL (4.0-11.0) Red Blood Count 2.65x10^6/uL (4.30-5.70) Hemoglobin 8.1g/dL (13.0-17.5) Hematocrit 25.0% (39.0-53.0) Mean Corpuscular Volume 95fL (79-100) Mean Corpuscular Hemoglobin 31pg (25-35) Mean Corpuscular Hemoglobin Concent 33g/dL (31-37) Red Cell Distribution Width 17.1% (11.5-14.5) Platelet Count 230x10^3/uL (140-400) Neutrophils (%) (Auto) 71% (31-73) Lymphocytes (%) (Auto) 15% (24-48) Monocytes (%) (Auto) 11% (0-9) Eosinophils (%) (Auto) 3% (0-3) Basophils (%) (Auto) 0% (0-3) Neutrophils # (Auto) 4.8x10^3uL (1.8-7.7) Lymphocytes # (Auto) 1.0x10^3/uL (1.0-4.8) Monocytes # (Auto) 0.8x10^3/uL (0.0-1.1) Eosinophils # (Auto) 0.2x10^3/uL (0.0-0.7) Basophils # (Auto) 0.0x10^3/uL (0.0-0.2) Sodium Level 138mmol/L (136-145) Potassium Level 4.0mmol/L (3.5-5.1) Chloride Level 104mmol/L (98-107) Carbon Dioxide Level 28mmol/L (21-32) Anion Gap 6 (6-14) Blood Urea Nitrogen 25mg/dL (8-26) Creatinine 1.5mg/dL (0.7-1.3) Estimated GFR (Cockcroft-Gault) 44.5 BUN/Creatinine Ratio 17 (6-20) Glucose Level 157mg/dL (70-99) Calcium Level 8.0mg/dL (8.5-10.1) Phosphorus Level 3.3mg/dL (2.6-4.7) Magnesium Level 2.1mg/dL (1.8-2.4) Total Bilirubin 0.3mg/dL (0.2-1.0) Aspartate Amino Transf (AST/SGOT) 32U/L (15-37) Alanine Aminotransferase (ALT/SGPT) 37U/L (16-63) Alkaline Phosphatase 80U/L (46-116) Total Protein 5.9g/dL (6.4-8.2) Albumin 1.4g/dL (3.4-5.0) Albumin/Globulin Ratio 0.3 (1.0-1.7) Micro Micro Microbiology 10/26/16 Blood Culture - Preliminary, Resulted NO GROWTH AFTER 2 DAYS 10/26/16 Gram Stain - Final, Complete 10/13/16 Urine Culture - Final, Complete 10/13/16 Urine Culture Result 1 (MANDEEP) - Final, Complete Review of Systems Constitutional: yes: no symptom reported Physical Exam General Appearance: no apparent distress Skin: warm Respiratory: bilateral CTA Heart: S1S2, RRR Abdomen: soft, bowel sounds present Extremities: pulses present Neurology: alert Assessment Assessment IMP RESP FAILURE-HYPERVOLEMIA TAYLOR-IMPROVED WITH CR OF 1.5 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
--- NOTE | 2016-10-29 10:46 | PDOC ---
PROGRESS NOTES Subjective Subjective alert on bipap. receiving TPN without potassium . cxr noted. appreciate palliative care consult. lab reviewed. Objective Objective Vital Signs Date Time Temp Pulse Resp B/P Pulse Ox O2 Delivery O2 Flow Rate FiO2 10/29/16 08:30 100 BiPAP/CPAP 10/29/16 08:00 6.0 10/29/16 06:00 78 22 110/64 10/29/16 04:00 99.7 99.7 Intake and Output 10/29/16 07:00 Intake Total 2137 ml Output Total 2455 ml Balance -318 ml IV Total 2137 ml Output Urine Total 2455 ml Physical Exam Abdomen: Soft, Other (decreased breath sounds) Heart: Regular rate, Normal S1, Normal S2 Extremities: Other (trace edema legs) General: Alert HEENT: Atraumatic Lungs: Other (decreased breath sounds anteriorly) Neuro: Other (alert) Psych/Mental Status: Mood NL Skin: No rashes Assessment Assessment Problems Medical Problems::Small-bowel obstruction resolved exploratory laparotomy 10/13/16. lysis of adhesions. bowel viable. post op ileus. prolonged 2. Seizure disorder. 3. Parkinson's disease. 4. Hypothyroidism. 5. Peripheral neuropathy. 6. Hypertension. 7. Chronic kidney disease stage III. klebsiella uti treated suspected gout synovitis resolved peripheral edema critical illness myopathy hematemesis once resolved paroxysmal atrial fibrillation. not a good candidate for anticoagulants acute hypoxic respiratory failure atelactasis MRSA sputum LLL lung infiltrate anemia suspected mucus plug with JENNY lung collapse and LLL atelactasis with resulting hypoxia (1) SBO (small bowel obstruction) Status: Acute Plan Plan of Care iv zyvox and zosyn bipap TPN prognosis poor Comment Review of Relevant I have reviewed the following items [place] (where applicable) has been applied. Labs Laboratory Tests Test 10/28/16 07:26 10/28/16 08:00 10/28/16 11:00 10/29/16 05:15 O2 Saturation 82% (92-99) 98% (92-99) Arterial Blood pH 7.36 (7.35-7.45) 7.35 (7.35-7.45) Arterial Blood pCO2 at Patient Temp 49mmHg (35-46) 51mmHg (35-46) Arterial Blood pO2 at Patient Temp 50mmHg (65-108) 135mmHg (65-108) Arterial Blood HCO3 27mmol/L (21-28) 27mmol/L (21-28) Arterial Blood Base Excess 1mmol/L (-3-3) 1mmol/L (-3-3) FiO2 50% 100 White Blood Count 7.6x10^3/uL (4.0-11.0) 6.7x10^3/uL (4.0-11.0) Red Blood Count 3.01x10^6/uL (4.30-5.70) 2.65x10^6/uL (4.30-5.70) Hemoglobin 9.3g/dL (13.0-17.5) 8.1g/dL (13.0-17.5) Hematocrit 28.2% (39.0-53.0) 25.0% (39.0-53.0) Mean Corpuscular Volume 94fL (79-100) 95fL (79-100) Mean Corpuscular Hemoglobin 31pg (25-35) 31pg (25-35) Mean Corpuscular Hemoglobin Concent 33g/dL (31-37) 33g/dL (31-37) Red Cell Distribution Width 17.5% (11.5-14.5) 17.1% (11.5-14.5) Platelet Count 254x10^3/uL (140-400) 230x10^3/uL (140-400) Neutrophils (%) (Auto) 67% (31-73) 71% (31-73) Lymphocytes (%) (Auto) 18% (24-48) 15% (24-48) Monocytes (%) (Auto) 10% (0-9) 11% (0-9) Eosinophils (%) (Auto) 4% (0-3) 3% (0-3) Basophils (%) (Auto) 1% (0-3) 0% (0-3) Neutrophils # (Auto) 5.1x10^3uL (1.8-7.7) 4.8x10^3uL (1.8-7.7) Lymphocytes # (Auto) 1.4x10^3/uL (1.0-4.8) 1.0x10^3/uL (1.0-4.8) Monocytes # (Auto) 0.8x10^3/uL (0.0-1.1) 0.8x10^3/uL (0.0-1.1) Eosinophils # (Auto) 0.3x10^3/uL (0.0-0.7) 0.2x10^3/uL (0.0-0.7) Basophils # (Auto) 0.1x10^3/uL (0.0-0.2) 0.0x10^3/uL (0.0-0.2) Sodium Level 139mmol/L (136-145) 138mmol/L (136-145) Potassium Level 5.9mmol/L (3.5-5.1) 4.0mmol/L (3.5-5.1) Chloride Level 104mmol/L (98-107) 104mmol/L (98-107) Carbon Dioxide Level 27mmol/L (21-32) 28mmol/L (21-32) Anion Gap 8 (6-14) 6 (6-14) Blood Urea Nitrogen 28mg/dL (8-26) 25mg/dL (8-26) Creatinine 1.5mg/dL (0.7-1.3) 1.5mg/dL (0.7-1.3) Estimated GFR (Cockcroft-Gault) 44.5 44.5 Glucose Level 128mg/dL (70-99) 157mg/dL (70-99) Lactic Acid Level 1.0mmol/L (0.4-2.0) Calcium Level 8.0mg/dL (8.5-10.1) 8.0mg/dL (8.5-10.1) Phosphorus Level 3.8mg/dL (2.6-4.7) 3.3mg/dL (2.6-4.7) Troponin I Quantitative 0.047ng/mL (0.000-0.055) BUN/Creatinine Ratio 17 (6-20) Magnesium Level 2.1mg/dL (1.8-2.4) Total Bilirubin 0.3mg/dL (0.2-1.0) Aspartate Amino Transf (AST/SGOT) 32U/L (15-37) Alanine Aminotransferase (ALT/SGPT) 37U/L (16-63) Alkaline Phosphatase 80U/L (46-116) Total Protein 5.9g/dL (6.4-8.2) Albumin 1.4g/dL (3.4-5.0) Albumin/Globulin Ratio 0.3 (1.0-1.7) Laboratory Tests Test 10/28/16 11:00 10/29/16 05:15 O2 Saturation 98% (92-99) Arterial Blood pH 7.35 (7.35-7.45) Arterial Blood pCO2 at Patient Temp 51mmHg (35-46) Arterial Blood pO2 at Patient Temp 135mmHg (65-108) Arterial Blood HCO3 27mmol/L (21-28) Arterial Blood Base Excess 1mmol/L (-3-3) FiO2 100 White Blood Count 6.7x10^3/uL (4.0-11.0) Red Blood Count 2.65x10^6/uL (4.30-5.70) Hemoglobin 8.1g/dL (13.0-17.5) Hematocrit 25.0% (39.0-53.0) Mean Corpuscular Volume 95fL (79-100) Mean Corpuscular Hemoglobin 31pg (25-35) Mean Corpuscular Hemoglobin Concent 33g/dL (31-37) Red Cell Distribution Width 17.1% (11.5-14.5) Platelet Count 230x10^3/uL (140-400) Neutrophils (%) (Auto) 71% (31-73) Lymphocytes (%) (Auto) 15% (24-48) Monocytes (%) (Auto) 11% (0-9) Eosinophils (%) (Auto) 3% (0-3) Basophils (%) (Auto) 0% (0-3) Neutrophils # (Auto) 4.8x10^3uL (1.8-7.7) Lymphocytes # (Auto) 1.0x10^3/uL (1.0-4.8) Monocytes # (Auto) 0.8x10^3/uL (0.0-1.1) Eosinophils # (Auto) 0.2x10^3/uL (0.0-0.7) Basophils # (Auto) 0.0x10^3/uL (0.0-0.2) Sodium Level 138mmol/L (136-145) Potassium Level 4.0mmol/L (3.5-5.1) Chloride Level 104mmol/L (98-107) Carbon Dioxide Level 28mmol/L (21-32) Anion Gap 6 (6-14) Blood Urea Nitrogen 25mg/dL (8-26) Creatinine 1.5mg/dL (0.7-1.3) Estimated GFR (Cockcroft-Gault) 44.5 BUN/Creatinine Ratio 17 (6-20) Glucose Level 157mg/dL (70-99) Calcium Level 8.0mg/dL (8.5-10.1) Phosphorus Level 3.3mg/dL (2.6-4.7) Magnesium Level 2.1mg/dL (1.8-2.4) Total Bilirubin 0.3mg/dL (0.2-1.0) Aspartate Amino Transf (AST/SGOT) 32U/L (15-37) Alanine Aminotransferase (ALT/SGPT) 37U/L (16-63) Alkaline Phosphatase 80U/L (46-116) Total Protein 5.9g/dL (6.4-8.2) Albumin 1.4g/dL (3.4-5.0) Albumin/Globulin Ratio 0.3 (1.0-1.7) Microbiology 10/26/16 Blood Culture - Preliminary, Resulted NO GROWTH AFTER 2 DAYS 10/26/16 Gram Stain - Final, Complete 10/13/16 Urine Culture - Final, Complete 10/13/16 Urine Culture Result 1 (MANDEEP) - Final, Complete Medications Current Medications Fentanyl Citrate 50 mcg 50 mcg PRN Q15MIN PRN IV PAIN GREATER THAN 3/10 Last administered on 09/30/16at 19:35; Start 09/30/16 at 17:30; Stop 10/01/16 at 04 :24; Status DC Lactated Ringer's (Iv Lactated Ringers) 1,000 ml @ 100 mls/hr Q10H IV Last administered on 09/30/16at 19:35; Start 09/30/16 at 17:28; Stop 10/01/16 at 03 :27; Status DC Ondansetron HCl (Zofran) 4 mg 1X ONCE IV Last administered on 09/30/16at 17:44 ; Start 09/30/16 at 17:30; Stop 09/30/16 at 17:32; Status DC Fentanyl Citrate (Fentanyl 2ml Vial) 50 mcg 1X ONCE IV ; Start 09/30/16 at 19: 15; Stop 10/01/16 at 04:24; Status DC Ondansetron HCl (Zofran) 4 mg PRN Q8HRS PRN IV NAUSEA/VOMITING Last administered on 09/30/16at 22:07; Start 09/30/16 at 19:15; Stop 10/01/16 at 19 :14; Status DC Fentanyl Citrate 50 mcg 50 mcg PRN Q2HR PRN IV PAIN Last administered on at 16:54; Start 09/30/16 at 19:15; Stop 10/01/16 at 19:14; Status DC Sodium Chloride 1,000 ml @ 100 mls/hr Q10H IV ; Start 09/30/16 at 19:30; Stop 10/01/16 at 04:24; Status DC Potassium Chloride/Dextrose/ Sod Cl (KCl 20 Meq In D5W-1/2 NS) 1,000 ml @ 125 mls/hr Q8H IV Last administered on 10/04/16at 06:02; Start 09/30/16 at 20:00; Stop 10/04/16 at 10:21; Status DC Enoxaparin Sodium 40 mg 40 mg Q24H SQ Last administered on 10/13/16 08:14; Start 10/01/16 at 09:00; Stop 10/13/16 at 08:36; Status DC Levetiracetam/ Sodium Chloride (Keppra/Iv Sodium Chloride 0.9% 100ml) 105 ml @ 400 mls/hr Q12HR IV Last administered on 10/05/16 09:30; Start 09/30/16 at 21: 00; Stop 10/05/16 at 10:24; Status DC Morphine Sulfate 2 mg PRN Q4HRS PRN IV SEVERE PAIN Last administered on 10:13; Start 09/30/16 at 19:30; Stop 10/05/16 at 10:24; Status DC Acetaminophen (Tylenol) 650 mg PRN Q6HRS PRN MA MILD PAIN / TEMP; Start at 19:30; Stop 10/05/16 at 10:24; Status DC Ondansetron HCl (Zofran) 4 mg PRN Q6HRS PRN IV NAUSEA/VOMITING Last administered on 10/07/16 08:28; Start 09/30/16 at 19:30; Stop 10/09/16 at 12:08 ; Status DC Benzocaine (Hurricaine One) 1 spray STK-MED ONCE .ROUTE ; Start 09/30/16 at 19: 51; Stop 09/30/16 at 19:52; Status DC Morphine Sulfate 4 mg PRN Q4HRS PRN IV PAIN Last administered on 10/05/16 08:08 ; Start 10/01/16 at 20:00; Stop 10/05/16 at 10:24; Status DC Clonidine HCl 1 patch 1 patch WEEKLY TD Last administered on 10/03/16at 12:30; Start 10/03/16 at 10:00; Stop 10/05/16 at 10:24; Status DC Piperacillin Sod/ Tazobactam Sod/ Sodium Chloride (Zosyn/Iv Sodium Chloride 0.9 % 50ml) 50 ml @ 100 mls/hr Q6HRS IV Last administered on 10/09/16 06:26; Start 10/04/16 at 11:00; Stop 10/09/16 at 10:55; Status DC Vancomycin HCl 1 each 1 each PRN DAILY PRN MC SEE COMMENTS Last administered on 10/07/16 11:11; Start 10/04/16 at 10:15; Stop 10/07/16 at 11:28; Status DC Vancomycin HCl/ Sodium Chloride (Iv Sodium Chloride 0.9% 250ml) 250 ml @ 250 mls/hr Q24H IV ; Start 10/04/16 at 10:15; Status UNV Labetalol HCl (Normodyne) 20 mg PRN Q6HRS PRN IVP HYPERTENSION, SEE COMMENTS; Start 10/04/16 at 10:15; Stop 10/05/16 at 10:24; Status DC Hydralazine HCl 10 mg 10 mg PRN Q6HRS PRN IVP ELEVATED BP, SEE COMMENTS Last administered on 10/06/16 19:17; Start 10/04/16 at 10:15; Stop 10/12/16 at 10:40 ; Status DC Amino Acids/ Glycerin/ Electrolytes 1,000 ml @ 40 mls/hr Q24H IV Last administered on 1/2/17at 09:59; Start 10/04/16 at 10:15; Stop 10/07/16 at 09:06 ; Status DC Vancomycin HCl 2 gm/Sodium Chloride 500 ml @ 250 mls/hr 1X ONCE IV Last administered on 10/04/16at 11:26; Start 10/04/16 at 10:45; Stop 10/04/16 at 12 :44; Status DC Vancomycin HCl/ Sodium Chloride (Iv Sodium Chloride 0.9% 500ml Bag) 500 ml @ 250 mls/hr Q24H IV Last administered on 10/06/16 11:47; Start 10/05/16 at 12:00 ; Stop 10/07/16 at 11:28; Status DC Vancomycin HCl 1 each 1X ONCE MC Last administered on 10/06/16 11:30; Start at 11:30; Stop 10/06/16 at 11:31; Status DC Aspirin (Children'S Aspirin) 81 mg [id number] PO Last administered on 10/13/16 08:15; Start 10/05/16 at 11:00; Stop 10/13/16 at 08:29; Status DC Gabapentin (Neurontin) 600 mg QID PO Last administered on 10/13/16 08:14; Start 10/05/16 at 13:00; Stop 10/14/16 at 08:47; Status DC Levetiracetam (Keppra) 250 mg BID PO Last administered on 10/13/16 08:17; Start 10/05/16 at 11:00; Stop 10/14/16 at 08:47; Status DC Levothyroxine Sodium (Synthroid) 100 mcg [id number] PO Last administered on 05:08; Start 10/05/16 at 10:30; Stop 10/14/16 at 08:48; Status DC Metoprolol Succinate (Toprol Xl) 25 mg DAILY PO Last administered on 10/13/16 08:16; Start 10/05/16 at 11:00; Stop 10/14/16 at 08:47; Status DC Pramipexole Dihydrochloride (miraPEX) 0.5 mg [id number] PO Last administered on 10/13 08:15; Start 10/05/16 at 11:00; Stop 10/14/16 at 08:48; Status DC Simvastatin (Zocor) 20 mg HS PO Last administered on 10/12/16 21:07; Start 10/05 at 21:00; Stop 10/14/16 at 08:48; Status DC Carbidopa/Levodopa (Sinemet Cr) 1 tab.sa TID PO Last administered on 10/13/16 08:16; Start 10/05/16 at 11:00; Stop 10/14/16 at 08:48; Status DC Tamsulosin HCl (Flomax) 0.4 mg QHS PO Last administered on 10/12/16 21:07; Start 10/05/16 at 21:00; Stop 10/14/16 at 08:48; Status DC Tramadol HCl (Ultram) 50 mg QID PO Last administered on 10/13/16 08:17; Start 10/05/16 at 13:00; Stop 10/14/16 at 08:48; Status DC Acetaminophen (Tylenol) 650 mg PRN Q4HRS PRN PO MILD PAIN / TEMP Last administered on 10/13/16 00:17; Start 10/05/16 at 10:15; Stop 10/14/16 at 08:48; Status DC Prednisone (Prednisone) 20 mg 1X ONCE PO Last administered on 10/06/16 11:01; Start 10/06/16 at 10:30; Stop 10/06/16 at 10:31; Status DC Prednisone (Prednisone) 10 mg [id number] PO Last administered on 10/13/16 08:15; Start 10/07/16 at 08:00; Stop 10/13/16 at 08:29; Status DC Al Hydroxide/Mg Hydroxide (Mylanta Plus Xs) 30 ml PRN Q4HRS PRN PO HEARTBURN / GAS Last administered on 10/12/16 21:07; Start 10/07/16 at 08:45; Stop 10/14/16 at 08:48; Status DC Pantoprazole Sodium (Protonix) 40 mg DAILYAC PO Last administered on 10/13/16 05:08; Start 10/07/16 at 10:00; Stop 10/13/16 at 06:45; Status DC Furosemide 40 mg 40 mg DAILY PO Last administered on 10/08/16 08:42; Start 10/07 at 10:00; Stop 10/08/16 at 08:56; Status DC Sodium Chloride (Iv Sodium Chloride 0.45%) 1,000 ml @ 60 mls/hr CONT PRN IV . ; Start 10/08/16 at 09:00; Stop 10/08/16 at 16:06; Status DC Bisacodyl 10 mg 10 mg 1X ONCE MA Last administered on 10/08/16 10:11; Start at 09:30; Stop 10/08/16 at 09:31; Status DC Sodium Chloride (Iv Sodium Chloride 0.45%) 1,000 ml @ 60 mls/hr [id number] IV Last administered on 10/09/16 02:52; Start 10/08/16 at 10:15; Stop 10/09/16 at 12: 00; Status DC Cefpodoxime Proxetil (Vantin) 200 mg BID PO ; Start 10/09/16 at 11:00; Stop at 12:08; Status DC Cefpodoxime Proxetil (Vantin) 100 mg BID PO Last administered on 10/13/16 08:16 ; Start 10/09/16 at 21:00; Stop 10/13/16 at 08:29; Status DC Ondansetron HCl (Zofran) 4 mg STK-MED ONCE .ROUTE Last administered on 01:24; Start 10/13/16 at 01:19; Stop 10/13/16 at 01:20; Status DC Ondansetron HCl (Zofran) 4 mg PRN Q6HRS PRN IV NAUSEA/VOMITING Last administered on 10/27/16 00:39; Start 10/13/16 at 02:00 Pantoprazole Sodium 40 mg 40 mg DAILYAC IVP Last administered on 10/29/16 08: 01; Start 10/13/16 at 07:30 Dextrose/Sodium Chloride (Iv D5% - NS) 1,000 ml @ 60 mls/hr [id number] IV Last administered on 10/13/16 09:25; Start 10/13/16 at 08:30; Stop 10/13/16 at 11:01; Status DC Sodium Polystyrene Sulfonate 15 gm 15 gm 1X ONCE PO Last administered on 09:26; Start 10/13/16 at 08:30; Stop 10/13/16 at 08:31; Status DC Piperacillin Sod/ Tazobactam Sod 3.375 gm/Sodium Chloride 50 ml @ 100 mls/hr Q6HRS IV Last administered on 10/19/16t 12:42; Start 10/13/16 at 09:00; Stop at 15:06; Status DC Dextrose/Sodium Chloride (Iv D5% - 1/2 NS) 1,000 ml @ 50 mls/hr Q20H IV Last administered on 10/17/16 00:16; Start 10/13/16 at 11:00; Stop 10/17/16 at 12:23 ; Status DC Ondansetron HCl (Zofran) 4 mg PRN Q6HRS PRN IV Nausea 1ST CHOICE; Start at 12:30; Stop 10/14/16 at 11:07; Status DC Fentanyl Citrate (Fentanyl 2ml Vial) 25 mcg PRN Q5MIN PRN IV MILD PAIN; Start 10/13/16 at 12:30; Stop 10/14/16 at 11:04; Status DC Fentanyl Citrate (Fentanyl 2ml Vial) 50 mcg PRN Q5MIN PRN IV MODERATE PAIN; Start 10/13/16 at 12:30; Stop 10/14/16 at 11:04; Status DC Morphine Sulfate 1 mg 1 mg PRN Q10MIN PRN IV SEVERE PAIN; Start 10/13/16 at 12: 30; Stop 10/14/16 at 11:00; Status DC Lactated Ringer's (Iv Lactated Ringers) 1,000 ml @ 0 mls/hr Q0M IV ; Start 10/13 at 12:17; Stop 10/14/16 at 00:16; Status DC Lidocaine HCl 2 ml 1X PRN PRN ID IV START; Start 10/13/16 at 12:30; Stop at 16:03; Status DC Hydromorphone HCl (Dilaudid) 0.5 mg PRN Q10MIN PRN IV SEV PAIN,Second choice; Start 10/13/16 at 12:30; Stop 10/14/16 at 11:04; Status DC Prochlorperazine Edisylate (Compazine) 5 mg PACU PRN PRN IV NAUSEA; Start at 12:30; Stop 10/14/16 at 11:00; Status DC Fentanyl Citrate (Fentanyl 2ml Vial) 50 mcg PRN Q5MIN PRN IV Acute Pain Last administered on 10/14/16t 10:04; Start 10/13/16 at 13:00; Stop 10/14/16 at 11:04 ; Status DC Morphine Sulfate 4 mg PRN Q10MIN PRN IV Moderate Pain; Start 10/13/16 at 13:00; Stop 10/14/16 at 11:00; Status DC Hydromorphone HCl (Dilaudid) 0.4 mg PRN Q10MIN PRN IV Moderate to severe pain; Start 10/13/16 at 13:00; Stop 10/14/16 at 11:04; Status DC Meperidine HCl (Demerol) 12.5 mg PRN Q5MIN PRN IV SHIVERING; Start 10/13/16 at 13:00; Stop 10/14/16 at 11:00; Status DC Prochlorperazine Edisylate (Compazine) 5 mg PRN Q6HRS PRN IV Nausea/Vomiting, 1st Choice; Start 10/13/16 at 13:00; Stop 10/14/16 at 11:00; Status DC Diphenhydramine HCl (Benadryl) 12.5 mg PRN Q2HR PRN IV ITCHING; Start 10/13/16 at 13:00; Stop 10/14/16 at 11:00; Status DC Midazolam HCl (Versed) 2 mg PRN 1X PRN IV PRIOR TO PROCEDURE; Start 10/13/16 at 13:00; Stop 10/14/16 at 11:07; Status DC Midazolam HCl (Versed) 1 mg PRN 1X PRN IV PRIOR TO PROCEDURE; Start 10/13/16 at 13:00; Stop 10/14/16 at 11:07; Status DC Fentanyl Citrate (Fentanyl 2ml Vial) 25 mcg PRN Q5MIN PRN IV X 2 DOSES FOR PAIN ; Start 10/13/16 at 13:00; Stop 10/14/16 at 11:04; Status DC Fentanyl Citrate 50 mcg 50 mcg PRN Q5MIN PRN IV X 2 DOSES FOR PAIN; Start at 13:00; Stop 10/14/16 at 11:04; Status DC Lactated Ringer's (Iv Lactated Ringers) 1,000 ml @ 125 mls/hr Q8H IV Last administered on 10/13/16 13:30; Start 10/13/16 at 12:48; Stop 10/14/16 at 00:47; Status DC Lidocaine HCl 2 ml 1X PRN PRN ID IV START; Start 10/13/16 at 13:00; Stop at 16:03; Status DC Fentanyl Citrate (Fentanyl 2ml Vial) 25 mcg PRN Q2HR PRN IV PAIN MOD TO SEV; Start 10/13/16 at 20:30; Stop 10/14/16 at 14:15; Status DC Fentanyl Citrate (Fentanyl 2ml Vial) 50 mcg PRN Q2HR PRN IV PAIN MOD TO SEV Last administered on 10/14/16 12:02; Start 10/13/16 at 20:30; Stop 10/14/16 at 14:15; Status DC Enoxaparin Sodium (Lovenox 40mg Syringe) 40 mg Q24H SQ Last administered on 09:18; Start 10/14/16 at 09:00; Stop 10/27/16 at 06:34; Status DC Fentanyl Citrate 100 mcg 100 mcg STK-MED ONCE .ROUTE ; Start 10/13/16 at 13:27; Stop 10/14/16 at 07:31; Status DC Propofol (Diprivan) 20 ml @ As Directed STK-MED ONCE IV ; Start 10/13/16 at 13:27 ; Stop 10/14/16 at 07:31; Status DC Rocuronium [place] (Zemuron) 50 mg STK-MED ONCE .ROUTE ; Start 10/13/16 at 13:27 ; Stop 10/14/16 at 07:31; Status DC Lidocaine HCl 100 mg STK-MED ONCE .ROUTE ; Start 10/13/16 at 13:27; Stop at 07:31; Status DC Fentanyl Citrate (Fentanyl 2ml Vial) 100 mcg STK-MED ONCE .ROUTE ; Start at 13:27; Stop 10/14/16 at 07:31; Status DC Ephedrine Sulfate (Akovaz) 50 mg STK-MED ONCE .ROUTE ; Start 10/13/16 at 14:00; Stop 10/14/16 at 07:31; Status DC Phenylephrine HCl 1 mg STK-MED ONCE IV ; Start 10/13/16 at 14:25; Stop 10/14/16 at 07:31; Status DC Desflurane (Suprane) 60 ml STK-MED ONCE IH ; Start 10/13/16 at 14:25; Stop at 07:31; Status DC Dexamethasone Sodium Phosphate (Decadron) 20 mg STK-MED ONCE .ROUTE ; Start 10/13 at 14:25; Stop 10/14/16 at 07:31; Status DC Ondansetron HCl (Zofran) 4 mg STK-MED ONCE .ROUTE ; Start 10/13/16 at 14:25; Stop 10/14/16 at 07:31; Status DC Famotidine (Pepcid) 20 mg STK-MED ONCE .ROUTE ; Start 10/13/16 at 14:25; Stop 07/21 at 07:31; Status DC Rocuronium [place] (Zemuron) 50 mg STK-MED ONCE .ROUTE ; Start 10/13/16 at 16:19 ; Stop 10/14/16 at 07:31; Status DC Fentanyl Citrate (Fentanyl 2ml Vial) 100 mcg STK-MED ONCE .ROUTE ; Start at 16:21; Stop 10/14/16 at 07:31; Status DC Desflurane (Suprane) 90 ml STK-MED ONCE IH ; Start 10/13/16 at 16:53; Stop at 07:31; Status DC Glycopyrrolate (Robinul) 1 mg STK-MED ONCE .ROUTE ; Start 10/13/16 at 17:00; Stop 10/14/16 at 07:31; Status DC Neostigmine Methylsulfate 5 mg STK-MED ONCE .ROUTE ; Start 10/13/16 at 17:00; Stop 10/14/16 at 07:31; Status DC Phenylephrine HCl 1 mg STK-MED ONCE IV ; Start 10/13/16 at 18:14; Stop 10/14/16 at 07:31; Status DC Fentanyl Citrate (Fentanyl 2ml Vial) 100 mcg STK-MED ONCE .ROUTE ; Start at 18:20; Stop 10/14/16 at 07:31; Status DC Fentanyl Citrate 100 mcg 100 mcg STK-MED ONCE .ROUTE ; Start 10/13/16 at 19:17; Stop 10/14/16 at 07:31; Status DC Levetiracetam 500 mg/Sodium Chloride 105 ml @ 400 mls/hr Q12HR IV Last administered on 10/29/16 08:09; Start 10/14/16 at 09:00 Amino Acids/ Glycerin/ Electrolytes (Procalamine) 1,000 ml @ 80 mls/hr [id number] IV Last administered on 10/16/16 09:16; Start 10/14/16 at 11:15; Stop at 21:59; Status DC Morphine Sulfate 2 mg PRN Q4HRS PRN IV MODERATE PAIN Last administered on 00:57; Start 10/14/16 at 14:15; Stop 10/27/16 at 12:52; Status DC Morphine Sulfate 4 mg PRN Q4HRS PRN IV SEVERE PAIN Last administered on 08:01; Start 10/14/16 at 14:30 Info 1 each 1 each PRN DAILY PRN MC SEE COMMENTS Last administered on 10:32; Start 10/16/16 at 11:30; Stop 10/28/16 at 10:48; Status DC Sodium Chloride/ Potassium Chloride/ Potassium Phosphate/ Magnesium Sulfate/ Calcium Gluconate/ Multivitamins/ Minerals/Chromium/ Copper/Manganese/ Seleni/Zn /Total Parenteral Nutrition/Amino Acids/Dextrose/ Fat Emulsion Intravenous ( Sodium Chloride/ Potassium Phospha... 1,512 ml @ 63 mls/hr TPN CONT IV ; Start 10/16/16 at 22:00; Stop 10/17/16 at 12:50; Status DC Lidocaine/Sodium Bicarbonate 20 ml 20 ml STK-MED ONCE IJ ; Start 10/17/16 at 08: 20; Stop 10/17/16 at 08:21; Status DC Heparin Sodium/ Sodium Chloride 500 ml @ As Directed STK-MED ONCE .ROUTE ; Start 10/17/16 at 08:20; Stop 10/17/16 at 08:21; Status DC Lidocaine/Sodium Bicarbonate (Buffered Lidocaine 1%) 3 ml 1X ONCE IJ Last administered on 10/17/16 08:30; Start 10/17/16 at 08:30; Stop 10/17/16 at 08:31 ; Status DC Heparin Sodium/ Sodium Chloride 60 unit 1X ONCE IV Last administered on 08:30; Start 10/17/16 at 08:30; Stop 10/17/16 at 08:31; Status DC Iohexol (Omnipaque 300 Mg/ml) 50 ml STK-MED ONCE .ROUTE ; Start 10/17/16 at 09: 02; Stop 10/17/16 at 09:03; Status DC Iohexol (Omnipaque 300 Mg/ml) 43 ml 1X ONCE IART Last administered on 08:45; Start 10/17/16 at 09:30; Stop 10/17/16 at 09:33; Status DC Info (Do NOT chart on this entry -- for MONITORING) 1 each PRN DAILY PRN MC SEE COMMENTS; Start 10/17/16 at 09:45; Stop 10/19/16 at 09:44; Status DC Clonidine HCl (Catapres Tts-2) 1 patch WEEKLY TD Last administered on 09:12; Start 10/17/16 at 11:00; Stop 10/26/16 at 09:54; Status DC Labetalol HCl 20 mg 20 mg PRN Q6HRS PRN IVP HYPERTENSION, SEE COMMENTS Last administered on 10/26/16 17:55; Start 10/17/16 at 10:30 Sodium Chloride 1,000 ml @ 60 mls/hr [id number] IV Last administered on 06:32; Start 10/17/16 at 12:30; Stop 10/19/16 at 10:06; Status DC Sodium Chloride 90 meq/Potassium Chloride 50 meq/ Potassium Phosphate 13.6 mmol/ Magnesium Sulfate 10 meq/ Calcium Gluconate 10 meq/ Multivitamins/ Minerals 10 ml/ Chromium/Copper/ Manganese/Seleni/ Zn 1 ml/Total Parenteral Nutrition/Amino Acids/Dextrose/ Fat Emulsion Intravenous 1,512 ml @ 63 mls/hr TPN CONT IV Last administered on 10/17/16 21:09; Start 10/17/16 at 22:00; Stop 10/18/16 at 21:59; Status DC Sodium Chloride/ Potassium Chloride/ Potassium Phosphate/ Magnesium Sulfate/ Calcium Gluconate/ Multivitamins/ Minerals/Chromium/ Copper/Manganese/ Seleni/Zn /Total Parenteral Nutrition/Amino Acids/Dextrose/ Fat Emulsion Intravenous ( Sodium Chloride/ Potassium Phospha... 1,512 ml @ 63 mls/hr TPN CONT IV Last administered on 10/18/16 21:24; Start 10/18/16 at 22:00; Stop 10/19/16 at 21:59 ; Status DC Furosemide 20 mg 20 mg 1X ONCE IVP Last administered on 10/19/16 11:01; Start 10/19/16 at 10:30; Stop 10/19/16 at 10:31; Status DC Sodium Chloride 90 meq/Sodium Acetate 40 meq/ Potassium Chloride 50 meq/ Potassium Phosphate 13.6 mmol/Magnesium Sulfate 10 meq/ Calcium Gluconate 10 meq / Multivitamins/ Minerals 10 ml/ Chromium/Copper/ Manganese/Seleni/ Zn 1 ml/ Total Parenteral Nutrition/Amino Acids/Dextro... 1,920 ml @ 80 mls/hr TPN CONT IV Last administered on 10/19/16 22:29; Start 10/19/16 at 22:00; Stop at 21:59; Status DC Sodium Chloride 1,000 ml @ 45 mls/hr [id number] IV Last administered on 22:24; Start 10/20/16 at 09:00; Stop 10/21/16 at 09:26; Status DC Magnesium Sulfate/ Dextrose 50 ml @ 25 mls/hr PRN DAILY PRN IV for Mag < 1.7 on am labs; Start 10/20/16 at 13:15 Sodium Chloride/ Sodium Acetate/ Potassium Chloride/ Potassium Phosphate/ Magnesium Sulfate/ Calcium Gluconate/ Multivitamins/ Minerals/Chromium/ Copper/ Manganese/ Seleni/Zn/Total Parenteral Nutrition/Amino Acids/Dextrose/ Fat Emulsion Intravenous (Sodium Chloride/ Potass... 1,920 ml @ 80 mls/hr TPN CONT IV Last administered on 10/20/16 22:23; Start 10/20/16 at 22:00; Stop at 21:59; Status DC Acetaminophen/ Hydrocodone Bitart 1 tab 1 tab PRN Q4HRS PRN PO PAIN Last administered on 10/21/16 23:51; Start 10/21/16 at 09:30; Stop 10/22/16 at 10:39 ; Status DC Sodium Chloride/ Sodium Acetate/ Potassium Chloride/ Potassium Phosphate/ Magnesium Sulfate/ Calcium Gluconate/ Multivitamins/ Minerals/Chromium/ Copper/ Manganese/ Seleni/Zn/Total Parenteral Nutrition/Amino Acids/Dextrose/ Fat Emulsion Intravenous (Sodium Chloride/ Potass... 1,920 ml @ 80 mls/hr TPN CONT IV Last administered on 10/21/16 22:22; Start 10/21/16 at 22:00; Stop at 21:59; Status DC Metoclopramide HCl (Reglan) 10 mg 1X ONCE IV Last administered on 10/22/16 01 :56; Start 10/22/16 at 02:00; Stop 10/22/16 at 02:01; Status DC Lorazepam (Ativan) 1 mg 1X ONCE IV Last administered on 10/22/16 02:35; Start 10/22/16 at 02:30; Stop 10/22/16 at 02:31; Status DC Morphine Sulfate 2 mg PRN Q1HR PRN IV CHEST PAIN Last administered on 04:02; Start 10/22/16 at 02:30 Famotidine (Pepcid) 20 mg 1X ONCE IVP Last administered on 10/22/16 02:35; Start 10/22/16 at 02:30; Stop 10/22/16 at 02:31; Status DC Hydralazine HCl (Apresoline) 10 mg PRN Q6HRS PRN IVP ELEVATED BP, SEE COMMENTS ; Start 10/22/16 at 10:45 Iohexol (Omnipaque 300 Mg/ml) 60 ml 1X ONCE PO Last administered on 10/22/16 11:43; Start 10/22/16 at 11:00; Stop 10/22/16 at 11:01; Status DC Iohexol (Omnipaque 300 Mg/ml) 60 ml 1X ONCE IV Last administered on 10/22/16 11:19; Start 10/22/16 at 11:00; Stop 10/22/16 at 11:01; Status DC Info 1 each 1 each PRN DAILY PRN MC SEE COMMENTS; Start 10/22/16 at 11:00; Stop 10/24/16 at 10:59; Status DC Sodium Chloride 50 meq/Sodium Acetate 80 meq/ Potassium Chloride 50 meq/ Potassium Phosphate 18 mmol/ Magnesium Sulfate 10 meq/Calcium Gluconate 10 meq/ Multivitamins/ Minerals 10 ml/ Chromium/Copper/ Manganese/Seleni/ Zn 1 ml/Total Parenteral Nutrition/Amino Acids/Dextrose/ Fat Emuls... 1,920 ml @ 80 mls/hr TPN CONT IV Last administered on 10/22/16 21:46; Start 10/22/16 at 22:00; Stop 10/23/16 at 21:59; Status DC Levothyroxine Sodium/Sodium Chloride (Synthroid/Iv Sodium Chloride 0.9% 50ml) 5 ml @ 100 mls/hr DAILY IVP Last administered on 10/29/16 09:04; Start 10/23/16 at 14:00 Furosemide (Lasix) 20 mg 1X ONCE IVP Last administered on 10/23/16 12:45; Start 10/23/16 at 12:30; Stop 10/23/16 at 12:31; Status DC Alteplase, Recombinant 2 mg 2 mg 1X ONCE INT CAT Last administered on 12:45; Start 10/23/16 at 12:30; Stop 10/23/16 at 12:31; Status DC Sodium Chloride/ Sodium Acetate/ Potassium Chloride/ Potassium Phosphate/ Magnesium Sulfate/ Calcium Gluconate/ Multivitamins/ Minerals/Chromium/ Copper/ Manganese/ Seleni/Zn/Total Parenteral Nutrition/Amino Acids/Dextrose/ Fat Emulsion Intravenous (Sodium Chloride/ Potass... 1,920 ml @ 80 mls/hr TPN CONT IV Last administered on 10/23/16 21:37; Start 10/23/16 at 22:00; Stop at 21:59; Status DC Acetaminophen 650 mg 650 mg PRN Q6HRS PRN MA MILD PAIN / TEMP Last administered on 10/23/16 23:09; Start 10/23/16 at 23:00; Stop 10/26/16 at 10:04 ; Status DC Potassium Chloride/Dextrose/ Sod Cl 1,000 ml @ 80 mls/hr [id number] IV Last administered on 10/24/16 10:08; Start 10/24/16 at 09:30; Stop 10/24/16 at 13:58 ; Status DC Sodium Chloride 50 meq/Sodium Acetate 80 meq/ Potassium Chloride 50 meq/ Potassium Phosphate 18 mmol/ Magnesium Sulfate 10 meq/Calcium Gluconate 10 meq/ Multivitamins/ Minerals 10 ml/ Chromium/Copper/ Manganese/Seleni/ Zn 1 ml/Total Parenteral Nutrition/Amino Acids/Dextrose/ Fat Emuls... 1,920 ml @ 80 mls/hr TPN CONT IV Last administered on 10/24/16 22:10; Start 10/24/16 at 22:00; Stop 10/25/16 at 21:59; Status DC Sodium Chloride (Iv Sodium Chloride 0.45%) 1,000 ml @ 45 mls/hr [id number] IV Last administered on 10/24/16 14:00; Start 10/24/16 at 14:00; Stop 10/25/16 at 11:47; Status DC Albuterol/ Ipratropium (Duoneb) 3 ml RTQID NEB Last administered on 10/29/16 09:10; Start 10/25/16 at 12:00 Albuterol Sulfate (Ventolin Neb Soln) 2.5 mg PRN Q4HRS PRN NEB SOA; Start 10/25 at 12:00 Furosemide 40 mg 40 mg 1X ONCE IVP Last administered on 10/25/16 13:49; Start 10/25/16 at 11:45; Stop 10/25/16 at 11:53; Status DC Sodium Chloride 50 meq/Sodium Acetate 80 meq/ Potassium Chloride 50 meq/ Potassium Phosphate 18 mmol/ Magnesium Sulfate 10 meq/Calcium Gluconate 10 meq/ Multivitamins/ Minerals 10 ml/ Chromium/Copper/ Manganese/Seleni/ Zn 1 ml/Total Parenteral Nutrition/Amino Acids/Dextrose/ Fat Emuls... 1,920 ml @ 80 mls/hr TPN CONT IV Last administered on 10/25/16 21:06; Start 10/25/16 at 22:00; Stop 10/26/16 at 21:59; Status DC Albumin Human (Albuminar) 100 ml @ 100 mls/hr 1X ONCE IV Last administered on 10/25/16 18:19; Start 10/25/16 at 16:45; Stop 10/25/16 at 17:44; Status DC Furosemide 40 mg 40 mg 1X ONCE IVP Last administered on 10/25/16 18:24; Start 10/25/16 at 16:45; Stop 10/25/16 at 16:46; Status DC Piperacillin Sod/ Tazobactam Sod 3.375 gm/Sodium Chloride 50 ml @ 100 mls/hr Q8HRS IV Last administered on 10/29/16 05:38; Start 10/26/16 at 10:00 Linezolid (Zyvox Premix) 300 ml @ 300 mls/hr Q12HR IV Last administered on 09:04; Start 10/26/16 at 10:00 Bisacodyl 10 mg 10 mg 1X ONCE MA Last administered on 10/27/16 09:11; Start 10/26/16 at 10:00; Stop 10/26/16 at 10:02; Status DC Sodium Chloride (Iv Sodium Chloride 0.45%) 1,000 ml @ 45 mls/hr [id number] IV Last administered on 10/27/16 09:11; Start 10/26/16 at 10:00; Stop 10/28/16 at 10:07; Status DC Acetaminophen 650 mg 650 mg PRN Q6HRS PRN MA MILD PAIN / TEMP Last administered on 10/28/16 20:02; Start 10/26/16 at 10:00 Sodium Chloride 50 meq/Sodium Acetate 80 meq/ Potassium Chloride 50 meq/ Potassium Phosphate 18 mmol/ Magnesium Sulfate 10 meq/Calcium Gluconate 10 meq/ Multivitamins/ Minerals 10 ml/ Chromium/Copper/ Manganese/Seleni/ Zn 1 ml/Total Parenteral Nutrition/Amino Acids/Dextrose/ Fat Emuls... 1,920 ml @ 80 mls/hr TPN CONT IV Last administered on 10/26/16 22:02; Start 10/26/16 at 22:00; Stop 10/27/16 at 21:59; Status DC Micafungin Sodium/ Dextrose (Mycamine) 100 ml @ 100 mls/hr Q24H IV Last administered on 10/28/16 20:38; Start 10/26/16 at 21:00 Morphine Sulfate 2 mg 2 mg PRN Q4HRS PRN IV MODERATE PAIN Last administered on 10/28/16 01:36; Start 10/27/16 at 13:00 Sodium Chloride/ Sodium Acetate/ Potassium Chloride/ Potassium Phosphate/ Magnesium Sulfate/ Calcium Gluconate/ Multivitamins/ Minerals/Chromium/ Copper/ Manganese/ Seleni/Zn/Total Parenteral Nutrition/Amino Acids/Dextrose/ Fat Emulsion Intravenous (Sodium Chloride/ Potass... 1,920 ml @ 80 mls/hr TPN CONT IV Last administered on 10/27/16 22:51; Start 10/27/16 at 22:00; Stop at 21:59; Status DC Diphenhydramine HCl (Benadryl) 25 mg 1X ONCE IM Last administered on 14:08; Start 10/27/16 at 14:30; Stop 10/27/16 at 14:31; Status DC Furosemide (Lasix) 20 mg 1X ONCE IVP Last administered on 10/28/16 08:15; Start 10/28/16 at 08:00; Stop 10/28/16 at 08:01; Status DC Furosemide 40 mg 40 mg 1X ONCE IVP ; Start 10/28/16 at 10:00; Stop 10/28/16 at 10:01; Status DC Sodium Chloride 50 meq/Sodium Acetate 60 meq/ Sodium Phosphate 18 mmol/ Magnesium Sulfate 10 meq/ Calcium Gluconate 6 meq/ Multivitamins/ Minerals 10 ml / Chromium/Copper/ Manganese/Seleni/ Zn 1 ml/Total Parenteral Nutrition/Amino Acids/Dextrose/ Fat Emulsion Intravenous 1,080 ml @ 45 mls/hr TPN CONT IV Last administered on 10/28/16 22:54; Start 10/28/16 at 22:00; Stop 10/29/16 at 21:59 Dextrose/Sodium Chloride (Iv D5% - 1/2 NS) 1,000 ml @ 75 mls/hr [id number] IV ; Start 10/28/16 at 11:00; Stop 10/28/16 at 11:12; Status DC Furosemide (Lasix) 40 mg 1X ONCE IVP ; Start 10/28/16 at 11:00; Stop 10/28/16 at 11:01; Status DC Info 1 each PRN DAILY PRN MC SEE COMMENTS; Start 10/28/16 at 11:15 Furosemide (Lasix) 40 mg 1X ONCE IVP ; Start 10/29/16 at 10:00; Stop 10/29/16 at 10:01; Status DC Active Scripts Active Hydrocodone-Apap 5-325 (Hydrocodone Bit/Acetaminophen) 1 Each Tablet 1 Tab PO PRN Q6HRS PRN Metoprolol Succinate ( Xl ) (Metoprolol Succinate) 25 Mg Tab.er.24h 25 Mg PO DAILY Reported Flomax (Tamsulosin Hcl) 0.4 Mg Cap.er.24h 1 Cap PO QHS Tramadol Hcl 100 Mg Tab.er.24h 100 Mg PO QID Levetiracetam 250 Mg Tablet 250 Mg PO BID Dulcolax (Bisacodyl) 10 Mg Supp.rect 10 Mg RC PRN DAILY PRN Maalox Advanced Suspension (Mag Hydrox/Al Hydrox/Simeth) 770 Ml Oral.susp 30 Ml PO Q2HR PRN Milk Of Magnesia (Magnesium Hydroxide) 400 Mg/5 Ml Oral.susp 30 Ml PO DAILY PRN Robitussin Cough-Chest Dm Liq (Guaifenesin/Dextromethorphan) 118 Ml Liquid 10 Ml PO Q4HRS PRN Trazodone Hcl 50 Mg Tablet 1 Tab PO QHS Tylenol (Acetaminophen) 325 Mg Tablet 650 Mg PO Q6HRS PRN Pramipexole Dihydrochloride (Pramipexole Di-Hcl) 0.5 Mg Tablet 0.5 Mg PO TID Simvastatin 20 Mg Tablet 1 Tab PO QHS Levothyroxine Sodium 100 Mcg Tablet 1 Tab PO DAILY Gabapentin 800 Mg Tablet 800 Mg PO QID Sinemet 25-100 Mg Tablet (Carbidopa/Levodopa) 1 Each Tablet 2 Tab PO TID Aspirin 81 Mg Tab.chew 1 Tab PO DAILY Vitals/I & O Vital Sign - Last 24 Hours 10/28/16 10/28/16 10/28/16 10/28/16 10:59 11:00 11:21 12:00 Temp 101.2 101.2 Pulse 95 99 Resp 16 B/P 155/75 133/67 Pulse Ox 100 100 100 99 O2 Delivery BiPAP/CPAP BiPAP/CPAP BiPAP/CPAP BiPAP/CPAP 10/28/16 10/28/16 10/28/16 10/28/16 12:00 12:00 13:00 14:00 Pulse 92 Resp 20 B/P 150/77 Pulse Ox 100 94 O2 Delivery Bi-pap BiPAP/CPAP BiPAP/CPAP O2 Flow Rate 6.0 10/28/16 10/28/16 10/28/16 10/28/16 14:00 15:00 16:00 16:00 Temp 101.9 101.9 Pulse 89 88 88 Resp 21 B/P 119/63 118/62 109/61 Pulse Ox 100 100 93 O2 Delivery BiPAP/CPAP BiPAP/CPAP BiPAP/CPAP O2 Flow Rate 6.0 10/28/16 10/28/16 10/28/16 10/28/16 16:00 16:29 16:54 17:00 Pulse 96 Resp 24 34 B/P 112/66 Pulse Ox 94 94 100 O2 Delivery Bi-pap BiPAP/CPAP BiPAP/CPAP BiPAP/CPAP 10/28/16 10/28/16 10/28/16 10/28/16 17:48 18:00 18:23 19:00 Pulse 103 96 Resp 20 23 27 22 B/P 113/63 131/66 Pulse Ox 100 100 100 100 O2 Delivery BiPAP/CPAP BiPAP/CPAP BiPAP/CPAP BiPAP/CPAP 10/28/16 10/28/16 10/28/16 10/28/16 19:35 20:00 20:00 20:00 Temp 101.2 101.2 Pulse 91 Resp 22 B/P 129/63 Pulse Ox 94 100 O2 Delivery BiPAP/CPAP Bi-pap BiPAP/CPAP O2 Flow Rate 6.0 6.0 10/28/16 10/28/16 10/28/16 10/28/16 20:01 21:00 22:00 23:00 Pulse 90 80 82 Resp 21 23 22 22 B/P 134/65 113/66 119/74 Pulse Ox 100 100 100 100 O2 Delivery BiPAP/CPAP BiPAP/CPAP BiPAP/CPAP BiPAP/CPAP 10/28/16 10/29/16 10/29/16 10/29/16 23:20 00:00 00:00 00:00 Temp 100.3 100.3 Pulse 81 Resp 22 B/P 124/68 Pulse Ox 100 100 O2 Delivery BiPAP/CPAP BiPAP/CPAP Bi-pap O2 Flow Rate 6.0 6.0 10/29/16 10/29/16 10/29/16 10/29/16 01:00 01:30 02:00 03:00 Pulse 82 96 90 Resp 22 22 18 B/P 121/57 109/62 111/61 Pulse Ox 100 99 97 98 O2 Delivery BiPAP/CPAP BiPAP/CPAP BiPAP/CPAP Nasal Cannula O2 Flow Rate 6.0 10/29/16 10/29/16 10/29/16 10/29/16 04:00 04:00 04:00 04:02 Temp 99.7 99.7 Pulse 90 Resp 22 35 B/P 111/65 Pulse Ox 100 O2 Delivery BiPAP/CPAP Bi-pap Nasal Cannula O2 Flow Rate 6.0 6.0 6.0 10/29/16 10/29/16 10/29/16 10/29/16 05:00 05:39 06:00 08:00 Pulse 80 78 Resp 24 22 22 B/P 111/58 110/64 Pulse Ox 100 100 99 O2 Delivery BiPAP/CPAP BiPAP/CPAP BiPAP/CPAP Bi-pap O2 Flow Rate 6.0 10/29/16 10/29/16 08:00 08:30 Pulse Ox 100 O2 Delivery BiPAP/CPAP O2 Flow Rate 6.0 Intake and Output 10/28/16 10/28/16 10/29/16 15:00 23:00 07:00 Intake Total 905 ml 50 ml 1182 ml Output Total 1300 ml 600 ml 555 ml Balance -395 ml -550 ml 627 ml RICHARD [place] MD Oct 29, 2016 10:46
--- NOTE | 2016-10-29 11:12 | PDOC ---
PULMONARY PROGRESS NOTES Subjective Pt improved with BIPAP now right lung with atelectasis Vitals Vital Signs Date Time Temp Pulse Resp B/P Pulse Ox O2 Delivery O2 Flow Rate FiO2 10/29/16 08:30 100 BiPAP/CPAP 10/29/16 08:00 6.0 10/29/16 06:00 78 22 110/64 10/29/16 04:00 99.7 99.7 General: Alert, Mild Distress Lungs: Other (decrease bs) Cardiovascular: S1, S2 Abdomen: Soft Neuro Exam: Alert, Oriented Extremities: Other (2+ edema BL ) Skin: Warm, Dry Labs Laboratory Tests Test 10/28/16 07:26 10/28/16 08:00 10/28/16 11:00 10/29/16 05:15 O2 Saturation 82% (92-99) 98% (92-99) Arterial Blood pH 7.36 (7.35-7.45) 7.35 (7.35-7.45) Arterial Blood pCO2 at Patient Temp 49mmHg (35-46) 51mmHg (35-46) Arterial Blood pO2 at Patient Temp 50mmHg (65-108) 135mmHg (65-108) Arterial Blood HCO3 27mmol/L (21-28) 27mmol/L (21-28) Arterial Blood Base Excess 1mmol/L (-3-3) 1mmol/L (-3-3) FiO2 50% 100 White Blood Count 7.6x10^3/uL (4.0-11.0) 6.7x10^3/uL (4.0-11.0) Red Blood Count 3.01x10^6/uL (4.30-5.70) 2.65x10^6/uL (4.30-5.70) Hemoglobin 9.3g/dL (13.0-17.5) 8.1g/dL (13.0-17.5) Hematocrit 28.2% (39.0-53.0) 25.0% (39.0-53.0) Mean Corpuscular Volume 94fL (79-100) 95fL (79-100) Mean Corpuscular Hemoglobin 31pg (25-35) 31pg (25-35) Mean Corpuscular Hemoglobin Concent 33g/dL (31-37) 33g/dL (31-37) Red Cell Distribution Width 17.5% (11.5-14.5) 17.1% (11.5-14.5) Platelet Count 254x10^3/uL (140-400) 230x10^3/uL (140-400) Neutrophils (%) (Auto) 67% (31-73) 71% (31-73) Lymphocytes (%) (Auto) 18% (24-48) 15% (24-48) Monocytes (%) (Auto) 10% (0-9) 11% (0-9) Eosinophils (%) (Auto) 4% (0-3) 3% (0-3) Basophils (%) (Auto) 1% (0-3) 0% (0-3) Neutrophils # (Auto) 5.1x10^3uL (1.8-7.7) 4.8x10^3uL (1.8-7.7) Lymphocytes # (Auto) 1.4x10^3/uL (1.0-4.8) 1.0x10^3/uL (1.0-4.8) Monocytes # (Auto) 0.8x10^3/uL (0.0-1.1) 0.8x10^3/uL (0.0-1.1) Eosinophils # (Auto) 0.3x10^3/uL (0.0-0.7) 0.2x10^3/uL (0.0-0.7) Basophils # (Auto) 0.1x10^3/uL (0.0-0.2) 0.0x10^3/uL (0.0-0.2) Sodium Level 139mmol/L (136-145) 138mmol/L (136-145) Potassium Level 5.9mmol/L (3.5-5.1) 4.0mmol/L (3.5-5.1) Chloride Level 104mmol/L (98-107) 104mmol/L (98-107) Carbon Dioxide Level 27mmol/L (21-32) 28mmol/L (21-32) Anion Gap 8 (6-14) 6 (6-14) Blood Urea Nitrogen 28mg/dL (8-26) 25mg/dL (8-26) Creatinine 1.5mg/dL (0.7-1.3) 1.5mg/dL (0.7-1.3) Estimated GFR (Cockcroft-Gault) 44.5 44.5 Glucose Level 128mg/dL (70-99) 157mg/dL (70-99) Lactic Acid Level 1.0mmol/L (0.4-2.0) Calcium Level 8.0mg/dL (8.5-10.1) 8.0mg/dL (8.5-10.1) Phosphorus Level 3.8mg/dL (2.6-4.7) 3.3mg/dL (2.6-4.7) Troponin I Quantitative 0.047ng/mL (0.000-0.055) BUN/Creatinine Ratio 17 (6-20) Magnesium Level 2.1mg/dL (1.8-2.4) Total Bilirubin 0.3mg/dL (0.2-1.0) Aspartate Amino Transf (AST/SGOT) 32U/L (15-37) Alanine Aminotransferase (ALT/SGPT) 37U/L (16-63) Alkaline Phosphatase 80U/L (46-116) Total Protein 5.9g/dL (6.4-8.2) Albumin 1.4g/dL (3.4-5.0) Albumin/Globulin Ratio 0.3 (1.0-1.7) Laboratory Tests Test 10/29/16 05:15 White Blood Count 6.7x10^3/uL (4.0-11.0) Red Blood Count 2.65x10^6/uL (4.30-5.70) Hemoglobin 8.1g/dL (13.0-17.5) Hematocrit 25.0% (39.0-53.0) Mean Corpuscular Volume 95fL (79-100) Mean Corpuscular Hemoglobin 31pg (25-35) Mean Corpuscular Hemoglobin Concent 33g/dL (31-37) Red Cell Distribution Width 17.1% (11.5-14.5) Platelet Count 230x10^3/uL (140-400) Neutrophils (%) (Auto) 71% (31-73) Lymphocytes (%) (Auto) 15% (24-48) Monocytes (%) (Auto) 11% (0-9) Eosinophils (%) (Auto) 3% (0-3) Basophils (%) (Auto) 0% (0-3) Neutrophils # (Auto) 4.8x10^3uL (1.8-7.7) Lymphocytes # (Auto) 1.0x10^3/uL (1.0-4.8) Monocytes # (Auto) 0.8x10^3/uL (0.0-1.1) Eosinophils # (Auto) 0.2x10^3/uL (0.0-0.7) Basophils # (Auto) 0.0x10^3/uL (0.0-0.2) Sodium Level 138mmol/L (136-145) Potassium Level 4.0mmol/L (3.5-5.1) Chloride Level 104mmol/L (98-107) Carbon Dioxide Level 28mmol/L (21-32) Anion Gap 6 (6-14) Blood Urea Nitrogen 25mg/dL (8-26) Creatinine 1.5mg/dL (0.7-1.3) Estimated GFR (Cockcroft-Gault) 44.5 BUN/Creatinine Ratio 17 (6-20) Glucose Level 157mg/dL (70-99) Calcium Level 8.0mg/dL (8.5-10.1) Phosphorus Level 3.3mg/dL (2.6-4.7) Magnesium Level 2.1mg/dL (1.8-2.4) Total Bilirubin 0.3mg/dL (0.2-1.0) Aspartate Amino Transf (AST/SGOT) 32U/L (15-37) Alanine Aminotransferase (ALT/SGPT) 37U/L (16-63) Alkaline Phosphatase 80U/L (46-116) Total Protein 5.9g/dL (6.4-8.2) Albumin 1.4g/dL (3.4-5.0) Albumin/Globulin Ratio 0.3 (1.0-1.7) Medications Active Scripts Medications Dose Route/Sig Days Date Category Hydrocodone-Apap 5-325 (Hydrocodone Bit/Acetaminophen) 1 Each Tablet 1 Tab PO PRN Q6HRS PRN 08/28/16 Rx Flomax (Tamsulosin Hcl) 0.4 Mg Cap.er.24h 1 Cap PO QHS 01/01/16 Reported Tramadol Hcl 100 Mg Tab.er.24h 100 Mg PO QID 01/01/16 Reported Levetiracetam 250 Mg Tablet 250 Mg PO BID 01/01/16 Reported Dulcolax (Bisacodyl) 10 Mg Supp.rect 10 Mg RC PRN DAILY PRN 12/21/15 Reported Maalox Advanced Suspension (Mag Hydrox/Al Hydrox/Simeth) 770 Ml Oral.susp 30 Ml PO Q2HR PRN 12/21/15 Reported Milk Of Magnesia (Magnesium Hydroxide) 400 Mg/5 Ml Oral.susp 30 Ml PO DAILY PRN 12/21/15 Reported Robitussin Cough-Chest Dm Liq (Guaifenesin/Dextromethorphan) 118 Ml Liquid 10 Ml PO Q4HRS PRN 12/21/15 Reported Trazodone Hcl 50 Mg Tablet 1 Tab PO QHS 12/21/15 Reported Tylenol (Acetaminophen) 325 Mg Tablet 650 Mg PO Q6HRS PRN 12/21/15 Reported Pramipexole Dihydrochloride (Pramipexole Di-Hcl) 0.5 Mg Tablet 0.5 Mg PO TID 12/08/15 Reported Metoprolol Succinate ( Xl ) (Metoprolol Succinate) 25 Mg Tab.er.24h 25 Mg PO DAILY 12/06/15 Rx Simvastatin 20 Mg Tablet 1 Tab PO QHS 12/02/15 Reported Levothyroxine Sodium 100 Mcg Tablet 1 Tab PO DAILY 12/02/15 Reported Gabapentin 800 Mg Tablet 800 Mg PO QID 12/02/15 Reported Sinemet 25-100 Mg Tablet (Carbidopa/Levodopa) 1 Each Tablet 2 Tab PO TID 12/02/15 Reported Aspirin 81 Mg Tab.chew 1 Tab PO DAILY 12/02/15 Reported Comments CXR 10/28 LARGE LEFT MUCOUS PLUG CXR 10/29 Improved aeration left lung , increase atelectasis right lung Impression . - Acute Hypoxemic Respiratory Failure ,worse 10/28 due to large mucous plug left lung , improved with NIPPV - Small-bowel obstruction s/p exploratory laparotomy 10/13/16. - post op ileus - critical illness myopathy - Chronic kidney disease stage III - Seizure disorder. - Parkinson's disease. - Hypothyroidism. - Peripheral neuropathy. - Hypertension. - paroxysmal atrial fibrillation Plan . - Increase atelectasis right lung/ Continue intermittent NIPPV - NTS prn i - monitor in ICU closely - Monitor I/Os: and would continue gentle diuresis - Abx per ID - DNR/DNI/ Long discussion with daughter/ pt yesterday ROXIE RINALDI MD Oct 29, 2016 11:12
[2016-10-29] MEDS: TPN PER PHARMACY MC PRN (11:25)
[2016-10-29] MEDS: MICAFUNGIN 100 MG in IV DEXTROSE 5% 100 ML IV SCH (20:29)
[2016-10-29] MEDS ORDERED: TOTAL PARENTERAL NUTRITION IV SCH ×10 (22:00)
[2016-10-29] MEDS ORDERED: DEXTROSE 70% IV SCH ×10 (22:00)
[2016-10-29] MEDS ORDERED: AMINO ACID IV SCH ×10 (22:00)
[2016-10-29] MEDS ORDERED: [UNRECOGNIZED DRUG - OTHER] IV SCH ×10 (22:00)
[2016-10-30] VITALS (17 sets, daily range): BP systolic 115–176; BP diastolic 59–82
[2016-10-30] MEDS: hydrALAZINE 20 MG/ML VIAL. IVP PRN ×2 (00:12→10:51)
[2016-10-30] MEDS: MORPHINE SULFATE 2 MG/ML DISP.SYRIN. IV PRN ×4 (00:49→11:58)
[2016-10-30] MEDS: MORPHINE SULFATE 4 MG/ML DISP.SYRIN. IV PRN ×7 (01:56→22:44)
[2016-10-30] MEDS: PIPERACILLIN/TAZOBACTAM 3.375 GM in IV NORMAL SALINE 50ML 50 ML IV SCH (05:04)
[2016-10-30 07:09] LABS: CALCIUM 7.7 mg/dL (8.5-10.1); CREATININE 1.4 mg/dL (0.7-1.3); GFR 48.2; POTASSIUM 3.9 mmol/L (3.5-5.1)
--- NOTE | 2016-10-30 07:21 | PDOC ---
Infectious Disease Note Subjective Subjective On Bipap - ok but uncomfortable in his buttock area ROS ROS GEN: Denies fevers, chills, sweats HEENT: Denies blurred vision, sore throat CV: Denies chest pain RESP: Denies shortness of air, cough but on Bipap GI: Denies n/v/d NEURO: Denies confusion, dizziness. Has tremor MSK: Denies weakness, joint pain/swelling Vital Sign Vital Signs Vital Signs Date Time Temp Pulse Resp B/P Pulse Ox O2 Delivery O2 Flow Rate FiO2 10/30/16 07:08 21 98 10/30/16 06:00 90 146/68 BiPAP/CPAP 10/30/16 04:00 100.3 100.3 10/30/16 04:00 15.0 Physical Exam PHYSICAL EXAM GENERAL: In bed, NAD, coop on Bipap. Looks better HEENT: nonicteric NECK: Supple, no JVD, no LN LUNGS: CTA HEART: S1S2, no gallop, no murmur ABD: Obese, hypoactive BS, NT light palpation. No guard/No rebound. Incision well-approx. No redness or drainage. EXT: BLE trace edema. No cyanosis FURNACE RELINER: Alert, 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. + tremor SKIN: No rash PICC RUE - clean Labs Lab Laboratory Tests Test 10/30/16 06:45 Sodium Level 139mmol/L (136-145) Potassium Level 3.9mmol/L (3.5-5.1) Chloride Level 102mmol/L (98-107) Carbon Dioxide Level 30mmol/L (21-32) Anion Gap 7 (6-14) Blood Urea Nitrogen 24mg/dL (8-26) Creatinine 1.4mg/dL (0.7-1.3) Estimated GFR (Cockcroft-Gault) 48.2 Glucose Level 151mg/dL (70-99) Calcium Level 7.7mg/dL (8.5-10.1) Micro Klebsiella pneumoniae 50,000-100,000 colony forming units per mL ANTIMICROBIAL SUSCEPTIBILITY Final Comment S = Susceptible; I = Intermediate; R = Resistant P = Positive; N = Negative MICS are expressed in micrograms per mL Antibiotic RSLT#1 RSLT#2 RSLT#3 RSLT#4 Amoxicillin/Clavulanic Acid S Ampicillin R Cefepime S Ceftriaxone S Cefuroxime S Cephalothin S Ciprofloxacin S Ertapenem S Gentamicin S Imipenem S Levofloxacin S Nitrofurantoin S Piperacillin S Tetracycline S Tobramycin S Trimethoprim/Sulfa S Objective Assessment Acute resp failure now on Bipap. Mucus plugg Fever - ? Infection vs. PRBCs Acute anemia s/p PRBCs MRSA sputum 10/26. Klebsiells10/25 Coarse right breath sounds - better TAYLOR Klebsiella UTI 10/04 although a lot of squamous cells present on UA Small bowel obstruction - seems improved and no NGT Left hand pain and warmth - better with less edema N/V - better Dislodgement of NGT - out Hiatal hernia + MRSA Cipro allergy. Seizure disorder Parkinson's disease h/o UTI: Citrobacter & Klebsiella h/o E. coli bacteremia Plan Plan of Care Change to meropenem. Micro only reports Pip and not Pip/Tazo so uncertain if Zosyn is covering Kleb from 10/25 Cont Zyvox/Micafungin F/u cults/labs DNR Off load Critically ill but improving SAMI MARTINEZ MD Oct 30, 2016 07:21
[2016-10-30] MEDS ORDERED: MEROPENEM 500 MG in IV NORMAL SALINE 50ML 50 ML IV SCH (07:30)
[2016-10-30] MEDS: PANTOPRAZOLE IV PUSH 40 MG VIAL. IVP SCH (07:30)
--- NOTE | 2016-10-30 07:55 | RAD ---
Indication: Respiratory failure. Time of exam 0621 hours. Correlation is made with prior study 1 day earlier. Right upper extremity PICC line has the tip overlying the SVC. The heart size is stable. Left basilar consolidation and pleural fluid shows no real change. There has been some improved aeration to the right lung since yesterday. No pneumothorax is seen. Small effusion on the right is unchanged Impression: Bilateral effusions and left basilar consolidation. There has been improved aeration to the right chest since exam one day earlier.
[2016-10-30] MEDS: IPRATRPIUM/ALBUTEROL 0.5/2.5MG 3 ML NEBU. NEB SCH ×2 (08:16→11:55)
[2016-10-30 08:23] LABS: HCO3 ABG 29 mmol/L (21-28); PCO2 ABG 47 mmHg (35-46); PH ABG 7.41 (7.35-7.45); PO2 ABG 92 mmHg (65-108); SAT O2 ABG 97 % (92-99)
[2016-10-30 08:25] LABS: FIO2 ABG 50
[2016-10-30] MEDS ORDERED: BISACODYL 10 MG SUPP.RECT PR ONE (09:15)
[2016-10-30] MEDS ORDERED: FUROSEMIDE 40 MG/4 ML VIAL IVP ONE (09:15)
--- NOTE | 2016-10-30 09:16 | PDOC ---
PROGRESS NOTES Subjective Subjective feels better. just taken off of bipap and placed on venti mask. lab reviewed. no BM. cxr reviewed. Objective Objective Vital Signs Date Time Temp Pulse Resp B/P Pulse Ox O2 Delivery O2 Flow Rate FiO2 10/30/16 08:10 100 BiPAP/CPAP 10/30/16 07:08 21 10/30/16 06:00 90 146/68 10/30/16 04:00 100.3 100.3 10/30/16 04:00 15.0 Intake and Output 10/30/16 07:00 Intake Total 2805 ml Output Total 3220 ml Balance -415 ml Intake Oral 0 ml IV Total 2805 ml Output Urine Total 3220 ml Physical Exam Abdomen: Soft, Other (obese. bowel sounds positive) Heart: Normal S1, Normal S2 Extremities: Other (1 plus edema legs) General: Alert HEENT: Atraumatic Lungs: Other (clear anteriorly) Neuro: Normal speech Psych/Mental Status: Mood NL Skin: No rashes Assessment Assessment Small-bowel obstruction resolved exploratory laparotomy 10/13/16. lysis of adhesions. bowel viable. post op ileus. prolonged 2. Seizure disorder. 3. Parkinson's disease. 4. Hypothyroidism. 5. Peripheral neuropathy. 6. Hypertension. 7. Chronic kidney disease stage III. klebsiella uti treated suspected gout synovitis resolved peripheral edema critical illness myopathy hematemesis once resolved paroxysmal atrial fibrillation. not a good candidate for anticoagulants acute hypoxic respiratory failure atelactasis MRSA and klebsiella in sputum large hiatal hernia LLL infiltrate with pleural effusion anemia Problems Medical Problems: (1) SBO (small bowel obstruction) Status: Acute Plan Plan of Care iv zyvox and meropenem and micofungin continue oxygen iv lasix today add kcl to TPN iv keppra iv protonix iv levothyroxine dulcolax suppository today Comment Review of Relevant I have reviewed the following items [place] (where applicable) has been applied. Labs Laboratory Tests Test 10/28/16 11:00 10/29/16 05:15 10/30/16 06:45 10/30/16 08:00 O2 Saturation 98% (92-99) 97% (92-99) Arterial Blood pH 7.35 (7.35-7.45) 7.41 (7.35-7.45) Arterial Blood pCO2 at Patient Temp 51mmHg (35-46) 47mmHg (35-46) Arterial Blood pO2 at Patient Temp 135mmHg (65-108) 92mmHg (65-108) Arterial Blood HCO3 27mmol/L (21-28) 29mmol/L (21-28) Arterial Blood Base Excess 1mmol/L (-3-3) 3mmol/L (-3-3) FiO2 100 50 White Blood Count 6.7x10^3/uL (4.0-11.0) 9.8x10^3/uL (4.0-11.0) Red Blood Count 2.65x10^6/uL (4.30-5.70) 2.92x10^6/uL (4.30-5.70) Hemoglobin 8.1g/dL (13.0-17.5) 9.2g/dL (13.0-17.5) Hematocrit 25.0% (39.0-53.0) 27.8% (39.0-53.0) Mean Corpuscular Volume 95fL (79-100) 95fL (79-100) Mean Corpuscular Hemoglobin 31pg (25-35) 31pg (25-35) Mean Corpuscular Hemoglobin Concent 33g/dL (31-37) 33g/dL (31-37) Red Cell Distribution Width 17.1% (11.5-14.5) 16.7% (11.5-14.5) Platelet Count 230x10^3/uL (140-400) 277x10^3/uL (140-400) Neutrophils (%) (Auto) 71% (31-73) 73% (31-73) Lymphocytes (%) (Auto) 15% (24-48) 15% (24-48) Monocytes (%) (Auto) 11% (0-9) 7% (0-9) Eosinophils (%) (Auto) 3% (0-3) 4% (0-3) Basophils (%) (Auto) 0% (0-3) 1% (0-3) Neutrophils # (Auto) 4.8x10^3uL (1.8-7.7) 7.2x10^3uL (1.8-7.7) Lymphocytes # (Auto) 1.0x10^3/uL (1.0-4.8) 1.4x10^3/uL (1.0-4.8) Monocytes # (Auto) 0.8x10^3/uL (0.0-1.1) 0.7x10^3/uL (0.0-1.1) Eosinophils # (Auto) 0.2x10^3/uL (0.0-0.7) 0.4x10^3/uL (0.0-0.7) Basophils # (Auto) 0.0x10^3/uL (0.0-0.2) 0.1x10^3/uL (0.0-0.2) Sodium Level 138mmol/L (136-145) 139mmol/L (136-145) Potassium Level 4.0mmol/L (3.5-5.1) 3.9mmol/L (3.5-5.1) Chloride Level 104mmol/L (98-107) 102mmol/L (98-107) Carbon Dioxide Level 28mmol/L (21-32) 30mmol/L (21-32) Anion Gap 6 (6-14) 7 (6-14) Blood Urea Nitrogen 25mg/dL (8-26) 24mg/dL (8-26) Creatinine 1.5mg/dL (0.7-1.3) 1.4mg/dL (0.7-1.3) Estimated GFR (Cockcroft-Gault) 44.5 48.2 BUN/Creatinine Ratio 17 (6-20) Glucose Level 157mg/dL (70-99) 151mg/dL (70-99) Calcium Level 8.0mg/dL (8.5-10.1) 7.7mg/dL (8.5-10.1) Phosphorus Level 3.3mg/dL (2.6-4.7) Magnesium Level 2.1mg/dL (1.8-2.4) Total Bilirubin 0.3mg/dL (0.2-1.0) Aspartate Amino Transf (AST/SGOT) 32U/L (15-37) Alanine Aminotransferase (ALT/SGPT) 37U/L (16-63) Alkaline Phosphatase 80U/L (46-116) Total Protein 5.9g/dL (6.4-8.2) Albumin 1.4g/dL (3.4-5.0) Albumin/Globulin Ratio 0.3 (1.0-1.7) Laboratory Tests Test 10/30/16 06:45 10/30/16 08:00 White Blood Count 9.8x10^3/uL (4.0-11.0) Red Blood Count 2.92x10^6/uL (4.30-5.70) Hemoglobin 9.2g/dL (13.0-17.5) Hematocrit 27.8% (39.0-53.0) Mean Corpuscular Volume 95fL (79-100) Mean Corpuscular Hemoglobin 31pg (25-35) Mean Corpuscular Hemoglobin Concent 33g/dL (31-37) Red Cell Distribution Width 16.7% (11.5-14.5) Platelet Count 277x10^3/uL (140-400) Neutrophils (%) (Auto) 73% (31-73) Lymphocytes (%) (Auto) 15% (24-48) Monocytes (%) (Auto) 7% (0-9) Eosinophils (%) (Auto) 4% (0-3) Basophils (%) (Auto) 1% (0-3) Neutrophils # (Auto) 7.2x10^3uL (1.8-7.7) Lymphocytes # (Auto) 1.4x10^3/uL (1.0-4.8) Monocytes # (Auto) 0.7x10^3/uL (0.0-1.1) Eosinophils # (Auto) 0.4x10^3/uL (0.0-0.7) Basophils # (Auto) 0.1x10^3/uL (0.0-0.2) Sodium Level 139mmol/L (136-145) Potassium Level 3.9mmol/L (3.5-5.1) Chloride Level 102mmol/L (98-107) Carbon Dioxide Level 30mmol/L (21-32) Anion Gap 7 (6-14) Blood Urea Nitrogen 24mg/dL (8-26) Creatinine 1.4mg/dL (0.7-1.3) Estimated GFR (Cockcroft-Gault) 48.2 Glucose Level 151mg/dL (70-99) Calcium Level 7.7mg/dL (8.5-10.1) O2 Saturation 97% (92-99) Arterial Blood pH 7.41 (7.35-7.45) Arterial Blood pCO2 at Patient Temp 47mmHg (35-46) Arterial Blood pO2 at Patient Temp 92mmHg (65-108) Arterial Blood HCO3 29mmol/L (21-28) Arterial Blood Base Excess 3mmol/L (-3-3) FiO2 50 Microbiology 10/26/16 Blood Culture - Preliminary, Resulted NO GROWTH AFTER 3 DAYS 10/26/16 Gram Stain - Final, Complete 10/13/16 Urine Culture - Final, Complete 10/13/16 Urine Culture Result 1 (MANDEEP) - Final, Complete Medications Current Medications Fentanyl Citrate 50 mcg 50 mcg PRN Q15MIN PRN IV PAIN GREATER THAN 3/10 Last administered on 09/30/16at 19:35; Start 09/30/16 at 17:30; Stop 10/01/16 at 04 :24; Status DC Lactated Ringer's (Iv Lactated Ringers) 1,000 ml @ 100 mls/hr Q10H IV Last administered on 09/30/16at 19:35; Start 09/30/16 at 17:28; Stop 10/01/16 at 03 :27; Status DC Ondansetron HCl (Zofran) 4 mg 1X ONCE IV Last administered on 09/30/16at 17:44 ; Start 09/30/16 at 17:30; Stop 09/30/16 at 17:32; Status DC Fentanyl Citrate (Fentanyl 2ml Vial) 50 mcg 1X ONCE IV ; Start 09/30/16 at 19: 15; Stop 10/01/16 at 04:24; Status DC Ondansetron HCl (Zofran) 4 mg PRN Q8HRS PRN IV NAUSEA/VOMITING Last administered on 09/30/16at 22:07; Start 09/30/16 at 19:15; Stop 10/01/16 at 19 :14; Status DC Fentanyl Citrate 50 mcg 50 mcg PRN Q2HR PRN IV PAIN Last administered on at 16:54; Start 09/30/16 at 19:15; Stop 10/01/16 at 19:14; Status DC Sodium Chloride 1,000 ml @ 100 mls/hr Q10H IV ; Start 09/30/16 at 19:30; Stop 10/01/16 at 04:24; Status DC Potassium Chloride/Dextrose/ Sod Cl (KCl 20 Meq In D5W-1/2 NS) 1,000 ml @ 125 mls/hr Q8H IV Last administered on 10/04/16at 06:02; Start 09/30/16 at 20:00; Stop 10/04/16 at 10:21; Status DC Enoxaparin Sodium 40 mg 40 mg Q24H SQ Last administered on 10/13/16 08:14; Start 10/01/16 at 09:00; Stop 10/13/16 at 08:36; Status DC Levetiracetam/ Sodium Chloride (Keppra/Iv Sodium Chloride 0.9% 100ml) 105 ml @ 400 mls/hr Q12HR IV Last administered on 10/05/16 09:30; Start 09/30/16 at 21: 00; Stop 10/05/16 at 10:24; Status DC Morphine Sulfate 2 mg PRN Q4HRS PRN IV SEVERE PAIN Last administered on 10:13; Start 09/30/16 at 19:30; Stop 10/05/16 at 10:24; Status DC Acetaminophen (Tylenol) 650 mg PRN Q6HRS PRN [facility] MILD PAIN / TEMP; Start at 19:30; Stop 10/05/16 at 10:24; Status DC Ondansetron HCl (Zofran) 4 mg PRN Q6HRS PRN IV NAUSEA/VOMITING Last administered on 10/07/16 08:28; Start 09/30/16 at 19:30; Stop 10/09/16 at 12:08 ; Status DC Benzocaine (Hurricaine One) 1 spray STK-MED ONCE .ROUTE ; Start 09/30/16 at 19: 51; Stop 09/30/16 at 19:52; Status DC Morphine Sulfate 4 mg PRN Q4HRS PRN IV PAIN Last administered on 10/05/16 08:08 ; Start 10/01/16 at 20:00; Stop 10/05/16 at 10:24; Status DC Clonidine HCl 1 patch 1 patch WEEKLY TD Last administered on 10/03/16at 12:30; Start 10/03/16 at 10:00; Stop 10/05/16 at 10:24; Status DC Piperacillin Sod/ Tazobactam Sod/ Sodium Chloride (Zosyn/Iv Sodium Chloride 0.9 % 50ml) 50 ml @ 100 mls/hr Q6HRS IV Last administered on 10/09/16 06:26; Start 10/04/16 at 11:00; Stop 10/09/16 at 10:55; Status DC Vancomycin HCl 1 each 1 each PRN DAILY PRN MC SEE COMMENTS Last administered on 10/07/16 11:11; Start 10/04/16 at 10:15; Stop 10/07/16 at 11:28; Status DC Vancomycin HCl/ Sodium Chloride (Iv Sodium Chloride 0.9% 250ml) 250 ml @ 250 mls/hr Q24H IV ; Start 10/04/16 at 10:15; Status UNV Labetalol HCl (Normodyne) 20 mg PRN Q6HRS PRN IVP HYPERTENSION, SEE COMMENTS; Start 10/04/16 at 10:15; Stop 10/05/16 at 10:24; Status DC Hydralazine HCl 10 mg 10 mg PRN Q6HRS PRN IVP ELEVATED BP, SEE COMMENTS Last administered on 10/06/16 19:17; Start 10/04/16 at 10:15; Stop 10/12/16 at 10:40 ; Status DC Amino Acids/ Glycerin/ Electrolytes 1,000 ml @ 40 mls/hr Q24H IV Last administered on 10/06/16 09:59; Start 10/04/16 at 10:15; Stop 10/07/16 at 09:06 ; Status DC Vancomycin HCl 2 gm/Sodium Chloride 500 ml @ 250 mls/hr 1X ONCE IV Last administered on 10/04/16at 11:26; Start 10/04/16 at 10:45; Stop 10/04/16 at 12 :44; Status DC Vancomycin HCl/ Sodium Chloride (Iv Sodium Chloride 0.9% 500ml Bag) 500 ml @ 250 mls/hr Q24H IV Last administered on 10/06/16 11:47; Start 10/05/16 at 12:00 ; Stop 10/07/16 at 11:28; Status DC Vancomycin HCl 1 each 1X ONCE MC Last administered on 10/06/16 11:30; Start at 11:30; Stop 10/06/16 at 11:31; Status DC Aspirin (Children'S Aspirin) 81 mg [id number] PO Last administered on 10/13/16 08:15; Start 10/05/16 at 11:00; Stop 10/13/16 at 08:29; Status DC Gabapentin (Neurontin) 600 mg QID PO Last administered on 10/13/16 08:14; Start 10/05/16 at 13:00; Stop 10/14/16 at 08:47; Status DC Levetiracetam (Keppra) 250 mg BID PO Last administered on 10/13/16 08:17; Start 10/05/16 at 11:00; Stop 10/14/16 at 08:47; Status DC Levothyroxine Sodium (Synthroid) 100 mcg DAILY07 PO Last administered on 05:08; Start 10/05/16 at 10:30; Stop 10/14/16 at 08:48; Status DC Metoprolol Succinate (Toprol Xl) 25 mg DAILY PO Last administered on 10/13/16 08:16; Start 10/05/16 at 11:00; Stop 10/14/16 at 08:47; Status DC Pramipexole Dihydrochloride (miraPEX) 0.5 mg NEF000 PO Last administered on 10/13 08:15; Start 10/05/16 at 11:00; Stop 10/14/16 at 08:48; Status DC Simvastatin (Zocor) 20 mg HS PO Last administered on 10/12/16 21:07; Start 10/05 at 21:00; Stop 10/14/16 at 08:48; Status DC Carbidopa/Levodopa (Sinemet Cr) 1 tab.sa TID PO Last administered on 10/13/16 08:16; Start 10/05/16 at 11:00; Stop 10/14/16 at 08:48; Status DC Tamsulosin HCl (Flomax) 0.4 mg QHS PO Last administered on 10/12/16 21:07; Start 10/05/16 at 21:00; Stop 10/14/16 at 08:48; Status DC Tramadol HCl (Ultram) 50 mg QID PO Last administered on 10/13/16 08:17; Start 10/05/16 at 13:00; Stop 10/14/16 at 08:48; Status DC Acetaminophen (Tylenol) 650 mg PRN Q4HRS PRN PO MILD PAIN / TEMP Last administered on 10/13/16 00:17; Start 10/05/16 at 10:15; Stop 10/14/16 at 08:48; Status DC Prednisone (Prednisone) 20 mg 1X ONCE PO Last administered on 10/06/16 11:01; Start 10/06/16 at 10:30; Stop 10/06/16 at 10:31; Status DC Prednisone (Prednisone) 10 mg DAILY08 PO Last administered on 10/13/16 08:15; Start 10/07/16 at 08:00; Stop 10/13/16 at 08:29; Status DC Al Hydroxide/Mg Hydroxide (Mylanta Plus Xs) 30 ml PRN Q4HRS PRN PO HEARTBURN / GAS Last administered on 10/12/16 21:07; Start 10/07/16 at 08:45; Stop 10/14/16 at 08:48; Status DC Pantoprazole Sodium (Protonix) 40 mg DAILYAC PO Last administered on 10/13/16 05:08; Start 10/07/16 at 10:00; Stop 10/13/16 at 06:45; Status DC Furosemide 40 mg 40 mg DAILY PO Last administered on 10/08/16 08:42; Start 10/07 at 10:00; Stop 10/08/16 at 08:56; Status DC Sodium Chloride (Iv Sodium Chloride 0.45%) 1,000 ml @ 60 mls/hr CONT PRN IV . ; Start 10/08/16 at 09:00; Stop 10/08/16 at 16:06; Status DC Bisacodyl 10 mg 10 mg 1X ONCE VA Last administered on 10/08/16 10:11; Start at 09:30; Stop 10/08/16 at 09:31; Status DC Sodium Chloride (Iv Sodium Chloride 0.45%) 1,000 ml @ 60 mls/hr [id number] IV Last administered on 10/09/16 02:52; Start 10/08/16 at 10:15; Stop 10/09/16 at 12: 00; Status DC Cefpodoxime Proxetil (Vantin) 200 mg BID PO ; Start 10/09/16 at 11:00; Stop at 12:08; Status DC Cefpodoxime Proxetil (Vantin) 100 mg BID PO Last administered on 10/13/16 08:16 ; Start 10/09/16 at 21:00; Stop 10/13/16 at 08:29; Status DC Ondansetron HCl (Zofran) 4 mg STK-MED ONCE .ROUTE Last administered on 01:24; Start 10/13/16 at 01:19; Stop 10/13/16 at 01:20; Status DC Ondansetron HCl (Zofran) 4 mg PRN Q6HRS PRN IV NAUSEA/VOMITING Last administered on 10/27/16 00:39; Start 10/13/16 at 02:00 Pantoprazole Sodium 40 mg 40 mg DAILYAC IVP Last administered on 10/29/16 08: 01; Start 10/13/16 at 07:30 Dextrose/Sodium Chloride (Iv D5% - NS) 1,000 ml @ 60 mls/hr [id number] IV Last administered on 10/13/16 09:25; Start 10/13/16 at 08:30; Stop 10/13/16 at 11:01; Status DC Sodium Polystyrene Sulfonate 15 gm 15 gm 1X ONCE PO Last administered on 09:26; Start 10/13/16 at 08:30; Stop 10/13/16 at 08:31; Status DC Piperacillin Sod/ Tazobactam Sod 3.375 gm/Sodium Chloride 50 ml @ 100 mls/hr Q6HRS IV Last administered on 10/19/16 12:42; Start 10/13/16 at 09:00; Stop at 15:06; Status DC Dextrose/Sodium Chloride (Iv D5% - 1/2 NS) 1,000 ml @ 50 mls/hr Q20H IV Last administered on 10/17/16 00:16; Start 10/13/16 at 11:00; Stop 10/17/16 at 12:23 ; Status DC Ondansetron HCl (Zofran) 4 mg PRN Q6HRS PRN IV Nausea 1ST CHOICE; Start at 12:30; Stop 10/14/16 at 11:07; Status DC Fentanyl Citrate (Fentanyl 2ml Vial) 25 mcg PRN Q5MIN PRN IV MILD PAIN; Start 10/13/16 at 12:30; Stop 10/14/16 at 11:04; Status DC Fentanyl Citrate (Fentanyl 2ml Vial) 50 mcg PRN Q5MIN PRN IV MODERATE PAIN; Start 10/13/16 at 12:30; Stop 10/14/16 at 11:04; Status DC Morphine Sulfate 1 mg 1 mg PRN Q10MIN PRN IV SEVERE PAIN; Start 10/13/16 at 12: 30; Stop 10/14/16 at 11:00; Status DC Lactated Ringer's (Iv Lactated Ringers) 1,000 ml @ 0 mls/hr Q0M IV ; Start 10/13 at 12:17; Stop 10/14/16 at 00:16; Status DC Lidocaine HCl 2 ml 1X PRN PRN ID IV START; Start 10/13/16 at 12:30; Stop at 16:03; Status DC Hydromorphone HCl (Dilaudid) 0.5 mg PRN Q10MIN PRN IV SEV PAIN,Second choice; Start 10/13/16 at 12:30; Stop 10/14/16 at 11:04; Status DC Prochlorperazine Edisylate (Compazine) 5 mg PACU PRN PRN IV NAUSEA; Start at 12:30; Stop 10/14/16 at 11:00; Status DC Fentanyl Citrate (Fentanyl 2ml Vial) 50 mcg PRN Q5MIN PRN IV Acute Pain Last administered on 10/14/16t 10:04; Start 10/13/16 at 13:00; Stop 10/14/16 at 11:04 ; Status DC Morphine Sulfate 4 mg PRN Q10MIN PRN IV Moderate Pain; Start 10/13/16 at 13:00; Stop 10/14/16 at 11:00; Status DC Hydromorphone HCl (Dilaudid) 0.4 mg PRN Q10MIN PRN IV Moderate to severe pain; Start 10/13/16 at 13:00; Stop 10/14/16 at 11:04; Status DC Meperidine HCl (Demerol) 12.5 mg PRN Q5MIN PRN IV SHIVERING; Start 10/13/16 at 13:00; Stop 10/14/16 at 11:00; Status DC Prochlorperazine Edisylate (Compazine) 5 mg PRN Q6HRS PRN IV Nausea/Vomiting, 1st Choice; Start 10/13/16 at 13:00; Stop 10/14/16 at 11:00; Status DC Diphenhydramine HCl (Benadryl) 12.5 mg PRN Q2HR PRN IV ITCHING; Start 10/13/16 at 13:00; Stop 10/14/16 at 11:00; Status DC Midazolam HCl (Versed) 2 mg PRN 1X PRN IV PRIOR TO PROCEDURE; Start 10/13/16 at 13:00; Stop 10/14/16 at 11:07; Status DC Midazolam HCl (Versed) 1 mg PRN 1X PRN IV PRIOR TO PROCEDURE; Start 10/13/16 at 13:00; Stop 10/14/16 at 11:07; Status DC Fentanyl Citrate (Fentanyl 2ml Vial) 25 mcg PRN Q5MIN PRN IV X 2 DOSES FOR PAIN ; Start 10/13/16 at 13:00; Stop 10/14/16 at 11:04; Status DC Fentanyl Citrate 50 mcg 50 mcg PRN Q5MIN PRN IV X 2 DOSES FOR PAIN; Start at 13:00; Stop 10/14/16 at 11:04; Status DC Lactated Ringer's (Iv Lactated Ringers) 1,000 ml @ 125 mls/hr Q8H IV Last administered on 10/13/16t 13:30; Start 10/13/16 at 12:48; Stop 10/14/16 at 00:47; Status DC Lidocaine HCl 2 ml 1X PRN PRN ID IV START; Start 10/13/16 at 13:00; Stop at 16:03; Status DC Fentanyl Citrate (Fentanyl 2ml Vial) 25 mcg PRN Q2HR PRN IV PAIN MOD TO SEV; Start 10/13/16 at 20:30; Stop 10/14/16 at 14:15; Status DC Fentanyl Citrate (Fentanyl 2ml Vial) 50 mcg PRN Q2HR PRN IV PAIN MOD TO SEV Last administered on 10/14/16t 12:02; Start 10/13/16 at 20:30; Stop 10/14/16 at 14:15; Status DC Enoxaparin Sodium (Lovenox 40mg Syringe) 40 mg Q24H SQ Last administered on t 09:18; Start 10/14/16 at 09:00; Stop 10/27/16 at 06:34; Status DC Fentanyl Citrate 100 mcg 100 mcg STK-MED ONCE .ROUTE ; Start 10/13/16 at 13:27; Stop 10/14/16 at 07:31; Status DC Propofol (Diprivan) 20 ml @ As Directed STK-MED ONCE IV ; Start 10/13/16 at 13:27 ; Stop 10/14/16 at 07:31; Status DC Rocuronium [place] (Zemuron) 50 mg STK-MED ONCE .ROUTE ; Start 10/13/16 at 13:27 ; Stop 10/14/16 at 07:31; Status DC Lidocaine HCl 100 mg STK-MED ONCE .ROUTE ; Start 10/13/16 at 13:27; Stop at 07:31; Status DC Fentanyl Citrate (Fentanyl 2ml Vial) 100 mcg STK-MED ONCE .ROUTE ; Start at 13:27; Stop 10/14/16 at 07:31; Status DC Ephedrine Sulfate (Akovaz) 50 mg STK-MED ONCE .ROUTE ; Start 10/13/16 at 14:00; Stop 10/14/16 at 07:31; Status DC Phenylephrine HCl 1 mg STK-MED ONCE IV ; Start 10/13/16 at 14:25; Stop 10/14/16 at 07:31; Status DC Desflurane (Suprane) 60 ml STK-MED ONCE IH ; Start 10/13/16 at 14:25; Stop at 07:31; Status DC Dexamethasone Sodium Phosphate (Decadron) 20 mg STK-MED ONCE .ROUTE ; Start 10/13 at 14:25; Stop 10/14/16 at 07:31; Status DC Ondansetron HCl (Zofran) 4 mg STK-MED ONCE .ROUTE ; Start 10/13/16 at 14:25; Stop 10/14/16 at 07:31; Status DC Famotidine (Pepcid) 20 mg STK-MED ONCE .ROUTE ; Start 10/13/16 at 14:25; Stop 07/21 at 07:31; Status DC Rocuronium [place] (Zemuron) 50 mg STK-MED ONCE .ROUTE ; Start 10/13/16 at 16:19 ; Stop 10/14/16 at 07:31; Status DC Fentanyl Citrate (Fentanyl 2ml Vial) 100 mcg STK-MED ONCE .ROUTE ; Start at 16:21; Stop 10/14/16 at 07:31; Status DC Desflurane (Suprane) 90 ml STK-MED ONCE IH ; Start 10/13/16 at 16:53; Stop at 07:31; Status DC Glycopyrrolate (Robinul) 1 mg STK-MED ONCE .ROUTE ; Start 10/13/16 at 17:00; Stop 10/14/16 at 07:31; Status DC Neostigmine Methylsulfate 5 mg STK-MED ONCE .ROUTE ; Start 10/13/16 at 17:00; Stop 10/14/16 at 07:31; Status DC Phenylephrine HCl 1 mg STK-MED ONCE IV ; Start 10/13/16 at 18:14; Stop 10/14/16 at 07:31; Status DC Fentanyl Citrate (Fentanyl 2ml Vial) 100 mcg STK-MED ONCE .ROUTE ; Start at 18:20; Stop 10/14/16 at 07:31; Status DC Fentanyl Citrate 100 mcg 100 mcg STK-MED ONCE .ROUTE ; Start 10/13/16 at 19:17; Stop 10/14/16 at 07:31; Status DC Levetiracetam 500 mg/Sodium Chloride 105 ml @ 400 mls/hr Q12HR IV Last administered on 10/29/16 20:28; Start 10/14/16 at 09:00 Amino Acids/ Glycerin/ Electrolytes (Procalamine) 1,000 ml @ 80 mls/hr [id number] IV Last administered on 10/16/16 09:16; Start 10/14/16 at 11:15; Stop at 21:59; Status DC Morphine Sulfate 2 mg PRN Q4HRS PRN IV MODERATE PAIN Last administered on 00:57; Start 10/14/16 at 14:15; Stop 10/27/16 at 12:52; Status DC Morphine Sulfate 4 mg PRN Q4HRS PRN IV SEVERE PAIN Last administered on 08:04; Start 10/14/16 at 14:30 Info 1 each 1 each PRN DAILY PRN MC SEE COMMENTS Last administered on 10:32; Start 10/16/16 at 11:30; Stop 10/28/16 at 10:48; Status DC Sodium Chloride/ Potassium Chloride/ Potassium Phosphate/ Magnesium Sulfate/ Calcium Gluconate/ Multivitamins/ Minerals/Chromium/ Copper/Manganese/ Seleni/Zn /Total Parenteral Nutrition/Amino Acids/Dextrose/ Fat Emulsion Intravenous ( Sodium Chloride/ Potassium Phospha... 1,512 ml @ 63 mls/hr TPN CONT IV ; Start 10/16/16 at 22:00; Stop 10/17/16 at 12:50; Status DC Lidocaine/Sodium Bicarbonate 20 ml 20 ml STK-MED ONCE IJ ; Start 10/17/16 at 08: 20; Stop 10/17/16 at 08:21; Status DC Heparin Sodium/ Sodium Chloride 500 ml @ As Directed STK-MED ONCE .ROUTE ; Start 10/17/16 at 08:20; Stop 10/17/16 at 08:21; Status DC Lidocaine/Sodium Bicarbonate (Buffered Lidocaine 1%) 3 ml 1X ONCE IJ Last administered on 10/17/16 08:30; Start 10/17/16 at 08:30; Stop 10/17/16 at 08:31 ; Status DC Heparin Sodium/ Sodium Chloride 60 unit 1X ONCE IV Last administered on 08:30; Start 10/17/16 at 08:30; Stop 10/17/16 at 08:31; Status DC Iohexol (Omnipaque 300 Mg/ml) 50 ml STK-MED ONCE .ROUTE ; Start 10/17/16 at 09: 02; Stop 10/17/16 at 09:03; Status DC Iohexol (Omnipaque 300 Mg/ml) 43 ml 1X ONCE IART Last administered on 08:45; Start 10/17/16 at 09:30; Stop 10/17/16 at 09:33; Status DC Info (Do NOT chart on this entry -- for MONITORING) 1 each PRN DAILY PRN MC SEE COMMENTS; Start 10/17/16 at 09:45; Stop 10/19/16 at 09:44; Status DC Clonidine HCl (Catapres Tts-2) 1 patch WEEKLY TD Last administered on 09:12; Start 10/17/16 at 11:00; Stop 10/26/16 at 09:54; Status DC Labetalol HCl 20 mg 20 mg PRN Q6HRS PRN IVP HYPERTENSION, 1ST CHOICE Last administered on 10/26/16 17:55; Start 10/17/16 at 10:30 Sodium Chloride 1,000 ml @ 60 mls/hr [id number] IV Last administered on 06:32; Start 10/17/16 at 12:30; Stop 10/19/16 at 10:06; Status DC Sodium Chloride 90 meq/Potassium Chloride 50 meq/ Potassium Phosphate 13.6 mmol/ Magnesium Sulfate 10 meq/ Calcium Gluconate 10 meq/ Multivitamins/ Minerals 10 ml/ Chromium/Copper/ Manganese/Seleni/ Zn 1 ml/Total Parenteral Nutrition/Amino Acids/Dextrose/ Fat Emulsion Intravenous 1,512 ml @ 63 mls/hr TPN CONT IV Last administered on 10/17/16 21:09; Start 10/17/16 at 22:00; Stop 10/18/16 at 21:59; Status DC Sodium Chloride/ Potassium Chloride/ Potassium Phosphate/ Magnesium Sulfate/ Calcium Gluconate/ Multivitamins/ Minerals/Chromium/ Copper/Manganese/ Seleni/Zn /Total Parenteral Nutrition/Amino Acids/Dextrose/ Fat Emulsion Intravenous ( Sodium Chloride/ Potassium Phospha... 1,512 ml @ 63 mls/hr TPN CONT IV Last administered on 10/18/16 21:24; Start 10/18/16 at 22:00; Stop 10/19/16 at 21:59 ; Status DC Furosemide 20 mg 20 mg 1X ONCE IVP Last administered on 10/19/16 11:01; Start 10/19/16 at 10:30; Stop 10/19/16 at 10:31; Status DC Sodium Chloride 90 meq/Sodium Acetate 40 meq/ Potassium Chloride 50 meq/ Potassium Phosphate 13.6 mmol/Magnesium Sulfate 10 meq/ Calcium Gluconate 10 meq / Multivitamins/ Minerals 10 ml/ Chromium/Copper/ Manganese/Seleni/ Zn 1 ml/ Total Parenteral Nutrition/Amino Acids/Dextro... 1,920 ml @ 80 mls/hr TPN CONT IV Last administered on 10/19/16 22:29; Start 10/19/16 at 22:00; Stop at 21:59; Status DC Sodium Chloride 1,000 ml @ 45 mls/hr [id number] IV Last administered on 22:24; Start 10/20/16 at 09:00; Stop 10/21/16 at 09:26; Status DC Magnesium Sulfate/ Dextrose 50 ml @ 25 mls/hr PRN DAILY PRN IV for Mag < 1.7 on am labs; Start 10/20/16 at 13:15 Sodium Chloride/ Sodium Acetate/ Potassium Chloride/ Potassium Phosphate/ Magnesium Sulfate/ Calcium Gluconate/ Multivitamins/ Minerals/Chromium/ Copper/ Manganese/ Seleni/Zn/Total Parenteral Nutrition/Amino Acids/Dextrose/ Fat Emulsion Intravenous (Sodium Chloride/ Potass... 1,920 ml @ 80 mls/hr TPN CONT IV Last administered on 10/20/16 22:23; Start 10/20/16 at 22:00; Stop at 21:59; Status DC Acetaminophen/ Hydrocodone Bitart 1 tab 1 tab PRN Q4HRS PRN PO PAIN Last administered on 10/21/16 23:51; Start 10/21/16 at 09:30; Stop 10/22/16 at 10:39 ; Status DC Sodium Chloride/ Sodium Acetate/ Potassium Chloride/ Potassium Phosphate/ Magnesium Sulfate/ Calcium Gluconate/ Multivitamins/ Minerals/Chromium/ Copper/ Manganese/ Seleni/Zn/Total Parenteral Nutrition/Amino Acids/Dextrose/ Fat Emulsion Intravenous (Sodium Chloride/ Potass... 1,920 ml @ 80 mls/hr TPN CONT IV Last administered on 10/21/16 22:22; Start 10/21/16 at 22:00; Stop at 21:59; Status DC Metoclopramide HCl (Reglan) 10 mg 1X ONCE IV Last administered on 10/22/16 01 :56; Start 10/22/16 at 02:00; Stop 10/22/16 at 02:01; Status DC Lorazepam (Ativan) 1 mg 1X ONCE IV Last administered on 10/22/16 02:35; Start 10/22/16 at 02:30; Stop 10/22/16 at 02:31; Status DC Morphine Sulfate 2 mg PRN Q1HR PRN IV CHEST PAIN Last administered on 04:55; Start 10/22/16 at 02:30; Stop 10/30/16 at 08:24; Status DC Famotidine (Pepcid) 20 mg 1X ONCE IVP Last administered on 10/22/16 02:35; Start 10/22/16 at 02:30; Stop 10/22/16 at 02:31; Status DC Hydralazine HCl (Apresoline) 10 mg PRN Q6HRS PRN IVP ELEVATED BP, SEE COMMENTS Last administered on 10/30/16 00:12; Start 10/22/16 at 10:45 Iohexol (Omnipaque 300 Mg/ml) 60 ml 1X ONCE PO Last administered on 10/22/16 11:43; Start 10/22/16 at 11:00; Stop 10/22/16 at 11:01; Status DC Iohexol (Omnipaque 300 Mg/ml) 60 ml 1X ONCE IV Last administered on 10/22/16 11:19; Start 10/22/16 at 11:00; Stop 10/22/16 at 11:01; Status DC Info 1 each 1 each PRN DAILY PRN MC SEE COMMENTS; Start 10/22/16 at 11:00; Stop 10/24/16 at 10:59; Status DC Sodium Chloride 50 meq/Sodium Acetate 80 meq/ Potassium Chloride 50 meq/ Potassium Phosphate 18 mmol/ Magnesium Sulfate 10 meq/Calcium Gluconate 10 meq/ Multivitamins/ Minerals 10 ml/ Chromium/Copper/ Manganese/Seleni/ Zn 1 ml/Total Parenteral Nutrition/Amino Acids/Dextrose/ Fat Emuls... 1,920 ml @ 80 mls/hr TPN CONT IV Last administered on 10/22/16 21:46; Start 10/22/16 at 22:00; Stop 10/23/16 at 21:59; Status DC Levothyroxine Sodium/Sodium Chloride (Synthroid/Iv Sodium Chloride 0.9% 50ml) 5 ml @ 100 mls/hr DAILY IVP Last administered on 10/29/16 09:04; Start 10/23/16 at 14:00 Furosemide (Lasix) 20 mg 1X ONCE IVP Last administered on 10/23/16 12:45; Start 10/23/16 at 12:30; Stop 10/23/16 at 12:31; Status DC Alteplase, Recombinant 2 mg 2 mg 1X ONCE INT CAT Last administered on 12:45; Start 10/23/16 at 12:30; Stop 10/23/16 at 12:31; Status DC Sodium Chloride/ Sodium Acetate/ Potassium Chloride/ Potassium Phosphate/ Magnesium Sulfate/ Calcium Gluconate/ Multivitamins/ Minerals/Chromium/ Copper/ Manganese/ Seleni/Zn/Total Parenteral Nutrition/Amino Acids/Dextrose/ Fat Emulsion Intravenous (Sodium Chloride/ Potass... 1,920 ml @ 80 mls/hr TPN CONT IV Last administered on 10/23/16 21:37; Start 10/23/16 at 22:00; Stop at 21:59; Status DC Acetaminophen 650 mg 650 mg PRN Q6HRS PRN [facility] MILD PAIN / TEMP Last administered on 10/23/16 23:09; Start 10/23/16 at 23:00; Stop 10/26/16 at 10:04 ; Status DC Potassium Chloride/Dextrose/ Sod Cl 1,000 ml @ 80 mls/hr [id number] IV Last administered on 10/24/16 10:08; Start 10/24/16 at 09:30; Stop 10/24/16 at 13:58 ; Status DC Sodium Chloride 50 meq/Sodium Acetate 80 meq/ Potassium Chloride 50 meq/ Potassium Phosphate 18 mmol/ Magnesium Sulfate 10 meq/Calcium Gluconate 10 meq/ Multivitamins/ Minerals 10 ml/ Chromium/Copper/ Manganese/Seleni/ Zn 1 ml/Total Parenteral Nutrition/Amino Acids/Dextrose/ Fat Emuls... 1,920 ml @ 80 mls/hr TPN CONT IV Last administered on 10/24/16 22:10; Start 10/24/16 at 22:00; Stop 10/25/16 at 21:59; Status DC Sodium Chloride (Iv Sodium Chloride 0.45%) 1,000 ml @ 45 mls/hr [id number] IV Last administered on 10/24/16 14:00; Start 10/24/16 at 14:00; Stop 10/25/16 at 11:47; Status DC Albuterol/ Ipratropium (Duoneb) 3 ml RTQID NEB Last administered on 10/30/16 08:16; Start 10/25/16 at 12:00 Albuterol Sulfate (Ventolin Neb Soln) 2.5 mg PRN Q4HRS PRN NEB SOA; Start 10/25 at 12:00 Furosemide 40 mg 40 mg 1X ONCE IVP Last administered on 10/25/16 13:49; Start 10/25/16 at 11:45; Stop 10/25/16 at 11:53; Status DC Sodium Chloride 50 meq/Sodium Acetate 80 meq/ Potassium Chloride 50 meq/ Potassium Phosphate 18 mmol/ Magnesium Sulfate 10 meq/Calcium Gluconate 10 meq/ Multivitamins/ Minerals 10 ml/ Chromium/Copper/ Manganese/Seleni/ Zn 1 ml/Total Parenteral Nutrition/Amino Acids/Dextrose/ Fat Emuls... 1,920 ml @ 80 mls/hr TPN CONT IV Last administered on 10/25/16 21:06; Start 10/25/16 at 22:00; Stop 10/26/16 at 21:59; Status DC Albumin Human (Albuminar) 100 ml @ 100 mls/hr 1X ONCE IV Last administered on 10/25/16 18:19; Start 10/25/16 at 16:45; Stop 10/25/16 at 17:44; Status DC Furosemide 40 mg 40 mg 1X ONCE IVP Last administered on 10/25/16 18:24; Start 10/25/16 at 16:45; Stop 10/25/16 at 16:46; Status DC Piperacillin Sod/ Tazobactam Sod 3.375 gm/Sodium Chloride 50 ml @ 100 mls/hr Q8HRS IV Last administered on 10/30/16 05:04; Start 10/26/16 at 10:00; Stop at 07:15; Status DC Linezolid (Zyvox Premix) 300 ml @ 300 mls/hr Q12HR IV Last administered on 08:04; Start 10/26/16 at 10:00 Bisacodyl 10 mg 10 mg 1X ONCE [facility] Last administered on 10/27/16 09:11; Start 10/26/16 at 10:00; Stop 10/26/16 at 10:02; Status DC Sodium Chloride (Iv Sodium Chloride 0.45%) 1,000 ml @ 45 mls/hr [id number] IV Last administered on 10/27/16 09:11; Start 10/26/16 at 10:00; Stop 10/28/16 at 10:07; Status DC Acetaminophen 650 mg 650 mg PRN Q6HRS PRN [facility] MILD PAIN / TEMP Last administered on 10/28/16 20:02; Start 10/26/16 at 10:00 Sodium Chloride 50 meq/Sodium Acetate 80 meq/ Potassium Chloride 50 meq/ Potassium Phosphate 18 mmol/ Magnesium Sulfate 10 meq/Calcium Gluconate 10 meq/ Multivitamins/ Minerals 10 ml/ Chromium/Copper/ Manganese/Seleni/ Zn 1 ml/Total Parenteral Nutrition/Amino Acids/Dextrose/ Fat Emuls... 1,920 ml @ 80 mls/hr TPN CONT IV Last administered on 10/26/16 22:02; Start 10/26/16 at 22:00; Stop 10/27/16 at 21:59; Status DC Micafungin Sodium/ Dextrose (Mycamine) 100 ml @ 100 mls/hr Q24H IV Last administered on 10/29/16 20:29; Start 10/26/16 at 21:00 Morphine Sulfate 2 mg 2 mg PRN Q4HRS PRN IV MODERATE PAIN Last administered on 10/28/16 01:36; Start 10/27/16 at 13:00 Sodium Chloride/ Sodium Acetate/ Potassium Chloride/ Potassium Phosphate/ Magnesium Sulfate/ Calcium Gluconate/ Multivitamins/ Minerals/Chromium/ Copper/ Manganese/ Seleni/Zn/Total Parenteral Nutrition/Amino Acids/Dextrose/ Fat Emulsion Intravenous (Sodium Chloride/ Potass... 1,920 ml @ 80 mls/hr TPN CONT IV Last administered on 10/27/16 22:51; Start 10/27/16 at 22:00; Stop at 21:59; Status DC Diphenhydramine HCl (Benadryl) 25 mg 1X ONCE IM Last administered on 14:08; Start 10/27/16 at 14:30; Stop 10/27/16 at 14:31; Status DC Furosemide (Lasix) 20 mg 1X ONCE IVP Last administered on 10/28/16 08:15; Start 10/28/16 at 08:00; Stop 10/28/16 at 08:01; Status DC Furosemide 40 mg 40 mg 1X ONCE IVP ; Start 10/28/16 at 10:00; Stop 10/28/16 at 10:01; Status DC Sodium Chloride 50 meq/Sodium Acetate 60 meq/ Sodium Phosphate 18 mmol/ Magnesium Sulfate 10 meq/ Calcium Gluconate 6 meq/ Multivitamins/ Minerals 10 ml / Chromium/Copper/ Manganese/Seleni/ Zn 1 ml/Total Parenteral Nutrition/Amino Acids/Dextrose/ Fat Emulsion Intravenous 1,080 ml @ 45 mls/hr TPN CONT IV Last administered on 10/28/16 22:54; Start 10/28/16 at 22:00; Stop 10/29/16 at 21:59; Status DC Dextrose/Sodium Chloride (Iv D5% - 1/2 NS) 1,000 ml @ 75 mls/hr [id number] IV ; Start 10/28/16 at 11:00; Stop 10/28/16 at 11:12; Status DC Furosemide (Lasix) 40 mg 1X ONCE IVP ; Start 10/28/16 at 11:00; Stop 10/28/16 at 11:01; Status DC Info 1 each PRN DAILY PRN MC SEE COMMENTS Last administered on 10/29/16 11:25 ; Start 10/28/16 at 11:15 Furosemide 40 mg 40 mg 1X ONCE IVP Last administered on 10/29/16 11:10; Start 10/29/16 at 10:00; Stop 10/29/16 at 10:01; Status DC Sodium Chloride 50 meq/Sodium Acetate 60 meq/ Sodium Phosphate 18 mmol/ Magnesium Sulfate 10 meq/ Calcium Gluconate 6 meq/ Multivitamins/ Minerals 10 ml / Chromium/Copper/ Manganese/Seleni/ Zn 1 ml/Total Parenteral Nutrition/Amino Acids/Dextrose/ Fat Emulsion Intravenous 1,200 ml @ 50 mls/hr TPN CONT IV Last administered on 10/29/16 22:10; Start 10/29/16 at 22:00; Stop 10/30/16 at 21:59 Meropenem/Sodium Chloride (Merrem/Iv Sodium Chloride 0.9% 50ml) 50 ml @ 100 mls /hr Q6HRS IV ; Start 10/30/16 at 07:30 Active Scripts Active Hydrocodone-Apap 5-325 (Hydrocodone Bit/Acetaminophen) 1 Each Tablet 1 Tab PO PRN Q6HRS PRN Metoprolol Succinate ( Xl ) (Metoprolol Succinate) 25 Mg Tab.er.24h 25 Mg PO DAILY Reported Flomax (Tamsulosin Hcl) 0.4 Mg Cap.er.24h 1 Cap PO QHS Tramadol Hcl 100 Mg Tab.er.24h 100 Mg PO QID Levetiracetam 250 Mg Tablet 250 Mg PO BID Dulcolax (Bisacodyl) 10 Mg Supp.rect 10 Mg RC PRN DAILY PRN Maalox Advanced Suspension (Mag Hydrox/Al Hydrox/Simeth) 770 Ml Oral.susp 30 Ml PO Q2HR PRN Milk Of Magnesia (Magnesium Hydroxide) 400 Mg/5 Ml Oral.susp 30 Ml PO DAILY PRN Robitussin Cough-Chest Dm Liq (Guaifenesin/Dextromethorphan) 118 Ml Liquid 10 Ml PO Q4HRS PRN Trazodone Hcl 50 Mg Tablet 1 Tab PO QHS Tylenol (Acetaminophen) 325 Mg Tablet 650 Mg PO Q6HRS PRN Pramipexole Dihydrochloride (Pramipexole Di-Hcl) 0.5 Mg Tablet 0.5 Mg PO TID Simvastatin 20 Mg Tablet 1 Tab PO QHS Levothyroxine Sodium 100 Mcg Tablet 1 Tab PO DAILY Gabapentin 800 Mg Tablet 800 Mg PO QID Sinemet 25-100 Mg Tablet (Carbidopa/Levodopa) 1 Each Tablet 2 Tab PO TID Aspirin 81 Mg Tab.chew 1 Tab PO DAILY Vitals/I & O Vital Sign - Last 24 Hours 10/29/16 10/29/16 10/29/16 10/29/16 10:00 11:00 12:00 12:00 Pulse 76 80 Resp 17 B/P 133/65 119/63 Pulse Ox 100 100 O2 Delivery BiPAP/CPAP BiPAP/CPAP Bi-pap O2 Flow Rate 6.0 6.0 10/29/16 10/29/16 10/29/16 10/29/16 12:00 12:09 13:00 14:00 Pulse 81 88 94 Resp 19 16 21 B/P 128/69 138/74 115/69 Pulse Ox 100 100 99 93 O2 Delivery BiPAP/CPAP Venturi Mask BiPAP/CPAP BiPAP/CPAP O2 Flow Rate 15.0 1/25/17 10/29/16 10/29/16 10/29/16 15:00 15:31 16:00 16:00 Pulse 98 79 Resp 21 22 B/P 161/80 140/76 Pulse Ox 95 100 86 O2 Delivery BiPAP/CPAP BiPAP/CPAP Bi-pap BiPAP/CPAP O2 Flow Rate 6.0 10/29/16 10/29/16 10/29/16 10/29/16 17:00 18:00 18:55 19:00 Pulse 92 84 85 Resp 33 25 22 19 B/P 143/75 142/75 144/74 Pulse Ox 94 100 100 100 O2 Delivery BiPAP/CPAP BiPAP/CPAP Venturi Mask Venturi Mask O2 Flow Rate 15.0 15.0 10/29/16 10/29/16 10/29/16 10/29/16 19:29 20:00 20:00 20:00 Temp 99.1 99.1 Pulse 76 Resp 25 B/P 136/66 Pulse Ox 100 92 O2 Delivery BiPAP/CPAP BiPAP/CPAP Bi-pap O2 Flow Rate 15.0 10/29/16 10/29/16 10/29/16 10/29/16 21:00 22:00 22:47 23:00 Pulse 82 98 99 Resp 21 22 32 25 B/P 137/71 147/74 186/80 Pulse Ox 92 93 90 96 O2 Delivery Venturi Mask BiPAP/CPAP BiPAP/CPAP O2 Flow Rate 12.0 10/29/16 10/30/16 10/30/16 10/30/16 23:10 00:00 00:00 00:00 Temp 100.1 100.1 Pulse 104 Resp 25 B/P 164/77 Pulse Ox 96 98 O2 Delivery BiPAP/CPAP Bi-pap BiPAP/CPAP O2 Flow Rate 15.0 10/30/16 10/30/16 10/30/16 10/30/16 00:12 00:49 01:00 01:56 Pulse 96 107 Resp 30 29 25 B/P 179/80 155/59 Pulse Ox 94 97 96 O2 Delivery Venturi Mask 10/30/16 10/30/16 10/30/16 10/30/16 02:00 02:57 03:00 03:05 Pulse 107 104 Resp 29 30 22 B/P 159/72 143/67 Pulse Ox 98 100 100 100 O2 Delivery BiPAP/CPAP BiPAP/CPAP BiPAP/CPAP BiPAP/CPAP 1/26/17 1/26/17 1/26/17 1/26/17 04:00 04:00 04:00 04:55 Temp 100.3 100.3 Pulse 101 Resp 25 23 B/P 160/68 Pulse Ox 100 99 O2 Delivery BiPAP/CPAP Bi-pap BiPAP/CPAP O2 Flow Rate 15.0 10/30/16 10/30/16 10/30/16 10/30/16 04:55 05:00 05:09 06:00 Pulse 85 90 Resp 22 23 B/P 141/62 146/68 Pulse Ox 100 100 100 O2 Delivery BiPAP/CPAP BiPAP/CPAP BiPAP/CPAP BiPAP/CPAP 10/30/16 10/30/16 10/30/16 07:08 08:04 08:10 Resp 21 Pulse Ox 98 100 100 O2 Delivery BiPAP/CPAP BiPAP/CPAP Intake and Output 10/29/16 10/29/16 10/30/16 15:00 23:00 07:00 Intake Total 0 ml 2805 ml Output Total 1135 ml 1390 ml 695 ml Balance -1135 ml -1390 ml 2110 ml RICHARD [place] MD Oct 30, 2016 09:16
[2016-10-30] MEDS: LEVETIRACETAM 500 MG in IV NORMAL SALINE 100ML 100 ML IV SCH (09:28)
[2016-10-30] MEDS: LEVOTHYROXINE SODIUM 50 MCG in IV NORMAL SALINE 50ML 5 ML IVP SCH (09:31)
--- NOTE | 2016-10-30 09:57 | PDOC ---
Subjective: Subjective: Difficulty breathing, thinks needs back on BiPAP. Abd pain, passing gas. Objective: Vital Signs: Vital Signs Date Time Temp Pulse Resp B/P Pulse Ox O2 Delivery O2 Flow Rate FiO2 10/30/16 08:10 100 BiPAP/CPAP 10/30/16 07:08 21 10/30/16 06:00 90 146/68 10/30/16 04:00 100.3 100.3 10/30/16 04:00 15.0 Labs: Laboratory Tests Test 10/30/16 06:45 10/30/16 08:00 Sodium Level 139mmol/L Potassium Level 3.9mmol/L Chloride Level 102mmol/L Carbon Dioxide Level 30mmol/L Anion Gap 7 Blood Urea Nitrogen 24mg/dL Creatinine 1.4mg/dL Estimated GFR (Cockcroft-Gault) 48.2 Glucose Level 151mg/dL Calcium Level 7.7mg/dL O2 Saturation 97% Arterial Blood pH 7.41 Arterial Blood pCO2 at Patient Temp 47mmHg Arterial Blood pO2 at Patient Temp 92mmHg Arterial Blood HCO3 29mmol/L Arterial Blood Base Excess 3mmol/L FiO2 50 PE: GEN: NAD LUNGS: on venti mask, phlegmy cough HEART: tachycardic ABD: distended NEURO/PSYCH: A & O 3 A/P: Resp failure SBO, post-lap/CONG w/ prolonged ileus -- Other per Dr. Amin. GAYLA CLEMENTE Oct 30, 2016 09:57
[2016-10-30] MEDS: TPN PER PHARMACY MC PRN (10:20)
--- NOTE | 2016-10-30 10:35 | PDOC ---
PULMONARY PROGRESS NOTES Subjective Pt back on BIPAP Persistent atelectasis Vitals Vital Signs Date Time Temp Pulse Resp B/P Pulse Ox O2 Delivery O2 Flow Rate FiO2 10/30/16 08:10 100 BiPAP/CPAP 10/30/16 07:08 21 10/30/16 06:00 90 146/68 10/30/16 04:00 100.3 100.3 10/30/16 04:00 15.0 General: Mild Distress Lungs: Other (decrease bs) Cardiovascular: S1, S2 Abdomen: Soft Neuro Exam: Oriented Extremities: Other (2+ edema BL ) Skin: Warm, Dry Labs Laboratory Tests Test 10/28/16 11:00 10/29/16 05:15 10/30/16 06:45 10/30/16 08:00 O2 Saturation 98% (92-99) 97% (92-99) Arterial Blood pH 7.35 (7.35-7.45) 7.41 (7.35-7.45) Arterial Blood pCO2 at Patient Temp 51mmHg (35-46) 47mmHg (35-46) Arterial Blood pO2 at Patient Temp 135mmHg (65-108) 92mmHg (65-108) Arterial Blood HCO3 27mmol/L (21-28) 29mmol/L (21-28) Arterial Blood Base Excess 1mmol/L (-3-3) 3mmol/L (-3-3) FiO2 100 50 White Blood Count 6.7x10^3/uL (4.0-11.0) Red Blood Count 2.65x10^6/uL (4.30-5.70) Hemoglobin 8.1g/dL (13.0-17.5) Hematocrit 25.0% (39.0-53.0) Mean Corpuscular Volume 95fL (79-100) Mean Corpuscular Hemoglobin 31pg (25-35) Mean Corpuscular Hemoglobin Concent 33g/dL (31-37) Red Cell Distribution Width 17.1% (11.5-14.5) Platelet Count 230x10^3/uL (140-400) Neutrophils (%) (Auto) 71% (31-73) Lymphocytes (%) (Auto) 15% (24-48) Monocytes (%) (Auto) 11% (0-9) Eosinophils (%) (Auto) 3% (0-3) Basophils (%) (Auto) 0% (0-3) Neutrophils # (Auto) 4.8x10^3uL (1.8-7.7) Lymphocytes # (Auto) 1.0x10^3/uL (1.0-4.8) Monocytes # (Auto) 0.8x10^3/uL (0.0-1.1) Eosinophils # (Auto) 0.2x10^3/uL (0.0-0.7) Basophils # (Auto) 0.0x10^3/uL (0.0-0.2) Sodium Level 138mmol/L (136-145) 139mmol/L (136-145) Potassium Level 4.0mmol/L (3.5-5.1) 3.9mmol/L (3.5-5.1) Chloride Level 104mmol/L (98-107) 102mmol/L (98-107) Carbon Dioxide Level 28mmol/L (21-32) 30mmol/L (21-32) Anion Gap 6 (6-14) 7 (6-14) Blood Urea Nitrogen 25mg/dL (8-26) 24mg/dL (8-26) Creatinine 1.5mg/dL (0.7-1.3) 1.4mg/dL (0.7-1.3) Estimated GFR (Cockcroft-Gault) 44.5 48.2 BUN/Creatinine Ratio 17 (6-20) Glucose Level 157mg/dL (70-99) 151mg/dL (70-99) Calcium Level 8.0mg/dL (8.5-10.1) 7.7mg/dL (8.5-10.1) Phosphorus Level 3.3mg/dL (2.6-4.7) Magnesium Level 2.1mg/dL (1.8-2.4) Total Bilirubin 0.3mg/dL (0.2-1.0) Aspartate Amino Transf (AST/SGOT) 32U/L (15-37) Alanine Aminotransferase (ALT/SGPT) 37U/L (16-63) Alkaline Phosphatase 80U/L (46-116) Total Protein 5.9g/dL (6.4-8.2) Albumin 1.4g/dL (3.4-5.0) Albumin/Globulin Ratio 0.3 (1.0-1.7) Laboratory Tests Test 10/30/16 06:45 10/30/16 08:00 Sodium Level 139mmol/L (136-145) Potassium Level 3.9mmol/L (3.5-5.1) Chloride Level 102mmol/L (98-107) Carbon Dioxide Level 30mmol/L (21-32) Anion Gap 7 (6-14) Blood Urea Nitrogen 24mg/dL (8-26) Creatinine 1.4mg/dL (0.7-1.3) Estimated GFR (Cockcroft-Gault) 48.2 Glucose Level 151mg/dL (70-99) Calcium Level 7.7mg/dL (8.5-10.1) O2 Saturation 97% (92-99) Arterial Blood pH 7.41 (7.35-7.45) Arterial Blood pCO2 at Patient Temp 47mmHg (35-46) Arterial Blood pO2 at Patient Temp 92mmHg (65-108) Arterial Blood HCO3 29mmol/L (21-28) Arterial Blood Base Excess 3mmol/L (-3-3) FiO2 50 Medications Active Scripts Medications Dose Route/Sig Days Date Category Hydrocodone-Apap 5-325 (Hydrocodone Bit/Acetaminophen) 1 Each Tablet 1 Tab PO PRN Q6HRS PRN 08/28/16 Rx Flomax (Tamsulosin Hcl) 0.4 Mg Cap.er.24h 1 Cap PO QHS 01/01/16 Reported Tramadol Hcl 100 Mg Tab.er.24h 100 Mg PO QID 01/01/16 Reported Levetiracetam 250 Mg Tablet 250 Mg PO BID 01/01/16 Reported Dulcolax (Bisacodyl) 10 Mg Supp.rect 10 Mg RC PRN DAILY PRN 12/21/15 Reported Maalox Advanced Suspension (Mag Hydrox/Al Hydrox/Simeth) 770 Ml Oral.susp 30 Ml PO Q2HR PRN 12/21/15 Reported Milk Of Magnesia (Magnesium Hydroxide) 400 Mg/5 Ml Oral.susp 30 Ml PO DAILY PRN 12/21/15 Reported Robitussin Cough-Chest Dm Liq (Guaifenesin/Dextromethorphan) 118 Ml Liquid 10 Ml PO Q4HRS PRN 12/21/15 Reported Trazodone Hcl 50 Mg Tablet 1 Tab PO QHS 12/21/15 Reported Tylenol (Acetaminophen) 325 Mg Tablet 650 Mg PO Q6HRS PRN 12/21/15 Reported Pramipexole Dihydrochloride (Pramipexole Di-Hcl) 0.5 Mg Tablet 0.5 Mg PO TID 12/08/15 Reported Metoprolol Succinate ( Xl ) (Metoprolol Succinate) 25 Mg Tab.er.24h 25 Mg PO DAILY 12/06/15 Rx Simvastatin 20 Mg Tablet 1 Tab PO QHS 12/02/15 Reported Levothyroxine Sodium 100 Mcg Tablet 1 Tab PO DAILY 12/02/15 Reported Gabapentin 800 Mg Tablet 800 Mg PO QID 12/02/15 Reported Sinemet 25-100 Mg Tablet (Carbidopa/Levodopa) 1 Each Tablet 2 Tab PO TID 12/02/15 Reported Aspirin 81 Mg Tab.chew 1 Tab PO DAILY 12/02/15 Reported Comments CXR 10/28 LARGE LEFT MUCOUS PLUG CXR 10/29 Improved aeration left lung , increase atelectasis right lung CXR 10/30 persistent bilateral atelectasis Impression . - Acute Hypoxemic Respiratory Failure ,worse 10/28 due to large mucous plug left lung , improved with NIPPV but still with basal atelectasis - Small-bowel obstruction s/p exploratory laparotomy 10/13/16. - post op ileus - critical illness myopathy - Chronic kidney disease stage III - Seizure disorder. - Parkinson's disease. - Hypothyroidism. - Peripheral neuropathy. - Hypertension. - paroxysmal atrial fibrillation Plan . - Continue intermittent NIPPV - NTS prn - monitor in ICU closely - Monitor I/Os: and would continue gentle diuresis - Abx per ID - DNR/DNI - d/w patient if he is getting tired of being on BIPAP. We can always proceed with comfort care. will inform daughter ROXIE RINALDI MD Oct 30, 2016 10:35
--- NOTE | 2016-10-30 10:39 | PDOC ---
Renal-Progress Notes Subjective Notes Notes ON BIPAP History of Present Illness Hx of present illness NO BETTER Vitals Vitals Vital Signs Date Time Temp Pulse Resp B/P Pulse Ox O2 Delivery O2 Flow Rate FiO2 10/30/16 10:28 100 BiPAP/CPAP 10/30/16 07:08 21 10/30/16 06:00 90 146/68 10/30/16 04:00 100.3 100.3 10/30/16 04:00 15.0 Weight Weight [ ] I.O. Intake and Output Intake and Output 10/30/16 07:00 Intake Total 2805 ml Output Total 3220 ml Balance -415 ml Intake Oral 0 ml IV Total 2805 ml Output Urine Total 3220 ml Labs Labs Laboratory Tests Test 10/30/16 06:45 10/30/16 08:00 Sodium Level 139mmol/L (136-145) Potassium Level 3.9mmol/L (3.5-5.1) Chloride Level 102mmol/L (98-107) Carbon Dioxide Level 30mmol/L (21-32) Anion Gap 7 (6-14) Blood Urea Nitrogen 24mg/dL (8-26) Creatinine 1.4mg/dL (0.7-1.3) Estimated GFR (Cockcroft-Gault) 48.2 Glucose Level 151mg/dL (70-99) Calcium Level 7.7mg/dL (8.5-10.1) O2 Saturation 97% (92-99) Arterial Blood pH 7.41 (7.35-7.45) Arterial Blood pCO2 at Patient Temp 47mmHg (35-46) Arterial Blood pO2 at Patient Temp 92mmHg (65-108) Arterial Blood HCO3 29mmol/L (21-28) Arterial Blood Base Excess 3mmol/L (-3-3) FiO2 50 Micro Micro Microbiology 10/26/16 Blood Culture - Preliminary, Resulted NO GROWTH AFTER 3 DAYS 10/26/16 Gram Stain - Final, Complete 10/13/16 Urine Culture - Final, Complete 10/13/16 Urine Culture Result 1 (MANDEEP) - Final, Complete Review of Systems Constitutional: yes: no symptom reported Physical Exam General Appearance: no apparent distress Skin: warm Respiratory: bilateral CTA Heart: S1S2, RRR Abdomen: soft, bowel sounds present Extremities: pulses present Neurology: alert Assessment Assessment IMP RESP FAILURE-HYPERVOLEMIA TAYLOR-IMPROVED CKD STAGE 3 WITH CR OF 1.4-1.6 HYPERKALEMIA - RESOLVED SBO-NO RETURN OF BOWEL FUNCTION PLAN TPN IV LASIX DAILY VERY POOR PROGNOSIS NOT GETTING BETTER CONSIDER PALLIATIVE CARE TEAM EVALUATION WILL FOLLOW CONI GLYNN MD Oct 30, 2016 10:39
--- NOTE | 2016-10-30 13:17 | PDOC2 ---
PALLIATIVE CARE Palliative Care Note Palliative Care Patient alert and 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. Patient is able to verbalize his medical condition On oxygen per [place]. Continues to have persistent atelectasis. States he is "tired" and no longer wants to be on the BiPap. Wants to focus on comfort. "I'm ready to go" Understands without support of breathing with BiPap he likely will . Spoke with daughter Ananya. Reviewed current medical condition and acknowledges her father is "tired" and wants to be kept comfortable. Ananya would like to support his wishes. She will need time to notify family of changes in goals and give them opportunity to see him before making changes. Discussed stopping medications, procedures, labs, x-rays not adding to his comfort. Shelly is supportive of these goals. Discussed Hospice if patient is able to leave the hospital. Will continue to have more conversation. Daughter would like visit from Crew Team Member. Marcie NEIL will notify Dr. Arnett of patient and family wishes. ROXIE SANTIAGO Oct 30, 2016 13:17
[2016-10-30] MEDS ORDERED: MORPHINE SULFATE 2 MG/ML DISP.SYRIN. IV PRN (16:00)
[2016-10-30] MEDS ORDERED: LORAZEPAM 2 MG/ML VIAL IV PRN (16:00)
[2016-10-30] MEDS: LORAZEPAM 2 MG/ML VIAL IV PRN ×2 (16:46→22:42)
[2016-10-30] MEDS ORDERED: [UNRECOGNIZED DRUG - OTHER] IV SCH ×11 (22:00)
[2016-10-30] MEDS ORDERED: TOTAL PARENTERAL NUTRITION IV SCH ×11 (22:00)
[2016-10-30] MEDS ORDERED: DEXTROSE 70% IV SCH ×11 (22:00)
[2016-10-30] MEDS ORDERED: AMINO ACID IV SCH ×11 (22:00)
[2016-10-31] MEDS: MORPHINE SULFATE 4 MG/ML DISP.SYRIN. IV PRN ×2 (08:45→10:28)
[2016-10-31] MEDS ORDERED: FUROSEMIDE 40 MG/4 ML VIAL IVP SCH (09:00)
--- NOTE | 2016-10-31 09:08 | PDOC ---
PROGRESS NOTES Subjective Subjective seen by palliative care yesterday and patient and his daughter Ananya on ini agreement for comfort measures only. iv antibiotics and maintenance iv fluids and TPN discontinued. complains of pain and will start iv morphine drip for comfort. he has lots of edema in legs. Objective Objective Vital Signs Date Time Temp Pulse Resp B/P Pulse Ox O2 Delivery O2 Flow Rate FiO2 10/30/16 23:00 102.7 67 18 89 Nasal Cannula 2.0 102.7 10/30/16 19:00 115/72 Intake and Output 10/31/16 07:00 Intake Total 0 ml Output Total 2175 ml Balance -2175 ml Intake Oral 0 ml Output Urine Total 2175 ml Physical Exam Abdomen: Soft, Other (disteneded and obese and bowel sounds heard but decreased ) Heart: Normal S1, Normal S2 Extremities: Other (2 to 3 plus edma both legs) General: Alert HEENT: Atraumatic Lungs: Other (clear anteriorly) Neuro: Normal speech Psych/Mental Status: Mood NL Skin: No rashes Assessment Assessment Problems Medical Problems:Small-bowel obstruction resolved exploratory laparotomy 10/13/16. lysis of adhesions. bowel viable. post op ileus. prolonged 2. Seizure disorder. 3. Parkinson's disease. 4. Hypothyroidism. 5. Peripheral neuropathy. 6. Hypertension. 7. Chronic kidney disease stage III. klebsiella uti treated suspected gout synovitis resolved peripheral edema critical illness myopathy hematemesis once resolved paroxysmal atrial fibrillation. not a good candidate for anticoagulants acute hypoxic respiratory failure atelactasis MRSA and klebsiella in sputum large hiatal hernia LLL infiltrate with pleural effusion anemia (1) SBO (small bowel obstruction) Status: Acute Plan Plan of Care comfort measures only iv morphine drip for comfort patient expected to succumb consider hospice house Comment Review of Relevant I have reviewed the following items [place] (where applicable) has been applied. Labs Laboratory Tests Test 10/30/16 06:45 10/30/16 08:00 Sodium Level 139mmol/L (136-145) Potassium Level 3.9mmol/L (3.5-5.1) Chloride Level 102mmol/L (98-107) Carbon Dioxide Level 30mmol/L (21-32) Anion Gap 7 (6-14) Blood Urea Nitrogen 24mg/dL (8-26) Creatinine 1.4mg/dL (0.7-1.3) Estimated GFR (Cockcroft-Gault) 48.2 Glucose Level 151mg/dL (70-99) Calcium Level 7.7mg/dL (8.5-10.1) O2 Saturation 97% (92-99) Arterial Blood pH 7.41 (7.35-7.45) Arterial Blood pCO2 at Patient Temp 47mmHg (35-46) Arterial Blood pO2 at Patient Temp 92mmHg (65-108) Arterial Blood HCO3 29mmol/L (21-28) Arterial Blood Base Excess 3mmol/L (-3-3) FiO2 50 Microbiology 10/26/16 Blood Culture - Preliminary, Resulted NO GROWTH AFTER 4 DAYS 10/26/16 Gram Stain - Final, Complete 10/13/16 Urine Culture - Final, Complete 10/13/16 Urine Culture Result 1 (MANDEEP) - Final, Complete Medications Current Medications Fentanyl Citrate 50 mcg 50 mcg PRN Q15MIN PRN IV PAIN GREATER THAN 3/10 Last administered on 09/30/16at 19:35; Start 09/30/16 at 17:30; Stop 10/01/16 at 04 :24; Status DC Lactated Ringer's (Iv Lactated Ringers) 1,000 ml @ 100 mls/hr Q10H IV Last administered on 09/30/16at 19:35; Start 09/30/16 at 17:28; Stop 10/01/16 at 03 :27; Status DC Ondansetron HCl (Zofran) 4 mg 1X ONCE IV Last administered on 09/30/16at 17:44 ; Start 09/30/16 at 17:30; Stop 09/30/16 at 17:32; Status DC Fentanyl Citrate (Fentanyl 2ml Vial) 50 mcg 1X ONCE IV ; Start 09/30/16 at 19: 15; Stop 10/01/16 at 04:24; Status DC Ondansetron HCl (Zofran) 4 mg PRN Q8HRS PRN IV NAUSEA/VOMITING Last administered on 09/30/16at 22:07; Start 09/30/16 at 19:15; Stop 10/01/16 at 19 :14; Status DC Fentanyl Citrate 50 mcg 50 mcg PRN Q2HR PRN IV PAIN Last administered on at 16:54; Start 09/30/16 at 19:15; Stop 10/01/16 at 19:14; Status DC Sodium Chloride 1,000 ml @ 100 mls/hr Q10H IV ; Start 09/30/16 at 19:30; Stop 10/01/16 at 04:24; Status DC Potassium Chloride/Dextrose/ Sod Cl (KCl 20 Meq In D5W-1/2 NS) 1,000 ml @ 125 mls/hr Q8H IV Last administered on 10/04/16at 06:02; Start 09/30/16 at 20:00; Stop 10/04/16 at 10:21; Status DC Enoxaparin Sodium 40 mg 40 mg Q24H SQ Last administered on 10/13/16 08:14; Start 10/01/16 at 09:00; Stop 10/13/16 at 08:36; Status DC Levetiracetam/ Sodium Chloride (Keppra/Iv Sodium Chloride 0.9% 100ml) 105 ml @ 400 mls/hr Q12HR IV Last administered on 10/05/16 09:30; Start 09/30/16 at 21: 00; Stop 10/05/16 at 10:24; Status DC Morphine Sulfate 2 mg PRN Q4HRS PRN IV SEVERE PAIN Last administered on 10:13; Start 09/30/16 at 19:30; Stop 10/05/16 at 10:24; Status DC Acetaminophen (Tylenol) [address] MILD PAIN / TEMP; Start at 19:30; Stop 10/05/16 at 10:24; Status DC Ondansetron HCl (Zofran) 4 mg PRN Q6HRS PRN IV NAUSEA/VOMITING Last administered on 10/07/16 08:28; Start 09/30/16 at 19:30; Stop 10/09/16 at 12:08 ; Status DC Benzocaine (Hurricaine One) 1 spray STK-MED ONCE .ROUTE ; Start 09/30/16 at 19: 51; Stop 09/30/16 at 19:52; Status DC Morphine Sulfate 4 mg PRN Q4HRS PRN IV PAIN Last administered on 10/05/16 08:08 ; Start 10/01/16 at 20:00; Stop 10/05/16 at 10:24; Status DC Clonidine HCl 1 patch 1 patch WEEKLY TD Last administered on 10/03/16at 12:30; Start 10/03/16 at 10:00; Stop 10/05/16 at 10:24; Status DC Piperacillin Sod/ Tazobactam Sod/ Sodium Chloride (Zosyn/Iv Sodium Chloride 0.9 % 50ml) 50 ml @ 100 mls/hr Q6HRS IV Last administered on 10/09/16 06:26; Start 10/04/16 at 11:00; Stop 10/09/16 at 10:55; Status DC Vancomycin HCl 1 each 1 each PRN DAILY PRN MC SEE COMMENTS Last administered on 10/07/16 11:11; Start 10/04/16 at 10:15; Stop 10/07/16 at 11:28; Status DC Vancomycin HCl/ Sodium Chloride (Iv Sodium Chloride 0.9% 250ml) 250 ml @ 250 mls/hr Q24H IV ; Start 10/04/16 at 10:15; Status UNV Labetalol HCl (Normodyne) 20 mg PRN Q6HRS PRN IVP HYPERTENSION, SEE COMMENTS; Start 10/04/16 at 10:15; Stop 10/05/16 at 10:24; Status DC Hydralazine HCl 10 mg 10 mg PRN Q6HRS PRN IVP ELEVATED BP, SEE COMMENTS Last administered on 10/06/16 19:17; Start 10/04/16 at 10:15; Stop 10/12/16 at 10:40 ; Status DC Amino Acids/ Glycerin/ Electrolytes 1,000 ml @ 40 mls/hr Q24H IV Last administered on 10/06/16 09:59; Start 10/04/16 at 10:15; Stop 10/07/16 at 09:06 ; Status DC Vancomycin HCl 2 gm/Sodium Chloride 500 ml @ 250 mls/hr 1X ONCE IV Last administered on 10/04/16at 11:26; Start 10/04/16 at 10:45; Stop 10/04/16 at 12 :44; Status DC Vancomycin HCl/ Sodium Chloride (Iv Sodium Chloride 0.9% 500ml Bag) 500 ml @ 250 mls/hr Q24H IV Last administered on 10/06/16 11:47; Start 10/05/16 at 12:00 ; Stop 10/07/16 at 11:28; Status DC Vancomycin HCl 1 each 1X ONCE MC Last administered on 10/06/16 11:30; Start at 11:30; Stop 10/06/16 at 11:31; Status DC Aspirin (Children'S Aspirin) 81 mg [id number] PO Last administered on 10/13/16 08:15; Start 10/05/16 at 11:00; Stop 10/13/16 at 08:29; Status DC Gabapentin (Neurontin) 600 mg QID PO Last administered on 10/13/16 08:14; Start 10/05/16 at 13:00; Stop 10/14/16 at 08:47; Status DC Levetiracetam (Keppra) 250 mg BID PO Last administered on 10/13/16 08:17; Start 10/05/16 at 11:00; Stop 10/14/16 at 08:47; Status DC Levothyroxine Sodium (Synthroid) 100 mcg [id number] PO Last administered on 05:08; Start 10/05/16 at 10:30; Stop 10/14/16 at 08:48; Status DC Metoprolol Succinate (Toprol Xl) 25 mg DAILY PO Last administered on 10/13/16 08:16; Start 10/05/16 at 11:00; Stop 10/14/16 at 08:47; Status DC Pramipexole Dihydrochloride (miraPEX) 0.5 mg [id number] PO Last administered on 10/13 08:15; Start 10/05/16 at 11:00; Stop 10/14/16 at 08:48; Status DC Simvastatin (Zocor) 20 mg HS PO Last administered on 10/12/16 21:07; Start 10/05 at 21:00; Stop 10/14/16 at 08:48; Status DC Carbidopa/Levodopa (Sinemet Cr) 1 tab.sa TID PO Last administered on 10/13/16 08:16; Start 10/05/16 at 11:00; Stop 10/14/16 at 08:48; Status DC Tamsulosin HCl (Flomax) 0.4 mg QHS PO Last administered on 10/12/16 21:07; Start 10/05/16 at 21:00; Stop 10/14/16 at 08:48; Status DC Tramadol HCl (Ultram) 50 mg QID PO Last administered on 10/13/16 08:17; Start 10/05/16 at 13:00; Stop 10/14/16 at 08:48; Status DC Acetaminophen (Tylenol) 650 mg PRN Q4HRS PRN PO MILD PAIN / TEMP Last administered on 10/13/16 00:17; Start 10/05/16 at 10:15; Stop 10/14/16 at 08:48; Status DC Prednisone (Prednisone) 20 mg 1X ONCE PO Last administered on 10/06/16 11:01; Start 10/06/16 at 10:30; Stop 10/06/16 at 10:31; Status DC Prednisone (Prednisone) 10 mg DAILY08 PO Last administered on 10/13/16 08:15; Start 10/07/16 at 08:00; Stop 10/13/16 at 08:29; Status DC Al Hydroxide/Mg Hydroxide (Mylanta Plus Xs) 30 ml PRN Q4HRS PRN PO HEARTBURN / GAS Last administered on 10/12/16 21:07; Start 10/07/16 at 08:45; Stop 10/14/16 at 08:48; Status DC Pantoprazole Sodium (Protonix) 40 mg DAILYAC PO Last administered on 10/13/16 05:08; Start 10/07/16 at 10:00; Stop 10/13/16 at 06:45; Status DC Furosemide 40 mg 40 mg DAILY PO Last administered on 10/08/16 08:42; Start 10/07 at 10:00; Stop 10/08/16 at 08:56; Status DC Sodium Chloride (Iv Sodium Chloride 0.45%) 1,000 ml @ 60 mls/hr CONT PRN IV . ; Start 10/08/16 at 09:00; Stop 10/08/16 at 16:06; Status DC Bisacodyl 10 mg [address] Last administered on 10/08/16 10:11; Start at 09:30; Stop 10/08/16 at 09:31; Status DC Sodium Chloride (Iv Sodium Chloride 0.45%) 1,000 ml @ 60 mls/hr [id number] IV Last administered on 10/09/16 02:52; Start 10/08/16 at 10:15; Stop 10/09/16 at 12: 00; Status DC Cefpodoxime Proxetil (Vantin) 200 mg BID PO ; Start 10/09/16 at 11:00; Stop at 12:08; Status DC Cefpodoxime Proxetil (Vantin) 100 mg BID PO Last administered on 10/13/16 08:16 ; Start 10/09/16 at 21:00; Stop 10/13/16 at 08:29; Status DC Ondansetron HCl (Zofran) 4 mg STK-MED ONCE .ROUTE Last administered on 01:24; Start 10/13/16 at 01:19; Stop 10/13/16 at 01:20; Status DC Ondansetron HCl (Zofran) 4 mg PRN Q6HRS PRN IV NAUSEA/VOMITING Last administered on 10/27/16 00:39; Start 10/13/16 at 02:00; Stop 10/30/16 at 15:42 ; Status DC Pantoprazole Sodium 40 mg 40 mg DAILYAC IVP Last administered on 10/30/16 07: 30; Start 10/13/16 at 07:30; Stop 10/30/16 at 15:42; Status DC Dextrose/Sodium Chloride (Iv D5% - NS) 1,000 ml @ 60 mls/hr [id number] IV Last administered on 10/13/16 09:25; Start 10/13/16 at 08:30; Stop 10/13/16 at 11:01; Status DC Sodium Polystyrene Sulfonate 15 gm 15 gm 1X ONCE PO Last administered on 09:26; Start 10/13/16 at 08:30; Stop 10/13/16 at 08:31; Status DC Piperacillin Sod/ Tazobactam Sod 3.375 gm/Sodium Chloride 50 ml @ 100 mls/hr Q6HRS IV Last administered on 10/19/16 12:42; Start 10/13/16 at 09:00; Stop at 15:06; Status DC Dextrose/Sodium Chloride (Iv D5% - 1/2 NS) 1,000 ml @ 50 mls/hr Q20H IV Last administered on 1/13/17at 00:16; Start 10/13/16 at 11:00; Stop 10/17/16 at 12:23 ; Status DC Ondansetron HCl (Zofran) 4 mg PRN Q6HRS PRN IV Nausea 1ST CHOICE; Start at 12:30; Stop 10/14/16 at 11:07; Status DC Fentanyl Citrate (Fentanyl 2ml Vial) 25 mcg PRN Q5MIN PRN IV MILD PAIN; Start 10/13/16 at 12:30; Stop 10/14/16 at 11:04; Status DC Fentanyl Citrate (Fentanyl 2ml Vial) 50 mcg PRN Q5MIN PRN IV MODERATE PAIN; Start 10/13/16 at 12:30; Stop 10/14/16 at 11:04; Status DC Morphine Sulfate 1 mg 1 mg PRN Q10MIN PRN IV SEVERE PAIN; Start 10/13/16 at 12: 30; Stop 10/14/16 at 11:00; Status DC Lactated Ringer's (Iv Lactated Ringers) 1,000 ml @ 0 mls/hr Q0M IV ; Start 10/13 at 12:17; Stop 10/14/16 at 00:16; Status DC Lidocaine HCl 2 ml 1X PRN PRN ID IV START; Start 10/13/16 at 12:30; Stop at 16:03; Status DC Hydromorphone HCl (Dilaudid) 0.5 mg PRN Q10MIN PRN IV SEV PAIN,Second choice; Start 10/13/16 at 12:30; Stop 10/14/16 at 11:04; Status DC Prochlorperazine Edisylate (Compazine) 5 mg PACU PRN PRN IV NAUSEA; Start at 12:30; Stop 10/14/16 at 11:00; Status DC Fentanyl Citrate (Fentanyl 2ml Vial) 50 mcg PRN Q5MIN PRN IV Acute Pain Last administered on 10/14/16t 10:04; Start 10/13/16 at 13:00; Stop 10/14/16 at 11:04 ; Status DC Morphine Sulfate 4 mg PRN Q10MIN PRN IV Moderate Pain; Start 10/13/16 at 13:00; Stop 10/14/16 at 11:00; Status DC Hydromorphone HCl (Dilaudid) 0.4 mg PRN Q10MIN PRN IV Moderate to severe pain; Start 10/13/16 at 13:00; Stop 10/14/16 at 11:04; Status DC Meperidine HCl (Demerol) 12.5 mg PRN Q5MIN PRN IV SHIVERING; Start 10/13/16 at 13:00; Stop 10/14/16 at 11:00; Status DC Prochlorperazine Edisylate (Compazine) 5 mg PRN Q6HRS PRN IV Nausea/Vomiting, 1st Choice; Start 10/13/16 at 13:00; Stop 10/14/16 at 11:00; Status DC Diphenhydramine HCl (Benadryl) 12.5 mg PRN Q2HR PRN IV ITCHING; Start 10/13/16 at 13:00; Stop 10/14/16 at 11:00; Status DC Midazolam HCl (Versed) 2 mg PRN 1X PRN IV PRIOR TO PROCEDURE; Start 10/13/16 at 13:00; Stop 10/14/16 at 11:07; Status DC Midazolam HCl (Versed) 1 mg PRN 1X PRN IV PRIOR TO PROCEDURE; Start 10/13/16 at 13:00; Stop 10/14/16 at 11:07; Status DC Fentanyl Citrate (Fentanyl 2ml Vial) 25 mcg PRN Q5MIN PRN IV X 2 DOSES FOR PAIN ; Start 10/13/16 at 13:00; Stop 10/14/16 at 11:04; Status DC Fentanyl Citrate 50 mcg 50 mcg PRN Q5MIN PRN IV X 2 DOSES FOR PAIN; Start at 13:00; Stop 10/14/16 at 11:04; Status DC Lactated Ringer's (Iv Lactated Ringers) 1,000 ml @ 125 mls/hr Q8H IV Last administered on 10/13/16t 13:30; Start 10/13/16 at 12:48; Stop 10/14/16 at 00:47; Status DC Lidocaine HCl 2 ml 1X PRN PRN ID IV START; Start 10/13/16 at 13:00; Stop at 16:03; Status DC Fentanyl Citrate (Fentanyl 2ml Vial) 25 mcg PRN Q2HR PRN IV PAIN MOD TO SEV; Start 10/13/16 at 20:30; Stop 10/14/16 at 14:15; Status DC Fentanyl Citrate (Fentanyl 2ml Vial) 50 mcg PRN Q2HR PRN IV PAIN MOD TO SEV Last administered on 10/14/16t 12:02; Start 10/13/16 at 20:30; Stop 10/14/16 at 14:15; Status DC Enoxaparin Sodium (Lovenox 40mg Syringe) 40 mg Q24H SQ Last administered on 09:18; Start 10/14/16 at 09:00; Stop 10/27/16 at 06:34; Status DC Fentanyl Citrate 100 mcg 100 mcg STK-MED ONCE .ROUTE ; Start 10/13/16 at 13:27; Stop 10/14/16 at 07:31; Status DC Propofol (Diprivan) 20 ml @ As Directed STK-MED ONCE IV ; Start 10/13/16 at 13:27 ; Stop 10/14/16 at 07:31; Status DC Rocuronium [place] (Zemuron) 50 mg STK-MED ONCE .ROUTE ; Start 10/13/16 at 13:27 ; Stop 10/14/16 at 07:31; Status DC Lidocaine HCl 100 mg STK-MED ONCE .ROUTE ; Start 10/13/16 at 13:27; Stop at 07:31; Status DC Fentanyl Citrate (Fentanyl 2ml Vial) 100 mcg STK-MED ONCE .ROUTE ; Start at 13:27; Stop 10/14/16 at 07:31; Status DC Ephedrine Sulfate (Akovaz) 50 mg STK-MED ONCE .ROUTE ; Start 10/13/16 at 14:00; Stop 10/14/16 at 07:31; Status DC Phenylephrine HCl 1 mg STK-MED ONCE IV ; Start 10/13/16 at 14:25; Stop 10/14/16 at 07:31; Status DC Desflurane (Suprane) 60 ml STK-MED ONCE IH ; Start 10/13/16 at 14:25; Stop at 07:31; Status DC Dexamethasone Sodium Phosphate (Decadron) 20 mg STK-MED ONCE .ROUTE ; Start 10/13 at 14:25; Stop 10/14/16 at 07:31; Status DC Ondansetron HCl (Zofran) 4 mg STK-MED ONCE .ROUTE ; Start 10/13/16 at 14:25; Stop 10/14/16 at 07:31; Status DC Famotidine (Pepcid) 20 mg STK-MED ONCE .ROUTE ; Start 10/13/16 at 14:25; Stop 07/21 at 07:31; Status DC Rocuronium [place] (Zemuron) 50 mg STK-MED ONCE .ROUTE ; Start 10/13/16 at 16:19 ; Stop 10/14/16 at 07:31; Status DC Fentanyl Citrate (Fentanyl 2ml Vial) 100 mcg STK-MED ONCE .ROUTE ; Start at 16:21; Stop 10/14/16 at 07:31; Status DC Desflurane (Suprane) 90 ml STK-MED ONCE IH ; Start 10/13/16 at 16:53; Stop at 07:31; Status DC Glycopyrrolate (Robinul) 1 mg STK-MED ONCE .ROUTE ; Start 10/13/16 at 17:00; Stop 10/14/16 at 07:31; Status DC Neostigmine Methylsulfate 5 mg STK-MED ONCE .ROUTE ; Start 10/13/16 at 17:00; Stop 10/14/16 at 07:31; Status DC Phenylephrine HCl 1 mg STK-MED ONCE IV ; Start 10/13/16 at 18:14; Stop 10/14/16 at 07:31; Status DC Fentanyl Citrate (Fentanyl 2ml Vial) 100 mcg STK-MED ONCE .ROUTE ; Start at 18:20; Stop 10/14/16 at 07:31; Status DC Fentanyl Citrate 100 mcg 100 mcg STK-MED ONCE .ROUTE ; Start 10/13/16 at 19:17; Stop 10/14/16 at 07:31; Status DC Levetiracetam 500 mg/Sodium Chloride 105 ml @ 400 mls/hr Q12HR IV Last administered on 10/30/16t 09:28; Start 10/14/16 at 09:00; Stop 10/30/16 at 15:42 ; Status DC Amino Acids/ Glycerin/ Electrolytes (Procalamine) 1,000 ml @ 80 mls/hr [id number] IV Last administered on 10/16/16 09:16; Start 10/14/16 at 11:15; Stop at 21:59; Status DC Morphine Sulfate 2 mg PRN Q4HRS PRN IV MODERATE PAIN Last administered on 00:57; Start 10/14/16 at 14:15; Stop 10/27/16 at 12:52; Status DC Morphine Sulfate 4 mg PRN Q4HRS PRN IV SEVERE PAIN Last administered on 15:22; Start 10/14/16 at 14:30; Stop 10/30/16 at 15:42; Status DC Info 1 each 1 each PRN DAILY PRN MC SEE COMMENTS Last administered on 10:32; Start 10/16/16 at 11:30; Stop 10/28/16 at 10:48; Status DC Sodium Chloride/ Potassium Chloride/ Potassium Phosphate/ Magnesium Sulfate/ Calcium Gluconate/ Multivitamins/ Minerals/Chromium/ Copper/Manganese/ Seleni/Zn /Total Parenteral Nutrition/Amino Acids/Dextrose/ Fat Emulsion Intravenous ( Sodium Chloride/ Potassium Phospha... 1,512 ml @ 63 mls/hr TPN CONT IV ; Start 10/16/16 at 22:00; Stop 10/17/16 at 12:50; Status DC Lidocaine/Sodium Bicarbonate 20 ml 20 ml STK-MED ONCE IJ ; Start 10/17/16 at 08: 20; Stop 10/17/16 at 08:21; Status DC Heparin Sodium/ Sodium Chloride 500 ml @ As Directed STK-MED ONCE .ROUTE ; Start 10/17/16 at 08:20; Stop 10/17/16 at 08:21; Status DC Lidocaine/Sodium Bicarbonate (Buffered Lidocaine 1%) 3 ml 1X ONCE IJ Last administered on 10/17/16 08:30; Start 10/17/16 at 08:30; Stop 10/17/16 at 08:31 ; Status DC Heparin Sodium/ Sodium Chloride 60 unit 1X ONCE IV Last administered on 08:30; Start 10/17/16 at 08:30; Stop 10/17/16 at 08:31; Status DC Iohexol (Omnipaque 300 Mg/ml) 50 ml STK-MED ONCE .ROUTE ; Start 10/17/16 at 09: 02; Stop 10/17/16 at 09:03; Status DC Iohexol (Omnipaque 300 Mg/ml) 43 ml 1X ONCE IART Last administered on 08:45; Start 10/17/16 at 09:30; Stop 10/17/16 at 09:33; Status DC Info (Do NOT chart on this entry -- for MONITORING) 1 each PRN DAILY PRN MC SEE COMMENTS; Start 10/17/16 at 09:45; Stop 10/19/16 at 09:44; Status DC Clonidine HCl (Catapres Tts-2) 1 patch WEEKLY TD Last administered on 09:12; Start 10/17/16 at 11:00; Stop 10/26/16 at 09:54; Status DC Labetalol HCl 20 mg 20 mg PRN Q6HRS PRN IVP HYPERTENSION, 1ST CHOICE Last administered on 10/26/16 17:55; Start 10/17/16 at 10:30; Stop 10/30/16 at 15:42 ; Status DC Sodium Chloride 1,000 ml @ 60 mls/hr [id number] IV Last administered on 06:32; Start 10/17/16 at 12:30; Stop 10/19/16 at 10:06; Status DC Sodium Chloride 90 meq/Potassium Chloride 50 meq/ Potassium Phosphate 13.6 mmol/ Magnesium Sulfate 10 meq/ Calcium Gluconate 10 meq/ Multivitamins/ Minerals 10 ml/ Chromium/Copper/ Manganese/Seleni/ Zn 1 ml/Total Parenteral Nutrition/Amino Acids/Dextrose/ Fat Emulsion Intravenous 1,512 ml @ 63 mls/hr TPN CONT IV Last administered on 10/17/16 21:09; Start 10/17/16 at 22:00; Stop 10/18/16 at 21:59; Status DC Sodium Chloride/ Potassium Chloride/ Potassium Phosphate/ Magnesium Sulfate/ Calcium Gluconate/ Multivitamins/ Minerals/Chromium/ Copper/Manganese/ Seleni/Zn /Total Parenteral Nutrition/Amino Acids/Dextrose/ Fat Emulsion Intravenous ( Sodium Chloride/ Potassium Phospha... 1,512 ml @ 63 mls/hr TPN CONT IV Last administered on 10/18/16 21:24; Start 10/18/16 at 22:00; Stop 10/19/16 at 21:59 ; Status DC Furosemide 20 mg 20 mg 1X ONCE IVP Last administered on 10/19/16 11:01; Start 10/19/16 at 10:30; Stop 10/19/16 at 10:31; Status DC Sodium Chloride 90 meq/Sodium Acetate 40 meq/ Potassium Chloride 50 meq/ Potassium Phosphate 13.6 mmol/Magnesium Sulfate 10 meq/ Calcium Gluconate 10 meq / Multivitamins/ Minerals 10 ml/ Chromium/Copper/ Manganese/Seleni/ Zn 1 ml/ Total Parenteral Nutrition/Amino Acids/Dextro... 1,920 ml @ 80 mls/hr TPN CONT IV Last administered on 10/19/16 22:29; Start 10/19/16 at 22:00; Stop at 21:59; Status DC Sodium Chloride 1,000 ml @ 45 mls/hr [id number] IV Last administered on 22:24; Start 10/20/16 at 09:00; Stop 10/21/16 at 09:26; Status DC Magnesium Sulfate/ Dextrose 50 ml @ 25 mls/hr PRN DAILY PRN IV for Mag < 1.7 on am labs; Start 10/20/16 at 13:15; Stop 10/30/16 at 15:42; Status DC Sodium Chloride/ Sodium Acetate/ Potassium Chloride/ Potassium Phosphate/ Magnesium Sulfate/ Calcium Gluconate/ Multivitamins/ Minerals/Chromium/ Copper/ Manganese/ Seleni/Zn/Total Parenteral Nutrition/Amino Acids/Dextrose/ Fat Emulsion Intravenous (Sodium Chloride/ Potass... 1,920 ml @ 80 mls/hr TPN CONT IV Last administered on 10/20/16 22:23; Start 10/20/16 at 22:00; Stop at 21:59; Status DC Acetaminophen/ Hydrocodone Bitart 1 tab 1 tab PRN Q4HRS PRN PO PAIN Last administered on 10/21/16 23:51; Start 10/21/16 at 09:30; Stop 10/22/16 at 10:39 ; Status DC Sodium Chloride/ Sodium Acetate/ Potassium Chloride/ Potassium Phosphate/ Magnesium Sulfate/ Calcium Gluconate/ Multivitamins/ Minerals/Chromium/ Copper/ Manganese/ Seleni/Zn/Total Parenteral Nutrition/Amino Acids/Dextrose/ Fat Emulsion Intravenous (Sodium Chloride/ Potass... 1,920 ml @ 80 mls/hr TPN CONT IV Last administered on 10/21/16 22:22; Start 10/21/16 at 22:00; Stop at 21:59; Status DC Metoclopramide HCl (Reglan) 10 mg 1X ONCE IV Last administered on 10/22/16 01 :56; Start 10/22/16 at 02:00; Stop 10/22/16 at 02:01; Status DC Lorazepam (Ativan) 1 mg 1X ONCE IV Last administered on 10/22/16 02:35; Start 10/22/16 at 02:30; Stop 10/22/16 at 02:31; Status DC Morphine Sulfate 2 mg PRN Q1HR PRN IV CHEST PAIN Last administered on 04:55; Start 10/22/16 at 02:30; Stop 10/30/16 at 08:24; Status DC Famotidine (Pepcid) 20 mg 1X ONCE IVP Last administered on 10/22/16 02:35; Start 10/22/16 at 02:30; Stop 10/22/16 at 02:31; Status DC Hydralazine HCl (Apresoline) 10 mg PRN Q6HRS PRN IVP ELEVATED BP, SEE COMMENTS Last administered on 10/30/16 10:51; Start 10/22/16 at 10:45; Stop 10/30/16 at 15:42; Status DC Iohexol (Omnipaque 300 Mg/ml) 60 ml 1X ONCE PO Last administered on 10/22/16 11:43; Start 10/22/16 at 11:00; Stop 10/22/16 at 11:01; Status DC Iohexol (Omnipaque 300 Mg/ml) 60 ml 1X ONCE IV Last administered on 10/22/16 11:19; Start 10/22/16 at 11:00; Stop 10/22/16 at 11:01; Status DC Info 1 each 1 each PRN DAILY PRN MC SEE COMMENTS; Start 10/22/16 at 11:00; Stop 10/24/16 at 10:59; Status DC Sodium Chloride 50 meq/Sodium Acetate 80 meq/ Potassium Chloride 50 meq/ Potassium Phosphate 18 mmol/ Magnesium Sulfate 10 meq/Calcium Gluconate 10 meq/ Multivitamins/ Minerals 10 ml/ Chromium/Copper/ Manganese/Seleni/ Zn 1 ml/Total Parenteral Nutrition/Amino Acids/Dextrose/ Fat Emuls... 1,920 ml @ 80 mls/hr TPN CONT IV Last administered on 10/22/16 21:46; Start 10/22/16 at 22:00; Stop 10/23/16 at 21:59; Status DC Levothyroxine Sodium/Sodium Chloride (Synthroid/Iv Sodium Chloride 0.9% 50ml) 5 ml @ 100 mls/hr DAILY IVP Last administered on 10/30/16 09:31; Start 10/23/16 at 14:00; Stop 10/30/16 at 15:42; Status DC Furosemide (Lasix) 20 mg 1X ONCE IVP Last administered on 10/23/16 12:45; Start 10/23/16 at 12:30; Stop 10/23/16 at 12:31; Status DC Alteplase, Recombinant 2 mg 2 mg 1X ONCE INT CAT Last administered on 12:45; Start 10/23/16 at 12:30; Stop 10/23/16 at 12:31; Status DC Sodium Chloride/ Sodium Acetate/ Potassium Chloride/ Potassium Phosphate/ Magnesium Sulfate/ Calcium Gluconate/ Multivitamins/ Minerals/Chromium/ Copper/ Manganese/ Seleni/Zn/Total Parenteral Nutrition/Amino Acids/Dextrose/ Fat Emulsion Intravenous (Sodium Chloride/ Potass... 1,920 ml @ 80 mls/hr TPN CONT IV Last administered on 10/23/16 21:37; Start 10/23/16 at 22:00; Stop at 21:59; Status DC Acetaminophen 650 mg 650 mg PRN Q6HRS PRN CT MILD PAIN / TEMP Last administered on 10/23/16 23:09; Start 10/23/16 at 23:00; Stop 10/26/16 at 10:04 ; Status DC Potassium Chloride/Dextrose/ Sod Cl 1,000 ml @ 80 mls/hr [id number] IV Last administered on 10/24/16 10:08; Start 10/24/16 at 09:30; Stop 10/24/16 at 13:58 ; Status DC Sodium Chloride 50 meq/Sodium Acetate 80 meq/ Potassium Chloride 50 meq/ Potassium Phosphate 18 mmol/ Magnesium Sulfate 10 meq/Calcium Gluconate 10 meq/ Multivitamins/ Minerals 10 ml/ Chromium/Copper/ Manganese/Seleni/ Zn 1 ml/Total Parenteral Nutrition/Amino Acids/Dextrose/ Fat Emuls... 1,920 ml @ 80 mls/hr TPN CONT IV Last administered on 10/24/16 22:10; Start 10/24/16 at 22:00; Stop 10/25/16 at 21:59; Status DC Sodium Chloride (Iv Sodium Chloride 0.45%) 1,000 ml @ 45 mls/hr [id number] IV Last administered on 10/24/16 14:00; Start 10/24/16 at 14:00; Stop 10/25/16 at 11:47; Status DC Albuterol/ Ipratropium (Duoneb) 3 ml RTQID NEB Last administered on 10/30/16 11:55; Start 10/25/16 at 12:00; Stop 10/30/16 at 15:39; Status DC Albuterol Sulfate (Ventolin Neb Soln) 2.5 mg PRN Q4HRS PRN NEB SOA; Start 10/25 at 12:00; Stop 10/30/16 at 15:42; Status DC Furosemide 40 mg 40 mg 1X ONCE IVP Last administered on 10/25/16 13:49; Start 10/25/16 at 11:45; Stop 10/25/16 at 11:53; Status DC Sodium Chloride 50 meq/Sodium Acetate 80 meq/ Potassium Chloride 50 meq/ Potassium Phosphate 18 mmol/ Magnesium Sulfate 10 meq/Calcium Gluconate 10 meq/ Multivitamins/ Minerals 10 ml/ Chromium/Copper/ Manganese/Seleni/ Zn 1 ml/Total Parenteral Nutrition/Amino Acids/Dextrose/ Fat Emuls... 1,920 ml @ 80 mls/hr TPN CONT IV Last administered on 10/25/16 21:06; Start 10/25/16 at 22:00; Stop 10/26/16 at 21:59; Status DC Albumin Human (Albuminar) 100 ml @ 100 mls/hr 1X ONCE IV Last administered on 10/25/16 18:19; Start 10/25/16 at 16:45; Stop 10/25/16 at 17:44; Status DC Furosemide 40 mg 40 mg 1X ONCE IVP Last administered on 10/25/16 18:24; Start 10/25/16 at 16:45; Stop 10/25/16 at 16:46; Status DC Piperacillin Sod/ Tazobactam Sod 3.375 gm/Sodium Chloride 50 ml @ 100 mls/hr Q8HRS IV Last administered on 10/30/16 05:04; Start 10/26/16 at 10:00; Stop at 07:15; Status DC Linezolid (Zyvox Premix) 300 ml @ 300 mls/hr Q12HR IV Last administered on 08:04; Start 10/26/16 at 10:00; Stop 10/30/16 at 15:42; Status DC Bisacodyl 10 mg [address] Last administered on 10/27/16 09:11; Start 10/26/16 at 10:00; Stop 10/26/16 at 10:02; Status DC Sodium Chloride (Iv Sodium Chloride 0.45%) 1,000 ml @ 45 mls/hr [id number] IV Last administered on 10/27/16 09:11; Start 10/26/16 at 10:00; Stop 10/28/16 at 10:07; Status DC Acetaminophen 650 mg 650 mg PRN Q6HRS PRN CT MILD PAIN / TEMP Last administered on 10/28/16 20:02; Start 10/26/16 at 10:00; Stop 10/30/16 at 15:42 ; Status DC Sodium Chloride 50 meq/Sodium Acetate 80 meq/ Potassium Chloride 50 meq/ Potassium Phosphate 18 mmol/ Magnesium Sulfate 10 meq/Calcium Gluconate 10 meq/ Multivitamins/ Minerals 10 ml/ Chromium/Copper/ Manganese/Seleni/ Zn 1 ml/Total Parenteral Nutrition/Amino Acids/Dextrose/ Fat Emuls... 1,920 ml @ 80 mls/hr TPN CONT IV Last administered on 10/26/16 22:02; Start 10/26/16 at 22:00; Stop 10/27/16 at 21:59; Status DC Micafungin Sodium/ Dextrose (Mycamine) 100 ml @ 100 mls/hr Q24H IV Last administered on 10/29/16 20:29; Start 10/26/16 at 21:00; Stop 10/30/16 at 15:42 ; Status DC Morphine Sulfate 2 mg 2 mg PRN Q4HRS PRN IV MODERATE PAIN Last administered on 10/30/16 11:58; Start 10/27/16 at 13:00; Stop 10/30/16 at 15:42; Status DC Sodium Chloride/ Sodium Acetate/ Potassium Chloride/ Potassium Phosphate/ Magnesium Sulfate/ Calcium Gluconate/ Multivitamins/ Minerals/Chromium/ Copper/ Manganese/ Seleni/Zn/Total Parenteral Nutrition/Amino Acids/Dextrose/ Fat Emulsion Intravenous (Sodium Chloride/ Potass... 1,920 ml @ 80 mls/hr TPN CONT IV Last administered on 10/27/16 22:51; Start 10/27/16 at 22:00; Stop at 21:59; Status DC Diphenhydramine HCl (Benadryl) 25 mg 1X ONCE IM Last administered on 14:08; Start 10/27/16 at 14:30; Stop 10/27/16 at 14:31; Status DC Furosemide (Lasix) 20 mg 1X ONCE IVP Last administered on 10/28/16 08:15; Start 10/28/16 at 08:00; Stop 10/28/16 at 08:01; Status DC Furosemide 40 mg 40 mg 1X ONCE IVP ; Start 10/28/16 at 10:00; Stop 10/28/16 at 10:01; Status DC Sodium Chloride 50 meq/Sodium Acetate 60 meq/ Sodium Phosphate 18 mmol/ Magnesium Sulfate 10 meq/ Calcium Gluconate 6 meq/ Multivitamins/ Minerals 10 ml / Chromium/Copper/ Manganese/Seleni/ Zn 1 ml/Total Parenteral Nutrition/Amino Acids/Dextrose/ Fat Emulsion Intravenous 1,080 ml @ 45 mls/hr TPN CONT IV Last administered on 10/28/16 22:54; Start 10/28/16 at 22:00; Stop 10/29/16 at 21:59; Status DC Dextrose/Sodium Chloride (Iv D5% - 1/2 NS) 1,000 ml @ 75 mls/hr [id number] IV ; Start 10/28/16 at 11:00; Stop 10/28/16 at 11:12; Status DC Furosemide (Lasix) 40 mg 1X ONCE IVP ; Start 10/28/16 at 11:00; Stop 10/28/16 at 11:01; Status DC Info 1 each PRN DAILY PRN MC SEE COMMENTS Last administered on 10/30/16 10:20 ; Start 10/28/16 at 11:15; Stop 10/30/16 at 15:42; Status DC Furosemide 40 mg 40 mg 1X ONCE IVP Last administered on 10/29/16 11:10; Start 10/29/16 at 10:00; Stop 10/29/16 at 10:01; Status DC Sodium Chloride 50 meq/Sodium Acetate 60 meq/ Sodium Phosphate 18 mmol/ Magnesium Sulfate 10 meq/ Calcium Gluconate 6 meq/ Multivitamins/ Minerals 10 ml / Chromium/Copper/ Manganese/Seleni/ Zn 1 ml/Total Parenteral Nutrition/Amino Acids/Dextrose/ Fat Emulsion Intravenous 1,200 ml @ 50 mls/hr TPN CONT IV Last administered on 10/29/16 22:10; Start 10/29/16 at 22:00; Stop 10/30/16 at 15:42; Status DC Meropenem/Sodium Chloride (Merrem/Iv Sodium Chloride 0.9% 50ml) 50 ml @ 100 mls /hr Q6HRS IV Last administered on 10/30/16 10:44; Start 10/30/16 at 07:30; Stop 10/30/16 at 15:42; Status DC Bisacodyl (Dulcolax Supp) [address] Last administered on 10/30/16 16: 45; Start 10/30/16 at 09:15; Stop 10/30/16 at 09:16; Status DC Furosemide 40 mg 40 mg 1X ONCE IVP Last administered on 10/30/16 10:50; Start 10/30/16 at 09:15; Stop 10/30/16 at 09:16; Status DC Sodium Chloride/ Sodium Acetate/ Sodium Phosphate/ Potassium Chloride/ Magnesium Sulfate/ Calcium Gluconate/ Multivitamins/ Minerals/Chromium/ Copper/ Manganese/ Seleni/Zn/Total Parenteral Nutrition/Amino Acids/Dextrose/ Fat Emulsion Intravenous (Sodium Chloride/ Infuvite Adult/ Multitrace-5 Co... 1,200 ml @ 50 mls/hr TPN CONT IV ; Start 10/30/16 at 22:00; Stop 10/30/16 at 22:00; Status DC Furosemide (Lasix) 40 mg DAILY IVP ; Start 10/31/16 at 09:00; Stop 10/31/16 at 09:00; Status DC Morphine Sulfate 4 mg PRN Q2HR PRN IV PAIN Last administered on 10/30/16 22:44 ; Start 10/30/16 at 16:00 Morphine Sulfate 2 mg PRN Q2HR PRN IV PAIN; Start 10/30/16 at 16:00 Lorazepam (Ativan) 1 mg PRN Q1HR PRN IV ANXIETY / AGITATION Last administered on 10/30/16 22:42; Start 10/30/16 at 16:00 Lorazepam (Ativan) 0.5 mg PRN Q1HR PRN IV ANXIETY / AGITATION; Start 10/30/16 at 16:00 Active Scripts Active Hydrocodone-Apap 5-325 (Hydrocodone Bit/Acetaminophen) 1 Each Tablet 1 Tab PO PRN Q6HRS PRN Metoprolol Succinate ( Xl ) (Metoprolol Succinate) 25 Mg Tab.er.24h 25 Mg PO DAILY Reported Flomax (Tamsulosin Hcl) 0.4 Mg Cap.er.24h 1 Cap PO QHS Tramadol Hcl 100 Mg Tab.er.24h 100 Mg PO QID Levetiracetam 250 Mg Tablet 250 Mg PO BID Dulcolax (Bisacodyl) 10 Mg Supp.rect 10 Mg RC PRN DAILY PRN Maalox Advanced Suspension (Mag Hydrox/Al Hydrox/Simeth) 770 Ml Oral.susp 30 Ml PO Q2HR PRN Milk Of Magnesia (Magnesium Hydroxide) 400 Mg/5 Ml Oral.susp 30 Ml PO DAILY PRN Robitussin Cough-Chest Dm Liq (Guaifenesin/Dextromethorphan) 118 Ml Liquid 10 Ml PO Q4HRS PRN Trazodone Hcl 50 Mg Tablet 1 Tab PO QHS Tylenol (Acetaminophen) 325 Mg Tablet 650 Mg PO Q6HRS PRN Pramipexole Dihydrochloride (Pramipexole Di-Hcl) 0.5 Mg Tablet 0.5 Mg PO TID Simvastatin 20 Mg Tablet 1 Tab PO QHS Levothyroxine Sodium 100 Mcg Tablet 1 Tab PO DAILY Gabapentin 800 Mg Tablet 800 Mg PO QID Sinemet 25-100 Mg Tablet (Carbidopa/Levodopa) 1 Each Tablet 2 Tab PO TID Aspirin 81 Mg Tab.chew 1 Tab PO DAILY Vitals/I & O Vital Sign - Last 24 Hours 10/30/16 10/30/16 10/30/16 10/30/16 10:00 10:28 10:42 10:51 Pulse 94 100 Resp 27 B/P 176/82 179/82 Pulse Ox 98 100 100 O2 Delivery BiPAP/CPAP BiPAP/CPAP BiPAP/CPAP 10/30/16 10/30/16 10/30/16 10/30/16 11:00 11:00 11:58 11:59 Pulse 102 B/P 169/71 Pulse Ox 99 99 O2 Delivery Room Air Nasal Cannula O2 Flow Rate 15.0 15.0 4.0 10/30/16 10/30/16 10/30/16 10/30/16 12:00 12:00 13:00 14:00 Temp 100.0 100.0 Pulse 106 103 106 B/P 174/74 160/72 133/60 Pulse Ox 98 98 98 O2 Delivery Bi-pap Nasal Cannula Nasal Cannula Nasal Cannula O2 Flow Rate 4.0 4.0 4.0 10/30/16 10/30/16 10/30/16 10/30/16 15:00 15:22 16:46 19:00 Temp 101.3 101.3 Pulse 108 115 Resp 34 18 B/P 149/69 115/72 Pulse Ox 98 98 98 91 O2 Delivery Nasal Cannula Nasal Cannula O2 Flow Rate 4.0 4.0 4.0 2.0 10/30/16 23:00 Temp 102.7 102.7 Pulse 67 Resp 18 Pulse Ox 89 O2 Delivery Nasal Cannula O2 Flow Rate 2.0 Intake and Output 10/30/16 10/30/16 10/31/16 15:00 23:00 07:00 Intake Total 0 ml 0 ml Output Total 625 ml 900 ml 650 ml Balance -625 ml -900 ml -650 ml RICHARD [place] MD Oct 31, 2016 09:08
--- NOTE | 2016-10-31 11:21 | PDOC2 ---
PALLIATIVE CARE Palliative Care Note Palliative Care Patient alert and oriented. SOB Daughter and son in-law at bedside. Discussed options for ongoing comfort care. IP Hospice discussed. Daughter would like [facility] IP Hospice. Starting Morphine gtt for ongoing SOB/Discomfort. Dr. Shirley bryan. Nicholas EDGAR will assist with discharge. ROXIE SANTIAGO Oct 31, 2016 11:20
[2016-10-31] MEDS: MORPHINE SULFATE 30 ML IV PRN ×2 (12:12→19:57)
--- NOTE | 2016-10-31 12:32 | PDOC ---
Subjective: Subjective: Head hurts. Daughter in room - planning for Hospice. Objective: Objective: D/w RN - comfort measures only. Vital Signs: Vital Signs Date Time Temp Pulse Resp B/P Pulse Ox O2 Delivery O2 Flow Rate FiO2 10/30/16 23:00 102.7 67 18 89 Nasal Cannula 2.0 102.7 10/30/16 19:00 115/72 PE: GEN: NAD NEURO/PSYCH: A & O 3 A/P: Resp failure SBO, post-lap/CONG w/ prolonged ileus -- Plans for Hospice in process. Will sign off. GAYLA CLEMENTE Oct 31, 2016 12:32
--- NOTE | 2016-10-31 12:40 | PDOC ---
PULMONARY PROGRESS NOTES Subjective Pt comfortable, on nasal canula MS drip Vitals Vital Signs Date Time Temp Pulse Resp B/P Pulse Ox O2 Delivery O2 Flow Rate FiO2 10/30/16 23:00 102.7 67 18 89 Nasal Cannula 2.0 102.7 10/30/16 19:00 115/72 General: Mild Distress Lungs: Other (decrease bs) Cardiovascular: S1, S2 Abdomen: Soft Neuro Exam: Oriented Extremities: Other (2+ edema BL ) Skin: Warm, Dry Labs Laboratory Tests Test 10/30/16 06:45 10/30/16 08:00 Sodium Level 139mmol/L (136-145) Potassium Level 3.9mmol/L (3.5-5.1) Chloride Level 102mmol/L (98-107) Carbon Dioxide Level 30mmol/L (21-32) Anion Gap 7 (6-14) Blood Urea Nitrogen 24mg/dL (8-26) Creatinine 1.4mg/dL (0.7-1.3) Estimated GFR (Cockcroft-Gault) 48.2 Glucose Level 151mg/dL (70-99) Calcium Level 7.7mg/dL (8.5-10.1) O2 Saturation 97% (92-99) Arterial Blood pH 7.41 (7.35-7.45) Arterial Blood pCO2 at Patient Temp 47mmHg (35-46) Arterial Blood pO2 at Patient Temp 92mmHg (65-108) Arterial Blood HCO3 29mmol/L (21-28) Arterial Blood Base Excess 3mmol/L (-3-3) FiO2 50 Medications Active Scripts Medications Dose Route/Sig Days Date Category Hydrocodone-Apap 5-325 (Hydrocodone Bit/Acetaminophen) 1 Each Tablet 1 Tab PO PRN Q6HRS PRN 08/28/16 Rx Flomax (Tamsulosin Hcl) 0.4 Mg Cap.er.24h 1 Cap PO QHS 01/01/16 Reported Tramadol Hcl 100 Mg Tab.er.24h 100 Mg PO QID 01/01/16 Reported Levetiracetam 250 Mg Tablet 250 Mg PO BID 01/01/16 Reported Dulcolax (Bisacodyl) 10 Mg Supp.rect 10 Mg RC PRN DAILY PRN 12/21/15 Reported Maalox Advanced Suspension (Mag Hydrox/Al Hydrox/Simeth) 770 Ml Oral.susp 30 Ml PO Q2HR PRN 12/21/15 Reported Milk Of Magnesia (Magnesium Hydroxide) 400 Mg/5 Ml Oral.susp 30 Ml PO DAILY PRN 12/21/15 Reported Robitussin Cough-Chest Dm Liq (Guaifenesin/Dextromethorphan) 118 Ml Liquid 10 Ml PO Q4HRS PRN 12/21/15 Reported Trazodone Hcl 50 Mg Tablet 1 Tab PO QHS 12/21/15 Reported Tylenol (Acetaminophen) 325 Mg Tablet 650 Mg PO Q6HRS PRN 12/21/15 Reported Pramipexole Dihydrochloride (Pramipexole Di-Hcl) 0.5 Mg Tablet 0.5 Mg PO TID 12/08/15 Reported Metoprolol Succinate ( Xl ) (Metoprolol Succinate) 25 Mg Tab.er.24h 25 Mg PO DAILY 12/06/15 Rx Simvastatin 20 Mg Tablet 1 Tab PO QHS 12/02/15 Reported Levothyroxine Sodium 100 Mcg Tablet 1 Tab PO DAILY 12/02/15 Reported Gabapentin 800 Mg Tablet 800 Mg PO QID 12/02/15 Reported Sinemet 25-100 Mg Tablet (Carbidopa/Levodopa) 1 Each Tablet 2 Tab PO TID 12/02/15 Reported Aspirin 81 Mg Tab.chew 1 Tab PO DAILY 12/02/15 Reported Comments CXR 10/28 LARGE LEFT MUCOUS PLUG CXR 10/29 Improved aeration left lung , increase atelectasis right lung CXR 10/30 persistent bilateral atelectasis Impression . - Acute Hypoxemic Respiratory Failure ,worse 10/28 due to large mucous plug left lung , improved with NIPPV but still with basal atelectasis - Small-bowel obstruction s/p exploratory laparotomy 10/13/16. - post op ileus - critical illness myopathy - Chronic kidney disease stage III - Seizure disorder. - Parkinson's disease. - Hypothyroidism. - Peripheral neuropathy. - Hypertension. - paroxysmal atrial fibrillation Plan . - Continue nasal canula - Comfort care - DNR/DNI - Hospice transfer ROXIE RINALDI MD Oct 31, 2016 12:40
[2016-10-31 19:00] VITALS: BP 131/65
[2016-10-31 23:00] VITALS: BP 135/67
[2016-11-01] MEDS: MORPHINE SULFATE 30 ML IV PRN ×5 (01:26→18:33)
[2016-11-01 07:00] VITALS: BP 121/57
--- NOTE | 2016-11-01 09:56 | PDOC ---
PROGRESS NOTES Subjective Subjective he feels more comfortable on iv morphine drip. discussed with daughter Ananya at bedside. febrile. will be seen by hospice today and will transfer to in patient hospice facility when bed is available. family concurs. Objective Objective Vital Signs Date Time Temp Pulse Resp B/P Pulse Ox O2 Delivery O2 Flow Rate FiO2 11/01/16 07:00 100.9 95 9 121/57 87 Nasal Cannula 4.5 100.9 Intake and Output 11/01/16 07:00 Intake Total 100 ml Output Total 675 ml Balance -575 ml Intake Oral 100 ml Output Urine Total 675 ml Physical Exam Abdomen: Soft, No tenderness, Other (obese. ) Heart: Regular rate, Normal S1, Normal S2 Extremities: Other (3 polus edema legs) General: Alert HEENT: Atraumatic Lungs: Clear to auscultation Neuro: Normal speech Psych/Mental Status: Mood NL Skin: No rashes Assessment Assessment Problems Medical Problems::Small-bowel obstruction resolved exploratory laparotomy 10/13/16. lysis of adhesions. bowel viable. post op ileus. prolonged 2. Seizure disorder. 3. Parkinson's disease. 4. Hypothyroidism. 5. Peripheral neuropathy. 6. Hypertension. 7. Chronic kidney disease stage III. klebsiella uti treated suspected gout synovitis resolved peripheral edema critical illness myopathy hematemesis once resolved paroxysmal atrial fibrillation. not a good candidate for anticoagulants acute hypoxic respiratory failure atelactasis MRSA and klebsiella in sputum large hiatal hernia LLL infiltrate with pleural effusion anemia (1) SBO (small bowel obstruction) Status: Acute Plan Plan of Care comfort measures iv morphine drip transfer to hospice house facility when bed is available Comment Review of Relevant I have reviewed the following items [place] (where applicable) has been applied. Labs Microbiology 10/26/16 Blood Culture - Final, Complete NO GROWTH AFTER 5 DAYS 10/26/16 Gram Stain - Final, Complete 10/13/16 Urine Culture - Final, Complete 10/13/16 Urine Culture Result 1 (MANDEEP) - Final, Complete Medications Current Medications Fentanyl Citrate 50 mcg 50 mcg PRN Q15MIN PRN IV PAIN GREATER THAN 3/10 Last administered on 09/30/16at 19:35; Start 09/30/16 at 17:30; Stop 10/01/16 at 04 :24; Status DC Lactated Ringer's (Iv Lactated Ringers) 1,000 ml @ 100 mls/hr Q10H IV Last administered on 09/30/16at 19:35; Start 09/30/16 at 17:28; Stop 10/01/16 at 03 :27; Status DC Ondansetron HCl (Zofran) 4 mg 1X ONCE IV Last administered on 09/30/16at 17:44 ; Start 09/30/16 at 17:30; Stop 09/30/16 at 17:32; Status DC Fentanyl Citrate (Fentanyl 2ml Vial) 50 mcg 1X ONCE IV ; Start 09/30/16 at 19: 15; Stop 10/01/16 at 04:24; Status DC Ondansetron HCl (Zofran) 4 mg PRN Q8HRS PRN IV NAUSEA/VOMITING Last administered on 09/30/16at 22:07; Start 09/30/16 at 19:15; Stop 10/01/16 at 19 :14; Status DC Fentanyl Citrate 50 mcg 50 mcg PRN Q2HR PRN IV PAIN Last administered on at 16:54; Start 09/30/16 at 19:15; Stop 10/01/16 at 19:14; Status DC Sodium Chloride 1,000 ml @ 100 mls/hr Q10H IV ; Start 09/30/16 at 19:30; Stop 10/01/16 at 04:24; Status DC Potassium Chloride/Dextrose/ Sod Cl (KCl 20 Meq In D5W-1/2 NS) 1,000 ml @ 125 mls/hr Q8H IV Last administered on 10/04/16at 06:02; Start 09/30/16 at 20:00; Stop 10/04/16 at 10:21; Status DC Enoxaparin Sodium 40 mg 40 mg Q24H SQ Last administered on 10/13/16 08:14; Start 10/01/16 at 09:00; Stop 10/13/16 at 08:36; Status DC Levetiracetam/ Sodium Chloride (Keppra/Iv Sodium Chloride 0.9% 100ml) 105 ml @ 400 mls/hr Q12HR IV Last administered on 10/05/16 09:30; Start 09/30/16 at 21: 00; Stop 10/05/16 at 10:24; Status DC Morphine Sulfate 2 mg PRN Q4HRS PRN IV SEVERE PAIN Last administered on 10:13; Start 09/30/16 at 19:30; Stop 10/05/16 at 10:24; Status DC Acetaminophen (Tylenol) 650 mg PRN Q6HRS PRN MO MILD PAIN / TEMP; Start at 19:30; Stop 10/05/16 at 10:24; Status DC Ondansetron HCl (Zofran) 4 mg PRN Q6HRS PRN IV NAUSEA/VOMITING Last administered on 10/07/16 08:28; Start 09/30/16 at 19:30; Stop 10/09/16 at 12:08 ; Status DC Benzocaine (Hurricaine One) 1 spray STK-MED ONCE .ROUTE ; Start 09/30/16 at 19: 51; Stop 09/30/16 at 19:52; Status DC Morphine Sulfate 4 mg PRN Q4HRS PRN IV PAIN Last administered on 10/05/16 08:08 ; Start 10/01/16 at 20:00; Stop 10/05/16 at 10:24; Status DC Clonidine HCl 1 patch 1 patch WEEKLY TD Last administered on 10/03/16at 12:30; Start 10/03/16 at 10:00; Stop 10/05/16 at 10:24; Status DC Piperacillin Sod/ Tazobactam Sod/ Sodium Chloride (Zosyn/Iv Sodium Chloride 0.9 % 50ml) 50 ml @ 100 mls/hr Q6HRS IV Last administered on 10/09/16 06:26; Start 10/04/16 at 11:00; Stop 10/09/16 at 10:55; Status DC Vancomycin HCl 1 each 1 each PRN DAILY PRN MC SEE COMMENTS Last administered on 10/07/16 11:11; Start 10/04/16 at 10:15; Stop 10/07/16 at 11:28; Status DC Vancomycin HCl/ Sodium Chloride (Iv Sodium Chloride 0.9% 250ml) 250 ml @ 250 mls/hr Q24H IV ; Start 10/04/16 at 10:15; Status UNV Labetalol HCl (Normodyne) 20 mg PRN Q6HRS PRN IVP HYPERTENSION, SEE COMMENTS; Start 10/04/16 at 10:15; Stop 10/05/16 at 10:24; Status DC Hydralazine HCl 10 mg 10 mg PRN Q6HRS PRN IVP ELEVATED BP, SEE COMMENTS Last administered on 10/06/16 19:17; Start 10/04/16 at 10:15; Stop 10/12/16 at 10:40 ; Status DC Amino Acids/ Glycerin/ Electrolytes 1,000 ml @ 40 mls/hr Q24H IV Last administered on 10/06/16 09:59; Start 10/04/16 at 10:15; Stop 10/07/16 at 09:06 ; Status DC Vancomycin HCl 2 gm/Sodium Chloride 500 ml @ 250 mls/hr 1X ONCE IV Last administered on 10/04/16at 11:26; Start 10/04/16 at 10:45; Stop 10/04/16 at 12 :44; Status DC Vancomycin HCl/ Sodium Chloride (Iv Sodium Chloride 0.9% 500ml Bag) 500 ml @ 250 mls/hr Q24H IV Last administered on 10/06/16 11:47; Start 10/05/16 at 12:00 ; Stop 10/07/16 at 11:28; Status DC Vancomycin HCl 1 each 1X ONCE MC Last administered on 10/06/16 11:30; Start at 11:30; Stop 10/06/16 at 11:31; Status DC Aspirin (Children'S Aspirin) 81 mg [id number] PO Last administered on 10/13/16 08:15; Start 10/05/16 at 11:00; Stop 10/13/16 at 08:29; Status DC Gabapentin (Neurontin) 600 mg QID PO Last administered on 10/13/16 08:14; Start 10/05/16 at 13:00; Stop 10/14/16 at 08:47; Status DC Levetiracetam (Keppra) 250 mg BID PO Last administered on 10/13/16 08:17; Start 10/05/16 at 11:00; Stop 10/14/16 at 08:47; Status DC Levothyroxine Sodium (Synthroid) 100 mcg DAILY07 PO Last administered on 05:08; Start 10/05/16 at 10:30; Stop 10/14/16 at 08:48; Status DC Metoprolol Succinate (Toprol Xl) 25 mg DAILY PO Last administered on 10/13/16 08:16; Start 10/05/16 at 11:00; Stop 10/14/16 at 08:47; Status DC Pramipexole Dihydrochloride (miraPEX) 0.5 mg [id number] PO Last administered on 10/13 08:15; Start 10/05/16 at 11:00; Stop 10/14/16 at 08:48; Status DC Simvastatin (Zocor) 20 mg HS PO Last administered on 10/12/16 21:07; Start 10/05 at 21:00; Stop 10/14/16 at 08:48; Status DC Carbidopa/Levodopa (Sinemet Cr) 1 tab.sa TID PO Last administered on 10/13/16 08:16; Start 10/05/16 at 11:00; Stop 10/14/16 at 08:48; Status DC Tamsulosin HCl (Flomax) 0.4 mg QHS PO Last administered on 10/12/16 21:07; Start 10/05/16 at 21:00; Stop 10/14/16 at 08:48; Status DC Tramadol HCl (Ultram) 50 mg QID PO Last administered on 10/13/16 08:17; Start 10/05/16 at 13:00; Stop 10/14/16 at 08:48; Status DC Acetaminophen (Tylenol) 650 mg PRN Q4HRS PRN PO MILD PAIN / TEMP Last administered on 10/13/16 00:17; Start 10/05/16 at 10:15; Stop 10/14/16 at 08:48; Status DC Prednisone (Prednisone) 20 mg 1X ONCE PO Last administered on 10/06/16 11:01; Start 10/06/16 at 10:30; Stop 10/06/16 at 10:31; Status DC Prednisone (Prednisone) 10 mg DAILY08 PO Last administered on 10/13/16 08:15; Start 10/07/16 at 08:00; Stop 10/13/16 at 08:29; Status DC Al Hydroxide/Mg Hydroxide (Mylanta Plus Xs) 30 ml PRN Q4HRS PRN PO HEARTBURN / GAS Last administered on 10/12/16 21:07; Start 10/07/16 at 08:45; Stop 10/14/16 at 08:48; Status DC Pantoprazole Sodium (Protonix) 40 mg DAILYAC PO Last administered on 10/13/16 05:08; Start 10/07/16 at 10:00; Stop 10/13/16 at 06:45; Status DC Furosemide 40 mg 40 mg DAILY PO Last administered on 10/08/16 08:42; Start 10/07 at 10:00; Stop 10/08/16 at 08:56; Status DC Sodium Chloride (Iv Sodium Chloride 0.45%) 1,000 ml @ 60 mls/hr CONT PRN IV . ; Start 10/08/16 at 09:00; Stop 10/08/16 at 16:06; Status DC Bisacodyl 10 mg 10 mg 1X ONCE MO Last administered on 10/08/16 10:11; Start at 09:30; Stop 10/08/16 at 09:31; Status DC Sodium Chloride (Iv Sodium Chloride 0.45%) 1,000 ml @ 60 mls/hr [id number] IV Last administered on 10/09/16 02:52; Start 10/08/16 at 10:15; Stop 10/09/16 at 12: 00; Status DC Cefpodoxime Proxetil (Vantin) 200 mg BID PO ; Start 10/09/16 at 11:00; Stop at 12:08; Status DC Cefpodoxime Proxetil (Vantin) 100 mg BID PO Last administered on 10/13/16 08:16 ; Start 10/09/16 at 21:00; Stop 10/13/16 at 08:29; Status DC Ondansetron HCl (Zofran) 4 mg STK-MED ONCE .ROUTE Last administered on 01:24; Start 10/13/16 at 01:19; Stop 10/13/16 at 01:20; Status DC Ondansetron HCl (Zofran) 4 mg PRN Q6HRS PRN IV NAUSEA/VOMITING Last administered on 10/27/16 00:39; Start 10/13/16 at 02:00; Stop 10/30/16 at 15:42 ; Status DC Pantoprazole Sodium 40 mg 40 mg DAILYAC IVP Last administered on 10/30/16 07: 30; Start 10/13/16 at 07:30; Stop 10/30/16 at 15:42; Status DC Dextrose/Sodium Chloride (Iv D5% - NS) 1,000 ml @ 60 mls/hr [id number] IV Last administered on 10/13/16 09:25; Start 10/13/16 at 08:30; Stop 10/13/16 at 11:01; Status DC Sodium Polystyrene Sulfonate 15 gm 15 gm 1X ONCE PO Last administered on 09:26; Start 10/13/16 at 08:30; Stop 10/13/16 at 08:31; Status DC Piperacillin Sod/ Tazobactam Sod 3.375 gm/Sodium Chloride 50 ml @ 100 mls/hr Q6HRS IV Last administered on 10/19/16 12:42; Start 10/13/16 at 09:00; Stop at 15:06; Status DC Dextrose/Sodium Chloride (Iv D5% - 1/2 NS) 1,000 ml @ 50 mls/hr Q20H IV Last administered on 10/17/16 00:16; Start 10/13/16 at 11:00; Stop 10/17/16 at 12:23 ; Status DC Ondansetron HCl (Zofran) 4 mg PRN Q6HRS PRN IV Nausea 1ST CHOICE; Start at 12:30; Stop 10/14/16 at 11:07; Status DC Fentanyl Citrate (Fentanyl 2ml Vial) 25 mcg PRN Q5MIN PRN IV MILD PAIN; Start 10/13/16 at 12:30; Stop 10/14/16 at 11:04; Status DC Fentanyl Citrate (Fentanyl 2ml Vial) 50 mcg PRN Q5MIN PRN IV MODERATE PAIN; Start 10/13/16 at 12:30; Stop 10/14/16 at 11:04; Status DC Morphine Sulfate 1 mg 1 mg PRN Q10MIN PRN IV SEVERE PAIN; Start 10/13/16 at 12: 30; Stop 10/14/16 at 11:00; Status DC Lactated Ringer's (Iv Lactated Ringers) 1,000 ml @ 0 mls/hr Q0M IV ; Start 10/13 at 12:17; Stop 10/14/16 at 00:16; Status DC Lidocaine HCl 2 ml 1X PRN PRN ID IV START; Start 10/13/16 at 12:30; Stop at 16:03; Status DC Hydromorphone HCl (Dilaudid) 0.5 mg PRN Q10MIN PRN IV SEV PAIN,Second choice; Start 10/13/16 at 12:30; Stop 10/14/16 at 11:04; Status DC Prochlorperazine Edisylate (Compazine) 5 mg PACU PRN PRN IV NAUSEA; Start at 12:30; Stop 10/14/16 at 11:00; Status DC Fentanyl Citrate (Fentanyl 2ml Vial) 50 mcg PRN Q5MIN PRN IV Acute Pain Last administered on 10/14/16t 10:04; Start 10/13/16 at 13:00; Stop 10/14/16 at 11:04 ; Status DC Morphine Sulfate 4 mg PRN Q10MIN PRN IV Moderate Pain; Start 10/13/16 at 13:00; Stop 10/14/16 at 11:00; Status DC Hydromorphone HCl (Dilaudid) 0.4 mg PRN Q10MIN PRN IV Moderate to severe pain; Start 10/13/16 at 13:00; Stop 10/14/16 at 11:04; Status DC Meperidine HCl (Demerol) 12.5 mg PRN Q5MIN PRN IV SHIVERING; Start 10/13/16 at 13:00; Stop 10/14/16 at 11:00; Status DC Prochlorperazine Edisylate (Compazine) 5 mg PRN Q6HRS PRN IV Nausea/Vomiting, 1st Choice; Start 10/13/16 at 13:00; Stop 10/14/16 at 11:00; Status DC Diphenhydramine HCl (Benadryl) 12.5 mg PRN Q2HR PRN IV ITCHING; Start 10/13/16 at 13:00; Stop 10/14/16 at 11:00; Status DC Midazolam HCl (Versed) 2 mg PRN 1X PRN IV PRIOR TO PROCEDURE; Start 10/13/16 at 13:00; Stop 10/14/16 at 11:07; Status DC Midazolam HCl (Versed) 1 mg PRN 1X PRN IV PRIOR TO PROCEDURE; Start 10/13/16 at 13:00; Stop 10/14/16 at 11:07; Status DC Fentanyl Citrate (Fentanyl 2ml Vial) 25 mcg PRN Q5MIN PRN IV X 2 DOSES FOR PAIN ; Start 10/13/16 at 13:00; Stop 10/14/16 at 11:04; Status DC Fentanyl Citrate 50 mcg 50 mcg PRN Q5MIN PRN IV X 2 DOSES FOR PAIN; Start at 13:00; Stop 10/14/16 at 11:04; Status DC Lactated Ringer's (Iv Lactated Ringers) 1,000 ml @ 125 mls/hr Q8H IV Last administered on 10/13/16 13:30; Start 10/13/16 at 12:48; Stop 10/14/16 at 00:47; Status DC Lidocaine HCl 2 ml 1X PRN PRN ID IV START; Start 10/13/16 at 13:00; Stop at 16:03; Status DC Fentanyl Citrate (Fentanyl 2ml Vial) 25 mcg PRN Q2HR PRN IV PAIN MOD TO SEV; Start 10/13/16 at 20:30; Stop 10/14/16 at 14:15; Status DC Fentanyl Citrate (Fentanyl 2ml Vial) 50 mcg PRN Q2HR PRN IV PAIN MOD TO SEV Last administered on 10/14/16 12:02; Start 10/13/16 at 20:30; Stop 10/14/16 at 14:15; Status DC Enoxaparin Sodium (Lovenox 40mg Syringe) 40 mg Q24H SQ Last administered on 09:18; Start 10/14/16 at 09:00; Stop 10/27/16 at 06:34; Status DC Fentanyl Citrate 100 mcg 100 mcg STK-MED ONCE .ROUTE ; Start 10/13/16 at 13:27; Stop 10/14/16 at 07:31; Status DC Propofol (Diprivan) 20 ml @ As Directed STK-MED ONCE IV ; Start 10/13/16 at 13:27 ; Stop 10/14/16 at 07:31; Status DC Rocuronium [place] (Zemuron) 50 mg STK-MED ONCE .ROUTE ; Start 10/13/16 at 13:27 ; Stop 10/14/16 at 07:31; Status DC Lidocaine HCl 100 mg STK-MED ONCE .ROUTE ; Start 10/13/16 at 13:27; Stop at 07:31; Status DC Fentanyl Citrate (Fentanyl 2ml Vial) 100 mcg STK-MED ONCE .ROUTE ; Start at 13:27; Stop 10/14/16 at 07:31; Status DC Ephedrine Sulfate (Akovaz) 50 mg STK-MED ONCE .ROUTE ; Start 10/13/16 at 14:00; Stop 10/14/16 at 07:31; Status DC Phenylephrine HCl 1 mg STK-MED ONCE IV ; Start 10/13/16 at 14:25; Stop 10/14/16 at 07:31; Status DC Desflurane (Suprane) 60 ml STK-MED ONCE IH ; Start 10/13/16 at 14:25; Stop at 07:31; Status DC Dexamethasone Sodium Phosphate (Decadron) 20 mg STK-MED ONCE .ROUTE ; Start 10/13 at 14:25; Stop 10/14/16 at 07:31; Status DC Ondansetron HCl (Zofran) 4 mg STK-MED ONCE .ROUTE ; Start 10/13/16 at 14:25; Stop 10/14/16 at 07:31; Status DC Famotidine (Pepcid) 20 mg STK-MED ONCE .ROUTE ; Start 10/13/16 at 14:25; Stop 07/21 at 07:31; Status DC Rocuronium [place] (Zemuron) 50 mg STK-MED ONCE .ROUTE ; Start 10/13/16 at 16:19 ; Stop 10/14/16 at 07:31; Status DC Fentanyl Citrate (Fentanyl 2ml Vial) 100 mcg STK-MED ONCE .ROUTE ; Start at 16:21; Stop 10/14/16 at 07:31; Status DC Desflurane (Suprane) 90 ml STK-MED ONCE IH ; Start 10/13/16 at 16:53; Stop at 07:31; Status DC Glycopyrrolate (Robinul) 1 mg STK-MED ONCE .ROUTE ; Start 10/13/16 at 17:00; Stop 10/14/16 at 07:31; Status DC Neostigmine Methylsulfate 5 mg STK-MED ONCE .ROUTE ; Start 10/13/16 at 17:00; Stop 10/14/16 at 07:31; Status DC Phenylephrine HCl 1 mg STK-MED ONCE IV ; Start 10/13/16 at 18:14; Stop 10/14/16 at 07:31; Status DC Fentanyl Citrate (Fentanyl 2ml Vial) 100 mcg STK-MED ONCE .ROUTE ; Start at 18:20; Stop 10/14/16 at 07:31; Status DC Fentanyl Citrate 100 mcg 100 mcg STK-MED ONCE .ROUTE ; Start 10/13/16 at 19:17; Stop 10/14/16 at 07:31; Status DC Levetiracetam 500 mg/Sodium Chloride 105 ml @ 400 mls/hr Q12HR IV Last administered on 10/30/16 09:28; Start 10/14/16 at 09:00; Stop 10/30/16 at 15:42 ; Status DC Amino Acids/ Glycerin/ Electrolytes (Procalamine) 1,000 ml @ 80 mls/hr [id number] IV Last administered on 10/16/16 09:16; Start 10/14/16 at 11:15; Stop at 21:59; Status DC Morphine Sulfate 2 mg PRN Q4HRS PRN IV MODERATE PAIN Last administered on 00:57; Start 10/14/16 at 14:15; Stop 10/27/16 at 12:52; Status DC Morphine Sulfate 4 mg PRN Q4HRS PRN IV SEVERE PAIN Last administered on 15:22; Start 10/14/16 at 14:30; Stop 10/30/16 at 15:42; Status DC Info 1 each 1 each PRN DAILY PRN MC SEE COMMENTS Last administered on 10:32; Start 10/16/16 at 11:30; Stop 10/28/16 at 10:48; Status DC Sodium Chloride/ Potassium Chloride/ Potassium Phosphate/ Magnesium Sulfate/ Calcium Gluconate/ Multivitamins/ Minerals/Chromium/ Copper/Manganese/ Seleni/Zn /Total Parenteral Nutrition/Amino Acids/Dextrose/ Fat Emulsion Intravenous ( Sodium Chloride/ Potassium Phospha... 1,512 ml @ 63 mls/hr TPN CONT IV ; Start 10/16/16 at 22:00; Stop 10/17/16 at 12:50; Status DC Lidocaine/Sodium Bicarbonate 20 ml 20 ml STK-MED ONCE IJ ; Start 10/17/16 at 08: 20; Stop 10/17/16 at 08:21; Status DC Heparin Sodium/ Sodium Chloride 500 ml @ As Directed STK-MED ONCE .ROUTE ; Start 10/17/16 at 08:20; Stop 10/17/16 at 08:21; Status DC Lidocaine/Sodium Bicarbonate (Buffered Lidocaine 1%) 3 ml 1X ONCE IJ Last administered on 10/17/16 08:30; Start 10/17/16 at 08:30; Stop 10/17/16 at 08:31 ; Status DC Heparin Sodium/ Sodium Chloride 60 unit 1X ONCE IV Last administered on 08:30; Start 10/17/16 at 08:30; Stop 10/17/16 at 08:31; Status DC Iohexol (Omnipaque 300 Mg/ml) 50 ml STK-MED ONCE .ROUTE ; Start 10/17/16 at 09: 02; Stop 10/17/16 at 09:03; Status DC Iohexol (Omnipaque 300 Mg/ml) 43 ml 1X ONCE IART Last administered on 08:45; Start 10/17/16 at 09:30; Stop 10/17/16 at 09:33; Status DC Info (Do NOT chart on this entry -- for MONITORING) 1 each PRN DAILY PRN MC SEE COMMENTS; Start 10/17/16 at 09:45; Stop 10/19/16 at 09:44; Status DC Clonidine HCl (Catapres Tts-2) 1 patch WEEKLY TD Last administered on 09:12; Start 10/17/16 at 11:00; Stop 10/26/16 at 09:54; Status DC Labetalol HCl 20 mg 20 mg PRN Q6HRS PRN IVP HYPERTENSION, 1ST CHOICE Last administered on 10/26/16 17:55; Start 10/17/16 at 10:30; Stop 10/30/16 at 15:42 ; Status DC Sodium Chloride 1,000 ml @ 60 mls/hr [id number] IV Last administered on 06:32; Start 10/17/16 at 12:30; Stop 10/19/16 at 10:06; Status DC Sodium Chloride 90 meq/Potassium Chloride 50 meq/ Potassium Phosphate 13.6 mmol/ Magnesium Sulfate 10 meq/ Calcium Gluconate 10 meq/ Multivitamins/ Minerals 10 ml/ Chromium/Copper/ Manganese/Seleni/ Zn 1 ml/Total Parenteral Nutrition/Amino Acids/Dextrose/ Fat Emulsion Intravenous 1,512 ml @ 63 mls/hr TPN CONT IV Last administered on 10/17/16 21:09; Start 10/17/16 at 22:00; Stop 10/18/16 at 21:59; Status DC Sodium Chloride/ Potassium Chloride/ Potassium Phosphate/ Magnesium Sulfate/ Calcium Gluconate/ Multivitamins/ Minerals/Chromium/ Copper/Manganese/ Seleni/Zn /Total Parenteral Nutrition/Amino Acids/Dextrose/ Fat Emulsion Intravenous ( Sodium Chloride/ Potassium Phospha... 1,512 ml @ 63 mls/hr TPN CONT IV Last administered on 10/18/16 21:24; Start 10/18/16 at 22:00; Stop 10/19/16 at 21:59 ; Status DC Furosemide 20 mg 20 mg 1X ONCE IVP Last administered on 10/19/16 11:01; Start 10/19/16 at 10:30; Stop 10/19/16 at 10:31; Status DC Sodium Chloride 90 meq/Sodium Acetate 40 meq/ Potassium Chloride 50 meq/ Potassium Phosphate 13.6 mmol/Magnesium Sulfate 10 meq/ Calcium Gluconate 10 meq / Multivitamins/ Minerals 10 ml/ Chromium/Copper/ Manganese/Seleni/ Zn 1 ml/ Total Parenteral Nutrition/Amino Acids/Dextro... 1,920 ml @ 80 mls/hr TPN CONT IV Last administered on 10/19/16 22:29; Start 10/19/16 at 22:00; Stop at 21:59; Status DC Sodium Chloride 1,000 ml @ 45 mls/hr [id number] IV Last administered on 22:24; Start 10/20/16 at 09:00; Stop 10/21/16 at 09:26; Status DC Magnesium Sulfate/ Dextrose 50 ml @ 25 mls/hr PRN DAILY PRN IV for Mag < 1.7 on am labs; Start 10/20/16 at 13:15; Stop 10/30/16 at 15:42; Status DC Sodium Chloride/ Sodium Acetate/ Potassium Chloride/ Potassium Phosphate/ Magnesium Sulfate/ Calcium Gluconate/ Multivitamins/ Minerals/Chromium/ Copper/ Manganese/ Seleni/Zn/Total Parenteral Nutrition/Amino Acids/Dextrose/ Fat Emulsion Intravenous (Sodium Chloride/ Potass... 1,920 ml @ 80 mls/hr TPN CONT IV Last administered on 10/20/16 22:23; Start 10/20/16 at 22:00; Stop at 21:59; Status DC Acetaminophen/ Hydrocodone Bitart 1 tab 1 tab PRN Q4HRS PRN PO PAIN Last administered on 10/21/16 23:51; Start 10/21/16 at 09:30; Stop 10/22/16 at 10:39 ; Status DC Sodium Chloride/ Sodium Acetate/ Potassium Chloride/ Potassium Phosphate/ Magnesium Sulfate/ Calcium Gluconate/ Multivitamins/ Minerals/Chromium/ Copper/ Manganese/ Seleni/Zn/Total Parenteral Nutrition/Amino Acids/Dextrose/ Fat Emulsion Intravenous (Sodium Chloride/ Potass... 1,920 ml @ 80 mls/hr TPN CONT IV Last administered on 10/21/16 22:22; Start 10/21/16 at 22:00; Stop at 21:59; Status DC Metoclopramide HCl (Reglan) 10 mg 1X ONCE IV Last administered on 10/22/16 01 :56; Start 10/22/16 at 02:00; Stop 10/22/16 at 02:01; Status DC Lorazepam (Ativan) 1 mg 1X ONCE IV Last administered on 10/22/16 02:35; Start 10/22/16 at 02:30; Stop 10/22/16 at 02:31; Status DC Morphine Sulfate 2 mg PRN Q1HR PRN IV CHEST PAIN Last administered on 04:55; Start 10/22/16 at 02:30; Stop 10/30/16 at 08:24; Status DC Famotidine (Pepcid) 20 mg 1X ONCE IVP Last administered on 10/22/16 02:35; Start 10/22/16 at 02:30; Stop 10/22/16 at 02:31; Status DC Hydralazine HCl (Apresoline) 10 mg PRN Q6HRS PRN IVP ELEVATED BP, SEE COMMENTS Last administered on 10/30/16 10:51; Start 10/22/16 at 10:45; Stop 10/30/16 at 15:42; Status DC Iohexol (Omnipaque 300 Mg/ml) 60 ml 1X ONCE PO Last administered on 10/22/16 11:43; Start 10/22/16 at 11:00; Stop 10/22/16 at 11:01; Status DC Iohexol (Omnipaque 300 Mg/ml) 60 ml 1X ONCE IV Last administered on 10/22/16 11:19; Start 10/22/16 at 11:00; Stop 10/22/16 at 11:01; Status DC Info 1 each 1 each PRN DAILY PRN MC SEE COMMENTS; Start 10/22/16 at 11:00; Stop 10/24/16 at 10:59; Status DC Sodium Chloride 50 meq/Sodium Acetate 80 meq/ Potassium Chloride 50 meq/ Potassium Phosphate 18 mmol/ Magnesium Sulfate 10 meq/Calcium Gluconate 10 meq/ Multivitamins/ Minerals 10 ml/ Chromium/Copper/ Manganese/Seleni/ Zn 1 ml/Total Parenteral Nutrition/Amino Acids/Dextrose/ Fat Emuls... 1,920 ml @ 80 mls/hr TPN CONT IV Last administered on 10/22/16 21:46; Start 10/22/16 at 22:00; Stop 10/23/16 at 21:59; Status DC Levothyroxine Sodium/Sodium Chloride (Synthroid/Iv Sodium Chloride 0.9% 50ml) 5 ml @ 100 mls/hr DAILY IVP Last administered on 10/30/16 09:31; Start 10/23/16 at 14:00; Stop 10/30/16 at 15:42; Status DC Furosemide (Lasix) 20 mg 1X ONCE IVP Last administered on 10/23/16 12:45; Start 10/23/16 at 12:30; Stop 10/23/16 at 12:31; Status DC Alteplase, Recombinant 2 mg 2 mg 1X ONCE INT CAT Last administered on 12:45; Start 10/23/16 at 12:30; Stop 10/23/16 at 12:31; Status DC Sodium Chloride/ Sodium Acetate/ Potassium Chloride/ Potassium Phosphate/ Magnesium Sulfate/ Calcium Gluconate/ Multivitamins/ Minerals/Chromium/ Copper/ Manganese/ Seleni/Zn/Total Parenteral Nutrition/Amino Acids/Dextrose/ Fat Emulsion Intravenous (Sodium Chloride/ Potass... 1,920 ml @ 80 mls/hr TPN CONT IV Last administered on 10/23/16 21:37; Start 10/23/16 at 22:00; Stop at 21:59; Status DC Acetaminophen 650 mg 650 mg PRN Q6HRS PRN MO MILD PAIN / TEMP Last administered on 10/23/16 23:09; Start 10/23/16 at 23:00; Stop 10/26/16 at 10:04 ; Status DC Potassium Chloride/Dextrose/ Sod Cl 1,000 ml @ 80 mls/hr [id number] IV Last administered on 10/24/16 10:08; Start 10/24/16 at 09:30; Stop 10/24/16 at 13:58 ; Status DC Sodium Chloride 50 meq/Sodium Acetate 80 meq/ Potassium Chloride 50 meq/ Potassium Phosphate 18 mmol/ Magnesium Sulfate 10 meq/Calcium Gluconate 10 meq/ Multivitamins/ Minerals 10 ml/ Chromium/Copper/ Manganese/Seleni/ Zn 1 ml/Total Parenteral Nutrition/Amino Acids/Dextrose/ Fat Emuls... 1,920 ml @ 80 mls/hr TPN CONT IV Last administered on 10/24/16 22:10; Start 10/24/16 at 22:00; Stop 10/25/16 at 21:59; Status DC Sodium Chloride (Iv Sodium Chloride 0.45%) 1,000 ml @ 45 mls/hr [id number] IV Last administered on 10/24/16 14:00; Start 10/24/16 at 14:00; Stop 10/25/16 at 11:47; Status DC Albuterol/ Ipratropium (Duoneb) 3 ml RTQID NEB Last administered on 10/30/16 11:55; Start 10/25/16 at 12:00; Stop 10/30/16 at 15:39; Status DC Albuterol Sulfate (Ventolin Neb Soln) 2.5 mg PRN Q4HRS PRN NEB SOA; Start 10/25 at 12:00; Stop 10/30/16 at 15:42; Status DC Furosemide 40 mg 40 mg 1X ONCE IVP Last administered on 10/25/16 13:49; Start 10/25/16 at 11:45; Stop 10/25/16 at 11:53; Status DC Sodium Chloride 50 meq/Sodium Acetate 80 meq/ Potassium Chloride 50 meq/ Potassium Phosphate 18 mmol/ Magnesium Sulfate 10 meq/Calcium Gluconate 10 meq/ Multivitamins/ Minerals 10 ml/ Chromium/Copper/ Manganese/Seleni/ Zn 1 ml/Total Parenteral Nutrition/Amino Acids/Dextrose/ Fat Emuls... 1,920 ml @ 80 mls/hr TPN CONT IV Last administered on 10/25/16 21:06; Start 10/25/16 at 22:00; Stop 10/26/16 at 21:59; Status DC Albumin Human (Albuminar) 100 ml @ 100 mls/hr 1X ONCE IV Last administered on 10/25/16 18:19; Start 10/25/16 at 16:45; Stop 10/25/16 at 17:44; Status DC Furosemide 40 mg 40 mg 1X ONCE IVP Last administered on 10/25/16 18:24; Start 10/25/16 at 16:45; Stop 10/25/16 at 16:46; Status DC Piperacillin Sod/ Tazobactam Sod 3.375 gm/Sodium Chloride 50 ml @ 100 mls/hr Q8HRS IV Last administered on 10/30/16 05:04; Start 10/26/16 at 10:00; Stop at 07:15; Status DC Linezolid (Zyvox Premix) 300 ml @ 300 mls/hr Q12HR IV Last administered on 08:04; Start 10/26/16 at 10:00; Stop 10/30/16 at 15:42; Status DC Bisacodyl 10 mg 10 mg 1X ONCE MO Last administered on 10/27/16 09:11; Start 10/26/16 at 10:00; Stop 10/26/16 at 10:02; Status DC Sodium Chloride (Iv Sodium Chloride 0.45%) 1,000 ml @ 45 mls/hr [id number] IV Last administered on 10/27/16 09:11; Start 10/26/16 at 10:00; Stop 10/28/16 at 10:07; Status DC Acetaminophen 650 mg 650 mg PRN Q6HRS PRN MO MILD PAIN / TEMP Last administered on 10/28/16 20:02; Start 10/26/16 at 10:00; Stop 10/30/16 at 15:42 ; Status DC Sodium Chloride 50 meq/Sodium Acetate 80 meq/ Potassium Chloride 50 meq/ Potassium Phosphate 18 mmol/ Magnesium Sulfate 10 meq/Calcium Gluconate 10 meq/ Multivitamins/ Minerals 10 ml/ Chromium/Copper/ Manganese/Seleni/ Zn 1 ml/Total Parenteral Nutrition/Amino Acids/Dextrose/ Fat Emuls... 1,920 ml @ 80 mls/hr TPN CONT IV Last administered on 10/26/16 22:02; Start 10/26/16 at 22:00; Stop 10/27/16 at 21:59; Status DC Micafungin Sodium/ Dextrose (Mycamine) 100 ml @ 100 mls/hr Q24H IV Last administered on 10/29/16 20:29; Start 10/26/16 at 21:00; Stop 10/30/16 at 15:42 ; Status DC Morphine Sulfate 2 mg 2 mg PRN Q4HRS PRN IV MODERATE PAIN Last administered on 10/30/16 11:58; Start 10/27/16 at 13:00; Stop 10/30/16 at 15:42; Status DC Sodium Chloride/ Sodium Acetate/ Potassium Chloride/ Potassium Phosphate/ Magnesium Sulfate/ Calcium Gluconate/ Multivitamins/ Minerals/Chromium/ Copper/ Manganese/ Seleni/Zn/Total Parenteral Nutrition/Amino Acids/Dextrose/ Fat Emulsion Intravenous (Sodium Chloride/ Potass... 1,920 ml @ 80 mls/hr TPN CONT IV Last administered on 10/27/16 22:51; Start 10/27/16 at 22:00; Stop at 21:59; Status DC Diphenhydramine HCl (Benadryl) 25 mg 1X ONCE IM Last administered on 14:08; Start 10/27/16 at 14:30; Stop 10/27/16 at 14:31; Status DC Furosemide (Lasix) 20 mg 1X ONCE IVP Last administered on 10/28/16 08:15; Start 10/28/16 at 08:00; Stop 10/28/16 at 08:01; Status DC Furosemide 40 mg 40 mg 1X ONCE IVP ; Start 10/28/16 at 10:00; Stop 10/28/16 at 10:01; Status DC Sodium Chloride 50 meq/Sodium Acetate 60 meq/ Sodium Phosphate 18 mmol/ Magnesium Sulfate 10 meq/ Calcium Gluconate 6 meq/ Multivitamins/ Minerals 10 ml / Chromium/Copper/ Manganese/Seleni/ Zn 1 ml/Total Parenteral Nutrition/Amino Acids/Dextrose/ Fat Emulsion Intravenous 1,080 ml @ 45 mls/hr TPN CONT IV Last administered on 10/28/16 22:54; Start 10/28/16 at 22:00; Stop 10/29/16 at 21:59; Status DC Dextrose/Sodium Chloride (Iv D5% - 1/2 NS) 1,000 ml @ 75 mls/hr [id number] IV ; Start 10/28/16 at 11:00; Stop 10/28/16 at 11:12; Status DC Furosemide (Lasix) 40 mg 1X ONCE IVP ; Start 10/28/16 at 11:00; Stop 10/28/16 at 11:01; Status DC Info 1 each PRN DAILY PRN MC SEE COMMENTS Last administered on 10/30/16 10:20 ; Start 10/28/16 at 11:15; Stop 10/30/16 at 15:42; Status DC Furosemide 40 mg 40 mg 1X ONCE IVP Last administered on 10/29/16 11:10; Start 10/29/16 at 10:00; Stop 10/29/16 at 10:01; Status DC Sodium Chloride 50 meq/Sodium Acetate 60 meq/ Sodium Phosphate 18 mmol/ Magnesium Sulfate 10 meq/ Calcium Gluconate 6 meq/ Multivitamins/ Minerals 10 ml / Chromium/Copper/ Manganese/Seleni/ Zn 1 ml/Total Parenteral Nutrition/Amino Acids/Dextrose/ Fat Emulsion Intravenous 1,200 ml @ 50 mls/hr TPN CONT IV Last administered on 10/29/16 22:10; Start 10/29/16 at 22:00; Stop 10/30/16 at 15:42; Status DC Meropenem/Sodium Chloride (Merrem/Iv Sodium Chloride 0.9% 50ml) 50 ml @ 100 mls /hr Q6HRS IV Last administered on 10/30/16 10:44; Start 10/30/16 at 07:30; Stop 10/30/16 at 15:42; Status DC Bisacodyl (Dulcolax Supp) 10 mg 1X ONCE MO Last administered on 10/30/16 16: 45; Start 10/30/16 at 09:15; Stop 10/30/16 at 09:16; Status DC Furosemide 40 mg 40 mg 1X ONCE IVP Last administered on 10/30/16 10:50; Start 10/30/16 at 09:15; Stop 10/30/16 at 09:16; Status DC Sodium Chloride/ Sodium Acetate/ Sodium Phosphate/ Potassium Chloride/ Magnesium Sulfate/ Calcium Gluconate/ Multivitamins/ Minerals/Chromium/ Copper/ Manganese/ Seleni/Zn/Total Parenteral Nutrition/Amino Acids/Dextrose/ Fat Emulsion Intravenous (Sodium Chloride/ Infuvite Adult/ Multitrace-5 Co... 1,200 ml @ 50 mls/hr TPN CONT IV ; Start 10/30/16 at 22:00; Stop 10/30/16 at 22:00; Status DC Furosemide (Lasix) 40 mg DAILY IVP ; Start 10/31/16 at 09:00; Stop 10/31/16 at 09:00; Status DC Morphine Sulfate 4 mg PRN Q2HR PRN IV PAIN Last administered on 10/31/16 10:28 ; Start 10/30/16 at 16:00 Morphine Sulfate 2 mg PRN Q2HR PRN IV PAIN; Start 10/30/16 at 16:00 Lorazepam (Ativan) 1 mg PRN Q1HR PRN IV ANXIETY / AGITATION Last administered on 10/30/16 22:42; Start 10/30/16 at 16:00 Lorazepam 0.5 mg 0.5 mg PRN Q1HR PRN IV ANXIETY / AGITATION; Start 10/30/16 at 16:00 Morphine Sulfate (Morphine 30 Mg/ 30 ml CREAM DUMPER) 30 ml @ 0 mls/hr CONT PRN PRN IV PROTOCOL Last administered on 11/01/16 06:22; Start 10/31/16 at 10:45 Active Scripts Active Hydrocodone-Apap 5-325 (Hydrocodone Bit/Acetaminophen) 1 Each Tablet 1 Tab PO PRN Q6HRS PRN Metoprolol Succinate ( Xl ) (Metoprolol Succinate) 25 Mg Tab.er.24h 25 Mg PO DAILY Reported Flomax (Tamsulosin Hcl) 0.4 Mg Cap.er.24h 1 Cap PO QHS Tramadol Hcl 100 Mg Tab.er.24h 100 Mg PO QID Levetiracetam 250 Mg Tablet 250 Mg PO BID Dulcolax (Bisacodyl) 10 Mg Supp.rect 10 Mg RC PRN DAILY PRN Maalox Advanced Suspension (Mag Hydrox/Al Hydrox/Simeth) 770 Ml Oral.susp 30 Ml PO Q2HR PRN Milk Of Magnesia (Magnesium Hydroxide) 400 Mg/5 Ml Oral.susp 30 Ml PO DAILY PRN Robitussin Cough-Chest Dm Liq (Guaifenesin/Dextromethorphan) 118 Ml Liquid 10 Ml PO Q4HRS PRN Trazodone Hcl 50 Mg Tablet 1 Tab PO QHS Tylenol (Acetaminophen) 325 Mg Tablet 650 Mg PO Q6HRS PRN Pramipexole Dihydrochloride (Pramipexole Di-Hcl) 0.5 Mg Tablet 0.5 Mg PO TID Simvastatin 20 Mg Tablet 1 Tab PO QHS Levothyroxine Sodium 100 Mcg Tablet 1 Tab PO DAILY Gabapentin 800 Mg Tablet 800 Mg PO QID Sinemet 25-100 Mg Tablet (Carbidopa/Levodopa) 1 Each Tablet 2 Tab PO TID Aspirin 81 Mg Tab.chew 1 Tab PO DAILY Vitals/I & O Vital Sign - Last 24 Hours 10/31/16 10/31/16 10/31/16 11/01/16 19:00 19:57 23:00 01:26 Temp 101.7 101.7 101.7 101.7 Pulse 112 103 Resp 18 16 18 20 B/P 131/65 135/67 Pulse Ox 88 89 84 84 O2 Delivery Nasal Cannula Nasal Cannula Nasal Cannula O2 Flow Rate 4.0 4.5 4.0 4.0 11/01/16 11/01/16 11/01/16 11/01/16 01:56 03:41 04:16 06:22 Temp 100.8 100.8 Pulse 119 Resp 16 9 16 Pulse Ox 84 77 77 O2 Delivery Bi-pap Nasal Cannula O2 Flow Rate 4.0 4.5 4.0 4.5 11/01/16 07:00 Temp 100.9 100.9 Pulse 95 Resp 9 B/P 121/57 Pulse Ox 87 O2 Delivery Nasal Cannula O2 Flow Rate 4.5 Intake and Output 10/31/16 10/31/16 11/01/16 15:00 23:00 07:00 Intake Total 100 ml 0 ml Output Total 275 ml 100 ml 300 ml Balance -275 ml 0 ml -300 ml RICHARD NJ MD Nov 01, 2016 09:56
--- NOTE | 2016-11-02 08:27 | PDOC ---
Provider Note Provider Note discharge summary dictated # [id number] RICHARD NJ MD Nov 02, 2016 08:27
--- NOTE | 2016-11-02 09:43 | DS ---
DATE OF DISCHARGE: 11/01/2016 CONSULTANTS: Include Dr. Arnett, Dr. Schumacher, Dr. Killian, Dr. Thompson, Dr. Moya, Dr. Barak Ann. Dr. Eliel Amin. FINAL DIAGNOSES: 1. Small-bowel obstruction. PROCEDURE: Exploration laparotomy on 10/13/2016 with lysis of adhesions and his bowel was viable. FINAL DIAGNOSES: 1. Small-bowel obstruction. 2. Postop ileus. 3. Seizure disorder. 4. Parkinson's disease. 5. Hypothyroidism. 6. Peripheral neuropathy. 7. Hypertension. 8. Chronic kidney disease stage III. 9. Klebsiella urinary tract infection. 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 11. ____ anemia. 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 13. Paroxysmal atrial fibrillation, but not a good candidate for anticoagulation. 14. Acute hypoxic respiratory failure. 15. Atelectasis. 16. MRSA and Klebsiella in the sputum. 17. Large hiatal hernia. 18. Left lower lobe pneumonia with pleural effusion. 19. Anemia. HOSPITAL COURSE: The patient is an 86-year-old white male with a 1 day history of nausea, vomiting, abdominal pain, abdominal distention and sought help at the [facility] Emergency Room on 09/30/2016. He was noted to have a partial small-bowel obstruction and he was made n.p.o., started on IV fluids and a nasogastric tube was placed. He has a history of a seizure disorder, was treated with IV Keppra. He also has a history of Parkinson's disease, hypothyroidism, hypertension, chronic kidney disease stage III and peripheral neuropathy. The patient was seen by multiple consultants. He was seen by Dr. Schumacher and Dr. Killian for general surgery and underwent exploratory laparotomy due to air in his portal venous system and was noted to have viable bowel and had extensive lysis of adhesions. He was also seen in consultation by Dr. Arnett for Pulmonary, Dr. Thompson for cardiology, Dr. Moya and Dr. Barak Ann for infectious disease. Postoperatively, the patient had a prolonged ileus, treated with TPN. He had complications including Klebsiella urinary tract infection and aspiration pneumonia. He had anemia, paroxysmal atrial fibrillation, but not a candidate for anticoagulation, critical illness myopathy, he had hemetemesis x 1, gout synovitis involving the hand, which resolved with prednisone. The patient was not improving and he was a do not resuscitate. He wished comfort measures only as did the family. The patient was seen by palliative care and was started on a morphine drip. He was transferred to an inpatient hospice facility on 11/01/2016. ELIEL NJ MD DR: ANA/lexy JOB#: [id number] / [id number]
== END 2016-11-01 19:48 | disposition hospice, inpatient (51) | DRG 329 ==
LOC: ER 16:55 → 4 NORTH 19:08 → 1 WEST ICU 10-13 20:00 → 4 NORTH 10-14 16:36 → 1 WEST ICU 10-28 08:29 → 4 NORTH 10-30 21:37
PROVIDERS: ADMIT Internal Medicine; ATTEND Internal Medicine
PROC: 30233N1 Transfusion of Nonautologous Red Blood Cells into Peripheral Vein, Percutaneous Approach (ICD-10-PCS; 2016-09-26)
PROC: 0DQ80ZZ Repair Small Intestine, Open Approach (ICD-10-PCS; 2016-09-26)
PROC: 02HV33Z Insertion of Infusion Device into Superior Vena Cava, Percutaneous Approach (ICD-10-PCS; 2016-09-29)
PROC: 057B3ZZ Dilation of Right Basilic Vein, Percutaneous Approach (ICD-10-PCS; principal; 2016-10-17)
PROC: 0DN80ZZ Release Small Intestine, Open Approach (ICD-10-PCS; 2016-10-17)
PROC: B51M1ZZ Fluoroscopy of Right Upper Extremity Veins using Low Osmolar Contrast (ICD-10-PCS; 2016-10-17)
DX: K56.60 Unspecified intestinal obstruction (principal); G93.41 Metabolic encephalopathy; J18.9 Pneumonia, unspecified organism; J96.01 Acute respiratory failure with hypoxia; G72.81 Critical illness myopathy; J91.8 Pleural effusion in other conditions classified elsewhere; N39.0 Urinary tract infection, site not specified; K91.89 Other postprocedural complications and disorders of digestive system; N17.9 Acute kidney failure, unspecified; D64.9 Anemia, unspecified; E03.9 Hypothyroidism, unspecified; E11.22 Type 2 diabetes mellitus with diabetic chronic kidney disease; E11.43 Type 2 diabetes mellitus with diabetic autonomic (poly)neuropathy; E78.5 Hyperlipidemia, unspecified; E87.5 Hyperkalemia; F32.9 Major depressive disorder, single episode, unspecified; G20 Parkinson's disease; G40.909 Epilepsy, unspecified, not intractable, without status epilepticus; I12.9 Hypertensive chronic kidney disease with stage 1 through stage 4 chronic kidney disease, or unspecified chronic kidney disease; I25.2 Old myocardial infarction; I48.0 Paroxysmal atrial fibrillation; B96.1 Klebsiella pneumoniae [K. pneumoniae] as the cause of diseases classified elsewhere; K21.9 Gastro-esophageal reflux disease without esophagitis; K31.84 Gastroparesis; K56.7 Ileus, unspecified; K66.0 Peritoneal adhesions (postprocedural) (postinfection); M10.9 Gout, unspecified; M48.07 Spinal stenosis, lumbosacral region; M65.9 Synovitis and tenosynovitis, unspecified; N18.3 Chronic kidney disease, stage 3 (moderate); Z79.82 Long term (current) use of aspirin; Z80.8 Family history of malignant neoplasm of other organs or systems; Z82.49 Family history of ischemic heart disease and other diseases of the circulatory system; Z88.8 Allergy status to other drugs, medicaments and biological substances; Z88.1 Allergy status to other antibiotic agents; Z85.048 Personal history of other malignant neoplasm of rectum, rectosigmoid junction, and anus; Z85.46 Personal history of malignant neoplasm of prostate; Z86.711 Personal history of pulmonary embolism; Z86.718 Personal history of other venous thrombosis and embolism; Z90.49 Acquired absence of other specified parts of digestive tract; Z90.79 Acquired absence of other genital organ(s); Z93.3 Colostomy status; Z66 Do not resuscitate; Z51.5 Encounter for palliative care
CPT/HCPCS: 35476; 36415; 36569; 36584; 36600; 71010; 71275; 73100; 73120; 74000; 74020; 74022; 74176; 75820; 75978; 77001; 80048; 80053; 80069; 80202; 81001; 82150; 82805; 83605; 83690; 83735; 84100; 84443; 84478; 84484; 84550; 85007; 85027; 85610; 85730; 86850; 86900; 86901; 86920; 87040; 87070; 87086; 87186; 87205; 87641; 93005; 93306; 93971; 94250; 94640; 94660; 94760; 96361; 96374; 96375; 96376; 97004; C1725; C1751; C1769; C9113; J0360; J0610; J1100; J1200; J1650; J1940; J1953; J2020; J2060; J2185; J2248; J2270; J2370; J2405; J2543; J2704; J2710; J2765; J2997; J3010; J3370; J3475; J3490; J7040; J7042; J7120; J7512; J7620; P9016; P9046; Q9967; S0028; 97001; 97003-GO; 97110; 97116; 97530; 97535; 99285-25